=== PATIENT | male | born 1950 | race Caucasian/White ===

== ENCOUNTER 2016-05-13 09:33 | Inpatient (IN) | payer MEDICARE ==
[2016-05-07 15:48] VITALS: BMI 16.2
[~2016-05-13 09:33] MED LIST: DEXAMETHASONE SOD PHOSPHATE 10 MG/ML 1 ML VIAL IV ONE; LACTATED RINGERS 1,000 ML IV SCH; LIDOCAINE 1% 20 ML VIAL (10MG/ML) FOR IV START INTRADERMA PRN; ONDANSETRON 4 MG/2 ML VIAL IVP ONE; SCOPOLAMINE 1.5MG/72HR PATCH TRANSDERM ONE
[2016-05-13 10:24] LABS: Glucose,Whole Blood 110 mg/dL (75-99)
[2016-05-13] MEDS ORDERED: LIDOCAINE 1% INJ 10MG/ML (20 ML MDV) ONE (10:33)
[2016-05-13] MEDS ORDERED: MIDAZOLAM 2 MG/2 ML VIAL ONE (10:33)
[2016-05-13] MEDS ORDERED: fentaNYL (PF) 50 MCG/ML 2 ML AMP ONE (10:33)
[2016-05-13] MEDS ORDERED: HYDROmorphone (PF) 1 MG/ML ONE (10:33)
[2016-05-13] MEDS ORDERED: PROPOFOL 10 MG/ML 20 ML VIAL IV ONE (10:33)
[2016-05-13] MEDS ORDERED: ePHEDrine 50 MG/ML 1 ML AMP ONE (10:33)
--- NOTE | 2016-05-13 11:38 | P.OP ---
Date of Procedure: 05/13/16 Preoperative Diagnosis: Left pxhny-hke-egvr amputation site dehiscence Postoperative Diagnosis: Left kmopq-zfm-wszv amputation site dehiscence Procedure(s) Performed: Revision of left hnjyc-wqo-digp amputation Anesthesia: DILSHADA Surgeon: Molina Dasilva Estimated Blood Loss (ml): 50 Pathology: other (Small section of left femur bone) Condition: stable Disposition: same day Description of Procedure: Patient was brought to the operating room electively for revision of a left cberw-gqg-ldvo amputation he had previous problems after his amputation of infection and he dehisced his wound and there was protrusion of the femur. After long course of antibiotics and drainage of the patient was brought electively today for revision under general anesthesia was prepped and draped and the previous incision is opened down to the level of the femur and we retracted back to subcutaneous tissue musculature off of the femur femur bone was really resected removing about 3 inches of femur and fashioned appropriately anteriorly with a power saw so that it was smooth the wound was irrigated extensively with antibiotics and irrigation and then reclosed in layers with 0 and 2-0 Vicryl sutures and soledad were used on the skin all needle sponge and addition counts were [facility] operative report on patient Baldev Dasilva dictating
[2016-05-13] MEDS: HYDROmorphone 1 MG/ML 1 ML SYRINGE IVP PRN ×5 (11:40→13:43)
[2016-05-13 11:46] VITALS: TEMP 97
[2016-05-13] MEDS: MIDAZOLAM 2 MG/2 ML VIAL IV PRN ×2 (11:50→11:53)
[2016-05-13 12:00] LABS: Glucose,Whole Blood 132 mg/dL (75-99)
[2016-05-13] MEDS: MEPERIDINE 50 MG/ML SYRINGE IVP ONE ×2 (12:25→12:35)
[2016-05-13] MEDS ORDERED: HYDROmorphone 1 MG/ML 1 ML SYRINGE IVP ONE (13:11)
[2016-05-13 14:21] VITALS: BP 139/72; PULSE 88; RESP 20
--- NOTE | 2016-07-03 09:52 | P.DS ---
Providers Date of admission: 05/13/16 09:33 Attending physician: Molina Dasilva Primary care physician: Fidencio Barrientos [facility] Course: FINAL DIAGNOSIS: 1.[Left wmawh-svv-okvo amputation site dehiscence] 2.[History of gangrene left below the knee stump, nonhealing ulcer to his left stump] 3.[Diabetes mellitus type 2] 4.[Peripheral vascular disease, status post multiple lower extremity stents] 5.[Coronary artery disease, history of myocardial infarction in 2003] 6.[Chronic obstructive pulmonary disease] 7.[Hypertension] 8.[Osteoarthritis] 9.[Nicotine dependence] 10.[Gastroesophageal reflux disease] 11.[Depression] 12.[Chronic pain syndrome] PRINCIPAL PROCEDURE: 1.[ReVision of left zfjba-zyx-qjwp amputation] HISTORY OF PRESENT ILLNESS: [This is a 65-year-old gentleman who is followed by Dr. Fidencio Barrientos on an outpatient basis. On 03/03/2016 the patient underwent elective left fiexr-cbd-tbue amputation. During his recovery from the left qtyxr-wca-bzui amputation the patient developed a dehiscence and infection to his left stump site. The patient underwent a long course of antibiotics and drainage to his left stump. Subsequently it was discussed and recommended to the patient he undergo an elective revision of his amputation site.] HOSPITAL COURSE:[The patient was admitted to the hospital after obtaining consent underwent elective revision of his left above the knee amputation site. The patient was recovered and subsequently discharged from the hospital with further wound care instructions.] COMPLICATIONS: [There were no postoperative complications.] DISCHARGE INSTRUCTIONS: 1. Daily dressing changes as prior to surgery. 2. Call Dr. Arreaga for fever greater than 10 1F, redness. 3. [facility]. FOLLOW-UP APPOINTMENTS: 1.[With Dr. Arreaga on 05/21/2016 at 9:45 AM] Plan - Discharge Summary Discharge Medication List Aspirin 81 mg PO DAILY 01/14/14 [History] DULoxetine HCL [Cymbalta] 60 mg PO W/SUPPER 01/14/14 [History] Gabapentin [Neurontin] 300 mg PO TID 01/14/14 [History] Lisinopril [Prinivil] 20 mg PO QAM 01/14/14 [History] metFORMIN HCL [Glucophage] 500 mg PO BID 01/14/14 [History] ALPRAZolam [Xanax] 1 mg PO DAILY PRN 04/02/15 [History] B Complex-Vit C-Vit E-Zinc [Z-Bec] 1 tab PO DAILY 04/02/15 [History] Melatonin 10 mg PO HS PRN 04/02/15 [History] Meloxicam [Mobic] 15 mg PO DAILY 04/02/15 [History] Omeprazole [PriLOSEC] 20 mg PO BID 04/02/15 [History] Wheat Dextrin [Benefiber] 1 pack PO DAILY PRN 04/02/15 [History] Albuterol Sulfate [Proair Hfa] 1 - 2 puff INHALATION RT-Q6H PRN 06/27/15 [ History] Hydrocodone/Acetaminophen [[place] 10-325] 1 tab PO Q6H PRN 06/27/15 [History] Ergocalciferol [Vitamin D2 (DRISDOL)] 50,000 unit PO TU 01/13/16 [History] Morphine Sulfate [Ms Contin] 30 mg PO Q8HR 01/13/16 [History] amLODIPine [Norvasc] 5 mg PO QAM tab 03/06/16 [Rx] Amoxic-Pot Clav 875-125Mg [Augmentin 875-125] 1 tab PO Q12HR 04/20/16 [History] Follow up Appointment(s)/Referral(s): Bolivar Arreaga DO [Doctor of Osteopathic Medicine] - 05/21/16 9:45 am Patient Instructions/Handouts: *Surgery [facility] - (Anesthesia) Discharge Instructions Outpatient Surgery Activity/Diet/Wound Care/Special Instructions: PT TO CONTINUE DAILY DRESSING CHANGES PRIOR TO SURGERY. NOTIFY ANY FEVER GREATER THAN 101,REDDNESS. PT ALREADY HAS NURSE FROM [facility] CHECKING WOUND. Discharge Disposition: HOME SELF-CARE
== END 2016-05-13 14:33 | disposition home or self-care (01) | DRG 476 ==
LOC: 2ORMAIN 09:33 → EDSTATUS 10:30
PROVIDERS: ADMIT Thoracic Surgery (Cardiothoracic Vascular Surgery); ATTEND Thoracic Surgery (Cardiothoracic Vascular Surgery)
PROC: 0Y6D0Z3 Detachment at Left Upper Leg, Low, Open Approach (ICD-10-PCS; principal; 2016-05-13 10:30)
DX: T87.81 Dehiscence of amputation stump (principal); J44.9 Chronic obstructive pulmonary disease, unspecified; E11.51 Type 2 diabetes mellitus with diabetic peripheral angiopathy without gangrene; I10 Essential (primary) hypertension; G89.4 Chronic pain syndrome; F32.9 Major depressive disorder, single episode, unspecified; M19.90 Unspecified osteoarthritis, unspecified site; I25.10 Atherosclerotic heart disease of native coronary artery without angina pectoris; I25.2 Old myocardial infarction; K21.9 Gastro-esophageal reflux disease without esophagitis; F17.200 Nicotine dependence, unspecified, uncomplicated; F12.90 Cannabis use, unspecified, uncomplicated; Z79.2 Long term (current) use of antibiotics; Z88.1 Allergy status to other antibiotic agents; Z79.84 Long term (current) use of oral hypoglycemic drugs; Z79.891 Long term (current) use of opiate analgesic; Z79.899 Other long term (current) drug therapy; Z95.820 Peripheral vascular angioplasty status with implants and grafts; Z86.19 Personal history of other infectious and parasitic diseases
CPT/HCPCS: 87070; 87075; 87205; 88307; 88311

== ENCOUNTER 2018-06-13 13:05 | Inpatient (IN) | payer MEDICARE ==
[2018-06-13] MEDS ORDERED: SODIUM CHLORIDE 0.9% 1,000 ML IV STA (13:39)
[2018-06-13] MEDS ORDERED: VANCOMYCIN IV PER PHARMACY 1 EACH MISC MISCELLANE PRN ×2 (14:03→16:51)
[2018-06-13] MEDS ORDERED: VANCOMYCIN 1,000 MG in SODIUM CHLORIDE 0.9% 250 ML IVPB STA (14:07)
[2018-06-13] MEDS ORDERED: ceFAZolin 1,000 MG in DEXTROSE/WATER 1 50ML.BAG IVPB STA (14:10)
--- NOTE | 2018-06-13 14:56 | ED ---
General Adult HPI - General Chief complaint: Skin/Abscess/Foreign Body Stated complaint: abscess on buttocks Time Seen by Provider: 06/13/18 13:38 Source: patient, RN notes reviewed, old records reviewed Mode of arrival: wheelchair Limitations: no limitations, physical limitation - History of Present Illness Initial comments: 68-year-old male patient with past medical history of hypertension, type 2 diabetes, fournies gangrene, L below knee amputation presents to ED with abscess on left gluteal region. Patient is this ongoing for approximately one week. Patient states that his gun much larger within the past week. Patient states that he has not had any nausea vomiting or diarrhea, fevers or chills. Patient denies any chest pain, shortness of breath, abdominal pain. Systemic: Pt denies fatigue, myalgia, fever/chills, rash. Pt denies weakness, night sweats, weight loss. Neuro: Pt denies headache, visual disturbances, syncope or pre-syncope. HEENT: Pt denies ocular discharge or irritation, otalgia, rhinorrhea, pharyngitis or notable lymphadenopathy. Cardiopulmonary: Pt denies chest pain, SOB, heart palpitations, dyspnea on exertion. Abdominal/GI: Pt denies abdominal pain, n/v/d. : Pt denies dysuria, burning w/ urination, frequency/urgency. Denies new onset urinary or bowel incontinence. MSK: Pt denies myalgia, loss of strength or function in extremities. Neuro: Pt denies new onset weakness, paresthesias. - Related Data Home Medications Medication Instructions Recorded Confirmed Aspirin 81 mg PO DAILY 01/14/14 06/13/18 DULoxetine HCL [Cymbalta] 60 mg PO W/SUPPER 01/14/14 06/13/18 Gabapentin [Neurontin] 300 mg PO TID 01/14/14 06/13/18 Lisinopril [Prinivil] 20 mg PO QAM 01/14/14 06/13/18 metFORMIN HCL [Glucophage] 500 mg PO BID 01/14/14 06/13/18 ALPRAZolam [Xanax] 1 mg PO HS PRN 04/02/15 06/13/18 B Complex-Vit C-Vit E-Zinc [Z-Bec] 1 tab PO DAILY 04/02/15 06/13/18 Omeprazole [PriLOSEC] 20 mg PO BID 04/02/15 06/13/18 Hydrocodone/Acetaminophen [[place] 1 tab PO Q6H PRN 06/27/15 06/13/18 10-325] Escitalopram [Lexapro] 10 mg PO DAILY 06/13/18 06/13/18 L.acidoph,Paracasei, B.lactis 1 cap PO DAILY 06/13/18 06/13/18 [Probiotic] Pantoprazole Sodium [Protonix] 40 mg PO DAILY 06/13/18 06/13/18 Simethicone [Gas-X] 125 mg PO DAILY PRN 06/13/18 06/13/18 amLODIPine [Norvasc] 5 mg PO DAILY 06/13/18 06/13/18 buPROPion XL [Wellbutrin Xl] 150 mg PO DAILY 06/13/18 06/13/18 fentaNYL 100MCG/HR PATCH 100 mcg TRANSDERM Q72H 06/13/18 06/13/18 [Duragesic 100MCG/HR] Allergies Allergy/AdvReac Type Severity Reaction Status Date / Time azithromycin [From Zithromax] Allergy Rash/Hives Verified 06/13/18 13:50 Review of Systems ROS Statement: Those systems with pertinent positive or pertinent negative responses have been documented in the HPI. ROS Other: All systems not noted in ROS Statement are negative. Past Medical History Past Medical History: COPD, Diabetes Mellitus, Hypertension, Myocardial Infarction (NM), Osteoarthritis (OA), Vascular Disorder Additional Past Medical History / Comment(s): hx migraines, hx shingles,"flesh eatting bacterial infection to scrotom" 03/2015, chronic back pain, lt. 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 left testicle removed. heart stent x1 Past Anesthesia/Blood Transfusion Reactions: No Reported Reaction Date of Last Stent Placement:: 2006 Past Psychological History: Depression Smoking Status: Current every day smoker Past Alcohol Use History: None Reported Past Drug Use History: Marijuana - Past Family History Sister(s) Family Medical History: Cancer Additional Family Medical History / Comment(s): double mastectomy, still surviving Father Family Medical History: No Reported History Mother Family Medical History: No Reported History Additional Family Medical History / Comment(s): hpoglycemia General Exam - General Exam Comments Initial Comments: Constitutional: NAD, AOX3, Pt has pleasant affect. HEENT: NC/AT, trachea midline, neck supple, no lymphadenopathy. Posterior pharynx non erythematous, without exudates. External ears appear normal, without discharge. Mucous membranes moist. Eyes PERRLA, EOM intact. There is no scleral icterus. No pallor noted. Cardiopulmonary: RRR, no murmurs, rubs or gallops, no JVD noted. Lungs CTAB in anterior and posterior michel. No peripheral edema. Abdominal exam: Abdomen soft and non-distended. Abdomen non-tender to palpation in all 4 quadrants. Bowel sounds active in LLQ. No hepatosplenomegaly. No ecchymosis Neuro: CN II-XII grossly intact. No nuchal rigidity. MSK: left gluteal region approximately 5x5cm area of erythema, tenderness to palpation, no real area or induration or fluctuance. Limitations: no limitations, physical limitation Course Vital Signs 06/13/18 06/13/18 06/13/18 13:19 15:55 17:06 Temperature 99.3 F 98.6 F Pulse Rate 106 H 95 94 Respiratory 18 16 16 Rate Blood Pressure 145/70 145/50 146/80 O2 Sat by Pulse 95 95 93 L Oximetry 06/13/18 18:53 Temperature Pulse Rate 101 H Respiratory 16 Rate Blood Pressure 146/50 O2 Sat by Pulse 93 L Oximetry Medical Decision Making - Medical Decision Making 68-year-old male patient with past medical history of hypertension, type 2 diabetes, fournies gangrene, L below knee amputation presents to ED with abscess on left gluteal region. Patient is this ongoing for approximately one week. Patient states that his gun much larger within the past week. Patient states that he has not had any nausea vomiting or diarrhea, fevers or chills. Patient denies any chest pain, shortness of breath, abdominal pain. Pt VSS, afebrile. PHysical exam displayed: Left gluteal region approximately 5x5cm area of erythema, tenderness to palpation, no real area or induration or fluctuance. Laboratory investigations revealed leukocytosis of 20.7. CMP non-impressive. Lactic acid within normal limits. UA negative. CT of pelvis displayed a likely abscess measuring 6 by 2 x 2 centimeters. Patient administered 1 g of Cefzil and. Patient then started on Unasyn and vancomycin. Patient to be admitted for further evaluation and surgery consult. Case discussed with Dr. Goncalves. - Lab Data Result diagrams: 06/13/18 14:00 06/13/18 14:00 Lab Results 06/13/18 06/13/18 06/13/18 Range/Units 14:00 14:00 16:10 WBC 22.7 H (3.8-10.6) k/uL RBC 4.50 (4.30-5.90) m/uL Hgb 11.5 L (13.0-17.5) gm/dL Hct 36.8 L (39.0-53.0) % MCV 81.7 (80.0-100.0) fL MCH 25.6 (25.0-35.0) pg MCHC 31.4 (31.0-37.0) g/dL RDW 17.3 H (11.5-15.5) % Plt Count 414 (150-450) k/uL Neutrophils % 91 % Lymphocytes % 3 % Monocytes % 5 % Eosinophils % 0 % Basophils % 0 % Neutrophils # 20.7 H (1.3-7.7) k/uL Lymphocytes # 0.6 L (1.0-4.8) k/uL Monocytes # 1.1 H (0-1.0) k/uL Eosinophils # 0.0 (0-0.7) k/uL Basophils # 0.0 (0-0.2) k/uL Hypochromasia Moderate Anisocytosis Slight Microcytosis Slight Sodium 134 L (137-145) mmol/L Potassium 4.7 (3.5-5.1) mmol/L Chloride 98 (98-107) mmol/L Carbon Dioxide 26 (22-30) mmol/L Anion Gap 10 mmol/L BUN 38 H (9-20) mg/dL Creatinine 0.78 (0.66-1.25) mg/dL Est GFR (CKD-EPI)AfAm >90 (>60 ml/min/1.73 sqM) Est GFR (CKD-EPI)NonAf >90 (>60 ml/min/1.73 sqM) Glucose 106 H (74-99) mg/dL Plasma Lactic Acid Miek (0.7-2.0) mmol/L Calcium 8.9 (8.4-10.2) mg/dL Total Bilirubin 0.7 (0.2-1.3) mg/dL AST 16 L (17-59) U/L ALT 22 (21-72) U/L Alkaline Phosphatase 75 (38-126) U/L Total Protein 6.9 (6.3-8.2) g/dL Albumin 3.5 (3.5-5.0) g/dL Urine Color Yellow Urine Appearance Clear (Clear) Urine pH 5.0 (5.0-8.0) Ur Specific [place] 1.019 (1.001-1.035) Urine Protein Trace H (Negative) Urine Glucose (UA) Negative (Negative) Urine Ketones Negative (Negative) Urine Blood Negative (Negative) Urine Nitrite Negative (Negative) Urine Bilirubin Negative (Negative) Urine Urobilinogen <2.0 (<2.0) mg/dL Ur Leukocyte Esterase Negative (Negative) 06/13/18 Range/Units 17:10 WBC (3.8-10.6) k/uL RBC (4.30-5.90) m/uL Hgb (13.0-17.5) gm/dL Hct (39.0-53.0) % MCV (80.0-100.0) fL MCH (25.0-35.0) pg MCHC (31.0-37.0) g/dL RDW (11.5-15.5) % Plt Count (150-450) k/uL Neutrophils % % Lymphocytes % % Monocytes % % Eosinophils % % Basophils % % Neutrophils # (1.3-7.7) k/uL Lymphocytes # (1.0-4.8) k/uL Monocytes # (0-1.0) k/uL Eosinophils # (0-0.7) k/uL Basophils # (0-0.2) k/uL Hypochromasia Anisocytosis Microcytosis Sodium (137-145) mmol/L Potassium (3.5-5.1) mmol/L Chloride (98-107) mmol/L Carbon Dioxide (22-30) mmol/L Anion Gap mmol/L BUN (9-20) mg/dL Creatinine (0.66-1.25) mg/dL Est GFR (CKD-EPI)AfAm (>60 ml/min/1.73 sqM) Est GFR (CKD-EPI)NonAf (>60 ml/min/1.73 sqM) Glucose (74-99) mg/dL Plasma Lactic Acid Mike 0.9 (0.7-2.0) mmol/L Calcium (8.4-10.2) mg/dL Total Bilirubin (0.2-1.3) mg/dL AST (17-59) U/L ALT (21-72) U/L Alkaline Phosphatase (38-126) U/L Total Protein (6.3-8.2) g/dL Albumin (3.5-5.0) g/dL Urine Color Urine Appearance (Clear) Urine pH (5.0-8.0) Ur Specific [place] (1.001-1.035) Urine Protein (Negative) Urine Glucose (UA) (Negative) Urine Ketones (Negative) Urine Blood (Negative) Urine Nitrite (Negative) Urine Bilirubin (Negative) Urine Urobilinogen (<2.0) mg/dL Ur Leukocyte Esterase (Negative) Disposition Clinical Impression: Abscess Disposition: ADMITTED IP TO THIS HOSP Condition: Serious Is patient prescribed a controlled substance at d/c from ED?: No
[2018-06-13 14:57] LABS: Anisocytosis Slight; Basophils % (A) 0 %; Eosinophils % (A) 0 %; HCT 36.8 % (39.0-53.0); HGB 11.5 gm/dL (13.0-17.5); Hypochromasia Moderate; Lymphocytes # (A) 0.6 k/uL (1.0-4.8); Lymphocytes % (A) 3 %; MCH 25.6 pg (25.0-35.0); MCHC 31.4 g/dL (31.0-37.0); MCV 81.7 fL (80.0-100.0); Mean Platelet Volume 7.3; Microcytosis Slight; Monocytes # (A) 1.1 k/uL (0-1.0); Monocytes % (A) 5 %; Neutrophils # (A) 20.7 k/uL (1.3-7.7); Neutrophils % (A) 91 %; Platelet Count 414 k/uL (150-450); RDW 17.3 % (11.5-15.5); WBC 22.7 k/uL (3.8-10.6)
[2018-06-13 15:10] LABS: ALT 22 U/L (21-72); AST 16 U/L (17-59); Albumin 3.5 g/dL (3.5-5.0); Alkaline Phosphatase 75 U/L (38-126); Anion Gap 10 mmol/L; Blood Urea Nitrogen 38 mg/dL (9-20); Calcium 8.9 mg/dL (8.4-10.2); Carbon Dioxide 26 mmol/L (22-30); Chloride 98 mmol/L (98-107); Glucose 106 mg/dL (74-99); Potassium 4.7 mmol/L (3.5-5.1); Sodium 134 mmol/L (137-145); Total Bilirubin 0.7 mg/dL (0.2-1.3); Total Protein 6.9 g/dL (6.3-8.2)
--- NOTE | 2018-06-13 16:13 | CT ---
EXAMINATION TYPE: CT pelvis w con DATE OF EXAM: 06/13/2018 COMPARISON: None HISTORY: Left sided buttock swelling CT DLP: 447.1 mGycm Automated exposure control for dose reduction was used. TECHNIQUE: Helical acquisition of images from the lung bases through the pelvis have been completed. CONTRAST: Performed without Oral Contrast and with IV Contrast, patient injected with 100 mL of Isovue 300. FINDINGS: There is abnormal increased soft tissue attenuation at the level of the posterior pelvis, l eft gluteal region, some increased subcutaneous fat density with suggestion of an oval area of lower attenuation measuring approximately 6 x 2 x 2 cm a personal financial representative an underlying phlegmon or abscess c oursing posterior and inferior to the left ischial tuberosity. AORTA: No significant abnormality is appreciated. Dense iliac calcifications are present. REPRODUCTIVE ORGANS: Prostate shows associated calcifications BOWEL: No significant abnormality is seen. FREE AIR: No Free Air visible. ASCITES: None visible. PELVIC ADENOPATHY: None visualized. RETROPERITONEAL ADENOPATHY: No Retroperitoneal Adenopathy visible. URINARY BLADDER: No significant abnormality is seen. OSSEOUS STRUCTURES: No significant abnormality is seen. IMPRESSION: SUSPECT UNDERLYING ABSCESS, PHLEGMON DESCRIBED.
[2018-06-13 16:23] LABS: Appearance,Urine Clear (Clear); Bilirubin,Urine Negative (Negative); Blood,Urine Negative (Negative); Color,Urine Yellow; Glucose,Urine (UA) Negative (Negative); Ketones,Urine Negative (Negative); Leukocyte Esterase,Urine Negative (Negative); Nitrite,Urine Negative (Negative); Protein,Urine Trace (Negative); Specific Gravity,Urine 1.019 (1.001-1.035); Urobilinogen,Urine <2.0 mg/dL (<2.0)
[2018-06-13] MEDS ORDERED: NALOXONE 0.4 MG/ML 1 ML VIAL IV PRN (17:19)
[2018-06-13] MEDS ORDERED: ACETAMINOPHEN TAB 325 MG TAB PO PRN (17:19)
[2018-06-13] MEDS ORDERED: IBUPROFEN 400 MG TAB PO PRN (17:19)
[2018-06-13] MEDS: AMPICILLIN-SULBACTAM 3 GM in SODIUM CHLORIDE 0.9% 100 ML IVPB SCH ×2 (18:03→23:22)
[2018-06-13] MEDS ORDERED: HYDROcodone/APAP 10-325MG 1 EACH TAB PO ONE (18:49)
[2018-06-13] MEDS: VANCOMYCIN 1,000 MG in SODIUM CHLORIDE 0.9% 250 ML IVPB STA ×2 (18:52→19:52)
[2018-06-13 21:00] LABS: Glucose,Whole Blood 109 mg/dL (75-99)
[2018-06-13] MEDS: metFORMIN 500 MG TAB PO SCH (21:23)
[2018-06-13] MEDS: DULoxetine HCL 60 MG CAPSULE.DR PO SCH (21:23)
[2018-06-13] MEDS: HYDROmorphone 0.5 MG/0.5 ML SYRINGE IVP PRN (21:23)
[2018-06-13] MEDS: GABAPENTIN 300 MG CAP PO SCH (21:23)
[2018-06-13] MEDS: NICOTINE 21MG/24HR PATCH TRANSDERM SCH (21:23)
[2018-06-13] MEDS: CLOTRIMAZOLE 1% CREAM 15 GM TUBE TOPICAL SCH (22:14)
[2018-06-14] MEDS: VANCOMYCIN 1,000 MG in SODIUM CHLORIDE 0.9% 250 ML IVPB SCH ×3 (00:45→17:49)
[2018-06-14 07:32] LABS: Glucose,Whole Blood 105 mg/dL (75-99)
[2018-06-14] MEDS: metFORMIN 500 MG TAB PO SCH ×2 (08:02→17:50)
[2018-06-14] MEDS: AMPICILLIN-SULBACTAM 3 GM in SODIUM CHLORIDE 0.9% 100 ML IVPB SCH ×3 (08:03→23:04)
[2018-06-14] MEDS: HYDROcodone/APAP 10-325MG 1 EACH TAB PO PRN ×2 (08:04→20:06)
[2018-06-14] MEDS: amLODIPine 5 MG TAB PO SCH (08:04)
[2018-06-14] MEDS: LISINOPRIL 20 MG TAB PO SCH (08:04)
[2018-06-14] MEDS: NICOTINE 21MG/24HR PATCH TRANSDERM SCH (08:04)
[2018-06-14] MEDS: PANTOPRAZOLE 40 MG TABLET PO SCH (08:04)
[2018-06-14] MEDS: ASPIRIN 81 MG PO SCH (08:04)
[2018-06-14] MEDS: ESCITALOPRAM 10 MG TAB PO SCH (08:04)
[2018-06-14] MEDS: GABAPENTIN 300 MG CAP PO SCH ×3 (08:06→21:04)
[2018-06-14] MEDS: buPROPion XL 150 MG TAB.ER.24H PO SCH (08:07)
[2018-06-14] MEDS: CLOTRIMAZOLE 1% CREAM 15 GM TUBE TOPICAL SCH ×2 (08:19→21:19)
[2018-06-14] MEDS ORDERED: NON-FORMULARY DRUG (B Complex-Vit C-Vit E-Zinc 1 TAB) PO SCH (09:00)
[2018-06-14 09:02] LABS: Anisocytosis Slight; Basophils % (A) 0 %; Eosinophils # (A) 0.1 k/uL (0-0.7); Eosinophils % (A) 0 %; HCT 36.1 % (39.0-53.0); Hypochromasia Moderate; Lymphocytes # (A) 0.9 k/uL (1.0-4.8); Lymphocytes % (A) 7 %; MCH 25.1 pg (25.0-35.0); MCHC 30.4 g/dL (31.0-37.0); MCV 82.5 fL (80.0-100.0); Mean Platelet Volume 7.1; Monocytes # (A) 0.7 k/uL (0-1.0); Monocytes % (A) 5 %; Neutrophils # (A) 12.2 k/uL (1.3-7.7); Neutrophils % (A) 87 %; Platelet Count 385 k/uL (150-450); RBC 4.38 m/uL (4.30-5.90); RDW 17.1 % (11.5-15.5); WBC 14.1 k/uL (3.8-10.6)
[2018-06-14 09:26] LABS: ALT 25 U/L (21-72); AST 13 U/L (17-59); Alkaline Phosphatase 64 U/L (38-126); Anion Gap 5 mmol/L; Blood Urea Nitrogen 26 mg/dL (9-20); Calcium 8.9 mg/dL (8.4-10.2); Carbon Dioxide 30 mmol/L (22-30); Chloride 103 mmol/L (98-107); Glucose 98 mg/dL (74-99); Potassium 4.9 mmol/L (3.5-5.1); Sodium 138 mmol/L (137-145); Total Bilirubin 0.4 mg/dL (0.2-1.3); Total Protein 6.1 g/dL (6.3-8.2)
[2018-06-14] MEDS: HYDROmorphone 0.5 MG/0.5 ML SYRINGE IVP PRN ×2 (09:44→21:04)
--- NOTE | 2018-06-14 10:34 | P.HPIM ---
History of Present Illness H&P Date: 06/14/18 Chief Complaint: Possible left gluteal abscess This is a 68-year-old male with a known history of hypertension, diabetes, peripheral vascular disease with a left below-knee amputation, myocardial infarction, coronary artery disease with previous cardiac stents, COPD, nicotine dependence, necrotizing fasciitis of the left groin and scrotum with left orchiectomy. Patient reports he is mostly wheelchair bound and does get pressure sores on his buttocks area. Reports the left gluteal area had a small red bump noted about a week ago. And over the weekend the size continued to increase and became sore. He denies any injury to the area there's been no drainage or cuts noted. He presented to the ER for further evaluation and treatment white count elevated at 22.7 BUN 38 lactic acid normal at 0.9 was given a dose of IV Kefzol and then started on IV Unasyn and IV vancomycin in the ER. Infectious disease and surgical service were consulted. Patient did have a computed tomography scan of the pelvis showing suspected underlying abscess or phlegmon. CAT scan shows abnormal increased soft tissue attenuation at the level of the posterior pelvis, left gluteal region, some increased subcutaneous fat density with suggestion of an oval area of the lower attenuation measuring approximate 6 x 2 x 2 cm representing an underlying phlegmon or abscess coursing posterior and inferior to the left ischial tuberosity. Patient also had evidence of urinary retention and Russo catheter was inserted. He had retained 800. Patient reports low-grade temps of 99 at home as well as chills. Denies any nausea or vomiting, bowel movement changes, denies any chest pain or short ness of breath. Denies any burning with urination. Review of Systems Please refer to HPI otherwise unremarkable Past Medical History Past Medical History: COPD, Diabetes Mellitus, Hypertension, Myocardial Infarction ([place]), Osteoarthritis ([place]), Vascular Disorder Additional Past Medical History / Comment(s): hx migraines, hx shingles,"flesh eatting bacterial infection to scrotom" 03/2015, chronic back pain, lt. knee wound Last Myocardial Infarction Date:: 2003 History of Any Multi-Drug Resistant Organisms: MRSA Date of last positivie culture/infection: 04/02/16 MDRO Source:: LT KNEE WOUND Past Surgical History: Heart Catheterization With Stent, Orthopedic Surgery Additional Past Surgical History / Comment(s): STENTS TO LEFT GROIN, LEFT BELOW THE KNEE AMPUTATION, unsuccessful revascularization left leg, shoulder surgery, surgical debridement of necrotic tissue left scrotal area, LT AKA 03/03/16. left testicle removed. heart stent x1 Past Anesthesia/Blood Transfusion Reactions: No Reported Reaction Date of Last Stent Placement:: 2006 Past Psychological History: Depression Smoking Status: Current every day smoker Past Alcohol Use History: None Reported Past Drug Use History: Marijuana - Past Family History Sister(s) Family Medical History: Cancer Additional Family Medical History / Comment(s): double mastectomy, still surviving Father Family Medical History: No Reported History Mother Family Medical History: No Reported History Additional Family Medical History / Comment(s): hpoglycemia Medications and Allergies Home Medications Medication Instructions Recorded Confirmed Type Aspirin 81 mg PO DAILY 01/14/14 06/13/18 History DULoxetine HCL [Cymbalta] 60 mg PO W/SUPPER 01/14/14 06/13/18 History Gabapentin [Neurontin] 300 mg PO TID 01/14/14 06/13/18 History Lisinopril [Prinivil] 20 mg PO QAM 01/14/14 06/13/18 History metFORMIN HCL [Glucophage] 500 mg PO BID 01/14/14 06/13/18 History ALPRAZolam [Xanax] 1 mg PO HS PRN 04/02/15 06/13/18 History B Complex-Vit C-Vit E-Zinc [Z-Bec] 1 tab PO DAILY 04/02/15 06/13/18 History Omeprazole [PriLOSEC] 20 mg PO BID 04/02/15 06/13/18 History Hydrocodone/Acetaminophen [[place] 1 tab PO Q6H PRN 06/27/15 06/13/18 History 10-325] Escitalopram [Lexapro] 10 mg PO DAILY 06/13/18 06/13/18 History L.acidoph,Paracasei, B.lactis 1 cap PO DAILY 06/13/18 06/13/18 History [Probiotic] Pantoprazole Sodium [Protonix] 40 mg PO DAILY 06/13/18 06/13/18 History Simethicone [Gas-X] 125 mg PO DAILY PRN 06/13/18 06/13/18 History amLODIPine [Norvasc] 5 mg PO DAILY 06/13/18 06/13/18 History buPROPion XL [Wellbutrin Xl] 150 mg PO DAILY 06/13/18 06/13/18 History fentaNYL 100MCG/HR PATCH 100 mcg TRANSDERM Q72H 06/13/18 06/13/18 History [Duragesic 100MCG/HR] Allergies Allergy/AdvReac Type Severity Reaction Status Date / Time azithromycin [From Zithromax] Allergy Rash/Hives Verified 06/13/18 13:50 Physical Exam Vitals: Vital Signs Temp Pulse Pulse Resp BP BP Pulse Ox 06/14/18 06:32 97.9 F 66 18 136/72 91 L 06/13/18 23:00 98.0 F 69 18 127/59 91 L 06/13/18 19:46 97.1 F L 86 18 126/60 93 L 06/13/18 18:53 101 H 16 146/50 93 L 06/13/18 17:06 94 16 146/80 93 L 06/13/18 15:55 98.6 F 95 16 145/50 95 06/13/18 13:19 99.3 F 106 H 18 145/70 95 Intake and Output 06/13/18 06/14/18 06/14/18 22:59 06:59 14:59 Intake Total 250 0 Output Total 1110 Balance -860 0 Intake: Oral 250 0 Output: Urine 1110 Uretheral (Russo) 1110 Other: # Voids 1 Head normocephalic Neck supple Lungs mild wheezing that improved with cough Heart regular rate and rhythm S1-S2, no rub or gallop Abdomen is soft nontender nondistended positive bowel sounds no hepatosplenomegaly Extremities no edema. Left below the knee amputation Neuro alert and orientated to 3 Skin left gluteal area is red there is a firm area about 5 cm in size. No rash or lesions or cuts noted. Tender with palpation patient also has some redness on the right gluteal area as well Results CBC & Chem 7: 06/14/18 08:10 06/14/18 08:46 Labs: Abnormal Lab Results - Last 24 Hours (Table) 06/13/18 06/13/18 06/13/18 Range/Units 14:00 14:00 16:10 WBC 22.7 H (3.8-10.6) k/uL Hgb 11.5 L (13.0-17.5) gm/dL Hct 36.8 L (39.0-53.0) % MCHC (31.0-37.0) g/dL RDW 17.3 H (11.5-15.5) % Neutrophils # 20.7 H (1.3-7.7) k/uL Lymphocytes # 0.6 L (1.0-4.8) k/uL Monocytes # 1.1 H (0-1.0) k/uL Sodium 134 L (137-145) mmol/L BUN 38 H (9-20) mg/dL Glucose 106 H (74-99) mg/dL POC Glucose (mg/dL) (75-99) mg/dL AST 16 L (17-59) U/L Total Protein (6.3-8.2) g/dL Albumin (3.5-5.0) g/dL Urine Protein Trace H (Negative) 06/13/18 06/14/18 06/14/18 Range/Units 20:54 07:16 08:10 WBC 14.1 H (3.8-10.6) k/uL Hgb 11.0 L (13.0-17.5) gm/dL Hct 36.1 L (39.0-53.0) % MCHC 30.4 L (31.0-37.0) g/dL RDW 17.1 H (11.5-15.5) % Neutrophils # 12.2 H (1.3-7.7) k/uL Lymphocytes # 0.9 L (1.0-4.8) k/uL Monocytes # (0-1.0) k/uL Sodium (137-145) mmol/L BUN (9-20) mg/dL Glucose (74-99) mg/dL POC Glucose (mg/dL) 109 H 105 H (75-99) mg/dL AST (17-59) U/L Total Protein (6.3-8.2) g/dL Albumin (3.5-5.0) g/dL Urine Protein (Negative) 06/14/18 Range/Units 08:46 WBC (3.8-10.6) k/uL Hgb (13.0-17.5) gm/dL Hct (39.0-53.0) % MCHC (31.0-37.0) g/dL RDW (11.5-15.5) % Neutrophils # (1.3-7.7) k/uL Lymphocytes # (1.0-4.8) k/uL Monocytes # (0-1.0) k/uL Sodium (137-145) mmol/L BUN 26 H (9-20) mg/dL Glucose (74-99) mg/dL POC Glucose (mg/dL) (75-99) mg/dL AST 13 L (17-59) U/L Total Protein 6.1 L (6.3-8.2) g/dL Albumin 3.0 L (3.5-5.0) g/dL Urine Protein (Negative) Thrombosis Risk Factor Assmnt - Choose All That Apply Any of the Below Risk Factors Present?: Yes Each Factor Represents 1 point: Abnormal pulmonary function (COPD), Acute [place] Other Risk Factors: Yes Each Risk Factor Represents 2 Points: Age 61-74 years Other congenital or acquired thrombophilia - If yes, enter type in comment: No Thrombosis Risk Factor Assessment Total Risk Factor Score: 4 Thrombosis Risk Factor Assessment Level: Moderate Risk Assessment and Plan Assessment: 1. Possible left gluteal abscess or phlegmon noted on computed tomography scan of pelvis. Patient currently on Unasyn and IV vancomycin. white count elevated at 22.7. Infectious disease and surgical service consulted. Blood culture pending 2. Urinary retention: Patient has Russo catheter inserted 3. Essential hypertension 4. COPD: Uses albuterol inhaler at home will add nebulizer treatments BID during hospitalization. check chest x-ray 5. Diabetes mellitus type 2 continue metformin and add sliding scale coverage. Check A1c 6. History of coronary artery disease and cardiac stents 7. History of myocardial infarction 8. History of peripheral vascular disease with left below the knee amputation 9. History of necrotizing fasciitis of the groin and scrotal area requiring left orchiectomy 10. Nicotine dependence: Discussed smoking cessation for greater than 3 minutes. Patient currently on Wellbutrin and nicotine patch GI prophylaxis Protonix and DVT prophylaxis SCDs. We will hold off on anticoagulation for DVT prophylaxis due to patient possibly having surgery Time with Patient: Greater than 30 (Greater than 50% of the total time spent in counseling and coordination of care.I performed an examination of the patient and discussed their management with the physician Labor Supervisor. I have reviewed the Physician Labor Supervisor's notes and agree with the documented findings and plan of care)
--- NOTE | 2018-06-14 11:08 | P.GSCN ---
<Hien Song - Last Filed: 06/14/18 11:01> History of Present Illness Consult date: 06/14/18 Reason for Consult: left buttock abscess Requesting physician: Gallo Caldera History of present illness: CHIEF COMPLAINT: Abscess in left gluteal region HISTORY OF PRESENT ILLNESS: 68-year-old male who presented to the emergency room due to increasing pain of his left buttocks. General surgery was consulted for further evaluation. The patient reports last Wednesday he noticed a small soft area on his left buttock. Initially, he did not think much of it but over the past week it has increased in size and has become tender and painful. He denies drainage of the area. He denies injury or trauma to region. He reports feeling feverish at home as well. WBC on admission 22.7. Repeat 14.1. He is on Unasyn and vancomycin. The patient has a history of necrotizing fasciitis of the left groin and scrotum and required left orchiectomy in 2014. Patient also reports having a left [id number] amputation in 2016. He reports he developed a MRSA infection and subsequently had a revision of his amputation to a left AKA. MEDICATIONS: See list. ALLERGIES: See list. SOCIAL HISTORY: Reports marijuana use. REVIEW OF SYSTEMS: CONSTITUTIONAL: Denies fever or chills. HEENT: Denies blurred vision, vision changes, or eye pain. Denies hemoptysis ENDOCRINE: Denies heat or cold intolerance. CARDIOVASCULAR: Denies chest pain or pressure. RESPIRATORY: No shortness of breath. GASTROINTESTINAL: Denies abdominal pain. Denies nausea or vomiting. NEURO: Denies history of seizures. PSYCH: No depression or suicidal ideation HEMATOLOGIC: Denies bleeding disorders. LYMPHATIC: The patient denies any lumps and bumps around the neck. GENITOURINARY: Denies any blood in urine or increased urinary frequency. MUSCULOSKELETAL: Denies myalgias. Denies joint swelling. Denies decreased range of motion beyond patients baseline. SKIN: Denies pruitis. Reports pain and tenderness to mass on left buttock PHYSICAL EXAM: VITAL SIGNS: Currently stable. GENERAL: Well-developed in no acute distress. HEENT: No sclera icterus. Extraocular movements grossly intact. Moist buccal mucosa. Head is atraumatic, normocephalic. Hears conversational speech. No nasal drainage. NECK: Supple without lymphadenopathy. CHEST: Non-labored respirations and equal bilateral excursions. CARDIOVASCULAR: Regular rate with regular rhythm. Palpable 2+ radial pulses. ABDOMEN: Soft. Nondistended. Nontender. MUSCULOSKELETAL: No clubbing, cyanosis or edema. Left AKA. NEUROLOGIC: No focal or lateralizing signs. Cranial nerves II through XII grossly intact. PSYCH: Appropriate affect. Alert and oriented to person, place and time. SKIN: Well perfused. Good skin turgor. Large firm area present to left buttock with surrounding erythema. No drainage noted. Tenderness upon palpation. IMAGING: CT pelvis: Abnormal increased soft tissue attenuation at the level of the posterior pelvis, left gluteal region, some increased subcutaneous fat density with suggestion of an oval area of lower attenuation measuring approximately 6 x 2 x 2 cm representing an underlying phlegmon or abscess coursing posterior and inferior to the left ischial tuberosity ASSESSMENT: 1. Left buttock abscess 2. Leukocytosis PLAN: 1. NPO 2. Patient to undergo I&D of left buttock abscess today with Dr. Luong 3. Continue antibiotics 4. ID on consult 5. Monitor WBC Nurse practitioner note has been reviewed by physician. Signing provider agrees with the documented findings, assessment, and plan of care. Past Medical History Past Medical History: COPD, Diabetes Mellitus, Hypertension, Myocardial Infarction ([place]), Osteoarthritis (OA), Vascular Disorder Additional Past Medical History / Comment(s): hx migraines, hx shingles,"flesh eatting bacterial infection to scrotom" 03/2015, chronic back pain, lt. knee wound Last Myocardial Infarction Date:: 2003 History of Any Multi-Drug Resistant Organisms: MRSA Year Discovered:: 04/02/16 MDRO Source:: LT KNEE WOUND Past Surgical History: Heart Catheterization With Stent, Orthopedic Surgery Additional Past Surgical History / Comment(s): STENTS TO LEFT GROIN, LEFT BELOW THE KNEE AMPUTATION, unsuccessful revascularization left leg, shoulder surgery, surgical debridement of necrotic tissue left scrotal area, LT AKA 03/03/16. left testicle removed. heart stent x1 Past Anesthesia/Blood Transfusion Reactions: No Reported Reaction Date of Last Stent Placement:: 2006 Past Psychological History: Depression Smoking Status: Current every day smoker Past Alcohol Use History: None Reported Past Drug Use History: Marijuana - Past Family History Sister(s) Family Medical History: Cancer Additional Family Medical History / Comment(s): double mastectomy, still surviving Father Family Medical History: No Reported History Mother Family Medical History: No Reported History Additional Family Medical History / Comment(s): hpoglycemia Medications and Allergies Home Medications Medication Instructions Recorded Confirmed Type Aspirin 81 mg PO DAILY 01/14/14 06/13/18 History DULoxetine HCL [Cymbalta] 60 mg PO W/SUPPER 01/14/14 06/13/18 History Gabapentin [Neurontin] 300 mg PO TID 01/14/14 06/13/18 History Lisinopril [Prinivil] 20 mg PO QAM 01/14/14 06/13/18 History metFORMIN HCL [Glucophage] 500 mg PO BID 01/14/14 06/13/18 History ALPRAZolam [Xanax] 1 mg PO HS PRN 04/02/15 06/13/18 History B Complex-Vit C-Vit E-Zinc [Z-Bec] 1 tab PO DAILY 04/02/15 06/13/18 History Omeprazole [PriLOSEC] 20 mg PO BID 04/02/15 06/13/18 History Hydrocodone/Acetaminophen [[place] 1 tab PO Q6H PRN 06/27/15 06/13/18 History 10-325] Escitalopram [Lexapro] 10 mg PO DAILY 06/13/18 06/13/18 History L.acidoph,Paracasei, B.lactis 1 cap PO DAILY 06/13/18 06/13/18 History [Probiotic] Pantoprazole Sodium [Protonix] 40 mg PO DAILY 06/13/18 06/13/18 History Simethicone [Gas-X] 125 mg PO DAILY PRN 06/13/18 06/13/18 History amLODIPine [Norvasc] 5 mg PO DAILY 06/13/18 06/13/18 History buPROPion XL [Wellbutrin Xl] 150 mg PO DAILY 06/13/18 06/13/18 History fentaNYL 100MCG/HR PATCH 100 mcg TRANSDERM Q72H 06/13/18 06/13/18 History [Duragesic 100MCG/HR] Allergies Allergy/AdvReac Type Severity Reaction Status Date / Time azithromycin [From Zithromax] Allergy Rash/Hives Verified 06/13/18 13:50 Surgical - Exam Vital Signs Temp Pulse Resp BP Pulse Ox 99.3 F 106 H 18 145/70 95 06/13/18 13:19 06/13/18 13:19 06/13/18 13:19 06/13/18 13:19 06/13/18 13:19 Results - Labs 06/14/18 08:10 06/14/18 08:46 Abnormal Lab Results - Last 24 Hours (Table) 06/13/18 06/13/18 06/13/18 Range/Units 14:00 14:00 16:10 WBC 22.7 H (3.8-10.6) k/uL Hgb 11.5 L (13.0-17.5) gm/dL Hct 36.8 L (39.0-53.0) % MCHC (31.0-37.0) g/dL RDW 17.3 H (11.5-15.5) % Neutrophils # 20.7 H (1.3-7.7) k/uL Lymphocytes # 0.6 L (1.0-4.8) k/uL Monocytes # 1.1 H (0-1.0) k/uL Sodium 134 L (137-145) mmol/L BUN 38 H (9-20) mg/dL Glucose 106 H (74-99) mg/dL POC Glucose (mg/dL) (75-99) mg/dL AST 16 L (17-59) U/L Total Protein (6.3-8.2) g/dL Albumin (3.5-5.0) g/dL Urine Protein Trace H (Negative) 06/13/18 06/14/18 06/14/18 Range/Units 20:54 07:16 08:10 WBC 14.1 H (3.8-10.6) k/uL Hgb 11.0 L (13.0-17.5) gm/dL Hct 36.1 L (39.0-53.0) % MCHC 30.4 L (31.0-37.0) g/dL RDW 17.1 H (11.5-15.5) % Neutrophils # 12.2 H (1.3-7.7) k/uL Lymphocytes # 0.9 L (1.0-4.8) k/uL Monocytes # (0-1.0) k/uL Sodium (137-145) mmol/L BUN (9-20) mg/dL Glucose (74-99) mg/dL POC Glucose (mg/dL) 109 H 105 H (75-99) mg/dL AST (17-59) U/L Total Protein (6.3-8.2) g/dL Albumin (3.5-5.0) g/dL Urine Protein (Negative) 06/14/18 Range/Units 08:46 WBC (3.8-10.6) k/uL Hgb (13.0-17.5) gm/dL Hct (39.0-53.0) % MCHC (31.0-37.0) g/dL RDW (11.5-15.5) % Neutrophils # (1.3-7.7) k/uL Lymphocytes # (1.0-4.8) k/uL Monocytes # (0-1.0) k/uL Sodium (137-145) mmol/L BUN 26 H (9-20) mg/dL Glucose (74-99) mg/dL POC Glucose (mg/dL) (75-99) mg/dL AST 13 L (17-59) U/L Total Protein 6.1 L (6.3-8.2) g/dL Albumin 3.0 L (3.5-5.0) g/dL Urine Protein (Negative) Diabetes panel 06/13/18 06/14/18 Range/Units 14:00 08:46 Sodium 134 L 138 (137-145) mmol/L Potassium 4.7 4.9 (3.5-5.1) mmol/L Chloride 98 103 (98-107) mmol/L Carbon Dioxide 26 30 (22-30) mmol/L BUN 38 H 26 H (9-20) mg/dL Creatinine 0.78 0.66 (0.66-1.25) mg/dL Glucose 106 H 98 (74-99) mg/dL Calcium 8.9 8.9 (8.4-10.2) mg/dL AST 16 L 13 L (17-59) U/L ALT 22 25 (21-72) U/L Alkaline Phosphatase 75 64 (38-126) U/L Total Protein 6.9 6.1 L (6.3-8.2) g/dL Albumin 3.5 3.0 L (3.5-5.0) g/dL Calcium panel 03/04/19 03/05/19 Range/Units 14:00 08:46 Calcium 8.9 8.9 (8.4-10.2) mg/dL Albumin 3.5 3.0 L (3.5-5.0) g/dL Pituitary panel 06/13/18 06/14/18 Range/Units 14:00 08:46 Sodium 134 L 138 (137-145) mmol/L Potassium 4.7 4.9 (3.5-5.1) mmol/L Chloride 98 103 (98-107) mmol/L Carbon Dioxide 26 30 (22-30) mmol/L BUN 38 H 26 H (9-20) mg/dL Creatinine 0.78 0.66 (0.66-1.25) mg/dL Glucose 106 H 98 (74-99) mg/dL Calcium 8.9 8.9 (8.4-10.2) mg/dL Adrenal panel 06/13/18 06/14/18 Range/Units 14:00 08:46 Sodium 134 L 138 (137-145) mmol/L Potassium 4.7 4.9 (3.5-5.1) mmol/L Chloride 98 103 (98-107) mmol/L Carbon Dioxide 26 30 (22-30) mmol/L BUN 38 H 26 H (9-20) mg/dL Creatinine 0.78 0.66 (0.66-1.25) mg/dL Glucose 106 H 98 (74-99) mg/dL Calcium 8.9 8.9 (8.4-10.2) mg/dL Total Bilirubin 0.7 0.4 (0.2-1.3) mg/dL AST 16 L 13 L (17-59) U/L ALT 22 25 (21-72) U/L Alkaline Phosphatase 75 64 (38-126) U/L Total Protein 6.9 6.1 L (6.3-8.2) g/dL Albumin 3.5 3.0 L (3.5-5.0) g/dL <Ganga Luong - Last Filed: 06/14/18 15:48> History of Present Illness History of present illness: As above. Patient with erythematous tender mass involving the left buttock. CAT scan findings as above. Patient with history of previous MRSA. Options reviewed with the patient. We'll proceed with incision and drainage at this time. Risks of bleeding, infection, wound formation, poor wound healing, osteomyelitis, potential need for additional surgery, progression of infection, and anesthesia related palpitations reviewed. He understands and wishes to proceed. Surgical - Exam Vital Signs Temp Pulse Resp BP Pulse Ox 99.3 F 106 H 18 145/70 95 06/13/18 13:19 06/13/18 13:19 06/13/18 13:19 06/13/18 13:19 06/13/18 13:19 Results - Labs 06/14/18 08:10 06/14/18 08:46 Abnormal Lab Results - Last 24 Hours (Table) 06/13/18 06/13/18 06/14/18 Range/Units 16:10 20:54 07:16 WBC (3.8-10.6) k/uL Hgb (13.0-17.5) gm/dL Hct (39.0-53.0) % MCHC (31.0-37.0) g/dL RDW (11.5-15.5) % Neutrophils # (1.3-7.7) k/uL Lymphocytes # (1.0-4.8) k/uL BUN (9-20) mg/dL POC Glucose (mg/dL) 109 H 105 H (75-99) mg/dL AST (17-59) U/L Total Protein (6.3-8.2) g/dL Albumin (3.5-5.0) g/dL Urine Protein Trace H (Negative) 06/14/18 06/14/18 Range/Units 08:10 08:46 WBC 14.1 H (3.8-10.6) k/uL Hgb 11.0 L (13.0-17.5) gm/dL Hct 36.1 L (39.0-53.0) % MCHC 30.4 L (31.0-37.0) g/dL RDW 17.1 H (11.5-15.5) % Neutrophils # 12.2 H (1.3-7.7) k/uL Lymphocytes # 0.9 L (1.0-4.8) k/uL BUN 26 H (9-20) mg/dL POC Glucose (mg/dL) (75-99) mg/dL AST 13 L (17-59) U/L Total Protein 6.1 L (6.3-8.2) g/dL Albumin 3.0 L (3.5-5.0) g/dL Urine Protein (Negative) Diabetes panel 06/14/18 Range/Units 08:46 Sodium 138 (137-145) mmol/L Potassium 4.9 (3.5-5.1) mmol/L Chloride 103 (98-107) mmol/L Carbon Dioxide 30 (22-30) mmol/L BUN 26 H (9-20) mg/dL Creatinine 0.66 (0.66-1.25) mg/dL Glucose 98 (74-99) mg/dL Calcium 8.9 (8.4-10.2) mg/dL AST 13 L (17-59) U/L ALT 25 (21-72) U/L Alkaline Phosphatase 64 (38-126) U/L Total Protein 6.1 L (6.3-8.2) g/dL Albumin 3.0 L (3.5-5.0) g/dL Calcium panel 06/14/18 Range/Units 08:46 Calcium 8.9 (8.4-10.2) mg/dL Albumin 3.0 L (3.5-5.0) g/dL Pituitary panel 06/14/18 Range/Units 08:46 Sodium 138 (137-145) mmol/L Potassium 4.9 (3.5-5.1) mmol/L Chloride 103 (98-107) mmol/L Carbon Dioxide 30 (22-30) mmol/L BUN 26 H (9-20) mg/dL Creatinine 0.66 (0.66-1.25) mg/dL Glucose 98 (74-99) mg/dL Calcium 8.9 (8.4-10.2) mg/dL Adrenal panel 06/14/18 Range/Units 08:46 Sodium 138 (137-145) mmol/L Potassium 4.9 (3.5-5.1) mmol/L Chloride 103 (98-107) mmol/L Carbon Dioxide 30 (22-30) mmol/L BUN 26 H (9-20) mg/dL Creatinine 0.66 (0.66-1.25) mg/dL Glucose 98 (74-99) mg/dL Calcium 8.9 (8.4-10.2) mg/dL Total Bilirubin 0.4 (0.2-1.3) mg/dL AST 13 L (17-59) U/L ALT 25 (21-72) U/L Alkaline Phosphatase 64 (38-126) U/L Total Protein 6.1 L (6.3-8.2) g/dL Albumin 3.0 L (3.5-5.0) g/dL
--- NOTE | 2018-06-14 11:28 | P.CONS ---
History of Present Illness - Reason for Consult Consult date: 06/14/18 Abscess left gluteal region - History of Present Illness This is a 68-year-old male who gives history that he noticed a soft lump on the left buttocks crease about a week ago. He states it was not very bothersome the first day but by the second day it started becoming painful. Over the following week the area became increasingly painful with swelling and redness. He has not had nausea, vomiting, fever or chills. No shortness of breath. He does state he has a cough with sputum production. He came into the [facility] emergency center for evaluation. He was found to be afebrile, white count 22.7, creatinine 0.78, blood sugar 106, lactic acid 0.9, albumin 3.5. Urinalysis was negative. Blood culture status received. No wound culture has been obtained as there is no drainage. CAT scan of the pelvis with contrast showed suspected abscess or phlegmon in the left gluteal measuring 6 x 2 x 2. Patient was given a dose of and vancomycin and admitted to the [facility] floor and consult was also requested with Dr. Luong. Patient also has extensive history of peripheral vascular disease status post stenting and bypass on the left lower extremity, left toe amputation leading to below the knee amputation followed by [id number] amputation and further revision. He is non-ambulatory and is wheelchair/power chair bound. 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 He has been on disability due to a mental health issue. He is currently an active smoker but is hoping to quit. 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 He has had a weight loss from 285 pounds 220 pounds over the past 10 years not actively trying. He states he has no appetite. Dentition is in poor order which also affects his food intake. His hemoglobin A1c normally runs between 5.9 and 6.8. He does not check his blood sugars at home. Patient also relates that he has had several falls at home over the past couple months. Discussed discharge planning with possible IV antibiotics and he would prefer to return home as his needs his assistance. 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 Review of Systems All systems: negative Constitutional: Reports anorexia, Reports fatigue, Reports poor appetite, Reports weakness, Reports weight loss, Denies chills, Denies fever Eyes: denies blurred vision, denies pain Ears, nose, mouth and throat: Denies dysphagia, Denies headache, Denies mouth pain, Denies sore throat, Denies vertigo Cardiovascular: Denies chest pain, Denies edema, Denies leg edema, Denies shortness of breath Respiratory: Reports cough, Reports cough with sputum, Reports wheezing, Denies dyspnea, Denies excessive sputum, Denies hemoptysis, Denies home oxygen Gastrointestinal: Reports loss of appetite, Denies abdominal pain, Denies diarrhea, Denies nausea, Denies vomiting Musculoskeletal: Denies myalgias Integumentary: Reports darkening of skin, Reports lesions, Reports onychomycosis, Reports wounds, Denies pruritus, Denies rash Neurological: Denies aphasia, Denies change in mentation, Denies change in speech, Denies numbness, Denies weakness Psychiatric: Denies anxiety, Denies depression Endocrine: Denies fatigue, Denies weight change Past Medical History Past Medical History: COPD, Diabetes Mellitus, Hypertension, Myocardial Infarction ([place]), Osteoarthritis (OA), Vascular Disorder Additional Past Medical History / Comment(s): hx migraines, hx shingles, 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 knee wound + FOR MRSA Last Myocardial Infarction Date:: 2003 History of Any Multi-Drug Resistant Organisms: MRSA Year Discovered:: 04/02/16 MDRO Source:: LT KNEE WOUND Past Surgical History: Heart Catheterization With Stent, Orthopedic Surgery Additional Past Surgical History / Comment(s): STENTS TO LEFT GROIN, LEFT BELOW THE KNEE AMPUTATION, unsuccessful revascularization left leg, shoulder surgery, surgical debridement of necrotic tissue left scrotal area, LT AKA 03/03/16. left testicle removed. heart stent x1 Past Anesthesia/Blood Transfusion Reactions: No Reported Reaction Date of Last Stent Placement:: 2006 Past Psychological History: Depression Smoking Status: Current every day smoker Past Alcohol Use History: None Reported Additional Past Alcohol Use History / Comment(s): Patient is a smoker one and a half packs of cigarettes per day for 52 years. He smokes marijuana on a daily basis and has done so for many decades. He denies any alcohol use. He lives at home with his and there is one dog and 3 cats in the home. 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 He denies any service. Known travel. He has been on disability due to mental health issue. He is non- ambulatory does not have prosthesis for the left leg. He uses a power chair. Past Drug Use History: Marijuana - Past Family History Sister(s) Family Medical History: Cancer Additional Family Medical History / Comment(s): double mastectomy, still surviving Father Family Medical History: No Reported History Mother Family Medical History: No Reported History Additional Family Medical History / Comment(s): hpoglycemia Medications and Allergies Home Medications Medication Instructions Recorded Confirmed Type Aspirin 81 mg PO DAILY 01/14/14 06/13/18 History DULoxetine HCL [Cymbalta] 60 mg PO W/SUPPER 01/14/14 06/13/18 History Gabapentin [Neurontin] 300 mg PO TID 01/14/14 06/13/18 History Lisinopril [Prinivil] 20 mg PO QAM 01/14/14 06/13/18 History metFORMIN HCL [Glucophage] 500 mg PO BID 01/14/14 06/13/18 History ALPRAZolam [Xanax] 1 mg PO HS PRN 04/02/15 06/13/18 History B Complex-Vit C-Vit E-Zinc [Z-Bec] 1 tab PO DAILY 04/02/15 06/13/18 History Omeprazole [PriLOSEC] 20 mg PO BID 04/02/15 06/13/18 History Hydrocodone/Acetaminophen [Adrian 1 tab PO Q6H PRN 06/27/15 06/13/18 History 10-325] Escitalopram [Lexapro] 10 mg PO DAILY 06/13/18 06/13/18 History L.acidoph,Paracasei, B.lactis 1 cap PO DAILY 06/13/18 06/13/18 History [Probiotic] Pantoprazole Sodium [Protonix] 40 mg PO DAILY 06/13/18 06/13/18 History Simethicone [Gas-X] 125 mg PO DAILY PRN 06/13/18 06/13/18 History amLODIPine [Norvasc] 5 mg PO DAILY 06/13/18 06/13/18 History buPROPion XL [Wellbutrin Xl] 150 mg PO DAILY 06/13/18 06/13/18 History fentaNYL 100MCG/HR PATCH 100 mcg TRANSDERM Q72H 06/13/18 06/13/18 History [Duragesic 100MCG/HR] Allergies Allergy/AdvReac Type Severity Reaction Status Date / Time azithromycin [From Zithromax] Allergy Rash/Hives Verified 06/13/18 13:50 Physical Exam Vitals: Vital Signs Temp Pulse Pulse Resp BP BP Pulse Ox 06/14/18 06:32 97.9 F 66 18 136/72 91 L 06/13/18 23:00 98.0 F 69 18 127/59 91 L 06/13/18 19:46 97.1 F L 86 18 126/60 93 L 06/13/18 18:53 101 H 16 146/50 93 L 06/13/18 17:06 94 16 146/80 93 L 06/13/18 15:55 98.6 F 95 16 145/50 95 06/13/18 13:19 99.3 F 106 H 18 145/70 95 Intake and Output 06/13/18 06/14/18 06/14/18 22:59 06:59 14:59 Intake Total 250 0 Output Total 1110 Balance -860 0 Intake: Oral 250 0 Output: Urine 1110 Uretheral (Russo) 1110 Other: # Voids 1 Gen: This is a cachectic-appearing 68-year-old male. He is resting in bed and appears to be comfortable and in no acute distress. No respiratory d istress noted. HEENT: Head is atraumatic, normocephalic. Pupils equal, round. Sclerae is anicteric. Conjunctiva pink. Mucous membranes of the mouth are moist. Dentition is in poor order. No lesions noted. NECK: Supple. No JVD. No lymphadenopathy. No thyromegaly. LUNGS: Scattered inspiratory and expiratory wheeze. No intercostal retractions. HEART: Regular rate and rhythm. No murmur. ABDOMEN: Soft. Bowel sounds are present. No masses. No tenderness. EXTREMITIES: No pedal edema to the right lower extremity. Onychomycosis to all toes. Dorsalis pedis is weak. To be left [id number] stump, no open wounds. To the left gluteal fold, there is significant edema erythema and firmness with tender To touch. NEUROLOGICAL: Patient is awake, alert and oriented x3. Cranial nerves 2 through 12 are grossly intact. Results Results: Laboratory Results WBC 14.1 k/uL (3.8-10.6) H 06/14/18 08:10 RBC 4.38 m/uL (4.30-5.90) 06/14/18 08:10 Hgb 11.0 gm/dL (13.0-17.5) L 06/14/18 08:10 Hct 36.1 % (39.0-53.0) L 06/14/18 08:10 MCV 82.5 fL (80.0-100.0) 06/14/18 08:10 MCH 25.1 pg (25.0-35.0) 06/14/18 08:10 MCHC 30.4 g/dL (31.0-37.0) L 06/14/18 08:10 RDW 17.1 % (11.5-15.5) H 06/14/18 08:10 Plt Count 385 k/uL (150-450) 06/14/18 08:10 Neutrophils % 87 % 06/14/18 08:10 Lymphocytes % 7 % 06/14/18 08:10 Monocytes % 5 % 06/14/18 08:10 Eosinophils % 0 % 06/14/18 08:10 Basophils % 0 % 06/14/18 08:10 Neutrophils # 12.2 k/uL (1.3-7.7) H 06/14/18 08:10 Lymphocytes # 0.9 k/uL (1.0-4.8) L 06/14/18 08:10 Monocytes # 0.7 k/uL (0-1.0) 06/14/18 08:10 Eosinophils # 0.1 k/uL (0-0.7) 06/14/18 08:10 Basophils # 0.0 k/uL (0-0.2) 06/14/18 08:10 Hypochromasia Moderate 06/14/18 08:10 Anisocytosis Slight 06/14/18 08:10 Microcytosis Slight 06/13/18 14:00 Sodium 138 mmol/L (137-145) 06/14/18 08:46 Potassium 4.9 mmol/L (3.5-5.1) 06/14/18 08:46 Chloride 103 mmol/L (98-107) 06/14/18 08:46 Carbon Dioxide 30 mmol/L (22-30) 06/14/18 08:46 Anion Gap 5 mmol/L 06/14/18 08:46 BUN 26 mg/dL (9-20) H 06/14/18 08:46 Creatinine 0.66 mg/dL (0.66-1.25) 06/14/18 08:46 Est GFR (CKD-EPI)AfAm >90 (>60 ml/min/1.73 sqM) 06/14/18 08:46 Est GFR (CKD-EPI)NonAf >90 (>60 ml/min/1.73 sqM) 06/14/18 08:46 Glucose 98 mg/dL (74-99) 06/14/18 08:46 POC Glucose (mg/dL) 105 mg/dL (75-99) H 06/14/18 07:16 POC Glu Manager [employer] ID Alayna Burgess 06/14/18 07:16 Plasma Lactic Acid Mike 0.9 mmol/L (0.7-2.0) 06/13/18 17:10 Calcium 8.9 mg/dL (8.4-10.2) 06/14/18 08:46 Total Bilirubin 0.4 mg/dL (0.2-1.3) 06/14/18 08:46 AST 13 U/L (17-59) L 06/14/18 08:46 ALT 25 U/L (21-72) 06/14/18 08:46 Alkaline Phosphatase 64 U/L (38-126) 06/14/18 08:46 Total Protein 6.1 g/dL (6.3-8.2) L 06/14/18 08:46 Albumin 3.0 g/dL (3.5-5.0) L 06/14/18 08:46 Urine Color Yellow 06/13/18 16:10 Urine Appearance Clear (Clear) 06/13/18 16:10 Urine pH 5.0 (5.0-8.0) 06/13/18 16:10 Ur Specific [place] 1.019 (1.001-1.035) 06/13/18 16:10 Urine Protein Trace (Negative) H 06/13/18 16:10 Urine Glucose (UA) Negative (Negative) 06/13/18 16:10 Urine Ketones Negative (Negative) 06/13/18 16:10 Urine Blood Negative (Negative) 06/13/18 16:10 Urine Nitrite Negative (Negative) 06/13/18 16:10 Urine Bilirubin Negative (Negative) 06/13/18 16:10 Urine Urobilinogen <2.0 mg/dL (<2.0) 06/13/18 16:10 Ur Leukocyte Esterase Negative (Negative) 06/13/18 16:10 CBC & Chem 7: 06/14/18 08:10 06/14/18 08:46 Labs: Abnormal Lab Results - Last 24 Hours (Table) 06/13/18 06/13/18 06/13/18 Range/Units 14:00 14:00 16:10 WBC 22.7 H (3.8-10.6) k/uL Hgb 11.5 L (13.0-17.5) gm/dL Hct 36.8 L (39.0-53.0) % MCHC (31.0-37.0) g/dL RDW 17.3 H (11.5-15.5) % Neutrophils # 20.7 H (1.3-7.7) k/uL Lymphocytes # 0.6 L (1.0-4.8) k/uL Monocytes # 1.1 H (0-1.0) k/uL Sodium 134 L (137-145) mmol/L BUN 38 H (9-20) mg/dL Glucose 106 H (74-99) mg/dL POC Glucose (mg/dL) (75-99) mg/dL AST 16 L (17-59) U/L Total Protein (6.3-8.2) g/dL Albumin (3.5-5.0) g/dL Urine Protein Trace H (Negative) 06/13/18 06/14/18 06/14/18 Range/Units 20:54 07:16 08:10 WBC 14.1 H (3.8-10.6) k/uL Hgb 11.0 L (13.0-17.5) gm/dL Hct 36.1 L (39.0-53.0) % MCHC 30.4 L (31.0-37.0) g/dL RDW 17.1 H (11.5-15.5) % Neutrophils # 12.2 H (1.3-7.7) k/uL Lymphocytes # 0.9 L (1.0-4.8) k/uL Monocytes # (0-1.0) k/uL Sodium (137-145) mmol/L BUN (9-20) mg/dL Glucose (74-99) mg/dL POC Glucose (mg/dL) 109 H 105 H (75-99) mg/dL AST (17-59) U/L Total Protein (6.3-8.2) g/dL Albumin (3.5-5.0) g/dL Urine Protein (Negative) 06/14/18 Range/Units 08:46 WBC (3.8-10.6) k/uL Hgb (13.0-17.5) gm/dL Hct (39.0-53.0) % MCHC (31.0-37.0) g/dL RDW (11.5-15.5) % Neutrophils # (1.3-7.7) k/uL Lymphocytes # (1.0-4.8) k/uL Monocytes # (0-1.0) k/uL Sodium (137-145) mmol/L BUN 26 H (9-20) mg/dL Glucose (74-99) mg/dL POC Glucose (mg/dL) (75-99) mg/dL AST 13 L (17-59) U/L Total Protein 6.1 L (6.3-8.2) g/dL Albumin 3.0 L (3.5-5.0) g/dL Urine Protein (Negative) Assessment and Plan Plan: This is a 68-year-old male who presents to hospital with abscess to the left gluteal area. Patient is currently on Unasyn and vancomycin has history of MRSA. Dr. Luong is on 4 expected I&D. Blood culture is status received. No wound culture has been obtained at this point. He has been started on nicotine patch for smoking cessation. Blood sugars are controlled. We will add in Glucerna for severe protein calorie malnutrition and physical therapy and occupational therapy regarding transferring if he has had multiple recent falls at home. Continue supportive care. Further recommendations as patient progresses. The above dictated assessment and findings were discussed with Dr. Carter. The impression and plan of care have been directed as dictated. Tamie Jay nurse practitioner acting as scribe for Dr. Carter.
[2018-06-14] MEDS: MULTIVITAMINS, THERA 1 EACH TAB PO SCH (11:40)
[2018-06-14] MEDS: INSULIN ASPART (NovoLOG) 100 UNIT/ML VIAL SQ SCH ×3 (12:22→21:19)
[2018-06-14 12:31] LABS: Glucose,Whole Blood 99 mg/dL (75-99)
[2018-06-14 13:18] VITALS: BMI 15.0
[2018-06-14] MEDS ORDERED: IV FLUID CONTINUATION 1,000 ML IV ONE (14:20)
[2018-06-14] MEDS ORDERED: fentaNYL (PF) 50 MCG/ML 2 ML AMP ONE (15:42)
[2018-06-14] MEDS ORDERED: PROPOFOL 10 MG/ML 20 ML VIAL IV ONE (15:42)
[2018-06-14] MEDS ORDERED: MIDAZOLAM 2 MG/2 ML VIAL ONE (15:42)
[2018-06-14] MEDS ORDERED: KETAMINE 10 MG/ML 20 ML VIAL ONE (15:42)
[2018-06-14] MEDS ORDERED: LIDOCAINE 1% INJ 10MG/ML (20 ML MDV) SQ ONE (16:06)
[2018-06-14 16:43] LABS: Glucose,Whole Blood 84 mg/dL (75-99)
--- NOTE | 2018-06-14 16:48 | P.OP ---
Date of Procedure: 06/14/18 Procedure(s) Performed: PREOPERATIVE DIAGNOSIS: Left buttock abscess POSTOPERATIVE DIAGNOSIS: Same PROCEDURE: Incision and drainage left buttock abscess SURGEON: Ag EBL: Minimal ANESTHESIA: Sedation and local COMPLICATIONS: None OPERATIVE PROCEDURE: Patient placed in the right decubitus position. Patient sedated per anesthesia. Left buttock prepped and draped in usual sterile fashion. The patient had a large area of erythema with some fluctuance present overlying the left buttock centrally. I wanted to avoid an incision immediately overlying the initial tuberosity because of the patient's wheelchair dependence. An incision was made in a radial fashion in the perirectal location and subcutaneous dissection took place. Entrance into the abscess cavity took place. Purulence fluid was evacuated. The abscess cavity was noted to tunnel fairly lateral and slightly superiorly. A counter incision was made there measuring about 1.5 cm in size. The tract of the abscess between these 2 incision sites was irrigated heavily with saline. I then placed a [place] drain between the 2 sites suturing it back to itself externally. I then packed the wound from one end to the other with 1/2 inch iodophor gauze. Sterile outer dressing was applied. DISPOSITION: Stable to recovery room
[2018-06-14] MEDS: HYDROmorphone 1 MG/ML 1 ML SYRINGE IVP ONE ×2 (16:55→17:02)
[2018-06-14 17:02] LABS: Hemoglobin A1C 6.5 % (4.0-6.0)
[2018-06-14] MEDS: DULoxetine HCL 60 MG CAPSULE.DR PO SCH (17:50)
[2018-06-14 18:02] LABS: Glucose,Whole Blood 89 mg/dL (75-99)
--- NOTE | 2018-06-14 18:50 | XR ---
EXAMINATION: XR chest 3V DATE AND TIME: 06/14/2018 5:50 PM CLINICAL INDICATION: PHH; wheezing TECHNIQUE: Frontal and 2 lateral views COMPARISON: None FINDINGS: The lungs are hyperexpanded, with emphysematous changes and with scattered shadows most consistent wi th senescent change. However, without prior imaging studies it is difficult to exclude pathology. The osseous, would advise low threshold for CT imaging in this patient. There is no evidence of pulmonary edema, major atelectasis, or farshad pneumonia. The pleural spaces are negative. The cardiac silhouette is not enlarged. The remainder of the mediast inal silhouette is unremarkable. The skeletal structures and soft tissues are negative for acute find ings. IMPRESSION: NO DEFINITE ACUTE PROCESS, BUT LUNG PARENCHYMAL FINDINGS DISCUSSED.
[2018-06-14 20:20] LABS: Glucose,Whole Blood 139 mg/dL (75-99)
[2018-06-14] MEDS: IPRATROPIUM-ALBUTEROL 3 ML NEB INHALATION SCH (21:22)
--- NOTE | 2018-06-14 22:03 | P.CON ---
Consult Note - . Consult date: 06/14/18 Assessment/Plan:: This is a 68-year-old male who gives history that he noticed a soft lump on the left buttocks crease about a week ago. He states it was not very bothersome the first day but by the second day it started becoming painful. Over the following week the area became increasingly painful with swelling and redness. He has not had nausea, vomiting, fever or chills. No shortness of breath. He does state he has a cough with sputum production. He came into the [facility] emergency center for evaluation. He was found to be afebrile, white count 22.7, creatinine 0.78, blood sugar 106, lactic acid 0.9 , albumin 3.5. Urinalysis was negative. Blood culture status received. No wound culture has been obtained as there is no drainage. CAT scan of the pelvis with contrast showed suspected abscess or phlegmon in the left gluteal measuring 6 x 2 x 2. Patient was given a dose of and vancomycin and admitted to the [facility] floor and consult was also requested with Dr. Luong. Patient also has extensive history of peripheral vascular disease status post stenting and bypass on the left lower extremity, left toe amputation leading to below the knee amputation followed by [id number] amputation and further revision. He is non-ambulatory and is wheelchair/power chair bound. 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 He has been on disability due to a mental health issue. He is currently an active smoker but is hoping to quit. 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 He has had a weight loss from 285 pounds 220 pounds over the past 10 years not actively trying. He states he has no appetite. Dentition is in poor order which also affects his food intake. His hemoglobin A1c normally runs between 5.9 and 6.8. He does not check his blood sugars at home. Patient also relates that he has had several falls at home over the past couple months. Discussed discharge planning with possible IV antibiotics and he would prefer to return home as his needs his assistance. 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 Tamie Jay. As noted patient has a long-standing history of diabetes mellitus type 2 that has been well controlled as of late. However has multiple complications that includes history of the left leg amputation and revisions, as well as his necrotizing fasciitis requiring orchiectomy in the past because of the progressive infection. Now presents with the abscess of left buttocks. The patient has been seen by the general surgeon will be going to the operating room in the next short period of time. Incision and drainage is planned. Based on his history to support. Antibiotic therapy based on his prior cultures includes Unasyn and vancomycin pending further culture data. The patient relates that his pain is modestly well controlled. He is not having high-grade fevers chills or rigors. Cultures will help direct antimicrobial therapy depending on the findings at surgery would likely need outpatient intravenous antibiotic therapy which will be arranged depending on findings. I agree with the evaluation, assessment and plan as dictated by nurse practitioner Mrs. Tamie Jay.
[2018-06-14] MEDS ORDERED: VANCOMYCIN TROUGH DUE 1 EACH MISC MISCELLANE ONE (23:00)
[2018-06-15] MEDS: VANCOMYCIN 1,000 MG in SODIUM CHLORIDE 0.9% 250 ML IVPB SCH ×3 (00:38→20:09)
[2018-06-15] MEDS: HYDROmorphone 0.5 MG/0.5 ML SYRINGE IVP PRN ×5 (03:29→20:13)
[2018-06-15 07:28] LABS: Glucose,Whole Blood 87 mg/dL (75-99)
[2018-06-15] MEDS: NICOTINE 21MG/24HR PATCH TRANSDERM SCH (07:42)
[2018-06-15] MEDS: GABAPENTIN 300 MG CAP PO SCH ×3 (07:45→20:13)
[2018-06-15] MEDS: AMPICILLIN-SULBACTAM 3 GM in SODIUM CHLORIDE 0.9% 100 ML IVPB SCH ×3 (07:45→23:43)
[2018-06-15] MEDS: LISINOPRIL 20 MG TAB PO SCH (07:45)
[2018-06-15] MEDS: PANTOPRAZOLE 40 MG TABLET PO SCH (07:45)
[2018-06-15] MEDS: ESCITALOPRAM 10 MG TAB PO SCH (07:45)
[2018-06-15] MEDS: ASPIRIN 81 MG PO SCH (07:45)
[2018-06-15] MEDS: MULTIVITAMINS, THERA 1 EACH TAB PO SCH (07:45)
[2018-06-15] MEDS: metFORMIN 500 MG TAB PO SCH ×2 (07:45→17:25)
[2018-06-15] MEDS: buPROPion XL 150 MG TAB.ER.24H PO SCH (07:45)
[2018-06-15] MEDS: amLODIPine 5 MG TAB PO SCH (07:45)
[2018-06-15] MEDS: CLOTRIMAZOLE 1% CREAM 15 GM TUBE TOPICAL SCH ×2 (07:46→20:10)
[2018-06-15] MEDS: INSULIN ASPART (NovoLOG) 100 UNIT/ML VIAL SQ SCH ×4 (07:46→21:08)
[2018-06-15 08:42] LABS: Anisocytosis Slight; Basophils % (A) 0 %; Eosinophils # (A) 0.1 k/uL (0-0.7); Eosinophils % (A) 1 %; HGB 9.8 gm/dL (13.0-17.5); Hypochromasia Marked; Lymphocytes # (A) 0.5 k/uL (1.0-4.8); Lymphocytes % (A) 6 %; MCH 25.7 pg (25.0-35.0); MCHC 30.8 g/dL (31.0-37.0); MCV 83.4 fL (80.0-100.0); Mean Platelet Volume 6.8; Monocytes # (A) 0.3 k/uL (0-1.0); Monocytes % (A) 4 %; Neutrophils # (A) 7.7 k/uL (1.3-7.7); Neutrophils % (A) 88 %; Platelet Count 349 k/uL (150-450); RBC 3.83 m/uL (4.30-5.90); RDW 17.1 % (11.5-15.5); WBC 8.8 k/uL (3.8-10.6)
[2018-06-15 09:00] LABS: ALT 21 U/L (21-72); AST 11 U/L (17-59); Albumin 2.5 g/dL (3.5-5.0); Alkaline Phosphatase 54 U/L (38-126); Anion Gap 5 mmol/L; Blood Urea Nitrogen 19 mg/dL (9-20); Calcium 8.3 mg/dL (8.4-10.2); Carbon Dioxide 29 mmol/L (22-30); Chloride 103 mmol/L (98-107); Glucose 210 mg/dL (74-99); Sodium 137 mmol/L (137-145); Total Bilirubin 0.5 mg/dL (0.2-1.3); Total Protein 5.4 g/dL (6.3-8.2)
[2018-06-15] MEDS: IPRATROPIUM-ALBUTEROL 3 ML NEB INHALATION SCH ×2 (09:10→20:27)
[2018-06-15 09:37] LABS: Potassium 3.9 mmol/L (3.5-5.1)
--- NOTE | 2018-06-15 10:03 | P.PN ---
Subjective Progress Note Date: 06/15/18 This is a 68-year-old male with a known history of hypertension, diabetes, peripheral vascular disease with a left below-knee amputation, myocardial infarction, coronary artery disease with previous cardiac stents, COPD, nicotine dependence, necrotizing fasciitis of the left groin and scrotum with left or chiectomy. Patient reports he is mostly wheelchair bound and does get pressure sores on his buttocks area. Reports the left gluteal area had a small red bump noted about a week ago. And over the weekend the size continued to increase and became sore. He denies any injury to the area there's been no drainage or cuts noted. He presented to the ER for further evaluation and treatment white count elevated at 22.7 BUN 38 lactic acid normal at 0.9 was given a dose of IV Kefzol and then started on IV Unasyn and IV vancomycin in the ER. Infectious disease and surgical service were consulted. Patient did have a computed tomography scan of the pelvis showing suspected underlying abscess or phlegmon. CAT scan shows abnormal increased soft tissue attenuation at the level of the posterior pelvis, left gluteal region, some increased subcutaneous fat density with suggestion of an oval area of the lower attenuation measuring approximate 6 x 2 x 2 cm representing an underlying phlegmon or abscess coursing posterior and inferior to the left ischial tuberosity. Patient also had evidence of urinary retention and Russo catheter was inserted. He had retained 800. Patient reports low-grade temps of 99 at home as well as chills. Denies any nausea or vomiting, bowel movement changes, denies any chest pain or shortness of breath. Denies any burning with urination. On 06/15/2018 patient is alert and oriented 3. Patient is status post incision and drainage of abscess with Dr. bronson. Patient denies chest pain or shortness breath. Patient denies nausea vomiting or diarrhea. Patient denies any urinary burning or frequency Objective - Vital Signs Vital signs: Vital Signs Temp 97.9 F 06/15/18 07:20 Pulse 100 06/15/18 09:22 Resp 18 06/15/18 07:20 BP 149/70 06/15/18 07:20 Pulse Ox 95 06/15/18 09:12 Intake & Output 06/14/18 06/15/18 06/15/18 18:59 06:59 18:59 Intake Total 400 Output Total 405 700 Balance -5 -700 Weight 54.431 kg Intake: IV 400 Output: Urine 400 700 Estimated Blood Loss 5 Other: Voiding Method Indwelling Catheter Indwelling Catheter Indwelling Catheter - Exam Head normocephalic Neck supple Lungs mild wheezing that improved with cough Heart regular rate and rhythm S1-S2, no rub or gallop Abdomen is soft nontender nondistended positive bowel sounds no hepatosplenomegaly Extremities no edema. Left below the knee amputation Neuro alert and orientated to 3 Skin left gluteal area is red there is a firm area about 5 cm in size. No rash or lesions or cuts noted. Tender with palpation patient also has some redness on the right gluteal area as well - Labs CBC & Chem 7: 06/15/18 08:18 06/15/18 08:18 Labs: Abnormal Lab Results - Last 24 Hours (Table) 06/14/18 06/14/18 06/15/18 Range/Units 08:10 20:18 08:18 RBC 3.83 L (4.30-5.90) m/uL Hgb 9.8 L (13.0-17.5) gm/dL Hct 32.0 L (39.0-53.0) % MCHC 30.8 L (31.0-37.0) g/dL RDW 17.1 H (11.5-15.5) % Lymphocytes # 0.5 L (1.0-4.8) k/uL Glucose (74-99) mg/dL POC Glucose (mg/dL) 139 H (75-99) mg/dL Hemoglobin A1c 6.5 H (4.0-6.0) % Calcium (8.4-10.2) mg/dL AST (17-59) U/L Total Protein (6.3-8.2) g/dL Albumin (3.5-5.0) g/dL 06/15/18 Range/Units 08:18 RBC (4.30-5.90) m/uL Hgb (13.0-17.5) gm/dL Hct (39.0-53.0) % MCHC (31.0-37.0) g/dL RDW (11.5-15.5) % Lymphocytes # (1.0-4.8) k/uL Glucose 210 H (74-99) mg/dL POC Glucose (mg/dL) (75-99) mg/dL Hemoglobin A1c (4.0-6.0) % Calcium 8.3 L (8.4-10.2) mg/dL AST 11 L (17-59) U/L Total Protein 5.4 L (6.3-8.2) g/dL Albumin 2.5 L (3.5-5.0) g/dL Microbiology - Last 24 Hours (Table) 06/14/18 16:31 Gram Stain - Preliminary Buttock Wound Culture - Preliminary 06/14/18 16:31 Anaerobic Culture - Preliminary Buttock 06/13/18 14:00 Blood Culture - Preliminary Blood No Growth after 24 hours Assessment and Plan Assessment: 1. Status post incision and drainage of left gluteal abscess with Dr. bronson. Patient currently on Unasyn and IV vancomycin. White blood cell improving to 8.8. Patient is currently postop day 1. Per infectious disease continue with IV antibiotics. Cultures currently pending. 2. U cultures currently pendingrinary retention: Patient has Russo catheter inserted 3. Essential hypertension 4. COPD: Uses albuterol inhaler at home will add nebulizer treatments BID during hospitalization. check chest x-ray 5. Diabetes mellitus type 2 continue metformin and add sliding scale coverage. Check A1c 6. History of coronary artery disease and cardiac stents 7. History of myocardial infarction 8. History of peripheral vascular disease with left below the knee amputation 9. History of necrotizing fasciitis of the groin and scrotal area requiring left orchiectomy 10. Nicotine dependence: Discussed smoking cessation for greater than 3 minutes. Patient currently on Wellbutrin and nicotine patch DVT prophylaxis Lovenox. GI prophylaxis Protonix I performed an examination of the patient and discussed their management with the Nurse Practitioner. I have reviewed the Nurse Practitioner's notes and agree with the documented findings and plan of care
[2018-06-15 11:50] LABS: Glucose,Whole Blood 141 mg/dL (75-99)
--- NOTE | 2018-06-15 12:22 | P.PN ---
<Hien Song A - Last Filed: 06/15/18 12:17> Subjective Progress Note Date: 06/15/18 CHIEF COMPLAINT: Abscess in left gluteal region HISTORY OF PRESENT ILLNESS: Patient seen and examined at the bedside with Dr. Luong. Patient is status post I&D of left buttock abscess. Patient reports his pain is tolerable at this time. White count today 8.8. Infectious disease is also on consult. Patient is receiving Unasyn and vancomycin. Cultures are in progress. He is afebrile. Vital signs are stable. PHYSICAL EXAM: VITAL SIGNS: Currently stable. GENERAL: Well-developed in no acute distress. HEENT: No sclera icterus. Extraocular movements grossly intact. Moist buccal mucosa. Head is atraumatic, normocephalic. Hears conversational speech. No nasal drainage. NECK: Supple without lymphadenopathy. CHEST: Non-labored respirations and equal bilateral excursions. CARDIOVASCULAR: Regular rate with regular rhythm. Palpable 2+ radial pulses. ABDOMEN: Soft. Nondistended. Nontender. MUSCULOSKELETAL: No clubbing, cyanosis or edema. Left AKA. NEUROLOGIC: No focal or lateralizing signs. Cranial nerves II through XII grossly intact. PSYCH: Appropriate affect. Alert and oriented to person, place and time. SKIN: Well perfused. Good skin turgor. Dressing to left buttock clean dry intact. francisca drain to let buttock. ASSESSMENT: 1. Left buttock abscess, s/p I&D 2. Leukocytosis, resolved PLAN: 1. Continue regular diet 2. Daily dressing changes to left buttock with 1/2 inch iodoform gauze packing to each side of francisca drain. 3. Continue antibiotics 4. ID on consult 5. Monitor WBC Nurse practitioner note has been reviewed by physician. Signing provider agrees with the documented findings, assessment, and plan of care. Objective - Vital Signs Vital signs: Vital Signs Temp 97.9 F 06/15/18 07:20 Pulse 100 06/15/18 09:22 Resp 18 06/15/18 07:20 BP 149/70 06/15/18 07:20 Pulse Ox 95 06/15/18 09:12 Intake & Output 06/14/18 06/15/18 06/15/18 18:59 06:59 18:59 Intake Total 400 Output Total 405 700 Balance -5 700 Weight 54.431 kg Intake: IV 400 Output: Urine 400 700 Estimated Blood Loss 5 Other: Voiding Method Indwelling Catheter Indwelling Catheter Indwelling Catheter # Bowel Movements 0 - Labs CBC & Chem 7: 06/15/18 08:18 06/15/18 08:18 Labs: Abnormal Lab Results - Last 24 Hours (Table) 06/14/18 06/14/18 06/15/18 Range/Units 08:10 20:18 08:18 RBC 3.83 L (4.30-5.90) m/uL Hgb 9.8 L (13.0-17.5) gm/dL Hct 32.0 L (39.0-53.0) % MCHC 30.8 L (31.0-37.0) g/dL RDW 17.1 H (11.5-15.5) % Lymphocytes # 0.5 L (1.0-4.8) k/uL Glucose (74-99) mg/dL POC Glucose (mg/dL) 139 H (75-99) mg/dL Hemoglobin A1c 6.5 H (4.0-6.0) % Calcium (8.4-10.2) mg/dL AST (17-59) U/L Total Protein (6.3-8.2) g/dL Albumin (3.5-5.0) g/dL 06/15/18 06/15/18 Range/Units 08:18 11:41 RBC (4.30-5.90) m/uL Hgb (13.0-17.5) gm/dL Hct (39.0-53.0) % MCHC (31.0-37.0) g/dL RDW (11.5-15.5) % Lymphocytes # (1.0-4.8) k/uL Glucose 210 H (74-99) mg/dL POC Glucose (mg/dL) 141 H (75-99) mg/dL Hemoglobin A1c (4.0-6.0) % Calcium 8.3 L (8.4-10.2) mg/dL AST 11 L (17-59) U/L Total Protein 5.4 L (6.3-8.2) g/dL Albumin 2.5 L (3.5-5.0) g/dL Microbiology - Last 24 Hours (Table) 06/14/18 16:31 Gram Stain - Preliminary Buttock Wound Culture - Preliminary 06/14/18 16:31 Anaerobic Culture - Preliminary Buttock 06/13/18 14:00 Blood Culture - Preliminary Blood No Growth after 24 hours <Ganga Luong - Last Filed: 06/15/18 12:33> Subjective As above. Patient doing well. Pain seems improved. Begin local wound care. Await cultures. Objective - Vital Signs Vital signs: Vital Signs Temp 97.9 F 06/15/18 07:20 Pulse 100 06/15/18 09:22 Resp 18 06/15/18 07:20 BP 149/70 06/15/18 07:20 Pulse Ox 95 06/15/18 09:12 Intake & Output 06/14/18 06/15/18 06/15/18 18:59 06:59 18:59 Intake Total 400 Output Total 405 700 Balance -5 -700 Weight 54.431 kg Intake: IV 400 Output: Urine 400 700 Estimated Blood Loss 5 Other: Voiding Method Indwelling Catheter Indwelling Catheter Indwelling Catheter # Bowel Movements 0 - Labs CBC & Chem 7: 06/15/18 08:18 06/15/18 08:18 Labs: Abnormal Lab Results - Last 24 Hours (Table) 06/14/18 06/14/18 06/15/18 Range/Units 08:10 20:18 08:18 RBC 3.83 L (4.30-5.90) m/uL Hgb 9.8 L (13.0-17.5) gm/dL Hct 32.0 L (39.0-53.0) % MCHC 30.8 L (31.0-37.0) g/dL RDW 17.1 H (11.5-15.5) % Lymphocytes # 0.5 L (1.0-4.8) k/uL Glucose (74-99) mg/dL POC Glucose (mg/dL) 139 H (75-99) mg/dL Hemoglobin A1c 6.5 H (4.0-6.0) % Calcium (8.4-10.2) mg/dL AST (17-59) U/L Total Protein (6.3-8.2) g/dL Albumin (3.5-5.0) g/dL 06/15/18 06/15/18 Range/Units 08:18 11:41 RBC (4.30-5.90) m/uL Hgb (13.0-17.5) gm/dL Hct (39.0-53.0) % MCHC (31.0-37.0) g/dL RDW (11.5-15.5) % Lymphocytes # (1.0-4.8) k/uL Glucose 210 H (74-99) mg/dL POC Glucose (mg/dL) 141 H (75-99) mg/dL Hemoglobin A1c (4.0-6.0) % Calcium 8.3 L (8.4-10.2) mg/dL AST 11 L (17-59) U/L Total Protein 5.4 L (6.3-8.2) g/dL Albumin 2.5 L (3.5-5.0) g/dL Microbiology - Last 24 Hours (Table) 06/14/18 16:31 Gram Stain - Preliminary Buttock Wound Culture - Preliminary 06/14/18 16:31 Anaerobic Culture - Preliminary Buttock 06/13/18 14:00 Blood Culture - Preliminary Blood No Growth after 24 hours
[2018-06-15] MEDS: DULoxetine HCL 60 MG CAPSULE.DR PO SCH (15:45)
[2018-06-15 17:22] LABS: Glucose,Whole Blood 145 mg/dL (75-99)
--- NOTE | 2018-06-15 19:50 | P.PN ---
Subjective Progress Note Date: 06/15/18 This is a 68-year-old male who gives history that he noticed a soft lump on the left buttocks crease about a week ago. He states it was not very bothersome the first day but by the second day it started becoming painful. Over the following week the area became increasingly painful with swelling and redness. He has not had nausea, vomiting, fever or chills. No shortness of breath. He does state he has a cough with sputum production. He came into the [facility] emergency center for evaluation. He was found to be afebrile, white count 22.7, creatinine 0.78, blood sugar 106, lactic acid 0.9 , albumin 3.5. Urinalysis was negative. Blood culture status received. No wound culture has been obtained as there is no drainage. CAT scan of the pelvis with contrast showed suspected abscess or phlegmon in the left gluteal measuring 6 x 2 x 2. Patient was given a dose of and vancomycin and admitted to the [facility] floor and consult was also requested with Dr. Luong. 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 He is non-ambulatory and is wheelchair/power chair bound. 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 He has been on disability due to a mental health issue. He is currently an active smoker but is hoping to quit. 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 He has had a weight loss from 285 pounds 220 pounds over the past 10 years not actively trying. He states he has no appetite. Dentition is in poor order which also affects his food intake. His hemoglobin A1c normally runs between 5.9 and 6.8. He does not check his blood sugars at home. Patient also relates that he has had several falls at home over the past couple months. Discussed discharge planning with possible IV antibiotics and he would prefer to return home as his needs his assistance. technology manager has been updated. 06/15/2018 Patient is feeling better today status post his incision and drainage. Is complaining of some pain at the site. There has not been a large amount of drainage. Overall he is not feeling poorly and blood sugars have been about 140. His appetite is adequate. Despite this his protein is low, and he is perplexed given his high protien diet. We discuss his BMI of 15 which is very low. Will go to rehab if IVABX are needed. Objective - Vital Signs Vital signs: Vital Signs Temp 96.7 F L 06/15/18 14:32 Pulse 69 06/15/18 14:32 Resp 18 06/15/18 14:32 BP 125/59 06/15/18 14:32 Pulse Ox 93 L 06/15/18 14:32 Intake & Output 06/15/18 06/15/18 06/16/18 06:59 18:59 06:59 Intake Total 960 Output Total 700 500 Balance -700 460 Intake: Oral 960 Output: Urine 700 500 Other: Voiding Method Indwelling Catheter Indwelling Catheter # Bowel Movements 0 - Exam Gen: This is a cachectic-appearing 68-year-old male. He is resting in bed and appears to be comfortable and in no acute distress. No respiratory distress noted. HEENT: Head is atraumatic, normocephalic. Pupils equal, round. Sclerae is anicteric. Conjunctiva pink. Mucous membranes of the mouth are moist. Dentition is in poor order. No lesions noted. NECK: Supple. No JVD. No lymphadenopathy. No thyromegaly. LUNGS: Scattered inspiratory and expiratory wheeze. No intercostal retractions. HEART: Regular rate and rhythm. No murmur. ABDOMEN: Soft. Bowel sounds are present. No masses. No tenderness. EXTREMITIES: No pedal edema to the right lower extremity. Onychomycosis to all toes. Dorsalis pedis is weak. To be left [id number] stump, no open wounds. The surgical site is dressed and intact. NEUROLOGICAL: Patient is awake, alert and oriented x3. Cranial nerves 2 through 12 are grossly intact. - Labs CBC & Chem 7: 06/15/18 08:18 06/15/18 08:18 Labs: Abnormal Lab Results - Last 24 Hours (Table) 06/14/18 06/15/18 06/15/18 Range/Units 20:18 08:18 08:18 RBC 3.83 L (4.30-5.90) m/uL Hgb 9.8 L (13.0-17.5) gm/dL Hct 32.0 L (39.0-53.0) % MCHC 30.8 L (31.0-37.0) g/dL RDW 17.1 H (11.5-15.5) % Lymphocytes # 0.5 L (1.0-4.8) k/uL Glucose 210 H (74-99) mg/dL POC Glucose (mg/dL) 139 H (75-99) mg/dL Calcium 8.3 L (8.4-10.2) mg/dL AST 11 L (17-59) U/L Total Protein 5.4 L (6.3-8.2) g/dL Albumin 2.5 L (3.5-5.0) g/dL 06/15/18 06/15/18 Range/Units 11:41 17:19 RBC (4.30-5.90) m/uL Hgb (13.0-17.5) gm/dL Hct (39.0-53.0) % MCHC (31.0-37.0) g/dL RDW (11.5-15.5) % Lymphocytes # (1.0-4.8) k/uL Glucose (74-99) mg/dL POC Glucose (mg/dL) 141 H 145 H (75-99) mg/dL Calcium (8.4-10.2) mg/dL AST (17-59) U/L Total Protein (6.3-8.2) g/dL Albumin (3.5-5.0) g/dL Microbiology - Last 24 Hours (Table) 06/13/18 14:00 Blood Culture - Preliminary Blood No Growth after 48 hours 06/14/18 16:31 Gram Stain - Preliminary Buttock Wound Culture - Preliminary 06/14/18 16:31 Anaerobic Culture - Preliminary Buttock Laboratory Results WBC 8.8 k/uL (3.8-10.6) 06/15/18 08:18 RBC 3.83 m/uL (4.30-5.90) L 06/15/18 08:18 Hgb 9.8 gm/dL (13.0-17.5) L 06/15/18 08:18 Hct 32.0 % (39.0-53.0) L 06/15/18 08:18 MCV 83.4 fL (80.0-100.0) 06/15/18 08:18 MCH 25.7 pg (25.0-35.0) 06/15/18 08:18 MCHC 30.8 g/dL (31.0-37.0) L 06/15/18 08:18 RDW 17.1 % (11.5-15.5) H 06/15/18 08:18 Plt Count 349 k/uL (150-450) 06/15/18 08:18 Neutrophils % 88 % 06/15/18 08:18 Lymphocytes % 6 % 06/15/18 08:18 Monocytes % 4 % 06/15/18 08:18 Eosinophils % 1 % 06/15/18 08:18 Basophils % 0 % 06/15/18 08:18 Neutrophils # 7.7 k/uL (1.3-7.7) 06/15/18 08:18 Lymphocytes # 0.5 k/uL (1.0-4.8) L 06/15/18 08:18 Monocytes # 0.3 k/uL (0-1.0) 06/15/18 08:18 Eosinophils # 0.1 k/uL (0-0.7) 06/15/18 08:18 Basophils # 0.0 k/uL (0-0.2) 06/15/18 08:18 Hypochromasia Marked 06/15/18 08:18 Anisocytosis Slight 06/15/18 08:18 Microcytosis Slight 06/13/18 14:00 Sodium 137 mmol/L (137-145) 06/15/18 08:18 Potassium 3.9 mmol/L (3.5-5.1) 06/15/18 08:18 Chloride 103 mmol/L (98-107) 06/15/18 08:18 Carbon Dioxide 29 mmol/L (22-30) 06/15/18 08:18 Anion Gap 5 mmol/L 06/15/18 08:18 BUN 19 mg/dL (9-20) 06/15/18 08:18 Creatinine 0.67 mg/dL (0.66-1.25) 06/15/18 08:18 Est GFR (CKD-EPI)AfAm >90 (>60 ml/min/1.73 sqM) 06/15/18 08:18 Est GFR (CKD-EPI)NonAf >90 (>60 ml/min/1.73 sqM) 06/15/18 08:18 Glucose 210 mg/dL (74-99) H 06/15/18 08:18 POC Glucose (mg/dL) 145 mg/dL (75-99) H 06/15/18 17:19 POC Glu Advertisement Compositor ID Rakel Jimenez 06/15/18 17:[address] Glu mg/dL 140 06/14/18 08:10 Hemoglobin A1c 6.5 % (4.0-6.0) H 06/14/18 08:10 Plasma Lactic Acid Mike 0.9 mmol/L (0.7-2.0) 06/13/18 17:10 Calcium 8.3 mg/dL (8.4-10.2) L 06/15/18 08:18 Total Bilirubin 0.5 mg/dL (0.2-1.3) 06/15/18 08:18 AST 11 U/L (17-59) L 06/15/18 08:18 ALT 21 U/L (21-72) 06/15/18 08:18 Alkaline Phosphatase 54 U/L (38-126) 06/15/18 08:18 Total Protein 5.4 g/dL (6.3-8.2) L 06/15/18 08:18 Albumin 2.5 g/dL (3.5-5.0) L 06/15/18 08:18 Urine Color Yellow 06/13/18 16:10 Urine Appearance Clear (Clear) 06/13/18 16:10 Urine pH 5.0 (5.0-8.0) 06/13/18 16:10 Ur Specific [place] 1.019 (1.001-1.035) 06/13/18 16:10 Urine Protein Trace (Negative) H 06/13/18 16:10 Urine Glucose (UA) Negative (Negative) 06/13/18 16:10 Urine Ketones Negative (Negative) 06/13/18 16:10 Urine Blood Negative (Negative) 06/13/18 16:10 Urine Nitrite Negative (Negative) 06/13/18 16:10 Urine Bilirubin Negative (Negative) 06/13/18 16:10 Urine Urobilinogen <2.0 mg/dL (<2.0) 06/13/18 16:10 Ur Leukocyte Esterase Negative (Negative) 06/13/18 16:10 Vancomycin Trough 22.5 ug/mL 06/14/18 22:48 Microbiology 06/13/18 14:00 Blood Blood Culture - Preliminary No Growth after 48 hours 06/14/18 16:31 Buttock Gram Stain - Preliminary 06/14/18 16:31 Buttock Wound Culture - Preliminary 06/14/18 16:31 Buttock Anaerobic Culture - Preliminary Assessment and Plan (1) Diabetes mellitus Current Visit: No Status: Acute Code(s): E11.9 - TYPE 2 DIABETES MELLITUS WITHOUT COMPLICATIONS SNOMED Code(s): 52307302 (2) History of left above knee amputation Current Visit: No Status: Acute Code(s): Z89.612 - ACQUIRED ABSENCE OF LEFT LEG ABOVE KNEE SNOMED Code(s): 309516826 (3) Cutaneous abscess of buttock Narrative/Plan: 68 year old man with DM and many complications presents with the painful abscess of the buttocks now has had Incision and drainage. Feeling better overall but still has some discomfort at the site. Patient is instructed about the importance of protein intake. He is receiving a multivitamin. Is also receiving protein supplements. He is distinctly underweight and needs to improve his protein intake to allow healing. He is working with the team to improve his glucose control also. Cultures are awaited there is concern that this will be MRSA and he required vancomycin therapy. He relates that he would be doing this in an extended care and could not handle this at home. Wound care has been prescribed by the surgeon will assist after discharge. Current Visit: Yes Status: Acute Code(s): L02.31 - CUTANEOUS ABSCESS OF BUTTOCK SNOMED Code(s): 13805175
[2018-06-15 20:44] LABS: Glucose,Whole Blood 171 mg/dL (75-99)
[2018-06-16] MEDS: ALPRAZolam 1 MG TAB PO PRN ×2 (00:33→21:30)
[2018-06-16] MEDS: HYDROmorphone 0.5 MG/0.5 ML SYRINGE IVP PRN ×3 (00:34→19:13)
[2018-06-16] MEDS ORDERED: HYDROmorphone 0.5 MG/0.5 ML SYRINGE ONE (05:40)
[2018-06-16 07:15] LABS: Glucose,Whole Blood 83 mg/dL (75-99)
[2018-06-16] MEDS: IPRATROPIUM-ALBUTEROL 3 ML NEB INHALATION SCH ×2 (07:23→20:21)
[2018-06-16 08:02] LABS: ALT 22 U/L (21-72); AST 13 U/L (17-59); Albumin 2.6 g/dL (3.5-5.0); Alkaline Phosphatase 55 U/L (38-126); Anion Gap 4 mmol/L; Blood Urea Nitrogen 18 mg/dL (9-20); Calcium 8.4 mg/dL (8.4-10.2); Carbon Dioxide 30 mmol/L (22-30); Chloride 102 mmol/L (98-107); Glucose 85 mg/dL (74-99); Potassium 3.8 mmol/L (3.5-5.1); Sodium 136 mmol/L (137-145); Total Bilirubin 0.4 mg/dL (0.2-1.3); Total Protein 5.5 g/dL (6.3-8.2)
[2018-06-16 08:09] LABS: Anisocytosis Slight; Basophils % (A) 0 %; Eosinophils # (A) 0.2 k/uL (0-0.7); Eosinophils % (A) 3 %; HCT 31.3 % (39.0-53.0); HGB 9.9 gm/dL (13.0-17.5); Hypochromasia Moderate; Lymphocytes % (A) 13 %; MCHC 31.7 g/dL (31.0-37.0); MCV 82.2 fL (80.0-100.0); Mean Platelet Volume 6.5; Monocytes # (A) 0.4 k/uL (0-1.0); Monocytes % (A) 5 %; Neutrophils # (A) 6.1 k/uL (1.3-7.7); Neutrophils % (A) 78 %; Platelet Count 376 k/uL (150-450); RBC 3.81 m/uL (4.30-5.90); RDW 16.8 % (11.5-15.5); WBC 7.8 k/uL (3.8-10.6)
[2018-06-16] MEDS: INSULIN ASPART (NovoLOG) 100 UNIT/ML VIAL SQ SCH ×4 (08:19→21:35)
[2018-06-16] MEDS: NICOTINE 21MG/24HR PATCH TRANSDERM SCH (08:20)
[2018-06-16] MEDS: LISINOPRIL 20 MG TAB PO SCH (08:21)
[2018-06-16] MEDS: buPROPion XL 150 MG TAB.ER.24H PO SCH (08:21)
[2018-06-16] MEDS: VANCOMYCIN 1,000 MG in SODIUM CHLORIDE 0.9% 250 ML IVPB SCH ×2 (08:21→21:30)
[2018-06-16] MEDS: ENOXAPARIN 40 MG/0.4 ML SYRINGE SQ SCH (08:21)
[2018-06-16] MEDS: ASPIRIN 81 MG PO SCH (08:21)
[2018-06-16] MEDS: PANTOPRAZOLE 40 MG TABLET PO SCH (08:21)
[2018-06-16] MEDS: ESCITALOPRAM 10 MG TAB PO SCH (08:21)
[2018-06-16] MEDS: MULTIVITAMINS, THERA 1 EACH TAB PO SCH (08:21)
[2018-06-16] MEDS: metFORMIN 500 MG TAB PO SCH ×2 (08:21→17:17)
[2018-06-16] MEDS: amLODIPine 5 MG TAB PO SCH (08:21)
[2018-06-16] MEDS: CLOTRIMAZOLE 1% CREAM 15 GM TUBE TOPICAL SCH ×2 (08:27→21:34)
[2018-06-16] MEDS: GABAPENTIN 300 MG CAP PO SCH ×3 (08:37→21:30)
[2018-06-16] MEDS: AMPICILLIN-SULBACTAM 3 GM in SODIUM CHLORIDE 0.9% 100 ML IVPB SCH ×2 (09:50→16:13)
[2018-06-16] MEDS ORDERED: LACTULOSE 20 GM/30 ML CUP PO ONE (09:54)
--- NOTE | 2018-06-16 10:07 | P.PN ---
Subjective Progress Note Date: 06/16/18 This is a 68-year-old male with a known history of hypertension, diabetes, peripheral vascular disease with a left below-knee amputation, myocardial infarction, coronary artery disease with previous cardiac stents, COPD, nicotine dependence, necrotizing fasciitis of the left groin and scrotum with left or chiectomy. Patient reports he is mostly wheelchair bound and does get pressure sores on his buttocks area. Reports the left gluteal area had a small red bump noted about a week ago. And over the weekend the size continued to increase and became sore. He denies any injury to the area there's been no drainage or cuts noted. He presented to the ER for further evaluation and treatment white count elevated at 22.7 BUN 38 lactic acid normal at 0.9 was given a dose of IV Kefzol and then started on IV Unasyn and IV vancomycin in the ER. Infectious disease and surgical service were consulted. Patient did have a computed tomography scan of the pelvis showing suspected underlying abscess or phlegmon. CAT scan shows abnormal increased soft tissue attenuation at the level of the posterior pelvis, left gluteal region, some increased subcutaneous fat density with suggestion of an oval area of the lower attenuation measuring approximate 6 x 2 x 2 cm representing an underlying phlegmon or abscess coursing posterior and inferior to the left ischial tuberosity. Patient also had evidence of urinary retention and Russo catheter was inserted. He had retained 800. Patient reports low-grade temps of 99 at home as well as chills. Denies any nausea or vomiting, bowel movement changes, denies any chest pain or shortness of breath. Denies any burning with urination. On 06/15/2018 patient is alert and oriented 3. Patient is status post incision and drainage of abscess with Dr. bronson. Patient denies chest pain or shortness breath. Patient denies nausea vomiting or diarrhea. Patient denies any urinary burning or frequency 06/16/2018 patient reports that his pain is controlled. His wound culture is growing presumptive staph aureus. He is currently on Unasyn and vancomycin. Patient complaining of constipation and his been over 3 days since his last bowel movement. Colace and lactulose have been ordered. Patient denies any chest pain or shortness of breath. Denies any nausea or vomiting. Still has Russo catheter in place. Patient is requesting that the Russo catheter states at least one more day. EKG showing sinus rhythm with PACs Objective - Vital Signs Vital signs: Vital Signs Temp 98.1 F 06/16/18 06:43 Pulse 100 06/16/18 07:38 Resp 16 06/16/18 06:43 BP 145/71 06/16/18 06:43 Pulse Ox 93 L 06/16/18 07:24 Intake & Output 06/15/18 06/16/18 06/16/18 18:59 06:59 18:59 Intake Total 960 300 Output Total 500 1000 Balance 460 -700 Intake: Oral 960 300 Output: Urine 500 1000 Other: Voiding Method Indwelling Catheter Indwelling Catheter # Bowel Movements 0 - Exam Head normocephalic Neck supple Lungs clear to auscultation bilaterally no wheezing or crackles Heart regular rate and rhythm S1-S2, no rub or gallop Abdomen is soft nontender nondistended positive bowel sounds no hepatosplenomegaly Extremities no edema Neuro alert and orientated to 3 Skin left buttocks decrease in redness packing is in place. Yellowish drainage noted on dressing - Labs CBC & Chem 7: 06/16/18 07:19 06/16/18 07:19 Labs: Abnormal Lab Results - Last 24 Hours (Table) 06/15/18 06/15/18 06/15/18 Range/Units 11:41 17:19 20:41 RBC (4.30-5.90) m/uL Hgb (13.0-17.5) gm/dL Hct (39.0-53.0) % RDW (11.5-15.5) % Sodium (137-145) mmol/L Creatinine (0.66-1.25) mg/dL POC Glucose (mg/dL) 141 H 145 H 171 H (75-99) mg/dL AST (17-59) U/L Total Protein (6.3-8.2) g/dL Albumin (3.5-5.0) g/dL 06/16/18 06/16/18 Range/Units 07:19 07:19 RBC 3.81 L (4.30-5.90) m/uL Hgb 9.9 L (13.0-17.5) gm/dL Hct 31.3 L (39.0-53.0) % RDW 16.8 H (11.5-15.5) % Sodium 136 L (137-145) mmol/L Creatinine 0.59 L (0.66-1.25) mg/dL POC Glucose (mg/dL) (75-99) mg/dL AST 13 L (17-59) U/L Total Protein 5.5 L (6.3-8.2) g/dL Albumin 2.6 L (3.5-5.0) g/dL Microbiology - Last 24 Hours (Table) 06/13/18 14:00 Blood Culture Gram Stain - Preliminary Blood 06/13/18 14:00 Blood Culture - Final Blood 06/14/18 16:31 Gram Stain - Preliminary Buttock Wound Culture - Preliminary Presumptive Staph aureus Assessment and Plan Assessment: 1. Left gluteal abscess status post incision and drainage. Wound culture growing presumptive staph aureus. Patient remains on Unasyn and IV vancomycin. Surgical service and infectious disease are following. Blood cultures negative 2. Urinary retention: Patient has Russo catheter inserted. We'll discontinue Russo catheter tomorrow 3. Essential hypertension 4. COPD: Uses albuterol inhaler at home will add nebulizer treatments BID during hospitalization. Chest x-ray showing no acute process 5. Diabetes mellitus type 2 continue metformin and add sliding scale coverage. A1c is 6.5 6. History of coronary artery disease and cardiac stents 7. History of myocardial infarction 8. History of peripheral vascular disease with left below the knee amputation 9. History of necrotizing fasciitis of the groin and scrotal area requiring left orchiectomy 10. Nicotine dependence: Discussed smoking cessation for greater than 3 minutes. Patient currently on Wellbutrin and nicotine patch 11. Constipation add Colace and 1 dose of lactulose 12. Acute Anemia: Likely multifactorial due to current infection, surgical intervention and malnutrition. Check iron studies 13. Severe protein calorie malnutrition continue protein supplement 14. Generalized anxiety disorder continue the Lexapro and Xanax GI prophylaxis Protonix and DVT prophylaxis Lovenox When patient is stable for discharge he'll be discharged to [facility] for rehabilitation I performed an examination of the patient and discussed their management with the physician Director Sales And Marketing. I have reviewed the Physician Director Sales And Marketing's notes and agree with the documented findings and plan of care
--- NOTE | 2018-06-16 11:37 | P.PN ---
<Hien Song A - Last Filed: 06/16/18 11:35> Subjective Progress Note Date: 06/16/18 CHIEF COMPLAINT: Abscess in left gluteal region HISTORY OF PRESENT ILLNESS: Patient seen and examined at the bedside. Patient is status post I&D of left buttock abscess. Patient states he is tired this morn ing and did not sleep well last night. He reports his pain is tolerable this morning. Cultures are positive for presumptive staph. Infectious disease remains on consult. He is receiving Unasyn and vancomycin. WBC 7.8. Hemoglobin 9.9. He reports constipation today. Colace and lactulose have been ordered per medicine. PHYSICAL EXAM: VITAL SIGNS: Currently stable. GENERAL: Well-developed in no acute distress. HEENT: No sclera icterus. Extraocular movements grossly intact. Moist buccal mucosa. Head is atraumatic, normocephalic. Hears conversational speech. No nasal draina ge. NECK: Supple without lymphadenopathy. CHEST: Non-labored respirations and equal bilateral excursions. CARDIOVASCULAR: Regular rate with regular rhythm. Palpable 2+ radial pulses. ABDOMEN: Soft. Nondistended. Nontender. MUSCULOSKELETAL: No clubbing, cyanosis or edema. Left AKA. NEUROLOGIC: No focal or lateralizing signs. Cranial nerves II through XII grossly intact. PSYCH: Appropriate affect. Alert and oriented to person, place and time. SKIN: Well perfused. Good skin turgor. Dressing to left buttock clean dry intact. francisca drain to left buttock. ASSESSMENT: 1. Left buttock abscess, s/p I&D, cultures positive for presumptive staph aureus 2. Leukocytosis, resolved PLAN: 1. Continue regular diet 2. Daily dressing changes to left buttock with 1/2 inch iodoform gauze packing to each side of francisca drain. 3. Continue antibiotics 4. ID on consult 5. Monitor WBC Nurse practitioner note has been reviewed by physician. Signing provider agrees with the documented findings, assessment, and plan of care. Objective - Vital Signs Vital signs: Vital Signs Temp 98.1 F 06/16/18 06:43 Pulse 100 06/16/18 07:38 Resp 16 06/16/18 08:00 BP 145/71 06/16/18 06:43 Pulse Ox 93 L 06/16/18 07:24 Intake & Output 06/15/18 06/16/1819 18:59 06:59 18:59 Intake Total 960 300 Output Total 500 1000 Balance 460 -700 Intake: Oral 960 300 Output: Urine 500 1000 Other: Voiding Method Indwelling Catheter Indwelling Catheter Indwelling Catheter # Bowel Movements 0 - Labs CBC & Chem 7: 06/16/18 07:19 06/16/18 07:19 Labs: Abnormal Lab Results - Last 24 Hours (Table) 06/15/18 06/15/18 06/15/18 Range/Units 11:41 17:19 20:41 RBC (4.30-5.90) m/uL Hgb (13.0-17.5) gm/dL Hct (39.0-53.0) % RDW (11.5-15.5) % Sodium (137-145) mmol/L Creatinine (0.66-1.25) mg/dL POC Glucose (mg/dL) 141 H 145 H 171 H (75-99) mg/dL AST (17-59) U/L Total Protein (6.3-8.2) g/dL Albumin (3.5-5.0) g/dL 06/16/18 06/16/18 Range/Units 07:19 07:19 RBC 3.81 L (4.30-5.90) m/uL Hgb 9.9 L (13.0-17.5) gm/dL Hct 31.3 L (39.0-53.0) % RDW 16.8 H (11.5-15.5) % Sodium 136 L (137-145) mmol/L Creatinine 0.59 L (0.66-1.25) mg/dL POC Glucose (mg/dL) (75-99) mg/dL AST 13 L (17-59) U/L Total Protein 5.5 L (6.3-8.2) g/dL Albumin 2.6 L (3.5-5.0) g/dL Microbiology - Last 24 Hours (Table) 06/13/18 14:00 Blood Culture Gram Stain - Preliminary Blood 06/13/18 14:00 Blood Culture - Final Blood 06/14/18 16:31 Gram Stain - Preliminary Buttock Wound Culture - Preliminary Presumptive Staph aureus <Ganga Luong - Last Filed: 06/16/18 17:37> Subjective As above. Patient doing well. Pain is improving. Still with some purulent drainage. Cultures noted. Continue local wound care. Continue drain. Objective - Vital Signs Vital signs: Vital Signs Temp 98.8 F 06/16/18 14:15 Pulse 76 06/16/18 14:15 Resp 16 06/16/18 16:00 BP 145/67 06/16/18 14:15 Pulse Ox 95 06/16/18 14:15 Intake & Output 06/15/18 06/16/18 06/16/18 18:59 06:59 18:59 Intake Total 960 300 Output Total 500 1000 Balance 460 -700 Weight 54.431 kg Intake: Oral 960 300 Output: Urine 500 1000 Other: Voiding Method Indwelling Catheter Indwelling Catheter Indwelling Catheter # Bowel Movements 0 - Labs CBC & Chem 7: 06/16/18 07:19 06/16/18 07:19 Labs: Abnormal Lab Results - Last 24 Hours (Table) 06/15/18 06/16/18 06/16/18 Range/Units 20:41 07:19 07:19 RBC 3.81 L (4.30-5.90) m/uL Hgb 9.9 L (13.0-17.5) gm/dL Hct 31.3 L (39.0-53.0) % RDW 16.8 H (11.5-15.5) % Sodium 136 L (137-145) mmol/L Creatinine 0.59 L (0.66-1.25) mg/dL POC Glucose (mg/dL) 171 H (75-99) mg/dL AST 13 L (17-59) U/L Total Protein 5.5 L (6.3-8.2) g/dL Albumin 2.6 L (3.5-5.0) g/dL 06/16/18 06/16/18 Range/Units 12:07 16:45 RBC (4.30-5.90) m/uL Hgb (13.0-17.5) gm/dL Hct (39.0-53.0) % RDW (11.5-15.5) % Sodium (137-145) mmol/L Creatinine (0.66-1.25) mg/dL POC Glucose (mg/dL) 215 H 104 H (75-99) mg/dL AST (17-59) U/L Total Protein (6.3-8.2) g/dL Albumin (3.5-5.0) g/dL Microbiology - Last 24 Hours (Table) 06/13/18 14:00 Blood Culture Gram Stain - Preliminary Blood 06/13/18 14:00 Blood Culture - Final Blood 06/14/18 16:31 Gram Stain - Preliminary Buttock Wound Culture - Preliminary Presumptive Staph aureus
[2018-06-16] MEDS: DOCUSATE 100 MG CAP PO SCH ×2 (11:52→21:34)
[2018-06-16 12:09] LABS: Glucose,Whole Blood 215 mg/dL (75-99)
[2018-06-16] MEDS: HYDROcodone/APAP 10-325MG 1 EACH TAB PO PRN (16:11)
[2018-06-16 16:56] LABS: Glucose,Whole Blood 104 mg/dL (75-99)
[2018-06-16] MEDS: DULoxetine HCL 60 MG CAPSULE.DR PO SCH (17:17)
[2018-06-16 20:28] LABS: Glucose,Whole Blood 120 mg/dL (75-99)
[2018-06-16 20:39] LABS: Iron Saturation 4.37 (15.00-50.00)
[2018-06-17] MEDS: AMPICILLIN-SULBACTAM 3 GM in SODIUM CHLORIDE 0.9% 100 ML IVPB SCH ×2 (00:38→09:05)
[2018-06-17] MEDS ORDERED: VANCOMYCIN TROUGH DUE 1 EACH MISC MISCELLANE ONE (07:00)
[2018-06-17 07:08] LABS: Glucose,Whole Blood 108 mg/dL (75-99)
[2018-06-17 07:27] LABS: Anisocytosis Slight; Basophils % (A) 1 %; Eosinophils # (A) 0.3 k/uL (0-0.7); Eosinophils % (A) 3 %; HCT 35.8 % (39.0-53.0); HGB 10.7 gm/dL (13.0-17.5); Hypochromasia Moderate; Lymphocytes % (A) 13 %; MCH 24.7 pg (25.0-35.0); MCV 82.2 fL (80.0-100.0); Mean Platelet Volume 6.8; Monocytes # (A) 0.4 k/uL (0-1.0); Monocytes % (A) 6 %; Neutrophils # (A) 5.7 k/uL (1.3-7.7); Neutrophils % (A) 77 %; Platelet Count 414 k/uL (150-450); RBC 4.35 m/uL (4.30-5.90); RDW 16.9 % (11.5-15.5); WBC 7.4 k/uL (3.8-10.6)
[2018-06-17 07:40] LABS: ALT 25 U/L (21-72); AST 15 U/L (17-59); Albumin 2.6 g/dL (3.5-5.0); Alkaline Phosphatase 56 U/L (38-126); Anion Gap 5 mmol/L; Blood Urea Nitrogen 15 mg/dL (9-20); Calcium 8.6 mg/dL (8.4-10.2); Carbon Dioxide 31 mmol/L (22-30); Chloride 100 mmol/L (98-107); Glucose 87 mg/dL (74-99); Potassium 4.1 mmol/L (3.5-5.1); Sodium 136 mmol/L (137-145); Total Bilirubin 0.5 mg/dL (0.2-1.3); Total Protein 5.5 g/dL (6.3-8.2)
[2018-06-17] MEDS: INSULIN ASPART (NovoLOG) 100 UNIT/ML VIAL SQ SCH ×2 (08:24→11:37)
[2018-06-17] MEDS: HYDROmorphone 0.5 MG/0.5 ML SYRINGE IVP PRN (08:35)
[2018-06-17] MEDS: ESCITALOPRAM 10 MG TAB PO SCH (08:36)
[2018-06-17] MEDS: ENOXAPARIN 40 MG/0.4 ML SYRINGE SQ SCH (08:36)
[2018-06-17] MEDS: PANTOPRAZOLE 40 MG TABLET PO SCH (08:36)
[2018-06-17] MEDS: NICOTINE 21MG/24HR PATCH TRANSDERM SCH (08:36)
[2018-06-17] MEDS: DOCUSATE 100 MG CAP PO SCH (08:37)
[2018-06-17] MEDS: metFORMIN 500 MG TAB PO SCH (08:37)
[2018-06-17] MEDS: LISINOPRIL 20 MG TAB PO SCH (08:37)
[2018-06-17] MEDS: ASPIRIN 81 MG PO SCH (08:37)
[2018-06-17] MEDS: MULTIVITAMINS, THERA 1 EACH TAB PO SCH (08:37)
[2018-06-17] MEDS: GABAPENTIN 300 MG CAP PO SCH (08:37)
[2018-06-17] MEDS: buPROPion XL 150 MG TAB.ER.24H PO SCH (08:39)
[2018-06-17] MEDS: amLODIPine 5 MG TAB PO SCH (08:41)
[2018-06-17] MEDS: CLOTRIMAZOLE 1% CREAM 15 GM TUBE TOPICAL SCH (08:43)
[2018-06-17] MEDS ORDERED: FERROUS SULFATE 325 MG TAB PO SCH (09:00)
[2018-06-17] MEDS: IPRATROPIUM-ALBUTEROL 3 ML NEB INHALATION SCH (09:03)
[2018-06-17] MEDS: VANCOMYCIN 1,000 MG in SODIUM CHLORIDE 0.9% 250 ML IVPB SCH (09:05)
[2018-06-17] MEDS ORDERED: ceFAZolin IN SWFI 2 GM/20 ML SYRINGE IVP SCH (09:15)
--- NOTE | 2018-06-17 10:39 | P.PN ---
<Hien Song A - Last Filed: 06/17/18 10:37> Subjective Progress Note Date: 06/17/18 CHIEF COMPLAINT: Abscess in left gluteal region HISTORY OF PRESENT ILLNESS: Patient seen and examined at the bedside. Patient is status post I&D of left buttock abscess. Patient states he is feeling well this morning. He slept well last night. His pain is tolerable at this time. Cultures are positive for MSSA. Infectious disease is on consult. Vital signs are stable. WBC 7.4. PHYSICAL EXAM: VITAL SIGNS: Currently stable. GENERAL: Well-developed in no acute distress. HEENT: No sclera icterus. Extraocular movements grossly intact. Moist buccal mucosa. Head is atraumatic, normocephalic. Hears conversational speech. No nasal drainage. NECK: Supple without lymphadenopathy. CHEST: Non-labored respirations and equal bilateral excursions. CARDIOVASCULAR: Regular rate with regular rhythm. Palpable 2+ radial pulses. ABDOMEN: Soft. Nondistended. Nontender. MUSCULOSKELETAL: No clubbing, cyanosis or edema. Left AKA. NEUROLOGIC: No focal or lateralizing signs. Cranial nerves II through XII grossly intact. PSYCH: Appropriate affect. Alert and oriented to person, place and time. SKIN: Well perfused. Good skin turgor. Dressing to left buttock clean dry intact. francisca drain to left buttock. ASSESSMENT: 1. Left buttock abscess, s/p I&D, cultures positive for presumptive staph aureus 2. Leukocytosis, resolved PLAN: 1. Daily dressing changes to left buttock with 1/2 inch iodoform gauze packing to each side of francisca drain. 2. Continue antibiotics per ID 3. Patient is stable for discharge from a surgical standpoint. He is to follow up with Dr. Luong in 1 week. Nurse practitioner note has been reviewed by physician. Signing provider agrees with the documented findings, assessment, and plan of care. Objective - Vital Signs Vital signs: Vital Signs Temp 98.1 F 06/17/18 07:00 Pulse 95 06/17/18 09:16 Resp 14 06/17/18 07:00 BP 158/70 06/17/18 07:00 Pulse Ox 90 L 06/17/18 07:00 Intake & Output 06/16/18 06/17/18 06/17/18 18:59 06:59 18:59 Intake Total 950 560 Output Total 650 500 600 Balance -650 450 -40 Weight 54.431 kg Intake: Intake, IV Titration 350 Amount Ampicillin-Sulbactam 3 gm 100 In Sodium Chloride 0.9% 100 ml @ 200 mls/hr IVPB Q8HR [facility] Rx#:[id number] Vancomycin 1,000 mg In 250 Sodium Chloride 0.9% 250 ml @ 125 mls/hr IVPB Q12H [facility] Rx#:[id number] Oral 600 560 Output: Urine 650 500 600 Uretheral (Russo) 600 Other: Voiding Method Indwelling Catheter Indwelling Catheter - Labs CBC & Chem 7: 06/17/18 06:56 06/17/18 06:56 Labs: Abnormal Lab Results - Last 24 Hours (Table) 06/16/18 06/16/18 06/16/18 Range/Units 07:19 12:07 16:45 Hgb (13.0-17.5) gm/dL Hct (39.0-53.0) % MCH (25.0-35.0) pg MCHC (31.0-37.0) g/dL RDW (11.5-15.5) % Sodium (137-145) mmol/L Carbon Dioxide (22-30) mmol/L Creatinine (0.66-1.25) mg/dL POC Glucose (mg/dL) 215 H 104 H (75-99) mg/dL Iron 10 L (65-175) ug/dL Iron Saturation 4.37 L (15.00-50.00) AST (17-59) U/L Total Protein (6.3-8.2) g/dL Albumin (3.5-5.0) g/dL 06/16/18 06/17/18 06/17/18 Range/Units 20:17 06:56 06:56 Hgb 10.7 L (13.0-17.5) gm/dL Hct 35.8 L (39.0-53.0) % MCH 24.7 L (25.0-35.0) pg MCHC 30.0 L (31.0-37.0) g/dL RDW 16.9 H (11.5-15.5) % Sodium 136 L (137-145) mmol/L Carbon Dioxide 31 H (22-30) mmol/L Creatinine 0.61 L (0.66-1.25) mg/dL POC Glucose (mg/dL) 120 H (75-99) mg/dL Iron (65-175) ug/dL Iron Saturation (15.00-50.00) AST 15 L (17-59) U/L Total Protein 5.5 L (6.3-8.2) g/dL Albumin 2.6 L (3.5-5.0) g/dL 06/17/18 Range/Units 06:56 Hgb (13.0-17.5) gm/dL Hct (39.0-53.0) % MCH (25.0-35.0) pg MCHC (31.0-37.0) g/dL RDW (11.5-15.5) % Sodium (137-145) mmol/L Carbon Dioxide (22-30) mmol/L Creatinine (0.66-1.25) mg/dL POC Glucose (mg/dL) 108 H (75-99) mg/dL Iron (65-175) ug/dL Iron Saturation (15.00-50.00) AST (17-59) U/L Total Protein (6.3-8.2) g/dL Albumin (3.5-5.0) g/dL Microbiology - Last 24 Hours (Table) 06/14/18 16:31 Anaerobic Culture - Preliminary Buttock 06/14/18 16:31 Gram Stain - Final Buttock Wound Culture - Final Staphylococcus aureus 06/13/18 14:00 Blood Culture Gram Stain - Preliminary Blood <Ganga Luong - Last Filed: 06/17/18 11:32> Subjective As above. Patient doing well today. Pain is improved. Redness seems improved as well. Continue local wound care. Antibiotics per infectious disease. Objective - Vital Signs Vital signs: Vital Signs Temp 98.1 F 06/17/18 07:00 Pulse 95 06/17/18 09:16 Resp 14 06/17/18 07:00 BP 158/70 06/17/18 07:00 Pulse Ox 90 L 06/17/18 07:00 Intake & Output 06/16/18 06/17/18 06/17/18 18:59 06:59 18:59 Intake Total 950 560 Output Total 650 500 600 Balance -650 450 -40 Weight 54.431 kg Intake: Intake, IV Titration 350 Amount Ampicillin-Sulbactam 3 gm 100 In Sodium Chloride 0.9% 100 ml @ 200 mls/hr IVPB Q8HR [facility] Rx#:[id number] Vancomycin 1,000 mg In 250 Sodium Chloride 0.9% 250 ml @ 125 mls/hr IVPB Q12H [facility] Rx#:[id number] Oral 600 560 Output: Urine 650 500 600 Uretheral (Russo) 600 Other: Voiding Method Indwelling Catheter Indwelling Catheter # Voids 1 - Labs CBC & Chem 7: 06/17/18 06:56 06/17/18 06:56 Labs: Abnormal Lab Results - Last 24 Hours (Table) 06/16/18 06/16/18 06/16/18 Range/Units 07:19 12:07 16:45 Hgb (13.0-17.5) gm/dL Hct (39.0-53.0) % MCH (25.0-35.0) pg MCHC (31.0-37.0) g/dL RDW (11.5-15.5) % Sodium (137-145) mmol/L Carbon Dioxide (22-30) mmol/L Creatinine (0.66-1.25) mg/dL POC Glucose (mg/dL) 215 H 104 H (75-99) mg/dL Iron 10 L (65-175) ug/dL Iron Saturation 4.37 L (15.00-50.00) AST (17-59) U/L Total Protein (6.3-8.2) g/dL Albumin (3.5-5.0) g/dL 06/16/18 06/17/18 06/17/18 Range/Units 20:17 06:56 06:56 Hgb 10.7 L (13.0-17.5) gm/dL Hct 35.8 L (39.0-53.0) % MCH 24.7 L (25.0-35.0) pg MCHC 30.0 L (31.0-37.0) g/dL RDW 16.9 H (11.5-15.5) % Sodium 136 L (137-145) mmol/L Carbon Dioxide 31 H (22-30) mmol/L Creatinine 0.61 L (0.66-1.25) mg/dL POC Glucose (mg/dL) 120 H (75-99) mg/dL Iron (65-175) ug/dL Iron Saturation (15.00-50.00) AST 15 L (17-59) U/L Total Protein 5.5 L (6.3-8.2) g/dL Albumin 2.6 L (3.5-5.0) g/dL 06/17/18 06/17/18 Range/Units 06:56 11:05 Hgb (13.0-17.5) gm/dL Hct (39.0-53.0) % MCH (25.0-35.0) pg MCHC (31.0-37.0) g/dL RDW (11.5-15.5) % Sodium (137-145) mmol/L Carbon Dioxide (22-30) mmol/L Creatinine (0.66-1.25) mg/dL POC Glucose (mg/dL) 108 H 114 H (75-99) mg/dL Iron (65-175) ug/dL Iron Saturation (15.00-50.00) AST (17-59) U/L Total Protein (6.3-8.2) g/dL Albumin (3.5-5.0) g/dL Microbiology - Last 24 Hours (Table) 06/14/18 16:31 Anaerobic Culture - Preliminary Buttock 06/14/18 16:31 Gram Stain - Final Buttock Wound Culture - Final Staphylococcus aureus 06/13/18 14:00 Blood Culture Gram Stain - Preliminary Blood
[2018-06-17 11:16] LABS: Glucose,Whole Blood 114 mg/dL (75-99)
[2018-06-17 12:04] LABS: Glucose,Whole Blood 111 mg/dL (75-99)
[2018-06-17] MEDS: HYDROcodone/APAP 10-325MG 1 EACH TAB PO PRN (13:40)
--- NOTE | 2018-06-17 13:55 | P.DS ---
Providers Date of admission: 06/13/18 17:19 Expected date of discharge: 06/17/18 Attending physician: Fidencio Barrientos Consults: 06/13/18 17:16 Consult Physician Stat Consulting Provider: Ganga Luong Consult Reason/Comments: abscess in L gluteal region Do you want consulting provider notified?: Yes 06/13/18 17:17 Consult Physician Stat Consulting Provider: Matty Carter Consult Reason/Comments: abscess in L gluteal region Do you want consulting provider notified?: Yes Primary care physician: Fidencio [facility] Course: Discharge diagnosis 1. Left gluteal abscess status post incision and drainage. Wound culture growing MSSA. ID is recommending Keflex 500 mg by mouth every 8 hours for 2 weeks 2. Urinary retention: Resolved. Russo catheter has been removed. Patient urinating without difficulty. 3. Essential hypertension 4. COPD: Continue albuterol inhaler as needed. Chest x-ray shows no acute process. But did no lung parenchymal findings. Chest x-ray stated scattered shadows most consistent with senescent change. However, without prior imaging studies it is difficult to exclude pathology. Would advise low threshold for CT imaging in this patient. Further reimaging can be completed outpatient. 5. Diabetes mellitus type 2 continue metformin A1c is 6.5 6. History of coronary artery disease and cardiac stents 7. History of myocardial infarction 8. History of peripheral vascular disease with left below the knee amputation 9. History of necrotizing fasciitis of the groin and scrotal area requiring left orchiectomy 10. Nicotine dependence: Discussed smoking cessation for greater than 3 minutes. Patient currently on Wellbutrin and nicotine patch 11. Constipation : Improved continue the Colace 12. Anemia: Likely multifactorial due to iron deficiency anemia, current infection, surgical intervention and malnutrition. Iron low at 10 13. Severe protein calorie malnutrition continue protein supplement 14. Generalized anxiety disorder continue the [facility] course This is a 68-year-old male with a known history of hypertension, diabetes, peripheral vascular disease with a left below-knee amputation, myocardial infarction, coronary artery disease with previous cardiac stents, COPD, nicotine dependence, necrotizing fasciitis of the left groin and scrotum with left orchiectomy. Patient reports he is mostly wheelchair bound and does get pressure sores on his buttocks area. Reports the left gluteal area had a small red bump noted about a week ago. And over the weekend the size continued to increase and became sore. He denies any injury to the area there's been no drainage or cuts noted. He presented to the ER for further evaluation and treatment white count elevated at 22.7 BUN 38 lactic acid normal at 0.9 was given a dose of IV Kefzol and then started on IV Unasyn and IV vancomycin in the ER. Infectious disease and surgical service were consulted. Patient did have a computed tomography scan of the pelvis showing suspected underlying abscess or phlegmon. CAT scan shows abnormal increased soft tissue attenuation at the level of the posterior pelvis, left gluteal region, some increased subcutaneous fat density with suggestion of an oval area of the lower attenuation measuring approximate 6 x 2 x 2 cm representing an underlying phlegmon or abscess coursing posterior and inferior to the left ischial tuberosity. Patient also had evidence of urinary retention and Russo catheter was inserted. He had retained 800. Patient reports low-grade temps of 99 at home as well as chills. Denies any nausea or vomiting, bowel movement changes, denies any chest pain or shortness of breath. Denies any burning with urination. On 06/15/2018 patient is alert and oriented 3. Patient is status post incision and drainage of abscess with Dr. bronson. Patient denies chest pain or shortness breath. Patient denies nausea vomiting or diarrhea. Patient denies any urinary burning or frequency 06/16/2018 patient reports that his pain is controlled. His wound culture is growing presumptive staph aureus. He is currently on Unasyn and vancomycin. Patient complaining of constipation and his been over 3 days since his last bowel movement. Colace and lactulose have been ordered. Patient denies any chest pain or shortness of breath. Denies any nausea or vomiting. Still has F oley catheter in place. Patient is requesting that the Russo catheter states at least one more day. EKG showing sinus rhythm with PACs 06/17/2018 patient is medically stable for discharge to [facility]. He has been cleared by both the surgical service and infectious disease. Surgical service has placed wound care instructions on discharge. Patient wound culture grew MSSA and infectious diseases recommending Keflex for another 2 weeks. Patient's urinary retention did resolve. Patient did have evidence of anemia which is likely multifactorial due to iron deficiency anemia malnutrition and current infection as well as surgical intervention. Patient has been started on iron supplement and would recommend repeating CBC in 1 week. Hemoglobin at discharge is 10.7. Patient is stable for discharge. Please refer to chart for any further details. I performed an examination of the patient and discussed their management with the physician Senior Corporate Strategy Manager. I have reviewed the Physician Senior Corporate Strategy Manager's notes and agree with the documented findings and plan of care Patient Condition at Discharge: Stable Plan - Discharge Summary Discharge Rx Participant: No New Discharge Prescriptions: New Cephalexin [Keflex] 500 mg PO Q8HR #42 cap Docusate [Colace] 100 mg PO BID cap Nicotine 21Mg/24Hr Patch [Habitrol] 1 patch TRANSDERM DAILY patch Ferrous Sulfate [Iron (65 MG Elemental)] 325 mg PO BID-W/MEALS tab Clotrimazole Cream [Lotrimin Cream] 1 applic TOPICAL BID applic Continue Aspirin 81 mg PO DAILY metFORMIN HCL [Glucophage] 500 mg PO BID DULoxetine HCL [Cymbalta] 60 mg PO W/SUPPER Lisinopril [Prinivil] 20 mg PO QAM B Complex-Vit C-Vit E-Zinc [Z-Bec] 1 tab PO DAILY Omeprazole [PriLOSEC] 20 mg PO BID buPROPion XL [Wellbutrin XL] 150 mg PO DAILY Pantoprazole Sodium [Protonix] 40 mg PO DAILY Escitalopram [Lexapro] 10 mg PO DAILY Simethicone [Gas-X] 125 mg PO DAILY PRN PRN Reason: Gi Upset L.acidoph,Paracasei, B.lactis [Probiotic] 1 cap PO DAILY amLODIPine [Norvasc] 5 mg PO DAILY fentaNYL 100MCG/HR PATCH [Duragesic 100MCG/HR] 100 mcg TRANSDERM Q72H #1 patch Gabapentin [Neurontin] 300 mg PO TID #9 cap Hydrocodone/Acetaminophen [Anderson 10-325] 1 tab PO Q6H PRN #12 tablet PRN Reason: Pain ALPRAZolam [Xanax] 1 mg PO HS PRN #3 tablet PRN Reason: Anxiety Discharge Medication List Aspirin 81 mg PO DAILY 01/14/14 [History] DULoxetine HCL [Cymbalta] 60 mg PO W/SUPPER 01/14/14 [History] Lisinopril [Prinivil] 20 mg PO QAM 01/14/14 [History] metFORMIN HCL [Glucophage] 500 mg PO BID 01/14/14 [History] B Complex-Vit C-Vit E-Zinc [Z-Bec] 1 tab PO DAILY 04/02/15 [History] Omeprazole [PriLOSEC] 20 mg PO BID 04/02/15 [History] Escitalopram [Lexapro] 10 mg PO DAILY 06/13/18 [History] L.acidoph,Paracasei, B.lactis [Probiotic] 1 cap PO DAILY 06/13/18 [History] Pantoprazole Sodium [Protonix] 40 mg PO DAILY 06/13/18 [History] Simethicone [Gas-X] 125 mg PO DAILY PRN 06/13/18 [History] amLODIPine [Norvasc] 5 mg PO DAILY 06/13/18 [History] buPROPion XL [Wellbutrin XL] 150 mg PO DAILY 06/13/18 [History] ALPRAZolam [Xanax] 1 mg PO HS PRN #3 tablet 06/17/18 [Rx] Cephalexin [Keflex] 500 mg PO Q8HR #42 cap 06/17/18 [Rx] Clotrimazole Cream [Lotrimin Cream] 1 applic TOPICAL BID applic 06/17/18 [Rx] Docusate [Colace] 100 mg PO BID cap 06/17/18 [Rx] Ferrous Sulfate [Iron (65 MG Elemental)] 325 mg PO BID-W/MEALS tab 06/17/18 [Rx] Gabapentin [Neurontin] 300 mg PO TID #9 cap 06/17/18 [Rx] Hydrocodone/Acetaminophen [Anderson 10-325] 1 tab PO Q6H PRN #12 tablet 06/17/18 [Rx] Nicotine 21Mg/24Hr Patch [Habitrol] 1 patch TRANSDERM DAILY patch 06/17/18 [Rx] fentaNYL 100MCG/HR PATCH [Duragesic 100MCG/HR] 100 mcg TRANSDERM Q72H #1 patch 06/17/18 [Rx] Follow up Appointment(s)/Referral(s): Fidencio Barrientos MD [Primary Care Provider] - 1 Week Ganga Luong MD [Medical Doctor] - 1 Week Ambulatory/Diagnostic Orders: Complete Blood Count w/diff [LAB.AMB] Time Frame: 1 Week, Location: None Selected Ambulatory Miscellaneous Order [MISC.AMB] Location: None Selected Activity/Diet/Wound Care/Special Instructions: Diet: cardiac, diabetic, Protein shakes Activity: as tolerated Wound care per surgeon instructions ok to discharge to [facility] Discharge Disposition: TRANSFER TO SNF/ECF
[2018-06-17 14:49] VITALS: BP 125/67; PULSE 61; RESP 16; TEMP 98.5
--- NOTE | 2018-06-17 21:58 | P.PN ---
Subjective Progress Note Date: 06/17/18 This is a 68-year-old male who gives history that he noticed a soft lump on the left buttocks crease about a week ago. He states it was not very bothersome the first day but by the second day it started becoming painful. Over the following week the area became increasingly painful with swelling and redness. He has not had nausea, vomiting, fever or chills. No shortness of breath. He does state he has a cough with sputum production. He came into the [facility] emergency center for evaluation. He was found to be afebrile, white count 22.7, creatinine 0.78, blood sugar 106, lactic acid 0.9, albumin 3.5. Urinalysis was negative. Blood culture status received. No wound culture has been obtained as there is no drainage. CAT scan of the pelvis with contrast showed suspected abscess or phlegmon in the left gluteal measuring 6 x 2 x 2. Patient was given a dose of and vancomycin and admitted to the [facility] floor and consult was also requested with Dr. Luong. 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 He is non-ambulatory and is wheelchair/power chair bound. 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 He has been on disability due to a mental health issue. He is currently an active smoker but is hoping to quit. 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 He has had a weight loss from 285 pounds 220 pounds over the past 10 years not actively trying. He states he has no appetite. Dentition is in poor order which also affects his food intake. His hemoglobin A1c normally runs between 5.9 and 6.8. He does not check his blood sugars at home. Patient also relates that he has had several falls at home over the past couple months. Discussed discharge planning with possible IV antibiotics and he would prefer to return home as his needs his assistance. 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 06/15/2018 Patient is feeling better today status post his incision and drainage. Is complaining of some pain at the site. There has not been a large amount of drainage. Overall he is not feeling poorly and blood sugars have been about 140. His appetite is adequate. Despite this his protein is low, and he is perplexed given his high protien diet. We discuss his BMI of 15 which is very low. Will go to rehab if IVABX are needed. 06/16/2018 patient has improved and will transfer to rehab today. Pain is controlled, will need wound care orders. Objective - Vital Signs Vital signs: Vital Signs Temp 98.5 F 06/17/18 14:47 Pulse 61 06/17/18 14:47 Resp 16 06/17/18 14:47 BP 125/67 06/17/18 14:47 Pulse Ox 93 L 06/17/18 14:47 Intake & Output 06/17/18 06/17/18 06/18/18 06:59 18:59 06:59 Intake Total 950 680 Output Total 500 900 Balance 450 -220 Intake: Intake, IV Titration 350 Amount Ampicillin-Sulbactam 3 gm 100 In Sodium Chloride 0.9% 100 ml @ 200 mls/hr IVPB Q8HR [facility] Rx#:[id number] Vancomycin 1,000 mg In 250 Sodium Chloride 0.9% 250 ml @ 125 mls/hr IVPB Q12H [facility] Rx#:[id number] Oral 600 680 Output: Urine 500 900 Uretheral (Russo) 600 Other: Voiding Method Indwelling Catheter # Voids 1 - Exam Gen: This is a cachectic-appearing 68-year-old male. He is resting in bed and appears to be comfortable and in no acute distress. No respiratory distress noted. HEENT: Head is atraumatic, normocephalic. Pupils equal, round. Sclerae is anicteric. Conjunctiva pink. Mucous membranes of the mouth are moist. Dentition is in poor order. No lesions noted. NECK: Supple. No JVD. No lymphadenopathy. No thyromegaly. LUNGS: Scattered inspiratory and expiratory wheeze. No intercostal retractions. HEART: Regular rate and rhythm. No murmur. ABDOMEN: Soft. Bowel sounds are present. No masses. No tenderness. EXTREMITIES: No pedal edema to the right lower extremity. Onychomycosis to all toes. Dorsalis pedis is weak. To be left [id number] stump, no open wounds. The surgical site is dressed and intact. francisca in place with drainage. NEUROLOGICAL: Patient is awake, alert and oriented x3. Cranial nerves 2 through 12 are grossly intact. - Labs CBC & Chem 7: 06/17/18 06:56 06/17/18 06:56 Labs: Abnormal Lab Results - Last 24 Hours (Table) 06/17/18 06/17/18 06/17/18 Range/Units 06:56 06:56 06:56 Hgb 10.7 L (13.0-17.5) gm/dL Hct 35.8 L (39.0-53.0) % MCH 24.7 L (25.0-35.0) pg MCHC 30.0 L (31.0-37.0) g/dL RDW 16.9 H (11.5-15.5) % Sodium 136 L (137-145) mmol/L Carbon Dioxide 31 H (22-30) mmol/L Creatinine 0.61 L (0.66-1.25) mg/dL POC Glucose (mg/dL) 108 H (75-99) mg/dL AST 15 L (17-59) U/L Total Protein 5.5 L (6.3-8.2) g/dL Albumin 2.6 L (3.5-5.0) g/dL 06/17/18 06/17/18 Range/Units 11:05 11:52 Hgb (13.0-17.5) gm/dL Hct (39.0-53.0) % MCH (25.0-35.0) pg MCHC (31.0-37.0) g/dL RDW (11.5-15.5) % Sodium (137-145) mmol/L Carbon Dioxide (22-30) mmol/L Creatinine (0.66-1.25) mg/dL POC Glucose (mg/dL) 114 H 111 H (75-99) mg/dL AST (17-59) U/L Total Protein (6.3-8.2) g/dL Albumin (3.5-5.0) g/dL Microbiology - Last 24 Hours (Table) 06/14/18 16:31 Anaerobic Culture - Preliminary Buttock 06/14/18 16:31 Gram Stain - Final Buttock Wound Culture - Final Staphylococcus aureus Laboratory Results WBC 7.4 k/uL (3.8-10.6) 06/17/18 06:56 RBC 4.35 m/uL (4.30-5.90) 06/17/18 06:56 Hgb 10.7 gm/dL (13.0-17.5) L 06/17/18 06:56 Hct 35.8 % (39.0-53.0) L 06/17/18 06:56 MCV 82.2 fL (80.0-100.0) 06/17/18 06:56 MCH 24.7 pg (25.0-35.0) L 06/17/18 06:56 MCHC 30.0 g/dL (31.0-37.0) L 06/17/18 06:56 RDW 16.9 % (11.5-15.5) H 06/17/18 06:56 Plt Count 414 k/uL (150-450) 06/17/18 06:56 Neutrophils % 77 % 06/17/18 06:56 Lymphocytes % 13 % 06/17/18 06:56 Monocytes % 6 % 06/17/18 06:56 Eosinophils % 3 % 06/17/18 06:56 Basophils % 1 % 06/17/18 06:56 Neutrophils # 5.7 k/uL (1.3-7.7) 06/17/18 06:56 Lymphocytes # 1.0 k/uL (1.0-4.8) 06/17/18 06:56 Monocytes # 0.4 k/uL (0-1.0) 06/17/18 06:56 Eosinophils # 0.3 k/uL (0-0.7) 06/17/18 06:56 Basophils # 0.0 k/uL (0-0.2) 06/17/18 06:56 Hypochromasia Moderate 06/17/18 06:56 Anisocytosis Slight 06/17/18 06:56 Microcytosis Slight 06/13/18 14:00 Sodium 136 mmol/L (137-145) L 06/17/18 06:56 Potassium 4.1 mmol/L (3.5-5.1) 06/17/18 06:56 Chloride 100 mmol/L (98-107) 06/17/18 06:56 Carbon Dioxide 31 mmol/L (22-30) H 06/17/18 06:56 Anion Gap 5 mmol/L 06/17/18 06:56 BUN 15 mg/dL (9-20) 06/17/18 06:56 Creatinine 0.61 mg/dL (0.66-1.25) L 06/17/18 06:56 Est GFR (CKD-EPI)AfAm >90 (>60 ml/min/1.73 sqM) 06/17/18 06:56 Est GFR (CKD-EPI)NonAf >90 (>60 ml/min/1.73 sqM) 06/17/18 06:56 Glucose 87 mg/dL (74-99) 06/17/18 06:56 POC Glucose (mg/dL) 111 mg/dL (75-99) H 06/17/18 11:52 POC Glu [employer] ID Tesha Schmitz 06/17/18 11:[address] Glu mg/dL 140 06/14/18 08:10 Hemoglobin A1c 6.5 % (4.0-6.0) H 06/14/18 08:10 Plasma Lactic Acid Mike 0.9 mmol/L (0.7-2.0) 06/13/18 17:10 Calcium 8.6 mg/dL (8.4-10.2) 06/17/18 06:56 Iron 10 ug/dL (65-175) L 06/16/18 07:19 TIBC 229 ug/dL (228-460) 06/16/18 07:19 Iron Saturation 4.37 (15.00-50.00) L 06/16/18 07:19 Ferritin 92.3 ng/mL (22.0-322.0) 06/16/18 07:19 Total Bilirubin 0.5 mg/dL (0.2-1.3) 06/17/18 06:56 AST 15 U/L (17-59) L 06/17/18 06:56 ALT 25 U/L (21-72) 06/17/18 06:56 Alkaline Phosphatase 56 U/L (38-126) 06/17/18 06:56 Total Protein 5.5 g/dL (6.3-8.2) L 06/17/18 06:56 Albumin 2.6 g/dL (3.5-5.0) L 06/17/18 06:56 Urine Color Yellow 06/13/18 16:10 Urine Appearance Clear (Clear) 06/13/18 16:10 Urine pH 5.0 (5.0-8.0) 06/13/18 16:10 Ur Specific [place] 1.019 (1.001-1.035) 06/13/18 16:10 Urine Protein Trace (Negative) H 06/13/18 16:10 Urine Glucose (UA) Negative (Negative) 06/13/18 16:10 Urine Ketones Negative (Negative) 06/13/18 16:10 Urine Blood Negative (Negative) 06/13/18 16:10 Urine Nitrite Negative (Negative) 06/13/18 16:10 Urine Bilirubin Negative (Negative) 06/13/18 16:10 Urine Urobilinogen <2.0 mg/dL (<2.0) 06/13/18 16:10 Ur Leukocyte Esterase Negative (Negative) 06/13/18 16:10 Vancomycin Trough 15.7 ug/mL 06/17/18 06:56 Microbiology 06/14/18 16:31 Buttock Anaerobic Culture - Preliminary 06/14/18 16:31 Buttock Gram Stain - Final 06/14/18 16:31 Buttock Wound Culture - Final Staphylococcus aureus 06/13/18 14:00 Blood Blood Culture Gram Stain - Preliminary 06/13/18 14:00 Blood Blood Culture - Final Assessment and Plan (1) Diabetes mellitus Status: Acute Code(s): E11.9 - TYPE 2 DIABETES MELLITUS WITHOUT COMPLICATIONS SNOMED Code(s): 47088689 (2) History of left above knee amputation Status: Acute Code(s): Z89.612 - ACQUIRED ABSENCE OF LEFT LEG ABOVE KNEE SNOMED Code(s): 338185130 (3) Cutaneous abscess of buttock Narrative/Plan: 68 year old man with DM and many complications presents with the painful abscess of the buttocks now has had Incision and drainage. Feeling better overall but still has some discomfort at the site. Patient is instructed about the importance of protein intake. He is receiving a multivitamin. Is also rec eiving protein supplements. He is distinctly underweight and needs to improve his protein intake to allow healing. He is working with the team to improve his glucose control also. Cultures are awaited there is concern that this will be MRSA and he required vancomycin therapy. He relates that he would be doing this in an extended care and could not handle this at home. Wound care has been prescribed by the surgeon will assist after discharge. Antibioitc therapy with cephalexin sent to [facility], can follow in wound cneter Status: Acute Code(s): L02.31 - CUTANEOUS ABSCESS OF BUTTOCK SNOMED Code(s): 81307550
== END 2018-06-17 15:35 | DRG 579 ==
LOC: EC 13:05 → 4MS4W 17:19 → 4SSUR 06-16 18:46
PROVIDERS: ADMIT Internal Medicine; ATTEND Internal Medicine
PROC: 0J990ZZ Drainage of Buttock Subcutaneous Tissue and Fascia, Open Approach (ICD-10-PCS; principal; 2018-06-14 09:20)
DX: L02.31 Cutaneous abscess of buttock (principal); E43 Unspecified severe protein-calorie malnutrition; Z68.1 Body mass index [BMI] 19.9 or less, adult; E11.51 Type 2 diabetes mellitus with diabetic peripheral angiopathy without gangrene; J44.9 Chronic obstructive pulmonary disease, unspecified; B02.9 Zoster without complications; B95.7 Other staphylococcus as the cause of diseases classified elsewhere; I25.2 Old myocardial infarction; I10 Essential (primary) hypertension; M19.90 Unspecified osteoarthritis, unspecified site; M54.9 Dorsalgia, unspecified; G89.29 Other chronic pain; G43.909 Migraine, unspecified, not intractable, without status migrainosus; I25.10 Atherosclerotic heart disease of native coronary artery without angina pectoris; D50.9 Iron deficiency anemia, unspecified; K59.00 Constipation, unspecified; F41.1 Generalized anxiety disorder; F17.200 Nicotine dependence, unspecified, uncomplicated; F32.9 Major depressive disorder, single episode, unspecified; R33.9 Retention of urine, unspecified; Z71.3 Dietary counseling and surveillance; Z71.6 Tobacco abuse counseling; Z79.82 Long term (current) use of aspirin; Z79.899 Other long term (current) drug therapy; Z79.84 Long term (current) use of oral hypoglycemic drugs; Z86.14 Personal history of Methicillin resistant Staphylococcus aureus infection; Z89.612 Acquired absence of left leg above knee; Z90.79 Acquired absence of other genital organ(s); Z87.39 Personal history of other diseases of the musculoskeletal system and connective tissue; Z95.5 Presence of coronary angioplasty implant and graft; Z91.81 History of falling; Z88.1 Allergy status to other antibiotic agents; Z80.3 Family history of malignant neoplasm of breast
CPT/HCPCS: 36415; 51798; 71046; 72193; 80053; 80202; 81003; 82728; 83036; 83540; 83550; 83605; 85025; 87040; 87070; 87075; 87077; 87186; 87205; 93005; 94640; 94760; 96361; 96365; 96367; 99285

== ENCOUNTER 2020-07-16 05:42 | Inpatient (IN) | payer MEDICARE ==
[2020-07-16] MEDS ORDERED: LORazepam 2 MG/ML INJ IM STA (05:45)
[2020-07-16] MEDS ORDERED: HYDROmorphone 1 MG/ML 1 ML SYRINGE IVP STA (05:56)
[2020-07-16] MEDS ORDERED: diphenhydrAMINE 50 MG/ML 1 ML VIAL IVP STA (05:56)
[2020-07-16] MEDS ORDERED: SODIUM CHLORIDE 0.9% 1,000 ML IV STA ×2 (05:56)
[2020-07-16 06:37] LABS: Basophils # (A) 0.1 k/uL (0-0.2); Basophils % (A) 0 %; Eosinophils # (A) 0.1 k/uL (0-0.7); Eosinophils % (A) 1 %; HCT 37.1 % (39.0-53.0); Hypochromasia Slight; Lymphocytes # (A) 0.7 k/uL (1.0-4.8); Lymphocytes % (A) 3 %; MCH 28.1 pg (25.0-35.0); MCHC 32.5 g/dL (31.0-37.0); MCV 86.6 fL (80.0-100.0); Mean Platelet Volume 8.7; Monocytes % (A) 5 %; Neutrophils # (A) 17.4 k/uL (1.3-7.7); Neutrophils % (A) 90 %; Platelet Count 567 k/uL (150-450); RBC 4.28 m/uL (4.30-5.90); WBC 19.4 k/uL (3.8-10.6)
[2020-07-16 06:56] LABS: Appearance,Urine Cloudy (Clear); Bacteria,Urine Rare /hpf; Bilirubin,Urine Negative (Negative); Blood,Urine Large (Negative); Budding Yeast,Urine Moderate /hpf; Color,Urine Light Red; Glucose,Urine (UA) Negative (Negative); Hyaline Casts,Urine 4 /lpf (0-2); Ketones,Urine Negative (Negative); Leukocyte Esterase,Urine Negative (Negative); Mucus,Urine Rare /hpf; Nitrite,Urine Negative (Negative); Protein,Urine 1+ (Negative); RBC,Urine >182 /hpf (0-5); Specific Gravity,Urine 1.014 (1.001-1.035); Squamous Epithelial Cell,Urine <1 /hpf (0-4); Urobilinogen,Urine <2.0 mg/dL (<2.0); WBC,Urine 9 /hpf (0-5)
[2020-07-16 07:06] LABS: Partial Thromboplastin Time 23.1 sec (22.0-30.0); Prothrombin Time 10.8 sec (9.0-12.0)
--- NOTE | 2020-07-16 07:07 | ED ---
Altered Mental Status HPI - General Source: EMS, RN notes reviewed, old records reviewed Mode of arrival: EMS Limitations: no limitations - History of Present Illness MD Complaint: altered mental status, confusion -: days(s) Severity: severe Consistency of Symptoms: waxing and waning Context: history of similar presentation Associated Symptoms: other (Back pain) Treatments Prior to Arrival: other pre-hospital medication (Pain medication) <Felix Martin - Last Filed: 07/16/20 07:06> <Mohan Zhao - Last Filed: 07/20/20 13:20> - General Chief Complaint: Recheck/Abnormal Lab/Rx Stated Complaint: Altered Mental Status Time Seen by Provider: 07/16/20 05:48 - Related Data Home Medications Medication Instructions Recorded Confirmed Aspirin 81 mg PO DAILY 01/14/14 07/16/20 DULoxetine HCL [Cymbalta] 60 mg PO W/SUPPER 01/14/14 07/16/20 lisinopriL [Prinivil] 20 mg PO QAM 01/14/14 07/16/20 metFORMIN HCL [Glucophage] 500 mg PO BID 01/14/14 07/16/20 Escitalopram [Lexapro] 10 mg PO DAILY 06/13/18 07/16/20 Pantoprazole Sodium [Protonix] 40 mg PO DAILY 06/13/18 07/16/20 amLODIPine [Norvasc] 5 mg PO DAILY 06/13/18 07/16/20 Albuterol Inhaler [Ventolin Hfa 2 puff INHALATION RT-QID PRN 07/16/20 07/16/20 Inhaler] Cholecalciferol (Vitamin D3) 250 mcg PO VEE 07/16/20 07/16/20 [Vitamin D3 (5000 Iu)] Enulose 10gm/15ml 20 gm PO Q48H PRN 07/16/20 07/16/20 Multivitamins, Thera [Multivitamin 1 tab PO DAILY 07/16/20 07/16/20 (formulary)] Previous Rx's Medication Instructions Recorded Gabapentin [Neurontin] 300 mg PO TID #9 cap 06/17/18 Hydrocodone/Acetaminophen [[place] 1 tab PO Q6H PRN #12 tablet 06/17/18 10-325] fentaNYL 100MCG/HR PATCH 100 mcg TRANSDERM Q72H #1 patch 06/17/18 [Duragesic 100MCG/HR] Atorvastatin [Lipitor] 80 mg PO DAILY #30 tab 07/20/20 Budesonide-Formot 160-4.5 Mcg 2 puff INHALATION BID #1 inhaler 07/20/20 [Symbicort 160-4.5 Mcg Inhaler] Clopidogrel [Plavix] 75 mg PO DAILY #30 tab 07/20/20 Metoprolol Succinate (ER) [Toprol 25 mg PO DAILY #30 tab.er.24h 07/20/20 XL] Nitroglycerin Sl Tabs [Nitrostat] 0.4 mg SUBLINGUAL Q5M PRN #30 tab 07/20/20 Tamsulosin [Flomax] 0.4 mg PO PC-SUPPER #30 cap.er.24h 07/20/20 Allergies Allergy/AdvReac Type Severity Reaction Status Date / Time azithromycin [From Zithromax] Allergy Rash/Hives Verified 07/16/20 07:39 Review of Systems ROS Other: All systems not noted in ROS Statement are negative. <Felix Martin - Last Filed: 07/16/20 07:06> ROS Other: All systems not noted in ROS Statement are negative. <Mohan Zhao - Last Filed: 07/20/20 13:20> ROS Statement: Those systems with pertinent positive or pertinent negative responses have been documented in the HPI. Past Medical History Past Medical History: COPD, Diabetes Mellitus, Hypertension, Myocardial Inf arction (LA), Osteoarthritis (OA), Vascular Disorder Additional Past Medical History / Comment(s): hx migraines, hx shingles, 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 left testicle removed. heart stent x1 Past Anesthesia/Blood Transfusion Reactions: No Reported Reaction Date of Last Stent Placement:: 2007 Past Psychological History: Depression Past Alcohol Use History: None Reported Past Drug Use History: Marijuana - Past Family History Sister(s) Family Medical History: Cancer Additional Family Medical History / Comment(s): double mastectomy, still surviving Father Family Medical History: No Reported History Mother Family Medical History: No Reported History Additional Family Medical History / Comment(s): hpoglycemia <ErnestinejacquelinFelix - Last Filed: 07/16/20 07:06> General Exam Limitations: altered mental status General appearance: alert, in no apparent distress, anxious, in distress Head exam: Present: atraumatic, normocephalic, normal inspection Eye exam: Present: normal appearance, PERRL, EOMI. Absent: scleral icterus, conjunctival injection, periorbital swelling ENT exam: Present: normal exam, mucous membranes moist Neck exam: Present: normal inspection. Absent: tenderness, meningismus, lymphadenopathy Respiratory exam: Present: normal lung sounds bilaterally. Absent: respiratory distress, wheezes, rales, rhonchi, stridor Cardiovascular Exam: Present: normal rhythm, tachycardia, normal heart sounds. Absent: systolic murmur, diastolic murmur, rubs, gallop, clicks GI/Abdominal exam: Present: soft, normal bowel sounds. Absent: distended, tenderness, guarding, rebound, rigid Extremities exam: Present: normal inspection, full ROM, normal capillary refill. Absent: tenderness, pedal edema, joint swelling, calf tenderness Back exam: Present: normal inspection Neurological exam: Present: alert, oriented X3, CN II-XII intact Psychiatric exam: Present: normal affect, normal mood Skin exam: Present: warm, dry, intact, normal color. Absent: rash <Felix Martin - Last Filed: 07/16/20 07:06> Course Vital Signs 07/16/20 07/16/20 07/16/20 06:08 11:00 12:57 Temperature 98.5 F Pulse Rate 120 H 68 Respiratory 28 H 18 Rate Blood Pressure 172/104 152/78 O2 Sat by Pulse 93 L 93 L Oximetry 07/16/20 07/16/20 07/16/20 15:33 18:00 18:37 Temperature 98.5 F Pulse Rate 98 109 H 109 H Respiratory 18 21 21 Rate Blood Pressure 175/100 190/98 190/98 O2 Sat by Pulse 96 96 96 Oximetry Medical Decision Making - Lab Data Result diagrams: 07/16/20 06:20 <Felix Martin - Last Filed: 07/16/20 07:06> - Lab Data Result diagrams: 07/18/20 06:10 07/20/20 09:01 <Mohan Zhao - Last Filed: 07/20/20 13:20> - Medical Decision Making Patient care is signed out to me by previous shift physician Dr. Lui. Patient brought to the emergency department for acute distress and altered mental status. Patient work up was initiated by previous shift physician. Patient had white count 19.4. Coag panel is unremarkable. Lactic acidosis 5.4. There is 182 red blood cells and 9 white blood cells in the urinalysis. Parents are out was to follow-up with pending imaging studies. Patient was given sedating medications. Patient is much more comfortable after that intervention. Patient is evaluated at bedside. He is resting comfortably however had significant amounts of medications that probably caused him to be sedated. Computed tomography scan of the brain is unremarkable. Computed tomography scan of the chest abdomen pelvis shows patchy nodular areas temperature at the lung base as well as right upper lobe posteriorly measuring up to 1.6 cm. There is also a moderate T12 compression fracture of the loss of height at 50% uncertain age. is at bedside reports that patient has had issues with urination 4 months. She has had urinary retention and urinary frequency. reports patient has had history of chronic back pain WORSENED last or 4 days. He does also have worsening urinary symptoms. MRI was ordered. On patient's CT there is concern of infiltrates. He does have findings suspicious of infection. Patient given antibiotics. MRI is ordered. Case is discussed Dr. Hermosillo who is willing to accept patient's care. Orthopedic surgery was contacted. (Mohan Zhao) - Lab Data Lab Results 07/16/20 07/16/20 07/16/20 Range/Units 06:20 06:20 06:20 WBC 19.4 H (3.8-10.6) k/uL RBC 4.28 L (4.30-5.90) m/uL Hgb 12.0 L (13.0-17.5) gm/dL Hct 37.1 L (39.0-53.0) % MCV 86.6 (80.0-100.0) fL MCH 28.1 (25.0-35.0) pg MCHC 32.5 (31.0-37.0) g/dL RDW 15.0 (11.5-15.5) % Plt Count 567 H (150-450) k/uL MPV 8.7 Neutrophils % 90 % Lymphocytes % 3 % Monocytes % 5 % Eosinophils % 1 % Basophils % 0 % Neutrophils # 17.4 H (1.3-7.7) k/uL Lymphocytes # 0.7 L (1.0-4.8) k/uL Monocytes # 1.0 (0-1.0) k/uL Eosinophils # 0.1 (0-0.7) k/uL Basophils # 0.1 (0-0.2) k/uL Hypochromasia Slight PT 10.8 (9.0-12.0) sec INR 1.0 (<1.2) APTT 23.1 (22.0-30.0) sec Sodium (137-145) mmol/L Potassium (3.5-5.1) mmol/L Chloride (98-107) mmol/L Carbon Dioxide (22-30) mmol/L Anion Gap mmol/L BUN (9-20) mg/dL Creatinine (0.66-1.25) mg/dL Est GFR (CKD-EPI)AfAm (>60 ml/min/1.73 sqM) Est GFR (CKD-EPI)NonAf (>60 ml/min/1.73 sqM) Glucose (74-99) mg/dL Lactic Ac Sepsis Rflx Plasma Lactic Acid Mike (0.7-2.0) mmol/L Calcium (8.4-10.2) mg/dL Phosphorus (2.5-4.5) mg/dL Magnesium (1.6-2.3) mg/dL Total Bilirubin (0.2-1.3) mg/dL AST (17-59) U/L ALT (4-49) U/L Alkaline Phosphatase (38-126) U/L Troponin I (0.000-0.034) ng/mL NT-Pro-B Natriuret Pep pg/mL Total Protein (6.3-8.2) g/dL Albumin (3.5-5.0) g/dL Urine Color Light Red Urine Appearance Cloudy (Clear) Urine pH 5.0 (5.0-8.0) Ur Specific [place] 1.014 (1.001-1.035) Urine Protein 1+ H (Negative) Urine Glucose (UA) Negative (Negative) Urine Ketones Negative (Negative) Urine Blood Large H (Negative) Urine Nitrite Negative (Negative) Urine Bilirubin Negative (Negative) Urine Urobilinogen <2.0 (<2.0) mg/dL Ur Leukocyte Esterase Negative (Negative) Urine RBC >182 H (0-5) /hpf Urine WBC 9 H (0-5) /hpf Ur Squamous Epith Cells <1 (0-4) /hpf Urine Bacteria Rare H (None) /hpf Hyaline Casts 4 H (0-2) /lpf Urine Mucus Rare H (None) /hpf Urine Yeast (Budding) Moderate H (None) /hpf 07/16/20 07/16/20 07/16/20 Range/Units 06:20 06:20 07:03 WBC (3.8-10.6) k/uL RBC (4.30-5.90) m/uL Hgb (13.0-17.5) gm/dL Hct (39.0-53.0) % MCV (80.0-100.0) fL MCH (25.0-35.0) pg MCHC (31.0-37.0) g/dL RDW (11.5-15.5) % Plt Count (150-450) k/uL MPV Neutrophils % % Lymphocytes % % Monocytes % % Eosinophils % % Basophils % % Neutrophils # (1.3-7.7) k/uL Lymphocytes # (1.0-4.8) k/uL Monocytes # (0-1.0) k/uL Eosinophils # (0-0.7) k/uL Basophils # (0-0.2) k/uL Hypochromasia PT (9.0-12.0) sec INR (<1.2) APTT (22.0-30.0) sec Sodium (137-145) mmol/L Potassium (3.5-5.1) mmol/L Chloride (98-107) mmol/L Carbon Dioxide (22-30) mmol/L Anion Gap mmol/L BUN (9-20) mg/dL Creatinine (0.66-1.25) mg/dL Est GFR (CKD-EPI)AfAm (>60 ml/min/1.73 sqM) Est GFR (CKD-EPI)NonAf (>60 ml/min/1.73 sqM) Glucose (74-99) mg/dL Lactic Ac Sepsis Rflx Y Plasma Lactic Acid Mike 5.4 H* (0.7-2.0) mmol/L Calcium (8.4-10.2) mg/dL Phosphorus (2.5-4.5) mg/dL Magnesium (1.6-2.3) mg/dL Total Bilirubin (0.2-1.3) mg/dL AST (17-59) U/L ALT (4-49) U/L Alkaline Phosphatase (38-126) U/L Troponin I (0.000-0.034) ng/mL NT-Pro-B Natriuret Pep 1620 pg/mL Total Protein (6.3-8.2) g/dL Albumin (3.5-5.0) g/dL Urine Color Urine Appearance (Clear) Urine pH (5.0-8.0) Ur Specific [place] (1.001-1.035) Urine Protein (Negative) Urine Glucose (UA) (Negative) Urine Ketones (Negative) Urine Blood (Negative) Urine Nitrite (Negative) Urine Bilirubin (Negative) Urine Urobilinogen (<2.0) mg/dL Ur Leukocyte Esterase (Negative) Urine RBC (0-5) /hpf Urine WBC (0-5) /hpf Ur Squamous Epith Cells (0-4) /hpf Urine Bacteria (None) /hpf Hyaline Casts (0-2) /lpf Urine Mucus (None) /hpf Urine Yeast (Budding) (None) /hpf 07/16/20 07/16/20 Range/Units 07:56 07:56 WBC (3.8-10.6) k/uL RBC (4.30-5.90) m/uL Hgb (13.0-17.5) gm/dL Hct (39.0-53.0) % MCV (80.0-100.0) fL MCH (25.0-35.0) pg MCHC (31.0-37.0) g/dL RDW (11.5-15.5) % Plt Count (150-450) k/uL MPV Neutrophils % % Lymphocytes % % Monocytes % % Eosinophils % % Basophils % % Neutrophils # (1.3-7.7) k/uL Lymphocytes # (1.0-4.8) k/uL Monocytes # (0-1.0) k/uL Eosinophils # (0-0.7) k/uL Basophils # (0-0.2) k/uL Hypochromasia PT (9.0-12.0) sec INR (<1.2) APTT (22.0-30.0) sec Sodium 135 L (137-145) mmol/L Potassium 4.9 (3.5-5.1) mmol/L Chloride 103 (98-107) mmol/L Carbon Dioxide 28 (22-30) mmol/L Anion Gap 4 mmol/L BUN 44 H (9-20) mg/dL Creatinine 0.82 (0.66-1.25) mg/dL Est GFR (CKD-EPI)AfAm >90 (>60 ml/min/1.73 sqM) Est GFR (CKD-EPI)NonAf 88 (>60 ml/min/1.73 sqM) Glucose 87 (74-99) mg/dL Lactic Ac Sepsis Rflx Plasma Lactic Acid Mike (0.7-2.0) mmol/L Calcium 8.6 (8.4-10.2) mg/dL Phosphorus 3.8 (2.5-4.5) mg/dL Magnesium 1.7 (1.6-2.3) mg/dL Total Bilirubin 0.4 (0.2-1.3) mg/dL AST 41 (17-59) U/L ALT 20 (4-49) U/L Alkaline Phosphatase 66 (38-126) U/L Troponin I 0.085 H* (0.000-0.034) ng/mL NT-Pro-B Natriuret Pep pg/mL Total Protein 6.0 L (6.3-8.2) g/dL Albumin 3.3 L (3.5-5.0) g/dL Urine Color Urine Appearance (Clear) Urine pH (5.0-8.0) Ur Specific [place] (1.001-1.035) Urine Protein (Negative) Urine Glucose (UA) (Negative) Urine Ketones (Negative) Urine Blood (Negative) Urine Nitrite (Negative) Urine Bilirubin (Negative) Urine Urobilinogen (<2.0) mg/dL Ur Leukocyte Esterase (Negative) Urine RBC (0-5) /hpf Urine WBC (0-5) /hpf Ur Squamous Epith Cells (0-4) /hpf Urine Bacteria (None) /hpf Hyaline Casts (0-2) /lpf Urine Mucus (None) /hpf Urine Yeast (Budding) (None) /hpf Disposition <Felix Martin - Last Filed: 07/16/20 07:06> Decision Time: 13:17 <Mohan Zhao - Last Filed: 07/20/20 13:20> Clinical Impression: Back pain, SIRS (systemic inflammatory response syndrome) Disposition: ADMITTED IP TO THIS HOSP Condition: Critical
[2020-07-16 08:58] LABS: ALT 20 U/L (4-49); AST 41 U/L (17-59); African American GFR (CKD) >90 (>60 ml/min/1.73 sqM); Albumin 3.3 g/dL (3.5-5.0); Alkaline Phosphatase 66 U/L (38-126); Anion Gap 4 mmol/L; Blood Urea Nitrogen 44 mg/dL (9-20); Calcium 8.6 mg/dL (8.4-10.2); Carbon Dioxide 28 mmol/L (22-30); Chloride 103 mmol/L (98-107); Glucose 87 mg/dL (74-99); Magnesium 1.7 mg/dL (1.6-2.3); Non-African American GFR(CKD) 88 (>60 ml/min/1.73 sqM); Phosphorus 3.8 mg/dL (2.5-4.5); Potassium 4.9 mmol/L (3.5-5.1); Sodium 135 mmol/L (137-145); Total Bilirubin 0.4 mg/dL (0.2-1.3)
--- NOTE | 2020-07-16 09:46 | CT ---
EXAMINATION TYPE: CT brain wo con DATE OF EXAM: 07/16/2020 COMPARISON: None HISTORY: altered mental status CT DLP: [address] of the brain was performed. The ventricles, basal cisterns and sulci overlying the cerebral convexities demonstrate mild enlargem ent. There is no evidence for intracranial hemorrhage or sulcal effacement. There is decreased attenuation about the periventricular white matter and deep white matter of both c erebral hemispheres, compatible with chronic small vessel ischemia. Differential diagnosis does inclu de demyelination. No mass effects are seen.No midline shift. Osseous calvarium is intact. If symptoms persist consider MRI. IMPRESSION: 1. Age related atrophic and chronic small vessel ischemic change without acute intracranial process s een at this time.
--- NOTE | 2020-07-16 09:56 | CT ---
EXAMINATION TYPE: CT ChestAbdPelvis w con DATE OF EXAM: 07/16/2020 COMPARISON: None HISTORY: pain CT DLP: 898.9 mGycm CONTRAST: CT scan of the chest, abdomen and pelvis is performed without Oral Contrast and with IV Contrast, pat ient injected with 100 mL of Isovue 300. CT Chest: LUNGS: Patchy nodular areas of infiltrate at the lung bases as well as the right upper lobe posterior ly measuring up to 1.6 cm. These could reflect areas of developing infiltrate however pulmonary nodul es are not excluded. Continued follow-up is advised. Moderate upper lobe emphysematous changes with p arenchymal scarring noted. Lower lobe bronchiectasis mild in degree. MEDIASTINUM: Thoracic aorta is of normal caliber. The heart is not enlarged. No evidence for media stinal mass or adenopathy. HILAR STRUCTURES: No evidence for mass. No hilar adenopathy is appreciated. OTHER: No significant abnormality. CONTRAST CT ABDOMEN AND PELVIS FINDINGS: LIVER/GB: Small layering gallstones identified. No space occupying hepatic lesion. Biliary tree is of normal caliber. PANCREAS: No inflammation. No distinct mass. SPLEEN: No splenic enlargement. No lesion seen. ADRENALS: No nodule. No thickening. KIDNEYS/BLADDER: Renal parenchymal thinning right kidney at its lower pole. No hydronephrosis. No n ephrolithiasis. Tiny renal cortical cysts noted. BOWEL: Normal appendix. Normal bowel caliber. No inflammation. GENITAL ORGANS: No gross abnormality. LYMPH NODES: No greater than 1cm abdominal or pelvic lymph nodes are appreciated. AORTA: Atheromatous change noted throughout the abdominal aorta and iliac vessels. Left external jose f c stents. OSSEOUS STRUCTURES: Moderate T12 compression fracture with loss of height at 50%. No significant retr opulsion. This is of uncertain age and/or etiology. Severe degenerative changes throughout the lumbar spine. OTHER: No significant additional abnormality is seen. IMPRESSION: 1. Patchy nodular areas of infiltrate at the lung bases as well as the right upper lobe posteriorly m easuring up to 1.6 cm. These could reflect areas of developing infiltrate however pulmonary nodules a re not excluded. Continued follow-up is advised. 2.Moderate T12 compression fracture with loss of height at 50%. This is of uncertain age and/or etiol ogy.
[2020-07-16] MEDS ORDERED: VANCOMYCIN IV PER PHARMACY 1 EACH MISC MISCELLANE PRN (12:22)
[2020-07-16] MEDS ORDERED: PIPERACILLIN-TAZOBACTAM 3.375 GM in SODIUM CHLORIDE 0.9% 100 ML IVPB STA (12:22)
[2020-07-16] MEDS ORDERED: HYDROmorphone 2 MG TAB PO PRN (12:23)
[2020-07-16] MEDS ORDERED: ACETAMINOPHEN TAB 325 MG TAB PO PRN (12:23)
[2020-07-16] MEDS ORDERED: NALOXONE 0.4 MG/ML 1 ML VIAL IV PRN (12:23)
[2020-07-16] MEDS ORDERED: VANCOMYCIN 1,250 MG in SODIUM CHLORIDE 0.9% 250 ML IVPB STA (12:30)
[2020-07-16] MEDS ORDERED: LORazepam 2 MG/ML INJ IV STA (13:02)
[2020-07-16] MEDS ORDERED: LACTULOSE 20 GM/30 ML CUP PO PRN (15:48)
[2020-07-16] MEDS ORDERED: ALBUTEROL HFA INHALER INHALATION PRN (15:48)
[2020-07-16] MEDS ORDERED: KETOROLAC 15 MG/ML 1 ML VIAL IVP PRN (15:52)
--- NOTE | 2020-07-16 16:04 | P.HPIM ---
History of Present Illness Patient received Ativan and multiple doses of opiate analgesics because of which patient is drowsy, unable to arouse patient is deep sleep snoring. History is as per the ER physician and the nursing staff. Patient evidently came in with the severe back pain wasn't a lot of back pain because of which patient received multiple doses of Dilaudid along with the Ativan for MRI patient had a CT of the abdomen and pelvis which is significant for fracture of the thoracic level although age of the fracture is unknown. No other significant abnormality was clearly evident on the lumbar spine patient's symptoms apparently were in the lower lumbar spine. I was asked to admit the patient because of mildly elevated troponins. As mentioned above unable to get any history from the patient. Patient is already on fentanyl patch and was at home patient will be started on Toradol pain management will be consulted. It is also on gabapentin. Patient has a stents because of which she is unable to get MRI as a patient and doesn't know in a stents patient had. 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 Unfortunately patient continues to smoke if patient is presently on 2 L of oxygen doesn't usually use oxygen. Orthopedic surgery was consulted as well. ER physician is concerned about the card compression/cauda equina as patient is unable to urinate which I believe is secondary to mostly opiates. Patient was only has a Russo catheter as per the patient was having symptoms of BPH. 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 left testicle removed. heart stent x1 Past Anesthesia/Blood Transfusion Reactions: No Reported Reaction Date of Last Stent Placement:: 2006 Past Psychological History: Depression Past Alcohol Use History: None Reported Past Drug Use History: Marijuana - Past Family History Sister(s) Family Medical History: Cancer Additional Family Medical History / Comment(s): double mastectomy, still surviving Father Family Medical History: No Reported History Mother Family Medical History: No Reported History Additional Family Medical History / Comment(s): hpoglycemia Medications and Allergies Home Medications Medication Instructions Recorded Confirmed Type Aspirin 81 mg PO DAILY 01/14/14 07/16/20 History DULoxetine HCL [Cymbalta] 60 mg PO W/SUPPER 01/14/14 07/16/20 History lisinopriL [Prinivil] 20 mg PO QAM 01/14/14 07/16/20 History metFORMIN HCL [Glucophage] 500 mg PO BID 01/14/14 07/16/20 History Escitalopram [Lexapro] 10 mg PO DAILY 06/13/18 07/16/20 History Pantoprazole Sodium [Protonix] 40 mg PO DAILY 06/13/18 07/16/20 History amLODIPine [Norvasc] 5 mg PO DAILY 06/13/18 07/16/20 History Gabapentin [Neurontin] 300 mg PO TID #9 cap 06/17/18 07/16/20 Rx Hydrocodone/Acetaminophen [[place] 1 tab PO Q6H PRN #12 tablet 06/17/18 07/16/20 Rx 10-325] fentaNYL 100MCG/HR PATCH 100 mcg TRANSDERM Q72H #1 patch 06/17/18 07/16/20 Rx [Duragesic 100MCG/HR] Albuterol Inhaler [Ventolin Hfa 2 puff INHALATION RT-QID PRN 07/16/20 07/16/20 History Inhaler] Cholecalciferol (Vitamin D3) 250 mcg PO VEE 07/16/20 07/16/20 History [Vitamin D3 (5000 Iu)] Enulose 10gm/15ml 20 gm PO Q48H PRN 07/16/20 07/16/20 History Multivitamins, Thera [Multivitamin 1 tab PO DAILY 07/16/20 07/16/20 History (formulary)] Allergies Allergy/AdvReac Type Severity Reaction Status Date / Time azithromycin [From Zithromax] Allergy Rash/Hives Verified 07/16/20 07:39 Physical Exam Vitals: Vital Signs Temp Pulse Resp BP Pulse Ox 07/16/20 15:33 98 18 175/100 96 07/16/20 12:57 98.5 F 07/16/20 11:00 68 18 152/78 93 L 07/16/20 06:08 120 H 28 H 172/104 93 L Intake and Output 07/16/20 07/16/20 07/16/20 06:59 14:59 22:59 Other: Weight 63.503 kg PHYSICAL EXAMINATION: GENERAL: He is drowsy sleepy HEENT: Pupils are round and equally reacting to light. EOMI. No scleral icterus. No conjunctival pallor. Normocephalic, atraumatic. No pharyngeal erythema. No thyromegaly. CARDIOVASCULAR: S1 and S2 present. No murmurs, rubs, or gallops. PULMONARY: May have rhonchi unable to clearly if she is appreciated as patient is snoring ABDOMEN: Soft, nontender, nondistended, normoactive bowel sounds. No palpable organomegaly. MUSCULOSKELETAL: No joint swelling or deformity. He has a bony amputation EXTREMITIES: No cyanosis, clubbing, or pedal edema. NEUROLOGICAL: Unable to assess SKIN: No rashes. Results CBC & Chem 7: 07/16/20 06:20 07/16/20 07:56 Labs: Abnormal Lab Results - Last 24 Hours (Table) 07/16/20 07/16/20 07/16/20 Range/Units 06:20 06:20 06:20 WBC 19.4 H (3.8-10.6) k/uL RBC 4.28 L (4.30-5.90) m/uL Hgb 12.0 L (13.0-17.5) gm/dL Hct 37.1 L (39.0-53.0) % Plt Count 567 H (150-450) k/uL Neutrophils # 17.4 H (1.3-7.7) k/uL Lymphocytes # 0.7 L (1.0-4.8) k/uL Sodium (137-145) mmol/L BUN (9-20) mg/dL Plasma Lactic Acid Mike 5.4 H* (0.7-2.0) mmol/L Troponin I (0.000-0.034) ng/mL Total Protein (6.3-8.2) g/dL Albumin (3.5-5.0) g/dL Urine Protein 1+ H (Negative) Urine Blood Large H (Negative) Urine RBC >182 H (0-5) /hpf Urine WBC 9 H (0-5) /hpf Urine Bacteria Rare H (None) /hpf Hyaline Casts 4 H (0-2) /lpf Urine Mucus Rare H (None) /hpf Urine Yeast (Budding) Moderate H (None) /hpf 07/16/20 07/16/20 Range/Units 07:56 07:56 WBC (3.8-10.6) k/uL RBC (4.30-5.90) m/uL Hgb (13.0-17.5) gm/dL Hct (39.0-53.0) % Plt Count (150-450) k/uL Neutrophils # (1.3-7.7) k/uL Lymphocytes # (1.0-4.8) k/uL Sodium 135 L (137-145) mmol/L BUN 44 H (9-20) mg/dL Plasma Lactic Acid Mike (0.7-2.0) mmol/L Troponin I 0.085 H* (0.000-0.034) ng/mL Total Protein 6.0 L (6.3-8.2) g/dL Albumin 3.3 L (3.5-5.0) g/dL Urine Protein (Negative) Urine Blood (Negative) Urine RBC (0-5) /hpf Urine WBC (0-5) /hpf Urine Bacteria (None) /hpf Hyaline Casts (0-2) /lpf Urine Mucus (None) /hpf Urine Yeast (Budding) (None) /hpf Assessment and Plan Plan: -Severe low back pain: Patient will be started on anti-intermittent medications patient will be continued on pain medications that he is taking at home, pain management to her was consulted patient probably will get an MRI later today, orthopedic surgery was consulted. -Acute hypoxic respiratory failure requiring 8 L of oxygen secondary to multiple opiates once he is off pain medications probably patient can come off oxygen. -Mildly elevated troponins, we'll repeat 2 more sets of troponins EKG did not s how any acute ST-T wave change but did show sinus arrhythmia -Problems with urination symptomatology is consistent with BPH inability urinated this time is probably secondary to multiple opiates his deceiving -Peripheral neuropathy -Type II type disorders next and-coronary artery disease -Professor disease -Continue nicotine use -Possible COPD -Depression -DVT prophylaxis with Lovenox For above-mentioned chronic medical problems patient will be resumed on appropriate home medications
[2020-07-16] MEDS: DULoxetine HCL 60 MG CAPSULE.DR PO SCH (18:31)
[2020-07-16] MEDS: GABAPENTIN 300 MG CAP PO SCH ×2 (18:32→22:36)
[2020-07-16 19:22] LABS: Cocaine Screen,Urine Not Detected (NotDetected); Phencyclidine Screen,Urine Not Detected (NotDetected); Urn Cannabinoid Scrn Detected (NotDetected)
[2020-07-16 19:23] LABS: Amphetamine Screen,Urine Not Detected (NotDetected); Barbiturate Screen,Urine Not Detected (NotDetected); Benzodiazepines Screen,Urine Detected (NotDetected); Methadone Screen, Urine Not Detected (NotDetected); Opiate Screen,Urine Detected (NotDetected); Oxycodone Screen, Urine Not Detected (NotDetected); Tricyclic Antidepressant,Urine Not Detected (NotDetected)
[2020-07-16] MEDS: BUDESONIDE 1 MG/2 ML NEBU INHALATION SCH (20:11)
[2020-07-16] MEDS: IPRATROPIUM-ALBUTEROL 3 ML NEB INHALATION SCH (20:11)
[2020-07-16] MEDS: metFORMIN 500 MG TAB PO SCH (22:35)
[2020-07-16] MEDS: TAMSULOSIN 0.4 MG CAP.ER.24H PO SCH (22:36)
[2020-07-16] MEDS: VANCOMYCIN 1,250 MG in SODIUM CHLORIDE 0.9% 250 ML IVPB SCH (22:48)
[2020-07-17] MEDS: SODIUM CHLORIDE 0.9% 1,000 ML IV SCH ×2 (06:34→17:00)
[2020-07-17] MEDS: PANTOPRAZOLE 40 MG TABLET PO SCH ×2 (06:34→09:41)
[2020-07-17] MEDS: amLODIPine 5 MG TAB PO SCH (09:41)
[2020-07-17] MEDS: ESCITALOPRAM 10 MG TAB PO SCH (09:41)
[2020-07-17] MEDS: lisinopriL 20 MG TAB PO SCH (09:41)
[2020-07-17] MEDS: metFORMIN 500 MG TAB PO SCH ×2 (09:41→20:51)
[2020-07-17] MEDS: VANCOMYCIN 1,250 MG in SODIUM CHLORIDE 0.9% 250 ML IVPB SCH (09:42)
[2020-07-17] MEDS: GABAPENTIN 300 MG CAP PO SCH ×3 (09:42→20:51)
[2020-07-17] MEDS: ASPIRIN 81 MG PO SCH (09:42)
[2020-07-17] MEDS: MULTIVITAMINS, THERA 1 EACH TAB PO SCH (09:42)
[2020-07-17] MEDS: BUDESONIDE 1 MG/2 ML NEBU INHALATION SCH (10:46)
[2020-07-17] MEDS: IPRATROPIUM-ALBUTEROL 3 ML NEB INHALATION SCH ×4 (10:46→20:28)
[2020-07-17 11:48] LABS: Glucose,Whole Blood 93 mg/dL (75-99)
--- NOTE | 2020-07-17 13:46 | P.CNOR ---
History of Present Illness - HPI Consult date: 07/17/20 Consult reason: low back pain History of present illness: Patient is a pleasant 70-year-old male who presented to the emergency room regards to low back pain. He has a history of chronic low back pain over the pa st decade but says that it was worsening over the past several days and presented to the emergency room. He says that he has had pain at his low back which increased back in March 2020 over 4 months ago. He says at that point he was leaning against his chair at home and the chair gave out and he fell to the floor. He had pain at his mid and lower back since that time. He denies any new change in his lower extremities. He denies any new changes in his bowel or bladder function. He has significant history of vascular disease and has an above-knee amputation is 2009 which started as a below-knee amputation in 2004. In the emergency room his found have elevated troponins and was admitted this regard. He admits to smoking regularly and uses oxygen at home. He has chronic pain and is being treated with a physical patch as well. He and legs with the medial and a wheelchair at home. He has been using this Amigo since 2009. Currently he says his back is settled down. He is able to move around in bed adequately. He denies any lower extremity pain or numbness or tingling. Denies any changes in bowel or function. He denies any chest pain portion is breath currently. Review of Systems As stated per HPI. There is no change in bowel bladder function. No neurologic changes lower extremity is. His above-knee 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. 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 knee wound + FOR MRSA. 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 History of a fall in March 2020 at which time he started having s ignificant back pain Last Myocardial Infarction Date:: 2003 History of Any Multi-Drug Resistant Organisms: MRSA Year Discovered:: 04/02/16 MDRO Source:: LT KNEE WOUND Past Surgical History: Heart Catheterization With Stent, Orthopedic Surgery Additional Past Surgical History / Comment(s): STENTS TO LEFT GROIN, LEFT BELOW THE KNEE AMPUTATION, unsuccessful revascularization left leg, shoulder surgery, surgical debridement of necrotic tissue left scrotal area, LT AKA 03/03/16. left testicle removed. heart stent x1 Past Anesthesia/Blood Transfusion Reactions: No Reported Reaction Date of Last Stent Placement:: 2006 Past Psychological History: Depression Past Alcohol Use History: None Reported Past Drug Use History: Marijuana - Past Family History Sister(s) Family Medical History: Cancer Additional Family Medical History / Comment(s): double mastectomy, still surviving Father Family Medical History: No Reported History Mother Family Medical History: No Reported History Additional Family Medical History / Comment(s): hpoglycemia Medications and Allergies Home Medications Medication Instructions Recorded Confirmed Type Aspirin 81 mg PO DAILY 01/14/14 07/16/20 History DULoxetine HCL [Cymbalta] 60 mg PO W/SUPPER 01/14/14 07/16/20 History lisinopriL [Prinivil] 20 mg PO QAM 01/14/14 07/16/20 History metFORMIN HCL [Glucophage] 500 mg PO BID 01/14/14 07/16/20 History Escitalopram [Lexapro] 10 mg PO DAILY 06/13/18 07/16/20 History Pantoprazole Sodium [Protonix] 40 mg PO DAILY 06/13/18 07/16/20 History amLODIPine [Norvasc] 5 mg PO DAILY 06/13/18 07/16/20 History Gabapentin [Neurontin] 300 mg PO TID #9 cap 06/17/18 07/16/20 Rx Hydrocodone/Acetaminophen [[place] 1 tab PO Q6H PRN #12 tablet 06/17/18 07/16/20 Rx 10-325] fentaNYL 100MCG/HR PATCH 100 mcg TRANSDERM Q72H #1 patch 06/17/18 07/16/20 Rx [Duragesic 100MCG/HR] Albuterol Inhaler [Ventolin Hfa 2 puff INHALATION RT-QID PRN 07/16/20 07/16/20 History Inhaler] Cholecalciferol (Vitamin D3) 250 mcg PO VEE 07/16/20 07/16/20 History [Vitamin D3 (5000 Iu)] Enulose 10gm/15ml 20 gm PO Q48H PRN 07/16/20 07/16/20 History Multivitamins, Thera [Multivitamin 1 tab PO DAILY 07/16/20 07/16/20 History (formulary)] Allergies Allergy/AdvReac Type Severity Reaction Status Date / Time azithromycin [From Zithromax] Allergy Rash/Hives Verified 07/16/20 07:39 Physical Examination Osteopathic Statement: *. No significant issues noted on an osteopathic structural exam other than those noted in the History and Physical/Consult. - L Spine: dermatomal strength & reflexes right Strength: hip flexion: 5/5 (He has an above-knee 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. He moves his hip adequately. His right lower extremity has good strength wrist flexion or flexion and EHL. He is able lift his right leg up off the bed and apparently. He has some chronic scar formation in his right groin. His low back is nontender t) Strength: hip extension: 5/5 (Nontender to percussion at his thoracic lumbar junction.) Results - Labs Labs: Abnormal Lab Results - Last 24 Hours (Table) 07/16/20 07/16/20 07/16/20 Range/Units 16:30 18:59 19:02 Troponin I 0.544 H* 0.593 H* (0.000-0.034) ng/mL Urine Opiates Screen Detected H (NotDetected) U Benzodiazepines Scrn Detected H (NotDetected) U Marijuana (THC) Screen Detected H (NotDetected) H & H 07/16/20 Range/Units 06:20 Hgb 12.0 L (13.0-17.5) gm/dL Hct 37.1 L (39.0-53.0) % Coagulation 07/16/20 Range/Units 06:20 INR 1.0 (<1.2) Result Diagrams: 07/16/20 06:20 07/16/20 07:56 - Diagnostic results CT Scan - lumbar: report reviewed, image reviewed (Computed tomography scan of his abdomen and pelvis reviewed in terms of his lumbar spine. There does appear to be a compression fracture T12 which overall looks chronic area there is approximately 50% height loss. He is some disc degeneration particular L2-3 L3 4.) Assessment and Plan Assessment: Chronic low back pain Chronic T12 compression fracture Degenerative disc disease Acute on chronic low back pain History of severe vascular disorder with left above-knee amputation No apparent neurologic current change Elevated troponins Plan: Chronic low back pain Chronic T12 compression fracture Degenerative disc disease Acute on chronic low back pain History of severe vascular disorder with left above-knee amputation No apparent neurologic current change Elevated troponins In regards the patient's spine I think that the fracture T12 is chronic. He is likely that he sustained a fracture in March 2020 and appears to be stable at this point. In bed now he is moving quite well and he has not having any evidence of neurologic compromise in his lower extremities. I do not have any acute plans for surgical intervention. He could have some benefit with bracing and we will order an LSO for him to use when he is mobilizing. It is okay for him to mobilize without the brace if he is comfortable for now. He could potentially be a candidate for kyphoplasty at T12 if he is having recurrent or worsening pain. I think we can determine is on an outpatient basis and from a orthopedic spine standpoint is okay for the patient to be followed as an outpatient in the next 2 weeks for recheck evaluation and repeat x-rays. I discussed this with the patient and answered his questions and he is agreeable. History he had an MRI scheduled but it is questionable because of a prior heart stent that he had 15 years ago at [facility]. From my standpoint I think it is okay to hold off on the MRI as he is not having any lower extremity or neurologic changes. I think that his spine issues are currently relatively stable and we can get further testing on outpatient basis if necessary. We can follow-up the patient outpatient basis.
--- NOTE | 2020-07-17 14:42 | P.PN ---
Subjective 68-year-old male was admitted for back pain found to have compression fracture appears to be old compression fracture was evaluated by orthopedic surgery. As today was unable to evaluate the patient patient doesn't have any radicular symptoms doesn't have any saddle anesthesia bowel or bladder incontinence. Patient presently has a Russo catheter because of the most probably benign prostatic hypertrophy. Agree with orthopedic assessment the patient will not need an MRI/MRA will be discontinued. Patient had elevated troponins because of which are cardiology will evaluate the patient., Physical therapy and occupational therapy will be consulted patient has left above-knee amputation patient also had stents in the left the leg in the past. Patient is still complaining of some shortness of breath presently remains on 4 L of oxygen altho ugh patient is not wheezing at this time. Patient pain is pretty well controlled at this time. Objective - Vital Signs Vital signs: Vital Signs Temp 98.3 F 07/17/20 08:00 Pulse 86 07/17/20 11:07 Resp 20 07/17/20 08:00 BP 172/87 07/17/20 08:00 Pulse Ox 96 07/17/20 08:00 Intake & Output 07/16/20 07/17/20 07/17/20 18:59 06:59 18:59 Intake Total 540 Output Total 1600 425 Balance -1600 115 Weight 64.2 kg Intake: Oral 540 Output: Urine 1600 425 Other: Voiding Method Indwelling Catheter Indwelling Catheter # Bowel Movements 2 - Exam PHYSICAL EXAMINATION: GENERAL: The patient is alert and oriented x3, not in any acute distress. Well developed, well nourished. HEENT: Pupils are round and equally reacting to light. EOMI. No scleral icterus. No conjunctival pallor. Normocephalic, atraumatic. No pharyngeal erythema. No thyromegaly. CARDIOVASCULAR: S1 and S2 present. No murmurs, rubs, or gallops. PULMONARY: Chest is clear to auscultation, no wheezing or crackles. ABDOMEN: Soft, nontender, nondistended, normoactive bowel sounds. No palpable organomegaly. MUSCULOSKELETAL: Left above-knee amputation EXTREMITIES: No cyanosis, clubbing, or pedal edema. NEUROLOGICAL: Gross neurological examination did not reveal any focal deficits. SKIN: No rashes. - Labs CBC & Chem 7: 07/16/20 06:20 07/16/20 07:56 Labs: Abnormal Lab Results - Last 24 Hours (Table) 07/16/20 07/16/20 07/16/20 Range/Units 16:30 18:59 19:02 Troponin I 0.544 H* 0.593 H* (0.000-0.034) ng/mL Urine Opiates Screen Detected H (NotDetected) U Benzodiazepines Scrn Detected H (NotDetected) U Marijuana (THC) Screen Detected H (NotDetected) Assessment and Plan Plan: -Severe low back pain: Patient will be started on anti-intermittent medications patient will be continued on pain medications that he is taking at home, pain management to her was consulted patient probably will get an MRI later today, orthopedic surgery was consulted. -Acute hypoxic respiratory failure requiring 8 L of oxygen secondary to multiple opiates patient is presently on 4 days of oxygen is not in COPD exacerbation CT did not show any PE -Mildly elevated troponins, cardiology will evaluate the patient -Problems with urination symptomatology is consistent with BPH inability urinated this time is probably secondary to multiple opiates his deceiving, patient was started on tamsulosin will discontinue Russo catheter tomorrow and see if patient can urinate -Peripheral neuropathy -Type II type disorders next and-coronary artery disease -Professor disease -Continue nicotine use -Possible COPD -Depression -DVT prophylaxis with Lovenox For above-mentioned chronic medical problems patient will be resumed on appropriate home medications
--- NOTE | 2020-07-17 15:10 | P.PAINCN ---
History of Present Illness - Reason for Consult Consult date: 07/17/20 - History of Present Illness This is 70 years old male, with a chronic pain syndrome, chronic and severe low back pain, he was managed as an outpatient by his primary care , and he is currently on fentanyl patch 100 g, [place] 10/325 every 6 hours Neurontin 300 mg 3 times a day, Tylenol 650 mg every 6 hours, patient was admitted to 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 knee wound + FOR MRSA. 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 History of a fall in March 2020 at which time he started having significant back pain Last Myocardial Infarction Date:: 2003 History of Any Multi-Drug Resistant Organisms: MRSA Year Discovered:: 04/02/16 MDRO Source:: LT KNEE WOUND Past Surgical History: Heart Catheterization With Stent, Orthopedic Surgery Additional Past Surgical History / Comment(s): STENTS TO LEFT GROIN, LEFT BELOW THE KNEE AMPUTATION, unsuccessful revascularization left leg, shoulder surgery, surgical debridement of necrotic tissue left scrotal area, LT AKA 03/03/16. left testicle removed. heart stent x1 Past Anesthesia/Blood Transfusion Reactions: No Reported Reaction Date of Last Stent Placement:: 2006 Past Psychological History: Depression Past Alcohol Use History: None Reported Past Drug Use History: Marijuana - Past Family History Sister(s) Family Medical History: Cancer Additional Family Medical History / Comment(s): double mastectomy, still surviving Father Family Medical History: No Reported History Mother Family Medical History: No Reported History Additional Family Medical History / Comment(s): hpoglycemia Medications and Allergies Home Medications Medication Instructions Recorded Confirmed Type Aspirin 81 mg PO DAILY 01/14/14 07/16/20 History DULoxetine HCL [Cymbalta] 60 mg PO W/SUPPER 01/14/14 07/16/20 History lisinopriL [Prinivil] 20 mg PO QAM 01/14/14 07/16/20 History metFORMIN HCL [Glucophage] 500 mg PO BID 01/14/14 07/16/20 History Escitalopram [Lexapro] 10 mg PO DAILY 06/13/18 07/16/20 History Pantoprazole Sodium [Protonix] 40 mg PO DAILY 06/13/18 07/16/20 History amLODIPine [Norvasc] 5 mg PO DAILY 06/13/18 07/16/20 History Gabapentin [Neurontin] 300 mg PO TID #9 cap 06/17/18 07/16/20 Rx Hydrocodone/Acetaminophen [[place] 1 tab PO Q6H PRN #12 tablet 06/17/18 07/16/20 Rx 10-325] fentaNYL 100MCG/HR PATCH 100 mcg TRANSDERM Q72H #1 patch 06/17/18 07/16/20 Rx [Duragesic 100MCG/HR] Albuterol Inhaler [Ventolin Hfa 2 puff INHALATION RT-QID PRN 07/16/20 07/16/20 History Inhaler] Cholecalciferol (Vitamin D3) 250 mcg PO VEE 07/16/20 07/16/20 History [Vitamin D3 (5000 Iu)] Enulose 10gm/15ml 20 gm PO Q48H PRN 07/16/20 07/16/20 History Multivitamins, Thera [Multivitamin 1 tab PO DAILY 07/16/20 07/16/20 History (formulary)] Allergies Allergy/AdvReac Type Severity Reaction Status Date / Time azithromycin [From Zithromax] Allergy Rash/Hives Verified 07/16/20 07:39 Physical Exam Vitals: Vital Signs Temp Pulse Pulse Resp BP BP Pulse Ox 07/17/20 11:07 86 07/17/20 11:00 80 07/17/20 08:00 98.3 F 74 20 172/87 96 07/17/20 04:36 98.1 F 76 16 124/64 95 07/17/20 02:00 16 07/17/20 00:00 98.0 F 67 18 167/98 96 07/16/20 21:26 16 07/16/20 20:21 65 07/16/20 20:12 64 07/16/20 19:54 98.2 F 96 16 182/82 99 07/16/20 18:37 98.5 F 109 H 21 190/98 96 07/16/20 18:00 109 H 21 190/98 96 07/16/20 15:33 98 18 175/100 96 Intake and Output 07/17/20 07/17/20 07/17/20 06:59 14:59 22:59 Intake Total 540 Output Total 600 425 Balance -600 115 Intake: Oral 540 Output: Urine 600 425 Other: Voiding Method Indwelling Catheter Indwelling Catheter # Bowel Movements 2 Weight 64.2 kg Physical Examinations : -Constitutiona : Cooperative , not in acute distress . -HEENT : nech : supple , no Lymphadenopathy , normal thyroid size . : eyes : no ptosis , no icterus, no photophobia . - neurologic : Cranial nerve II to XII intact , no focal neurological deffecit . -psychatric : alert , oriented X 3 , appropriate affect , intact judgment and insight . -Lymphatic : no Lymphadenopathy . - musculoskeltal : Lumber spine moter stegnth lower extremities ,thigh and legs 4/5 Right side , above-knee amputation left lower extremity deep tendon reflexes : normal Knee Jerk , normal ankle Jerk lumber facet Loading Test =positive Right , posiutive Left Range of motion of the lumbar spine Flexion 30 degrees, extension 10 degrees strait leg raising test = positive at 30 degree on the right side Fabere test= positive Right , and positive LT . Sever tenderness over the Sacroiliac joint on the Right . Palpation around the T12 level did not trigger any pain, no tenderness over T11/-T12/ L1/L 2 vertebra Results CBC & Chem 7: 07/16/20 06:20 07/16/20 07:56 Labs: Abnormal Lab Results - Last 24 Hours (Table) 07/16/20 07/16/20 07/16/20 Range/Units 16:30 18:59 19:02 Troponin I 0.544 H* 0.593 H* (0.000-0.034) ng/mL Urine Opiates Screen Detected H (NotDetected) U Benzodiazepines Scrn Detected H (NotDetected) U Marijuana (THC) Screen Detected H (NotDetected) Comments: Computed tomography scan of the thoracic spine showed compression fracture of T12 Assessment and Plan Plan: Assessment and plan=1-chronic pain syndrome. 2-lumbar degenerative disc disease. 3-lumbar spondylosis. 4-acute on chronic low back pain. 5-compression fracture at T12 During the interview today patient reported that his pain is under control, the intensity of the pain is improved since admission Patient denies any excessive drowsiness, he denies any side effect of the medication, recommend continue current medication management, and patient can follow up as outpatient if needed. Recommend to continue his current medication Neurontin 300 mg 3 times a day, fentanyl patch 100 g every 72 hours [place] 10/325 every 6 hours when necessary. The location of the pain, and the low back area, showed that mostly is coming from the facetogenic component, not from the compression fracture,( palpation over T12 level did not trigger the pain ) Time with Patient: Less than 30 PQRS Measure Charge Sheet PQRS Narrative: Smoking Status Current every day smoker Blood Pressure [Left Arm] 172/87 Blood Pressure 190/98 Pain Intensity [None] 0 Pain Intensity 5 Pain Scale Used Numeric (1 - 10) Scale Used Numeric (1 - 10) Home Medications: Ambulatory Orders Aspirin 81 mg PO DAILY 01/14/14 DULoxetine HCL [Cymbalta] 60 mg PO W/SUPPER 01/14/14 lisinopriL [Prinivil] 20 mg PO QAM 01/14/14 metFORMIN HCL [Glucophage] 500 mg PO BID 01/14/14 Escitalopram [Lexapro] 10 mg PO DAILY 06/13/18 Pantoprazole Sodium [Protonix] 40 mg PO DAILY 06/13/18 amLODIPine [Norvasc] 5 mg PO DAILY 06/13/18 Gabapentin [Neurontin] 300 mg PO TID #9 cap 06/17/18 Hydrocodone/Acetaminophen [[place] 10-325] 1 tab PO Q6H PRN #12 tablet 06/17/18 fentaNYL 100MCG/HR PATCH [Duragesic 100MCG/HR] 100 mcg TRANSDERM Q72H #1 patch 06/17/18 Albuterol Inhaler [Ventolin Hfa Inhaler] 2 puff INHALATION RT-QID PRN 07/16/20 Cholecalciferol (Vitamin D3) [Vitamin D3 (5000 Iu)] 250 mcg PO VEE 07/16/20 Enulose 10gm/15ml 20 gm PO Q48H PRN 07/16/20 Multivitamins, Thera [Multivitamin (formulary)] 1 tab PO DAILY 07/16/20
--- NOTE | 2020-07-17 16:01 | P.CRDCN ---
History of Present Illness Consult date: 07/17/20 Chief complaint: Shortness of breath History of present illness: This is a 70-year-old gentleman who requested to see a earlier today for further evaluation of abnormal cardiac enzymes and mildly elevated troponin. 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 Beside that he does have diabetes and hypertension and dyslipidemia and he is a smoker. He is here with multiple complaints. Apparently he was experiencing severe low back pain. He presented to the hospital with that and he underwent a computed tomography scan which revealed fracture T12. Orthopedic surgery consulted to see the patient and they advised a conservative medical approach because they think that the T12 fracture is chronic and not acute. No plan for any surgery at this point. Subsequently pain management service was consulted regarding his pain in the low back. He denies any symptoms of chest pain or chest discomfort but he is experiencing shortness of breath with exertion for the last 6-8 weeks. He described exertional dyspnea. No symptoms of chest pain or chest discomfort. No dizziness or lightheadedness and no syncope. He stated that the symptoms of shortness of breath is very similar to what he experienced before he underwent a coronary stenting and the shortness of breath is definitely worse than his baseline shortness of breath. The EKG showed sinus rhythm without any significant ST or T-wave abnormalities. The troponin came in to be slightly elevated. Kidney function is within normal limits as well as his hemoglobin. His oxygen saturation also seems to be within normal limits. Unfortunately the patient continues to smoke and he stated that he is working on cutting back on smoking. 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 knee wound + FOR MRSA. 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 History of a fall in March 2020 at which time he started having significant back pain Last Myocardial Infarction Date:: 2003 History of Any Multi-Drug Resistant Organisms: MRSA Date of last positivie culture/infection: 04/02/16 MDRO Source:: LT KNEE WOUND Past Surgical History: Heart Catheterization With Stent, Orthopedic Surgery Additional Past Surgical History / Comment(s): STENTS TO LEFT GROIN, LEFT BELOW THE KNEE AMPUTATION, unsuccessful revascularization left leg, shoulder surgery, surgical debridement of necrotic tissue left scrotal area, LT AKA 03/03/16. left testicle removed. heart stent x1 Past Anesthesia/Blood Transfusion Reactions: No Reported Reaction Date of Last Stent Placement:: 2006 Past Psychological History: Depression Past Alcohol Use History: None Reported Past Drug Use History: Marijuana - Past Family History Sister(s) Family Medical History: Cancer Additional Family Medical History / Comment(s): double mastectomy, still surviving Father Family Medical History: No Reported History Mother Family Medical History: No Reported History Additional Family Medical History / Comment(s): hpoglycemia Medications and Allergies Home Medications Medication Instructions Recorded Confirmed Type Aspirin 81 mg PO DAILY 01/14/14 07/16/20 History DULoxetine HCL [Cymbalta] 60 mg PO W/SUPPER 01/14/14 07/16/20 History lisinopriL [Prinivil] 20 mg PO QAM 01/14/14 07/16/20 History metFORMIN HCL [Glucophage] 500 mg PO BID 01/14/14 07/16/20 History Escitalopram [Lexapro] 10 mg PO DAILY 06/13/18 07/16/20 History Pantoprazole Sodium [Protonix] 40 mg PO DAILY 06/13/18 07/16/20 History amLODIPine [Norvasc] 5 mg PO DAILY 06/13/18 07/16/20 History Gabapentin [Neurontin] 300 mg PO TID #9 cap 06/17/18 07/16/20 Rx Hydrocodone/Acetaminophen [[place] 1 tab PO Q6H PRN #12 tablet 06/17/18 07/16/20 Rx 10-325] fentaNYL 100MCG/HR PATCH 100 mcg TRANSDERM Q72H #1 patch 06/17/18 07/16/20 Rx [Duragesic 100MCG/HR] Albuterol Inhaler [Ventolin Hfa 2 puff INHALATION RT-QID PRN 07/16/20 07/16/20 History Inhaler] Cholecalciferol (Vitamin D3) 250 mcg PO VEE 07/16/20 07/16/20 History [Vitamin D3 (5000 Iu)] Enulose 10gm/15ml 20 gm PO Q48H PRN 07/16/20 07/16/20 History Multivitamins, Thera [Multivitamin 1 tab PO DAILY 07/16/20 07/16/20 History (formulary)] Allergies Allergy/AdvReac Type Severity Reaction Status Date / Time azithromycin [From Zithromax] Allergy Rash/Hives Verified 07/16/20 07:39 Physical Exam Vitals: Vital Signs Temp Pulse Pulse Resp BP BP Pulse Ox 07/17/20 11:07 86 07/17/20 11:00 80 07/17/20 08:00 98.3 F 74 20 172/87 96 07/17/20 04:36 98.1 F 76 16 124/64 95 07/17/20 02:00 16 07/17/20 00:00 98.0 F 67 18 167/98 96 07/16/20 21:26 16 07/16/20 20:21 65 07/16/20 20:12 64 07/16/20 19:54 98.2 F 96 16 182/82 99 07/16/20 18:37 98.5 F 109 H 21 190/98 96 07/16/20 18:00 109 H 21 190/98 96 Intake and Output 07/17/20 07/17/20 07/17/20 06:59 14:59 22:59 Intake Total 540 Output Total 600 425 Balance -600 115 Intake: Oral 540 Output: Urine 600 425 Other: Voiding Method Indwelling Catheter Indwelling Catheter # Bowel Movements 2 Weight 64.2 kg - Constitutional General appearance: no acute distress - Respiratory Respiratory: bilateral: diminished - Cardiovascular Rhythm: regular Heart sounds: normal: S1, S2 Results 07/16/20 06:20 07/16/20 07:56 Cardiac Enzymes 07/16/20 07/16/20 Range/Units 16:30 19:02 Troponin I 0.544 H* 0.593 H* (0.000-0.034) ng/mL Current Medications Generic Name Dose Route Start Last Admin Trade Name Freq PRN Reason Stop Dose Admin Acetaminophen 650 mg 07/16/20 12:23 Acetaminophen Tab 325 Mg Tab PO Q6HR PRN Mild Pain or Fever > 100.5 Hydrocodone Bitart/Acetaminophen 1 each 07/16/20 15:48 Hydrocodone/Apap 10-325mg 1 Each Tab PO Q6H PRN Pain Albuterol/Ipratropium 3 ml 07/16/20 20:00 07/17/20 10:58 Ipratropium-Albuterol 3 Ml Neb INHALATION 3 ml RT-QID MERRITT Administration Amlodipine Besylate 5 mg 07/17/20 09:00 07/17/20 09:41 Amlodipine 5 Mg Tab PO 5 mg DAILY MERRITT Administration Aspirin 81 mg 07/17/20 09:00 07/17/20 09:42 Aspirin 81 Mg PO 81 mg DAILY MERRITT Administration Budesonide 0.5 mg 07/17/20 20:00 Budesonide 0.5 Mg/2 Ml Nebu INHALATION RT-BID MERRITT Cholecalciferol 250 mcg 07/21/20 09:00 Cholecalciferol 25 Mcg (1000 Iu) Tablet PO VEE [facility] Duloxetine HCl 60 mg 07/16/20 17:30 07/16/20 18:31 Duloxetine Hcl 60 Mg Capsule.Dr PO Not Given W/SUPPER [facility] Enoxaparin Sodium 40 mg 07/17/20 15:15 Enoxaparin 40 Mg/0.[address] [facility] Escitalopram Oxalate 10 mg 07/17/20 09:00 07/17/20 09:41 Escitalopram 10 Mg Tab PO [address] [facility] Administration Fentanyl 1 patch 07/16/20 16:00 07/16/20 21:48 Fentanyl 100mcg/Hr Patch TRANSDERM 1 patch Q72H MERRITT Administration Protocol Gabapentin 300 mg 07/16/20 16:00 07/17/20 09:42 Gabapentin 300 Mg Cap PO [address] [facility] Administration Sodium Chloride 1,000 mls @ 20 mls/hr 07/16/20 12:30 07/17/20 06:34 Saline 0.9% IV Not Given .Q24H [facility] Ketorolac Tromethamine 15 mg 07/16/20 15:52 Ketorolac 15 Mg/Ml 1 Ml Vial IVP 07/21/20 15:53 Q6HR PRN Pain Lactulose 20 gm 07/16/20 15:48 Lactulose 20 Gm/30 Ml Cup PO Q48H PRN Constipation Lisinopril 20 mg 07/17/20 09:00 07/17/20 09:41 Lisinopril 20 Mg Tab PO [address] [facility] Administration Metformin HCl 500 mg 07/16/20 21:00 07/17/20 09:41 Metformin 500 Mg Tab PO 500 mg BID MERRITT Administration Metoprolol Succinate 25 mg 07/18/20 09:00 Metoprolol Succinate (Er) 25 Mg Tab.Er.24h PO DAILY MERRITT Multivitamins 1 each 07/17/20 09:00 07/17/20 09:42 Multivitamins, Thera 1 Each Tab PO 1 each DAILY MERRITT Administration Naloxone HCl 0.2 mg 07/16/20 12:23 Naloxone 0.4 Mg/Ml 1 Ml Vial IV Q2M PRN Opioid Reversal Pantoprazole Sodium 40 mg 07/17/20 07:30 07/17/20 09:41 Pantoprazole 40 Mg Tablet PO 40 mg DAILY@0730 MERRITT Administration Tamsulosin HCl 0.4 mg 07/16/20 18:30 07/16/20 22:36 Tamsulosin 0.4 Mg Cap.Er.24h PO Not Given PC-SUPPER MERRITT Intake and Output 07/17/20 07/17/20 07/17/20 06:59 14:59 22:59 Intake Total 540 Output Total 600 425 Balance -600 115 Intake: Oral 540 Output: Urine 600 425 Other: Voiding Method Indwelling Catheter Indwelling Catheter # Bowel Movements 2 Weight 64.2 kg 07/16/20 06:20 07/16/20 07:56 Assessment and Plan Assessment: Assessment #1 severe low back pain #2 chronic T12 fracture #3 mildly elevated troponin #4 shortness of breath #5 history of coronary artery disease and prior revascularization #6 significant history of smoking #7 diabetes #8 multiple comorbid conditions Plan #1 continue the current medical regimen including aspirin #2 add beta yareli to the current medical regimen. I'm going to add Toprol excelled #3 obtain an echocardiogram was Doppler #4 rule out severe underlying coronary artery disease either invasively or noninvasively #5 follow-up with the patient
[2020-07-17 16:19] LABS: Glucose,Whole Blood 130 mg/dL (75-99)
[2020-07-17] MEDS: DULoxetine HCL 60 MG CAPSULE.DR PO SCH (16:59)
[2020-07-17] MEDS: TAMSULOSIN 0.4 MG CAP.ER.24H PO SCH (16:59)
[2020-07-17] MEDS: ENOXAPARIN 40 MG/0.4 ML SYRINGE SQ SCH (17:02)
[2020-07-17] MEDS: BUDESONIDE 0.5 MG/2 ML NEBU INHALATION SCH (20:28)
[2020-07-17] MEDS: HYDROcodone/APAP 10-325MG 1 EACH TAB PO PRN (22:42)
[2020-07-17 23:15] LABS: Glucose,Whole Blood 197 mg/dL (75-99)
[2020-07-17] MEDS: INSULIN ASPART (NovoLOG) 100 UNIT/ML VIAL SQ SCH (23:41)
[2020-07-18 06:06] LABS: Glucose,Whole Blood 87 mg/dL (75-99)
[2020-07-18] MEDS: INSULIN ASPART (NovoLOG) 100 UNIT/ML VIAL SQ SCH ×4 (06:13→20:55)
[2020-07-18] MEDS: PANTOPRAZOLE 40 MG TABLET PO SCH (06:13)
[2020-07-18 06:48] LABS: HCT 37.8 % (39.0-53.0); HGB 12.2 gm/dL (13.0-17.5); Hypochromasia Slight; MCH 27.5 pg (25.0-35.0); MCHC 32.3 g/dL (31.0-37.0); MCV 85.2 fL (80.0-100.0); Mean Platelet Volume 7.6; Platelet Count 373 k/uL (150-450); RBC 4.44 m/uL (4.30-5.90); RDW 15.1 % (11.5-15.5); WBC 9.5 k/uL (3.8-10.6)
[2020-07-18 07:02] LABS: African American GFR (CKD) >90 (>60 ml/min/1.73 sqM); Anion Gap 5 mmol/L; Blood Urea Nitrogen 34 mg/dL (9-20); Calcium 8.9 mg/dL (8.4-10.2); Carbon Dioxide 31 mmol/L (22-30); Chloride 102 mmol/L (98-107); Glucose 95 mg/dL (74-99); Non-African American GFR(CKD) 89 (>60 ml/min/1.73 sqM); Potassium 3.6 mmol/L (3.5-5.1); Sodium 138 mmol/L (137-145)
[2020-07-18] MEDS: IPRATROPIUM-ALBUTEROL 3 ML NEB INHALATION SCH ×4 (08:00→20:15)
[2020-07-18] MEDS: ENOXAPARIN 40 MG/0.4 ML SYRINGE SQ SCH (09:39)
[2020-07-18] MEDS: amLODIPine 5 MG TAB PO SCH (09:40)
[2020-07-18] MEDS: GABAPENTIN 300 MG CAP PO SCH ×2 (09:40→15:54)
[2020-07-18] MEDS: ASPIRIN 81 MG PO SCH (09:40)
[2020-07-18] MEDS: metFORMIN 500 MG TAB PO SCH ×2 (09:41→20:55)
[2020-07-18] MEDS: METOPROLOL SUCCINATE (ER) 25 MG TAB.ER.24H PO SCH (09:41)
[2020-07-18] MEDS: MULTIVITAMINS, THERA 1 EACH TAB PO SCH (09:41)
[2020-07-18] MEDS: ESCITALOPRAM 10 MG TAB PO SCH (09:42)
[2020-07-18] MEDS: lisinopriL 20 MG TAB PO SCH (09:42)
[2020-07-18] MEDS ORDERED: VANCOMYCIN TROUGH DUE 1 EACH MISC MISCELLANE ONE (10:00)
--- NOTE | 2020-07-18 11:01 | ECHOF ---
Referral Reason:ACS MEASUREMENTS -------- HEIGHT: 182.9 cm WEIGHT: 52.2 kg BP: 130/76 IVSd: 1.0 cm (0.6 - 1.1) LVIDd: 2.7 cm (3.9 - 5.3) LVPWd: 1.3 cm (0.6 - 1.1) EDV(Teich): 26 ml IVSs: 1.6 cm LVIDs: 1.9 cm LVPWs: 1.5 cm %IVS Thck: 57 % ESV(Teich): 11 ml EF(Teich): 57 % %FS: 28 % SV(Teich): 15 ml Ao Diam: 3.1 cm (2.0 - 3.7) LA Diam: 3.1 cm (2.7 - 3.8) AV Cusp: 1.6 cm (1.5 - 2.6) EPSS: 1.4 cm MR Vmax: 1.26 m/s MR maxP.33 mmHg AV Vmax: 1.24 m/s AV maxP.24 mmHg TR Vmax: 1.33 m/s TR maxP.04 mmHg RAP: 5.00 mmHg RVSP: 12.04 mmHg MV EF SLOPE: 120.97 mm/s (70 - 150) MV EXCURSION: 23.23 mm (> 18.000) FINDINGS -------- Atrial fibrillation. This was a technically adequate study. The left ventricular size is normal. There is mild concentric left ventricular hypertrophy. Overa ll left ventricular systolic function is normal with, an EF between 55 - 60 %. Left ventricular paul limg pressure cannot be estimated due to Atrial fibrillation. The RV was not well visualized. The left atrial size is normal. The right atrial size is normal. The aortic valve was not well visualized. The mitral valve is normal. There is trace mitral regurgitation. The tricuspid valve appears structurally normal. Trace tricuspid regurgitation present. Right carmine tricular systolic pressure is normal at < 35 mmHg. There is no pulmonic regurgitation present. The aortic root size is normal. IVC Not well visulized. There is no pericardial effusion. CONCLUSIONS -------- 1. The left ventricular size is normal. 2. There is mild concentric left ventricular hypertrophy. 3. Overall left ventricular systolic function is normal with, an EF between 55 - 60 %. 4. Left ventricular fillimg pressure cannot be estimated due to Atrial fibrillation. 5. There is trace mitral regurgitation. 6. Trace tricuspid regurgitation present. 7. There is no pericardial effusion. EXERCISE PHYSIOLOGY PROFESSOR: Estrellita Diallo RDCS
[2020-07-18] MEDS ORDERED: guaiFENesin-DM 100-10MG/5ML 10 ML CUP PO PRN (11:08)
--- NOTE | 2020-07-18 11:14 | P.PN ---
Subjective 68-year-old male was admitted for back pain found to have compression fracture appears to be old compression fracture was evaluated by orthopedic surgery. As today was unable to evaluate the patient patient doesn't have any radicular symptoms doesn't have any saddle anesthesia bowel or bladder incontinence. Patient presently has a Russo catheter because of the most probably benign prostatic hypertrophy. Agree with orthopedic assessment the patient will not need an MRI/MRA will be discontinued. Patient had elevated troponins because of which are cardiology will evaluate the patient., Physical therapy and occupational therapy will be consulted patient has left above-knee amputation patient also had stents in the left the leg in the past. Patient is still complaining of some shortness of breath presently remains on 4 L of oxygen altho ugh patient is not wheezing at this time. Patient pain is pretty well controlled at this time. 07/18/2020 Patient was evaluated by cardiology. Echocardiac and was opted which did not show any significant abnormality but there is still concerned about significant coronary vascular disease considering that there is no good explanation for his elevated troponins and shortness of breath patient is presently on 2 L of oxygen not in COPD exacerbation. Patient probably will undergo cardiac catheterization today. Back pain is significantly better is complaining of some cough. Constitutional: Denied any fatigue denied any fever. Cardio vascular: denied any chest pain, palpitations Gastrointestinal denied any nausea vomiting Pulmonary: Denied any shortness of breath cough Neurologic denied any new focal deficits All inpatient medications were reviewed and appropriate changes in these medica tions as dictated in the interval history and assessment and plan. Objective - Vital Signs Vital signs: Vital Signs Temp 98 F 07/18/20 08:13 Pulse 91 07/18/20 08:13 Resp 17 07/18/20 08:13 BP 120/58 07/18/20 08:13 Pulse Ox 93 L 07/18/20 08:13 Intake & Output 07/17/20 07/18/20 07/18/20 18:59 06:59 18:59 Intake Total 720 240 Output Total 425 150 Balance 295 -150 240 Weight 52.5 kg Intake: Oral 720 240 Output: Urine 425 150 Other: Voiding Method Indwelling Catheter Indwelling Catheter Bedside Commode Urinal # Bowel Movements 1 - Exam PHYSICAL EXAMINATION: GENERAL: The patient is alert and oriented x3, not in any acute distress. Well developed, well nourished. HEENT: Pupils are round and equally reacting to light. EOMI. No scleral icterus. No conjunctival pallor. Normocephalic, atraumatic. No pharyngeal erythema. No thyromegaly. CARDIOVASCULAR: S1 and S2 present. No murmurs, rubs, or gallops. PULMONARY: Chest is clear to auscultation, no wheezing or crackles. ABDOMEN: Soft, nontender, nondistended, normoactive bowel sounds. No palpable organomegaly. MUSCULOSKELETAL: Left above-knee amputation EXTREMITIES: No cyanosis, clubbing, or pedal edema. NEUROLOGICAL: Gross neurological examination did not reveal any focal deficits. SKIN: No rashes. - Labs CBC & Chem 7: 07/18/20 06:10 07/18/20 06:10 Labs: Abnormal Lab Results - Last 24 Hours (Table) 07/17/20 07/17/20 07/18/20 Range/Units 16:18 23:13 06:10 Hgb 12.2 L (13.0-17.5) gm/dL Hct 37.8 L (39.0-53.0) % Carbon Dioxide (22-30) mmol/L BUN (9-20) mg/dL POC Glucose (mg/dL) 130 H 197 H (75-99) mg/dL 07/18/20 Range/Units 06:10 Hgb (13.0-17.5) gm/dL Hct (39.0-53.0) % Carbon Dioxide 31 H (22-30) mmol/L BUN 34 H (9-20) mg/dL POC Glucose (mg/dL) (75-99) mg/dL Microbiology - Last 24 Hours (Table) 07/16/20 13:15 Blood Culture - Preliminary Blood No Growth after 24 hours 07/16/20 13:00 Blood Culture - Preliminary Blood No Growth after 24 hours Assessment and Plan Plan: -Severe low back pain: Patient will be started on anti-intermittent medications patient will be continued on pain medications that he is taking at home, pain management to her was consulted test with the orthopedic surgery patient doesn't appear to have cauda equina syndrome or an abscess patient will not require any MRI MRA was discontinued -Acute hypoxic respiratory failure requiring 8 L of oxygen secondary to multiple opiates patient is presently on 2 lts of oxygen is not in COPD exacerbation CT did not show any PE concern of acute coronary syndromes because of which cardiology may do cardiac catheterization on this patient -Mildly elevated troponins, possibility non-ST elevation myocardial infarction cannot be ruled out -Problems with urination symptomatology is consistent with BPH -Peripheral neuropathy -Type II type disorders next and-coronary artery disease -Professor disease -Continue nicotine use -Possible COPD -Depression -DVT prophylaxis with Lovenox For above-mentioned chronic medical problems patient will be resumed on appropriate home medications
[2020-07-18 12:02] LABS: Glucose,Whole Blood 164 mg/dL (75-99)
[2020-07-18] MEDS: BUDESONIDE 0.5 MG/2 ML NEBU INHALATION SCH ×2 (12:11→20:14)
[2020-07-18] MEDS: HYDROcodone/APAP 10-325MG 1 EACH TAB PO PRN (13:38)
--- NOTE | 2020-07-18 15:08 | P.PN ---
Subjective This is a 70-year-old male past medical history coronary artery disease and he underwent stenting long time ago was performed at [facility] the details are unknown at this point and the patient currently follows with a tie layer at [facility], Diabetes and hypertension and dyslipidemia and he is a smoker. He presented to the hospital with that and he underwent a computed tomography scan which revealed fracture T12. Orthopedic surgery consulted to see the patient and they advised a conservative medical approach because they think that the T12 fracture is chronic and not acute. No plan for any surgery at this point. The EKG showed sinus rhythm without any significant ST or T-wave abnormalities. The troponin came in to be slightly elevated. Kidney function is within normal limits as well as his hemoglobin. His oxygen saturation also seems to be within normal limits. Unfortunately the patient continues to smoke and he stated that he is working on cutting back on smoking. 07/18/2020: Patient seen and examined at bedside, sitting up in chair in no acute distress. has no complaints at this time. Pressure 129/70, heart rate 82, afebrile on 4 L nasal cannula. Echocardiogram EF 5560% trace MR, trace TR. Troponin 0.08-->0.54-->0.59. renal function stable. Telemetry tracings- sinus rhythm with HR 70s-80s PHYSICAL EXAMINATION CONSTITUTIONAL: No apparent distress. HEENT: Head is normocephalic. Pupils are equal, round. Sclerae anicteric. Mucous membranes of the mouth are moist. No JVD. No carotid bruit. CHEST EXAMINATION: Lungs are clear to auscultation. No chest wall tenderness is noted on palpation or with deep breathing. HEART EXAMINATION: Regular rate and rhythm. S1, S2 heard. No murmurs, gallops or rub. ABDOMEN: Soft, nontender. Positive bowel sounds. EXTREMITIES: 2+ peripheral pulses, no lower extremity edema and no calf tenderness. NEUROLOGIC EXAMINATION: Patient is awake, alert and oriented x3. ASSESSMENT severe low back pain chronic T12 fracture mildly elevated troponin shortness of breath history of coronary artery disease and prior revascularization significant history of smoking Type 2 diabetes PLAN Continue the current medical regimen including aspirin, continue beta yareli Will discuss ruling out severe underlying coronary artery disease either invasively or noninvasively with patient Further recommendations to follow. Nurse Practitioner note has been reviewed, I agree with a documented findings and plan of care. Patient was seen and examined. Objective - Vital Signs Vital signs: Vital Signs Temp 98 F 07/18/20 08:13 Pulse 91 07/18/20 08:13 Resp 17 07/18/20 08:13 BP 120/58 07/18/20 08:13 Pulse Ox 93 L 07/18/20 08:13 Intake & Output 07/17/20 07/18/20 07/18/20 18:59 06:59 18:59 Intake Total 720 240 Output Total 425 150 Balance 295 -150 240 Weight 52.5 kg Intake: Oral 720 240 Output: Urine 425 150 Other: Voiding Method Indwelling Catheter Indwelling Catheter Bedside Commode Urinal # Bowel Movements 1 - Labs CBC & Chem 7: 07/18/20 06:10 07/18/20 06:10 Labs: Abnormal Lab Results - Last 24 Hours (Table) 07/17/20 07/17/20 07/18/20 Range/Units 16:18 23:13 06:10 Hgb 12.2 L (13.0-17.5) gm/dL Hct 37.8 L (39.0-53.0) % Carbon Dioxide (22-30) mmol/L BUN (9-20) mg/dL POC Glucose (mg/dL) 130 H 197 H (75-99) mg/dL 07/18/20 Range/Units 06:10 Hgb (13.0-17.5) gm/dL Hct (39.0-53.0) % Carbon Dioxide 31 H (22-30) mmol/L BUN 34 H (9-20) mg/dL POC Glucose (mg/dL) (75-99) mg/dL Microbiology - Last 24 Hours (Table) 07/16/20 13:15 Blood Culture - Preliminary Blood No Growth after 24 hours 07/16/20 13:00 Blood Culture - Preliminary Blood No Growth after 24 hours
[2020-07-18] MEDS ORDERED: ALPRAZolam 0.25 MG TAB PO PRN (15:09)
[2020-07-18] MEDS ORDERED: NITROGLYCERIN SL TABS 0.4 MG TAB SUBLINGUAL PRN (15:09)
[2020-07-18] MEDS ORDERED: ALPRAZolam 0.5 MG TAB PO PRN (15:09)
[2020-07-18 16:17] LABS: Hemoglobin A1C 6.7 % (4.0-6.0)
[2020-07-18 17:02] LABS: Glucose,Whole Blood 136 mg/dL (75-99)
[2020-07-18] MEDS: TAMSULOSIN 0.4 MG CAP.ER.24H PO SCH (17:48)
[2020-07-18] MEDS: DULoxetine HCL 60 MG CAPSULE.DR PO SCH (17:48)
[2020-07-18 20:42] LABS: Glucose,Whole Blood 166 mg/dL (75-99)
[2020-07-19] MEDS ORDERED: SODIUM CHLORIDE 0.9% 1,000 ML in EMPTY BAG 1 BAG IV ONE
[2020-07-19] MEDS: GABAPENTIN 300 MG CAP PO SCH ×4 (02:54→21:13)
[2020-07-19 06:12] LABS: Glucose,Whole Blood 114 mg/dL (75-99)
[2020-07-19] MEDS: INSULIN ASPART (NovoLOG) 100 UNIT/ML VIAL SQ SCH ×4 (06:13→21:07)
[2020-07-19 06:28] LABS: African American GFR (CKD) >90 (>60 ml/min/1.73 sqM); Anion Gap 5 mmol/L; Blood Urea Nitrogen 32 mg/dL (9-20); Carbon Dioxide 32 mmol/L (22-30); Chloride 101 mmol/L (98-107); Glucose 111 mg/dL (74-99); Non-African American GFR(CKD) 85 (>60 ml/min/1.73 sqM); Sodium 138 mmol/L (137-145)
[2020-07-19] MEDS: PANTOPRAZOLE 40 MG TABLET PO SCH (06:33)
[2020-07-19 06:37] LABS: Calcium 8.9 mg/dL (8.4-10.2); Potassium 3.9 mmol/L (3.5-5.1)
[2020-07-19] MEDS ORDERED: HEPARIN SODIUM,PORCINE 2,500 UNIT in SODIUM CHLORIDE 0.9% 250 ML IRRIGATION PRN (07:00)
[2020-07-19] MEDS ORDERED: HEPARIN SODIUM,PORCINE 10,000 UNIT in SODIUM CHLORIDE 0.9% 1,000 ML IRRIGATION PRN (07:00)
[2020-07-19] MEDS: metFORMIN 500 MG TAB PO SCH (07:39)
[2020-07-19] MEDS: ESCITALOPRAM 10 MG TAB PO SCH (08:39)
[2020-07-19] MEDS: ATORVASTATIN 80 MG TAB PO SCH (08:39)
[2020-07-19] MEDS: ASPIRIN 81 MG PO SCH (08:39)
[2020-07-19] MEDS: lisinopriL 20 MG TAB PO SCH (08:39)
[2020-07-19] MEDS: MULTIVITAMINS, THERA 1 EACH TAB PO SCH (08:39)
[2020-07-19] MEDS: amLODIPine 5 MG TAB PO SCH (08:39)
[2020-07-19] MEDS: METOPROLOL SUCCINATE (ER) 25 MG TAB.ER.24H PO SCH (08:39)
[2020-07-19] MEDS: ENOXAPARIN 40 MG/0.4 ML SYRINGE SQ SCH (08:40)
[2020-07-19] MEDS: IPRATROPIUM-ALBUTEROL 3 ML NEB INHALATION SCH ×4 (08:43→20:39)
[2020-07-19] MEDS ORDERED: LIDOCAINE 1% INJ 10MG/ML (20 ML MDV) ONE (08:44)
[2020-07-19] MEDS: BUDESONIDE 0.5 MG/2 ML NEBU INHALATION SCH ×2 (08:44→20:39)
[2020-07-19] MEDS ORDERED: IV FLUID CONTINUATION 1,000 ML IV ONE (09:10)
[2020-07-19] MEDS ORDERED: VERAPAMIL 2.5 MG/ML 2 ML AMP ONE (09:12)
[2020-07-19] MEDS ORDERED: MIDAZOLAM 2 MG/2 ML VIAL IVP ONE (09:16)
[2020-07-19] MEDS ORDERED: LIDOCAINE 1% INJ 10MG/ML (20 ML MDV) SQ ONE (09:18)
[2020-07-19] MEDS ORDERED: BIVALIRUDIN BOLUS 250 MG/50 ML IV ONE (09:28)
[2020-07-19] MEDS ORDERED: BIVALIRUDIN 250 MG in SODIUM CHLORIDE 0.9% 50 ML IV ONE (09:29)
[2020-07-19] MEDS ORDERED: CLOPIDOGREL 75 MG TAB ONE (09:29)
[2020-07-19] MEDS ORDERED: NITROGLYCERIN 1000MCG/10ML SYRINGE INTRACORON ONE (09:30)
[2020-07-19] MEDS ORDERED: CLOPIDOGREL 75 MG TAB PO ONE (09:32)
[2020-07-19] MEDS ORDERED: IOPAMIDOL-370 125ML BTL INJ ONE (09:39)
[2020-07-19] MEDS ORDERED: MAG HYDROX/AL HYDROX/SIMETH 30 ML CUP PO PRN (09:43)
[2020-07-19] MEDS ORDERED: ATROPINE SULFATE 0.1 MG/ML 10ML SYRINGE IV PRN (09:43)
[2020-07-19] MEDS ORDERED: ZOLPIDEM 5 MG TAB PO PRN (09:43)
[2020-07-19] MEDS ORDERED: NITROGLYCERIN SL TABS 0.4 MG TAB SUBLINGUAL PRN (09:43)
[2020-07-19] MEDS ORDERED: RX INFO: IV CONTRAST WAS GIVEN 1 EACH MISC MISCELLANE PRN (09:43)
[2020-07-19] MEDS ORDERED: SODIUM CHLORIDE 0.9% 1,000 ML IV SCH (09:45)
--- NOTE | 2020-07-19 10:04 | CC ---
CARDIAC CATHETERIZATION REPORT HEART CATHETERIZATION AND PERCUTANEOUS CORONARY INTERVENTION: PERFORMING PHYSICIAN: Paxton Palafox MD. PROCEDURE PERFORMED: 1. Selective right and left coronary angiogram. 2. Left heart catheterization. 3. Successful stenting of the mid right coronary artery using a 4.0 x 18 mm Xience drug-eluting stent with an excellent angiographic result and reduction of stenosis from 99% to 0%. INDICATION: This is a pleasant 70-year-old gentleman with coronary artery disease and prior stenting of the LAD as well as peripheral arterial disease and prior left above-the- knee amputation, presented to the hospital with shortness of breath and he was ruled in for acute coronary syndrome. Because of that, a heart catheterization was advised. APPROACH: Right common femoral artery. COMPLICATION: None. LEVEL OF SEDATION: Moderate with sedation length of 18 minutes. PROCEDURE DESCRIPTION: After obtaining an informed consent, the patient was brought to the cardiac lab coordinator. The right common femoral artery was cannulated using micropuncture technique, the micropuncture wire passed easily then I placed a 6-Wolof sheath at the right radial artery. I did selective right and left coronary angiogram with JR4 and JL3.5 catheters. Left heart catheterization was performed using the JR4 catheter which crossed the aortic valve then I did pullback across the valve. After that I did intervene on the right coronary artery. Please see a separate paragraph for that. SELECTIVE CORONARY ANGIOGRAM: 1. The RCA is a large caliber vessel. It is a dominant vessel. The RCA in the midportion has a critical lesion appeared to be in the range of 99.9%. Distally, it bifurcates into PDA and PLV branches both appeared to be angiographically normal and proximally angiographically normal. 2. The left main is angiographically normal. It bifurcates into left circumflex as well as left anterior descending artery. 3. The left circumflex is a moderate caliber vessel. It is a nondominant vessel. The left circumflex is angiographically normal. 4. The LAD is a large caliber vessel. The proximal LAD appeared to be angiographically normal and gives rise into the first and second diagonal branches both appeared to be angiographically normal. The mid LAD is stented with intermediate in-stent restenosis appeared to be in the range of 50%. The LAD distally appeared to be angiographically normal. HEMODYNAMICS: The LVEDP was 10 to 12 mmHg without significant gradient across the aortic valve. PCI OF THE RCA: Anticoagulation was initiated using Angiomax. Subsequently I did engage the RCA using JR3.5 guide. I did wire the RCA using a run-through wire. I did direct stenting on the lesion using a 4.0 x 18 mm Xience drug-eluting stent where the stent was positioned under fluoroscopy guidance and deployed under 16 atmospheres for 20 seconds with the following angiogram showing excellent angiographic results and the procedure was completed without any complication. CONCLUSION: 1. Acute ldm-AE-[id number] myocardial infarction in this 70-year-old gentleman with known coronary artery disease and prior stenting of the LAD. 2. Critical disease involving the RCA. I performed successful stenting of the RCA. 3. Intermediate in-stent restenosis involving the mid left anterior descending artery. 4. Normal left circumflex coronary artery. 5. Normal left main coronary artery. 6. Normal LVEDP. POSTPROCEDURE MANAGEMENT: 1. Smoking cessation was discussed with him multiple times. 2. Continue dual anti-platelet therapy. 3. Aggressive risk factor modifications including controlling diabetes as well as hypertension and dyslipidemia. 4. Follow up with the patient. MMODL / IJN: [id number] /
[2020-07-19] MEDS: HYDROcodone/APAP 10-325MG 1 EACH TAB PO PRN ×2 (11:21→17:56)
[2020-07-19 14:57] VITALS: BMI 14.8
--- NOTE | 2020-07-19 16:09 | P.PN ---
Subjective 68-year-old male was admitted for back pain found to have compression fracture appears to be old compression fracture was evaluated by orthopedic surgery. As today was unable to evaluate the patient patient doesn't have any radicular symptoms doesn't have any saddle anesthesia bowel or bladder incontinence. Patient presently has a Russo catheter because of the most probably benign prostatic hypertrophy. Agree with orthopedic assessment the patient will not need an MRI/MRA will be discontinued. Patient had elevated troponins because of which are cardiology will evaluate the patient., Physical therapy and occupational therapy will be consulted patient has left above-knee amputation patient also had stents in the left the leg in the past. Patient is still complaining of some shortness of breath presently remains on 4 L of oxygen altho ugh patient is not wheezing at this time. Patient pain is pretty well controlled at this time. 07/18/2020 Patient was evaluated by cardiology. Echocardiac and was opted which did not show any significant abnormality but there is still concerned about significant coronary vascular disease considering that there is no good explanation for his elevated troponins and shortness of breath patient is presently on 2 L of oxygen not in COPD exacerbation. Patient probably will undergo cardiac catheterization today. Back pain is significantly better is complaining of some cough. 07/19/2020 patient had a cardiac catheterization and stent to RCA today, patient had 100% occluded RCA. Constitutional: Denied any fatigue denied any fever. Cardio vascular: denied any chest pain, palpitations Gastrointestinal denied any nausea vomiting Pulmonary: Denied any shortness of breath cough Neurologic denied any new focal deficits All inpatient medications were reviewed and appropriate changes in these medications as dictated in the interval history and assessment and plan. Objective - Vital Signs Vital signs: Vital Signs Temp 98.1 F 07/19/20 08:13 Pulse 80 07/19/20 16:01 Resp 18 07/19/20 12:56 BP 146/69 07/19/20 12:56 Pulse Ox 92 L 07/19/20 12:56 Intake & Output 07/18/20 07/19/20 07/19/20 18:59 06:59 18:59 Intake Total 580 150 Output Total 170 150 375 Balance 410 -150 -225 Weight 52.5 kg 52.5 kg Intake: IV 150 Oral 580 Output: Urine 170 150 375 Stool 0 Other: Voiding Method Bedside Commode Bedside Commode Bedside Commode Urinal Urinal # Voids 1 1 1 # Bowel Movements 0 - Exam PHYSICAL EXAMINATION: GENERAL: The patient is alert and oriented x3, not in any acute distress. Well developed, well nourished. HEENT: Pupils are round and equally reacting to light. EOMI. No scleral icterus. No conjunctival pallor. Normocephalic, atraumatic. No pharyngeal erythema. No thyromegaly. CARDIOVASCULAR: S1 and S2 present. No murmurs, rubs, or gallops. PULMONARY: Chest is clear to auscultation, no wheezing or crackles. ABDOMEN: Soft, nontender, nondistended, normoactive bowel sounds. No palpable organomegaly. MUSCULOSKELETAL: Left above-knee amputation EXTREMITIES: No cyanosis, clubbing, or pedal edema. NEUROLOGICAL: Gross neurological examination did not reveal any focal deficits. SKIN: No rashes. - Labs CBC & Chem 7: 07/18/20 06:10 07/19/20 05:29 Labs: Abnormal Lab Results - Last 24 Hours (Table) 07/18/20 07/18/20 07/18/20 Range/Units 06:10 17:01 20:21 Carbon Dioxide (22-30) mmol/L BUN (9-20) mg/dL Glucose (74-99) mg/dL POC Glucose (mg/dL) 136 H 166 H (75-99) mg/dL Hemoglobin A1c 6.7 H (4.0-6.0) % 07/19/20 07/19/20 Range/Units 05:29 06:10 Carbon Dioxide 32 H (22-30) mmol/L BUN 32 H (9-20) mg/dL Glucose 111 H (74-99) mg/dL POC Glucose (mg/dL) 114 H (75-99) mg/dL Hemoglobin A1c (4.0-6.0) % Microbiology - Last 24 Hours (Table) 07/16/20 13:15 Blood Culture - Preliminary Blood No Growth after 48 hours 07/16/20 13:00 Blood Culture - Preliminary Blood No Growth after 48 hours Assessment and Plan Plan: -Acute hypoxic respiratory failure requiring 8 L of oxygen secondary to multiple opiates patient is presently on 2 lts of oxygen is not in COPD exacerbation CT did not show any PE concern of acute coronary syndromes because of which cardiology may do cardiac catheterization on this patient. Patient shortness of breath appears to be secondary to unstable angina patient had a cardiac catheterization and stenting to RCA -Acute non-ST elevation myocardial infarction: Stent to RCA -Severe low back pain: Patient will be started on anti-intermittent medications patient will be continued on pain medications that he is taking at home, patient the pain significant improved since his admission. -Problems with urination symptomatology is consistent with BPH continue with the tamsulosin -Peripheral neuropathy -Type II type disorders next and-coronary artery disease -Professor disease -Continue nicotine use -Possible COPD -Depression -DVT prophylaxis with Lovenox For above-mentioned chronic medical problems patient will be resumed on appropriate home medications
[2020-07-19 17:02] LABS: Glucose,Whole Blood 175 mg/dL (75-99)
[2020-07-19] MEDS: SODIUM CHLORIDE 0.9% 1,000 ML IV SCH ×3 (17:06→22:57)
[2020-07-19] MEDS: DULoxetine HCL 60 MG CAPSULE.DR PO SCH (17:55)
[2020-07-19] MEDS: TAMSULOSIN 0.4 MG CAP.ER.24H PO SCH (17:56)
[2020-07-19 20:27] LABS: Glucose,Whole Blood 120 mg/dL (75-99)
[2020-07-20] MEDS: HYDROcodone/APAP 10-325MG 1 EACH TAB PO PRN (01:36)
[2020-07-20 06:20] LABS: Glucose,Whole Blood 118 mg/dL (75-99)
[2020-07-20] MEDS: INSULIN ASPART (NovoLOG) 100 UNIT/ML VIAL SQ SCH ×2 (06:21→12:11)
[2020-07-20] MEDS: PANTOPRAZOLE 40 MG TABLET PO SCH (06:24)
[2020-07-20] MEDS: IPRATROPIUM-ALBUTEROL 3 ML NEB INHALATION SCH ×2 (08:31→11:31)
[2020-07-20] MEDS: BUDESONIDE 0.5 MG/2 ML NEBU INHALATION SCH (08:31)
[2020-07-20 09:35] LABS: African American GFR (CKD) >90 (>60 ml/min/1.73 sqM); Non-African American GFR(CKD) >90 (>60 ml/min/1.73 sqM)
[2020-07-20] MEDS ORDERED: CLOPIDOGREL 75 MG TAB PO SCH (09:44)
[2020-07-20] MEDS: ESCITALOPRAM 10 MG TAB PO SCH (10:01)
[2020-07-20] MEDS: ATORVASTATIN 80 MG TAB PO SCH (10:01)
[2020-07-20] MEDS: lisinopriL 20 MG TAB PO SCH (10:01)
[2020-07-20] MEDS: METOPROLOL SUCCINATE (ER) 25 MG TAB.ER.24H PO SCH (10:01)
[2020-07-20] MEDS: ENOXAPARIN 40 MG/0.4 ML SYRINGE SQ SCH (10:01)
[2020-07-20] MEDS: amLODIPine 5 MG TAB PO SCH (10:01)
[2020-07-20] MEDS: ASPIRIN 81 MG PO SCH (10:01)
[2020-07-20] MEDS: MULTIVITAMINS, THERA 1 EACH TAB PO SCH (10:01)
[2020-07-20] MEDS: GABAPENTIN 300 MG CAP PO SCH (10:02)
--- NOTE | 2020-07-20 12:00 | P.PN ---
Subjective Progress Note Date: 07/20/20 This is a 70-year-old gentleman with past medical history of coronary artery disease with prior stent placement, diabetes, hypertension, hyperlipidemia, nicotine dependence, who initially presented to the hospital with symptoms of severe lower back pain, he ruled in for non-Q-wave myocardial infarction and was taken to the cardiac catheterization lab where the patient underwent angioplasty and stenting of the right coronary artery. He was seen and examined this morning, denied any chest discomfort or difficulty in breathing. His blood pressure 150/70 with a heart rate in the 70s, 90% on room air. He is afebrile. Creatinine is 0.69 today. Objective - Vital Signs Vital signs: Vital Signs Temp 97.0 F L 07/20/20 08:00 Pulse 80 07/20/20 08:45 Resp 16 07/20/20 08:00 BP 156/71 07/20/20 08:00 Pulse Ox 90 L 07/20/20 08:00 Intake & Output 07/19/20 07/20/20 07/20/20 18:59 06:59 18:59 Intake Total 150 462 118 Output Total 475 645 Balance -325 -183 118 Weight 52.5 kg 53.5 kg Intake: IV 150 Oral 462 118 Output: Urine 475 645 Stool 0 Other: Voiding Method Bedside Commode Urinal # Voids 1 1 # Bowel Movements 0 - Exam PHYSICAL EXAMINATION CONSTITUTIONAL: No apparent distress. HEENT: Head is normocephalic. Pupils are equal, round. Sclerae anicteric. Mucous membranes of the mouth are moist. No JVD. No carotid bruit. CHEST EXAMINATION: Lungs are clear to auscultation. No chest wall tenderness is noted on palpation or with deep breathing. HEART EXAMINATION: Regular rate and rhythm. S1, S2 heard. No murmurs, gallops or rub. ABDOMEN: Soft, nontender. Positive bowel sounds. EXTREMITIES: 2+ peripheral pulses, no lower extremity edema and no calf tenderness. NEUROLOGIC EXAMINATION: Patient is awake, alert and oriented x3. - Labs CBC & Chem 7: 07/18/20 06:10 07/20/20 09:01 Labs: Abnormal Lab Results - Last 24 Hours (Table) 07/19/20 07/19/20 07/20/20 Range/Units 17:00 20:25 06:18 POC Glucose (mg/dL) 175 H 120 H 118 H (75-99) mg/dL Microbiology - Last 24 Hours (Table) 07/16/20 13:15 Blood Culture - Preliminary Blood No Growth after 72 hours 07/16/20 13:00 Blood Culture - Preliminary Blood No Growth after 72 hours Assessment and Plan Plan: Assessment and plan #1 severe lower back pain #2 acute coronary syndrome, status post RCA stenting #3 history of coronary artery disease with prior revascularization #4 nicotine dependence #5 diabetes #6 hyperlipidemia Plan From cardiology's perspective, patient may be able to be discharged home today. He will continue on dual antiplatelet therapy. Follow up in the office one week post discharge. DNP note has been reviewed, I agree with a documented findings and plan of care. Patient was seen and examined.
[2020-07-20 12:09] LABS: Glucose,Whole Blood 95 mg/dL (75-99)
--- NOTE | 2020-07-20 12:09 | P.DS ---
Providers Date of admission: 07/16/20 12:23 Attending physician: Ghazala Hermosillo Consults: 07/16/20 12:20 Consult Physician Routine Consulting Provider: Chace Angeles Consult Reason/Comments: severe back pain Do you want consulting provider notified?: Already Contacted 07/16/20 14:00 Consult Physician Routine Consulting Provider: Son Roldan Consult Reason/Comments: pain Do you want consulting provider notified?: Yes 07/17/20 11:31 Consult Physician Routine Consulting Provider: Paxton Palafox Consult Reason/Comments: elevated troponin Do you want consulting provider notified?: Yes 07/19/20 09:43 Consult Physician Routine Consulting Provider: [facility] Consult Reason/Comments: Post Interventional patient Do you want consulting provider notified?: Already Contacted Primary care physician: [facility] Course: 68-year-old male was admitted for back pain found to have compression fracture appears to be old compression fracture was evaluated by orthopedic surgery. As today was unable to evaluate the patient patient doesn't have any radicular symptoms doesn't have any saddle anesthesia bowel or bladder incontinence. Patient presently has a Russo catheter because of the most probably benign prostatic hypertrophy. Agree with orthopedic assessment the patient will not need an MRI/MRA will be discontinued. Patient had elevated troponins because of which are cardiology will evaluate the patient., Physical therapy and occupational therapy will be consulted patient has left above-knee amputation patient also had stents in the left the leg in the past. Patient is still complaining of some shortness of breath presently remains on 4 L of oxygen although patient is not wheezing at this time. Patient pain is pretty well controlled at this time. 07/18/2020 Patient was evaluated by cardiology. Echocardiac and was opted which did not show any significant abnormality but there is still concerned about significant coronary vascular disease considering that there is no good explanation for his elevated troponins and shortness of breath patient is presently on 2 L of oxygen not in COPD exacerbation. Patient probably will undergo cardiac catheterization today. Back pain is significantly better is complaining of some cough. 07/19/2020 patient had a cardiac catheterization and stent to RCA today, patient had 100% occluded RCA. 07/20/2020 Patient is clinically doing well be discharged today. Patient back pain is well controlled. Patient is a slightly wheezing when he was using a nebulizer. Will ablate the patient to see if patient will need any home oxygen patient will be discharged on inhaled steroids patient does have albuterol ipratropium at home nicotine cessation counseling was provided. Patient will be discharged today. PHYSICAL EXAMINATION: GENERAL: The patient is alert and oriented x3, not in any acute distress. Well developed, well nourished. HEENT: Pupils are round and equally reacting to light. EOMI. No scleral icterus. No conjunctival pallor. Normocephalic, atraumatic. No pharyngeal erythema. No thyromegaly. CARDIOVASCULAR: S1 and S2 present. No murmurs, rubs, or gallops. PULMONARY: Chest is clear to auscultation, no wheezing or crackles. ABDOMEN: Soft, nontender, nondistended, normoactive bowel sounds. No palpable organomegaly. MUSCULOSKELETAL: Left above-knee amputation EXTREMITIES: No cyanosis, clubbing, or pedal edema. NEUROLOGICAL: Gross neurological examination did not reveal any focal deficits. SKIN: No rashes. Assessment and Plan Plan: -Acute non-ST elevation myocardial infarction: Stent to RCA -Acute hypoxic respiratory failure resolved now. Acute respiratory failure on admission is secondary to opiates, patient does have emphysema patient may or may not need oxygen depending on the his ambulatory pulse ox. -Severe low back pain: Improved and there is no evidence of cauda equina syndrome, compression. -Problems with urination symptomatology is consistent with BPH continue, improved with tamsulosin -Peripheral neuropathy -Type II type disorders next and-coronary artery disease -Professor disease -Continue nicotine use -Possible COPD -Depression Plan - Discharge Summary Discharge Rx Participant: Yes New Discharge Prescriptions: New Tamsulosin [Flomax] 0.4 mg PO PC-SUPPER #30 cap.er.24h Nitroglycerin Sl Tabs [Nitrostat] 0.4 mg SUBLINGUAL Q5M PRN #30 tab PRN Reason: Chest Pain Atorvastatin [Lipitor] 80 mg PO DAILY #30 tab Clopidogrel [Plavix] 75 mg PO DAILY #30 tab Budesonide-Formot 160-4.5 Mcg [Symbicort 160-4.5 Mcg Inhaler] 2 puff INHALATION BID #1 inhaler Metoprolol Succinate (ER) [Toprol XL] 25 mg PO DAILY #30 tab.er.24h Continue Aspirin 81 mg PO DAILY metFORMIN HCL [Glucophage] 500 mg PO BID DULoxetine HCL [Cymbalta] 60 mg PO W/SUPPER lisinopriL [Prinivil] 20 mg PO QAM Pantoprazole Sodium [Protonix] 40 mg PO DAILY Escitalopram [Lexapro] 10 mg PO DAILY amLODIPine [Norvasc] 5 mg PO DAILY fentaNYL 100MCG/HR PATCH [Duragesic 100MCG/HR] 100 mcg TRANSDERM Q72H #1 patch Gabapentin [Neurontin] 300 mg PO TID #9 cap Hydrocodone/Acetaminophen [Assumption 10-325] 1 tab PO Q6H PRN #12 tablet PRN Reason: Pain Cholecalciferol (Vitamin D3) [Vitamin D3 (5000 Iu)] 250 mcg PO VEE Enulose 10gm/15ml 20 gm PO Q48H PRN PRN Reason: Constipation Albuterol Inhaler [Ventolin Hfa Inhaler] 2 puff INHALATION RT-QID PRN PRN Reason: Shortness Of Breath Multivitamins, Thera [Multivitamin (formulary)] 1 tab PO DAILY Discharge Medication List Aspirin 81 mg PO DAILY 01/14/14 [History] DULoxetine HCL [Cymbalta] 60 mg PO W/SUPPER 01/14/14 [History] lisinopriL [Prinivil] 20 mg PO QAM 01/14/14 [History] metFORMIN HCL [Glucophage] 500 mg PO BID 01/14/14 [History] Escitalopram [Lexapro] 10 mg PO DAILY 06/13/18 [History] Pantoprazole Sodium [Protonix] 40 mg PO DAILY 06/13/18 [History] amLODIPine [Norvasc] 5 mg PO DAILY 06/13/18 [History] Gabapentin [Neurontin] 300 mg PO TID #9 cap 06/17/18 [Rx] Hydrocodone/Acetaminophen [Assumption 10-325] 1 tab PO Q6H PRN #12 tablet 06/17/18 [Rx] fentaNYL 100MCG/HR PATCH [Duragesic 100MCG/HR] 100 mcg TRANSDERM Q72H #1 patch 06/17/18 [Rx] Albuterol Inhaler [Ventolin Hfa Inhaler] 2 puff INHALATION RT-QID PRN 07/16/20 [History] Cholecalciferol (Vitamin D3) [Vitamin D3 (5000 Iu)] 250 mcg PO VEE 07/16/20 [History] Enulose 10gm/15ml 20 gm PO Q48H PRN 07/16/20 [History] Multivitamins, Thera [Multivitamin (formulary)] 1 tab PO DAILY 07/16/20 [History] Atorvastatin [Lipitor] 80 mg PO DAILY #30 tab 07/20/20 [Rx] Budesonide-Formot 160-4.5 Mcg [Symbicort 160-4.5 Mcg Inhaler] 2 puff INHALATION BID #1 inhaler 07/20/20 [Rx] Clopidogrel [Plavix] 75 mg PO DAILY #30 tab 07/20/20 [Rx] Metoprolol Succinate (ER) [Toprol XL] 25 mg PO DAILY #30 tab.er.24h 07/20/20 [Rx] Nitroglycerin Sl Tabs [Nitrostat] 0.4 mg SUBLINGUAL Q5M PRN #30 tab 07/20/20 [Rx] Tamsulosin [Flomax] 0.4 mg PO PC-SUPPER #30 cap.er.24h 07/20/20 [Rx] Follow up Appointment(s)/Referral(s): Chace Angeles DO [Doctor of Osteopathic Medicine] - 2 Weeks Fidencio Barrientos MD [Primary Care Provider] - 1-2 days
[2020-07-20 12:43] VITALS: BP 139/65; PULSE 66; RESP 18; TEMP 97.5
[2020-07-21] MEDS ORDERED: CHOLECALCIFEROL 25 MCG (1000 IU) TABLET PO SCH (09:00)
== END 2020-07-20 15:03 | disposition home or self-care (01) | DRG 246 ==
LOC: EC 05:42 → 3SCARD 12:23
PROVIDERS: ADMIT Internal Medicine; ATTEND Internal Medicine
PROC: 027034Z Dilation of Coronary Artery, One Artery with Drug-eluting Intraluminal Device, Percutaneous Approach (ICD-10-PCS; principal; 2020-07-19 09:00)
PROC: 4A023N7 Measurement of Cardiac Sampling and Pressure, Left Heart, Percutaneous Approach (ICD-10-PCS; principal; 2020-07-19 09:00)
PROC: B2111ZZ Fluoroscopy of Multiple Coronary Arteries using Low Osmolar Contrast (ICD-10-PCS; principal; 2020-07-19 09:00)
DX: I21.4 Non-ST elevation (NSTEMI) myocardial infarction (principal); J96.01 Acute respiratory failure with hypoxia; T82.855A Stenosis of coronary artery stent, initial encounter; E87.2 Acidosis; R65.10 Systemic inflammatory response syndrome (SIRS) of non-infectious origin without acute organ dysfunction; E11.51 Type 2 diabetes mellitus with diabetic peripheral angiopathy without gangrene; E11.42 Type 2 diabetes mellitus with diabetic polyneuropathy; J43.9 Emphysema, unspecified; Z89.612 Acquired absence of left leg above knee; Z20.822 Contact with and (suspected) exposure to COVID-19; G89.4 Chronic pain syndrome; M48.54XS Collapsed vertebra, not elsewhere classified, thoracic region, sequela of fracture; M51.36 Other intervertebral disc degeneration, lumbar region; M54.5 Low back pain; N40.1 Benign prostatic hyperplasia with lower urinary tract symptoms; R33.8 Other retention of urine; R35.0 Frequency of micturition; E78.5 Hyperlipidemia, unspecified; F32.9 Major depressive disorder, single episode, unspecified; I25.10 Atherosclerotic heart disease of native coronary artery without angina pectoris; I11.9 Hypertensive heart disease without heart failure; I25.2 Old myocardial infarction; M19.90 Unspecified osteoarthritis, unspecified site; T40.605A Adverse effect of unspecified narcotics, initial encounter; F17.210 Nicotine dependence, cigarettes, uncomplicated; Z71.6 Tobacco abuse counseling; Z79.84 Long term (current) use of oral hypoglycemic drugs; Z79.82 Long term (current) use of aspirin; Z79.891 Long term (current) use of opiate analgesic; Z79.899 Other long term (current) drug therapy; Z86.19 Personal history of other infectious and parasitic diseases; Z87.2 Personal history of diseases of the skin and subcutaneous tissue; Z86.69 Personal history of other diseases of the nervous system and sense organs; Z86.14 Personal history of Methicillin resistant Staphylococcus aureus infection; Z87.438 Personal history of other diseases of male genital organs; Z95.5 Presence of coronary angioplasty implant and graft; Z90.79 Acquired absence of other genital organ(s); Z98.890 Other specified postprocedural states; Z91.81 History of falling; Z88.0 Allergy status to penicillin; Y83.1 Surgical operation with implant of artificial internal device as the cause of abnormal reaction of the patient, or of later complication, without mention of misadventure at the time of the procedure; Z80.3 Family history of malignant neoplasm of breast
CPT/HCPCS: 36415; 70450; 71260; 74177; 80048; 80053; 80306; 81001; 82565; 83036; 83605; 83735; 83880; 84100; 84484; 85025; 85027; 85610; 85730; 87040; 87635; 93005; 93306; 93458; 94640; 96361; 96365; 96372; 96375; 99285

== ENCOUNTER 2020-08-21 19:08 | Inpatient (IN) | payer MEDICARE ==
[2020-08-21] MEDS ORDERED: fentaNYL (PF) 50 MCG/ML 2 ML AMP IVP STA (19:24)
--- NOTE | 2020-08-21 19:32 | ED ---
General Adult HPI - General Chief complaint: Extremity Injury, Lower Stated complaint: fall Time Seen by Provider: 08/21/20 19:09 Source: patient, EMS, RN notes reviewed, old records reviewed Mode of arrival: EMS Limitations: physical limitation - History of Present Illness Initial comments: 70-year-old male presents status post fall with left hip pain. Patient has had previous [id number] amputation of the left lower extremity. He was in his electric wheelchair which has a faulty control and the patient did accidentally go off his front porch. He states this was approximately 12 inches high. There was no head neck or back trauma. No chest pain or abdominal pain. Patient states he fell onto his left hip. He was transported by EMS with stable vitals. He has no other complaints other than left hip pain. Patient is on Plavix, no anticoagulation. - Related Data Home Medications Medication Instructions Recorded Confirmed Aspirin 81 mg PO DAILY 01/14/14 08/21/20 DULoxetine HCL [Cymbalta] 60 mg PO W/SUPPER 01/14/14 08/21/20 lisinopriL [Prinivil] 20 mg PO DAILY 01/14/14 08/21/20 metFORMIN HCL [Glucophage] 500 mg PO BID 01/14/14 08/21/20 Escitalopram [Lexapro] 10 mg PO DAILY 06/13/18 08/21/20 Pantoprazole Sodium [Protonix] 40 mg PO DAILY 06/13/18 08/21/20 amLODIPine [Norvasc] 5 mg PO DAILY 06/13/18 08/21/20 Albuterol Inhaler [Ventolin Hfa 2 puff INHALATION RT-QID PRN 07/16/20 08/21/20 Inhaler] Cholecalciferol (Vitamin D3) 250 mcg PO VEE 07/16/20 08/21/20 [Vitamin D3 (5000 Iu)] Enulose 10gm/15ml 20 gm PO Q48H PRN 07/16/20 08/21/20 Multivitamins, Thera [Multivitamin 1 tab PO DAILY 07/16/20 08/21/20 (formulary)] Budesonide-Formot 160-4.5 Mcg 2 puff INHALATION RT-BID 08/21/20 08/21/20 [Symbicort 160-4.5 Mcg Inhaler] Previous Rx's Medication Instructions Recorded Gabapentin [Neurontin] 300 mg PO TID #9 cap 06/17/18 Hydrocodone/Acetaminophen [[place] 1 tab PO Q6H PRN #12 tablet 06/17/18 10-325] fentaNYL 100MCG/HR PATCH 100 mcg TRANSDERM Q72H #1 patch 06/17/18 [Duragesic 100MCG/HR] Atorvastatin [Lipitor] 80 mg PO DAILY #30 tab 07/20/20 Clopidogrel [Plavix] 75 mg PO DAILY #30 tab 07/20/20 Metoprolol Succinate (ER) [Toprol 25 mg PO DAILY #30 tab.er.24h 07/20/20 XL] Nitroglycerin Sl Tabs [Nitrostat] 0.4 mg SUBLINGUAL Q5M PRN #30 tab 07/20/20 Tamsulosin [Flomax] 0.4 mg PO PC-SUPPER #30 cap.er.24h 07/20/20 Allergies Allergy/AdvReac Type Severity Reaction Status Date / Time azithromycin [From Zithromax] Allergy Rash/Hives Verified 08/21/20 20:12 Review of Systems ROS Statement: Those systems with pertinent positive or pertinent negative responses have been documented in the HPI. ROS Other: All systems not noted in ROS Statement are negative. 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 left testicle removed. heart stent x1 Past Anesthesia/Blood Transfusion Reactions: No Reported Reaction Date of Last Stent Placement:: 2006 Past Psychological History: Depression Smoking Status: Current every day smoker Past Alcohol Use History: None Reported Past Drug Use History: Marijuana - Past Family History Sister(s) Family Medical History: Cancer Additional Family Medical History / Comment(s): double mastectomy, still surviving Father Family Medical History: No Reported History Mother Family Medical History: No Reported History Additional Family Medical History / Comment(s): hpoglycemia General Exam Limitations: physical limitation General appearance: alert, in no apparent distress Head exam: Present: atraumatic, normocephalic Eye exam: Present: normal appearance, PERRL ENT exam: Present: normal exam Neck exam: Present: normal inspection. Absent: tenderness, meningismus Respiratory exam: Present: normal lung sounds bilaterally. Absent: respiratory distress, wheezes Cardiovascular Exam: Present: regular rate, normal rhythm GI/Abdominal exam: Present: soft. Absent: distended, tenderness, guarding Extremities exam: Present: other (Left AKA, no external signs of trauma, no bruising, no laceration or abrasion. Range of motion limited at the hip secondary to pain. Some increased pain with palpation of the pelvis although no instability noted.) Neurological exam: Present: alert, oriented X3 Psychiatric exam: Present: normal affect, normal mood Skin exam: Present: warm, dry, intact. Absent: cyanosis, diaphoretic Course Vital Signs 08/21/20 08/21/20 19:17 19:24 Temperature 98.6 F Pulse Rate 82 Respiratory 18 18 Rate Blood Pressure 140/82 O2 Sat by Pulse 99 100 Oximetry Medical Decision Making - Medical Decision Making 70-year-old male status post fall with left hip injury, x-ray showing a left intertrochanteric fracture. Head CT was performed although there was no head trauma this is negative for intracranial hemorrhage or mass effect. I did discuss case with Dr. Karthik magana for orthopedics, this is likely nonoperative hip fracture given his previous AKA. Patient will be admitted to internal medicine for pain control with orthopedics on consult. CBC, CMP, PT/INR have been ordered results pending. Disposition Clinical Impression: Intertrochanteric fracture of left femur Disposition: ADMITTED IP TO THIS [facility] Condition: Stable Is patient prescribed a controlled substance at d/c from ED?: No Referrals: Fidencio Barrientos MD [Primary Care Provider] - 1-2 days Decision to Admit Reason: Admit from EC Decision Date: 08/21/20 Decision Time: 20:54
--- NOTE | 2020-08-21 19:57 | CT ---
EXAMINATION TYPE: CT brain cspine wo con DATE OF EXAM: 08/21/2020 COMPARISON: CT brain 07/16/2020 HISTORY: pain CT DLP: 1316.3 mGycm Automated exposure control for dose reduction was used. There is some cerebral atrophy. There is no mass effect nor midline shift. There is no sign of intrac ranial hemorrhage. Calvarium is intact. Skull base is intact. There is normal aeration of the mastoid sinuses. The cervical vertebra have normal alignment. There is degenerative disc space narrowing from C2 to C7 level. There is multilevel mild facet arthropathy. There is some mild thickening of the transverse l igament with calcification. Occipital bone is intact. IMPRESSION: Spondylotic changes in the cervical spine. No fracture seen. Cerebral atrophy. No acute intracranial abnormality. No change compared to old exam. Pulmonary emphysema noted at the lung apices with pleural and pulmonary scarring.
[2020-08-21] MEDS ORDERED: HYDROmorphone 0.5 MG/0.5 ML SYRINGE IVP STA (20:20)
--- NOTE | 2020-08-21 20:42 | XR ---
EXAMINATION TYPE: XR Hip LT and AP Pelvis DATE OF EXAM: 08/21/2020 COMPARISON: NONE HISTORY: Hip pain TECHNIQUE: 4 views FINDINGS: There is intertrochanteric fracture left femur. There is some coxa vera deformity. There is osteopenia. There is amputation of the left leg at the level of the mid femur. The pelvic ring is intact. Sacroiliac joints are intact. There are stents in the left iliac arteries. IMPRESSION: Acute intertrochanteric fracture left femur.
[2020-08-21] MEDS ORDERED: ACETAMINOPHEN TAB 325 MG TAB PO PRN (20:49)
[2020-08-21] MEDS ORDERED: NALOXONE 0.4 MG/ML 1 ML VIAL IV PRN (20:49)
[2020-08-21] MEDS ORDERED: DIAZEPAM 5 MG/ML 2 ML INJ IVP STA (20:51)
[2020-08-21 21:12] LABS: Basophils % (A) 0 %; Eosinophils # (A) 0.1 k/uL (0-0.7); Eosinophils % (A) 2 %; HCT 35.8 % (39.0-53.0); HGB 11.2 gm/dL (13.0-17.5); Hypochromasia Marked; Lymphocytes # (A) 0.6 k/uL (1.0-4.8); Lymphocytes % (A) 8 %; MCH 26.2 pg (25.0-35.0); MCHC 31.2 g/dL (31.0-37.0); MCV 84.1 fL (80.0-100.0); Mean Platelet Volume 7.7; Monocytes # (A) 0.4 k/uL (0-1.0); Monocytes % (A) 5 %; Neutrophils # (A) 6.3 k/uL (1.3-7.7); Neutrophils % (A) 83 %; Platelet Count 359 k/uL (150-450); RBC 4.26 m/uL (4.30-5.90); RDW 15.6 % (11.5-15.5); WBC 7.5 k/uL (3.8-10.6)
[2020-08-21 21:22] LABS: Partial Thromboplastin Time 25.6 sec (22.0-30.0)
[2020-08-21 21:23] LABS: ALT 26 U/L (4-49); AST 26 U/L (17-59); African American GFR (CKD) >90 (>60 ml/min/1.73 sqM); Albumin 3.5 g/dL (3.5-5.0); Alkaline Phosphatase 75 U/L (38-126); Anion Gap 4 mmol/L; Blood Urea Nitrogen 39 mg/dL (9-20); Calcium 8.9 mg/dL (8.4-10.2); Carbon Dioxide 29 mmol/L (22-30); Chloride 104 mmol/L (98-107); Glucose 113 mg/dL (74-99); Non-African American GFR(CKD) 78 (>60 ml/min/1.73 sqM); Potassium 4.4 mmol/L (3.5-5.1); Sodium 137 mmol/L (137-145); Total Bilirubin 0.4 mg/dL (0.2-1.3); Total Protein 6.2 g/dL (6.3-8.2)
[2020-08-21] MEDS ORDERED: IPRATROPIUM-ALBUTEROL 3 ML NEB INHALATION STA (21:39)
[2020-08-21] MEDS: SODIUM CHLORIDE 0.9% 1,000 ML IV SCH (23:36)
[2020-08-22] MEDS: HYDROmorphone 1 MG/ML 1 ML SYRINGE IVP PRN ×5 (00:25→19:42)
--- NOTE | 2020-08-22 08:01 | P.CNOR ---
History of Present Illness - HPI Consult date: 08/22/20 Consult reason: fracture History of present illness: Patient is a 70-year-old male who seen and examined today at bedside. Patient presented to the emergency room after a fall and subsequent left hip fracture. The patient has a long history of vascular issues and in the passes undergone below-knee amputation and subsequent above-knee amputation which was performed in 2009. He states he had the surgery done here at [place] but does not remember the surgeon. He says that overall he does fairly well with his above- knee amputation. However yesterday he was in his motorized wheelchair and lost control and went over a step and fell out of the chair and fell onto his left hip with his full weight. He denies loss of consciousness. Denies chest pain or shortness of breath. He denies severe prior pain of his left hip to this. After the fall. Severe pain and some altered position at his left stump. Presented to the emergency room was found to have a left hip fracture and we are consult in this regard. Patient admits to severe pain at his left hip. He denies changes in bowel bladder function. He has a [place] intact currently. He normally transfers on his own from his bed and to a wheelchair and to the toilet. He has good use of his right lower extremity good use of his upper extremities. He says he manages well at home with his above-knee 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 using his motorized whe elchair. He lives at home with his . He normally is able to transfer independently to his wheelchair. Review of Systems As stated per HPI. Denies abdominal pain any chest pain shortness of breath. Denies any loss of consciousness at the time of the fall. Long history of diabetes and vascular pathology. 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 knee wound + FOR MRSA. History of high left above-knee amputation done approximately 2009. 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 left testicle removed. heart stent x1 Past Anesthesia/Blood Transfusion Reactions: No Reported Reaction Date of Last Stent Placement:: 2006 Past Psychological History: Depression Smoking Status: Current every day smoker Past Alcohol Use History: None Reported Additional Past Alcohol Use History / Comment(s): Patient is a smoker one and a half packs of cigarettes per day for 52 years. He smokes marijuana on a daily basis and has done so for many decades. He denies any alcohol use. He lives at home with his and there is one dog and 3 cats in the home. 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 He denies any service. Past Drug Use History: Marijuana Additional Drug Use History / Comment(s): medical marijuana card-uses daily- INSTRUCTED TO REFRAIN FROM USE AT LEAST 24 HRS PRIOR TO PROCEDURE - Past Family History Sister(s) Family Medical History: Cancer Additional Family Medical History / Comment(s): double mastectomy, still surviving Father Family Medical History: No Reported History Mother Family Medical History: No Reported History Additional Family Medical History / Comment(s): hypoglycemia Medications and Allergies Home Medications Medication Instructions Recorded Confirmed Type Aspirin 81 mg PO DAILY 01/14/14 08/21/20 History DULoxetine HCL [Cymbalta] 60 mg PO W/SUPPER 01/14/14 08/21/20 History lisinopriL [Prinivil] 20 mg PO DAILY 01/14/14 08/21/20 History metFORMIN HCL [Glucophage] 500 mg PO BID 01/14/14 08/21/20 History Escitalopram [Lexapro] 10 mg PO DAILY 06/13/18 08/21/20 History Pantoprazole Sodium [Protonix] 40 mg PO DAILY 06/13/18 08/21/20 History amLODIPine [Norvasc] 5 mg PO DAILY 06/13/18 08/21/20 History Gabapentin [Neurontin] 300 mg PO TID #9 cap 06/17/18 08/21/20 Rx Hydrocodone/Acetaminophen [[place] 1 tab PO Q6H PRN #12 tablet 06/17/18 08/21/20 Rx 10-325] fentaNYL 100MCG/HR PATCH 100 mcg TRANSDERM Q72H #1 patch 06/17/18 08/21/20 Rx [Duragesic 100MCG/HR] Albuterol Inhaler [Ventolin Hfa 2 puff INHALATION RT-QID PRN 07/16/20 08/21/20 History Inhaler] Cholecalciferol (Vitamin D3) 250 mcg PO VEE 07/16/20 08/21/20 History [Vitamin D3 (5000 Iu)] Enulose 10gm/15ml 20 gm PO Q48H PRN 07/16/20 08/21/20 History Multivitamins, Thera [Multivitamin 1 tab PO DAILY 07/16/20 08/21/20 History (formulary)] Atorvastatin [Lipitor] 80 mg PO DAILY #30 tab 07/20/20 08/21/20 Rx Clopidogrel [Plavix] 75 mg PO DAILY #30 tab 07/20/20 08/21/20 Rx Metoprolol Succinate (ER) [Toprol 25 mg PO DAILY #30 tab.er.24h 07/20/20 08/21/20 Rx XL] Nitroglycerin Sl Tabs [Nitrostat] 0.4 mg SUBLINGUAL Q5M PRN #30 tab 07/20/20 08/21/20 Rx Tamsulosin [Flomax] 0.4 mg PO PC-SUPPER #30 cap.er.24h 07/20/20 08/21/20 Rx Budesonide-Formot 160-4.5 Mcg 2 puff INHALATION RT-BID 08/21/20 08/21/20 History [Symbicort 160-4.5 Mcg Inhaler] Allergies Allergy/AdvReac Type Severity Reaction Status Date / Time azithromycin [From Zithromax] Allergy Rash/Hives Verified 08/21/20 20:12 Physical Examination Osteopathic Statement: *. No significant issues noted on an osteopathic structural exam other than those noted in the History and Physical/Consult. - Fracture left hip Location of fracture: Left hip Appearance: other (He has a high left above-knee amputation. His stump is quite short. The stump appears to be soft and in good condition without any evidence of skin breakdown or tension. He has tenderness over his left hip. His compartments are soft. He has pain with motion around his left hip. His right lower) Compartments: soft (At his left above-knee amputation stump compartments are soft. His right lower extremity has full active and passive range of motion with good strength. Compartments are soft. Pelvis is stable.) Results - Labs Labs: Abnormal Lab Results - Last 24 Hours (Table) 08/21/20 08/21/20 Range/Units 21:01 21:01 RBC 4.26 L (4.30-5.90) m/uL Hgb 11.2 L (13.0-17.5) gm/dL Hct 35.8 L (39.0-53.0) % RDW 15.6 H (11.5-15.5) % Lymphocytes # 0.6 L (1.0-4.8) k/uL BUN 39 H (9-20) mg/dL Glucose 113 H (74-99) mg/dL Total Protein 6.2 L (6.3-8.2) g/dL H & H 08/21/20 Range/Units 21:01 Hgb 11.2 L (13.0-17.5) gm/dL Hct 35.8 L (39.0-53.0) % Coagulation 08/21/20 Range/Units 21:01 INR 1.0 (<1.2) Result Diagrams: 08/21/20 21:01 08/21/20 21:01 - Diagnostic results Hip x-ray: report reviewed, image reviewed (X-rays of pelvis and left hip show above-knee amputation with limited length. There is a basicervical/intertroc hanteric femur fracture with some valgus alignment. There is some compression at the fracture site.) Hip MRI: report reviewed Assessment and Plan Assessment: Acute left hip basicervical/intertrochanteric femur fracture status post fall with history of high left femur above-knee amputation Nonambulator Long-term vascular pathology Diabetes Left femur stump in good condition Plan: Acute left hip basicervical/intertrochanteric femur fracture status post fall with history of high left femur above-knee amputation Nonambulator Long-term vascular pathology Diabetes Left femur stump in good condition The patient has a unique situation where he has a high left lower extremity above-knee amputation with limited stump length and unfortunately had an acute trauma with his fall and broke his left hip at the intertrochanteric area. He is moving in bed fairly well though he is having pain in his left hip u nderstandably. His compartments are soft and his stump is in good condition without any skin breakdown or evidence of significant soft tissue damage. His compartments are soft. Given his nonambulatory status as well as the short stump length and his bone quality along with the vascular pathology I think his best course of treatment for his fracture is to maintain conservative care. I do not think that surgical intervention would offer him any benefit and would certainly pose the possibility of significant complications for wound healing. It seems quite unlikely that surgical intervention would offer him any functional benefit. I discussed this with him at length. I discussed the nature of his injury and his status given his extensive history and above-knee amputation. I think that he should continue with conservative care. We do not have plans for surgical intervention at this point. It is okay for him to have a regular diet and to start some mobilization training for transfers as he had been doing with physical therapy. With the fracture he will need some pain control. We discussed the possibly also of bracing however that would also be difficult given the short stature of his stump. He like to see how it goes without bracing for now and I think that is reasonable. He will continue with conservative treatment. Time with Patient: Less than 30
[2020-08-22] MEDS: metFORMIN 500 MG TAB PO SCH ×2 (08:26→19:41)
[2020-08-22] MEDS: METOPROLOL SUCCINATE (ER) 25 MG TAB.ER.24H PO SCH (08:28)
[2020-08-22] MEDS: ATORVASTATIN 80 MG TAB PO SCH (08:28)
[2020-08-22] MEDS: ESCITALOPRAM 10 MG TAB PO SCH (08:28)
[2020-08-22] MEDS: amLODIPine 5 MG TAB PO SCH (08:28)
[2020-08-22] MEDS: lisinopriL 20 MG TAB PO SCH (08:28)
[2020-08-22] MEDS: SYMBICORT 160-4.5 MCG INHALER INHALATION SCH ×2 (08:31→19:37)
[2020-08-22] MEDS: HYDROcodone/APAP 10-325MG 1 EACH TAB PO PRN ×3 (10:21→22:12)
[2020-08-22 14:38] VITALS: BMI 13.7
[2020-08-22] MEDS: IPRATROPIUM-ALBUTEROL 3 ML NEB INHALATION PRN ×2 (16:15→19:36)
[2020-08-22] MEDS: NICOTINE 14MG/24HR PATCH TRANSDERM SCH (17:02)
--- NOTE | 2020-08-22 17:35 | P.HPIM ---
History of Present Illness H&P Date: 08/22/20 Baldev Joyce, is a 70-year-old male who presented to 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 He was evaluated in the emergency room, vital examination on presentation revealed a temperature of 98.6 pulse 82 respiration 18 blood pressure 140/82 pulse ox 99% on room air, white blood count was 7.5 hemoglobin 11.2 platelet count 359 BUN 39 creatinine 0.97 coronavirus PCR was negative. Computed tomography scan of the head and the cervical spine did not reveal any acute abnormality, x-ray of the pelvis and the left hip revealed evidence of acute intertrochanteric fracture of the left femur, patient was admitted to medical floor, orthopedic consultation was requested. Patient has a known history of hypertension, hyperlipidemia, [id number]-[id number] diabetes mellitus, severe peripheral vascular disease, benign prostatic hypertrophy, gastroesophageal reflux disease, depression, COPD, chronic pain syndrome, and continued tobacco use. 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 knee wound + FOR MRSA. History of high left above-knee amputation done approximately 2009. Last Myocardial Infarction Date:: 2003 History of Any Multi-Drug Resistant Organisms: MRSA Date of last positivie culture/infection: 04/02/16 MDRO Source:: LT KNEE WOUND Past Surgical History: Heart Catheterization With Stent, Orthopedic Surgery Additional Past Surgical History / Comment(s): STENTS TO LEFT GROIN, LEFT BELOW THE KNEE AMPUTATION, unsuccessful revascularization left leg, shoulder surgery, surgical debridement of necrotic tissue left scrotal area, LT AKA 03/03/16. left testicle removed. heart stent x1 Past Anesthesia/Blood Transfusion Reactions: No Reported Reaction Date of Last Stent Placement:: 2006 Past Psychological History: Depression Smoking Status: Current every day smoker Past Alcohol Use History: None Reported Additional Past Alcohol Use History / Comment(s): Patient is a smoker one and a half packs of cigarettes per day for 52 years. He smokes marijuana on a daily basis and has done so for many decades. He denies any alcohol use. He lives at home with his and there is one dog and 3 cats in the home. 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 He denies any service. Past Drug Use History: Marijuana Additional Drug Use History / Comment(s): medical marijuana card-uses daily-INSTRUCTED TO REFRAIN FROM USE AT LEAST 24 HRS PRIOR TO PROCEDURE - Past Family History Sister(s) Family Medical History: Cancer Additional Family Medical History / Comment(s): double mastectomy, still surviving Father Family Medical History: No Reported History Mother Family Medical History: No Reported History Additional Family Medical History / Comment(s): hypoglycemia Medications and Allergies Home Medications Medication Instructions Recorded Confirmed Type Aspirin 81 mg PO DAILY 01/14/14 08/21/20 History DULoxetine HCL [Cymbalta] 60 mg PO W/SUPPER 01/14/14 08/21/20 History lisinopriL [Prinivil] 20 mg PO DAILY 01/14/14 08/21/20 History metFORMIN HCL [Glucophage] 500 mg PO BID 01/14/14 08/21/20 History Escitalopram [Lexapro] 10 mg PO DAILY 06/13/18 08/21/20 History Pantoprazole Sodium [Protonix] 40 mg PO DAILY 06/13/18 08/21/20 History amLODIPine [Norvasc] 5 mg PO DAILY 06/13/18 08/21/20 History Gabapentin [Neurontin] 300 mg PO TID #9 cap 06/17/18 08/21/20 Rx Hydrocodone/Acetaminophen [[place] 1 tab PO Q6H PRN #12 tablet 06/17/18 08/21/20 Rx 10-325] fentaNYL 100MCG/HR PATCH 100 mcg TRANSDERM Q72H #1 patch 06/17/18 08/21/20 Rx [Duragesic 100MCG/HR] Albuterol Inhaler [Ventolin Hfa 2 puff INHALATION RT-QID PRN 07/16/20 08/21/20 History Inhaler] Cholecalciferol (Vitamin D3) 250 mcg PO VEE 07/16/20 08/21/20 History [Vitamin D3 (5000 Iu)] Enulose 10gm/15ml 20 gm PO Q48H PRN 07/16/20 08/21/20 History Multivitamins, Thera [Multivitamin 1 tab PO DAILY 07/16/20 08/21/20 History (formulary)] Atorvastatin [Lipitor] 80 mg PO DAILY #30 tab 07/20/20 08/21/20 Rx Clopidogrel [Plavix] 75 mg PO DAILY #30 tab 07/20/20 08/21/20 Rx Metoprolol Succinate (ER) [Toprol 25 mg PO DAILY #30 tab.er.24h 07/20/20 08/21/20 Rx XL] Nitroglycerin Sl Tabs [Nitrostat] 0.4 mg SUBLINGUAL Q5M PRN #30 tab 07/20/20 08/21/20 Rx Tamsulosin [Flomax] 0.4 mg PO PC-SUPPER #30 cap.er.24h 07/20/20 08/21/20 Rx Budesonide-Formot 160-4.5 Mcg 2 puff INHALATION RT-BID 08/21/20 08/21/20 History [Symbicort 160-4.5 Mcg Inhaler] Allergies Allergy/AdvReac Type Severity Reaction Status Date / Time azithromycin [From Zithromax] Allergy Rash/Hives Verified 08/21/20 20:12 Physical Exam Vitals: Vital Signs Temp Pulse Pulse Resp BP BP Pulse Ox 08/22/20 07:50 16 08/22/20 07:31 98.3 F 64 16 166/79 91 L 08/22/20 02:00 98.5 F 94 18 176/80 93 L 08/21/20 23:48 20 08/21/20 23:08 97.6 F 65 20 156/77 97 08/21/20 22:43 98.6 F 78 24 149/73 95 08/21/20 21:54 78 08/21/20 21:42 79 08/21/20 21:40 77 24 164/92 95 08/21/20 21:20 89 19 149/72 08/21/20 19:24 18 100 08/21/20 19:17 98.6 F 82 18 140/82 99 Intake and Output 08/21/20 08/22/20 08/22/20 22:59 06:59 14:59 Output Total 800 Balance -800 Output: Urine 800 Other: Voiding Method Indwelling Catheter # Bowel Movements 0 Weight 49.895 kg 49.895 kg In general patient is alert and oriented ?-3 in no distress HEENT head normocephalic and atraumatic Neck is supple no JVD no goiter no lymphadenopathy no carotid bruit Chest examination reveals a scattered crackles bilaterally no wheezing Cardiac exam reveals regular heart sounds S1 and S2 no gallops no murmurs Abdomen is soft nontender no organomegaly with normal bowel sounds Extremity exam reveals no edema no cyanosis or clubbing, patient had a high left [id number] amputation Neurological examination reveals no gross focal deficits Results CBC & Chem 7: 08/21/20 21:08/21/20 21: Labs: Abnormal Lab Results - Last 24 Hours (Table) 08/21/20 08/21/20 Range/Units 21: 21: RBC 4.26 L (4.30-5.90) m/uL Hgb 11.2 L (13.0-17.5) gm/dL Hct 35.8 L (39.0-53.0) % RDW 15.6 H (11.5-15.5) % Lymphocytes # 0.6 L (1.0-4.8) k/uL BUN 39 H (9-20) mg/dL Glucose 113 H (74-99) mg/dL Total Protein 6.2 L (6.3-8.2) g/dL Thrombosis Risk Factor Assmnt - Choose All That Apply Any of the Below Risk Factors Present?: No Other Risk Factors: Yes Each Risk Factor Represents 2 Points: Age 61-74 years, Patient confined to bed Each Risk Factor Represents 5 Points: Hip, pelvis, or leg fracture (< 1 month) Thrombosis Risk Factor Assessment Total Risk Factor Score: 9 Thrombosis Risk Factor Assessment Level: High Risk Assessment and Plan Plan: 1. intertrochanteric fracture of the left femur 2. Underlying history of hypertension 3. Underlying history of hyperlipidemia 4. Underlying history of peripheral vascular disease 5. Underlying history of gastroesophageal reflux disease 6. Underlying history of COPD 7. Underlying history of depression 8. Underlying history of chronic pain syndrome At this time home medications reviewed and reordered Pain management patient resumed on [place], and is given IV dye Dilaudid for breakthrough pain Orthopedic consultation requested Patient counseled again in regard to smoking cessation and given a nicotine patch Will recheck labs and follow-up in a.m.
[2020-08-22] MEDS: TAMSULOSIN 0.4 MG CAP.ER.24H PO SCH (17:49)
[2020-08-22] MEDS: SODIUM CHLORIDE 0.9% 1,000 ML IV SCH (19:48)
[2020-08-23] MEDS: HYDROmorphone 1 MG/ML 1 ML SYRINGE IVP PRN ×7 (01:15→23:30)
[2020-08-23] MEDS: HYDROcodone/APAP 10-325MG 1 EACH TAB PO PRN ×3 (07:14→19:39)
[2020-08-23] MEDS: METOPROLOL SUCCINATE (ER) 25 MG TAB.ER.24H PO SCH (07:14)
[2020-08-23] MEDS: lisinopriL 20 MG TAB PO SCH (07:14)
[2020-08-23] MEDS: ATORVASTATIN 80 MG TAB PO SCH (07:15)
[2020-08-23] MEDS: amLODIPine 5 MG TAB PO SCH (07:15)
[2020-08-23] MEDS: ESCITALOPRAM 10 MG TAB PO SCH (07:15)
[2020-08-23] MEDS: metFORMIN 500 MG TAB PO SCH ×2 (07:15→20:25)
[2020-08-23] MEDS: NICOTINE 14MG/24HR PATCH TRANSDERM SCH (07:15)
[2020-08-23] MEDS: SYMBICORT 160-4.5 MCG INHALER INHALATION SCH ×2 (07:50→21:23)
[2020-08-23] MEDS: IPRATROPIUM-ALBUTEROL 3 ML NEB INHALATION PRN (07:50)
--- NOTE | 2020-08-23 08:50 | P.PN ---
Progress Note - Text Progress Note Date: 08/23/20 Orthopedics: History of present illness: Patient is a pleasant 70-year-old male who was seen and examined at bedside for final evaluation for his left hip. He is known to have a high left above-knee amputation and is nonweightbearing on her left lower extremity. He sustained a fall out of his motorized wheelchair falling on his left hip. He sustained a left hip basicervical/intertrochanteric femur fracture. He is known have significant long-term vascular pathology. After further evaluation yesterday he was recommended to continue conservative treatment. Patient states he does continue to have some pain in his left hip with activity but feels overall his pain has been fairly well controlled with [place] 10 mg/325 mg and fentanyl patch. Patient is prescribed both of these medications and outpatient setting by his primary care provider. He continues to be seen and examined by medicine. He continues to have a [place] catheter intact. His urine is dark and cloudy this morning. He states this morning he has had a little bit of pain over his right lateral malleolus with a small red cervical. He has not sustained any specific injury to his right ankle. He does not have evidence of swelling or bruising of the right ankle. He does have some chronic-appearing skin changes of the right lower extremity. Physical Exam: Patient is awake, alert, and oriented 3 Vital signs stable Adequate chest excursion with deep inspiration and expiration Evidence of left high above-knee amputation Left lower extremity stump is soft with no evidence of skin breakdown No significant erythema or bruising over the left hip Pain with palpation over the left hip Stump is soft palpation Evidence of a small erythematous [place] approximately 2 cm across over the right lateral malleolus No significant bruising or swelling at the right ankle No obvious sign of infection of the right ankle Patient is able to perform dorsiflexion and plantarflexion of the right lower extremity Patient is able to perform active range of motion of the right lower extremity Rus[place] catheter intact Assessment: Acute left hip basicervical/intertrochanteric hip fracture status post fall History of left high above-knee amputation Diabetes mellitus Long-term vascular pathology Nonambulator on the left lower extremity Acute left hip pain COPD Hypertension History of myocardial infarction Current every day smoker Acute right lateral ankle pain without injury and without obvious sign of infection Plan: 1. After physical examination the patient, further the discussion with the patient, and based on the patient's medical history, we will currently planned to continue conservative treatment in regards to his left hip basicervical/intertrochanteric hip fracture. Patient does continue to have some pain in his left hip. He is able to transfer in bed but does have some increased left hip pain while doing so. He is known have a left high above-knee amputation. His left stump is in good condition without evidence of skin break down or evidence of significant tissue damage. His stump is soft. There is no evidence of erythema, bruising, or swelling over the left stump. He is normally a nonambulator. We again did discuss given his history of vascular pathology, his nonambulatory status, shortness stump length, and bone quality, we do not feel proceeding forward with surgical intervention would provide any significant benefit and could also lead to significant complications with wound healing. Patient is also a chronic every day smoker which could further complicated wound healing. Patient's pain has been controlled with [place] 10 mg/325 mg and fentanyl. He does state she takes his medication outpatient setting as prescribed by his primary care provider. We discussed he may continue to take this medication as prescribed for pain control. We also discussed this medicine can be adjusted by his primary care provider. At this time would not plan to prescribe other medications at the time of discharge. We did discuss patient can be clear for discharge home today if cleared by medicine. Patient does not wish to be discharged to a rehabilitation facility.Patient may follow-up with Austin Chowdary PA-C or Dr. Mitul Angeles at [facility] in 1-2 weeks following discharge. He'll continue with his nonambulatory status and the left lower extremity. 2. Patient does have a small area of erythema over the right lateral ankle. He does not have obvious evidence of infection in his right ankle. There is not evidence of any significant bruising or swelling over the right ankle. He is able to perform active dorsiflexion and plantarflexion of the right ankle. He is able to perform active range of motion of the right lower extremity. He does have some chronic-appearing vascular changes of the right lower extremity. Patient states he does not recall who his vascular surgeon is but that they are local. He does follow with Dr. Barrientos in the outpatient setting. Given his significant medical history with his vascular pathology, diabetes mellitus, and current every day smoker, we'll currently planned to have the patient evaluated by medicine for further evaluation at his lateral right ankle. Consult with vascular disease may be ordered at the discretion of medicine. Patient's right ankle does not appear to need any acute treatment from an orthopedic standpoint. He has not sustained any injury to the right ankle. 3. The patient will continue be seen examined by medicine for his multiple medical diagnoses including COPD, hypertension, history of myocardial infarction, current every day smoker, diabetes mellitus, and long-term vascular pathology. Medicine will continue to manage his Russo catheter as well. Given the turbid and dark color of his urine, we will plan to obtain a urinalysis.
[2020-08-23 09:38] LABS: Potassium 3.9 mmol/L (3.5-5.1)
[2020-08-23 09:39] LABS: ALT 31 U/L (4-49); AST 58 U/L (17-59); African American GFR (CKD) >90 (>60 ml/min/1.73 sqM); Albumin 3.2 g/dL (3.5-5.0); Albumin/Globulin Ratio 1.1; Alkaline Phosphatase 54 U/L (38-126); Anion Gap 7 mmol/L; Blood Urea Nitrogen 31 mg/dL (9-20); Calcium 8.6 mg/dL (8.4-10.2); Carbon Dioxide 27 mmol/L (22-30); Chloride 104 mmol/L (98-107); Globulin 2.8 g/dL; Glucose 183 mg/dL (74-99); Non-African American GFR(CKD) >90 (>60 ml/min/1.73 sqM); Sodium 138 mmol/L (137-145); Total Bilirubin 0.7 mg/dL (0.2-1.3)
[2020-08-23 09:44] LABS: Basophils % (A) 0 %; Eosinophils % (A) 0 %; Hypochromasia Marked; Lymphocytes # (A) 0.5 k/uL (1.0-4.8); Lymphocytes % (A) 6 %; MCH 25.5 pg (25.0-35.0); MCHC 30.2 g/dL (31.0-37.0); MCV 84.3 fL (80.0-100.0); Mean Platelet Volume 8.1; Monocytes # (A) 0.6 k/uL (0-1.0); Monocytes % (A) 6 %; Neutrophils # (A) 8.4 k/uL (1.3-7.7); Neutrophils % (A) 87 %; Platelet Count 340 k/uL (150-450); RBC 3.56 m/uL (4.30-5.90); RDW 15.8 % (11.5-15.5); WBC 9.6 k/uL (3.8-10.6)
[2020-08-23 09:54] LABS: HGB 9.1 gm/dL (13.0-17.5)
[2020-08-23 10:48] LABS: Appearance,Urine Cloudy (Clear); Bacteria,Urine Occasional /hpf; Bilirubin,Urine Negative (Negative); Blood,Urine Large (Negative); Calcium Oxalate Crystals,Urine Rare /hpf; Color,Urine Yellow; Glucose,Urine (UA) Negative (Negative); Ketones,Urine Negative (Negative); Leukocyte Esterase,Urine Moderate (Negative); Mucus,Urine Rare /hpf; Nitrite,Urine Positive (Negative); Protein,Urine 1+ (Negative); RBC,Urine >182 /hpf (0-5); Specific Gravity,Urine 1.024 (1.001-1.035); Urobilinogen,Urine <2.0 mg/dL (<2.0); WBC,Urine 126 /hpf (0-5)
--- NOTE | 2020-08-23 10:51 | XR ---
EXAMINATION TYPE: XR chest 1V portable DATE OF EXAM: 08/23/2020 COMPARISON: 06/14/2018 HISTORY: Wheezing TECHNIQUE: Single frontal view of the chest is obtained. FINDINGS: There is no focal air space opacity, pleural effusion, or pneumothorax seen. The cardiac silhouette size is within normal limits. There is marked osteophytic change of the glenohumeral joint s bilaterally otherwise the osseous structures are intact. There is hyperinflation of the lungs and f lattening the diaphragms consistent with COPD. IMPRESSION: COPD with no acute cardiopulmonary disease and no significant interval change the prior study 06/14/2018
--- NOTE | 2020-08-23 11:01 | P.PN ---
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 He was evaluated in the emergency room, vital examination on presentation revealed a temperature of 98.6 pulse 82 respiration 18 blood pressure 140/82 pulse ox 99% on room air, white blood count was 7.5 hemoglobin 11.2 platelet count 359 BUN 39 creatinine 0.97 coronavirus PCR was negative. Computed tomography scan of the head and the cervical spine did not reveal any acute abnormality, x-ray of the pelvis and the left hip revealed evidence of acute intertrochanteric fracture of the left femur, patient was admitted to medical floor, orthopedic consultation was requested. Patient has a known history of hypertension, hyperlipidemia, oox-igwghoe-thmbjvmya diabetes mellitus, severe peripheral vascular disease, benign prostatic hypertrophy, gastroesophageal reflux disease, depression, COPD, chronic pain syndrome, and continued tobacco use. On 08/23/2020 patient is alert and oriented 3. Patient had temperature 101.7 last night. Patient was evaluated I orthopedic services no plans for surgical intervention to left hip. Is recommending vascular consult for right ankle pain. Concerns of possible osteomyelitis due to comorbidities and elevated temperature. X-ray of right foot has been ordered and infectious disease consult placed. Will also order blood culture, chest x-ray and urinary analysis. At that time patient denies any chest pain or shortness of breath. Patient denies nausea vomiting or diarrhea. Patient denies any urinary burning or frequency Objective - Vital Signs Vital signs: Vital Signs Temp 98.5 F 08/23/20 01:17 Pulse 105 H 08/23/20 08:03 Resp 18 08/23/20 07:00 BP 166/68 08/23/20 01:17 Pulse Ox 95 08/23/20 07:50 Intake & Output 08/22/20 08/23/20 08/23/20 18:59 06:59 18:59 Intake Total 480 Output Total 1000 550 Balance -520 -550 Weight 49.895 kg Intake: Oral 480 Output: Urine 1000 550 Other: Voiding Method Indwelling Catheter Indwelling Catheter # Bowel Movements 0 - Exam In general patient is alert and oriented ?-3 in no distress HEENT head normocephalic and atraumatic Neck is supple no JVD no goiter no lymphadenopathy no carotid bruit Chest examination reveals a scattered crackles bilaterally no wheezing Cardiac exam reveals regular heart sounds S1 and S2 no gallops no murmurs Abdomen is soft nontender no organomegaly with normal bowel sounds Extremity exam reveals no edema no cyanosis or clubbing, patient had a high left aprtt-mvi-nycf amputation Neurological examination reveals no gross focal deficits - Labs CBC & Chem 7: 08/23/20 09:03 08/23/20 09:03 Labs: Abnormal Lab Results - Last 24 Hours (Table) 08/23/20 08/23/20 08/23/20 Range/Units 09:03 09:03 09:56 RBC 3.56 L (4.30-5.90) m/uL Hgb 9.1 L D (13.0-17.5) gm/dL Hct 30.0 L (39.0-53.0) % MCHC 30.2 L (31.0-37.0) g/dL RDW 15.8 H (11.5-15.5) % Neutrophils # 8.4 H (1.3-7.7) k/uL Lymphocytes # 0.5 L (1.0-4.8) k/uL BUN 31 H (9-20) mg/dL Glucose 183 H (74-99) mg/dL Total Protein 6.0 L (6.3-8.2) g/dL Albumin 3.2 L (3.5-5.0) g/dL Urine Protein 1+ H (Negative) Urine Blood Large H (Negative) Ur Leukocyte Esterase Moderate H (Negative) Urine RBC >182 H (0-5) /hpf Urine WBC 126 H (0-5) /hpf Urine WBC Clumps Occasional H (None) /hpf Calcium Oxalate Crystal Rare H (None) /hpf Urine Bacteria Occasional H (None) /hpf Urine Mucus Rare H (None) /hpf Assessment and Plan Plan: 1. intertrochanteric fracture of the left femur. patient was evaluated by orthopedic services no plans for surgical intervention. 2. Underlying history of hypertension 3. Underlying history of hyperlipidemia 4. Underlying history of peripheral vascular disease 5. Underlying history of gastroesophageal reflux disease 6. Underlying history of COPD 7. Underlying history of depression 8. Underlying history of chronic pain syndrome 9. febrile. chest xray, blood culture and u/a ordered 10. right ankle pain. x ray of foot ordered. Concerns of possible osteomyelitis infectious disease consulted. Vascular surgery consulted due to comorbidities 11. Anemia. Stool for occult blood ordered iron studies ordered. At this time home medications reviewed and reordered Pain management patient resumed on [place], and is given IV dye Dilaudid for breakthrough pain Orthopedics, infectious disease and vascular surgery consulted Patient started on Rocephin X-ray of right foot ordered Patient counseled again in regard to smoking cessation and given a nicotine patch Will recheck labs and follow-up in a.m.
--- NOTE | 2020-08-23 12:02 | XR ---
Right foot. HISTORY: Redness and pain. No trauma. COMPARISON: None. TECHNIQUE: 3 views the right foot were obtained. FINDINGS: The osseous structures are diffusely osteopenic. There is no fracture, dislocation, intraosseous or intra-articular abnormality. There is no cortical destruction or periosteal reaction. There is no radiopaque foreign body , abnormal soft tissue calcif ication or soft tissue gas. IMPRESSION: Osteopenia with no other significant abnormality seen.
--- NOTE | 2020-08-23 12:36 | P.GSCN ---
History of Present Illness Consult date: 08/23/20 Reason for Consult: History of peripheral arterial disease, right ankle Requesting physician: Fidencio Barrientos History of present illness: This is a pleasant 70-year-old male patient who presented to the emergency room with complaints left hip pain after sustaining a fall at home. He has a previous history of a left tpfgs-kod-ykoy amputation and was in his scooter chair that malfunctioned and he fell off his porch. Orthopedics is following case and stated patient is not a good surgical candidate and likely would not benefit from any surgery to his left femur fracture. He has a past medical history that includes a left snizj-wll-iicc amputation in February 2016, coronary artery disease and is status post cardiac cath with angioplasty and stent in July 2020, history of peripheral arterial disease, smoker of one pack per day for greater than 50 years, and COPD. Patient was complaining of right ankle pain, noted to have redness to the right ankle and vascular surgery was consulted for further evaluation. Patient states he has had pain to the ankle for the last 1-2 months, he has not been ambulatory. He denies any fevers or chills at home but was noted to have a max temp of 101.7 in the hospital. He does have a history of previous stenting to the left lower extremity states which was done at [facility]. He currently denies any chest pain, abdominal pain, nausea, or vomiting. Does state he has chronic shortness of breath due to his COPD. He does state there is pain to the medial and lateral aspect of his right ankle. Denies any pain down the right lower extremity or dorsal or plantar aspect of the foot. He is not following with a vascular surgeon. Review of Systems A 14 point review systems was completed and all pertinent positives and neg atives as stated in the HPI. 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 knee wound + FOR MRSA. History of high left above-knee amputation done approximately 2009. 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 left testicle removed. heart stent x1 Past Anesthesia/Blood Transfusion Reactions: No Reported Reaction Date of Last Stent Placement:: 2006 Past Psychological History: Depression Smoking Status: Current every day smoker Past Alcohol Use History: None Reported Additional Past Alcohol Use History / Comment(s): Patient is a smoker one and a half packs of cigarettes per day for 52 years. He smokes marijuana on a daily basis and has done so for many decades. He denies any alcohol use. He lives at home with his and there is one dog and 3 cats in the home. 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 He denies any service. Past Drug Use History: Marijuana Additional Drug Use History / Comment(s): medical marijuana card-uses daily- INSTRUCTED TO REFRAIN FROM USE AT LEAST 24 HRS PRIOR TO PROCEDURE - Past Family History Sister(s) Family Medical History: Cancer Additional Family Medical History / Comment(s): double mastectomy, still surviving Father Family Medical History: No Reported History Mother Family Medical History: No Reported History Additional Family Medical History / Comment(s): hypoglycemia Medications and Allergies Home Medications Medication Instructions Recorded Confirmed Type Aspirin 81 mg PO DAILY 01/14/14 08/21/20 History DULoxetine HCL [Cymbalta] 60 mg PO W/SUPPER 01/14/14 08/21/20 History lisinopriL [Prinivil] 20 mg PO DAILY 01/14/14 08/21/20 History metFORMIN HCL [Glucophage] 500 mg PO BID 01/14/14 08/21/20 History Escitalopram [Lexapro] 10 mg PO DAILY 06/13/18 08/21/20 History Pantoprazole Sodium [Protonix] 40 mg PO DAILY 06/13/18 08/21/20 History amLODIPine [Norvasc] 5 mg PO DAILY 06/13/18 08/21/20 History Gabapentin [Neurontin] 300 mg PO TID #9 cap 06/17/18 08/21/20 Rx Hydrocodone/Acetaminophen [Dellrose 1 tab PO Q6H PRN #12 tablet 06/17/18 08/21/20 Rx 10-325] fentaNYL 100MCG/HR PATCH 100 mcg TRANSDERM Q72H #1 patch 06/17/18 08/21/20 Rx [Duragesic 100MCG/HR] Albuterol Inhaler [Ventolin Hfa 2 puff INHALATION RT-QID PRN 07/16/20 08/21/20 History Inhaler] Cholecalciferol (Vitamin D3) 250 mcg PO VEE 07/16/20 08/21/20 History [Vitamin D3 (5000 Iu)] Enulose 10gm/15ml 20 gm PO Q48H PRN 07/16/20 08/21/20 History Multivitamins, Thera [Multivitamin 1 tab PO DAILY 07/16/20 08/21/20 History (formulary)] Atorvastatin [Lipitor] 80 mg PO DAILY #30 tab 07/20/20 08/21/20 Rx Clopidogrel [Plavix] 75 mg PO DAILY #30 tab 07/20/20 08/21/20 Rx Metoprolol Succinate (ER) [Toprol 25 mg PO DAILY #30 tab.er.24h 07/20/20 08/21/20 Rx XL] Nitroglycerin Sl Tabs [Nitrostat] 0.4 mg SUBLINGUAL Q5M PRN #30 tab 07/20/20 08/21/20 Rx Tamsulosin [Flomax] 0.4 mg PO PC-SUPPER #30 cap.er.24h 07/20/20 08/21/20 Rx Budesonide-Formot 160-4.5 Mcg 2 puff INHALATION RT-BID 08/21/20 08/21/20 History [Symbicort 160-4.5 Mcg Inhaler] Allergies Allergy/AdvReac Type Severity Reaction Status Date / Time azithromycin [From Zithromax] Allergy Rash/Hives Verified 08/21/20 20:12 Surgical - Exam Vital Signs Temp Pulse Resp BP Pulse Ox 98.6 F 82 18 140/82 99 08/21/20 19:17 08/21/20 19:17 08/21/20 19:17 08/21/20 19:17 08/21/20 19:17 General appearance: The patient is alert, oriented, appears in no acute distress. HET: Head is normocephalic and atraumatic. Neck: Supple without lymphadenopathy. Trachea midline. Heart: S1 S2. Regular rate and rhythm. Lungs: Diminished bilaterally, with expiratory wheezes noted. Abdomen: Soft, nontender, nondistended. Extremities: Left AKA stump. Right lower extremity without any swelling, palpable femoral and popliteal pulses. Biphasic posterior tibialis signal, no Doppler signal noted on dorsalis pedis. Ulcer on medial aspect of the right ankle, lateral aspect of ankle with redness. Good capillary refill to right lower extremity. Tenderness to palpation along the medial and lateral aspect of the right ankle. Neurological: No focal deficits. Strength and sensation are grossly intact. Results - Labs 08/23/20 09:03 08/23/20 09:03 Abnormal Lab Results - Last 24 Hours (Table) 08/23/20 08/23/20 08/23/20 Range/Units 09:03 09:03 09:56 RBC 3.56 L (4.30-5.90) m/uL Hgb 9.1 L D (13.0-17.5) gm/dL Hct 30.0 L (39.0-53.0) % MCHC 30.2 L (31.0-37.0) g/dL RDW 15.8 H (11.5-15.5) % Neutrophils # 8.4 H (1.3-7.7) k/uL Lymphocytes # 0.5 L (1.0-4.8) k/uL BUN 31 H (9-20) mg/dL Glucose 183 H (74-99) mg/dL Total Protein 6.0 L (6.3-8.2) g/dL Albumin 3.2 L (3.5-5.0) g/dL Urine Protein 1+ H (Negative) Urine Blood Large H (Negative) Ur Leukocyte Esterase Moderate H (Negative) Urine RBC >182 H (0-5) /hpf Urine WBC 126 H (0-5) /hpf Urine WBC Clumps Occasional H (None) /hpf Calcium Oxalate Crystal Rare H (None) /hpf Urine Bacteria Occasional H (None) /hpf Urine Mucus Rare H (None) /hpf Diabetes panel 08/23/20 Range/Units 09:03 Sodium 138 (137-145) mmol/L Potassium 3.9 (3.5-5.1) mmol/L Chloride 104 (98-107) mmol/L Carbon Dioxide 27 (22-30) mmol/L BUN 31 H (9-20) mg/dL Creatinine 0.77 (0.66-1.25) mg/dL Glucose 183 H (74-99) mg/dL Calcium 8.6 (8.4-10.2) mg/dL AST 58 (17-59) U/L ALT 31 (4-49) U/L Alkaline Phosphatase 54 (38-126) U/L Total Protein 6.0 L (6.3-8.2) g/dL Albumin 3.2 L (3.5-5.0) g/dL Calcium panel 08/23/20 Range/Units 09:03 Calcium 8.6 (8.4-10.2) mg/dL Albumin 3.2 L (3.5-5.0) g/dL Pituitary panel 08/23/20 Range/Units 09:03 Sodium 138 (137-145) mmol/L Potassium 3.9 (3.5-5.1) mmol/L Chloride 104 (98-107) mmol/L Carbon Dioxide 27 (22-30) mmol/L BUN 31 H (9-20) mg/dL Creatinine 0.77 (0.66-1.25) mg/dL Glucose 183 H (74-99) mg/dL Calcium 8.6 (8.4-10.2) mg/dL Adrenal panel 08/23/20 Range/Units 09:03 Sodium 138 (137-145) mmol/L Potassium 3.9 (3.5-5.1) mmol/L Chloride 104 (98-107) mmol/L Carbon Dioxide 27 (22-30) mmol/L BUN 31 H (9-20) mg/dL Creatinine 0.77 (0.66-1.25) mg/dL Glucose 183 H (74-99) mg/dL Calcium 8.6 (8.4-10.2) mg/dL Total Bilirubin 0.7 (0.2-1.3) mg/dL AST 58 (17-59) U/L ALT 31 (4-49) U/L Alkaline Phosphatase 54 (38-126) U/L Total Protein 6.0 L (6.3-8.2) g/dL Albumin 3.2 L (3.5-5.0) g/dL - Imaging Additional studies: X-ray of right foot shows osteopenia with no other significant abnormality seen. X-ray of hip left and AP pelvis impression: Acute intertrochanteric fracture left femur. Stents in the left iliac arteries. Assessment and Plan Assessment: 1. Right ankle pain 2. Acute intertrochanteric fracture left femur 3. History of peripheral arterial disease previous left iliac stenting 4. History of left khszt-hbx-wdkq amputation 5. History of COPD 6. Tobacco use, one pack per day greater than 50 years Plan: 1. Lower extremity arterial ultrasound study ordered and reviewed 2. Smoking cessation recommended 3. Continue pain management per orthopedic surgeon 4. Continue medical management per primary team 5. X-rays reviewed There are no indications for any acute vascular surgical intervention at this time. Patient will need further outpatient workup and close monitoring. Thank you for this consultation, we will sign off at this time The impression and plan of care has been dictated as directed. I performed a history and examination of this patient, discussed the same with the dictator. I agree with the dictator's note ,documented as a scribe. Any additional findings or plans will be noted.
[2020-08-23] MEDS: TAMSULOSIN 0.4 MG CAP.ER.24H PO SCH (16:01)
[2020-08-23 16:39] LABS: % Iron Saturation 3.23 (15.00-50.00); Folate, Serum >24.0 ng/mL; Iron 10 ug/dL (65-175); Total Iron Binding Capacity 310 ug/dL (228-460)
--- NOTE | 2020-08-23 22:36 | CONS ---
CONSULTATION DATE OF SERVICE: 08/23/2020 REASON FOR CONSULTATION: Fever and a question of septic arthritis. HISTORY OF PRESENT ILLNESS: The patient is a 70-year-old male with a past medical history significant for left above -knee amputation for possible necrotizing infection three days ago. Patient presented to the ER after the patient did have a fall in this patient who does have a motorized wheelchair, lost control and went over it and fell out of the chair and fell on his left hip on his full weight. The patient subsequently did have significant pain to the left hip area described to be throbbing, intensity almost 7 to 8/10 and no radiation. With these symptoms, the patient was brought in to the ER. On arrival to the ER, the patient was afebrile however he did spike a fever of 101.7 last night. The patient did have a normal white count with no left shift. His creatinine was normal. Liver enzymes are normal. [place] PCR was negative. The patient evaluation shows evidence of left hip intertrochanteric fracture for which the patient is being evaluated by Orthopedics and medical treatment has been recommended. With the patient spiking a fever, consultation for possible septic arthritis. The patient started on Rocephin. Infectious Disease was consulted for further management. The patient denies having any headache or URI symptoms. Denies any chest pain or shortness of breath. Occasional cough. No sputum production. No nausea, no vomiting. No abdominal pain. No diarrhea. REVIEW OF SYSTEMS: Positive points have been mentioned in HPI. Rest of systems are negative. MEDICAL HISTORY: Necrotic infection to the left leg requiring left above knee amputation, COPD, diabetes mellitus, hypertension, NV, osteoarthritis. PAST SURGICAL HISTORY: PTCA with stent, left above -knee amputation and surgical debridement of the left scrotal area. SOCIAL HISTORY: Current everyday smoker. Did admit to marijuana use. FAMILY HISTORY: Sister with history of breast cancer with double mastectomy. ALLERGIES: AZITHROMYCIN. MEDICATIONS: Include the patient is currently on Tylenol, [place], DuoNeb, Norvasc, Lipitor, Symbicort, Rocephin 1 g daily, Lexapro, Duragesic patch, Dilaudid, Zestril, Glucophage, Toprol-XL, Narcan, nicotine patch, Flomax. PHYSICAL EXAMINATION: Blood pressure is 166/58 with a pulse of 79, temperature 98.5. He is 95% on room air. General description is an elderly male lying in bed in no distress. No tachypnea or accessory muscles of respiration use. HEENT: Examination shows no pallor or scleral icterus. Oral mucous membrane is dry. NECK: Trachea central. No thyromegaly. LUNGS unlabored breathing. Clear to auscultation anteriorly. HEART S1, S2. Regular rate and rhythm. ABDOMEN: Soft, no tenderness. No guarding. No rigidity. EXTREMITIES: No edema of the feet. SKIN: No rash or mass palpable. Left AKA stump is currently healed. No evidence of cellulitis. Left hip area with no swelling. No redness. NEUROLOGICAL: Patient is awake and alert and oriented times three. Mood and affect normal. LABS: Hemoglobin is 11.1, white count 7.5. BUN of 39, creatinine 0.97. White count normal. Liver enzymes are normal. Urine did show moderate WBC. [place] PCR was negative. Chest x-ray report negative. DIAGNOSTIC IMPRESSION AND PLAN: Patient admitted to the hospital with fall with left hip intertrochanteric fracture. This patient subsequently did have an episode of fever, more likely related to the urinary tract infection. Clinically not behaving as septic arthritis. PLAN: 1. Rocephin 1 g daily to continue. 2. Gentle IV fluid. 3. We will follow on clinical condition and culture to further adjust medication if needed. Thank you for this consultation. We will follow this patient along with you. MMODL / IJN: [id number] /
[2020-08-24] MEDS: SODIUM CHLORIDE 0.9% 1,000 ML IV SCH ×2 (00:52→21:48)
[2020-08-24] MEDS: HYDROcodone/APAP 10-325MG 1 EACH TAB PO PRN ×4 (02:09→21:49)
[2020-08-24] MEDS: HYDROmorphone 1 MG/ML 1 ML SYRINGE IVP PRN ×2 (03:07→06:27)
[2020-08-24] MEDS: IPRATROPIUM-ALBUTEROL 3 ML NEB INHALATION PRN (08:05)
[2020-08-24] MEDS: SYMBICORT 160-4.5 MCG INHALER INHALATION SCH ×2 (08:06→20:53)
[2020-08-24 08:25] LABS: Glucose,Whole Blood 348 mg/dL (75-99)
[2020-08-24] MEDS: metFORMIN 500 MG TAB PO SCH ×2 (08:28→21:49)
[2020-08-24] MEDS: ATORVASTATIN 80 MG TAB PO SCH (08:28)
[2020-08-24] MEDS: lisinopriL 20 MG TAB PO SCH (08:29)
[2020-08-24] MEDS: amLODIPine 5 MG TAB PO SCH (08:29)
[2020-08-24] MEDS: NICOTINE 14MG/24HR PATCH TRANSDERM SCH (08:30)
[2020-08-24] MEDS: ESCITALOPRAM 10 MG TAB PO SCH (08:30)
[2020-08-24] MEDS: METOPROLOL SUCCINATE (ER) 25 MG TAB.ER.24H PO SCH (08:30)
--- NOTE | 2020-08-24 10:21 | P.PN ---
Subjective Progress Note Date: 08/24/20 Baldev Joyce, is a 70-year-old male who presented to [facility] emergency room after sustaining a fall and having severe pain in the left hip area, patient has a known history of above-knee 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 lower extremity he was trying to pivot to his wheelchair when he fell to the floor on his left hip. He was evaluated in the emergency room, vital examination on presentation revealed a temperature of 98.6 pulse 82 respiration 18 blood pressure 140/82 pulse ox 99% on room air, white blood count was 7.5 hemoglobin 11.2 platelet count 359 BUN 39 creatinine 0.97 coronavirus PCR was negative. Computed tomography scan of the head and the cervical spine did not reveal any acute abnormality, x-ray of the pelvis and the left hip revealed evidence of acute intertrochanteric fracture of the left femur, patient was admitted to medical floor, orthopedic consultation was requested. Patient has a known history of hypertension, hyperlipidemia, smj-uumyxyf-ebqdgvfcz diabetes mellitus, severe peripheral vascular disease, benign prostatic hypertrophy, gastroesophageal reflux disease, depression, COPD, chronic pain syndrome, and continued tobacco use. On 08/23/2020 patient is alert and oriented 3. Patient had temperature 101.7 last night. Patient was evaluated I orthopedic services no plans for surgical intervention to left hip. Is recommending vascular consult for right ankle pain. Concerns of possible osteomyelitis due to comorbidities and elevated temperature. X-ray of right foot has been ordered and infectious disease consult placed. Will also order blood culture, chest x-ray and urinary analysis. At that time patient denies any chest pain or shortness of breath. Patient denies nausea vomiting or diarrhea. Patient denies any urinary burning or frequency On 08/24/2020 Patient was seen and examined on the medical floor, he is alert and oriented x 3 in no distress, he denies any complaints there is no fever or chills no headache or dizziness no chest pain no shortness of breath no palpitation no cough no nausea or vomiting no abdominal pain no diarrhea no blood in the stools no burning with urination no frequency or urgency and no hematuria, there is no weakness or numbness in any of the extremities no change in vision speech or gait. No new episodes of fever, patient has evidence of urinary tract infection, he was started on IV Rocephin, pain is better controlled, awaiting vascular surgery and infectious disease recommendation, continue with current management at this time. Objective - Vital Signs Vital signs: Vital Signs Temp 98.5 F 08/24/20 01:58 Pulse 96 08/24/20 08:06 Resp 18 08/24/20 01:58 BP 152/63 08/24/20 01:58 Pulse Ox 96 08/24/20 01:58 Intake & Output 08/23/20 08/24/20 08/24/20 18:59 06:59 18:59 Output Total 700 375 Balance -700 -375 Weight 49.895 kg Output: Urine 700 375 Other: Voiding Method Indwelling Catheter Indwelling Catheter - Exam In general patient is alert and oriented ?-3 in no distress HEENT head normocephalic and atraumatic Neck is supple no JVD no goiter no lymphadenopathy no carotid bruit Chest examination reveals a scattered crackles bilaterally no wheezing Cardiac exam reveals regular heart sounds S1 and S2 no gallops no murmurs Abdomen is soft nontender no organomegaly with normal bowel sounds Extremity exam reveals no edema no cyanosis or clubbing, patient had a high left fxpgi-amg-vesk amputation Neurological examination reveals no gross focal deficits - Labs CBC & Chem 7: 08/23/20 09:03 08/23/20 09:03 Labs: Abnormal Lab Results - Last 24 Hours (Table) 08/23/20 08/23/20 08/23/20 Range/Units 09:03 09:03 09:03 RBC 3.56 L (4.30-5.90) m/uL Hgb 9.1 L D (13.0-17.5) gm/dL Hct 30.0 L (39.0-53.0) % MCHC 30.2 L (31.0-37.0) g/dL RDW 15.8 H (11.5-15.5) % Neutrophils # 8.4 H (1.3-7.7) k/uL Lymphocytes # 0.5 L (1.0-4.8) k/uL BUN 31 H (9-20) mg/dL Glucose 183 H (74-99) mg/dL POC Glucose (mg/dL) (75-99) mg/dL Iron 10 L (65-175) ug/dL % Saturation 3.23 L (15.00-50.00) Total Protein 6.0 L (6.3-8.2) g/dL Albumin 3.2 L (3.5-5.0) g/dL Urine Protein (Negative) Urine Blood (Negative) Ur Leukocyte Esterase (Negative) Urine RBC (0-5) /hpf Urine WBC (0-5) /hpf Urine WBC Clumps (None) /hpf Calcium Oxalate Crystal (None) /hpf Urine Bacteria (None) /hpf Urine Mucus (None) /hpf 08/23/20 08/24/20 Range/Units 09:56 08:22 RBC (4.30-5.90) m/uL Hgb (13.0-17.5) gm/dL Hct (39.0-53.0) % MCHC (31.0-37.0) g/dL RDW (11.5-15.5) % Neutrophils # (1.3-7.7) k/uL Lymphocytes # (1.0-4.8) k/uL BUN (9-20) mg/dL Glucose (74-99) mg/dL POC Glucose (mg/dL) 348 H (75-99) mg/dL Iron (65-175) ug/dL % Saturation (15.00-50.00) Total Protein (6.3-8.2) g/dL Albumin (3.5-5.0) g/dL Urine Protein 1+ H (Negative) Urine Blood Large H (Negative) Ur Leukocyte Esterase Moderate H (Negative) Urine RBC >182 H (0-5) /hpf Urine WBC 126 H (0-5) /hpf Urine WBC Clumps Occasional H (None) /hpf Calcium Oxalate Crystal Rare H (None) /hpf Urine Bacteria Occasional H (None) /hpf Urine Mucus Rare H (None) /hpf Assessment and Plan Plan: 1. intertrochanteric fracture of the left femur. patient was evaluated by orthopedic services no plans for surgical intervention. 2. Underlying history of hypertension 3. Underlying history of hyperlipidemia 4. Underlying history of peripheral vascular disease 5. Underlying history of gastroesophageal reflux disease 6. Underlying history of COPD 7. Underlying history of depression 8. Underlying history of chronic pain syndrome 9. febrile. chest xray, blood culture and u/a ordered 10. right ankle pain. x ray of foot ordered. Concerns of possible osteomyelitis infectious disease consulted. Vascular surgery consulted due to comorbidities 11. Anemia. Stool for occult blood ordered iron studies ordered. At this time home medications reviewed and reordered Pain management patient resumed on [place], and is given IV dye Dilaudid for breakthrough pain Orthopedics, infectious disease and vascular surgery consulted Patient started on Rocephin X-ray of right foot ordered Patient counseled again in regard to smoking cessation and given a nicotine patch Will recheck labs and follow-up in a.m.
[2020-08-24] MEDS: HYDROmorphone 0.5 MG/0.5 ML SYRINGE IVP PRN (10:57)
[2020-08-24 11:29] LABS: Basophils # (A) 0.03 X 10*3/uL (0.00-0.10); Basophils % (A) 0.3 %; Eosinophils # (A) 0.01 X 10*3/uL (0.04-0.35); Eosinophils % (A) 0.1 %; HCT 26.4 % (39.6-50.0); Lymphocytes # (A) 0.79 X 10*3/uL (0.90-5.00); Lymphocytes % (A) 7.5 %; MCH 25.7 pg (27.0-32.0); MCHC 30.3 g/dL (32.0-37.0); MCV 84.9 fL (80.0-97.0); Mean Platelet Volume 10.5 fL (9.5-12.2); Monocytes # (A) 0.99 X 10*3/uL (0.20-1.00); Monocytes % (A) 9.4 %; Neutrophils # (A) 8.68 X 10*3/uL (1.80-7.70); Neutrophils % (A) 82.4 %; Platelet Count 318 X 10*3/uL (140-440); RBC 3.11 X 10*6/uL (4.40-5.60); RDW 15.8 % (11.5-14.5); WBC 10.53 X 10*3/uL (4.50-10.00)
[2020-08-24 11:55] LABS: Glucose,Whole Blood 180 mg/dL (75-99)
[2020-08-24 11:57] LABS: African American GFR (CKD) 109.3 (60.0-200.0); Albumin 3.5 g/dL (3.80-4.90); Albumin/Globulin Ratio 1.52 (1.60-3.17); Anion Gap 5.8 mmol/L (4.00-12.00); BUN/Creat Ratio 42.86 Ratio (12.00-20.00); Calcium 8.4 mg/dL (8.7-10.3); Carbon Dioxide 28.2 mmol/L (21.6-31.8); Globulin 2.3 g/dL (1.6-3.3); Non-African American GFR(CKD) 94.3 (60.0-200.0); Total Bilirubin 0.6 mg/dL (0.3-1.2); Total Protein 5.8 g/dL (6.2-8.2)
[2020-08-24 16:27] LABS: Glucose,Whole Blood 148 mg/dL (75-99)
[2020-08-24] MEDS: TAMSULOSIN 0.4 MG CAP.ER.24H PO SCH (17:49)
--- NOTE | 2020-08-24 18:34 | PN ---
PROGRESS NOTE DATE OF SERVICE: 08/24/2020 REASON FOR FOLLOWUP: Fever, likely UTI. INTERVAL HISTORY: Patient is currently afebrile. Patient has some significant pain to the left hip area. Denies having any chest pain or shortness of breath or cough. No abdominal pain, no diarrhea. PHYSICAL EXAMINATION: Blood pressure 131/63, pulse of 96, temperature 98.1. He is 93% on room air. General description is an elderly male lying in bed in no distress. RESPIRATORY SYSTEM: Unlabored breathing, clear to auscultation anteriorly. HEART: S1, S2. Regular rate and rhythm. ABDOMEN: Soft, no tenderness. LAB: White count 10.5, BUN of 30, creatinine 0.7. Urine culture is pending. DIAGNOSTIC IMPRESSION AND PLAN: Patient with a fever, concern likely for a urinary tract infection with significant positive clinically, doubt septic arthritis. This patient did have a history of trauma with the left hip intertrochanteric fracture being treated conservatively. Patient to continue Rocephin while waiting for the culture to finalize. Continue supportive care. MMODL / IJN: [id number] /
[2020-08-24 20:20] LABS: Glucose,Whole Blood 162 mg/dL (75-99)
[2020-08-25] MEDS: HYDROmorphone 0.5 MG/0.5 ML SYRINGE IVP PRN ×4 (00:50→17:21)
[2020-08-25] MEDS ORDERED: PROCHLORPERAZINE 10 MG TAB PO PRN (05:45)
[2020-08-25 07:22] LABS: Glucose,Whole Blood 132 mg/dL (75-99)
[2020-08-25] MEDS: HYDROcodone/APAP 10-325MG 1 EACH TAB PO PRN ×3 (08:12→20:16)
[2020-08-25] MEDS: ATORVASTATIN 80 MG TAB PO SCH (08:13)
[2020-08-25] MEDS: amLODIPine 5 MG TAB PO SCH (08:13)
[2020-08-25] MEDS: metFORMIN 500 MG TAB PO SCH ×2 (08:13→20:17)
[2020-08-25] MEDS: lisinopriL 20 MG TAB PO SCH (08:13)
[2020-08-25] MEDS: ESCITALOPRAM 10 MG TAB PO SCH (08:13)
[2020-08-25] MEDS: NICOTINE 14MG/24HR PATCH TRANSDERM SCH (08:13)
[2020-08-25] MEDS: METOPROLOL SUCCINATE (ER) 25 MG TAB.ER.24H PO SCH (08:13)
[2020-08-25] MEDS: SYMBICORT 160-4.5 MCG INHALER INHALATION SCH ×2 (08:47→21:28)
[2020-08-25 09:36] LABS: Basophils % (A) 0 %; Eosinophils % (A) 0 %; HCT 27.2 % (39.0-53.0); HGB 8.1 gm/dL (13.0-17.5); Hypochromasia Marked; Lymphocytes # (A) 0.5 k/uL (1.0-4.8); Lymphocytes % (A) 6 %; MCH 25.4 pg (25.0-35.0); MCHC 29.9 g/dL (31.0-37.0); Mean Platelet Volume 7.9; Monocytes # (A) 0.5 k/uL (0-1.0); Monocytes % (A) 5 %; Neutrophils # (A) 8.3 k/uL (1.3-7.7); Neutrophils % (A) 88 %; Platelet Count 345 k/uL (150-450); RDW 15.7 % (11.5-15.5); WBC 9.4 k/uL (3.8-10.6)
[2020-08-25 09:43] LABS: ALT 38 U/L (4-49); AST 40 U/L (17-59); African American GFR (CKD) >90 (>60 ml/min/1.73 sqM); Albumin 2.9 g/dL (3.5-5.0); Albumin/Globulin Ratio 1.1; Alkaline Phosphatase 56 U/L (38-126); Anion Gap 3 mmol/L; Blood Urea Nitrogen 28 mg/dL (9-20); Calcium 8.5 mg/dL (8.4-10.2); Carbon Dioxide 28 mmol/L (22-30); Chloride 105 mmol/L (98-107); Globulin 2.6 g/dL; Glucose 149 mg/dL (74-99); Non-African American GFR(CKD) >90 (>60 ml/min/1.73 sqM); Potassium 4.4 mmol/L (3.5-5.1); Sodium 136 mmol/L (137-145); Total Bilirubin 0.6 mg/dL (0.2-1.3); Total Protein 5.5 g/dL (6.3-8.2)
--- NOTE | 2020-08-25 11:32 | P.PN ---
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 He was evaluated in the emergency room, vital examination on presentation revealed a temperature of 98.6 pulse 82 respiration 18 blood pressure 140/82 pulse ox 99% on room air, white blood count was 7.5 hemoglobin 11.2 platelet count 359 BUN 39 creatinine 0.97 coronavirus PCR was negative. Computed tomography scan of the head and the cervical spine did not reveal any acute abnormality, x-ray of the pelvis and the left hip revealed evidence of acute intertrochanteric fracture of the left femur, patient was admitted to medical floor, orthopedic consultation was requested. Patient has a known history of hypertension, hyperlipidemia, cvr-bsqgvpn-eosjmodhi diabetes mellitus, severe peripheral vascular disease, benign prostatic hypertrophy, gastroesophageal reflux disease, depression, COPD, chronic pain syndrome, and continued tobacco use. On 08/23/2020 patient is alert and oriented 3. Patient had temperature 101.7 last night. Patient was evaluated I orthopedic services no plans for surgical intervention to left hip. Is recommending vascular consult for right ankle pain. Concerns of possible osteomyelitis due to comorbidities and elevated temperature. X-ray of right foot has been ordered and infectious disease consult placed. Will also order blood culture, chest x-ray and urinary analysis. At that time patient denies any chest pain or shortness of breath. Patient denies nausea vomiting or diarrhea. Patient denies any urinary burning or frequency On 08/24/2020 Patient was seen and examined on the medical floor, he is alert and oriented x 3 in no distress, he denies any complaints there is no fever or chills no headache or dizziness no chest pain no shortness of breath no palpitation no cough no nausea or vomiting no abdominal pain no diarrhea no blood in the stools no burning with urination no frequency or urgency and no hematuria, there is no weakness or numbness in any of the extremities no change in vision speech or gait. No new episodes of fever, patient has evidence of urinary tract infection, he was started on IV Rocephin, pain is better controlled, awaiting vascular surgery and infectious disease recommendation, continue with current management at this time. 08/25/2020 patient alert and oriented 3 patient remains on IV Rocephin. Orders for arterial ultrasound of the lower extremities per vascular surgery at this t shahrzad patient denies any chest pain or shortness of breath. Patient denies nausea vomiting or diarrhea. Patient denies any urinary burning or frequency Objective - Vital Signs Vital signs: Vital Signs Temp 98.8 F 08/25/20 08:00 Pulse 96 08/25/20 08:00 Resp 16 08/25/20 08:00 BP 153/72 08/25/20 08:00 Pulse Ox 92 L 08/25/20 08:00 Intake & Output 08/24/20 08/25/20 08/25/20 18:59 06:59 18:59 Intake Total 240 Output Total 550 Balance 240 -550 Intake: Intake, IV Titration 240 Amount Sodium Chloride 0.9% 1, 240 000 ml @ 20 mls/hr IV . Q24H [facility] Rx#:[id number] Output: Urine 550 Other: Voiding Method Indwelling Catheter Indwelling Catheter Indwelling Catheter - Exam In general patient is alert and oriented ?-3 in no distress HEENT head normocephalic and atraumatic Neck is supple no JVD no goiter no lymphadenopathy no carotid bruit Chest examination reveals a scattered crackles bilaterally no wheezing Cardiac exam reveals regular heart sounds S1 and S2 no gallops no murmurs Abdomen is soft nontender no organomegaly with normal bowel sounds Extremity exam reveals no edema no cyanosis or clubbing, patient had a high left vhgjk-cji-[id number] amputation Neurological examination reveals no gross focal deficits - Labs CBC & Chem 7: 08/25/20 09:07 08/25/20 09:07 Labs: Abnormal Lab Results - Last 24 Hours (Table) 08/24/20 08/24/20 08/24/20 Range/Units 06:24 11:41 16:23 RBC (4.30-5.90) m/uL Hgb (13.0-17.5) gm/dL Hct (39.0-53.0) % MCHC (31.0-37.0) g/dL RDW (11.5-15.5) % Neutrophils # (1.3-7.7) k/uL Lymphocytes # (1.0-4.8) k/uL Sodium (137-145) mmol/L BUN 30.0 H (9.0-27.0) mg/dL BUN/Creatinine Ratio 42.86 H (12.00-20.00) Ratio Glucose 144 H (70-110) mg/dL POC Glucose (mg/dL) 180 H 148 H (75-99) mg/dL Calcium 8.4 L (8.7-10.3) mg/dL AST 38 H (14-35) U/L Total Protein 5.8 L (6.2-8.2) g/dL Albumin 3.50 L (3.80-4.90) g/dL Albumin/Globulin Ratio 1.52 L (1.60-3.17) g/dL 08/24/20 08/25/20 08/25/20 Range/Units 20:18 07:19 09:07 RBC 3.20 L (4.30-5.90) m/uL Hgb 8.1 L (13.0-17.5) gm/dL Hct 27.2 L (39.0-53.0) % MCHC 29.9 L (31.0-37.0) g/dL RDW 15.7 H (11.5-15.5) % Neutrophils # 8.3 H (1.3-7.7) k/uL Lymphocytes # 0.5 L (1.0-4.8) k/uL Sodium (137-145) mmol/L BUN (9.0-27.0) mg/dL BUN/Creatinine Ratio (12.00-20.00) Ratio Glucose (70-110) mg/dL POC Glucose (mg/dL) 162 H 132 H (75-99) mg/dL Calcium (8.7-10.3) mg/dL AST (14-35) U/L Total Protein (6.2-8.2) g/dL Albumin (3.80-4.90) g/dL Albumin/Globulin Ratio (1.60-3.17) g/dL 08/25/20 Range/Units 09:07 RBC (4.30-5.90) m/uL Hgb (13.0-17.5) gm/dL Hct (39.0-53.0) % MCHC (31.0-37.0) g/dL RDW (11.5-15.5) % Neutrophils # (1.3-7.7) k/uL Lymphocytes # (1.0-4.8) k/uL Sodium 136 L (137-145) mmol/L BUN 28 H (9.0-27.0) mg/dL BUN/Creatinine Ratio (12.00-20.00) Ratio Glucose 149 H (70-110) mg/dL POC Glucose (mg/dL) (75-99) mg/dL Calcium (8.7-10.3) mg/dL AST (14-35) U/L Total Protein 5.5 L (6.2-8.2) g/dL Albumin 2.9 L (3.80-4.90) g/dL Albumin/Globulin Ratio (1.60-3.17) g/dL Microbiology - Last 24 Hours (Table) 08/23/20 10:27 Blood Culture - Preliminary Blood No Growth after 24 hours Assessment and Plan Plan: 1. intertrochanteric fracture of the left femur. patient was evaluated by orthopedic services no plans for surgical intervention. 2. Underlying history of hypertension 3. Underlying history of hyperlipidemia 4. Underlying history of peripheral vascular disease 5. Underlying history of gastroesophageal reflux disease 6. Underlying history of COPD 7. Underlying history of depression 8. Underlying history of chronic pain syndrome 9. febrile. chest xray, blood culture and u/a ordered 10. right ankle pain. x ray of foot ordered. Concerns of possible osteomyelitis infectious disease consulted. Vascular surgery consulted due to comorbidities 11. Anemia. Stool for occult blood ordered iron studies ordered. At this time home medications reviewed and reordered Pain management patient resumed on [place], and is given IV dye Dilaudid for breakthrough pain Orthopedics, infectious disease and vascular surgery consulted Patient started on Rocephin Arterial ultrasound of lower extremity is ordered Patient counseled again in regard to smoking cessation and given a nicotine patch Will recheck labs and follow-up in a.m. PT OT and health social work professor consult for discharge planning
[2020-08-25 11:43] LABS: Glucose,Whole Blood 121 mg/dL (75-99)
[2020-08-25 16:12] LABS: Glucose,Whole Blood 120 mg/dL (75-99)
[2020-08-25] MEDS: TAMSULOSIN 0.4 MG CAP.ER.24H PO SCH (17:22)
--- NOTE | 2020-08-25 20:06 | PN ---
PROGRESS NOTE DATE OF SERVICE: 08/25/2020 REASON FOR FOLLOWUP: Fever and urinary tract infection. INTERVAL HISTORY: The patient is currently afebrile. Patient is breathing comfortably. The patient denies having any chest pain. No shortness of breath or cough. No abdominal pain. currently controlled. PHYSICAL EXAMINATION: VITAL SIGNS: Blood pressure 124/64, pulse of 86, temperature is 97.8, he is 96% on room air. GENERAL DESCRIPTION: An elderly male lying in bed in no distress. RESPIRATORY SYSTEM: Unlabored breathing, clear to auscultation anteriorly. HEART: S1, S2. Regular rate and rhythm. ABDOMEN: Soft, no tenderness. LABS: Hemoglobin 8.1, white count 9.4, creatinine 0.73. Blood culture negative. Urine culture is pending. DIAGNOSTIC IMPRESSION AND PLAN: Patient admitted to the hospital with fever in this patient admitted to the hospital after he did have a fall and left hip intertrochanteric fracture. Source of fever, likely UTI. The patient responded to Rocephin, to continue while waiting for the culture to finalize. Continue supportive care. MMODL / IJN: [id number] /
[2020-08-25 20:11] LABS: Glucose,Whole Blood 126 mg/dL (75-99)
[2020-08-25] MEDS: SODIUM CHLORIDE 0.9% 1,000 ML IV SCH (20:12)
[2020-08-26] MEDS: HYDROmorphone 1 MG/ML 1 ML SYRINGE IVP PRN ×6 (00:22→22:11)
[2020-08-26] MEDS: HYDROcodone/APAP 10-325MG 1 EACH TAB PO PRN ×4 (02:51→20:15)
[2020-08-26 06:47] LABS: Glucose,Whole Blood 118 mg/dL (75-99)
[2020-08-26] MEDS: METOPROLOL SUCCINATE (ER) 25 MG TAB.ER.24H PO SCH (08:02)
[2020-08-26] MEDS: NICOTINE 14MG/24HR PATCH TRANSDERM SCH (08:02)
[2020-08-26] MEDS: ATORVASTATIN 80 MG TAB PO SCH (08:02)
[2020-08-26] MEDS: amLODIPine 5 MG TAB PO SCH (08:02)
[2020-08-26] MEDS: metFORMIN 500 MG TAB PO SCH ×2 (08:02→20:15)
[2020-08-26] MEDS: lisinopriL 20 MG TAB PO SCH (08:02)
[2020-08-26] MEDS: ESCITALOPRAM 10 MG TAB PO SCH (08:03)
[2020-08-26] MEDS: SYMBICORT 160-4.5 MCG INHALER INHALATION SCH ×2 (08:11→19:13)
[2020-08-26 08:52] LABS: Basophils # (A) 0.03 X 10*3/uL (0.00-0.10); Basophils % (A) 0.4 %; Eosinophils # (A) 0.06 X 10*3/uL (0.04-0.35); Eosinophils % (A) 0.8 %; HCT 26.8 % (39.6-50.0); Lymphocytes # (A) 0.87 X 10*3/uL (0.90-5.00); Lymphocytes % (A) 11.5 %; MCH 25.3 pg (27.0-32.0); MCHC 29.9 g/dL (32.0-37.0); MCV 84.8 fL (80.0-97.0); Mean Platelet Volume 10.3 fL (9.5-12.2); Monocytes # (A) 0.53 X 10*3/uL (0.20-1.00); Neutrophils # (A) 6.03 X 10*3/uL (1.80-7.70); Neutrophils % (A) 79.9 %; Platelet Count 387 X 10*3/uL (140-440); RBC 3.16 X 10*6/uL (4.40-5.60); RDW 15.7 % (11.5-14.5); WBC 7.55 X 10*3/uL (4.50-10.00)
[2020-08-26 09:59] LABS: African American GFR (CKD) 116.4 (60.0-200.0); Albumin 3.3 g/dL (3.80-4.90); Albumin/Globulin Ratio 1.5 (1.60-3.17); Anion Gap 5.6 mmol/L (4.00-12.00); Calcium 8.1 mg/dL (8.7-10.3); Carbon Dioxide 27.4 mmol/L (21.6-31.8); Globulin 2.2 g/dL (1.6-3.3); Non-African American GFR(CKD) 100.4 (60.0-200.0); Potassium 4.2 mmol/L (3.5-5.5); Total Bilirubin 0.7 mg/dL (0.3-1.2); Total Protein 5.5 g/dL (6.2-8.2)
[2020-08-26 11:48] LABS: Glucose,Whole Blood 122 mg/dL (75-99)
--- NOTE | 2020-08-26 14:34 | CDI ---
Documentation Clarification Form Date: 08/26/2020 02:06:18 PM From: Tana Guerra RN CCDS Admit Date: 08/21/2020 08:52:00 PM Patient Name: Baldev Joyce Visit Number: [id number] Discharge Date: ATTENTION: The Clinical Documentation Specialists (CDI) and [facility] Coding Staff appreciate your assistance in clarifying documentation. Please respond to the clarification below the line at the bottom and electronically sign. The CDI & [facility] Coding staff will review the response and follow-up if needed. Please note: Queries are made part of the Legal Health Record. If you have any questions, please contact the author of this message via ITS. Dr. Fidencio Barrientos The Registered Dietitian assessment on 08/22 indicates this patient meets criteria for Chronic Severe Malnutrition. Based on this information and the findings below, is there an additional diagnosis that is clinically appropriate for this patient? History/Risk Factors: 70-year-old male presents to the ED after a fall from his wheelchair landing on his left hip. Admitted with a left IT fracture. Medical history: Non-Insulin dependent DM, COPD, HTN, Vascular disorder and left AKA. Clinical Indicators: RD Consult Assessment 08/22: Nutrition Intake: Fair; 50-75% percent consumed, NPO at this time. Patient is nauseous. Physical findings: Severe temporalis, pectoralis, buccal fat pad wasting. Anthropometrics: Weight 49.894 kg stated by patient. 6ft 3in BMI classification: Underweight. Calculated [place] body weight 85kg. Weight change decreased intake and nausea Kcal/Serving (Kcal) 260; Protein / servin. Nutritional diagnosis: Malnutrition chronic, severe. Current BMI: 13.7kg Treatment: Regular diet, Monitor po intake and supplement intake. Dietary Consult: See above Supplements: 08/22 [place] Breakfast TID. Lab monitoring: Blood glucose and Chemistry panel daily. Is there an additional diagnosis that is clinically appropriate for this patient? [ ] Severe Protein-Calorie Malnutrition [ ] Other condition, please specify [ ] Unable to Determine (Template Last Revised: June 2020) severe protein-calorie malnutrition MTDD
--- NOTE | 2020-08-26 16:10 | P.CONS ---
History of Present Illness - Reason for Consult Consult date: 08/26/20 Anemia Requesting physician: Fidencio Barrientos - Chief Complaint Left hip pain, fall - History of Present Illness This is a pleasant 70-year-old male patient who presented to the emergency room with complaints left hip pain after sustaining a fall at home. He has a previous history of a left dmxuo-zbi-ozdq amputation and was in his scooter chair that malfunctioned and he fell off his porch sustaining a left femur fracture. Orthopedics is following case and stated patient is not a good surgical candidate and likely would not benefit from any surgery to his left femur fracture. He has a past medical history that includes a left httpn-ffj-ncis amputation in February 2016, coronary artery disease and is status post cardiac cath with angioplasty and stent in July 2020, history of peripheral arterial disease, smoker of one pack per day for greater than 50 ye ars, and COPD. During this admission he had a hemoglobin of 10.4 with a slow drop over that past several days so gastroenterology was consulted for anemia. The patient denies any previous history of anemia or GI bleed. He states he had a upper and lower endoscopy approximately 15 years ago which she is states he believes was normal, he thinks the upper endoscopy was related to acid reflux. He also states he had a colonoscopy 5-6 years ago again stating it was normal. He denies any melena, abdominal pain, nausea, or vomiting. Previous to admission he was on Plavix for his recent stent, however he has not been on during his hospitalization. Today's labs show WBC 7.55, hemoglobin 8.0, he matocrit 26.8, platelets 387,000. Total bilirubin 0.7, alkaline phosphatase 58, AST 31, ALT 37. He denies currently any fever, chills, abdominal pain, nausea, or vomiting. States bowel movements are daily, brown. Review of Systems REVIEW OF SYSTEMS: CARDIOPULMONARY: No chest pain or shortness of breath. Gastrointestinal: No abdominal pain. No nausea or vomiting. No hematemesis, coffee-ground emesis. No rectal bleeding, or melena. GENITOURINARY: No dysuria or hematuria. MUSCULOSKELETAL: Left jqzsf-cvc-aovv amputation. SKIN: No rashes. No jaundice. ENDOCRINE: Unremarkable. PSYCHIATRIC: Unremarkable. NEUROLOGY: No change in mental status. Denies dizziness, headache. ENT: Vision unremarkable. CONSTITUTIONAL: No recent weight loss. No fever, chills, night sweats. 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 knee wound + FOR MRSA. History of high left above-knee amputation done approximately 2009. 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 left testicle removed. heart stent x1 Past Anesthesia/Blood Transfusion Reactions: No Reported Reaction Date of Last Stent Placement:: 2006 Past Psychological History: Depression Smoking Status: Current every day smoker Past Alcohol Use History: None Reported Additional Past Alcohol Use History / Comment(s): Patient is a smoker one and a half packs of cigarettes per day for 52 years. He smokes marijuana on a daily basis and has done so for many decades. He denies any alcohol use. He lives at home with his and there is one dog and 3 cats in the home. 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 He denies any service. Past Drug Use History: Marijuana Additional Drug Use History / Comment(s): medical marijuana card-uses daily- INSTRUCTED TO REFRAIN FROM USE AT LEAST 24 HRS PRIOR TO PROCEDURE - Past Family History Sister(s) Family Medical History: Cancer Additional Family Medical History / Comment(s): double mastectomy, still surviving Father Family Medical History: No Reported History Mother Family Medical History: No Reported History Additional Family Medical History / Comment(s): hypoglycemia Medications and Allergies Home Medications Medication Instructions Recorded Confirmed Type Aspirin 81 mg PO DAILY 01/14/14 08/21/20 History DULoxetine HCL [Cymbalta] 60 mg PO W/SUPPER 01/14/14 08/21/20 History lisinopriL [Prinivil] 20 mg PO DAILY 01/14/14 08/21/20 History metFORMIN HCL [Glucophage] 500 mg PO BID 01/14/14 08/21/20 History Escitalopram [Lexapro] 10 mg PO DAILY 06/13/18 08/21/20 History Pantoprazole Sodium [Protonix] 40 mg PO DAILY 06/13/18 08/21/20 History amLODIPine [Norvasc] 5 mg PO DAILY 06/13/18 08/21/20 History Gabapentin [Neurontin] 300 mg PO TID #9 cap 06/17/18 08/21/20 Rx Hydrocodone/Acetaminophen [[place] 1 tab PO Q6H PRN #12 tablet 06/17/18 08/21/20 Rx 10-325] fentaNYL 100MCG/HR PATCH 100 mcg TRANSDERM Q72H #1 patch 06/17/18 08/21/20 Rx [Duragesic 100MCG/HR] Albuterol Inhaler [Ventolin Hfa 2 puff INHALATION RT-QID PRN 07/16/20 08/21/20 History Inhaler] Cholecalciferol (Vitamin D3) 250 mcg PO VEE 07/16/20 08/21/20 History [Vitamin D3 (5000 Iu)] Enulose 10gm/15ml 20 gm PO Q48H PRN 07/16/20 08/21/20 History Multivitamins, Thera [Multivitamin 1 tab PO DAILY 07/16/20 08/21/20 History (formulary)] Atorvastatin [Lipitor] 80 mg PO DAILY #30 tab 07/20/20 08/21/20 Rx Clopidogrel [Plavix] 75 mg PO DAILY #30 tab 07/20/20 08/21/20 Rx Metoprolol Succinate (ER) [Toprol 25 mg PO DAILY #30 tab.er.24h 07/20/20 08/21/20 Rx XL] Nitroglycerin Sl Tabs [Nitrostat] 0.4 mg SUBLINGUAL Q5M PRN #30 tab 07/20/20 08/21/20 Rx Tamsulosin [Flomax] 0.4 mg PO PC-SUPPER #30 cap.er.24h 07/20/20 08/21/20 Rx Budesonide-Formot 160-4.5 Mcg 2 puff INHALATION RT-BID 08/21/20 08/21/20 History [Symbicort 160-4.5 Mcg Inhaler] Allergies Allergy/AdvReac Type Severity Reaction Status Date / Time azithromycin [From Zithromax] Allergy Rash/Hives Verified 08/21/20 20:12 Physical Exam Vitals: Vital Signs Temp Pulse Resp BP Pulse Ox 08/26/20 14:00 98.4 F 54 L 17 131/62 90 L 08/26/20 07:20 99.5 F 85 18 154/75 92 L 08/26/20 01:02 97.9 F 105 H 14 137/68 92 L 08/25/20 19:05 98.0 F 84 16 130/62 93 L Intake and Output 08/26/20 08/26/20 08/26/20 06:59 14:59 22:59 Output Total 500 Balance -500 Output: Urine 500 General appearance: The patient is alert, oriented, appears in no acute distress. HET: Head is normocephalic and atraumatic. Pupils are equal and reactive. Oropharynx is clear without lesions. Neck: Supple without lymphadenopathy. Trachea midline. Heart: S1 S2. Regular rate and rhythm. Lungs: Diminished. Abdomen: Soft, nontender, nondistended with bowel sounds. No guarding or rigidity. Extremities: Left bpgln-gtf-jnrt amputation. Right lower extremity with no pedal edema. Neurological: No focal deficits. Alert and oriented 3. Results CBC & Chem 7: 08/26/20 06:06 08/26/20 06:06 Labs: Abnormal Lab Results - Last 24 Hours (Table) 08/25/20 08/25/20 08/26/20 Range/Units 16:09 20:09 06:06 RBC 3.16 L (4.40-5.60) X 10*6/uL Hgb 8.0 L (13.0-17.0) g/dL Hct 26.8 L (39.6-50.0) % MCH 25.3 L (27.0-32.0) pg MCHC 29.9 L (32.0-37.0) g/dL RDW 15.7 H (11.5-14.5) % Lymphocytes # 0.87 L (0.90-5.00) X 10*3/uL BUN/Creatinine Ratio (12.00-20.00) Ratio Glucose (70-110) mg/dL POC Glucose (mg/dL) 120 H 126 H (75-99) mg/dL Calcium (8.7-10.3) mg/dL Total Protein (6.2-8.2) g/dL Albumin (3.80-4.90) g/dL Albumin/Globulin Ratio (1.60-3.17) g/dL 08/26/20 08/26/20 08/26/20 Range/Units 06:06 06:43 11:46 RBC (4.40-5.60) X 10*6/uL Hgb (13.0-17.0) g/dL Hct (39.6-50.0) % MCH (27.0-32.0) pg MCHC (32.0-37.0) g/dL RDW (11.5-14.5) % Lymphocytes # (0.90-5.00) X 10*3/uL BUN/Creatinine Ratio 40.00 H (12.00-20.00) Ratio Glucose 113 H (70-110) mg/dL POC Glucose (mg/dL) 118 H 122 H (75-99) mg/dL Calcium 8.1 L (8.7-10.3) mg/dL Total Protein 5.5 L (6.2-8.2) g/dL Albumin 3.30 L (3.80-4.90) g/dL Albumin/Globulin Ratio 1.50 L (1.60-3.17) g/dL Microbiology - Last 24 Hours (Table) 08/23/20 10:27 Blood Culture - Preliminary Blood No Growth after 72 hours Assessment and Plan (1) Anemia Narrative/Plan: 70-year-old white male who presented to the hospital after sustaining a fall and a left hip fracture. During his hospitalization he was noted to have a decline in his hemoglobin, initial hemoglobin was 10.4 with a progressive drop to 8.0. This is a patient without any signs or symptoms of a GI bleed. He has a remote history approximately 15 years ago of an EGD and colonoscopy for which he believes was normal. Also states he had a colonoscopy about 5-6 years ago which she states was normal. He'll has no previous history of anemia. He does have a history of coronary artery disease and peripheral arterial disease for which she is taking aspirin and Plavix, however that has been held since his admission with his last dose being 07/22/2020. Iron studies and anemia panel ordered for further evaluation. No plans for endoscopic evaluation at this time unless further drop in hemoglobin or signs of GI bleed. Current Visit: Yes Status: Acute Code(s): D64.9 - ANEMIA, UNSPECIFIED SNOMED Code(s): 514288752 Plan: Continue symptomatic and supportive care Agree with iron studies and anemia panel Stool Hemoccult ordered Continue to hold Plavix at this time Continue diet as tolerated Daily CBC transfuse for hemoglobin less than 7 No plans for endoscopic evaluation at this time, will await iron studies and anemia panel. Can reevaluate if further drop in hemoglobin or signs and symptoms of GI bleed V/Q for this consultation, we will continue to follow
[2020-08-26 16:59] LABS: Glucose,Whole Blood 256 mg/dL (75-99)
[2020-08-26] MEDS: TAMSULOSIN 0.4 MG CAP.ER.24H PO SCH (17:23)
[2020-08-26] MEDS: SODIUM CHLORIDE 0.9% 1,000 ML IV SCH (20:16)
[2020-08-26 20:58] LABS: Glucose,Whole Blood 175 mg/dL (75-99)
--- NOTE | 2020-08-26 23:18 | PN ---
PROGRESS NOTE DATE OF SERVICE: 08/26/2020 REASON FOR FOLLOWUP: Fever/UTI. INTERVAL HISTORY: The patient is currently afebrile. The patient is breathing comfortably. The patient denies having any chest pain or shortness of breath or cough. Pain to the left hip is currently controlled. No nausea, no vomiting and no diarrhea. PHYSICAL EXAMINATION: Blood pressure 114/57, pulse of 75, temperature 98.8. He is 93% on room air. General description is an elderly male lying in bed in no distress. RESPIRATORY SYSTEM: Unlabored breathing. Clear to auscultation anteriorly. HEART: S1, S2. Regular rate and rhythm. ABDOMEN: Soft. No tenderness. LABS: Hemoglobin is 8 with a white count of 7.5 and BUN of 24, creatinine 0.6. DIAGNOSTIC IMPRESSION AND PLAN: Patient with a fever. Source likely urinary tract infection. Patient is clinically responding to the Rocephin; to continue. Unfortunately urine cultures were not done. Will switch him over to a short course of oral antibiotic on discharge. Continue with supportive care. MMODL / IJN: [id number] /
[2020-08-27] MEDS: HYDROcodone/APAP 10-325MG 1 EACH TAB PO PRN ×4 (03:44→19:52)
[2020-08-27 03:54] LABS: % Iron Saturation 4.8 (15.00-50.00); Folate, Serum 20.6 ng/mL
[2020-08-27 06:43] LABS: Glucose,Whole Blood 155 mg/dL (75-99)
[2020-08-27] MEDS: HYDROmorphone 1 MG/ML 1 ML SYRINGE IVP PRN (06:59)
[2020-08-27] MEDS: METOPROLOL SUCCINATE (ER) 25 MG TAB.ER.24H PO SCH (08:31)
[2020-08-27] MEDS: ATORVASTATIN 80 MG TAB PO SCH (08:32)
[2020-08-27] MEDS: lisinopriL 20 MG TAB PO SCH (08:32)
[2020-08-27] MEDS: metFORMIN 500 MG TAB PO SCH ×2 (08:32→19:52)
[2020-08-27] MEDS: amLODIPine 5 MG TAB PO SCH (08:32)
[2020-08-27] MEDS: NICOTINE 14MG/24HR PATCH TRANSDERM SCH (08:32)
[2020-08-27] MEDS: ESCITALOPRAM 10 MG TAB PO SCH (08:39)
[2020-08-27] MEDS: SYMBICORT 160-4.5 MCG INHALER INHALATION SCH ×2 (08:49→21:24)
--- NOTE | 2020-08-27 10:03 | P.PN ---
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 He was evaluated in the emergency room, vital examination on presentation revealed a temperature of 98.6 pulse 82 respiration 18 blood pressure 140/82 pulse ox 99% on room air, white blood count was 7.5 hemoglobin 11.2 platelet count 359 BUN 39 creatinine 0.97 coronavirus PCR was negative. Computed tomography scan of the head and the cervical spine did not reveal any acute abnormality, x-ray of the pelvis and the left hip revealed evidence of acute intertrochanteric fracture of the left femur, patient was admitted to medical floor, orthopedic consultation was requested. Patient has a known history of hypertension, hyperlipidemia, ixv-yefqqik-lzcukckeo diabetes mellitus, severe peripheral vascular disease, benign prostatic hypertrophy, gastroesophageal reflux disease, depression, COPD, chronic pain syndrome, and continued tobacco use. On 08/23/2020 patient is alert and oriented 3. Patient had temperature 101.7 last night. Patient was evaluated I orthopedic services no plans for surgical intervention to left hip. Is recommending vascular consult for right ankle pain. Concerns of possible osteomyelitis due to comorbidities and elevated temperature. X-ray of right foot has been ordered and infectious disease consult placed. Will also order blood culture, chest x-ray and urinary analysis. At that time patient denies any chest pain or shortness of breath. Patient denies nausea vomiting or diarrhea. Patient denies any urinary burning or frequency On 08/24/2020 Patient was seen and examined on the medical floor, he is alert and oriented x 3 in no distress, he denies any complaints there is no fever or chills no headache or dizziness no chest pain no shortness of breath no palpitation no cough no nausea or vomiting no abdominal pain no diarrhea no blood in the stools no burning with urination no frequency or urgency and no hematuria, there is no weakness or numbness in any of the extremities no change in vision speech or gait. No new episodes of fever, patient has evidence of urinary tract infection, he was started on IV Rocephin, pain is better controlled, awaiting vascular surgery and infectious disease recommendation, continue with current management at this time. 08/25/2020 patient alert and oriented 3 patient remains on IV Rocephin. Orders for arterial ultrasound of the lower extremities per vascular surgery at this t shahrzad patient denies any chest pain or shortness of breath. Patient denies nausea vomiting or diarrhea. Patient denies any urinary burning or frequency On 08/26/2020atient was seen and examined on the medical floor, he is alert and oriented x 3 in no distress, he denies any complaints there is no fever or chills no headache or dizziness no chest pain no shortness of breath no palpitation no cough no nausea or vomiting no abdominal pain no diarrhea no blood in the stools no burning with urination no frequency or urgency and no hematuria, there is no weakness or numbness in any of the extremities no change in vision speech or gait., Pain is better controlled at this time tomorrow will increase dose of fentanyl patch and discontinue IV dilaudid. If pain remains well controlled, possible discharge to home on Wednesday, patient is refusing to go to any rehab center. Objective - Vital Signs Vital signs: Vital Signs Temp 99.0 F 08/27/20 07:24 Pulse 61 08/27/20 07:24 Resp 17 08/27/20 07:24 BP 132/52 08/27/20 07:24 Pulse Ox 90 L 08/27/20 07:24 Intake & Output 08/26/20 08/27/20 08/27/20 18:59 06:59 18:59 Output Total 420 600 Balance -420 -600 Output: Urine 420 600 Other: Voiding Method Indwelling Catheter - Exam In general patient is alert and oriented ?-3 in no distress HEENT head normocephalic and atraumatic Neck is supple no JVD no goiter no lymphadenopathy no carotid bruit Chest examination reveals a scattered crackles bilaterally no wheezing Cardiac exam reveals regular heart sounds S1 and S2 no gallops no murmurs Abdomen is soft nontender no organomegaly with normal bowel sounds Extremity exam reveals no edema no cyanosis or clubbing, patient had a high left qzaac-hvs-ofbn amputation Neurological examination reveals no gross focal deficits - Labs CBC & Chem 7: 08/26/20 06:06 08/26/20 06:06 Labs: Abnormal Lab Results - Last 24 Hours (Table) 08/26/20 08/26/2008/26/21 Range/Units 06:06 11:46 16:57 POC Glucose (mg/dL) 122 H 256 H (75-99) mg/dL Iron 13 L (65-175) ug/dL % Saturation 4.80 L (15.00-50.00) 08/26/20 08/27/20 Range/Units 20:57 06:42 POC Glucose (mg/dL) 175 H 155 H (75-99) mg/dL Iron (65-175) ug/dL % Saturation (15.00-50.00) Microbiology - Last 24 Hours (Table) 08/23/20 10:27 Blood Culture - Preliminary Blood No Growth after 72 hours Assessment and Plan Plan: 1. intertrochanteric fracture of the left femur. patient was evaluated by orthopedic services no plans for surgical intervention. 2. Underlying history of hypertension 3. Underlying history of hyperlipidemia 4. Underlying history of peripheral vascular disease 5. Underlying history of gastroesophageal reflux disease 6. Underlying history of COPD 7. Underlying history of depression 8. Underlying history of chronic pain syndrome 9. febrile. chest xray, blood culture and u/a ordered 10. right ankle pain. x ray of foot ordered. Concerns of possible osteomyelitis infectious disease consulted. Vascular surgery consulted due to comorbidities 11. Anemia. Stool for occult blood ordered iron studies ordered. At this time home medications reviewed and reordered Pain management patient resumed on [place], and is given IV dye Dilaudid for breakthrough pain Orthopedics, infectious disease and vascular surgery consulted Patient started on Rocephin Arterial ultrasound of lower extremity is ordered Patient counseled again in regard to smoking cessation and given a nicotine patch Will recheck labs and follow-up in a.m. PT OT and social work instructor consult for discharge planning
--- NOTE | 2020-08-27 10:17 | P.PN ---
Subjective Progress Note Date: 08/27/20 Principal diagnosis: Anemia Patient is seen and examined lying in bed. He is without any acute changes through the night. Today's labs are pending. He continues to deny any abd ominal pain, nausea, vomiting, hematemesis or melena. Occult stool has not been collected. Iron 13, TIBC 271, percent saturation 4.8, B12 711, folate 20.6, ferritin pending as well as CBC pending this morning. Objective - Vital Signs Vital signs: Vital Signs Temp 99.0 F 08/27/20 07:24 Pulse 61 08/27/20 07:24 Resp 17 08/27/20 07:24 BP 132/52 08/27/20 07:24 Pulse Ox 90 L 08/27/20 07:24 Intake & Output 08/26/20 08/27/20 08/27/20 18:59 06:59 18:59 Output Total 420 600 Balance -420 -600 Output: Urine 420 600 Other: Voiding Method Indwelling Catheter - Exam General appearance: The patient is alert, oriented, appears in no acute distress. HET: Head is normocephalic and atraumatic. Conjunctiva pink. Sclera anicteric. Neck: Supple without lymphadenopathy. Abdomen: Soft, nontender, nondistended with bowel sounds. No guarding or rigidity. Extremities: Normal skin color and turgor. Left azfzb-szq-ynud amputation. No pedal edema right lower extremity. Skin: No rashes, no jaundice Neurological: No focal deficits. Alert and oriented 3. - Labs CBC & Chem 7: 08/26/20 06:06 08/26/20 06:06 Labs: Abnormal Lab Results - Last 24 Hours (Table) 08/26/20 08/26/20 08/26/20 Range/Units 06:06 06:06 11:46 BUN/Creatinine Ratio 40.00 H (12.00-20.00) Ratio Glucose 113 H (70-110) mg/dL POC Glucose (mg/dL) 122 H (75-99) mg/dL Calcium 8.1 L (8.7-10.3) mg/dL Iron 13 L (65-175) ug/dL % Saturation 4.80 L (15.00-50.00) Total Protein 5.5 L (6.2-8.2) g/dL Albumin 3.30 L (3.80-4.90) g/dL Albumin/Globulin Ratio 1.50 L (1.60-3.17) g/dL 08/26/20 08/26/20 08/27/20 Range/Units 16:57 20:57 06:42 BUN/Creatinine Ratio (12.00-20.00) Ratio Glucose (70-110) mg/dL POC Glucose (mg/dL) 256 H 175 H 155 H (75-99) mg/dL Calcium (8.7-10.3) mg/dL Iron (65-175) ug/dL % Saturation (15.00-50.00) Total Protein (6.2-8.2) g/dL Albumin (3.80-4.90) g/dL Albumin/Globulin Ratio (1.60-3.17) g/dL Microbiology - Last 24 Hours (Table) 08/23/20 10:27 Blood Culture - Preliminary Blood No Growth after 72 hours Assessment and Plan (1) Anemia Narrative/Plan: 70-year-old white male who presented to the hospital after sustaining a fall and a left hip fracture. During his hospitalization he was noted to have a decline in his hemoglobin, initial hemoglobin was 10.4 with a progressive drop to 8.0. This is a patient without any signs or symptoms of a GI bleed. He has a remote history approximately 15 years ago of an EGD and colonoscopy for which he believes was normal. Also states he had a colonoscopy about 5-6 years ago which she states was normal. He'll has no previous history of anemia. He does have a history of coronary artery disease and peripheral arterial disease for which she is taking aspirin and Plavix, however that has been held since his admission with his last dose being 07/22/2020. Iron studies and anemia panel ordered for further evaluation. No plans for endoscopic evaluation at this time unless further drop in hemoglobin or signs of GI bleed. Current Visit: Yes Status: Acute Code(s): D64.9 - ANEMIA, UNSPECIFIED SNOMED Code(s): 492850068 Plan: Continue symptomatic and supportive care Iron studies and anemia panel ordered and reviewed We'll order IV iron replacement Stool Hemoccult ordered, uncollected Continue to hold Plavix at this time Continue diet as tolerated Daily CBC transfuse for hemoglobin less than 7 No plans for endoscopic evaluation at this time, will await iron studies and anemia panel. Can reevaluate if further drop in hemoglobin or signs and symptoms of GI bleed Thank you for this consultation, we will continue to follow Dr. Ford I agree with the dictator's note, documented as a scribe by Kaylyn Rodriguez.
[2020-08-27 11:13] LABS: Basophils # (A) 0.04 X 10*3/uL (0.00-0.10); Basophils % (A) 0.5 %; Eosinophils # (A) 0.12 X 10*3/uL (0.04-0.35); Eosinophils % (A) 1.4 %; HCT 28.3 % (39.6-50.0); HGB 8.4 g/dL (13.0-17.0); Lymphocytes # (A) 0.83 X 10*3/uL (0.90-5.00); Lymphocytes % (A) 9.5 %; MCH 25.4 pg (27.0-32.0); MCHC 29.7 g/dL (32.0-37.0); MCV 85.5 fL (80.0-97.0); Mean Platelet Volume 10.5 fL (9.5-12.2); Monocytes # (A) 0.53 X 10*3/uL (0.20-1.00); Neutrophils # (A) 7.21 X 10*3/uL (1.80-7.70); Neutrophils % (A) 82.1 %; Platelet Count 435 X 10*3/uL (140-440); RBC 3.31 X 10*6/uL (4.40-5.60); RDW 15.7 % (11.5-14.5); WBC 8.77 X 10*3/uL (4.50-10.00)
[2020-08-27 11:53] LABS: Glucose,Whole Blood 110 mg/dL (75-99)
[2020-08-27 12:30] LABS: African American GFR (CKD) 116.4 (60.0-200.0); Albumin 3.4 g/dL (3.80-4.90); Albumin/Globulin Ratio 1.62 (1.60-3.17); Anion Gap 6.7 mmol/L (4.00-12.00); Calcium 8.2 mg/dL (8.7-10.3); Carbon Dioxide 26.3 mmol/L (21.6-31.8); Globulin 2.1 g/dL (1.6-3.3); Non-African American GFR(CKD) 100.4 (60.0-200.0); Potassium 4.4 mmol/L (3.5-5.5); Total Bilirubin 0.7 mg/dL (0.3-1.2); Total Protein 5.5 g/dL (6.2-8.2)
[2020-08-27] MEDS: SODIUM FERRIC GLUCONAT-SUCROSE 125 MG in SODIUM CHLORIDE 0.9% 100 ML IVPB SCH (15:38)
[2020-08-27 16:52] LABS: Glucose,Whole Blood 142 mg/dL (75-99)
[2020-08-27] MEDS: TAMSULOSIN 0.4 MG CAP.ER.24H PO SCH (16:56)
[2020-08-27] MEDS: ONDANSETRON 4 MG/2 ML VIAL IVP PRN (19:52)
[2020-08-27 19:56] LABS: Glucose,Whole Blood 166 mg/dL (75-99)
--- NOTE | 2020-08-27 20:48 | PN ---
PROGRESS NOTE DATE OF SERVICE: 08/27/2020 REASON FOR FOLLOWUP: Fever and UTI. INTERVAL HISTORY: The patient is afebrile, has been breathing comfortably. The patient denies having any chest pain, shortness of breath or cough. No abdominal pain. Pain to the left hip is currently controlled. PHYSICAL EXAMINATION: Blood pressure is 143/56, pulse 85, temperature 98.3. He is 92% on room air. General description is an elderly male lying in bed in no distress. RESPIRATORY SYSTEM: Unlabored breathing. Clear to auscultation anteriorly. HEART: S1, S2. Regular rate and rhythm. ABDOMEN: Soft. No tenderness. LABS: Hemoglobin 8.4, white count 8.77, BUN of 21, creatinine 0.6. DIAGNOSTIC IMPRESSION AND PLAN: Patient with a fever, source likely urinary tract infection. Overall improvement on Rocephin; to continue while inpatient and transition to oral antibiotic on discharge. Continue with supportive care. MMODL / IJN: [id number] /
[2020-08-27] MEDS: SODIUM CHLORIDE 0.9% 1,000 ML IV SCH (21:20)
[2020-08-28] MEDS: HYDROcodone/APAP 10-325MG 1 EACH TAB PO PRN ×4 (02:40→19:24)
[2020-08-28 07:01] LABS: Glucose,Whole Blood 116 mg/dL (75-99)
[2020-08-28] MEDS: SYMBICORT 160-4.5 MCG INHALER INHALATION SCH ×2 (08:45→20:50)
[2020-08-28] MEDS: METOPROLOL SUCCINATE (ER) 25 MG TAB.ER.24H PO SCH (08:48)
[2020-08-28] MEDS: lisinopriL 20 MG TAB PO SCH (08:48)
[2020-08-28] MEDS: ATORVASTATIN 80 MG TAB PO SCH (08:48)
[2020-08-28] MEDS: metFORMIN 500 MG TAB PO SCH ×2 (08:48→19:24)
[2020-08-28] MEDS: ESCITALOPRAM 10 MG TAB PO SCH (08:48)
[2020-08-28] MEDS: NICOTINE 14MG/24HR PATCH TRANSDERM SCH (08:48)
[2020-08-28] MEDS: amLODIPine 5 MG TAB PO SCH (08:48)
[2020-08-28] MEDS: SODIUM FERRIC GLUCONAT-SUCROSE 125 MG in SODIUM CHLORIDE 0.9% 100 ML IVPB SCH (08:52)
--- NOTE | 2020-08-28 09:54 | P.ARTDOP ---
Arterial Doppler LOWER EXTREMITY ARTERIAL DOPPLER: DATE OF SERVICE: 08/23/2020 Reason for study: Known vascular disease. Doppler waveforms: Atypical throughout on the left. Digital waveform severely blunted.. Pulse volume recording: []. Pressure gradients: Above the low thigh. Ankle-brachial indices: 0.66. Toe brachial indices: [] on the right, [] on the left Impression: Status post left leg amputation. Moderate right fem-pop disease. Cannot rule out iliac component. Clinical correlation recommended.
[2020-08-28 09:58] LABS: Basophils # (A) 0.02 X 10*3/uL (0.00-0.10); Basophils % (A) 0.2 %; Eosinophils # (A) 0.13 X 10*3/uL (0.04-0.35); Eosinophils % (A) 1.5 %; HCT 27.8 % (39.6-50.0); HGB 8.3 g/dL (13.0-17.0); Lymphocytes # (A) 0.83 X 10*3/uL (0.90-5.00); Lymphocytes % (A) 9.4 %; MCH 25.8 pg (27.0-32.0); MCHC 29.9 g/dL (32.0-37.0); MCV 86.3 fL (80.0-97.0); Mean Platelet Volume 10.3 fL (9.5-12.2); Monocytes % (A) 7.9 %; Neutrophils # (A) 7.12 X 10*3/uL (1.80-7.70); Neutrophils % (A) 80.3 %; Platelet Count 441 X 10*3/uL (140-440); RBC 3.22 X 10*6/uL (4.40-5.60); RDW 15.7 % (11.5-14.5); WBC 8.86 X 10*3/uL (4.50-10.00)
[2020-08-28] MEDS: ONDANSETRON 4 MG/2 ML VIAL IVP PRN ×2 (10:11→19:24)
[2020-08-28 10:22] LABS: African American GFR (CKD) 103.4 (60.0-200.0); Albumin 3.4 g/dL (3.80-4.90); Albumin/Globulin Ratio 1.55 (1.60-3.17); BUN/Creat Ratio 28.75 Ratio (12.00-20.00); Calcium 8.7 mg/dL (8.7-10.3); Globulin 2.2 g/dL (1.6-3.3); Non-African American GFR(CKD) 89.2 (60.0-200.0); Potassium 4.4 mmol/L (3.5-5.5); Total Bilirubin 0.8 mg/dL (0.3-1.2); Total Protein 5.6 g/dL (6.2-8.2)
[2020-08-28 11:16] LABS: Glucose,Whole Blood 142 mg/dL (75-99)
--- NOTE | 2020-08-28 11:34 | P.PN ---
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 He was evaluated in the emergency room, vital examination on presentation revealed a temperature of 98.6 pulse 82 respiration 18 blood pressure 140/82 pulse ox 99% on room air, white blood count was 7.5 hemoglobin 11.2 platelet count 359 BUN 39 creatinine 0.97 coronavirus PCR was negative. Computed tomography scan of the head and the cervical spine did not reveal any acute abnormality, x-ray of the pelvis and the left hip revealed evidence of acute intertrochanteric fracture of the left femur, patient was admitted to medical floor, orthopedic consultation was requested. Patient has a known history of hypertension, hyperlipidemia, vsg-sasqxri-xwxviinoe diabetes mellitus, severe peripheral vascular disease, benign prostatic hypertrophy, gastroesophageal reflux disease, depression, COPD, chronic pain syndrome, and continued tobacco use. On 08/23/2020 patient is alert and oriented 3. Patient had temperature 101.7 last night. Patient was evaluated I orthopedic services no plans for surgical intervention to left hip. Is recommending vascular consult for right ankle pain. Concerns of possible osteomyelitis due to comorbidities and elevated temperature. X-ray of right foot has been ordered and infectious disease consult placed. Will also order blood culture, chest x-ray and urinary analysis. At that time patient denies any chest pain or shortness of breath. Patient denies nausea vomiting or diarrhea. Patient denies any urinary burning or frequency On 08/24/2020 Patient was seen and examined on the medical floor, he is alert and oriented x 3 in no distress, he denies any complaints there is no fever or chills no headache or dizziness no chest pain no shortness of breath no palpitation no cough no nausea or vomiting no abdominal pain no diarrhea no blood in the stools no burning with urination no frequency or urgency and no hematuria, there is no weakness or numbness in any of the extremities no change in vision speech or gait. No new episodes of fever, patient has evidence of urinary tract infection, he was started on IV Rocephin, pain is better controlled, awaiting vascular surgery and infectious disease recommendation, continue with current management at this time. 08/25/2020 patient alert and oriented 3 patient remains on IV Rocephin. Orders for arterial ultrasound of the lower extremities per vascular surgery at this t shahrzad patient denies any chest pain or shortness of breath. Patient denies nausea vomiting or diarrhea. Patient denies any urinary burning or frequency On 08/26/2020atient was seen and examined on the medical floor, he is alert and oriented x 3 in no distress, he denies any complaints there is no fever or chills no headache or dizziness no chest pain no shortness of breath no palpitation no cough no nausea or vomiting no abdominal pain no diarrhea no blood in the stools no burning with urination no frequency or urgency and no hematuria, there is no weakness or numbness in any of the extremities no change in vision speech or gait., Pain is better controlled at this time tomorrow will increase dose of fentanyl patch and discontinue IV dilaudid. If pain remains well controlled, possible discharge to home on Wednesday, patient is refusing to go to any rehab center. On 08/28/2020 patient is alert and oriented 3. Patient still complaining of increased pain with some nausea. Patient remains on fentanyl patch 75 mcg. Zofran for nausea. At this time patient denies chest pain or shortness of breath. Patient denies nausea vomiting or diarrhea. Patient denies any urinary burning or frequency Objective - Vital Signs Vital signs: Vital Signs Temp 98.6 F 08/28/20 08:00 Pulse 91 08/28/20 08:00 Resp 19 08/28/20 08:00 BP 148/78 08/28/20 08:00 Pulse Ox 93 L 08/28/20 08:00 Intake & Output 08/27/20 08/28/20 08/28/20 18:59 06:59 18:59 Intake Total 240 Output Total 600 600 Balance -600 -360 Weight 49.895 kg Intake: Oral 240 Output: Urine 600 600 Other: Voiding Method Indwelling Catheter - Exam In general patient is alert and oriented ?-3 in no distress HEENT head normocephalic and atraumatic Neck is supple no JVD no goiter no lymphadenopathy no carotid bruit Chest examination reveals a scattered crackles bilaterally no wheezing Cardiac exam reveals regular heart sounds S1 and S2 no gallops no murmurs Abdomen is soft nontender no organomegaly with normal bowel sounds Extremity exam reveals no edema no cyanosis or clubbing, patient had a high left qzaon-dyj-fyjt amputation Neurological examination reveals no gross focal deficits - Labs CBC & Chem 7: 08/28/20 05:52 08/28/20 05:52 Labs: Abnormal Lab Results - Last 24 Hours (Table) 08/27/20 08/27/20 08/27/20 Range/Units 06:52 11:51 16:51 RBC (4.40-5.60) X 10*6/uL Hgb (13.0-17.0) g/dL Hct (39.6-50.0) % MCH (27.0-32.0) pg MCHC (32.0-37.0) g/dL RDW (11.5-14.5) % Plt Count (140-440) X 10*3/uL Immature Gran # (0.00-0.04) X 10*3/uL Lymphocytes # (0.90-5.00) X 10*3/uL BUN/Creatinine Ratio 35.00 H (12.00-20.00) Ratio Glucose 139 H (70-110) mg/dL POC Glucose (mg/dL) 110 H 142 H (75-99) mg/dL Calcium 8.2 L (8.7-10.3) mg/dL Total Protein 5.5 L (6.2-8.2) g/dL Albumin 3.40 L (3.80-4.90) g/dL Albumin/Globulin Ratio (1.60-3.17) g/dL 08/27/20 08/28/20 08/28/20 Range/Units 19:55 05:52 05:52 RBC 3.22 L (4.40-5.60) X 10*6/uL Hgb 8.3 L (13.0-17.0) g/dL Hct 27.8 L (39.6-50.0) % MCH 25.8 L (27.0-32.0) pg MCHC 29.9 L (32.0-37.0) g/dL RDW 15.7 H (11.5-14.5) % Plt Count 441 H (140-440) X 10*3/uL Immature Gran # 0.06 H (0.00-0.04) X 10*3/uL Lymphocytes # 0.83 L (0.90-5.00) X 10*3/uL BUN/Creatinine Ratio 28.75 H (12.00-20.00) Ratio Glucose 128 H (70-110) mg/dL POC Glucose (mg/dL) 166 H (75-99) mg/dL Calcium (8.7-10.3) mg/dL Total Protein 5.6 L (6.2-8.2) g/dL Albumin 3.40 L (3.80-4.90) g/dL Albumin/Globulin Ratio 1.55 L (1.60-3.17) g/dL 08/28/20 08/28/20 Range/Units 07:00 11:14 RBC (4.40-5.60) X 10*6/uL Hgb (13.0-17.0) g/dL Hct (39.6-50.0) % MCH (27.0-32.0) pg MCHC (32.0-37.0) g/dL RDW (11.5-14.5) % Plt Count (140-440) X 10*3/uL Immature Gran # (0.00-0.04) X 10*3/uL Lymphocytes # (0.90-5.00) X 10*3/uL BUN/Creatinine Ratio (12.00-20.00) Ratio Glucose (70-110) mg/dL POC Glucose (mg/dL) 116 H 142 H (75-99) mg/dL Calcium (8.7-10.3) mg/dL Total Protein (6.2-8.2) g/dL Albumin (3.80-4.90) g/dL Albumin/Globulin Ratio (1.60-3.17) g/dL Microbiology - Last 24 Hours (Table) 08/23/20 10:27 Blood Culture - Preliminary Blood No Growth after 96 hours Assessment and Plan Plan: 1. intertrochanteric fracture of the left femur. patient was evaluated by ort hopedic services no plans for surgical intervention. 2. Underlying history of hypertension 3. Underlying history of hyperlipidemia 4. Underlying history of peripheral vascular disease 5. Underlying history of gastroesophageal reflux disease 6. Underlying history of COPD 7. Underlying history of depression 8. Underlying history of chronic pain syndrome 9. febrile. chest xray, blood culture and u/a ordered 10. right ankle pain. x ray of foot ordered. Concerns of possible osteomyelitis infectious disease consulted. Vascular surgery consulted due to comorbidities 11. Anemia. Stool for occult blood ordered iron studies ordered. Stool for occult blood negative At this time home medications reviewed and reordered Pain management fentnyl patch Orthopedics, infectious disease and vascular surgery consulted Patient started on Rocephin Arterial ultrasound of lower extremity is ordered Patient counseled again in regard to smoking cessation and given a nicotine patch Will recheck labs and follow-up in a.m. PT OT and social media project manager consult for discharge planning
--- NOTE | 2020-08-28 13:20 | P.PN ---
Subjective Progress Note Date: 08/28/20 Principal diagnosis: Anemia She was seen and examined lying in bed. He is without any major complaints today. States he just doesn't feel well overall with some mild nausea. He continues to deny any abdominal pain, or answer symptoms of GI bleed. Hemoccult stool came back negative. Hemoglobin remained stable at 8.3. Objective - Vital Signs Vital signs: Vital Signs Temp 98.6 F 08/28/20 08:00 Pulse 91 08/28/20 08:00 Resp 19 08/28/20 08:00 BP 148/78 08/28/20 08:00 Pulse Ox 93 L 08/28/20 08:00 Intake & Output 08/27/20 08/28/20 08/28/20 18:59 06:59 18:59 Intake Total 240 Output Total 600 600 Balance -600 -360 Weight 49.895 kg Intake: Oral 240 Output: Urine 600 600 Other: Voiding Method Indwelling Catheter - Exam General appearance: The patient is alert, oriented, appears in no acute distress. HET: Head is normocephalic and atraumatic. Conjunctiva pink. Sclera anicteric. Neck: Supple without lymphadenopathy. Abdomen: Soft, nontender, nondistended with bowel sounds. No guarding or rigidity. Extremities: Normal skin color and turgor. Left uhhvg-alh-nlgi amputation. No pedal edema right lower extremity. Skin: No rashes, no jaundice Neurological: No focal deficits. Alert and oriented 3. - Labs CBC & Chem 7: 08/28/20 05:52 08/28/20 05:52 Labs: Abnormal Lab Results - Last 24 Hours (Table) 08/27/20 08/27/20 08/27/20 Range/Units 06:52 06:52 11:51 RBC 3.31 L (4.40-5.60) X 10*6/uL Hgb 8.4 L (13.0-17.0) g/dL Hct 28.3 L (39.6-50.0) % MCH 25.4 L (27.0-32.0) pg MCHC 29.7 L (32.0-37.0) g/dL RDW 15.7 H (11.5-14.5) % Lymphocytes # 0.83 L (0.90-5.00) X 10*3/uL BUN/Creatinine Ratio 35.00 H (12.00-20.00) Ratio Glucose 139 H (70-110) mg/dL POC Glucose (mg/dL) 110 H (75-99) mg/dL Calcium 8.2 L (8.7-10.3) mg/dL Total Protein 5.5 L (6.2-8.2) g/dL Albumin 3.40 L (3.80-4.90) g/dL 08/27/20 08/27/20 08/28/20 Range/Units 16:51 19:55 07:00 RBC (4.40-5.60) X 10*6/uL Hgb (13.0-17.0) g/dL Hct (39.6-50.0) % MCH (27.0-32.0) pg MCHC (32.0-37.0) g/dL RDW (11.5-14.5) % Lymphocytes # (0.90-5.00) X 10*3/uL BUN/Creatinine Ratio (12.00-20.00) Ratio Glucose (70-110) mg/dL POC Glucose (mg/dL) 142 H 166 H 116 H (75-99) mg/dL Calcium (8.7-10.3) mg/dL Total Protein (6.2-8.2) g/dL Albumin (3.80-4.90) g/dL Microbiology - Last 24 Hours (Table) 08/23/20 10:27 Blood Culture - Preliminary Blood No Growth after 96 hours Assessment and Plan (1) Anemia Narrative/Plan: 70-year-old white male who presented to the hospital after sustaining a fall and a left hip fracture. During his hospitalization he was noted to have a decline in his hemoglobin, initial hemoglobin was 10.4 with a progressive drop to 8.0. This is a patient without any signs or symptoms of a GI bleed. He has a remote history approximately 15 years ago of an EGD and colonoscopy for which he believes was normal. Also states he had a colonoscopy about 5-6 years ago which she states was normal. He'll has no previous history of anemia. He does have a history of coronary artery disease and peripheral arterial disease for which she is taking aspirin and Plavix, however that has been held since his admission with his last dose being 07/22/2020. Iron studies and anemia panel ordered for further evaluation. No plans for endoscopic evaluation at this time unless further drop in hemoglobin or signs of GI bleed. Current Visit: Yes Status: Acute Code(s): D64.9 - ANEMIA, UNSPECIFIED SNOMED Code(s): 388075923 Plan: Continue symptomatic and supportive care Iron studies and anemia panel ordered and reviewed Continue to monitor for signs of GI bleed Continue IV iron replacement Stool Hemoccult ordered, negative May resume Plavix Continue diet as tolerated Daily CBC transfuse for hemoglobin less than 7 No plans for endoscopic evaluation at this time has thereand GI bleed. Likely dealing with anemia of chronic condition. Thank you for this consultation, we will be on standby. These do not hesitate to call us back with any concerns. Dr. Ford I agree with the dictator's note, documented as a scribe by Kaylyn Rodriguez.
[2020-08-28 16:48] LABS: Glucose,Whole Blood 126 mg/dL (75-99)
[2020-08-28] MEDS: TAMSULOSIN 0.4 MG CAP.ER.24H PO SCH (18:10)
[2020-08-28] MEDS: SODIUM CHLORIDE 0.9% 1,000 ML IV SCH (19:25)
[2020-08-28 21:12] LABS: Glucose,Whole Blood 149 mg/dL (75-99)
--- NOTE | 2020-08-28 23:11 | PN ---
PROGRESS NOTE DATE OF SERVICE: 08/28/2020 REASON FOR FOLLOWUP: Fever and UTI. INTERVAL HISTORY: The patient is currently afebrile. The patient is breathing comfortably. The patient denies having any chest pain or shortness of breath or cough. No nausea. No vomiting. No abdominal pain. Pain to the left hip is currently controlled. PHYSICAL EXAMINATION: Blood pressure 105/55, pulse of 97, temperature 98.7. He is 90% on room air. General description is an elderly male lying in bed in no distress. RESPIRATORY SYSTEM: Unlabored breathing. Clear to auscultation anteriorly. HEART: S1, S2. Regular rate and rhythm. ABDOMEN: Soft. No tenderness. LABS: Hemoglobin 8.3, white count 8.86, BUN of 23, creatinine 0.8. Liver enzymes are normal. DIAGNOSTIC IMPRESSION AND PLAN: Patient with a fever, source likely urinary tract infection. Responding to the Rocephin; to continue and monitor his clinical course closely. MMODL / IJN: [id number] /
[2020-08-29] MEDS: HYDROcodone/APAP 10-325MG 1 EACH TAB PO PRN ×4 (01:59→18:07)
[2020-08-29 07:32] LABS: Glucose,Whole Blood 116 mg/dL (75-99)
[2020-08-29] MEDS: SYMBICORT 160-4.5 MCG INHALER INHALATION SCH ×2 (08:10→18:54)
[2020-08-29] MEDS: metFORMIN 500 MG TAB PO SCH ×2 (08:11→20:32)
[2020-08-29] MEDS: METOPROLOL SUCCINATE (ER) 25 MG TAB.ER.24H PO SCH (08:11)
[2020-08-29] MEDS: lisinopriL 20 MG TAB PO SCH (08:11)
[2020-08-29] MEDS: amLODIPine 5 MG TAB PO SCH (08:11)
[2020-08-29] MEDS: ESCITALOPRAM 10 MG TAB PO SCH (08:11)
[2020-08-29] MEDS: NICOTINE 14MG/24HR PATCH TRANSDERM SCH (08:11)
[2020-08-29] MEDS: ATORVASTATIN 80 MG TAB PO SCH (08:11)
[2020-08-29] MEDS ORDERED: ALBUTEROL HFA INHALER INHALATION PRN (08:17)
[2020-08-29] MEDS ORDERED: TIOTROPIUM 2.5 MCG INHALER INHALATION PRN (08:19)
[2020-08-29 11:19] LABS: Basophils # (A) 0.03 X 10*3/uL (0.00-0.10); Basophils % (A) 0.3 %; Eosinophils # (A) 0.11 X 10*3/uL (0.04-0.35); Eosinophils % (A) 1.3 %; HCT 28.9 % (39.6-50.0); HGB 8.6 g/dL (13.0-17.0); Lymphocytes # (A) 0.75 X 10*3/uL (0.90-5.00); Lymphocytes % (A) 8.7 %; MCH 25.8 pg (27.0-32.0); MCHC 29.8 g/dL (32.0-37.0); MCV 86.8 fL (80.0-97.0); Mean Platelet Volume 10.3 fL (9.5-12.2); Monocytes # (A) 0.78 X 10*3/uL (0.20-1.00); Neutrophils # (A) 6.92 X 10*3/uL (1.80-7.70); Neutrophils % (A) 79.9 %; Platelet Count 481 X 10*3/uL (140-440); RBC 3.33 X 10*6/uL (4.40-5.60); RDW 15.9 % (11.5-14.5); WBC 8.66 X 10*3/uL (4.50-10.00)
[2020-08-29 11:37] LABS: Glucose,Whole Blood 139 mg/dL (75-99)
[2020-08-29] MEDS: SODIUM FERRIC GLUCONAT-SUCROSE 125 MG in SODIUM CHLORIDE 0.9% 100 ML IVPB SCH (11:58)
[2020-08-29] MEDS: ONDANSETRON 4 MG/2 ML VIAL IVP PRN ×2 (13:38→18:10)
[2020-08-29 13:56] LABS: African American GFR (CKD) 116.4 (60.0-200.0); Albumin 3.1 g/dL (3.80-4.90); Albumin/Globulin Ratio 1.35 (1.60-3.17); Anion Gap 9.5 mmol/L (4.00-12.00); Calcium 8.1 mg/dL (8.7-10.3); Carbon Dioxide 24.5 mmol/L (21.6-31.8); Globulin 2.3 g/dL (1.6-3.3); Non-African American GFR(CKD) 100.4 (60.0-200.0); Potassium 4.6 mmol/L (3.5-5.5); Total Bilirubin 0.6 mg/dL (0.2-1.2); Total Protein 5.4 g/dL (6.2-8.2)
[2020-08-29] MEDS: TAMSULOSIN 0.4 MG CAP.ER.24H PO SCH (18:07)
--- NOTE | 2020-08-29 18:11 | P.PN ---
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 He was evaluated in the emergency room, vital examination on presentation revealed a temperature of 98.6 pulse 82 respiration 18 blood pressure 140/82 pulse ox 99% on room air, white blood count was 7.5 hemoglobin 11.2 platelet count 359 BUN 39 creatinine 0.97 coronavirus PCR was negative. Computed tomography scan of the head and the cervical spine did not reveal any acute abnormality, x-ray of the pelvis and the left hip revealed evidence of acute intertrochanteric fracture of the left femur, patient was admitted to medical floor, orthopedic consultation was requested. Patient has a known history of hypertension, hyperlipidemia, pfu-zctwwju-cnbhmfnwj diabetes mellitus, severe peripheral vascular disease, benign prostatic hypertrophy, gastroesophageal reflux disease, depression, COPD, chronic pain syndrome, and continued tobacco use. On 08/23/2020 patient is alert and oriented 3. Patient had temperature 101.7 last night. Patient was evaluated I orthopedic services no plans for surgical intervention to left hip. Is recommending vascular consult for right ankle pain. Concerns of possible osteomyelitis due to comorbidities and elevated temperature. X-ray of right foot has been ordered and infectious disease consult placed. Will also order blood culture, chest x-ray and urinary analysis. At that time patient denies any chest pain or shortness of breath. Patient denies nausea vomiting or diarrhea. Patient denies any urinary burning or frequency On 08/24/2020 Patient was seen and examined on the medical floor, he is alert and oriented x 3 in no distress, he denies any complaints there is no fever or chills no headache or dizziness no chest pain no shortness of breath no palpitation no cough no nausea or vomiting no abdominal pain no diarrhea no blood in the stools no burning with urination no frequency or urgency and no hematuria, there is no weakness or numbness in any of the extremities no change in vision speech or gait. No new episodes of fever, patient has evidence of urinary tract infection, he was started on IV Rocephin, pain is better controlled, awaiting vascular surgery and infectious disease recommendation, continue with current management at this time. 08/25/2020 patient alert and oriented 3 patient remains on IV Rocephin. Orders for arterial ultrasound of the lower extremities per vascular surgery at this t shahrzad patient denies any chest pain or shortness of breath. Patient denies nausea vomiting or diarrhea. Patient denies any urinary burning or frequency On 1Patient was seen and examined on the medical floor, he is alert and oriented x 3 in no distress, he denies any complaints there is no fever or chills no headache or dizziness no chest pain no shortness of breath no palpitation no cough no nausea or vomiting no abdominal pain no diarrhea no blood in the stools no burning with urination no frequency or urgency and no hematuria, there is no weakness or numbness in any of the extremities no change in vision speech or gait., Pain is better controlled at this time tomorrow will increase dose of fentanyl patch and discontinue IV dilaudid. If pain remains well controlled, possible discharge to home on Wednesday, patient is refusing to go to any rehab center. On 08/27/2020atient was seen and examined on the medical floor, he is alert and oriented x 3 in no distress, he denies any complaints there is no fever or chills no headache or dizziness no chest pain no shortness of breath no palpitation no cough no nausea or vomiting no abdominal pain no diarrhea no blood in the stools no burning with urination no frequency or urgency and no hematuria, there is no weakness or numbness in any of the extremities no change in vision speech or gait., Pain is better controlled at this time tomorrow will increase dose of fentanyl patch and discontinue IV dilaudid. Urine color is da rk in the Russo catheter bag, will check urine analysis, possible discharge to home in the next 1-2 days Objective - Vital Signs Vital signs: Vital Signs Temp 99.0 F 08/27/20 07:24 Pulse 61 08/27/20 07:24 Resp 17 08/27/20 07:24 BP 132/52 08/27/20 07:24 Pulse Ox 90 L 08/27/20 07:24 Intake & Output 08/26/20 08/27/20 08/27/20 18:59 06:59 18:59 Output Total 420 600 Balance -420 -600 Weight 49.895 kg Output: Urine 420 600 Other: Voiding Method Indwelling Catheter - Exam In general patient is alert and oriented ?-3 in no distress HEENT head normocephalic and atraumatic Neck is supple no JVD no goiter no lymphadenopathy no carotid bruit Chest examination reveals a scattered crackles bilaterally no wheezing Cardiac exam reveals regular heart sounds S1 and S2 no gallops no murmurs Abdomen is soft nontender no organomegaly with normal bowel sounds Extremity exam reveals no edema no cyanosis or clubbing, patient had a high left psqtg-bvh-ygfv amputation Neurological examination reveals no gross focal deficits - Labs CBC & Chem 7: 08/29/20 06:47 08/29/20 06:47 Labs: Abnormal Lab Results - Last 24 Hours (Table) 08/26/20 08/26/20 08/26/20 Range/Units 06:06 16:57 20:57 RBC (4.40-5.60) X 10*6/uL Hgb (13.0-17.0) g/dL Hct (39.6-50.0) % MCH (27.0-32.0) pg MCHC (32.0-37.0) g/dL RDW (11.5-14.5) % Lymphocytes # (0.90-5.00) X 10*3/uL BUN/Creatinine Ratio (12.00-20.00) Ratio Glucose (70-110) mg/dL POC Glucose (mg/dL) 256 H 175 H (75-99) mg/dL Calcium (8.7-10.3) mg/dL Iron 13 L (65-175) ug/dL % Saturation 4.80 L (15.00-50.00) Total Protein (6.2-8.2) g/dL Albumin (3.80-4.90) g/dL 08/27/20 08/27/20 08/27/20 Range/Units 06:42 06:52 06:52 RBC 3.31 L (4.40-5.60) X 10*6/uL Hgb 8.4 L (13.0-17.0) g/dL Hct 28.3 L (39.6-50.0) % MCH 25.4 L (27.0-32.0) pg MCHC 29.7 L (32.0-37.0) g/dL RDW 15.7 H (11.5-14.5) % Lymphocytes # 0.83 L (0.90-5.00) X 10*3/uL BUN/Creatinine Ratio 35.00 H (12.00-20.00) Ratio Glucose 139 H (70-110) mg/dL POC Glucose (mg/dL) 155 H (75-99) mg/dL Calcium 8.2 L (8.7-10.3) mg/dL Iron (65-175) ug/dL % Saturation (15.00-50.00) Total Protein 5.5 L (6.2-8.2) g/dL Albumin 3.40 L (3.80-4.90) g/dL 08/27/20 Range/Units 11:51 RBC (4.40-5.60) X 10*6/uL Hgb (13.0-17.0) g/dL Hct (39.6-50.0) % MCH (27.0-32.0) pg MCHC (32.0-37.0) g/dL RDW (11.5-14.5) % Lymphocytes # (0.90-5.00) X 10*3/uL BUN/Creatinine Ratio (12.00-20.00) Ratio Glucose (70-110) mg/dL POC Glucose (mg/dL) 110 H (75-99) mg/dL Calcium (8.7-10.3) mg/dL Iron (65-175) ug/dL % Saturation (15.00-50.00) Total Protein (6.2-8.2) g/dL Albumin (3.80-4.90) g/dL Microbiology - Last 24 Hours (Table) 08/23/20 10:27 Blood Culture - Preliminary Blood No Growth after 96 hours Assessment and Plan Plan: 1. intertrochanteric fracture of the left femur. patient was evaluated by orthopedic services no plans for surgical intervention. 2. Underlying history of hypertension 3. Underlying history of hyperlipidemia 4. Underlying history of peripheral vascular disease 5. Underlying history of gastroesophageal reflux disease 6. Underlying history of COPD 7. Underlying history of depression 8. Underlying history of chronic pain syndrome 9. febrile. chest xray, blood culture and u/a ordered 10. right ankle pain. x ray of foot ordered. Concerns of possible osteomyelitis infectious disease consulted. Vascular surgery consulted due to comorbidities 11. Anemia. Stool for occult blood ordered iron studies ordered. At this time home medications reviewed and reordered Pain management patient resumed on [place], and is given IV dye Dilaudid for breakthrough pain Orthopedics, infectious disease and vascular surgery consulted Patient started on Rocephin Arterial ultrasound of lower extremity is ordered Patient counseled again in regard to smoking cessation and given a nicotine patch Will recheck labs and follow-up in a.m. PT OT and social services director consult for discharge planning
--- NOTE | 2020-08-29 18:13 | P.PN ---
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 He was evaluated in the emergency room, vital examination on presentation revealed a temperature of 98.6 pulse 82 respiration 18 blood pressure 140/82 pulse ox 99% on room air, white blood count was 7.5 hemoglobin 11.2 platelet count 359 BUN 39 creatinine 0.97 coronavirus PCR was negative. Computed tomography scan of the head and the cervical spine did not reveal any acute abnormality, x-ray of the pelvis and the left hip revealed evidence of acute intertrochanteric fracture of the left femur, patient was admitted to medical floor, orthopedic consultation was requested. Patient has a known history of hypertension, hyperlipidemia, peg-zqpiljk-tsexqzspf diabetes mellitus, severe peripheral vascular disease, benign prostatic hypertrophy, gastroesophageal reflux disease, depression, COPD, chronic pain syndrome, and continued tobacco use. On 08/23/2020 patient is alert and oriented 3. Patient had temperature 101.7 last night. Patient was evaluated I orthopedic services no plans for surgical intervention to left hip. Is recommending vascular consult for right ankle pain. Concerns of possible osteomyelitis due to comorbidities and elevated temperature. X-ray of right foot has been ordered and infectious disease consult placed. Will also order blood culture, chest x-ray and urinary analysis. At that time patient denies any chest pain or shortness of breath. Patient denies nausea vomiting or diarrhea. Patient denies any urinary burning or frequency On 08/24/2020 Patient was seen and examined on the medical floor, he is alert and oriented x 3 in no distress, he denies any complaints there is no fever or chills no headache or dizziness no chest pain no shortness of breath no palpitation no cough no nausea or vomiting no abdominal pain no diarrhea no blood in the stools no burning with urination no frequency or urgency and no hematuria, there is no weakness or numbness in any of the extremities no change in vision speech or gait. No new episodes of fever, patient has evidence of urinary tract infection, he was started on IV Rocephin, pain is better controlled, awaiting vascular surgery and infectious disease recommendation, continue with current management at this time. 08/25/2020 patient alert and oriented 3 patient remains on IV Rocephin. Orders for arterial ultrasound of the lower extremities per vascular surgery at this ti co patient denies any chest pain or shortness of breath. Patient denies nausea vomiting or diarrhea. Patient denies any urinary burning or frequency On 08/26/2020atient was seen and examined on the medical floor, he is alert and oriented x 3 in no distress, he denies any complaints there is no fever or chills no headache or dizziness no chest pain no shortness of breath no palpitation no cough no nausea or vomiting no abdominal pain no diarrhea no blood in the stools no burning with urination no frequency or urgency and no hematuria, there is no weakness or numbness in any of the extremities no change in vision speech or gait., Pain is better controlled at this time tomorrow will increase dose of fentanyl patch and discontinue IV dilaudid. If pain remains well controlled, possible discharge to home on Wednesday, patient is refusing to go to any rehab center. On 08/27/2020atient was seen and examined on the medical floor, he is alert and oriented x 3 in no distress, he denies any complaints there is no fever or chills no headache or dizziness no chest pain no shortness of breath no palpitation no cough no nausea or vomiting no abdominal pain no diarrhea no blood in the stools no burning with urination no frequency or urgency and no hematuria, there is no weakness or numbness in any of the extremities no change in vision speech or gait., Pain is better controlled at this time tomorrow will increase dose of fentanyl patch and discontinue IV dilaudid. Urine color is charles k in the Russo catheter bag, will check urine analysis, possible discharge to home in the next 1-2 days On 08/28/2020 patient is alert and oriented 3. Patient still complaining of increased pain with some nausea. Patient remains on fentanyl patch 75 mcg. Zofran for nausea. At this time patient denies chest pain or shortness of breath. Patient denies nausea vomiting or diarrhea. Patient denies any urinary burning or frequency On 08/29/2020atient was seen and examined on the medical floor, he is alert and oriented x 3 in no distress, he denies any complaints there is no fever or chills no headache or dizziness no chest pain no shortness of breath no palpitation no cough no nausea or vomiting no abdominal pain no diarrhea no blood in the stools no burning with urination no frequency or urgency and no hematuria, there is no weakness or numbness in any of the extremities no change in vision speech or gait., Pain is better controlled at this time, check urine analysis, possible discharge to home tomorrow Objective - Vital Signs Vital signs: Vital Signs Temp 98.3 F 08/29/20 13:58 Pulse 82 08/29/20 13:58 Resp 18 08/29/20 13:58 BP 119/63 08/29/20 13:58 Pulse Ox 96 08/29/20 13:58 Intake & Output 08/28/20 08/29/20 08/29/20 18:59 06:59 18:59 Intake Total 840 390 Output Total 290 097 9771 Balance -700 140 -610 Intake: Intake, IV Titration 390 Amount Sodium Chloride 0.9% 1, 240 000 ml @ 20 mls/hr IV . Q24H [facility]ERRITT Rx#:[id number] Sodium Ferric Gluconat- 100 Sucrose 125 mg In Sodium Chloride 0.9% 100 ml @ 100 mls/hr IVPB DAILY [facility]ITT Rx#:[id number] cefTRIAXone 1 gm In 50 Sodium Chloride 0.9% 50 ml @ 100 mls/hr IVPB Q24HR [facility]ERRITT Rx#:[id number] Oral 840 Output: Urine 828 659 [id number] Other: Voiding Method Indwelling Catheter Indwelling Catheter Indwelling Catheter # Voids 4 # Bowel Movements 0 1 - Exam In general patient is alert and oriented ?-3 in no distress HEENT head normocephalic and atraumatic Neck is supple no JVD no goiter no lymphadenopathy no carotid bruit Chest examination reveals a scattered crackles bilaterally no wheezing Cardiac exam reveals regular heart sounds S1 and S2 no gallops no murmurs Abdomen is soft nontender no organomegaly with normal bowel sounds Extremity exam reveals no edema no cyanosis or clubbing, patient had a high left xqcxh-ryu-bamg amputation Neurological examination reveals no gross focal deficits - Labs CBC & Chem 7: 08/29/20 06:47 08/29/20 06:47 Labs: Abnormal Lab Results - Last 24 Hours (Table) 08/28/20 08/29/20 08/29/20 Range/Units 21:10 06:47 06:47 RBC 3.33 L (4.40-5.60) X 10*6/uL Hgb 8.6 L (13.0-17.0) g/dL Hct 28.9 L (39.6-50.0) % MCH 25.8 L (27.0-32.0) pg MCHC 29.8 L (32.0-37.0) g/dL RDW 15.9 H (11.5-14.5) % Plt Count 481 H (140-440) X 10*3/uL Immature Gran # 0.07 H (0.00-0.04) X 10*3/uL Lymphocytes # 0.75 L (0.90-5.00) X 10*3/uL BUN/Creatinine Ratio 35.00 H (12.00-20.00) Ratio POC Glucose (mg/dL) 149 H (75-99) mg/dL Calcium 8.1 L (8.7-10.3) mg/dL Total Protein 5.4 L (6.2-8.2) g/dL Albumin 3.10 L (3.80-4.90) g/dL Albumin/Globulin Ratio 1.35 L (1.60-3.17) g/dL 08/29/20 08/29/20 Range/Units 07:30 11:36 RBC (4.40-5.60) X 10*6/uL Hgb (13.0-17.0) g/dL Hct (39.6-50.0) % MCH (27.0-32.0) pg MCHC (32.0-37.0) g/dL RDW (11.5-14.5) % Plt Count (140-440) X 10*3/uL Immature Gran # (0.00-0.04) X 10*3/uL Lymphocytes # (0.90-5.00) X 10*3/uL BUN/Creatinine Ratio (12.00-20.00) Ratio POC Glucose (mg/dL) 116 H 139 H (75-99) mg/dL Calcium (8.7-10.3) mg/dL Total Protein (6.2-8.2) g/dL Albumin (3.80-4.90) g/dL Albumin/Globulin Ratio (1.60-3.17) g/dL Microbiology - Last 24 Hours (Table) 08/23/20 10:27 Blood Culture - Final Blood No Growth after 144 hours Assessment and Plan Plan: 1. intertrochanteric fracture of the left femur. patient was evaluated by orthopedic services no plans for surgical intervention. 2. Underlying history of hypertension 3. Underlying history of hyperlipidemia 4. Underlying history of peripheral vascular disease 5. Underlying history of gastroesophageal reflux disease 6. Underlying history of COPD 7. Underlying history of depression 8. Underlying history of chronic pain syndrome 9. febrile. chest xray, blood culture and u/a ordered 10. right ankle pain. x ray of foot ordered. Concerns of possible osteomyelitis infectious disease consulted. Vascular surgery consulted due to comorbidities 11. Anemia. Stool for occult blood ordered iron studies ordered. Stool for occult blood negative At this time home medications reviewed and reordered Pain management fentnyl patch Orthopedics, infectious disease and vascular surgery consulted Patient started on Rocephin Arterial ultrasound of lower extremity is ordered Patient counseled again in regard to smoking cessation and given a nicotine patch Will recheck labs and follow-up in a.m. PT OT and social media manager consult for discharge planning
--- NOTE | 2020-08-29 20:09 | PN ---
PROGRESS NOTE DATE OF SERVICE: 08/29/2020 REASON FOR FOLLOWUP: Fever and UTI. INTERVAL HISTORY: The patient is afebrile. The patient is breathing comfortably. The patient denies having any chest pain, shortness of breath or cough. No abdominal pain. Pain to the left hip is currently controlled. PHYSICAL EXAMINATION: Blood pressure 119/56, pulse 82, temperature 98.3. He is 98% on room air. General description is an elderly male lying in bed in no distress. RESPIRATORY SYSTEM: Unlabored breathing. Clear to auscultation anteriorly. HEART: S1, S2. Regular rate and rhythm. ABDOMEN: Soft. No tenderness. LABS: Hemoglobin 8.6, white count 8.6. BUN of 21, creatinine 0.6. DIAGNOSTIC IMPRESSION AND PLAN: Patient is a fever. Source is likely UTI, responding to Rocephin. Cultures are negative. Continue supportive care. MMODL / IJN: [id number] /
[2020-08-29] MEDS: SODIUM CHLORIDE 0.9% 1,000 ML IV SCH (20:32)
[2020-08-29] MEDS: ENOXAPARIN 40 MG/0.4 ML SYRINGE SQ SCH (20:33)
[2020-08-30] MEDS: HYDROcodone/APAP 10-325MG 1 EACH TAB PO PRN ×3 (00:05→13:00)
[2020-08-30 07:40] VITALS: BP 151/71; PULSE 83; RESP 16; TEMP 98
[2020-08-30 08:34] LABS: Appearance,Urine Turbid (Clear); Bacteria,Urine Rare /hpf; Bilirubin,Urine Negative (Negative); Blood,Urine Large (Negative); Color,Urine Yellow; Glucose,Urine (UA) Negative (Negative); Ketones,Urine Negative (Negative); Leukocyte Esterase,Urine Moderate (Negative); Mucus,Urine Occasional /hpf; Nitrite,Urine Negative (Negative); Protein,Urine Trace (Negative); RBC,Urine >182 /hpf (0-5); Specific Gravity,Urine 1.016 (1.001-1.035); Urobilinogen,Urine <2.0 mg/dL (<2.0); WBC,Urine 15 /hpf (0-5)
[2020-08-30] MEDS: SYMBICORT 160-4.5 MCG INHALER INHALATION SCH (08:41)
[2020-08-30] MEDS: ONDANSETRON 4 MG/2 ML VIAL IVP PRN (08:47)
[2020-08-30] MEDS: METOPROLOL SUCCINATE (ER) 25 MG TAB.ER.24H PO SCH (08:48)
[2020-08-30] MEDS: ATORVASTATIN 80 MG TAB PO SCH (08:48)
[2020-08-30] MEDS: metFORMIN 500 MG TAB PO SCH (08:48)
[2020-08-30] MEDS: amLODIPine 5 MG TAB PO SCH (08:48)
[2020-08-30] MEDS: ENOXAPARIN 40 MG/0.4 ML SYRINGE SQ SCH (08:48)
[2020-08-30] MEDS: lisinopriL 20 MG TAB PO SCH (08:48)
[2020-08-30] MEDS: NICOTINE 14MG/24HR PATCH TRANSDERM SCH (08:49)
[2020-08-30] MEDS: ESCITALOPRAM 10 MG TAB PO SCH (08:49)
--- NOTE | 2020-08-30 10:19 | P.DS ---
Providers Date of admission: 08/21/20 20:52 Expected date of discharge: 08/30/20 Attending physician: Fidencio Barrientos Consults: 08/21/20 20:50 Consult Physician Routine Consulting Provider: Chace Angeles Consult Reason/Comments: Left IT fracture Do you want consulting provider notified?: Yes 08/23/20 10:11 Consult Physician Routine Consulting Provider: Armando Davis Consult Reason/Comments: Febrile concerns of osteomyelitis Do you want consulting provider notified?: Yes Primary care physician: Fidencio Barrientos [facility] Course: Discharge diagnosis 1. intertrochanteric fracture of the left femur. patient was evaluated by orthopedic services no plans for surgical intervention. 2. Underlying history of hypertension 3. Underlying history of hyperlipidemia 4. Underlying history of peripheral vascular disease 5. Underlying history of gastroesophageal reflux disease 6. Underlying history of COPD 7. Underlying history of depression 8. Underlying history of chronic pain syndrome 9. febrile. chest xray, blood culture and u/a ordered 10. right ankle pain. x ray of foot ordered. Concerns of possible osteomyelitis infectious disease consulted. Vascular surgery consulted due to comorbidities 11. Anemia. Stool for occult blood ordered iron studies ordered. Stool for occult blood negative 12. Urinary tract infection. 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 He was evaluated in the emergency room, vital examination on presentation revealed a temperature of 98.6 pulse 82 respiration 18 blood pressure 140/82 pulse ox 99% on room air, white blood count was 7.5 hemoglobin 11.2 platelet count 359 BUN 39 creatinine 0.97 coronavirus PCR was negative. Computed tomography scan of the head and the cervical spine did not reveal any acute abnormality, x-ray of the pelvis and the left hip revealed evidence of acute intertrochanteric fracture of the left femur, patient was admitted to medical floor, orthopedic consultation was requested. Patient has a known history of hypertension, hyperlipidemia, [id number] diabetes mellitus, severe peripheral vascular disease, benign prostatic hypertrophy, gastroesophageal reflux disease, depression, COPD, chronic pain syndrome, and continued tobacco use. On 08/23/2020 patient is alert and oriented 3. Patient had temperature 101.7 last night. Patient was evaluated I orthopedic services no plans for surgical intervention to left hip. Is recommending vascular consult for right ankle pain. Concerns of possible osteomyelitis due to comorbidities and elevated temperature. X-ray of right foot has been ordered and infectious disease consult placed. Will also order blood culture, chest x-ray and urinary analysis. At that time patient denies any chest pain or shortness of breath. Patient denies nausea vomiting or diarrhea. Patient denies any urinary burning or frequency On 08/24/2020 Patient was seen and examined on the medical floor, he is alert and oriented x 3 in no distress, he denies any complaints there is no fever or chills no headache or dizziness no chest pain no shortness of breath no palpitation no cough no nausea or vomiting no abdominal pain no diarrhea no blood in the stools no burning with urination no frequency or urgency and no hematuria, there is no weakness or numbness in any of the extremities no change in vision speech or gait. No new episodes of fever, patient has evidence of urinary tract infection, he was started on IV Rocephin, pain is better controlled, awaiting vascular surgery and infectious disease recommendation, continue with current management at this time. 08/25/2020 patient alert and oriented 3 patient remains on IV Rocephin. Orders for arterial ultrasound of the lower extremities per vascular surgery at this time patient denies any chest pain or shortness of breath. Patient denies nausea vomiting or diarrhea. Patient denies any urinary burning or frequency On 08/26/2020atient was seen and examined on the medical floor, he is alert and oriented x 3 in no distress, he denies any complaints there is no fever or chills no headache or dizziness no chest pain no shortness of breath no palpitation no cough no nausea or vomiting no abdominal pain no diarrhea no blood in the stools no burning with urination no frequency or urgency and no hematuria, there is no weakness or numbness in any of the extremities no change in vision speech or gait., Pain is better controlled at this time tomorrow will increase dose of fentanyl patch and discontinue IV dilaudid. If pain remains well controlled, possible discharge to home on Wednesday, patient is refusing to go to any rehab center. On 08/27/2020atifidel was seen and examined on the medical floor, he is alert and oriented x 3 in no distress, he denies any complaints there is no fever or chills no headache or dizziness no chest pain no shortness of breath no palpitation no cough no nausea or vomiting no abdominal pain no diarrhea no blood in the stools no burning with urination no frequency or urgency and no hematuria, there is no weakness or numbness in any of the extremities no change in vision speech or gait., Pain is better controlled at this time tomorrow will increase dose of fentanyl patch and discontinue IV dilaudid. Urine color is dark in the Russo catheter bag, will check urine analysis, possible discharge to home in the next 1-2 days On 08/28/2020 patient is alert and oriented 3. Patient still complaining of increased pain with some nausea. Patient remains on fentanyl patch 75 mcg. Zofran for nausea. At this time patient denies chest pain or shortness of breath. Patient denies nausea vomiting or diarrhea. Patient denies any urinary burning or frequency On 08/29/2020atifidel was seen and examined on the medical floor, he is alert and oriented x 3 in no distress, he denies any complaints there is no fever or chills no headache or dizziness no chest pain no shortness of breath no palpi tation no cough no nausea or vomiting no abdominal pain no diarrhea no blood in the stools no burning with urination no frequency or urgency and no hematuria, there is no weakness or numbness in any of the extremities no change in vision speech or gait., Pain is better controlled at this time, check urine analysis, possible discharge to home tomorrow On 08/30/2020 patient alert and oriented 3. Patient reports well-controlled pain at this time. Patient reports he has been on patches at home. Will write 3 days [facility] outpatient follow-up with PCP for further management of pain. Repeat UA positive for urinary tract infection will order urine culture. Patient will be DC'd on Ceftin for 5 more days. Patient also DC'd on Zofran. Patient denies chest pain or shortness breath. Patient denies nausea vomiting or diarrhea. Patient denies any urinary burning or frequency. Patient Condition at Discharge: Stable Plan - Discharge Summary Discharge Rx Participant: No New Discharge Prescriptions: No Action Aspirin 81 mg PO DAILY metFORMIN HCL [Glucophage] 500 mg PO BID DULoxetine HCL [Cymbalta] 60 mg PO W/SUPPER lisinopriL [Prinivil] 20 mg PO DAILY Pantoprazole Sodium [Protonix] 40 mg PO DAILY Escitalopram [Lexapro] 10 mg PO DAILY amLODIPine [Norvasc] 5 mg PO DAILY fentaNYL 100MCG/HR PATCH [Duragesic 100MCG/HR] 100 mcg TRANSDERM Q72H #1 patch Gabapentin [Neurontin] 300 mg PO TID #9 cap Hydrocodone/Acetaminophen [Richardson 10-325] 1 tab PO Q6H PRN #12 tablet PRN Reason: Pain Cholecalciferol (Vitamin D3) [Vitamin D3 (5000 Iu)] 250 mcg PO VEE Enulose 10gm/15ml 20 gm PO Q48H PRN PRN Reason: Constipation Albuterol Inhaler [Ventolin Hfa Inhaler] 2 puff INHALATION RT-QID PRN PRN Reason: Shortness Of Breath Tamsulosin [Flomax] 0.4 mg PO PC-SUPPER #30 cap.er.24h Nitroglycerin Sl Tabs [Nitrostat] 0.4 mg SUBLINGUAL Q5M PRN #30 tab PRN Reason: Chest Pain Budesonide-Formot 160-4.5 Mcg [Symbicort 160-4.5 Mcg Inhaler] 2 puff INHALATION RT-BID Multivitamins, Thera [Multivitamin (formulary)] 1 tab PO DAILY Atorvastatin [Lipitor] 80 mg PO DAILY #30 tab Clopidogrel [Plavix] 75 mg PO DAILY #30 tab Metoprolol Succinate (ER) [Toprol XL] 25 mg PO DAILY #30 tab.er.24h Discharge Medication List Aspirin 81 mg PO DAILY 01/14/14 [History] DULoxetine HCL [Cymbalta] 60 mg PO W/SUPPER 01/14/14 [History] lisinopriL [Prinivil] 20 mg PO DAILY 01/14/14 [History] metFORMIN HCL [Glucophage] 500 mg PO BID 01/14/14 [History] Escitalopram [Lexapro] 10 mg PO DAILY 06/13/18 [History] Pantoprazole Sodium [Protonix] 40 mg PO DAILY 06/13/18 [History] amLODIPine [Norvasc] 5 mg PO DAILY 06/13/18 [History] Gabapentin [Neurontin] 300 mg PO TID #9 cap 06/17/18 [Rx] Hydrocodone/Acetaminophen [Richardson 10-325] 1 tab PO Q6H PRN #12 tablet 06/17/18 [Rx] fentaNYL 100MCG/HR PATCH [Duragesic 100MCG/HR] 100 mcg TRANSDERM Q72H #1 patch 06/17/18 [Rx] Albuterol Inhaler [Ventolin Hfa Inhaler] 2 puff INHALATION RT-QID PRN 07/16/20 [History] Cholecalciferol (Vitamin D3) [Vitamin D3 (5000 Iu)] 250 mcg PO VEE 07/16/20 [History] Enulose 10gm/15ml 20 gm PO Q48H PRN 07/16/20 [History] Multivitamins, Thera [Multivitamin (formulary)] 1 tab PO DAILY 07/16/20 [History] Atorvastatin [Lipitor] 80 mg PO DAILY #30 tab 07/20/20 [Rx] Clopidogrel [Plavix] 75 mg PO DAILY #30 tab 07/20/20 [Rx] Metoprolol Succinate (ER) [Toprol XL] 25 mg PO DAILY #30 tab.er.24h 07/20/20 [Rx] Nitroglycerin Sl Tabs [Nitrostat] 0.4 mg SUBLINGUAL Q5M PRN #30 tab 07/20/20 [Rx] Tamsulosin [Flomax] 0.4 mg PO PC-SUPPER #30 cap.er.24h 07/20/20 [Rx] Budesonide-Formot 160-4.5 Mcg [Symbicort 160-4.5 Mcg Inhaler] 2 puff INHALATION RT-BID 08/21/20 [History] Follow up Appointment(s)/Referral(s): Services,[facility] [NON-STAFF] - As Needed Nik Giron DO [STAFF PHYSICIAN] - 2 Weeks Austin Chowdary PAC [PHYSICIAN PHARMACY TECHNICIAN PER DIEM] - 1 Week (Patient may follow-up with Austin Chowdary PA-C or Dr. Mitul Angeles at [facility] in 1-2 weeks following discharge. ) Fidencio Barrientos MD [Primary Care Provider] - 1-2 days Activity/Diet/Wound Care/Special Instructions: 1. Remain nonambulatory the left lower extremity 2. Avoid excessive activities in regards to the left hip 3. May apply ice over the left hip for comfort support as needed
[2020-08-30 11:01] LABS: Basophils # (A) 0.04 X 10*3/uL (0.00-0.10); Basophils % (A) 0.5 %; Eosinophils % (A) 2.3 %; HCT 27.5 % (39.6-50.0); HGB 8.1 g/dL (13.0-17.0); Lymphocytes # (A) 0.66 X 10*3/uL (0.90-5.00); Lymphocytes % (A) 7.6 %; MCH 25.5 pg (27.0-32.0); MCHC 29.5 g/dL (32.0-37.0); MCV 86.5 fL (80.0-97.0); Monocytes # (A) 0.71 X 10*3/uL (0.20-1.00); Monocytes % (A) 8.2 %; Neutrophils % (A) 80.8 %; Platelet Count 460 X 10*3/uL (140-440); RBC 3.18 X 10*6/uL (4.40-5.60); WBC 8.66 X 10*3/uL (4.50-10.00)
[2020-08-30 11:47] LABS: African American GFR (CKD) 116.4 (60.0-200.0); Albumin/Globulin Ratio 1.3 (1.60-3.17); Anion Gap 4.5 mmol/L (4.00-12.00); BUN/Creat Ratio 33.33 Ratio (12.00-20.00); Calcium 8.2 mg/dL (8.7-10.3); Carbon Dioxide 27.5 mmol/L (21.6-31.8); Globulin 2.3 g/dL (1.6-3.3); Non-African American GFR(CKD) 100.4 (60.0-200.0); Potassium 4.6 mmol/L (3.5-5.5); Total Bilirubin 0.6 mg/dL (0.2-1.2); Total Protein 5.3 g/dL (6.2-8.2)
--- NOTE | 2020-08-30 14:20 | PN ---
PROGRESS NOTE DATE OF SERVICE: 08/30/2020. REASON FOR FOLLOWUP: UTI. INTERVAL HISTORY: The patient is afebrile. The patient is feeling better. Breathing comfortably. Denies having any chest pain, cough, no abdominal pain. Pain to the left hip is currently controlled. PHYSICAL EXAMINATION: Blood pressure 151/71, pulse 83, temperature 98. He is 97% on 3 L nasal cannula. General description is an elderly male up in the bed in no distress. RESPIRATORY SYSTEM: Unlabored breathing, clear to auscultation anteriorly. HEART: S1, S2. Regular rate and rhythm. ABDOMEN: Soft, no tenderness. LABS: Hemoglobin is 8.1, white count 8.66. DIAGNOSTIC IMPRESSION AND PLAN: Patient with fever, source likely urinary tract infection. Repeat urine is positive. Possible Russo catheter associated. May consider course of oral Ceftin on discharge. Continue supportive care. MMODL / IJN: [id number] /
== END 2020-08-30 13:59 | disposition home health service (06) | DRG 535 ==
LOC: EC 19:08 → 4SSUR 20:52
PROVIDERS: ADMIT Internal Medicine; ATTEND Internal Medicine
DX: S72.142A Displaced intertrochanteric fracture of left femur, initial encounter for closed fracture (principal); E43 Unspecified severe protein-calorie malnutrition; N39.0 Urinary tract infection, site not specified; Z68.1 Body mass index [BMI] 19.9 or less, adult; Z89.612 Acquired absence of left leg above knee; I10 Essential (primary) hypertension; E78.5 Hyperlipidemia, unspecified; E11.51 Type 2 diabetes mellitus with diabetic peripheral angiopathy without gangrene; K21.9 Gastro-esophageal reflux disease without esophagitis; J44.9 Chronic obstructive pulmonary disease, unspecified; F32.9 Major depressive disorder, single episode, unspecified; G89.4 Chronic pain syndrome; Z79.84 Long term (current) use of oral hypoglycemic drugs; N40.0 Benign prostatic hyperplasia without lower urinary tract symptoms; F17.200 Nicotine dependence, unspecified, uncomplicated; D64.9 Anemia, unspecified; Z79.82 Long term (current) use of aspirin; Z79.02 Long term (current) use of antithrombotics/antiplatelets; Z99.3 Dependence on wheelchair; I25.2 Old myocardial infarction; M25.571 Pain in right ankle and joints of right foot; Z95.820 Peripheral vascular angioplasty status with implants and grafts; W05.0XXA Fall from non-moving wheelchair, initial encounter; Z80.3 Family history of malignant neoplasm of breast; Z79.51 Long term (current) use of inhaled steroids; I25.10 Atherosclerotic heart disease of native coronary artery without angina pectoris; Z95.5 Presence of coronary angioplasty implant and graft; Z90.79 Acquired absence of other genital organ(s); Z79.899 Other long term (current) drug therapy
CPT/HCPCS: 70450; 71045; 72125; 73502; 80053; 81001; 82272; 82607; 82728; 82746; 83540; 83550; 85025; 85610; 85730; 87040; 87086; 87635; 93923; 94640; 94760; 96374; 96375; 99285

== ENCOUNTER 2021-08-29 03:29 | Inpatient (IN) | payer MEDICARE ==
--- NOTE | 2021-08-29 03:44 | ED ---
Altered Mental Status HPI - General Chief Complaint: Altered Mental Status Stated Complaint: Altered Mental Status Time Seen by Provider: 08/29/21 03:31 Source: patient, RN notes reviewed, old records reviewed Mode of arrival: EMS Limitations: altered mental status, physical limitation - History of Present Illness Initial Comments: This is a 71-year-old male coming in for found down, unknown downtime. Patient was found with significant amount of fentanyl patches on his person. Patient presents to ER for those evaluation. Patient is unresponsiveness patient has no travel history no sick contacts that we know of. No fevers. Patient again is a poor strain history is obtained by EMS patient again was found down with fentanyl patches MD Complaint: altered mental status, confusion, decreased responsiveness, intoxication, weakness -: unknown Severity: severe Consistency of Symptoms: getting worse Context: history of similar presentation Associated Symptoms: weakness Treatments Prior to Arrival: IV fluid, oxygen - Related Data Home Medications Medication Instructions Recorded Confirmed Aspirin 81 mg PO DAILY 01/14/14 08/21/20 DULoxetine HCL [Cymbalta] 60 mg PO W/SUPPER 01/14/14 08/21/20 lisinopriL [Prinivil] 20 mg PO DAILY 01/14/14 08/21/20 metFORMIN HCL [Glucophage] 500 mg PO BID 01/14/14 08/21/20 Escitalopram [Lexapro] 10 mg PO DAILY 06/13/18 08/21/20 Pantoprazole Sodium [Protonix] 40 mg PO DAILY 06/13/18 08/21/20 amLODIPine [Norvasc] 5 mg PO DAILY 06/13/18 08/21/20 Albuterol Inhaler [Ventolin Hfa 2 puff INHALATION RT-QID PRN 07/16/20 08/21/20 Inhaler] Cholecalciferol (Vitamin D3) 250 mcg PO VEE 07/16/20 08/21/20 [Vitamin D3 (5000 Iu)] Enulose 10gm/15ml 20 gm PO Q48H PRN 07/16/20 08/21/20 Multivitamins, Thera [Multivitamin 1 tab PO DAILY 07/16/20 08/21/20 (formulary)] Budesonide-Formot 160-4.5 Mcg 2 puff INHALATION RT-BID 08/21/20 08/21/20 [Symbicort 160-4.5 Mcg Inhaler] Previous Rx's Medication Instructions Recorded Gabapentin [Neurontin] 300 mg PO TID #9 cap 06/17/18 Hydrocodone/Acetaminophen [[place] 1 tab PO Q6H PRN #12 tablet 06/17/18 10-325] fentaNYL 100MCG/HR PATCH 100 mcg TRANSDERM Q72H #1 patch 06/17/18 [Duragesic 100MCG/HR] Atorvastatin [Lipitor] 80 mg PO DAILY #30 tab 07/20/20 Clopidogrel [Plavix] 75 mg PO DAILY #30 tab 07/20/20 Metoprolol Succinate (ER) [Toprol 25 mg PO DAILY #30 tab.er.24h 07/20/20 XL] Nitroglycerin Sl Tabs [Nitrostat] 0.4 mg SUBLINGUAL Q5M PRN #30 tab 07/20/20 Tamsulosin [Flomax] 0.4 mg PO PC-SUPPER #30 cap.er.24h 07/20/20 Cefuroxime [Ceftin] 250 mg PO BID 5 Days #10 tab 08/30/20 Nicotine 14Mg/24Hr Patch [Habitrol] 1 patch TRANSDERM DAILY 30 Days 08/30/20 #30 patch Allergies Allergy/AdvReac Type Severity Reaction Status Date / Time azithromycin [From Zithromax] Allergy Rash/Hives Verified 08/29/21 03:37 Review of Systems ROS Statement: Those systems with pertinent positive or pertinent negative responses have been documented in the HPI. ROS Other: All systems not noted in ROS Statement are negative. 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 knee wound + FOR MRSA. History of high left above-knee amputation done approximately 2009. Last Myocardial Infarction Date:: 2003 History of Any Multi-Drug Resistant Organisms: MRSA Date of last positivie culture/infection: 04/02/16 MDRO Source:: LT KNEE WOUND Past Surgical History: Heart Catheterization With Stent, Orthopedic Surgery Additional Past Surgical History / Comment(s): STENTS TO LEFT GROIN, LEFT BELOW THE KNEE AMPUTATION, unsuccessful revascularization left leg, shoulder surgery, surgical debridement of necrotic tissue left scrotal area, LT AKA 03/03/16. left testicle removed. heart stent x1 Past Anesthesia/Blood Transfusion Reactions: No Reported Reaction Date of Last Stent Placement:: 2006 Past Psychological History: Depression Smoking Status: Current every day smoker Past Alcohol Use History: None Reported Past Drug Use History: Marijuana - Past Family History Sister(s) Family Medical History: Cancer Additional Family Medical History / Comment(s): double mastectomy, still surviving Father Family Medical History: No Reported History Mother Family Medical History: No Reported History Additional Family Medical History / Comment(s): hypoglycemia General Exam Limitations: no limitations General appearance: alert, in no apparent distress Head exam: Present: atraumatic, normocephalic, normal inspection Eye exam: Present: normal appearance, PERRL, EOMI. Absent: scleral icterus, conjunctival injection, periorbital swelling ENT exam: Present: normal exam, mucous membranes moist Neck exam: Present: normal inspection. Absent: tenderness, meningismus, l ymphadenopathy Respiratory exam: Present: normal lung sounds bilaterally. Absent: respiratory distress, wheezes, rales, rhonchi, stridor Cardiovascular Exam: Present: regular rate, normal rhythm, normal heart sounds. Absent: systolic murmur, diastolic murmur, rubs, gallop, clicks GI/Abdominal exam: Present: soft, normal bowel sounds. Absent: distended, tenderness, guarding, rebound, rigid Extremities exam: Present: normal inspection, full ROM, normal capillary refill. Absent: tenderness, pedal edema, joint swelling, calf tenderness Back exam: Present: normal inspection Neurological exam: Present: altered, CN II-XII intact Psychiatric exam: Present: depressed, flat affect Skin exam: Present: warm, dry, intact, normal color. Absent: rash Course Vital Signs 08/29/21 08/29/21 08/29/21 03:31 03:45 04:00 Temperature 97.7 F Pulse Rate 62 69 65 Respiratory 16 12 12 Rate Blood Pressure 102/90 113/56 106/54 O2 Sat by Pulse 100 95 95 Oximetry 08/29/21 04:27 Temperature Pulse Rate Respiratory 12 Rate Blood Pressure O2 Sat by Pulse Oximetry - Reevaluation(s) Reevaluation #1: 08/29/21 05:15 Medical record is reviewed Reevaluation #2: 08/29/21 05:15 Patient has significant response to Narcan here in the ER Reevaluation #3: 08/29/21 05:15 Patient informed results questions are answered - Consultations Consultation #1: Spoke with Dr. barrientos who agrees to admit this patient Medical Decision Making - Medical Decision Making 68 female DF for evaluation patient resents today for evaluation of found down. Patient has unknown downtime. Patient is on multiple fentanyl patches he did respond to Narcan was severely altered on arrival. Significant hematuria and dehydration. Patient will be admitted for further evaluation monitoring. - Lab Data Result diagrams: 08/29/21 03:50 08/29/21 03:50 Lab Results 08/29/21 08/29/21 08/29/21 Range/Units 03:47 03:50 03:50 WBC 8.3 (3.8-10.6) k/uL RBC 4.08 L (4.30-5.90) m/uL Hgb 9.3 L (13.0-17.5) gm/dL Hct 33.1 L (39.0-53.0) % MCV 81.2 (80.0-100.0) fL MCH 22.9 L (25.0-35.0) pg MCHC 28.2 L (31.0-37.0) g/dL RDW 18.5 H (11.5-15.5) % Plt Count 369 (150-450) k/uL MPV 8.2 Neutrophils % 82 % Lymphocytes % 9 % Monocytes % 6 % Eosinophils % 2 % Basophils % 0 % Neutrophils # 6.8 (1.3-7.7) k/uL Lymphocytes # 0.7 L (1.0-4.8) k/uL Monocytes # 0.5 (0-1.0) k/uL Eosinophils # 0.2 (0-0.7) k/uL Basophils # 0.0 (0-0.2) k/uL Hypochromasia Marked Anisocytosis Slight Microcytosis Slight PT 10.8 (9.0-12.0) sec INR 1.0 (<1.2) APTT 23.9 (22.0-30.0) sec Sodium (137-145) mmol/L Potassium (3.5-5.1) mmol/L Chloride (98-107) mmol/L Carbon Dioxide (22-30) mmol/L Anion Gap mmol/L BUN (9-20) mg/dL Creatinine (0.66-1.25) mg/dL Est GFR (CKD-EPI)AfAm (>60 ml/min/1.73 sqM) Est GFR (CKD-EPI)NonAf (>60 ml/min/1.73 sqM) Glucose (74-99) mg/dL POC Glucose (mg/dL) 127 H (75-99) mg/dL POC Glu Circular Clerk ID Rosario Paige Calcium (8.4-10.2) mg/dL Phosphorus (2.5-4.5) mg/dL Magnesium (1.6-2.3) mg/dL Total Bilirubin (0.2-1.3) mg/dL AST (17-59) U/L ALT (4-49) U/L Alkaline Phosphatase (38-126) U/L Ammonia (<30) umol/L Creatine Kinase (55-170) U/L Troponin I (0.000-0.034) ng/mL Total Protein (6.3-8.2) g/dL Albumin (3.5-5.0) g/dL Urine Color Urine Appearance (Clear) Urine pH (5.0-8.0) Ur Specific [place] (1.001-1.035) Urine Protein (Negative) Urine Glucose (UA) (Negative) Urine Ketones (Negative) Urine Blood (Negative) Urine Nitrite (Negative) Urine Bilirubin (Negative) Urine Urobilinogen (<2.0) mg/dL Ur Leukocyte Esterase (Negative) Urine RBC (0-5) /hpf Urine WBC (0-5) /hpf Urine Bacteria (None) /hpf Hyaline Casts (0-2) /lpf Urine Mucus (None) /hpf Urine Opiates Screen (NotDetected) Ur Oxycodone Screen (NotDetected) Urine Methadone Screen (NotDetected) Ur Propoxyphene Screen (NotDetected) Ur Barbiturates Screen (NotDetected) U Tricyclic Antidepress (NotDetected) Ur Phencyclidine Scrn (NotDetected) Ur Amphetamines Screen (NotDetected) U Methamphetamines Scrn (NotDetected) U Benzodiazepines Scrn (NotDetected) Urine Cocaine Screen (NotDetected) U Marijuana (THC) Screen (NotDetected) Serum Alcohol mg/dL 08/29/21 08/29/21 08/29/21 Range/Units 03:50 03:50 03:50 WBC (3.8-10.6) k/uL RBC (4.30-5.90) m/uL Hgb (13.0-17.5) gm/dL Hct (39.0-53.0) % MCV (80.0-100.0) fL MCH (25.0-35.0) pg MCHC (31.0-37.0) g/dL RDW (11.5-15.5) % Plt Count (150-450) k/uL MPV Neutrophils % % Lymphocytes % % Monocytes % % Eosinophils % % Basophils % % Neutrophils # (1.3-7.7) k/uL Lymphocytes # (1.0-4.8) k/uL Monocytes # (0-1.0) k/uL Eosinophils # (0-0.7) k/uL Basophils # (0-0.2) k/uL Hypochromasia Anisocytosis Microcytosis PT (9.0-12.0) sec INR (<1.2) APTT (22.0-30.0) sec Sodium 141 (137-145) mmol/L Potassium 4.3 (3.5-5.1) mmol/L Chloride 108 H (98-107) mmol/L Carbon Dioxide 28 (22-30) mmol/L Anion Gap 5 mmol/L BUN 49 H (9-20) mg/dL Creatinine 0.98 (0.66-1.25) mg/dL Est GFR (CKD-EPI)AfAm 89 (>60 ml/min/1.73 sqM) Est GFR (CKD-EPI)NonAf 77 (>60 ml/min/1.73 sqM) Glucose 107 H (74-99) mg/dL POC Glucose (mg/dL) (75-99) mg/dL POC Glu Circular Clerk ID Calcium 8.1 L (8.4-10.2) mg/dL Phosphorus 3.9 (2.5-4.5) mg/dL Magnesium 2.1 (1.6-2.3) mg/dL Total Bilirubin 0.2 (0.2-1.3) mg/dL AST 22 (17-59) U/L ALT 20 (4-49) U/L Alkaline Phosphatase 74 (38-126) U/L Ammonia <9 (<30) umol/L Creatine Kinase (55-170) U/L Troponin I (0.000-0.034) ng/mL Total Protein 5.2 L (6.3-8.2) g/dL Albumin 2.8 L (3.5-5.0) g/dL Urine Color Red Urine Appearance Turbid (Clear) Urine pH 5.5 (5.0-8.0) Ur Specific [place] 1.023 (1.001-1.035) Urine Protein 1+ H (Negative) Urine Glucose (UA) Negative (Negative) Urine Ketones Negative (Negative) Urine Blood Large H (Negative) Urine Nitrite Negative (Negative) Urine Bilirubin Negative (Negative) Urine Urobilinogen 3.0 (<2.0) mg/dL Ur Leukocyte Esterase Trace H (Negative) Urine RBC >182 H (0-5) /hpf Urine WBC 6 H (0-5) /hpf Urine Bacteria Few H (None) /hpf Hyaline Casts 9 H (0-2) /lpf Urine Mucus Occasional H (None) /hpf Urine Opiates Screen Detected H (NotDetected) Ur Oxycodone Screen Not Detected (NotDetected) Urine Methadone Screen Not Detected (NotDetected) Ur Propoxyphene Screen Not Detected (NotDetected) Ur Barbiturates Screen Not Detected (NotDetected) U Tricyclic Antidepress Not Detected (NotDetected) Ur Phencyclidine Scrn Not Detected (NotDetected) Ur Amphetamines Screen Not Detected (NotDetected) U Methamphetamines Scrn Not Detected (NotDetected) U Benzodiazepines Scrn Not Detected (NotDetected) Urine Cocaine Screen Not Detected (NotDetected) U Marijuana (THC) Screen Detected H (NotDetected) Serum Alcohol <10 mg/dL 08/29/21 08/29/21 Range/Units 03:50 03:50 WBC (3.8-10.6) k/uL RBC (4.30-5.90) m/uL Hgb (13.0-17.5) gm/dL Hct (39.0-53.0) % MCV (80.0-100.0) fL MCH (25.0-35.0) pg MCHC (31.0-37.0) g/dL RDW (11.5-15.5) % Plt Count (150-450) k/uL MPV Neutrophils % % Lymphocytes % % Monocytes % % Eosinophils % % Basophils % % Neutrophils # (1.3-7.7) k/uL Lymphocytes # (1.0-4.8) k/uL Monocytes # (0-1.0) k/uL Eosinophils # (0-0.7) k/uL Basophils # (0-0.2) k/uL Hypochromasia Anisocytosis Microcytosis PT (9.0-12.0) sec INR (<1.2) APTT (22.0-30.0) sec Sodium (137-145) mmol/L Potassium (3.5-5.1) mmol/L Chloride (98-107) mmol/L Carbon Dioxide (22-30) mmol/L Anion Gap mmol/L BUN (9-20) mg/dL Creatinine (0.66-1.25) mg/dL Est GFR (CKD-EPI)AfAm (>60 ml/min/1.73 sqM) Est GFR (CKD-EPI)NonAf (>60 ml/min/1.73 sqM) Glucose (74-99) mg/dL POC Glucose (mg/dL) (75-99) mg/dL POC Glu Circular Clerk ID Calcium (8.4-10.2) mg/dL Phosphorus (2.5-4.5) mg/dL Magnesium (1.6-2.3) mg/dL Total Bilirubin (0.2-1.3) mg/dL AST (17-59) U/L ALT (4-49) U/L Alkaline Phosphatase (38-126) U/L Ammonia (<30) umol/L Creatine Kinase 81 (55-170) U/L Troponin I <0.012 (0.000-0.034) ng/mL Total Protein (6.3-8.2) g/dL Albumin (3.5-5.0) g/dL Urine Color Urine Appearance (Clear) Urine pH (5.0-8.0) Ur Specific [place] (1.001-1.035) Urine Protein (Negative) Urine Glucose (UA) (Negative) Urine Ketones (Negative) Urine Blood (Negative) Urine Nitrite (Negative) Urine Bilirubin (Negative) Urine Urobilinogen (<2.0) mg/dL Ur Leukocyte Esterase (Negative) Urine RBC (0-5) /hpf Urine WBC (0-5) /hpf Urine Bacteria (None) /hpf Hyaline Casts (0-2) /lpf Urine Mucus (None) /hpf Urine Opiates Screen (NotDetected) Ur Oxycodone Screen (NotDetected) Urine Methadone Screen (NotDetected) Ur Propoxyphene Screen (NotDetected) Ur Barbiturates Screen (NotDetected) U Tricyclic Antidepress (NotDetected) Ur Phencyclidine Scrn (NotDetected) Ur Amphetamines Screen (NotDetected) U Methamphetamines Scrn (NotDetected) U Benzodiazepines Scrn (NotDetected) Urine Cocaine Screen (NotDetected) U Marijuana (THC) Screen (NotDetected) Serum Alcohol mg/dL - EKG Data -: EKG Interpreted by Me (EKG sinus 60 ND 176 QRS 97 QTc 451) - Radiology Data Radiology results: report reviewed (CT brain chest and pelvis x-ray negative for traumatic injury), image reviewed Disposition Clinical Impression: Mechanical back pain, Back pain, Altered mental status, Fall, Weakness Disposition: ADMITTED IP TO THIS [facility] Condition: Good Is patient prescribed a controlled substance at d/c from ED?: No Referrals: Fidencio Barrientos MD [Primary Care Provider] - 1-2 days
[2021-08-29] MEDS ORDERED: SODIUM CHLORIDE 0.9% 1,000 ML IV ONE (03:47)
[2021-08-29 03:48] LABS: Glucose,Whole Blood 127 mg/dL (75-99)
[2021-08-29 04:06] LABS: Anisocytosis Slight; Basophils % (A) 0 %; Eosinophils # (A) 0.2 k/uL (0-0.7); Eosinophils % (A) 2 %; HCT 33.1 % (39.0-53.0); HGB 9.3 gm/dL (13.0-17.5); Hypochromasia Marked; Lymphocytes # (A) 0.7 k/uL (1.0-4.8); Lymphocytes % (A) 9 %; MCH 22.9 pg (25.0-35.0); MCHC 28.2 g/dL (31.0-37.0); MCV 81.2 fL (80.0-100.0); Mean Platelet Volume 8.2; Microcytosis Slight; Monocytes # (A) 0.5 k/uL (0-1.0); Monocytes % (A) 6 %; Neutrophils # (A) 6.8 k/uL (1.3-7.7); Neutrophils % (A) 82 %; Platelet Count 369 k/uL (150-450); RBC 4.08 m/uL (4.30-5.90); RDW 18.5 % (11.5-15.5); WBC 8.3 k/uL (3.8-10.6)
[2021-08-29] MEDS ORDERED: SODIUM CHLORIDE 0.9% 500 ML 500 ML IV STA (04:06)
[2021-08-29] MEDS ORDERED: NALOXONE 0.4 MG/ML 1 ML VIAL IVP STA (04:06)
[2021-08-29] MEDS ORDERED: SODIUM CHLORIDE 0.9% 1,000 ML IV STA (04:06)
--- NOTE | 2021-08-29 04:14 | CT ---
EXAMINATION TYPE: CT brain wo con DATE OF EXAM: 08/29/2021 COMPARISON: 08/21/2020 HISTORY: pts poor historian, says he started not acting right last night at 2300 and having trem ors & hasnt been feeling well x4days. unresponsive/ams, unable to follow instructions/hold still CT DLP: 1172.9 mGycm Automated exposure control for dose reduction was used. There is cerebral cortical atrophy. There is no mass effect or midline shift. No sign of intracranial hemorrhage. The calvarium is intact. IMPRESSION: Mild cerebral atrophy. No acute intracranial abnormality. No change.
[2021-08-29 04:20] LABS: ALT 20 U/L (4-49); AST 22 U/L (17-59); African American GFR (CKD) 89 (>60 ml/min/1.73 sqM); Albumin 2.8 g/dL (3.5-5.0); Alcohol <10 mg/dL; Alkaline Phosphatase 74 U/L (38-126); Anion Gap 5 mmol/L; Appearance,Urine Turbid (Clear); Bacteria,Urine Few /hpf; Bilirubin,Urine Negative (Negative); Blood Urea Nitrogen 49 mg/dL (9-20); Blood,Urine Large (Negative); Calcium 8.1 mg/dL (8.4-10.2); Carbon Dioxide 28 mmol/L (22-30); Chloride 108 mmol/L (98-107); Color,Urine Red; Glucose 107 mg/dL (74-99); Glucose,Urine (UA) Negative (Negative); Hyaline Casts,Urine 9 /lpf (0-2); Ketones,Urine Negative (Negative); Leukocyte Esterase,Urine Trace (Negative); Magnesium 2.1 mg/dL (1.6-2.3); Mucus,Urine Occasional /hpf; Nitrite,Urine Negative (Negative); Non-African American GFR(CKD) 77 (>60 ml/min/1.73 sqM); PH, Urine 5.5 (5.0-8.0); Partial Thromboplastin Time 23.9 sec (22.0-30.0); Phosphorus 3.9 mg/dL (2.5-4.5); Potassium 4.3 mmol/L (3.5-5.1); Protein,Urine 1+ (Negative); Prothrombin Time 10.8 sec (9.0-12.0); RBC,Urine >182 /hpf (0-5); Sodium 141 mmol/L (137-145); Specific Gravity,Urine 1.023 (1.001-1.035); Total Bilirubin 0.2 mg/dL (0.2-1.3); Total Protein 5.2 g/dL (6.3-8.2); WBC,Urine 6 /hpf (0-5)
[2021-08-29 04:29] LABS: Amphetamine Screen,Urine Not Detected (NotDetected); Barbiturate Screen,Urine Not Detected (NotDetected); Benzodiazepines Screen,Urine Not Detected (NotDetected); Cocaine Screen,Urine Not Detected (NotDetected); Methadone Screen, Urine Not Detected (NotDetected); Opiate Screen,Urine Detected (NotDetected); Oxycodone Screen, Urine Not Detected (NotDetected); Phencyclidine Screen,Urine Not Detected (NotDetected); Tricyclic Antidepressant,Urine Not Detected (NotDetected); Urn Cannabinoid Scrn Detected (NotDetected)
[2021-08-29] MEDS ORDERED: NALOXONE 0.4 MG/ML 1 ML VIAL IV PRN (05:12)
[2021-08-29] MEDS ORDERED: ONDANSETRON 4 MG/2 ML VIAL IVP PRN (05:12)
[2021-08-29] MEDS ORDERED: LORazepam 2 MG/ML INJ IV PRN (05:52)
[2021-08-29] MEDS ORDERED: HYDROmorphone 1 MG/ML 1 ML SYRINGE IVP STA (05:52)
[2021-08-29] MEDS ORDERED: LORazepam 2 MG/ML INJ IV STA (05:52)
[2021-08-29] MEDS: SODIUM CHLORIDE 0.9% 1,000 ML IV SCH ×3 (06:20→22:40)
--- NOTE | 2021-08-29 07:33 | XR ---
EXAMINATION TYPE: XR chest 1V portable DATE OF EXAM: 08/29/2021 CLINICAL HISTORY: Fall with pain. TECHNIQUE: Single AP portable supine view of the chest is obtained. COMPARISON: Chest x-ray from August 23, 2020 FINDINGS: Degenerative change bilateral glenohumeral joints redemonstrated. Chronic changes with inc reased opacity in the upper to mid right lung. Mild interstitial prominence in the periphery or Kerle y B lines are present. Cardiac silhouette size mildly enlarged. IMPRESSION: Mild cardiomegaly with mild interstitial edema. Correlate for CHF exacerbation. Developin g right upper lung infiltrate cannot be excluded.
--- NOTE | 2021-08-29 07:35 | XR ---
EXAMINATION TYPE: XR pelvis AP view DATE OF EXAM: 08/29/2021 CLINICAL HISTORY: Fall injury with pain TECHNIQUE: A single AP view of the pelvis is obtained. COMPARISON: Pelvic x-ray 8 days ago. FINDINGS: [place] osseous structures are demineralized which is noted to lower radiographic sensitivit y. Amputation defect proximal diaphyseal level left femur redemonstrated. There is impacted comminute d intertrochanteric fracture redemonstrated. No hip joint dislocation. Moderate to severe axial joint space loss left hip redemonstrated. Mild to moderate axial joint space loss right hip. Pubic symphys is is intact. New bladder catheter noted. Left sided iliac stent graft redemonstrated. IMPRESSION: As above. No new acute displaced fracture is seen.
[2021-08-29] MEDS ORDERED: ALBUTEROL HFA INHALER INHALATION PRN (11:19)
--- NOTE | 2021-08-29 11:34 | P.HPIM ---
History of Present Illness H&P Date: 08/29/21 Chief Complaint: Altered mental status This is a 71-year-old male patient who presented to the ER with concerns about mental status changes. According to ER record patient was found down unknown downtime with a significant amount of fentanyl patches on body. Patient has me dical history of COPD, diabetes mellitus, hypertension, myocardial infarction osteoarthritis of vascular disease. Head CT was completed showing mild cerebral atrophy no acute intracranial abnormality no change. Chest x-ray completed showing mild cardiomegaly with mild interstitial edema correlate for CHF exacerbation developing right upper lung infiltrate cannot be excluded. Pelvis x-ray completed showing no new acute displaced fracture seen. UA completed showing large amount of blood and trace amount of leukocyte Estrace. Patient started on Rocephin. Upon exam patient remains in ER quite lethargic on 4 L nasal cannula. Bilateral legs appear red possible cellulitis. Patient started on Rocephin. Will consult pulmonary services for possible pneumonia repeat 2 view chest x-ray. 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 knee wound + FOR MRSA. History of high left above-knee amputation done approximately 2009. Last Myocardial Infarction Date:: 2003 History of Any Multi-Drug Resistant Organisms: MRSA Date of last positivie culture/infection: 04/02/16 MDRO Source:: LT KNEE WOUND Past Surgical History: Heart Catheterization With Stent, Orthopedic Surgery Additional Past Surgical History / Comment(s): STENTS TO LEFT GROIN, LEFT BELOW THE KNEE AMPUTATION, unsuccessful revascularization left leg, shoulder surgery, surgical debridement of necrotic tissue left scrotal area, LT AKA 03/03/16. left testicle removed. heart stent x1 Past Anesthesia/Blood Transfusion Reactions: No Reported Reaction Date of Last Stent Placement:: 2006 Past Psychological History: Depression Smoking Status: Current every day smoker Past Alcohol Use History: None Reported Past Drug Use History: Marijuana - Past Family History Sister(s) Family Medical History: Cancer Additional Family Medical History / Comment(s): double mastectomy, still surviving Father Family Medical History: No Reported History Mother Family Medical History: No Reported History Additional Family Medical History / Comment(s): hypoglycemia Medications and Allergies Home Medications Medication Instructions Recorded Confirmed Type Aspirin 81 mg PO DAILY 01/14/14 08/29/21 History DULoxetine HCL [Cymbalta] 60 mg PO DAILY 01/14/14 08/29/21 History lisinopriL [Prinivil] 20 mg PO DAILY 01/14/14 08/29/21 History Escitalopram [Lexapro] 10 mg PO DAILY 06/13/18 08/29/21 History Pantoprazole Sodium [Protonix] 40 mg PO DAILY 06/13/18 08/29/21 History amLODIPine [Norvasc] 5 mg PO DAILY 06/13/18 08/29/21 History Gabapentin [Neurontin] 300 mg PO TID #9 cap 06/17/18 08/29/21 Rx Hydrocodone/Acetaminophen [[place] 1 tab PO Q6H PRN #12 tablet 06/17/18 08/29/21 Rx 10-325] fentaNYL 100MCG/HR PATCH 100 mcg TRANSDERM Q72H #1 patch 06/17/18 08/29/21 Rx [Duragesic 100MCG/HR] Enulose 10gm/15ml 20 gm PO Q48H PRN 07/16/20 08/29/21 History Multivitamins, Thera [Multivitamin 1 tab PO DAILY 07/16/20 08/29/21 History (formulary)] Atorvastatin [Lipitor] 80 mg PO DAILY #30 tab 07/20/20 08/29/21 Rx Metoprolol Succinate (ER) [Toprol 25 mg PO DAILY #30 tab.er.24h 07/20/20 08/29/21 Rx XL] Nitroglycerin Sl Tabs [Nitrostat] 0.4 mg SUBLINGUAL Q5M PRN #30 tab 07/20/20 08/29/21 Rx Budesonide-Formot 160-4.5 Mcg 2 puff INHALATION RT-BID 08/21/20 08/29/21 History [Symbicort 160-4.5 Mcg Inhaler] Albuterol Sulfate [Proair Hfa] 2 puff INHALATION RT-QID PRN 08/29/21 08/29/21 History Naloxone [Narcan] 1 mg SQ ONCE PRN 08/29/21 08/29/21 History Tamsulosin [Flomax] 0.4 mg PO DAILY 08/29/21 08/29/21 History Terbinafine [LamISIL] 250 mg PO DAILY 08/29/21 08/29/21 History Allergies Allergy/AdvReac Type Severity Reaction Status Date / Time azithromycin [From Zithromax] Allergy Rash/Hives Verified 08/29/21 10:52 Physical Exam Vitals: Vital Signs Temp Pulse Resp BP Pulse Ox 08/29/21 07:30 77 28 H 120/63 92 L 08/29/21 07:05 84 16 122/69 94 L 08/29/21 07:00 80 15 124/68 76 L 08/29/21 06:30 94 30 H 130/81 97 08/29/21 06:21 82 24 130/81 93 L 08/29/21 06:12 92 24 109/58 95 08/29/21 06:00 25 H 08/29/21 05:47 92 L 08/29/21 05:30 95 23 143/84 08/29/21 04:30 116/61 08/29/21 04:27 12 08/29/21 04:00 65 12 113/56 95 08/29/21 03:51 54 L 20 97 08/29/21 03:45 69 12 113/56 95 08/29/21 03:31 97.7 F 62 16 102/90 100 Intake and Output 08/28/21 08/29/21 08/29/21 22:59 06:59 14:59 Other: Weight 55.701 kg Head normocephalic Neck supple Lungs clear to auscultation bilaterally no wheezing or crackles Heart regular rate and rhythm S1-S2, no rub or gallop Abdomen is soft nontender nondistended positive bowel sounds no hepatosplenomegaly Extremities no edema Neuro lethargic Results CBC & Chem 7: 08/29/21 03:50 08/29/21 03:50 Labs: Abnormal Lab Results - Last 24 Hours (Table) 08/29/21 08/29/21 08/29/21 Range/Units 03:47 03:50 03:50 RBC 4.08 L (4.30-5.90) m/uL Hgb 9.3 L (13.0-17.5) gm/dL Hct 33.1 L (39.0-53.0) % MCH 22.9 L (25.0-35.0) pg MCHC 28.2 L (31.0-37.0) g/dL RDW 18.5 H (11.5-15.5) % Lymphocytes # 0.7 L (1.0-4.8) k/uL Chloride (98-107) mmol/L BUN (9-20) mg/dL Glucose (74-99) mg/dL POC Glucose (mg/dL) 127 H (75-99) mg/dL Calcium (8.4-10.2) mg/dL CK-MB (CK-2) (0.0-2.4) ng/mL Total Protein (6.3-8.2) g/dL Albumin (3.5-5.0) g/dL Urine Protein 1+ H (Negative) Urine Blood Large H (Negative) Ur Leukocyte Esterase Trace H (Negative) Urine RBC >182 H (0-5) /hpf Urine WBC 6 H (0-5) /hpf Urine Bacteria Few H (None) /hpf Hyaline Casts 9 H (0-2) /lpf Urine Mucus Occasional H (None) /hpf Urine Opiates Screen Detected H (NotDetected) U Marijuana (THC) Screen Detected H (NotDetected) 08/29/21 08/29/21 Range/Units 03:50 03:50 RBC (4.30-5.90) m/uL Hgb (13.0-17.5) gm/dL Hct (39.0-53.0) % MCH (25.0-35.0) pg MCHC (31.0-37.0) g/dL RDW (11.5-15.5) % Lymphocytes # (1.0-4.8) k/uL Chloride 108 H (98-107) mmol/L BUN 49 H (9-20) mg/dL Glucose 107 H (74-99) mg/dL POC Glucose (mg/dL) (75-99) mg/dL Calcium 8.1 L (8.4-10.2) mg/dL CK-MB (CK-2) 3.3 H (0.0-2.4) ng/mL Total Protein 5.2 L (6.3-8.2) g/dL Albumin 2.8 L (3.5-5.0) g/dL Urine Protein (Negative) Urine Blood (Negative) Ur Leukocyte Esterase (Negative) Urine RBC (0-5) /hpf Urine WBC (0-5) /hpf Urine Bacteria (None) /hpf Hyaline Casts (0-2) /lpf Urine Mucus (None) /hpf Urine Opiates Screen (NotDetected) U Marijuana (THC) Screen (NotDetected) Assessment and Plan Assessment: 1. Altered mental status changes secondary to opiate overdose with multiple fentenyl patches on body according to ER report 2. Hematuria and urinary tract infection. Patient will be started on Rocephin 3. Possible pneumonia. Patient started on IV antibiotics pulmonary service is consulted repeat two-view chest x-ray ordered 4. Cellulitis of lower extremities. Infectious disease services also consulted. 5. History of COPD 6. Underlying history of essential hypertension 7. Underlying history of hyperlipidemia 8. Underlying history of depression 9. Underlying chronic pain syndrome 10. Underlying history of GERD 11. Underlying history of peripheral vascular disease DVT prophylaxis SCDs at this time due to hematuria and anemia. GI prophylaxis Protonix Pulmonary and infectious disease service is consulted Patient started on IV Rocephin Urine, blood and sputum cultures ordered Repeat chest x-ray ordered Repeat labs ordered Time with Patient: Greater than 30 (Greater than 60% of the total time spent in counseling and coordination of care)
--- NOTE | 2021-08-29 11:58 | XR ---
EXAMINATION TYPE: XR chest 1V DATE OF EXAM: 08/29/2021 COMPARISON: 08/29/2021 HISTORY: Pain TECHNIQUE: Single frontal view of the chest is obtained. FINDINGS: Degenerative change bilateral glenohumeral joints redemonstrated. Chronic changes with inc reased opacity in the upper to mid right lung. Mild interstitial prominence in the periphery or Kerle y B lines are present. Cardiac silhouette size mildly enlarged. Somewhat irregular density right uppe r lobe. Diffuse osteopenia and arthropathy of the shoulders. Biapical IMPRESSION: 1. Cardiomegaly with COPD. Diffuse interstitial pattern stable. Correlate for chronic interstitial holden ng disease, interstitial pneumonitis or congestion. Irregular density right upper lobe could be on th e basis of infiltrate or neoplasm.
[2021-08-29 12:19] LABS: Allen Test Performed? Yes
[2021-08-29 12:24] LABS: ABG HCO3 27 mmol/L (21-25); ABG Oxygen Saturation 94.3 % (94-97); ABG PCO2 63 mmHg (35-45); ABG PH 7.23 (7.35-7.45); ABG PO2 86 mmHg (83-108); ABG TCO2 28 mmol/L (19-24)
[2021-08-29] MEDS: PIPERACILLIN-TAZOBACTAM 3.375 GM in SODIUM CHLORIDE 0.9% 100 ML IVPB SCH ×2 (12:40→22:40)
[2021-08-29] MEDS: IPRATROPIUM-ALBUTEROL 3 ML NEB INHALATION SCH ×3 (12:51→19:24)
--- NOTE | 2021-08-29 12:56 | P.CNPUL ---
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 Patient was found down with unknown downtime. He was found was significant amount of fentanyl pat ches on, unresponsive, and unable to provide any history. Brain CT shows no acute intracranial abnormality. Chest x-ray showed mild cardiomegaly with mild interstitial edema and developing right upper lobe infiltrate. Pelvis x-ray was obtained related to a fall with possibility of injury, showing no acute displaced fracture. Lab work showed white blood cell count of 8.3, hemoglobin of 9.3, INR is 1.0, BUN of 49, creatinine 0.98, electrolytes were unremarkable, LFTs were within normal limits, ammonia level was less than 9, CK-MB was 3.3, troponin was less than 0.012, urinalysis showed large amount of blood, trace leukocyte esterase, 6 white blood cells, no clear evidence of urinary tract infection. Urine drug screen was positive for opiates, and marijuana, serum alcohol level was less than 10. Patient was started on antibiotics, breathing treatments, he was given 2-1/2 L of fluid boluses, and his IV fluids are infusing at a rate of 130 ml. Review of Systems ROS unobtainable: due to mental status All systems: negative Constitutional: Denies chills, Denies fever Eyes: denies blurred vision, denies pain Ears, nose, mouth and throat: Denies headache, Denies sore throat Cardiovascular: Denies chest pain, Denies shortness of breath Respiratory: Reports congestion, Reports cough, Reports dyspnea Gastrointestinal: Denies abdominal pain, Denies diarrhea, Denies nausea, Denies vomiting Musculoskeletal: Denies myalgias Integumentary: Denies pruritus, Denies rash Neurological: Reports change in mentation, Denies numbness, Denies weakness Psychiatric: Denies anxiety, Denies depression Endocrine: Denies fatigue, Denies weight change Past Medical History Past Medical History: COPD, Diabetes Mellitus, Hypertension, Myocardial Infarction ([place]), Osteoarthritis (OA), Vascular Disorder Additional Past Medical History / Comment(s): hx migraines, hx shingles, 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 knee wound + FOR MRSA. History of high left above-knee amputation done approximately 2009. Last Myocardial Infarction Date:: 2003 History of Any Multi-Drug Resistant Organisms: MRSA Date of last positivie culture/infection: 04/02/16 MDRO Source:: LT KNEE WOUND Past Surgical History: Heart Catheterization With Stent, Orthopedic Surgery Additional Past Surgical History / Comment(s): STENTS TO LEFT GROIN, LEFT BELOW THE KNEE AMPUTATION, unsuccessful revascularization left leg, shoulder surgery, surgical debridement of necrotic tissue left scrotal area, LT AKA 03/03/16. left testicle removed. heart stent x1 Past Anesthesia/Blood Transfusion Reactions: No Reported Reaction Date of Last Stent Placement:: 2006 Past Psychological History: Depression Smoking Status: Current every day smoker Past Alcohol Use History: None Reported Past Drug Use History: Marijuana - Past Family History Sister(s) Family Medical History: Cancer Additional Family Medical History / Comment(s): double mastectomy, still surviving Father Family Medical History: No Reported History Mother Family Medical History: No Reported History Additional Family Medical History / Comment(s): hypoglycemia Medications and Allergies Home Medications Medication Instructions Recorded Confirmed Type Aspirin 81 mg PO DAILY 01/14/14 08/29/21 History DULoxetine HCL [Cymbalta] 60 mg PO DAILY 01/14/14 08/29/21 History lisinopriL [Prinivil] 20 mg PO DAILY 01/14/14 08/29/21 History Escitalopram [Lexapro] 10 mg PO DAILY 06/13/18 08/29/21 History Pantoprazole Sodium [Protonix] 40 mg PO DAILY 06/13/18 08/29/21 History amLODIPine [Norvasc] 5 mg PO DAILY 06/13/18 08/29/21 History Gabapentin [Neurontin] 300 mg PO TID #9 cap 06/17/18 08/29/21 Rx Hydrocodone/Acetaminophen [[place] 1 tab PO Q6H PRN #12 tablet 06/17/18 08/29/21 Rx 10-325] fentaNYL 100MCG/HR PATCH 100 mcg TRANSDERM Q72H #1 patch 06/17/18 08/29/21 Rx [Duragesic 100MCG/HR] Enulose 10gm/15ml 20 gm PO Q48H PRN 07/16/20 08/29/21 History Multivitamins, Thera [Multivitamin 1 tab PO DAILY 07/16/20 08/29/21 History (formulary)] Atorvastatin [Lipitor] 80 mg PO DAILY #30 tab 07/20/20 08/29/21 Rx Metoprolol Succinate (ER) [Toprol 25 mg PO DAILY #30 tab.er.24h 07/20/20 08/29/21 Rx XL] Nitroglycerin Sl Tabs [Nitrostat] 0.4 mg SUBLINGUAL Q5M PRN #30 tab 07/20/20 08/29/21 Rx Budesonide-Formot 160-4.5 Mcg 2 puff INHALATION RT-BID 08/21/20 08/29/21 History [Symbicort 160-4.5 Mcg Inhaler] Albuterol Sulfate [Proair Hfa] 2 puff INHALATION RT-QID PRN 08/29/21 08/29/21 History Naloxone [Narcan] 1 mg SQ ONCE PRN 08/29/21 08/29/21 History Tamsulosin [Flomax] 0.4 mg PO DAILY 08/29/21 08/29/21 History Terbinafine [LamISIL] 250 mg PO DAILY 08/29/21 08/29/21 History Allergies Allergy/AdvReac Type Severity Reaction Status Date / Time azithromycin [From Zithromax] Allergy Rash/Hives Verified 08/29/21 10:52 Physical Exam Vitals: Vital Signs Temp Pulse Resp BP Pulse Ox 08/29/21 12:24 76 18 147/66 94 L 08/29/21 07:30 77 28 H 120/63 92 L 08/29/21 07:05 84 16 122/69 94 L 08/29/21 07:00 80 15 124/68 76 L 08/29/21 06:30 94 30 H 130/81 97 08/29/21 06:21 82 24 130/81 93 L 08/29/21 06:12 92 24 109/58 95 08/29/21 06:00 25 H 08/29/21 05:47 92 L 08/29/21 05:30 95 23 143/84 08/29/21 04:30 116/61 08/29/21 04:27 12 08/29/21 04:00 65 12 113/56 95 08/29/21 03:51 54 L 20 97 08/29/21 03:45 69 12 113/56 95 08/29/21 03:31 97.7 F 62 16 102/90 100 Intake and Output 08/28/21 08/29/21 08/29/21 22:59 06:59 14:59 Other: Weight 55.701 kg GENERAL EXAM: Lethargic 71-year-old white male, in the emergency room on the [facility], on Wednesday half liters of oxygen with pulse ox of 94%, congested, comfortable in no apparent distress. HEAD: Normocephalic/atraumatic. EYES: Normal reaction of pupils, equal size. Conjunctiva pink, sclera white. NOSE: Clear with pink turbinates. THROAT: No erythema or exudates. NECK: No masses, no JVD, no thyroid enlargement, no adenopathy. CHEST: No chest wall deformity. Symmetrical expansion. LUNGS: Equal air entry with diffuse wheezes and rhonchi CVS: Regular rate and rhythm, normal S1 and S2, no gallops, no murmurs, no rubs ABDOMEN: Soft, nontender. No hepatosplenomegaly, normal bowel sounds, no guarding or rigidity. EXTREMITIES: No clubbing, no edema, no cyanosis, 2+ pulses and upper and lower extremities. Left znfap-kkl-hkuw amputee MUSCULOSKELETAL: Muscle strength and tone normal. SPINE: No scoliosis or deformity SKIN: No rashes CENTRAL NERVOUS SYSTEM: Lethargic, unable to assess No focal deficits, tone is normal in all 4 extremities. Results - Laboratory Findings CBC and BMP: 08/29/21 03:50 08/29/21 03:50 ABG ABG pH 7.23 (7.35-7.45) L 08/29/21 12:14 ABG pCO2 63 mmHg (35-45) H 08/29/21 12:14 ABG pO2 86 mmHg (83-108) 08/29/21 12:14 ABG O2 Saturation 94.3 % (94-97) 08/29/21 12:14 PT/INR, D-dimer PT 10.8 sec (9.0-12.0) 08/29/21 03:50 INR 1.0 (<1.2) 08/29/21 03:50 Abnormal lab findings: Abnormal Labs 08/29/21 08/29/21 08/29/21 03:47 03:50 03:50 RBC 4.08 L Hgb 9.3 L Hct 33.1 L MCH 22.9 L MCHC 28.2 L RDW 18.5 H Lymphocytes # 0.7 L ABG pH ABG pCO2 ABG HCO3 ABG Total CO2 Chloride BUN Glucose POC Glucose (mg/dL) 127 H Calcium CK-MB (CK-2) Total Protein Albumin Urine Protein 1+ H Urine Blood Large H Ur Leukocyte Esterase Trace H Urine RBC >182 H Urine WBC 6 H Urine Bacteria Few H Hyaline Casts 9 H Urine Mucus Occasional H Urine Opiates Screen Detected H U Marijuana (THC) Screen Detected H 08/29/21 08/29/21 08/29/21 03:50 03:50 12:14 RBC Hgb Hct MCH MCHC RDW Lymphocytes # ABG pH 7.23 L ABG pCO2 63 H ABG HCO3 27 H ABG Total CO2 28 H Chloride 108 H BUN 49 H Glucose 107 H POC Glucose (mg/dL) Calcium 8.1 L CK-MB (CK-2) 3.3 H Total Protein 5.2 L Albumin 2.8 L Urine Protein Urine Blood Ur Leukocyte Esterase Urine RBC Urine WBC Urine Bacteria Hyaline Casts Urine Mucus Urine Opiates Screen U Marijuana (THC) Screen - Diagnostic Findings Chest x-ray: report reviewed, image reviewed Additional studies: Brain CT, EKG, x-ray of the pelvis reviewed Assessment and Plan Plan: Assessment: #1. Acute hypoxic and hypercapnic respiratory failure related to aspiration pneumonia #2. Suspect opiate overdose #3. History of COPD #4. Acute mental status change multifactorial related to toxic and metabolic encephalopathy #5. Diabetes mellitus type 2 #6. Chronic back pain #7. History of left nsmni-[id number] amputation for nonhealing left leg wound and MRSA infection #8. History of peripheral vascular disease with previous intervention the left leg #9. History of coronary artery disease with stenting Plan: Blood gas has been obtained and reviewed Chest x-ray reviewed Switch antibiotics to Zosyn for probable aspiration related pneumonia Continue IV hydration Maintain aspiration precautions Placed patient on BiPAP pressures 12/6 and FiO2 of 40% Keep nothing by mouth Continue breathing treatments Hold fentanyl patches DC lorazepam Continue to follow I have personally seen and examined the patient, performed the documentation and the assessment and plan as written. Number of minutes spent on the visit: [15] Time with Patient: Greater than 30
[2021-08-29] MEDS: HYDROmorphone 1 MG/ML 1 ML SYRINGE IVP PRN ×2 (16:15→20:04)
[2021-08-29] MEDS: SYMBICORT 160-4.5 MCG INHALER INHALATION SCH (19:24)
[2021-08-29] MEDS: NYSTATIN 100,000 UNIT/GM POWD 15 GM TOPICAL SCH (22:40)
[2021-08-29] MEDS ORDERED: hydrALAZINE HCL 20 MG/ML 1 ML VIAL IVP PRN (23:14)
[2021-08-29] MEDS: GABAPENTIN 300 MG CAP PO SCH (23:26)
[2021-08-29] MEDS: NICOTINE 21MG/24HR PATCH TRANSDERM SCH (23:26)
--- NOTE | 2021-08-29 23:56 | P.CONS ---
History of Present Illness - Reason for Consult Consult date: 08/29/21 Cellulitis Requesting physician: Fidencio Barrientos - Chief Complaint Mental status changes x one day - History of Present Illness Patient is a 71-year-old male with multiple comorbidities including COPD diabetes mellitus hypertension left joywg-yvu-cvel amputation for nonhealing wound secondary to MRSA infection back in 2009 presenting to the hospital for evaluation of mental status changes patient was found down with unknown downtime, patient on presentation to the hospital was afebrile patient did have normal white count with some lymphopenia did have elevated BUN and creatinine was normal liver exams are normal urine has been mostly hematuria no significant pyuria urine drug screen was positive for marijuana and opiates patient did have CT of the brain but no bleed chest x-ray cardiomegaly COPD diffuse interstitial pattern correlate for chronic interstitial lung disease patient was noticed to have a ulceration to the right lower extremity and to the right upper arm patient was given a dose of Rocephin subsequently but it has been switched to Zosyn infectious disease was consulted for possible right lower extremity cellulitis and pneumonia most information has been obtained from review the chart and talking to nursing staff as the patient is currently on BiPAP lethargic and cannot provide any history Review of Systems Positive points has been mentioned in HPI complete review could not be obtained because of his underlying mental status Past Medical History Past Medical History: COPD, Diabetes Mellitus, Hypertension, Myocardial Infarction ([place]), Osteoarthritis (OA), Vascular Disorder Additional Past Medical History / Comment(s): hx migraines, hx shingles, 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 knee wound + FOR MRSA. History of high left above-knee amputation done approximately 2009. 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 left testicle removed. heart stent x1 Past Anesthesia/Blood Transfusion Reactions: No Reported Reaction Date of Last Stent Placement:: 2006 Past Psychological History: Depression Smoking Status: Current every day smoker Past Alcohol Use History: None Reported Past Drug Use History: Marijuana - Past Family History Sister(s) Family Medical History: Cancer Additional Family Medical History / Comment(s): double mastectomy, still surviving Father Family Medical History: No Reported History Mother Family Medical History: No Reported History Additional Family Medical History / Comment(s): hypoglycemia Medications and Allergies Home Medications Medication Instructions Recorded Confirmed Type Aspirin 81 mg PO DAILY 01/14/14 08/29/21 History DULoxetine HCL [Cymbalta] 60 mg PO DAILY 01/14/14 08/29/21 History lisinopriL [Prinivil] 20 mg PO DAILY 01/14/14 08/29/21 History Escitalopram [Lexapro] 10 mg PO DAILY 06/13/18 08/29/21 History Pantoprazole Sodium [Protonix] 40 mg PO DAILY 06/13/18 08/29/21 History amLODIPine [Norvasc] 5 mg PO DAILY 06/13/18 08/29/21 History Enulose 10gm/15ml 20 gm PO Q48H PRN 07/16/20 08/29/21 History Multivitamins, Thera [Multivitamin 1 tab PO DAILY 07/16/20 08/29/21 History (formulary)] Atorvastatin [Lipitor] 80 mg PO DAILY #30 tab 07/20/20 08/29/21 Rx Metoprolol Succinate (ER) [Toprol 25 mg PO DAILY #30 tab.er.24h 07/20/20 08/29/21 Rx XL] Nitroglycerin Sl Tabs [Nitrostat] 0.4 mg SUBLINGUAL Q5M PRN #30 tab 07/20/20 08/29/21 Rx Budesonide-Formot 160-4.5 Mcg 2 puff INHALATION RT-BID 08/21/20 08/29/21 History [Symbicort 160-4.5 Mcg Inhaler] Albuterol Sulfate [Proair Hfa] 2 puff INHALATION RT-QID PRN 08/29/21 08/29/21 History Naloxone [Narcan] 1 mg SQ ONCE PRN 08/29/21 08/29/21 History Tamsulosin [Flomax] 0.4 mg PO DAILY 08/29/21 08/29/21 History Terbinafine [LamISIL] 250 mg PO DAILY 08/29/21 08/29/21 History ALPRAZolam [Xanax] 0.25 mg PO QID PRN 3 Days #12 tab 09/05/21 Rx Gabapentin [Neurontin] 300 mg PO TID #9 cap 09/05/21 Rx Gabapentin [Neurontin] 300 mg PO TID 3 Days #9 cap 09/05/21 Rx HYDROcodone/APAP 10-325MG [[place] 1 each PO Q6HR PRN 3 Days #12 tab 09/05/21 Rx 10-325] INSULIN ASPART (NovoLOG) [NovoLOG 0 unit SQ ACHS each 09/05/21 Rx (formulary)] Melatonin 10 mg PO HS PRN tab 09/05/21 Rx Moxifloxacin HCl [Avelox] 400 mg PO DAILY 7 Days #7 tablet 09/05/21 Rx Nicotine 21Mg/24Hr Patch [Habitrol] 1 patch TRANSDERM DAILY patch 09/05/21 Rx Nystatin 100,000 Unit/gm Powd 1 applic TOPICAL BID each 09/05/21 Rx [Mycostatin Powder] predniSONE [Deltasone] 40 mg PO DAILY tab 09/05/21 Rx traZODone HCL [Desyrel] 50 mg PO HS tab 09/05/21 Rx Allergies Allergy/AdvReac Type Severity Reaction Status Date / Time azithromycin [From Zithromax] Allergy Rash/Hives Verified 08/29/21 10:52 Physical Exam Vitals: Vital Signs Temp Pulse Resp BP Pulse Ox 08/29/21 07:30 77 28 H 120/63 92 L 08/29/21 07:05 84 16 122/69 94 L 08/29/21 07:00 80 15 124/68 76 L 08/29/21 06:30 94 30 H 130/81 97 08/29/21 06:21 82 24 130/81 93 L 08/29/21 06:12 92 24 109/58 95 08/29/21 06:00 25 H 08/29/21 05:47 92 L 08/29/21 05:30 95 23 143/84 08/29/21 04:30 116/61 08/29/21 04:27 12 08/29/21 04:00 65 12 113/56 95 08/29/21 03:51 54 L 20 97 08/29/21 03:45 69 12 113/56 95 08/29/21 03:31 97.7 F 62 16 102/90 100 Intake and Output 08/28/21 08/29/21 08/29/21 22:59 06:59 14:59 Other: Weight 55.701 kg GENERAL DESCRIPTION: Elderly male lying in bed, no distress. No tachypnea or accessory muscle of respiration use. HEENT: Shows Pallor , no scleral icterus. Oral mucous membrane is dry. No pharyngeal erythema or thrush NECK: Trachea central, no thyromegaly. LUNGS: Unlabored breathing. Coarse breath sounds bilaterally. No wheeze or crackle. HEART: S1, S2, regular rate and rhythm. No loud murmur ABDOMEN: Soft, no tenderness , guarding or rigidity, no organomegaly EXTREMITIES: Right lower extremity with superficial ulceration and redness no drainage did have a wound on the right upper extremity mostly skin tears with no drainage SKIN: No rash, no masses palpable. NEUROLOGICAL: The patient is lethargic orientation could not be determined Results CBC & Chem 7: 09/04/21 08:56 09/04/21 08:56 Labs: Abnormal Lab Results - Last 24 Hours (Table) 08/29/21 08/29/21 08/29/21 Range/Units 03:47 03:50 03:50 RBC 4.08 L (4.30-5.90) m/uL Hgb 9.3 L (13.0-17.5) gm/dL Hct 33.1 L (39.0-53.0) % MCH 22.9 L (25.0-35.0) pg MCHC 28.2 L (31.0-37.0) g/dL RDW 18.5 H (11.5-15.5) % Lymphocytes # 0.7 L (1.0-4.8) k/uL Chloride (98-107) mmol/L BUN (9-20) mg/dL Glucose (74-99) mg/dL POC Glucose (mg/dL) 127 H (75-99) mg/dL Calcium (8.4-10.2) mg/dL CK-MB (CK-2) (0.0-2.4) ng/mL Total Protein (6.3-8.2) g/dL Albumin (3.5-5.0) g/dL Urine Protein 1+ H (Negative) Urine Blood Large H (Negative) Ur Leukocyte Esterase Trace H (Negative) Urine RBC >182 H (0-5) /hpf Urine WBC 6 H (0-5) /hpf Urine Bacteria Few H (None) /hpf Hyaline Casts 9 H (0-2) /lpf Urine Mucus Occasional H (None) /hpf Urine Opiates Screen Detected H (NotDetected) U Marijuana (THC) Screen Detected H (NotDetected) 08/29/21 08/29/21 Range/Units 03:50 03:50 RBC (4.30-5.90) m/uL Hgb (13.0-17.5) gm/dL Hct (39.0-53.0) % MCH (25.0-35.0) pg MCHC (31.0-37.0) g/dL RDW (11.5-15.5) % Lymphocytes # (1.0-4.8) k/uL Chloride 108 H (98-107) mmol/L BUN 49 H (9-20) mg/dL Glucose 107 H (74-99) mg/dL POC Glucose (mg/dL) (75-99) mg/dL Calcium 8.1 L (8.4-10.2) mg/dL CK-MB (CK-2) 3.3 H (0.0-2.4) ng/mL Total Protein 5.2 L (6.3-8.2) g/dL Albumin 2.8 L (3.5-5.0) g/dL Urine Protein (Negative) Urine Blood (Negative) Ur Leukocyte Esterase (Negative) Urine RBC (0-5) /hpf Urine WBC (0-5) /hpf Urine Bacteria (None) /hpf Hyaline Casts (0-2) /lpf Urine Mucus (None) /hpf Urine Opiates Screen (NotDetected) U Marijuana (THC) Screen (NotDetected) Assessment and Plan (1) Aspiration pneumonia Status: Acute Code(s): J69.0 - PNEUMONITIS DUE TO INHALATION OF FOOD AND VOMIT SNOMED Code(s): 930381175 Plan: 1patient presented to hospital with mental status changes unresponsive and respiratory failure and concern for possible aspiration pneumonitis. 2patient with right lower extremity wound likely from ruptured blister and mild cellulitis likely from gram-positive skin deanna. 3patient did have evidence of groin area cutaneous candidiasis 4-patient to continue with Zosyn 3.375 g every 8 hours 5nystatin powder to the groin twice daily. 6local wound care to the right lower extremity and right arm wound with dry Aquacel silver dressing change every 48 hour We will follow on clinical condition and cultures to further adjust medication if needed Thank you for this consultation will follow this patient along with you Time with Patient: Greater than 30
[2021-08-30] MEDS: HYDROmorphone 1 MG/ML 1 ML SYRINGE IVP PRN ×5 (00:05→20:59)
[2021-08-30] MEDS: PIPERACILLIN-TAZOBACTAM 3.375 GM in SODIUM CHLORIDE 0.9% 100 ML IVPB SCH ×3 (04:08→20:58)
[2021-08-30] MEDS: SODIUM CHLORIDE 0.9% 1,000 ML IV SCH ×3 (04:09→21:00)
[2021-08-30] MEDS: PANTOPRAZOLE 40 MG TABLET PO SCH (06:22)
[2021-08-30 07:11] LABS: Anisocytosis Slight; Basophils % (A) 0 %; Eosinophils % (A) 0 %; HCT 39.6 % (39.0-53.0); HGB 11.2 gm/dL (13.0-17.5); Hypochromasia Marked; Lymphocytes # (A) 0.6 k/uL (1.0-4.8); Lymphocytes % (A) 4 %; MCH 22.9 pg (25.0-35.0); MCHC 28.4 g/dL (31.0-37.0); MCV 80.8 fL (80.0-100.0); Mean Platelet Volume 8.4; Microcytosis Slight; Monocytes # (A) 0.7 k/uL (0-1.0); Monocytes % (A) 5 %; Neutrophils # (A) 11.3 k/uL (1.3-7.7); Neutrophils % (A) 89 %; Platelet Count 381 k/uL (150-450); Poikilocytosis Slight; RDW 18.6 % (11.5-15.5); WBC 12.8 k/uL (3.8-10.6)
[2021-08-30 07:26] LABS: ALT 23 U/L (4-49); AST 37 U/L (17-59); African American GFR (CKD) >90 (>60 ml/min/1.73 sqM); Albumin 2.7 g/dL (3.5-5.0); Alkaline Phosphatase 78 U/L (38-126); Anion Gap 6 mmol/L; Blood Urea Nitrogen 19 mg/dL (9-20); Calcium 8.1 mg/dL (8.4-10.2); Carbon Dioxide 24 mmol/L (22-30); Chloride 111 mmol/L (98-107); Glucose 90 mg/dL (74-99); Magnesium 1.6 mg/dL (1.6-2.3); Non-African American GFR(CKD) >90 (>60 ml/min/1.73 sqM); Potassium 4.2 mmol/L (3.5-5.1); Sodium 141 mmol/L (137-145); Total Bilirubin 0.6 mg/dL (0.2-1.3); Total Protein 5.4 g/dL (6.3-8.2)
[2021-08-30] MEDS: IPRATROPIUM-ALBUTEROL 3 ML NEB INHALATION SCH ×4 (08:34→20:58)
[2021-08-30] MEDS: SYMBICORT 160-4.5 MCG INHALER INHALATION SCH ×2 (08:34→20:59)
[2021-08-30] MEDS ORDERED: ENOXAPARIN 40 MG/0.4 ML SYRINGE SQ SCH (09:00)
[2021-08-30] MEDS: amLODIPine 5 MG TAB PO SCH (09:14)
[2021-08-30] MEDS: NICOTINE 21MG/24HR PATCH TRANSDERM SCH (09:14)
[2021-08-30] MEDS: METOPROLOL SUCCINATE (ER) 25 MG TAB.ER.24H PO SCH (09:14)
[2021-08-30] MEDS: lisinopriL 20 MG TAB PO SCH (09:14)
[2021-08-30] MEDS: TAMSULOSIN 0.4 MG CAP.ER.24H PO SCH (09:14)
[2021-08-30] MEDS: GABAPENTIN 300 MG CAP PO SCH ×3 (09:14→20:59)
[2021-08-30] MEDS: ATORVASTATIN 80 MG TAB PO SCH (09:14)
[2021-08-30] MEDS: MULTIVITAMINS, THERA 1 EACH TAB PO SCH (09:14)
[2021-08-30] MEDS: ASPIRIN 81 MG PO SCH (09:14)
[2021-08-30] MEDS: NYSTATIN 100,000 UNIT/GM POWD 15 GM TOPICAL SCH ×2 (09:15→21:01)
[2021-08-30 11:52] LABS: Glucose,Whole Blood 234 mg/dL (75-99)
--- NOTE | 2021-08-30 11:52 | P.PN ---
Subjective Progress Note Date: 08/30/21 71-year-old white male patient with known history of COPD, hypertension, diabetes mellitus type 2, history of left tejep-uyz-fpdb amputation in 2009 for nonhealing wound related to MRSA infection, osteoarthritis, peripheral vascular disease with previous intervention of the left leg, who presented to the ER 08/29/2021 by EMS for evaluation of altered mental status. Patient was found down with unknown downtime. He was found was significant amount of fentanyl patches on, unresponsive, and unable to provide any history. Brain CT shows no acute intracranial abnormality. Chest x-ray showed mild cardiomegaly with mild interstitial edema and developing right upper lobe infiltrate. Pelvis x-ray was obtained related to a fall with possibility of injury, showing no acute displaced fracture. Lab work showed white blood cell count of 8.3, hemoglobin of 9.3, INR is 1.0, BUN of 49, creatinine 0.98, electrolytes were unremarkable, LFTs were within normal limits, ammonia level was less than 9, CK-MB was 3.3, troponin was less than 0.012, urinalysis showed large amount of blood, trace leukocyte esterase, 6 white blood cells, no clear evidence of urinary tract infection. Urine drug screen was positive for opiates, and marijuana, serum alcohol level was less than 10. Patient was started on antibiotics, breathing treatments, he was given 2-1/2 L of fluid boluses, and his IV fluids are infusing at a rate of 130 ml. The patient is seen today 08/30/2021 in follow-up on the regular medical floor. He is currently resting in bed. More awake and alert. Oriented 3. He is still on 10 L high flow nasal cannula. 0.9 normal saline at 130 MLS per hour. Urine culture pending. White count 12.8. Hemoglobin 11.2. Sodium 141. Potassium 4.2. Bicarb 24. BUN 19. Creatinine 0.69. Continued on DuoNeb inhalations, Symbicort. NicoDerm patches in place. Remains on Zosyn. Objective - Vital Signs Vital signs: Vital Signs Temp 98.1 F 08/30/21 08:00 Pulse 110 H 08/30/21 11:32 Resp 38 H 08/30/21 08:00 BP 168/74 08/30/21 08:00 Pulse Ox 93 L 08/30/21 08:00 Intake & Output 08/29/21 08/30/21 08/30/21 18:59 06:59 18:59 Output Total 1200 1475 Balance -1200 -1475 Weight 55.701 kg Output: Urine 1200 1475 Other: Voiding Method Indwelling Catheter Indwelling Catheter - Exam GENERAL EXAM: Alert, pleasant 71-year-old male patient, on 10 L high flow nasal cannula, comfortable in no apparent distress. HEAD: Normocephalic/atraumatic. EYES: Normal reaction of pupils, equal size. Conjunctiva pink, sclera white. NOSE: Clear with pink turbinates. THROAT: No erythema or exudates. NECK: No masses, no JVD, no thyroid enlargement, no adenopathy. CHEST: No chest wall deformity. Symmetrical expansion. LUNGS: Equal air entry with bilateral scattered wheezes and rhonchi CVS: Regular rate and rhythm, normal S1 and S2, no gallops, no murmurs, no rubs ABDOMEN: Soft, nontender. No hepatosplenomegaly, normal bowel sounds, no guarding or rigidity. EXTREMITIES: No clubbing, no edema, no cyanosis, 2+ pulses and upper and lower extremities. Left cbarc-blg-rzjv amputee MUSCULOSKELETAL: Muscle strength and tone normal. SPINE: No scoliosis or deformity SKIN: No rashes CENTRAL NERVOUS SYSTEM: Alert, oriented. No focal deficits, tone is normal in all 4 extremities. - Labs CBC & Chem 7: 08/30/21 06:50 08/30/21 06:50 Labs: Abnormal Lab Results - Last 24 Hours (Table) 08/29/21 08/30/21 08/30/21 Range/Units 12:14 06:50 06:50 WBC 12.8 H (3.8-10.6) k/uL Hgb 11.2 L (13.0-17.5) gm/dL MCH 22.9 L (25.0-35.0) pg MCHC 28.4 L (31.0-37.0) g/dL RDW 18.6 H (11.5-15.5) % Neutrophils # 11.3 H (1.3-7.7) k/uL Lymphocytes # 0.6 L (1.0-4.8) k/uL ABG pH 7.23 L (7.35-7.45) ABG pCO2 63 H (35-45) mmHg ABG HCO3 27 H (21-25) mmol/L ABG Total CO2 28 H (19-24) mmol/L Chloride 111 H (98-107) mmol/L Calcium 8.1 L (8.4-10.2) mg/dL Total Protein 5.4 L (6.3-8.2) g/dL Albumin 2.7 L (3.5-5.0) g/dL Microbiology - Last 24 Hours (Table) 08/29/21 12:36 Urine Culture - Preliminary Urine,Catheterized Assessment and Plan Assessment: Acute hypoxic and hypercapnic respiratory failure related to aspiration pneu monia Suspect opiate overdose History of COPD Acute mental status change multifactorial related to toxic and metabolic encephalopathy, improved Diabetes mellitus type 2 Chronic back pain History of left mfyuh-keo-nmfp amputation for nonhealing left leg wound and MRSA infection History of peripheral vascular disease with previous intervention the left leg History of coronary artery disease with stenting Plan: The patient was seen and evaluated Much more awake and alert today Continue bronchodilators and Zosyn Titrate down the FiO2 as tolerated Educated regarding the importance of complete smoking cessation NicoDerm patches in place Avoid narcotics, sedatives and anxiolytics We will continue to follow I have personally seen and examined the patient, performed the documentation and the assessment and plan as written. Number of minutes spent on the visit: 10.
--- NOTE | 2021-08-30 13:45 | P.PN ---
Subjective Progress Note Date: 08/30/21 Baldev Joyce, is a 71-year-old male patient who presented to the ER with concerns about mental status changes. According to ER record patient was found down unknown downtime with a significant amount of fentanyl patches on body. Patient has medical history of COPD, diabetes mellitus, hypertension, myocardial infarction osteoarthritis of vascular disease. Head CT was completed showing mild cerebral atrophy no acute intracranial abnormality no change. Chest x-ray completed showing mild cardiomegaly with mild interstitial edema correlate for CHF exacerbation developing right upper lung infiltrate cannot be excluded. Pelvis x-ray completed showing no new acute displaced fracture seen. UA comp leted showing large amount of blood and trace amount of leukocyte Estrace. Patient started on Rocephin. Upon exam patient remains in ER quite lethargic on 4 L nasal cannula. Bilateral legs appear red possible cellulitis. Patient started on Rocephin. Will consult pulmonary services for possible pneumonia repeat 2 view chest x-ray. 08/30/2021 patient was seen and examined on the medical floor he is alert and oriented 3 in no apparent distress, currently he is maintained on oxygen via nasal cannula at 6 L he required BiPAP throughout last night, he is still complaining of cough and shortness of breath and generalized body ache otherwise he denies any symptoms there is no fever or chills no headache or dizziness no chest pain no nausea or vomiting no abdominal pain no diarrhea and no urinary symptoms. Vital exam reveals a temperature of 98.1 pulse 122 respiration 38 blood pressure 168/74 pulse ox 93% on 6 L nasal cannula Objective - Vital Signs Vital signs: Vital Signs Temp 98.7 F 08/30/21 04:12 Pulse 91 08/30/21 03:49 Resp 20 08/30/21 03:49 BP 172/78 08/30/21 03:49 Pulse Ox 93 L 08/30/21 05:12 Intake & Output 08/29/21 08/30/21 08/30/21 18:59 06:59 18:59 Output Total 1200 1475 Balance -1200 -1475 Weight 55.701 kg Output: Urine 1200 1475 Other: Voiding Method Indwelling Catheter - Exam In general patient is alert and oriented 3 in no apparent distress Head normocephalic and atraumatic Neck supple no JVD no goiter Lungs exam with a scattered crackles bilaterally no wheezing Heart regular rate and rhythm S1-S2, no rub or gallop Abdomen is soft nontender nondistended positive bowel sounds no hepatosplenomega ly Extremities no edema, funez-nqj-fyvr 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 Neuro no gross focal deficit - Labs CBC & Chem 7: 08/30/21 06:50 08/30/21 06:50 Labs: Abnormal Lab Results - Last 24 Hours (Table) 08/29/21 08/30/21 08/30/21 Range/Units 12:14 06:50 06:50 WBC 12.8 H (3.8-10.6) k/uL Hgb 11.2 L (13.0-17.5) gm/dL MCH 22.9 L (25.0-35.0) pg MCHC 28.4 L (31.0-37.0) g/dL RDW 18.6 H (11.5-15.5) % Neutrophils # 11.3 H (1.3-7.7) k/uL Lymphocytes # 0.6 L (1.0-4.8) k/uL ABG pH 7.23 L (7.35-7.45) ABG pCO2 63 H (35-45) mmHg ABG HCO3 27 H (21-25) mmol/L ABG Total CO2 28 H (19-24) mmol/L Chloride 111 H (98-107) mmol/L Calcium 8.1 L (8.4-10.2) mg/dL Total Protein 5.4 L (6.3-8.2) g/dL Albumin 2.7 L (3.5-5.0) g/dL Microbiology - Last 24 Hours (Table) 08/29/21 12:36 Urine Culture - Preliminary Urine,Catheterized Assessment and Plan Assessment: 1. Altered mental status changes secondary to opiate overdose with multiple fentenyl patches on body according to ER report 2. Hematuria and urinary tract infection. Patient will be started on Rocephin 3. Possible pneumonia. Patient started on IV antibiotics pulmonary service is consulted repeat two-view chest x-ray ordered 4. Cellulitis of lower extremities. Infectious disease services also consulted. 5. History of COPD 6. Underlying history of essential hypertension 7. Underlying history of hyperlipidemia 8. Underlying history of depression 9. Underlying chronic pain syndrome 10. Underlying history of GERD 11. Underlying history of peripheral vascular disease DVT prophylaxis SCDs at this time due to hematuria and anemia. GI prophylaxis Protonix Pulmonary and infectious disease service is consulted Patient started on IV Rocephin Urine, blood and sputum cultures ordered Repeat chest x-ray ordered Repeat labs ordered
[2021-08-30 16:35] LABS: Glucose,Whole Blood 189 mg/dL (75-99)
[2021-08-30 20:28] LABS: Glucose,Whole Blood 165 mg/dL (75-99)
[2021-08-30] MEDS: INSULIN ASPART (NovoLOG) 100 UNIT/ML VIAL SQ SCH (20:58)
[2021-08-30] MEDS: MELATONIN 5 MG TABLET PO PRN (23:05)
[2021-08-31] MEDS: HYDROmorphone 1 MG/ML 1 ML SYRINGE IVP PRN ×4 (01:12→20:24)
[2021-08-31 04:05] LABS: Glucose,Whole Blood 130 mg/dL (75-99)
[2021-08-31] MEDS: PIPERACILLIN-TAZOBACTAM 3.375 GM in SODIUM CHLORIDE 0.9% 100 ML IVPB SCH ×3 (05:01→20:22)
[2021-08-31] MEDS: SODIUM CHLORIDE 0.9% 1,000 ML IV SCH ×3 (05:11→20:27)
[2021-08-31 05:49] LABS: Glucose,Whole Blood 126 mg/dL (75-99)
[2021-08-31] MEDS: INSULIN ASPART (NovoLOG) 100 UNIT/ML VIAL SQ SCH ×4 (05:50→21:38)
--- NOTE | 2021-08-31 06:50 | XR ---
EXAMINATION TYPE: XR chest 1V portable DATE OF EXAM: 08/31/2021 CLINICAL HISTORY: Difficulty breathing progress study. TECHNIQUE: Single AP portable upright view of the chest is obtained. COMPARISON: Chest x-ray from 2 days earlier FINDINGS: Degenerative change bilateral glenohumeral joints redemonstrated. Background chronic paren chymal changes with persistent but improving bilateral interstitial peripheral prominent or Sarah B lines are noted. Cardiac silhouette size within normal limits currently. Small to tiny bilateral pleu ral effusions are likely present. IMPRESSION: Persistent but improving interstitial edema. Correlate for resolving CHF exacerbation.
[2021-08-31] MEDS: IPRATROPIUM-ALBUTEROL 3 ML NEB INHALATION SCH ×4 (07:11→19:32)
[2021-08-31] MEDS: SYMBICORT 160-4.5 MCG INHALER INHALATION SCH ×2 (07:11→19:32)
[2021-08-31] MEDS: PANTOPRAZOLE 40 MG TABLET PO SCH (07:13)
[2021-08-31 08:03] LABS: Glucose,Whole Blood 188 mg/dL (75-99)
[2021-08-31] MEDS: TAMSULOSIN 0.4 MG CAP.ER.24H PO SCH (09:22)
[2021-08-31] MEDS: METOPROLOL SUCCINATE (ER) 25 MG TAB.ER.24H PO SCH (09:22)
[2021-08-31] MEDS: amLODIPine 5 MG TAB PO SCH (09:22)
[2021-08-31] MEDS: NICOTINE 21MG/24HR PATCH TRANSDERM SCH (09:22)
[2021-08-31] MEDS: lisinopriL 20 MG TAB PO SCH (09:22)
[2021-08-31] MEDS: ATORVASTATIN 80 MG TAB PO SCH (09:22)
[2021-08-31] MEDS: ASPIRIN 81 MG PO SCH (09:22)
[2021-08-31] MEDS: MULTIVITAMINS, THERA 1 EACH TAB PO SCH (09:22)
[2021-08-31] MEDS: GABAPENTIN 300 MG CAP PO SCH ×3 (09:22→21:39)
[2021-08-31] MEDS: NYSTATIN 100,000 UNIT/GM POWD 15 GM TOPICAL SCH ×2 (09:22→20:24)
[2021-08-31 09:55] LABS: Anisocytosis Slight; Basophils % (A) 0 %; Eosinophils % (A) 0 %; HCT 36.6 % (39.0-53.0); HGB 10.4 gm/dL (13.0-17.5); Hypochromasia Marked; Lymphocytes # (A) 0.3 k/uL (1.0-4.8); Lymphocytes % (A) 3 %; MCH 22.9 pg (25.0-35.0); MCHC 28.5 g/dL (31.0-37.0); MCV 80.2 fL (80.0-100.0); Mean Platelet Volume 8.3; Microcytosis Slight; Monocytes # (A) 0.4 k/uL (0-1.0); Monocytes % (A) 5 %; Neutrophils # (A) 8.8 k/uL (1.3-7.7); Neutrophils % (A) 91 %; Platelet Count 333 k/uL (150-450); Poikilocytosis Slight; RBC 4.56 m/uL (4.30-5.90); RDW 18.5 % (11.5-15.5); WBC 9.7 k/uL (3.8-10.6)
[2021-08-31 10:09] LABS: ALT 24 U/L (4-49); AST 38 U/L (17-59); African American GFR (CKD) >90 (>60 ml/min/1.73 sqM); Albumin 2.6 g/dL (3.5-5.0); Alkaline Phosphatase 65 U/L (38-126); Anion Gap 7 mmol/L; Blood Urea Nitrogen 17 mg/dL (9-20); Calcium 7.8 mg/dL (8.4-10.2); Carbon Dioxide 21 mmol/L (22-30); Chloride 108 mmol/L (98-107); Glucose 185 mg/dL (74-99); Non-African American GFR(CKD) >90 (>60 ml/min/1.73 sqM); Potassium 3.9 mmol/L (3.5-5.1); Sodium 136 mmol/L (137-145); Total Bilirubin 0.7 mg/dL (0.2-1.3); Total Protein 5.1 g/dL (6.3-8.2)
[2021-08-31 11:36] LABS: Glucose,Whole Blood 158 mg/dL (75-99)
--- NOTE | 2021-08-31 13:51 | P.PN ---
Subjective Progress Note Date: 08/31/21 Principal diagnosis: Acute hypoxic and hypercapnic respiratory failure secondary to aspiration pneumonia, opiate overdose, and suspect underlying COPD 71-year-old white male patient with known history of COPD, hypertension, diabetes mellitus type 2, history of left ztlar-tnw-zkgf amputation in 2009 for nonhealing wound related to MRSA infection, osteoarthritis, peripheral vascular disease with previous intervention of the left leg, who presented to the ER 08/29/2021 by EMS for evaluation of altered mental status. Patient was found down with unknown downtime. He was found was significant amount of fentanyl patches on, unresponsive, and unable to provide any history. Brain CT shows no acute intracranial abnormality. Chest x-ray showed mild cardiomegaly with mild interstitial edema and developing right upper lobe infiltrate. Pelvis x-ray was obtained related to a fall with possibility of injury, showing no acute displaced fracture. Lab work showed white blood cell count of 8.3, hemoglobin of 9.3, INR is 1.0, BUN of 49, creatinine 0.98, electrolytes were unremarkable, LFTs were within normal limits, ammonia level was less than 9, CK-MB was 3.3, troponin was less than 0.012, urinalysis showed large amount of blood, trace leukocyte esterase, 6 white blood cells, no clear evidence of urinary tract infection. Urine drug screen was positive for opiates, and marijuana, serum alcohol level was less than 10. Patient was started on antibiotics, breathing treatments, he was given 2-1/2 L of fluid boluses, and his IV fluids are infusing at a rate of 130 ml. The patient is seen today 08/30/2021 in follow-up on the regular medical floor. He is currently resting in bed. More awake and alert. Oriented 3. He is still on 10 L high flow nasal cannula. 0.9 normal saline at 130 MLS per hour. Urine culture pending. White count 12.8. Hemoglobin 11.2. Sodium 141. Potassium 4.2. Bicarb 24. BUN 19. Creatinine 0.69. Continued on DuoNeb inhalations, Symbicort. NicoDerm patches in place. Remains on Zosyn. Reevaluated today on 08/31/2021, patient remains on the regular medical floor, tells me that his feeling better today, breathing easier. Patient has BiPAP at bedside, he is now on 10 L high flow nasal cannula, and O2 sats is 97%. Patient does not seem to be very compliant with BiPAP. Chest x-ray showed persistent interstitial infiltrates/edema however the findings seem to be mostly in the left lower lobe hence I am favoring pneumonia over pulmonary edema WBC count is 9.7 hemoglobin is 10.4 electrodes are normal renal profile is normal Objective - Vital Signs Vital signs: Vital Signs Temp 98.0 F 08/31/21 08:00 Pulse 67 08/31/21 11:32 Resp 24 08/31/21 11:32 BP 147/79 08/31/21 11:32 Pulse Ox 97 08/31/21 11:32 Intake & Output 08/30/21 08/31/21 08/31/21 18:59 06:59 18:59 Intake Total 240 1140 Output Total 1050 275 750 Balance -810 865 -750 Intake: Intake, IV Titration 1140 Amount Piperacillin-Tazobactam 3 100 .375 gm In Sodium Chloride 0.9% 100 ml @ 25 mls/hr IVPB Q8H [facility] Rx#: [id number] Sodium Chloride 0.9% 1, 1040 000 ml @ 130 mls/hr IV . Q7H42M [facility] Rx#:[id number] Oral 240 Output: Urine 1050 275 750 Other: Voiding Method Indwelling Catheter Indwelling Catheter Indwelling Catheter # Bowel Movements 1 - Exam GENERAL EXAM: Alert, pleasant 71-year-old male patient, on 10 L high flow nasal cannula, O2 saturation 97%. HEAD: Normocephalic/atraumatic. HEENT: PERRLA, EOMI, anicteric, no neck masses, no JVD. Moist mucous membranes. CHEST: No chest wall deformity. Symmetrical expansion. LUNGS: Scattered rhonchi and wheezes noted bilaterally. CVS: Regular rate and rhythm, normal S1 and S2, no gallops, no murmurs, no rubs ABDOMEN: Soft, nontender. No hepatosplenomegaly, normal bowel sounds, no guarding or rigidity. EXTREMITIES: No clubbing, no edema, no cyanosis, 2+ pulses and upper and lower extremities. Left bqofw-ukz-mjfu amputee, chronic superficial ulcerations and v enous stasis changes noted in the right lower extremity MUSCULOSKELETAL: No deformities noted the patient is range of motion, however the patient does have left AKA SKIN: No rashes CENTRAL NERVOUS SYSTEM: Alert, oriented. No focal deficits, - Labs CBC & Chem 7: 08/31/21 08:59 08/31/21 08:59 Labs: Abnormal Lab Results - Last 24 Hours (Table) 08/30/21 08/30/21 08/31/21 Range/Units 16:34 20:21 04:04 Hgb (13.0-17.5) gm/dL Hct (39.0-53.0) % MCH (25.0-35.0) pg MCHC (31.0-37.0) g/dL RDW (11.5-15.5) % Neutrophils # (1.3-7.7) k/uL Lymphocytes # (1.0-4.8) k/uL Sodium (137-145) mmol/L Chloride (98-107) mmol/L Carbon Dioxide (22-30) mmol/L Glucose (74-99) mg/dL POC Glucose (mg/dL) 189 H 165 H 130 H (75-99) mg/dL Calcium (8.4-10.2) mg/dL Total Protein (6.3-8.2) g/dL Albumin (3.5-5.0) g/dL 08/31/21 08/31/21 08/31/21 Range/Units 05:47 08:01 08:59 Hgb 10.4 L (13.0-17.5) gm/dL Hct 36.6 L (39.0-53.0) % MCH 22.9 L (25.0-35.0) pg MCHC 28.5 L (31.0-37.0) g/dL RDW 18.5 H (11.5-15.5) % Neutrophils # 8.8 H (1.3-7.7) k/uL Lymphocytes # 0.3 L (1.0-4.8) k/uL Sodium (137-145) mmol/L Chloride (98-107) mmol/L Carbon Dioxide (22-30) mmol/L Glucose (74-99) mg/dL POC Glucose (mg/dL) 126 H 188 H (75-99) mg/dL Calcium (8.4-10.2) mg/dL Total Protein (6.3-8.2) g/dL Albumin (3.5-5.0) g/dL 08/31/21 08/31/21 Range/Units 08:59 11:34 Hgb (13.0-17.5) gm/dL Hct (39.0-53.0) % MCH (25.0-35.0) pg MCHC (31.0-37.0) g/dL RDW (11.5-15.5) % Neutrophils # (1.3-7.7) k/uL Lymphocytes # (1.0-4.8) k/uL Sodium 136 L (137-145) mmol/L Chloride 108 H (98-107) mmol/L Carbon Dioxide 21 L (22-30) mmol/L Glucose 185 H (74-99) mg/dL POC Glucose (mg/dL) 158 H (75-99) mg/dL Calcium 7.8 L (8.4-10.2) mg/dL Total Protein 5.1 L (6.3-8.2) g/dL Albumin 2.6 L (3.5-5.0) g/dL Microbiology - Last 24 Hours (Table) 08/29/21 12:36 Urine Culture - Final Urine,Catheterized Assessment and Plan Assessment: Acute hypoxic and hypercapnic respiratory failure related to aspiration pneumonia, and opiate overdose as well as underlying COPD Suspect opiate overdose History of COPD Acute mental status change multifactorial related to toxic and metabolic encephalopathy, improved Diabetes mellitus type 2 Chronic back pain History of left abhiv-xfv-hzyx amputation for nonhealing left leg wound and MRSA infection History of peripheral vascular disease with previous intervention the left leg History of coronary artery disease with stenting Plan: Continue oxygen. Continue Zosyn empirically. Continue bronchodilators. Use BiPAP as needed for hypercapnia. Counseled regarding smoking cessation. Continue nicotine patches. Continue to avoid narcotics and sedatives. We will continue to follow, patient is not ready for any discharge planning Chest x-ray was reviewed and discussed with the patient. Time with Patient: Less than 30
--- NOTE | 2021-08-31 14:36 | P.PN ---
Subjective Progress Note Date: 08/31/21 Baldev Joyec, is a 71-year-old male patient who presented to the ER with concerns about mental status changes. According to ER record patient was found down unknown downtime with a significant amount of fentanyl patches on body. Patient has medical history of COPD, diabetes mellitus, hypertension, myocardial infarction osteoarthritis of vascular disease. Head CT was completed showing mild cerebral atrophy no acute intracranial abnormality no change. Chest x-ray completed showing mild cardiomegaly with mild interstitial edema correlate for CHF exacerbation developing right upper lung infiltrate cannot be excluded. Pelvis x-ray completed showing no new acute displaced fracture seen. UA comp leted showing large amount of blood and trace amount of leukocyte Estrace. Patient started on Rocephin. Upon exam patient remains in ER quite lethargic on 4 L nasal cannula. Bilateral legs appear red possible cellulitis. Patient started on Rocephin. Will consult pulmonary services for possible pneumonia repeat 2 view chest x-ray. 08/30/2021 patient was seen and examined on the medical floor he is alert and oriented 3 in no apparent distress, currently he is maintained on oxygen via nasal cannula at 6 L he required BiPAP throughout last night, he is still complaining of cough and shortness of breath and generalized body ache otherwise he denies any symptoms there is no fever or chills no headache or dizziness no chest pain no nausea or vomiting no abdominal pain no diarrhea and no urinary symptoms. Vital exam reveals a temperature of 98.1 pulse 122 respiration 38 blood pressure 168/74 pulse ox 93% on 6 L nasal cannula. On 08/31/2021 patient was seen and examined on the telemetry floor he is alert and oriented 3 in no apparent distress he had worsening shortness of breath las t night and required BiPAP, currently he is maintained on oxygen 10 L via nasal cannula, repeat chest x-ray revealed persistent but improving interstitial edema, clinically patient is feeling better he reports some improvement in the shortness of breath he is alert and oriented 3 in no distress there is no fever or chills no headache or dizziness no chest pain he has occasional cough no nausea or vomiting no abdominal pain no diarrhea and no urinary symptoms Objective - Vital Signs Vital signs: Vital Signs Temp 98.0 F 08/31/21 08:00 Pulse 67 08/31/21 11:32 Resp 24 08/31/21 11:32 BP 147/79 08/31/21 11:32 Pulse Ox 97 08/31/21 11:32 Intake & Output 08/30/21 08/31/21 08/31/21 18:59 06:59 18:59 Intake Total 240 1140 Output Total 1050 275 750 Balance -810 865 -750 Intake: Intake, IV Titration 1140 Amount Piperacillin-Tazobactam 3 100 .375 gm In Sodium Chloride 0.9% 100 ml @ 25 mls/hr IVPB Q8H [facility] Rx#: [id number] Sodium Chloride 0.9% 1, 1040 000 ml @ 130 mls/hr IV . Q7H42M [facility] Rx#:[id number] Oral 240 Output: Urine 1050 275 750 Other: Voiding Method Indwelling Catheter Indwelling Catheter Indwelling Catheter # Bowel Movements 1 - Exam In general patient is alert and oriented 3 in no apparent distress Head normocephalic and atraumatic Neck supple no JVD no goiter Lungs exam with a scattered crackles bilaterally no wheezing Heart regular rate and rhythm S1-S2, no rub or gallop Abdomen is soft nontender nondistended positive bowel sounds no hepatosplenomegaly Extremities no edema, cvklb-wkz-fefn 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 Neuro no gross focal deficit - Labs CBC & Chem 7: 08/31/21 08:59 08/31/21 08:59 Labs: Abnormal Lab Results - Last 24 Hours (Table) 08/30/21 08/30/21 08/31/21 Range/Units 16:34 20:21 04:04 Hgb (13.0-17.5) gm/dL Hct (39.0-53.0) % MCH (25.0-35.0) pg MCHC (31.0-37.0) g/dL RDW (11.5-15.5) % Neutrophils # (1.3-7.7) k/uL Lymphocytes # (1.0-4.8) k/uL Sodium (137-145) mmol/L Chloride (98-107) mmol/L Carbon Dioxide (22-30) mmol/L Glucose (74-99) mg/dL POC Glucose (mg/dL) 189 H 165 H 130 H (75-99) mg/dL Calcium (8.4-10.2) mg/dL Total Protein (6.3-8.2) g/dL Albumin (3.5-5.0) g/dL 08/31/21 08/31/21 08/31/21 Range/Units 05:47 08:01 08:59 Hgb 10.4 L (13.0-17.5) gm/dL Hct 36.6 L (39.0-53.0) % MCH 22.9 L (25.0-35.0) pg MCHC 28.5 L (31.0-37.0) g/dL RDW 18.5 H (11.5-15.5) % Neutrophils # 8.8 H (1.3-7.7) k/uL Lymphocytes # 0.3 L (1.0-4.8) k/uL Sodium (137-145) mmol/L Chloride (98-107) mmol/L Carbon Dioxide (22-30) mmol/L Glucose (74-99) mg/dL POC Glucose (mg/dL) 126 H 188 H (75-99) mg/dL Calcium (8.4-10.2) mg/dL Total Protein (6.3-8.2) g/dL Albumin (3.5-5.0) g/dL 08/31/21 08/31/21 Range/Units 08:59 11:34 Hgb (13.0-17.5) gm/dL Hct (39.0-53.0) % MCH (25.0-35.0) pg MCHC (31.0-37.0) g/dL RDW (11.5-15.5) % Neutrophils # (1.3-7.7) k/uL Lymphocytes # (1.0-4.8) k/uL Sodium 136 L (137-145) mmol/L Chloride 108 H (98-107) mmol/L Carbon Dioxide 21 L (22-30) mmol/L Glucose 185 H (74-99) mg/dL POC Glucose (mg/dL) 158 H (75-99) mg/dL Calcium 7.8 L (8.4-10.2) mg/dL Total Protein 5.1 L (6.3-8.2) g/dL Albumin 2.6 L (3.5-5.0) g/dL Microbiology - Last 24 Hours (Table) 08/29/21 12:36 Urine Culture - Final Urine,Catheterized Assessment and Plan Assessment: 1. Altered mental status changes secondary to opiate overdose with multiple fentenyl patches on body according to ER report 2. Hematuria and urinary tract infection. Patient will be started on Rocephin 3. Possible pneumonia. Patient started on IV antibiotics pulmonary service is consulted repeat two-view chest x-ray ordered 4. Cellulitis of lower extremities. Infectious disease services also consulted. 5. History of COPD 6. Underlying history of essential hypertension 7. Underlying history of hyperlipidemia 8. Underlying history of depression 9. Underlying chronic pain syndrome 10. Underlying history of GERD 11. Underlying history of peripheral vascular disease 12. Shortness of breath, related to pneumonia versus CHF, will check BNP, echocardiogram and consult cardiology DVT prophylaxis SCDs at this time due to hematuria and anemia. GI prophylaxis Protonix Pulmonary and infectious disease service is consulted Patient started on IV Rocephin Urine, blood and sputum cultures ordered Repeat chest x-ray ordered Repeat labs ordered
[2021-08-31 16:17] LABS: Glucose,Whole Blood 143 mg/dL (75-99)
[2021-08-31 21:04] LABS: Glucose,Whole Blood 178 mg/dL (75-99)
[2021-08-31] MEDS: MELATONIN 5 MG TABLET PO PRN (21:39)
[2021-09-01] MEDS: SODIUM CHLORIDE 0.9% 1,000 ML IV SCH (00:32)
[2021-09-01] MEDS: HYDROmorphone 1 MG/ML 1 ML SYRINGE IVP PRN ×4 (02:49→20:49)
[2021-09-01] MEDS: PIPERACILLIN-TAZOBACTAM 3.375 GM in SODIUM CHLORIDE 0.9% 100 ML IVPB SCH ×3 (06:28→20:48)
[2021-09-01 06:45] LABS: Glucose,Whole Blood 119 mg/dL (75-99)
[2021-09-01] MEDS: INSULIN ASPART (NovoLOG) 100 UNIT/ML VIAL SQ SCH ×4 (06:49→20:49)
[2021-09-01] MEDS: PANTOPRAZOLE 40 MG TABLET PO SCH (07:00)
[2021-09-01 07:08] LABS: Anisocytosis Slight; Basophils % (A) 0 %; Eosinophils # (A) 0.2 k/uL (0-0.7); Eosinophils % (A) 3 %; HCT 36.2 % (39.0-53.0); HGB 10.6 gm/dL (13.0-17.5); Hypochromasia Marked; Lymphocytes # (A) 0.5 k/uL (1.0-4.8); Lymphocytes % (A) 8 %; MCH 23.3 pg (25.0-35.0); MCHC 29.2 g/dL (31.0-37.0); MCV 79.9 fL (80.0-100.0); Mean Platelet Volume 7.8; Microcytosis Slight; Monocytes # (A) 0.4 k/uL (0-1.0); Monocytes % (A) 6 %; Neutrophils # (A) 5.9 k/uL (1.3-7.7); Neutrophils % (A) 83 %; Platelet Count 307 k/uL (150-450); Poikilocytosis Slight; RBC 4.53 m/uL (4.30-5.90); RDW 18.6 % (11.5-15.5); WBC 7.2 k/uL (3.8-10.6)
[2021-09-01 07:28] LABS: ALT 28 U/L (4-49); AST 42 U/L (17-59); African American GFR (CKD) >90 (>60 ml/min/1.73 sqM); Albumin 2.6 g/dL (3.5-5.0); Alkaline Phosphatase 66 U/L (38-126); Anion Gap 6 mmol/L; Blood Urea Nitrogen 13 mg/dL (9-20); Calcium 7.9 mg/dL (8.4-10.2); Carbon Dioxide 24 mmol/L (22-30); Chloride 105 mmol/L (98-107); Glucose 108 mg/dL (74-99); Non-African American GFR(CKD) >90 (>60 ml/min/1.73 sqM); Potassium 3.9 mmol/L (3.5-5.1); Sodium 135 mmol/L (137-145); Total Bilirubin 0.6 mg/dL (0.2-1.3); Total Protein 5.2 g/dL (6.3-8.2)
[2021-09-01] MEDS: SYMBICORT 160-4.5 MCG INHALER INHALATION SCH ×2 (08:06→20:37)
[2021-09-01] MEDS: IPRATROPIUM-ALBUTEROL 3 ML NEB INHALATION SCH ×4 (08:06→20:37)
[2021-09-01] MEDS: lisinopriL 20 MG TAB PO SCH (08:33)
[2021-09-01] MEDS: NICOTINE 21MG/24HR PATCH TRANSDERM SCH (08:33)
[2021-09-01] MEDS: GABAPENTIN 300 MG CAP PO SCH ×3 (08:33→20:49)
[2021-09-01] MEDS: MULTIVITAMINS, THERA 1 EACH TAB PO SCH (08:33)
[2021-09-01] MEDS: ASPIRIN 81 MG PO SCH (08:33)
[2021-09-01] MEDS: NYSTATIN 100,000 UNIT/GM POWD 15 GM TOPICAL SCH ×2 (08:33→20:50)
[2021-09-01] MEDS: TAMSULOSIN 0.4 MG CAP.ER.24H PO SCH (08:33)
[2021-09-01] MEDS: amLODIPine 5 MG TAB PO SCH (08:33)
[2021-09-01] MEDS: ATORVASTATIN 80 MG TAB PO SCH (08:33)
[2021-09-01] MEDS: METOPROLOL SUCCINATE (ER) 25 MG TAB.ER.24H PO SCH (08:33)
--- NOTE | 2021-09-01 11:27 | P.PN ---
Subjective Progress Note Date: 09/01/21 Acute hypoxic and hypercapnic respiratory failure secondary to aspiration pneumonia, opiate overdose, and suspect underlying COPD 71-year-old white male patient with known history of COPD, hypertension, diabetes mellitus type 2, history of left urumb-txx-xlof amputation in 2009 for nonhealing wound related to MRSA infection, osteoarthritis, peripheral vascular disease with previous intervention of the left leg, who presented to the ER 08/29/2021 by EMS for evaluation of altered mental status. Patient was found down with unknown downtime. He was found was significant amount of fentanyl patches on, unresponsive, and unable to provide any history. Brain CT shows no acute intracranial abnormality. Chest x-ray showed mild cardiomegaly with mild interstitial edema and developing right upper lobe infiltrate. Pelvis x-ray was obtained related to a fall with possibility of injury, showing no acute displaced fracture. Lab work showed white blood cell count of 8.3, hemoglobin of 9.3, INR is 1.0, BUN of 49, creatinine 0.98, electrolytes were unremarkable, LFTs were within normal limits, ammonia level was less than 9, CK-MB was 3.3, troponin was less than 0.012, urinalysis showed large amount of blood, trace leukocyte esterase, 6 white blood cells, no clear evidence of urinary tract infection. Urine drug screen was positive for opiates, and marijuana, serum alcohol level was less than 10. Patient was started on antibiotics, breathing treatments, he was given 2-1/2 L of fluid boluses, and his IV fluids are infusing at a rate of 130 ml. The patient is seen today 08/30/2021 in follow-up on the regular medical floor. He is currently resting in bed. More awake and alert. Oriented 3. He is still on 10 L high flow nasal cannula. 0.9 normal saline at 130 MLS per hour. Urine culture pending. White count 12.8. Hemoglobin 11.2. Sodium 141. Potassium 4.2. Bicarb 24. BUN 19. Creatinine 0.69. Continued on DuoNeb inhalations, Symbicort. NicoDerm patches in place. Remains on Zosyn. Reevaluated today on 08/31/2021, patient remains on the regular medical floor, tells me that his feeling better today, breathing easier. Patient has BiPAP at bedside, he is now on 10 L high flow nasal cannula, and O2 sats is 97%. Patient does not seem to be very compliant with BiPAP. Chest x-ray showed persistent interstitial infiltrates/edema however the findings seem to be mostly in the left lower lobe hence I am favoring pneumonia over pulmonary edema WBC count is 9.7 hemoglobin is 10.4 electrodes are normal renal profile is normal I 2021, the patient remains on a medical floor. He is on 8 L of O2 nasal cannula. Pulse ox is 94%. Using the BiPAP on and off during the day. Feeling well. He is feeling less short of breath. The chest x-ray showing COPD along with a left lower lobe consolidation. The patient remains on IV Zosyn covering the patient for an aspiration pneumonia. No nausea. No vomiting. No emesis. He is a chronic smoker. He also has severe peripheral vascular disease with previous above-knee 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. No signs of any acute infection. He has overdosed on fentanyl patches. He smokes also marijuana. IV fluids are currently at 25 mL's an hour. Is tolerating his diet. No signs of any withdrawal. Objective - Vital Signs Vital signs: Vital Signs Temp 97.8 F 09/01/21 08:00 Pulse 78 09/01/21 08:24 Resp 22 09/01/21 08:00 BP 149/69 09/01/21 08:00 Pulse Ox 94 L 09/01/21 08:00 FiO2 40 09/01/21 00:15 Intake & Output 08/31/21 09/01/21 09/01/21 18:59 06:59 18:59 Intake Total 90 Output Total 2049 600 Balance -2049 - 90 Intake: Oral 90 Output: Urine 2049 600 Uretheral (Russo) 350 Other: Voiding Method Indwelling Catheter Indwelling Catheter Indwelling Catheter # Bowel Movements 1 - Exam GENERAL EXAM: Alert, pleasant 71-year-old male patient, on 8 L high flow nasal cannula, O2 saturation 97%. HEAD: Normocephalic/atraumatic. HEENT: PERRLA, EOMI, anicteric, no neck masses, no JVD. Moist mucous membranes. CHEST: No chest wall deformity. Symmetrical expansion. LUNGS: Scattered rhonchi and wheezes noted bilaterally. CVS: Regular rate and rhythm, normal S1 and S2, no gallops, no murmurs, no rubs ABDOMEN: Soft, nontender. No hepatosplenomegaly, normal bowel sounds, no guarding or rigidity. EXTREMITIES: No clubbing, no edema, no cyanosis, 2+ pulses and upper and lower extremities. Left sdcew-ljr-cjjn amputee, chronic superficial ulcerations and venous stasis changes noted in the right lower extremity MUSCULOSKELETAL: No deformities noted the patient is range of motion, however the patient does have left AKA SKIN: No rashes CENTRAL NERVOUS SYSTEM: Alert, oriented. No focal deficits, - Labs CBC & Chem 7: 09/01/21 06:06 09/01/21 06:06 Labs: Abnormal Lab Results - Last 24 Hours (Table) 08/31/21 08/31/21 08/31/21 Range/Units 08:59 11:34 16:16 Hgb (13.0-17.5) gm/dL Hct (39.0-53.0) % MCV (80.0-100.0) fL MCH (25.0-35.0) pg MCHC (31.0-37.0) g/dL RDW (11.5-15.5) % Lymphocytes # (1.0-4.8) k/uL Sodium (137-145) mmol/L Glucose (74-99) mg/dL POC Glucose (mg/dL) 158 H 143 H (75-99) mg/dL Hemoglobin A1c 6.7 H (0.0-6.0) % Calcium (8.4-10.2) mg/dL Magnesium (1.6-2.3) mg/dL Total Protein (6.3-8.2) g/dL Albumin (3.5-5.0) g/dL 08/31/21 09/01/21 09/01/21 Range/Units 21:02 06:06 06:06 Hgb 10.6 L (13.0-17.5) gm/dL Hct 36.2 L (39.0-53.0) % MCV 79.9 L (80.0-100.0) fL MCH 23.3 L (25.0-35.0) pg MCHC 29.2 L (31.0-37.0) g/dL RDW 18.6 H (11.5-15.5) % Lymphocytes # 0.5 L (1.0-4.8) k/uL Sodium 135 L (137-145) mmol/L Glucose 108 H (74-99) mg/dL POC Glucose (mg/dL) 178 H (75-99) mg/dL Hemoglobin A1c (0.0-6.0) % Calcium 7.9 L (8.4-10.2) mg/dL Magnesium (1.6-2.3) mg/dL Total Protein 5.2 L (6.3-8.2) g/dL Albumin 2.6 L (3.5-5.0) g/dL 09/01/21 09/01/21 Range/Units 06:06 06:43 Hgb (13.0-17.5) gm/dL Hct (39.0-53.0) % MCV (80.0-100.0) fL MCH (25.0-35.0) pg MCHC (31.0-37.0) g/dL RDW (11.5-15.5) % Lymphocytes # (1.0-4.8) k/uL Sodium (137-145) mmol/L Glucose (74-99) mg/dL POC Glucose (mg/dL) 119 H (75-99) mg/dL Hemoglobin A1c (0.0-6.0) % Calcium (8.4-10.2) mg/dL Magnesium 1.5 L (1.6-2.3) mg/dL Total Protein (6.3-8.2) g/dL Albumin (3.5-5.0) g/dL Assessment and Plan Plan: Acute hypoxic and hypercapnic respiratory failure related to aspiration pneumonia, and opiate overdose as well as underlying COPD mild currently on 8 L of oxygen by nasal cannula. The patient does not have home O2. He has a nebulizer that he does albuterol nebulized treatments as needed. Currently has a left lower lobe pneumonia in addition and the patient is currently on IV Zosyn. Left lower lobe pneumonia, consider aspiration Suspect opiate overdose History of COPD Acute mental status change multifactorial related to toxic and metabolic encephalopathy, improved Diabetes mellitus type 2 Chronic back pain History of left bndvi-lni-euhp amputation for nonhealing left leg wound and MRSA infection History of peripheral vascular disease with previous intervention the left leg History of coronary artery disease with stenting Plan: Continue oxygen. Wean down the patient to 6 L O2 nasal cannula Continue Zosyn empirically. Continue bronchodilators. Start the patient IV Solu-Medrol 60 mg every 6 hours Use BiPAP as needed for hypercapnia. I will be used on and off during the day. Provide the patient incentive spirometer Counseled regarding smoking cessation. Continue nicotine patches. Continue to avoid narcotics and sedatives. We will continue to follow, patient is not ready for any discharge planning We will likely need home O2 Has a home nebulizer.
[2021-09-01 11:44] LABS: Glucose,Whole Blood 180 mg/dL (75-99)
--- NOTE | 2021-09-01 11:45 | P.CRDCN ---
History of Present Illness History of present illness: HISTORY OF PRESENT ILLNESS: This is a 71-year-old male with a past medical history significant for coronary artery disease with previous stenting of the LAD and RCA, peripheral arterial disease, left zowtn-pil-npvn amputation, nicotine dependence, COPD, hypertension , and hyperlipidemia. Patient follows in the office with Dr. Palafox. We have been asked to see the patient in consultation for shortness of breath. Patient examined at the bedside. The patient was admitted to the hospital after being found down at home with multiple fentanyl patches. The patient is currently being treated for aspiration pneumonia. He is currently on a liters nasal cannula. He reports his shortness of breath is improving. He is laying flat in bed and appears to be comfortable at rest. He denies any chest pain or pressure. * EKG reveals sinus mechanism with no signs of acute ischemia * Chest xray mild cardiomegaly with mild interstitial edema. Correlate for CHF exacerbation. Developing right upper lung infiltrate cannot be excluded * Laboratory data: WBC 7.2. Hemoglobin 10.6. Platelet count 307. Sodium 135. Potassium 3.9. BUN 13. Creatinine 0.68. ProBNP 6400 * Current home cardiac medications include aspirin 81 mg daily, Lipitor 80 mg daily, metoprolol succinate 25 mg daily, amlodipine 5 mg daily, lisinopril 20 mg daily * Most recent echocardiogram obtained in July 2020 revealed ejection fraction 55-60%, trace MR, trace TR * Cardiac catheterization history: July 2020 with stenting of the mid RCA REVIEW OF SYSTEMS: At the time of my exam: CONSTITUTIONAL: Denies fever or chills. HEENT: Denies blurred vision, vision changes, or eye pain. Denies hemoptysis CARDIOVASCULAR: Denies chest pain. Denies orthopnea. Denies PND. Denies palpitations RESPIRATORY: Denies shortness of breath. GASTROINTESTINAL: Denies abdominal pain. Denies nausea or vomiting. HEMATOLOGIC: Denies bleeding disorders. GENITOURINARY: Denies any blood in urine. SKIN: Denies pruitis. Denies rash. PHYSICAL EXAM: VITAL SIGNS: Reviewed. GENERAL: Well-developed in no acute distress. HEENT: Head is normocephalic. Pupils are equal, round. Sclerae anicteric. Mucous membranes of the mouth are moist. Neck supple. No JVD or thyromegaly LUNGS: Respirations even and unlabored. Lungs diminished to auscultation bilaterally. HEART: Regular rate and rhythm. S1 and S2 heard. ABDOMEN: Soft. Nondistended. Nontender. EXTREMITIES: Left AKA. Normal range of motion. No clubbing or cyanosis. Peripheral pulses intact. No lower extremity edema NEUROLOGIC: Awake and alert. Oriented x 3. ASSESSMENT: Opiate overdose Shortness of breath, does not appear to be in acute CHF at this time Pneumonia Coronary artery disease with previous PCI Peripheral arterial disease History of left xqavm-ozl-dfvt amputation COPD Hypertension Hyperlipidemia Nicotine dependence PLAN: Obtain 2D echo to assess cardiac structure and function Continue current cardiac medications Wean oxygen as tolerated Pulmonary following Further recommendations pending patient course Nurse practitioner note has been reviewed by physician. Signing provider agrees with the documented findings, assessment, and plan of care. 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 knee wound + FOR MRSA. History of high left above-knee amputation done approximately 2009. Last Myocardial Infarction Date:: 2003 History of Any Multi-Drug Resistant Organisms: MRSA Date of last positivie culture/infection: 04/02/16 MDRO Source:: LT KNEE WOUND Past Surgical History: Heart Catheterization With Stent, Orthopedic Surgery Additional Past Surgical History / Comment(s): STENTS TO LEFT GROIN, LEFT BELOW THE KNEE AMPUTATION, unsuccessful revascularization left leg, shoulder surgery, surgical debridement of necrotic tissue left scrotal area, LT AKA 03/03/16. left testicle removed. heart stent x1 Past Anesthesia/Blood Transfusion Reactions: No Reported Reaction Date of Last Stent Placement:: 2006 Past Psychological History: Depression Smoking Status: Current every day smoker Past Alcohol Use History: None Reported Past Drug Use History: Marijuana - Past Family History Sister(s) Family Medical History: Cancer Additional Family Medical History / Comment(s): double mastectomy, still surviving Father Family Medical History: No Reported History Mother Family Medical History: No Reported History Additional Family Medical History / Comment(s): hypoglycemia Medications and Allergies Home Medications Medication Instructions Recorded Confirmed Type Aspirin 81 mg PO DAILY 01/14/14 08/29/21 History DULoxetine HCL [Cymbalta] 60 mg PO DAILY 01/14/14 08/29/21 History lisinopriL [Prinivil] 20 mg PO DAILY 01/14/14 08/29/21 History Escitalopram [Lexapro] 10 mg PO DAILY 06/13/18 08/29/21 History Pantoprazole Sodium [Protonix] 40 mg PO DAILY 06/13/18 08/29/21 History amLODIPine [Norvasc] 5 mg PO DAILY 06/13/18 08/29/21 History Gabapentin [Neurontin] 300 mg PO TID #9 cap 06/17/18 08/29/21 Rx Hydrocodone/Acetaminophen [[place] 1 tab PO Q6H PRN #12 tablet 06/17/18 08/29/21 Rx 10-325] fentaNYL 100MCG/HR PATCH 100 mcg TRANSDERM Q72H #1 patch 06/17/18 08/29/21 Rx [Duragesic 100MCG/HR] Enulose 10gm/15ml 20 gm PO Q48H PRN 07/16/20 08/29/21 History Multivitamins, Thera [Multivitamin 1 tab PO DAILY 07/16/20 08/29/21 History (formulary)] Atorvastatin [Lipitor] 80 mg PO DAILY #30 tab 07/20/20 08/29/21 Rx Metoprolol Succinate (ER) [Toprol 25 mg PO DAILY #30 tab.er.24h 07/20/20 08/29/21 Rx XL] Nitroglycerin Sl Tabs [Nitrostat] 0.4 mg SUBLINGUAL Q5M PRN #30 tab 07/20/20 08/29/21 Rx Budesonide-Formot 160-4.5 Mcg 2 puff INHALATION RT-BID 08/21/20 08/29/21 History [Symbicort 160-4.5 Mcg Inhaler] Albuterol Sulfate [Proair Hfa] 2 puff INHALATION RT-QID PRN 08/29/21 08/29/21 History Naloxone [Narcan] 1 mg SQ ONCE PRN 08/29/21 08/29/21 History Tamsulosin [Flomax] 0.4 mg PO DAILY 08/29/21 08/29/21 History Terbinafine [LamISIL] 250 mg PO DAILY 08/29/21 08/29/21 History Allergies Allergy/AdvReac Type Severity Reaction Status Date / Time azithromycin [From Zithromax] Allergy Rash/Hives Verified 08/29/21 10:52 Physical Exam Vitals: Vital Signs Temp Pulse Pulse Resp BP Pulse Ox FiO2 09/01/21 05:00 98 09/01/21 04:00 98.0 F 64 20 154/76 98 09/01/21 00:15 40 09/01/21 00:00 98.1 F 65 18 145/61 98 40 08/31/21 20:00 98.5 F 85 20 151/60 94 L 08/31/21 19:51 70 08/31/21 19:33 72 08/31/21 16:00 97.6 F 77 20 156/73 94 L 08/31/21 15:38 74 08/31/21 15:29 67 95 08/31/21 14:00 77 20 08/31/21 11:32 67 24 147/79 97 08/31/21 11:29 84 08/31/21 11:21 80 08/31/21 08:00 98.0 F 113 H 28 H 167/71 93 L Intake and Output 08/31/21 09/01/21 09/01/21 22:59 06:59 14:59 Output Total 1650 250 Balance -1650 -250 Output: Urine 1650 250 Uretheral (Russo) 350 Other: Voiding Method Indwelling Catheter Indwelling Catheter Results 09/01/21 06:06 09/01/21 06:06 Cardiac Enzymes 08/31/21 09/01/21 Range/Units 08:59 06:06 AST 38 42 (17-59) U/L CBC 08/31/21 09/01/21 Range/Units 08:59 06:06 WBC 9.7 7.2 (3.8-10.6) k/uL RBC 4.56 4.53 (4.30-5.90) m/uL Hgb 10.4 L 10.6 L (13.0-17.5) gm/dL Hct 36.6 L 36.2 L (39.0-53.0) % Plt Count 333 307 (150-450) k/uL Comprehensive Metabolic Panel 08/31/21 09/01/21 Range/Units 08:59 06:06 Sodium 136 L 135 L (137-145) mmol/L Potassium 3.9 3.9 (3.5-5.1) mmol/L Chloride 108 H 105 (98-107) mmol/L Carbon Dioxide 21 L 24 (22-30) mmol/L BUN 17 13 (9-20) mg/dL Creatinine 0.71 0.68 (0.66-1.25) mg/dL Glucose 185 H 108 H (74-99) mg/dL Calcium 7.8 L 7.9 L (8.4-10.2) mg/dL AST 38 42 (17-59) U/L ALT 24 28 (4-49) U/L Alkaline Phosphatase 65 66 (38-126) U/L Total Protein 5.1 L 5.2 L (6.3-8.2) g/dL Albumin 2.6 L 2.6 L (3.5-5.0) g/dL Current Medications Generic Name Dose Route Start Last Admin Trade Name Freq PRN Reason Stop Dose Admin Albuterol Sulfate 2 puff 08/29/21 11:19 Albuterol Hfa Inhaler INHALATION RT-QID PRN Shortness Of Breath Albuterol/Ipratropium 3 ml 08/29/21 12:00 08/31/21 19:32 Ipratropium-Albuterol 3 Ml Neb INHALATION 3 ml RT-QID MERRITT Administration Alprazolam 0.25 mg 08/31/21 05:09 Alprazolam 0.25 Mg Tab PO QID PRN Anxiety Amlodipine Besylate 5 mg 08/30/21 09:00 08/31/21 09:22 Amlodipine 5 Mg Tab PO 5 mg DAILY MERRITT Administration Aspirin 81 mg 08/30/21 09:00 08/31/21 09:22 Aspirin 81 Mg PO 81 mg DAILY MERRITT Administration Atorvastatin Calcium 80 mg 08/30/21 09:00 08/31/21 09:22 Atorvastatin 80 Mg Tab PO 80 mg DAILY MERRITT Administration Budesonide/Formoterol Fumarate 2 puff 08/29/21 20:00 08/31/21 19:32 Symbicort 160-4.5 Mcg Inhaler INHALATION 2 puff RT-BID MERRITT Administration Gabapentin 300 mg 08/29/21 23:00 08/31/21 21:39 Gabapentin 300 Mg Cap PO 300 mg TID MERRITT Administration Hydralazine HCl 10 mg 08/29/21 23:14 08/29/21 23:26 Hydralazine Hcl 20 Mg/Ml 1 Ml Vial IVP 10 mg Q6HR PRN Administration Blood Pressure - High Hydromorphone HCl 1 mg 08/29/21 05:52 09/01/21 02:49 Hydromorphone 1 Mg/Ml 1 Ml Syringe IVP 1 mg Q4HR PRN Administration Pain Sodium Chloride 1,000 mls @ 130 mls/hr 08/29/21 05:15 09/01/21 00:32 Saline 0.9% IV Not Given .Q7H42M [facility] Piperacillin Sod/Tazobactam 100 mls @ 25 mls/hr 08/29/21 12:00 09/01/21 06:28 Sod 3.375 gm/ Sodium Chloride IVPB Not Given Q8H [facility] Protocol Insulin Aspart 0 unit 08/30/21 21:00 09/01/21 06:49 Insulin Aspart (Novolog) 100 Unit/Ml Vial SQ Not Given ACHS [facility] Protocol Lisinopril 20 mg 08/30/21 09:00 08/31/21 09:22 Lisinopril 20 Mg Tab PO 20 mg DAILY MERRITT Administration Melatonin 10 mg 08/30/21 21:18 08/31/21 21:39 Melatonin 5 Mg Tablet PO 10 mg HS PRN Administration insomnia Metoprolol Succinate 25 mg 08/30/21 09:00 08/31/21 09:22 Metoprolol Succinate (Er) 25 Mg Tab.Er.24h PO 25 mg DAILY MERRITT Administration Multivitamins 1 each 08/30/21 09:00 08/31/21 09:22 Multivitamins, Thera 1 Each Tab PO 1 each DAILY MERRITT Administration Naloxone HCl 0.2 mg 08/29/21 05:12 Naloxone 0.4 Mg/Ml 1 Ml Vial IV Q2M PRN Opioid Reversal Nicotine 1 patch 08/29/21 23:00 08/31/21 09:22 Nicotine 21mg/24hr Patch TRANSDERM 1 patch DAILY MERRITT Administration Nystatin 1 applic 08/29/21 21:00 08/31/21 20:24 Nystatin 100,000 Unit/Gm Powd 15 Gm TOPICAL 1 applic BID MERRITT Administration Protocol Ondansetron HCl 4 mg 08/29/21 05:12 Ondansetron 4 Mg/2 Ml Vial IVP Q8HR PRN Nausea And Vomiting Pantoprazole Sodium 40 mg 08/30/21 07:30 09/01/21 07:00 Pantoprazole 40 Mg Tablet PO 40 mg DAILY@0730 MERRITT Administration Tamsulosin HCl 0.4 mg 08/30/21 09:00 08/31/21 09:22 Tamsulosin 0.4 Mg Cap.Er.24h PO 0.4 mg DAILY MERRITT Administration Intake and Output 08/31/21 09/01/21 09/01/21 22:59 06:59 14:59 Output Total 1650 250 Balance -1650 -250 Output: Urine 1650 250 Uretheral (Russo) 350 Other: Voiding Method Indwelling Catheter Indwelling Catheter 09/01/21 06:06 09/01/21 06:06
--- NOTE | 2021-09-01 12:32 | P.PN ---
Subjective Progress Note Date: 08/30/21 Principal diagnosis: Pneumonia, possible cellulitis Patient is a 71-year-old male with a past medical history significant for COPD diabetes mellitus hypertension left ajgco-sdw-tnnq potation presented to hospital for mental status changes and the patient was found unresponsive with unknown downtime. On today's evaluation that is 08/30/2021, the patient is afebrile the patient is currently breathing comfortably on high flow nasal cannula oxygen he denies having any chest pain he did have a cough not bring up any sputum no abdominal pain no diarrhea Objective - Vital Signs Vital signs: Vital Signs Temp 98.8 F 08/30/21 20:00 Pulse 81 08/30/21 20:00 Resp 18 08/30/21 20:00 BP 158/69 08/30/21 20:00 Pulse Ox 91 L 08/30/21 20:00 Intake & Output 08/30/21 08/30/21 08/31/21 06:59 18:59 06:59 Intake Total 240 Output Total 1475 1050 Balance -1475 -810 Weight 55.701 kg Intake: Oral 240 Output: Urine 1475 1050 Other: Voiding Method Indwelling Catheter Indwelling Catheter - Exam GENERAL DESCRIPTION: Elderly male lying in bed, no distress. No tachypnea or accessory muscle of respiration use. LUNGS: Unlabored breathing. Decreased intensity breath sounds HEART: S1, S2, regular rate and rhythm. No loud murmur ABDOMEN: Soft, no tenderness , guarding or rigidity, no organomegaly EXTREMITIES: No edema of feet. - Labs CBC & Chem 7: 09/01/21 06:06 09/01/21 06:06 Labs: Abnormal Lab Results - Last 24 Hours (Table) 08/30/21 08/30/21 08/30/21 Range/Units 06:50 06:50 11:51 WBC 12.8 H (3.8-10.6) k/uL Hgb 11.2 L (13.0-17.5) gm/dL MCH 22.9 L (25.0-35.0) pg MCHC 28.4 L (31.0-37.0) g/dL RDW 18.6 H (11.5-15.5) % Neutrophils # 11.3 H (1.3-7.7) k/uL Lymphocytes # 0.6 L (1.0-4.8) k/uL Chloride 111 H (98-107) mmol/L POC Glucose (mg/dL) 234 H (75-99) mg/dL Calcium 8.1 L (8.4-10.2) mg/dL Total Protein 5.4 L (6.3-8.2) g/dL Albumin 2.7 L (3.5-5.0) g/dL 08/30/21 08/30/21 Range/Units 16:34 20:21 WBC (3.8-10.6) k/uL Hgb (13.0-17.5) gm/dL MCH (25.0-35.0) pg MCHC (31.0-37.0) g/dL RDW (11.5-15.5) % Neutrophils # (1.3-7.7) k/uL Lymphocytes # (1.0-4.8) k/uL Chloride (98-107) mmol/L POC Glucose (mg/dL) 189 H 165 H (75-99) mg/dL Calcium (8.4-10.2) mg/dL Total Protein (6.3-8.2) g/dL Albumin (3.5-5.0) g/dL Microbiology - Last 24 Hours (Table) 08/29/21 12:36 Urine Culture - Preliminary Urine,Catheterized Assessment and Plan (1) Pneumonia Current Visit: Yes Status: Acute Code(s): J18.9 - PNEUMONIA, UNSPECIFIED ORG ANISM SNOMED Code(s): 629609185 Plan: 1patient presented to hospital with mental status changes unresponsive and respiratory failure and concern for possible aspiration pneumonitis. 2patient with right lower extremity wound likely from ruptured blister and mild cellulitis likely from gram-positive skin deanna. 3patient did have evidence of groin area cutaneous candidiasis 4-Patient has shown some clinical improvement and will continue with Zosyn while waiting for the culture to finalize 5nystatin powder to the groin twice daily. 6local wound care to the right lower extremity and right arm wound with dry Aquacel silver dressing change every 48 hour Time with Patient: Less than 30
[2021-09-01 14:28] VITALS: BMI 18.1
[2021-09-01] MEDS: methylPREDNISolone SOD SUCCI 125 MG/2 ML VIAL IV SCH ×3 (14:56→23:36)
[2021-09-01 16:13] LABS: Glucose,Whole Blood 189 mg/dL (75-99)
--- NOTE | 2021-09-01 18:34 | CA ---
Transthoracic Echo Report Name: Baldev Joyce Age: 71 Gender: M : 1950 Exam Date: 09/01/2021 09:55 Exam Location: [facility] Ht (in): 69 Wt (lb): 122 Ordering Physician: Fidencio Barrientos MD Attending/Referring Phys: Personnel Quality Assurance Auditor Belem Pacheco RDCS Procedure CPT: Indications: SHORTNESS OF BREATH Cardiac Hx: Technical Quality: Fair Contrast 1: Total Dose (mL): Contrast 2: Total Dose (mL): MEASUREMENTS (Male / Female) Normal Values 2D ECHO LV Diastolic Diameter PLAX 3.7 cm 4.2 - 5.9 / 3.9 - 5.3 cm LV Systolic Diameter PLAX 2.6 cm IVS Diastolic Thickness 1.2 cm 0.6 - 1.0 / 0.6 - 0.9 cm LVPW Diastolic Thickness 1.3 cm 0.6 - 1.0 / 0.6 - 0.9 cm LV Relative Wall Thickness 0.7 RV Internal Dim ED PLAX 4.5 cm LA Systolic Diameter LX 4.1 cm 3.0 - 4.0 / 2.7 - 3.8 cm M-MODE Aortic Root Diameter MM 3.8 cm MV E Point Septal Separation 1.1 cm AV Cusp Separation MM 1.8 cm DOPPLER AV Peak Velocity 154.8 cm/s AV Peak Gradient 9.6 mmHg MV Area PHT 5.1 cm??? MV Deceleration Time 194.8 ms TR Peak Velocity 397.2 cm/s TR Peak Gradient 63.1 mmHg Right Ventricular Systolic Press 68.1 mmHg FINDINGS Left Ventricle Left ventricular ejection fraction is estimated at 55-60 %. Left ventricular cavity size normal. Mild concentric left ventricular hypertrophy. Right Ventricle Severe right ventricular dilatation. Severe pulmonary hypertension. Right Atrium Normal right atrial size. Left Atrium Left atrial dilatation. No evidence for an atrial septal defect. Mitral Valve Mitral valve thickened. Mitral annular calcification. Aortic Valve Focal thickening of the aortic valve cusps. Tricuspid Valve Moderate tricuspid regurgitation. Pulmonic Valve Pulmonic valve not well visualized. Pericardium Normal pericardium. Aorta Mild aortic dilatation at the level of the sinuses of valsalva (root). CONCLUSIONS Mild left ventricular hypertrophy with preserved systolic function Severe RV enlargement with elevated right ventricular systolic pressures Previewed by: Dr. Carlos Enrique Doan MD (Electronically Signed) Final Date: 01 Sep 2021 18:33
--- NOTE | 2021-09-01 19:50 | P.PN ---
Subjective Progress Note Date: 09/01/21 Baledv Joyce, is a 71-year-old male patient who presented to the ER with concerns about mental status changes. According to ER record patient was found down unknown downtime with a significant amount of fentanyl patches on body. Patient has medical history of COPD, diabetes mellitus, hypertension, myocardial infarction osteoarthritis of vascular disease. Head CT was completed showing mild cerebral atrophy no acute intracranial abnormality no change. Chest x-ray completed showing mild cardiomegaly with mild interstitial edema correlate for CHF exacerbation developing right upper lung infiltrate cannot be excluded. Pelvis x-ray completed showing no new acute displaced fracture seen. UA comp leted showing large amount of blood and trace amount of leukocyte Estrace. Patient started on Rocephin. Upon exam patient remains in ER quite lethargic on 4 L nasal cannula. Bilateral legs appear red possible cellulitis. Patient started on Rocephin. Will consult pulmonary services for possible pneumonia repeat 2 view chest x-ray. 08/30/2021 patient was seen and examined on the medical floor he is alert and oriented 3 in no apparent distress, currently he is maintained on oxygen via nasal cannula at 6 L he required BiPAP throughout last night, he is still complaining of cough and shortness of breath and generalized body ache otherwise he denies any symptoms there is no fever or chills no headache or dizziness no chest pain no nausea or vomiting no abdominal pain no diarrhea and no urinary symptoms. Vital exam reveals a temperature of 98.1 pulse 122 respiration 38 blood pressure 168/74 pulse ox 93% on 6 L nasal cannula. On 08/31/2021 patient was seen and examined on the telemetry floor he is alert and oriented 3 in no apparent distress he had worsening shortness of breath las t night and required BiPAP, currently he is maintained on oxygen 10 L via nasal cannula, repeat chest x-ray revealed persistent but improving interstitial edema, clinically patient is feeling better he reports some improvement in the shortness of breath he is alert and oriented 3 in no distress there is no fever or chills no headache or dizziness no chest pain he has occasional cough no nausea or vomiting no abdominal pain no diarrhea and no urinary symptoms On 09/01/2021 patient was seen and examined on the telemetry floor he is alert and oriented 3 in no apparent distress there is no fever or chills no headache or dizziness no chest pain he stated that his shortness of breath is improving he has occasional cough no nausea or vomiting no abdominal pain no diarrhea and no urinary symptoms. He is complaining of worsening pain in the left hip. Objective - Vital Signs Vital signs: Vital Signs Temp 98 F 09/01/21 14:59 Pulse 78 09/01/21 14:59 Resp 20 09/01/21 14:59 BP 135/70 09/01/21 14:59 Pulse Ox 95 09/01/21 14:59 FiO2 40 09/01/21 00:15 Intake & Output 08/31/21 09/01/21 09/01/21 18:59 06:59 18:59 Intake Total 90 Output Total 2049 600 Balance -2049 90 Weight 55.701 kg Intake: Oral 90 Output: Urine 2049 600 Uretheral (Russo) 350 Other: Voiding Method Indwelling Catheter Indwelling Catheter Indwelling Catheter # Bowel Movements 1 - Exam In general patient is alert and oriented 3 in no apparent distress Head normocephalic and atraumatic Neck supple no JVD no goiter Lungs exam with a scattered crackles bilaterally no wheezing Heart regular rate and rhythm S1-S2, no rub or gallop Abdomen is soft nontender nondistended positive bowel sounds no hepatosplenomegaly Extremities no edema, xuips-rfb-tfal 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 Neuro no gross focal deficit - Labs CBC & Chem 7: 09/01/21 06:06 09/01/21 06:06 Labs: Abnormal Lab Results - Last 24 Hours (Table) 08/31/21 08/31/21 08/31/21 Range/Units 08:59 16:16 21:02 Hgb (13.0-17.5) gm/dL Hct (39.0-53.0) % MCV (80.0-100.0) fL MCH (25.0-35.0) pg MCHC (31.0-37.0) g/dL RDW (11.5-15.5) % Lymphocytes # (1.0-4.8) k/uL Sodium (137-145) mmol/L Glucose (74-99) mg/dL POC Glucose (mg/dL) 143 H 178 H (75-99) mg/dL Hemoglobin A1c 6.7 H (0.0-6.0) % Calcium (8.4-10.2) mg/dL Magnesium (1.6-2.3) mg/dL Total Protein (6.3-8.2) g/dL Albumin (3.5-5.0) g/dL 09/01/21 09/01/21 09/01/21 Range/Units 06:06 06:06 06:06 Hgb 10.6 L (13.0-17.5) gm/dL Hct 36.2 L (39.0-53.0) % MCV 79.9 L (80.0-100.0) fL MCH 23.3 L (25.0-35.0) pg MCHC 29.2 L (31.0-37.0) g/dL RDW 18.6 H (11.5-15.5) % Lymphocytes # 0.5 L (1.0-4.8) k/uL Sodium 135 L (137-145) mmol/L Glucose 108 H (74-99) mg/dL POC Glucose (mg/dL) (75-99) mg/dL Hemoglobin A1c (0.0-6.0) % Calcium 7.9 L (8.4-10.2) mg/dL Magnesium 1.5 L (1.6-2.3) mg/dL Total Protein 5.2 L (6.3-8.2) g/dL Albumin 2.6 L (3.5-5.0) g/dL 09/01/21 09/01/21 Range/Units 06:43 11:42 Hgb (13.0-17.5) gm/dL Hct (39.0-53.0) % MCV (80.0-100.0) fL MCH (25.0-35.0) pg MCHC (31.0-37.0) g/dL RDW (11.5-15.5) % Lymphocytes # (1.0-4.8) k/uL Sodium (137-145) mmol/L Glucose (74-99) mg/dL POC Glucose (mg/dL) 119 H 180 H (75-99) mg/dL Hemoglobin A1c (0.0-6.0) % Calcium (8.4-10.2) mg/dL Magnesium (1.6-2.3) mg/dL Total Protein (6.3-8.2) g/dL Albumin (3.5-5.0) g/dL Assessment and Plan Assessment: 1. Altered mental status changes secondary to opiate overdose with multiple fentenyl patches on body according to ER report 2. Hematuria and urinary tract infection. Patient will be started on Rocephin 3. Possible pneumonia. Patient started on IV antibiotics pulmonary service is consulted repeat two-view chest x-ray ordered 4. Cellulitis of lower extremities. Infectious disease services also consulted. 5. History of COPD 6. Underlying history of essential hypertension 7. Underlying history of hyperlipidemia 8. Underlying history of depression 9. Underlying chronic pain syndrome 10. Underlying history of GERD 11. Underlying history of peripheral vascular disease 12. Shortness of breath, related to pneumonia versus CHF, will check BNP, echocardiogram and consult cardiology DVT prophylaxis SCDs at this time due to hematuria and anemia. GI prophylaxis Protonix Pulmonary and infectious disease service is consulted Patient started on IV Rocephin Urine, blood and sputum cultures ordered Repeat chest x-ray ordered Repeat labs ordered
[2021-09-01 20:48] LABS: Glucose,Whole Blood 309 mg/dL (75-99)
[2021-09-01] MEDS: MELATONIN 5 MG TABLET PO PRN (23:37)
[2021-09-02] MEDS: PIPERACILLIN-TAZOBACTAM 3.375 GM in SODIUM CHLORIDE 0.9% 100 ML IVPB SCH ×3 (03:58→21:39)
[2021-09-02] MEDS: HYDROmorphone 1 MG/ML 1 ML SYRINGE IVP PRN (03:59)
[2021-09-02] MEDS: methylPREDNISolone SOD SUCCI 125 MG/2 ML VIAL IV SCH ×4 (06:37→23:36)
[2021-09-02] MEDS: PANTOPRAZOLE 40 MG TABLET PO SCH (06:37)
[2021-09-02] MEDS: INSULIN ASPART (NovoLOG) 100 UNIT/ML VIAL SQ SCH ×4 (06:38→21:39)
[2021-09-02 06:41] LABS: Glucose,Whole Blood 210 mg/dL (75-99)
--- NOTE | 2021-09-02 07:02 | P.PN ---
Subjective Progress Note Date: 08/31/21 Principal diagnosis: Pneumonia, possible cellulitis Patient is a 71-year-old male with a past medical history significant for COPD diabetes mellitus hypertension left pxbyq-sfd-ihrj potation presented to hospital for mental status changes and the patient was found unresponsive with unknown downtime. On today's evaluation that is 08/31/2021, the patient remains to be afebrile the patient is breathing comfortably on high flow nasal cannula oxygen , the patient denies having any chest pain he did have a cough not bring up any sputum no abdominal pain no diarrhea Objective - Vital Signs Vital signs: Vital Signs Temp 98.0 F 08/31/21 08:00 Pulse 74 08/31/21 15:38 Resp 24 08/31/21 11:32 BP 147/79 08/31/21 11:32 Pulse Ox 95 08/31/21 15:29 Intake & Output 08/30/21 08/31/21 08/31/21 18:59 06:59 18:59 Intake Total 240 1140 Output Total 1050 275 750 Balance -810 865 -750 Intake: Intake, IV Titration 1140 Amount Piperacillin-Tazobactam 3 100 .375 gm In Sodium Chloride 0.9% 100 ml @ 25 mls/hr IVPB Q8H [facility] Rx#: [id number] Sodium Chloride 0.9% 1, 1040 000 ml @ 130 mls/hr IV . Q7H42M [facility] Rx#:[id number] Oral 240 Output: Urine 1050 275 750 Other: Voiding Method Indwelling Catheter Indwelling Catheter Indwelling Catheter # Bowel Movements 1 - Exam GENERAL DESCRIPTION: Elderly male lying in bed, no distress. No tachypnea or accessory muscle of respiration use. LUNGS: Unlabored breathing. Decreased intensity breath sounds HEART: S1, S2, regular rate and rhythm. No loud murmur ABDOMEN: Soft, no tenderness , guarding or rigidity, no organomegaly EXTREMITIES: No edema of feet. - Labs CBC & Chem 7: 09/01/21 06:06 09/01/21 06:06 Labs: Abnormal Lab Results - Last 24 Hours (Table) 08/30/21 08/30/21 08/31/21 Range/Units 16:34 20:21 04:04 Hgb (13.0-17.5) gm/dL Hct (39.0-53.0) % MCH (25.0-35.0) pg MCHC (31.0-37.0) g/dL RDW (11.5-15.5) % Neutrophils # (1.3-7.7) k/uL Lymphocytes # (1.0-4.8) k/uL Sodium (137-145) mmol/L Chloride (98-107) mmol/L Carbon Dioxide (22-30) mmol/L Glucose (74-99) mg/dL POC Glucose (mg/dL) 189 H 165 H 130 H (75-99) mg/dL Calcium (8.4-10.2) mg/dL Total Protein (6.3-8.2) g/dL Albumin (3.5-5.0) g/dL 08/31/21 08/31/21 08/31/21 Range/Units 05:47 08:01 08:59 Hgb 10.4 L (13.0-17.5) gm/dL Hct 36.6 L (39.0-53.0) % MCH 22.9 L (25.0-35.0) pg MCHC 28.5 L (31.0-37.0) g/dL RDW 18.5 H (11.5-15.5) % Neutrophils # 8.8 H (1.3-7.7) k/uL Lymphocytes # 0.3 L (1.0-4.8) k/uL Sodium (137-145) mmol/L Chloride (98-107) mmol/L Carbon Dioxide (22-30) mmol/L Glucose (74-99) mg/dL POC Glucose (mg/dL) 126 H 188 H (75-99) mg/dL Calcium (8.4-10.2) mg/dL Total Protein (6.3-8.2) g/dL Albumin (3.5-5.0) g/dL 08/31/21 08/31/21 Range/Units 08:59 11:34 Hgb (13.0-17.5) gm/dL Hct (39.0-53.0) % MCH (25.0-35.0) pg MCHC (31.0-37.0) g/dL RDW (11.5-15.5) % Neutrophils # (1.3-7.7) k/uL Lymphocytes # (1.0-4.8) k/uL Sodium 136 L (137-145) mmol/L Chloride 108 H (98-107) mmol/L Carbon Dioxide 21 L (22-30) mmol/L Glucose 185 H (74-99) mg/dL POC Glucose (mg/dL) 158 H (75-99) mg/dL Calcium 7.8 L (8.4-10.2) mg/dL Total Protein 5.1 L (6.3-8.2) g/dL Albumin 2.6 L (3.5-5.0) g/dL Microbiology - Last 24 Hours (Table) 08/29/21 12:36 Urine Culture - Final Urine,Catheterized Assessment and Plan (1) Aspiration pneumonia Current Visit: No Status: Acute Code(s): J69.0 - PNEUMONITIS DUE TO INHALATION OF FOOD AND VOMIT SNOMED Code(s): 025846386 Plan: 1patient presented to hospital with mental status changes unresponsive and respiratory failure and concern for possible aspiration pneumonitis. 2patient with right lower extremity wound likely from ruptured blister and mild cellulitis likely from gram-positive skin deanna. 3patient did have evidence of groin area cutaneous candidiasis 4-Patient did have clinical improvement and will continue with Zosyn will try to open his sputum to narrow down on antibiotics 5nystatin powder to the groin twice daily. 6local wound care to the right lower extremity and right arm wound with dry Aquacel silver dressing change every 48 hour Time with Patient: Less than 30
--- NOTE | 2021-09-02 07:04 | P.PN ---
Subjective Progress Note Date: 09/01/21 Principal diagnosis: Pneumonia, possible cellulitis Patient is a 71-year-old male with a past medical history significant for COPD diabetes mellitus hypertension left epgka-xhi-eiys potation presented to hospital for mental status changes and the patient was found unresponsive with unknown downtime. On today's evaluation that is 09/01/2021, the patient continues to be afebrile the patient is breathing comfortably on high flow nasal cannula oxygen however is requiring BiPAP off and on, the patient denies having any chest pain he did have a cough not bring up any sputum no abdominal pain no diarrhea Objective - Vital Signs Vital signs: Vital Signs Temp 97.8 F 09/01/21 08:00 Pulse 76 09/01/21 12:02 Resp 22 09/01/21 08:00 BP 149/69 09/01/21 08:00 Pulse Ox 94 L 09/01/21 08:00 FiO2 40 09/01/21 00:15 Intake & Output 08/31/21 09/01/21 09/01/21 18:59 06:59 18:59 Intake Total 90 Output Total 2049 600 Balance -2049 - 90 Intake: Oral 90 Output: Urine 2049 600 Uretheral (Russo) 350 Other: Voiding Method Indwelling Catheter Indwelling Catheter Indwelling Catheter # Bowel Movements 1 - Exam GENERAL DESCRIPTION: Elderly male lying in bed, no distress. No tachypnea or accessory muscle of respiration use. LUNGS: Unlabored breathing. Decreased intensity breath sounds HEART: S1, S2, regular rate and rhythm. No loud murmur ABDOMEN: Soft, no tenderness , guarding or rigidity, no organomegaly EXTREMITIES: No edema of feet. - Labs CBC & Chem 7: 09/01/21 06:06 09/01/21 06:06 Labs: Abnormal Lab Results - Last 24 Hours (Table) 08/31/21 08/31/21 08/31/21 Range/Units 08:59 16:16 21:02 Hgb (13.0-17.5) gm/dL Hct (39.0-53.0) % MCV (80.0-100.0) fL MCH (25.0-35.0) pg MCHC (31.0-37.0) g/dL RDW (11.5-15.5) % Lymphocytes # (1.0-4.8) k/uL Sodium (137-145) mmol/L Glucose (74-99) mg/dL POC Glucose (mg/dL) 143 H 178 H (75-99) mg/dL Hemoglobin A1c 6.7 H (0.0-6.0) % Calcium (8.4-10.2) mg/dL Magnesium (1.6-2.3) mg/dL Total Protein (6.3-8.2) g/dL Albumin (3.5-5.0) g/dL 09/01/21 09/01/21 09/01/21 Range/Units 06:06 06:06 06:06 Hgb 10.6 L (13.0-17.5) gm/dL Hct 36.2 L (39.0-53.0) % MCV 79.9 L (80.0-100.0) fL MCH 23.3 L (25.0-35.0) pg MCHC 29.2 L (31.0-37.0) g/dL RDW 18.6 H (11.5-15.5) % Lymphocytes # 0.5 L (1.0-4.8) k/uL Sodium 135 L (137-145) mmol/L Glucose 108 H (74-99) mg/dL POC Glucose (mg/dL) (75-99) mg/dL Hemoglobin A1c (0.0-6.0) % Calcium 7.9 L (8.4-10.2) mg/dL Magnesium 1.5 L (1.6-2.3) mg/dL Total Protein 5.2 L (6.3-8.2) g/dL Albumin 2.6 L (3.5-5.0) g/dL 09/01/21 09/01/21 Range/Units 06:43 11:42 Hgb (13.0-17.5) gm/dL Hct (39.0-53.0) % MCV (80.0-100.0) fL MCH (25.0-35.0) pg MCHC (31.0-37.0) g/dL RDW (11.5-15.5) % Lymphocytes # (1.0-4.8) k/uL Sodium (137-145) mmol/L Glucose (74-99) mg/dL POC Glucose (mg/dL) 119 H 180 H (75-99) mg/dL Hemoglobin A1c (0.0-6.0) % Calcium (8.4-10.2) mg/dL Magnesium (1.6-2.3) mg/dL Total Protein (6.3-8.2) g/dL Albumin (3.5-5.0) g/dL Assessment and Plan (1) Pneumonia Current Visit: Yes Status: Acute Code(s): J18.9 - PNEUMONIA, UNSPECIFIED ORGANISM SNOMED Code(s): 833272870 Plan: 1patient presented to hospital with mental status changes unresponsive and respiratory failure and concern for possible aspiration pneumonitis. 2patient with right lower extremity wound likely from ruptured blister and mild cellulitis likely from gram-positive skin deanna. 3patient did have evidence of groin area cutaneous candidiasis 4-Patient is slowly clinically improving with Zosyn which will be continued will try to open his sputum to narrow down on antibiotics 5nystatin powder to the groin twice daily. Which has shown improvement 6local wound care to the right lower extremity and right arm wound with dry Aquacel silver dressing change every 48 hour Time with Patient: Less than 30
[2021-09-02] MEDS: SYMBICORT 160-4.5 MCG INHALER INHALATION SCH ×2 (08:35→21:09)
[2021-09-02] MEDS: IPRATROPIUM-ALBUTEROL 3 ML NEB INHALATION SCH ×4 (08:35→21:09)
[2021-09-02] MEDS: ASPIRIN 81 MG PO SCH (09:01)
[2021-09-02] MEDS: GABAPENTIN 300 MG CAP PO SCH ×3 (09:01→21:39)
[2021-09-02] MEDS: METOPROLOL SUCCINATE (ER) 25 MG TAB.ER.24H PO SCH (09:01)
[2021-09-02] MEDS: TAMSULOSIN 0.4 MG CAP.ER.24H PO SCH (09:01)
[2021-09-02] MEDS: NICOTINE 21MG/24HR PATCH TRANSDERM SCH (09:01)
[2021-09-02] MEDS: lisinopriL 20 MG TAB PO SCH (09:01)
[2021-09-02] MEDS: ATORVASTATIN 80 MG TAB PO SCH (09:01)
[2021-09-02] MEDS: amLODIPine 5 MG TAB PO SCH (09:01)
[2021-09-02 11:48] LABS: Glucose,Whole Blood 152 mg/dL (75-99)
[2021-09-02] MEDS: NYSTATIN 100,000 UNIT/GM POWD 15 GM TOPICAL SCH ×2 (12:13→21:40)
[2021-09-02] MEDS: MULTIVITAMINS, THERA 1 EACH TAB PO SCH (12:24)
[2021-09-02] MEDS: HYDROcodone/APAP 10-325MG 1 EACH TAB PO PRN ×2 (13:07→21:45)
--- NOTE | 2021-09-02 13:34 | P.PN ---
Subjective Progress Note Date: 09/02/21 HISTORY OF PRESENT ILLNESS: This is a 71-year-old male with a past medical history significant for coronary artery disease with previous stenting of the LAD and RCA, peripheral arterial disease, left zprcv-zeo-htpf amputation, nicotine dependence, COPD, hypertension, and hyperlipidemia. Patient follows in the office with Dr. Palafox. We have been asked to see the patient in consultation for shortness of breath. Patient examined at the bedside. The patient was admitted to the hospital after being found down at home with multiple fentanyl patches. The patient is currently being treated for aspiration pneumonia. He is currently on a liters nasal cannula. He reports his shortness of breath is improving. He is laying flat in bed and appears to be comfortable at rest. He denies any chest pain or pressure. * EKG reveals sinus mechanism with no signs of acute ischemia * Chest xray mild cardiomegaly with mild interstitial edema. Correlate for CHF exacerbation. Developing right upper lung infiltrate cannot be excluded * Laboratory data: WBC 7.2. Hemoglobin 10.6. Platelet count 307. Sodium 135. Potassium 3.9. BUN 13. Creatinine 0.68. ProBNP 6400 * Current home cardiac medications include aspirin 81 mg daily, Lipitor 80 mg daily, metoprolol succinate 25 mg daily, amlodipine 5 mg daily, lisinopril 20 mg daily * Most recent echocardiogram obtained in July 2020 revealed ejection fraction 55-60%, trace MR, trace TR * Cardiac catheterization history: July 2020 with stenting of the mid RCA 09/02/2021 Patient examined this morning at the bedside. He denies CP. Reports improvement in his SOB. Patient is currently on 6 L nasal cannula. Echocardiogram completed revealing ejection fraction 55-60%, severe pulmonary hypertension, moderate tricuspid regurgitation. PHYSICAL EXAM: VITAL SIGNS: Reviewed. GENERAL: Well-developed in no acute distress. HEENT: Head is normocephalic. Pupils are equal, round. Sclerae anicteric. Mucous membranes of the mouth are moist. Neck supple. No JVD or thyromegaly LUNGS: Respirations even and unlabored. Lungs diminished to auscultation bilaterally. HEART: Regular rate and rhythm. S1 and S2 heard. ABDOMEN: Soft. Nondistended. Nontender. EXTREMITIES: Left AKA. Normal range of motion. No clubbing or cyanosis. Peripheral pulses intact. No lower extremity edema NEUROLOGIC: Awake and alert. Oriented x 3. ASSESSMENT: Opiate overdose Shortness of breath, does not appear to be in acute CHF at this time Pneumonia Coronary artery disease with previous PCI Peripheral arterial disease History of left qbfpb-rsr-iqgm amputation COPD Hypertension Hyperlipidemia Nicotine dependence PLAN: Continue current cardiac medications Wean oxygen as tolerated Pulmonary following Further recommendations pending patient course Nurse practitioner note has been reviewed by physician. Signing provider agrees with the documented findings, assessment, and plan of care. Objective - Vital Signs Vital signs: Vital Signs Temp 98.6 F 09/02/21 04:00 Pulse 80 09/02/21 11:29 Resp 18 09/02/21 11:29 BP 166/78 09/02/21 04:00 Pulse Ox 97 09/02/21 08:36 FiO2 40 09/01/21 00:15 Intake & Output 09/01/21 09/02/21 09/02/21 18:59 06:59 18:59 Intake Total 90 940 Output Total 1200 Balance 90 -260 Weight 55.701 kg Intake: Intake, IV Titration 100 Amount Piperacillin-Tazobactam 3 100 .375 gm In Sodium Chloride 0.9% 100 ml @ 25 mls/hr IVPB Q8H [facility] Rx#: [id number] Oral 90 840 Output: Urine 1200 Uretheral (Russo) 1200 Other: Voiding Method Indwelling Catheter Indwelling Catheter # Bowel Movements 1 - Labs CBC & Chem 7: 09/01/21 06:06 09/01/21 06:06 Labs: Abnormal Lab Results - Last 24 Hours (Table) 09/01/21 09/01/21 09/02/21 Range/Units 16:12 20:31 06:27 POC Glucose (mg/dL) 189 H 309 H 210 H (75-99) mg/dL 09/02/21 Range/Units 11:46 POC Glucose (mg/dL) 152 H (75-99) mg/dL
--- NOTE | 2021-09-02 13:40 | P.PN ---
Subjective Progress Note Date: 09/02/21 Acute hypoxic and hypercapnic respiratory failure secondary to aspiration pneumonia, opiate overdose, and suspect underlying COPD 71-year-old white male patient with known history of COPD, hypertension, diabetes mellitus type 2, history of left [id number] amputation in 2009 for nonhealing wound related to MRSA infection, osteoarthritis, peripheral vascular disease with previous intervention of the left leg, who presented to the ER 08/29/2021 by EMS for evaluation of altered mental status. Patient was found down with unknown downtime. He was found was significant amount of fentanyl patches on, unresponsive, and unable to provide any history. Brain CT shows no acute intracranial abnormality. Chest x-ray showed mild cardiomegaly with mild interstitial edema and developing right upper lobe infiltrate. Pelvis x-ray was obtained related to a fall with possibility of injury, showing no acute displaced fracture. Lab work showed white blood cell count of 8.3, hemoglobin of 9.3, INR is 1.0, BUN of 49, creatinine 0.98, electrolytes were unremarkable, LFTs were within normal limits, ammonia level was less than 9, CK-MB was 3.3, troponin was less than 0.012, urinalysis showed large amount of blood, trace leukocyte esterase, 6 white blood cells, no clear evidence of urinary tract infection. Urine drug screen was positive for opiates, and marijuana, serum alcohol level was less than 10. Patient was started on antibiotics, breathing treatments, he was given 2-1/2 L of fluid boluses, and his IV fluids are infusing at a rate of 130 ml. The patient is seen today 08/30/2021 in follow-up on the regular medical floor. He is currently resting in bed. More awake and alert. Oriented 3. He is still on 10 L high flow nasal cannula. 0.9 normal saline at 130 MLS per hour. Urine culture pending. White count 12.8. Hemoglobin 11.2. Sodium 141. Potassium 4.2. Bicarb 24. BUN 19. Creatinine 0.69. Continued on DuoNeb inhalations, Symbicort. NicoDerm patches in place. Remains on Zosyn. Reevaluated today on 08/31/2021, patient remains on the regular medical floor, tells me that his feeling better today, breathing easier. Patient has BiPAP at bedside, he is now on 10 L high flow nasal cannula, and O2 sats is 97%. Patient does not seem to be very compliant with BiPAP. Chest x-ray showed persistent interstitial infiltrates/edema however the findings seem to be mostly in the left lower lobe hence I am favoring pneumonia over pulmonary edema WBC count is 9.7 hemoglobin is 10.4 electrodes are normal renal profile is normal I 2021, the patient remains on a medical floor. He is on 8 L of O2 nasal cannula. Pulse ox is 94%. Using the BiPAP on and off during the day. Feeling well. He is feeling less short of breath. The chest x-ray showing COPD along with a left lower lobe consolidation. The patient remains on IV Zosyn covering the patient for an aspiration pneumonia. No nausea. No vomiting. No emesis. He is a chronic smoker. He also has severe peripheral vascular disease with previous above-knee 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. No signs of any acute infection. He has overdosed on fentanyl patches. He smokes also marijuana. IV fluids are currently at 25 mL's an hour. Is tolerating his diet. No signs of any withdrawal. 09/02/2021, I'm seeing the patient for a follow-up. Doing well. No specific complaints no chest pain. No nausea or vomiting. The patient's FiO2 has been reduced down to 5 L and the patient's current pulse ox is around 95%. I dropped it down further to 4 L. The patient remains on IV Zosyn. He is communicating. No altered mentation. Remains on bronchodilators. He remains on steroids with IV Solu Medrol 60 mg every 6 hours IV. No other significant events overnight. Tolerating his diet. No aspiration. Objective - Vital Signs Vital signs: Vital Signs Temp 98.6 F 09/02/21 04:00 Pulse 80 09/02/21 11:29 Resp 18 09/02/21 11:29 BP 166/78 09/02/21 04:00 Pulse Ox 97 09/02/21 08:36 FiO2 40 09/01/21 00:15 Intake & Output 09/01/21 09/02/21 09/02/21 18:59 06:59 18:59 Intake Total 90 940 Output Total 1200 Balance 90 -260 Weight 55.701 kg Intake: Intake, IV Titration 100 Amount Piperacillin-Tazobactam 3 100 .375 gm In Sodium Chloride 0.9% 100 ml @ 25 mls/hr IVPB Q8H [facility] Rx#: [id number] Oral 90 840 Output: Urine 1200 Uretheral (Russo) 1200 Other: Voiding Method Indwelling Catheter Indwelling Catheter # Bowel Movements 1 - Exam GENERAL EXAM: Alert, pleasant 71-year-old male patient, on 4 L high flow nasal cannula, O2 saturation 97%. HEAD: Normocephalic/atraumatic. HEENT: PERRLA, EOMI, anicteric, no neck masses, no JVD. Moist mucous membranes. CHEST: No chest wall deformity. Symmetrical expansion. LUNGS: Scattered rhonchi and wheezes noted bilaterally. CVS: Regular rate and rhythm, normal S1 and S2, no gallops, no murmurs, no rubs ABDOMEN: Soft, nontender. No hepatosplenomegaly, normal bowel sounds, no guarding or rigidity. EXTREMITIES: No clubbing, no edema, no cyanosis, 2+ pulses and upper and lower extremities. Left iqhmk-yjc-kljf amputee, chronic superficial ulcerations and venous stasis changes noted in the right lower extremity MUSCULOSKELETAL: No deformities noted the patient is range of motion, however the patient does have left AKA SKIN: No rashes CENTRAL NERVOUS SYSTEM: Alert, oriented. No focal deficits, - Labs CBC & Chem 7: 09/01/21 06:06 09/01/21 06:06 Labs: Abnormal Lab Results - Last 24 Hours (Table) 09/01/21 09/01/21 09/02/21 Range/Units 16:12 20:31 06:27 POC Glucose (mg/dL) 189 H 309 H 210 H (75-99) mg/dL 09/02/21 Range/Units 11:46 POC Glucose (mg/dL) 152 H (75-99) mg/dL Assessment and Plan Plan: Acute hypoxic and hypercapnic respiratory failure related to aspiration pneumonia, and opiate overdose as well as underlying COPD mild currently on 4 L of oxygen by nasal cannula. The patient does not have home O2. He has a nebulizer that he does albuterol nebulized treatments as needed. Currently has a left lower lobe pneumonia in addition and the patient is currently on IV Zosyn. Left lower lobe pneumonia, consider aspiration Suspect opiate overdose History of COPD Acute mental status change multifactorial related to toxic and metabolic encephalopathy, improved Diabetes mellitus type 2 Chronic back pain History of left dbozt-[id number]-[id number] amputation for nonhealing left leg wound and MRSA infection History of peripheral vascular disease with previous intervention the left leg History of coronary artery disease with stenting Plan: Continue oxygen. Wean down the patient to 4 L and the patient was encouraged to use incentive spirometer and deep breathing Continue Zosyn empirically. Continue bronchodilators. Start the patient IV Solu-Medrol 60 mg every 6 hours, was started using the IV Solu Medrol as of tomorrow Use BiPAP as needed for hypercapnia. I will be used on and off during the day. Provide the patient incentive spirometer Counseled regarding smoking cessation. Continue nicotine patches. Continue to avoid narcotics and sedatives. We will continue to follow, patient is not ready for any discharge planning We will likely need home O2 Has a home nebulizer.
[2021-09-02] MEDS: ALPRAZolam 0.25 MG TAB PO PRN ×2 (15:21→23:36)
[2021-09-02 17:07] LABS: Glucose,Whole Blood 209 mg/dL (75-99)
--- NOTE | 2021-09-02 17:45 | XR ---
EXAMINATION TYPE: XR Hip LT and AP Pelvis DATE OF EXAM: 09/02/2021 COMPARISON: 08/29/2021 HISTORY: Pain TECHNIQUE: 3 views FINDINGS: There is intertrochanteric fracture left femur without significant change in position rama red to last exam. The pelvic ring is intact. There is left iliac artery stents. There is_vascular nadir cification. Pelvic ring appears intact. IMPRESSION: Intertrochanteric fracture left femur without change. No pelvic fracture seen.
--- NOTE | 2021-09-02 18:52 | XR ---
EXAMINATION TYPE: XR chest 2V DATE OF EXAM: 09/02/2021 COMPARISON: 08/31/2021 HISTORY: Short of breath TECHNIQUE: FINDINGS: There is mild pulmonary vascular congestion. There is blunting of the costophrenic angles a nd more on the left side. There are chest leads. Heart size is fairly normal. IMPRESSION: There is some infiltrate and pleural fluid in the left lower lobe which is increased slig htly compared to recent exam. Small right pleural effusion unchanged. Mild heart failure is possible.
--- NOTE | 2021-09-02 19:13 | P.PN ---
Subjective Progress Note Date: 09/02/21 Baldev Joyce, is a 71-year-old male patient who presented to the ER with concerns about mental status changes. According to ER record patient was found down unknown downtime with a significant amount of fentanyl patches on body. Patient has medical history of COPD, diabetes mellitus, hypertension, myocardial infarction osteoarthritis of vascular disease. Head CT was completed showing mild cerebral atrophy no acute intracranial abnormality no change. Chest x-ray completed showing mild cardiomegaly with mild interstitial edema correlate for CHF exacerbation developing right upper lung infiltrate cannot be excluded. Pelvis x-ray completed showing no new acute displaced fracture seen. UA comp leted showing large amount of blood and trace amount of leukocyte Estrace. Patient started on Rocephin. Upon exam patient remains in ER quite lethargic on 4 L nasal cannula. Bilateral legs appear red possible cellulitis. Patient started on Rocephin. Will consult pulmonary services for possible pneumonia repeat 2 view chest x-ray. 08/30/2021 patient was seen and examined on the medical floor he is alert and oriented 3 in no apparent distress, currently he is maintained on oxygen via nasal cannula at 6 L he required BiPAP throughout last night, he is still complaining of cough and shortness of breath and generalized body ache otherwise he denies any symptoms there is no fever or chills no headache or dizziness no chest pain no nausea or vomiting no abdominal pain no diarrhea and no urinary symptoms. Vital exam reveals a temperature of 98.1 pulse 122 respiration 38 blood pressure 168/74 pulse ox 93% on 6 L nasal cannula. On 08/31/2021 patient was seen and examined on the telemetry floor he is alert and oriented 3 in no apparent distress he had worsening shortness of breath las t night and required BiPAP, currently he is maintained on oxygen 10 L via nasal cannula, repeat chest x-ray revealed persistent but improving interstitial edema, clinically patient is feeling better he reports some improvement in the shortness of breath he is alert and oriented 3 in no distress there is no fever or chills no headache or dizziness no chest pain he has occasional cough no nausea or vomiting no abdominal pain no diarrhea and no urinary symptoms On 09/01/2021 patient was seen and examined on the telemetry floor he is alert and oriented 3 in no apparent distress there is no fever or chills no headache or dizziness no chest pain he stated that his shortness of breath is improving he has occasional cough no nausea or vomiting no abdominal pain no diarrhea and no urinary symptoms. He is complaining of worsening pain in the left hip. On 09/02/2021 patient is alert and oriented 3 in no apparent distress there is no fever or chills no headache or dizziness no chest pain he stated that his shortness of breath is improving he has occasional cough no nausea or vomiting no abdominal pain no diarrhea and no urinary symptoms. Repeat chest x-ray and left hip x-ray are pending, patient remains on IV Solu-Medrol and IV Zosyn, will continue to follow Objective - Vital Signs Vital signs: Vital Signs Temp 98.6 F 09/02/21 04:00 Pulse 80 09/02/21 08:47 Resp 18 09/02/21 08:47 BP 166/78 09/02/21 04:00 Pulse Ox 97 09/02/21 08:36 FiO2 40 09/01/21 00:15 Intake & Output 09/01/21 09/02/21 09/02/21 18:59 06:59 18:59 Intake Total 90 940 Output Total 1200 Balance 90 -260 Weight 55.701 kg Intake: Intake, IV Titration 100 Amount Piperacillin-Tazobactam 3 100 .375 gm In Sodium Chloride 0.9% 100 ml @ 25 mls/hr IVPB Q8H [facility] Rx#: [id number] Oral 90 840 Output: Urine 1200 Uretheral (Russo) 1200 Other: Voiding Method Indwelling Catheter Indwelling Catheter # Bowel Movements 1 - Exam In general patient is alert and oriented 3 in no apparent distress Head normocephalic and atraumatic Neck supple no JVD no goiter Lungs exam with a scattered crackles bilaterally no wheezing Heart regular rate and rhythm S1-S2, no rub or gallop Abdomen is soft nontender nondistended positive bowel sounds no hepatosplenomegaly Extremities no edema, ltnps-[id number] 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 Neuro no gross focal deficit - Labs CBC & Chem 7: 09/01/21 06:06 09/01/21 06:06 Labs: Abnormal Lab Results - Last 24 Hours (Table) 09/01/21 09/01/21 09/01/21 Range/Units 06:06 11:42 16:12 POC Glucose (mg/dL) 180 H 189 H (75-99) mg/dL Magnesium 1.5 L (1.6-2.3) mg/dL 09/01/21 09/02/21 Range/Units 20:31 06:27 POC Glucose (mg/dL) 309 H 210 H (75-99) mg/dL Magnesium (1.6-2.3) mg/dL Assessment and Plan Assessment: 1. Altered mental status changes secondary to opiate overdose with multiple fentenyl patches on body according to ER report 2. Hematuria and urinary tract infection. Patient will be started on Rocephin 3. Possible pneumonia. Patient started on IV antibiotics pulmonary service is consulted repeat two-view chest x-ray ordered 4. Cellulitis of lower extremities. Infectious disease services also consulted. 5. History of COPD 6. Underlying history of essential hypertension 7. Underlying history of hyperlipidemia 8. Underlying history of depression 9. Underlying chronic pain syndrome 10. Underlying history of GERD 11. Underlying history of peripheral vascular disease 12. Shortness of breath, related to pneumonia versus CHF, will check BNP, echocardiogram and consult cardiology DVT prophylaxis SCDs at this time due to hematuria and anemia. GI prophylaxis Protonix Pulmonary and infectious disease service is consulted Patient started on IV Rocephin Urine, blood and sputum cultures ordered Repeat chest x-ray ordered Repeat labs ordered
[2021-09-02 20:36] LABS: Glucose,Whole Blood 217 mg/dL (75-99)
[2021-09-03] MEDS: PIPERACILLIN-TAZOBACTAM 3.375 GM in SODIUM CHLORIDE 0.9% 100 ML IVPB SCH ×3 (04:05→21:22)
[2021-09-03 06:26] LABS: Glucose,Whole Blood 192 mg/dL (75-99)
[2021-09-03] MEDS: INSULIN ASPART (NovoLOG) 100 UNIT/ML VIAL SQ SCH ×4 (06:33→21:24)
[2021-09-03] MEDS: HYDROcodone/APAP 10-325MG 1 EACH TAB PO PRN ×4 (06:33→23:24)
[2021-09-03] MEDS: methylPREDNISolone SOD SUCCI 125 MG/2 ML VIAL IV SCH (06:34)
[2021-09-03] MEDS: SYMBICORT 160-4.5 MCG INHALER INHALATION SCH ×2 (07:25→21:01)
[2021-09-03] MEDS: IPRATROPIUM-ALBUTEROL 3 ML NEB INHALATION SCH ×4 (07:25→20:50)
--- NOTE | 2021-09-03 08:16 | XR ---
EXAMINATION TYPE: XR chest 2V DATE OF EXAM: 09/03/2021 COMPARISON: Chest x-ray 09/02/2021 HISTORY: Redness of breath TECHNIQUE: Frontal and lateral views of the chest are obtained. FINDINGS: There are prominent lung volumes. Blunting the costophrenic angles is noted, hyperinflatio n may cause this appearance on the right. There are coronary artery calcifications. Aorta is dense. N o evident pneumothorax. Cardiac mediastinal silhouette is stable. Patient is rotated. Interstitium is increased. Questionable nodular density in the right upper lobe. IMPRESSION: There is underlying COPD. Difficult to exclude basilar effusion, associated atelectasis versus pneumonia. Coronary artery disease. Possible right upper lobe nodule, consider follow-up, ches t CT.
[2021-09-03] MEDS: ATORVASTATIN 80 MG TAB PO SCH (08:58)
[2021-09-03] MEDS: lisinopriL 20 MG TAB PO SCH (08:58)
[2021-09-03] MEDS: TAMSULOSIN 0.4 MG CAP.ER.24H PO SCH (08:58)
[2021-09-03] MEDS: METOPROLOL SUCCINATE (ER) 25 MG TAB.ER.24H PO SCH (08:58)
[2021-09-03] MEDS: MULTIVITAMINS, THERA 1 EACH TAB PO SCH (08:58)
[2021-09-03] MEDS: NICOTINE 21MG/24HR PATCH TRANSDERM SCH (08:58)
[2021-09-03] MEDS: amLODIPine 5 MG TAB PO SCH (08:58)
[2021-09-03] MEDS: GABAPENTIN 300 MG CAP PO SCH ×3 (08:58→21:24)
[2021-09-03] MEDS: ASPIRIN 81 MG PO SCH (08:58)
[2021-09-03] MEDS: NYSTATIN 100,000 UNIT/GM POWD 15 GM TOPICAL SCH ×2 (08:59→21:25)
[2021-09-03 09:42] LABS: Anisocytosis Slight; Basophils % (A) 0 %; Eosinophils % (A) 0 %; HGB 10.9 gm/dL (13.0-17.5); Hypochromasia Marked; Lymphocytes # (A) 0.2 k/uL (1.0-4.8); Lymphocytes % (A) 4 %; MCH 23.4 pg (25.0-35.0); MCHC 28.6 g/dL (31.0-37.0); MCV 81.8 fL (80.0-100.0); Mean Platelet Volume 7.6; Microcytosis Slight; Monocytes # (A) 0.2 k/uL (0-1.0); Monocytes % (A) 3 %; Neutrophils # (A) 5.6 k/uL (1.3-7.7); Neutrophils % (A) 92 %; Platelet Count 359 k/uL (150-450); RBC 4.64 m/uL (4.30-5.90); RDW 18.6 % (11.5-15.5)
[2021-09-03 10:08] LABS: ALT 25 U/L (4-49); AST 24 U/L (17-59); African American GFR (CKD) >90 (>60 ml/min/1.73 sqM); Albumin 2.8 g/dL (3.5-5.0); Alkaline Phosphatase 57 U/L (38-126); Anion Gap 7 mmol/L; Blood Urea Nitrogen 22 mg/dL (9-20); Calcium 8.2 mg/dL (8.4-10.2); Carbon Dioxide 27 mmol/L (22-30); Chloride 100 mmol/L (98-107); Glucose 384 mg/dL (74-99); Non-African American GFR(CKD) 81 (>60 ml/min/1.73 sqM); Potassium 4.2 mmol/L (3.5-5.1); Sodium 134 mmol/L (137-145); Total Bilirubin 0.5 mg/dL (0.2-1.3); Total Protein 5.3 g/dL (6.3-8.2)
--- NOTE | 2021-09-03 10:10 | P.PN ---
Subjective Progress Note Date: 09/03/21 Baldev Joyce, is a 71-year-old male patient who presented to the ER with concerns about mental status changes. According to ER record patient was found down unknown downtime with a significant amount of fentanyl patches on body. Patient has medical history of COPD, diabetes mellitus, hypertension, myocardial infarction osteoarthritis of vascular disease. Head CT was completed showing mild cerebral atrophy no acute intracranial abnormality no change. Chest x-ray completed showing mild cardiomegaly with mild interstitial edema correlate for CHF exacerbation developing right upper lung infiltrate cannot be excluded. Pelvis x-ray completed showing no new acute displaced fracture seen. UA comp leted showing large amount of blood and trace amount of leukocyte Estrace. Patient started on Rocephin. Upon exam patient remains in ER quite lethargic on 4 L nasal cannula. Bilateral legs appear red possible cellulitis. Patient started on Rocephin. Will consult pulmonary services for possible pneumonia repeat 2 view chest x-ray. 08/30/2021 patient was seen and examined on the medical floor he is alert and oriented 3 in no apparent distress, currently he is maintained on oxygen via nasal cannula at 6 L he required BiPAP throughout last night, he is still complaining of cough and shortness of breath and generalized body ache otherwise he denies any symptoms there is no fever or chills no headache or dizziness no chest pain no nausea or vomiting no abdominal pain no diarrhea and no urinary symptoms. Vital exam reveals a temperature of 98.1 pulse 122 respiration 38 blood pressure 168/74 pulse ox 93% on 6 L nasal cannula. On 08/31/2021 patient was seen and examined on the telemetry floor he is alert and oriented 3 in no apparent distress he had worsening shortness of breath las t night and required BiPAP, currently he is maintained on oxygen 10 L via nasal cannula, repeat chest x-ray revealed persistent but improving interstitial edema, clinically patient is feeling better he reports some improvement in the shortness of breath he is alert and oriented 3 in no distress there is no fever or chills no headache or dizziness no chest pain he has occasional cough no nausea or vomiting no abdominal pain no diarrhea and no urinary symptoms On 09/01/2021 patient was seen and examined on the telemetry floor he is alert and oriented 3 in no apparent distress there is no fever or chills no headache or dizziness no chest pain he stated that his shortness of breath is improving he has occasional cough no nausea or vomiting no abdominal pain no diarrhea and no urinary symptoms. He is complaining of worsening pain in the left hip. On 09/02/2021 patient is alert and oriented 3 in no apparent distress there is no fever or chills no headache or dizziness no chest pain he stated that his shortness of breath is improving he has occasional cough no nausea or vomiting no abdominal pain no diarrhea and no urinary symptoms. Repeat chest x-ray and left hip x-ray are pending, patient remains on IV Solu-Medrol and IV Zosyn, will continue to follow On 09/03/2021 patient is alert and oriented 3. Patient remains on IV Solu- Medrol and IV Zosyn. Pulmonary, cardiology and infectious disease services are following. Per case management patient is now agreeable for ECF placement at [facility]. Current vitals temp 98.4, heart rate 89, respiratory rate 18, blood pressure 148 bradycardia to patient satting 95% on 4 L Objective - Vital Signs Vital signs: Vital Signs Temp 98.4 F 09/03/21 08:00 Pulse 89 09/03/21 08:00 Resp 18 09/03/21 08:00 BP 140/82 09/03/21 08:00 Pulse Ox 95 09/03/21 08:00 FiO2 40 09/01/21 00:15 Intake & Output 09/02/21 09/03/21 09/03/21 18:59 06:59 18:59 Intake Total 59 Output Total 650 1160 600 Balance -650 -1160 -541 Intake: Oral 59 Output: Urine 650 1160 600 Other: Voiding Method Indwelling Catheter Indwelling Catheter # Bowel Movements 1 - Exam In general patient is alert and oriented 3 in no apparent distress Head normocephalic and atraumatic Neck supple no JVD no goiter Lungs exam with a scattered crackles bilaterally no wheezing Heart regular rate and rhythm S1-S2, no rub or gallop Abdomen is soft nontender nondistended positive bowel sounds no hepatosplenomegaly Extremities no edema, vabpr-ibk-gqaw 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 Neuro no gross focal deficit - Labs CBC & Chem 7: 09/03/21 08:53 09/01/21 06:06 Labs: Abnormal Lab Results - Last 24 Hours (Table) 05/24/22 05/24/22 05/24/22 Range/Units 11:46 17:05 20:34 Hgb (13.0-17.5) gm/dL Hct (39.0-53.0) % MCH (25.0-35.0) pg MCHC (31.0-37.0) g/dL RDW (11.5-15.5) % Lymphocytes # (1.0-4.8) k/uL POC Glucose (mg/dL) 152 H 209 H 217 H (75-99) mg/dL 09/03/21 09/03/21 Range/Units 06:24 08:53 Hgb 10.9 L (13.0-17.5) gm/dL Hct 38.0 L (39.0-53.0) % MCH 23.4 L (25.0-35.0) pg MCHC 28.6 L (31.0-37.0) g/dL RDW 18.6 H (11.5-15.5) % Lymphocytes # 0.2 L (1.0-4.8) k/uL POC Glucose (mg/dL) 192 H (75-99) mg/dL Assessment and Plan Assessment: 1. Altered mental status changes secondary to opiate overdose with multiple fentenyl patches on body according to ER report 2. Hematuria and urinary tract infection. 3. Acute hypoxic and hypercapnic respiratory failure secondary to aspiration pneumonia and opiate overdose 4. Cellulitis of right lower extremity. Infectious disease services also consulted. 5. History of COPD 6. Underlying history of essential hypertension 7. Underlying history of hyperlipidemia 8. Underlying history of depression 9. Underlying chronic pain syndrome 10. Underlying history of GERD 11. Underlying history of peripheral vascular disease 12. Shortness of breath, related to pneumonia versus CHF, 2-D echo completed showing an EF of 55-60%. Per cardiology shortness of breath does not appear to be CHF at this time 13. History of recent left hip fracture. Patient was previously evaluated by Dr. Angeles and conservative treatment was used at that time. Repeat hip x-ray completed showing intertrochanteric fracture left femur without change fracture seen. Will reconsult Dr. Angeles at this time to reevaluate Pulmonary, infectious disease and cardiology services following Remains on IV Zosyn and IV steroids Discharge planning is in progress. Patient is agreeable to rehab [facility] [place]
[2021-09-03] MEDS ORDERED: FUROSEMIDE 10 MG/ML 4 ML VIAL IV STA (11:12)
--- NOTE | 2021-09-03 11:14 | P.PN ---
Subjective Progress Note Date: 09/03/21 Acute hypoxic and hypercapnic respiratory failure secondary to aspiration pneumonia, opiate overdose, and suspect underlying COPD 71-year-old white male patient with known history of COPD, hypertension, diabetes mellitus type 2, history of left [id number] amputation in 2009 for nonhealing wound related to MRSA infection, osteoarthritis, peripheral vascular disease with previous intervention of the left leg, who presented to the ER 08/29/2021 by EMS for evaluation of altered mental status. Patient was found down with unknown downtime. He was found was significant amount of fentanyl patches on, unresponsive, and unable to provide any history. Brain CT shows no acute intracranial abnormality. Chest x-ray showed mild cardiomegaly with mild interstitial edema and developing right upper lobe infiltrate. Pelvis x-ray was obtained related to a fall with possibility of injury, showing no acute displaced fracture. Lab work showed white blood cell count of 8.3, hemoglobin of 9.3, INR is 1.0, BUN of 49, creatinine 0.98, electrolytes were unremarkable, LFTs were within normal limits, ammonia level was less than 9, CK-MB was 3.3, troponin was less than 0.012, urinalysis showed large amount of blood, trace leukocyte esterase, 6 white blood cells, no clear evidence of urinary tract infection. Urine drug screen was positive for opiates, and marijuana, serum alcohol level was less than 10. Patient was started on antibiotics, breathing treatments, he was given 2-1/2 L of fluid boluses, and his IV fluids are infusing at a rate of 130 ml. The patient is seen today 08/30/2021 in follow-up on the regular medical floor. He is currently resting in bed. More awake and alert. Oriented 3. He is still on 10 L high flow nasal cannula. 0.9 normal saline at 130 MLS per hour. Urine culture pending. White count 12.8. Hemoglobin 11.2. Sodium 141. Potassium 4.2. Bicarb 24. BUN 19. Creatinine 0.69. Continued on DuoNeb inhalations, Symbicort. NicoDerm patches in place. Remains on Zosyn. Reevaluated today on 08/31/2021, patient remains on the regular medical floor, tells me that his feeling better today, breathing easier. Patient has BiPAP at bedside, he is now on 10 L high flow nasal cannula, and O2 sats is 97%. Patient does not seem to be very compliant with BiPAP. Chest x-ray showed persistent interstitial infiltrates/edema however the findings seem to be mostly in the left lower lobe hence I am favoring pneumonia over pulmonary edema WBC count is 9.7 hemoglobin is 10.4 electrodes are normal renal profile is normal I 2021, the patient remains on a medical floor. He is on 8 L of O2 nasal cannula. Pulse ox is 94%. Using the BiPAP on and off during the day. Feeling well. He is feeling less short of breath. The chest x-ray showing COPD along with a left lower lobe consolidation. The patient remains on IV Zosyn covering the patient for an aspiration pneumonia. No nausea. No vomiting. No emesis. He is a chronic smoker. He also has severe peripheral vascular disease with previous above-knee 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. No signs of any acute infection. He has overdosed on fentanyl patches. He smokes also marijuana. IV fluids are currently at 25 mL's an hour. Is tolerating his diet. No signs of any withdrawal. 09/02/2021, I'm seeing the patient for a follow-up. Doing well. No specific complaints no chest pain. No nausea or vomiting. The patient's FiO2 has been reduced down to 5 L and the patient's current pulse ox is around 95%. I dropped it down further to 4 L. The patient remains on IV Zosyn. He is communicating. No altered mentation. Remains on bronchodilators. He remains on steroids with IV Solu Medrol 60 mg every 6 hours IV. No other significant events overnight. Tolerating his diet. No aspiration. 09/03/2021, I'm seeing the patient for a follow-up. The patient is still on 4 L of oxygen by nasal cannula. Using the bronchodilators and using the steroids and the patient remains on IV Zosyn. I was hoping to wean the patient's FiO2 further. The patient does not have home oxygen. A repeat chest x-ray was done today shows some interval improvement in the aeration of the left lung base. Right lung remains essentially unchanged. The patient remains on IV Zosyn for now. The blood work from today showing a white cell count of 6 with a hemoglobin of 10.9. The sodium is at 134 with a BUN of 22 and a creatinine of 0.9. No other changes in his medication. Using incentive spirometer. Remains on IV Zosyn. Remains on IV Solu Medrol. Remains on Symbicort as maintenance and albuterol/ipratropium nebulized treatments around the clock 4 times a day. Objective - Vital Signs Vital signs: Vital Signs Temp 98.4 F 09/03/21 08:00 Pulse 89 09/03/21 08:00 Resp 18 09/03/21 08:00 BP 140/82 09/03/21 08:00 Pulse Ox 95 09/03/21 08:00 FiO2 40 09/01/21 00:15 Intake & Output 09/02/21 09/03/21 09/03/21 18:59 06:59 18:59 Intake Total 59 Output Total 650 1160 600 Balance -650 -1160 -541 Weight 55.701 kg Intake: Oral 59 Output: Urine 650 1160 600 Other: Voiding Method Indwelling Catheter Indwelling Catheter Indwelling Catheter # Bowel Movements 1 - Exam GENERAL EXAM: Alert, pleasant 71-year-old male patient, on 4 L high flow nasal cannula, O2 saturation 97%. HEAD: Normocephalic/atraumatic. HEENT: PERRLA, EOMI, anicteric, no neck masses, no JVD. Moist mucous membranes. CHEST: No chest wall deformity. Symmetrical expansion. LUNGS: Scattered rhonchi and wheezes noted bilaterally. CVS: Regular rate and rhythm, normal S1 and S2, no gallops, no murmurs, no rubs ABDOMEN: Soft, nontender. No hepatosplenomegaly, normal bowel sounds, no guarding or rigidity. EXTREMITIES: No clubbing, no edema, no cyanosis, 2+ pulses and upper and lower extremities. Left [id number] amputee, chronic superficial ulcerations and venous stasis changes noted in the right lower extremity MUSCULOSKELETAL: No deformities noted the patient is range of motion, however the patient does have left AKA SKIN: No rashes CENTRAL NERVOUS SYSTEM: Alert, oriented. No focal deficits, - Labs CBC & Chem 7: 09/03/21 08:53 09/03/21 08:53 Labs: Abnormal Lab Results - Last 24 Hours (Table) 09/02/21 09/02/21 09/02/21 Range/Units 11:46 17:05 20:34 Hgb (13.0-17.5) gm/dL Hct (39.0-53.0) % MCH (25.0-35.0) pg MCHC (31.0-37.0) g/dL RDW (11.5-15.5) % Lymphocytes # (1.0-4.8) k/uL Sodium (137-145) mmol/L BUN (9-20) mg/dL Glucose (74-99) mg/dL POC Glucose (mg/dL) 152 H 209 H 217 H (75-99) mg/dL Calcium (8.4-10.2) mg/dL Total Protein (6.3-8.2) g/dL Albumin (3.5-5.0) g/dL 09/03/21 09/03/21 09/03/21 Range/Units 06:24 08:53 08:53 Hgb 10.9 L (13.0-17.5) gm/dL Hct 38.0 L (39.0-53.0) % MCH 23.4 L (25.0-35.0) pg MCHC 28.6 L (31.0-37.0) g/dL RDW 18.6 H (11.5-15.5) % Lymphocytes # 0.2 L (1.0-4.8) k/uL Sodium 134 L (137-145) mmol/L BUN 22 H (9-20) mg/dL Glucose 384 H (74-99) mg/dL POC Glucose (mg/dL) 192 H (75-99) mg/dL Calcium 8.2 L (8.4-10.2) mg/dL Total Protein 5.3 L (6.3-8.2) g/dL Albumin 2.8 L (3.5-5.0) g/dL Assessment and Plan Plan: Acute hypoxic and hypercapnic respiratory failure related to aspiration pneumonia, and opiate overdose as well as underlying COPD mild currently on 4 L of oxygen by nasal cannula. The patient does not have home O2. He has a nebulizer that he does albuterol nebulized treatments as needed. Currently has a left lower lobe pneumonia in addition and the patient is currently on IV Zosyn. A total of seven-day course of Zosyn. Chest x-ray shows improvement in aeration of the left lower lobe. May benefit from a dose of diuretics also. Left lower lobe pneumonia, consider aspiration, currently on Zosyn. Suspect opiate overdose History of COPD Acute mental status change multifactorial related to toxic and metabolic encephalopathy, improved Diabetes mellitus type 2 Chronic back pain History of left [id number] amputation for nonhealing left leg wound and MRSA infection History of peripheral vascular disease with previous intervention the left leg History of coronary artery disease with stenting Plan: Continue oxygen. Wean down the patient to 4 L and the patient was encouraged to use incentive spirometer and deep breathing Continue Zosyn empirically. Complete a seven-day course Continue bronchodilators. Stop the IV Solu Medrol and put the patient on prednisone burst taper Give the patient dose of Lasix 40 mg IV push x2 doses Provide the patient incentive spirometer Counseled regarding smoking cessation. Continue nicotine patches. Continue to avoid narcotics and sedatives. We will continue to follow, patient is not ready for any discharge planning We will likely need home O2 Has a home nebulizer.
[2021-09-03 11:41] LABS: Glucose,Whole Blood 298 mg/dL (75-99)
--- NOTE | 2021-09-03 16:32 | P.CNOR ---
History of Present Illness - [facility] Consult date: 09/03/21 Requesting physician: Fidencio Barrientos Consult reason: fracture (History of left hip fracture; left hip pain) History of present illness: Patient is a very pleasant 71-year-old male who is well known to our service who is seen and examined at the bedside for further evaluation of his he is known to have sustained an acute left hip basicervical/intertrochanteric hip fracture status post fall in August 2020. He has improved since that time. He was admitted to the hospital due to significant altered mental status on 08/29/2021. He states he has been smoking a lot of cigarettes as well as marijuana and thinks this may have led to him becoming confused initially. During his presentation to the emergency department had multiple fentanyl patches on his body. He states he is unsure how all of the patches got on his body as he chronically uses these patches and takes an old patch off when applying a new one. During his admission to the hospital his altered mental status has continued to improve. He is awake, alert, and oriented 3 at the bedside today. He is answering questions well. He states he must have been confused at the time of attempting to change his fentanyl patches. He states during his altered mental state he is unsure if he did anything else to injure his left hip. He has some pain towards the lateral left hip which is exacerbated with coughing and sneezing. He does not experience any pain at the left hip with palpation or movement of the left hip patient is known to have a history of left high above- knee amputation and is nonambulatory on the left lower extremity. 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 He is currently being seen and examined by multiple medical providers for his other medical diagnoses including pulmonology, medicine, infectious disease, and cardiology. He states he has a history of urine in his blood and has been following with Dr. Moya in the outpatient setting. This has been improving. He is voiding without difficulty. Being treated for a urinary tract infection. His other medical diagnoses during this admission include acute hypoxic and hypercapnic respiratory failure and right lower extremity cellulitis. He is currently being seen by infectious disease in regards to his cellulitis. Nursing and case management states patient is planning to be discharged to a rehabilitation facility in [place], [place] tomorrow. Patient states he also has a history of some chronic low back pain would consider evaluation in the outpatient setting in this regard. 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 knee wound + FOR MRSA. History of high left above-knee amputation done approximately 2009. 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 left testicle removed. heart stent x1 Past Anesthesia/Blood Transfusion Reactions: No Reported Reaction Date of Last Stent Placement:: 2006 Past Psychological History: Depression Smoking Status: Current every day smoker Past Alcohol Use History: None Reported Past Drug Use History: Marijuana - Past Family History Sister(s) Family Medical History: Cancer Additional Family Medical History / Comment(s): double mastectomy, still surviving Father Family Medical History: No Reported History Mother Family Medical History: No Reported History Additional Family Medical History / Comment(s): hypoglycemia Medications and Allergies Home Medications Medication Instructions Recorded Confirmed Type Aspirin 81 mg PO DAILY 01/14/14 08/29/21 History DULoxetine HCL [Cymbalta] 60 mg PO DAILY 01/14/14 08/29/21 History lisinopriL [Prinivil] 20 mg PO DAILY 01/14/14 08/29/21 History Escitalopram [Lexapro] 10 mg PO DAILY 06/13/18 08/29/21 History Pantoprazole Sodium [Protonix] 40 mg PO DAILY 06/13/18 08/29/21 History amLODIPine [Norvasc] 5 mg PO DAILY 06/13/18 08/29/21 History Gabapentin [Neurontin] 300 mg PO TID #9 cap 06/17/18 08/29/21 Rx Hydrocodone/Acetaminophen [[place] 1 tab PO Q6H PRN #12 tablet 06/17/18 08/29/21 Rx 10-325] fentaNYL 100MCG/HR PATCH 100 mcg TRANSDERM Q72H #1 patch 06/17/18 08/29/21 Rx [Duragesic 100MCG/HR] Enulose 10gm/15ml 20 gm PO Q48H PRN 07/16/20 08/29/21 History Multivitamins, Thera [Multivitamin 1 tab PO DAILY 07/16/20 08/29/21 History (formulary)] Atorvastatin [Lipitor] 80 mg PO DAILY #30 tab 07/20/20 08/29/21 Rx Metoprolol Succinate (ER) [Toprol 25 mg PO DAILY #30 tab.er.24h 07/20/20 08/29/21 Rx XL] Nitroglycerin Sl Tabs [Nitrostat] 0.4 mg SUBLINGUAL Q5M PRN #30 tab 07/20/20 08/29/21 Rx Budesonide-Formot 160-4.5 Mcg 2 puff INHALATION RT-BID 08/21/20 08/29/21 History [Symbicort 160-4.5 Mcg Inhaler] Albuterol Sulfate [Proair Hfa] 2 puff INHALATION RT-QID PRN 08/29/21 08/29/21 History Naloxone [Narcan] 1 mg SQ ONCE PRN 08/29/21 08/29/21 History Tamsulosin [Flomax] 0.4 mg PO DAILY 08/29/21 08/29/21 History Terbinafine [LamISIL] 250 mg PO DAILY 08/29/21 08/29/21 History Allergies Allergy/AdvReac Type Severity Reaction Status Date / Time azithromycin [From Zithromax] Allergy Rash/Hives Verified 08/29/21 10:52 Physical Examination Physical Exam: Patient is awake, alert, and oriented 3; patient's is answering questions well and appropriately Vital signs stable Adequate chest excursion with deep inspiration and expiration Evidence of left high above-knee amputation Left lower extremity stump is soft with no evidence of skin breakdown No significant erythema or bruising over the left hip No pain with palpation over the left hip Stump is soft palpation Results Pertinent studies: X-ray of the left hip and pelvis taken on 09/02/2021: Evidence of left intertrochanteric femur fracture with valgus alignment without change as compared to previous imaging taken on 08/29/2021 remains fairly stable as compared to previous imaging taken on 08/22/2019 X-rays of the left hip and pelvis taken on 08/21/2020: Evidence of above-knee amputation with limited length; evidence of basicervical/intertrochanteric femur fracture with some valgus alignment with some compression at the fracture site - Labs Labs: Abnormal Lab Results - Last 24 Hours (Table) 09/02/21 09/02/21 09/03/21 Range/Units 17:05 20:34 06:24 Hgb (13.0-17.5) gm/dL Hct (39.0-53.0) % MCH (25.0-35.0) pg MCHC (31.0-37.0) g/dL RDW (11.5-15.5) % Lymphocytes # (1.0-4.8) k/uL Sodium (137-145) mmol/L BUN (9-20) mg/dL Glucose (74-99) mg/dL POC Glucose (mg/dL) 209 H 217 H 192 H (75-99) mg/dL Calcium (8.4-10.2) mg/dL Total Protein (6.3-8.2) g/dL Albumin (3.5-5.0) g/dL 09/03/21 09/03/21 09/03/21 Range/Units 08:53 08:53 11:38 Hgb 10.9 L (13.0-17.5) gm/dL Hct 38.0 L (39.0-53.0) % MCH 23.4 L (25.0-35.0) pg MCHC 28.6 L (31.0-37.0) g/dL RDW 18.6 H (11.5-15.5) % Lymphocytes # 0.2 L (1.0-4.8) k/uL Sodium 134 L (137-145) mmol/L BUN 22 H (9-20) mg/dL Glucose 384 H (74-99) mg/dL POC Glucose (mg/dL) 298 H (75-99) mg/dL Calcium 8.2 L (8.4-10.2) mg/dL Total Protein 5.3 L (6.3-8.2) g/dL Albumin 2.8 L (3.5-5.0) g/dL H & H 05/08/30/21 08/31/21 Range/Units 03:50 06:50 08:59 Hgb 9.3 L 11.2 L 10.4 L (13.0-17.5) gm/dL Hct 33.1 L 39.6 36.6 L (39.0-53.0) % 09/01/21 09/03/21 Range/Units 06:06 08:53 Hgb 10.6 L 10.9 L (13.0-17.5) gm/dL Hct 36.2 L 38.0 L (39.0-53.0) % Coagulation 08/29/21 Range/Units 03:50 INR 1.0 (<1.2) Result Diagrams: 09/03/21 08:53 09/03/21 08:53 Assessment and Plan Assessment: Assessment: Altered mental status, improving Acute hypoxic and hypercapnic respiratory failure Chronic left hip basicervical/intertrochanteric hip fracture status post fall on 08/21/2020 History of left high above-knee amputation Diabetes mellitus Long-term vascular pathology Nonambulator on the left lower extremity Acute on chronic left hip pain COPD Hypertension History of myocardial infarction Current every day smoker Right lower extremity cellulitis (1) Acute respiratory failure with hypoxia Current Visit: Yes Status: Acute Code(s): J96.01 - ACUTE RESPIRATORY FAILURE WITH HYPOXIA SNOMED Code(s): 95760670 (2) Acute hypercapnic respiratory failure Current Visit: Yes Status: Acute Code(s): J96.02 - ACUTE RESPIRATORY FAILURE WITH HYPERCAPNIA SNOMED Code(s): 515634687 (3) Left hip pain Current Visit: Yes Status: Acute Code(s): M25.552 - PAIN IN LEFT HIP SNOMED Code(s): 74377467 (4) Current every day smoker Current Visit: Yes Status: Acute Code(s): F17.200 - NICOTINE DEPENDENCE, UNSPECIFIED, UNCOMPLICATED SNOMED Code(s): 294888824 (5) History of myocardial infarction Current Visit: Yes Status: Acute Code(s): I25.2 - OLD MYOCARDIAL INFARCTION SNOMED Code(s): 123792164 (6) Cellulitis of right lower extremity Current Visit: Yes Status: Acute Code(s): L03.115 - CELLULITIS OF RIGHT LOWER LIMB SNOMED Code(s): 586747794 (7) Altered mental status Current Visit: Yes Status: Acute Code(s): R41.82 - ALTERED MENTAL STATUS, UNSPECIFIED SNOMED Code(s): 820438483 (8) Diabetes mellitus Current Visit: No Status: Acute Code(s): E11.9 - TYPE 2 DIABETES MELLITUS WITHOUT COMPLICATIONS SNOMED Code(s): 62344845 (9) History of left above knee amputation Current Visit: No Status: Acute Code(s): Z89.612 - ACQUIRED ABSENCE OF LEFT LEG ABOVE KNEE SNOMED Code(s): 928395778652257 (10) Hypertension Current Visit: No Status: Acute Code(s): I10 - ESSENTIAL (PRIMARY) HYPERTENSION SNOMED Code(s): 66780819 (11) Intertrochanteric fracture of left femur Current Visit: No Status: Acute Code(s): S72.142A - DISPLACED INTERTROCHANTERIC FRACTURE OF LEFT FEMUR, INIT SNOMED Code(s): 087982880 Plan: Plan: 1. After physical examination the patient, reviewing of previous imaging from 08/21/2020 as well as current imaging from 09/02/2021, further the discussion with the patient, further discussion with Dr. Mitul Angeles, and based on the patient's medical history, we will currently plan to continue conservative treatment in regards to his left hip basicervical/intertrochanteric hip fracture. Patient does continue to have some pain in his left hip which has been exacerbated recently. He is unsure if he sustained any injury to his left hip during his altered mental state. He has some pain in his left hip which is exacerbated with coughing and sneezing. He does not have any pain in his left hip with pain or palpation. There is no erythema, bruising, or obvious signs of infection at his left hip. He is known to have a high above-knee 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. He is not having any difficulty with his stump. His left stump is in good condition without evidence of skin break down or evidence of significant tissue damage. His stump is soft. There is no evidence of erythema, bruising, or swelling over the left stump. He is normally a nonambulator. His previously known left hip fracture remains in adequate position without significant change as compared to previous imaging taken on 08/21/2020. He does have a significant history of vascular pathology. He is also nonambulatory status and has shortness stump length. We do not feel proceeding forward with surgical intervention would provide any significant benefit and could also lead to significant complications with wound healing. Patient is also a chronic every day smoker which could further complicated wound healing. Patient's pain has been controlled with [place] 10 mg/325 mg and fentanyl. He does state she takes his medication outpatient setting as prescribed by his primary care provider. We discussed he may continue to take this medication as prescribed for pain control. We also discussed this medicine can be adjusted by his primary care provider. At this time would not plan to prescribe other medications at the time of discharge. We did discuss patient clear for discharge to a rehabilitation facility from an orthopedic standpoint. Patient is planning to be discharged tomorrow. We will plan to have him follow up in approximately 2-3 weeks with Austin Chowdary PA-C or Dr. Mitul Angeles at [facility] for further evaluation of his left hip. We did discuss may also plan to evaluate his lumbar spine at that time if he would like evaluation for his chronic low back pain. He'll continue with his nonambulatory status on the left lower extremity. 2. The patient will continue be seen examined by multiple medical providers including medicine, pulmonology, cardiology, and infectious disease for his multiple medical diagnoses including altered mental status which is improving, acute hypoxic and hypercapnic respiratory failure, right lower extremity cellulitis, COPD, hypertension, history of myocardial infarction, current every day smoker, diabetes mellitus, and long-term vascular pathology. Medicine will continue to manage his Russo catheter as well. Given the turbid and dark color of his urine, we will plan to obtain a urinalysis. Time with Patient: Greater than 30 (Including obtaining history, physical examination, reviewing of imaging, and dictation.)
[2021-09-03 16:53] LABS: Glucose,Whole Blood 224 mg/dL (75-99)
--- NOTE | 2021-09-03 17:31 | P.PN ---
Subjective Progress Note Date: 09/03/21 his is a 71-year-old male with a past medical history significant for coronary artery disease with previous stenting of the LAD and RCA, peripheral arterial disease, left rxupy-mvh-gtbi amputation, nicotine dependence, COPD, hypertension, and hyperlipidemia. Patient follows in the office with Dr. Palafox. We have been asked to see the patient in consultation for shortness of breath. Patient examined at the bedside. The patient was admitted to the hospital after being found down at home with multiple fentanyl patches. The patient is currently being treated for aspiration pneumonia. He is currently on a liters nasal cannula. He reports his shortness of breath is improving. He is laying flat in bed and appears to be comfortable at rest. He denies any chest pain or pressure. * EKG reveals sinus mechanism with no signs of acute ischemia * Chest xray mild cardiomegaly with mild interstitial edema. Correlate for CHF exacerbation. Developing right upper lung infiltrate cannot be excluded * Laboratory data: WBC 7.2. Hemoglobin 10.6. Platelet count 307. Sodium 135. Potassium 3.9. BUN 13. Creatinine 0.68. ProBNP 6400 * Current home cardiac medications include aspirin 81 mg daily, Lipitor 80 mg daily, metoprolol succinate 25 mg daily, amlodipine 5 mg daily, lisinopril 20 mg daily * Most recent echocardiogram obtained in July 2020 revealed ejection fraction 55-60%, trace MR, trace TR * Cardiac catheterization history: July 2020 with stenting of the mid RCA 09/03/2021: This patient is admitted with increasing shortness of breath, which is felt to be mostly related to COPD and pneumonia. There could be some component of CHF. He claims he is feeling slightly better. Patient is seen by pulmonology and started giving him a couple of doses of Lasix. He'll continue with antibiotics and other treatments . No complaints of chest pain, no palpitations, no cardiac arrhythmia Objective - Vital Signs Vital signs: Vital Signs Temp 98.4 F 09/03/21 12:00 Pulse 76 09/03/21 15:31 Resp 18 09/03/21 14:00 BP 165/74 09/03/21 12:00 Pulse Ox 95 09/03/21 12:00 FiO2 40 09/01/21 00:15 Intake & Output 09/02/21 09/03/21 09/03/21 18:59 06:59 18:59 Intake Total 59 Output Total 650 1160 1150 Balance -650 -8710 -1093 Weight 55.701 kg Intake: Oral 59 Output: Urine 650 1160 1150 Other: Voiding Method Indwelling Catheter Indwelling Catheter Indwelling Catheter # Bowel Movements 1 1 - Exam GENERAL EXAM: Patient is alert and oriented and appears to be mild to moderate distress HEENT: Normocephalic. Normal reaction of pupils, equal size, normal range of extraocular motion. No erythema or exudates in the throat. NECK: No masses, no nuchal rigidity. CHEST: No chest wall deformity. LUNGS: Mr. air exchange with rhonchi HEART: Distant heart sounds ABDOMEN: No hepatosplenomegaly, normal bowel sounds, no guarding or rigidity. SKIN: No rashes CENTRAL NERVOUS SYSTEM: No focal deficits. EXTREMITIES: [No cyanosis, clubbing or edema.] - Labs CBC & Chem 7: 09/03/21 08:53 09/03/21 08:53 Labs: Abnormal Lab Results - Last 24 Hours (Table) 09/02/21 09/03/21 09/03/21 Range/Units 20:34 06:24 08:53 Hgb 10.9 L (13.0-17.5) gm/dL Hct 38.0 L (39.0-53.0) % MCH 23.4 L (25.0-35.0) pg MCHC 28.6 L (31.0-37.0) g/dL RDW 18.6 H (11.5-15.5) % Lymphocytes # 0.2 L (1.0-4.8) k/uL Sodium (137-145) mmol/L BUN (9-20) mg/dL Glucose (74-99) mg/dL POC Glucose (mg/dL) 217 H 192 H (75-99) mg/dL Calcium (8.4-10.2) mg/dL Total Protein (6.3-8.2) g/dL Albumin (3.5-5.0) g/dL 09/03/21 09/03/21 09/03/21 Range/Units 08:53 11:38 16:51 Hgb (13.0-17.5) gm/dL Hct (39.0-53.0) % MCH (25.0-35.0) pg MCHC (31.0-37.0) g/dL RDW (11.5-15.5) % Lymphocytes # (1.0-4.8) k/uL Sodium 134 L (137-145) mmol/L BUN 22 H (9-20) mg/dL Glucose 384 H (74-99) mg/dL POC Glucose (mg/dL) 298 H 224 H (75-99) mg/dL Calcium 8.2 L (8.4-10.2) mg/dL Total Protein 5.3 L (6.3-8.2) g/dL Albumin 2.8 L (3.5-5.0) g/dL Assessment and Plan (1) CAD (coronary artery disease) Current Visit: Yes Status: Acute Code(s): I25.10 - ATHSCL HEART DISEASE OF [place] CORONARY ARTERY W/O ANG PCTRS SNOMED Code(s): 99750792 (2) Acute respiratory failure with hypoxia Current Visit: Yes Status: Acute Code(s): J96.01 - ACUTE RESPIRATORY FAILURE WITH HYPOXIA SNOMED Code(s): 39377164 (3) Peripheral vascular disease Current Visit: Yes Status: Acute Code(s): I73.9 - PERIPHERAL VASCULAR DISEASE, UNSPECIFIED SNOMED Code(s): 950739969 Plan: Continue current medical therapy. Agree with a glucose of Lasix. Further recommendations depend upon the clinical course
[2021-09-03 20:10] LABS: Glucose,Whole Blood 182 mg/dL (75-99)
[2021-09-03] MEDS: ALPRAZolam 0.25 MG TAB PO PRN (23:23)
[2021-09-04] MEDS: PIPERACILLIN-TAZOBACTAM 3.375 GM in SODIUM CHLORIDE 0.9% 100 ML IVPB SCH ×3 (04:33→21:17)
[2021-09-04 06:31] LABS: Glucose,Whole Blood 118 mg/dL (75-99)
[2021-09-04] MEDS: INSULIN ASPART (NovoLOG) 100 UNIT/ML VIAL SQ SCH ×4 (06:32→21:17)
[2021-09-04] MEDS: PANTOPRAZOLE 40 MG TABLET PO SCH (06:36)
[2021-09-04] MEDS: IPRATROPIUM-ALBUTEROL 3 ML NEB INHALATION SCH ×4 (07:42→19:58)
[2021-09-04] MEDS: SYMBICORT 160-4.5 MCG INHALER INHALATION SCH ×2 (07:42→19:58)
--- NOTE | 2021-09-04 08:02 | P.PN ---
Subjective Progress Note Date: 09/02/21 Principal diagnosis: Pneumonia, possible cellulitis Patient is a 71-year-old male with a past medical history significant for COPD diabetes mellitus hypertension left iwipm-siy-nnux potation presented to hospital for mental status changes and the patient was found unresponsive with unknown downtime. On today's evaluation that is 09/02/2021, the patient remains to be afebrile the patient is breathing comfortably on nasal cannula oxygen, the patient denies having any chest pain, the patient did have a cough with occasional sputum production, no abdominal pain no diarrhea Objective - Vital Signs Vital signs: Vital Signs Temp 98.6 F 09/02/21 04:00 Pulse 80 09/02/21 11:29 Resp 18 09/02/21 11:29 BP 166/78 09/02/21 04:00 Pulse Ox 97 09/02/21 08:36 FiO2 40 09/01/21 00:15 Intake & Output 09/01/21 09/02/21 09/02/21 18:59 06:59 18:59 Intake Total 90 940 Output Total 1200 Balance 90 -260 Weight 55.701 kg Intake: Intake, IV Titration 100 Amount Piperacillin-Tazobactam 3 100 .375 gm In Sodium Chloride 0.9% 100 ml @ 25 mls/hr IVPB [facility] Rx#: [id number] Oral 90 840 Output: Urine 1200 Uretheral ([place]) 1200 Other: Voiding Method Indwelling Catheter Indwelling Catheter # Bowel Movements 1 - Exam GENERAL DESCRIPTION: Elderly male lying in bed, no distress. No tachypnea or accessory muscle of respiration use. LUNGS: Unlabored breathing. Decreased intensity breath sounds HEART: S1, S2, regular rate and rhythm. No loud murmur ABDOMEN: Soft, no tenderness , guarding or rigidity, no organomegaly EXTREMITIES: No edema of feet. - Labs CBC & Chem 7: 09/03/21 08:53 09/03/21 08:53 Labs: Abnormal Lab Results - Last 24 Hours (Table) 09/01/21 09/01/21 09/02/21 Range/Units 16:12 20:31 06:27 POC Glucose (mg/dL) 189 H 309 H 210 H (75-99) mg/dL 09/02/21 Range/Units 11:46 POC Glucose (mg/dL) 152 H (75-99) mg/dL Assessment and Plan (1) Pneumonia Current Visit: Yes Status: Acute Code(s): J18.9 - PNEUMONIA, UNSPECIFIED ORGANISM SNOMED Code(s): 209009014 Plan: 1patient presented to hospital with mental status changes unresponsive and respiratory failure and concern for possible aspiration pneumonitis. 2patient with right lower extremity wound likely from ruptured blister and mild cellulitis likely from gram-positive skin deanna. 3patient did have evidence of groin area cutaneous candidiasis 4-Patient has shown clinical improvement and will with Zosyn sputum culture has been requested 5nystatin powder to the groin twice daily. Which has shown improvement 6local wound care to the right lower extremity and right arm wound with dry Aquacel silver dressing change every 48 hour Time with Patient: Less than 30
--- NOTE | 2021-09-04 08:05 | P.PN ---
Subjective Progress Note Date: 09/03/21 Principal diagnosis: Pneumonia, possible cellulitis Patient is a 71-year-old male with a past medical history significant for COPD diabetes mellitus hypertension left odjmd-txl-xqsn potation presented to hospital for mental status changes and the patient was found unresponsive with unknown downtime. On today's evaluation that is 09/03/2021, the patient denies any fever or chills, the patient is breathing comfortably on 2 L nasal cannula oxygen, the patient denies having any chest pain, the patient did have a cough with occasional sputum , the patient denies abdominal pain no diarrhea Objective - Vital Signs Vital signs: Vital Signs Temp 98.4 F 09/03/21 08:00 Pulse 67 09/03/21 11:21 Resp 18 09/03/21 08:00 BP 140/82 09/03/21 08:00 Pulse Ox 95 09/03/21 08:00 FiO2 40 09/01/21 00:15 Intake & Output 09/02/21 09/03/21 09/03/21 18:59 06:59 18:59 Intake Total 59 Output Total 650 1160 600 Balance -650 -1160 -541 Weight 55.701 kg Intake: Oral 59 Output: Urine 650 1160 600 Other: Voiding Method Indwelling Catheter Indwelling Catheter Indwelling Catheter # Bowel Movements 1 - Exam GENERAL DESCRIPTION: Elderly male lying in bed, no distress. No tachypnea or accessory muscle of respiration use. LUNGS: Unlabored breathing. Decreased intensity breath sounds , no wheeze HEART: S1, S2, regular rate and rhythm. ABDOMEN: Soft, no tenderness , guarding or rigidity, no organomegaly EXTREMITIES: Right lower extremity redness has improved - Labs CBC & Chem 7: 09/03/21 08:53 09/03/21 08:53 Labs: Abnormal Lab Results - Last 24 Hours (Table) 09/02/21 09/02/21 09/02/21 Range/Units 11:46 17:05 20:34 Hgb (13.0-17.5) gm/dL Hct (39.0-53.0) % MCH (25.0-35.0) pg MCHC (31.0-37.0) g/dL RDW (11.5-15.5) % Lymphocytes # (1.0-4.8) k/uL Sodium (137-145) mmol/L BUN (9-20) mg/dL Glucose (74-99) mg/dL POC Glucose (mg/dL) 152 H 209 H 217 H (75-99) mg/dL Calcium (8.4-10.2) mg/dL Total Protein (6.3-8.2) g/dL Albumin (3.5-5.0) g/dL 09/03/21 09/03/21 09/03/21 Range/Units 06:24 08:53 08:53 Hgb 10.9 L (13.0-17.5) gm/dL Hct 38.0 L (39.0-53.0) % MCH 23.4 L (25.0-35.0) pg MCHC 28.6 L (31.0-37.0) g/dL RDW 18.6 H (11.5-15.5) % Lymphocytes # 0.2 L (1.0-4.8) k/uL Sodium 134 L (137-145) mmol/L BUN 22 H (9-20) mg/dL Glucose 384 H (74-99) mg/dL POC Glucose (mg/dL) 192 H (75-99) mg/dL Calcium 8.2 L (8.4-10.2) mg/dL Total Protein 5.3 L (6.3-8.2) g/dL Albumin 2.8 L (3.5-5.0) g/dL Assessment and Plan (1) Pneumonia Current Visit: Yes Status: Acute Code(s): J18.9 - PNEUMONIA, UNSPECIFIED ORGANISM SNOMED Code(s): 307606134 Plan: 1patient presented to hospital with mental status changes unresponsive and respiratory failure and concern for possible aspiration pneumonitis. 2patient with right lower extremity wound likely from ruptured blister and mild cellulitis likely from gram-positive skin deanna. 3patient did have evidence of groin area cutaneous candidiasis. 4nystatin powder to the groin twice daily. Which has shown improvement 5local wound care to the right lower extremity with dry Aquacel silver dressing change every 48 hour 6-Patient did have improvement in his respiratory status and will continue with the Zosyn while waiting for the sputum culture to be finalize Time with Patient: Less than 30
[2021-09-04] MEDS: ENOXAPARIN 40 MG/0.4 ML SYRINGE SQ SCH (08:46)
[2021-09-04] MEDS: ASPIRIN 81 MG PO SCH (08:47)
[2021-09-04] MEDS: amLODIPine 5 MG TAB PO SCH (08:47)
[2021-09-04] MEDS: TAMSULOSIN 0.4 MG CAP.ER.24H PO SCH (08:47)
[2021-09-04] MEDS: predniSONE 20 MG TAB PO SCH (08:47)
[2021-09-04] MEDS: NICOTINE 21MG/24HR PATCH TRANSDERM SCH (08:48)
[2021-09-04] MEDS: METOPROLOL SUCCINATE (ER) 25 MG TAB.ER.24H PO SCH (08:48)
[2021-09-04] MEDS: ATORVASTATIN 80 MG TAB PO SCH (08:48)
[2021-09-04] MEDS: GABAPENTIN 300 MG CAP PO SCH ×3 (08:48→21:17)
[2021-09-04] MEDS: HYDROcodone/APAP 10-325MG 1 EACH TAB PO PRN ×2 (08:48→21:17)
[2021-09-04] MEDS: lisinopriL 20 MG TAB PO SCH (08:48)
[2021-09-04] MEDS: MULTIVITAMINS, THERA 1 EACH TAB PO SCH (08:48)
--- NOTE | 2021-09-04 10:48 | P.PN ---
Subjective Progress Note Date: 09/04/21 HISTORY OF PRESENT ILLNESS: This is a 71-year-old male with a past medical history significant for coronary artery disease with previous stenting of the LAD and RCA, peripheral arterial disease, left erwnp-mhd-yblj amputation, nicotine dependence, COPD, hypertension, and hyperlipidemia. Patient follows in the office with Dr. Palafox. We have been asked to see the patient in consultation for shortness of breath. Patient examined at the bedside. The patient was admitted to the hospital after being found down at home with multiple fentanyl patches. The patient is currently being treated for aspiration pneumonia. He is currently on a liters nasal cannula. He reports his shortness of breath is improving. He is laying flat in bed and appears to be comfortable at rest. He denies any chest pain or pressure. * EKG reveals sinus mechanism with no signs of acute ischemia * Chest xray mild cardiomegaly with mild interstitial edema. Correlate for CHF exacerbation. Developing right upper lung infiltrate cannot be excluded * Laboratory data: WBC 7.2. Hemoglobin 10.6. Platelet count 307. Sodium 135. Potassium 3.9. BUN 13. Creatinine 0.68. ProBNP 6400 * Current home cardiac medications include aspirin 81 mg daily, Lipitor 80 mg daily, metoprolol succinate 25 mg daily, amlodipine 5 mg daily, lisinopril 20 mg daily * Most recent echocardiogram obtained in July 2020 revealed ejection fraction 55-60%, trace MR, trace TR * Cardiac catheterization history: July 2020 with stenting of the mid RCA 09/02/2021 Patient examined this morning at the bedside. He denies CP. Reports improvement in his SOB. Patient is currently on 6 L nasal cannula. Echocardiogram completed revealing ejection fraction 55-60%, severe pulmonary hypertension, moderate tricuspid regurgitation. 09/04/2021 patient examined this morning at the bedside. Patient states he is not feeling great today. He reports shortness of breath although is improved from admission. He denies chest pain or pressure. PHYSICAL EXAM: VITAL SIGNS: Reviewed. GENERAL: Well-developed in no acute distress. HEENT: Head is normocephalic. Pupils are equal, round. Sclerae anicteric. Mucous membranes of the mouth are moist. Neck supple. No JVD or thyromegaly LUNGS: Respirations even and unlabored. Lungs diminished to auscultation bilaterally. HEART: Regular rate and rhythm. S1 and S2 heard. ABDOMEN: Soft. Nondistended. Nontender. EXTREMITIES: Left AKA. Normal range of motion. No clubbing or cyanosis. Peripheral pulses intact. No lower extremity edema NEUROLOGIC: Awake and alert. Oriented x 3. ASSESSMENT: Opiate overdose Shortness of breath, does not appear to be in acute CHF at this time Pneumonia Coronary artery disease with previous PCI Peripheral arterial disease History of left wgxnr-vdt-dhgx amputation COPD Hypertension Hyperlipidemia Nicotine dependence PLAN: Continue current cardiac medications Wean oxygen as tolerated Pulmonary following Further recommendations pending patient course Nurse practitioner note has been reviewed by physician. Signing provider agrees with the documented findings, assessment, and plan of care. Objective - Vital Signs Vital signs: Vital Signs Temp 98.2 F 09/04/21 08:00 Pulse 84 09/04/21 08:00 Resp 19 09/04/21 08:00 BP 135/63 09/04/21 08:00 Pulse Ox 92 L 09/04/21 08:00 FiO2 40 09/01/21 00:15 Intake & Output 09/03/21 09/04/21 09/04/21 18:59 06:59 18:59 Intake Total 177 420 Output Total 1150 2400 800 Balance -973 -2400 -380 Weight 55.701 kg 56.5 kg Intake: Oral 177 420 Output: Urine 1150 2400 800 Other: Voiding Method Indwelling Catheter Indwelling Catheter Indwelling Catheter # Bowel Movements 1 0 1 - Labs CBC & Chem 7: 09/03/21 08:53 09/03/21 08:53 Labs: Abnormal Lab Results - Last 24 Hours (Table) 09/03/21 09/03/21 09/03/21 Range/Units 11:38 16:51 20:07 POC Glucose (mg/dL) 298 H 224 H 182 H (75-99) mg/dL 09/04/21 Range/Units 06:29 POC Glucose (mg/dL) 118 H (75-99) mg/dL Microbiology - Last 24 Hours (Table) 09/03/21 15:20 Sputum Culture - Preliminary Sputum
[2021-09-04] MEDS ORDERED: ALPRAZolam 0.25 MG TAB ONE (12:12)
[2021-09-04] MEDS ORDERED: HYDROcodone/APAP 10-325MG 1 EACH TAB ONE (12:12)
[2021-09-04] MEDS ORDERED: IPRATROPIUM-ALBUTEROL 3 ML NEB ONE (12:12)
[2021-09-04 14:42] LABS: Anisocytosis Slight; Basophils % (A) 0 %; Eosinophils # (A) 0.1 k/uL (0-0.7); Eosinophils % (A) 0 %; HCT 40.7 % (39.0-53.0); HGB 11.7 gm/dL (13.0-17.5); Hypochromasia Marked; Lymphocytes # (A) 0.9 k/uL (1.0-4.8); Lymphocytes % (A) 6 %; MCH 23.2 pg (25.0-35.0); MCHC 28.6 g/dL (31.0-37.0); MCV 80.9 fL (80.0-100.0); Mean Platelet Volume 7.6; Microcytosis Slight; Monocytes # (A) 0.6 k/uL (0-1.0); Monocytes % (A) 5 %; Neutrophils # (A) 11.9 k/uL (1.3-7.7); Neutrophils % (A) 88 %; Platelet Count 435 k/uL (150-450); RBC 5.03 m/uL (4.30-5.90); RDW 18.6 % (11.5-15.5); WBC 13.5 k/uL (3.8-10.6)
--- NOTE | 2021-09-04 14:44 | P.PN ---
Subjective Progress Note Date: 09/04/21 71-year-old white male patient with known history of COPD, hypertension, diabetes mellitus type 2, history of left rjsrz-tqx-owdg amputation in 2009 for nonhealing wound related to MRSA infection, osteoarthritis, peripheral vascular disease with previous intervention of the left leg, who presented to the ER 08/29/2021 by EMS for evaluation of altered mental status. Patient was found down with unknown downtime. He was found was significant amount of fentanyl patches on, unresponsive, and unable to provide any history. Brain CT shows no acute intracranial abnormality. Chest x-ray showed mild cardiomegaly with mild interstitial edema and developing right upper lobe infiltrate. Pelvis x-ray was obtained related to a fall with possibility of injury, showing no acute displaced fracture. Lab work showed white blood cell count of 8.3, hemoglobin of 9.3, INR is 1.0, BUN of 49, creatinine 0.98, electrolytes were unremarkable, LFTs were within normal limits, ammonia level was less than 9, CK-MB was 3.3, troponin was less than 0.012, urinalysis showed large amount of blood, trace leukocyte esterase, 6 white blood cells, no clear evidence of urinary tract infection. Urine drug screen was positive for opiates, and marijuana, serum alcohol level was less than 10. Patient was started on antibiotics, breathing treatments, he was given 2-1/2 L of fluid boluses, and his IV fluids are infusing at a rate of 130 ml. The patient is seen today 08/30/2021 in follow-up on the regular medical floor. He is currently resting in bed. More awake and alert. Oriented 3. He is still on 10 L high flow nasal cannula. 0.9 normal saline at 130 MLS per hour. Urine culture pending. White count 12.8. Hemoglobin 11.2. Sodium 141. Potassium 4.2. Bicarb 24. BUN 19. Creatinine 0.69. Continued on DuoNeb inhalations, Symbicort. NicoDerm patches in place. Remains on Zosyn. Reevaluated today on 08/31/2021, patient remains on the regular medical floor, tells me that his feeling better today, breathing easier. Patient has BiPAP at bedside, he is now on 10 L high flow nasal cannula, and O2 sats is 97%. Patient does not seem to be very compliant with BiPAP. Chest x-ray showed persistent interstitial infiltrates/edema however the findings seem to be mostly in the left lower lobe hence I am favoring pneumonia over pulmonary edema WBC count is 9.7 hemoglobin is 10.4 electrodes are normal renal profile is normal 09 01 2021, the patient remains on a medical floor. He is on 8 L of O2 nasal cannula. Pulse ox is 94%. Using the BiPAP on and off during the day. Feeling well. He is feeling less short of breath. The chest x-ray showing COPD along with a left lower lobe consolidation. The patient remains on IV Zosyn covering the patient for an aspiration pneumonia. No nausea. No vomiting. No emesis. He is a chronic smoker. He also has severe peripheral vascular disease with previous above-knee 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. No signs of any acute infection. He has overdosed on fentanyl patches. He smokes also marijuana. IV fluids are currently at 25 mL's an hour. Is tolerating his diet. No signs of any withdrawal. 09/02/2021, I'm seeing the patient for a follow-up. Doing well. No specific complaints no chest pain. No nausea or vomiting. The patient's FiO2 has been reduced down to 5 L and the patient's current pulse ox is around 95%. I dropped it down further to 4 L. The patient remains on IV Zosyn. He is communicating. No altered mentation. Remains on bronchodilators. He remains on steroids with IV Solu Medrol 60 mg every 6 hours IV. No other significant events overnight. Tolerating his diet. No aspiration. 09/03/2021, I'm seeing the patient for a follow-up. The patient is still on 4 L of oxygen by nasal cannula. Using the bronchodilators and using the steroids and the patient remains on IV Zosyn. I was hoping to wean the patient's FiO2 further. The patient does not have home oxygen. A repeat chest x-ray was done today shows some interval improvement in the aeration of the left lung base. Right lung remains essentially unchanged. The patient remains on IV Zosyn for now. The blood work from today showing a white cell count of 6 with a hemoglobin of 10.9. The sodium is at 134 with a BUN of 22 and a creatinine of 0.9. No other changes in his medication. Using incentive spirometer. Remains on IV Zosyn. Remains on IV Solu Medrol. Remains on Symbicort as maintenance and albuterol/ipratropium nebulized treatments around the clock 4 times a day. The patient is seen today 09/04/2021 in follow-up on the selective care unit. He is currently awake and alert sitting up at the bedside. Denies any worsening shortness of breath, cough or congestion. He is maintaining good O2 saturations in the 90s on 3 L/m per nasal cannula. He's been afebrile. Hemodynamically stable. Urine culture revealed no growth. Sputum culture revealed no growth. Blood glucose 118. He is continued on Symbicort and DuoNeb inhalations. Remains on antibiotics in the form of Zosyn. Currently on a prednisone taper. Lovenox for DVT prophylaxis. Objective - Vital Signs Vital signs: Vital Signs Temp 98.2 F 09/04/21 08:00 Pulse 84 09/04/21 08:00 Resp 19 09/04/21 08:00 BP 135/63 09/04/21 08:00 Pulse Ox 92 L 09/04/21 08:00 FiO2 40 09/01/21 00:15 Intake & Output 09/03/21 09/04/21 09/04/21 18:59 06:59 18:59 Intake Total 177 420 Output Total 1150 2400 800 Balance -973 -2400 -380 Weight 55.701 kg 56.5 kg Intake: Oral 177 420 Output: Urine 1150 2400 800 Other: Voiding Method Indwelling Catheter Indwelling Catheter Indwelling Catheter # Bowel Movements 1 0 1 - Exam GENERAL EXAM: Alert, pleasant 71-year-old male patient, on 3 L high flow nasal cannula, comfortable in no apparent distress. HEAD: Normocephalic/atraumatic. EYES: Normal reaction of pupils, equal size. Conjunctiva pink, sclera white. NOSE: Clear with pink turbinates. THROAT: No erythema or exudates. NECK: No masses, no JVD, no thyroid enlargement, no adenopathy. CHEST: No chest wall deformity. Symmetrical expansion. LUNGS: Equal air entry with bilateral scattered wheezes and rhonchi CVS: Regular rate and rhythm, normal S1 and S2, no gallops, no murmurs, no rubs ABDOMEN: Soft, nontender. No hepatosplenomegaly, normal bowel sounds, no guarding or rigidity. EXTREMITIES: No clubbing, no edema, no cyanosis, 2+ pulses and upper and lower extremities. Left rifqg-gsv-bavv amputee MUSCULOSKELETAL: Muscle strength and tone normal. SPINE: No scoliosis or deformity SKIN: No rashes CENTRAL NERVOUS SYSTEM: Alert, oriented. No focal deficits, tone is normal in all 4 extremities. - Labs CBC & Chem 7: 09/03/21 08:53 09/03/21 08:53 Labs: Abnormal Lab Results - Last 24 Hours (Table) 09/03/21 09/03/21 09/04/21 Range/Units 16:51 20:07 06:29 POC Glucose (mg/dL) 224 H 182 H 118 H (75-99) mg/dL Microbiology - Last 24 Hours (Table) 09/03/21 15:20 Sputum Culture - Preliminary Sputum Assessment and Plan Assessment: Acute hypoxic and hypercapnic respiratory failure related to aspiration pneumonia Suspect opiate overdose History of COPD Acute mental status change multifactorial related to toxic and metabolic encephalopathy, improved Diabetes mellitus type 2 Chronic back pain History of left pxjfb-vfb-zxvo amputation for nonhealing left leg wound and MRSA infection History of peripheral vascular disease with previous intervention the left leg History of coronary artery disease with stenting Plan: The patient was seen and evaluated Much more awake and alert today Continue bronchodilators and Zosyn Titrate down the FiO2 as tolerated Educated regarding the importance of complete smoking cessation NicoDerm patches in place Avoid narcotics, sedatives and anxiolytics We will continue to follow I have personally seen and examined the patient, performed the documentation and the assessment and plan as written. Number of minutes spent on the visit: 10. I have personally seen and examined the patient and reviewed the documentation. I performed a joint evaluation with the nurse practitioner in this evaluation was done more than 20 minutes. I fully agree with the documentation above and the plan of care.. The patient is doing well. The patient received a total dose of diuretics/Lasix yesterday and the patient has been negative fluid balance. No significant respiratory distress at this point in time. The patient is being weaned off the oxygen and currently is down to 3 L per minute nasal cannula. Remains on Zosyn. Needs rehabilitation and strengthening. Smoking cessation counseling was done. We'll continue to follow.
[2021-09-04 14:45] LABS: ALT 28 U/L (4-49); AST 27 U/L (17-59); African American GFR (CKD) >90 (>60 ml/min/1.73 sqM); Albumin 2.7 g/dL (3.5-5.0); Alkaline Phosphatase 57 U/L (38-126); Anion Gap 4 mmol/L; Blood Urea Nitrogen 28 mg/dL (9-20); Calcium 8.2 mg/dL (8.4-10.2); Carbon Dioxide 33 mmol/L (22-30); Chloride 99 mmol/L (98-107); Glucose 160 mg/dL (74-99); Non-African American GFR(CKD) 81 (>60 ml/min/1.73 sqM); Potassium 4.4 mmol/L (3.5-5.1); Sodium 136 mmol/L (137-145); Total Bilirubin 0.4 mg/dL (0.2-1.3); Total Protein 5.2 g/dL (6.3-8.2)
[2021-09-04 14:47] LABS: Glucose,Whole Blood 160 mg/dL (75-99)
[2021-09-04] MEDS: NYSTATIN 100,000 UNIT/GM POWD 15 GM TOPICAL SCH ×2 (15:06→21:17)
[2021-09-04 16:23] LABS: Glucose,Whole Blood 304 mg/dL (75-99)
--- NOTE | 2021-09-04 19:22 | P.PN ---
Subjective Progress Note Date: 09/04/21 Baldev Joyce, is a 71-year-old male patient who presented to the ER with concerns about mental status changes. According to ER record patient was found down unknown downtime with a significant amount of fentanyl patches on body. Patient has medical history of COPD, diabetes mellitus, hypertension, myocardial infarction osteoarthritis of vascular disease. Head CT was completed showing mild cerebral atrophy no acute intracranial abnormality no change. Chest x-ray completed showing mild cardiomegaly with mild interstitial edema correlate for CHF exacerbation developing right upper lung infiltrate cannot be excluded. Pelvis x-ray completed showing no new acute displaced fracture seen. UA comp leted showing large amount of blood and trace amount of leukocyte Estrace. Patient started on Rocephin. Upon exam patient remains in ER quite lethargic on 4 L nasal cannula. Bilateral legs appear red possible cellulitis. Patient started on Rocephin. Will consult pulmonary services for possible pneumonia repeat 2 view chest x-ray. 08/30/2021 patient was seen and examined on the medical floor he is alert and oriented 3 in no apparent distress, currently he is maintained on oxygen via nasal cannula at 6 L he required BiPAP throughout last night, he is still complaining of cough and shortness of breath and generalized body ache otherwise he denies any symptoms there is no fever or chills no headache or dizziness no chest pain no nausea or vomiting no abdominal pain no diarrhea and no urinary symptoms. Vital exam reveals a temperature of 98.1 pulse 122 respiration 38 blood pressure 168/74 pulse ox 93% on 6 L nasal cannula. On 08/31/2021 patient was seen and examined on the telemetry floor he is alert and oriented 3 in no apparent distress he had worsening shortness of breath las t night and required BiPAP, currently he is maintained on oxygen 10 L via nasal cannula, repeat chest x-ray revealed persistent but improving interstitial edema, clinically patient is feeling better he reports some improvement in the shortness of breath he is alert and oriented 3 in no distress there is no fever or chills no headache or dizziness no chest pain he has occasional cough no nausea or vomiting no abdominal pain no diarrhea and no urinary symptoms On 09/01/2021 patient was seen and examined on the telemetry floor he is alert and oriented 3 in no apparent distress there is no fever or chills no headache or dizziness no chest pain he stated that his shortness of breath is improving he has occasional cough no nausea or vomiting no abdominal pain no diarrhea and no urinary symptoms. He is complaining of worsening pain in the left hip. On 09/02/2021 patient is alert and oriented 3 in no apparent distress there is no fever or chills no headache or dizziness no chest pain he stated that his shortness of breath is improving he has occasional cough no nausea or vomiting no abdominal pain no diarrhea and no urinary symptoms. Repeat chest x-ray and left hip x-ray are pending, patient remains on IV Solu-Medrol and IV Zosyn, will continue to follow On 09/03/2021 patient is alert and oriented 3. Patient remains on IV Solu- Medrol and IV Zosyn. Pulmonary, cardiology and infectious disease services are following. Per case management patient is now agreeable for ECF placement at [facility]. Current vitals temp 98.4, heart rate 89, respiratory rate 18, blood pressure 148 bradycardia to patient satting 95% on 4 L On 09/04/2021 patient was seen and examined on the medical floor he is alert and oriented 3 in no apparent distress he is still complaining of cough and shortness of breath, he is also complaining of difficulty sleeping, and complaining of pain in the left hip area otherwise he denies any complaints there is no fever or chills no headache or dizziness no chest pain no nausea or vomiting no abdominal pain no diarrhea and no urinary symptoms, recommendation from pulmonary is to continue with IV Zosyn, patient remains on oxygen 4 L via nasal cannula. Objective - Vital Signs Vital signs: Vital Signs Temp 97.8 F 09/04/21 12:00 Pulse 84 09/04/21 16:01 Resp 19 09/04/21 14:00 BP 141/66 09/04/21 12:00 Pulse Ox 94 L 09/04/21 12:00 FiO2 40 09/01/21 00:15 Intake & Output 09/03/21 09/04/21 09/04/21 18:59 06:59 18:59 Intake Total 177 420 Output Total 1150 2400 800 Balance -973 -2400 -380 Weight 55.701 kg 56.5 kg Intake: Oral 177 420 Output: Urine 1150 2400 800 Other: Voiding Method Indwelling Catheter Indwelling Catheter Indwelling Catheter # Bowel Movements 1 0 1 - Exam In general patient is alert and oriented 3 in no apparent distress Head normocephalic and atraumatic Neck supple no JVD no goiter Lungs exam with a scattered crackles bilaterally no wheezing Heart regular rate and rhythm S1-S2, no rub or gallop Abdomen is soft nontender nondistended positive bowel sounds no hepatosplenomegaly Extremities no edema, [id number] 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 Neuro no gross focal deficit - Labs CBC & Chem 7: 09/04/21 08:56 09/04/21 08:56 Labs: Abnormal Lab Results - Last 24 Hours (Table) 09/03/21 09/03/21 09/04/21 Range/Units 16:51 20:07 06:29 WBC (3.8-10.6) k/uL Hgb (13.0-17.5) gm/dL MCH (25.0-35.0) pg MCHC (31.0-37.0) g/dL RDW (11.5-15.5) % Neutrophils # (1.3-7.7) k/uL Lymphocytes # (1.0-4.8) k/uL Sodium (137-145) mmol/L Carbon Dioxide (22-30) mmol/L BUN (9-20) mg/dL Glucose (74-99) mg/dL POC Glucose (mg/dL) 224 H 182 H 118 H (75-99) mg/dL Calcium (8.4-10.2) mg/dL Total Protein (6.3-8.2) g/dL Albumin (3.5-5.0) g/dL 09/04/21 09/04/21 09/04/21 Range/Units 08:56 08:56 11:31 WBC 13.5 H (3.8-10.6) k/uL Hgb 11.7 L (13.0-17.5) gm/dL MCH 23.2 L (25.0-35.0) pg MCHC 28.6 L (31.0-37.0) g/dL RDW 18.6 H (11.5-15.5) % Neutrophils # 11.9 H (1.3-7.7) k/uL Lymphocytes # 0.9 L (1.0-4.8) k/uL Sodium 136 L (137-145) mmol/L Carbon Dioxide 33 H (22-30) mmol/L BUN 28 H (9-20) mg/dL Glucose 160 H (74-99) mg/dL POC Glucose (mg/dL) 160 H (75-99) mg/dL Calcium 8.2 L (8.4-10.2) mg/dL Total Protein 5.2 L (6.3-8.2) g/dL Albumin 2.7 L (3.5-5.0) g/dL Microbiology - Last 24 Hours (Table) 09/03/21 15:20 Gram Stain - Preliminary Sputum Sputum Culture - Preliminary Assessment and Plan Assessment: 1. Altered mental status changes secondary to opiate overdose with multiple fentenyl patches on body according to ER report 2. Hematuria and urinary tract infection. 3. Acute hypoxic and hypercapnic respiratory failure secondary to aspiration pneumonia and opiate overdose 4. Cellulitis of right lower extremity. Infectious disease services also consulted. 5. History of COPD 6. Underlying history of essential hypertension 7. Underlying history of hyperlipidemia 8. Underlying history of depression 9. Underlying chronic pain syndrome 10. Underlying history of GERD 11. Underlying history of peripheral vascular disease 12. Shortness of breath, related to pneumonia versus CHF, 2-D echo completed showing an EF of 55-60%. Per cardiology shortness of breath does not appear to be CHF at this time 13. History of recent left hip fracture. Patient was previously evaluated by Dr. Angeles and conservative treatment was used at that time. Repeat hip x-ray completed showing intertrochanteric fracture left femur without change fracture seen. Will reconsult Dr. Angeles at this time to reevaluate Pulmonary, infectious disease and cardiology services following Remains on IV Zosyn and IV steroids Discharge planning is in progress. Patient is agreeable to rehab [facility]
[2021-09-04 19:24] LABS: Glucose,Whole Blood 280 mg/dL (75-99)
[2021-09-04] MEDS: ALPRAZolam 0.25 MG TAB PO PRN (23:12)
[2021-09-05] MEDS: HYDROcodone/APAP 10-325MG 1 EACH TAB PO PRN ×3 (03:32→14:01)
[2021-09-05] MEDS: PIPERACILLIN-TAZOBACTAM 3.375 GM in SODIUM CHLORIDE 0.9% 100 ML IVPB SCH ×2 (03:32→13:12)
[2021-09-05 05:27] LABS: Glucose,Whole Blood 98 mg/dL (75-99)
[2021-09-05] MEDS: INSULIN ASPART (NovoLOG) 100 UNIT/ML VIAL SQ SCH ×2 (05:31→13:14)
[2021-09-05] MEDS: PANTOPRAZOLE 40 MG TABLET PO SCH (06:24)
[2021-09-05] MEDS: IPRATROPIUM-ALBUTEROL 3 ML NEB INHALATION SCH ×2 (09:08→11:15)
[2021-09-05] MEDS: SYMBICORT 160-4.5 MCG INHALER INHALATION SCH (09:08)
[2021-09-05] MEDS: GABAPENTIN 300 MG CAP PO SCH (09:28)
[2021-09-05] MEDS: lisinopriL 20 MG TAB PO SCH (09:28)
[2021-09-05] MEDS: TAMSULOSIN 0.4 MG CAP.ER.24H PO SCH (09:28)
[2021-09-05] MEDS: ATORVASTATIN 80 MG TAB PO SCH (09:28)
[2021-09-05] MEDS: amLODIPine 5 MG TAB PO SCH (09:28)
[2021-09-05] MEDS: ASPIRIN 81 MG PO SCH (09:28)
[2021-09-05] MEDS: MULTIVITAMINS, THERA 1 EACH TAB PO SCH (09:29)
[2021-09-05] MEDS: METOPROLOL SUCCINATE (ER) 25 MG TAB.ER.24H PO SCH (09:29)
[2021-09-05] MEDS: predniSONE 20 MG TAB PO SCH (09:29)
[2021-09-05] MEDS: ENOXAPARIN 40 MG/0.4 ML SYRINGE SQ SCH (09:36)
[2021-09-05] MEDS: NICOTINE 21MG/24HR PATCH TRANSDERM SCH (09:36)
[2021-09-05] MEDS: NYSTATIN 100,000 UNIT/GM POWD 15 GM TOPICAL SCH (09:36)
--- NOTE | 2021-09-05 10:47 | P.DS ---
Providers Date of admission: 08/29/21 05:12 Expected date of discharge: 09/05/21 Attending physician: Fidencio Barrientos Consults: 08/29/21 11:23 Consult Physician Routine Consulting Provider: Armando Davis Consult Reason/Comments: possible pneumonia. cellulits Do you want consulting provider notified?: Yes 08/29/21 11:24 Consult Physician Routine Consulting Provider: Patricio Flanagan Consult Reason/Comments: possible pneumonia Do you want consulting provider notified?: Yes 09/03/21 10:08 Consult Physician Routine Consulting Provider: Chace Angeles Consult Reason/Comments: recent hip fracture. previously seen Do you want consulting provider notified?: Yes Primary care physician: Fidencio Barrientos [facility] Course: Discharge diagnosis 1. Altered mental status changes secondary to opiate overdose with multiple fentenyl patches on body according to ER report 2. Hematuria and urinary tract infection. 3. Acute hypoxic and hypercapnic respiratory failure secondary to aspiration pneumonia and opiate overdose 4. Cellulitis of right lower extremity. Infectious disease services also consulted. 5. History of COPD 6. Underlying history of essential hypertension 7. Underlying history of hyperlipidemia 8. Underlying history of depression 9. Underlying chronic pain syndrome 10. Underlying history of GERD 11. Underlying history of peripheral vascular disease 12. Shortness of breath, related to pneumonia versus CHF, 2-D echo completed showing an EF of 55-60%. Per cardiology shortness of breath does not appear to be CHF at this time 13. History of recent left hip fracture. Patient was previously evaluated by Dr. Angeles and conservative treatment was used at that time. Repeat hip x-ray completed showing intertrochanteric fracture left femur without change fracture seen. Will reconsult Dr. Angeles at this time to reevaluate. Kidney conservative management per orthopedic services Hospital course Baldev Joyce, is a 71-year-old male patient who presented to the ER with concerns about mental status changes. According to ER record patient was found down unknown downtime with a significant amount of fentanyl patches on body. Patient has medical history of COPD, diabetes mellitus, hypertension, myocardial infarction osteoarthritis of vascular disease. Head CT was completed showing mild cerebral atrophy no acute intracranial abnormality no change. Chest x-ray completed showing mild cardiomegaly with mild interstitial edema correlate for CHF exacerbation developing right upper lung infiltrate cannot be excluded. Pelvis x-ray completed showing no new acute displaced fracture seen. UA completed showing large amount of blood and trace amount of leukocyte Estrace. Patient started on Rocephin. Upon exam patient remains in ER quite lethargic on 4 L nasal cannula. Bilateral legs appear red possible cellulitis. Patient started on Rocephin. Will consult pulmonary services for possible pneumonia repeat 2 view chest x-ray. 08/30/2021 patient was seen and examined on the medical floor he is alert and oriented 3 in no apparent distress, currently he is maintained on oxygen via nasal cannula at 6 L he required BiPAP throughout last night, he is still complaining of cough and shortness of breath and generalized body ache otherwise he denies any symptoms there is no fever or chills no headache or dizziness no chest pain no nausea or vomiting no abdominal pain no diarrhea and no urinary symptoms. Vital exam reveals a temperature of 98.1 pulse 122 respiration 38 blood pressure 168/74 pulse ox 93% on 6 L nasal cannula. On 08/31/2021 patient was seen and examined on the telemetry floor he is alert and oriented 3 in no apparent distress he had worsening shortness of breath last night and required BiPAP, currently he is maintained on oxygen 10 L via nasal cannula, repeat chest x-ray revealed persistent but improving interstitial edema, clinically patient is feeling better he reports some improvement in the shortness of breath he is alert and oriented 3 in no distress there is no fever or chills no headache or dizziness no chest pain he has occasional cough no na usea or vomiting no abdominal pain no diarrhea and no urinary symptoms On 09/01/2021 patient was seen and examined on the telemetry floor he is alert and oriented 3 in no apparent distress there is no fever or chills no headache or dizziness no chest pain he stated that his shortness of breath is improving he has occasional cough no nausea or vomiting no abdominal pain no diarrhea and no urinary symptoms. He is complaining of worsening pain in the left hip. On 09/02/2021 patient is alert and oriented 3 in no apparent distress there is no fever or chills no headache or dizziness no chest pain he stated that his shortness of breath is improving he has occasional cough no nausea or vomiting no abdominal pain no diarrhea and no urinary symptoms. Repeat chest x-ray and left hip x-ray are pending, patient remains on IV Solu-Medrol and IV Zosyn, will continue to follow On 09/03/2021 patient is alert and oriented 3. Patient remains on IV Solu- Medrol and IV Zosyn. Pulmonary, cardiology and infectious disease services are following. Per case management patient is now agreeable for ECF placement at [facility]. Current vitals temp 98.4, heart rate 89, respiratory rate 18, blood pressure 148 bradycardia to patient satting 95% on 4 L On 09/04/2021 patient was seen and examined on the medical floor he is alert and oriented 3 in no apparent distress he is still complaining of cough and shortness of breath, he is also complaining of difficulty sleeping, and complaining of pain in the left hip area otherwise he denies any complaints there is no fever or chills no headache or dizziness no chest pain no nausea or vomiting no abdominal pain no diarrhea and no urinary symptoms, recommendation from pulmonary is to continue with IV Zosyn, patient remains on oxygen 4 L via nasal cannula. On 09/05/2021 patient is alert and oriented 3. Awaiting final insurance prior off for discharge to ECF facility. Patient will likely be discharged ECF today. At this time patient denies chest pain or shortness breath. Patient denies any nausea vomiting or diarrhea. Patient denies any urinary burning or frequency Patient Condition at Discharge: Stable Plan - Discharge Summary Discharge Rx Participant: No New Discharge Prescriptions: No Action Aspirin 81 mg PO DAILY DULoxetine HCL [Cymbalta] 60 mg PO DAILY lisinopriL [Prinivil] 20 mg PO DAILY Pantoprazole Sodium [Protonix] 40 mg PO DAILY Escitalopram [Lexapro] 10 mg PO DAILY amLODIPine [Norvasc] 5 mg PO DAILY fentaNYL 100MCG/HR PATCH [Duragesic 100MCG/HR] 100 mcg TRANSDERM Q72H #1 patch Gabapentin [Neurontin] 300 mg PO TID #9 cap Hydrocodone/Acetaminophen [Causey 10-325] 1 tab PO Q6H PRN #12 tablet PRN Reason: Pain Enulose 10gm/15ml 20 gm PO Q48H PRN PRN Reason: Constipation Nitroglycerin Sl Tabs [Nitrostat] 0.4 mg SUBLINGUAL Q5M PRN #30 tab PRN Reason: Chest Pain Budesonide-Formot 160-4.5 Mcg [Symbicort 160-4.5 Mcg Inhaler] 2 puff INHALATION RT-BID Albuterol Sulfate [Proair Hfa] 2 puff INHALATION RT-QID PRN PRN Reason: Shortness Of Breath Multivitamins, Thera [Multivitamin (formulary)] 1 tab PO DAILY Atorvastatin [Lipitor] 80 mg PO DAILY #30 tab Metoprolol Succinate (ER) [Toprol XL] 25 mg PO DAILY #30 tab.er.24h Terbinafine [LamISIL] 250 mg PO DAILY Naloxone [Narcan] 1 mg SQ ONCE PRN PRN Reason: OVERDOSE Tamsulosin [Flomax] 0.4 mg PO DAILY Discharge Medication List Aspirin 81 mg PO DAILY 01/14/14 [History] DULoxetine HCL [Cymbalta] 60 mg PO DAILY 01/14/14 [History] lisinopriL [Prinivil] 20 mg PO DAILY 01/14/14 [History] Escitalopram [Lexapro] 10 mg PO DAILY 06/13/18 [History] Pantoprazole Sodium [Protonix] 40 mg PO DAILY 06/13/18 [History] amLODIPine [Norvasc] 5 mg PO DAILY 06/13/18 [History] Gabapentin [Neurontin] 300 mg PO TID #9 cap 06/17/18 [Rx] Hydrocodone/Acetaminophen [Causey 10-325] 1 tab PO Q6H PRN #12 tablet 06/17/18 [Rx] fentaNYL 100MCG/HR PATCH [Duragesic 100MCG/HR] 100 mcg TRANSDERM Q72H #1 patch 06/17/18 [Rx] Enulose 10gm/15ml 20 gm PO Q48H PRN 07/16/20 [History] Multivitamins, Thera [Multivitamin (formulary)] 1 tab PO DAILY 07/16/20 [History] Atorvastatin [Lipitor] 80 mg PO DAILY #30 tab 07/20/20 [Rx] Metoprolol Succinate (ER) [Toprol XL] 25 mg PO DAILY #30 tab.er.24h 07/20/20 [Rx] Nitroglycerin Sl Tabs [Nitrostat] 0.4 mg SUBLINGUAL Q5M PRN #30 tab 07/20/20 [Rx] Budesonide-Formot 160-4.5 Mcg [Symbicort 160-4.5 Mcg Inhaler] 2 puff INHALATION RT-BID 08/21/20 [History] Albuterol Sulfate [Proair Hfa] 2 puff INHALATION RT-QID PRN 08/29/21 [History] Naloxone [Narcan] 1 mg SQ ONCE PRN 08/29/21 [History] Tamsulosin [Flomax] 0.4 mg PO DAILY 08/29/21 [History] Terbinafine [LamISIL] 250 mg PO DAILY 08/29/21 [History] Follow up Appointment(s)/Referral(s): [facility] [NON-STAFF] - Austin Chowdary PAC [PHYSICIAN WIRE TWISTING MACHINE OPERATOR] - 3 Weeks (Patient may follow-up with Austin Chowdary PA-C or Dr. Mitul Angeles at [facility] in 2-3 weeks following discharge. ) Fidencio Barrientos MD [Primary Care Provider] - 1-2 days Ethan Jacobo MD [STAFF PHYSICIAN] - 1 Week Activity/Diet/Wound Care/Special Instructions: [facility] is assigned. Patient will need a van ride home and hospital will cover cost at d/c. Remain non-ambulator on the left lower extremity Discharge/Stand Alone Forms: Who Do I Call?, Assisted Living Facilities, Community Resources, Help In The Home, Personal Applications Analyst
--- NOTE | 2021-09-05 12:29 | P.PN ---
Subjective Progress Note Date: 09/05/21 71-year-old white male patient with known history of COPD, hypertension, diabetes mellitus type 2, history of left [id number] amputation in 2009 for nonhealing wound related to MRSA infection, osteoarthritis, peripheral vascular disease with previous intervention of the left leg, who presented to the ER 08/29/2021 by EMS for evaluation of altered mental status. Patient was found down with unknown downtime. He was found was significant amount of fentanyl patches on, unresponsive, and unable to provide any history. Brain CT shows no acute intracranial abnormality. Chest x-ray showed mild cardiomegaly with mild interstitial edema and developing right upper lobe infiltrate. Pelvis x-ray was obtained related to a fall with possibility of injury, showing no acute displaced fracture. Lab work showed white blood cell count of 8.3, hemoglobin of 9.3, INR is 1.0, BUN of 49, creatinine 0.98, electrolytes were unremarkable, LFTs were within normal limits, ammonia level was less than 9, CK-MB was 3.3, troponin was less than 0.012, urinalysis showed large amount of blood, trace leukocyte esterase, 6 white blood cells, no clear evidence of urinary tract infection. Urine drug screen was positive for opiates, and marijuana, serum alcohol level was less than 10. Patient was started on antibiotics, breathing treatments, he was given 2-1/2 L of fluid boluses, and his IV fluids are infusing at a rate of 130 ml. The patient is seen today 08/30/2021 in follow-up on the regular medical floor. He is currently resting in bed. More awake and alert. Oriented 3. He is still on 10 L high flow nasal cannula. 0.9 normal saline at 130 MLS per hour. Urine culture pending. White count 12.8. Hemoglobin 11.2. Sodium 141. Potassium 4.2. Bicarb 24. BUN 19. Creatinine 0.69. Continued on DuoNeb inhalations, Symbicort. NicoDerm patches in place. Remains on Zosyn. Reevaluated today on 08/31/2021, patient remains on the regular medical floor, tells me that his feeling better today, breathing easier. Patient has BiPAP at bedside, he is now on 10 L high flow nasal cannula, and O2 sats is 97%. Patient does not seem to be very compliant with BiPAP. Chest x-ray showed persistent interstitial infiltrates/edema however the findings seem to be mostly in the left lower lobe hence I am favoring pneumonia over pulmonary edema WBC count is 9.7 hemoglobin is 10.4 electrodes are normal renal profile is normal 09 01 2021, the patient remains on a medical floor. He is on 8 L of O2 nasal cannula. Pulse ox is 94%. Using the BiPAP on and off during the day. Feeling well. He is feeling less short of breath. The chest x-ray showing COPD along with a left lower lobe consolidation. The patient remains on IV Zosyn covering the patient for an aspiration pneumonia. No nausea. No vomiting. No emesis. He is a chronic smoker. He also has severe peripheral vascular disease with previous above-knee 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. No signs of any acute infection. He has overdosed on fentanyl patches. He smokes also marijuana. IV fluids are currently at 25 mL's an hour. Is tolerating his diet. No signs of any withdrawal. 09/02/2021, I'm seeing the patient for a follow-up. Doing well. No specific complaints no chest pain. No nausea or vomiting. The patient's FiO2 has been reduced down to 5 L and the patient's current pulse ox is around 95%. I dropped it down further to 4 L. The patient remains on IV Zosyn. He is communicating. No altered mentation. Remains on bronchodilators. He remains on steroids with IV Solu Medrol 60 mg every 6 hours IV. No other significant events overnight. Tolerating his diet. No aspiration. 09/03/2021, I'm seeing the patient for a follow-up. The patient is still on 4 L of oxygen by nasal cannula. Using the bronchodilators and using the steroids and the patient remains on IV Zosyn. I was hoping to wean the patient's FiO2 further. The patient does not have home oxygen. A repeat chest x-ray was done today shows some interval improvement in the aeration of the left lung base. Right lung remains essentially unchanged. The patient remains on IV Zosyn for now. The blood work from today showing a white cell count of 6 with a hemoglobin of 10.9. The sodium is at 134 with a BUN of 22 and a creatinine of 0.9. No other changes in his medication. Using incentive spirometer. Remains on IV Zosyn. Remains on IV Solu Medrol. Remains on Symbicort as maintenance and albuterol/ipratropium nebulized treatments around the clock 4 times a day. The patient is seen today 09/04/2021 in follow-up on the selective care unit. He is currently awake and alert sitting up at the bedside. Denies any worsening shortness of breath, cough or congestion. He is maintaining good O2 saturations in the 90s on 3 L/m per nasal cannula. He's been afebrile. Hemodynamically stable. Urine culture revealed no growth. Sputum culture revealed no growth. Blood glucose 118. He is continued on Symbicort and DuoNeb inhalations. Remains on antibiotics in the form of Zosyn. Currently on a prednisone taper. Lovenox for DVT prophylaxis. 09/05/2021, condition is stable on 3 L and the pulse ox is 93%. No new complaints. Still weak, awaiting transfer for rehabilitation. Maintained on Symbicort, DuoNeb nebulized treatment [id number], IV Zosyn and he was diuresed earlier and currently is on no diuretics. Objective - Vital Signs Vital signs: Vital Signs Temp 98 F 09/05/21 03:26 Pulse 68 09/05/21 11:27 Resp 18 09/05/21 03:26 BP 155/80 09/05/21 03:26 Pulse Ox 93 L 09/05/21 09:08 FiO2 40 09/01/21 00:15 Intake & Output 09/04/21 09/05/21 09/05/21 18:59 06:59 18:59 Intake Total 960 200 Output Total 800 925 Balance 160 -925 200 Intake: Oral 960 200 Output: Urine 800 925 Other: Voiding Method Indwelling Catheter Indwelling Catheter # Voids 2 # Bowel Movements 1 1 - Exam GENERAL EXAM: Alert, pleasant 71-year-old male patient, on 3 L high flow nasal cannula, comfortable in no apparent distress. HEAD: Normocephalic/atraumatic. EYES: Normal reaction of pupils, equal size. Conjunctiva pink, sclera white. NOSE: Clear with pink turbinates. THROAT: No erythema or exudates. NECK: No masses, no JVD, no thyroid enlargement, no adenopathy. CHEST: No chest wall deformity. Symmetrical expansion. LUNGS: Equal air entry with bilateral scattered wheezes and rhonchi CVS: Regular rate and rhythm, normal S1 and S2, no gallops, no murmurs, no rubs ABDOMEN: Soft, nontender. No hepatosplenomegaly, normal bowel sounds, no guarding or rigidity. EXTREMITIES: No clubbing, no edema, no cyanosis, 2+ pulses and upper and lower extremities. Left xqxdf-[id number] amputee MUSCULOSKELETAL: Muscle strength and tone normal. SPINE: No scoliosis or deformity SKIN: No rashes CENTRAL NERVOUS SYSTEM: Alert, oriented. No focal deficits, tone is normal in all 4 extremities. - Labs CBC & Chem 7: 09/04/21 08:56 09/04/21 08:56 Labs: Abnormal Lab Results - Last 24 Hours (Table) 09/04/21 09/04/21 09/04/21 Range/Units 08:56 08:56 11:31 WBC 13.5 H (3.8-10.6) k/uL Hgb 11.7 L (13.0-17.5) gm/dL MCH 23.2 L (25.0-35.0) pg MCHC 28.6 L (31.0-37.0) g/dL RDW 18.6 H (11.5-15.5) % Neutrophils # 11.9 H (1.3-7.7) k/uL Lymphocytes # 0.9 L (1.0-4.8) k/uL Sodium 136 L (137-145) mmol/L Carbon Dioxide 33 H (22-30) mmol/L BUN 28 H (9-20) mg/dL Glucose 160 H (74-99) mg/dL POC Glucose (mg/dL) 160 H (75-99) mg/dL Calcium 8.2 L (8.4-10.2) mg/dL Total Protein 5.2 L (6.3-8.2) g/dL Albumin 2.7 L (3.5-5.0) g/dL 09/04/21 09/04/21 Range/Units 16:20 19:22 WBC (3.8-10.6) k/uL Hgb (13.0-17.5) gm/dL MCH (25.0-35.0) pg MCHC (31.0-37.0) g/dL RDW (11.5-15.5) % Neutrophils # (1.3-7.7) k/uL Lymphocytes # (1.0-4.8) k/uL Sodium (137-145) mmol/L Carbon Dioxide (22-30) mmol/L BUN (9-20) mg/dL Glucose (74-99) mg/dL POC Glucose (mg/dL) 304 H 280 H (75-99) mg/dL Calcium (8.4-10.2) mg/dL Total Protein (6.3-8.2) g/dL Albumin (3.5-5.0) g/dL Microbiology - Last 24 Hours (Table) 09/03/21 15:20 Gram Stain - Preliminary Sputum Sputum Culture - Preliminary Assessment and Plan Assessment: Acute hypoxic and hypercapnic respiratory failure related to aspiration pneumonia, improved and the patient is currently on 3 L of Oxymizer by nasal cannula Suspect opiate overdose History of COPD Acute mental status change multifactorial related to toxic and metabolic encephalopathy, improved Diabetes mellitus type 2 Chronic back pain History of left ppphe-qmj-xbly amputation for nonhealing left leg wound and MRSA infection History of peripheral vascular disease with previous intervention the left leg History of coronary artery disease with stenting Plan: Clinically stable on 3 L of oxygen by nasal cannula Completing the course of Zosyn Wean down FiO2 as tolerated to maintain a saturation above 90% continue DuoNeb nebulized treatments around the clock Continue Symbicort as maintenance Incentive spirometer Limited use of narcotic medications Possible discharge to [facility] once the sugars authorization has been obtained. Pulmonary critical care service will sign off.
[2021-09-05 12:43] LABS: Glucose,Whole Blood 193 mg/dL (75-99)
[2021-09-05 14:56] VITALS: PULSE 77; RESP 19; TEMP 97.8
[2021-09-05 15:03] VITALS: BP 137/73
--- NOTE | 2021-09-05 16:01 | P.PN ---
Subjective Progress Note Date: 09/04/21 Principal diagnosis: Pneumonia, possible cellulitis Patient is a 71-year-old male with a past medical history significant for COPD diabetes mellitus hypertension left yfmue-ktz-nkkr potation presented to hospital for mental status changes and the patient was found unresponsive with unknown downtime. On today's evaluation that is 09/04/2021, the patient remains to be afebrile, the patient is breathing comfortably on 2 L nasal cannula oxygen, the patient denies chest pain, the patient did have a cough with occasional sputum no hemoptysis, the patient denies abdominal pain no diarrhea Objective - Vital Signs Vital signs: Vital Signs Temp 98.2 F 09/04/21 08:00 Pulse 84 09/04/21 08:00 Resp 19 09/04/21 08:00 BP 135/63 09/04/21 08:00 Pulse Ox 92 L 09/04/21 08:00 FiO2 40 09/01/21 00:15 Intake & Output 09/03/21 09/04/21 09/04/21 18:59 06:59 18:59 Intake Total 177 420 Output Total 1150 2400 800 Balance -973 -2400 -380 Weight 55.701 kg 56.5 kg Intake: Oral 177 420 Output: Urine 1150 2400 800 Other: Voiding Method Indwelling Catheter Indwelling Catheter Indwelling Catheter # Bowel Movements 1 0 1 - Exam GENERAL DESCRIPTION: Elderly male lying in bed, no distress. No tachypnea or accessory muscle of respiration use. LUNGS: Unlabored breathing. Decreased intensity breath sounds , no wheeze HEART: S1, S2, regular rate and rhythm. ABDOMEN: Soft, no tenderness , guarding or rigidity, no organomegaly EXTREMITIES: Right lower extremity redness has improved - Labs CBC & Chem 7: 09/04/21 08:56 09/04/21 08:56 Labs: Abnormal Lab Results - Last 24 Hours (Table) 09/03/21 09/03/21 09/03/21 Range/Units 11:38 16:51 20:07 POC Glucose (mg/dL) 298 H 224 H 182 H (75-99) mg/dL 09/04/21 Range/Units 06:29 POC Glucose (mg/dL) 118 H (75-99) mg/dL Microbiology - Last 24 Hours (Table) 09/03/21 15:20 Sputum Culture - Preliminary Sputum Assessment and Plan (1) Pneumonia Current Visit: Yes Status: Acute Code(s): J18.9 - PNEUMONIA, UNSPECIFIED OR GANISM SNOMED Code(s): 578311680 Plan: 1patient presented to hospital with mental status changes unresponsive and respiratory failure and concern for possible aspiration pneumonitis. 2patient with right lower extremity wound likely from ruptured blister and mild cellulitis likely from gram-positive skin deanna. 3patient did have evidence of groin area cutaneous candidiasis for which the patient continue with nystatin powder to the groin twice daily. Which has shown improvement 4local wound care to the right lower extremity with dry Aquacel silver dressing change every 48 hour 5-Patient did have improvement in his respiratory status and will continue with the Zosyn while waiting for the sputum culture to be finalize to determine his discharge antibiotics Time with Patient: Less than 30
--- NOTE | 2021-09-05 16:03 | P.PN ---
Subjective Progress Note Date: 09/05/21 Principal diagnosis: Pneumonia, possible cellulitis Patient is a 71-year-old male with a past medical history significant for COPD diabetes mellitus hypertension left fzhdl-wju-kfnr potation presented to hospital for mental status changes and the patient was found unresponsive with unknown downtime. On today's evaluation that is 09/05/2021, the patient denies any fever or chills, the patient is breathing comfortably on nasal cannula oxygen, the patient denies chest pain, the patient cough is decreased intensity and less productive now, the patient denies abdominal pain no diarrhea Objective - Vital Signs Vital signs: Vital Signs Temp 98 F 09/05/21 03:26 Pulse 68 09/05/21 11:27 Resp 18 09/05/21 03:26 BP 155/80 09/05/21 03:26 Pulse Ox 93 L 09/05/21 09:08 FiO2 40 09/01/21 00:15 Intake & Output 09/04/21 09/05/21 09/05/21 18:59 06:59 18:59 Intake Total 960 200 Output Total 800 925 Balance 160 -925 200 Intake: Oral 960 200 Output: Urine 800 925 Other: Voiding Method Indwelling Catheter Indwelling Catheter # Voids 2 # Bowel Movements 1 1 - Exam GENERAL DESCRIPTION: Elderly male lying in bed, no distress. No tachypnea or accessory muscle of respiration use. LUNGS: Unlabored breathing. Decreased intensity breath sounds , no wheeze HEART: S1, S2, regular rate and rhythm. ABDOMEN: Soft, no tenderness , guarding or rigidity, no organomegaly EXTREMITIES: Right lower extremity redness has improved - Labs CBC & Chem 7: 09/04/21 08:56 09/04/21 08:56 Labs: Abnormal Lab Results - Last 24 Hours (Table) 09/04/21 09/04/21 09/04/21 Range/Units 08:56 08:56 11:31 WBC 13.5 H (3.8-10.6) k/uL Hgb 11.7 L (13.0-17.5) gm/dL MCH 23.2 L (25.0-35.0) pg MCHC 28.6 L (31.0-37.0) g/dL RDW 18.6 H (11.5-15.5) % Neutrophils # 11.9 H (1.3-7.7) k/uL Lymphocytes # 0.9 L (1.0-4.8) k/uL Sodium 136 L (137-145) mmol/L Carbon Dioxide 33 H (22-30) mmol/L BUN 28 H (9-20) mg/dL Glucose 160 H (74-99) mg/dL POC Glucose (mg/dL) 160 H (75-99) mg/dL Calcium 8.2 L (8.4-10.2) mg/dL Total Protein 5.2 L (6.3-8.2) g/dL Albumin 2.7 L (3.5-5.0) g/dL 09/04/21 09/04/21 Range/Units 16:20 19:22 WBC (3.8-10.6) k/uL Hgb (13.0-17.5) gm/dL MCH (25.0-35.0) pg MCHC (31.0-37.0) g/dL RDW (11.5-15.5) % Neutrophils # (1.3-7.7) k/uL Lymphocytes # (1.0-4.8) k/uL Sodium (137-145) mmol/L Carbon Dioxide (22-30) mmol/L BUN (9-20) mg/dL Glucose (74-99) mg/dL POC Glucose (mg/dL) 304 H 280 H (75-99) mg/dL Calcium (8.4-10.2) mg/dL Total Protein (6.3-8.2) g/dL Albumin (3.5-5.0) g/dL Microbiology - Last 24 Hours (Table) 09/03/21 15:20 Gram Stain - Preliminary Sputum Sputum Culture - Preliminary Assessment and Plan (1) Pneumonia Current Visit: Yes Status: Acute Code(s): J18.9 - PNEUMONIA, UNSPECIFIED ORGANISM SNOMED Code(s): 128717541 Plan: 1patient presented to hospital with mental status changes unresponsive and respiratory failure and concern for possible aspiration pneumonitis. 2patient with right lower extremity wound likely from ruptured blister and mild cellulitis likely from gram-positive skin deanna. 3patient did have evidence of groin area cutaneous candidiasis for which the patient continue with nystatin powder to the groin twice daily. Which has shown improvement 4local wound care to the right lower extremity with dry Aquacel silver dressing change every 48 hour 5-Patient has clinically improved blood culture negative sputum culture also for pending patient has received more than a week of IV Zosyn can be transitioned to oral Avelox 7 days on discharge discussed with the nurse practitioner for admitting team Time with Patient: Less than 30
[2021-09-05] MEDS ORDERED: traZODone HCL 50 MG TAB PO SCH (21:00)
== END 2021-09-05 16:27 | DRG 917 ==
LOC: EC 03:29 → 4SSUR 05:12 → 3SCARD 14:52
PROVIDERS: ADMIT Internal Medicine; ATTEND Internal Medicine
DX: T40.411A Poisoning by fentanyl or fentanyl analogs, accidental (unintentional), initial encounter (principal); J69.0 Pneumonitis due to inhalation of food and vomit; S72.142A Displaced intertrochanteric fracture of left femur, initial encounter for closed fracture; J96.02 Acute respiratory failure with hypercapnia; J96.01 Acute respiratory failure with hypoxia; G92.8 Other toxic encephalopathy; L03.115 Cellulitis of right lower limb; L03.116 Cellulitis of left lower limb; N39.0 Urinary tract infection, site not specified; R31.9 Hematuria, unspecified; E86.0 Dehydration; F32.A Depression, unspecified; M54.9 Dorsalgia, unspecified; G43.909 Migraine, unspecified, not intractable, without status migrainosus; G89.4 Chronic pain syndrome; E11.51 Type 2 diabetes mellitus with diabetic peripheral angiopathy without gangrene; E78.5 Hyperlipidemia, unspecified; D64.9 Anemia, unspecified; F17.210 Nicotine dependence, cigarettes, uncomplicated; I10 Essential (primary) hypertension; I25.10 Atherosclerotic heart disease of native coronary artery without angina pectoris; W19.XXXA Unspecified fall, initial encounter; Z95.820 Peripheral vascular angioplasty status with implants and grafts; Z95.5 Presence of coronary angioplasty implant and graft; I25.2 Old myocardial infarction; Z86.14 Personal history of Methicillin resistant Staphylococcus aureus infection; Z86.19 Personal history of other infectious and parasitic diseases; Z88.1 Allergy status to other antibiotic agents; Y92.009 Unspecified place in unspecified non-institutional (private) residence as the place of occurrence of the external cause; Z79.02 Long term (current) use of antithrombotics/antiplatelets; Z79.51 Long term (current) use of inhaled steroids; Z79.82 Long term (current) use of aspirin; Z79.899 Other long term (current) drug therapy; Z89.512 Acquired absence of left leg below knee; Z90.79 Acquired absence of other genital organ(s)
CPT/HCPCS: 36415; 36600; 70450; 71045; 71046; 72170; 73502; 80053; 80306; 80320; 81001; 82140; 82550; 82553; 82805; 83036; 83735; 83880; 84100; 84484; 85025; 85610; 85730; 87070; 87086; 87205; 93005; 93306; 94640; 94660; 94760; 96361; 96365; 96375; 99285

== ENCOUNTER 2022-07-12 12:49 | Inpatient (IN) | payer MEDICARE ==
[2022-07-12] MEDS ORDERED: SODIUM CHLORIDE 0.9% 500 ML 500 ML IV STA (13:16)
[2022-07-12] MEDS ORDERED: methylPREDNISolone SOD SUCCI 125 MG/2 ML VIAL IV STA (13:38)
[2022-07-12] MEDS ORDERED: IPRATROPIUM-ALBUTEROL 3 ML NEB INHALATION STA ×2 (13:38→14:32)
--- NOTE | 2022-07-12 13:38 | ED ---
SOB HPI - General Chief Complaint: Recheck/Abnormal Lab/Rx Stated Complaint: Shaking Time Seen by Provider: 07/12/22 12:53 Source: patient, EMS, old records reviewed Mode of arrival: EMS Limitations: no limitations - History of Present Illness Initial Comments: This is a 72-year-old male to the emergency department for evaluation. Patient is improved upon arrival to the ER she was severely low at home.This is an 82 male to the ER for evaluation repeat syncopal episodes last night while sleeping. Patient presents with after being found with different levels of responsiveness. Mild nausea no vomiting shaking at night while sleeping. Patient was found evidence oxygen level in the 40s when health care came to see him this morning he did uses patient's home O2 which did improve his oxygenation into the 80s and patient's doctor remain in the 80s on presentation to the ER. Patient is severely short of breath or cough or congestion but states he did not feel that with prior to last night. - Related Data Home Medications Medication Instructions Recorded Confirmed Aspirin 81 mg PO DAILY 01/14/14 08/29/21 DULoxetine HCL [Cymbalta] 60 mg PO DAILY 01/14/14 08/29/21 lisinopriL [Prinivil] 20 mg PO DAILY 01/14/14 08/29/21 Escitalopram [Lexapro] 10 mg PO DAILY 06/13/18 08/29/21 Pantoprazole Sodium [Protonix] 40 mg PO DAILY 06/13/18 08/29/21 amLODIPine [Norvasc] 5 mg PO DAILY 06/13/18 08/29/21 Enulose 10gm/15ml 20 gm PO Q48H PRN 07/16/20 08/29/21 Multivitamins, Thera [Multivitamin 1 tab PO DAILY 07/16/20 08/29/21 (formulary)] Budesonide-Formot 160-4.5 Mcg 2 puff INHALATION RT-BID 08/21/20 08/29/21 [Symbicort 160-4.5 Mcg Inhaler] Albuterol Sulfate [Proair Hfa] 2 puff INHALATION RT-QID PRN 08/29/21 08/29/21 Naloxone [Narcan] 1 mg SQ ONCE PRN 08/29/21 08/29/21 Tamsulosin [Flomax] 0.4 mg PO DAILY 08/29/21 08/29/21 Terbinafine [LamISIL] 250 mg PO DAILY 08/29/21 08/29/21 Previous Rx's Medication Instructions Recorded Atorvastatin [Lipitor] 80 mg PO DAILY #30 tab 07/20/20 Metoprolol Succinate (ER) [Toprol 25 mg PO DAILY #30 tab.er.24h 07/20/20 XL] Nitroglycerin Sl Tabs [Nitrostat] 0.4 mg SUBLINGUAL Q5M PRN #30 tab 07/20/20 ALPRAZolam [Xanax] 0.25 mg PO QID PRN 3 Days #12 tab 09/05/21 Gabapentin [Neurontin] 300 mg PO TID #9 cap 09/05/21 Gabapentin [Neurontin] 300 mg PO TID 3 Days #9 cap 09/05/21 HYDROcodone/APAP 10-325MG [[place] 1 each PO Q6HR PRN 3 Days #12 tab 09/05/21 10-325] INSULIN ASPART (NovoLOG) [NovoLOG 0 unit SQ ACHS each 09/05/21 (formulary)] Melatonin 10 mg PO HS PRN tab 09/05/21 Moxifloxacin HCl [Avelox] 400 mg PO DAILY 7 Days #7 tablet 09/05/21 Nicotine 21Mg/24Hr Patch [Habitrol] 1 patch TRANSDERM DAILY patch 09/05/21 Nystatin 100,000 Unit/gm Powd 1 applic TOPICAL BID each 09/05/21 [Mycostatin Powder] predniSONE [Deltasone] 40 mg PO DAILY tab 09/05/21 traZODone HCL [Desyrel] 50 mg PO HS tab 09/05/21 Allergies Allergy/AdvReac Type Severity Reaction Status Date / Time azithromycin [From Zithromax] Allergy Rash/Hives Verified 07/12/22 13:05 Review of Systems ROS Statement: Those systems with pertinent positive or pertinent negative responses have been documented in the HPI. ROS Other: All systems not noted in ROS Statement are negative. 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 knee wound + FOR MRSA. History of high left above-knee amputation done approximately 2009. Last Myocardial Infarction Date:: 2003 History of Any Multi-Drug Resistant Organisms: MRSA Date of last positivie culture/infection: 04/02/16 MDRO Source:: LT KNEE WOUND Past Surgical History: Heart Catheterization With Stent, Orthopedic Surgery Additional Past Surgical History / Comment(s): STENTS TO LEFT GROIN, LEFT BELOW THE KNEE AMPUTATION, unsuccessful revascularization left leg, shoulder surgery, surgical debridement of necrotic tissue left scrotal area, LT AKA 03/03/16. left testicle removed. heart stent x1 Past Anesthesia/Blood Transfusion Reactions: No Reported Reaction Date of Last Stent Placement:: 2006 Past Psychological History: Depression Smoking Status: Current every day smoker Past Alcohol Use History: None Reported Past Drug Use History: Marijuana - Past Family History Sister(s) Family Medical History: Cancer Additional Family Medical History / Comment(s): double mastectomy, still surviving Father Family Medical History: No Reported History Mother Family Medical History: No Reported History Additional Family Medical History / Comment(s): hypoglycemia General Exam Limitations: no limitations General appearance: alert, anxious, lethargic, in distress, cachectic Head exam: Present: atraumatic, normocephalic, normal inspection Eye exam: Present: normal appearance, PERRL, EOMI. Absent: scleral icterus, conjunctival injection, periorbital swelling ENT exam: Present: normal exam, mucous membranes moist Neck exam: Present: normal inspection. Absent: tenderness, meningismus, lymphadenopathy Respiratory exam: Present: respiratory distress, wheezes, chest wall tenderness, accessory muscle use, decreased breath sounds, prolonged expiratory. Absent: rales, rhonchi, stridor Cardiovascular Exam: Present: regular rate, normal rhythm, normal heart sounds. Absent: systolic murmur, diastolic murmur, rubs, gallop, clicks GI/Abdominal exam: Present: soft, normal bowel sounds. Absent: distended, tenderness, guarding, rebound, rigid Extremities exam: Present: normal inspection, full ROM, normal capillary refill. Absent: tenderness, pedal edema, joint swelling, calf tenderness Back exam: Present: normal inspection Neurological exam: Present: alert, oriented X3, CN II-XII intact Psychiatric exam: Present: normal affect, normal mood Skin exam: Present: warm, dry, intact, normal color. Absent: rash Course Vital Signs 07/12/22 07/12/22 07/12/22 12:52 13:06 13:07 Temperature 98.0 F Pulse Rate 69 Respiratory 24 Rate Blood Pressure 149/98 O2 Sat by Pulse 99 97 Oximetry 07/12/22 07/12/22 14:00 14:09 Temperature Pulse Rate 83 85 Respiratory Rate Blood Pressure O2 Sat by Pulse Oximetry - Reevaluation(s) Reevaluation #1: 07/12/22 14:49 Medical record is reviewed Reevaluation #2: 07/12/22 14:49 Patient has mild improvement here in the ER does not fill comfortable with discharge Reevaluation #3: 07/12/22 14:50 Patient informed results and questions answered Reevaluation #4: 07/12/22 14:50 Was pt. sent in by a medical professional or institution? @ -home health Did you speak to anyone other than the patient for history? @ -EMS Did you review nursing and triage notes? @ -agree Were old charts reviewed? @ -yes ED visits and admiision notes Differential Diagnosis? @ -syncope, hypoxia EKG interpreted by me (3pts min.)? @ -no X-rays interpreted by me (1pt min.)? @ -yes CT interpreted by me (1pt min.)? @ -no U/S interpreted by me (1pt. min.)? @ -no What testing was considered but not performed? (CT, X-rays, U/S, labs)? Why? @ -no What meds were considered but not given? Why? @ -no Did you discuss the management of the patient with other professionals? @ -PCP Did you reconcile home meds? @ -yes Was smoking cessation discussed for >3mins.? @ -yes Was critical care preformed (if so, how long)? @ -yes Were there social determinants of health that impacted care today? How? (Barber elessness, low income, unemployed, alcoholism, drug addiction, transportation, low edu. Level, literacy, decrease access to med. care, custodial, rehab)? @ -yes Was there de-escalation of care discussed even if they declined? (Discuss DNR or withdrawal of care, Hospice)? @ -no What co-morbidities impacted this encounter? (DM, HTN, Smoking, COPD, CAD, Cancer, CVA, Hep., AIDS, mental health diagnosis, sleep apnea, morbid obesity)? @ -copd Was patient admitted / discharged? @ -[hospital course] Undiagnosed new problem with uncertain prognosis? @ -no Drug Therapy requiring intensive monitoring for toxicity (Heparin, Nitro, Insulin, Cardizem)? @ -no Were any procedures done? @ -no Diagnosis/symptom? @ -[default] Acute, or Chronic, or Acute on Chronic? @ -no Uncomplicated (without systemic symptoms) or Complicated (systemic symptoms)? @ -no Side effects of treatment? @ -no Exacerbation, Progression, or Severe Exacerbation] @ -no Poses a threat to life or bodily function? @ -yes 07/12/22 14:50 Reevaluation #5: 07/12/22 14:50 Differential Syncope: Valvular disease, hypertrophic cardiomyopathy, pulmonary embolism, tamponade, tachycardia, bradycardia, [place], hypovolemia, hemorrhage, dissection, anemia, intracranial hemorrhage, seizure, hypoglycemia, carbon monoxide poisoning, this is not meant to be an all-inclusive list. - Consultations Consultation #1: Spoke with Dr. Barrientos will admit this patient Medical Decision Making - Medical Decision Making 72 male DF for evaluation recurrent syncopal events last night possible seizure secondary to hypoxia patient found to be significantly hypoxic here in the ER found of pneumonia severe COPD exacerbation improved with supplemental O2 [place] for antibiotics - Lab Data Result diagrams: 07/12/22 13:29 07/12/22 13:29 Lab Results 07/12/22 07/12/22 07/12/22 Range/Units 13:29 13:29 13:29 WBC 11.9 H (3.8-10.6) k/uL RBC 4.69 (4.30-5.90) m/uL Hgb 12.9 L (13.0-17.5) gm/dL Hct 40.5 (39.0-53.0) % MCV 86.3 (80.0-100.0) fL MCH 27.5 (25.0-35.0) pg MCHC 31.9 (31.0-37.0) g/dL RDW 16.0 H (11.5-15.5) % Plt Count 411 (150-450) k/uL MPV 8.5 Neutrophils % 86 % Lymphocytes % 5 % Monocytes % 5 % Eosinophils % 2 % Basophils % 0 % Neutrophils # 10.3 H (1.3-7.7) k/uL Lymphocytes # 0.6 L (1.0-4.8) k/uL Monocytes # 0.6 (0-1.0) k/uL Eosinophils # 0.2 (0-0.7) k/uL Basophils # 0.0 (0-0.2) k/uL Hypochromasia Slight Anisocytosis Slight PT 10.4 (9.0-12.0) sec INR 1.0 (<1.2) APTT 25.9 (22.0-30.0) sec Sodium 134 L (137-145) mmol/L Potassium 5.3 H (3.5-5.1) mmol/L Chloride 97 L (98-107) mmol/L Carbon Dioxide 31 H (22-30) mmol/L Anion Gap 6 mmol/L BUN 37 H (9-20) mg/dL Creatinine 0.87 (0.66-1.25) mg/dL Est GFR (CKD-EPI)AfAm >90 (>60 ml/min/1.73 sqM) Est GFR (CKD-EPI)NonAf 85 (>60 ml/min/1.73 sqM) Glucose 107 H (74-99) mg/dL Calcium 9.1 (8.4-10.2) mg/dL Phosphorus 4.1 (2.5-4.5) mg/dL Magnesium 1.9 (1.6-2.3) mg/dL Total Bilirubin 0.4 (0.2-1.3) mg/dL AST 28 (17-59) U/L ALT 23 (4-49) U/L Alkaline Phosphatase 90 (38-126) U/L Troponin I (0.000-0.034) ng/mL NT-Pro-B Natriuret Pep pg/mL Total Protein 6.5 (6.3-8.2) g/dL Albumin 3.7 (3.5-5.0) g/dL 07/12/22 07/12/22 Range/Units 13:29 13:29 WBC (3.8-10.6) k/uL RBC (4.30-5.90) m/uL Hgb (13.0-17.5) gm/dL Hct (39.0-53.0) % MCV (80.0-100.0) fL MCH (25.0-35.0) pg MCHC (31.0-37.0) g/dL RDW (11.5-15.5) % Plt Count (150-450) k/uL MPV Neutrophils % % Lymphocytes % % Monocytes % % Eosinophils % % Basophils % % Neutrophils # (1.3-7.7) k/uL Lymphocytes # (1.0-4.8) k/uL Monocytes # (0-1.0) k/uL Eosinophils # (0-0.7) k/uL Basophils # (0-0.2) k/uL Hypochromasia Anisocytosis PT (9.0-12.0) sec INR (<1.2) APTT (22.0-30.0) sec Sodium (137-145) mmol/L Potassium (3.5-5.1) mmol/L Chloride (98-107) mmol/L Carbon Dioxide (22-30) mmol/L Anion Gap mmol/L BUN (9-20) mg/dL Creatinine (0.66-1.25) mg/dL Est GFR (CKD-EPI)AfAm (>60 ml/min/1.73 sqM) Est GFR (CKD-EPI)NonAf (>60 ml/min/1.73 sqM) Glucose (74-99) mg/dL Calcium (8.4-10.2) mg/dL Phosphorus (2.5-4.5) mg/dL Magnesium (1.6-2.3) mg/dL Total Bilirubin (0.2-1.3) mg/dL AST (17-59) U/L ALT (4-49) U/L Alkaline Phosphatase (38-126) U/L Troponin I <0.012 (0.000-0.034) ng/mL NT-Pro-B Natriuret Pep 1160 pg/mL Total Protein (6.3-8.2) g/dL Albumin (3.5-5.0) g/dL - Radiology Data Radiology results: report reviewed (Chest x-ray is positive for pneumonia), image reviewed Critical Care Time Critical Care Time: Yes Total Critical Care Time: 31 Disposition Clinical Impression: Weakness, COPD (chronic obstructive pulmonary disease), Hypoxia, Syncope, Community acquired pneumonia Disposition: ADMITTED IP TO THIS HOSP Condition: Fair Is patient prescribed a controlled substance at d/c from ED?: No Referrals: Fidencio Barrientos MD [Primary Care Provider] - 1-2 days Time of Disposition: 14:45
[2022-07-12 13:39] LABS: Anisocytosis Slight; Basophils % (A) 0 %; Eosinophils # (A) 0.2 k/uL (0-0.7); Eosinophils % (A) 2 %; HCT 40.5 % (39.0-53.0); HGB 12.9 gm/dL (13.0-17.5); Hypochromasia Slight; Lymphocytes # (A) 0.6 k/uL (1.0-4.8); Lymphocytes % (A) 5 %; MCH 27.5 pg (25.0-35.0); MCHC 31.9 g/dL (31.0-37.0); MCV 86.3 fL (80.0-100.0); Mean Platelet Volume 8.5; Monocytes # (A) 0.6 k/uL (0-1.0); Monocytes % (A) 5 %; Neutrophils # (A) 10.3 k/uL (1.3-7.7); Neutrophils % (A) 86 %; Platelet Count 411 k/uL (150-450); RBC 4.69 m/uL (4.30-5.90); WBC 11.9 k/uL (3.8-10.6)
[2022-07-12 13:48] LABS: Partial Thromboplastin Time 25.9 sec (22.0-30.0); Prothrombin Time 10.4 sec (9.0-12.0)
[2022-07-12 13:55] LABS: ALT 23 U/L (4-49); AST 28 U/L (17-59); African American GFR (CKD) >90 (>60 ml/min/1.73 sqM); Albumin 3.7 g/dL (3.5-5.0); Alkaline Phosphatase 90 U/L (38-126); Anion Gap 6 mmol/L; Blood Urea Nitrogen 37 mg/dL (9-20); Calcium 9.1 mg/dL (8.4-10.2); Carbon Dioxide 31 mmol/L (22-30); Chloride 97 mmol/L (98-107); Glucose 107 mg/dL (74-99); Magnesium 1.9 mg/dL (1.6-2.3); Non-African American GFR(CKD) 85 (>60 ml/min/1.73 sqM); Phosphorus 4.1 mg/dL (2.5-4.5); Potassium 5.3 mmol/L (3.5-5.1); Sodium 134 mmol/L (137-145); Total Bilirubin 0.4 mg/dL (0.2-1.3); Total Protein 6.5 g/dL (6.3-8.2)
--- NOTE | 2022-07-12 14:05 | XR ---
EXAMINATION TYPE: XR chest 1V portable DATE OF EXAM: 07/12/2022 COMPARISON: Chest x-ray September 03, 2021 and older studies HISTORY: Shortness of breath TECHNIQUE: Single frontal view of the chest is obtained. FINDINGS: There is chronic parenchymal change with left basilar opacity. The cardiac silhouette siz e is stable and upper limits of normal. The osseous structures remain demineralized. Degenerative c hange bilateral glenohumeral joints. IMPRESSION: Chronic parenchymal changes with left basilar acute infiltrate and/or atelectasis now pr esent.
[2022-07-12] MEDS ORDERED: ONDANSETRON 4 MG/2 ML VIAL IVP PRN (14:32)
[2022-07-12] MEDS ORDERED: NALOXONE 0.4 MG/ML 1 ML VIAL IV PRN (14:32)
[2022-07-12] MEDS: SODIUM CHLORIDE 0.9% 1,000 ML IV SCH (15:23)
[2022-07-12] MEDS: ALBUTEROL NEBULIZED 2.5 MG/3 ML INHALATION SCH ×2 (15:38→20:03)
[2022-07-12 15:53] LABS: Appearance,Urine Clear (Clear); Bilirubin,Urine Negative (Negative); Blood,Urine Trace (Negative); Color,Urine Light Yellow; Glucose,Urine (UA) Negative (Negative); Ketones,Urine Negative (Negative); Leukocyte Esterase,Urine Negative (Negative); Mucus,Urine Rare /hpf; Nitrite,Urine Negative (Negative); Protein,Urine Negative (Negative); RBC,Urine 1 /hpf (0-5); Specific Gravity,Urine 1.008 (1.001-1.035); Squamous Epithelial Cell,Urine <1 /hpf (0-4); Urobilinogen,Urine <2.0 mg/dL (<2.0); WBC,Urine 1 /hpf (0-5)
[2022-07-12] MEDS: methylPREDNISolone SOD SUCCI 125 MG/2 ML VIAL IV SCH ×2 (17:59→23:23)
[2022-07-12] MEDS ORDERED: ALBUTEROL NEBULIZED 2.5 MG/3 ML INHALATION SCH (18:00)
[2022-07-12] MEDS ORDERED: BACLOFEN 10 MG TAB PO PRN (19:45)
[2022-07-12] MEDS ORDERED: DEXTROSE 50% SYRINGE 50 ML IVP PRN ×2 (19:48)
[2022-07-12] MEDS: MORPHINE SULFATE 4 MG/ML SYRINGE IV PRN (20:21)
[2022-07-12] MEDS: GABAPENTIN 400 MG CAP PO SCH (20:23)
[2022-07-12] MEDS: traZODone HCL 50 MG TAB PO SCH (20:23)
[2022-07-12 20:31] LABS: Glucose,Whole Blood 299 mg/dL (70-110)
[2022-07-12] MEDS ORDERED: ALBUTEROL NEBULIZED 2.5 MG/3 ML INHALATION PRN (21:10)
[2022-07-12] MEDS: INSULIN ASPART (NovoLOG) 100 UNIT/ML VIAL SQ SCH (21:54)
[2022-07-12] MEDS: PRIMIDONE 50 MG TAB PO SCH (21:54)
[2022-07-13] MEDS ORDERED: PNEUMONIA PROTOCOL UTILIZED 1 EACH MISC PO PRN (01:52)
[2022-07-13] MEDS ORDERED: LEVOFLOXACIN 750MG-D5W PMX 750 MG in DEXTROSE/WATER 1 150ML.BAG IVPB ONE (02:00)
--- NOTE | 2022-07-13 02:10 | P.CNPUL ---
History of Present Illness Consult date: 07/13/22 Requesting physician: Fidencio Barrientos Reason for consult: dyspnea, COPD Chief complaint: Altered mental status, hypoxia History of present illness: I'm seeing this patient in new consultation today 07/12/2022 on the general medical floor. This is a 72-year-old white male with past medical history of COPD, diabetes mellitus2, li gangrene, peripheral vascular disease, left AKA, hypertension, hyperlipidemia, CAD, previous PA and stent to the LAD, peripheral vascular disease, current every day smoker with Vape pen. 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 He manages his COPD with a combination of albuterol and Symbicort inhalers. His primary care provider is Dr. Barrientos. Patient is a poor historian. Patient presented earlier today for reports of altered mental status, a questionable syncopal episode, and hypoxia. He doesn't remember much of what happened last night. Apparently, patient has a home pulse oximeter, and reports oxygen levels of 40% on room air. Patient does not have home O2 prescribed to him, however, patient's does have home O2. He was able to get his oxygen saturation up to 89% on 4 L nasal cannula. He does report feeling feverish and having chills the last couple days. Patient denies any shortness breath, cough, chest pain, hemoptysis. Denies sick contacts. Patient is currently sitting up in bed, on 2 L nasal cannula, in no acute distress. Patient's chest x-ray on arrival showed an acute left basilar opacity. CBC on arrival showed some mild leukocytosis with a WBC count of 12, hemoglobin 12.9, hematocrit 40.5, platelets 411,000. Patient's BMP shows sodium 134, potassium 5.3, chloride 97, serum CO2 31, BUN 37, creatinine 0.7, glucose 107. Troponin negative 1. ProBNP 1160. negative for COVID-19. Vital signs are stable. Review of Systems REVIEW OF SYSTEMS: CONSTITUTIONAL: Denies any recent significant weight loss or weight gain. EYES: Denies change in vision. EARS, NOSE, MOUTH, THROAT: Denies headaches, denies sore throat. CARDIOVASCULAR: Denies chest pain, palpitations. RESPIRATORY: See HPI GASTROINTESTINAL: Denies change in appetite, abdominal pain, nausea and vomiting, or diarrhea GENITOURINARY: Denies hematuria, denies infections. MUSKULOSKELETAL: Denies pain, denies swelling. INTEGUMENTARY: Denies rash, denies eczema. NEUROLOGICAL: Denies recent memory loss, no recent seizure activity. PSYCHIATRIC: Denies anxiety, denies depression. 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 knee wound + FOR MRSA. Hi story of high left above-knee amputation done approximately 2009. Last Myocardial Infarction Date:: 2003 History of Any Multi-Drug Resistant Organisms: MRSA Date of last positivie culture/infection: 04/02/16 MDRO Source:: LT KNEE WOUND Past Surgical History: Heart Catheterization With Stent, Orthopedic Surgery Additional Past Surgical History / Comment(s): STENTS TO LEFT GROIN, LEFT BELOW THE KNEE AMPUTATION, unsuccessful revascularization left leg, shoulder surgery, surgical debridement of necrotic tissue left scrotal area, LT AKA 03/03/16. left testicle removed. heart stent x1 broken left hip Past Anesthesia/Blood Transfusion Reactions: No Reported Reaction Date of Last Stent Placement:: 2006 Past Psychological History: Depression Additional Psychological History / Comment(s): . Smoking Status: Current every day smoker Past Alcohol Use History: None Reported Additional Past Alcohol Use History / Comment(s): Patient is a smoker one and a half packs of cigarettes per day for 52 years. He smokes marijuana on a daily basis and has done so for many decades. He denies any alcohol use. He lives at home with his and there is one dog and 3 cats in the home. 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 He denies any service. use a viper daily Past Drug Use History: Marijuana Additional Drug Use History / Comment(s): medical marijuana card-uses daily- INSTRUCTED TO REFRAIN FROM USE AT LEAST 24 HRS PRIOR TO PROCEDURE - Past Family History Sister(s) Family Medical History: Cancer Additional Family Medical History / Comment(s): double mastectomy, still surviving Father Family Medical History: No Reported History Mother Family Medical History: No Reported History Additional Family Medical History / Comment(s): hypoglycemia Medications and Allergies Home Medications Medication Instructions Recorded Confirmed Type Aspirin 81 mg PO DAILY 01/14/14 07/12/22 History DULoxetine HCL [Cymbalta] 60 mg PO DAILY 01/14/14 07/12/22 History lisinopriL [Prinivil] 20 mg PO DAILY 01/14/14 07/12/22 History Escitalopram [Lexapro] 10 mg PO DAILY 06/13/18 07/12/22 History Pantoprazole Sodium [Protonix] 40 mg PO DAILY 06/13/18 07/12/22 History amLODIPine [Norvasc] 5 mg PO DAILY 06/13/18 07/12/22 History Atorvastatin [Lipitor] 80 mg PO DAILY #30 tab 07/20/20 07/12/22 Rx Metoprolol Succinate (ER) [Toprol 25 mg PO DAILY #30 tab.er.24h 07/20/20 07/12/22 Rx XL] Nitroglycerin Sl Tabs [Nitrostat] 0.4 mg SUBLINGUAL Q5M PRN #30 tab 07/20/20 07/12/22 Rx Budesonide-Formot 160-4.5 Mcg 2 puff INHALATION RT-BID 08/21/20 07/12/22 History [Symbicort 160-4.5 Mcg Inhaler] Albuterol Sulfate [Proair Hfa] 2 puff INHALATION RT-QID PRN 08/29/21 07/12/22 History Naloxone [Narcan] 1 mg SQ ONCE PRN 08/29/21 07/12/22 History Tamsulosin [Flomax] 0.4 mg PO DAILY 08/29/21 07/12/22 History traZODone HCL [Desyrel] 50 mg PO HS tab 09/05/21 07/12/22 Rx Baclofen [Lioresal] 10 mg PO DAILY PRN 07/12/22 07/12/22 History Gabapentin [Neurontin] 400 mg PO DAILY 07/12/22 07/12/22 History Gabapentin [Neurontin] 800 mg PO HS 07/12/22 07/12/22 History HYDROcodone/APAP 10-325MG [[place] 1 tab PO Q6HR PRN 07/12/22 07/12/22 History 10-325] Primidone [Mysoline] 25 mg PO HS 07/12/22 07/12/22 History Allergies Allergy/AdvReac Type Severity Reaction Status Date / Time azithromycin [From Zithromax] Allergy Rash/Hives Verified 07/12/22 15:15 Physical Exam Vitals: Vital Signs Temp Pulse Pulse Resp BP BP Pulse Ox 07/12/22 20:13 95 07/12/22 20:12 90 18 07/12/22 20:03 91 18 07/12/22 20:01 98.7 F 91 15 149/71 92 L 07/12/22 18:01 99.4 F 70 20 132/67 94 L 07/12/22 17:18 68 22 136/89 97 07/12/22 15:38 85 07/12/22 15:27 82 07/12/22 14:09 85 07/12/22 14:00 83 07/12/22 13:07 97 07/12/22 13:06 149/98 07/12/22 12:52 98.0 F 69 24 99 Intake and Output 07/12/22 07/12/22 07/13/22 14:59 22:59 06:59 Intake Total 60 Output Total 200 Balance -140 Intake: Oral 60 Output: Urine 200 Other: # Voids 1 Weight 54.431 kg 54.431 kg GENERAL EXAM: Alert, disheveled 72-year-old white male, comfortable in no apparent distress. HEAD: Normocephalic and atraumatic EYES: Normal reaction of pupils, equal size. NOSE: Clear with pink turbinates. THROAT: No erythema or exudates. NECK: No masses, no JVD. CHEST: No chest wall deformity. LUNGS: Equal air entry with scattered rhonchi and expiratory wheezes throughout. no crackles. On 2 L nasal cannula. No conversational dyspnea or accessory muscle use.. CVS: S1 and S2 normal with no audible murmur, regular rhythm. No extra heart so unds ABDOMEN: No hepatosplenomegaly, active bowel sounds, no guarding or rigidity. SPINE: No scoliosis or deformity SKIN: No rashes CENTRAL NERVOUS SYSTEM: No focal deficits, tone is normal in all 4 extremities. EXTREMITIES: Left [id number] amputation. There is no peripheral edema, clubbing, or cyanosis. Peripheral pulses are intact. Results - Laboratory Findings CBC and BMP: 07/12/22 13:29 07/12/22 13:29 PT/INR, D-dimer PT 10.4 sec (9.0-12.0) 07/12/22 13:29 INR 1.0 (<1.2) 07/12/22 13:29 Abnormal lab findings: Abnormal Labs 07/12/22 07/12/22 07/12/22 13:29 13:29 15:24 WBC 11.9 H Hgb 12.9 L RDW 16.0 H Neutrophils # 10.3 H Lymphocytes # 0.6 L Sodium 134 L Potassium 5.3 H Chloride 97 L Carbon Dioxide 31 H BUN 37 H Glucose 107 H POC Glucose (mg/dL) Urine Blood Trace H Urine Mucus Rare H 07/12/22 20:30 WBC Hgb RDW Neutrophils # Lymphocytes # Sodium Potassium Chloride Carbon Dioxide BUN Glucose POC Glucose (mg/dL) 299 H Urine Blood Urine Mucus - Diagnostic Findings Chest x-ray: image reviewed Assessment and Plan Assessment: Presumptive community-acquired left lower lobe pneumonia Hypoxemic respiratory failure secondary to above. currently on 2 L nasal cannula Acute COPD exacerbation Diabetes mellitus type 2 Hypertension Coronary artery disease with previous myocardial infarction Peripheral vascular disease Current every day smoker History left AKA Plan: Patient's medications, labs, chest x-ray reviewed Start antibiotic for presumptive community-acquired pneumonia. Patient is ALLERGIC to azithromycin Check pro-calcitonin level Obtain blood and sputum cultures Continue supplemental oxygen to maintain oxygen saturation 92% or greater Continue Solu-Medrol Start the patient on budesonide and formoterol inhalations Continue bronchodilators Repeat chest x-ray in the morning Smoking cessation education performed Nicotine replacement therapy offered We will continue to follow I have personally seen and examined the patient, performed the documentation and the assessment and plan as written. Number of minutes spent on the visit:20 Time with Patient: Greater than 30
[2022-07-13] MEDS: methylPREDNISolone SOD SUCCI 125 MG/2 ML VIAL IV SCH ×4 (05:30→23:14)
[2022-07-13] MEDS: SODIUM CHLORIDE 0.9% 1,000 ML IV SCH ×4 (05:30→16:42)
[2022-07-13] MEDS: MORPHINE SULFATE 4 MG/ML SYRINGE IV PRN (06:49)
[2022-07-13 07:22] LABS: Glucose,Whole Blood 189 mg/dL (70-110)
[2022-07-13 08:49] LABS: Basophils # (A) 0.01 X 10*3/uL (0.00-0.10); Basophils % (A) 0.1 %; Eosinophils # (A) 0 X 10*3/uL (0.04-0.35); Eosinophils % (A) 0 %; HCT 39.9 % (39.6-50.0); HGB 12.1 g/dL (13.0-17.0); Immature Grans, Automated 0.4 %; Lymphocytes # (A) 0.29 X 10*3/uL (0.90-5.00); Lymphocytes % (A) 2.6 %; MCH 26.5 pg (27.0-32.0); MCHC 30.3 g/dL (32.0-37.0); MCV 87.3 fL (80.0-97.0); Mean Platelet Volume 10.6 fL (9.5-12.2); Monocytes # (A) 0.23 X 10*3/uL (0.20-1.00); Monocytes % (A) 2.1 %; NRBC Per 100 WBC 0 /100 WBCS (0.0-0.0); Neutrophils % (A) 94.8 %; Platelet Count 421 X 10*3/uL (140-440); RBC 4.57 X 10*6/uL (4.40-5.60); WBC 11.17 X 10*3/uL (4.50-10.00)
[2022-07-13] MEDS: DULoxetine HCL 60 MG CAPSULE.DR PO SCH (08:56)
[2022-07-13] MEDS: TAMSULOSIN 0.4 MG CAP.ER.24H PO SCH (08:56)
[2022-07-13] MEDS: ATORVASTATIN 80 MG TAB PO SCH (08:56)
[2022-07-13] MEDS: ASPIRIN 81 MG PO SCH (08:56)
[2022-07-13] MEDS: amLODIPine 5 MG TAB PO SCH (08:56)
[2022-07-13] MEDS: PANTOPRAZOLE 40 MG TABLET PO SCH (08:56)
[2022-07-13] MEDS: NICOTINE 21MG/24HR PATCH TRANSDERM SCH ×2 (08:56→09:00)
[2022-07-13] MEDS: lisinopriL 20 MG TAB PO SCH (08:56)
[2022-07-13] MEDS: GABAPENTIN 400 MG CAP PO SCH ×2 (08:56→20:31)
[2022-07-13] MEDS: ESCITALOPRAM 10 MG TAB PO SCH (08:57)
[2022-07-13] MEDS: METOPROLOL SUCCINATE (ER) 25 MG TAB.ER.24H PO SCH (08:57)
[2022-07-13] MEDS: INSULIN ASPART (NovoLOG) 100 UNIT/ML VIAL SQ SCH ×4 (08:57→20:32)
--- NOTE | 2022-07-13 09:14 | XR ---
EXAMINATION TYPE: XR chest 1V portable DATE OF EXAM: 07/13/2022 COMPARISON: 07/12/2022 HISTORY: Shortness of breath TECHNIQUE: Single frontal view of the chest is obtained. FINDINGS: There is chronic parenchymal change with left basilar opacity. The cardiac silhouette size is stable and upper limits of normal. The osseous structures remain demineralized. Degenerative [place] bilateral glenohumeral joints. Pulmonary arteries aren't enlarged. Vague 1 cm nodule right upper l obe. IMPRESSION: 1. COPD with the chronic interstitial pulmonary fibrosis suspected. Left lower lobe atelectasis versu s pneumonia correlate clinically. Correlate for pulmonary arterial hypertension. 2. 1 cm vague right upper lobe nodule recommend CT chest.
[2022-07-13 09:30] LABS: African American GFR (CKD) 97.2 (60.0-200.0); Albumin 3.8 g/dL (3.8-4.9); Albumin/Globulin Ratio 1.52 (1.60-3.17); Anion Gap 8.6 mmol/L (10.00-18.00); BUN/Creat Ratio 30.67 Ratio (12.00-20.00); Blood Urea Nitrogen 27.6 mg/dL (9.0-27.0); Calcium 9.1 mg/dL (8.7-10.3); Carbon Dioxide 26.4 mmol/L (20.0-27.5); Globulin 2.5 g/dL (1.6-3.3); Non-African American GFR(CKD) 83.8 (60.0-200.0); Potassium 4.7 mmol/L (3.5-5.5); Total Bilirubin 0.3 mg/dL (0.30-1.20); Total Protein 6.3 g/dL (6.2-8.2)
[2022-07-13] MEDS: FORMOTEROL FUMARATE 20 MCG/2 ML NEBU INHALATION SCH ×2 (09:31→20:52)
[2022-07-13] MEDS: ALBUTEROL NEBULIZED 2.5 MG/3 ML INHALATION SCH ×4 (09:31→20:52)
[2022-07-13] MEDS: BUDESONIDE 1 MG/2 ML NEBU INHALATION SCH ×2 (09:31→20:53)
[2022-07-13] MEDS ORDERED: NITROGLYCERIN SL TABS 0.4 MG TAB SUBLINGUAL PRN (10:59)
[2022-07-13 11:28] LABS: Glucose,Whole Blood 134 mg/dL (70-110)
[2022-07-13] MEDS: HYDROcodone/APAP 10-325MG 1 EACH TAB PO PRN ×2 (12:29→23:13)
[2022-07-13] MEDS ORDERED: RX INFO: IV CONTRAST WAS GIVEN 1 EACH MISC MISCELLANE PRN (12:56)
[2022-07-13 13:59] VITALS: BMI 15.0
--- NOTE | 2022-07-13 13:59 | HP ---
HISTORY AND PHYSICAL CHIEF COMPLAINTS: Shortness of breath. HISTORY OF PRESENT ILLNESS: This is a 72-year-old gentleman with a past medical history of multiple medical problems including COPD, being followed by Dr. Barrientos, was admitted with shortness of breath and acute exacerbation. The patient was thought to have community- acquired left lower lobe pneumonia. The patient will be seen by Pulmonary and the patient was closely monitored. There is no history of any fever, rigors, or chills at this time. PAST MEDICAL HISTORY: Reviewed include COPD, rest of the history and rest of the chart is also reviewed. HOME MEDICATIONS: Reviewed include , dose and rest of the medications noted. ALLERGIES: Zithromax. FAMILY HISTORY: History of mastectomy and cancer. SOCIAL HISTORY: Current smoking. REVIEW OF SYSTEMS: A 14-point review is negative except as mentioned earlier. PHYSICAL EXAMINATION: VITAL SIGNS: Pulse is 79, blood pressure 183/93, respirations 18. HEENT: Conjunctivae normal. NECK: No jugular venous distention. CARDIOVASCULAR: S1, S2 muffled. RESPIRATION: Bilateral scattered rhonchi. No crackles. Expiratory wheezing and rhonchi present. ABDOMEN: Soft, nontender. LEGS: No edema, no swelling. NERVOUS SYSTEM: No focal deficits. LABORATORY DATA: Reviewed. ASSESSMENT: 1. Chronic obstructive pulmonary disease acute exacerbation. 2. Left lower lobe pneumonia. 3. Diabetes mellitus, type 2. 4. Hypertension. 5. Multiple medical issues. RECOMMENDATIONS: This 72-year-old gentleman presented with multiple complex medical issues, we will monitor the patient closely. I would recommend to continue the bronchodilators, empiric antibiotics. Closely follow with Pulmonary. Resume the home medications. Prognosis guarded because of multiple complex medical issues. Further recommendations to follow. MMODL / IJN: [id number] / MTDD
[2022-07-13 17:22] LABS: Glucose,Whole Blood 554 mg/dL (70-110)
[2022-07-13] MEDS ORDERED: INSULIN ASPART (NovoLOG) 100 UNIT/ML VIAL SQ ONE (17:34)
--- NOTE | 2022-07-13 18:56 | CT ---
EXAMINATION TYPE: CT chest w con DATE OF EXAM: 07/13/2022 COMPARISON: 07/16/2020 HISTORY: 72-year-old male right upper lobe nodule, left lower lobe atelectasis TECHNIQUE: Contiguous axial scanning of the chest after the administration of 100 mL of Isovue 300. Coronal/sagittal reconstructions performed. CT DLP: 293.8mGycm. Automatic exposure control utilized for a dose reduction. FINDINGS: Heart normal size without pericardial effusion. LAD and RCA coronary calcifications are present. Moderate atherosclerotic arch calcifications with conventional vessel branching anatomy. Borderline to mildly enlarged caliber to the main right and left pulmonary arteries measuring up to 2 .6 cm suggesting underlying pulmonary artery hypertension. Lower paratracheal nodes measure up to 1.2 cm on the right and 1.4 cm on the left. This appears to be unchanged from prior exam suggesting a chronic reactive/post inflammatory etiology. Redemonstrated and centrilobular emphysema with scattered areas of pleuroparenchymal scarring. There is a new focal 1.7 cm opacity abutting the major fissure of the right midlung, axial image 40. Early lung cancer should be excluded. There is also bibasilar tree-in-bud opacities and more confluent basilar airspace disease at the left lower lobe. No pleural effusion. Visualized upper abdomen shows a tiny hiatal hernia. Severe endplate fracture of T12 was present on the 07/16/2020 exam. Focal levoconvex scoliosis near the thoracolumbar junction is unchanged. No osseous destructive process. IMPRESSION: 1. COPD with advanced emphysema and pulmonary arterial hypertension. Scattered areas of pleural paren chymal scarring remain. 2. New/increased bibasilar tree-in-bud opacity and new confluent airspace disease basilar left lower lobe. Correlate for infectious or aspiration pneumonitis. 3. A new 1.7 cm nodular opacity at the right mid lung. Recommend either short interval follow-up CT v ersus PET/CT after treatment of the patient's acute presentation to exclude early lung cancer.
[2022-07-13 20:23] LABS: Glucose,Whole Blood 273 mg/dL (70-110)
[2022-07-13] MEDS: PRIMIDONE 50 MG TAB PO SCH (20:31)
[2022-07-13] MEDS: traZODone HCL 50 MG TAB PO SCH (20:31)
[2022-07-13] MEDS ORDERED: INSULIN DETEMIR (LEVEMIR) 100 UNIT/ML SYR SQ SCH (21:00)
[2022-07-14] MEDS ORDERED: LEVOFLOXACIN 750 MG TAB PO SCH (02:00)
[2022-07-14] MEDS: methylPREDNISolone SOD SUCCI 125 MG/2 ML VIAL IV SCH ×2 (05:39→13:27)
[2022-07-14 07:18] LABS: Glucose,Whole Blood 208 mg/dL (70-110)
[2022-07-14] MEDS: INSULIN ASPART (NovoLOG) 100 UNIT/ML VIAL SQ SCH ×4 (08:57→13:27)
[2022-07-14] MEDS: HYDROcodone/APAP 10-325MG 1 EACH TAB PO PRN ×2 (08:57→14:55)
[2022-07-14] MEDS: SODIUM CHLORIDE 0.9% 1,000 ML IV SCH ×2 (08:58→13:28)
[2022-07-14] MEDS: ALBUTEROL NEBULIZED 2.5 MG/3 ML INHALATION SCH ×2 (09:50→12:39)
[2022-07-14] MEDS: BUDESONIDE 1 MG/2 ML NEBU INHALATION SCH (09:50)
[2022-07-14] MEDS: FORMOTEROL FUMARATE 20 MCG/2 ML NEBU INHALATION SCH (09:50)
[2022-07-14 11:07] LABS: Basophils # (A) 0.01 X 10*3/uL (0.00-0.10); Basophils % (A) 0.1 %; Eosinophils # (A) 0 X 10*3/uL (0.04-0.35); Eosinophils % (A) 0 %; HCT 35.2 % (39.6-50.0); HGB 10.9 g/dL (13.0-17.0); Immature Grans, Automated 0.3 %; Lymphocytes # (A) 0.33 X 10*3/uL (0.90-5.00); Lymphocytes % (A) 3.5 %; MCH 26.5 pg (27.0-32.0); MCV 85.4 fL (80.0-97.0); Mean Platelet Volume 10.4 fL (9.5-12.2); Monocytes # (A) 0.46 X 10*3/uL (0.20-1.00); Monocytes % (A) 4.8 %; NRBC Per 100 WBC 0 /100 WBCS (0.0-0.0); Neutrophils # (A) 8.71 X 10*3/uL (1.80-7.70); Neutrophils % (A) 91.3 %; Platelet Count 353 X 10*3/uL (140-440); RBC 4.12 X 10*6/uL (4.40-5.60); RDW 16.3 % (11.5-14.5); WBC 9.54 X 10*3/uL (4.50-10.00)
[2022-07-14 11:19] LABS: African American GFR (CKD) 103.2 (60.0-200.0); Anion Gap 7.2 mmol/L (10.00-18.00); BUN/Creat Ratio 30.85 Ratio (12.00-20.00); Carbon Dioxide 27.6 mmol/L (20.0-27.5); Potassium 4.8 mmol/L (3.5-5.5)
[2022-07-14 11:20] LABS: Glucose,Whole Blood 71 mg/dL (70-110)
--- NOTE | 2022-07-14 12:05 | P.PN ---
Subjective Progress Note Date: 07/14/22 I'm seeing this patient in new consultation today 07/12/2022 on the general medical floor. This is a 72-year-old white male with past medical history of COPD, diabetes mellitus2, il gangrene, peripheral vascular disease, left AKA, hypertension, hyperlipidemia, CAD, previous UT and stent to the LAD, peripheral vascular disease, current every day smoker with Vape pen. He does not see a engraver letter. He manages his COPD with a combination of albuterol and Symbicort inhalers. His primary care provider is Dr. Barrientos. Patient is a poor historian. Patient presented earlier today for reports of altered mental status, a questionable syncopal episode, and hypoxia. He doesn't remember much of what happened last night. Apparently, patient has a home pulse oximeter, and reports oxygen levels of 40% on room air. Patient does not have home O2 prescribed to him, however, patient's does have home O2. He was able to get his oxygen saturation up to 89% on 4 L nasal cannula. He does report f eeling feverish and having chills the last couple days. Patient denies any shortness breath, cough, chest pain, hemoptysis. Denies sick contacts. Patient is currently sitting up in bed, on 2 L nasal cannula, in no acute distress. Patient's chest x-ray on arrival showed an acute left basilar opacity. CBC on arrival showed some mild leukocytosis with a WBC count of 12, hemoglobin 12.9, hematocrit 40.5, platelets 411,000. Patient's BMP shows sodium 134, potassium 5.3, chloride 97, serum CO2 31, BUN 37, creatinine 0.7, glucose 107. Troponin negative 1. ProBNP 1160. negative for COVID-19. Vital signs are stable. The patient is seen today 07/14/2022 in follow-up on the regular medical floor. He is sitting up at the bedside. Awake and alert in no acute distress. Maintaining O2 saturations in the mid 90s on 4 L/m per nasal cannula. CT scan of the chest showed significant advanced emphysema and pulmonary arterial hypertension. Scattered areas of pleural parenchymal scarring. New/increased bibasilar tree and bud opacity in new confluent airspace disease basilar left lower lobe. Suspicious for aspiration pneumonitis versus infection. There is a new 1.7 cm nodular opacity of the right midlung. Blood culture reveals no growth. White count 9.5. Hemoglobin 10.9. Platelets 353. Sodium 138. Potassium 4.8. Bicarb 27. BUN 24. Creatinine 0.8. Glucose 192. He is continued on albuterol inhalations, Pulmicort and Perforomist inhalations, IV Solu-Medrol. NicoDerm patch in place. Antibiotics in the form of Levaquin. Objective - Vital Signs Vital signs: Vital Signs Temp 97.6 F 07/14/22 08:05 Pulse 77 07/14/22 11:49 Resp 17 07/14/22 08:05 BP 180/81 07/14/22 08:05 Pulse Ox 97 07/14/22 11:49 FiO2 Intake & Output 07/13/22 07/14/22 07/14/22 18:59 06:59 18:59 Weight 54.431 kg Other: # Voids 1 1 1 # Bowel Movements 1 - Exam GENERAL EXAM: Alert, pleasant 72-year-old male, On 2 L nasal cannula. No conversational dyspnea or accessory muscle use, comfortable in no apparent distress. HEAD: Normocephalic and atraumatic EYES: Normal reaction of pupils, equal size. NOSE: Clear with pink turbinates. THROAT: No erythema or exudates. NECK: No masses, no JVD. CHEST: No chest wall deformity. LUNGS: Equal air entry with scattered rhonchi and expiratory wheezes throughout. no crackles. CVS: S1 and S2 normal with no audible murmur, regular rhythm. No extra heart sounds ABDOMEN: No hepatosplenomegaly, active bowel sounds, no guarding or rigidity. SPINE: No scoliosis or deformity SKIN: No rashes CENTRAL NERVOUS SYSTEM: No focal deficits, tone is normal in all 4 extremities. EXTREMITIES: Left [id number] amputation. There is no peripheral edema, clubbing, or cyanosis. Peripheral pulses are intact. - Labs CBC & Chem 7: 07/14/22 06:32 07/14/22 06:32 Labs: Abnormal Lab Results - Last 24 Hours (Table) 07/13/22 07/13/22 07/13/22 Range/Units 15:33 17:20 20:21 RBC (4.40-5.60) X 10*6/uL Hgb (13.0-17.0) g/dL Hct (39.6-50.0) % MCH (27.0-32.0) pg MCHC (32.0-37.0) g/dL RDW (11.5-14.5) % Neutrophils # (1.80-7.70) X 10*3/uL Lymphocytes # (0.90-5.00) X 10*3/uL Eosinophils # (0.04-0.35) X 10*3/uL D-Dimer 0.66 H (<0.60) mg/L FEU Carbon Dioxide (20.0-27.5) mmol/L Anion Gap (10.00-18.00) mmol/L BUN/Creatinine Ratio (12.00-20.00) Ratio Glucose (70-110) mg/dL POC Glucose (mg/dL) 554 H 273 H (70-110) mg/dL 07/14/22 07/14/22 07/14/22 Range/Units 06:32 06:32 07:17 RBC 4.12 L (4.40-5.60) X 10*6/uL Hgb 10.9 L (13.0-17.0) g/dL Hct 35.2 L (39.6-50.0) % MCH 26.5 L (27.0-32.0) pg MCHC 31.0 L (32.0-37.0) g/dL RDW 16.3 H (11.5-14.5) % Neutrophils # 8.71 H (1.80-7.70) X 10*3/uL Lymphocytes # 0.33 L (0.90-5.00) X 10*3/uL Eosinophils # 0 L (0.04-0.35) X 10*3/uL D-Dimer (<0.60) mg/L FEU Carbon Dioxide 27.6 H (20.0-27.5) mmol/L Anion Gap 7.20 L (10.00-18.00) mmol/L BUN/Creatinine Ratio 30.85 H (12.00-20.00) Ratio Glucose 192 H (70-110) mg/dL POC Glucose (mg/dL) 208 H (70-110) mg/dL Microbiology - Last 24 Hours (Table) 07/13/22 03:11 Blood Culture - Preliminary Blood No Growth after 24 hours Assessment and Plan Assessment: Acute hypoxemic respiratory failure secondary to community-acquired left lower lobe pneumonia. CT scan of the chest showed significant advanced emphysema and pulmonary arterial hypertension. Scattered areas of pleural parenchymal scarring. New/increased bibasilar tree and bud opacity in new confluent airspa ce disease basilar left lower lobe. Suspicious for aspiration pneumonitis versus infection. Acute COPD exacerbation New 1.7 cm nodular opacity of the right midlung. To be followed in the outpati ent setting, repeat CT scan in 6 months Current every day smoker Daily marijuana use, vapes Diabetes mellitus type 2 Hypertension Coronary artery disease with previous myocardial infarction Peripheral vascular disease History left AKA Plan: The patient was seen and evaluated Computed tomography scan, medications and labs reviewed Complete a course of Levaquin Complete a prednisone taper Evaluate for possible home oxygen Continue his home Symbicort and albuterol NicoDerm patch in place, to be continued Educated regarding the importance of complete smoking cessation Aware of the pulmonary nodule to be followed up in 6 months Follow-up in our office in 1 week I have personally seen and examined the patient, performed the documentation and the assessment and plan as written. Number of minutes spent on the visit: 10.
[2022-07-14] MEDS: amLODIPine 5 MG TAB PO SCH (12:26)
[2022-07-14] MEDS: GABAPENTIN 400 MG CAP PO SCH (12:27)
[2022-07-14] MEDS: ATORVASTATIN 80 MG TAB PO SCH (12:27)
[2022-07-14] MEDS: ASPIRIN 81 MG PO SCH (12:27)
[2022-07-14] MEDS: DULoxetine HCL 60 MG CAPSULE.DR PO SCH (12:27)
[2022-07-14] MEDS: lisinopriL 20 MG TAB PO SCH (12:27)
[2022-07-14] MEDS: ESCITALOPRAM 10 MG TAB PO SCH (12:27)
[2022-07-14] MEDS: METOPROLOL SUCCINATE (ER) 25 MG TAB.ER.24H PO SCH (12:27)
[2022-07-14] MEDS: PANTOPRAZOLE 40 MG TABLET PO SCH (12:28)
[2022-07-14] MEDS: TAMSULOSIN 0.4 MG CAP.ER.24H PO SCH (12:28)
[2022-07-14] MEDS: NICOTINE 21MG/24HR PATCH TRANSDERM SCH (12:28)
[2022-07-14 13:43] VITALS: BP 154/76; PULSE 71; RESP 18; TEMP 98.2
--- NOTE | 2022-07-16 06:47 | P.DS ---
Providers Date of admission: 07/12/22 14:32 Expected date of discharge: 07/14/22 Attending physician: Fidencio Barrientos Consults: 07/12/22 19:50 Consult Physician Stat Consulting Provider: Ethan Jacobo Consult Reason/Comments: COPD, SOB Do you want consulting provider notified?: Yes Primary care physician: Fidencio Barrientos [facility] Course: Final diagnosis Chronic obstructive pulmonary disease, acute exacerbation Left lower lobe pneumonia Diabetes mellitus, type II Hypertension Continued ongoing nicotine use History of left AKA 2016 Discharge disposition Patient is being discharged in a stable condition with guarded prognosis to home. Patient will follow-up with Dr. Barrientos in the outpatient setting upon discharge. Patient is to continue oral prednisone along with Levaquin and breathing treatments and close outpatient follow-up with pulmonary as scheduled. Total time taken is greater than 35 minutes. Hospital course This is a 72-year-old male who was recently admitted with shortness of breath, COPD exacerbation with concerns of left lower lobe pneumonia. Patient be closely monitored with pulmonary following maintained on IV steroids and breathing treatments along with IV Levaquin. Patient was evaluated by pulmonary cleared for discharge. Please refer to pulmonary no for further HPI. Patient requiring oxygen via nasal cannula to manage COPD this is being arranged by social work. Patient to continue with breathing inhalational treatments along with oral Levaquin and a prednisone taper on discharge. Close outpatient follow-up with pulmonary 1 week. Currently no reports of chest pain, shortness of breath, or palpitations. Patient is afebrile. No reports of nausea or vomiting and patient is tolerating diet. Patient will be discharged home today. Guarded prognosis and high risk for readmission Physical exam: Gen: This is a 72-year-old male is awake, alert and oriented 3, thin built, cachectic, elderly-appearing HEENT: Head is atraumatic, normocephalic. Pupils equal, round. Sclerae is anicteric. NECK: Supple. No JVD. No lymphadenopathy. No thyromegaly. LUNGS: Diminished breath sounds bilaterally with some scattered rhonchi and last t expiratory wheezing No intercostal retractions. HEART: S1, S2 muffled ABDOMEN: Soft. Bowel sounds are present. No masses. No tenderness. EXTREMITIES: No pedal edema. No calf tenderness. Left AKA noted NEUROLOGICAL: Patient is awake, alert and oriented x3. Cranial nerves 2 through 12 are grossly intact. Please refer to medication reconciliation sheet for a list of medications. The impression and plan of care has been dictated by Nori Mancuso, Nurse Practitioner as directed. Dr. Jem MD I have performed a history and examination and MDM of this patient, discussed the same with the dictator, and agree with the dictator's assessment and plan as written ,documented as a scribe. Based on total visit time, I have performed more than 50% of the visit. Patient Condition at Discharge: Fair Plan - Discharge Summary New Discharge Prescriptions: New Nicotine 21Mg/24Hr Patch [Habitrol] 1 patch TRANSDERM DAILY #30 patch predniSONE 10 mg PO DIRECTED #30 tab Budesonide [Pulmicort] 1 mg INHALATION RT-BID 30 Days #60 each Albuterol Nebulized [Ventolin Nebulized] 2.5 mg INHALATION RT-QID 30 Days #100 each Albuterol Nebulized [Ventolin Nebulized] 2.5 mg INHALATION RT-Q2H PRN ml PRN Reason: Shortness Of Breath Or Wheezing Levofloxacin [Levaquin] 500 mg PO DAILY 7 Days #7 tab Continue Aspirin 81 mg PO DAILY DULoxetine HCL [Cymbalta] 60 mg PO DAILY lisinopriL [Prinivil] 20 mg PO DAILY Pantoprazole Sodium [Protonix] 40 mg PO DAILY Escitalopram [Lexapro] 10 mg PO DAILY amLODIPine [Norvasc] 5 mg PO DAILY Nitroglycerin Sl Tabs [Nitrostat] 0.4 mg SUBLINGUAL Q5M PRN #30 tab PRN Reason: Chest Pain Budesonide-Formot 160-4.5 Mcg [Symbicort 160-4.5 Mcg Inhaler] 2 puff INHALATION RT-BID Albuterol Sulfate [Proair Hfa] 2 puff INHALATION RT-QID PRN PRN Reason: Shortness Of Breath Gabapentin [Neurontin] 400 mg PO DAILY Gabapentin [Neurontin] 800 mg PO HS Primidone [Mysoline] 25 mg PO HS Baclofen [Lioresal] 10 mg PO DAILY PRN PRN Reason: Muscle Pain Atorvastatin [Lipitor] 80 mg PO DAILY #30 tab Metoprolol Succinate (ER) [Toprol XL] 25 mg PO DAILY #30 tab.er.24h Naloxone [Narcan] 1 mg SQ ONCE PRN PRN Reason: OVERDOSE Tamsulosin [Flomax] 0.4 mg PO DAILY traZODone HCL [Desyrel] 50 mg PO HS tab HYDROcodone/APAP 10-325MG [[place] 10-325] 1 tab PO Q6HR PRN PRN Reason: Pain Discharge Medication List Aspirin 81 mg PO DAILY 01/14/14 [History] DULoxetine HCL [Cymbalta] 60 mg PO DAILY 01/14/14 [History] lisinopriL [Prinivil] 20 mg PO DAILY 01/14/14 [History] Escitalopram [Lexapro] 10 mg PO DAILY 06/13/18 [History] Pantoprazole Sodium [Protonix] 40 mg PO DAILY 06/13/18 [History] amLODIPine [Norvasc] 5 mg PO DAILY 06/13/18 [History] Atorvastatin [Lipitor] 80 mg PO DAILY #30 tab 07/20/20 [Rx] Metoprolol Succinate (ER) [Toprol XL] 25 mg PO DAILY #30 tab.er.24h 07/20/20 [Rx] Nitroglycerin Sl Tabs [Nitrostat] 0.4 mg SUBLINGUAL Q5M PRN #30 tab 07/20/20 [Rx] Budesonide-Formot 160-4.5 Mcg [Symbicort 160-4.5 Mcg Inhaler] 2 puff INHALATION RT-BID 08/21/20 [History] Albuterol Sulfate [Proair Hfa] 2 puff INHALATION RT-QID PRN 08/29/21 [History] Naloxone [Narcan] 1 mg SQ ONCE PRN 08/29/21 [History] Tamsulosin [Flomax] 0.4 mg PO DAILY 08/29/21 [History] traZODone HCL [Desyrel] 50 mg PO HS tab 09/05/21 [Rx] Baclofen [Lioresal] 10 mg PO DAILY PRN 07/12/22 [History] Gabapentin [Neurontin] 400 mg PO DAILY 07/12/22 [History] Gabapentin [Neurontin] 800 mg PO HS 07/12/22 [History] HYDROcodone/APAP 10-325MG [[place] 10-325] 1 tab PO Q6HR PRN 07/12/22 [History] Primidone [Mysoline] 25 mg PO HS 07/12/22 [History] Albuterol Nebulized [Ventolin Nebulized] 2.5 mg INHALATION RT-Q2H PRN ml 07/14/22 [Rx] Albuterol Nebulized [Ventolin Nebulized] 2.5 mg INHALATION RT-QID 30 Days #100 each 07/14/22 [Rx] Budesonide [Pulmicort] 1 mg INHALATION RT-BID 30 Days #60 each 07/14/22 [Rx] Levofloxacin [Levaquin] 500 mg PO DAILY 7 Days #7 tab 07/14/22 [Rx] Nicotine 21Mg/24Hr Patch [Habitrol] 1 patch TRANSDERM DAILY #30 patch 07/14/22 [Rx] predniSONE 10 mg PO DIRECTED #30 tab 07/14/22 [Rx] Follow up Appointment(s)/Referral(s): Patricio Flanagan MD [STAFF PHYSICIAN] - 07/27/22 9:30 am Fidencio Barrientos MD [Primary Care Provider] - 07/29/22 3:45 pm [facility] [REFERRING] - 1 Week Patient Instructions/Handouts: Albuterol (By breathing), Prednisone (By mouth), Nicotine (Into the mouth), Levofloxacin (By mouth), Budesonide (By breathing), Using Oxygen at Home (DC), COPD (Chronic Obstructive Pulmonary Disease) (DC) Activity/Diet/Wound Care/Special Instructions: Activity Limited until follow-up Continue taking medications as prescribed Continue with breathing treatments along with inhalers Follow-up pulmonary this week Follow-up primary care provider on discharge Discharge Disposition: HOME WITH HOME HEALTH SERVICES
== END 2022-07-14 16:01 | disposition home health service (06) | DRG 193 ==
LOC: EC 12:49 → 5NMEDONC 14:32
PROVIDERS: ADMIT Internal Medicine; ATTEND Internal Medicine
DX: J18.9 Pneumonia, unspecified organism (principal); J96.01 Acute respiratory failure with hypoxia; R64 Cachexia; Z68.1 Body mass index [BMI] 19.9 or less, adult; I27.21 Secondary pulmonary arterial hypertension; E11.51 Type 2 diabetes mellitus with diabetic peripheral angiopathy without gangrene; J43.9 Emphysema, unspecified; I10 Essential (primary) hypertension; F17.210 Nicotine dependence, cigarettes, uncomplicated; J69.0 Pneumonitis due to inhalation of food and vomit; I25.10 Atherosclerotic heart disease of native coronary artery without angina pectoris; G89.29 Other chronic pain; M54.9 Dorsalgia, unspecified; E78.5 Hyperlipidemia, unspecified; N49.3 Fournier gangrene; R91.1 Solitary pulmonary nodule; Z20.822 Contact with and (suspected) exposure to COVID-19; Z89.612 Acquired absence of left leg above knee; Z28.311 Partially vaccinated for COVID-19; Z89.512 Acquired absence of left leg below knee; Z95.5 Presence of coronary angioplasty implant and graft; Z90.79 Acquired absence of other genital organ(s); Z86.14 Personal history of Methicillin resistant Staphylococcus aureus infection; I25.2 Old myocardial infarction; Z86.19 Personal history of other infectious and parasitic diseases; Z88.1 Allergy status to other antibiotic agents; Z79.899 Other long term (current) drug therapy; Z79.4 Long term (current) use of insulin; Z79.52 Long term (current) use of systemic steroids; Z79.51 Long term (current) use of inhaled steroids; Z79.82 Long term (current) use of aspirin
CPT/HCPCS: 36415; 71045; 71260; 80048; 80053; 81001; 83036; 83735; 83880; 84100; 84145; 84484; 85025; 85379; 85610; 85730; 87040; 87449; 87635; 94640; 94760; 96361; 96374; 99291

== ENCOUNTER 2022-08-07 10:55 | Emergency (ER) | payer MEDICARE ==
[2022-08-07 11:05] VITALS: RESP 18
--- NOTE | 2022-08-07 11:53 | ED ---
Extremity Problem HPI - General Chief complaint: Altered Mental Status Stated complaint: Muscle tremors Time Seen by Provider: 08/07/22 11:11 Source: patient, EMS, RN notes reviewed Mode of arrival: EMS Limitations: physical limitation - History of Present Illness Initial comments: This is a 72-year-old male who presents to the emergency department for muscle tremors. States that he noticed tremors in the bilateral upper extremities early this morning. He has a notable history of muscle tremors and has had a complete neurological evaluation. No known cause for the tremors has been identified. Since this morning, tremors have started to subside. Does not believe that they are any worse than normal. He has no complaints in association with the muscle tremors. He is on oxygen at home, denies any increase in shortness of breath. His home care nurse called EMS for him to come to the emergency department for evaluation. According to his home care nurse, there was concern that he may have had some altered mental status this morning with the tremors. Patient denies this and is not currently altered. At this time, the tremors have resolved. Denies any fevers, chills, sore throat, cough, dyspnea, chest pain, palpitations, abdominal pain, nausea, vomiting, diarrhea, back pain, or headaches. - Related Data Home Medications Medication Instructions Recorded Confirmed Aspirin 81 mg PO DAILY 01/14/14 07/12/22 DULoxetine HCL [Cymbalta] 60 mg PO DAILY 01/14/14 07/12/22 lisinopriL [Prinivil] 20 mg PO DAILY 01/14/14 07/12/22 Escitalopram [Lexapro] 10 mg PO DAILY 06/13/18 07/12/22 Pantoprazole Sodium [Protonix] 40 mg PO DAILY 06/13/18 07/12/22 amLODIPine [Norvasc] 5 mg PO DAILY 06/13/18 07/12/22 Budesonide-Formot 160-4.5 Mcg 2 puff INHALATION RT-BID 08/21/20 07/12/22 [Symbicort 160-4.5 Mcg Inhaler] Albuterol Sulfate [Proair Hfa] 2 puff INHALATION RT-QID PRN 08/29/21 07/12/22 Naloxone [Narcan] 1 mg SQ ONCE PRN 08/29/21 07/12/22 Tamsulosin [Flomax] 0.4 mg PO DAILY 08/29/21 07/12/22 Baclofen [Lioresal] 10 mg PO DAILY PRN 07/12/22 07/12/22 Gabapentin [Neurontin] 400 mg PO DAILY 07/12/22 07/12/22 Gabapentin [Neurontin] 800 mg PO HS 07/12/22 07/12/22 HYDROcodone/APAP 10-325MG [[place] 1 tab PO Q6HR PRN 07/12/22 07/12/22 10-325] Primidone [Mysoline] 25 mg PO HS 07/12/22 07/12/22 Previous Rx's Medication Instructions Recorded Atorvastatin [Lipitor] 80 mg PO DAILY #30 tab 07/20/20 Metoprolol Succinate (ER) [Toprol 25 mg PO DAILY #30 tab.er.24h 07/20/20 XL] Nitroglycerin Sl Tabs [Nitrostat] 0.4 mg SUBLINGUAL Q5M PRN #30 tab 07/20/20 traZODone HCL [Desyrel] 50 mg PO HS tab 09/05/21 Albuterol Nebulized [Ventolin 2.5 mg INHALATION RT-Q2H PRN ml 07/14/22 Nebulized] Albuterol Nebulized [Ventolin 2.5 mg INHALATION RT-QID 30 Days 07/14/22 Nebulized] #100 each Budesonide [Pulmicort] 1 mg INHALATION RT-BID 30 Days #60 07/14/22 each Levofloxacin [Levaquin] 500 mg PO DAILY 7 Days #7 tab 07/14/22 Nicotine 21Mg/24Hr Patch [Habitrol] 1 patch TRANSDERM DAILY #30 patch 07/14/22 predniSONE 10 mg PO DIRECTED #30 tab 07/14/22 Levofloxacin [Levaquin] 750 mg PO DAILY 7 Days #7 tab 08/07/22 Allergies Allergy/AdvReac Type Severity Reaction Status Date / Time azithromycin [From Zithromax] Allergy Rash/Hives Verified 07/12/22 15:15 Review of Systems ROS Statement: Those systems with pertinent positive or pertinent negative responses have been documented in the HPI. ROS Other: All systems not noted in ROS Statement are negative. 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 knee wound + FOR MRSA. History of high left above-knee amputation done approximately 2009. Last Myocardial Infarction Date:: 2003 History of Any Multi-Drug Resistant Organisms: MRSA Date of last positivie culture/infection: 04/02/16 MDRO Source:: LT KNEE WOUND Past Surgical History: Heart Catheterization With Stent, Orthopedic Surgery Additional Past Surgical History / Comment(s): STENTS TO LEFT GROIN, LEFT ABOVE THE KNEE AMPUTATION, unsuccessful revascularization left leg, shoulder surgery, surgical debridement of necrotic tissue left scrotal area, LT AKA 03/03/16. left testicle removed. heart stent x1 broken left hip Past Anesthesia/Blood Transfusion Reactions: No Reported Reaction Date of Last Stent Placement:: 2006 Past Psychological History: Depression Smoking Status: Current every day smoker, Vaper Past Alcohol Use History: None Reported Past Drug Use History: Marijuana - Past Family History Sister(s) Family Medical History: Cancer Additional Family Medical History / Comment(s): double mastectomy, still surviving Father Family Medical History: No Reported History Mother Family Medical History: No Reported History Additional Family Medical History / Comment(s): hypoglycemia General Exam Limitations: physical limitation General appearance: alert, in no apparent distress Head exam: Present: atraumatic, normocephalic, normal inspection Eye exam: Present: normal appearance, PERRL, EOMI. Absent: scleral icterus, conjunctival injection, periorbital swelling Respiratory exam: Present: wheezes, decreased breath sounds, prolonged expiratory Cardiovascular Exam: Present: regular rate, normal rhythm, normal heart sounds. Absent: systolic murmur, diastolic murmur, rubs, gallop, clicks Extremities exam: Present: other (No notable tremors to the bilateral upper extremities) Neurological exam: Present: alert, oriented X3, CN II-XII intact, other (No visible muscle tremors) Psychiatric exam: Present: normal affect, normal mood Skin exam: Present: warm, dry, intact, normal color. Absent: rash Course Vital Signs 08/07/22 08/07/22 08/07/22 11:01 12:43 13:00 Temperature 97.6 F Pulse Rate 60 55 L 57 L Respiratory 18 18 18 Rate Blood Pressure 94/58 119/70 95/67 O2 Sat by Pulse 94 L 95 96 Oximetry 08/07/22 08/07/22 14:00 14:56 Temperature 97.8 F Pulse Rate 58 L 73 Respiratory 17 18 Rate Blood Pressure 106/76 O2 Sat by Pulse 97 97 Oximetry Medical Decision Making - Medical Decision Making This is a 72-year-old male who presents to the emergency department for tremors to the bilateral upper extremities. Was pt. sent in by a medical professional or institution? @ -No Did you speak to anyone other than the patient for history? @ -No Did you review nursing and triage notes? @ -Yes, and I agree, it is accurate with regards to the patient's symptoms. Were old charts reviewed? @ -No Differential Diagnosis? @ -Differential Muscle Tremors: Hyperthyroidism, liver disease, kidney disease, intention tremor, benign essential tremor, Parkinson's, brain lesion, anxiety, hypoglycemia, this is not meant to be an all-inclusive list. X-rays interpreted by me (1pt min.)? @ -Chest x-ray obtained. My interpretation identifies bilateral opacities, worse on the right. What testing was considered but not performed? (CT, X-rays, U/S, labs)? Why? @ -None What meds were considered but not given? Why? @ -None Did you discuss the management of the patient with other professionals? @ -No Did you reconcile home meds? @ -No Was smoking cessation discussed for >3mins.? @ -No Was critical care preformed (if so, how long)? @ -No Were there social determinants of health that impacted care today? How? (Homelessness, low income, unemployed, alcoholism, drug addiction, transportation, low edu. Level, literacy, decrease access to med. care, longterm, rehab)? @ -No Was there de-escalation of care discussed even if they declined? (Discuss DNR or withdrawal of care, Hospice)? @ -No What co-morbidities impacted this encounter? (DM, HTN, Smoking, COPD, CAD, Cancer, CVA, Hep., AIDS, mental health diagnosis, sleep apnea, morbid obesity)? @ -COPD, DM, HTN Was patient admitted / discharged? @ -Discharged. Lab work obtained revealing no actionable findings. Chest x- ray reveals an increasing right-sided infiltrate. Patient had no evidence of altered mental status or muscle tremors in the emergency department. Discussed with the patient that given that the muscle tremors have been a chronic problem without any evidence of progression, there is no indication for admission at this time. Additionally, he has already had a complete neurological evaluation that has been negative. Will plan to treat patient for the pneumonia and have him follow-up with his PCP regarding the tremors to see if any additional testing is indicated. Prescription for Levaquin provided with dosing inst ructions reviewed. Undiagnosed new problem with uncertain prognosis? @ -None Drug Therapy requiring intensive monitoring for toxicity (Heparin, Nitro, Insulin, Cardizem)? @ -None Were any procedures done? @ -None Diagnosis/symptom? @ -Pneumonia Acute, or Chronic, or Acute on Chronic? @ -Acute Uncomplicated (without systemic symptoms) or Complicated (systemic symptoms)? @ -Uncomplicated Side effects of treatment? @ -None Exacerbation, Progression, or Severe Exacerbation] @ -Not applicable Poses a threat to life or bodily function? @ -No Diagnosis/symptom? @ -Muscle tremors Acute, or Chronic, or Acute on Chronic? @ -Chronic Uncomplicated (without systemic symptoms) or Complicated (systemic symptoms)? @ -Uncomplicated Side effects of treatment? @ -None Exacerbation, Progression, or Severe Exacerbation] @ -Stable Poses a threat to life or bodily function? @ -No Return precautions reviewed in depth, the patient is instructed to return to the emergency department with any new, worsening, or concerning symptoms. Patient verbalized understanding. This case was discussed in detail with the attending ED physician, Dr. Reeves. Presentation, findings, and treatment plan discussed in detail as well. - Lab Data Result diagrams: 08/07/22 11:52 08/07/22 11:52 Lab Results 08/07/22 08/07/22 08/07/22 Range/Units 11:52 11:52 14:01 WBC 5.5 (3.8-10.6) k/uL RBC 3.94 L (4.30-5.90) m/uL Hgb 10.7 L (13.0-17.5) gm/dL Hct 34.2 L (39.0-53.0) % MCV 86.9 (80.0-100.0) fL MCH 27.1 (25.0-35.0) pg MCHC 31.2 (31.0-37.0) g/dL RDW 16.7 H (11.5-15.5) % Plt Count 364 (150-450) k/uL MPV 7.7 Neutrophils % 75 % Lymphocytes % 11 % Monocytes % 6 % Eosinophils % 5 % Basophils % 0 % Neutrophils # 4.1 (1.3-7.7) k/uL Lymphocytes # 0.6 L (1.0-4.8) k/uL Monocytes # 0.4 (0-1.0) k/uL Eosinophils # 0.3 (0-0.7) k/uL Basophils # 0.0 (0-0.2) k/uL Hypochromasia Slight Anisocytosis Slight Sodium 134 L (137-145) mmol/L Potassium 5.1 (3.5-5.1) mmol/L Chloride 100 (98-107) mmol/L Carbon Dioxide 31 H (22-30) mmol/L Anion Gap 3 mmol/L BUN 38 H (9-20) mg/dL Creatinine 0.83 (0.66-1.25) mg/dL Est GFR (CKD-EPI)AfAm >90 (>60 ml/min/1.73 sqM) Est GFR (CKD-EPI)NonAf 87 (>60 ml/min/1.73 sqM) Glucose 108 H (74-99) mg/dL Calcium 8.2 L (8.4-10.2) mg/dL Total Bilirubin 0.4 (0.2-1.3) mg/dL AST 21 (17-59) U/L ALT 19 (4-49) U/L Alkaline Phosphatase 66 (38-126) U/L Total Protein 5.3 L (6.3-8.2) g/dL Albumin 2.8 L (3.5-5.0) g/dL TSH 0.434 L (0.465-4.680) mIU/L Free T4 1.13 (0.78-2.19) ng/dL Urine Color Yellow Urine Appearance Clear (Clear) Urine pH 5.0 (5.0-8.0) Ur Specific [place] 1.011 (1.001-1.035) Urine Protein Negative (Negative) Urine Glucose (UA) Negative (Negative) Urine Ketones Negative (Negative) Urine Blood Negative (Negative) Urine Nitrite Negative (Negative) Urine Bilirubin Negative (Negative) Urine Urobilinogen <2.0 (<2.0) mg/dL Ur Leukocyte Esterase Negative (Negative) - Radiology Data Radiology results: report reviewed, image reviewed Disposition Clinical Impression: Pneumonia Disposition: HOME SELF-CARE Instructions (If sedation given, give patient instructions): Community Acquired Pneumonia (ED) Additional Instructions: Return to the emergency department with any new, worsening, or concerning symptoms. Take the antibiotic as prescribed for 7 days. Take your next dose tomorrow, as you received a dose in the emergency department. Follow up with your primary care provider in 1-2 days. Prescriptions: Levofloxacin [Levaquin] 750 mg PO DAILY 7 Days #7 tab Is patient prescribed a controlled substance at d/c from ED?: No Referrals: Fidencio Barrientos MD [Primary Care Provider] - 1-2 days
[2022-08-07 12:00] LABS: Anisocytosis Slight; Basophils % (A) 0 %; Eosinophils # (A) 0.3 k/uL (0-0.7); Eosinophils % (A) 5 %; HCT 34.2 % (39.0-53.0); HGB 10.7 gm/dL (13.0-17.5); Hypochromasia Slight; Lymphocytes # (A) 0.6 k/uL (1.0-4.8); Lymphocytes % (A) 11 %; MCH 27.1 pg (25.0-35.0); MCHC 31.2 g/dL (31.0-37.0); MCV 86.9 fL (80.0-100.0); Mean Platelet Volume 7.7; Monocytes # (A) 0.4 k/uL (0-1.0); Monocytes % (A) 6 %; Neutrophils # (A) 4.1 k/uL (1.3-7.7); Neutrophils % (A) 75 %; Platelet Count 364 k/uL (150-450); RBC 3.94 m/uL (4.30-5.90); RDW 16.7 % (11.5-15.5); WBC 5.5 k/uL (3.8-10.6)
--- NOTE | 2022-08-07 12:05 | XR ---
EXAMINATION TYPE: XR chest 2V DATE OF EXAM: 08/07/2022 and 07/27/2022 COMPARISON: 07/13/2022 HISTORY: 72-year-old male with wheezing and shortness of breath TECHNIQUE: AP and lateral views FINDINGS: Heart and lungs are normal in size. Hyperinflation. Patchy bilateral opacities persist. Density sligh tly increased in the upper lungs now. No pleural effusion. IMPRESSION: COPD with advanced emphysema. Some increasing patchy infiltrate in the upper lungs, particularly on t he right, now noted. Correlate for developing pneumonia.
[2022-08-07 12:25] LABS: ALT 19 U/L (4-49); AST 21 U/L (17-59); African American GFR (CKD) >90 (>60 ml/min/1.73 sqM); Albumin 2.8 g/dL (3.5-5.0); Alkaline Phosphatase 66 U/L (38-126); Anion Gap 3 mmol/L; Blood Urea Nitrogen 38 mg/dL (9-20); Calcium 8.2 mg/dL (8.4-10.2); Carbon Dioxide 31 mmol/L (22-30); Chloride 100 mmol/L (98-107); Glucose 108 mg/dL (74-99); Non-African American GFR(CKD) 87 (>60 ml/min/1.73 sqM); Potassium 5.1 mmol/L (3.5-5.1); Sodium 134 mmol/L (137-145); Total Bilirubin 0.4 mg/dL (0.2-1.3); Total Protein 5.3 g/dL (6.3-8.2)
[2022-08-07] MEDS ORDERED: HYDROcodone/APAP 10-325MG 1 EACH TAB PO ONE (12:34)
[2022-08-07] MEDS ORDERED: LEVOFLOXACIN 750 MG TAB PO STA (12:36)
[2022-08-07 13:44] LABS: T4, Free (Free Thyroxine) 1.13 ng/dL (0.78-2.19)
[2022-08-07 14:18] LABS: Appearance,Urine Clear (Clear); Bilirubin,Urine Negative (Negative); Blood,Urine Negative (Negative); Color,Urine Yellow; Glucose,Urine (UA) Negative (Negative); Ketones,Urine Negative (Negative); Leukocyte Esterase,Urine Negative (Negative); Nitrite,Urine Negative (Negative); Protein,Urine Negative (Negative); Specific Gravity,Urine 1.011 (1.001-1.035); Urobilinogen,Urine <2.0 mg/dL (<2.0)
[2022-08-07 14:58] VITALS: BP 106/76; PULSE 73; TEMP 97.8
== END 2022-08-07 16:57 | disposition home or self-care (01) ==
LOC: SUPCPDRO 10:55 → EC 10:55
DX: J18.9 Pneumonia, unspecified organism (principal); I10 Essential (primary) hypertension; F32.A Depression, unspecified; E11.9 Type 2 diabetes mellitus without complications; I25.2 Old myocardial infarction; J44.9 Chronic obstructive pulmonary disease, unspecified; M19.90 Unspecified osteoarthritis, unspecified site; F12.90 Cannabis use, unspecified, uncomplicated; F17.290 Nicotine dependence, other tobacco product, uncomplicated; Z79.51 Long term (current) use of inhaled steroids; Z79.52 Long term (current) use of systemic steroids; Z79.82 Long term (current) use of aspirin; Z79.899 Other long term (current) drug therapy; Z88.1 Allergy status to other antibiotic agents
CPT/HCPCS: 36415; 71046; 80053; 81003; 84439; 84443; 85025; 99285

== ENCOUNTER 2022-08-13 10:36 | Inpatient (IN) | payer MEDICARE ==
[2022-08-13] MEDS ORDERED: ACETAMINOPHEN TAB 500 MG TAB PO STA (11:29)
[2022-08-13] MEDS ORDERED: IPRATROPIUM-ALBUTEROL 3 ML NEB INHALATION STA (11:29)
--- NOTE | 2022-08-13 11:32 | ED ---
General Adult HPI - General Chief complaint: Shortness of Breath Stated complaint: MILTON Time Seen by Provider: 08/13/22 10:55 Source: patient, EMS, RN notes reviewed, old records reviewed Mode of arrival: EMS Limitations: no limitations - History of Present Illness Initial comments: This is a 72-year-old male who presents emergency Department with a history of COPD and diabetes. Patient states he continues to favor occasionally. Patient comes in this morning stating that he was recently at Hospital and was admitted for pneumonia and was sent home on antibiotics. Patient states he still taking antibiotics. Patient states she got up this morning he was having difficulty breathing and his pulse ox was 81% on 3 L. Patient states he went up to 3-1/2 L and eventually came up to 88% but he was still short of breath secondary came to the emergency department. Patient denies any chest pain or palpitations. Patient denies headache patient denies numbness weakness. Patient denies abdominal pain patient's nausea vomiting diarrhea. Patient states he believes he has a low-grade fever. - Related Data Home Medications Medication Instructions Recorded Confirmed Aspirin 81 mg PO DAILY 01/14/14 08/13/22 DULoxetine HCL [Cymbalta] 60 mg PO DAILY 01/14/14 08/13/22 lisinopriL [Prinivil] 20 mg PO DAILY 01/14/14 08/13/22 Escitalopram [Lexapro] 10 mg PO DAILY 06/13/18 08/13/22 Pantoprazole Sodium [Protonix] 40 mg PO DAILY 06/13/18 08/13/22 amLODIPine [Norvasc] 5 mg PO DAILY 06/13/18 08/13/22 Budesonide-Formot 160-4.5 Mcg 2 puff INHALATION RT-BID 08/21/20 08/13/22 [Symbicort 160-4.5 Mcg Inhaler] Albuterol Sulfate [Proair Hfa] 2 puff INHALATION RT-QID PRN 08/29/21 08/13/22 Naloxone [Narcan] 1 mg SQ ONCE PRN 08/29/21 08/13/22 Tamsulosin [Flomax] 0.4 mg PO DAILY 08/29/21 08/13/22 Baclofen [Lioresal] 10 mg PO DAILY PRN 07/12/22 08/13/22 Gabapentin [Neurontin] 400 mg PO DAILY 07/12/22 08/13/22 Gabapentin [Neurontin] 800 mg PO HS 07/12/22 08/13/22 HYDROcodone/APAP 10-325MG [[place] 1 tab PO Q6HR PRN 07/12/22 08/13/22 10-325] Primidone [Mysoline] 25 mg PO HS 07/12/22 08/13/22 Loratadine [Claritin] 10 mg PO DAILY 08/13/22 08/13/22 Nitroglycerin Sl Tabs [Nitrostat] 0.4 mg SL Q5M PRN 08/13/22 08/13/22 Nystatin 100,000Unit/gm Cream 1 applic TOPICAL BID PRN 08/13/22 08/13/22 [Mycostatin Cream] SILVER sulfADIAZINE Cream 1 applic TOPICAL DAILY 08/13/22 08/13/22 [Silvadene 1% Cream] Previous Rx's Medication Instructions Recorded Atorvastatin [Lipitor] 80 mg PO DAILY #30 tab 07/20/20 Metoprolol Succinate (ER) [Toprol 25 mg PO DAILY #30 tab.er.24h 07/20/20 XL] traZODone HCL [Desyrel] 50 mg PO HS tab 09/05/21 Albuterol Nebulized [Ventolin 2.5 mg INHALATION RT-Q2H PRN ml 07/14/22 Nebulized] Albuterol Nebulized [Ventolin 2.5 mg INHALATION RT-QID 30 Days 07/14/22 Nebulized] #100 each Budesonide [Pulmicort] 1 mg INHALATION RT-BID 30 Days #60 07/14/22 each Nicotine 21Mg/24Hr Patch [Habitrol] 1 patch TRANSDERM DAILY #30 patch 07/14/22 Levofloxacin [Levaquin] 750 mg PO DAILY 7 Days #7 tab 08/07/22 Allergies Allergy/AdvReac Type Severity Reaction Status Date / Time azithromycin [From Zithromax] Allergy Rash/Hives Verified 08/13/22 12:09 Review of Systems ROS Statement: Those systems with pertinent positive or pertinent negative responses have been documented in the HPI. ROS Other: All systems not noted in ROS Statement are negative. 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 knee wound + FOR MRSA. History of high left above-knee amputation done approximately 2009. Last Myocardial Infarction Date:: 2003 History of Any Multi-Drug Resistant Organisms: MRSA Date of last positivie culture/infection: 04/02/16 MDRO Source:: LT KNEE WOUND Past Surgical History: Heart Catheterization With Stent, Orthopedic Surgery Additional Past Surgical History / Comment(s): STENTS TO LEFT GROIN, LEFT ABOVE THE KNEE AMPUTATION, unsuccessful revascularization left leg, shoulder surgery, surgical debridement of necrotic tissue left scrotal area, LT AKA 03/03/16. left testicle removed. heart stent x1 broken left hip Past Anesthesia/Blood Transfusion Reactions: No Reported Reaction Date of Last Stent Placement:: 2006 Past Psychological History: Depression Smoking Status: Current every day smoker, Vaper Past Alcohol Use History: None Reported Past Drug Use History: Marijuana - Past Family History Sister(s) Family Medical History: Cancer Additional Family Medical History / Comment(s): double mastectomy, still survi ving Father Family Medical History: No Reported History Mother Family Medical History: No Reported History Additional Family Medical History / Comment(s): hypoglycemia General Exam - General Exam Comments Initial Comments: GENERAL: Patient is well-developed and well-nourished. Patient is nontoxic and well- hydrated and is in mild distress. ENT: Neck is soft and supple. No significant lymphadenopathy is noted. Oropharynx is clear. Moist mucous membranes. Neck has full range of motion without eliciting any pain. EYES: The sclera were anicteric and conjunctiva were pink and moist. Extraocular movements were intact and pupils were equal round and reactive to light. Eyelids were unremarkable. PULMONARY: Right lower lobe crackles CARDIOVASCULAR: There is a regular rate and rhythm without any murmurs gallops or rubs. ABDOMEN: Soft and nontender with normal bowel sounds. No palpable organomegaly was noted. There is no palpable pulsatile mass. SKIN: Skin is clear with no lesions or rashes and otherwise unremarkable. NEUROLOGIC: Patient is alert and oriented x3. Cranial nerves II through XII are grossly intact. Motor and sensory are also intact. Normal speech, volume and content. Symmetrical smile. MUSCULOSKELETAL: Patient has a left BKA LYMPHATICS: No significant lymphadenopathy is noted PSYCHIATRIC: Normal psychiatric evaluation. Limitations: no limitations Course Vital Signs 08/13/22 08/13/22 08/13/22 10:46 11:48 11:55 Temperature 99.9 F H Pulse Rate 89 85 86 Respiratory 20 18 18 Rate Blood Pressure 116/59 O2 Sat by Pulse 94 L Oximetry 08/13/22 12:18 Temperature Pulse Rate 89 Respiratory 18 Rate Blood Pressure 123/64 O2 Sat by Pulse 93 L Oximetry Medical Decision Making - Medical Decision Making EKG was interpreted by myself and it shows a sinus rhythm at 80 bpm HI interval 140 QRS is 105 QT interval 354 QTC is 400. Patient's EKG shows no ST segment elevation or depression. Was pt. sent in by a medical professional or institution (, PA, TELEVISION REPORTER, urgent care, hospital, or longterm...) When possible be specific @ -[No] Did you speak to anyone other than the patient for history (EMS, parent, family, police, friend...)? What history was obtained from this source @ -[No] Did you review nursing and triage notes (agree or disagree)? Why? @ -[I reviewed and agree with nursing and triage notes] Were old charts reviewed (outside hosp., previous admission, EMS record, old EK G, old radiological studies, urgent care reports/EKG's, longterm records)? Report findings @ -Prior x-rays and lab work. Differential Diagnosis (chest pain, altered mental status, abdominal pain women, abdominal pain men, vaginal bleeding, weakness, fever, dyspnea, syncope, headache, dizziness, GI bleed, back pain, seizure, CVA, palpatations, mental health, musculoskeletal)? @ -Differential Dyspnea: Coronary syndrome, arrhythmia, tamponade, asthma, COPD, pulmonary embolism, pneumonia, pneumothorax, pulmonary effusion, anaphylaxis, diabetic ketoacidosis, flailed chest, pulmonary contusion, diaphragmatic rupture, anemia, neuromusc ular, this is not meant to be an all-inclusive list. EKG interpreted by me (3pts min.). @ -[As above] X-rays interpreted by me (1pt min.). @ -Chest x-ray was interpreted by myself shows a infiltrate in the right middle lobe CT interpreted by me (1pt min.). @ -[None done] U/S interpreted by me (1pt. min.). @ -[None done] What testing was considered but not performed or refused? (CT, X-rays, U/S, labs)? Why? @ -[None] What meds were considered but not given or refused? Why? @ -[None] Did you discuss the management of the patient with other professionals (professionals i.e. , PA, TELEVISION REPORTER, lab, RT, psych nurse, social worker school, stoker installation mechanic, teacher, bomb squad officer, case finisher)? Give summary @ -I spoke with Dr. Dr. Barrientos he agreed to admit the patient to the patient wrote admitting orders Was smoking cessation discussed for >3mins.? @ -[No] Was critical care preformed (if so, how long)? @ -[No] Were there social determinants of health that impacted care today? How? (Homelessness, low income, unemployed, alcoholism, drug addiction, tra nsportation, low edu. Level, literacy, decrease access to med. care, group home, rehab)? @ -[No] Was there de-escalation of care discussed even if they declined (Discuss DNR or withdrawal of care, Hospice)? DNR status @ -[No] What co-morbidities impacted this encounter? (DM, HTN, Smoking, COPD, CAD, Cancer, CVA, ARF, Chemo, Hep., AIDS, mental health diagnosis, sleep apnea, morbid obesity)? @ -[None] Was patient admitted / discharged? Hospital course, mention meds given and route, prescriptions, significant lab abnormalities, going to OR and other pertinent info. @ -Patient had pneumonia on the x-ray. I started the patient on antibiotics. Spoke with Dr. Barrientos he agreed to admit the patient I wrote admitting orders and admitted the patient. I continued antibiotics on the floor Drug Therapy requiring intensive monitoring for toxicity (Heparin, Nitro, Insulin, Cardizem)? @ -[No] Were any procedures done? @ -[No] Diagnosis/symptom? @ -Pneumonia Acute, or Chronic, or Acute on Chronic? @ -Acute Uncomplicated (without systemic symptoms) or Complicated (systemic symptoms)? @ -Complicated Side effects of treatment? @ -[No] Exacerbation, Progression, or Severe Exacerbation? @ -[No] Poses a threat to life or bodily function? How? (Chest pain, [place], [place], pneumonia, PE, COPD, DKA, ARF, appy, cholecystitis, CVA, Diverticulitis, Homicidal, Suicidal, threat to staff... and all critical care pts) @ -Yes this could lead to hypoxia and end organ dysfunction - Lab Data Result diagrams: 08/13/22 11:30 08/13/22 11:30 Lab Results 08/13/22 08/13/22 08/13/22 Range/Units 11:30 11:30 11:30 WBC 15.3 H (3.8-10.6) k/uL RBC 4.24 L (4.30-5.90) m/uL Hgb 11.1 L (13.0-17.5) gm/dL Hct 36.0 L (39.0-53.0) % MCV 84.9 (80.0-100.0) fL MCH 26.2 (25.0-35.0) pg MCHC 30.9 L (31.0-37.0) g/dL RDW 17.2 H (11.5-15.5) % Plt Count 368 (150-450) k/uL MPV 8.3 Neutrophils % 91 % Lymphocytes % 2 % Monocytes % 4 % Eosinophils % 1 % Basophils % 0 % Neutrophils # 13.9 H (1.3-7.7) k/uL Lymphocytes # 0.3 L (1.0-4.8) k/uL Monocytes # 0.6 (0-1.0) k/uL Eosinophils # 0.2 (0-0.7) k/uL Basophils # 0.0 (0-0.2) k/uL Hypochromasia Slight Anisocytosis Slight PT 11.0 (9.0-12.0) sec INR 1.1 (<1.2) APTT 27.0 (22.0-30.0) sec Sodium 138 (137-145) mmol/L Potassium 5.0 (3.5-5.1) mmol/L Chloride 101 (98-107) mmol/L Carbon Dioxide 28 (22-30) mmol/L Anion Gap 9 mmol/L BUN 34 H (9-20) mg/dL Creatinine 0.85 (0.66-1.25) mg/dL Est GFR (CKD-EPI)AfAm >90 (>60 ml/min/1.73 sqM) Est GFR (CKD-EPI)NonAf 86 (>60 ml/min/1.73 sqM) Glucose 122 H (74-99) mg/dL Plasma Lactic Acid Mike (0.7-2.0) mmol/L Calcium 8.3 L (8.4-10.2) mg/dL Magnesium 1.5 L (1.6-2.3) mg/dL Total Bilirubin 0.5 (0.2-1.3) mg/dL AST 24 (17-59) U/L ALT 18 (4-49) U/L Alkaline Phosphatase 62 (38-126) U/L Troponin I (0.000-0.034) ng/mL Total Protein 5.7 L (6.3-8.2) g/dL Albumin 3.1 L (3.5-5.0) g/dL 08/13/22 08/13/22 Range/Units 11:30 11:30 WBC (3.8-10.6) k/uL RBC (4.30-5.90) m/uL Hgb (13.0-17.5) gm/dL Hct (39.0-53.0) % MCV (80.0-100.0) fL MCH (25.0-35.0) pg MCHC (31.0-37.0) g/dL RDW (11.5-15.5) % Plt Count (150-450) k/uL MPV Neutrophils % % Lymphocytes % % Monocytes % % Eosinophils % % Basophils % % Neutrophils # (1.3-7.7) k/uL Lymphocytes # (1.0-4.8) k/uL Monocytes # (0-1.0) k/uL Eosinophils # (0-0.7) k/uL Basophils # (0-0.2) k/uL Hypochromasia Anisocytosis PT (9.0-12.0) sec INR (<1.2) APTT (22.0-30.0) sec Sodium (137-145) mmol/L Potassium (3.5-5.1) mmol/L Chloride (98-107) mmol/L Carbon Dioxide (22-30) mmol/L Anion Gap mmol/L BUN (9-20) mg/dL Creatinine (0.66-1.25) mg/dL Est GFR (CKD-EPI)AfAm (>60 ml/min/1.73 sqM) Est GFR (CKD-EPI)NonAf (>60 ml/min/1.73 sqM) Glucose (74-99) mg/dL Plasma Lactic Acid Mike 1.0 (0.7-2.0) mmol/L Calcium (8.4-10.2) mg/dL Magnesium (1.6-2.3) mg/dL Total Bilirubin (0.2-1.3) mg/dL AST (17-59) U/L ALT (4-49) U/L Alkaline Phosphatase (38-126) U/L Troponin I <0.012 (0.000-0.034) ng/mL Total Protein (6.3-8.2) g/dL Albumin (3.5-5.0) g/dL Disposition Clinical Impression: Pneumonia Disposition: ADMITTED IP TO THIS HOSP Referrals: Patricio Flanagan MD [STAFF PHYSICIAN] - 08/18/22 3:45 pm Fidencio Barrientos MD [Primary Care Provider] - 08/27/22 2:30 pm Time of Disposition: 12:57
[2022-08-13 11:49] LABS: Anisocytosis Slight; Basophils % (A) 0 %; Eosinophils # (A) 0.2 k/uL (0-0.7); Eosinophils % (A) 1 %; HGB 11.1 gm/dL (13.0-17.5); Hypochromasia Slight; Lymphocytes # (A) 0.3 k/uL (1.0-4.8); Lymphocytes % (A) 2 %; MCH 26.2 pg (25.0-35.0); MCHC 30.9 g/dL (31.0-37.0); MCV 84.9 fL (80.0-100.0); Mean Platelet Volume 8.3; Monocytes # (A) 0.6 k/uL (0-1.0); Monocytes % (A) 4 %; Neutrophils # (A) 13.9 k/uL (1.3-7.7); Neutrophils % (A) 91 %; Platelet Count 368 k/uL (150-450); RBC 4.24 m/uL (4.30-5.90); RDW 17.2 % (11.5-15.5); WBC 15.3 k/uL (3.8-10.6)
--- NOTE | 2022-08-13 11:51 | XR ---
EXAMINATION TYPE: XR chest 2V DATE OF EXAM: 08/13/2022 COMPARISON: Chest x-ray August 07, 2022 HISTORY: Difficulty in breathing. TECHNIQUE: Frontal and lateral views of the chest are obtained. FINDINGS: There is background chronic emphysematous change redemonstrated with patchy right midlung increased opacities. The cardiac silhouette size remains within normal limits. The osseous structu res are demineralized. Scoliosis is redemonstrated. Advanced degenerative change bilateral glenohumer al joints are redemonstrated. IMPRESSION: Chronic emphysematous change with new right midlung acute infiltrates and/or edema. Shaneka elate for possible pneumonia.
[2022-08-13 12:13] LABS: INR 1.1 (<1.2)
[2022-08-13 12:20] LABS: ALT 18 U/L (4-49); AST 24 U/L (17-59); African American GFR (CKD) >90 (>60 ml/min/1.73 sqM); Albumin 3.1 g/dL (3.5-5.0); Alkaline Phosphatase 62 U/L (38-126); Anion Gap 9 mmol/L; Blood Urea Nitrogen 34 mg/dL (9-20); Calcium 8.3 mg/dL (8.4-10.2); Carbon Dioxide 28 mmol/L (22-30); Chloride 101 mmol/L (98-107); Glucose 122 mg/dL (74-99); Magnesium 1.5 mg/dL (1.6-2.3); Non-African American GFR(CKD) 86 (>60 ml/min/1.73 sqM); Sodium 138 mmol/L (137-145); Total Bilirubin 0.5 mg/dL (0.2-1.3); Total Protein 5.7 g/dL (6.3-8.2)
[2022-08-13] MEDS ORDERED: MAGNESIUM SULFATE-D5W PMX 1 GM in DEXTROSE/WATER 1 100ML.BAG IVPB ONE (12:43)
[2022-08-13] MEDS ORDERED: ACETAMINOPHEN TAB 325 MG TAB PO PRN (12:57)
[2022-08-13] MEDS ORDERED: IPRATROPIUM-ALBUTEROL 3 ML NEB INHALATION PRN (12:57)
[2022-08-13] MEDS ORDERED: PIPERACILLIN-TAZOBACTAM 3.375 GM in SODIUM CHLORIDE 0.9% 100 ML IVPB STA (12:57)
[2022-08-13] MEDS ORDERED: PNEUMONIA PROTOCOL UTILIZED 1 EACH MISC PO PRN (12:57)
[2022-08-13] MEDS: HYDROcodone/APAP 10-325MG 1 EACH TAB PO PRN ×2 (16:36→23:33)
[2022-08-13] MEDS ORDERED: NITROGLYCERIN SL TABS 0.4 MG TAB SUBLINGUAL PRN (17:18)
[2022-08-13] MEDS ORDERED: ALBUTEROL NEBULIZED 2.5 MG/3 ML INHALATION PRN (17:18)
[2022-08-13] MEDS ORDERED: HYDROcodone/APAP 10-325MG 1 EACH TAB PO PRN (17:18)
[2022-08-13] MEDS ORDERED: BACLOFEN 10 MG TAB PO PRN (17:18)
[2022-08-13] MEDS ORDERED: NALOXONE 1 MG/ML 2 ML SYRINGE SQ PRN (17:18)
[2022-08-13] MEDS: GABAPENTIN 400 MG CAP PO SCH ×2 (17:46→20:31)
[2022-08-13] MEDS: NICOTINE 21MG/24HR PATCH TRANSDERM SCH ×2 (17:46→17:47)
--- NOTE | 2022-08-13 18:00 | P.HPIM ---
History of Present Illness H&P Date: 08/13/22 Baldev Joyce, is a 72 -year-old male who presented to [facility] emergency room with a chief complaint of fever and worsening shortness of breath, and decreased O2 sat duration to 80% on room air at home . patient was recently admitted to the hospital with pneumonia, he was admitted on 07/12/2022 and was discharged on 07/14/2022 his diagnosis at that time was left lower lobe pneumonia and COPD exacerbation, at that time he received a course of Levaquin and was discharged home on oral Levaquin. He was evaluated in the emergency room vital examination on presentation revealed a temperature of 99.9 pulse 89 respiration 20 blood pressure 116/59 pulse ox 94% on 4 L nasal cannula Laboratory data revealed a white blood count of 15.3 hemoglobin 11.1 platelet count 368 BUN 34 creatinine 0.85 Testing in the emergency room revealed chest x-ray done in the emergency room revealed new acute infiltrate in the right midlung, EKG revealed sinus rhythm with sinus arrhythmia and borderline right axis deviation. Patient was admitted to medical floor for further evaluation and treatment. Past medical history is significant for history of COPD, history of hypertension, history of hyperlipidemia, history of peripheral arterial disease, and history of continued tobacco abuse. Patient also has a known history of left above-knee amputation. 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 knee wound + FOR MRSA. History of high left above-knee amputation done approximately 2009. Last Myocardial Infarction Date:: 2003 History of Any Multi-Drug Resistant Organisms: MRSA Date of last positivie culture/infection: 04/02/16 MDRO Source:: LT KNEE WOUND Past Surgical History: Heart Catheterization With Stent, Orthopedic Surgery Additional Past Surgical History / Comment(s): STENTS TO LEFT GROIN, LEFT ABOVE THE KNEE AMPUTATION, unsuccessful revascularization left leg, shoulder surgery, surgical debridement of necrotic tissue left scrotal area, LT AKA 03/03/16. left testicle removed. heart stent x1 broken left hip Past Anesthesia/Blood Transfusion Reactions: No Reported Reaction Date of Last Stent Placement:: 2006 Past Psychological History: Depression Smoking Status: Current every day smoker, Vaper Past Alcohol Use History: None Reported Past Drug Use History: Marijuana - Past Family History Sister(s) Family Medical History: Cancer Additional Family Medical History / Comment(s): double mastectomy, still surviving Father Family Medical History: No Reported History Mother Family Medical History: No Reported History Additional Family Medical History / Comment(s): hypoglycemia Medications and Allergies Home Medications Medication Instructions Recorded Confirmed Type Aspirin 81 mg PO DAILY 01/14/14 08/13/22 History DULoxetine HCL [Cymbalta] 60 mg PO DAILY 01/14/14 08/13/22 History lisinopriL [Prinivil] 20 mg PO DAILY 01/14/14 08/13/22 History Escitalopram [Lexapro] 10 mg PO DAILY 06/13/18 08/13/22 History Pantoprazole Sodium [Protonix] 40 mg PO DAILY 06/13/18 08/13/22 History amLODIPine [Norvasc] 5 mg PO DAILY 06/13/18 08/13/22 History Atorvastatin [Lipitor] 80 mg PO DAILY #30 tab 07/20/20 08/13/22 Rx Metoprolol Succinate (ER) [Toprol 25 mg PO DAILY #30 tab.er.24h 07/20/20 08/13/22 Rx XL] Budesonide-Formot 160-4.5 Mcg 2 puff INHALATION RT-BID 08/21/20 08/13/22 History [Symbicort 160-4.5 Mcg Inhaler] Albuterol Sulfate [Proair Hfa] 2 puff INHALATION RT-QID PRN 08/29/21 08/13/22 History Naloxone [Narcan] 1 mg SQ ONCE PRN 08/29/21 08/13/22 History Tamsulosin [Flomax] 0.4 mg PO DAILY 08/29/21 08/13/22 History traZODone HCL [Desyrel] 50 mg PO HS tab 09/05/21 08/13/22 Rx Baclofen [Lioresal] 10 mg PO DAILY PRN 07/12/22 08/13/22 History Gabapentin [Neurontin] 400 mg PO DAILY 07/12/22 08/13/22 History Gabapentin [Neurontin] 800 mg PO HS 07/12/22 08/13/22 History HYDROcodone/APAP 10-325MG [[place] 1 tab PO Q6HR PRN 07/12/22 08/13/22 History 10-325] Primidone [Mysoline] 25 mg PO HS 07/12/22 08/13/22 History Albuterol Nebulized [Ventolin 2.5 mg INHALATION RT-Q2H PRN ml 07/14/22 08/13/22 Rx Nebulized] Albuterol Nebulized [Ventolin 2.5 mg INHALATION RT-QID 30 Days 07/14/22 08/13/22 Rx Nebulized] #100 each Budesonide [Pulmicort] 1 mg INHALATION RT-BID 30 Days #60 07/14/22 08/13/22 Rx each Nicotine 21Mg/24Hr Patch [Habitrol] 1 patch TRANSDERM DAILY #30 patch 07/14/22 08/13/22 Rx Levofloxacin [Levaquin] 750 mg PO DAILY 7 Days #7 tab 08/07/22 08/13/22 Rx Loratadine [Claritin] 10 mg PO DAILY 08/13/22 08/13/22 History Nitroglycerin Sl Tabs [Nitrostat] 0.4 mg SL Q5M PRN 08/13/22 08/13/22 History Nystatin 100,000Unit/gm Cream 1 applic TOPICAL BID PRN 08/13/22 08/13/22 History [Mycostatin Cream] SILVER sulfADIAZINE Cream 1 applic TOPICAL DAILY 08/13/22 08/13/22 History [Silvadene 1% Cream] Allergies Allergy/AdvReac Type Severity Reaction Status Date / Time azithromycin [From Zithromax] Allergy Rash/Hives Verified 08/13/22 12:09 Physical Exam Vitals: Vital Signs Temp Pulse Resp BP Pulse Ox 08/13/22 16:16 87 18 106/74 94 L 08/13/22 13:18 84 18 112/67 95 08/13/22 12:18 89 18 123/64 93 L 08/13/22 11:55 86 18 08/13/22 11:48 85 18 08/13/22 10:46 99.9 F H 89 20 116/59 94 L Intake and Output 08/13/22 08/13/22 08/13/22 06:59 14:59 22:59 Other: Weight 54.431 kg In general patient is alert and oriented x 3 in no distress HEENT head normocephalic and atraumatic Neck is supple no JVD no goiter no lymphadenopathy no carotid bruit Chest examination reveals a crackles in both lung michel with wheezing Cardiac exam reveals regular heart sounds S1 and S2 no gallops no murmurs Abdomen is soft nontender no organomegaly with normal bowel sounds Extremity exam reveals no edema no cyanosis or clubbing, left [id number] amputation Neurological examination reveals no gross focal deficits Results CBC & Chem 7: 08/13/22 11:30 08/13/22 11:30 Labs: Abnormal Lab Results - Last 24 Hours (Table) 08/13/22 08/13/22 Range/Units 11:30 11:30 WBC 15.3 H (3.8-10.6) k/uL RBC 4.24 L (4.30-5.90) m/uL Hgb 11.1 L (13.0-17.5) gm/dL Hct 36.0 L (39.0-53.0) % MCHC 30.9 L (31.0-37.0) g/dL RDW 17.2 H (11.5-15.5) % Neutrophils # 13.9 H (1.3-7.7) k/uL Lymphocytes # 0.3 L (1.0-4.8) k/uL BUN 34 H (9-20) mg/dL Glucose 122 H (74-99) mg/dL Calcium 8.3 L (8.4-10.2) mg/dL Magnesium 1.5 L (1.6-2.3) mg/dL Total Protein 5.7 L (6.3-8.2) g/dL Albumin 3.1 L (3.5-5.0) g/dL Assessment and Plan Plan: Pneumonia, community-acquired, versus hospital acquired, he was started on IV Zosyn in the emergency room, he is ALLERGIC to Zithromax Underlying history of COPD Chronic tobacco abuse Underlying history of peripheral vascular disease, with history of left [id number] amputation Underlying history of hypertension Underlying history of hyperlipidemia At this time patient is admitted to medical floor Home medications reviewed and reordered Sputum for culture and Gram stain Continue with IV Zosyn at this time Counseled regarding smoking and vaping cessation Pulmonary consultation Will follow closely
[2022-08-13] MEDS: PRIMIDONE 50 MG TAB PO SCH (20:30)
[2022-08-13] MEDS: traZODone HCL 50 MG TAB PO SCH (20:31)
[2022-08-13] MEDS: ALBUTEROL NEBULIZED 2.5 MG/3 ML INHALATION SCH (21:09)
[2022-08-13] MEDS: SYMBICORT 160-4.5 MCG INHALER INHALATION SCH (21:09)
[2022-08-13] MEDS: BUDESONIDE 1 MG/2 ML NEBU INHALATION SCH (21:09)
[2022-08-13] MEDS: PIPERACILLIN-TAZOBACTAM 3.375 GM in SODIUM CHLORIDE 0.9% 100 ML IVPB SCH (23:33)
[2022-08-14] MEDS: HYDROcodone/APAP 10-325MG 1 EACH TAB PO PRN ×2 (06:36→18:06)
[2022-08-14] MEDS: BUDESONIDE 1 MG/2 ML NEBU INHALATION SCH ×2 (07:26→19:27)
[2022-08-14] MEDS: ALBUTEROL NEBULIZED 2.5 MG/3 ML INHALATION SCH ×2 (07:26→11:10)
[2022-08-14] MEDS: SYMBICORT 160-4.5 MCG INHALER INHALATION SCH ×2 (07:41→19:27)
[2022-08-14 08:15] LABS: Glucose,Whole Blood 193 mg/dL (70-110)
--- NOTE | 2022-08-14 08:17 | XR ---
EXAMINATION TYPE: XR chest 2V DATE OF EXAM: 08/14/2022 COMPARISON: 08/13/2022 TECHNIQUE: PA and lateral views submitted. HISTORY: Cough FINDINGS: There is diffuse emphysematous changes with small bilateral effusions. There is a nodular appearing d ensity in the right perihilar region and right upper lobe. No interstitial edema. No pneumothorax. Pu lmonary arteries are prominent. IMPRESSION: 1. COPD with right midlung and right upper lobe pulmonary nodules. Underlying malignancy not excluded . 2. Correlate for pulmonary arterial hypertension 3. Subsegmental changes at the left lung base. Atelectasis favored over pneumonia.
[2022-08-14 08:36] LABS: Basophils # (A) 0.03 X 10*3/uL (0.00-0.10); Basophils % (A) 0.2 %; Eosinophils # (A) 0.14 X 10*3/uL (0.04-0.35); Eosinophils % (A) 1.1 %; HCT 33.5 % (39.6-50.0); HGB 10.1 g/dL (13.0-17.0); Immature Grans, Automated 0.7 %; Lymphocytes # (A) 0.59 X 10*3/uL (0.90-5.00); Lymphocytes % (A) 4.7 %; MCH 25.8 pg (27.0-32.0); MCHC 30.1 g/dL (32.0-37.0); MCV 85.7 fL (80.0-97.0); Mean Platelet Volume 10.2 fL (9.5-12.2); Monocytes # (A) 0.72 X 10*3/uL (0.20-1.00); Monocytes % (A) 5.8 %; NRBC Per 100 WBC 0 /100 WBCS (0.0-0.0); Neutrophils # (A) 10.94 X 10*3/uL (1.80-7.70); Neutrophils % (A) 87.5 %; Platelet Count 341 X 10*3/uL (140-440); RBC 3.91 X 10*6/uL (4.40-5.60); WBC 12.51 X 10*3/uL (4.50-10.00)
[2022-08-14] MEDS: PIPERACILLIN-TAZOBACTAM 3.375 GM in SODIUM CHLORIDE 0.9% 100 ML IVPB SCH ×2 (09:27→15:29)
[2022-08-14] MEDS: ATORVASTATIN 80 MG TAB PO SCH (09:28)
[2022-08-14] MEDS: TAMSULOSIN 0.4 MG CAP.ER.24H PO SCH (09:28)
[2022-08-14] MEDS: ENOXAPARIN 40 MG/0.4 ML SYRINGE SQ SCH (09:28)
[2022-08-14] MEDS: DULoxetine HCL 60 MG CAPSULE.DR PO SCH (09:28)
[2022-08-14] MEDS: GABAPENTIN 400 MG CAP PO SCH ×2 (09:28→21:04)
[2022-08-14] MEDS: lisinopriL 20 MG TAB PO SCH (09:28)
[2022-08-14] MEDS: METOPROLOL SUCCINATE (ER) 25 MG TAB.ER.24H PO SCH (09:28)
[2022-08-14] MEDS: NICOTINE 21MG/24HR PATCH TRANSDERM SCH (09:28)
[2022-08-14] MEDS: ASPIRIN 81 MG PO SCH (09:28)
[2022-08-14] MEDS: PANTOPRAZOLE 40 MG TABLET PO SCH (09:28)
[2022-08-14] MEDS: amLODIPine 5 MG TAB PO SCH (09:28)
[2022-08-14] MEDS: LORATADINE 10 MG TAB PO SCH (09:29)
[2022-08-14] MEDS: ESCITALOPRAM 10 MG TAB PO SCH (09:29)
--- NOTE | 2022-08-14 10:44 | P.PN ---
Subjective Progress Note Date: 08/14/22 Baldev Joyce, is a 72 -year-old male who presented to [facility] emergency room with a chief complaint of fever and worsening shortness of breath, and decreased O2 sat duration to 80% on room air at home . patient was recently admitted to the hospital with pneumonia, he was admitted on 07/12/2022 and was discharged on 07/14/2022 his diagnosis at that time was left lower lobe pneumonia and COPD exacerbation, at that time he received a course of Levaquin and was discharged home on oral Levaquin. He was evaluated in the emergency room vital examination on presentation revealed a temperature of 99.9 pulse 89 respiration 20 blood pressure 116/59 pulse ox 94% on 4 L nasal cannula Laboratory data revealed a white blood count of 15.3 hemoglobin 11.1 platelet count 368 BUN 34 creatinine 0.85 Testing in the emergency room revealed chest x-ray done in the emergency room revealed new acute infiltrate in the right midlung, EKG revealed sinus rhythm with sinus arrhythmia and borderline right axis deviation. Patient was admitted to medical floor for further evaluation and treatment. Past medical history is significant for history of COPD, history of hypertension, history of hyperlipidemia, history of peripheral arterial disease, and history of continued tobacco abuse. Patient also has a known history of left above-knee amputation. On 08/14/2022 she is alert and oriented 3. Patient reports improvement with cough and shortness of breath. Patient still having significant wheezing upon auscultation. Patient remains on IV Zosyn. Pulmonary and infectious disease services will be consulted. Current vital signs temp 98.7, heart rate 69, respiratory rate 18, blood pressure 145/71, pulse ox 95% on 4 L Objective - Vital Signs Vital signs: Vital Signs Temp 98.7 F 08/14/22 07:23 Pulse 76 08/14/22 07:43 Resp 18 08/14/22 07:23 BP 145/71 08/14/22 07:23 Pulse Ox 95 08/14/22 07:30 FiO2 Intake & Output 08/13/22 08/14/22 08/14/22 18:59 06:59 18:59 Output Total 1 Balance -1 Weight 54.431 kg Output: Urine 1 Other: # Voids 4 # Bowel Movements 1 - Exam In general patient is alert and oriented x 3 in no distress HEENT head normocephalic and atraumatic Neck is supple no JVD no goiter no lymphadenopathy no carotid bruit Chest examination reveals a crackles in both lung michel with wheezing Cardiac exam reveals regular heart sounds S1 and S2 no gallops no murmurs Abdomen is soft nontender no organomegaly with normal bowel sounds Extremity exam reveals no edema no cyanosis or clubbing, left pzvis-xjr-vpsg amputation Neurological examination reveals no gross focal deficits - Labs CBC & Chem 7: 08/14/22 06:00 08/13/22 11:30 Labs: Abnormal Lab Results - Last 24 Hours (Table) 08/13/22 08/13/22 08/14/22 Range/Units 11:30 11:30 06:00 WBC 15.3 H 12.51 H (3.8-10.6) k/uL RBC 4.24 L 3.91 L (4.30-5.90) m/uL Hgb 11.1 L 10.1 L (13.0-17.5) gm/dL Hct 36.0 L 33.5 L (39.0-53.0) % MCH 25.8 L (27.0-32.0) pg MCHC 30.9 L 30.1 L (31.0-37.0) g/dL RDW 17.2 H 18.0 H (11.5-15.5) % Immature Gran # 0.09 H (0.00-0.04) X 10*3/uL Neutrophils # 13.9 H 10.94 H (1.3-7.7) k/uL Lymphocytes # 0.3 L 0.59 L (1.0-4.8) k/uL BUN 34 H (9-20) mg/dL Glucose 122 H (74-99) mg/dL POC Glucose (mg/dL) (70-110) mg/dL Calcium 8.3 L (8.4-10.2) mg/dL Magnesium 1.5 L (1.6-2.3) mg/dL Total Protein 5.7 L (6.3-8.2) g/dL Albumin 3.1 L (3.5-5.0) g/dL 08/14/22 Range/Units 08:15 WBC (3.8-10.6) k/uL RBC (4.30-5.90) m/uL Hgb (13.0-17.5) gm/dL Hct (39.0-53.0) % MCH (27.0-32.0) pg MCHC (31.0-37.0) g/dL RDW (11.5-15.5) % Immature Gran # (0.00-0.04) X 10*3/uL Neutrophils # (1.3-7.7) k/uL Lymphocytes # (1.0-4.8) k/uL BUN (9-20) mg/dL Glucose (74-99) mg/dL POC Glucose (mg/dL) 193 H (70-110) mg/dL Calcium (8.4-10.2) mg/dL Magnesium (1.6-2.3) mg/dL Total Protein (6.3-8.2) g/dL Albumin (3.5-5.0) g/dL Microbiology - Last 24 Hours (Table) 08/13/22 21:12 Legionella Culture - Preliminary Sputum 08/13/22 21:12 Sputum Culture - Preliminary Sputum Assessment and Plan Plan: Pneumonia, community-acquired, versus hospital acquired, he was started on IV Zosyn in the emergency room, he is ALLERGIC to Zithromax Underlying history of COPD Chronic tobacco abuse Underlying history of peripheral vascular disease, with history of left fewol-qii-iabu amputation Underlying history of hypertension Underlying history of hyperlipidemia At this time patient is admitted to medical floor Home medications reviewed and reordered Sputum for culture and Gram stain Continue with IV Zosyn at this time Counseled regarding smoking and vaping cessation Pulmonary and infectious disease service is consulted Pulmonary consultation Will follow closely
[2022-08-14 11:28] LABS: African American GFR (CKD) 75.4 (60.0-200.0); Albumin 3.1 g/dL (3.8-4.9); Albumin/Globulin Ratio 1.38 (1.60-3.17); Anion Gap 10.4 mmol/L (10.00-18.00); BUN/Creat Ratio 30.09 Ratio (12.00-20.00); Blood Urea Nitrogen 33.4 mg/dL (9.0-27.0); Calcium 8.7 mg/dL (8.7-10.3); Carbon Dioxide 27.2 mmol/L (20.0-27.5); Globulin 2.3 g/dL (1.6-3.3); Non-African American GFR(CKD) 65.1 (60.0-200.0); Potassium 4.6 mmol/L (3.5-5.5); Total Bilirubin 0.3 mg/dL (0.30-1.20); Total Protein 5.4 g/dL (6.2-8.2)
[2022-08-14 13:49] VITALS: BMI 15.4
--- NOTE | 2022-08-14 14:58 | P.CNPUL ---
History of Present Illness Consult date: 08/14/22 Requesting physician: Fidencio Barrientos Reason for consult: dyspnea, cough, COPD, hypoxemia, other Chief complaint: Low saturations, and rapid heart rate. History of present illness: Pulmonary consult dated 08/14/2022. 72-year-old male with an extensive tobacco history, a 55 years, 2-3 packs a day, comes into the emergency room on August 13 complaining of shortness of breath, low saturations, and rapid heart rate. The patient has a history of COPD. He was recently inpatient, and was seen in July, by one of my partners. His primary care physician is Dr. Barrientos. The patient was seen in the emergency room admitted with a diagnosis of COPD exacerbation, possible right-sided pneumonia. The patient does use home oxygen, at 3 L. As mentioned, he smoked for 55 years, at 2-3 packs a day, although he quit about 1 year ago. Currently, he is on 4 L of oxygen, and was receiving Zosyn. He states that his saturations are down in the low 80s, and his heart rate was above 120. At home, he uses an albuterol inhaler, and a Symbicort inhaler. Currently, he is getting saline at 20 mL an hour. His medical history includes COPD, diabetes, hypertension, myocardial infarction, osteoarthritis, migraine cephalgia, shingles, Ki's gangrene , chronic back pain, and a high left pjcsb-eug-ikea amputation, 2009. White count 12.51, hemoglobin 10.1, hematocrit 33.5, and platelet count 341,000. Sodium 140, potassium 4.6, chlorides 102, CO2 27, BUN 33, and creatinine 1.1. Chest x- ray shows changes of COPD, possible infiltrate in the right midlung, and possible pulmonary nodules in the right upper lobe. Many of these changes could be chronic in nature. Review of Systems REVIEW OF SYSTEMS: CONSTITUTIONAL: [Negative.] NEUROLOGIC: [ Negative.] HEENT: [ Negative.] CARDIAC: Tachycardia. PULMONARY: Shortness of breath, low saturations, cough, with minimal phlegm production. GI: [Negative.] : [Negative.] RHEUMATOLOGIC: [ Negative.] IMMUNOLOGIC: [ Negative.] ENDOCRINE: [Negative. 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 knee wound + FOR MRSA. History of high left above-knee amputation done approximately 2009. Last Myocardial Infarction Date:: 2003 History of Any Multi-Drug Resistant Organisms: MRSA Date of last positivie culture/infection: 04/02/16 MDRO Source:: LT KNEE WOUND Past Surgical History: Heart Catheterization With Stent, Orthopedic Surgery Additional Past Surgical History / Comment(s): STENTS TO LEFT GROIN, LEFT ABOVE THE KNEE AMPUTATION, unsuccessful revascularization left leg, shoulder surgery, surgical debridement of necrotic tissue left scrotal area, LT AKA 03/03/16. left testicle removed. heart stent x1 broken left hip Past Anesthesia/Blood Transfusion Reactions: No Reported Reaction Date of Last Stent Placement:: 2006 Past Psychological History: Depression Smoking Status: Former smoker, Vaper Past Alcohol Use History: None Reported Additional Past Alcohol Use History / Comment(s): Patient is a ex-smoker one and a half packs of cigarettes per day for 52 years. He smokes marijuana on a daily basis and has done so for many decades. He denies any alcohol use. He lives at home with his and there is one 2 dogs in the home. 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 He denies any service. use a vaper daily Past Drug Use History: Marijuana Additional Drug Use History / Comment(s): medical marijuana card-uses daily - Past Family History Sister(s) Family Medical History: Cancer Additional Family Medical History / Comment(s): double mastectomy, still surviving Father Family Medical History: No Reported History Mother Family Medical History: No Reported History Additional Family Medical History / Comment(s): hypoglycemia Medications and Allergies Home Medications Medication Instructions Recorded Confirmed Type Aspirin 81 mg PO DAILY 01/14/14 08/13/22 History DULoxetine HCL [Cymbalta] 60 mg PO DAILY 01/14/14 08/13/22 History lisinopriL [Prinivil] 20 mg PO DAILY 01/14/14 08/13/22 History Escitalopram [Lexapro] 10 mg PO DAILY 06/13/18 08/13/22 History Pantoprazole Sodium [Protonix] 40 mg PO DAILY 06/13/18 08/13/22 History amLODIPine [Norvasc] 5 mg PO DAILY 06/13/18 08/13/22 History Atorvastatin [Lipitor] 80 mg PO DAILY #30 tab 07/20/20 08/13/22 Rx Metoprolol Succinate (ER) [Toprol 25 mg PO DAILY #30 tab.er.24h 07/20/20 08/13/22 Rx XL] Budesonide-Formot 160-4.5 Mcg 2 puff INHALATION RT-BID 08/21/20 08/13/22 History [Symbicort 160-4.5 Mcg Inhaler] Albuterol Sulfate [Proair Hfa] 2 puff INHALATION RT-QID PRN 08/29/21 08/13/22 History Naloxone [Narcan] 1 mg SQ ONCE PRN 08/29/21 08/13/22 History Tamsulosin [Flomax] 0.4 mg PO DAILY 08/29/21 08/13/22 History traZODone HCL [Desyrel] 50 mg PO HS tab 09/05/21 08/13/22 Rx Baclofen [Lioresal] 10 mg PO DAILY PRN 07/12/22 08/13/22 History Gabapentin [Neurontin] 400 mg PO DAILY 07/12/22 08/13/22 History Gabapentin [Neurontin] 800 mg PO HS 07/12/22 08/13/22 History HYDROcodone/APAP 10-325MG [[place] 1 tab PO Q6HR PRN 07/12/22 08/13/22 History 10-325] Primidone [Mysoline] 25 mg PO HS 07/12/22 08/13/22 History Albuterol Nebulized [Ventolin 2.5 mg INHALATION RT-Q2H PRN ml 07/14/22 08/13/22 Rx Nebulized] Albuterol Nebulized [Ventolin 2.5 mg INHALATION RT-QID 30 Days 07/14/22 08/13/22 Rx Nebulized] #100 each Budesonide [Pulmicort] 1 mg INHALATION RT-BID 30 Days #60 07/14/22 08/13/22 Rx each Nicotine 21Mg/24Hr Patch [Habitrol] 1 patch TRANSDERM DAILY #30 patch 07/14/22 0 08/13/22 Rx Levofloxacin [Levaquin] 750 mg PO DAILY 7 Days #7 tab 08/07/22 08/13/22 Rx Loratadine [Claritin] 10 mg PO DAILY 08/13/22 08/13/22 History Nitroglycerin Sl Tabs [Nitrostat] 0.4 mg SL Q5M PRN 08/13/22 08/13/22 History Nystatin 100,000Unit/gm Cream 1 applic TOPICAL BID PRN 08/13/22 08/13/22 History [Mycostatin Cream] SILVER sulfADIAZINE Cream 1 applic TOPICAL DAILY 08/13/22 08/13/22 History [Silvadene 1% Cream] Allergies Allergy/AdvReac Type Severity Reaction Status Date / Time azithromycin [From Zithromax] Allergy Rash/Hives Verified 08/13/22 12:09 Physical Exam Osteopathic Statement: *. No significant issues noted on an osteopathic structural exam other than those noted in the History and Physical/Consult. Vitals: Vital Signs Temp Pulse Pulse Resp BP BP Pulse Ox 08/14/22 11:19 76 08/14/22 11:11 72 08/14/22 07:43 76 08/14/22 07:30 84 95 08/14/22 07:23 98.7 F 69 18 145/71 93 L 08/14/22 01:58 99.7 F H 76 15 155/84 95 08/13/22 21:23 82 08/13/22 21:11 80 08/13/22 20:00 98.3 F 80 19 144/72 97 08/13/22 18:17 82 18 107/80 96 08/13/22 16:16 87 18 106/74 94 L Intake and Output 08/13/22 08/14/22 08/14/22 22:59 06:59 14:59 Output Total 1 Balance -1 Output: Urine 1 Other: # Voids 4 # Bowel Movements 1 Weight 54.431 kg 54.431 kg No acute distress, oriented 3. Currently on 4 L of oxygen. No conversational dyspnea or use of accessory muscles. HEENT examination is grossly unremarkable. Neck supple. Full range of motion. No adenopathy thyromegaly or neck vein distention. Cardiovascular examination reveals regular rhythm rate. S1-S2 normal. No S3 or S4. No discernible murmur noted. Heart rate 76 bpm. Lungs reveal scattered mild to moderate rhonchi. No wheezes or crackles. Breath sounds are equal bilaterally but diminished throughout. Saturations are 95% on 4 L. Abdomen soft bowel sounds are heard. No masses or tenderness. Extremities reveal a left awpyl-jie-qaxg amputation. No cyanosis or clubbing. Skin is without rash or lesion. Neurologic examination is brief but nonfocal. Results - Laboratory Findings CBC and BMP: 08/14/22 06:00 08/14/22 06:00 PT/INR, D-dimer PT 11.0 sec (9.0-12.0) 08/13/22 11:30 INR 1.1 (<1.2) 08/13/22 11:30 Abnormal lab findings: Abnormal Labs 08/13/22 08/13/22 08/14/22 11:30 11:30 06:00 WBC 15.3 H 12.51 H RBC 4.24 L 3.91 L Hgb 11.1 L 10.1 L Hct 36.0 L 33.5 L MCH 25.8 L MCHC 30.9 L 30.1 L RDW 17.2 H 18.0 H Immature Gran # 0.09 H Neutrophils # 13.9 H 10.94 H Lymphocytes # 0.3 L 0.59 L BUN 34 H BUN/Creatinine Ratio Glucose 122 H POC Glucose (mg/dL) Calcium 8.3 L Magnesium 1.5 L Total Protein 5.7 L Albumin 3.1 L Albumin/Globulin Ratio 08/14/22 08/14/22 06:00 08:15 WBC RBC Hgb Hct MCH MCHC RDW Immature Gran # Neutrophils # Lymphocytes # BUN 33.4 H BUN/Creatinine Ratio 30.09 H Glucose 127 H POC Glucose (mg/dL) 193 H Calcium Magnesium Total Protein 5.4 L Albumin 3.1 L Albumin/Globulin Ratio 1.38 L - Diagnostic Findings Chest x-ray: image reviewed Assessment and Plan Assessment: Acute exacerbation of COPD, with worsening hypoxemia. History of heavy tobacco use, for 55 years, at 2-3 packs a day. History of diabetes mellitus. History of hypertension. History of myocardial infarction, with previous PCI and stent placement. Peripheral vascular occlusive disease, status post high left above-knee amputation, 2009. History of migraine cephalgia. History of shingles. Ki's gangrene. Prior history of MRSA infection. Plan: Plan dated 08/14/2022. The patient's labs, x-rays, and medications are reviewed. We will make sure he is on appropriate medications for a COPD exacerbation. Chest x-ray my opinion is not real impressive, but we'll check a pro-calcitonin level if it has not yet been done. Additional recommendations and suggestions are forthcoming. Prognosis is guarded. The patient has not see my partner in the office as yet. He was in the hospital about a month ago with a similar situation. He will need eventual follow-up. Time with Patient: Greater than 30
[2022-08-14] MEDS: LIDOCAINE 5% PATCH TOPICAL SCH (15:29)
[2022-08-14] MEDS: IPRATROPIUM-ALBUTEROL 3 ML NEB INHALATION SCH ×2 (15:32→19:27)
[2022-08-14] MEDS: PRIMIDONE 50 MG TAB PO SCH (21:04)
[2022-08-14] MEDS: traZODone HCL 50 MG TAB PO SCH (21:04)
--- NOTE | 2022-08-14 21:52 | P.CONS ---
History of Present Illness - Reason for Consult Consult date: 08/14/22 Pneumonia Requesting physician: Fidencio Barrientos - Chief Complaint Shortness of breath and cough x one day - History of Present Illness Patient is a 72-year-old male with a past medical history significant for COPD patient did have a history of PAD and the patient is status post left gszcf-rjn-qnyi amputation patient presenting to the ER for evaluation of increasing shortness of breath apparently the patient mentioned that he went to sleep when he woke up his O2 sats was in 80s and was complaining of increasing shortness of breath he also have a cough moderate intensity and is bringing up some sputum no hemoptysis no pleuritic chest pain no nausea vomiting no abdominal pain or diarrhea patient presented to the hospital had low-grade fever of 99.9 F patient was hypoxic and is currently on 4 L nasal cannula oxygen he did have vital of 15.3 with a left shift kidney function has been normal liver enzymes are normal patient did have a chest x-ray chronic emphysematous changes new right midlung acute infiltrate or edema concerning for pneumonia patient was started on Zosyn infectious disease was consulted for further management of antibiotic therapy Review of Systems Positive point and negatives has been mentioned in the HPI, complete review of systems was performed and all other systems are negative Past Medical History Past Medical History: COPD, Hyperlipidemia, Hypertension, Myocardial Infarction ([place]), Osteoarthritis (OA), Vascular Disorder Additional Past Medical History / Comment(s): hx migraines, hx shingles, 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 knee wound + FOR MRSA. History of high left above-knee amputation done approximately 2009. Last Myocardial Infarction Date:: 2003 History of Any Multi-Drug Resistant Organisms: MRSA Year Discovered:: 04/02/16 MDRO Source:: LT KNEE WOUND Past Surgical History: Heart Catheterization With Stent, Orthopedic Surgery Additional Past Surgical History / Comment(s): STENTS TO LEFT GROIN, LEFT ABOVE THE KNEE AMPUTATION, unsuccessful revascularization left leg, shoulder surgery, surgical debridement of necrotic tissue left scrotal area, LT AKA 03/03/16. left testicle removed. heart stent x1 broken left hip Past Anesthesia/Blood Transfusion Reactions: No Reported Reaction Date of Last Stent Placement:: 2006 Past Psychological History: Depression Smoking Status: Former smoker, Vaper Past Alcohol Use History: None Reported Additional Past Alcohol Use History / Comment(s): Patient is a ex-smoker one and a half packs of cigarettes per day for 52 years. He smokes marijuana on a daily basis and has done so for many decades. He denies any alcohol use. He lives at home with his and there is one 2 dogs in the home. 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 use a vaper daily Past Drug Use History: Marijuana Additional Drug Use History / Comment(s): medical marijuana card-uses daily - Past Family History Sister(s) Family Medical History: Cancer Additional Family Medical History / Comment(s): double mastectomy, still surviving Father Family Medical History: No Reported History Mother Family Medical History: No Reported History Additional Family Medical History / Comment(s): hypoglycemia Medications and Allergies Home Medications Medication Instructions Recorded Confirmed Type RX: Aspirin 81 mg PO DAILY 01/14/14 08/13/22 History RX: DULoxetine HCL [Cymbalta] 60 mg PO DAILY 01/14/14 08/13/22 History RX: lisinopriL [Prinivil] 20 mg PO DAILY 01/14/14 08/13/22 History RX: Escitalopram [Lexapro] 10 mg PO DAILY 06/13/18 08/13/22 History RX: Pantoprazole Sodium [Protonix] 40 mg PO DAILY 06/13/18 08/13/22 History RX: amLODIPine [Norvasc] 5 mg PO DAILY 06/13/18 08/13/22 History RX: Atorvastatin [Lipitor] 80 mg PO DAILY #30 tab 07/20/20 08/13/22 Rx RX: Metoprolol Succinate (ER) 25 mg PO DAILY #30 tab.er.24h 07/20/20 08/13/22 Rx [Toprol XL] RX: Budesonide-Formot 160-4.5 Mcg 2 puff INHALATION RT-BID 08/21/20 08/13/22 History [Symbicort 160-4.5 Mcg Inhaler] RX: Albuterol Sulfate [Proair Hfa] 2 puff INHALATION RT-QID PRN 08/29/2108/13 History RX: Naloxone [Narcan] 1 mg SQ ONCE PRN 08/29/21 08/13/22 History RX: Tamsulosin [Flomax] 0.4 mg PO DAILY 08/29/21 08/13/22 History RX: traZODone HCL [Desyrel] 50 mg PO HS tab 09/05/21 08/13/22 Rx RX: Baclofen [Lioresal] 10 mg PO DAILY PRN 07/12/22 08/13/22 History RX: Gabapentin [Neurontin] 400 mg PO DAILY 07/12/22 08/13/22 History RX: Gabapentin [Neurontin] 800 mg PO HS 07/12/22 08/13/22 History RX: HYDROcodone/APAP 10-325MG 1 tab PO Q6HR PRN 07/12/22 08/13/22 History [[place] 10-325] RX: Primidone [Mysoline] 25 mg PO HS 07/12/22 08/13/22 History RX: Albuterol Nebulized [Ventolin 2.5 mg INHALATION RT-Q2H PRN ml 07/14/22 08/13/22 Rx Nebulized] RX: Albuterol Nebulized [Ventolin 2.5 mg INHALATION RT-QID 30 Days 07/14/22 08/13/22 Rx Nebulized] #100 each RX: Budesonide [Pulmicort] 1 mg INHALATION RT-BID 30 Days #60 07/14/22 08/13/22 Rx each RX: Nicotine 21Mg/24Hr Patch 1 patch TRANSDERM DAILY #30 patch 07/14/22 08/13/22 Rx [Habitrol] Levofloxacin [Levaquin] 750 mg PO DAILY 7 Days #7 tab 08/07/22 08/13/22 Rx Loratadine [Claritin] 10 mg PO DAILY 08/13/22 08/13/22 History Nystatin 100,000Unit/gm Cream 1 applic TOPICAL BID PRN 08/13/22 08/13/22 History [Mycostatin Cream] RX: Nitroglycerin Sl Tabs 0.4 mg SL Q5M PRN 08/13/22 08/13/22 History [Nitrostat] SILVER sulfADIAZINE Cream 1 applic TOPICAL DAILY 08/13/22 08/13/22 History [Silvadene 1% Cream] Allergies Allergy/AdvReac Type Severity Reaction Status Date / Time azithromycin [From Zithromax] Allergy Rash/Hives Verified 08/13/22 12:09 Physical Exam Vitals: Vital Signs Temp Pulse Pulse Resp BP BP Pulse Ox 08/14/22 07:43 76 08/14/22 07:30 84 95 08/14/22 07:23 98.7 F 69 18 145/71 93 L 08/14/22 01:58 99.7 F H 76 15 155/84 95 08/13/22 21:23 82 08/13/22 21:11 80 08/13/22 20:00 98.3 F 80 19 144/72 97 08/13/22 18:17 82 18 107/80 96 08/13/22 16:16 87 18 106/74 94 L 08/13/22 13:18 84 18 112/67 95 08/13/22 12:18 89 18 123/64 93 L 08/13/22 11:55 86 18 08/13/22 11:48 85 18 Intake and Output 08/13/22 08/14/22 08/14/22 22:59 06:59 14:59 Output Total 1 Balance -1 Output: Urine 1 Other: # Voids 4 # Bowel Movements 1 Weight 54.431 kg GENERAL DESCRIPTION: Elderly male lying in bed, no distress. No tachypnea or accessory muscle of respiration use. HEENT: Shows Pallor , no scleral icterus. Oral mucous membrane is dry. NECK: Trachea central, no thyromegaly. LUNGS: Unlabored breathing. Coarse bases bilaterally occasional wheeze HEART: S1, S2, regular rate and rhythm. No loud murmur ABDOMEN: Soft, no tenderness , guarding or rigidity, no organomegaly EXTREMITIES: No edema of feet. SKIN: No rash, no masses palpable. NEUROLOGICAL: The patient is awake, alert, oriented x3, mood and affect normal. Results CBC & Chem 7: 08/17/22 05:43 08/17/22 05:43 Labs: Abnormal Lab Results - Last 24 Hours (Table) 08/13/22 08/13/22 08/14/22 Range/Units 11:30 11:30 06:00 WBC 15.3 H 12.51 H (3.8-10.6) k/uL RBC 4.24 L 3.91 L (4.30-5.90) m/uL Hgb 11.1 L 10.1 L (13.0-17.5) gm/dL Hct 36.0 L 33.5 L (39.0-53.0) % MCH 25.8 L (27.0-32.0) pg MCHC 30.9 L 30.1 L (31.0-37.0) g/dL RDW 17.2 H 18.0 H (11.5-15.5) % Immature Gran # 0.09 H (0.00-0.04) X 10*3/uL Neutrophils # 13.9 H 10.94 H (1.3-7.7) k/uL Lymphocytes # 0.3 L 0.59 L (1.0-4.8) k/uL BUN 34 H (9-20) mg/dL Glucose 122 H (74-99) mg/dL POC Glucose (mg/dL) (70-110) mg/dL Calcium 8.3 L (8.4-10.2) mg/dL Magnesium 1.5 L (1.6-2.3) mg/dL Total Protein 5.7 L (6.3-8.2) g/dL Albumin 3.1 L (3.5-5.0) g/dL 08/14/22 Range/Units 08:15 WBC (3.8-10.6) k/uL RBC (4.30-5.90) m/uL Hgb (13.0-17.5) gm/dL Hct (39.0-53.0) % MCH (27.0-32.0) pg MCHC (31.0-37.0) g/dL RDW (11.5-15.5) % Immature Gran # (0.00-0.04) X 10*3/uL Neutrophils # (1.3-7.7) k/uL Lymphocytes # (1.0-4.8) k/uL BUN (9-20) mg/dL Glucose (74-99) mg/dL POC Glucose (mg/dL) 193 H (70-110) mg/dL Calcium (8.4-10.2) mg/dL Magnesium (1.6-2.3) mg/dL Total Protein (6.3-8.2) g/dL Albumin (3.5-5.0) g/dL Microbiology - Last 24 Hours (Table) 08/13/22 21:12 Legionella Culture - Preliminary Sputum 08/13/22 21:12 Sputum Culture - Preliminary Sputum Assessment and Plan (1) Pneumonia Current Visit: Yes Status: Acute Code(s): J18.9 - PNEUMONIA, UNSPECIFIED ORGANISM SNOMED Code(s): 899051162 Plan: 1patient was in the hospital with increasing shortness of breath he did have low-grade fever elevated white count chest x-ray with the right midlung acute infiltrate concerning for pneumonia in this patient with a history of COPD has been out of the hospital we will need to cover for resistant gram-negative to be the likely pathogen 2-sputum culture has been obtained results will be followed 3-Zosyn 3.375 g every 8-hour We will follow on clinical condition and cultures to further adjust medication if needed Thank you for this consultation we will follow the patient along with you Time with Patient: Greater than 30
[2022-08-15] MEDS: PIPERACILLIN-TAZOBACTAM 3.375 GM in SODIUM CHLORIDE 0.9% 100 ML IVPB SCH ×4 (00:55→23:22)
[2022-08-15] MEDS: HYDROcodone/APAP 10-325MG 1 EACH TAB PO PRN ×3 (02:31→17:37)
[2022-08-15] MEDS: SYMBICORT 160-4.5 MCG INHALER INHALATION SCH ×2 (08:44→21:33)
[2022-08-15] MEDS: IPRATROPIUM-ALBUTEROL 3 ML NEB INHALATION SCH ×4 (08:44→21:33)
[2022-08-15] MEDS: BUDESONIDE 1 MG/2 ML NEBU INHALATION SCH ×2 (08:44→21:33)
[2022-08-15] MEDS: NICOTINE 21MG/24HR PATCH TRANSDERM SCH (08:55)
[2022-08-15] MEDS: predniSONE 20 MG TAB PO SCH (08:57)
[2022-08-15] MEDS: PANTOPRAZOLE 40 MG TABLET PO SCH (08:57)
[2022-08-15] MEDS: ESCITALOPRAM 10 MG TAB PO SCH (08:57)
[2022-08-15] MEDS: DULoxetine HCL 60 MG CAPSULE.DR PO SCH (08:57)
[2022-08-15] MEDS: ENOXAPARIN 40 MG/0.4 ML SYRINGE SQ SCH (08:57)
[2022-08-15] MEDS: METOPROLOL SUCCINATE (ER) 25 MG TAB.ER.24H PO SCH (08:57)
[2022-08-15] MEDS: LORATADINE 10 MG TAB PO SCH (08:57)
[2022-08-15] MEDS: ATORVASTATIN 80 MG TAB PO SCH (08:58)
[2022-08-15] MEDS: amLODIPine 5 MG TAB PO SCH (08:58)
[2022-08-15] MEDS: LIDOCAINE 5% PATCH TOPICAL SCH (08:58)
[2022-08-15] MEDS: TAMSULOSIN 0.4 MG CAP.ER.24H PO SCH (08:58)
[2022-08-15] MEDS: ASPIRIN 81 MG PO SCH (08:58)
[2022-08-15] MEDS: GABAPENTIN 400 MG CAP PO SCH ×2 (08:58→20:29)
[2022-08-15] MEDS: lisinopriL 20 MG TAB PO SCH (08:58)
[2022-08-15 09:19] LABS: Basophils # (A) 0.03 X 10*3/uL (0.00-0.10); Basophils % (A) 0.4 %; Eosinophils # (A) 0.23 X 10*3/uL (0.04-0.35); Eosinophils % (A) 2.9 %; HCT 31.1 % (39.6-50.0); HGB 9.6 g/dL (13.0-17.0); Immature Grans, Automated 0.8 %; Lymphocytes # (A) 0.79 X 10*3/uL (0.90-5.00); MCH 26.3 pg (27.0-32.0); MCHC 30.9 g/dL (32.0-37.0); MCV 85.2 fL (80.0-97.0); Monocytes # (A) 0.55 X 10*3/uL (0.20-1.00); Monocytes % (A) 6.9 %; NRBC Per 100 WBC 0 /100 WBCS (0.0-0.0); Neutrophils # (A) 6.27 X 10*3/uL (1.80-7.70); Platelet Count 317 X 10*3/uL (140-440); RBC 3.65 X 10*6/uL (4.40-5.60); RDW 18.3 % (11.5-14.5); WBC 7.93 X 10*3/uL (4.50-10.00)
--- NOTE | 2022-08-15 09:21 | P.PN ---
Subjective Progress Note Date: 08/15/22 72-year-old male with an extensive tobacco history, a 55 years, 2-3 packs a day, comes into the emergency room on August 13 complaining of shortness of breath, low saturations, and rapid heart rate. The patient has a history of COPD. He was recently inpatient, and was seen in July, by one of my partners. His primary care physician is Dr. Barrientos. The patient was seen in the emergency room admitted with a diagnosis of COPD exacerbation, possible right-sided pneumonia. The patient does use home oxygen, at 3 L. As mentioned, he smoked for 55 years, at 2-3 packs a day, although he quit about 1 year ago. Currently, he is on 4 L of oxygen, and was receiving Zosyn. He states that his saturations are down in the low 80s, and his heart rate was above 120. At home, he uses an albuterol inhaler, and a Symbicort inhaler. Currently, he is getting saline at 20 mL an hour. His medical history includes COPD, diabetes, hypertension, myocardial infarction, osteoarthritis, migraine cephalgia, shingles, Ki's gangrene , chronic back pain, and a high left pbqrq-dme-gavh amputation, 2009. White count 12.51, hemoglobin 10.1, hematocrit 33.5, and platelet count 341,000. Sodium 140, potassium 4.6, chlorides 102, CO2 27, BUN 33, and creatinine 1.1. Chest x- ray shows changes of COPD, possible infiltrate in the right midlung, and possible pulmonary nodules in the right upper lobe. Many of these changes could be chronic in nature. The patient is seen today 08/15/2022 in follow-up on the regular medical floor. He is currently sitting up in bed. Awake alert no acute distress. Continues with a productive cough with yellow sputum. Sputum culture pending. He is maintaining good O2 saturations in the 90s on 4 L/m per nasal cannula. He has normal saline at 20 miles per hour. He is still somewhat bronchospastic and wheezing. Procalcitonin 0.42. He remains on Zosyn. Continued on DuoNeb inhalations, Symbicort, prednisone taper. Objective - Vital Signs Vital signs: Vital Signs Temp 98.1 F 08/15/22 06:55 Pulse 86 08/15/22 08:58 Resp 18 08/15/22 06:55 BP 133/72 08/15/22 06:55 Pulse Ox 90 L 08/15/22 08:44 FiO2 Intake & Output 08/14/22 08/15/22 08/15/22 18:59 06:59 18:59 Intake Total 100 240 Output Total 1 Balance 99 240 Weight 54.431 kg Intake: Intake, IV Titration 100 Amount Piperacillin-Tazobactam 3 100 .375 gm In Sodium Chloride 0.9% 100 ml @ 25 mls/hr IVPB Q8HR [facility] Rx# :[id number] Oral 240 Output: Urine 1 Other: # Voids 1 1 # Bowel Movements 1 1 - Exam GENERAL EXAM: Alert, pleasant 72-year-old male, on 4 L nasal cannula, comfortab le in no apparent distress. HEAD: Normocephalic. EYES: Normal reaction of pupils, equal size. NOSE: Clear with pink turbinates. THROAT: No erythema or exudates. NECK: No masses, no JVD. CHEST: No chest wall deformity. LUNGS: Equal air entry with bilateral wheeze, few scattered rhonchi. CVS: S1 and S2 normal with no audible murmur, regular rhythm. ABDOMEN: No hepatosplenomegaly, normal bowel sounds, no guarding or rigidity. SPINE: No scoliosis or deformity SKIN: No rashes CENTRAL NERVOUS SYSTEM: No focal deficits, tone is normal in all 4 extremities. EXTREMITIES: Left tehid-wwu-glsi amputation. There is no peripheral edema. No clubbing, no cyanosis. Peripheral pulses are intact. - Labs CBC & Chem 7: 08/14/22 06:00 08/14/22 06:00 Labs: Abnormal Lab Results - Last 24 Hours (Table) 08/14/22 08/14/22 Range/Units 06:00 15:45 BUN 33.4 H (9.0-27.0) mg/dL BUN/Creatinine Ratio 30.09 H (12.00-20.00) Ratio Glucose 127 H (70-110) mg/dL Total Protein 5.4 L (6.2-8.2) g/dL Albumin 3.1 L (3.8-4.9) g/dL Albumin/Globulin Ratio 1.38 L (1.60-3.17) g/dL Procalcitonin 0.42 H (0.02-0.09) ng/mL Microbiology - Last 24 Hours (Table) 08/13/22 21:12 Gram Stain - Preliminary Sputum Sputum Culture - Preliminary Assessment and Plan Assessment: Acute exacerbation of COPD, with worsening hypoxemia. Possible purulent tracheobronchitis. Percussed 0.42. Currently on Zosyn History of heavy tobacco use, for 55 years, at 2-3 packs a day. History of diabetes mellitus. History of hypertension. History of myocardial infarction, with previous PCI and stent placement. Peripheral vascular occlusive disease, status post high left above-knee amputation, 2009. History of migraine cephalgia. History of shingles. Ki's gangrene. Prior history of MRSA infection. Plan: The patient was seen and evaluated Medications reviewed Percussive troponin 0.4 to Continue Zosyn Continue bronchodilators Titrate the FiO2 as tolerated We will continue to follow I have personally seen and examined the patient, performed the documentation and the assessment and plan as written. Number of minutes spent on the visit: 10.
[2022-08-15 09:48] LABS: African American GFR (CKD) 98.8 (60.0-200.0); Albumin 2.8 g/dL (3.8-4.9); Albumin/Globulin Ratio 1.28 (1.60-3.17); Anion Gap 7.1 mmol/L (10.00-18.00); BUN/Creat Ratio 31.6 Ratio (12.00-20.00); Blood Urea Nitrogen 27.3 mg/dL (9.0-27.0); Calcium 8.3 mg/dL (8.7-10.3); Carbon Dioxide 27.9 mmol/L (20.0-27.5); Globulin 2.2 g/dL (1.6-3.3); Non-African American GFR(CKD) 85.3 (60.0-200.0); Potassium 4.1 mmol/L (3.5-5.5); Total Bilirubin 0.2 mg/dL (0.30-1.20)
--- NOTE | 2022-08-15 10:58 | P.PN ---
Subjective Progress Note Date: 08/15/22 Principal diagnosis: Pneumonia Patient is a 72-year-old male with a past medical history significant for COPD patient did have a history of PAD and the patient is status post left fivsm-hjf-sjrj amputation patient presenting to the ER for evaluation of increasing shortness of breath , CT of the chest did shows right mid lung infiltrate concerning for pneumonia. On today's evaluation that is 08/16/2019, the patient denies having any fever or chills his baseline comfortably cough is decreased intensity no chest pain or worsening depression no nausea no vomiting no abdominal pain or diarrhea is asking for medication to help him go to sleep at night Objective - Vital Signs Vital signs: Vital Signs Temp 98.1 F 08/15/22 06:55 Pulse 86 08/15/22 08:58 Resp 18 08/15/22 06:55 BP 133/72 08/15/22 06:55 Pulse Ox 90 L 08/15/22 08:44 FiO2 Intake & Output 08/14/22 08/15/22 08/15/22 18:59 06:59 18:59 Intake Total 100 240 Output Total 1 Balance 99 240 Weight 54.431 kg Intake: Intake, IV Titration 100 Amount Piperacillin-Tazobactam 3 100 .375 gm In Sodium Chloride 0.9% 100 ml @ 25 mls/hr IVPB Q8HR [facility] Rx# :[id number] Oral 240 Output: Urine 1 Other: Voiding Method Urinal # Voids 1 1 # Bowel Movements 1 1 - Exam GENERAL DESCRIPTION: An elderly male lying in bed in no distress RESPIRATORY SYSTEM: Unlabored breathing , decreased breath sounds at bases HEART: S1 S2 regular rate and rhythm , ABDOMEN: Soft , no tenderness EXTREMITIES: Right lower extremity minimal erythema but no warmth - Labs CBC & Chem 7: 08/15/22 06:20 08/15/22 06:20 Labs: Abnormal Lab Results - Last 24 Hours (Table) 08/14/22 08/14/22 08/15/22 Range/Units 06:00 15:45 06:20 RBC 3.65 L (4.40-5.60) X 10*6/uL Hgb 9.6 L (13.0-17.0) g/dL Hct 31.1 L (39.6-50.0) % MCH 26.3 L (27.0-32.0) pg MCHC 30.9 L (32.0-37.0) g/dL RDW 18.3 H (11.5-14.5) % Immature Gran # 0.06 H (0.00-0.04) X 10*3/uL Lymphocytes # 0.79 L (0.90-5.00) X 10*3/uL Carbon Dioxide (20.0-27.5) mmol/L Anion Gap (10.00-18.00) mmol/L BUN 33.4 H (9.0-27.0) mg/dL BUN/Creatinine Ratio 30.09 H (12.00-20.00) Ratio Glucose 127 H (70-110) mg/dL Calcium (8.7-10.3) mg/dL Total Bilirubin (0.30-1.20) mg/dL Total Protein 5.4 L (6.2-8.2) g/dL Albumin 3.1 L (3.8-4.9) g/dL Albumin/Globulin Ratio 1.38 L (1.60-3.17) g/dL Procalcitonin 0.42 H (0.02-0.09) ng/mL 08/15/22 Range/Units 06:20 RBC (4.40-5.60) X 10*6/uL Hgb (13.0-17.0) g/dL Hct (39.6-50.0) % MCH (27.0-32.0) pg MCHC (32.0-37.0) g/dL RDW (11.5-14.5) % Immature Gran # (0.00-0.04) X 10*3/uL Lymphocytes # (0.90-5.00) X 10*3/uL Carbon Dioxide 27.9 H (20.0-27.5) mmol/L Anion Gap 7.10 L (10.00-18.00) mmol/L BUN 27.3 H (9.0-27.0) mg/dL BUN/Creatinine Ratio 31.60 H (12.00-20.00) Ratio Glucose 116 H (70-110) mg/dL Calcium 8.3 L (8.7-10.3) mg/dL Total Bilirubin 0.20 L (0.30-1.20) mg/dL Total Protein 5.0 L (6.2-8.2) g/dL Albumin 2.8 L (3.8-4.9) g/dL Albumin/Globulin Ratio 1.28 L (1.60-3.17) g/dL Procalcitonin (0.02-0.09) ng/mL Microbiology - Last 24 Hours (Table) 08/13/22 13:00 Blood Culture - Preliminary Blood 08/13/22 13:19 Blood Culture - Preliminary Blood 08/13/22 21:12 Gram Stain - Preliminary Sputum Sputum Culture - Preliminary Assessment and Plan (1) Pneumonia Current Visit: Yes Status: Acute Code(s): J18.9 - PNEUMONIA, UNSPECIFIED ORGANISM SNOMED Code(s): 224382012 Plan: 1patient was in the hospital with increasing shortness of breath he did have low-grade fever elevated white count chest x-ray with the right midlung acute infiltrate concerning for pneumonia in this patient with a history of COPD has been out of the hospital we will need to cover for resistant gram-negative to be the likely pathogen 2-sputum culture has been obtained results are currently pending 3-patient to continue with Zosyn 3.375 g every 8-hour, while waiting for the cultures to finalize Time with Patient: Less than 30
--- NOTE | 2022-08-15 12:38 | P.PN ---
Subjective Progress Note Date: 08/15/22 Baldev Joyce, is a 72 -year-old male who presented to [facility] emergency room with a chief complaint of fever and worsening shortness of breath, and decreased O2 sat duration to 80% on room air at home . patient was recently admitted to the hospital with pneumonia, he was admitted on 07/12/2022 and was discharged on 07/14/2022 his diagnosis at that time was left lower lobe pneumonia and COPD exacerbation, at that time he received a course of Levaquin and was discharged home on oral Levaquin. He was evaluated in the emergency room vital examination on presentation revealed a temperature of 99.9 pulse 89 respiration 20 blood pressure 116/59 pulse ox 94% on 4 L nasal cannula Laboratory data revealed a white blood count of 15.3 hemoglobin 11.1 platelet count 368 BUN 34 creatinine 0.85 Testing in the emergency room revealed chest x-ray done in the emergency room revealed new acute infiltrate in the right midlung, EKG revealed sinus rhythm with sinus arrhythmia and borderline right axis deviation. Patient was admitted to medical floor for further evaluation and treatment. Past medical history is significant for history of COPD, history of hypertension, history of hyperlipidemia, history of peripheral arterial disease, and history of continued tobacco abuse. Patient also has a known history of left above-knee amputation. On 08/14/2022 she is alert and oriented 3. Patient reports improvement with cough and shortness of breath. Patient still having significant wheezing upon auscultation. Patient remains on IV Zosyn. Pulmonary and infectious disease services will be consulted. Current vital signs temp 98.7, heart rate 69, respiratory rate 18, blood pressure 145/71, pulse ox 95% on 4 L On 08/15/2022 patient was seen and examined on the medical floor he is alert and oriented 3 in no apparent distress he is still complaining of cough with sputum production he is also complaining of shortness of breath with any activity otherwise he denies any complaints there is no fever or chills no headache or dizziness no chest pain no palpitation no nausea or vomiting no abdominal pain no diarrhea no blood in the stools no burning with urination no frequency or urgency no hematuria. He is asking for a sleeping aid. Objective - Vital Signs Vital signs: Vital Signs Temp 98.1 F 08/15/22 06:55 Pulse 74 08/15/22 06:55 Resp 18 08/15/22 06:55 BP 133/72 08/15/22 06:55 Pulse Ox 90 L 08/15/22 06:55 FiO2 Intake & Output 08/14/22 08/15/22 08/15/22 18:59 06:59 18:59 Intake Total 100 240 Output Total 1 Balance 99 240 Weight 54.431 kg Intake: Intake, IV Titration 100 Amount Piperacillin-Tazobactam 3 100 .375 gm In Sodium Chloride 0.9% 100 ml @ 25 mls/hr IVPB Q8HR [facility] Rx# :[id number] Oral 240 Output: Urine 1 Other: # Voids 1 # Bowel Movements 1 - Exam In general patient is alert and oriented x 3 in no distress HEENT head normocephalic and atraumatic Neck is supple no JVD no goiter no lymphadenopathy no carotid bruit Chest examination reveals a crackles in both lung michel with wheezing Cardiac exam reveals regular heart sounds S1 and S2 no gallops no murmurs Abdomen is soft nontender no organomegaly with normal bowel sounds Extremity exam reveals no edema no cyanosis or clubbing, left uhsit-fim-amtv amputation Neurological examination reveals no gross focal deficits - Labs CBC & Chem 7: 08/15/22 06:20 08/15/22 06:20 Labs: Abnormal Lab Results - Last 24 Hours (Table) 08/14/22 08/14/22 08/14/22 Range/Units 06:00 06:00 08:15 WBC 12.51 H (4.50-10.00) X 10*3/uL RBC 3.91 L (4.40-5.60) X 10*6/uL Hgb 10.1 L (13.0-17.0) g/dL Hct 33.5 L (39.6-50.0) % MCH 25.8 L (27.0-32.0) pg MCHC 30.1 L (32.0-37.0) g/dL RDW 18.0 H (11.5-14.5) % Immature Gran # 0.09 H (0.00-0.04) X 10*3/uL Neutrophils # 10.94 H (1.80-7.70) X 10*3/uL Lymphocytes # 0.59 L (0.90-5.00) X 10*3/uL BUN 33.4 H (9.0-27.0) mg/dL BUN/Creatinine Ratio 30.09 H (12.00-20.00) Ratio Glucose 127 H (70-110) mg/dL POC Glucose (mg/dL) 193 H (70-110) mg/dL Total Protein 5.4 L (6.2-8.2) g/dL Albumin 3.1 L (3.8-4.9) g/dL Albumin/Globulin Ratio 1.38 L (1.60-3.17) g/dL Procalcitonin (0.02-0.09) ng/mL 08/14/22 Range/Units 15:45 WBC (4.50-10.00) X 10*3/uL RBC (4.40-5.60) X 10*6/uL Hgb (13.0-17.0) g/dL Hct (39.6-50.0) % MCH (27.0-32.0) pg MCHC (32.0-37.0) g/dL RDW (11.5-14.5) % Immature Gran # (0.00-0.04) X 10*3/uL Neutrophils # (1.80-7.70) X 10*3/uL Lymphocytes # (0.90-5.00) X 10*3/uL BUN (9.0-27.0) mg/dL BUN/Creatinine Ratio (12.00-20.00) Ratio Glucose (70-110) mg/dL POC Glucose (mg/dL) (70-110) mg/dL Total Protein (6.2-8.2) g/dL Albumin (3.8-4.9) g/dL Albumin/Globulin Ratio (1.60-3.17) g/dL Procalcitonin 0.42 H (0.02-0.09) ng/mL Microbiology - Last 24 Hours (Table) 08/13/22 21:12 Gram Stain - Preliminary Sputum Sputum Culture - Preliminary 08/13/22 21:12 Legionella Culture - Preliminary Sputum Assessment and Plan Plan: Pneumonia, community-acquired, versus hospital acquired, he was started on IV Zosyn in the emergency room, he is ALLERGIC to Zithromax Underlying history of COPD Chronic tobacco abuse Underlying history of peripheral vascular disease, with history of left fhhig-tez-sxqr amputation Underlying history of hypertension Underlying history of hyperlipidemia At this time patient is admitted to medical floor Home medications reviewed and reordered Sputum for culture and Gram stain Continue with IV Zosyn at this time Counseled regarding smoking and vaping cessation Pulmonary and infectious disease service is consulted Pulmonary consultation Will follow closely
[2022-08-15] MEDS: traZODone HCL 50 MG TAB PO SCH (20:29)
[2022-08-15] MEDS: MELATONIN 3 MG TABLET PO SCH (20:30)
[2022-08-15] MEDS: PRIMIDONE 50 MG TAB PO SCH (20:30)
[2022-08-16] MEDS: SYMBICORT 160-4.5 MCG INHALER INHALATION SCH ×2 (07:34→20:38)
[2022-08-16] MEDS: IPRATROPIUM-ALBUTEROL 3 ML NEB INHALATION SCH ×4 (07:34→20:39)
[2022-08-16] MEDS: BUDESONIDE 1 MG/2 ML NEBU INHALATION SCH ×2 (07:34→20:39)
[2022-08-16] MEDS: HYDROcodone/APAP 10-325MG 1 EACH TAB PO PRN ×3 (08:26→20:14)
[2022-08-16] MEDS: ESCITALOPRAM 10 MG TAB PO SCH (08:26)
[2022-08-16] MEDS: PANTOPRAZOLE 40 MG TABLET PO SCH (08:26)
[2022-08-16] MEDS: LORATADINE 10 MG TAB PO SCH (08:26)
[2022-08-16] MEDS: LIDOCAINE 5% PATCH TOPICAL SCH (08:26)
[2022-08-16] MEDS: DULoxetine HCL 60 MG CAPSULE.DR PO SCH (08:26)
[2022-08-16] MEDS: GABAPENTIN 400 MG CAP PO SCH ×2 (08:26→20:14)
[2022-08-16] MEDS: METOPROLOL SUCCINATE (ER) 25 MG TAB.ER.24H PO SCH (08:27)
[2022-08-16] MEDS: predniSONE 20 MG TAB PO SCH (08:27)
[2022-08-16] MEDS: ASPIRIN 81 MG PO SCH (08:27)
[2022-08-16] MEDS: NICOTINE 21MG/24HR PATCH TRANSDERM SCH (08:27)
[2022-08-16] MEDS: ATORVASTATIN 80 MG TAB PO SCH (08:27)
[2022-08-16] MEDS: amLODIPine 5 MG TAB PO SCH (08:27)
[2022-08-16] MEDS: lisinopriL 20 MG TAB PO SCH (08:27)
[2022-08-16] MEDS: TAMSULOSIN 0.4 MG CAP.ER.24H PO SCH (08:27)
[2022-08-16] MEDS: ENOXAPARIN 40 MG/0.4 ML SYRINGE SQ SCH (08:27)
[2022-08-16] MEDS: PIPERACILLIN-TAZOBACTAM 3.375 GM in SODIUM CHLORIDE 0.9% 100 ML IVPB SCH ×2 (09:14→17:32)
--- NOTE | 2022-08-16 10:17 | P.PN ---
Subjective Progress Note Date: 08/16/22 Baldev Joyce, is a 72 -year-old male who presented to [facility] emergency room with a chief complaint of fever and worsening shortness of breath, and decreased O2 sat duration to 80% on room air at home . patient was recently admitted to the hospital with pneumonia, he was admitted on 0 07/12/2022 and was discharged on 07/14/2022 his diagnosis at that time was left lower lobe pneumonia and COPD exacerbation, at that time he received a course of Levaquin and was discharged home on oral Levaquin. He was evaluated in the emergency room vital examination on presentation revealed a temperature of 99.9 pulse 89 respiration 20 blood pressure 116/59 pulse ox 94% on 4 L nasal cannula Laboratory data revealed a white blood count of 15.3 hemoglobin 11.1 platelet count 368 BUN 34 creatinine 0.85 Testing in the emergency room revealed chest x-ray done in the emergency room revealed new acute infiltrate in the right midlung, EKG revealed sinus rhythm with sinus arrhythmia and borderline right axis deviation. Patient was admitted to medical floor for further evaluation and treatment. Past medical history is significant for history of COPD, history of hypertension, history of hyperlipidemia, history of peripheral arterial disease, and history of continued tobacco abuse. Patient also has a known history of left above-knee amputation. On 08/14/2022 she is alert and oriented 3. Patient reports improvement with cough and shortness of breath. Patient still having significant wheezing upon auscultation. Patient remains on IV Zosyn. Pulmonary and infectious disease services will be consulted. Current vital signs temp 98.7, heart rate 69, respiratory rate 18, blood pressure 145/71, pulse ox 95% on 4 L On 08/15/2022 patient was seen and examined on the medical floor he is alert and oriented 3 in no apparent distress he is still complaining of cough with sputum production he is also complaining of shortness of breath with any activity otherwise he denies any complaints there is no fever or chills no headache or dizziness no chest pain no palpitation no nausea or vomiting no abdominal pain no diarrhea no blood in the stools no burning with urination no frequency or u rgency no hematuria. He is asking for a sleeping aid. On 08/16/2022 patient is alert and oriented 3. Is still having some cough and sputum production. He Zosyn pulmonary and infectious disease services are following. Current vital signs temp 97.7, heart rate 70, respiratory rate 18, blood pressure 165/90 with pulse ox 97% on 4 L. Objective - Vital Signs Vital signs: Vital Signs Temp 97.7 F 08/16/22 07:19 Pulse 72 08/16/22 07:48 Resp 18 08/16/22 07:19 BP 165/90 08/16/22 07:19 Pulse Ox 97 08/16/22 07:35 FiO2 Intake & Output 08/15/22 08/16/22 08/16/22 18:59 06:59 18:59 Other: Voiding Method Urinal # Voids 2 4 # Bowel Movements 1 - Exam In general patient is alert and oriented x 3 in no distress HEENT head normocephalic and atraumatic Neck is supple no JVD no goiter no lymphadenopathy no carotid bruit Chest examination reveals a crackles in both lung michel with wheezing Cardiac exam reveals regular heart sounds S1 and S2 no gallops no murmurs Abdomen is soft nontender no organomegaly with normal bowel sounds Extremity exam reveals no edema no cyanosis or clubbing, left hwphg-mxp-bhyc amputation Neurological examination reveals no gross focal deficits - Labs CBC & Chem 7: 08/15/22 06:20 08/15/22 06:20 Labs: Microbiology - Last 24 Hours (Table) 08/13/22 21:12 Gram Stain - Final Sputum Sputum Culture - Final 08/13/22 13:00 Blood Culture - Preliminary Blood 08/13/22 13:19 Blood Culture - Preliminary Blood Assessment and Plan Assessment: Pneumonia, community-acquired, versus hospital acquired, he was started on IV Zosyn in the emergency room, he is ALLERGIC to Zithromax Underlying history of COPD Chronic tobacco abuse Underlying history of peripheral vascular disease, with history of left omhgx-erg-jdec amputation Underlying history of hypertension Underlying history of hyperlipidemia At this time patient is admitted to medical floor Home medications reviewed and reordered Sputum for culture and Gram stain Continue with IV Zosyn at this time Counseled regarding smoking and vaping cessation Pulmonary and infectious disease service is consulted Pulmonary consultation Will follow closely
--- NOTE | 2022-08-16 13:04 | P.PN ---
Subjective Progress Note Date: 08/16/22 72-year-old male with an extensive tobacco history, a 55 years, 2-3 packs a day, comes into the emergency room on August 13 complaining of shortness of breath, low saturations, and rapid heart rate. The patient has a history of COPD. He was recently inpatient, and was seen in July, by one of my partners. His primary care physician is Dr. Barrientos. The patient was seen in the emergency room admitted with a diagnosis of COPD exacerbation, possible right-sided pneumonia. The patient does use home oxygen, at 3 L. As mentioned, he smoked for 55 years, at 2-3 packs a day, although he quit about 1 year ago. Currently, he is on 4 L of oxygen, and was receiving Zosyn. He states that his saturations are down in the low 80s, and his heart rate was above 120. At home, he uses an albuterol inhaler, and a Symbicort inhaler. Currently, he is getting saline at 20 mL an hour. His medical history includes COPD, diabetes, hypertension, myocardial infarction, osteoarthritis, migraine cephalgia, shingles, Ki's gangrene , chronic back pain, and a high left sunps-sbp-pxei amputation, 2009. White count 12.51, hemoglobin 10.1, hematocrit 33.5, and platelet count 341,000. Sodium 140, potassium 4.6, chlorides 102, CO2 27, BUN 33, and creatinine 1.1. Chest x- ray shows changes of COPD, possible infiltrate in the right midlung, and possible pulmonary nodules in the right upper lobe. Many of these changes could be chronic in nature. The patient is seen today 08/15/2022 in follow-up on the regular medical floor. He is currently sitting up in bed. Awake alert no acute distress. Continues with a productive cough with yellow sputum. Sputum culture pending. He is maintaining good O2 saturations in the 90s on 4 L/m per nasal cannula. He has normal saline at 20 miles per hour. He is still somewhat bronchospastic and wheezing. Procalcitonin 0.42. He remains on Zosyn. Continued on DuoNeb inhalations, Symbicort, prednisone taper. The patient is seen today 08/16/2022 in follow-up on the regular medical floor. He is currently resting comfortably in bed. Awake and alert in no acute d istress. Maintaining good O2 saturations in the 90s on 4 L/m per nasal cannula. He does wear home oxygen at 3 L. No IV fluids. Continued on DuoNeb inhalations, Symbicort, prednisone taper. Antibiotics in the form of Zosyn. Pro-calcitonin was 0.42. Lovenox for DVT prophylaxis. NicoDerm patch in place. Objective - Vital Signs Vital signs: Vital Signs Temp 97.7 F 08/16/22 07:19 Pulse 72 08/16/22 07:48 Resp 18 08/16/22 07:19 BP 165/90 08/16/22 07:19 Pulse Ox 97 08/16/22 07:35 FiO2 Intake & Output 08/15/22 08/16/22 08/16/22 18:59 06:59 18:59 Other: Voiding Method Urinal # Voids 2 4 # Bowel Movements 1 - Exam GENERAL EXAM: Alert, 72-year-old male, on 4 L nasal cannula, comfortable in no apparent distress. HEAD: Normocephalic. EYES: Normal reaction of pupils, equal size. NOSE: Clear with pink turbinates. THROAT: No erythema or exudates. NECK: No masses, no JVD. CHEST: No chest wall deformity. LUNGS: Equal air entry with bilateral wheeze, few scattered rhonchi. CVS: S1 and S2 normal with no audible murmur, regular rhythm. ABDOMEN: No hepatosplenomegaly, normal bowel sounds, no guarding or rigidity. SPINE: No scoliosis or deformity SKIN: No rashes CENTRAL NERVOUS SYSTEM: No focal deficits, tone is normal in all 4 extremities. EXTREMITIES: Left nehrk-gnc-zxwf amputation. There is no peripheral edema. No clubbing, no cyanosis. Peripheral pulses are intact. - Labs CBC & Chem 7: 08/15/22 06:20 08/15/22 06:20 Labs: Microbiology - Last 24 Hours (Table) 08/13/22 21:12 Gram Stain - Final Sputum Sputum Culture - Final 08/13/22 13:00 Blood Culture - Preliminary Blood 08/13/22 13:19 Blood Culture - Preliminary Blood Assessment and Plan Assessment: Acute exacerbation of COPD, with worsening hypoxemia. Possible purulent tracheobronchitis. Pro-calcitonin 0.42. Currently on Zosyn History of heavy tobacco use, for 55 years, at 2-3 packs a day History of diabetes mellitus History of hypertension History of myocardial infarction, with previous PCI and stent placement Peripheral vascular occlusive disease, status post high left above-knee amputation, 2009 History of migraine cephalgia History of shingles Ki's gangrene Prior history of MRSA infection Plan: The patient was seen and evaluated Medications reviewed Continue the current treatment plan Titrate the FiO2 as tolerated Educated regarding importance of complete smoking cessation NicoDerm patch in place We will continue to follow I have personally seen and examined the patient, performed the documentation and the assessment and plan as written. Number of minutes spent on the visit: 10.
--- NOTE | 2022-08-16 13:16 | P.PN ---
Subjective Progress Note Date: 08/16/22 Baldev Joyce, is a 72 -year-old male who presented to [facility] emergency room with a chief complaint of fever and worsening shortness of breath, and decreased O2 sat duration to 80% on room air at home . patient was recently admitted to the hospital with pneumonia, he was admitted on 07/12/2022 and was discharged on 07/14/2022 his diagnosis at that time was left lower lobe pneumonia and COPD exacerbation, at that time he received a course of Levaquin and was discharged home on oral Levaquin. He was evaluated in the emergency room vital examination on presentation revealed a temperature of 99.9 pulse 89 respiration 20 blood pressure 116/59 pulse ox 94% on 4 L nasal cannula Laboratory data revealed a white blood count of 15.3 hemoglobin 11.1 platelet count 368 BUN 34 creatinine 0.85 Testing in the emergency room revealed chest x-ray done in the emergency room revealed new acute infiltrate in the right midlung, EKG revealed sinus rhythm with sinus arrhythmia and borderline right axis deviation. Patient was admitted to medical floor for further evaluation and treatment. Past medical history is significant for history of COPD, history of hypertension, history of hyperlipidemia, history of peripheral arterial disease, and history of continued tobacco abuse. Patient also has a known history of left above-knee amputation. On 08/14/2022 she is alert and oriented 3. Patient reports improvement with cough and shortness of breath. Patient still having significant wheezing upon auscultation. Patient remains on IV Zosyn. Pulmonary and infectious disease services will be consulted. Current vital signs temp 98.7, heart rate 69, respiratory rate 18, blood pressure 145/71, pulse ox 95% on 4 L On 08/15/2022 patient was seen and examined on the medical floor he is alert and oriented 3 in no apparent distress he is still complaining of cough with sputum production he is also complaining of shortness of breath with any activity otherwise he denies any complaints there is no fever or chills no headache or dizziness no chest pain no palpitation no nausea or vomiting no abdominal pain no diarrhea no blood in the stools no burning with urination no frequency or urgency no hematuria. He is asking for a sleeping aid. On 08/16/2022 patient is alert and oriented 3. Is still having some cough and sputum production. He Zosyn pulmonary and infectious disease services are following. Current vital signs temp 97.7, heart rate 70, respiratory rate 18, blood pressure 165/90 with pulse ox 97% on 4 L. Objective - Vital Signs Vital signs: Vital Signs Temp 97.7 F 08/16/22 07:19 Pulse 72 08/16/22 07:48 Resp 18 08/16/22 07:19 BP 165/90 08/16/22 07:19 Pulse Ox 97 08/16/22 07:35 FiO2 Intake & Output 08/15/22 08/16/22 08/16/22 18:59 06:59 18:59 Other: Voiding Method Urinal # Voids 2 4 # Bowel Movements 1 - Exam In general patient is alert and oriented x 3 in no distress HEENT head normocephalic and atraumatic Neck is supple no JVD no goiter no lymphadenopathy no carotid bruit Chest examination reveals a crackles in both lung michel with wheezing Cardiac exam reveals regular heart sounds S1 and S2 no gallops no murmurs Abdomen is soft nontender no organomegaly with normal bowel sounds Extremity exam reveals no edema no cyanosis or clubbing, left akghq-cvf-kuph amputation Neurological examination reveals no gross focal deficits - Labs CBC & Chem 7: 08/15/22 06:20 08/15/22 06:20 Labs: Microbiology - Last 24 Hours (Table) 08/13/22 21:12 Gram Stain - Final Sputum Sputum Culture - Final 08/13/22 13:00 Blood Culture - Preliminary Blood 08/13/22 13:19 Blood Culture - Preliminary Blood Assessment and Plan Plan: Pneumonia, community-acquired, versus hospital acquired, he was started on IV Zosyn in the emergency room, he is ALLERGIC to Zithromax Underlying history of COPD Chronic tobacco abuse Underlying history of peripheral vascular disease, with history of left jdwgb-fto-uxpw amputation Underlying history of hypertension Underlying history of hyperlipidemia At this time patient is admitted to medical floor Home medications reviewed and reordered Sputum for culture and Gram stain Continue with IV Zosyn at this time Counseled regarding smoking and vaping cessation Pulmonary and infectious disease service is consulted Pulmonary consultation Will follow closely
[2022-08-16] MEDS ORDERED: TETRAHYDROZOLINE 0.05% OPHTH DROPS 15 ML BTL BOTH EYES PRN (13:38)
--- NOTE | 2022-08-16 16:33 | P.PN ---
Subjective Progress Note Date: 08/16/22 Principal diagnosis: Pneumonia Patient is a 72-year-old male with a past medical history significant for COPD patient did have a history of PAD and the patient is status post left nrrgy-duc-jeok amputation patient presenting to the ER for evaluation of increasing shortness of breath , CT of the chest did shows right mid lung infiltrate concerning for pneumonia. On today's evaluation that is 08/16/2022, the patient remains to be afebrile, the patient is breathing comfortably on 4 L nasal cannula oxygen , the patient cough is decreased intensity no chest pain, no nausea no vomiting no abdominal pain or diarrhea Objective - Vital Signs Vital signs: Vital Signs Temp 97.7 F 08/16/22 13:36 Pulse 72 08/16/22 13:36 Resp 18 08/16/22 13:36 BP 108/55 08/16/22 13:36 Pulse Ox 94 L 08/16/22 13:36 FiO2 Intake & Output 08/15/22 08/16/22 08/16/22 18:59 06:59 18:59 Other: Voiding Method Urinal # Voids 2 4 # Bowel Movements 1 - Exam GENERAL DESCRIPTION: An elderly male lying in bed in no distress RESPIRATORY SYSTEM: Unlabored breathing , decreased breath sounds at bases HEART: S1 S2 regular rate and rhythm , ABDOMEN: Soft , no tenderness EXTREMITIES: Right lower extremity minimal erythema but no warmth - Labs CBC & Chem 7: 08/15/22 06:20 08/15/22 06:20 Labs: Microbiology - Last 24 Hours (Table) 08/13/22 21:12 Gram Stain - Final Sputum Sputum Culture - Final 08/13/22 13:00 Blood Culture - Preliminary Blood 08/13/22 13:19 Blood Culture - Preliminary Blood Assessment and Plan (1) Pneumonia Current Visit: Yes Status: Acute Code(s): J18.9 - PNEUMONIA, UNSPECIFIED ORGANISM SNOMED Code(s): 920917153 Plan: 1patient was in the hospital with increasing shortness of breath he did have low-grade fever elevated white count chest x-ray with the right midlung acute infiltrate concerning for pneumonia in this patient with a history of COPD has been out of the hospital we will need to cover for resistant gram-negative to be the likely pathogen 2-sputum culture has been obtained so far negative 3-patient seemed to have her clinical improvement the patient white count has normalized, patient to continue with Zosyn 3.375 g every 8-hour, with a plan to finish therapy with oral antibiotics Time with Patient: Less than 30
[2022-08-16] MEDS: traZODone HCL 50 MG TAB PO SCH (20:14)
[2022-08-16] MEDS: MELATONIN 3 MG TABLET PO SCH (20:14)
[2022-08-16] MEDS: PRIMIDONE 50 MG TAB PO SCH (20:14)
[2022-08-17] MEDS: PIPERACILLIN-TAZOBACTAM 3.375 GM in SODIUM CHLORIDE 0.9% 100 ML IVPB SCH ×3 (00:13→16:03)
[2022-08-17] MEDS: predniSONE 20 MG TAB PO SCH (07:56)
[2022-08-17] MEDS: PANTOPRAZOLE 40 MG TABLET PO SCH (07:56)
[2022-08-17] MEDS: ASPIRIN 81 MG PO SCH (07:56)
[2022-08-17] MEDS: GABAPENTIN 400 MG CAP PO SCH ×2 (07:57→20:57)
[2022-08-17] MEDS: lisinopriL 20 MG TAB PO SCH (07:57)
[2022-08-17] MEDS: LORATADINE 10 MG TAB PO SCH (07:57)
[2022-08-17] MEDS: ATORVASTATIN 80 MG TAB PO SCH (07:57)
[2022-08-17] MEDS: HYDROcodone/APAP 10-325MG 1 EACH TAB PO PRN ×3 (07:57→20:57)
[2022-08-17] MEDS: DULoxetine HCL 60 MG CAPSULE.DR PO SCH (07:57)
[2022-08-17] MEDS: amLODIPine 5 MG TAB PO SCH (07:57)
[2022-08-17] MEDS: METOPROLOL SUCCINATE (ER) 25 MG TAB.ER.24H PO SCH (07:57)
[2022-08-17] MEDS: ENOXAPARIN 40 MG/0.4 ML SYRINGE SQ SCH (07:58)
[2022-08-17] MEDS: ESCITALOPRAM 10 MG TAB PO SCH (07:58)
[2022-08-17] MEDS: NICOTINE 21MG/24HR PATCH TRANSDERM SCH (07:58)
[2022-08-17] MEDS: TAMSULOSIN 0.4 MG CAP.ER.24H PO SCH (07:58)
[2022-08-17] MEDS: LIDOCAINE 5% PATCH TOPICAL SCH (08:01)
[2022-08-17] MEDS: SYMBICORT 160-4.5 MCG INHALER INHALATION SCH ×2 (08:23→20:07)
[2022-08-17] MEDS: IPRATROPIUM-ALBUTEROL 3 ML NEB INHALATION SCH ×4 (08:23→20:07)
[2022-08-17 09:01] LABS: Basophils # (A) 0.03 X 10*3/uL (0.00-0.10); Basophils % (A) 0.4 %; Eosinophils # (A) 0.08 X 10*3/uL (0.04-0.35); Eosinophils % (A) 1.1 %; HCT 31.6 % (39.6-50.0); HGB 9.8 g/dL (13.0-17.0); Immature Grans, Automated 1.3 %; Lymphocytes # (A) 1.33 X 10*3/uL (0.90-5.00); Lymphocytes % (A) 18.9 %; MCH 26.5 pg (27.0-32.0); MCV 85.4 fL (80.0-97.0); Monocytes # (A) 0.41 X 10*3/uL (0.20-1.00); Monocytes % (A) 5.8 %; NRBC Per 100 WBC 0 /100 WBCS (0.0-0.0); Neutrophils # (A) 5.08 X 10*3/uL (1.80-7.70); Neutrophils % (A) 72.5 %; Platelet Count 340 X 10*3/uL (140-440); WBC 7.02 X 10*3/uL (4.50-10.00)
[2022-08-17 09:20] LABS: ALT 17 U/L (10-49); AST 16 U/L (14-35); Albumin 2.8 g/dL (3.8-4.9); Albumin/Globulin Ratio 1.22 (1.60-3.17); Alkaline Phosphatase 51 U/L (41-126); BUN/Creat Ratio 29.88 Ratio (12.00-20.00); Blood Urea Nitrogen 23.9 mg/dL (9.0-27.0); Calcium 8.6 mg/dL (8.7-10.3); Chloride 104 mmol/L (96-109); Globulin 2.3 g/dL (1.6-3.3); Glucose 129 mg/dL (70-110); Potassium 4.2 mmol/L (3.5-5.5); Sodium 139 mmol/L (135-145); Total Bilirubin <0.15 mg/dL (0.30-1.20); Total Protein 5.1 g/dL (6.2-8.2)
--- NOTE | 2022-08-17 11:29 | P.PN ---
Subjective Progress Note Date: 08/17/22 72-year-old male with an extensive tobacco history, a 55 years, 2-3 packs a day, comes into the emergency room on August 13 complaining of shortness of breath, low saturations, and rapid heart rate. The patient has a history of COPD. He was recently inpatient, and was seen in July, by one of my partners. His primary care physician is Dr. Barrientos. The patient was seen in the emergency room admitted with a diagnosis of COPD exacerbation, possible right-sided pneumonia. The patient does use home oxygen, at 3 L. As mentioned, he smoked for 55 years, at 2-3 packs a day, although he quit about 1 year ago. Currently, he is on 4 L of oxygen, and was receiving Zosyn. He states that his saturations are down in the low 80s, and his heart rate was above 120. At home, he uses an albuterol inhaler, and a Symbicort inhaler. Currently, he is getting saline at 20 mL an hour. His medical history includes COPD, diabetes, hypertension, myocardial infarction, osteoarthritis, migraine cephalgia, shingles, Ki's gangrene , chronic back pain, and a high left xkpqj-yrz-sufu amputation, 2009. White count 12.51, hemoglobin 10.1, hematocrit 33.5, and platelet count 341,000. Sodium 140, potassium 4.6, chlorides 102, CO2 27, BUN 33, and creatinine 1.1. Chest x- ray shows changes of COPD, possible infiltrate in the right midlung, and possible pulmonary nodules in the right upper lobe. Many of these changes could be chronic in nature. The patient is seen today 08/15/2022 in follow-up on the regular medical floor. He is currently sitting up in bed. Awake alert no acute distress. Continues wi th a productive cough with yellow sputum. Sputum culture pending. He is maintaining good O2 saturations in the 90s on 4 L/m per nasal cannula. He has normal saline at 20 miles per hour. He is still somewhat bronchospastic and wheezing. Procalcitonin 0.42. He remains on Zosyn. Continued on DuoNeb inhalations, Symbicort, prednisone taper. The patient is seen today 08/16/2022 in follow-up on the regular medical floor. He is currently resting comfortably in bed. Awake and alert in no acute distress. Maintaining good O2 saturations in the 90s on 4 L/m per nasal cannula. He does wear home oxygen at 3 L. No IV fluids. Continued on DuoNeb inhalations, Symbicort, prednisone taper. Antibiotics in the form of Zosyn. Pro-calcitonin was 0.42. Lovenox for DVT prophylaxis. NicoDerm patch in place. On today's evaluation of 08/17/2022, the patient is doing well. He states that he is gradually improving. He is known to have advanced COPD with chronic hypoxic respiratory failure. He has been hospitalized for an acute tracheobronchitis and suspected pneumonia. I had the chest also to review his most recent CAT scan of the chest from 07/13/2022. The patient has extensive emphysema with upper lobe predominance. Back then, he has also a left lower lobe pneumonia. Currently, he's feeling well. He has Symbicort at home and addition to a nebulizer. He also has oxygen. The white cell count is at 7 with a hemoglobin of 9.8. Electrolytes are normal. BUN is at 23 with a creatinine of 0.8. LFTs are normal. Pro-calcitonin level is at 0.42, slightly elevated. Otherwise, he is afebrile. Oxygen levels currently is at 4 L nasal cannula. He remains on bronchodilators. He is also on Symbicort. He is on nicotine patch. He is on IV Zosyn. He is also on a prednisone burst taper. Objective - Vital Signs Vital signs: Vital Signs Temp 98.4 F 08/17/22 07:13 Pulse 68 08/17/22 08:37 Resp 16 08/17/22 09:43 BP 174/93 08/17/22 07:13 Pulse Ox 96 08/17/22 08:24 FiO2 Intake & Output 08/16/22 08/17/22 08/17/22 18:59 06:59 18:59 Intake Total 440 Balance 440 Intake: Oral 440 Other: Voiding Method Urinal # Voids 5 2 # Bowel Movements 1 - Exam GENERAL EXAM: Alert, 72-year-old male, on 4 L nasal cannula, comfortable in no apparent distress. HEAD: Normocephalic. EYES: Normal reaction of pupils, equal size. NOSE: Clear with pink turbinates. THROAT: No erythema or exudates. NECK: No masses, no JVD. CHEST: No chest wall deformity. LUNGS: Equal air entry with bilateral wheeze, few scattered rhonchi. CVS: S1 and S2 normal with no audible murmur, regular rhythm. ABDOMEN: No hepatosplenomegaly, normal bowel sounds, no guarding or rigidity. SPINE: No scoliosis or deformity SKIN: No rashes CENTRAL NERVOUS SYSTEM: No focal deficits, tone is normal in all 4 extremities. EXTREMITIES: Left ttzli-esq-yysq amputation. There is no peripheral edema. No clubbing, no cyanosis. Peripheral pulses are intact. - Labs CBC & Chem 7: 08/17/22 05:43 08/17/22 05:43 Labs: Abnormal Lab Results - Last 24 Hours (Table) 08/17/22 08/17/22 Range/Units 05:43 05:43 RBC 3.70 L (4.40-5.60) X 10*6/uL Hgb 9.8 L (13.0-17.0) g/dL Hct 31.6 L (39.6-50.0) % MCH 26.5 L (27.0-32.0) pg MCHC 31.0 L (32.0-37.0) g/dL RDW 18.0 H (11.5-14.5) % Immature Gran # 0.09 H (0.00-0.04) X 10*3/uL Anion Gap 8.00 L (10.00-18.00) mmol/L BUN/Creatinine Ratio 29.88 H (12.00-20.00) Ratio Glucose 129 H (70-110) mg/dL Calcium 8.6 L (8.7-10.3) mg/dL Total Bilirubin <0.15 L (0.30-1.20) mg/dL Total Protein 5.1 L (6.2-8.2) g/dL Albumin 2.8 L (3.8-4.9) g/dL Albumin/Globulin Ratio 1.22 L (1.60-3.17) g/dL Microbiology - Last 24 Hours (Table) 08/13/22 13:00 Blood Culture - Preliminary Blood 08/13/22 13:19 Blood Culture - Preliminary Blood 08/13/22 21:12 Gram Stain - Final Sputum Sputum Culture - Final Assessment and Plan Plan: Acute exacerbation of COPD, with worsening hypoxemia. Possible purulent tracheobronchitis. Pro-calcitonin 0.42. Currently on Zosyn History of heavy tobacco use, for 55 years, at 2-3 packs a day History of diabetes mellitus History of hypertension History of myocardial infarction, with previous PCI and stent placement Peripheral vascular occlusive disease, status post high left above-knee amputation, 2009 History of migraine cephalgia History of shingles Ki's gangrene Prior history of MRSA infection Plan: The patient can be discharged home within the next 24-48 hours on an oral antibiotic. Prednisone burst taper. Continue Symbicort and he may be switched to Trelegy Ellipta on outpatient basis Titrate the FiO2 as tolerated Educated regarding importance of complete smoking cessation NicoDerm patch in place We will continue to follow
--- NOTE | 2022-08-17 11:41 | P.PN ---
Subjective Progress Note Date: 08/17/22 Principal diagnosis: Pneumonia Patient is a 72-year-old male with a past medical history significant for COPD patient did have a history of PAD and the patient is status post left wkukx-awm-olrd amputation patient presenting to the ER for evaluation of increasing shortness of breath , CT of the chest did shows right mid lung infiltrate concerning for pneumonia. On today's evaluation that is 08/17/2022, the patient continues to be afebrile, the patient is breathing comfortably on 4 L nasal cannula oxygen , the patient complaining of slightly feeling weak today, the patient cough is decreased intensity no chest pain, no nausea no vomiting no abdominal pain or diarrhea Objective - Vital Signs Vital signs: Vital Signs Temp 98.4 F 08/17/22 07:13 Pulse 68 08/17/22 08:37 Resp 16 08/17/22 09:43 BP 174/93 08/17/22 07:13 Pulse Ox 96 08/17/22 08:24 FiO2 Intake & Output 08/16/22 08/17/22 08/17/22 18:59 06:59 18:59 Intake Total 440 Balance 440 Intake: Oral 440 Other: Voiding Method Urinal # Voids 5 2 # Bowel Movements 1 - Exam GENERAL DESCRIPTION: An elderly male lying in bed in no distress RESPIRATORY SYSTEM: Unlabored breathing , decreased breath sounds at bases HEART: S1 S2 regular rate and rhythm , ABDOMEN: Soft , no tenderness EXTREMITIES: Right lower extremity minimal erythema but no warmth - Labs CBC & Chem 7: 08/17/22 05:43 08/17/22 05:43 Labs: Abnormal Lab Results - Last 24 Hours (Table) 08/17/22 08/17/22 Range/Units 05:43 05:43 RBC 3.70 L (4.40-5.60) X 10*6/uL Hgb 9.8 L (13.0-17.0) g/dL Hct 31.6 L (39.6-50.0) % MCH 26.5 L (27.0-32.0) pg MCHC 31.0 L (32.0-37.0) g/dL RDW 18.0 H (11.5-14.5) % Immature Gran # 0.09 H (0.00-0.04) X 10*3/uL Anion Gap 8.00 L (10.00-18.00) mmol/L BUN/Creatinine Ratio 29.88 H (12.00-20.00) Ratio Glucose 129 H (70-110) mg/dL Calcium 8.6 L (8.7-10.3) mg/dL Total Bilirubin <0.15 L (0.30-1.20) mg/dL Total Protein 5.1 L (6.2-8.2) g/dL Albumin 2.8 L (3.8-4.9) g/dL Albumin/Globulin Ratio 1.22 L (1.60-3.17) g/dL Microbiology - Last 24 Hours (Table) 08/13/22 13:00 Blood Culture - Preliminary Blood 08/13/22 13:19 Blood Culture - Preliminary Blood 08/13/22 21:12 Gram Stain - Final Sputum Sputum Culture - Final Assessment and Plan (1) Pneumonia Current Visit: Yes Status: Acute Code(s): J18.9 - PNEUMONIA, UNSPECIFIED ORGANISM SNOMED Code(s): 123603942 Plan: 1patient was in the hospital with increasing shortness of breath he did have low-grade fever elevated white count chest x-ray with the right midlung acute infiltrate concerning for pneumonia in this patient with a history of COPD has been out of the hospital we will need to cover for resistant gram-negative to be the likely pathogen 2--patient has shown clinical improvement the patient white count has normalized, sputum culture have been negative for resistant pathogen, patient to continue with Zosyn 3.375 g every 8-hour, with a plan to finish therapy with oral Augmentin Time with Patient: Less than 30
--- NOTE | 2022-08-17 18:28 | P.PN ---
Subjective Progress Note Date: 08/17/22 Baldev Joyce, is a 72 -year-old male who presented to [facility] emergency room with a chief complaint of fever and worsening shortness of breath, and decreased O2 sat duration to 80% on room air at home . patient was recently admitted to the hospital with pneumonia, he was admitted on 07/12/2022 and was discharged on 07/14/2022 his diagnosis at that time was left lower lobe pneumonia and COPD exacerbation, at that time he received a course of Levaquin and was discharged home on oral Levaquin. He was evaluated in the emergency room vital examination on presentation revealed a temperature of 99.9 pulse 89 respiration 20 blood pressure 116/59 pulse ox 94% on 4 L nasal cannula Laboratory data revealed a white blood count of 15.3 hemoglobin 11.1 platelet count 368 BUN 34 creatinine 0.85 Testing in the emergency room revealed chest x-ray done in the emergency room revealed new acute infiltrate in the right midlung, EKG revealed sinus rhythm with sinus arrhythmia and borderline right axis deviation. Patient was admitted to medical floor for further evaluation and treatment. Past medical history is significant for history of COPD, history of hypertension, history of hyperlipidemia, history of peripheral arterial disease, and history of continued tobacco abuse. Patient also has a known history of left above-knee amputation. On 08/14/2022 she is alert and oriented 3. Patient reports improvement with cough and shortness of breath. Patient still having significant wheezing upon auscultation. Patient remains on IV Zosyn. Pulmonary and infectious disease services will be consulted. Current vital signs temp 98.7, heart rate 69, respiratory rate 18, blood pressure 145/71, pulse ox 95% on 4 L On 08/15/2022 patient was seen and examined on the medical floor he is alert and oriented 3 in no apparent distress he is still complaining of cough with sputum production he is also complaining of shortness of breath with any activity otherwise he denies any complaints there is no fever or chills no headache or dizziness no chest pain no palpitation no nausea or vomiting no abdominal pain no diarrhea no blood in the stools no burning with urination no frequency or urgency no hematuria. He is asking for a sleeping aid. On 08/16/2022 patient is alert and oriented 3. Is still having some cough and sputum production. He Zosyn pulmonary and infectious disease services are following. Current vital signs temp 97.7, heart rate 70, respiratory rate 18, blood pressure 165/90 with pulse ox 97% on 4 L. On 08/17/2022 patient was seen and examined on the medical floor he is alert and oriented 3 in no apparent distress he is still complaining of cough with sputum production he is also complaining of shortness of breath with any activity otherwise he denies any complaints there is no fever or chills no headache or dizziness no chest pain no palpitation no nausea or vomiting no abdominal pain no diarrhea no blood in the stools no burning with urination no frequency or urgency no hematuria. plan for discharge to home tomorrow if stable. Objective - Vital Signs Vital signs: Vital Signs Temp 99.3 F 08/17/22 14:00 Pulse 75 08/17/22 16:42 Resp 16 08/17/22 14:00 BP 119/64 08/17/22 14:00 Pulse Ox 92 L 08/17/22 14:00 FiO2 Intake & Output 08/16/22 08/17/22 08/17/22 18:59 06:59 18:59 Intake Total 440 480 Output Total 400 Balance 440 80 Intake: Oral 440 480 Output: Urine 400 Other: Voiding Method Urinal # Voids 5 2 # Bowel Movements 1 - Exam In general patient is alert and oriented x 3 in no distress HEENT head normocephalic and atraumatic Neck is supple no JVD no goiter no lymphadenopathy no carotid bruit Chest examination reveals a crackles in both lung michel with wheezing Cardiac exam reveals regular heart sounds S1 and S2 no gallops no murmurs Abdomen is soft nontender no organomegaly with normal bowel sounds Extremity exam reveals no edema no cyanosis or clubbing, left erpag-dii-zjvt amputation Neurological examination reveals no gross focal deficits - Labs CBC & Chem 7: 08/17/22 05:43 08/17/22 05:43 Labs: Abnormal Lab Results - Last 24 Hours (Table) 08/17/22 08/17/22 Range/Units 05:43 05:43 RBC 3.70 L (4.40-5.60) X 10*6/uL Hgb 9.8 L (13.0-17.0) g/dL Hct 31.6 L (39.6-50.0) % MCH 26.5 L (27.0-32.0) pg MCHC 31.0 L (32.0-37.0) g/dL RDW 18.0 H (11.5-14.5) % Immature Gran # 0.09 H (0.00-0.04) X 10*3/uL Anion Gap 8.00 L (10.00-18.00) mmol/L BUN/Creatinine Ratio 29.88 H (12.00-20.00) Ratio Glucose 129 H (70-110) mg/dL Calcium 8.6 L (8.7-10.3) mg/dL Total Bilirubin <0.15 L (0.30-1.20) mg/dL Total Protein 5.1 L (6.2-8.2) g/dL Albumin 2.8 L (3.8-4.9) g/dL Albumin/Globulin Ratio 1.22 L (1.60-3.17) g/dL Microbiology - Last 24 Hours (Table) 08/13/22 21:12 Legionella Culture - Preliminary Sputum 08/13/22 13:00 Blood Culture - Preliminary Blood 08/13/22 13:19 Blood Culture - Preliminary Blood Assessment and Plan Plan: Pneumonia, community-acquired, versus hospital acquired, he was started on IV Zosyn in the emergency room, he is ALLERGIC to Zithromax Underlying history of COPD Chronic tobacco abuse Underlying history of peripheral vascular disease, with history of left ab ahv-aay-bcbc amputation Underlying history of hypertension Underlying history of hyperlipidemia At this time patient is admitted to medical floor Home medications reviewed and reordered Sputum for culture and Gram stain Continue with IV Zosyn at this time Counseled regarding smoking and vaping cessation Pulmonary and infectious disease service is consulted Pulmonary consultation Will follow closely
[2022-08-17] MEDS: MELATONIN 3 MG TABLET PO SCH (20:57)
[2022-08-17] MEDS: PRIMIDONE 50 MG TAB PO SCH (20:57)
[2022-08-17] MEDS: traZODone HCL 50 MG TAB PO SCH (20:58)
[2022-08-18] MEDS: PIPERACILLIN-TAZOBACTAM 3.375 GM in SODIUM CHLORIDE 0.9% 100 ML IVPB SCH (00:06)
[2022-08-18] MEDS: SYMBICORT 160-4.5 MCG INHALER INHALATION SCH (08:19)
[2022-08-18] MEDS: IPRATROPIUM-ALBUTEROL 3 ML NEB INHALATION SCH ×3 (08:19→15:40)
[2022-08-18] MEDS: PANTOPRAZOLE 40 MG TABLET PO SCH (08:47)
[2022-08-18] MEDS: GABAPENTIN 400 MG CAP PO SCH (08:47)
[2022-08-18] MEDS: ASPIRIN 81 MG PO SCH (08:47)
[2022-08-18] MEDS: ENOXAPARIN 40 MG/0.4 ML SYRINGE SQ SCH (08:47)
[2022-08-18] MEDS: TAMSULOSIN 0.4 MG CAP.ER.24H PO SCH (08:47)
[2022-08-18] MEDS: ATORVASTATIN 80 MG TAB PO SCH (08:47)
[2022-08-18] MEDS: METOPROLOL SUCCINATE (ER) 25 MG TAB.ER.24H PO SCH (08:47)
[2022-08-18] MEDS: ESCITALOPRAM 10 MG TAB PO SCH (08:48)
[2022-08-18] MEDS: HYDROcodone/APAP 10-325MG 1 EACH TAB PO PRN (08:48)
[2022-08-18] MEDS: amLODIPine 5 MG TAB PO SCH (08:48)
[2022-08-18] MEDS: lisinopriL 20 MG TAB PO SCH (08:48)
[2022-08-18] MEDS: LORATADINE 10 MG TAB PO SCH (08:48)
[2022-08-18] MEDS: predniSONE 20 MG TAB PO SCH (08:48)
[2022-08-18] MEDS: LIDOCAINE 5% PATCH TOPICAL SCH (08:49)
[2022-08-18] MEDS: DULoxetine HCL 60 MG CAPSULE.DR PO SCH (08:49)
--- NOTE | 2022-08-18 11:28 | P.PN ---
Subjective Progress Note Date: 08/18/22 Principal diagnosis: Pneumonia Patient is a 72-year-old male with a past medical history significant for COPD patient did have a history of PAD and the patient is status post left [id number] amputation patient presenting to the ER for evaluation of increasing shortness of breath , CT of the chest did shows right mid lung infiltrate concerning for pneumonia. On today's evaluation that is 08/18/2022, the patient denies any fever or chills, the patient is breathing comfortably down to 3 L nasal cannula oxygen , the patient cough is decreased intensity no chest pain, no nausea no vomiting no abdominal pain or diarrhea Objective - Vital Signs Vital signs: Vital Signs Temp 98.2 F 08/18/22 07:15 Pulse 74 08/18/22 08:32 Resp 18 08/18/22 07:15 BP 180/98 08/18/22 07:15 Pulse Ox 94 L 08/18/22 08:22 FiO2 Intake & Output 08/17/22 08/18/22 08/18/22 18:59 06:59 18:59 Intake Total 480 Output Total 400 Balance 80 Intake: Oral 480 Output: Urine 400 Other: Voiding Method Urinal # Voids 2 2 # Bowel Movements 1 - Exam GENERAL DESCRIPTION: An elderly male lying in bed in no distress RESPIRATORY SYSTEM: Unlabored breathing , decreased breath sounds at bases HEART: S1 S2 regular rate and rhythm , ABDOMEN: Soft , no tenderness EXTREMITIES: Right lower extremity minimal erythema but no warmth - Labs CBC & Chem 7: 08/17/22 05:43 08/17/22 05:43 Labs: Microbiology - Last 24 Hours (Table) 08/13/22 13:00 Blood Culture - Preliminary Blood 08/13/22 13:19 Blood Culture - Preliminary Blood 08/13/22 21:12 Legionella Culture - Preliminary Sputum Assessment and Plan (1) Pneumonia Current Visit: Yes Status: Acute Code(s): J18.9 - PNEUMONIA, UNSPECIFIED ORGANISM SNOMED Code(s): 777483882 Plan: 1patient was in the hospital with increasing shortness of breath he did have low-grade fever elevated white count chest x-ray with the right midlung acute infiltrate concerning for pneumonia in this patient with a history of COPD has been out of the hospital we will need to cover for resistant gram-negative to be the likely pathogen 2--patient has shown clinical improvement the patient white count has normalized, sputum culture have been negative for resistant pathogen, patient to continue with Zosyn 3.375 g every 8-hour while inpatient however plan is to finish therapy with oral Augmentin and close outpatient follow-up Time with Patient: Less than 30
--- NOTE | 2022-08-18 12:03 | P.PN ---
Subjective Progress Note Date: 08/18/22 72-year-old male with an extensive tobacco history, a 55 years, 2-3 packs a day, comes into the emergency room on August 13 complaining of shortness of breath, low saturations, and rapid heart rate. The patient has a history of COPD. He was recently inpatient, and was seen in July, by one of my partners. His primary care physician is Dr. Barrientos. The patient was seen in the emergency room admitted with a diagnosis of COPD exacerbation, possible right-sided pneumonia. The patient does use home oxygen, at 3 L. As mentioned, he smoked for 55 years, at 2-3 packs a day, although he quit about 1 year ago. Currently, he is on 4 L of oxygen, and was receiving Zosyn. He states that his saturations are down in the low 80s, and his heart rate was above 120. At home, he uses an albuterol inhaler, and a Symbicort inhaler. Currently, he is getting saline at 20 mL an hour. His medical history includes COPD, diabetes, hypertension, myocardial infarction, osteoarthritis, migraine cephalgia, shingles, Ki's gangrene , chronic back pain, and a high left [id number] amputation, 2009. White count 12.51, hemoglobin 10.1, hematocrit 33.5, and platelet count 341,000. Sodium 140, potassium 4.6, chlorides 102, CO2 27, BUN 33, and creatinine 1.1. Chest x- ray shows changes of COPD, possible infiltrate in the right midlung, and possible pulmonary nodules in the right upper lobe. Many of these changes could be chronic in nature. The patient is seen today 08/15/2022 in follow-up on the regular medical floor. He is currently sitting up in bed. Awake alert no acute distress. Continues wi th a productive cough with yellow sputum. Sputum culture pending. He is maintaining good O2 saturations in the 90s on 4 L/m per nasal cannula. He has normal saline at 20 miles per hour. He is still somewhat bronchospastic and wheezing. Procalcitonin 0.42. He remains on Zosyn. Continued on DuoNeb inhalations, Symbicort, prednisone taper. The patient is seen today 08/16/2022 in follow-up on the regular medical floor. He is currently resting comfortably in bed. Awake and alert in no acute distress. Maintaining good O2 saturations in the 90s on 4 L/m per nasal cannula. He does wear home oxygen at 3 L. No IV fluids. Continued on DuoNeb inhalations, Symbicort, prednisone taper. Antibiotics in the form of Zosyn. Pro-calcitonin was 0.42. Lovenox for DVT prophylaxis. NicoDerm patch in place. On today's evaluation of 08/17/2022, the patient is doing well. He states that he is gradually improving. He is known to have advanced COPD with chronic hypoxic respiratory failure. He has been hospitalized for an acute tracheobronchitis and suspected pneumonia. I had the chest also to review his most recent CAT scan of the chest from 07/13/2022. The patient has extensive emphysema with upper lobe predominance. Back then, he has also a left lower lobe pneumonia. Currently, he's feeling well. He has Symbicort at home and addition to a nebulizer. He also has oxygen. The white cell count is at 7 with a hemoglobin of 9.8. Electrolytes are normal. BUN is at 23 with a creatinine of 0.8. LFTs are normal. Pro-calcitonin level is at 0.42, slightly elevated. Otherwise, he is afebrile. Oxygen levels currently is at 4 L nasal cannula. He remains on bronchodilators. He is also on Symbicort. He is on nicotine patch. He is on IV Zosyn. He is also on a prednisone burst taper. Today's evaluation of 08/18/2022, the patient is improved considerably. No new complaints. Less spastic and wheezy. Ambulating. Weak yet feels that he is back to his baseline. He is currently on a prednisone burst taper remains on bronchodilators. He is on Symbicort and he has been maintained on his home medications in addition to oxygen at3 L nasal cannula. His electrolytes are all stable. BUN is at 23 with a creatinine of 0.8. A white blood count of 7 with a hemoglobin of 9.8. Objective - Vital Signs Vital signs: Vital Signs Temp 98.2 F 08/18/22 07:15 Pulse 72 08/18/22 11:55 Resp 18 08/18/22 07:15 BP 180/98 08/18/22 07:15 Pulse Ox 94 L 08/18/22 08:22 FiO2 Intake & Output 08/17/22 08/18/22 08/18/22 18:59 06:59 18:59 Intake Total 480 Output Total 400 Balance 80 Intake: Oral 480 Output: Urine 400 Other: Voiding Method Urinal # Voids 2 2 # Bowel Movements 1 - Exam GENERAL EXAM: Alert, 72-year-old male, on 4 L nasal cannula, comfortable in no apparent distress. HEAD: Normocephalic. EYES: Normal reaction of pupils, equal size. NOSE: Clear with pink turbinates. THROAT: No erythema or exudates. NECK: No masses, no JVD. CHEST: No chest wall deformity. LUNGS: Equal air entry with bilateral wheeze, few scattered rhonchi. CVS: S1 and S2 normal with no audible murmur, regular rhythm. ABDOMEN: No hepatosplenomegaly, normal bowel sounds, no guarding or rigidity. SPINE: No scoliosis or deformity SKIN: No rashes CENTRAL NERVOUS SYSTEM: No focal deficits, tone is normal in all 4 extremities. EXTREMITIES: Left [id number] amputation. There is no peripheral edema. No clubbing, no cyanosis. Peripheral pulses are intact. - Labs CBC & Chem 7: 08/17/22 05:43 08/17/22 05:43 Labs: Microbiology - Last 24 Hours (Table) 08/13/22 13:00 Blood Culture - Preliminary Blood 08/13/22 13:19 Blood Culture - Preliminary Blood 08/13/22 21:12 Legionella Culture - Preliminary Sputum Assessment and Plan Plan: Acute exacerbation of COPD, with worsening hypoxemia. Possible purulent tracheobronchitis. Pro-calcitonin 0.42. Currently on Zosyn History of heavy tobacco use, for 55 years, at 2-3 packs a day History of diabetes mellitus History of hypertension History of myocardial infarction, with previous PCI and stent placement Peripheral vascular occlusive disease, status post high left above-knee amputation, 2009 History of migraine cephalgia History of shingles Ki's gangrene Prior history of MRSA infection Plan: The patient can be discharged home today on a Prednisone burst taper. Continue Symbicort and he may be switched to Trelegy Ellipta on outpatient basis Titrate the FiO2 as tolerated, currently on 3 L Educated regarding importance of complete smoking cessation NicoDerm patch in place We will continue to follow, possibly home today
[2022-08-18 14:58] VITALS: BP 145/53; PULSE 80; RESP 16; TEMP 97.8
--- NOTE | 2022-08-18 15:07 | P.DS ---
Providers Date of admission: 08/13/22 12:59 Expected date of discharge: 08/18/22 Attending physician: Fidencio Barrientos Consults: 08/14/22 10:41 Consult Physician Routine Consulting Provider: Linwood Dover Consult Reason/Comments: pneumonia Do you want consulting provider notified?: Yes 08/14/22 10:42 Consult Physician Routine Consulting Provider: Armando Davis Consult Reason/Comments: pneumonia Do you want consulting provider notified?: Yes Primary care physician: Fidencio [facility] Course: Diagnosis on discharge: Abdominal pain with computed tomography scan concern of bacterial peritonitis patient was started on IV antibiotics and admitted to medical floor infectious disease consultation requested Liver cirrhosis with large ascites Underlying history of atrial flutter maintained on Eliquis Underlying history of hypothyroidism Underlying history of hypertension Underlying history of asthma Hospital course: Shyanne Glover, he is a 40-year-old female, who presented to [facility] emergency room with a chief complaint of left lower quadrant abdominal pain that started at 3 PM on the day of presentation. She was evaluated in the emergency room vital examination on presentation revealed a temperature of 97.5 pulse 74 respiration 16 blood pressure 135/85 pulse ox 98% on room air Laboratory data revealed a white blood count of 4.3 hemoglobin 14.8 platelet count 124 sodium 136 potassium 4.3 chloride 101 CO2 24 BUN 21 creatinine 0.69 Testing in the emergency room revealed computed tomography scan of the abdomen and pelvis done in the emergency room revealed wall thickening of the small bowels with suspicion for spontaneous bacterial retune iritis and evidence of large volume abdominal and pelvic ascites. Patient was started on IV antibiotics and admitted to medical floor for further evaluation and treatment. Past medical history is significant for history of congenital heart disease, history of liver cirrhosis, history of atrial flutter, history of hypothyroidism, history of hypertension, history of asthma, and history of noncompliance with taking medications. On 08/14/2022 patient is alert and oriented 3. Patient reports some improvement with abdominal discomfort. Patient remains on IV Rocephin cardiology and interventional radiology consulted for possible paracentesis. Current vital signs temp 97.9, heart rate 58, blood pressure 92/61 with pulse ox 94% on room air. On 08/15/2022 patient was seen and examined on the medical floor she is alert and oriented 3 in no apparent distress she is still complaining of some abdominal discomfort otherwise she denies any complaints there is no fever or chills no headache or dizziness no chest pain no shortness of breath no cough no nausea or vomiting no abdominal pain no diarrhea no blood in the stools no burning with urination no frequency or urgency and no hematuria. Patient underwent paracentesis yesterday. At this time we are awaiting for culture results, she remains on IV Rocephin, infectious disease following. On 08/16/2022 patient is alert and oriented 3. Status post paracentesis. Patient remains on IV Rocephin. Patient reports improvement with abdominal pain has been tolerating diet. Current vital signs temp 97.5, heart rate 54, respiratory rate 18, blood pressure 91/59 with pulse ox 92% on room air On 08/17/2022 patient is alert and oriented 3. Status post paracentesis. Patient remains on IV Rocephin. Patient reports improvement with abdominal pain has been tolerating diet. Current vital signs temp 97.5, heart rate 54, respiratory rate 18, blood pressure 91/59 with pulse ox 92% on room air. patient is improving gradually possible discharge to home in the next 1-2 days On 08/18/2022 patient is alert and oriented 3. Status post paracentesis. Patient remains on IV Rocephin. Patient reports improvement with abdominal pain has been tolerating diet. Current vital signs temp 97.5, heart rate 54, respiratory rate 18, blood pressure 91/59 with pulse ox 92% on room air. Patient was cleared by pulmonary for discharge this morning he finished 5 days of IV Zosyn IV antibiotic were discontinued by pulmonary no need for more antibiotic per pulmonary. Patient was discharged home he was given a course of prednisone he will be followed in our office in 2-3 days Plan - Discharge Summary Discharge Rx Participant: No New Discharge Prescriptions: New Ipratropium-Albuterol Nebulize [Duoneb 0.5 mg-3 mg/3 ml Soln] 3 ml INHALATION RT-QID each predniSONE [Deltasone] 40 mg PO DAILY tab Continue Aspirin 81 mg PO DAILY DULoxetine HCL [Cymbalta] 60 mg PO DAILY lisinopriL [Prinivil] 20 mg PO DAILY Pantoprazole Sodium [Protonix] 40 mg PO DAILY Escitalopram [Lexapro] 10 mg PO DAILY amLODIPine [Norvasc] 5 mg PO DAILY Budesonide-Formot 160-4.5 Mcg [Symbicort 160-4.5 Mcg Inhaler] 2 puff INHALATION RT-BID Albuterol Sulfate [Proair Hfa] 2 puff INHALATION RT-QID PRN PRN Reason: Shortness Of Breath Gabapentin [Neurontin] 400 mg PO DAILY Gabapentin [Neurontin] 800 mg PO HS Primidone [Mysoline] 25 mg PO HS Baclofen [Lioresal] 10 mg PO DAILY PRN PRN Reason: Muscle Pain Nicotine 21Mg/24Hr Patch [Habitrol] 1 patch TRANSDERM DAILY #30 patch Nystatin 100,000Unit/gm Cream [Mycostatin Cream] 1 applic TOPICAL BID PRN PRN Reason: groin Nitroglycerin Sl Tabs [Nitrostat] 0.4 mg SL Q5M PRN PRN Reason: Chest Pain Atorvastatin [Lipitor] 80 mg PO DAILY #30 tab Metoprolol Succinate (ER) [Toprol XL] 25 mg PO DAILY #30 tab.er.24h Naloxone [Narcan] 1 mg SQ ONCE PRN PRN Reason: OVERDOSE Tamsulosin [Flomax] 0.4 mg PO DAILY traZODone HCL [Desyrel] 50 mg PO HS tab HYDROcodone/APAP 10-325MG [Athol 10-325] 1 tab PO Q6HR PRN PRN Reason: Pain Budesonide [Pulmicort] 1 mg INHALATION RT-BID 30 Days #60 each Albuterol Nebulized [Ventolin Nebulized] 2.5 mg INHALATION RT-Q2H PRN ml PRN Reason: Shortness Of Breath Or Wheezing SILVER sulfADIAZINE Cream [Silvadene 1% Cream] 1 applic TOPICAL DAILY Loratadine [Claritin] 10 mg PO DAILY Discontinued Albuterol Nebulized [Ventolin Nebulized] 2.5 mg INHALATION RT-QID 30 Days #100 each No Action Levofloxacin [Levaquin] 750 mg PO DAILY 7 Days #7 tab Discharge Medication List Aspirin 81 mg PO DAILY 01/14/14 [History] DULoxetine HCL [Cymbalta] 60 mg PO DAILY 01/14/14 [History] lisinopriL [Prinivil] 20 mg PO DAILY 01/14/14 [History] Escitalopram [Lexapro] 10 mg PO DAILY 06/13/18 [History] Pantoprazole Sodium [Protonix] 40 mg PO DAILY 06/13/18 [History] amLODIPine [Norvasc] 5 mg PO DAILY 06/13/18 [History] Atorvastatin [Lipitor] 80 mg PO DAILY #30 tab 07/20/20 [Rx] Metoprolol Succinate (ER) [Toprol XL] 25 mg PO DAILY #30 tab.er.24h 07/20/20 [ Rx] Budesonide-Formot 160-4.5 Mcg [Symbicort 160-4.5 Mcg Inhaler] 2 puff INHALATION RT-BID 08/21/20 [History] Albuterol Sulfate [Proair Hfa] 2 puff INHALATION RT-QID PRN 08/29/21 [History] Naloxone [Narcan] 1 mg SQ ONCE PRN 08/29/21 [History] Tamsulosin [Flomax] 0.4 mg PO DAILY 08/29/21 [History] traZODone HCL [Desyrel] 50 mg PO HS tab 09/05/21 [Rx] Baclofen [Lioresal] 10 mg PO DAILY PRN 07/12/22 [History] Gabapentin [Neurontin] 400 mg PO DAILY 07/12/22 [History] Gabapentin [Neurontin] 800 mg PO HS 07/12/22 [History] HYDROcodone/APAP 10-325MG [Athol 10-325] 1 tab PO Q6HR PRN 07/12/22 [History] Primidone [Mysoline] 25 mg PO HS 07/12/22 [History] Albuterol Nebulized [Ventolin Nebulized] 2.5 mg INHALATION RT-Q2H PRN ml 07/14/22 [Rx] Budesonide [Pulmicort] 1 mg INHALATION RT-BID 30 Days #60 each 07/14/22 [Rx] Nicotine 21Mg/24Hr Patch [Habitrol] 1 patch TRANSDERM DAILY #30 patch 07/14/22 [Rx] Levofloxacin [Levaquin] 750 mg PO DAILY 7 Days #7 tab 08/07/22 [Rx] Loratadine [Claritin] 10 mg PO DAILY 08/13/22 [History] Nitroglycerin Sl Tabs [Nitrostat] 0.4 mg SL Q5M PRN 08/13/22 [History] Nystatin 100,000Unit/gm Cream [Mycostatin Cream] 1 applic TOPICAL BID PRN 08/13/22 [History] SILVER sulfADIAZINE Cream [Silvadene 1% Cream] 1 applic TOPICAL DAILY 08/13/22 [History] Ipratropium-Albuterol Nebulize [Duoneb 0.5 mg-3 mg/3 ml Soln] 3 ml INHALATION RT-QID each 08/18/22 [Rx] predniSONE [Deltasone] 40 mg PO DAILY tab 08/18/22 [Rx] Follow up Appointment(s)/Referral(s): Patricio Flanagan MD [STAFF PHYSICIAN] - 08/18/22 3:45 pm Fidencio Barrientos MD [Primary Care Provider] - 08/27/22 2:30 pm Activity/Diet/Wound Care/Special Instructions: Home Care - [facility]
== END 2022-08-18 15:43 | disposition home health service (06) | DRG 190 ==
LOC: EC 10:36 → 4SSUR 12:59 → OBSVTOIN 12:59 → 4SSUR 17:11
PROVIDERS: ADMIT Internal Medicine; ATTEND Internal Medicine
DX: J43.9 Emphysema, unspecified (principal); J18.9 Pneumonia, unspecified organism; E11.52 Type 2 diabetes mellitus with diabetic peripheral angiopathy with gangrene; J96.11 Chronic respiratory failure with hypoxia; R18.8 Other ascites; I48.92 Unspecified atrial flutter; E03.9 Hypothyroidism, unspecified; E78.5 Hyperlipidemia, unspecified; F17.290 Nicotine dependence, other tobacco product, uncomplicated; F32.A Depression, unspecified; I10 Essential (primary) hypertension; K74.60 Unspecified cirrhosis of liver; I25.2 Old myocardial infarction; Z79.01 Long term (current) use of anticoagulants; Z79.51 Long term (current) use of inhaled steroids; Z79.82 Long term (current) use of aspirin; Z79.899 Other long term (current) drug therapy; Z86.14 Personal history of Methicillin resistant Staphylococcus aureus infection; Z86.19 Personal history of other infectious and parasitic diseases; Z88.1 Allergy status to other antibiotic agents; Z89.612 Acquired absence of left leg above knee; Z95.5 Presence of coronary angioplasty implant and graft; Z91.148 Patient's other noncompliance with medication regimen for other reason
CPT/HCPCS: 36415; 71046; 80053; 83605; 83735; 84145; 84484; 85025; 85610; 85730; 87070; 87205; 87449; 93005; 94640; 94760; 96365; 96368; 99285

== ENCOUNTER 2022-08-20 17:03 | Observation (INO) | payer MEDICARE ==
[2022-08-20] MEDS ORDERED: IPRATROPIUM-ALBUTEROL 3 ML NEB INHALATION STA (17:31)
--- NOTE | 2022-08-20 17:40 | ED ---
General Adult HPI - General Chief complaint: Weakness Stated complaint: Weakness, MILTON Time Seen by Provider: 08/20/22 17:18 Source: patient Mode of arrival: EMS Limitations: no limitations - History of Present Illness Initial comments: Patient is a 72-year-old male presenting with chief complaint of shortness of breath. He was discharged 2 days ago from our facility after being diagnosed with pneumonia. He was sent home on oxygen. He states that at home even after increasing his oxygen from 3L to 5L he would be at 90% with minimal exertion. He denies any chest pain. No palpitations. Admits to increased cough and congestion. No abdominal pain, nausea, vomiting. No numbness or tingling. - Related Data Home Medications Medication Instructions Recorded Confirmed Aspirin 81 mg PO DAILY 01/14/14 08/20/22 DULoxetine HCL [Cymbalta] 60 mg PO DAILY 01/14/14 08/20/22 lisinopriL [Prinivil] 20 mg PO DAILY 01/14/14 08/20/22 Escitalopram [Lexapro] 10 mg PO DAILY 06/13/18 08/20/22 Pantoprazole Sodium [Protonix] 40 mg PO DAILY 06/13/18 08/20/22 amLODIPine [Norvasc] 5 mg PO DAILY 06/13/18 08/20/22 Budesonide-Formot 160-4.5 Mcg 2 puff INHALATION RT-BID 08/21/20 08/20/22 [Symbicort 160-4.5 Mcg Inhaler] Albuterol Sulfate [Proair Hfa] 2 puff INHALATION RT-QID PRN 08/29/21 08/20/22 Naloxone [Narcan] 1 mg SQ ONCE PRN 08/29/21 08/20/22 Tamsulosin [Flomax] 0.4 mg PO DAILY 08/29/21 08/20/22 Baclofen [Lioresal] 10 mg PO DAILY PRN 07/12/22 08/20/22 Gabapentin [Neurontin] 400 mg PO DAILY 07/12/22 08/20/22 Gabapentin [Neurontin] 800 mg PO HS 07/12/22 08/20/22 HYDROcodone/APAP 10-325MG [[place] 1 tab PO Q6HR PRN 07/12/22 08/20/22 10-325] Primidone [Mysoline] 25 mg PO HS 07/12/22 08/20/22 Loratadine [Claritin] 10 mg PO DAILY 08/13/22 08/20/22 Nitroglycerin Sl Tabs [Nitrostat] 0.4 mg SL Q5M PRN 08/13/22 08/20/22 Nystatin 100,000Unit/gm Cream 1 applic TOPICAL BID PRN 08/13/22 08/20/22 [Mycostatin Cream] SILVER sulfADIAZINE Cream 1 applic TOPICAL DAILY 08/13/22 08/20/22 [Silvadene 1% Cream] predniSONE See Taper PO DIRECTED 08/20/22 08/20/22 Previous Rx's Medication Instructions Recorded Atorvastatin [Lipitor] 80 mg PO DAILY #30 tab 07/20/20 Metoprolol Succinate (ER) [Toprol 25 mg PO DAILY #30 tab.er.24h 07/20/20 XL] traZODone HCL [Desyrel] 50 mg PO HS tab 09/05/21 Albuterol Nebulized [Ventolin 2.5 mg INHALATION RT-Q2H PRN ml 07/14/22 Nebulized] Budesonide [Pulmicort] 1 mg INHALATION RT-BID 30 Days #60 07/14/22 each Nicotine 21Mg/24Hr Patch [Habitrol] 1 patch TRANSDERM DAILY #30 patch 07/14/22 Ipratropium-Albuterol Nebulize 3 ml INHALATION RT-QID each 08/18/22 [Duoneb 0.5 mg-3 mg/3 ml Soln] Allergies Allergy/AdvReac Type Severity Reaction Status Date / Time azithromycin [From Zithromax] Allergy Rash/Hives Verified 08/20/22 18:56 Review of Systems ROS Statement: Those systems with pertinent positive or pertinent negative responses have been documented in the HPI. ROS Other: All systems not noted in ROS Statement are negative. 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 knee wound + FOR MRSA. History of high left above-knee amputation done approximately 2009. Last Myocardial Infarction Date:: 2003 History of Any Multi-Drug Resistant Organisms: MRSA Date of last positivie culture/infection: 04/02/16 MDRO Source:: LT KNEE WOUND Past Surgical History: Heart Catheterization With Stent, Orthopedic Surgery Additional Past Surgical History / Comment(s): STENTS TO LEFT GROIN, LEFT ABOVE THE KNEE AMPUTATION, unsuccessful revascularization left leg, shoulder surgery, surgical debridement of necrotic tissue left scrotal area, LT AKA 03/03/16. left testicle removed. heart stent x1 broken left hip Past Anesthesia/Blood Transfusion Reactions: No Reported Reaction Date of Last Stent Placement:: 2006 Past Psychological History: Depression Smoking Status: Former smoker, Vaper Past Alcohol Use History: None Reported Past Drug Use History: Marijuana - Past Family History Sister(s) Family Medical History: Cancer Additional Family Medical History / Comment(s): double mastectomy, still surviving Father Family Medical History: No Reported History Mother Family Medical History: No Reported History Additional Family Medical History / Comment(s): hypoglycemia General Exam Limitations: no limitations General appearance: alert, in no apparent distress Head exam: Present: atraumatic, normocephalic, normal inspection Eye exam: Present: normal appearance, EOMI. Absent: scleral icterus, periorbital swelling Neck exam: Present: normal inspection, full ROM Respiratory exam: Present: wheezes, rhonchi. Absent: respiratory distress Cardiovascular Exam: Present: regular rate, normal rhythm, normal heart sounds. Absent: systolic murmur, diastolic murmur, rubs, gallop, clicks Neurological exam: Present: alert, oriented X3, CN II-XII intact Psychiatric exam: Present: normal affect, normal mood Skin exam: Present: warm, dry, intact, normal color. Absent: rash Course Vital Signs 08/20/22 08/20/22 08/20/22 17:10 19:12 19:37 Temperature 98.6 F Pulse Rate 75 70 75 Respiratory 18 18 Rate Blood Pressure 131/101 147/76 O2 Sat by Pulse 95 96 Oximetry 08/20/22 08/20/22 08/20/22 19:45 20:50 23:17 Temperature Pulse Rate 100 72 64 Respiratory 18 20 Rate Blood Pressure 143/83 139/77 O2 Sat by Pulse 93 L 98 Oximetry EKG Findings - EKG Comments: EKG Findings:: Sinus rhythm with marked sinus arrhythmia ventricular rate 78. MI interval 167. QRS 81. QT 378. QTC 412. No acute ischemic changes. Medical Decision Making - Medical Decision Making Was pt. sent in by a medical professional or institution ([facility] Crawford, [employer]ER, urgent care, hospital, or custodial...) When possible be specific @ -No Did you speak to anyone other than the patient for history (EMS, parent, family, police, friend...)? What history was obtained from this source @ -No Did you review nursing and triage notes (agree or disagree)? Why? @ -I reviewed and agree with nursing and triage notes Were old charts reviewed (outside hosp., previous admission, EMS record, old EKG, old radiological studies, urgent care reports/EKG's, custodial records)? Report findings @ -Previous admission and progress notes reviewed Differential Diagnosis (chest pain, altered mental status, abdominal pain women, abdominal pain men, vaginal bleeding, weakness, fever, dyspnea, syncope, headache, dizziness, GI bleed, back pain, seizure, CVA, palpatations, mental health, musculoskeletal)? @ -MDM Differential Dyspnea: Coronary syndrome, arrhythmia, tamponade, asthma, COPD, pulmonary embolism, pneumonia, pneumothorax, pulmonary effusion, anaphylaxis, diabetic ketoacidosis, flailed chest, pulmonary contusion, diaphragmatic rupture, anemia, neuromuscular this is not meant to be an all-inclusive list. EKG interpreted by me (3pts min.). @ -As above X-rays interpreted by me (1pt min.). @ -X-ray shows bibasilar bronchopneumonia. Does not appear changed from most recent chest x-ray CT interpreted by me (1pt min.). @ -Is negative for pulmonary embolism. Multifocal ill-defined pulmonary opacities that could correlate with a clinical diagnosis of multifocal bronchopn eumonia U/S interpreted by me (1pt. min.). @ -None done What testing was considered but not performed or refused? (CT, X-rays, U/S, labs)? Why? @ -None What meds were considered but not given or refused? Why? @ -None Did you discuss the management of the patient with other professionals (professionals i.e. CLARA Crawford, [employer]ER, lab, RT, psych nurse, addiction social worker, coil connector repairer, te acher, banking officer, case advocate)? Give summary @ -Spoke with the patient's PCP Dr. Barrientos who accepted admission Was smoking cessation discussed for >3mins.? @ -No Was critical care preformed (if so, how long)? @ -No Were there social determinants of health that impacted care today? How? (Homelessness, low income, unemployed, alcoholism, drug addiction, transportation, low edu. Level, literacy, decrease access to med. care, senior living, rehab)? @ -No Was there de-escalation of care discussed even if they declined (Discuss DNR or withdrawal of care, Hospice)? DNR status @ -No What co-morbidities impacted this encounter? (DM, HTN, Smoking, COPD, CAD, Cancer, CVA, ARF, Chemo, Hep., AIDS, mental health diagnosis, sleep apnea, morbid obesity)? @ -COPD Was patient admitted / discharged? Hospital course, mention meds given and route, prescriptions, significant lab abnormalities, going to OR and other pertinent info. @ -Patient is a 72-year-old male presenting with chief complaint of increasing shortness of breath. Patient was recently sent home from her facility 2 days ago on 3 L of oxygen nasal cannula. He states that today even with mild ex ertion he would dip down to 90% on 5 L of oxygen. On physical examination there is mild wheezing heard diffusely throughout the lung michel. Lab work shows no leukocytosis. Hemoglobin of 11 is consistent with baseline. Sodium 134. BUN 35. Glucose 215. Troponin is negative and BNP is 3370. Chest x-ray shows evidence of bibasilar pneumonia, however this does not appear unchanged from previous x-ray. CT is negative for pulmonary embolism. Patient appears to be having a COPD exacerbation. He is treated with DuoNeb and Solu-Medrol. He is given a prophylactic dose of Rocephin. Patient does not feel safe going home at this time as he is getting very short of breath with minimal exertion even with his oxygen. He'll be admitted for COPD exacerbation. I spoke with Dr. Barrientos who accepted admission. Patient is agreeable with this plan. I discussed this case with my attending Dr. Mckeon. Undiagnosed new problem with uncertain prognosis? @ -No Drug Therapy requiring intensive monitoring for toxicity (Heparin, Nitro, Insuli n, Cardizem)? @ -No Were any procedures done? @ -No Diagnosis/symptom? @ -COPD exacerbation Acute, or Chronic, or Acute on Chronic? @ -Acute Uncomplicated (without systemic symptoms) or Complicated (systemic symptoms)? @ -complicated Side effects of treatment? @ -No Exacerbation, Progression, or Severe Exacerbation? @ -Exacerbation Poses a threat to life or bodily function? How? (Chest pain, USA, LA, pneumonia, PE, COPD, DKA, ARF, appy, cholecystitis, CVA, Diverticulitis, Homicidal, Suicidal, threat to staff... and all critical care pts) @ -Yes - Lab Data Result diagrams: 08/20/22 18:05 08/20/22 18:05 Lab Results 08/20/22 08/20/22 08/20/22 Range/Units 18:05 18:05 18:05 WBC 9.5 (3.8-10.6) k/uL RBC 4.22 L (4.30-5.90) m/uL Hgb 11.0 L (13.0-17.5) gm/dL Hct 35.6 L (39.0-53.0) % MCV 84.5 (80.0-100.0) fL MCH 26.0 (25.0-35.0) pg MCHC 30.8 L (31.0-37.0) g/dL RDW 17.6 H (11.5-15.5) % Plt Count 475 H (150-450) k/uL MPV 8.4 Neutrophils % 94 % Lymphocytes % 4 % Monocytes % 2 % Eosinophils % 0 % Basophils % 0 % Neutrophils # 8.9 H (1.3-7.7) k/uL Lymphocytes # 0.4 L (1.0-4.8) k/uL Monocytes # 0.1 (0-1.0) k/uL Eosinophils # 0.0 (0-0.7) k/uL Basophils # 0.0 (0-0.2) k/uL Hypochromasia Slight Anisocytosis Slight PT 11.3 (9.0-12.0) sec INR 1.1 (<1.2) APTT 22.7 (22.0-30.0) sec Sodium 134 L (137-145) mmol/L Potassium 4.8 (3.5-5.1) mmol/L Chloride 99 (98-107) mmol/L Carbon Dioxide 26 (22-30) mmol/L Anion Gap 9 mmol/L BUN 35 H (9-20) mg/dL Creatinine 0.68 (0.66-1.25) mg/dL Est GFR (CKD-EPI)AfAm >90 (>60 ml/min/1.73 sqM) Est GFR (CKD-EPI)NonAf >90 (>60 ml/min/1.73 sqM) Glucose 215 H (74-99) mg/dL Plasma Lactic Acid Mike (0.7-2.0) mmol/L Calcium 8.3 L (8.4-10.2) mg/dL Magnesium 1.8 (1.6-2.3) mg/dL Total Bilirubin 0.5 (0.2-1.3) mg/dL AST 24 (17-59) U/L ALT 26 (4-49) U/L Alkaline Phosphatase 62 (38-126) U/L Troponin I (0.000-0.034) ng/mL NT-Pro-B Natriuret Pep pg/mL Total Protein 5.8 L (6.3-8.2) g/dL Albumin 3.1 L (3.5-5.0) g/dL Influenza Type A (PCR) (Not Detectd) Influenza Type B (PCR) (Not Detectd) RSV (PCR) (Not Detectd) SARS-CoV-2 (PCR) (Not Detectd) 08/20/22 08/20/22 08/20/22 Range/Units 18:05 18:05 18:05 WBC (3.8-10.6) k/uL RBC (4.30-5.90) m/uL Hgb (13.0-17.5) gm/dL Hct (39.0-53.0) % MCV (80.0-100.0) fL MCH (25.0-35.0) pg MCHC (31.0-37.0) g/dL RDW (11.5-15.5) % Plt Count (150-450) k/uL MPV Neutrophils % % Lymphocytes % % Monocytes % % Eosinophils % % Basophils % % Neutrophils # (1.3-7.7) k/uL Lymphocytes # (1.0-4.8) k/uL Monocytes # (0-1.0) k/uL Eosinophils # (0-0.7) k/uL Basophils # (0-0.2) k/uL Hypochromasia Anisocytosis PT (9.0-12.0) sec INR (<1.2) APTT (22.0-30.0) sec Sodium (137-145) mmol/L Potassium (3.5-5.1) mmol/L Chloride (98-107) mmol/L Carbon Dioxide (22-30) mmol/L Anion Gap mmol/L BUN (9-20) mg/dL Creatinine (0.66-1.25) mg/dL Est GFR (CKD-EPI)AfAm (>60 ml/min/1.73 sqM) Est GFR (CKD-EPI)NonAf (>60 ml/min/1.73 sqM) Glucose (74-99) mg/dL Plasma Lactic Acid Mike (0.7-2.0) mmol/L Calcium (8.4-10.2) mg/dL Magnesium (1.6-2.3) mg/dL Total Bilirubin (0.2-1.3) mg/dL AST (17-59) U/L ALT (4-49) U/L Alkaline Phosphatase (38-126) U/L Troponin I <0.012 (0.000-0.034) ng/mL NT-Pro-B Natriuret Pep 3370 pg/mL Total Protein (6.3-8.2) g/dL Albumin (3.5-5.0) g/dL Influenza Type A (PCR) Not Detected (Not Detectd) Influenza Type B (PCR) Not Detected (Not Detectd) RSV (PCR) Not Detected (Not Detectd) SARS-CoV-2 (PCR) Not Detected (Not Detectd) 08/20/22 Range/Units 18:20 WBC (3.8-10.6) k/uL RBC (4.30-5.90) m/uL Hgb (13.0-17.5) gm/dL Hct (39.0-53.0) % MCV (80.0-100.0) fL MCH (25.0-35.0) pg MCHC (31.0-37.0) g/dL RDW (11.5-15.5) % Plt Count (150-450) k/uL MPV Neutrophils % % Lymphocytes % % Monocytes % % Eosinophils % % Basophils % % Neutrophils # (1.3-7.7) k/uL Lymphocytes # (1.0-4.8) k/uL Monocytes # (0-1.0) k/uL Eosinophils # (0-0.7) k/uL Basophils # (0-0.2) k/uL Hypochromasia Anisocytosis PT (9.0-12.0) sec INR (<1.2) APTT (22.0-30.0) sec Sodium (137-145) mmol/L Potassium (3.5-5.1) mmol/L Chloride (98-107) mmol/L Carbon Dioxide (22-30) mmol/L Anion Gap mmol/L BUN (9-20) mg/dL Creatinine (0.66-1.25) mg/dL Est GFR (CKD-EPI)AfAm (>60 ml/min/1.73 sqM) Est GFR (CKD-EPI)NonAf (>60 ml/min/1.73 sqM) Glucose (74-99) mg/dL Plasma Lactic Acid Mike 0.9 (0.7-2.0) mmol/L Calcium (8.4-10.2) mg/dL Magnesium (1.6-2.3) mg/dL Total Bilirubin (0.2-1.3) mg/dL AST (17-59) U/L ALT (4-49) U/L Alkaline Phosphatase (38-126) U/L Troponin I (0.000-0.034) ng/mL NT-Pro-B Natriuret Pep pg/mL Total Protein (6.3-8.2) g/dL Albumin (3.5-5.0) g/dL Influenza Type A (PCR) (Not Detectd) Influenza Type B (PCR) (Not Detectd) RSV (PCR) (Not Detectd) SARS-CoV-2 (PCR) (Not Detectd) Disposition Clinical Impression: COPD exacerbation Disposition: ADMITTED IP TO THIS HOSP Condition: Good Time of Disposition: 22:01
[2022-08-20 18:37] LABS: ALT 26 U/L (4-49); AST 24 U/L (17-59); African American GFR (CKD) >90 (>60 ml/min/1.73 sqM); Albumin 3.1 g/dL (3.5-5.0); Alkaline Phosphatase 62 U/L (38-126); Anion Gap 9 mmol/L; Blood Urea Nitrogen 35 mg/dL (9-20); Calcium 8.3 mg/dL (8.4-10.2); Carbon Dioxide 26 mmol/L (22-30); Chloride 99 mmol/L (98-107); Glucose 215 mg/dL (74-99); Magnesium 1.8 mg/dL (1.6-2.3); Non-African American GFR(CKD) >90 (>60 ml/min/1.73 sqM); Potassium 4.8 mmol/L (3.5-5.1); Sodium 134 mmol/L (137-145); Total Bilirubin 0.5 mg/dL (0.2-1.3); Total Protein 5.8 g/dL (6.3-8.2)
[2022-08-20 18:40] LABS: Anisocytosis Slight; Basophils % (A) 0 %; Eosinophils % (A) 0 %; HCT 35.6 % (39.0-53.0); Hypochromasia Slight; Lymphocytes # (A) 0.4 k/uL (1.0-4.8); Lymphocytes % (A) 4 %; MCHC 30.8 g/dL (31.0-37.0); MCV 84.5 fL (80.0-100.0); Mean Platelet Volume 8.4; Monocytes # (A) 0.1 k/uL (0-1.0); Monocytes % (A) 2 %; Neutrophils # (A) 8.9 k/uL (1.3-7.7); Neutrophils % (A) 94 %; Platelet Count 475 k/uL (150-450); RBC 4.22 m/uL (4.30-5.90); RDW 17.6 % (11.5-15.5); WBC 9.5 k/uL (3.8-10.6)
[2022-08-20 18:45] LABS: INR 1.1 (<1.2); Partial Thromboplastin Time 22.7 sec (22.0-30.0); Prothrombin Time 11.3 sec (9.0-12.0)
--- NOTE | 2022-08-20 19:16 | XR ---
EXAMINATION: XR chest 2V: 08/20/2022 6:06 PM CLINICAL INDICATION: difficulty breathing TECHNIQUE: Departmental protocol COMPARISON: 08/14/2022 FINDINGS: Apparent skinfold accounts for the oblique interface over the right scapula, as inflated lung parench yma appears distal to the interface. Again bibasilar ill-defined opacities are demonstrated, these can correlate with a clinical diagnosis of multifocal bronchopneumonia. The opacities are better seen on the lateral view but also seen on t he frontal view. The pleural spaces are negative. EKG leads noted. The cardiac silhouette is not enlarged. The skeletal structures and soft tissues are negative for acute findings. IMPRESSION: Bibasilar radiographic findings, suspect bibasilar bronchopneumonia.
[2022-08-20] MEDS ORDERED: methylPREDNISolone SOD SUCCI 125 MG/2 ML VIAL IV STA (19:43)
[2022-08-20] MEDS ORDERED: HYDROcodone/APAP 10-325MG 1 EACH TAB PO ONE (20:29)
--- NOTE | 2022-08-20 21:07 | CT ---
EXAMINATION TYPE: CT chest angio for PE DATE OF EXAM: 08/20/2022 COMPARISON: CT 07/13/2022 HISTORY: SOB, low oxygen CT DLP: 277.6 mGycm. Automated Exposure Control for Dose Reduction was Utilized. CONTRAST: CTA scan of the thorax is performed with IV Contrast, patient injected with 100 cc mL of Is ovue 370. MIP Images are created on CT scanner and reviewed. 3D reconstructed images are created on an independent workstation and reviewed. FINDINGS: LUNGS AND PLEURAL SPACES: There are moderate emphysematous changes. There are multifocal ill-defined added bands of consolidative opacity in the right upper lobe and in the lung bases where there is diffuse bronchial wall thickening with mild cylindrical bronchiectasis and mucous plugging. Pleural spaces are negative. MEDIASTINUM: There is satisfactory enhancement of the pulmonary artery and its branches, and there is no CT evidence for pulmonary embolism. There is mild pulmonary arterial dilation, which can correla te with a clinical diagnosis of pulmonary hypertension. There are no acute aortic findings but there is mild aortic ectasia. No cardiomegaly but prominent co ronary calcifications and evidence of LVH present. Scattered subcentimeter and mildly enlarged mediastinal nodes, presumably reactive/inflammatory etiol ogy. SKELETAL STRUCTURES: No acute skeletal findings, but remote T12 moderate compression fracture redemon strated. VISUALIZED UPPER ABDOMEN: No acute process. IMPRESSION: 1. Negative for pulmonary embolism. 2. Multifocal ill-defined pulmonary opacities could correlate with a clinical diagnosis of multifocal bronchopneumonia; recommend three-month follow-up CT.
[2022-08-20] MEDS ORDERED: NALOXONE 0.4 MG/ML 1 ML VIAL IV PRN (21:56)
[2022-08-20] MEDS ORDERED: cefTRIAXone IN SWFI 1,000 MG/10 ML SYRINGE IVP STA (21:58)
[2022-08-20] MEDS ORDERED: IPRATROPIUM-ALBUTEROL 3 ML NEB INHALATION PRN (21:58)
[2022-08-21] MEDS: HYDROcodone/APAP 10-325MG 1 EACH TAB PO PRN ×3 (01:15→18:01)
[2022-08-21] MEDS: methylPREDNISolone SOD SUCCI 125 MG/2 ML VIAL IV SCH ×3 (01:15→12:15)
[2022-08-21 05:52] LABS: Glucose,Whole Blood 233 mg/dL (70-110)
[2022-08-21] MEDS: ATORVASTATIN 80 MG TAB PO SCH (08:38)
[2022-08-21] MEDS: GABAPENTIN 400 MG CAP PO SCH (08:38)
[2022-08-21] MEDS: PANTOPRAZOLE 40 MG TABLET PO SCH (08:38)
[2022-08-21] MEDS: DULoxetine HCL 60 MG CAPSULE.DR PO SCH (08:39)
[2022-08-21] MEDS: amLODIPine 5 MG TAB PO SCH (08:39)
[2022-08-21] MEDS: ASPIRIN 81 MG PO SCH (08:39)
[2022-08-21] MEDS: ESCITALOPRAM 10 MG TAB PO SCH (08:40)
[2022-08-21] MEDS: NICOTINE 21MG/24HR PATCH TRANSDERM SCH (08:40)
[2022-08-21] MEDS: TAMSULOSIN 0.4 MG CAP.ER.24H PO SCH (08:45)
[2022-08-21] MEDS: lisinopriL 20 MG TAB PO SCH (08:45)
[2022-08-21] MEDS: METOPROLOL SUCCINATE (ER) 25 MG TAB.ER.24H PO SCH (08:45)
[2022-08-21] MEDS: BUDESONIDE 1 MG/2 ML NEBU INHALATION SCH ×2 (08:46→19:24)
[2022-08-21] MEDS: IPRATROPIUM-ALBUTEROL 3 ML NEB INHALATION SCH ×4 (08:47→19:21)
[2022-08-21] MEDS: SYMBICORT 160-4.5 MCG INHALER INHALATION SCH ×2 (08:47→19:21)
[2022-08-21 11:56] VITALS: BMI 15.0
[2022-08-21] MEDS: INSULIN ASPART (NovoLOG) 100 UNIT/ML VIAL SQ SCH ×3 (12:41→22:01)
--- NOTE | 2022-08-21 13:07 | P.CNPUL ---
History of Present Illness Consult date: 08/21/22 Reason for consult: dyspnea, COPD History of present illness: This is a 72-year-old advanced COPD, oxygen dependent, comes in with a 2 days of being discharged because of some issues with his pulse ox dropping. His current pulse ox is above 90% liters of oxygen by nasal cannula. The patient states that he was unable to bring his pulse ox at home above 90% even while titrating his FiO2. Based on that, he came into the hospital he was admitted. He is known to have multiple comorbidities. He has diabetes mellitus type 2, peripheral vascular disease and above the amputation of the left. He has also hypertension. He has undergone a previous amputation. He has no other complaints. No chest pain. No pleurisy or hemoptysis. I reviewed the chest x- ray and it shows no acute abnormalities. No other complaints otherwise for now. No altered mentation. No signs of any CO2 narcosis. The patient has been maintained on Symbicort on outpatient basis addition to [facility]. I believe he quit smoking. Review of Systems CONSTITUTIONAL: Denies any recent significant weight loss or weight gain. EYES: Denies change in vision. EARS, NOSE, MOUTH, THROAT: Denies headaches, denies sore throat. CARDIOVASCULAR: Denies chest pain, palpitations. RESPIRATORY: See HPI, shortness of breath GASTROINTESTINAL: Denies change in appetite, abdominal pain, nausea and vomiting, or diarrhea GENITOURINARY: Denies hematuria, denies infections. MUSKULOSKELETAL: Denies pain, denies swelling. INTEGUMENTARY: Denies rash, denies eczema. NEUROLOGICAL: Denies recent memory loss, no recent seizure activity. PSYCHIATRIC: Denies anxiety, denies depression. 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 knee wound + FOR MRSA. History of high left above-knee amputation done approximately 2009. Last Myocardial Infarction Date:: 2003 History of Any Multi-Drug Resistant Organisms: Acinetobacter (MDRO), MRSA Date of last positivie culture/infection: 04/02/16 MDRO Source:: LT KNEE WOUND Past Surgical History: Heart Catheterization With Stent, Orthopedic Surgery Additional Past Surgical History / Comment(s): STENTS TO LEFT GROIN, LEFT ABOVE THE KNEE AMPUTATION, unsuccessful revascularization left leg, shoulder surgery, surgical debridement of necrotic tissue left scrotal area, LT AKA 03/03/16. left testicle removed. heart stent x1 broken left hip Past Anesthesia/Blood Transfusion Reactions: No Reported Reaction Date of Last Stent Placement:: 2006 Past Psychological History: Depression Additional Psychological History / Comment(s): . Smoking Status: Former smoker Past Alcohol Use History: None Reported Additional Past Alcohol Use History / Comment(s): Patient is a ex-smoker one and a half packs of cigarettes per day for 52 years. He smokes marijuana on a daily basis and has done so for many decades. He denies any alcohol use. He lives at home with his and there is one 2 dogs in the home. 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 He denies any service. use a vaper daily Past Drug Use History: Marijuana Additional Drug Use History / Comment(s): medical marijuana card-uses daily - Past Family History Sister(s) Family Medical History: Cancer Additional Family Medical History / Comment(s): double mastectomy, still surviving Father Family Medical History: No Reported History Mother Family Medical History: No Reported History Additional Family Medical History / Comment(s): hypoglycemia Medications and Allergies Home Medications Medication Instructions Recorded Confirmed Type Aspirin 81 mg PO DAILY 01/14/14 08/20/22 History DULoxetine HCL [Cymbalta] 60 mg PO DAILY 01/14/14 08/20/22 History lisinopriL [Prinivil] 20 mg PO DAILY 01/14/14 08/20/22 History Escitalopram [Lexapro] 10 mg PO DAILY 06/13/18 08/20/22 History Pantoprazole Sodium [Protonix] 40 mg PO DAILY 06/13/18 08/20/22 History amLODIPine [Norvasc] 5 mg PO DAILY 06/13/18 08/20/22 History Atorvastatin [Lipitor] 80 mg PO DAILY #30 tab 07/20/20 08/20/22 Rx Metoprolol Succinate (ER) [Toprol 25 mg PO DAILY #30 tab.er.24h 07/20/20 08/20/22 Rx XL] Budesonide-Formot 160-4.5 Mcg 2 puff INHALATION RT-BID 08/21/20 08/20/22 History [Symbicort 160-4.5 Mcg Inhaler] Albuterol Sulfate [Proair Hfa] 2 puff INHALATION RT-QID PRN 08/29/21 08/20/22 History Naloxone [Narcan] 1 mg SQ ONCE PRN 08/29/21 08/20/22 History Tamsulosin [Flomax] 0.4 mg PO DAILY 08/29/21 08/20/22 History traZODone HCL [Desyrel] 50 mg PO HS tab 09/05/21 08/20/22 Rx Baclofen [Lioresal] 10 mg PO DAILY PRN 07/12/22 08/20/22 History Gabapentin [Neurontin] 400 mg PO DAILY 07/12/22 08/20/22 History Gabapentin [Neurontin] 800 mg PO HS 07/12/22 08/20/22 History HYDROcodone/APAP 10-325MG [[place] 1 tab PO Q6HR PRN 07/12/22 08/20/22 History 10-325] Primidone [Mysoline] 25 mg PO HS 07/12/22 08/20/22 History Albuterol Nebulized [Ventolin 2.5 mg INHALATION RT-Q2H PRN ml 07/14/22 08/20/22 Rx Nebulized] Budesonide [Pulmicort] 1 mg INHALATION RT-BID 30 Days #60 07/14/22 08/20/22 Rx each Nicotine 21Mg/24Hr Patch [Habitrol] 1 patch TRANSDERM DAILY #30 patch 07/14/22 08/20/22 Rx Loratadine [Claritin] 10 mg PO DAILY 08/13/22 08/20/22 History Nitroglycerin Sl Tabs [Nitrostat] 0.4 mg SL Q5M PRN 08/13/22 08/20/22 History Nystatin 100,000Unit/gm Cream 1 applic TOPICAL BID PRN 08/13/22 08/20/22 History [Mycostatin Cream] SILVER sulfADIAZINE Cream 1 applic TOPICAL DAILY 08/13/22 08/20/22 History [Silvadene 1% Cream] Ipratropium-Albuterol Nebulize 3 ml INHALATION RT-QID each 08/18/22 08/20/22 Rx [Duoneb 0.5 mg-3 mg/3 ml Soln] predniSONE See Taper PO DIRECTED 08/20/22 08/20/22 History Allergies Allergy/AdvReac Type Severity Reaction Status Date / Time azithromycin [From Zithromax] Allergy Rash/Hives Verified 08/20/22 18:56 Physical Exam Vitals: Vital Signs Temp Pulse Pulse Resp BP BP Pulse Ox 08/21/22 09:48 66 20 08/21/22 08:57 84 08/21/22 08:51 97 08/21/22 08:47 78 08/21/22 07:14 97.6 F 79 18 186/77 98 08/21/22 03:11 98.1 F 66 20 155/69 99 08/20/22 23:17 64 20 139/77 98 08/20/22 20:50 72 18 143/83 93 L 08/20/22 19:45 100 08/20/22 19:37 75 08/20/22 19:12 70 18 147/76 96 08/20/22 17:10 98.6 F 75 18 131/101 95 Intake and Output 08/20/22 08/21/22 08/21/22 22:59 06:59 14:59 Intake Total 200 200 Balance 200 200 Intake: Oral 200 200 Other: Voiding Method Bedside Commode # Voids 3 3 # Bowel Movements 2 1 Weight 54.431 kg 54.431 kg GENERAL EXAM: Alert, 72-year-old male, on 3 L nasal cannula, comfortable in no apparent distress. HEAD: Normocephalic. EYES: Normal reaction of pupils, equal size. NOSE: Clear with pink turbinates. THROAT: No erythema or exudates. NECK: No masses, no JVD. CHEST: No chest wall deformity. LUNGS: Equal air entry with bilateral wheeze, few scattered rhonchi. CVS: S1 and S2 normal with no audible murmur, regular rhythm. ABDOMEN: No hepatosplenomegaly, normal bowel sounds, no guarding or rigidity. SPINE: No scoliosis or deformity SKIN: No rashes CENTRAL NERVOUS SYSTEM: No focal deficits, tone is normal in all 4 extremities. EXTREMITIES: Left [id number] amputation. There is no peripheral edema. No clubbing, no cyanosis. Peripheral pulses are intact. Results - Laboratory Findings CBC and BMP: 08/20/22 18:05 08/20/22 18:05 PT/INR, D-dimer PT 11.3 sec (9.0-12.0) 08/20/22 18:05 INR 1.1 (<1.2) 08/20/22 18:05 Abnormal lab findings: Abnormal Labs 08/20/22 08/20/22 08/21/22 18:05 18:05 05:52 RBC 4.22 L Hgb 11.0 L Hct 35.6 L MCHC 30.8 L RDW 17.6 H Plt Count 475 H Neutrophils # 8.9 H Lymphocytes # 0.4 L Sodium 134 L BUN 35 H Glucose 215 H POC Glucose (mg/dL) 233 H Calcium 8.3 L Total Protein 5.8 L Albumin 3.1 L - Diagnostic Findings Chest x-ray: image reviewed Assessment and Plan Plan: Advanced COPD with fluctuation in pulse ox. No clear signs of exacerbation. The patient infected recovering from recent COPD exacerbations vaccination in stable for now. Chest x-ray findings are also stable. The CTA was also reviewed. No indication for any pneumonia 30 to the interpretation given by the radiologist. There is no evidence of any pulmonary embolism. History of heavy tobacco use, for 55 years, at 2-3 packs a day, has not smoked for quite some time Diabetes mellitus type 2 Hypertension Coronary artery disease myocardial infarction, with previous PCI and stent placement Peripheral vascular occlusive disease, status post high left above-knee amp utation, 2009 History of migraine cephalgia History of shingles Ki's gangrene Prior history of MRSA infection Plan: Optimize COPD again with a combination of bronchodilators and steroids. Recommend discharging this patient home on Trelegy Ellipta one inhalation a day, oxygen at 3 L, Funmilayob about treatments a gradual taper of steroids with close outpatient monitoring regarding his COPD to avoid any admissions. He states that he's not smoking for now.
--- NOTE | 2022-08-21 15:18 | P.HPIM ---
History of Present Illness H&P Date: 08/21/22 This is a 72-year-old male who presented to the emergency department as he was having increased shortness of breath and difficulty with keeping his oxygen saturations above 93% on his 3 L requiring 4-4-1/2 L. Patient has advanced COPD and was recently hospitalized and discharged 2 days prior with his primary care provider Dr. Barrientos and was recently on antibiotics and discharged home. Patient reports in the morning he woke up and had oxygen saturations of 98% although during the day and with minimal exertion his oxygen saturation would quickly into the low 80s requiring more oxygen. Patient came here for further evaluation. Patient was admitted with pulmonary on consult for concerns of shortness of breath with COPD exacerbation. Chest x-ray in the ER showed bibasilar radiographic findings suspect bibasilar bronchopneumonia although appears more bronchial like bronchitis and patient is afebrile and does not clinically look infectious. Patient also underwent CTA of the chest which was negative for pulmonary embolism along with multifocal ill-defined pulmonary opacities that could correlate with multifocal bronchopneumonia and recommend a three-month follow-up CT. Patient was admitted under observation and awaiting pulmonary consultation. Review Of Systems: Constitutional: No fever, no chills, no night sweats. No weight change. No weakness, fatigue or lethargy. No daytime sleepiness. EENT: No headache. No blurred vision or double vision, no loss of vision. No loss of Hearing, no ringing in the ears, no dizziness. No nasal drainage or congestion. No epistaxis. No sore throat. Lungs: Reports shortness of breath, cough, no sputum production. No wheezing. Cardiovascular: No chest pain, no lower extremity edema. No palpitations. No paroxysmal nocturnal dyspnea. No orthopnea. No lightheadedness or dizziness. No syncopal episodes. Abdominal: No abdominal pain. No nausea, vomiting. No diarrhea. No constipation. No bloody or tarry stools.. No loss of appetite. Genitourinary: No dysuria, increased frequency, urgency. No urinary retention. Musculoskeletal: No myalgias. No muscle weakness, no gait dysfunction, no frequent falls. No back pain. No neck pain. Integumentary: No wounds, no lesions. No rash or pruritus. No unusual bruising. No change in hair or nails. Neurologic: No aphasia. No facial droop. No change in mentation. No head injury. No headache. No paralysis. No paresthesia. Psychiatric: No depression. No anxiety. No mood swings. Endocrine: No abnormal blood sugars. No weight change. No excessive sweating or thirst. No cold intolerance. PHYSICAL EXAMINATION: GENERAL: The patient is alert and oriented x4, thin built, cachectic, elderly- appearing HEENT: Pupils are round and equally reacting to light. EOMI. no scleral icterus. No conjunctival pallor. Normocephalic, atraumatic. No pharyngeal erythema. No thyromegaly. CARDIOVASCULAR: S1 and S2 muffled PULMONARY: diminished breath sounds bilaterally with some scattered rhonchi with minimal faint expiratory wheezing noted at the bases ABDOMEN: soft. Nontender on exam. Thin, cachectic non-distended, normoactive bowel sounds. No palpable organomegaly. MUSCULOSKELETAL: No joint swelling or deformity. EXTREMITIES: No cyanosis, clubbing, or pedal edema. Left AKA noted. Diffuse weakness SKIN: No rashes. Assessment: Shortness of breath, with advanced COPD, does not appear to be in acute exacerbation Chronic hypoxic respiratory failure wears 3 L outpatient secondary to COPD Recent hospitalization for COPD exacerbation and discharged 2 days prior Diabetes mellitus, type II Hypertension history History of coronary artery disease with stenting Hyperlipidemia History of left [id number] amputation in 2009 Former smoker Occasional THC use GI prophylaxis DVT prophylaxis Full code Plan: Recommend to continue with current medications and management with pulmonary following. Patient does have advanced COPD and chronically wears 3 L of oxygen Patient was started on steroids and will lower the dose as patient is not significantly wheezing on exam and continue with inhalation treatments Will continue to monitor overnight and patient will need some nebulizer supplies on discharge Probable discharge in 24 hours The impression and plan of care has been dictated by Nori Mancuso, nurse practitioner as directed. Dr. Bay MD I have performed a history and examination and MDM of this patient, discussed the same with the dictator, and agree with the dictator's assessment and plan as written ,documented as a scribe. Based on total visit time, I have performed more than 50% of the visit. Any additional findings or plans will be noted. 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 knee wound + FOR MRSA. History of high left above-knee amputation done approximately 2009. Last Myocardial Infarction Date:: 2003 History of Any Multi-Drug Resistant Organisms: Acinetobacter (MDRO), MRSA Date of last positivie culture/infection: 04/02/16 MDRO Source:: LT KNEE WOUND Past Surgical History: Heart Catheterization With Stent, Orthopedic Surgery Additional Past Surgical History / Comment(s): STENTS TO LEFT GROIN, LEFT ABOVE THE KNEE AMPUTATION, unsuccessful revascularization left leg, shoulder surgery, surgical debridement of necrotic tissue left scrotal area, LT AKA 03/03/16. left testicle removed. heart stent x1 broken left hip Past Anesthesia/Blood Transfusion Reactions: No Reported Reaction Date of Last Stent Placement:: 2006 Past Psychological History: Depression Additional Psychological History / Comment(s): . Smoking Status: Former smoker Past Alcohol Use History: None Reported Additional Past Alcohol Use History / Comment(s): Patient is a ex-smoker one and a half packs of cigarettes per day for 52 years. He smokes marijuana on a daily basis and has done so for many decades. He denies any alcohol use. He lives at home with his and there is one 2 dogs in the home. 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 use a vaper daily Past Drug Use History: Marijuana Additional Drug Use History / Comment(s): medical marijuana card-uses daily - Past Family History Sister(s) Family Medical History: Cancer Additional Family Medical History / Comment(s): double mastectomy, still surviving Father Family Medical History: No Reported History Mother Family Medical History: No Reported History Additional Family Medical History / Comment(s): hypoglycemia Medications and Allergies Home Medications Medication Instructions Recorded Confirmed Type Aspirin 81 mg PO DAILY 01/14/14 08/20/22 History DULoxetine HCL [Cymbalta] 60 mg PO DAILY 01/14/14 08/20/22 History lisinopriL [Prinivil] 20 mg PO DAILY 01/14/14 08/20/22 History Escitalopram [Lexapro] 10 mg PO DAILY 06/13/18 08/20/22 History Pantoprazole Sodium [Protonix] 40 mg PO DAILY 06/13/18 08/20/22 History amLODIPine [Norvasc] 5 mg PO DAILY 06/13/18 08/20/22 History Atorvastatin [Lipitor] 80 mg PO DAILY #30 tab 07/20/20 08/20/22 Rx Metoprolol Succinate (ER) [Toprol 25 mg PO DAILY #30 tab.er.24h 07/20/20 08/20/22 Rx XL] Budesonide-Formot 160-4.5 Mcg 2 puff INHALATION RT-BID 08/21/20 08/20/22 History [Symbicort 160-4.5 Mcg Inhaler] Albuterol Sulfate [Proair Hfa] 2 puff INHALATION RT-QID PRN 08/29/21 08/20/22 History Naloxone [Narcan] 1 mg SQ ONCE PRN 08/29/21 08/20/22 History Tamsulosin [Flomax] 0.4 mg PO DAILY 08/29/21 08/20/22 History traZODone HCL [Desyrel] 50 mg PO HS tab 09/05/21 08/20/22 Rx Baclofen [Lioresal] 10 mg PO DAILY PRN 07/12/22 08/20/22 History Gabapentin [Neurontin] 400 mg PO DAILY 07/12/22 08/20/22 History Gabapentin [Neurontin] 800 mg PO HS 07/12/22 08/20/22 History HYDROcodone/APAP 10-325MG [[place] 1 tab PO Q6HR PRN 07/12/22 08/20/22 History 10-325] Primidone [Mysoline] 25 mg PO HS 07/12/22 08/20/22 History Albuterol Nebulized [Ventolin 2.5 mg INHALATION RT-Q2H PRN ml 07/14/22 08/20/22 Rx Nebulized] Budesonide [Pulmicort] 1 mg INHALATION RT-BID 30 Days #60 07/14/22 08/20/22 Rx each Nicotine 21Mg/24Hr Patch [Habitrol] 1 patch TRANSDERM DAILY #30 patch 07/14/22 08/20/22 Rx Loratadine [Claritin] 10 mg PO DAILY 08/13/22 08/20/22 History Nitroglycerin Sl Tabs [Nitrostat] 0.4 mg SL Q5M PRN 08/13/22 08/20/22 History Nystatin 100,000Unit/gm Cream 1 applic TOPICAL BID PRN 08/13/22 08/20/22 History [Mycostatin Cream] SILVER sulfADIAZINE Cream 1 applic TOPICAL DAILY 08/13/22 08/20/22 History [Silvadene 1% Cream] Ipratropium-Albuterol Nebulize 3 ml INHALATION RT-QID each 08/18/22 08/20/22 Rx [Duoneb 0.5 mg-3 mg/3 ml Soln] predniSONE See Taper PO DIRECTED 08/20/22 08/20/22 History Allergies Allergy/AdvReac Type Severity Reaction Status Date / Time azithromycin [From Zithromax] Allergy Rash/Hives Verified 08/20/22 18:56 Physical Exam Vitals: Vital Signs Temp Pulse Pulse Resp BP BP Pulse Ox 08/21/22 09:48 66 20 08/21/22 08:57 84 08/21/22 08:51 97 08/21/22 08:47 78 08/21/22 07:14 97.6 F 79 18 186/77 98 08/21/22 03:11 98.1 F 66 20 155/69 99 08/20/22 23:17 64 20 139/77 98 08/20/22 20:50 72 18 143/83 93 L 08/20/22 19:45 100 08/20/22 19:37 75 08/20/22 19:12 70 18 147/76 96 08/20/22 17:10 98.6 F 75 18 131/101 95 Intake and Output 08/20/22 08/21/22 08/21/22 22:59 06:59 14:59 Intake Total 200 200 Balance 200 200 Intake: Oral 200 200 Other: Voiding Method Bedside Commode # Voids 3 3 # Bowel Movements 2 1 Weight 54.431 kg 54.431 kg Results CBC & Chem 7: 08/20/22 18:05 08/20/22 18:05 Labs: Abnormal Lab Results - Last 24 Hours (Table) 08/20/22 08/20/22 08/21/22 Range/Units 18:05 18:05 05:52 RBC 4.22 L (4.30-5.90) m/uL Hgb 11.0 L (13.0-17.5) gm/dL Hct 35.6 L (39.0-53.0) % MCHC 30.8 L (31.0-37.0) g/dL RDW 17.6 H (11.5-15.5) % Plt Count 475 H (150-450) k/uL Neutrophils # 8.9 H (1.3-7.7) k/uL Lymphocytes # 0.4 L (1.0-4.8) k/uL Sodium 134 L (137-145) mmol/L BUN 35 H (9-20) mg/dL Glucose 215 H (74-99) mg/dL POC Glucose (mg/dL) 233 H (70-110) mg/dL Calcium 8.3 L (8.4-10.2) mg/dL Total Protein 5.8 L (6.3-8.2) g/dL Albumin 3.1 L (3.5-5.0) g/dL Thrombosis Risk Factor Assmnt - DVT/VTE Prophylaxis DVT/VTE Prophylaxis: Pharmacologic Prophylaxis ordered Assessment and Plan Time with Patient: Greater than 30
[2022-08-21] MEDS: methylPREDNISolone SOD SUCCI 40 MG/ML 1 ML VIAL IV SCH ×2 (15:39→22:05)
[2022-08-21 16:49] LABS: Glucose,Whole Blood 295 mg/dL (70-110)
[2022-08-21] MEDS ORDERED: PRIMIDONE 50 MG TAB PO SCH (21:00)
[2022-08-21] MEDS ORDERED: traZODone HCL 50 MG TAB PO SCH (21:00)
[2022-08-21] MEDS ORDERED: GABAPENTIN 400 MG CAP PO SCH (21:00)
[2022-08-21 21:52] LABS: Glucose,Whole Blood 231 mg/dL (70-110)
[2022-08-22 05:58] LABS: Glucose,Whole Blood 164 mg/dL (70-110)
[2022-08-22] MEDS: INSULIN ASPART (NovoLOG) 100 UNIT/ML VIAL SQ SCH ×2 (06:34→11:55)
[2022-08-22] MEDS: methylPREDNISolone SOD SUCCI 40 MG/ML 1 ML VIAL IV SCH ×2 (07:32→11:55)
[2022-08-22] MEDS: amLODIPine 5 MG TAB PO SCH (08:31)
[2022-08-22] MEDS: DULoxetine HCL 60 MG CAPSULE.DR PO SCH (08:31)
[2022-08-22] MEDS: GABAPENTIN 400 MG CAP PO SCH (08:31)
[2022-08-22] MEDS: ESCITALOPRAM 10 MG TAB PO SCH (08:31)
[2022-08-22] MEDS: ATORVASTATIN 80 MG TAB PO SCH (08:31)
[2022-08-22] MEDS: METOPROLOL SUCCINATE (ER) 25 MG TAB.ER.24H PO SCH (08:31)
[2022-08-22] MEDS: lisinopriL 20 MG TAB PO SCH (08:31)
[2022-08-22] MEDS: ASPIRIN 81 MG PO SCH (08:31)
[2022-08-22] MEDS: PANTOPRAZOLE 40 MG TABLET PO SCH (08:31)
[2022-08-22] MEDS: TAMSULOSIN 0.4 MG CAP.ER.24H PO SCH (08:31)
[2022-08-22] MEDS: NICOTINE 21MG/24HR PATCH TRANSDERM SCH (08:34)
[2022-08-22] MEDS: HYDROcodone/APAP 10-325MG 1 EACH TAB PO PRN (08:40)
[2022-08-22] MEDS: IPRATROPIUM-ALBUTEROL 3 ML NEB INHALATION SCH ×2 (08:41→11:20)
[2022-08-22 08:42] VITALS: BP 174/74; TEMP 98
[2022-08-22] MEDS: SYMBICORT 160-4.5 MCG INHALER INHALATION SCH (08:42)
[2022-08-22] MEDS: BUDESONIDE 1 MG/2 ML NEBU INHALATION SCH (08:42)
[2022-08-22 08:45] VITALS: RESP 18
[2022-08-22 11:34] LABS: Glucose,Whole Blood 268 mg/dL (70-110)
[2022-08-22 11:36] VITALS: PULSE 62
--- NOTE | 2022-08-22 12:35 | P.PN ---
Subjective Progress Note Date: 08/22/22 This is a 72-year-old advanced COPD, oxygen dependent, comes in with a 2 days of being discharged because of some issues with his pulse ox dropping. His current pulse ox is above 90% liters of oxygen by nasal cannula. The patient states that he was unable to bring his pulse ox at home above 90% even while titrating his FiO2. Based on that, he came into the hospital he was admitted. He is known to have multiple comorbidities. He has diabetes mellitus type 2, peripheral vascular disease and above the amputation of the left. He has also hypertension. He has undergone a previous amputation. He has no other complaints. No chest pain. No pleurisy or hemoptysis. I reviewed the chest x- ray and it shows no acute abnormalities. No other complaints otherwise for now. No altered mentation. No signs of any CO2 narcosis. The patient has been maintained on Symbicort on outpatient basis addition to DuoNeb updrafts. I believe he quit smoking. On today's evaluation of 08/22/2022, the patient is being treated for an acute COPD exacerbation. He is on Solu-Medrol 40 mg every 12 hours. He is on DuoNeb nebulized treatments [id number]. He is on 3 L of oxygen by nasal cannula. No specific complaints. No worsening in his oxygenation. No new labs from today. No chest pain. Tolerating his diet. Active. Objective - Vital Signs Vital signs: Vital Signs Temp 98.0 F 08/22/22 07:40 Pulse 58 L 08/22/22 08:53 Resp 18 08/22/22 08:53 BP 174/74 08/22/22 07:40 Pulse Ox 97 08/22/22 08:43 FiO2 Intake & Output 08/21/22 08/22/22 08/22/22 18:59 06:59 18:59 Intake Total 1100 Output Total 400 Balance 700 Weight 54.431 kg Intake: Oral 1100 Output: Urine 400 Other: Voiding Method Bedside Commode # Voids 3 1 # Bowel Movements 1 - Exam GENERAL EXAM: Alert, 72-year-old male, on 3 L nasal cannula, comfortable in no apparent distress. HEAD: Normocephalic. EYES: Normal reaction of pupils, equal size. NOSE: Clear with pink turbinates. THROAT: No erythema or exudates. NECK: No masses, no JVD. CHEST: No chest wall deformity. LUNGS: Equal air entry with bilateral wheeze, few scattered rhonchi. CVS: S1 and S2 normal with no audible murmur, regular rhythm. ABDOMEN: No hepatosplenomegaly, normal bowel sounds, no guarding or rigidity. SPINE: No scoliosis or deformity SKIN: No rashes CENTRAL NERVOUS SYSTEM: No focal deficits, tone is normal in all 4 extremities. EXTREMITIES: Left [id number] amputation. There is no peripheral edema. No clubbing, no cyanosis. Peripheral pulses are intact. - Labs CBC & Chem 7: 08/20/22 18:05 08/20/22 18:05 Labs: Abnormal Lab Results - Last 24 Hours (Table) 08/21/22 08/21/22 08/22/22 Range/Units 16:47 21:50 05:56 POC Glucose (mg/dL) 295 H 231 H 164 H (70-110) mg/dL Assessment and Plan Plan: Advanced COPD with fluctuation in pulse ox. No clear signs of exacerbation. The patient infected recovering from recent COPD exacerbations vaccination in stable for now. Chest x-ray findings are also stable. The CTA was also reviewed. No indication for any pneumonia 30 to the interpretation given by the radiologist. There is no evidence of any pulmonary embolism. History of heavy tobacco use, for 55 years, at 2-3 packs a day, has not smoked for quite some time Diabetes mellitus type 2 Hypertension Coronary artery disease myocardial infarction, with previous PCI and stent placement Peripheral vascular occlusive disease, status post high left above-knee amputation, 2009 History of migraine cephalgia History of shingles Ki's gangrene Prior history of MRSA infection Plan: Continue same treatment Prednisone burst taper at time of discharge Try to get this patient on Trelegy Ellipta one inhalation a day Has home O2 Nebulizer at home that he needs to continue 3 times a day aggressive pulmonary toileting
--- NOTE | 2022-08-23 22:20 | P.DS ---
Providers Date of admission: 08/20/22 21:58 Attending physician: Fidencio Barrientos Consults: 08/20/22 21:58 Consult Physician Routine Consulting Provider: Ethan Jacobo Consult Reason/Comments: COPD exacerbation Do you want consulting provider notified?: Yes, Notify in am Primary care physician: Fidencio Barrientos [facility] Course: Final Diagnosis Shortness of breath, with advanced COPD, does not appear to be in acute exacerbation Chronic hypoxic respiratory failure wears 3 L outpatient secondary to COPD Recent hospitalization for COPD exacerbation and discharged 2 days prior Diabetes mellitus, type II Hypertension history History of coronary artery disease with stenting Hyperlipidemia History of left [id number]-pctw amputation in 2009 Former smoker Occasional THC use Full Code Discharge Disposition Patient is stable for discharge. Recommending to continue on 3L nasal cannula. Continue on oral steroid taper from previous discharge. Pulmonary recommending patient to discharge on trelegy inhaler once daily. Patient unable to pick this up until wednesday. Patient to remain on symbicort until Wednesday and transition to the Trelegy. Recommending close follow up with PCP Dr. Barrientos and certified wellness program coordinator Dr. Flanagan on discharge. Hospital Course This is a 72-year-old male who presented to the emergency department as he was having increased shortness of breath and difficulty with keeping his oxygen saturations above 93% on his 3 L requiring 4-4-1/2 L. Patient has advanced COPD and was recently hospitalized and discharged 2 days prior with his primary care provider Dr. Barrientos and was recently on antibiotics and discharged home. Patient reports in the morning he woke up and had oxygen saturations of 98% although during the day and with minimal exertion his oxygen saturation would quickly into the low 80s requiring more oxygen. Patient came here for further evaluation. Patient was admitted with pulmonary on consult for concerns of shortness of breath with COPD exacerbation. Chest x-ray in the ER showed bibasilar radiographic findings suspect bibasilar bronchopneumonia although appears more bronchial like bronchitis and patient is afebrile and does not clinically look infectious. Patient also underwent CTA of the chest which was negative for pulmonary embolism along with multifocal ill-defined pulmonary opacities that could correlate with multifocal bronchopneumonia and recommend a three-month follow-up CT. proBNP elevated at 3370. Patient was admitted under observation and started on IV solumedrol. Patient is given nicotine patch. Continued on 3L of oxygen overnight with improvement in shortness of breath. Continues with coarse scattered ronchi overall wheezing has improved. Patient was negative for influenza, COVID, and RSV. Was evaluated by pulmonary services and recommend to stop the symbicort and transition to daily trelegy inhaler with albuterol as needed. Patient to continue on 3L of oxygen at all times. Patient to continue same oral steroid taper from discharge 2 days prior. Denies shortness of breath, Denies chest pain. Ambulating without difficulty and maintaining oxygen saturations on the 3L of oxygen now at 97%. Patient will be discharge. Please see medication reconciliation for a list of current medication. Thank you for allowing us to participate in the care of this patient. The impression and plan of care has been dictated by Devi Vergara, Nurse Practitioner as directed. Dr. Bay MD I have performed a history and physical examination and medical decision making of this patient, discussed the same with the dictator, and agree with the dictators assessment and plan as written, documented as a scribe. Based on total visit time, I have performed more than 50% of this visit. Patient Condition at Discharge: Good Plan - Discharge Summary Discharge Rx Participant: No New Discharge Prescriptions: New Fluticasone/Umeclidin/Vilanter [Trelegy Ellipta 200-62.5-25] 1 puff INHALATION DAILY #1 each Continue Aspirin 81 mg PO DAILY DULoxetine HCL [Cymbalta] 60 mg PO DAILY lisinopriL [Prinivil] 20 mg PO DAILY Pantoprazole Sodium [Protonix] 40 mg PO DAILY Escitalopram [Lexapro] 10 mg PO DAILY amLODIPine [Norvasc] 5 mg PO DAILY Albuterol Sulfate [Proair Hfa] 2 puff INHALATION RT-QID PRN PRN Reason: Shortness Of Breath Gabapentin [Neurontin] 400 mg PO DAILY Gabapentin [Neurontin] 800 mg PO HS Primidone [Mysoline] 25 mg PO HS Baclofen [Lioresal] 10 mg PO DAILY PRN PRN Reason: Muscle Pain Nicotine 21Mg/24Hr Patch [Habitrol] 1 patch TRANSDERM DAILY #30 patch Nystatin 100,000Unit/gm Cream [Mycostatin Cream] 1 applic TOPICAL BID PRN PRN Reason: groin Nitroglycerin Sl Tabs [Nitrostat] 0.4 mg SL Q5M PRN PRN Reason: Chest Pain Ipratropium-Albuterol Nebulize [Duoneb 0.5 mg-3 mg/3 ml Soln] 3 ml INHALATION RT-QID each Atorvastatin [Lipitor] 80 mg PO DAILY #30 tab Metoprolol Succinate (ER) [Toprol XL] 25 mg PO DAILY #30 tab.er.24h Naloxone [Narcan] 1 mg SQ ONCE PRN PRN Reason: OVERDOSE Tamsulosin [Flomax] 0.4 mg PO DAILY traZODone HCL [Desyrel] 50 mg PO HS tab HYDROcodone/APAP 10-325MG [Patterson 10-325] 1 tab PO Q6HR PRN PRN Reason: Pain Albuterol Nebulized [Ventolin Nebulized] 2.5 mg INHALATION RT-Q2H PRN ml PRN Reason: Shortness Of Breath Or Wheezing SILVER sulfADIAZINE Cream [Silvadene 1% Cream] 1 applic TOPICAL DAILY Loratadine [Claritin] 10 mg PO DAILY predniSONE See Taper PO DIRECTED Discontinued Budesonide-Formot 160-4.5 Mcg [Symbicort 160-4.5 Mcg Inhaler] 2 puff INHALATION RT-BID Budesonide [Pulmicort] 1 mg INHALATION RT-BID 30 Days #60 each Discharge Medication List Aspirin 81 mg PO DAILY 01/14/14 [History] DULoxetine HCL [Cymbalta] 60 mg PO DAILY 01/14/14 [History] lisinopriL [Prinivil] 20 mg PO DAILY 01/14/14 [History] Escitalopram [Lexapro] 10 mg PO DAILY 06/13/18 [History] Pantoprazole Sodium [Protonix] 40 mg PO DAILY 06/13/18 [History] amLODIPine [Norvasc] 5 mg PO DAILY 06/13/18 [History] Atorvastatin [Lipitor] 80 mg PO DAILY #30 tab 07/20/20 [Rx] Metoprolol Succinate (ER) [Toprol XL] 25 mg PO DAILY #30 tab.er.24h 07/20/20 [Rx] Albuterol Sulfate [Proair Hfa] 2 puff INHALATION RT-QID PRN 08/29/21 [History] Naloxone [Narcan] 1 mg SQ ONCE PRN 08/29/21 [History] Tamsulosin [Flomax] 0.4 mg PO DAILY 08/29/21 [History] traZODone HCL [Desyrel] 50 mg PO HS tab 09/05/21 [Rx] Baclofen [Lioresal] 10 mg PO DAILY PRN 07/12/22 [History] Gabapentin [Neurontin] 400 mg PO DAILY 07/12/22 [History] Gabapentin [Neurontin] 800 mg PO HS 07/12/22 [History] HYDROcodone/APAP 10-325MG [Patterson 10-325] 1 tab PO Q6HR PRN 07/12/22 [History] Primidone [Mysoline] 25 mg PO HS 07/12/22 [History] Albuterol Nebulized [Ventolin Nebulized] 2.5 mg INHALATION RT-Q2H PRN ml 07/14/22 [Rx] Nicotine 21Mg/24Hr Patch [Habitrol] 1 patch TRANSDERM DAILY #30 patch 07/14/22 [Rx] Loratadine [Claritin] 10 mg PO DAILY 08/13/22 [History] Nitroglycerin Sl Tabs [Nitrostat] 0.4 mg SL Q5M PRN 08/13/22 [History] Nystatin 100,000Unit/gm Cream [Mycostatin Cream] 1 applic TOPICAL BID PRN 08/13/22 [History] SILVER sulfADIAZINE Cream [Silvadene 1% Cream] 1 applic TOPICAL DAILY 08/13/22 [History] Ipratropium-Albuterol Nebulize [Duoneb 0.5 mg-3 mg/3 ml Soln] 3 ml INHALATION RT-QID each 08/18/22 [Rx] predniSONE See Taper PO DIRECTED 08/20/22 [History] Fluticasone/Umeclidin/Vilanter [Trelegy Ellipta 200-62.5-25] 1 puff INHALATION DAILY #1 each 08/22/22 [Rx] Follow up Appointment(s)/Referral(s): Services,[facility] [NON-STAFF] - 1-2 Days Fidencio Barrientos MD [Primary Care Provider] - 1-2 days Patricio Flanagan MD [STAFF PHYSICIAN] - 1-2 Days Patient Instructions/Handouts: COPD (Chronic Obstructive Pulmonary Disease) (DC) Activity/Diet/Wound Care/Special Instructions: Continue same oral prednisone taper. Continue on oxygen at 3L nasal cannula. Continue on albuterol and symbicort until you are able to cloth picker the trelegy inhaler. Stop the symbicort when you begin to use trelegy once daily. Continue albuterol as needed. Follow up with pulmonary on discharge. Discharge Disposition: HOME WITH HOME HEALTH SERVICES
== END 2022-08-22 14:00 | disposition home health service (06) ==
LOC: EC 17:03 → 4SSUR 21:58
PROVIDERS: ADMIT Internal Medicine; ATTEND Internal Medicine
DX: J44.9 Chronic obstructive pulmonary disease, unspecified (principal); J96.11 Chronic respiratory failure with hypoxia; E11.51 Type 2 diabetes mellitus with diabetic peripheral angiopathy without gangrene; I10 Essential (primary) hypertension; I25.10 Atherosclerotic heart disease of native coronary artery without angina pectoris; I25.84 Coronary atherosclerosis due to calcified coronary lesion; F32.A Depression, unspecified; Z95.5 Presence of coronary angioplasty implant and graft; E78.5 Hyperlipidemia, unspecified; Z89.612 Acquired absence of left leg above knee; Z87.891 Personal history of nicotine dependence; Z99.81 Dependence on supplemental oxygen; I25.2 Old myocardial infarction; M19.90 Unspecified osteoarthritis, unspecified site; G43.909 Migraine, unspecified, not intractable, without status migrainosus; Z80.3 Family history of malignant neoplasm of breast; Z83.49 Family history of other endocrine, nutritional and metabolic diseases; Z86.14 Personal history of Methicillin resistant Staphylococcus aureus infection; Z86.19 Personal history of other infectious and parasitic diseases; Z79.82 Long term (current) use of aspirin; Z79.899 Other long term (current) drug therapy; Z79.51 Long term (current) use of inhaled steroids; Z88.1 Allergy status to other antibiotic agents
CPT/HCPCS: 96376; 96374; 96375; 99285; 36415; 94640 ×5; 94760 ×2; 93005; 83880; 80053; 83605; 83735; 84484; 85025; 85610; 85730; 87636; 71046; 71275; G0378 ×3; J2920; J2930 ×2; J0696; Q9967

== ENCOUNTER 2022-08-31 12:30 | Emergency (ER) | payer MEDICARE ==
[2022-08-31] MEDS ORDERED: DIPH,PERTUS(ACELL)TETVAC-LF 0.5 ML VIAL IM ONE (12:45)
[2022-08-31] MEDS ORDERED: IPRATROPIUM-ALBUTEROL 3 ML NEB INHALATION STA (12:45)
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
--- NOTE | 2022-08-31 13:35 | XR ---
EXAMINATION TYPE: XR chest 2V DATE OF EXAM: 08/31/2022 COMPARISON: 08/20/2022 HISTORY: 72 year-old male shortness of breath, difficulty breathing TECHNIQUE: AP and lateral views FINDINGS: Dextroconvex curvature. Heart is enlarged. Hyperinflation. Patchy medial left basilar opacity. Some d ensity at the right upper lobe as well. No pleural effusion. Coronary stent noted. IMPRESSION: 1. COPD and borderline cardiac megaly. 2. Some focal density at the right upper lobe for which a follow-up CT chest in 3-6 months can reasse ss. Possible pleural parenchymal scarring. 3. Some patchy medial left basilar atelectasis versus infiltrate/pneumonia.
[2022-08-31 14:23] VITALS: BP 125/64; PULSE 62; RESP 16; TEMP 97.8
== END 2022-08-31 14:44 | disposition home or self-care (01) ==
LOC: EC 12:30
DX: T20.24XA Burn of second degree of nose (septum), initial encounter (principal); I10 Essential (primary) hypertension; I25.2 Old myocardial infarction; J44.9 Chronic obstructive pulmonary disease, unspecified; E78.5 Hyperlipidemia, unspecified; F32.A Depression, unspecified; M19.90 Unspecified osteoarthritis, unspecified site; Z79.52 Long term (current) use of systemic steroids; Z79.82 Long term (current) use of aspirin; Z79.899 Other long term (current) drug therapy; Z87.891 Personal history of nicotine dependence; Z88.1 Allergy status to other antibiotic agents; Z23 Encounter for immunization
CPT/HCPCS: 71046; 90471; 90715; 94640; 99284

== ENCOUNTER 2023-01-14 04:08 | Emergency (ER) | payer MEDICARE ==
[2023-01-14 04:20] VITALS: TEMP 98.5
[2023-01-14] MEDS ORDERED: HYDROmorphone 1 MG/ML 1 ML SYRINGE IM STA (04:53)
--- NOTE | 2023-01-14 04:55 | ED ---
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 Has a history of fractures in the spine due to fall out of his power chair proximally 2 years ago since that time he suffered from chronic pain he is on [place] 10 mg every 6 hours he's been taking these for has persistent pain in his back. He denies any new injuries. No falls. This pain is his usual typical pain is just worse than usual. No change in bowel or bladder habits, no fevers, no injuries. Otherwise at his baseline eating and drinking well and she may do his activities of daily living. - Related Data Home Medications Medication Instructions Recorded Confirmed Aspirin 81 mg PO DAILY 01/14/14 08/20/22 DULoxetine HCL [Cymbalta] 60 mg PO DAILY 01/14/14 08/20/22 lisinopriL [Prinivil] 20 mg PO DAILY 01/14/14 08/20/22 Escitalopram [Lexapro] 10 mg PO DAILY 06/13/18 08/20/22 Pantoprazole Sodium [Protonix] 40 mg PO DAILY 06/13/18 08/20/22 amLODIPine [Norvasc] 5 mg PO DAILY 06/13/18 08/20/22 Albuterol Sulfate [Proair Hfa] 2 puff INHALATION RT-QID PRN 08/29/21 08/20/22 Naloxone [Narcan] 1 mg SQ ONCE PRN 08/29/21 08/20/22 Tamsulosin [Flomax] 0.4 mg PO DAILY 08/29/21 08/20/22 Baclofen [Lioresal] 10 mg PO DAILY PRN 07/12/22 08/20/22 Gabapentin [Neurontin] 400 mg PO DAILY 07/12/22 08/20/22 Gabapentin [Neurontin] 800 mg PO HS 07/12/22 08/20/22 HYDROcodone/APAP 10-325MG [[place] 1 tab PO Q6HR PRN 07/12/22 08/20/22 10-325] Primidone [Mysoline] 25 mg PO HS 07/12/22 08/20/22 Loratadine [Claritin] 10 mg PO DAILY 08/13/22 08/20/22 Nitroglycerin Sl Tabs [Nitrostat] 0.4 mg SL Q5M PRN 08/13/22 08/20/22 Nystatin 100,000Unit/gm Cream 1 applic TOPICAL BID PRN 08/13/22 08/20/22 [Mycostatin Cream] SILVER sulfADIAZINE Cream 1 applic TOPICAL DAILY 08/13/22 08/20/22 [Silvadene 1% Cream] predniSONE See Taper PO DIRECTED 08/20/22 08/20/22 Previous Rx's Medication Instructions Recorded Atorvastatin [Lipitor] 80 mg PO DAILY #30 tab 07/20/20 Metoprolol Succinate (ER) [Toprol 25 mg PO DAILY #30 tab.er.24h 07/20/20 XL] traZODone HCL [Desyrel] 50 mg PO HS tab 09/05/21 Albuterol Nebulized [Ventolin 2.5 mg INHALATION RT-Q2H PRN ml 07/14/22 Nebulized] Nicotine 21Mg/24Hr Patch [Habitrol] 1 patch TRANSDERM DAILY #30 patch 07/14/22 Ipratropium-Albuterol Nebulize 3 ml INHALATION RT-QID each 08/18/22 [Duoneb 0.5 mg-3 mg/3 ml Soln] Fluticasone/Umeclidin/Vilanter 1 puff INHALATION DAILY #1 each 08/22/22 [Trelegy Ellipta 200-62.5-25] Mupirocin 2% Oint [Bactroban 2% 1 applic TOPICAL TID #22 gm 08/31/22 Oint] Allergies Allergy/AdvReac Type Severity Reaction Status Date / Time azithromycin [From Zithromax] Allergy Rash/Hives Verified 01/14/23 04:10 Review of Systems ROS Statement: Those systems with pertinent positive or pertinent negative responses have been documented in the HPI. ROS Other: All systems not noted in ROS Statement are negative. 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 knee wound + FOR MRSA. History of high left above-knee amputation done approximately 2009. Last Myocardial Infarction Date:: 2003 History of Any Multi-Drug Resistant Organisms: Acinetobacter (MDRO), MRSA Date of last positivie culture/infection: 04/02/16 MDRO Source:: LT KNEE WOUND Past Surgical History: Heart Catheterization With Stent, Orthopedic Surgery Additional Past Surgical History / Comment(s): STENTS TO LEFT GROIN, LEFT ABOVE THE KNEE AMPUTATION, unsuccessful revascularization left leg, shoulder surgery, surgical debridement of necrotic tissue left scrotal area, LT AKA 03/03/16. left testicle removed. heart stent x1 broken left hip Past Anesthesia/Blood Transfusion Reactions: No Reported Reaction Date of Last Stent Placement:: 2006 Past Psychological History: Depression Smoking Status: Former smoker Past Alcohol Use History: None Reported Past Drug Use History: Marijuana - Past Family History Sister(s) Family Medical History: Cancer Additional Family Medical History / Comment(s): double mastectomy, still surviving Father Family Medical History: No Reported History Mother Family Medical History: No Reported History Additional Family Medical History / Comment(s): hypoglycemia General Exam - General Exam Comments Initial Comments: Physical Exam GENERAL: Chronically ill-appearing elderly gentleman HENT: Normocephalic, Atraumatic. EYES: PERRL, EOMI PULMONARY: Unlabored respirations. CARDIOVASCULAR: RRR ABDOMEN: Non-distended SKIN: Chronic changes of lower extremity consistent with peripheral arterial disease : Deferred NEUROLOGIC: Alert and oriented Normal speech MUSCULOSKELETAL: Left above-knee amputation PSYCHIATRIC: No SI/HI Limitations: no limitations Course Vital Signs 01/14/23 01/14/23 04:10 05:40 Temperature 98.5 F Pulse Rate 67 83 Respiratory 18 18 Rate Blood Pressure 145/81 162/75 O2 Sat by Pulse 98 97 Oximetry Medical Decision Making - Medical Decision Making Was pt. sent in by a medical professional or institution (, PA, MANAGER WHOLESALE, urgent care, hospital, or intermediate...) When possible be specific @ -No Did you speak to anyone other than the patient for history (EMS, parent, family, police, friend...)? What history was obtained from this source @ -No Did you review nursing and triage notes (agree or disagree)? Why? @ -I reviewed and agree with nursing and triage notes Were old charts reviewed (outside hosp., previous admission, EMS record, old EKG, old radiological studies, urgent care reports/EKG's, intermediate records)? Report findings @ -No old charts were reviewed Differential Diagnosis (chest pain, altered mental status, abdominal pain women, abdominal pain men, vaginal bleeding, weakness, fever, dyspnea, syncope, headache, dizziness, GI bleed, back pain, seizure, CVA, palpatations, mental health, musculoskeletal)? @ -not applicable EKG interpreted by me (3pts min.). @ -As above X-rays interpreted by me (1pt min.). @ -None done CT interpreted by me (1pt min.). @ -None done U/S interpreted by me (1pt. min.). @ -None done What testing was considered but not performed or refused? (CT, X-rays, U/S, labs)? Why? @ -None What meds were considered but not given or refused? Why? @ -None Did you discuss the management of the patient with other professionals (professionals i.e. , PA, MANAGER WHOLESALE, lab, RT, psych nurse, social service agency director, manager managed care, teacher, global chief creative officer, case planner)? Give summary @ -No Was smoking cessation discussed for >3mins.? @ -No Was critical care preformed (if so, how long)? @ -No Were there social determinants of health that impacted care today? How? (Homelessness, low income, unemployed, alcoholism, drug addiction, transportation, low edu. Level, literacy, decrease access to med. care, penitentiary, rehab)? @ -No Was there de-escalation of care discussed even if they declined (Discuss DNR or withdrawal of care, Hospice)? DNR status @ -No What co-morbidities impacted this encounter? (DM, HTN, Smoking, COPD, CAD, Cancer, CVA, ARF, Chemo, Hep., AIDS, mental health diagnosis, sleep apnea, morbid obesity)? @ -None Was patient admitted / discharged? Hospital course, mention meds given and route, prescriptions, significant lab abnormalities, going to OR and other pertinent info. @ -Discharge The patient was seen and evaluated, patient's chronic pain is exacerbated not relieved by his oral medications. No new pains no new injuries. Physical exam is baseline for this patient. History with single dose of IM Dilaudid he reported feeling much better as comfortable plan for discharge home request that we contact a wheelchair van for his discharge. Undiagnosed new problem with uncertain prognosis? @ -No Drug Therapy requiring intensive monitoring for toxicity (Heparin, Nitro, Insulin, Cardizem)? @ -No Were any procedures done? @ -No Diagnosis/symptom? @ -Chronic pain Acute, or Chronic, or Acute on Chronic? @ -Or neck Uncomplicated (without systemic symptoms) or Complicated (systemic symptoms)? @ -default Side effects of treatment? @ -No Exacerbation, Progression, or Severe Exacerbation? @ -No Poses a threat to life or bodily function? How? (Chest pain, [place], [place], pneumonia, PE, COPD, DKA, ARF, appy, cholecystitis, CVA, Diverticulitis, Homicidal, Suicidal, threat to staff... and all critical care pts) @ -No Disposition Clinical Impression: Back pain Disposition: HOME SELF-CARE Condition: Stable Instructions (If sedation given, give patient instructions): Acute Low Back Pain (ED) Is patient prescribed a controlled substance at d/c from ED?: No Referrals: Fidencio Barrientos MD [Primary Care Provider] - 1-2 days
[2023-01-14 08:30] VITALS: BP 130/86; PULSE 86; RESP 20
== END 2023-01-14 08:29 | disposition home or self-care (01) ==
LOC: EC 04:08
DX: M54.9 Dorsalgia, unspecified (principal); J44.9 Chronic obstructive pulmonary disease, unspecified; E78.5 Hyperlipidemia, unspecified; I25.2 Old myocardial infarction; M19.90 Unspecified osteoarthritis, unspecified site; F32.A Depression, unspecified; F12.90 Cannabis use, unspecified, uncomplicated; I10 Essential (primary) hypertension; Z87.891 Personal history of nicotine dependence; Z79.82 Long term (current) use of aspirin; Z79.899 Other long term (current) drug therapy; Z79.1 Long term (current) use of non-steroidal anti-inflammatories (NSAID); Z88.1 Allergy status to other antibiotic agents; Z90.79 Acquired absence of other genital organ(s)
CPT/HCPCS: 99283; 96372; J1170

== ENCOUNTER 2023-03-23 03:10 | Inpatient (IN) | payer MEDICARE ==
[2023-03-23 03:39] LABS: Basophils % (A) 1 %; Eosinophils # (A) 0.2 k/uL (0-0.7); Eosinophils % (A) 4 %; HCT 29.4 % (39.0-53.0); HGB 8.8 gm/dL (13.0-17.5); Hypochromasia Marked; Lymphocytes # (A) 0.9 k/uL (1.0-4.8); Lymphocytes % (A) 15 %; MCH 25.9 pg (25.0-35.0); MCHC 29.9 g/dL (31.0-37.0); MCV 86.6 fL (80.0-100.0); Mean Platelet Volume 8.5; Monocytes # (A) 0.3 k/uL (0-1.0); Monocytes % (A) 5 %; Neutrophils # (A) 4.3 k/uL (1.3-7.7); Neutrophils % (A) 73 %; Platelet Count 382 k/uL (150-450); RBC 3.39 m/uL (4.30-5.90); RDW 15.5 % (11.5-15.5); WBC 5.8 k/uL (3.8-10.6)
[2023-03-23] MEDS ORDERED: IPRATROPIUM-ALBUTEROL 3 ML NEB INHALATION STA (03:46)
[2023-03-23 03:50] LABS: ALT 20 U/L (4-49); AST 27 U/L (17-59); African American GFR (CKD) >90 (>60 ml/min/1.73 sqM); Alkaline Phosphatase 65 U/L (38-126); Anion Gap 5 mmol/L; Blood Urea Nitrogen 37 mg/dL (9-20); Calcium 8.4 mg/dL (8.4-10.2); Carbon Dioxide 26 mmol/L (22-30); Chloride 107 mmol/L (98-107); Glucose 154 mg/dL (74-99); Non-African American GFR(CKD) >90 (>60 ml/min/1.73 sqM); Potassium 4.9 mmol/L (3.5-5.1); Sodium 138 mmol/L (137-145); Total Bilirubin 0.4 mg/dL (0.2-1.3); Total Protein 5.6 g/dL (6.3-8.2)
[2023-03-23 03:59] LABS: Albumin 2.9 g/dL (3.5-5.0)
[2023-03-23 04:05] LABS: Magnesium 2.1 mg/dL (1.6-2.3)
[2023-03-23 04:11] LABS: Partial Thromboplastin Time 24.4 sec (22.0-30.0)
--- NOTE | 2023-03-23 04:29 | ED ---
SOB HPI - General Chief Complaint: Shortness of Breath Stated Complaint: SOB Time Seen by Provider: 03/23/23 03:49 Source: EMS Mode of arrival: EMS Limitations: no limitations - History of Present Illness Initial Comments: 's patient is 72-year-old man with history of COPD, who presents to emergency Department with complaints of worsening of his shortness of breath and cough going back to 3 days now. Patient states that he checks his pulse oximetry n umbers at home and over the course of last night into this morning when he has a coughing spell the sats decreased to the 70s. Patient has not noted fevers. He has having cough with occasional yellow sputum. Patient denies chest pain. Patient has noted that his right leg has a little bit of swelling. He has not noted change in urination or bowel movements. MD Complaint: shortness of breath, cough -: days(s) Severity scale (1-10): 0 Consistency: constant Improves With: nothing Worsens With: lying flat, coughing Known History Of: COPD Associated Symptoms: cough, sputum production Treatments Prior to Arrival: oxygen - Related Data Home Medications Medication Instructions Recorded Confirmed Aspirin 81 mg PO DAILY 01/14/14 03/23/23 DULoxetine HCL [Cymbalta] 60 mg PO DAILY 01/14/14 03/23/23 lisinopriL [Prinivil] 20 mg PO DAILY 01/14/14 03/23/23 Pantoprazole Sodium [Protonix] 40 mg PO DAILY 06/13/18 03/23/23 amLODIPine [Norvasc] 5 mg PO DAILY 06/13/18 03/23/23 Albuterol Sulfate [Proair Hfa] 2 puff INHALATION RT-QID PRN 08/29/21 03/23/23 Tamsulosin [Flomax] 0.4 mg PO DAILY 08/29/21 03/23/23 HYDROcodone/APAP 10-325MG [[place] 1 tab PO Q6HR PRN 07/12/22 03/23/23 10-325] Primidone [Mysoline] 25 mg PO HS 07/12/22 03/23/23 Loratadine [Claritin] 10 mg PO DAILY 08/13/22 03/23/23 Nitroglycerin Sl Tabs [Nitrostat] 0.4 mg SL Q5M PRN 08/13/22 03/23/23 Albuterol Nebulized [Ventolin 2.5 mg INHALATION RT-Q6H PRN 03/23/23 03/23/23 Nebulized] Clotrimazole/Betameth Cream 1 applic TOPICAL DAILY PRN 03/23/23 03/23/23 [Lotrisone] Escitalopram [Lexapro] 20 mg PO DAILY 03/23/23 03/23/23 Fluticasone/Umeclidin/Vilanter 1 puff INHALATION RT-DAILY 03/23/23 03/23/23 [Trelegy Ellipta 200-62.5-25] Gabapentin 600 mg PO TID 03/23/23 03/23/23 Megestrol Acetate 400 mg PO DAILY 03/23/23 03/23/23 traZODone HCL 100 mg PO HS 03/23/23 03/23/23 Previous Rx's Medication Instructions Recorded Atorvastatin [Lipitor] 80 mg PO DAILY #30 tab 07/20/20 Metoprolol Succinate (ER) [Toprol 25 mg PO DAILY #30 tab.er.24h 07/20/20 XL] Clopidogrel [Plavix] 75 mg PO DAILY 30 Days #30 tab 03/26/23 Doxycycline [Vibramycin] 100 mg PO BID 4 Days #8 cap 03/26/23 predniSONE 10 mg PO DIRECTED 12 Days #30 03/26/23 tab Allergies Allergy/AdvReac Type Severity Reaction Status Date / Time azithromycin [From Zithromax] Allergy Rash/Hives Verified 03/23/23 07:25 Review of Systems ROS Statement: Those systems with pertinent positive or pertinent negative responses have been documented in the HPI. ROS Other: All systems not noted in ROS Statement are negative. Constitutional: Denies: fever, chills Respiratory: Reports: cough, dyspnea, wheezes. Denies: hemoptysis Cardiovascular: Reports: edema. 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 knee wound + FOR MRSA. History of high left above-knee amputation done approximately 2009. Last Myocardial Infarction Date:: 2003 History of Any Multi-Drug Resistant Organisms: Acinetobacter (MDRO), MRSA Date of last positivie culture/infection: 04/02/16 MDRO Source:: LT KNEE WOUND Past Surgical History: Heart Catheterization With Stent, Orthopedic Surgery Additional Past Surgical History / Comment(s): STENTS TO LEFT GROIN, LEFT ABOVE THE KNEE AMPUTATION, unsuccessful revascularization left leg, shoulder surgery, surgical debridement of necrotic tissue left scrotal area, LT AKA 03/03/16. left testicle removed. heart stent x1 broken left hip Past Anesthesia/Blood Transfusion Reactions: No Reported Reaction Date of Last Stent Placement:: 2006 Past Psychological History: Depression Smoking Status: Former smoker Past Alcohol Use History: None Reported Past Drug Use History: Marijuana - Past Family History Sister(s) Family Medical History: Cancer Additional Family Medical History / Comment(s): double mastectomy, still surviving Father Family Medical History: No Reported History Mother Family Medical History: No Reported History Additional Family Medical History / Comment(s): hypoglycemia General Exam Limitations: no limitations General appearance: alert, in no apparent distress Head exam: Present: atraumatic, normocephalic Eye exam: Present: normal appearance ENT exam: Present: mucous membranes dry Neck exam: Present: normal inspection, full ROM Respiratory exam: Present: wheezes, rhonchi, decreased breath sounds. Absent: respiratory distress, rales, stridor, accessory muscle use Cardiovascular Exam: Present: regular rate, normal rhythm, normal heart sounds. Absent: systolic murmur, diastolic murmur, rubs, gallop GI/Abdominal exam: Present: soft. Absent: distended, tenderness, guarding, rebound, rigid, mass Extremities exam: Present: normal inspection, normal capillary refill, other (There is a left leg above-knee amputation). Absent: calf tenderness Back exam: Present: normal inspection. Absent: CVA tenderness (R), CVA tenderness (L) Neurological exam: Present: alert Skin exam: Present: warm, dry, intact, normal color. Absent: rash Course Vital Signs 03/23/23 03/23/23 03/23/23 03:16 03:46 03:53 Temperature 98.6 F Pulse Rate 65 57 L 57 L Respiratory 20 16 Rate Blood Pressure 120/60 136/80 Blood Pressure [Left Arm] O2 Sat by Pulse 92 L 98 Oximetry 03/23/23 03/23/23 03/23/23 04:04 04:18 04:45 Temperature Pulse Rate 56 L 71 Respiratory 17 Rate Blood Pressure 118/82 Blood Pressure [Left Arm] O2 Sat by Pulse 98 93 L Oximetry 03/23/23 03/23/23 03/23/23 05:12 06:28 07:46 Temperature Pulse Rate 67 69 69 Respiratory 17 19 18 Rate Blood Pressure 135/59 139/87 155/81 Blood Pressure [Left Arm] O2 Sat by Pulse 94 L 94 L 94 L Oximetry 03/23/23 03/23/23 03/23/23 07:51 08:02 10:49 Temperature Pulse Rate 77 71 87 Respiratory 18 Rate Blood Pressure 155/93 Blood Pressure [Left Arm] O2 Sat by Pulse 94 L Oximetry 03/23/23 03/23/23 03/23/23 12:30 12:40 13:22 Temperature Pulse Rate 73 61 78 Respiratory 18 Rate Blood Pressure 164/80 Blood Pressure [Left Arm] O2 Sat by Pulse 94 L Oximetry 03/23/23 15:16 Temperature 97.9 F Pulse Rate Respiratory 19 Rate Blood Pressure Blood Pressure 180/74 [Left Arm] O2 Sat by Pulse 94 L Oximetry Medical Decision Making - Medical Decision Making Patient is 72-year-old man here with dyspnea. Exam consistent with COPD exacerbation. The patient's workup does reveal marked elevation of BNP as well, though x-ray not showing florid edema. The patient has had nebulized medications with some mild improvement, not feeling back to his baseline. Case discussed with his physician who will admit. We will obtain echocardiogram as well. The patient had computed tomography scan of the chest which I interpret to not show acute pulmonary embolism. Was pt. sent in by a medical professional or institution (, PA, RESEARCH AND DEVELOPMENT MANAGER, urgent care, hospital, or intermediate...) When possible be specific @ -[No] Did you speak to anyone other than the patient for history (EMS, parent, family, police, friend...)? What history was obtained from this source @ -[No] Did you review nursing and triage notes (agree or disagree)? Why? @ -[I reviewed and agree with nursing and triage notes] Were old charts reviewed (outside hosp., previous admission, EMS record, old EKG, old radiological studies, urgent care reports/EKG's, intermediate records)? Report findings @ -[No old charts were reviewed] Differential Diagnosis (chest pain, altered mental status, abdominal pain women, abdominal pain men, vaginal bleeding, weakness, fever, dyspnea, syncope, headache, dizziness, GI bleed, back pain, seizure, CVA, palpatations, mental health, musculoskeletal)? @ -[Differential Dyspnea: Coronary syndrome, arrhythmia, tamponade, asthma, COPD, pulmonary embolism, pneumonia, pneumothorax, pulmonary effusion, anaphylaxis, diabetic ketoacidosis, flailed chest, pulmonary contusion, diaphragmatic rupture, anemia, neuromuscular, this is not meant to be an all-inclusive list. EKG interpreted by me (3pts min.). @ -[As above] X-rays interpreted by me (1pt min.). @ -[I interpreted as above CT interpreted by me (1pt min.). @ -[I interpreted as above U/S interpreted by me (1pt. min.). @ -[None done] What testing was considered but not performed or refused? (CT, X-rays, U/S, labs)? Why? @ -[None] What meds were considered but not given or refused? Why? @ -[None] Did you discuss the management of the patient with other professionals (professionals i.e. , PA, RESEARCH AND DEVELOPMENT MANAGER, lab, RT, psych nurse, rn social services, emergency dept tech, teacher, chief science officer, patient case coordinator)? Give summary @ -[No] Was smoking cessation discussed for >3mins.? @ -[No] Was critical care preformed (if so, how long)? @ -[No] Were there social determinants of health that impacted care today? How? (Homelessness, low income, unemployed, alcoholism, drug addiction, transportation, low edu. Level, literacy, decrease access to med. care, custodial, rehab)? @ -[No] Was there de-escalation of care discussed even if they declined (Discuss DNR or withdrawal of care, Hospice)? DNR status @ -[No] What co-morbidities impacted this encounter? (DM, HTN, Smoking, COPD, CAD, Cancer, CVA, ARF, Chemo, Hep., AIDS, mental health diagnosis, sleep apnea, morbid obesity)? @ -[COPD Was patient admitted / discharged? Hospital course, mention meds given and route, prescriptions, significant lab abnormalities, going to OR and other pertinent info. @ -[hospital course] Undiagnosed new problem with uncertain prognosis? @ -[No] Drug Therapy requiring intensive monitoring for toxicity (Heparin, Nitro, Insul in, Cardizem)? @ -[No] Were any procedures done? @ -[No] Diagnosis/symptom? @ -[Acute exacerbation of COPD Acute, or Chronic, or Acute on Chronic? @ -[Acute Uncomplicated (without systemic symptoms) or Complicated (systemic symptoms)? @ -[Uncomplicated Side effects of treatment? @ -[No] Exacerbation, Progression, or Severe Exacerbation? @ -[Exacerbation Poses a threat to life or bodily function? How? (Chest pain, [place], [place], pneumonia, PE, COPD, DKA, ARF, appy, cholecystitis, CVA, Diverticulitis, Homicidal, Suicidal, threat to staff... and all critical care pts) @ -[No] - Lab Data Result diagrams: 03/25/23 07:49 03/25/23 07:49 Lab Results 03/23/23 03/23/23 03/23/23 Range/Units 03:22 03:22 03:22 WBC 5.8 (3.8-10.6) k/uL RBC 3.39 L (4.30-5.90) m/uL Hgb 8.8 L (13.0-17.5) gm/dL Hct 29.4 L (39.0-53.0) % MCV 86.6 (80.0-100.0) fL MCH 25.9 (25.0-35.0) pg MCHC 29.9 L (31.0-37.0) g/dL RDW 15.5 (11.5-15.5) % Plt Count 382 (150-450) k/uL MPV 8.5 Neutrophils % 73 % Lymphocytes % 15 % Monocytes % 5 % Eosinophils % 4 % Basophils % 1 % Neutrophils # 4.3 (1.3-7.7) k/uL Lymphocytes # 0.9 L (1.0-4.8) k/uL Monocytes # 0.3 (0-1.0) k/uL Eosinophils # 0.2 (0-0.7) k/uL Basophils # 0.0 (0-0.2) k/uL Hypochromasia Marked PT 11.0 (10.0-12.5) sec INR 1.0 (<1.2) APTT 24.4 (22.0-30.0) sec D-Dimer 0.67 H (<0.60) mg/L FEU Sodium 138 (137-145) mmol/L Potassium 4.9 (3.5-5.1) mmol/L Chloride 107 (98-107) mmol/L Carbon Dioxide 26 (22-30) mmol/L Anion Gap 5 mmol/L BUN 37 H (9-20) mg/dL Creatinine 0.62 L (0.66-1.25) mg/dL Est GFR (CKD-EPI)AfAm >90 (>60 ml/min/1.73 sqM) Est GFR (CKD-EPI)NonAf >90 (>60 ml/min/1.73 sqM) Glucose 154 H (74-99) mg/dL Plasma Lactic Acid Mike (0.7-2.0) mmol/L Calcium 8.4 (8.4-10.2) mg/dL Magnesium (1.6-2.3) mg/dL Iron (65-175) UG/DL TIBC (228-460) UG/DL % Saturation (15.00-50.00) Transferrin (204.0-354.0) mg/dL Total Bilirubin 0.4 (0.2-1.3) mg/dL AST 27 (17-59) U/L ALT 20 (4-49) U/L Alkaline Phosphatase 65 (38-126) U/L Troponin I (0.000-0.034) ng/mL NT-Pro-B Natriuret Pep pg/mL Total Protein 5.6 L (6.3-8.2) g/dL Albumin 2.9 L (3.5-5.0) g/dL Vitamin B12 (200.0-944.0) pg/mL Folate (4.40-31.00) ng/mL 03/23/23 03/23/23 03/23/23 Range/Units 03:22 03:22 03:22 WBC (3.8-10.6) k/uL RBC (4.30-5.90) m/uL Hgb (13.0-17.5) gm/dL Hct (39.0-53.0) % MCV (80.0-100.0) fL MCH (25.0-35.0) pg MCHC (31.0-37.0) g/dL RDW (11.5-15.5) % Plt Count (150-450) k/uL MPV Neutrophils % % Lymphocytes % % Monocytes % % Eosinophils % % Basophils % % Neutrophils # (1.3-7.7) k/uL Lymphocytes # (1.0-4.8) k/uL Monocytes # (0-1.0) k/uL Eosinophils # (0-0.7) k/uL Basophils # (0-0.2) k/uL Hypochromasia PT (10.0-12.5) sec INR (<1.2) APTT (22.0-30.0) sec D-Dimer (<0.60) mg/L FEU Sodium (137-145) mmol/L Potassium (3.5-5.1) mmol/L Chloride (98-107) mmol/L Carbon Dioxide (22-30) mmol/L Anion Gap mmol/L BUN (9-20) mg/dL Creatinine (0.66-1.25) mg/dL Est GFR (CKD-EPI)AfAm (>60 ml/min/1.73 sqM) Est GFR (CKD-EPI)NonAf (>60 ml/min/1.73 sqM) Glucose (74-99) mg/dL Plasma Lactic Acid Mike 1.4 (0.7-2.0) mmol/L Calcium (8.4-10.2) mg/dL Magnesium 2.1 (1.6-2.3) mg/dL Iron (65-175) UG/DL TIBC (228-460) UG/DL % Saturation (15.00-50.00) Transferrin (204.0-354.0) mg/dL Total Bilirubin (0.2-1.3) mg/dL AST (17-59) U/L ALT (4-49) U/L Alkaline Phosphatase (38-126) U/L Troponin I 0.014 (0.000-0.034) ng/mL NT-Pro-B Natriuret Pep 95787 pg/mL Total Protein (6.3-8.2) g/dL Albumin (3.5-5.0) g/dL Vitamin B12 (200.0-944.0) pg/mL Folate (4.40-31.00) ng/mL 03/23/23 03/23/23 Range/Units 03:22 03:22 WBC (3.8-10.6) k/uL RBC (4.30-5.90) m/uL Hgb (13.0-17.5) gm/dL Hct (39.0-53.0) % MCV (80.0-100.0) fL MCH (25.0-35.0) pg MCHC (31.0-37.0) g/dL RDW (11.5-15.5) % Plt Count (150-450) k/uL MPV Neutrophils % % Lymphocytes % % Monocytes % % Eosinophils % % Basophils % % Neutrophils # (1.3-7.7) k/uL Lymphocytes # (1.0-4.8) k/uL Monocytes # (0-1.0) k/uL Eosinophils # (0-0.7) k/uL Basophils # (0-0.2) k/uL Hypochromasia PT (10.0-12.5) sec INR (<1.2) APTT (22.0-30.0) sec D-Dimer (<0.60) mg/L FEU Sodium (137-145) mmol/L Potassium (3.5-5.1) mmol/L Chloride (98-107) mmol/L Carbon Dioxide (22-30) mmol/L Anion Gap mmol/L BUN (9-20) mg/dL Creatinine (0.66-1.25) mg/dL Est GFR (CKD-EPI)AfAm (>60 ml/min/1.73 sqM) Est GFR (CKD-EPI)NonAf (>60 ml/min/1.73 sqM) Glucose (74-99) mg/dL Plasma Lactic Acid Mike (0.7-2.0) mmol/L Calcium (8.4-10.2) mg/dL Magnesium (1.6-2.3) mg/dL Iron 16 L (65-175) UG/DL TIBC 316 (228-460) UG/DL % Saturation 5.06 L (15.00-50.00) Transferrin 226.0 (204.0-354.0) mg/dL Total Bilirubin (0.2-1.3) mg/dL AST (17-59) U/L ALT (4-49) U/L Alkaline Phosphatase (38-126) U/L Troponin I (0.000-0.034) ng/mL NT-Pro-B Natriuret Pep pg/mL Total Protein (6.3-8.2) g/dL Albumin (3.5-5.0) g/dL Vitamin B12 1018.0 H (200.0-944.0) pg/mL Folate 18.50 (4.40-31.00) ng/mL - EKG Data -: EKG Interpreted by Me EKG shows normal: sinus rhythm, axis (Normal), intervals (Normal), QRS complexes, ST-T waves (Anterolateral T inversions concerning for ischemia) Rate: normal (65 bpm) Disposition Clinical Impression: COPD exacerbation, Dyspnea Disposition: ADMITTED IP TO THIS HOSP Condition: Stable Is patient prescribed a controlled substance at d/c from ED?: No
--- NOTE | 2023-03-23 05:58 | XR ---
EXAM: XR Chest, 2 Views CLINICAL HISTORY: difficulty breathing TECHNIQUE: Frontal and lateral views of the chest. COMPARISON: August 31, 2022. FINDINGS: Lungs: No acute infiltration, atelectasis or mass density. Pleural space: Unremarkable. No pneumothorax. No pleural fluid. Heart: Unremarkable. No cardiomegaly. Mediastinum: Unremarkable. Normal mediastinal contour. Bones/joints: Unremarkable. No acute abnormalities. IMPRESSION: No acute changes in the chest.
--- NOTE | 2023-03-23 06:52 | CT ---
CT CHEST FOR PULMONARY EMBOLISM. EXAMINATION TYPE: CT chest angio for PE DATE OF EXAM: 03/23/2023 INDICATION: CT DLP: mGycm, Automated exposure control for dose reduction was used. CONTRAST: Patient injected with mL of . COMPARISON: 08/20/2022 TECHNIQUE: CT of the chest is performed on a spiral scan at 2 mm thick sections. Study is performed with intravenous contrast timed for evaluation for pulmonary embolism. This will limit additional po rtions of the evaluation. 3-D MIP images reconstructed by the technologist are reviewed on the compu ter in the coronal and sagittal planes. FINDINGS: No persistent filling defects suggest acute pulmonary embolism. There is a 1.2 cm subcarinal lymph node. There is a 1.6 cm AP window lymph node. There is a 1.0 cm pr etracheal lymph node. Additional shotty lymphadenopathy is present. The ascending aorta diameter at the level of the main pulmonary artery is 3.6 cm. The main pulmonary artery diameter at the bifurcat ion is 3.5 cm. There are multiple pulmonary nodules present. Larger nodules include a 2 cm nodule posterior medial r ight lung. Image 36 series 401. Some pleural thickening or peripheral densities are in the right midl boo. There is a 1.9 cm density in the posterior right lung series [id number]. There is a 1.9 x 3.5 cm per ipheral density posterior lateral right lung base. Series 401 image 127. There is a 2.1 cm density wi thin the posterior medial right lung base (series 401 image 143. Additional smaller nodules and opaci ties are present. Nodules and opacities are increasing or new from comparison. Peribronchial thickening is present. Emphysematous changes are present. Minimal right pleural fluid i s not excluded.2 Limited CT section through the upper abdomen. There appears to be diffuse thickening through the stom ach wall. Additional workup is recommended. Hiatal hernia is present. IMPRESSION: 1. No suspicious acute pulmonary embolism. 2. Multiple developing lung nodules and opacities suspicious for metastatic disease. 3. Emphysematous changes. 4. Enlarged mediastinal lymphadenopathy. 5. Thickened stomach wall. Additional workup is recommended. 6. Moderate-sized hiatal hernia
[2023-03-23] MEDS ORDERED: ALBUTEROL NEBULIZED 2.5 MG/3 ML INHALATION STA (07:17)
[2023-03-23] MEDS ORDERED: HYDROcodone/APAP 10-325MG 1 EACH TAB PO ONE (07:18)
[2023-03-23] MEDS ORDERED: NALOXONE 0.4 MG/ML 1 ML VIAL IVP PRN (07:42)
[2023-03-23] MEDS ORDERED: IPRATROPIUM-ALBUTEROL 3 ML NEB INHALATION PRN (07:48)
[2023-03-23] MEDS ORDERED: ACETAMINOPHEN TAB 325 MG TAB PO PRN (07:48)
[2023-03-23] MEDS ORDERED: MELATONIN 3 MG TABLET PO PRN (07:48)
[2023-03-23] MEDS: DOXYCYCLINE 100 MG CAP PO SCH ×2 (09:00→22:00)
[2023-03-23] MEDS: predniSONE 20 MG TAB PO SCH (09:00)
[2023-03-23] MEDS: HEPARIN SODIUM,PORCINE 5,000 UNIT/ML 1 ML VIAL SQ SCH ×3 (09:01→20:30)
[2023-03-23] MEDS: IPRATROPIUM-ALBUTEROL 3 ML NEB INHALATION SCH ×5 (12:12→22:12)
--- NOTE | 2023-03-23 12:35 | CA ---
Transthoracic Echo Report Name: Baldev Joyce Age: 72 Gender: M : 1950 Exam Date: 03/23/2023 09:20 Exam Location: [facility] Ht (in): 74 Wt (lb): 120 Ordering Physician: Nik Deluna MD Attending/Referring Phys: Cornice Maker Rg Carrion Procedure CPT: Indications: Dyspnea/elevated BNP Cardiac Hx: Technical Quality: Technically difficult study Contrast 1: Total Dose (mL): Contrast 2: Total Dose (mL): MEASUREMENTS (Male / Female) Normal Values 2D ECHO LV Diastolic Diameter PLAX 5.4 cm 4.2 - 5.9 / 3.9 - 5.3 cm LV Systolic Diameter PLAX 3.6 cm IVS Diastolic Thickness 1.0 cm 0.6 - 1.0 / 0.6 - 0.9 cm LVPW Diastolic Thickness 1.0 cm 0.6 - 1.0 / 0.6 - 0.9 cm LV Relative Wall Thickness 0.4 RV Internal Dim ED PLAX 3.5 cm LVOT Diameter 2.2 cm Aortic Root Diameter 3.4 cm LA Systolic Diameter LX 2.5 cm 3.0 - 4.0 / 2.7 - 3.8 cm LV Diastolic Volume MOD 4C 62.7 cm??? LV Systolic Volume MOD 4C 22.2 cm??? LV Ejection Fraction MOD 4C 64.6 % LV Cardiac Index MOD 4C 1784.5 cm???/min???m??? LV Diastolic Length 4C 8.2 cm LV Systolic Length 4C 7.4 cm DOPPLER AV Peak Velocity 141.7 cm/s AV Peak Gradient 8.0 mmHg LVOT Peak Velocity 90.9 cm/s LVOT Peak Gradient 3.3 mmHg LVOT Velocity Time Integral 16.5 cm LVOT Stroke Volume 64.6 cm??? LVOT Stroke Volume Index 37.0 ml/m??? LVOT Cardiac Index 2843.6 cm???/min???m??? AV Area Cont Eq pk 2.5 cm??? MV Peak Velocity 103.7 cm/s MV Peak Gradient 4.3 mmHg MV Mean Velocity 44.5 cm/s MV Mean Gradient 1.2 mmHg MV Velocity Time Integral 26.0 cm Mitral E Point Velocity 83.7 cm/s Mitral A Point Velocity 93.6 cm/s Mitral E to A Ratio 0.9 MV Deceleration Time 205.2 ms MV E' Velocity 17.3 cm/s Mitral E to MV E' Ratio 4.8 TR Peak Velocity 389.3 cm/s TR Peak Gradient 60.6 mmHg Right Ventricular Systolic Press 65.6 mmHg PV Peak Velocity 110.3 cm/s PV Peak Gradient 4.9 mmHg FINDINGS Left Ventricle Normal LV size and wall thickness. Left ventricular ejection fraction is estimated at 50-55 %. Right Ventricle Mildly increased RV size. RVSP= 66mmHg. Right Atrium Normal right atrial size. Left Atrium Normal left atrial size. Mitral Valve Structurally normal mitral valve. Trace MR. Aortic Valve Aortic valve not well visualized. No aortic stenosis. No aortic regurgitation. Tricuspid Valve Structurally normal tricuspid valve. Moderate TR. Pulmonic Valve Pulmonic valve not well visualized. No pulmonic regurgitation. Pericardium Normal pericardium. Aorta Normal size aortic root CONCLUSIONS Technically limited and off axis views. Normal LV size and systolic function. LVEF estimated at 55% No obvious regional wall motion abnormality Signs of pulmonary hypertension with septal shudder. RVSP estimated at 66 mmHg Mild RV dilatation with normal systolic function Moderate TR, no other valvular dysfunction No pericardial effusion Previewed by: Dr Jay Joe (Electronically Signed) Final Date: 23 March 2023 12:34
--- NOTE | 2023-03-23 13:15 | P.HPIM ---
History of Present Illness H&P Date: 03/23/23 This is a 72-year-old male patient who presented to the ER with concerns of shortness of breath. Patient reports he's had increased shortness of breath over the past 3 days. Patient does have past medical history of COPD is maintained on 2 L nasal cannula at home but reports that he was descending down to 70s. Additional medical history includes hyperlipidemia, hypertension, myocardial infarction, osteoarthritis, chronic back pain and ex-smoker. Influenza RSV COVID-19 negative. BNP elevated at 11,500. D-dimer elevated at 0.67. Chest x-ray completed showing no acute changes in the chest. Chest CTA completed showing no suspicious acute pulmonary embolism, multiple developing lung nodules and opacities suspicious for metastatic disease. Emphasis Jeremiah changes and large mediastinal lymphadenopathy. Thickened stomach wall moderate size hiatal hernia. Patient was started on by mouth doxycycline and prednisone along with DuoNeb breathing treatments. Will consult pulmonary services. Will also consult cardiology services due to elevated BNP. Patient reports improvement with shortness of breath. 2-D echo has been ordered pro-calcitonin level has been ordered. This time patient denies chest pain. Patient reports improvement shortness breath. Patient denies nausea vomiting or diarrhea. 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 knee wound + FOR MRSA. History of high left above-knee amputation done approximately 2009. Last Myocardial Infarction Date:: 2003 History of Any Multi-Drug Resistant Organisms: Acinetobacter (MDRO), MRSA Date of last positivie culture/infection: 04/02/16 MDRO Source:: LT KNEE WOUND Past Surgical History: Heart Catheterization With Stent, Orthopedic Surgery Additional Past Surgical History / Comment(s): STENTS TO LEFT GROIN, LEFT ABOVE THE KNEE AMPUTATION, unsuccessful revascularization left leg, shoulder surgery, surgical debridement of necrotic tissue left scrotal area, LT AKA 03/03/16. left testicle removed. heart stent x1 broken left hip Past Anesthesia/Blood Transfusion Reactions: No Reported Reaction Date of Last Stent Placement:: 2006 Past Psychological History: Depression Smoking Status: Former smoker Past Alcohol Use History: None Reported Past Drug Use History: Marijuana - Past Family History Sister(s) Family Medical History: Cancer Additional Family Medical History / Comment(s): double mastectomy, still surviving Father Family Medical History: No Reported History Mother Family Medical History: No Reported History Additional Family Medical History / Comment(s): hypoglycemia Medications and Allergies Home Medications Medication Instructions Recorded Confirmed Type Aspirin 81 mg PO DAILY 01/14/14 03/23/23 History DULoxetine HCL [Cymbalta] 60 mg PO DAILY 01/14/14 03/23/23 History lisinopriL [Prinivil] 20 mg PO DAILY 01/14/14 03/23/23 History Pantoprazole Sodium [Protonix] 40 mg PO DAILY 06/13/18 03/23/23 History amLODIPine [Norvasc] 5 mg PO DAILY 06/13/18 03/23/23 History Atorvastatin [Lipitor] 80 mg PO DAILY #30 tab 07/20/20 03/23/23 Rx Metoprolol Succinate (ER) [Toprol 25 mg PO DAILY #30 tab.er.24h 07/20/20 03/23/23 Rx XL] Albuterol Sulfate [Proair Hfa] 2 puff INHALATION RT-QID PRN 08/29/21 03/23/23 History Tamsulosin [Flomax] 0.4 mg PO DAILY 08/29/21 03/23/23 History HYDROcodone/APAP 10-325MG [[place] 1 tab PO Q6HR PRN 07/12/22 03/23/23 History 10-325] Primidone [Mysoline] 25 mg PO HS 07/12/22 03/23/23 History Loratadine [Claritin] 10 mg PO DAILY 08/13/22 03/23/23 History Nitroglycerin Sl Tabs [Nitrostat] 0.4 mg SL Q5M PRN 08/13/22 03/23/23 History Albuterol Nebulized [Ventolin 2.5 mg INHALATION RT-Q6H PRN 03/23/23 03/23/23 History Nebulized] Clotrimazole/Betameth Cream 1 applic TOPICAL DAILY PRN 03/23/23 03/23/23 History [Lotrisone] Escitalopram [Lexapro] 20 mg PO DAILY 03/23/23 03/23/23 History Fluticasone/Umeclidin/Vilanter 1 puff INHALATION RT-DAILY 03/23/23 03/23/23 History [Trelegy Ellipta 200-62.5-25] Gabapentin 600 mg PO TID 03/23/23 03/23/23 History Megestrol Acetate 400 mg PO DAILY 03/23/23 03/23/23 History traZODone HCL 100 mg PO HS 03/23/23 03/23/23 History Allergies Allergy/AdvReac Type Severity Reaction Status Date / Time azithromycin [From Zithromax] Allergy Rash/Hives Verified 03/23/23 07:25 Physical Exam Vitals: Vital Signs Temp Pulse Resp BP Pulse Ox 03/23/23 08:02 71 03/23/23 07:51 77 03/23/23 07:46 69 18 155/81 94 L 03/23/23 06:28 69 19 139/87 94 L 03/23/23 05:12 67 17 135/59 94 L 03/23/23 04:45 71 17 118/82 93 L 03/23/23 04:18 98 03/23/23 04:04 56 L 03/23/23 03:53 57 L 03/23/23 03:46 57 L 16 136/80 98 03/23/23 03:16 98.6 F 65 20 120/60 92 L Intake and Output 03/22/23 03/23/23 03/23/23 22:59 06:59 14:59 Other: Weight 54.431 kg Head normocephalic Neck supple Lungs clear to auscultation bilaterally no wheezing or crackles Heart regular rate and rhythm S1-S2, no rub or gallop Abdomen is soft nontender nondistended positive bowel sounds no hepatosplenomegaly Extremities no edema Neuro alert and orientated to 3 Results CBC & Chem 7: 03/23/23 03:22 03/23/23 03:22 Labs: Abnormal Lab Results - Last 24 Hours (Table) 03/23/23 03/23/23 03/23/23 Range/Units 03:22 03:22 03:22 RBC 3.39 L (4.30-5.90) m/uL Hgb 8.8 L (13.0-17.5) gm/dL Hct 29.4 L (39.0-53.0) % MCHC 29.9 L (31.0-37.0) g/dL Lymphocytes # 0.9 L (1.0-4.8) k/uL D-Dimer 0.67 H (<0.60) mg/L FEU BUN 37 H (9-20) mg/dL Creatinine 0.62 L (0.66-1.25) mg/dL Glucose 154 H (74-99) mg/dL Total Protein 5.6 L (6.3-8.2) g/dL Albumin 2.9 L (3.5-5.0) g/dL Assessment and Plan Assessment: Acute exacerbation of COPD Chronic hypoxic respiratory failure wears 2-3 L at home Elevated BNP level. 2-D echo ordered Abnormal CTA suspicious pulmonary nodules History of diabetes mellitus type 2 History of left [id number] amputation 2009 History of nicotine dependence Marijuana use History of coronary artery disease with stenting History of hyperlipidemia History of essential hypertension DVT prophylaxis Heparin. GI prophylaxis Pepcid pulmonary and cardiology services consulted Patient started on by mouth prednisone and antibiotic 2-D echo ordered Repeat labs ordered Time with Patient: Greater than 30
--- NOTE | 2023-03-23 13:46 | P.GSCN ---
History of Present Illness Consult date: 03/23/23 History of present illness: CHIEF COMPLAINT: Shortness of breath HISTORY OF PRESENT ILLNESS: This is a 72-year-old male who presented to the hospital with complaints of worsening shortness of breath and cough 3 days. He noted that his oxygen saturation would drop quicker after taking off his oxygen at home. He usually wears 2-1/2 L at home. He reports that his phlegm has been whitish in color. Patient being followed by pulmonary service and cardiology service. He has been admitted to the hospital in acute COPD exacerbation. Patient reports no new abdominal pain. He has been dealing with loose bowel movements and alternating with constipation for years. He denies any nausea or vomiting. He denies any blood in his stools or any black stools. He reports his last EGD was over 10 years ago and was unremarkable. He reports his last colonoscopy was about 3 years ago and reports that normal findings. Patient reports quitting smoking in August 2022. He is currently not on any blood thinners. He is found to have a hemoglobin of 8.8 on admission. CTA of the chest had shown evidence of a thickened stomach wall and a moderate hiatal hernia. And multiple lung nodules suspicious for metastatic disease. Surgical service consulted due to anemia and possible EGD and colonoscopy. PAST MEDICAL HISTORY: See below PAST SURGICAL HISTORY: See below MEDICATIONS: See below ALLERGIES: See below SOCIAL HISTORY: No illicit drug use. REVIEW OF SYSTEMS: CONSTITUTIONAL: Denies fever or chills. HEENT: Denies blurred vision, vision changes, or eye pain. Denies hemoptysis CARDIOVASCULAR: Denies chest pain or pressure. RESPIRATORY: No shortness of breath. GASTROINTESTINAL: See HPI for pertinent findings HEMATOLOGIC: Denies bleeding disorders. GENITOURINARY: Denies any blood in urine or increased urinary frequency. SKIN: Denies pruitis. Denies rash. PHYSICAL EXAM: VITAL SIGNS: Reviewed GENERAL: no acute distress. ABDOMEN: Soft. Nondistended. Nontender NEUROLOGIC: Alert and oriented. Cranial nerves II through XII grossly intact. LABORATORY DATA: WBC 5.8 Hgb 8.8 platelets 382 D-dimer 0.67 Sodium 138 potassium 4.9 creatinine 0.62 Lactic acid 1.4 Magnesium 2.1 BNP elevated troponin negative Influenza, RSV and COVID-19 not detected IMAGING: Chest CTA no suspicious acute pulmonary embolism. Multiple developing lung nodules and opacities suspicious for metastatic disease. Emphysematous changes. Enlargement escitalopram adenopathy. Thickened stomach wall. Moderate sized hiatal hernia. ASSESSMENT: 1. Anemia 2. Thickened stomach wall and moderate size hiatal hernia noted on CAT scan 3. Multiple developing lung nodules and opacities suspicious for metastatic disease noted on CT 4. COPD exacerbation PLAN: -Further recommendations forthcoming per surgeon regarding endoscopy -Continue Protonix -Continue to monitor hemoglobin -Continue monitor for any signs or symptoms of bleeding -Follow up on iron studies and stool for occult blood Thank you for this consultation Physician General Laborer note has been reviewed by physician. Signing provider agrees with the documented findings, assessment, and plan of care. I have personally seen and examined the patient, reviewed the SECOND WATCH SERGEANT /PAs history, exam and MDM and agree with the assessment and plan as written. Based on total visit time, I have performed more than 50% of the visit. As above: Patient with admission for anemia. CAT scan shows significant ga stric wall thickening. We'll proceed with upper and lower endoscopy on . 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 knee wound + FOR MRSA. History of high left above-knee amputation done approximately 2009. Last Myocardial Infarction Date:: 2003 History of Any Multi-Drug Resistant Organisms: Acinetobacter (MDRO), MRSA Year Discovered:: 04/02/16 MDRO Source:: LT KNEE WOUND Past Surgical History: Heart Catheterization With Stent, Orthopedic Surgery Additional Past Surgical History / Comment(s): STENTS TO LEFT GROIN, LEFT ABOVE THE KNEE AMPUTATION, unsuccessful revascularization left leg, shoulder surgery, surgical debridement of necrotic tissue left scrotal area, LT AKA 03/03/16. left testicle removed. heart stent x1 broken left hip Past Anesthesia/Blood Transfusion Reactions: No Reported Reaction Date of Last Stent Placement:: 2006 Past Psychological History: Depression Smoking Status: Former smoker Past Alcohol Use History: None Reported Past Drug Use History: Marijuana - Past Family History Sister(s) Family Medical History: Cancer Additional Family Medical History / Comment(s): double mastectomy, still surviving Father Family Medical History: No Reported History Mother Family Medical History: No Reported History Additional Family Medical History / Comment(s): hypoglycemia Medications and Allergies Home Medications Medication Instructions Recorded Confirmed Type Aspirin 81 mg PO DAILY 01/14/14 03/23/23 History DULoxetine HCL [Cymbalta] 60 mg PO DAILY 01/14/14 03/23/23 History lisinopriL [Prinivil] 20 mg PO DAILY 01/14/14 03/23/23 History Pantoprazole Sodium [Protonix] 40 mg PO DAILY 06/13/18 03/23/23 History amLODIPine [Norvasc] 5 mg PO DAILY 06/13/18 03/23/23 History Atorvastatin [Lipitor] 80 mg PO DAILY #30 tab 07/20/20 03/23/23 Rx Metoprolol Succinate (ER) [Toprol 25 mg PO DAILY #30 tab.er.24h 07/20/20 03/23/23 Rx XL] Albuterol Sulfate [Proair Hfa] 2 puff INHALATION RT-QID PRN 08/29/21 03/23/23 History Tamsulosin [Flomax] 0.4 mg PO DAILY 08/29/21 03/23/23 History HYDROcodone/APAP 10-325MG [[place] 1 tab PO Q6HR PRN 07/12/22 03/23/23 History 10-325] Primidone [Mysoline] 25 mg PO HS 07/12/22 03/23/23 History Loratadine [Claritin] 10 mg PO DAILY 08/13/22 03/23/23 History Nitroglycerin Sl Tabs [Nitrostat] 0.4 mg SL Q5M PRN 08/13/22 03/23/23 History Albuterol Nebulized [Ventolin 2.5 mg INHALATION RT-Q6H PRN 03/23/23 03/23/23 History Nebulized] Clotrimazole/Betameth Cream 1 applic TOPICAL DAILY PRN 03/23/23 03/23/23 History [Lotrisone] Escitalopram [Lexapro] 20 mg PO DAILY 03/23/23 03/23/23 History Fluticasone/Umeclidin/Vilanter 1 puff INHALATION RT-DAILY 03/23/23 03/23/23 History [Trelegy Ellipta 200-62.5-25] Gabapentin 600 mg PO TID 03/23/23 03/23/23 History Megestrol Acetate 400 mg PO DAILY 03/23/23 03/23/23 History traZODone HCL 100 mg PO HS 03/23/23 03/23/23 History Allergies Allergy/AdvReac Type Severity Reaction Status Date / Time azithromycin [From Zithromax] Allergy Rash/Hives Verified 03/23/23 07:25 Surgical - Exam Vital Signs Temp Pulse Resp BP Pulse Ox 98.6 F 65 20 120/60 92 L 03/23/23 03:16 03/23/23 03:16 03/23/23 03:16 03/23/23 03:16 03/23/23 03:16 Results - Labs 03/23/23 03:22 03/23/23 03:22 Abnormal Lab Results - Last 24 Hours (Table) 03/23/23 03/23/23 03/23/23 Range/Units 03:22 03:22 03:22 RBC 3.39 L (4.30-5.90) m/uL Hgb 8.8 L (13.0-17.5) gm/dL Hct 29.4 L (39.0-53.0) % MCHC 29.9 L (31.0-37.0) g/dL Lymphocytes # 0.9 L (1.0-4.8) k/uL D-Dimer 0.67 H (<0.60) mg/L FEU BUN 37 H (9-20) mg/dL Creatinine 0.62 L (0.66-1.25) mg/dL Glucose 154 H (74-99) mg/dL Total Protein 5.6 L (6.3-8.2) g/dL Albumin 2.9 L (3.5-5.0) g/dL Diabetes panel 03/23/23 Range/Units 03:22 Sodium 138 (137-145) mmol/L Potassium 4.9 (3.5-5.1) mmol/L Chloride 107 (98-107) mmol/L Carbon Dioxide 26 (22-30) mmol/L BUN 37 H (9-20) mg/dL Creatinine 0.62 L (0.66-1.25) mg/dL Glucose 154 H (74-99) mg/dL Calcium 8.4 (8.4-10.2) mg/dL AST 27 (17-59) U/L ALT 20 (4-49) U/L Alkaline Phosphatase 65 (38-126) U/L Total Protein 5.6 L (6.3-8.2) g/dL Albumin 2.9 L (3.5-5.0) g/dL Calcium panel 03/23/23 Range/Units 03:22 Calcium 8.4 (8.4-10.2) mg/dL Albumin 2.9 L (3.5-5.0) g/dL Pituitary panel 03/23/23 Range/Units 03:22 Sodium 138 (137-145) mmol/L Potassium 4.9 (3.5-5.1) mmol/L Chloride 107 (98-107) mmol/L Carbon Dioxide 26 (22-30) mmol/L BUN 37 H (9-20) mg/dL Creatinine 0.62 L (0.66-1.25) mg/dL Glucose 154 H (74-99) mg/dL Calcium 8.4 (8.4-10.2) mg/dL Adrenal panel 03/23/23 Range/Units 03:22 Sodium 138 (137-145) mmol/L Potassium 4.9 (3.5-5.1) mmol/L Chloride 107 (98-107) mmol/L Carbon Dioxide 26 (22-30) mmol/L BUN 37 H (9-20) mg/dL Creatinine 0.62 L (0.66-1.25) mg/dL Glucose 154 H (74-99) mg/dL Calcium 8.4 (8.4-10.2) mg/dL Total Bilirubin 0.4 (0.2-1.3) mg/dL AST 27 (17-59) U/L ALT 20 (4-49) U/L Alkaline Phosphatase 65 (38-126) U/L Total Protein 5.6 L (6.3-8.2) g/dL Albumin 2.9 L (3.5-5.0) g/dL
[2023-03-23] MEDS: GABAPENTIN 300 MG CAP PO SCH ×2 (15:27→22:02)
[2023-03-23] MEDS: HYDROcodone/APAP 10-325MG 1 EACH TAB PO PRN ×2 (15:27→22:00)
--- NOTE | 2023-03-23 15:29 | P.CNPUL ---
History of Present Illness Consult date: 03/23/23 Requesting physician: Fidencio Barrientos Reason for consult: dyspnea, COPD, hypoxemia Chief complaint: Cough, congestion History of present illness: This is a 72-year-old male patient with a 50+ year smoking history stating he quit in August 2022, ongoing marijuana use, hypertension, hyperlipidemia, coronary disease with previous stent placement, peripheral vascular disease with left [id number] amputation, oxygen dependent chronic obstructive pulmonary disease. He states he had a three-day history of increasing shortness of breath, cough and congestion and while coughing his oxygen saturations dropped into the 70s. No fever chills. No hemoptysis. Chest x-ray revealed no acute pulmonary process. CT angiogram ruled out pulmonary embolism. There is however multiple developing lung nodules and opacities suspicious for metastatic disease. Enlarged mediastinal lymphadenopathy. Emphysematous changes. Thickened stomach wall. Moderate hiatal hernia. Echocardiogram revealed preserved left radicular systolic function with ejection fraction 50-55%. White count 5.8. Hemoglobin 8.8. Platelets 3 L. D-dimer 0.67. Sodium 138. Potassium 4.9. Bicarb 26. BUN 37. Creatinine 0.62. Troponin negative times one. ProBNP 11,500. Influenza screen negative. RSV screen negative. COVID-19 screen negative. Patient is seen today in consultation in the emergency department. He's currently sitting up on the stretcher. Awake and alert in no acute distress. Breathing a bit easier today compared to yesterday. Maintaining O2 saturations in the 90s on 2 L/m per nasal cannula. Afebrile. Hemodynamically stable. Review of Systems REVIEW OF SYSTEMS: CONSTITUTIONAL: Denies any recent significant weight loss or weight gain. EYES: Denies change in vision. EARS, NOSE, MOUTH, THROAT: Denies headaches, denies sore throat. CARDIOVASCULAR: Denies chest pain, palpitations or syncopal episodes. RESPIRATORY: Positive for shortness of breath, cough, congestion no hemoptysis. GASTROINTESTINAL: Denies change in appetite, denies abdominal pain GENITOURINARY: Denies hematuria, denies infections. MUSKULOSKELETAL: Denies pain, denies swelling. INTEGUMENTARY: Denies rash, denies eczema. NEUROLOGICAL: Denies recent memory loss, no recent seizure activity. PSYCHIATRIC: Denies anxiety, denies depression. HEMATOLOGIC/LYMPHATIC: Denies anemia, denies enlarged lymph nodes. Past Medical History Past Medical History: COPD, Hyperlipidemia, Hypertension, Myocardial Infarction ([place]), Osteoarthritis ([place]), Vascular Disorder Additional Past Medical History / Comment(s): hx migraines, hx shingles, [place] gangrene 03/2015, chronic back pain, lt. knee wound + FOR MRSA. History of high left above-knee amputation done approximately 2009. Last Myocardial Infarction Date:: 2003 History of Any Multi-Drug Resistant Organisms: Acinetobacter (MDRO), MRSA Date of last positivie culture/infection: 04/02/16 MDRO Source:: LT KNEE WOUND Past Surgical History: Heart Catheterization With Stent, Orthopedic Surgery Additional Past Surgical History / Comment(s): STENTS TO LEFT GROIN, LEFT ABOVE THE KNEE AMPUTATION, unsuccessful revascularization left leg, shoulder surgery, surgical debridement of necrotic tissue left scrotal area, LT AKA 03/03/16. left testicle removed. heart stent x1 broken left hip Past Anesthesia/Blood Transfusion Reactions: No Reported Reaction Date of Last Stent Placement:: 2006 Past Psychological History: Depression Smoking Status: Former smoker Past Alcohol Use History: None Reported Past Drug Use History: Marijuana - Past Family History Sister(s) Family Medical History: Cancer Additional Family Medical History / Comment(s): double mastectomy, still surviving Father Family Medical History: No Reported History Mother Family Medical History: No Reported History Additional Family Medical History / Comment(s): hypoglycemia Medications and Allergies Home Medications Medication Instructions Recorded Confirmed Type Aspirin 81 mg PO DAILY 01/14/14 03/23/23 History DULoxetine HCL [Cymbalta] 60 mg PO DAILY 01/14/14 03/23/23 History lisinopriL [Prinivil] 20 mg PO DAILY 01/14/14 03/23/23 History Pantoprazole Sodium [Protonix] 40 mg PO DAILY 06/13/18 03/23/23 History amLODIPine [Norvasc] 5 mg PO DAILY 06/13/18 03/23/23 History Atorvastatin [Lipitor] 80 mg PO DAILY #30 tab 07/20/20 03/23/23 Rx Metoprolol Succinate (ER) [Toprol 25 mg PO DAILY #30 tab.er.24h 07/20/20 03/23/23 Rx XL] Albuterol Sulfate [Proair Hfa] 2 puff INHALATION RT-QID PRN 05/20/22 12/12/23 History Tamsulosin [Flomax] 0.4 mg PO DAILY 08/29/21 03/23/23 History HYDROcodone/APAP 10-325MG [[place] 1 tab PO Q6HR PRN 07/12/22 03/23/23 History 10-325] Primidone [Mysoline] 25 mg PO HS 07/12/22 03/23/23 History Loratadine [Claritin] 10 mg PO DAILY 08/13/22 03/23/23 History Nitroglycerin Sl Tabs [Nitrostat] 0.4 mg SL Q5M PRN 08/13/22 03/23/23 History Albuterol Nebulized [Ventolin 2.5 mg INHALATION RT-Q6H PRN 03/23/23 03/23/23 History Nebulized] Clotrimazole/Betameth Cream 1 applic TOPICAL DAILY PRN 03/23/23 03/23/23 History [Lotrisone] Escitalopram [Lexapro] 20 mg PO DAILY 03/23/23 03/23/23 History Fluticasone/Umeclidin/Vilanter 1 puff INHALATION RT-DAILY 03/23/23 03/23/23 History [Trelegy Ellipta 200-62.5-25] Gabapentin 600 mg PO TID 03/23/23 03/23/23 History Megestrol Acetate 400 mg PO DAILY 03/23/23 03/23/23 History traZODone HCL 100 mg PO HS 03/23/23 03/23/23 History Allergies Allergy/AdvReac Type Severity Reaction Status Date / Time azithromycin [From Zithromax] Allergy Rash/Hives Verified 03/23/23 07:25 Physical Exam Vitals: Vital Signs Temp Pulse Resp BP Pulse Ox 03/23/23 13:22 78 18 164/80 94 L 03/23/23 12:40 61 03/23/23 12:30 73 03/23/23 10:49 87 18 155/93 94 L 03/23/23 08:02 71 03/23/23 07:51 77 03/23/23 07:46 69 18 155/81 94 L 03/23/23 06:28 69 19 139/87 94 L 03/23/23 05:12 67 17 135/59 94 L 03/23/23 04:45 71 17 118/82 93 L 03/23/23 04:18 98 03/23/23 04:04 56 L 03/23/23 03:53 57 L 03/23/23 03:46 57 L 16 136/80 98 03/23/23 03:16 98.6 F 65 20 120/60 92 L Intake and Output 03/23/23 03/23/23 03/23/23 06:59 14:59 22:59 Other: Weight 54.431 kg GENERAL EXAM: Alert, disheveled, cachectic 72-year-old male, on 2 L nasal cannula, fairly comfortable in no apparent distress. HEAD: Normocephalic. EYES: Normal reaction of pupils, equal size. NOSE: Clear with pink turbinates. THROAT: No erythema or exudates. NECK: No masses, no JVD. CHEST: No chest wall deformity. LUNGS: Equal air entry with no crackles, wheeze, rhonchi or dullness. Diminished. CVS: S1 and S2 normal with no audible murmur, regular rhythm. ABDOMEN: No hepatosplenomegaly, normal bowel sounds, no guarding or rigidity. SPINE: No scoliosis or deformity SKIN: No rashes CENTRAL NERVOUS SYSTEM: No focal deficits, tone is normal in all 4 extremities. EXTREMITIES: There is no peripheral edema. No clubbing, no cyanosis. Peripheral pulses are intact. Results - Laboratory Findings CBC and BMP: 03/23/23 03:22 03/23/23 03:22 PT/INR, D-dimer PT 11.0 sec (10.0-12.5) 03/23/23 03:22 INR 1.0 (<1.2) 03/23/23 03:22 D-Dimer 0.67 mg/L FEU (<0.60) H 03/23/23 03:22 Abnormal lab findings: Abnormal Labs 03/23/23 03/23/23 03/23/23 03:22 03:22 03:22 RBC 3.39 L Hgb 8.8 L Hct 29.4 L MCHC 29.9 L Lymphocytes # 0.9 L D-Dimer 0.67 H BUN 37 H Creatinine 0.62 L Glucose 154 H Total Protein 5.6 L Albumin 2.9 L - Diagnostic Findings Chest x-ray: image reviewed CT scan - chest: image reviewed Assessment and Plan Assessment: Acute on chronic hypoxemic respiratory failure secondary to acute exacerbation of chronic obstructive pulmonary disease Severe oxygen dependent chronic obstructive pulmonary disease 50+ year smoking history, stating quit in August 2022 Multiple developing lung nodules and opacities suspicious for metastatic disease with enlarged mediastinal lymphadenopathy Thickened stomach wall planning for EGD this admission Moderate size hiatal hernia Marijuana use Coronary artery disease with previous stent placement Hypertension Hyperlipidemia History of depression Peripheral vascular disease status post left [id number] amputation Plan: The patient was seen and evaluated CT angiogram, chest x-ray, labs and medications reviewed Continue DuoNeb inhalations, Symbicort, prednisone taper. Empiric antibiotics in the form of Vibramycin Heparin for DVT prophylaxis Momo is for EGD regarding thickened stomach wall With need outpatient workup regarding lung nodule/PET scan We will continue to follow and make further recommendations based on his clinical status I have personally seen and examined the patient, performed the documentation and the assessment and plan as written. Number of minutes spent on the visit: 20.
[2023-03-23 17:19] LABS: % Iron Saturation 5.06 (15.00-50.00)
[2023-03-23] MEDS: PRIMIDONE 50 MG TAB PO SCH (20:27)
[2023-03-23] MEDS: SYMBICORT 160-4.5 MCG INHALER INHALATION SCH ×2 (22:08→22:12)
[2023-03-23] MEDS: NYSTATIN 100,000 UNIT/GM OINT 30 GM TUBE TOPICAL SCH (23:44)
[2023-03-24] MEDS: traZODone HCL 100 MG TAB PO SCH ×2 (01:54→20:27)
[2023-03-24] MEDS: HYDROcodone/APAP 10-325MG 1 EACH TAB PO PRN ×2 (05:00→12:35)
[2023-03-24] MEDS: PANTOPRAZOLE 40 MG TABLET PO SCH (06:19)
[2023-03-24] MEDS: SYMBICORT 160-4.5 MCG INHALER INHALATION SCH ×2 (07:55→21:48)
[2023-03-24] MEDS: IPRATROPIUM-ALBUTEROL 3 ML NEB INHALATION SCH ×4 (07:55→21:48)
[2023-03-24] MEDS ORDERED: SYMBICORT 80-4.5 MCG INHALER INHALATION SCH (08:00)
--- NOTE | 2023-03-24 08:03 | P.CRDCN ---
History of Present Illness History of present illness: HISTORY OF PRESENT ILLNESS: This is a 72-year-old male with a past medical history significant for hypertension, hyperlipidemia, diabetes, coronary artery disease with previous PCI of the RCA and intermediate to severe disease involving the LAD, peripheral arterial disease with left AKA, COPD, nicotine dependence. Patient follows in the office with Dr. Palafox. We have been asked to see the patient in consultation for congestive heart failure. Patient examined at the bedside. Patient is sitting on side of the bed. Patient states he came to the hospital due to a chief complaint of shortness of breath. Patient he was having another bout of pneumonia. He does feel short of breath at rest this morning. He has a congested cough during evaluation. He denies any chest pain or pressure. * EKG reveals sinus mechanism with diffuse T-wave inversions, new from EKG in August 2022 * Chest xray negative for acute process * Chest CT: Negative for pulmonary embolism, multiple developing lung nodules and opacities suspicious for metastatic disease, moderately sized hiatal hernia, thickened stomach wall, enlarged mediastinal lymphadenopathy * Laboratory data: WBC 5.8. Hemoglobin 8.8. Platelet count 382. D-dimer 0.67. Sodium 130. Potassium 4.9. BUN 37. Creatinine 0.62. Troponin negative 1. ProBNP 11,500 * Current home cardiac medications include lisinopril 20 mg daily, Lipitor 80 mg daily, amlodipine 5 mg daily, and metoprolol succinate 25 mg daily * Most recent echocardiogram obtained in August 2021 revealed ejection fraction 55- 60%, severe RV enlargement, severe pulmonary hypertension and moderate tricuspid regurgitation * Cardiac catheterization history: August 2020 revealing critical disease of the RCA. Intermediate in-stent restenosis involving the mid LAD. Patient underwent stenting of the mid RCA REVIEW OF SYSTEMS: At the time of my exam: CONSTITUTIONAL: Denies fever or chills. HEENT: Denies blurred vision, vision changes, or eye pain. Denies hemoptysis CARDIOVASCULAR: Denies chest pain. Denies orthopnea. Denies PND. Denies palpitations RESPIRATORY: Denies shortness of breath. GASTROINTESTINAL: Denies abdominal pain. Denies nausea or vomiting. HEMATOLOGIC: Denies bleeding disorders. GENITOURINARY: Denies any blood in urine. SKIN: Denies pruitis. Denies rash. PHYSICAL EXAM: VITAL SIGNS: Reviewed. GENERAL: Well-developed in no acute distress. HEENT: Head is normocephalic. Pupils are equal, round. Sclerae anicteric. Mucous membranes of the mouth are moist. Neck supple. No JVD or thyromegaly LUNGS: Respirations even and unlabored. Lungs expiratory wheezing noted HEART: Regular rate and rhythm. S1 and S2 heard. ABDOMEN: Soft. Nondistended. Nontender. EXTREMITIES: Normal range of motion. No clubbing or cyanosis. Left AKA. NEUROLOGIC: Awake and alert. Oriented x 3. ASSESSMENT: Shortness of breath Normal EKG with diffuse T-wave inversions Chronic hypoxic respiratory failure on home oxygen Coronary artery disease with previous PCI of the RCA and intermediate to severe disease involving the LAD Peripheral arterial disease with left AKA Multiple developing lung nodules and opacities suspicious for metastatic disease Thickened stomach wall and moderate hiatal hernia Hypertension Hyperlipidemia Diabetes COPD Nicotine dependence, former smoker History of anemia PLAN: Resume home cardiac medications Repeat EKG Obtain additional troponin Nothing by mouth Patient to undergo cardiac catheterization this afternoon with Dr. Palafox Patient is currently not cleared to undergo endoscopy at this time from a cardiac standpoint Further recommendations pending patient's course Nurse practitioner note has been reviewed by physician. Signing provider agrees with the documented findings, assessment, and plan of care. 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 knee wound + FOR MRSA. History of high left above-knee amputation done approximately 2009. Last Myocardial Infarction Date:: 2003 History of Any Multi-Drug Resistant Organisms: Acinetobacter (MDRO), MRSA Date of last positivie culture/infection: 04/02/16 MDRO Source:: LT KNEE WOUND Past Surgical History: Heart Catheterization With Stent, Orthopedic Surgery Additional Past Surgical History / Comment(s): STENTS TO LEFT GROIN, LEFT ABOVE THE KNEE AMPUTATION, unsuccessful revascularization left leg, shoulder surgery, surgical debridement of necrotic tissue left scrotal area, LT AKA 03/03/16. left testicle removed. heart stent x1 broken left hip Past Anesthesia/Blood Transfusion Reactions: No Reported Reaction Date of Last Stent Placement:: 2006 Past Psychological History: Depression Smoking Status: Former smoker Past Alcohol Use History: None Reported Past Drug Use History: Marijuana - Past Family History Sister(s) Family Medical History: Cancer Additional Family Medical History / Comment(s): double mastectomy, still surviving Father Family Medical History: No Reported History Mother Family Medical History: No Reported History Additional Family Medical History / Comment(s): hypoglycemia Medications and Allergies Home Medications Medication Instructions Recorded Confirmed Type Aspirin 81 mg PO DAILY 01/14/14 03/23/23 History DULoxetine HCL [Cymbalta] 60 mg PO DAILY 01/14/14 03/23/23 History lisinopriL [Prinivil] 20 mg PO DAILY 01/14/14 03/23/23 History Pantoprazole Sodium [Protonix] 40 mg PO DAILY 06/13/18 03/23/23 History amLODIPine [Norvasc] 5 mg PO DAILY 06/13/18 03/23/23 History Atorvastatin [Lipitor] 80 mg PO DAILY #30 tab 07/20/20 03/23/23 Rx Metoprolol Succinate (ER) [Toprol 25 mg PO DAILY #30 tab.er.24h 07/20/20 03/23/23 Rx XL] Albuterol Sulfate [Proair Hfa] 2 puff INHALATION RT-QID PRN 08/29/21 03/23/23 History Tamsulosin [Flomax] 0.4 mg PO DAILY 08/29/21 03/23/23 History HYDROcodone/APAP 10-325MG [[place] 1 tab PO Q6HR PRN 07/12/22 03/23/23 History 10-325] Primidone [Mysoline] 25 mg PO HS 07/12/22 03/23/23 History Loratadine [Claritin] 10 mg PO DAILY 08/13/22 03/23/23 History Nitroglycerin Sl Tabs [Nitrostat] 0.4 mg SL Q5M PRN 08/13/22 03/23/23 History Albuterol Nebulized [Ventolin 2.5 mg INHALATION RT-Q6H PRN 03/23/23 03/23/23 History Nebulized] Clotrimazole/Betameth Cream 1 applic TOPICAL DAILY PRN 03/23/23 03/23/23 History [Lotrisone] Escitalopram [Lexapro] 20 mg PO DAILY 03/23/23 03/23/23 History Fluticasone/Umeclidin/Vilanter 1 puff INHALATION RT-DAILY 03/23/23 03/23/23 History [Trelegy Ellipta 200-62.5-25] Gabapentin 600 mg PO TID 03/23/23 03/23/23 History Megestrol Acetate 400 mg PO DAILY 03/23/23 03/23/23 History traZODone HCL 100 mg PO HS 03/23/23 03/23/23 History Allergies Allergy/AdvReac Type Severity Reaction Status Date / Time azithromycin [From Zithromax] Allergy Rash/Hives Verified 03/23/23 07:25 Physical Exam Vitals: Vital Signs Temp Pulse Resp BP Pulse Ox 03/23/23 10:49 87 18 155/93 94 L 03/23/23 08:02 71 03/23/23 07:51 77 03/23/23 07:46 69 18 155/81 94 L 03/23/23 06:28 69 19 139/87 94 L 03/23/23 05:12 67 17 135/59 94 L 03/23/23 04:45 71 17 118/82 93 L 03/23/23 04:18 98 03/23/23 04:04 56 L 03/23/23 03:53 57 L 03/23/23 03:46 57 L 16 136/80 98 03/23/23 03:16 98.6 F 65 20 120/60 92 L Intake and Output 03/22/23 03/23/23 03/23/23 22:59 06:59 14:59 Other: Weight 54.431 kg Results 03/23/23 03:22 03/23/23 03:22 Cardiac Enzymes 03/23/23 03/23/23 Range/Units 03:22 03:22 AST 27 (17-59) U/L Troponin I 0.014 (0.000-0.034) ng/mL Coagulation 03/23/23 Range/Units 03:22 PT 11.0 (10.0-12.5) sec APTT 24.4 (22.0-30.0) sec CBC 03/23/23 Range/Units 03:22 WBC 5.8 (3.8-10.6) k/uL RBC 3.39 L (4.30-5.90) m/uL Hgb 8.8 L (13.0-17.5) gm/dL Hct 29.4 L (39.0-53.0) % Plt Count 382 (150-450) k/uL Comprehensive Metabolic Panel 03/23/23 Range/Units 03:22 Sodium 138 (137-145) mmol/L Potassium 4.9 (3.5-5.1) mmol/L Chloride 107 (98-107) mmol/L Carbon Dioxide 26 (22-30) mmol/L BUN 37 H (9-20) mg/dL Creatinine 0.62 L (0.66-1.25) mg/dL Glucose 154 H (74-99) mg/dL Calcium 8.4 (8.4-10.2) mg/dL AST 27 (17-59) U/L ALT 20 (4-49) U/L Alkaline Phosphatase 65 (38-126) U/L Total Protein 5.6 L (6.3-8.2) g/dL Albumin 2.9 L (3.5-5.0) g/dL Current Medications Generic Name Dose Route Start Last Admin Trade Name Freq PRN Reason Stop Dose Admin Acetaminophen 650 mg 03/23/23 07:48 Acetaminophen Tab 325 Mg Tab PO Q4HR PRN Mild Pain or Fever > 100.5 Hydrocodone Bitart/Acetaminophen 1 each 03/23/23 09:30 Hydrocodone/Apap 10-325mg 1 Each Tab PO Q6HR PRN Pain Albuterol/Ipratropium 3 ml 03/23/23 08:00 Ipratropium-Albuterol 3 Ml Neb INHALATION RT-QID MERRITT Albuterol/Ipratropium 3 ml 03/23/23 07:48 Ipratropium-Albuterol 3 Ml Neb INHALATION RT-Q2H PRN Shortness Of Breath Or Wheezing Amlodipine Besylate 5 mg 03/24/23 09:00 Amlodipine 5 Mg Tab PO DAILY [facility] Aspirin 81 mg 03/24/23 09:00 Aspirin 81 Mg PO DAILY [facility] Atorvastatin Calcium 80 mg 03/24/23 09:00 Atorvastatin 80 Mg Tab PO DAILY [facility] Budesonide/Formoterol Fumarate 2 puff 03/24/23 08:00 Symbicort 80-4.5 Mcg Inhaler INHALATION RT-BID [facility] Doxycycline Monohydrate 100 mg 03/23/23 09:00 03/23/23 09:00 Doxycycline 100 Mg Cap PO 03/27/23 21:01 100 mg BID [facility] Administration Protocol Duloxetine HCl 60 mg 03/24/23 09:00 Duloxetine Hcl 60 Mg Capsule.Dr PO DAILY [facility] Escitalopram Oxalate 20 mg 03/24/23 09:00 Escitalopram 20 Mg Tab PO DAILY [facility] Famotidine 20 mg 03/24/23 09:00 Famotidine 20 Mg Tab PO DAILY [facility] Gabapentin 600 mg 03/23/23 16:00 Gabapentin 300 Mg Cap PO TID [facility] Heparin Sodium (Porcine) 5,000 unit 03/23/23 09:00 03/23/23 09:01 Heparin Sodium,Porcine 5,000 Unit/Ml 1 Ml Vial SQ Not Given Q12HR [facility] Lisinopril 20 mg 03/24/23 09:00 Lisinopril 20 Mg Tab PO DAILY [facility] Loratadine 10 mg 03/24/23 09:00 Loratadine 10 Mg Tab PO DAILY [facility] Megestrol Acetate 400 mg 03/24/23 09:00 Megestrol 400 Mg/10 Ml Cup PO DAILY [facility] Melatonin 3 mg 03/23/23 07:48 Melatonin 3 Mg Tablet PO HS PRN Insomnia Metoprolol Succinate 25 mg 03/24/23 09:00 Metoprolol Succinate (Er) 25 Mg Tab.Er.24h PO DAILY [facility] Naloxone HCl 0.2 mg 03/23/23 07:42 Naloxone 0.4 Mg/Ml 1 Ml Vial IVP Q2M PRN Opioid Reversal Nystatin 1 applic 03/23/23 21:00 Nystatin 100,000 Unit/Gm Oint 30 Gm Tube TOPICAL BID [facility] Protocol Pantoprazole Sodium 40 mg 03/24/23 07:30 Pantoprazole 40 Mg Tablet PO AC-BRKFST [facility] Prednisone 40 mg 03/23/23 09:00 03/23/23 09:00 Prednisone 20 Mg Tab PO 03/27/23 09:01 40 mg DAILY [facility] Administration Primidone 25 mg 03/23/23 21:00 Primidone 50 Mg Tab PO HS [facility] Tamsulosin HCl 0.4 mg 03/24/23 09:00 Tamsulosin 0.4 Mg Cap.Er.24h PO DAILY [facility] Trazodone HCl 100 mg 03/23/23 21:00 Trazodone Hcl 100 Mg Tab PO HS [facility] Intake and Output 03/22/23 03/23/23 03/23/23 22:59 06:59 14:59 Other: Weight 54.431 kg 03/23/23 03:22 03/23/23 03:22
[2023-03-24] MEDS: GABAPENTIN 300 MG CAP PO SCH ×3 (08:28→20:27)
[2023-03-24] MEDS: DULoxetine HCL 60 MG CAPSULE.DR PO SCH (08:28)
[2023-03-24] MEDS: DOXYCYCLINE 100 MG CAP PO SCH ×2 (08:28→20:40)
[2023-03-24] MEDS: lisinopriL 20 MG TAB PO SCH (08:28)
[2023-03-24] MEDS: METOPROLOL SUCCINATE (ER) 25 MG TAB.ER.24H PO SCH (08:28)
[2023-03-24] MEDS: ESCITALOPRAM 20 MG TAB PO SCH (08:28)
[2023-03-24] MEDS: amLODIPine 5 MG TAB PO SCH (08:28)
[2023-03-24] MEDS: predniSONE 20 MG TAB PO SCH (08:28)
[2023-03-24] MEDS: FAMOTIDINE 20 MG TAB PO SCH (08:28)
[2023-03-24] MEDS: HEPARIN SODIUM,PORCINE 5,000 UNIT/ML 1 ML VIAL SQ SCH ×2 (08:28→20:27)
[2023-03-24] MEDS: LORATADINE 10 MG TAB PO SCH (08:29)
[2023-03-24] MEDS: ASPIRIN 81 MG PO SCH (08:29)
[2023-03-24] MEDS: ATORVASTATIN 80 MG TAB PO SCH (08:29)
[2023-03-24] MEDS: TAMSULOSIN 0.4 MG CAP.ER.24H PO SCH (08:29)
[2023-03-24] MEDS: NYSTATIN 100,000 UNIT/GM OINT 30 GM TUBE TOPICAL SCH ×2 (08:29→20:32)
[2023-03-24] MEDS ORDERED: NITROGLYCERIN SL TABS 0.4 MG TAB SUBLINGUAL PRN ×2 (08:54→18:19)
[2023-03-24] MEDS ORDERED: ALPRAZolam 0.5 MG TAB PO PRN (08:54)
[2023-03-24] MEDS ORDERED: ALPRAZolam 0.25 MG TAB PO PRN (08:54)
[2023-03-24] MEDS ORDERED: ATORVASTATIN 80 MG TAB PO STA (08:54)
[2023-03-24] MEDS ORDERED: ASPIRIN 325 MG TAB PO STA (08:54)
[2023-03-24] MEDS ORDERED: PEG 3350 (236 GM/BTL) + LYTES 4,000 ML BOTTLE PO ONE (09:00)
--- NOTE | 2023-03-24 09:35 | P.PN ---
Subjective Progress Note Date: 03/24/23 This is a 72-year-old male patient who presented to the ER with concerns of shortness of breath. Patient reports he's had increased shortness of breath over the past 3 days. Patient does have past medical history of COPD is maintained on 2 L nasal cannula at home but reports that he was descending down to 70s. Additional medical history includes hyperlipidemia, hypertension, myocardial infarction, osteoarthritis, chronic back pain and ex-smoker. Influenza RSV COVID-19 negative. BNP elevated at 11,500. D-dimer elevated at 0.67. Chest x-ray completed showing no acute changes in the chest. Chest CTA completed showing no suspicious acute pulmonary embolism, multiple developing lung nodules and opacities suspicious for metastatic disease. Emphasis Jeremiah changes and large mediastinal lymphadenopathy. Thickened stomach wall moderate size hiatal hernia. Patient was started on by mouth doxycycline and prednisone along with DuoNeb breathing treatments. Will consult pulmonary services. Will also consult cardiology services due to elevated BNP. Patient reports improvement with shortness of breath. 2-D echo has been ordered pro-calcitonin level has been ordered. This time patient denies chest pain. Patient reports improvement shortness breath. Patient denies nausea vomiting or diarrhea. Patient denies urinary burning or frequency On 03/24/2023 patient is alert and oriented 3 currently resting in bed. Plans today for cardiac catheterization per cardiology services. Surgical services also following for anemia and gastric wall thickening possible plans for EGD during hospitalization. Pulmonary services are also following. Current vital signs temp 97.9, 97, respiratory rate 22, blood pressure 166/76 with pulse ox 98% on 2 L Objective - Vital Signs Vital signs: Vital Signs Temp 97.9 F 03/24/23 08:25 Pulse 72 03/24/23 08:34 Resp 22 03/24/23 08:25 BP 166/76 03/24/23 08:25 Pulse Ox 98 03/24/23 08:25 FiO2 Intake & Output 03/23/23 03/24/23 03/24/23 18:59 06:59 18:59 Intake Total 222 10 Balance 222 10 Weight 54.431 kg Intake: IV 10 Invasive Line 1 10 Oral 222 Other: Voiding Method Bedside Commode Bedside Commode # Voids 2 1 # Bowel Movements 1 - Exam Head normocephalic Neck supple Lungs clear to auscultation bilaterally no wheezing or crackles Heart regular rate and rhythm S1-S2, no rub or gallop Abdomen is soft nontender nondistended positive bowel sounds no he patosplenomegaly Extremities no edema Neuro alert and orientated to 3 - Labs CBC & Chem 7: 03/23/23 03:22 03/23/23 03:22 Labs: Abnormal Lab Results - Last 24 Hours (Table) 03/23/23 Range/Units 03:22 Iron 16 L (65-175) UG/DL % Saturation 5.06 L (15.00-50.00) Vitamin B12 1018.0 H (200.0-944.0) pg/mL Assessment and Plan Assessment: Acute exacerbation of COPD Chronic hypoxic respiratory failure wears 2-3 L at home Elevated BNP level. 2-D echo ordered Abnormal CTA suspicious pulmonary nodules Anemia and gastric wall thickening History of diabetes mellitus type 2 History of left [id number] amputation 2009 History of nicotine dependence Marijuana use History of coronary artery disease with stenting History of hyperlipidemia History of essential hypertension DVT prophylaxis Heparin. GI prophylaxis Pepcid pulmonary, surgical and cardiology services consulted Patient started on by mouth prednisone and antibiotic Plans for cardiac catheterization 03/24/2023 Tentative plans for EGD during hospitalization per surgical services 2-D echo ordered Repeat labs ordered
--- NOTE | 2023-03-24 12:03 | P.PN ---
Subjective Progress Note Date: 03/24/23 CHIEF COMPLAINT: Shortness of breath HISTORY OF PRESENT ILLNESS: Patient denies any abdominal pain. He denies any blood in his stools or black stools. He had a brown bowel movement this morning. Patient had EKG changes has been seen by cardiology and they have scheduled him for a heart catheterization today. Per cardiology patient is not cleared proceed with any procedures at this time. Labs pending. Vital stable. Patient does not want colonoscopy completed. He is agreeable to proceed with EG D. Iron level is low at 16 PHYSICAL EXAM: VITAL SIGNS: Reviewed. GENERAL: Well-developed in no acute distress. ABDOMEN: Soft. Nondistended. Nontender. NEUROLOGIC: Alert and oriented. Cranial nerves II through XII grossly intact. ASSESSMENT: 1. Anemia 2. Thickened stomach wall and moderate size hiatal hernia noted on CAT scan 3. Multiple developing lung nodules and opacities suspicious for metastatic disease noted on CT 4. COPD exacerbation PLAN: -Possible EGD tomorrow with Dr. Luong, pending cardiac clearance. Patient is declining colonoscopy at this time. 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 Signing provider agrees with the documented findings, assessment, and plan of care. Objective - Vital Signs Vital signs: Vital Signs Temp 97.9 F 03/24/23 08:25 Pulse 72 03/24/23 08:34 Resp 22 03/24/23 08:25 BP 166/76 03/24/23 08:25 Pulse Ox 98 03/24/23 08:25 FiO2 Intake & Output 03/23/23 03/24/23 03/24/23 18:59 06:59 18:59 Intake Total 222 10 Balance 222 10 Weight 54.431 kg Intake: IV 10 Invasive Line 1 10 Oral 222 Other: Voiding Method Bedside Commode Bedside Commode Bedside Commode # Voids 2 1 # Bowel Movements 1 - Labs CBC & Chem 7: 03/23/23 03:22 03/23/23 03:22 Labs: Abnormal Lab Results - Last 24 Hours (Table) 03/23/23 Range/Units 03:22 Iron 16 L (65-175) UG/DL % Saturation 5.06 L (15.00-50.00) Vitamin B12 1018.0 H (200.0-944.0) pg/mL
[2023-03-24] MEDS: SODIUM CHLORIDE 0.9% 1,000 ML in EMPTY BAG 1 BAG IV SCH (12:28)
[2023-03-24 13:10] LABS: HCT 31.1 % (39.0-53.0); HGB 9.3 gm/dL (13.0-17.5); Hypochromasia Marked; MCH 25.8 pg (25.0-35.0); MCV 86.2 fL (80.0-100.0); Mean Platelet Volume 8.9; Platelet Count 442 k/uL (150-450); RBC 3.61 m/uL (4.30-5.90); RDW 15.5 % (11.5-15.5); WBC 9.5 k/uL (3.8-10.6)
--- NOTE | 2023-03-24 13:48 | P.PN ---
Subjective Progress Note Date: 03/24/23 Principal diagnosis: Acute on chronic hypoxic history failure secondary to acute exacerbation of COPD, possible lung cancer. This is a 72-year-old male patient with a 50+ year smoking history stating he quit in August 2022, ongoing marijuana use, hypertension, hyperlipidemia, coronary disease with previous stent placement, peripheral vascular disease with left [id number] amputation, oxygen dependent chronic obstructive pulmonary disease. He states he had a three-day history of increasing shortness of breath, cough and congestion and while coughing his oxygen saturations dropped into the 70s. No fever chills. No hemoptysis. Chest x-ray revealed no acute pulmonary process. CT angiogram ruled out pulmonary embolism. There is however multiple developing lung nodules and opacities suspicious for metastatic disease. Enlarged mediastinal lymphadenopathy. Emphysematous changes. Thickened stomach wall. Moderate hiatal hernia. Echocardiogram revealed preserved left radicular systolic function with ejection fraction 50-55%. White count 5.8. Hemoglobin 8.8. Platelets 3 L. D-dimer 0.67. Sodium 138. Potassium 4.9. Bicarb 26. BUN 37. Creatinine 0.62. Troponin negative times one. ProBNP 11,500. Influenza screen negative. RSV screen negative. COVID-19 screen negative. Patient is seen today in consultation in the emergency department. He's currently sitting up on the stretcher. Awake and alert in no acute distress. Breathing a bit easier today compared to yesterday. Maintaining O2 saturations in the 90s on 2 L/m per nasal cannula. Afebrile. Hemodynamically stable. Patient was reevaluated today on 03/24/23, feeling better, breathing easier, patient is scheduled to undergo cardiac catheterization this afternoon by cardiology. And he will require cardiac clearance to undergo endoscopy for his evaluation of anemia. He shouldn't is being considered for EGD. I'm seeing the patient for his COPD, and he has multiple pulmonary nodules suspicious for metastatic disease in the lungs. At any rate patient has been a very noncompliant patient, and he never had any outpatient follow-up regarding his pulmonary status, this time he promised that he will after discharge. My plan is to eventually recommended a PET scan and decide whether the patient would benefit from CT-guided needle biopsy or bronchoscopy and biopsy. However this i s all to be done on outpatient basis. Day and pulmonary-mir, the patient is doing well, and he has less shortness of breath, hardly any cough, no wheezing Objective - Vital Signs Vital signs: Vital Signs Temp 98.3 F 03/24/23 12:00 Pulse 88 03/24/23 12:06 Resp 22 03/24/23 08:25 BP 138/69 03/24/23 12:00 Pulse Ox 96 03/24/23 12:00 FiO2 Intake & Output 03/23/23 03/24/23 03/24/23 18:59 06:59 18:59 Intake Total 222 10 Balance 222 10 Weight 54.431 kg Intake: IV 10 Invasive Line 1 10 Oral 222 Other: Voiding Method Bedside Commode Bedside Commode Bedside Commode # Voids 2 1 # Bowel Movements 1 - Exam Physical Exam: Revealed a 72-year-old white male in no distress Head: Atraumatic, normocephalic. HEENT:[Neck is supple.] [No neck masses.] [No thyromegaly.] [No JVD.] Chest: [Diminished breath sound bilaterally, no crackles or rhonchi or wheezes Cardiac: Normal S1 and S2, no S3 gallop, no murmur. 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 Neurological Exam: [No focal neurologic deficit.] alert oriented 3 psychiatric: Normal mood affect and normal mental status examination - Labs CBC & Chem 7: 03/24/23 09:33 03/23/23 03:22 Labs: Abnormal Lab Results - Last 24 Hours (Table) 03/23/23 03/24/23 Range/Units 03:22 09:33 RBC 3.61 L (4.30-5.90) m/uL Hgb 9.3 L (13.0-17.5) gm/dL Hct 31.1 L (39.0-53.0) % MCHC 30.0 L (31.0-37.0) g/dL Iron 16 L (65-175) UG/DL % Saturation 5.06 L (15.00-50.00) Vitamin B12 1018.0 H (200.0-944.0) pg/mL Assessment and Plan Assessment: Impression: Acute on chronic hypoxic respiratory failure secondary to acute exacerbation of COPD Chronic hypoxic respiratory failure on home O2 [id number] smoking history quit in August 11 023 Multiple pulmonary nodules highly suspicious for metastatic disease Moderate sized hiatal hernia Chronic anemia Coronary artery disease and previous stent placement Benign essential hypertension Peripheral vessel occlusive disease and previous left above-knee amputation Recommendation: Continue present course of bronchodilators including DuoNeb and Symbicort as well as prednisone taper Continue antibiotics Patient is scheduled for cardiac catheterization Patient also need EGD My plan is to continue present course of bronchodilators, and patient will need outpatient follow-up regarding his nodules Will eventually need a PET scan and decide what is the best approach to make a tissue diagnosis of this patient. We'll continue to follow Time with Patient: Less than 30
[2023-03-24] MEDS: LIDOCAINE 4% PATCH TOPICAL SCH (16:11)
[2023-03-24] MEDS: MEGESTROL 400 MG/10 ML CUP PO SCH (16:11)
[2023-03-24] MEDS ORDERED: MIDAZOLAM 2 MG/2 ML VIAL IVP ONE (17:38)
[2023-03-24] MEDS ORDERED: LIDOCAINE 1% INJ 10MG/ML (30 ML VIAL-PF) SQ ONE ×2 (17:38→17:39)
[2023-03-24] MEDS ORDERED: SODIUM CHLORIDE 0.9% 1,000 ML IV ONE (17:39)
[2023-03-24] MEDS ORDERED: VERAPAMIL SYRINGE (5 MG/10 ML) INTRAARTER ONE (17:41)
[2023-03-24] MEDS: HEPARIN SODIUM 1,000 UN/ML (10ML VL) IV ONE ×4 (17:42→18:18)
[2023-03-24] MEDS ORDERED: CLOPIDOGREL 75 MG TAB PO ONE (18:04)
[2023-03-24] MEDS ORDERED: CLOPIDOGREL 75 MG TAB ONE (18:04)
[2023-03-24] MEDS ORDERED: IOPAMIDOL-370 100ML BTL INJ ONE ×2 (18:07→18:14)
[2023-03-24] MEDS ORDERED: ZOLPIDEM 5 MG TAB PO PRN (18:19)
[2023-03-24] MEDS ORDERED: MAG HYDROX/AL HYDROX/SIMETH 30 ML CUP PO PRN (18:19)
[2023-03-24] MEDS ORDERED: RX INFO: IV CONTRAST WAS GIVEN 1 EACH MISC MISCELLANE PRN (18:19)
[2023-03-24] MEDS ORDERED: ATROPINE SULFATE 0.1 MG/ML 10ML SYRINGE IV PRN (18:19)
--- NOTE | 2023-03-24 18:28 | P.PCN ---
Date of Procedure: 03/24/23 Operative Findings: CARDIAC CATHETERIZATION AND PERCUTANEOUS CORONARY INTERVENTION PERFORMING PHYSICIAN: Paxton Palafox MD, [facility] PROCEDURE PERFORMED: 1. Selective right and left coronary angiogram 2. Successful PTCA of mid LAD using 4.0 x 20 mm noncompliant balloon with an excellent angiographic results 3. Adjunctive use of Doppler wire and intravascular imaging 4. Ultrasound guided access of the right radial artery INDICATION: The patient is a 72-year-old gentleman who was admitted to the hospital with shortness of breath. He underwent a workup including an EKG showing T-wave inve rsion anteriorly concerning for severe underlying coronary artery disease. He is known to have CAD with a prior stenting of the RCA and previously the LAD as well as. Beside that he does have multiple risk factors COMPLICATION: None APPROACH: Right radial artery LEVEL OF SEDATION: Moderate with the sedation time off 33 minutes PROCEDURE DESCRIPTION: After obtaining an informed consent the patient was brought to the cardiac labor and employment paralegal. The right radial artery was cannulated using micropuncture technique under ultrasound guidance and micronodular wire passed easily then I placed a 6-Turkmen 11 cm sheath at the right radial artery. I gave the patient 2 mg of verapamil intra-arterial and initially 3000 use of heparin intravenous with additional heparin given throughout the procedure using ACT as an monitoring. After that selective right and left coronary angiogram performed using JR4 and JL 3.5 catheters. After that I did Doppler wire measurement of the LAD subsequently balloon angioplasty of the LAD. The procedure was completed was no complication SELECTIVE CORONARY ANGIOGRAM: The right coronary artery: Large caliber vessel and dominant vessel. The RCA is a stented in the midportion and the stent is patent. The RCA bifurcates into PDA and PLV branches be the PDA branch has mild disease only. The PLV branch has mild to moderate nonobstructive coronary artery disease. Left main: Is angiographically normal. Bifurcates into an LCx and LAD The left circumflex: The LCx is a medium caliber vessel. Proximally gives rises into an OM which appears to have mild diffuse disease. The AV groove left circumflex was not opacified. The left anterior descending artery: Large caliber vessel. The proximal LAD appeared to have mild disease only. It gives rises into the first and second diagonals and they appears to be angiographically normal. The mid LAD is a stented with intermediate to severe in-stent restenosis. The LAD appeared to be distally normal. PCI OF THE LAD: Initially we decided to do Doppler wire measurement of the LAD. After zeroing the Doppler wire and equalizing between the Doppler wire and guiding catheter which was a JL 3.5 guiding catheter. Subsequently I did engage the left main using the catheter. Then I did wire the LAD and the wire was advanced distal to the lesion in the mid LAD. We did iFR and that came in to be flow-limiting an 0.83. At that point I did intravascular ultrasound of the left anterior descending artery which showed a diameter around 4 mm with a calcified lesion appears to be in-stent restenosis mostly biological in-stent restenosis more than mechanical in-stent restenosis. After that I did balloon angioplasty using 4 mm x 15 mm noncompliant balloon where I did multiple balloon inflation and prolonged inflation. The following angiogram showed excellent angiographic results and the procedure was completed with no complication. The patient tolerated the procedure very well CONCLUSION: 1. Severe in-stent restenosis of the LAD. I did perform successful balloon angioplasty of the LAD with reduction of stenosis from 70-80% to 0% was ALESSANDRO-3 flow. 2. Patent stent in the mid right coronary artery POSTPROCEDURE MANAGEMENT: 1. Dual antiplatelet therapy using aspirin and Plavix for at least 4 weeks 2. Aggressive cholesterol control 3. Follow-up with the patient
[2023-03-24] MEDS ORDERED: SODIUM CHLORIDE 0.9% 1,000 ML in EMPTY BAG 1 BAG IV SCH (18:30)
[2023-03-24] MEDS: PRIMIDONE 50 MG TAB PO SCH (20:27)
[2023-03-25] MEDS: HYDROcodone/APAP 10-325MG 1 EACH TAB PO PRN ×3 (00:43→21:10)
[2023-03-25] MEDS: SODIUM CHLORIDE 0.9% 1,000 ML in EMPTY BAG 1 BAG IV SCH (03:50)
[2023-03-25] MEDS ORDERED: HEPARIN SODIUM,PORCINE 10,000 UNIT in SODIUM CHLORIDE 0.9% 1,000 ML IRRIGATION PRN (07:00)
[2023-03-25] MEDS ORDERED: HEPARIN SODIUM,PORCINE (1 ML) 2,500 UNIT in SODIUM CHLORIDE 0.9% 250 ML IRRIGATION PRN (07:00)
[2023-03-25] MEDS: IPRATROPIUM-ALBUTEROL 3 ML NEB INHALATION SCH ×4 (08:09→20:50)
[2023-03-25] MEDS: SYMBICORT 160-4.5 MCG INHALER INHALATION SCH ×2 (08:09→20:50)
[2023-03-25 08:12] LABS: Basophils % (A) 1 %; Eosinophils # (A) 0.1 k/uL (0-0.7); Eosinophils % (A) 2 %; HCT 31.3 % (39.0-53.0); HGB 9.3 gm/dL (13.0-17.5); Hypochromasia Marked; Lymphocytes # (A) 0.9 k/uL (1.0-4.8); Lymphocytes % (A) 17 %; MCH 25.5 pg (25.0-35.0); MCHC 29.7 g/dL (31.0-37.0); Mean Platelet Volume 8.6; Monocytes # (A) 0.3 k/uL (0-1.0); Monocytes % (A) 6 %; Neutrophils # (A) 3.8 k/uL (1.3-7.7); Neutrophils % (A) 71 %; Platelet Count 425 k/uL (150-450); Poikilocytosis Slight; RBC 3.64 m/uL (4.30-5.90); RDW 15.6 % (11.5-15.5); WBC 5.3 k/uL (3.8-10.6)
[2023-03-25 08:24] LABS: ALT 19 U/L (4-49); AST 25 U/L (17-59); African American GFR (CKD) >90 (>60 ml/min/1.73 sqM); Alkaline Phosphatase 69 U/L (38-126); Anion Gap 7 mmol/L; Blood Urea Nitrogen 27 mg/dL (9-20); Calcium 8.9 mg/dL (8.4-10.2); Carbon Dioxide 27 mmol/L (22-30); Chloride 103 mmol/L (98-107); Glucose 106 mg/dL (74-99); Non-African American GFR(CKD) >90 (>60 ml/min/1.73 sqM); Potassium 4.3 mmol/L (3.5-5.1); Sodium 137 mmol/L (137-145); Total Bilirubin 0.4 mg/dL (0.2-1.3); Total Protein 5.8 g/dL (6.3-8.2)
[2023-03-25] MEDS: lisinopriL 20 MG TAB PO SCH (09:18)
[2023-03-25] MEDS: DOXYCYCLINE 100 MG CAP PO SCH ×2 (09:18→21:10)
[2023-03-25] MEDS: DULoxetine HCL 60 MG CAPSULE.DR PO SCH (09:18)
[2023-03-25] MEDS: TAMSULOSIN 0.4 MG CAP.ER.24H PO SCH (09:18)
[2023-03-25] MEDS: predniSONE 20 MG TAB PO SCH (09:18)
[2023-03-25] MEDS: GABAPENTIN 300 MG CAP PO SCH ×3 (09:18→21:10)
[2023-03-25] MEDS: MEGESTROL 400 MG/10 ML CUP PO SCH (09:18)
[2023-03-25] MEDS: ESCITALOPRAM 20 MG TAB PO SCH (09:18)
[2023-03-25] MEDS: METOPROLOL SUCCINATE (ER) 25 MG TAB.ER.24H PO SCH (09:18)
[2023-03-25] MEDS: ASPIRIN 81 MG PO SCH (09:18)
[2023-03-25] MEDS: LORATADINE 10 MG TAB PO SCH (09:19)
[2023-03-25] MEDS: FAMOTIDINE 20 MG TAB PO SCH (09:19)
[2023-03-25] MEDS: PANTOPRAZOLE 40 MG TABLET PO SCH (09:19)
[2023-03-25] MEDS: amLODIPine 5 MG TAB PO SCH (09:19)
[2023-03-25] MEDS: ATORVASTATIN 80 MG TAB PO SCH (09:19)
[2023-03-25] MEDS: LIDOCAINE 4% PATCH TOPICAL SCH (10:15)
[2023-03-25] MEDS: CLOPIDOGREL 75 MG TAB PO SCH (12:05)
[2023-03-25] MEDS: HEPARIN SODIUM,PORCINE 5,000 UNIT/ML 1 ML VIAL SQ SCH ×2 (12:06→21:10)
--- NOTE | 2023-03-25 13:20 | P.PN ---
Subjective Progress Note Date: 03/25/23 Principal diagnosis: Acute on chronic hypoxic history failure secondary to acute exacerbation of COPD, possible lung cancer. This is a 72-year-old male patient with a 50+ year smoking history stating he quit in August 2022, ongoing marijuana use, hypertension, hyperlipidemia, coronary disease with previous stent placement, peripheral vascular disease with left [id number] amputation, oxygen dependent chronic obstructive pulmonary disease. He states he had a three-day history of increasing shortness of breath, cough and congestion and while coughing his oxygen saturations dropped into the 70s. No fever chills. No hemoptysis. Chest x-ray revealed no acute pulmonary process. CT angiogram ruled out pulmonary embolism. There is however multiple developing lung nodules and opacities suspicious for metastatic disease. Enlarged mediastinal lymphadenopathy. Emphysematous changes. Thickened stomach wall. Moderate hiatal hernia. Echocardiogram revealed preserved left radicular systolic function with ejection fraction 50-55%. White count 5.8. Hemoglobin 8.8. Platelets 3 L. D-dimer 0.67. Sodium 138. Potassium 4.9. Bicarb 26. BUN 37. Creatinine 0.62. Troponin negative times one. ProBNP 11,500. Influenza screen negative. RSV screen negative. COVID-19 screen negative. Patient is seen today in consultation in the emergency department. He's currently sitting up on the stretcher. Awake and alert in no acute distress. Breathing a bit easier today compared to yesterday. Maintaining O2 saturations in the 90s on 2 L/m per nasal cannula. Afebrile. Hemodynamically stable. Patient was reevaluated today on 03/24/23, feeling better, breathing easier, patient is scheduled to undergo cardiac catheterization this afternoon by cardiology. And he will require cardiac clearance to undergo endoscopy for his evaluation of anemia. He shouldn't is being considered for EGD. I'm seeing the patient for his COPD, and he has multiple pulmonary nodules suspicious for metastatic disease in the lungs. At any rate patient has been a very noncompliant patient, and he never had any outpatient follow-up regarding his pulmonary status, this time he promised that he will after discharge. My plan is to eventually recommended a PET scan and decide whether the patient would benefit from CT-guided needle biopsy or bronchoscopy and biopsy. However this i s all to be done on outpatient basis. Day and pulmonary-mir, the patient is doing well, and he has less shortness of breath, hardly any cough, no wheezing Patient was reevaluated today on 03/25/2023, pulmonary-mir the patient seems to be doing well, he underwent cardiac catheterization and balloon angioplasty of the LAD with reduction of stenosis from 70% to 0% patient is doing well, he is supposed to have EGD, patient needed cardiac clearance for the EGD. Pulmonary- mir, patient was updated again on his pulmonary nodules and I am recommending definite outpatient follow-up on the PET scan on outpatient basis to decide on lung biopsy. In the past the patient failed to have follow-up in the office for his pulmonary issues WBC count today is 5.3 hemoglobin is 9.3. Basic metabolic profile is normal and the area profile is normal . PROcalcitonin level on this admission is 0.06 Objective - Vital Signs Vital signs: Vital Signs Temp 97.9 F 03/25/23 08:00 Pulse 82 03/25/23 11:53 Resp 18 03/25/23 08:00 BP 171/76 03/25/23 08:00 Pulse Ox 100 03/25/23 08:11 FiO2 Intake & Output 03/24/23 03/25/23 03/25/23 18:59 06:59 18:59 Intake Total 200 10 Output Total 2 Balance 198 10 Weight 54.431 kg Intake: IV 200 10 Invasive Line 1 10 Output: Urine 2 Other: Voiding Method Bedside Commode Bedside Commode Bedside Commode # Voids 2 3 # Bowel Movements 2 1 - Exam Physical Exam: Revealed a 72-year-old white male in no distress on 2 L nasal cannula., Head: Atraumatic, normocephalic. HEENT:[Neck is supple.] [No neck masses.] [No thyromegaly.] [No JVD.] Chest: [Diminished breath sound bilaterally, no crackles or rhonchi or wheezes Cardiac: Normal S1 and S2, no S3 gallop, no murmur. 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 Neurological Exam: [No focal neurologic deficit.] alert oriented 3 psychiatric: Normal mood affect and normal mental status examination - Labs CBC & Chem 7: 03/25/23 07:49 03/25/23 07:49 Labs: Abnormal Lab Results - Last 24 Hours (Table) 03/25/23 03/25/23 Range/Units 07:49 07:49 RBC 3.64 L (4.30-5.90) m/uL Hgb 9.3 L (13.0-17.5) gm/dL Hct 31.3 L (39.0-53.0) % MCHC 29.7 L (31.0-37.0) g/dL RDW 15.6 H (11.5-15.5) % Lymphocytes # 0.9 L (1.0-4.8) k/uL BUN 27 H (9-20) mg/dL Creatinine 0.64 L (0.66-1.25) mg/dL Glucose 106 H (74-99) mg/dL Total Protein 5.8 L (6.3-8.2) g/dL Albumin 3.0 L (3.5-5.0) g/dL Assessment and Plan Assessment: Impression: Acute on chronic hypoxic respiratory failure secondary to acute exacerbation of COPD Chronic hypoxic respiratory failure on home O2 Ex-smoker Multiple pulmonary nodules highly suspicious for metastatic disease Moderate sized hiatal hernia Chronic anemia Coronary artery disease and previous stent placement, patient underwent balloon angioplasty of LAD on this admission/successful Benign essential hypertension Peripheral vessel occlusive disease and previous left above-knee amputation Recommendation: Continue bronchodilators including DuoNeb and Symbicort as well as prednisone taper Discontinue antibiotics since pro calcitonin level is normal Reviewed the reports from his recent cardiac catheterization and balloon angioplasty of LAD Patient is being considered for EGD Patient will definitely need outpatient follow-up with me regarding his pulmonary nodules and his COPD Patient will definitely need a PET scan on outpatient basis We'll continue to follow Time with Patient: Less than 30
[2023-03-25 13:27] VITALS: BMI 15.0
--- NOTE | 2023-03-25 14:07 | P.PN ---
Subjective HISTORY OF PRESENT ILLNESS: This is a 72-year-old male with a past medical history significant for hypertension, hyperlipidemia, diabetes, coronary artery disease with previous PCI of the RCA and intermediate to severe disease involving the LAD, peripheral arterial disease with left AKA, COPD, nicotine dependence. Patient follows in the office with Dr. Palafox. We have been asked to see the patient in consultation for congestive heart failure. Patient examined at the bedside. Patient is sitting on side of the bed. Patient states he came to the hospital due to a chief complaint of shortness of breath. Patient he was having another bout of pneumonia. He does feel short of breath at rest this morning. He has a conge sted cough during evaluation. He denies any chest pain or pressure. * EKG reveals sinus mechanism with diffuse T-wave inversions, new from EKG in August 2022 * Chest xray negative for acute process * Chest CT: Negative for pulmonary embolism, multiple developing lung nodules and opacities suspicious for metastatic disease, moderately sized hiatal hernia, thickened stomach wall, enlarged mediastinal lymphadenopathy * Laboratory data: WBC 5.8. Hemoglobin 8.8. Platelet count 382. D-dimer 0.67. Sodium 130. Potassium 4.9. BUN 37. Creatinine 0.62. Troponin negative 1. ProBNP 11,500 * Current home cardiac medications include lisinopril 20 mg daily, Lipitor 80 mg daily, amlodipine 5 mg daily, and metoprolol succinate 25 mg daily * Most recent echocardiogram obtained in August 2021 revealed ejection fraction 55- 60%, severe RV enlargement, severe pulmonary hypertension and moderate tricuspid regurgitation * Cardiac catheterization history: August 2020 revealing critical disease of the RCA. Intermediate in-stent restenosis involving the mid LAD. Patient underwent stenting of the mid RCA 03/25/2023 Patient examined this morning at the bedside. Patient was found to have severe in-stent restenosis of LAD. He underwent successful balloon angioplasty with reduction of stenosis from 70-80% to 0%. Echocardiogram completed revealing ejection fraction 50-55%, no obvious regional wall motion abnormalities, and moderate TR. Patient currently denies chest pain or pressure. He denies shortness of breath. Vital signs are stable. PHYSICAL EXAM: VITAL SIGNS: Reviewed. GENERAL: Well-developed in no acute distress. HEENT: Head is normocephalic. Pupils are equal, round. Sclerae anicteric. Mucous membranes of the mouth are moist. Neck supple. No JVD or thyromegaly LUNGS: Respirations even and unlabored. Lungs expiratory wheezing noted HEART: Regular rate and rhythm. S1 and S2 heard. ABDOMEN: Soft. Nondistended. Nontender. EXTREMITIES: Normal range of motion. No clubbing or cyanosis. Left AKA. NEUROLOGIC: Awake and alert. Oriented x 3. ASSESSMENT: Shortness of breath Abnormal EKG with diffuse T-wave inversions, s/p balloon angioplasty of LAD Chronic hypoxic respiratory failure on home oxygen Coronary artery disease with previous PCI of the RCA and intermediate to severe disease involving the LAD Peripheral arterial disease with left AKA Multiple developing lung nodules and opacities suspicious for metastatic disease Thickened stomach wall and moderate hiatal hernia Hypertension Hyperlipidemia Diabetes COPD Nicotine dependence, former smoker History of anemia PLAN: Discussed case with Dr. Luong. Patient may undergo endoscopy from a cardiac standpoint. However his Plavix may not be held secondary to angioplasty performed yesterday. Patient needs to remain on aspirin and Plavix for minimum of 4 weeks. Continue additional cardiac medications Further recommendations pending patient's course Nurse practitioner note has been reviewed by physician. Signing provider agrees with the documented findings, assessment, and plan of care. Objective - Vital Signs Vital signs: Vital Signs Temp 98.0 F 03/25/23 03:49 Pulse 80 03/25/23 08:24 Resp 18 03/25/23 03:49 BP 141/74 03/25/23 03:49 Pulse Ox 100 03/25/23 08:11 FiO2 Intake & Output 03/24/23 03/25/23 03/25/23 18:59 06:59 18:59 Intake Total 200 10 Output Total 2 Balance 198 10 Intake: IV 200 10 Invasive Line 1 10 Output: Urine 2 Other: Voiding Method Bedside Commode Bedside Commode # Voids 2 # Bowel Movements 2 1 - Labs CBC & Chem 7: 03/25/23 07:49 03/25/23 07:49 Labs: Abnormal Lab Results - Last 24 Hours (Table) 03/24/23 03/25/23 03/25/23 Range/Units 09:33 07:49 07:49 RBC 3.61 L 3.64 L (4.30-5.90) m/uL Hgb 9.3 L 9.3 L (13.0-17.5) gm/dL Hct 31.1 L 31.3 L (39.0-53.0) % MCHC 30.0 L 29.7 L (31.0-37.0) g/dL RDW 15.6 H (11.5-15.5) % Lymphocytes # 0.9 L (1.0-4.8) k/uL BUN 27 H (9-20) mg/dL Creatinine 0.64 L (0.66-1.25) mg/dL Glucose 106 H (74-99) mg/dL Total Protein 5.8 L (6.3-8.2) g/dL Albumin 3.0 L (3.5-5.0) g/dL
--- NOTE | 2023-03-25 15:35 | P.PN ---
Subjective Progress Note Date: 03/25/23 Principal diagnosis: Gastric wall thickening Patient doing well today. Denies abdominal pain. No rectal bleeding or melena. He did go for cardiac catheterization yesterday with angioplasty. No stent was placed. Requires Plavix for the next 4 weeks. Objective - Vital Signs Vital signs: Vital Signs Temp 97.9 F 03/25/23 08:00 Pulse 78 03/25/23 14:00 Resp 18 03/25/23 14:00 BP 142/65 03/25/23 12:00 Pulse Ox 99 03/25/23 12:00 FiO2 Intake & Output 03/24/23 03/25/23 03/25/23 18:59 06:59 18:59 Intake Total 200 10 Output Total 2 Balance 198 10 Weight 54.431 kg Intake: IV 200 10 Invasive Line 1 10 Output: Urine 2 Other: Voiding Method Bedside Commode Bedside Commode Bedside Commode # Voids 2 3 # Bowel Movements 2 1 - Exam Abdomen: Soft, nontender, nondistended - Labs CBC & Chem 7: 03/25/23 07:49 03/25/23 07:49 Labs: Abnormal Lab Results - Last 24 Hours (Table) 03/25/23 03/25/23 Range/Units 07:49 07:49 RBC 3.64 L (4.30-5.90) m/uL Hgb 9.3 L (13.0-17.5) gm/dL Hct 31.3 L (39.0-53.0) % MCHC 29.7 L (31.0-37.0) g/dL RDW 15.6 H (11.5-15.5) % Lymphocytes # 0.9 L (1.0-4.8) k/uL BUN 27 H (9-20) mg/dL Creatinine 0.64 L (0.66-1.25) mg/dL Glucose 106 H (74-99) mg/dL Total Protein 5.8 L (6.3-8.2) g/dL Albumin 3.0 L (3.5-5.0) g/dL Assessment and Plan (1) Gastric wall thickening Narrative/Plan: 72-year-old male with gastric wall thickening. EGD on hold since Plavix cannot be held at this time. This will be scheduled for weeks from now. We'll sign off. Please call if needed. Current Visit: Yes Status: Acute Code(s): K31.89 - OTHER DISEASES OF STOMACH AND DUODENUM SNOMED Code(s): 08827388
[2023-03-25] MEDS: NYSTATIN 100,000 UNIT/GM OINT 30 GM TUBE TOPICAL SCH ×2 (17:10→21:14)
[2023-03-25] MEDS: traZODone HCL 100 MG TAB PO SCH (21:10)
[2023-03-25] MEDS: PRIMIDONE 50 MG TAB PO SCH (21:10)
[2023-03-26] MEDS: HYDROcodone/APAP 10-325MG 1 EACH TAB PO PRN ×2 (04:08→13:17)
[2023-03-26] MEDS: PANTOPRAZOLE 40 MG TABLET PO SCH (06:31)
[2023-03-26] MEDS: IPRATROPIUM-ALBUTEROL 3 ML NEB INHALATION SCH ×2 (08:17→11:28)
[2023-03-26] MEDS: SYMBICORT 160-4.5 MCG INHALER INHALATION SCH (08:17)
[2023-03-26] MEDS: METOPROLOL SUCCINATE (ER) 25 MG TAB.ER.24H PO SCH (09:59)
[2023-03-26] MEDS: CLOPIDOGREL 75 MG TAB PO SCH (09:59)
[2023-03-26] MEDS: LORATADINE 10 MG TAB PO SCH (09:59)
[2023-03-26] MEDS: predniSONE 20 MG TAB PO SCH (09:59)
[2023-03-26] MEDS: HEPARIN SODIUM,PORCINE 5,000 UNIT/ML 1 ML VIAL SQ SCH (09:59)
[2023-03-26] MEDS: FAMOTIDINE 20 MG TAB PO SCH (09:59)
[2023-03-26] MEDS: DULoxetine HCL 60 MG CAPSULE.DR PO SCH (09:59)
[2023-03-26] MEDS: MEGESTROL 400 MG/10 ML CUP PO SCH (09:59)
[2023-03-26] MEDS: GABAPENTIN 300 MG CAP PO SCH (09:59)
[2023-03-26] MEDS: amLODIPine 5 MG TAB PO SCH (10:00)
[2023-03-26] MEDS: TAMSULOSIN 0.4 MG CAP.ER.24H PO SCH (10:00)
[2023-03-26] MEDS: DOXYCYCLINE 100 MG CAP PO SCH (10:00)
[2023-03-26] MEDS: lisinopriL 20 MG TAB PO SCH (10:00)
[2023-03-26] MEDS: ATORVASTATIN 80 MG TAB PO SCH (10:00)
[2023-03-26] MEDS: ESCITALOPRAM 20 MG TAB PO SCH (10:00)
[2023-03-26] MEDS: ASPIRIN 81 MG PO SCH (10:00)
[2023-03-26] MEDS: LIDOCAINE 4% PATCH TOPICAL SCH ×2 (10:04→13:19)
[2023-03-26] MEDS: NYSTATIN 100,000 UNIT/GM OINT 30 GM TUBE TOPICAL SCH (10:04)
--- NOTE | 2023-03-26 10:30 | P.PN ---
Subjective Progress Note Date: 03/25/23 This is a 72-year-old male patient who presented to the ER with concerns of shortness of breath. Patient reports he's had increased shortness of breath over the past 3 days. Patient does have past medical history of COPD is maintained on 2 L nasal cannula at home but reports that he was descending down to 70s. Additional medical history includes hyperlipidemia, hypertension, myocardial infarction, osteoarthritis, chronic back pain and ex-smoker. Influenza RSV COVID-19 negative. BNP elevated at 11,500. D-dimer elevated at 0.67. Chest x-ray completed showing no acute changes in the chest. Chest CTA completed showing no suspicious acute pulmonary embolism, multiple developing lung nodules and opacities suspicious for metastatic disease. Emphasis Jeremiah changes and large mediastinal lymphadenopathy. Thickened stomach wall moderate size hiatal hernia. Patient was started on by mouth doxycycline and prednisone along with DuoNeb breathing treatments. Will consult pulmonary services. Will also consult cardiology services due to elevated BNP. Patient reports improvement with shortness of breath. 2-D echo has been ordered pro-calcitonin level has been ordered. This time patient denies chest pain. Patient reports improvement shortness breath. Patient denies nausea vomiting or diarrhea. Patient denies urinary burning or frequency On 03/24/2023 patient is alert and oriented 3 currently resting in bed. Plans today for cardiac catheterization per cardiology services. Surgical services also following for anemia and gastric wall thickening possible plans for EGD during hospitalization. Pulmonary services are also following. Current vital signs temp 97.9, 97, respiratory rate 22, blood pressure 166/76 with pulse ox 98% on 2 L On 03/25/2023 patient is alert and oriented 3. Status post cardiac cath with ballooning of the LAD. Recommendations of dual antiplatelet therapy of aspirin and Plavix. Patient denies chest pain or shortness breath. Patient denies nausea vomiting diarrhea. Patient denies any urinary burning or frequency Objective - Vital Signs Vital signs: Vital Signs Temp 98.0 F 03/25/23 03:49 Pulse 80 03/25/23 08:24 Resp 18 03/25/23 03:49 BP 141/74 03/25/23 03:49 Pulse Ox 100 03/25/23 08:11 FiO2 Intake & Output 03/24/23 03/25/23 03/25/23 18:59 06:59 18:59 Intake Total 200 10 Output Total 2 Balance 198 10 Intake: IV 200 10 Invasive Line 1 10 Output: Urine 2 Other: Voiding Method Bedside Commode Bedside Commode # Voids 2 # Bowel Movements 2 1 - Exam Head normocephalic Neck supple Lungs clear to auscultation bilaterally no wheezing or crackles Heart regular rate and rhythm S1-S2, no rub or gallop Abdomen is soft nontender nondistended positive bowel sounds no hepatosplenomegaly Extremities no edema Neuro alert and orientated to 3 - Labs CBC & Chem 7: 03/25/23 07:49 03/25/23 07:49 Labs: Abnormal Lab Results - Last 24 Hours (Table) 03/24/23 03/25/23 03/25/23 Range/Units 09:33 07:49 07:49 RBC 3.61 L 3.64 L (4.30-5.90) m/uL Hgb 9.3 L 9.3 L (13.0-17.5) gm/dL Hct 31.1 L 31.3 L (39.0-53.0) % MCHC 30.0 L 29.7 L (31.0-37.0) g/dL RDW 15.6 H (11.5-15.5) % Lymphocytes # 0.9 L (1.0-4.8) k/uL BUN 27 H (9-20) mg/dL Creatinine 0.64 L (0.66-1.25) mg/dL Glucose 106 H (74-99) mg/dL Total Protein 5.8 L (6.3-8.2) g/dL Albumin 3.0 L (3.5-5.0) g/dL Assessment and Plan Assessment: Acute exacerbation of COPD Chronic hypoxic respiratory failure wears 2-3 L at home Elevated BNP level. 2-D echo ordered Abnormal CTA suspicious pulmonary nodules Anemia and gastric wall thickening History of diabetes mellitus type 2 History of left [id number] amputation 2009 History of nicotine dependence Marijuana use History of coronary artery disease with stenting History of hyperlipidemia History of essential hypertension DVT prophylaxis Heparin. GI prophylaxis Pepcid pulmonary, surgical and cardiology services consulted Patient started on by mouth prednisone and antibiotic Plans for cardiac catheterization 03/24/2023 Tentative plans for EGD during hospitalization per surgical services Repeat labs ordered
--- NOTE | 2023-03-26 10:46 | P.DS ---
Providers Date of admission: 03/23/23 07:49 Expected date of discharge: 03/26/23 Attending physician: Fidencio Barrientos Consults: 03/23/23 08:12 Consult Physician Routine Consulting Provider: Patricio Flanagan Consult Reason/Comments: CTA, COPD Do you want consulting provider notified?: Yes 03/23/23 08:13 Consult Physician Routine Consulting Provider: John Vasquez Consult Reason/Comments: chf Do you want consulting provider notified?: Yes 03/24/23 18:20 Consult Physician Routine Consulting Provider: [facility] Consult Reason/Comments: Post Interventional patient Do you want consulting provider notified?: Already Contacted Primary care physician: Fidenciolien Barrientos [facility] Course: Discharge diagnosis Acute exacerbation of COPD Chronic hypoxic respiratory failure wears 2-3 L at home Elevated BNP level. 2-D echo ordered Abnormal CTA suspicious pulmonary nodules Anemia and gastric wall thickening History of diabetes mellitus type 2 History of left [id number] amputation 2009 History of nicotine dependence Marijuana use History of coronary artery disease with stenting History of hyperlipidemia History of essential hypertension Hospital course This is a 72-year-old male patient who presented to the ER with concerns of shortness of breath. Patient reports he's had increased shortness of breath over the past 3 days. Patient does have past medical history of COPD is maintained on 2 L nasal cannula at home but reports that he was descending down to 70s. Additional medical history includes hyperlipidemia, hypertension, myocardial infarction, osteoarthritis, chronic back pain and ex-smoker. Influenza RSV COVID-19 negative. BNP elevated at 11,500. D-dimer elevated at 0.67. Chest x-ray completed showing no acute changes in the chest. Chest CTA completed showing no suspicious acute pulmonary embolism, multiple developing lung nodules and opacities suspicious for metastatic disease. Emphasis Jeremiah changes and large mediastinal lymphadenopathy. Thickened stomach wall moderate size hiatal hernia. Patient was started on by mouth doxycycline and prednisone along with DuoNeb breathing treatments. Will consult pulmonary services. Will also consult cardiology services due to elevated BNP. Patient reports improvement with shortness of breath. 2-D echo has been ordered pro-calcitonin level has been ordered. This time patient denies chest pain. Patient reports improvement shortness breath. Patient denies nausea vomiting or diarrhea. Patient denies urinary burning or frequency On 03/24/2023 patient is alert and oriented 3 currently resting in bed. Plans today for cardiac catheterization per cardiology services. Surgical services also following for anemia and gastric wall thickening possible plans for EGD during hospitalization. Pulmonary services are also following. Current vital signs temp 97.9, 97, respiratory rate 22, blood pressure 166/76 with pulse ox 98% on 2 L On 03/25/2023 patient is alert and oriented 3. Status post cardiac cath with ballooning of the LAD. Recommendations of dual antiplatelet therapy of aspirin and Plavix. Patient denies chest pain or shortness breath. Patient denies nausea vomiting diarrhea. Patient denies any urinary burning or frequency On 03/26/2023 patient is alert and oriented 3. She has been cleared from cardiology and pulmonary services. Patient will be DC'd on Plavix and aspirin for 4 weeks and will follow-up for EGD outpatient. Patient will also need close follow up with pulmonary services for PET scan. Patient verbalized understanding with this plan. Patient denies chest pain or shortness breath. Patient denies nausea vomiting or diarrhea. Patient denies any urinary burning or frequency Patient Condition at Discharge: Stable Plan - Discharge Summary Discharge Rx Participant: No New Discharge Prescriptions: New Clopidogrel [Plavix] 75 mg PO DAILY 30 Days #30 tab Doxycycline [Vibramycin] 100 mg PO BID 4 Days #8 cap predniSONE 10 mg PO DIRECTED 12 Days #30 tab Continue Aspirin 81 mg PO DAILY DULoxetine HCL [Cymbalta] 60 mg PO DAILY lisinopriL [Prinivil] 20 mg PO DAILY Pantoprazole Sodium [Protonix] 40 mg PO DAILY amLODIPine [Norvasc] 5 mg PO DAILY Albuterol Sulfate [Proair Hfa] 2 puff INHALATION RT-QID PRN PRN Reason: Shortness Of Breath Primidone [Mysoline] 25 mg PO HS Nitroglycerin Sl Tabs [Nitrostat] 0.4 mg SL Q5M PRN PRN Reason: Chest Pain Escitalopram [Lexapro] 20 mg PO DAILY Atorvastatin [Lipitor] 80 mg PO DAILY #30 tab Metoprolol Succinate (ER) [Toprol XL] 25 mg PO DAILY #30 tab.er.24h Tamsulosin [Flomax] 0.4 mg PO DAILY HYDROcodone/APAP 10-325MG [Ivins 10-325] 1 tab PO Q6HR PRN PRN Reason: Pain Loratadine [Claritin] 10 mg PO DAILY Megestrol Acetate 400 mg PO DAILY Albuterol Nebulized [Ventolin Nebulized] 2.5 mg INHALATION RT-Q6H PRN PRN Reason: Shortness Of Breath Or Wheezing Clotrimazole/Betameth Cream [Lotrisone] 1 applic TOPICAL DAILY PRN PRN Reason: Skin Irritation traZODone HCL 100 mg PO HS Gabapentin 600 mg PO TID Fluticasone/Umeclidin/Vilanter [Trelegy Ellipta 200-62.5-25] 1 puff INHALATION RT-DAILY Discharge Medication List Aspirin 81 mg PO DAILY 01/14/14 [History] DULoxetine HCL [Cymbalta] 60 mg PO DAILY 01/14/14 [History] lisinopriL [Prinivil] 20 mg PO DAILY 01/14/14 [History] Pantoprazole Sodium [Protonix] 40 mg PO DAILY 06/13/18 [History] amLODIPine [Norvasc] 5 mg PO DAILY 06/13/18 [History] Atorvastatin [Lipitor] 80 mg PO DAILY #30 tab 07/20/20 [Rx] Metoprolol Succinate (ER) [Toprol XL] 25 mg PO DAILY #30 tab.er.24h 07/20/20 [Rx] Albuterol Sulfate [Proair Hfa] 2 puff INHALATION RT-QID PRN 08/29/21 [History] Tamsulosin [Flomax] 0.4 mg PO DAILY 08/29/21 [History] HYDROcodone/APAP 10-325MG [Ivins 10-325] 1 tab PO Q6HR PRN 07/12/22 [History] Primidone [Mysoline] 25 mg PO HS 07/12/22 [History] Loratadine [Claritin] 10 mg PO DAILY 08/13/22 [History] Nitroglycerin Sl Tabs [Nitrostat] 0.4 mg SL Q5M PRN 08/13/22 [History] Albuterol Nebulized [Ventolin Nebulized] 2.5 mg INHALATION RT-Q6H PRN 03/23/23 [History] Clotrimazole/Betameth Cream [Lotrisone] 1 applic TOPICAL DAILY PRN 03/23/23 [History] Escitalopram [Lexapro] 20 mg PO DAILY 03/23/23 [History] Fluticasone/Umeclidin/Vilanter [Trelegy Ellipta 200-62.5-25] 1 puff INHALATION RT-DAILY 03/23/23 [History] Gabapentin 600 mg PO TID 03/23/23 [History] Megestrol Acetate 400 mg PO DAILY 03/23/23 [History] traZODone HCL 100 mg PO HS 03/23/23 [History] Clopidogrel [Plavix] 75 mg PO DAILY 30 Days #30 tab 03/26/23 [Rx] Doxycycline [Vibramycin] 100 mg PO BID 4 Days #8 cap 03/26/23 [Rx] predniSONE 10 mg PO DIRECTED 12 Days #30 tab 03/26/23 [Rx] Follow up Appointment(s)/Referral(s): Ganga Luong MD [Medical Doctor] - 2 Weeks Patricio Flanagan MD [STAFF PHYSICIAN] - 1 Week Fidencio Barrientos MD [Primary Care Provider] - 1-2 days Activity/Diet/Wound Care/Special Instructions: Discharge diagnosis Acute exacerbation of COPD Chronic hypoxic respiratory failure wears 2-3 L at home Elevated BNP level. 2-D echo ordered Abnormal CTA suspicious pulmonary nodules Anemia and gastric wall thickening History of diabetes mellitus type 2 History of left aelic-suu-eqqc amputation 2009 History of nicotine dependence Marijuana use History of coronary artery disease with stenting History of hyperlipidemia History of essential hypertension Hospital course This is a 72-year-old male patient who presented to the ER with concerns of shortness of breath. Patient reports he's had increased shortness of breath over the past 3 days. Patient does have past medical history of COPD is maintained on 2 L nasal cannula at home but reports that he was descending down to 70s. Additional medical history includes hyperlipidemia, hypertension, myocardial infarction, osteoarthritis, chronic back pain and ex-smoker. Influenza RSV COVID-19 negative. BNP elevated at 11,500. D-dimer elevated at 0.67. Chest x-ray completed showing no acute changes in the chest. Chest CTA completed showing no suspicious acute pulmonary embolism, multiple developing lung nodules and opacities suspicious for metastatic disease. Emphasis Jeremiah changes and large mediastinal lymphadenopathy. Thickened stomach wall moderate size hiatal hernia. Patient was started on by mouth doxycycline and prednisone along with DuoNeb breathing treatments. Will consult pulmonary services. Will also consult cardiology services due to elevated BNP. Patient reports improvement with shortness of breath. 2-D echo has been ordered pro-calcitonin level has been ordered. This time patient denies chest pain. Patient reports improvement shortness breath. Patient denies nausea vomiting or diarrhea. Patient denies urinary burning or frequency On 03/24/2023 patient is alert and oriented 3 currently resting in bed. Plans today for cardiac catheterization per cardiology services. Surgical services also following for anemia and gastric wall thickening possible plans for EGD during hospitalization. Pulmonary services are also following. Current vital signs temp 97.9, 97, respiratory rate 22, blood pressure 166/76 with pulse ox 98% on 2 L On 03/25/2023 patient is alert and oriented 3. Status post cardiac cath with ballooning of the LAD. Recommendations of dual antiplatelet therapy of aspirin and Plavix. Patient denies chest pain or shortness breath. Patient denies nausea vomiting diarrhea. Patient denies any urinary burning or frequency On 03/26/2023 discussed case with cardiology services patient cleared for di heladioge continue aspirin and Plavix for 4 weeks. EGD will be on hold until after Plavix can be held patient will follow-up outpatient. Patient will also need close follow up with pulmonary services in regards to pulmonary nodules. Patient verbalized understanding. Patient denies chest pain or shortness breath. Patient denies nausea vomiting or diarrhea. Patient denies any urinary burning or frequency. Patient will be discharged on doxycycline and prednisone taper. Discharge Disposition: HOME SELF-CARE
[2023-03-26 11:29] VITALS: BP 131/70; RESP 22; TEMP 98
[2023-03-26 11:54] VITALS: PULSE 72
--- NOTE | 2023-03-26 12:52 | P.PN ---
Subjective HISTORY OF PRESENT ILLNESS: This is a 72-year-old male with a past medical history significant for hypertension, hyperlipidemia, diabetes, coronary artery disease with previous PCI of the RCA and intermediate to severe disease involving the LAD, peripheral arterial disease with left AKA, COPD, nicotine dependence. Patient follows in the office with Dr. Palafox. We have been asked to see the patient in consultation for congestive heart failure. Patient examined at the bedside. Patient is sitting on side of the bed. Patient states he came to the hospital due to a chief complaint of shortness of breath. Patient he was having another bout of pneumonia. He does feel short of breath at rest this morning. He has a conge sted cough during evaluation. He denies any chest pain or pressure. * EKG reveals sinus mechanism with diffuse T-wave inversions, new from EKG in August 2022 * Chest xray negative for acute process * Chest CT: Negative for pulmonary embolism, multiple developing lung nodules and opacities suspicious for metastatic disease, moderately sized hiatal hernia, thickened stomach wall, enlarged mediastinal lymphadenopathy * Laboratory data: WBC 5.8. Hemoglobin 8.8. Platelet count 382. D-dimer 0.67. Sodium 130. Potassium 4.9. BUN 37. Creatinine 0.62. Troponin negative 1. ProBNP 11,500 * Current home cardiac medications include lisinopril 20 mg daily, Lipitor 80 mg daily, amlodipine 5 mg daily, and metoprolol succinate 25 mg daily * Most recent echocardiogram obtained in August 2021 revealed ejection fraction 55- 60%, severe RV enlargement, severe pulmonary hypertension and moderate tricuspid regurgitation * Cardiac catheterization history: August 2020 revealing critical disease of the RCA. Intermediate in-stent restenosis involving the mid LAD. Patient underwent stenting of the mid RCA 03/25/2023 Patient examined this morning at the bedside. Patient was found to have severe in-stent restenosis of LAD. He underwent successful balloon angioplasty with reduction of stenosis from 70-80% to 0%. Echocardiogram completed revealing ejection fraction 50-55%, no obvious regional wall motion abnormalities, and moderate TR. Patient currently denies chest pain or pressure. He denies shortness of breath. Vital signs are stable. 03/26/2023 Patient examined this morning at the bedside. Patient currently denies chest pain or pressure. He denies shortness of breath. He remains on dual antiplatelet therapy with aspirin and Plavix. EGD has been postponed and will be performed on an outpatient basis once Plavix has been discontinued per general surgery. PHYSICAL EXAM: VITAL SIGNS: Reviewed. GENERAL: Well-developed in no acute distress. HEENT: Head is normocephalic. Pupils are equal, round. Sclerae anicteric. Mucous membranes of the mouth are moist. Neck supple. No JVD or thyromegaly LUNGS: Respirations even and unlabored. Lungs expiratory wheezing noted HEART: Regular rate and rhythm. S1 and S2 heard. ABDOMEN: Soft. Nondistended. Nontender. EXTREMITIES: Normal range of motion. No clubbing or cyanosis. Left AKA. NEUROLOGIC: Awake and alert. Oriented x 3. ASSESSMENT: Shortness of breath Abnormal EKG with diffuse T-wave inversions, s/p balloon angioplasty of LAD Chronic hypoxic respiratory failure on home oxygen Coronary artery disease with previous PCI of the RCA and intermediate to severe disease involving the LAD Peripheral arterial disease with left AKA Multiple developing lung nodules and opacities suspicious for metastatic disease Thickened stomach wall and moderate hiatal hernia Hypertension Hyperlipidemia Diabetes COPD Nicotine dependence, former smoker History of anemia PLAN: Patient needs to remain on aspirin and Plavix for minimum of 4 weeks. Continue additional cardiac medications Patient may be discharged home today from a cardiac standpoint Nurse practitioner note has been reviewed by physician. Signing provider agrees with the documented findings, assessment, and plan of care. Objective - Vital Signs Vital signs: Vital Signs Temp 97.8 F 03/26/23 00:00 Pulse 76 03/26/23 08:32 Resp 16 03/26/23 04:00 BP 164/92 03/26/23 04:00 Pulse Ox 99 03/26/23 04:00 FiO2 Intake & Output 03/25/23 03/26/23 03/26/23 18:59 06:59 18:59 Intake Total 120 10 Balance 120 10 Weight 54.431 kg Intake: IV 10 Invasive Line 1 10 Oral 120 0 Other: Voiding Method Bedside Commode Bedside Commode # Voids 2 3 - Labs CBC & Chem 7: 03/25/23 07:49 03/25/23 07:49
--- NOTE | 2023-03-26 14:11 | P.PN ---
Subjective Progress Note Date: 03/26/23 Principal diagnosis: Acute on chronic hypoxic history failure secondary to acute exacerbation of COPD, possible lung cancer. This is a 72-year-old male patient with a 50+ year smoking history stating he quit in August 2022, ongoing marijuana use, hypertension, hyperlipidemia, coronary disease with previous stent placement, peripheral vascular disease with left fesww-fyr-imco amputation, oxygen dependent chronic obstructive pulmonary disease. He states he had a three-day history of increasing shortness of breath, cough and congestion and while coughing his oxygen saturations dropped into the 70s. No fever chills. No hemoptysis. Chest x-ray revealed no acute pulmonary process. CT angiogram ruled out pulmonary embolism. There is however multiple developing lung nodules and opacities suspicious for metastatic disease. Enlarged mediastinal lymphadenopathy. Emphysematous changes. Thickened stomach wall. Moderate hiatal hernia. Echocardiogram revealed preserved left radicular systolic function with ejection fraction 50-55%. White count 5.8. Hemoglobin 8.8. Platelets 3 L. D-dimer 0.67. Sodium 138. Potassium 4.9. Bicarb 26. BUN 37. Creatinine 0.62. Troponin negative times one. ProBNP 11,500. Influenza screen negative. RSV screen negative. COVID-19 screen negative. Patient is seen today in consultation in the emergency department. He's currently sitting up on the stretcher. Awake and alert in no acute distress. Breathing a bit easier today compared to yesterday. Maintaining O2 saturations in the 90s on 2 L/m per nasal cannula. Afebrile. Hemodynamically stable. Patient was reevaluated today on 03/24/23, feeling better, breathing easier, patient is scheduled to undergo cardiac catheterization this afternoon by cardiology. And he will require cardiac clearance to undergo endoscopy for his evaluation of anemia. He shouldn't is being considered for EGD. I'm seeing the patient for his COPD, and he has multiple pulmonary nodules suspicious for metastatic disease in the lungs. At any rate patient has been a very noncompliant patient, and he never had any outpatient follow-up regarding his pulmonary status, this time he promised that he will after discharge. My plan is to eventually recommended a PET scan and decide whether the patient would benefit from CT-guided needle biopsy or bronchoscopy and biopsy. However this i s all to be done on outpatient basis. Day and pulmonary-mir, the patient is doing well, and he has less shortness of breath, hardly any cough, no wheezing Patient was reevaluated today on 03/25/2023, pulmonary-mir the patient seems to be doing well, he underwent cardiac catheterization and balloon angioplasty of the LAD with reduction of stenosis from 70% to 0% patient is doing well, he is supposed to have EGD, patient needed cardiac clearance for the EGD. Pulmonary- mir, patient was updated again on his pulmonary nodules and I am recommending definite outpatient follow-up on the PET scan on outpatient basis to decide on lung biopsy. In the past the patient failed to have follow-up in the office for his pulmonary issues WBC count today is 5.3 hemoglobin is 9.3. Basic metabolic profile is normal and the area profile is normal . PROcalcitonin level on this admission is 0.06 Patient was reevaluated today on 03/26/2023, doing well, relatively asymptomatic, no cough no wheezing no shortness of breath. Patient is doing great overall. He was supposed to have EGD, however surgery is recommending EGD on outpatient basis mostly because he is on Plavix which cannot be placed on hol d at present. Patient had a recent cardiac catheterization and stent placement. Pulmonary-mir the patient needs definitely outpatient follow-up, he will need a PET scan and possibly a lung biopsy depending on the PET scan findings. We'll clear the patient to be discharged home today if cleared by other consultants Objective - Vital Signs Vital signs: Vital Signs Temp 98 F 03/26/23 08:00 Pulse 72 03/26/23 11:45 Resp 22 03/26/23 08:00 BP 131/70 03/26/23 08:00 Pulse Ox 98 03/26/23 08:00 FiO2 Intake & Output 03/25/23 03/26/23 03/26/23 18:59 06:59 18:59 Intake Total 120 10 120 Balance 120 10 120 Weight 54.431 kg Intake: IV 10 Invasive Line 1 10 Oral 120 0 120 Other: Voiding Method Bedside Commode Bedside Commode # Voids 2 3 1 - Exam Physical Exam: Revealed a 72-year-old white male in no distress Head: Atraumatic, normocephalic. HEENT:[Neck is supple.] [No neck masses.] [No thyromegaly.] [No JVD.] Chest: [Diminished breath sound bilaterally, no crackles or rhonchi or wheezes Cardiac: Normal S1 and S2, no S3 gallop, no murmur. Abdomen: [Soft, nontender, no megaly, no rebound, no guarding, normal bowel sounds.] Extremities: [No clubbing, no edema, no cyanosis.] patient does have left above-knee amputation Neurological Exam: [No focal neurologic deficit.] alert oriented 3 psychiatric: Normal mood affect and normal mental status examination - Labs CBC & Chem 7: 03/25/23 07:49 03/25/23 07:49 Assessment and Plan Assessment: Impression: Acute on chronic hypoxic respiratory failure secondary to acute exacerbation of COPD Chronic hypoxic respiratory failure on home O2 Ex-smoker Multiple pulmonary nodules highly suspicious for metastatic disease Moderate sized hiatal hernia Chronic anemia Coronary artery disease and previous stent placement, patient underwent balloon angioplasty of LAD on this admission/successful Benign essential hypertension Peripheral vessel occlusive disease and previous left above-knee amputation Recommendation: Continue bronchodilators including DuoNeb and Symbicort as well as prednisone taper but this is to be done on outpatient basis Will clear the patient for discharge if cleared by other consultants Patient will definitely need outpatient follow-up with me regarding his pulmonary nodules and his COPD Patient will definitely need a PET scan on outpatient basis We'll continue to follow Time with Patient: Less than 30
== END 2023-03-26 13:22 | disposition home health service (06) | DRG 981 ==
LOC: EC 03:10 → 3SCARD 07:49 → OBSVTOIN 07:49 → 3SCARD 11:13
PROVIDERS: ADMIT Internal Medicine; ATTEND Internal Medicine
PROC: 02703ZZ Dilation of Coronary Artery, One Artery, Percutaneous Approach (ICD-10-PCS; principal; 2023-03-24 13:20)
PROC: 4A033BC Measurement of Arterial Pressure, Coronary, Percutaneous Approach (ICD-10-PCS; principal; 2023-03-24 13:20)
PROC: B240ZZ3 Ultrasonography of Single Coronary Artery, Intravascular (ICD-10-PCS; principal; 2023-03-24 13:20)
PROC: B2111ZZ Fluoroscopy of Multiple Coronary Arteries using Low Osmolar Contrast (ICD-10-PCS; principal; 2023-03-24 13:20)
DX: J44.1 Chronic obstructive pulmonary disease with (acute) exacerbation (principal); J96.21 Acute and chronic respiratory failure with hypoxia; C78.01 Secondary malignant neoplasm of right lung; T82.855A Stenosis of coronary artery stent, initial encounter; I27.20 Pulmonary hypertension, unspecified; E11.51 Type 2 diabetes mellitus with diabetic peripheral angiopathy without gangrene; I11.0 Hypertensive heart disease with heart failure; Z89.612 Acquired absence of left leg above knee; I50.9 Heart failure, unspecified; D64.9 Anemia, unspecified; I07.1 Rheumatic tricuspid insufficiency; F32.A Depression, unspecified; I25.2 Old myocardial infarction; E78.5 Hyperlipidemia, unspecified; I25.10 Atherosclerotic heart disease of native coronary artery without angina pectoris; K44.9 Diaphragmatic hernia without obstruction or gangrene; G43.909 Migraine, unspecified, not intractable, without status migrainosus; G89.29 Other chronic pain; M54.9 Dorsalgia, unspecified; K59.00 Constipation, unspecified; M19.90 Unspecified osteoarthritis, unspecified site; K31.89 Other diseases of stomach and duodenum; R59.0 Localized enlarged lymph nodes; Z91.199 Patient's noncompliance with other medical treatment and regimen due to unspecified reason; Z99.81 Dependence on supplemental oxygen; Z79.82 Long term (current) use of aspirin; Z79.51 Long term (current) use of inhaled steroids; Z79.818 Long term (current) use of other agents affecting estrogen receptors and estrogen levels; Z79.899 Other long term (current) drug therapy; Z87.891 Personal history of nicotine dependence; Z95.5 Presence of coronary angioplasty implant and graft; Z86.19 Personal history of other infectious and parasitic diseases; Z86.14 Personal history of Methicillin resistant Staphylococcus aureus infection; Z88.1 Allergy status to other antibiotic agents
CPT/HCPCS: 36415; 71046; 71275; 76937; 80053; 82607; 82746; 83540; 83550; 83605; 83735; 83880; 84145; 84484; 85025; 85027; 85379; 85610; 85730; 87636; 92920; 92978; 93005; 93306; 93454; 93799; 94640; 94760; 99285

== ENCOUNTER 2023-04-17 01:24 | Inpatient (IN) | payer MEDICARE ==
[2023-04-17] MEDS ORDERED: SODIUM CHLORIDE 0.9% 500 ML 500 ML IV STA (01:32)
[2023-04-17] MEDS ORDERED: SODIUM CHLORIDE 0.9% 1,000 ML IV STA (01:32)
[2023-04-17] MEDS ORDERED: IPRATROPIUM-ALBUTEROL 3 ML NEB INHALATION STA ×2 (01:32→03:09)
[2023-04-17] MEDS ORDERED: MORPHINE SULFATE 2 MG/ML SYRINGE IVP STA (01:33)
[2023-04-17 01:46] LABS: Anisocytosis Slight; Basophils % (A) 0 %; Eosinophils # (A) 0.1 k/uL (0-0.7); Eosinophils % (A) 0 %; HCT 32.5 % (39.0-53.0); HGB 9.6 gm/dL (13.0-17.5); Hypochromasia Marked; Lymphocytes # (A) 0.3 k/uL (1.0-4.8); Lymphocytes % (A) 2 %; MCH 24.6 pg (25.0-35.0); MCHC 29.5 g/dL (31.0-37.0); MCV 83.5 fL (80.0-100.0); Mean Platelet Volume 7.6; Monocytes # (A) 0.5 k/uL (0-1.0); Monocytes % (A) 4 %; Neutrophils # (A) 10.8 k/uL (1.3-7.7); Neutrophils % (A) 92 %; Platelet Count 426 k/uL (150-450); Poikilocytosis Slight; RBC 3.89 m/uL (4.30-5.90); RDW 16.1 % (11.5-15.5); WBC 11.7 k/uL (3.8-10.6)
--- NOTE | 2023-04-17 02:05 | ED ---
SOB HPI - General Chief Complaint: Shortness of Breath Stated Complaint: Difficulty Breathing Time Seen by Provider: 04/17/23 01:31 Source: EMS, RN notes reviewed, old records reviewed Mode of arrival: EMS Limitations: no limitations - History of Present Illness Initial Comments: This is a 72-year-old male to the emergency department today. Patient presents today for evaluation of severe shortness of breath shortness of breath severe placed on BiPAP on arrival, she does not have chest pain. unable to provide history aside from severe shortness of breath and patient does appear to be having a fever currently. He was sweaty and warm. Patient does have history of significant COPD MD Complaint: shortness of breath, cough, chest pain, pain with inspiration -: days(s) Severity: severe Severity scale (1-10): 10 Quality: aching Consistency: constant Improves With: nothing Worsens With: nothing Context: recent URI Associated Symptoms: denies other symptoms Treatments Prior to Arrival: oxygen, bronchodilator, NIPPV - Related Data Home Medications Medication Instructions Recorded Confirmed Aspirin 81 mg PO DAILY 01/14/14 04/17/23 DULoxetine HCL [Cymbalta] 60 mg PO DAILY 01/14/14 04/17/23 lisinopriL [Prinivil] 20 mg PO DAILY 01/14/14 04/17/23 Pantoprazole Sodium [Protonix] 40 mg PO DAILY 06/13/18 04/17/23 amLODIPine [Norvasc] 5 mg PO DAILY 06/13/18 04/17/23 Albuterol Sulfate [Proair Hfa] 2 puff INHALATION RT-QID PRN 08/29/21 04/17/23 Tamsulosin [Flomax] 0.4 mg PO DAILY 08/29/21 04/17/23 HYDROcodone/APAP 10-325MG [[place] 1 tab PO Q6HR PRN 07/12/22 04/17/23 10-325] Primidone [Mysoline] 25 mg PO HS 07/12/22 04/17/23 Loratadine [Claritin] 10 mg PO DAILY 08/13/22 04/17/23 Nitroglycerin Sl Tabs [Nitrostat] 0.4 mg SL Q5M PRN 08/13/22 04/17/23 Albuterol Nebulized [Ventolin 2.5 mg INHALATION RT-Q6H PRN 03/23/23 04/17/23 Nebulized] Escitalopram [Lexapro] 20 mg PO DAILY 03/23/23 04/17/23 Fluticasone/Umeclidin/Vilanter 1 puff INHALATION RT-DAILY 03/23/23 04/17/23 [Trelegy Ellipta 200-62.5-25] Gabapentin 600 mg PO TID 03/23/23 04/17/23 Megestrol Acetate 400 mg PO DAILY 03/23/23 04/17/23 traZODone HCL [Desyrel] 50 mg PO HS 04/17/23 04/17/23 Previous Rx's Medication Instructions Recorded Atorvastatin [Lipitor] 80 mg PO DAILY #30 tab 07/20/20 Metoprolol Succinate (ER) [Toprol 25 mg PO DAILY #30 tab.er.24h 07/20/20 XL] Clopidogrel [Plavix] 75 mg PO DAILY 30 Days #30 tab 03/26/23 Budesonide-Formot 160-4.5 Mcg 2 puff INHALATION RT-BID 30 Days 04/21/23 [Symbicort 160-4.5 Mcg Inhaler] #1 each Ipratropium-Albuterol Nebulize 3 ml INHALATION RT-QID 30 Days 04/21/23 [Duoneb 0.5 mg-3 mg/3 ml Soln] #120 each Lidocaine 4% Patch 1 patch TOPICAL DAILY@1999 30 Days 04/21/23 #30 patch cefUROXime axetiL [Cefuroxime] 500 mg PO BID 7 Days #14 tab 04/21/23 predniSONE 10 mg PO DAILY 12 Days #30 tab 04/21/23 Allergies Allergy/AdvReac Type Severity Reaction Status Date / Time azithromycin [From Zithromax] Allergy Rash/Hives Verified 04/17/23 11:51 Review of Systems ROS Statement: Those systems with pertinent positive or pertinent negative responses have been documented in the HPI. ROS Other: All systems not noted in ROS Statement are negative. 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 knee wound + FOR MRSA. History of high left above-knee amputation done approximately 2009. Last Myocardial Infarction Date:: 2003 History of Any Multi-Drug Resistant Organisms: Acinetobacter (MDRO), MRSA Date of last positivie culture/infection: 04/02/16 MDRO Source:: LT KNEE WOUND Past Surgical History: Heart Catheterization With Stent, Orthopedic Surgery Additional Past Surgical History / Comment(s): STENTS TO LEFT GROIN, LEFT ABOVE THE KNEE AMPUTATION, unsuccessful revascularization left leg, shoulder surgery, surgical debridement of necrotic tissue left scrotal area, LT AKA 03/03/16. left testicle removed. heart stent x1 broken left hip Past Anesthesia/Blood Transfusion Reactions: No Reported Reaction Date of Last Stent Placement:: 2006 Past Psychological History: Depression Smoking Status: Former smoker Past Alcohol Use History: None Reported Past Drug Use History: Marijuana - Past Family History Sister(s) History Unknown: Yes Family Medical History: Cancer Additional Family Medical History / Comment(s): double mastectomy, still surviving Father History Unknown: Yes Family Medical History: No Reported History Mother History Unknown: Yes Family Medical History: No Reported History Additional Family Medical History / Comment(s): hypoglycemia General Exam Limitations: no limitations General appearance: alert, in no apparent distress, anxious Head exam: Present: atraumatic, normocephalic, normal inspection Eye exam: Present: normal appearance, PERRL, EOMI. Absent: scleral icterus, conjunctival injection, periorbital swelling ENT exam: Present: normal exam, mucous membranes moist Neck exam: Present: normal inspection. Absent: tenderness, meningismus, lymphadenopathy Respiratory exam: Present: respiratory distress, wheezes, accessory muscle use, decreased breath sounds, prolonged expiratory. Absent: rales, rhonchi, stridor Cardiovascular Exam: Present: normal rhythm, tachycardia, normal heart sounds. Absent: systolic murmur, diastolic murmur, rubs, gallop, clicks GI/Abdominal exam: Present: soft, normal bowel sounds. Absent: distended, tenderness, guarding, rebound, rigid Extremities exam: Present: normal inspection, full ROM, normal capillary refill. Absent: tenderness, pedal edema, joint swelling, calf tenderness Back exam: Present: normal inspection Neurological exam: Present: alert, oriented X3, CN II-XII intact Psychiatric exam: Present: normal affect, normal mood Skin exam: Present: warm, dry, intact, normal color. Absent: rash Course Vital Signs 04/17/23 04/17/23 04/17/23 01:25 01:38 02:12 Temperature 100.4 F H Pulse Rate 95 89 90 Pulse Rate [ Pulse Oximetery ] Respiratory 40 H Rate Blood Pressure 146/67 Blood Pressure [Left Arm] Blood Pressure [Right Arm] O2 Sat by Pulse 100 Oximetry Fraction of 40 Inspired Oxygen (FIO2) 04/17/23 04/17/23 04/17/23 03:34 04:38 06:00 Temperature Pulse Rate 89 97 Pulse Rate [ Pulse Oximetery ] Respiratory 18 20 Rate Blood Pressure 144/67 144/83 Blood Pressure [Left Arm] Blood Pressure [Right Arm] O2 Sat by Pulse 97 99 Oximetry Fraction of 40 Inspired Oxygen (FIO2) 04/17/23 04/17/23 04/17/23 07:34 07:47 08:50 Temperature Pulse Rate 84 85 86 Pulse Rate [ Pulse Oximetery ] Respiratory 16 Rate Blood Pressure 150/81 Blood Pressure [Left Arm] Blood Pressure [Right Arm] O2 Sat by Pulse 95 97 Oximetry Fraction of Inspired Oxygen (FIO2) 04/17/23 04/17/23 04/17/23 11:23 11:34 12:00 Temperature Pulse Rate 80 84 86 Pulse Rate [ Pulse Oximetery ] Respiratory 18 Rate Blood Pressure 142/72 Blood Pressure [Left Arm] Blood Pressure [Right Arm] O2 Sat by Pulse 97 Oximetry Fraction of Inspired Oxygen (FIO2) 04/17/23 04/17/23 04/17/23 13:49 15:11 15:20 Temperature Pulse Rate 87 77 80 Pulse Rate [ Pulse Oximetery ] Respiratory 18 Rate Blood Pressure 149/69 Blood Pressure [Left Arm] Blood Pressure [Right Arm] O2 Sat by Pulse 100 Oximetry Fraction of Inspired Oxygen (FIO2) 04/17/23 04/17/23 04/17/23 16:00 16:43 19:10 Temperature 98.5 F Pulse Rate Pulse Rate [ 82 82 86 Pulse Oximetery ] Respiratory 18 18 18 Rate Blood Pressure Blood Pressure 154/79 154/79 [Left Arm] Blood Pressure 140/89 [Right Arm] O2 Sat by Pulse 95 95 96 Oximetry Fraction of Inspired Oxygen (FIO2) 04/17/23 04/17/23 04/18/23 19:53 20:01 00:10 Temperature 98.0 F Pulse Rate 78 80 Pulse Rate [ 88 Pulse Oximetery ] Respiratory 16 Rate Blood Pressure Blood Pressure [Left Arm] Blood Pressure 145/70 [Right Arm] O2 Sat by Pulse 94 L Oximetry Fraction of Inspired Oxygen (FIO2) 04/18/23 04/18/23 04/18/23 04:25 08:00 08:40 Temperature 97.0 F L Pulse Rate 79 Pulse Rate [ 93 89 Pulse Oximetery ] Respiratory 18 18 Rate Blood Pressure Blood Pressure [Left Arm] Blood Pressure 159/77 158/95 [Right Arm] O2 Sat by Pulse 95 98 Oximetry Fraction of Inspired Oxygen (FIO2) - Reevaluation(s) Reevaluation #1: 04/17/23 05:25 Medical record is reviewed Reevaluation #2: 04/17/23 05:25 Patient symptoms are unchanged Reevaluation #3: 04/17/23 05:26 Patient informed results and questions answered Reevaluation #4: 04/17/23 05:26 Was pt. sent in by a medical professional or institution (, PA, RESIDENCE SUPERVISOR, urgent care, hospital, or fpc...) When possible be specific @ -no Did you speak to anyone other than the patient for history (EMS, parent, family, police, friend...)? What history was obtained from this source @ -no Did you review nursing and triage notes (agree or disagree)? Why? @ -agree Are old charts reviewed (outside hosp., previous admission, EMS record, old EKG, old radiological studies, urgent care reports/EKG's, fpc records)? Report findings @ -yes Differential Diagnosis (chest pain, altered mental status, abdominal pain women, abdominal pain men, vaginal bleeding, weakness, fever, dyspnea, syncope, headache, dizziness, GI bleed, back pain, seizure, CVA, palpatations, mental health, musculoskeletal)? @ -prior EKG interpreted by me (3pts min.). @ -yes X-rays interpreted by me (1pt min.). @ -yes positive for fever CT interpreted by me (1pt min.). @ -no U/S interpreted by me (1pt. min.). @ -no What testing was considered but not performed or refused? (CT, X-rays, U/S, labs)? Why? @ -none What meds were considered but not given or refused? Why? @ -none Did you discuss the management of the patient with other professionals (professionals i.e. , PA, RESIDENCE SUPERVISOR, lab, RT, psych nurse, social media assistant, manager client service, teacher, field artillery officer, caser up)? Give summary @ -no Was smoking cessation discussed for >3mins.? @ -no Was critical care preformed (if so, how long)? @ -yes31 Were there social determinants of health that impacted care today? How? (Homelessness, low income, unemployed, alcoholism, drug addiction, transportation, low edu. Level, literacy, decrease access to med. care, shelter, rehab)? @ -none Was there de-escalation of care discussed even if they declined (Discuss DNR or withdrawal of care, Hospice)? DNR status @ -no What co-morbidities impacted this encounter? (DM, HTN, Smoking, COPD, CAD, Cancer, CVA, ARF, Chemo, Hep., AIDS, mental health diagnosis, sleep apnea, morbid obesity)? @ -none Was patient admitted / discharged? Hospital course, mention meds given and route, prescriptions, significant lab abnormalities, going to OR and other pertinent info. @ - 72 male in severe respiratory distress secondary to COPD hypoxia and pneumonia. Patient will be admitted for further evaluation management Admitted Undiagnosed new problem with uncertain prognosis? @ -no Drug Therapy requiring intensive monitoring for toxicity (Heparin, Nitro, Insulin, Cardizem)? @ -no Were any procedures done? @ -no Diagnosis/symptom? @ -COPD with pneumonia and hypoxia Acute, or Chronic, or Acute on Chronic? @ -Acute Uncomplicated (without systemic symptoms) or Complicated (systemic symptoms)? @ -Complicated Side effects of treatment? @ -no Exacerbation, Progression, or Severe Exacerbation? @ -exacerbation Poses a threat to life or bodily function? How? (Chest pain, [place], [place], pneumonia, PE, COPD, DKA, ARF, appy, cholecystitis, CVA, Diverticulitis, Homicidal, Suicidal, threat to staff... and all critical care pts) @ -yes significant for respiratory distress, Reevaluation #5: 04/17/23 05:26 Differential Dyspnea: Coronary syndrome, arrhythmia, tamponade, asthma, COPD, pulmonary embolism, pneumonia, pneumothorax, pulmonary effusion, anaphylaxis, diabetic ketoacidosis, flailed chest, pulmonary contusion, diaphragmatic rupture, anemia, neuromuscular, this is not meant to be an all-inclusive list. Differential Fever: Pneumonia, viral URI, endocarditis, myocarditis, pericarditis, otitis, sinusitis, peritonsillar Abscess, retropharyngeal Abscess, epiglottitis, peritonitis, appendicitis, Erika cystitis, diverticulitis, hepatitis, colitis, UTI, PID, TOA, pyelonephritis, prostatitis, epididymitis, meningitis, encephalitis, pulmonary embolism, CVA, thyroid storm, pancreatitis, adrenal crisis, cavernous sinus thrombosis, this is not meant to be an all-inclusive list. - Consultations Consultation #1: spoke w Dr Barrientos who agrees to admit the patient Medical Decision Making - Medical Decision Making 72 male in severe respiratory distress secondary to COPD hypoxia and pneumonia. Patient will be admitted for further evaluation management - Lab Data Result diagrams: 04/21/23 07:58 04/21/23 07:58 Lab Results 04/17/23 04/17/23 04/17/23 Range/Units 01:36 01:36 01:36 WBC 11.7 H (3.8-10.6) k/uL RBC 3.89 L (4.30-5.90) m/uL Hgb 9.6 L (13.0-17.5) gm/dL Hct 32.5 L (39.0-53.0) % MCV 83.5 (80.0-100.0) fL MCH 24.6 L (25.0-35.0) pg MCHC 29.5 L (31.0-37.0) g/dL RDW 16.1 H (11.5-15.5) % Plt Count 426 (150-450) k/uL MPV 7.6 Neutrophils % 92 % Lymphocytes % 2 % Monocytes % 4 % Eosinophils % 0 % Basophils % 0 % Neutrophils # 10.8 H (1.3-7.7) k/uL Lymphocytes # 0.3 L (1.0-4.8) k/uL Monocytes # 0.5 (0-1.0) k/uL Eosinophils # 0.1 (0-0.7) k/uL Basophils # 0.0 (0-0.2) k/uL Hypochromasia Marked Poikilocytosis Slight Anisocytosis Slight PT 10.7 (10.0-12.5) sec INR 1.0 (<1.2) APTT 24.3 (22.0-30.0) sec Sodium 135 L (137-145) mmol/L Potassium 5.5 H (3.5-5.1) mmol/L Chloride 103 (98-107) mmol/L Carbon Dioxide 24 (22-30) mmol/L Anion Gap 8 mmol/L BUN 45 H (9-20) mg/dL Creatinine 0.81 (0.66-1.25) mg/dL Est GFR (CKD-EPI)AfAm >90 (>60 ml/min/1.73 sqM) Est GFR (CKD-EPI)NonAf 88 (>60 ml/min/1.73 sqM) Glucose 126 H (74-99) mg/dL Plasma Lactic Acid Mike (0.7-2.0) mmol/L Calcium 8.6 (8.4-10.2) mg/dL Magnesium 2.0 (1.6-2.3) mg/dL Total Bilirubin 0.6 (0.2-1.3) mg/dL AST 30 (17-59) U/L ALT 21 (4-49) U/L Alkaline Phosphatase 86 (38-126) U/L Troponin I (0.000-0.034) ng/mL NT-Pro-B Natriuret Pep 2490 pg/mL Total Protein 6.4 (6.3-8.2) g/dL Albumin 3.6 (3.5-5.0) g/dL Influenza Type A (PCR) (Not Detectd) Influenza Type B (PCR) (Not Detectd) RSV (PCR) (Not Detectd) SARS-CoV-2 (PCR) (Not Detectd) 04/17/23 04/17/23 04/17/23 Range/Units 01:36 01:36 01:36 WBC (3.8-10.6) k/uL RBC (4.30-5.90) m/uL Hgb (13.0-17.5) gm/dL Hct (39.0-53.0) % MCV (80.0-100.0) fL MCH (25.0-35.0) pg MCHC (31.0-37.0) g/dL RDW (11.5-15.5) % Plt Count (150-450) k/uL MPV Neutrophils % % Lymphocytes % % Monocytes % % Eosinophils % % Basophils % % Neutrophils # (1.3-7.7) k/uL Lymphocytes # (1.0-4.8) k/uL Monocytes # (0-1.0) k/uL Eosinophils # (0-0.7) k/uL Basophils # (0-0.2) k/uL Hypochromasia Poikilocytosis Anisocytosis PT (10.0-12.5) sec INR (<1.2) APTT (22.0-30.0) sec Sodium (137-145) mmol/L Potassium (3.5-5.1) mmol/L Chloride (98-107) mmol/L Carbon Dioxide (22-30) mmol/L Anion Gap mmol/L BUN (9-20) mg/dL Creatinine (0.66-1.25) mg/dL Est GFR (CKD-EPI)AfAm (>60 ml/min/1.73 sqM) Est GFR (CKD-EPI)NonAf (>60 ml/min/1.73 sqM) Glucose (74-99) mg/dL Plasma Lactic Acid Mike 1.4 (0.7-2.0) mmol/L Calcium (8.4-10.2) mg/dL Magnesium (1.6-2.3) mg/dL Total Bilirubin (0.2-1.3) mg/dL AST (17-59) U/L ALT (4-49) U/L Alkaline Phosphatase (38-126) U/L Troponin I 0.012 (0.000-0.034) ng/mL NT-Pro-B Natriuret Pep pg/mL Total Protein (6.3-8.2) g/dL Albumin (3.5-5.0) g/dL Influenza Type A (PCR) Not Detected (Not Detectd) Influenza Type B (PCR) Not Detected (Not Detectd) RSV (PCR) Not Detected (Not Detectd) SARS-CoV-2 (PCR) Not Detected (Not Detectd) - EKG Data -: EKG Interpreted by Me (EKG is sinus 93 NV 161 QRS 97 QTc 415) - Radiology Data Radiology results: report reviewed (X-rays positive for pneumonia), image reviewed Critical Care Time Critical Care Time: Yes Total Critical Care Time: 31 Disposition Clinical Impression: Altered mental status, COPD (chronic obstructive pulmonary disease), Pneumonia, Weakness, Acute hypercapnic respiratory failure, Acute respiratory failure with hypoxia, Hypoxia, COPD exacerbation Disposition: ADMITTED IP TO THIS HOSP Condition: Serious Is patient prescribed a controlled substance at d/c from ED?: No Time of Disposition: 03:00
[2023-04-17 02:15] LABS: Partial Thromboplastin Time 24.3 sec (22.0-30.0); Prothrombin Time 10.7 sec (10.0-12.5)
[2023-04-17 02:17] LABS: ALT 21 U/L (4-49); AST 30 U/L (17-59); African American GFR (CKD) >90 (>60 ml/min/1.73 sqM); Albumin 3.6 g/dL (3.5-5.0); Alkaline Phosphatase 86 U/L (38-126); Anion Gap 8 mmol/L; Blood Urea Nitrogen 45 mg/dL (9-20); Calcium 8.6 mg/dL (8.4-10.2); Carbon Dioxide 24 mmol/L (22-30); Chloride 103 mmol/L (98-107); Glucose 126 mg/dL (74-99); Non-African American GFR(CKD) 88 (>60 ml/min/1.73 sqM); Potassium 5.5 mmol/L (3.5-5.1); Sodium 135 mmol/L (137-145); Total Bilirubin 0.6 mg/dL (0.2-1.3); Total Protein 6.4 g/dL (6.3-8.2)
[2023-04-17 02:23] LABS: NT-Pro-B-Type Natriuretic Pept 2490 pg/mL
[2023-04-17] MEDS ORDERED: NALOXONE 0.4 MG/ML 1 ML VIAL IVP PRN (03:09)
[2023-04-17] MEDS ORDERED: PNEUMONIA PROTOCOL UTILIZED 1 EACH MISC PO PRN (03:09)
[2023-04-17] MEDS ORDERED: ACETAMINOPHEN TAB 325 MG TAB PO PRN (03:09)
[2023-04-17] MEDS ORDERED: LEVOFLOXACIN 750MG-D5W PMX 750 MG in DEXTROSE/WATER 1 150ML.BAG IVPB STA (03:16)
[2023-04-17] MEDS: LEVOFLOXACIN 750MG-D5W PMX 750 MG in DEXTROSE/WATER 1 150ML.BAG IVPB SCH (04:39)
--- NOTE | 2023-04-17 05:59 | XR ---
EXAMINATION TYPE: XR chest 1V portable DATE OF EXAM: 04/17/2023 COMPARISON: Chest x-ray April 02, [address] CT March 23, 2023 HISTORY: Shortness of breath TECHNIQUE: Single frontal view of the chest is obtained. FINDINGS: Background chronic emphysematous and chronic parenchymal fibrotic changes redemonstrated. There is new left basilar opacity. The cardiac silhouette size is stable and upper limits of normal. Degenerative change bilateral glenohumeral joints. IMPRESSION: Chronic changes with new left basilar acute infiltrate and/or atelectasis.
[2023-04-17] MEDS: methylPREDNISolone SOD SUCCI 125 MG/2 ML VIAL IV SCH ×3 (06:07→18:38)
[2023-04-17] MEDS: ALBUTEROL NEBULIZED 2.5 MG/3 ML INHALATION SCH ×3 (07:33→15:10)
[2023-04-17] MEDS: PIPERACILLIN-TAZOBACTAM 3.375 GM in SODIUM CHLORIDE 0.9% 100 ML IVPB SCH ×2 (11:18→16:27)
[2023-04-17] MEDS: SYMBICORT 160-4.5 MCG INHALER INHALATION SCH ×2 (11:22→19:51)
[2023-04-17] MEDS ORDERED: ALBUTEROL HFA INHALER INHALATION PRN (12:53)
[2023-04-17] MEDS ORDERED: NITROGLYCERIN SL TABS 0.4 MG TAB SUBLINGUAL PRN (12:53)
[2023-04-17] MEDS ORDERED: ALBUTEROL NEBULIZED 2.5 MG/3 ML INHALATION PRN (12:53)
--- NOTE | 2023-04-17 12:57 | P.HPIM ---
History of Present Illness H&P Date: 04/17/23 Baldev Joyce, is a 72-year-old male who presented to [facility] emergency room with a chief complaint of worsening shortness of breath and decreased O2 sat duration down to 70% He was evaluated in the emergency room vital examination on presentation revealed a temperature of 100.4 pulse 95 respiration 14 blood pressure 146/67 pulse ox 100% on BiPAP Laboratory data revealed a white blood count of 11.7 hemoglobin 9.6 platelet count 426 sodium 135 potassium 5.5 chloride 103 BUN 45 creatinine 0.81 Testing in the emergency room revealed chest x-ray done in the emergency room revealed acute left basilar infiltrate. Patient was recently admitted to [facility] about 3 weeks ago for acute exacerbation of COPD, at that time he had a CT angiogram of the chest that revealed evidence of suspicious pulmonary nodules, and evidence of gastric wall thickening. Patient was supposed to follow-up with Dr. Guerin and Dr. Luong as outpatient for further evaluation however he returned to emergency room with worsening shortness of breath. Patient was admitted to medical floor for further evaluation and treatment. Consultation for pulmonary and infectious disease were initiated. Past Medical History Past Medical History: COPD, Hyperlipidemia, Hypertension, Myocardial Infarction ([place]), Osteoarthritis (OA), Vascular Disorder Additional Past Medical History / Comment(s): hx migraines, hx shingles, 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 knee wound + FOR MRSA. History of high left above-knee amputation done approximately 2009. Last Myocardial Infarction Date:: 2003 History of Any Multi-Drug Resistant Organisms: Acinetobacter (MDRO), MRSA Date of last positivie culture/infection: 04/02/16 MDRO Source:: LT KNEE WOUND Past Surgical History: Heart Catheterization With Stent, Orthopedic Surgery Additional Past Surgical History / Comment(s): STENTS TO LEFT GROIN, LEFT ABOVE THE KNEE AMPUTATION, unsuccessful revascularization left leg, shoulder surgery, surgical debridement of necrotic tissue left scrotal area, LT AKA 03/03/16. left testicle removed. heart stent x1 broken left hip Past Anesthesia/Blood Transfusion Reactions: No Reported Reaction Date of Last Stent Placement:: 2006 Past Psychological History: Depression Smoking Status: Former smoker Past Alcohol Use History: None Reported Past Drug Use History: Marijuana - Past Family History Sister(s) History Unknown: Yes Family Medical History: Cancer Additional Family Medical History / Comment(s): double mastectomy, still surviving Father History Unknown: Yes Family Medical History: No Reported History Mother History Unknown: Yes Family Medical History: No Reported History Additional Family Medical History / Comment(s): hypoglycemia Medications and Allergies Home Medications Medication Instructions Recorded Confirmed Type Aspirin 81 mg PO DAILY 01/14/14 04/17/23 History DULoxetine HCL [Cymbalta] 60 mg PO DAILY 01/14/14 04/17/23 History lisinopriL [Prinivil] 20 mg PO DAILY 01/14/14 04/17/23 History Pantoprazole Sodium [Protonix] 40 mg PO DAILY 06/13/18 04/17/23 History amLODIPine [Norvasc] 5 mg PO DAILY 06/13/18 04/17/23 History Atorvastatin [Lipitor] 80 mg PO DAILY #30 tab 07/20/20 04/17/23 Rx Metoprolol Succinate (ER) [Toprol 25 mg PO DAILY #30 tab.er.24h 07/20/20 04/17/23 Rx XL] Albuterol Sulfate [Proair Hfa] 2 puff INHALATION RT-QID PRN 08/29/21 04/17/23 History Tamsulosin [Flomax] 0.4 mg PO DAILY 08/29/21 04/17/23 History HYDROcodone/APAP 10-325MG [[place] 1 tab PO Q6HR PRN 07/12/22 04/17/23 History 10-325] Primidone [Mysoline] 25 mg PO HS 07/12/22 04/17/23 History Loratadine [Claritin] 10 mg PO DAILY 08/13/22 04/17/23 History Nitroglycerin Sl Tabs [Nitrostat] 0.4 mg SL Q5M PRN 08/13/22 04/17/23 History Albuterol Nebulized [Ventolin 2.5 mg INHALATION RT-Q6H PRN 03/23/23 04/17/23 History Nebulized] Clotrimazole/Betameth Cream 1 applic TOPICAL DAILY PRN 03/23/23 04/17/23 History [Lotrisone] Escitalopram [Lexapro] 20 mg PO DAILY 03/23/23 04/17/23 History Fluticasone/Umeclidin/Vilanter 1 puff INHALATION RT-DAILY 03/23/23 04/17/23 History [Trelegy Ellipta 200-62.5-25] Gabapentin 600 mg PO TID 03/23/23 04/17/23 History Megestrol Acetate 400 mg PO DAILY 03/23/23 04/17/23 History Clopidogrel [Plavix] 75 mg PO DAILY 30 Days #30 tab 03/26/23 04/17/23 Rx Cephalexin [Keflex] 500 mg PO QID 04/17/23 04/17/23 History traZODone HCL [Desyrel] 50 mg PO HS 04/17/23 04/17/23 History Allergies Allergy/AdvReac Type Severity Reaction Status Date / Time azithromycin [From Zithromax] Allergy Rash/Hives Verified 04/17/23 11:51 Physical Exam Vitals: Vital Signs Temp Pulse Resp BP Pulse Ox FiO2 04/17/23 08:50 86 16 150/81 97 04/17/23 07:47 85 04/17/23 07:34 84 95 04/17/23 06:00 97 20 144/83 99 04/17/23 04:38 40 04/17/23 03:34 89 18 144/67 97 04/17/23 02:12 90 04/17/23 01:38 89 40 04/17/23 01:25 100.4 F H 95 40 H 146/67 100 Intake and Output 04/16/23 04/17/23 04/17/23 22:59 06:59 14:59 Other: Weight 68.039 kg In general patient is alert and oriented x 3 in no distress HEENT head normocephalic and atraumatic Neck is supple no JVD no goiter no lymphadenopathy no carotid bruit Chest examination reveals a crackles in bilateral bases no wheezing Cardiac exam reveals regular heart sounds S1 and S2 no gallops no murmurs Abdomen is soft nontender no organomegaly with normal bowel sounds Extremity exam reveals no edema no cyanosis or clubbing Neurological examination reveals no gross focal deficits Results CBC & Chem 7: 04/17/23 01:36 04/17/23 01:36 Labs: Abnormal Lab Results - Last 24 Hours (Table) 04/17/23 04/17/23 Range/Units 01:36 01:36 WBC 11.7 H (3.8-10.6) k/uL RBC 3.89 L (4.30-5.90) m/uL Hgb 9.6 L (13.0-17.5) gm/dL Hct 32.5 L (39.0-53.0) % MCH 24.6 L (25.0-35.0) pg MCHC 29.5 L (31.0-37.0) g/dL RDW 16.1 H (11.5-15.5) % Neutrophils # 10.8 H (1.3-7.7) k/uL Lymphocytes # 0.3 L (1.0-4.8) k/uL Sodium 135 L (137-145) mmol/L Potassium 5.5 H (3.5-5.1) mmol/L BUN 45 H (9-20) mg/dL Glucose 126 H (74-99) mg/dL Assessment and Plan Plan: Left lower lobe pneumonia Acute hypoxic respiratory failure, requiring BiPAP use, on top of chronic hypoxic respiratory failure requiring home oxygen use. Acute exacerbation of chronic obstructive pulmonary disease Underlying history of coronary artery disease Underlying history of peripheral vascular disease Abnormal CT angiogram of the chest done last visit 3 weeks ago, revealing suspicious pulmonary nodules and gastric wall thickening Underlying history of hypertension Underlying history of hyperlipidemia Underlying history of diabetes mellitus Continued tobacco abuse At this time patient is admitted to telemetry floor Home medications reviewed and reordered Patient was started on IV Levaquin in the emergency room Pulmonary and infectious disease consultation requested For DVT prophylaxis subcu Lovenox For GI prophylaxis continue Protonix Patient was counseled regarding smoking cessation Will follow closely prognosis is guarded.
[2023-04-17] MEDS: HYDROcodone/APAP 10-325MG 1 EACH TAB PO PRN (13:51)
[2023-04-17] MEDS: amLODIPine 5 MG TAB PO SCH (13:51)
--- NOTE | 2023-04-17 14:40 | P.CNPUL ---
History of Present Illness Consult date: 04/17/23 Reason for consult: COPD, other (Pulmonary nodule) Chief complaint: Shortness of breath History of present illness: This is a 72-year-old white male familiar to my service, known to have history of severe COPD, chronic hypoxic respiratory failure, history of pulmonary nodules but he never had follow-up on outpatient basis regarding his pulmonary nodules, history of abnormal gastric wall, and he was supposed to follow-up with Dr. bronson for EGD and he never did. At any rate the patient is here today with mostly symptoms of shortness of breath and could not get his oxygen about 70%. Patient is normally maintained on 2.5 liters at home for his underlying COPD. Patient describes intermittent cough, wheezing, shortness of breath. Recent CT of the chest showed multiple pulmonary nodules questionable metastatic disease, chest x-ray on this admission showed chronic changes with a new left basilar infiltrate/atelectasis. I'm also suspecting some new change noted in the right lower lobe area with interstitial infiltrate noted. WBC count was a bit elevated at 11.7 hemoglobin 9.6. Basic metabolic profile is normal except for potassium of 5.5. Profile is relatively normal. Pro-calcitonin level is 1.57. Patient tested negative for influenza A, influenza B, RSV, and COVID-19. Review of Systems CONSTITUTIONAL: Denies any recent significant weight loss or weight gain. EYES: Denies change in vision. EARS, NOSE, MOUTH, THROAT: Denies headaches, denies sore throat. CARDIOVASCULAR: Denies chest pain, palpitations or syncopal episodes. RESPIRATORY: As noted in HPI mostly symptoms of shortness of breath cough and wheezing GASTROINTESTINAL: Denies change in appetite, denies abdominal pain GENITOURINARY: Denies hematuria, denies infections. MUSKULOSKELETAL: Denies pain, denies swelling. INTEGUMENTARY: Denies rash, denies eczema. NEUROLOGICAL: Denies recent memory loss, no recent seizure activity. PSYCHIATRIC: Denies anxiety, denies depression. HEMATOLOGIC/LYMPHATIC: Denies anemia, denies enlarged lymph nodes. 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 knee wound + FOR MRSA. His tory of high left above-knee amputation done approximately 2009. Last Myocardial Infarction Date:: 2003 History of Any Multi-Drug Resistant Organisms: Acinetobacter (MDRO), MRSA Date of last positivie culture/infection: 04/02/16 MDRO Source:: LT KNEE WOUND Past Surgical History: Heart Catheterization With Stent, Orthopedic Surgery Additional Past Surgical History / Comment(s): STENTS TO LEFT GROIN, LEFT ABOVE THE KNEE AMPUTATION, unsuccessful revascularization left leg, shoulder surgery, surgical debridement of necrotic tissue left scrotal area, LT AKA 03/03/16. left testicle removed. heart stent x1 broken left hip Past Anesthesia/Blood Transfusion Reactions: No Reported Reaction Date of Last Stent Placement:: 2006 Past Psychological History: Depression Smoking Status: Former smoker Past Alcohol Use History: None Reported Past Drug Use History: Marijuana - Past Family History Sister(s) History Unknown: Yes Family Medical History: Cancer Additional Family Medical History / Comment(s): double mastectomy, still surviving Father History Unknown: Yes Family Medical History: No Reported History Mother History Unknown: Yes Family Medical History: No Reported History Additional Family Medical History / Comment(s): hypoglycemia Medications and Allergies Home Medications Medication Instructions Recorded Confirmed Type Aspirin 81 mg PO DAILY 01/14/14 04/17/23 History DULoxetine HCL [Cymbalta] 60 mg PO DAILY 01/14/14 04/17/23 History lisinopriL [Prinivil] 20 mg PO DAILY 01/14/14 04/17/23 History Pantoprazole Sodium [Protonix] 40 mg PO DAILY 06/13/18 04/17/23 History amLODIPine [Norvasc] 5 mg PO DAILY 06/13/18 04/17/23 History Atorvastatin [Lipitor] 80 mg PO DAILY #30 tab 07/20/20 04/17/23 Rx Metoprolol Succinate (ER) [Toprol 25 mg PO DAILY #30 tab.er.24h 07/20/20 04/17/23 Rx XL] Albuterol Sulfate [Proair Hfa] 2 puff INHALATION RT-QID PRN 08/29/21 04/17/23 History Tamsulosin [Flomax] 0.4 mg PO DAILY 08/29/21 04/17/23 History HYDROcodone/APAP 10-325MG [[place] 1 tab PO Q6HR PRN 07/12/22 04/17/23 History 10-325] Primidone [Mysoline] 25 mg PO HS 07/12/22 04/17/23 History Loratadine [Claritin] 10 mg PO DAILY 08/13/22 04/17/23 History Nitroglycerin Sl Tabs [Nitrostat] 0.4 mg SL Q5M PRN 08/13/22 04/17/23 History Albuterol Nebulized [Ventolin 2.5 mg INHALATION RT-Q6H PRN 03/23/23 04/17/23 History Nebulized] Clotrimazole/Betameth Cream 1 applic TOPICAL DAILY PRN 03/23/23 04/17/23 History [Lotrisone] Escitalopram [Lexapro] 20 mg PO DAILY 03/23/23 04/17/23 History Fluticasone/Umeclidin/Vilanter 1 puff INHALATION RT-DAILY 03/23/23 04/17/23 History [Trelegy Ellipta 200-62.5-25] Gabapentin 600 mg PO TID 03/23/23 04/17/23 History Megestrol Acetate 400 mg PO DAILY 03/23/23 04/17/23 History Clopidogrel [Plavix] 75 mg PO DAILY 30 Days #30 tab 03/26/23 04/17/23 Rx Cephalexin [Keflex] 500 mg PO QID 04/17/23 04/17/23 History traZODone HCL [Desyrel] 50 mg PO HS 04/17/23 04/17/23 History Allergies Allergy/AdvReac Type Severity Reaction Status Date / Time azithromycin [From Zithromax] Allergy Rash/Hives Verified 04/17/23 11:51 Physical Exam Vitals: Vital Signs Temp Pulse Resp BP Pulse Ox FiO2 04/17/23 13:49 87 18 149/69 100 04/17/23 12:00 86 18 142/72 97 04/17/23 11:34 84 04/17/23 11:23 80 04/17/23 08:50 86 16 150/81 97 04/17/23 07:47 85 04/17/23 07:34 84 95 04/17/23 06:00 97 20 144/83 99 04/17/23 04:38 40 04/17/23 03:34 89 18 144/67 97 01/06/24 02:12 90 04/17/23 01:38 89 40 04/17/23 01:25 100.4 F H 95 40 H 146/67 100 Intake and Output 04/16/23 04/17/23 04/17/23 22:59 06:59 14:59 Other: Weight 68.039 kg Physical Exam: Revealed a 72-year-old white male in no distress on 3 L nasal cannula., Head: Atraumatic, normocephalic. HEENT:[Neck is supple.] [No neck masses.] [No thyromegaly.] [No JVD.] Chest: [Crackles or rhonchi and wheezes noted bilaterally. Cardiac: Normal S1 and S2, no S3 gallop, no murmur. 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 Neurological Exam: [No focal neurologic deficit.] alert oriented 3 psychiatric: Normal mood affect and normal mental status examination Results - Laboratory Findings CBC and BMP: 04/17/23 01:36 04/17/23 01:36 PT/INR, D-dimer PT 10.7 sec (10.0-12.5) 04/17/23 01:36 INR 1.0 (<1.2) 04/17/23 01:36 Abnormal lab findings: Abnormal Labs 04/17/23 04/17/23 04/17/23 01:36 01:36 08:59 WBC 11.7 H RBC 3.89 L Hgb 9.6 L Hct 32.5 L MCH 24.6 L MCHC 29.5 L RDW 16.1 H Neutrophils # 10.8 H Lymphocytes # 0.3 L Sodium 135 L Potassium 5.5 H BUN 45 H Glucose 126 H Procalcitonin 1.57 H - Diagnostic Findings Chest x-ray: image reviewed (As noted in HPI suspect COPD and possibly left lower lobe and right lower lobe infiltrate.) CT scan - chest: image reviewed (As noted in HPI multiple pulmonary nodules, CT of the chest was done on 03/23/23 ) Assessment and Plan Assessment: Impression: Acute on chronic hypoxic respiratory failure secondary to acute exacerbation of COPD Chronic hypoxic respiratory failure on home O2 Acute community-acquired pneumonia, I believe the patient has no sprays disease involving the left lower lobe and right lower lobe Ex-smoker Multiple pulmonary nodules highly suspicious for metastatic disease, will need outpatient workup and he will need a PET scan and decide whether to proceed with CT-guided needle biopsy of some of the peripheral nodules or bronchoscopy with transbronchial by Moderate sized hiatal hernia Chronic anemia Coronary artery disease and previous stent placement, patient underwent balloon angioplasty of LAD on this admission/successful Benign essential hypertension Peripheral vessel occlusive disease and previous left above-knee amputation Recommendation: Continue antibiotics and/Levaquin patient cannot take Zithromax. Continue bronchodilators Continue oxygen and titrate accordingly Continue methylprednisolone DVT prophylaxis and GI prophylaxis Counseled regarding smoking cessation Resume home meds for his underlying coronary artery disease Patient will definitely need outpatient EGD for the abnormality noted on his previous CT of the chest with abnormal, wall. Will need a PET scan on outpatient basis We will continue Time with Patient: Greater than 30
[2023-04-17] MEDS: GABAPENTIN 300 MG CAP PO SCH ×2 (16:27→20:37)
[2023-04-17] MEDS: IPRATROPIUM-ALBUTEROL 3 ML NEB INHALATION SCH (19:51)
[2023-04-17 20:18] LABS: Glucose,Whole Blood 324 mg/dL (70-110)
[2023-04-17 20:20] LABS: Glucose,Whole Blood 267 mg/dL (70-110)
[2023-04-17] MEDS: LIDOCAINE 4% PATCH TOPICAL SCH (20:36)
[2023-04-17] MEDS: INSULIN ASPART (NovoLOG) 100 UNIT/ML VIAL SQ SCH (20:37)
[2023-04-17] MEDS ORDERED: PRIMIDONE 25 MG TAB PO SCH (21:00)
[2023-04-17] MEDS: traZODone HCL 50 MG TAB PO SCH (21:05)
--- NOTE | 2023-04-17 23:18 | P.CONS ---
History of Present Illness - Reason for Consult Consult date: 04/17/23 Fever Requesting physician: Felix Martin - Chief Complaint Increasing shortness of breath and cough x few days - History of Present Illness Patient is a 72-year-old male with a past medical history significant for COPD hypertension hyperlipidemia did have a osteomyelitis on his gangrene and left [id number] amputation presenting to the hospital for evaluation of increasing shortness of breath and cough patient symptoms that has been getting worse for the last few days patient did have a cough moderate intensity and is bring up some sputum patient denies having any hemoptysis or pleuritic chest pain no nausea no vomiting no abdominal pain no diarrhea patient noticed to have some erythema to the right lower extremity and mention has been getting some antibiotics for the right leg cellulitis, patient on presentation to the hospital to have a fever of 100.4 F, patient was not tachycardic or hypotensive no O2 sats on room air documented currently on 3 L satting 96% patient did have white count of 11.7 creatinine 0.81 , liver enzymes are normal influenza RSV COVID testing was negative chest x-ray chronic changes with new left basilar acute infiltrate or atelectasis patient was started on Levaquin infectious disease was consulted for further management of antibiotic therapy Review of Systems Positive point and negatives has been mentioned in the HPI, complete review of systems was performed and all other systems are negative Past Medical History Past Medical History: COPD, Hyperlipidemia, Hypertension, Myocardial Infarction ([place]), Osteoarthritis (OA), Vascular Disorder Additional Past Medical History / Comment(s): hx migraines, hx shingles, 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 knee wound + FOR MRSA. History of high left above-knee amputation done approximately 2009. Last Myocardial Infarction Date:: 2003 History of Any Multi-Drug Resistant Organisms: Acinetobacter (MDRO), MRSA Year Discovered:: 04/02/16 MDRO Source:: LT KNEE WOUND Past Surgical History: Heart Catheterization With Stent, Orthopedic Surgery Additional Past Surgical History / Comment(s): STENTS TO LEFT GROIN, LEFT ABOVE THE KNEE AMPUTATION, unsuccessful revascularization left leg, shoulder surgery, surgical debridement of necrotic tissue left scrotal area, LT AKA 03/03/16. left testicle removed. heart stent x1 broken left hip Past Anesthesia/Blood Transfusion Reactions: No Reported Reaction Date of Last Stent Placement:: 2006 Past Psychological History: Depression Smoking Status: Former smoker Past Alcohol Use History: None Reported Past Drug Use History: Marijuana - Past Family History Sister(s) History Unknown: Yes Family Medical History: Cancer Additional Family Medical History / Comment(s): double mastectomy, still surviving Father History Unknown: Yes Family Medical History: No Reported History Mother History Unknown: Yes Family Medical History: No Reported History Additional Family Medical History / Comment(s): hypoglycemia Medications and Allergies Home Medications Medication Instructions Recorded Confirmed Type Aspirin 81 mg PO DAILY 01/14/14 04/17/23 History DULoxetine HCL [Cymbalta] 60 mg PO DAILY 01/14/14 04/17/23 History lisinopriL [Prinivil] 20 mg PO DAILY 01/14/14 04/17/23 History Pantoprazole Sodium [Protonix] 40 mg PO DAILY 06/13/18 04/17/23 History amLODIPine [Norvasc] 5 mg PO DAILY 06/13/18 04/17/23 History Atorvastatin [Lipitor] 80 mg PO DAILY #30 tab 07/20/20 04/17/23 Rx Metoprolol Succinate (ER) [Toprol 25 mg PO DAILY #30 tab.er.24h 07/20/20 04/17/23 Rx XL] Albuterol Sulfate [Proair Hfa] 2 puff INHALATION RT-QID PRN 08/29/21 04/17/23 History Tamsulosin [Flomax] 0.4 mg PO DAILY 08/29/21 04/17/23 History HYDROcodone/APAP 10-325MG [[place] 1 tab PO Q6HR PRN 07/12/22 04/17/23 History 10-325] Primidone [Mysoline] 25 mg PO HS 07/12/22 04/17/23 History Loratadine [Claritin] 10 mg PO DAILY 08/13/22 04/17/23 History Nitroglycerin Sl Tabs [Nitrostat] 0.4 mg SL Q5M PRN 08/13/22 04/17/23 History Albuterol Nebulized [Ventolin 2.5 mg INHALATION RT-Q6H PRN 03/23/23 04/17/23 Hi story Nebulized] Escitalopram [Lexapro] 20 mg PO DAILY 03/23/23 04/17/23 History Fluticasone/Umeclidin/Vilanter 1 puff INHALATION RT-DAILY 03/23/23 04/17/23 History [Trelegy Ellipta 200-62.5-25] Gabapentin 600 mg PO TID 03/23/23 04/17/23 History Megestrol Acetate 400 mg PO DAILY 03/23/23 04/17/23 History Clopidogrel [Plavix] 75 mg PO DAILY 30 Days #30 tab 03/26/23 04/17/23 Rx traZODone HCL [Desyrel] 50 mg PO HS 04/17/23 04/17/23 History Budesonide-Formot 160-4.5 Mcg 2 puff INHALATION RT-BID 30 Days 04/21/23 Rx [Symbicort 160-4.5 Mcg Inhaler] #1 each Ipratropium-Albuterol Nebulize 3 ml INHALATION RT-QID 30 Days 04/21/23 Rx [Duoneb 0.5 mg-3 mg/3 ml Soln] #120 each Lidocaine 4% Patch 1 patch TOPICAL DAILY@1999 30 Days 04/21/23 Rx #30 patch cefUROXime axetiL [Cefuroxime] 500 mg PO BID 7 Days #14 tab 04/21/23 Rx predniSONE 10 mg PO DAILY 12 Days #30 tab 04/21/23 Rx Allergies Allergy/AdvReac Type Severity Reaction Status Date / Time azithromycin [From Zithromax] Allergy Rash/Hives Verified 04/17/23 11:51 Physical Exam Vitals: Vital Signs Temp Pulse Resp BP Pulse Ox FiO2 04/17/23 06:00 97 20 144/83 99 04/17/23 04:38 40 04/17/23 03:34 89 18 144/67 97 04/17/23 02:12 90 04/17/23 01:38 89 40 04/17/23 01:25 100.4 F H 95 40 H 146/67 100 Intake and Output 04/16/23 04/17/23 04/17/23 22:59 06:59 14:59 Other: Weight 68.039 kg GENERAL DESCRIPTION: Elderly male lying in bed, no distress. No tachypnea or accessory muscle of respiration use. HEENT: Shows Pallor , no scleral icterus. Oral mucous membrane is dry. No pharyngeal erythema or thrush NECK: Trachea central, no thyromegaly. LUNGS: Unlabored breathing. Coarse breath sounds bilaterally HEART: S1, S2, regular rate and rhythm. No loud murmur ABDOMEN: Soft, no tenderness , guarding or rigidity, no organomegaly EXTREMITIES: Right lower extremity did have some erythema no drainage SKIN: No rash, no masses palpable. NEUROLOGICAL: The patient is awake, alert, oriented x3, mood and affect normal. Results CBC & Chem 7: 04/21/23 07:58 04/21/23 07:58 Labs: Abnormal Lab Results - Last 24 Hours (Table) 04/17/23 04/17/23 Range/Units 01:36 01:36 WBC 11.7 H (3.8-10.6) k/uL RBC 3.89 L (4.30-5.90) m/uL Hgb 9.6 L (13.0-17.5) gm/dL Hct 32.5 L (39.0-53.0) % MCH 24.6 L (25.0-35.0) pg MCHC 29.5 L (31.0-37.0) g/dL RDW 16.1 H (11.5-15.5) % Neutrophils # 10.8 H (1.3-7.7) k/uL Lymphocytes # 0.3 L (1.0-4.8) k/uL Sodium 135 L (137-145) mmol/L Potassium 5.5 H (3.5-5.1) mmol/L BUN 45 H (9-20) mg/dL Glucose 126 H (74-99) mg/dL Assessment and Plan (1) Sepsis Status: Acute Code(s): A41.9 - SEPSIS, UNSPECIFIED ORGANISM SNOMED Code(s): 36755501 (2) Pneumonia Status: Acute Code(s): J18.9 - PNEUMONIA, UNSPECIFIED ORGANISM SNOMED Code(s): 976698496 Plan: 1patient presented to hospital with sepsis in this patient who did have a fever elevated white count source is likely left lower lobe pneumonia in this patient has been out of hospital will need to cover for resistant Gram negative to be the likely pathogen 2-patient with azithromycin allergy that will limit the number of antibiotic safe to use 3-we will obtain a sputum for Gram stain and culture check a CRP and a procalcitonin 4-we will add Zosyn 3.375 g every 8 hours while waiting for the culture to be finalized We will follow on clinical condition and cultures to further adjust medication if needed Thank you for this consultation we will follow the patient along with you Dictation was produced using [employer] dictation software. please excuse any gramm atical, word or spelling errors. Time with Patient: Greater than 30
[2023-04-18] MEDS: methylPREDNISolone SOD SUCCI 125 MG/2 ML VIAL IV SCH ×4 (00:12→16:48)
[2023-04-18] MEDS: PIPERACILLIN-TAZOBACTAM 3.375 GM in SODIUM CHLORIDE 0.9% 100 ML IVPB SCH ×3 (01:06→14:04)
[2023-04-18] MEDS: HYDROcodone/APAP 10-325MG 1 EACH TAB PO PRN ×3 (04:28→20:50)
[2023-04-18] MEDS: LEVOFLOXACIN 750MG-D5W PMX 750 MG in DEXTROSE/WATER 1 150ML.BAG IVPB SCH (05:20)
[2023-04-18 06:09] LABS: Glucose,Whole Blood 285 mg/dL (70-110)
[2023-04-18] MEDS: PANTOPRAZOLE 40 MG TABLET PO SCH (06:28)
[2023-04-18] MEDS: INSULIN ASPART (NovoLOG) 100 UNIT/ML VIAL SQ SCH ×4 (06:28→20:51)
[2023-04-18] MEDS ORDERED: IPRATROPIUM 0.5 MG/2.5 ML NEBU INHALATION SCH (08:00)
[2023-04-18] MEDS: ASPIRIN 81 MG PO SCH (08:05)
[2023-04-18] MEDS: GABAPENTIN 300 MG CAP PO SCH ×3 (08:05→20:49)
[2023-04-18] MEDS: CLOPIDOGREL 75 MG TAB PO SCH (08:05)
[2023-04-18] MEDS: TAMSULOSIN 0.4 MG CAP.ER.24H PO SCH (08:05)
[2023-04-18] MEDS: ENOXAPARIN 40 MG/0.4 ML SYRINGE SQ SCH (08:05)
[2023-04-18] MEDS: amLODIPine 5 MG TAB PO SCH (08:05)
[2023-04-18] MEDS: LORATADINE 10 MG TAB PO SCH (08:05)
[2023-04-18] MEDS: METOPROLOL SUCCINATE (ER) 25 MG TAB.ER.24H PO SCH (08:05)
[2023-04-18] MEDS: ESCITALOPRAM 20 MG TAB PO SCH (08:05)
[2023-04-18] MEDS: lisinopriL 20 MG TAB PO SCH (08:05)
[2023-04-18] MEDS: DULoxetine HCL 60 MG CAPSULE.DR PO SCH (08:05)
[2023-04-18] MEDS: ATORVASTATIN 80 MG TAB PO SCH (08:05)
--- NOTE | 2023-04-18 08:07 | XR ---
EXAMINATION TYPE: XR chest 1V portable DATE OF EXAM: 04/18/2023 Comparison: 04/17/2023 Clinical History: 72-year-old male with pneumonia, shortness of breath Findings: Heart mildly enlarged. Hyperinflation. Diffuse interstitial and patchy opacities have slightly increa sed in the interval, right greater than left. No pleural effusion. Advanced degenerative change both shoulders. Impression: COPD with worsening bilateral interstitial infiltrates.
[2023-04-18 08:14] LABS: Anisocytosis Slight; Basophils % (A) 0 %; Eosinophils % (A) 0 %; HCT 28.4 % (39.0-53.0); HGB 8.4 gm/dL (13.0-17.5); Hypochromasia Marked; Lymphocytes # (A) 0.3 k/uL (1.0-4.8); Lymphocytes % (A) 2 %; MCH 24.3 pg (25.0-35.0); MCHC 29.5 g/dL (31.0-37.0); MCV 82.3 fL (80.0-100.0); Mean Platelet Volume 8.5; Monocytes # (A) 0.3 k/uL (0-1.0); Monocytes % (A) 2 %; Neutrophils # (A) 12.3 k/uL (1.3-7.7); Neutrophils % (A) 95 %; Platelet Count 402 k/uL (150-450); Poikilocytosis Slight; RBC 3.45 m/uL (4.30-5.90); RDW 16.5 % (11.5-15.5)
[2023-04-18 08:24] LABS: ALT 21 U/L (4-49); AST 25 U/L (17-59); African American GFR (CKD) >90 (>60 ml/min/1.73 sqM); Albumin 3.2 g/dL (3.5-5.0); Alkaline Phosphatase 74 U/L (38-126); Anion Gap 9 mmol/L; Blood Urea Nitrogen 39 mg/dL (9-20); Calcium 8.7 mg/dL (8.4-10.2); Carbon Dioxide 25 mmol/L (22-30); Chloride 105 mmol/L (98-107); Glucose 258 mg/dL (74-99); Non-African American GFR(CKD) 88 (>60 ml/min/1.73 sqM); Potassium 4.7 mmol/L (3.5-5.1); Sodium 139 mmol/L (137-145); Total Bilirubin 0.4 mg/dL (0.2-1.3); Total Protein 5.9 g/dL (6.3-8.2)
[2023-04-18] MEDS: IPRATROPIUM-ALBUTEROL 3 ML NEB INHALATION SCH ×4 (08:40→20:04)
[2023-04-18] MEDS: SYMBICORT 160-4.5 MCG INHALER INHALATION SCH ×2 (08:40→20:04)
[2023-04-18] MEDS: MEGESTROL 400 MG/10 ML CUP PO SCH (09:40)
--- NOTE | 2023-04-18 11:05 | P.PN ---
Subjective Progress Note Date: 04/18/23 Baldev Joyce, is a 72-year-old male who presented to [facility] emergency room with a chief complaint of worsening shortness of breath and decreased O2 sat duration down to 70% He was evaluated in the emergency room vital examination on presentation revealed a temperature of 100.4 pulse 95 respiration 14 blood pressure 146/67 pulse ox 100% on BiPAP Laboratory data revealed a white blood count of 11.7 hemoglobin 9.6 platelet count 426 sodium 135 potassium 5.5 chloride 103 BUN 45 creatinine 0.81 Testing in the emergency room revealed chest x-ray done in the emergency room revealed acute left basilar infiltrate. Patient was recently admitted to [facility] about 3 weeks ago for acute exacerbation of COPD, at that time he had a CT angiogram of the chest that revealed evidence of suspicious pulmonary nodules, and evidence of gastric wall thickening. Patient was supposed to follow-up with Dr. Guerin and Dr. Luogn as outpatient for further evaluation however he returned to emergency room with worsening shortness of breath. Patient was admitted to medical floor for further evaluation and treatment. Consultation for pulmonary and infectious disease were initiated. On 04/18/2023 patient is alert and oriented 3. Patient reports some improvement shortness of breath remains on IV Solu-Medrol IV Zosyn pulmonary and infectious disease services are following. Current vital signs temp 97.0, heart rate 89, respiratory rate 18, blood pressure 150/95 and pulse ox of 98 percent on 3 L. Patient denies chest pain. Patient denies nausea vomiting or diarrhea. Patient denies any urinary burning or frequency Objective - Vital Signs Vital signs: Vital Signs Temp 97.0 F L 04/18/23 04:25 Pulse 79 04/18/23 08:40 Resp 18 04/18/23 08:00 BP 158/95 04/18/23 08:00 Pulse Ox 98 04/18/23 08:00 FiO2 40 04/17/23 04:38 Intake & Output 04/17/23 04/18/23 04/18/23 18:59 06:59 18:59 Intake Total 130 Output Total 300 Balance -170 Weight 68.039 kg Intake: IV 10 Invasive Line 2 10 Oral 120 Output: Urine 300 Other: Voiding Method Bedside Commode # Voids 2 # Bowel Movements 1 1 - Exam In general patient is alert and oriented x 3 in no distress HEENT head normocephalic and atraumatic Neck is supple no JVD no goiter no lymphadenopathy no carotid bruit Chest examination reveals a crackles in bilateral bases no wheezing Cardiac exam reveals regular heart sounds S1 and S2 no gallops no murmurs Abdomen is soft nontender no organomegaly with normal bowel sounds Extremity exam reveals no edema no cyanosis or clubbing Neurological examination reveals no gross focal deficits - Labs CBC & Chem 7: 04/18/23 06:57 04/18/23 06:57 Labs: Abnormal Lab Results - Last 24 Hours (Table) 04/17/23 04/17/23 04/17/23 Range/Units 08:59 20:16 20:18 WBC (3.8-10.6) k/uL RBC (4.30-5.90) m/uL Hgb (13.0-17.5) gm/dL Hct (39.0-53.0) % MCH (25.0-35.0) pg MCHC (31.0-37.0) g/dL RDW (11.5-15.5) % Neutrophils # (1.3-7.7) k/uL Lymphocytes # (1.0-4.8) k/uL BUN (9-20) mg/dL Glucose (74-99) mg/dL POC Glucose (mg/dL) 324 H 267 H (70-110) mg/dL Total Protein (6.3-8.2) g/dL Albumin (3.5-5.0) g/dL Procalcitonin 1.57 H (0.02-0.09) ng/mL 04/18/23 04/18/23 04/18/23 Range/Units 06:08 06:57 06:57 WBC 13.0 H (3.8-10.6) k/uL RBC 3.45 L (4.30-5.90) m/uL Hgb 8.4 L (13.0-17.5) gm/dL Hct 28.4 L (39.0-53.0) % MCH 24.3 L (25.0-35.0) pg MCHC 29.5 L (31.0-37.0) g/dL RDW 16.5 H (11.5-15.5) % Neutrophils # 12.3 H (1.3-7.7) k/uL Lymphocytes # 0.3 L (1.0-4.8) k/uL BUN 39 H (9-20) mg/dL Glucose 258 H (74-99) mg/dL POC Glucose (mg/dL) 285 H (70-110) mg/dL Total Protein 5.9 L (6.3-8.2) g/dL Albumin 3.2 L (3.5-5.0) g/dL Procalcitonin (0.02-0.09) ng/mL Microbiology - Last 24 Hours (Table) 04/17/23 11:26 Gram Stain - Preliminary Sputum Assessment and Plan Assessment: Left lower lobe pneumonia Acute hypoxic respiratory failure, requiring BiPAP use, on top of chronic hypoxic respiratory failure requiring home oxygen use. Acute exacerbation of chronic obstructive pulmonary disease Underlying history of coronary artery disease Underlying history of peripheral vascular disease Abnormal CT angiogram of the chest done last visit 3 weeks ago, revealing suspicious pulmonary nodules and gastric wall thickening Underlying history of hypertension Underlying history of hyperlipidemia Underlying history of diabetes mellitus Continued tobacco abuse At this time patient is admitted to telemetry floor Home medications reviewed and reordered Patient was started on IV Levaquin in the emergency room Pulmonary and infectious disease consultation requested For DVT prophylaxis subcu Lovenox For GI prophylaxis continue Protonix Patient was counseled regarding smoking cessation Will follow closely prognosis is guarded.
[2023-04-18 12:02] LABS: Glucose,Whole Blood 202 mg/dL (70-110)
--- NOTE | 2023-04-18 13:55 | P.PN ---
Subjective Progress Note Date: 04/18/23 Principal diagnosis: Acute on chronic hypoxic respiratory failure, multifactorial This is a 72-year-old white male familiar to my service, known to have history of severe COPD, chronic hypoxic respiratory failure, history of pulmonary nodules but he never had follow-up on outpatient basis regarding his pulmonary nodules, history of abnormal gastric wall, and he was supposed to follow-up with Dr. bronson for EGD and he never did. At any rate the patient is here today with mostly symptoms of shortness of breath and could not get his oxygen about 70%. Patient is normally maintained on 2.5 liters at home for his underlying COPD. Patient describes intermittent cough, wheezing, shortness of breath. Recent CT of the chest showed multiple pulmonary nodules questionable metastatic disease, chest x-ray on this admission showed chronic changes with a new left basilar infiltrate/atelectasis. I'm also suspecting some new change noted in the right lower lobe area with interstitial infiltrate noted. WBC count was a bit elevated at 11.7 hemoglobin 9.6. Basic metabolic profile is normal except for potassium of 5.5. Profile is relatively normal. Pro-calcitonin level is 1.57. Patient tested negative for influenza A, influenza B, RSV, and COVID-19. Reevaluated today on 04/18/23, patient is feeling better today, remains in the ER waiting for a bed on the medical floor, continues to have some cough and wheezing, however he feels better overall compared to yesterday. Cough is productive with yellow phlegm, no fever no chills no hemoptysis and no chest pain. Continues to have leukocytosis with WBC count of 13.0 hemoglobin 8.4 basic metabolic profile is normal and renal profile is normal blood sugar is 258., Patient remains on bronchodilators, remains on Zosyn. And on Solu-Medrol Objective - Vital Signs Vital signs: Vital Signs Temp 97.5 F L 04/18/23 12:00 Pulse 84 04/18/23 12:21 Resp 18 04/18/23 12:00 BP 150/91 04/18/23 12:00 Pulse Ox 97 04/18/23 12:00 FiO2 40 04/17/23 04:38 Intake & Output 04/17/23 04/18/23 04/18/23 18:59 06:59 18:59 Intake Total 140 Output Total 300 Balance -160 Weight 68.039 kg Intake: IV 20 Invasive Line 2 20 Oral 120 Output: Urine 300 Other: Voiding Method Bedside Commode # Voids 2 # Bowel Movements 1 1 - Exam Physical Exam: Revealed a 72-year-old white male in no distress on 3 L nasal cannula., O2 saturations 97% Head: Atraumatic, normocephalic. HEENT:[Neck is supple.] [No neck masses.] [No thyromegaly.] [No JVD.] Chest: [Rhonchi and wheezes bilaterally. Or so on the right side.. Cardiac: Normal S1 and S2, no S3 gallop, no murmur. 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 Neurological Exam: [No focal neurologic deficit.] alert oriented 3 psychiatric: Normal mood affect and normal mental status examination - Labs CBC & Chem 7: 04/18/23 06:57 04/18/23 06:57 Labs: Abnormal Lab Results - Last 24 Hours (Table) 04/17/23 04/17/23 04/17/23 Range/Units 08:59 20:16 20:18 WBC (3.8-10.6) k/uL RBC (4.30-5.90) m/uL Hgb (13.0-17.5) gm/dL Hct (39.0-53.0) % MCH (25.0-35.0) pg MCHC (31.0-37.0) g/dL RDW (11.5-15.5) % Neutrophils # (1.3-7.7) k/uL Lymphocytes # (1.0-4.8) k/uL BUN (9-20) mg/dL Glucose (74-99) mg/dL POC Glucose (mg/dL) 324 H 267 H (70-110) mg/dL Total Protein (6.3-8.2) g/dL Albumin (3.5-5.0) g/dL Procalcitonin 1.57 H (0.02-0.09) ng/mL 04/18/23 04/18/23 04/18/23 Range/Units 06:08 06:57 06:57 WBC 13.0 H (3.8-10.6) k/uL RBC 3.45 L (4.30-5.90) m/uL Hgb 8.4 L (13.0-17.5) gm/dL Hct 28.4 L (39.0-53.0) % MCH 24.3 L (25.0-35.0) pg MCHC 29.5 L (31.0-37.0) g/dL RDW 16.5 H (11.5-15.5) % Neutrophils # 12.3 H (1.3-7.7) k/uL Lymphocytes # 0.3 L (1.0-4.8) k/uL BUN 39 H (9-20) mg/dL Glucose 258 H (74-99) mg/dL POC Glucose (mg/dL) 285 H (70-110) mg/dL Total Protein 5.9 L (6.3-8.2) g/dL Albumin 3.2 L (3.5-5.0) g/dL Procalcitonin (0.02-0.09) ng/mL 04/18/23 Range/Units 12:01 WBC (3.8-10.6) k/uL RBC (4.30-5.90) m/uL Hgb (13.0-17.5) gm/dL Hct (39.0-53.0) % MCH (25.0-35.0) pg MCHC (31.0-37.0) g/dL RDW (11.5-15.5) % Neutrophils # (1.3-7.7) k/uL Lymphocytes # (1.0-4.8) k/uL BUN (9-20) mg/dL Glucose (74-99) mg/dL POC Glucose (mg/dL) 202 H (70-110) mg/dL Total Protein (6.3-8.2) g/dL Albumin (3.5-5.0) g/dL Procalcitonin (0.02-0.09) ng/mL Microbiology - Last 24 Hours (Table) 04/17/23 03:40 Blood Culture - Preliminary Blood 04/17/23 03:25 Blood Culture - Preliminary Blood 04/17/23 11:26 Gram Stain - Preliminary Sputum Assessment and Plan Assessment: Impression: Acute on chronic hypoxic respiratory failure secondary to acute exacerbation of COPD Chronic hypoxic respiratory failure on home O2 Acute community-acquired pneumonia, I believe the patient has no sprays disease involving the left lower lobe and right lower lobe Ex-smoker Multiple pulmonary nodules highly suspicious for metastatic disease, will need outpatient workup and he will need a PET scan and decide whether to proceed with CT-guided needle biopsy of some of the peripheral nodules or bronchoscopy with transbronchial by Moderate sized hiatal hernia Chronic anemia Coronary artery disease and previous stent placement, patient underwent balloon angioplasty of LAD on this admission/successful Benign essential hypertension Peripheral vessel occlusive disease and previous left above-knee amputation Recommendation: Continue antibiotics, on Zosyn. Continue bronchodilators Continue oxygen and titrate accordingly Continue methylprednisolone DVT prophylaxis and GI prophylaxis Counseled regarding smoking cessation Patient will definitely need outpatient EGD , and outpatient PET scan. We will continue Time with Patient: Less than 30
[2023-04-18 16:39] LABS: Glucose,Whole Blood 261 mg/dL (70-110)
[2023-04-18 20:22] LABS: Glucose,Whole Blood 341 mg/dL (70-110)
[2023-04-18] MEDS: traZODone HCL 50 MG TAB PO SCH (20:49)
[2023-04-18] MEDS: LIDOCAINE 4% PATCH TOPICAL SCH (20:51)
[2023-04-18] MEDS: PRIMIDONE 50 MG TAB PO SCH (22:54)
[2023-04-19] MEDS: PIPERACILLIN-TAZOBACTAM 3.375 GM in SODIUM CHLORIDE 0.9% 100 ML IVPB SCH ×4 (01:10→23:45)
[2023-04-19] MEDS: methylPREDNISolone SOD SUCCI 125 MG/2 ML VIAL IV SCH ×5 (01:10→23:45)
[2023-04-19 05:42] LABS: Glucose,Whole Blood 224 mg/dL (70-110)
[2023-04-19] MEDS: LEVOFLOXACIN 750MG-D5W PMX 750 MG in DEXTROSE/WATER 1 150ML.BAG IVPB SCH (06:31)
[2023-04-19] MEDS: HYDROcodone/APAP 10-325MG 1 EACH TAB PO PRN ×3 (06:32→19:00)
[2023-04-19] MEDS: INSULIN ASPART (NovoLOG) 100 UNIT/ML VIAL SQ SCH ×4 (06:32→21:27)
[2023-04-19] MEDS: PANTOPRAZOLE 40 MG TABLET PO SCH (06:32)
[2023-04-19] MEDS: SYMBICORT 160-4.5 MCG INHALER INHALATION SCH ×2 (09:13→20:41)
[2023-04-19] MEDS: IPRATROPIUM-ALBUTEROL 3 ML NEB INHALATION SCH ×4 (09:13→20:41)
[2023-04-19 09:26] LABS: Anisocytosis Slight; Basophils % (A) 0 %; Eosinophils % (A) 0 %; HCT 27.5 % (39.0-53.0); HGB 8.2 gm/dL (13.0-17.5); Hypochromasia Marked; Lymphocytes # (A) 0.4 k/uL (1.0-4.8); Lymphocytes % (A) 3 %; MCH 24.7 pg (25.0-35.0); MCHC 29.8 g/dL (31.0-37.0); MCV 82.9 fL (80.0-100.0); Mean Platelet Volume 8.2; Monocytes # (A) 0.4 k/uL (0-1.0); Monocytes % (A) 3 %; Neutrophils # (A) 11.5 k/uL (1.3-7.7); Neutrophils % (A) 93 %; Platelet Count 348 k/uL (150-450); Poikilocytosis Slight; RBC 3.32 m/uL (4.30-5.90); RDW 16.4 % (11.5-15.5); WBC 12.4 k/uL (3.8-10.6)
[2023-04-19 09:52] LABS: ALT 18 U/L (4-49); AST 18 U/L (17-59); African American GFR (CKD) 77 (>60 ml/min/1.73 sqM); Albumin 2.8 g/dL (3.5-5.0); Alkaline Phosphatase 62 U/L (38-126); Anion Gap 8 mmol/L; Blood Urea Nitrogen 41 mg/dL (9-20); Calcium 8.7 mg/dL (8.4-10.2); Carbon Dioxide 27 mmol/L (22-30); Chloride 105 mmol/L (98-107); Glucose 235 mg/dL (74-99); Non-African American GFR(CKD) 67 (>60 ml/min/1.73 sqM); Potassium 4.3 mmol/L (3.5-5.1); Sodium 140 mmol/L (137-145); Total Bilirubin 0.3 mg/dL (0.2-1.3); Total Protein 5.3 g/dL (6.3-8.2)
[2023-04-19] MEDS: CLOPIDOGREL 75 MG TAB PO SCH (09:59)
[2023-04-19] MEDS: ESCITALOPRAM 20 MG TAB PO SCH (09:59)
[2023-04-19] MEDS: ASPIRIN 81 MG PO SCH (09:59)
[2023-04-19] MEDS: ATORVASTATIN 80 MG TAB PO SCH (09:59)
[2023-04-19] MEDS: METOPROLOL SUCCINATE (ER) 25 MG TAB.ER.24H PO SCH (10:00)
[2023-04-19] MEDS: TAMSULOSIN 0.4 MG CAP.ER.24H PO SCH (10:00)
[2023-04-19] MEDS: DULoxetine HCL 60 MG CAPSULE.DR PO SCH (10:00)
[2023-04-19] MEDS: GABAPENTIN 300 MG CAP PO SCH ×3 (10:00→21:27)
[2023-04-19] MEDS: LORATADINE 10 MG TAB PO SCH (10:00)
[2023-04-19] MEDS: lisinopriL 20 MG TAB PO SCH (10:00)
[2023-04-19] MEDS: ENOXAPARIN 40 MG/0.4 ML SYRINGE SQ SCH (10:01)
[2023-04-19] MEDS: amLODIPine 5 MG TAB PO SCH (10:01)
[2023-04-19] MEDS: MEGESTROL 400 MG/10 ML CUP PO SCH (10:50)
[2023-04-19 11:19] LABS: Glucose,Whole Blood 246 mg/dL (70-110)
--- NOTE | 2023-04-19 13:45 | P.PN ---
Subjective Progress Note Date: 04/19/23 Principal diagnosis: Pneumonia, fever. Acute on chronic hypoxic respiratory failure, multifactorial This is a 72-year-old white male familiar to my service, known to have history of severe COPD, chronic hypoxic respiratory failure, history of pulmonary nodules but he never had follow-up on outpatient basis regarding his pulmonary nodules, history of abnormal gastric wall, and he was supposed to follow-up with Dr. bronson for EGD and he never did. At any rate the patient is here today with mostly symptoms of shortness of breath and could not get his oxygen about 70%. Patient is normally maintained on 2.5 liters at home for his underlying COPD. Patient describes intermittent cough, wheezing, shortness of breath. Recent CT of the chest showed multiple pulmonary nodules questionable metastatic disease, chest x-ray on this admission showed chronic changes with a new left basilar infiltrate/atelectasis. I'm also suspecting some new change noted in the right lower lobe area with interstitial infiltrate noted. WBC count was a bit elevated at 11.7 hemoglobin 9.6. Basic metabolic profile is normal except for potassium of 5.5. Profile is relatively normal. Pro-calcitonin level is 1.57. Patient tested negative for influenza A, influenza B, RSV, and COVID-19. Reevaluated today on 04/18/23, patient is feeling better today, remains in the ER waiting for a bed on the medical floor, continues to have some cough and wheezing, however he feels better overall compared to yesterday. Cough is productive with yellow phlegm, no fever no chills no hemoptysis and no chest pain. Continues to have leukocytosis with WBC count of 13.0 hemoglobin 8.4 basic metabolic profile is normal and renal profile is normal blood sugar is 258., Patient remains on bronchodilators, remains on Zosyn. And on Solu-Medrol Progress note dated 04/19/2023. 72-year-old male admitted with a diagnosis of acute on chronic hypoxemic respiratory failure. The patient is seen today in room 385. He's on 3 L of oxygen. He continues on Zosyn and Levaquin. His pro-calcitonin level was 1.57. The patient has used BiPAP, with settings of 12/6, and 40%. Currently laboratory data includes a white count of 12.4, hemoglobin 8.2, hematocrit 27.5, and a platelet count of 348,000. Sodium 140, potassium 4.3, chlorides 105, CO2 27, BUN 41, creatinine 1.09. Albumin is 2.8. Chest x-ray shows findings of COPD, and bilateral right greater than left infiltrates. Objective - Vital Signs Vital signs: Vital Signs Temp 98.5 F 04/19/23 08:00 Pulse 80 04/19/23 13:30 Resp 18 04/19/23 08:00 BP 152/75 04/19/23 08:00 Pulse Ox 100 04/19/23 08:00 FiO2 40 04/17/23 04:38 Intake & Output 04/18/23 04/19/23 04/19/23 18:59 06:59 18:59 Intake Total 369 240 Output Total 800 Balance -431 240 Intake: IV 20 Invasive Line 2 20 Oral 349 240 Output: Urine 800 Other: Voiding Method Bedside Commode Bedside Commode # Voids 6 # Bowel Movements 1 - Exam No acute distress, oriented 3. Currently on 3 L. No respiratory distress. No audible wheezing. HEENT examination is grossly unremarkable. Neck supple. Full range of motion. No adenopathy thyromegaly or neck vein distention. Cardiovascular examination reveals regular rhythm rate. S1-S2 normal. No S3 or S4. No discernible murmur noted. Heart rate 91 bpm. Lungs reveal bilateral rhonchi and wheezes. Abnormal breath sounds are more right-sided. No crackles. 3 L saturation is 97%. Abdomen soft bowel sounds are heard. No masses or tenderness. Extremities are intact. Left [id number] amputation. No cyanosis or clubbing. No edema. Skin is without rash or lesion. Neurologic examination is brief but nonfocal. - Labs CBC & Chem 7: 04/19/23 08:30 04/19/23 08:30 Labs: Abnormal Lab Results - Last 24 Hours (Table) 04/18/23 04/18/23 04/19/23 Range/Units 16:38 20:20 05:40 WBC (3.8-10.6) k/uL RBC (4.30-5.90) m/uL Hgb (13.0-17.5) gm/dL Hct (39.0-53.0) % MCH (25.0-35.0) pg MCHC (31.0-37.0) g/dL RDW (11.5-15.5) % Neutrophils # (1.3-7.7) k/uL Lymphocytes # (1.0-4.8) k/uL BUN (9-20) mg/dL Glucose (74-99) mg/dL POC Glucose (mg/dL) 261 H 341 H 224 H (70-110) mg/dL Total Protein (6.3-8.2) g/dL Albumin (3.5-5.0) g/dL 04/19/23 04/19/23 04/19/23 Range/Units 08:30 08:30 11:18 WBC 12.4 H (3.8-10.6) k/uL RBC 3.32 L (4.30-5.90) m/uL Hgb 8.2 L (13.0-17.5) gm/dL Hct 27.5 L (39.0-53.0) % MCH 24.7 L (25.0-35.0) pg MCHC 29.8 L (31.0-37.0) g/dL RDW 16.4 H (11.5-15.5) % Neutrophils # 11.5 H (1.3-7.7) k/uL Lymphocytes # 0.4 L (1.0-4.8) k/uL BUN 41 H (9-20) mg/dL Glucose 235 H (74-99) mg/dL POC Glucose (mg/dL) 246 H (70-110) mg/dL Total Protein 5.3 L (6.3-8.2) g/dL Albumin 2.8 L (3.5-5.0) g/dL Microbiology - Last 24 Hours (Table) 04/17/23 03:40 Blood Culture - Preliminary Blood 04/17/23 03:25 Blood Culture - Preliminary Blood 04/17/23 11:26 Gram Stain - Final Sputum Sputum Culture - Final Assessment and Plan Assessment: Acute on chronic hypoxemic respiratory failure, secondary to COPD exacerbation. Chronic hypoxemic respiratory failure, on home O2. Bilateral community acquired pneumonia, right greater than left. History of previous heavy tobacco use. Multiple pulmonary nodules, suspicious for metastatic disease, will need outpatient workup, and outpatient PET scan. Moderate size hiatal hernia. Chronic anemia. Coronary artery disease, status post stent placement. Benign essential hypertension. Peripheral vascular occlusive disease, status post left [id number] amputation. Plan: Plan dated 04/19/2023. The patient continues on antibiotics, in the form of Zosyn and Levaquin. His pro-calcitonin level was elevated at 1.57. He is on 3 L of oxygen. He does use of BiPAP, from time to time, with settings of 12/6, and 40%. Labs, x-rays, medications are reviewed. The patient is counseled about the importance of smoking cessation. He continues on Solu-Medrol, and bronchodilators. He also continues on DVT prophylaxis, GI prophylaxis. Additional recommendations and suggestions are forthcoming. Time with Patient: Less than 30
[2023-04-19] MEDS: guaiFENesin-Coden 100-10MG/5ML 10 ML CUP PO PRN (14:22)
--- NOTE | 2023-04-19 17:39 | P.PN ---
Subjective Progress Note Date: 04/19/23 Baldev Joyce, is a 72-year-old male who presented to [facility] emergency room with a chief complaint of worsening shortness of breath and decreased O2 sat duration down to 70% He was evaluated in the emergency room vital examination on presentation revealed a temperature of 100.4 pulse 95 respiration 14 blood pressure 146/67 pulse ox 100% on BiPAP Laboratory data revealed a white blood count of 11.7 hemoglobin 9.6 platelet count 426 sodium 135 potassium 5.5 chloride 103 BUN 45 creatinine 0.81 Testing in the emergency room revealed chest x-ray done in the emergency room revealed acute left basilar infiltrate. Patient was recently admitted to [facility] about 3 weeks ago for acute exacerbation of COPD, at that time he had a CT angiogram of the chest that revealed evidence of suspicious pulmonary nodules, and evidence of gastric wall thickening. Patient was supposed to follow-up with Dr. Guerin and Dr. Luong as outpatient for further evaluation however he returned to emergency room with worsening shortness of breath. Patient was admitted to medical floor for further evaluation and treatment. Consultation for pulmonary and infectious disease were initiated. On 04/18/2023 patient is alert and oriented 3. Patient reports some improvement shortness of breath remains on IV Solu-Medrol IV Zosyn pulmonary and infectious disease services are following. Current vital signs temp 97.0, heart rate 89, respiratory rate 18, blood pressure 150/95 and pulse ox of 98 percent on 3 L. Patient denies chest pain. Patient denies nausea vomiting or diarrhea. Patient denies any urinary burning or frequency On 04/19/2023 patient was seen and examined on the medical floor he is alert and oriented 3 in no apparent distress he is complaining of cough and shortness of breath he is also complaining of right lower extremity erythema and multiple ulcers otherwise he denies any complaints at this time there is no fever or chills no headache or dizziness no chest pain no nausea or vomiting no abdominal pain no diarrhea and no urinary symptoms Objective - Vital Signs Vital signs: Vital Signs Temp 98.7 F 04/19/23 12:00 Pulse 80 04/19/23 13:30 Resp 17 04/19/23 12:00 BP 156/79 04/19/23 12:00 Pulse Ox 97 04/19/23 12:00 FiO2 40 04/17/23 04:38 Intake & Output 04/18/23 04/19/23 04/19/23 18:59 06:59 18:59 Intake Total 369 240 Output Total 800 Balance -431 240 Intake: IV 20 Invasive Line 2 20 Oral 349 240 Output: Urine 800 Other: Voiding Method Bedside Commode Bedside Commode # Voids 6 # Bowel Movements 1 - Exam In general patient is alert and oriented x 3 in no distress HEENT head normocephalic and atraumatic Neck is supple no JVD no goiter no lymphadenopathy no carotid bruit Chest examination reveals a crackles in bilateral bases no wheezing Cardiac exam reveals regular heart sounds S1 and S2 no gallops no murmurs Abdomen is soft nontender no organomegaly with normal bowel sounds Extremity exam reveals no edema no cyanosis or clubbing Neurological examination reveals no gross focal deficits - Labs CBC & Chem 7: 04/19/23 08:30 04/19/23 08:30 Labs: Abnormal Lab Results - Last 24 Hours (Table) 04/18/23 04/18/23 04/19/23 Range/Units 16:38 20:20 05:40 WBC (3.8-10.6) k/uL RBC (4.30-5.90) m/uL Hgb (13.0-17.5) gm/dL Hct (39.0-53.0) % MCH (25.0-35.0) pg MCHC (31.0-37.0) g/dL RDW (11.5-15.5) % Neutrophils # (1.3-7.7) k/uL Lymphocytes # (1.0-4.8) k/uL BUN (9-20) mg/dL Glucose (74-99) mg/dL POC Glucose (mg/dL) 261 H 341 H 224 H (70-110) mg/dL Total Protein (6.3-8.2) g/dL Albumin (3.5-5.0) g/dL 04/19/23 04/19/23 04/19/23 Range/Units 08:30 08:30 11:18 WBC 12.4 H (3.8-10.6) k/uL RBC 3.32 L (4.30-5.90) m/uL Hgb 8.2 L (13.0-17.5) gm/dL Hct 27.5 L (39.0-53.0) % MCH 24.7 L (25.0-35.0) pg MCHC 29.8 L (31.0-37.0) g/dL RDW 16.4 H (11.5-15.5) % Neutrophils # 11.5 H (1.3-7.7) k/uL Lymphocytes # 0.4 L (1.0-4.8) k/uL BUN 41 H (9-20) mg/dL Glucose 235 H (74-99) mg/dL POC Glucose (mg/dL) 246 H (70-110) mg/dL Total Protein 5.3 L (6.3-8.2) g/dL Albumin 2.8 L (3.5-5.0) g/dL Microbiology - Last 24 Hours (Table) 04/17/23 03:40 Blood Culture - Preliminary Blood 04/17/23 03:25 Blood Culture - Preliminary Blood 04/17/23 11:26 Gram Stain - Final Sputum Sputum Culture - Final Assessment and Plan Plan: Left lower lobe pneumonia Acute hypoxic respiratory failure, requiring BiPAP use, on top of chronic hypoxic respiratory failure requiring home oxygen use. Acute exacerbation of chronic obstructive pulmonary disease Underlying history of coronary artery disease Underlying history of peripheral vascular disease Abnormal CT angiogram of the chest done last visit 3 weeks ago, revealing suspicious pulmonary nodules and gastric wall thickening Underlying history of hypertension Underlying history of hyperlipidemia Underlying history of diabetes mellitus Continued tobacco abuse At this time patient is admitted to telemetry floor Home medications reviewed and reordered Patient was started on IV Levaquin in the emergency room Pulmonary and infectious disease consultation requested For DVT prophylaxis subcu Lovenox For GI prophylaxis continue Protonix Patient was counseled regarding smoking cessation Will follow closely prognosis is guarded.
[2023-04-19 17:45] LABS: Glucose,Whole Blood 364 mg/dL (70-110)
[2023-04-19 21:11] LABS: Glucose,Whole Blood 348 mg/dL (70-110)
[2023-04-19] MEDS: LIDOCAINE 4% PATCH TOPICAL SCH (21:27)
[2023-04-19] MEDS: traZODone HCL 50 MG TAB PO SCH (21:28)
[2023-04-19] MEDS: PRIMIDONE 50 MG TAB PO SCH (21:28)
[2023-04-20] MEDS: HYDROcodone/APAP 10-325MG 1 EACH TAB PO PRN ×4 (04:21→23:16)
[2023-04-20] MEDS: LEVOFLOXACIN 750MG-D5W PMX 750 MG in DEXTROSE/WATER 1 150ML.BAG IVPB SCH (04:21)
[2023-04-20] MEDS: methylPREDNISolone SOD SUCCI 125 MG/2 ML VIAL IV SCH ×4 (05:36→23:17)
[2023-04-20 05:58] LABS: Glucose,Whole Blood 383 mg/dL (70-110)
[2023-04-20] MEDS: INSULIN ASPART (NovoLOG) 100 UNIT/ML VIAL SQ SCH ×4 (06:35→20:44)
[2023-04-20] MEDS: PANTOPRAZOLE 40 MG TABLET PO SCH (06:36)
[2023-04-20] MEDS: SYMBICORT 160-4.5 MCG INHALER INHALATION SCH ×2 (09:49→21:16)
[2023-04-20] MEDS: IPRATROPIUM-ALBUTEROL 3 ML NEB INHALATION SCH ×4 (09:49→21:15)
[2023-04-20] MEDS: MEGESTROL 400 MG/10 ML CUP PO SCH (09:54)
[2023-04-20] MEDS: lisinopriL 20 MG TAB PO SCH (09:55)
[2023-04-20] MEDS: ESCITALOPRAM 20 MG TAB PO SCH (09:55)
[2023-04-20] MEDS: ATORVASTATIN 80 MG TAB PO SCH (09:55)
[2023-04-20] MEDS: CLOPIDOGREL 75 MG TAB PO SCH (09:55)
[2023-04-20] MEDS: ASPIRIN 81 MG PO SCH (09:55)
[2023-04-20] MEDS: GABAPENTIN 300 MG CAP PO SCH ×3 (09:55→23:16)
[2023-04-20] MEDS: DULoxetine HCL 60 MG CAPSULE.DR PO SCH (09:56)
[2023-04-20] MEDS: PIPERACILLIN-TAZOBACTAM 3.375 GM in SODIUM CHLORIDE 0.9% 100 ML IVPB SCH ×3 (09:56→23:17)
[2023-04-20] MEDS: amLODIPine 5 MG TAB PO SCH (09:56)
[2023-04-20] MEDS: TAMSULOSIN 0.4 MG CAP.ER.24H PO SCH (09:56)
[2023-04-20] MEDS: METOPROLOL SUCCINATE (ER) 25 MG TAB.ER.24H PO SCH (09:56)
[2023-04-20] MEDS: LORATADINE 10 MG TAB PO SCH (09:56)
[2023-04-20] MEDS: ENOXAPARIN 40 MG/0.4 ML SYRINGE SQ SCH (09:56)
--- NOTE | 2023-04-20 10:05 | CDI ---
Documentation Clarification Form Date: 04/20/2023 09:42:08 AM From: Tana Guerra RN CCDS Phone: [phone] Admit Date: 04/17/2023 03:09:00 AM Patient Name: Baldev Joyce Visit Number: [id number] Discharge Date: ATTENTION: The Clinical Documentation Specialists (CDI) and [facility] Coding Staff appreciate your assistance in clarifying documentation. Please respond to the clarification below the line at the bottom and electronically sign. The CDI & [facility] Coding staff will review the response and follow-up if needed. Please note: Queries are made part of the Legal Health Record. If you have any questions, please contact the author of this message via ITS. Dr. Fidencio Barrientos The ID consult has documented the patient presented with Sepsis, 04/17. Based on this information and the findings below, is there an additional diagnosis that is clinically appropriate for this patient? History/Risk Factors: 72 year old male presents to the ED with worsening shortness of breath and decreased oxygen saturation down to 70%. Medical History: Recent hospital admission three weeks ago for acute exacerbation of COPD. COPD, HLD, HTN and DM2. H&P, 04/17. Clinical Indicators: LABS, 04/17: Wbc 11.7; Neutrophils 10.8; Procalcitonin 1.57 Blood cultures, 04/19: No growth after 48 hours Vitals signs, 04/17: B/P 146/67, HR 95, RR 40, Temp 100.4F Axillary, SpO2 100% BiPAP FiO2 40 ID Consult, 04/17: 1patient presented to hospital with sepsis in this patient who did have a fever elevated white count source is likely left lower lobe pneumonia in this patient has been out of hospital will need to cover for resistant Gram negative to be the likely pathogen. Treatment: 04/17 Duoneb 6ml Inhalation x 1 STA; 04/17 Duoneb 3ml Inhalation; 04/17 d/c after 12 hours 0.9ns 130cc/hr IV, ID Consult, 04/17: See above 750mg IVPB Q24HR; IV Bolus: 04/17 0.9ns 500cc IV bolus; Is there an additional diagnosis that is clinically appropriate for this patient? [ xxxx] Sepsis, present on admission [ ] Sepsis ruled out [ ] Other, please specify [ ] Unable to determine SIRS Criteria: 2 or more of the following may indicate SIRS Temperature < 96.8F (36C) or > 101.0F (38.3C) Heart Rate > 90 bpm Respiratory Rate > 20 breaths/min or PaCO2 < 32 mmHg White Blood Cell Count > 12,000 or < 4,000 cells/mm3 or > 10% bands (Template Last Reviewed: April 2022) [employer]
[2023-04-20 12:06] LABS: Glucose,Whole Blood 130 mg/dL (70-110)
--- NOTE | 2023-04-20 13:14 | P.PN ---
Subjective Progress Note Date: 04/20/23 Baldev Joyce, is a 72-year-old male who presented to [facility] emergency room with a chief complaint of worsening shortness of breath and decreased O2 sat duration down to 70% He was evaluated in the emergency room vital examination on presentation revealed a temperature of 100.4 pulse 95 respiration 14 blood pressure 146/67 pulse ox 100% on BiPAP Laboratory data revealed a white blood count of 11.7 hemoglobin 9.6 platelet count 426 sodium 135 potassium 5.5 chloride 103 BUN 45 creatinine 0.81 Testing in the emergency room revealed chest x-ray done in the emergency room revealed acute left basilar infiltrate. Patient was recently admitted to [facility] about 3 weeks ago for acute exacerbation of COPD, at that time he had a CT angiogram of the chest that revealed evidence of suspicious pulmonary nodules, and evidence of gastric wall thickening. Patient was supposed to follow-up with Dr. Guerin and Dr. Luong as outpatient for further evaluation however he returned to emergency room with worsening shortness of breath. Patient was admitted to medical floor for further evaluation and treatment. Consultation for pulmonary and infectious disease were initiated. On 04/18/2023 patient is alert and oriented 3. Patient reports some improvement shortness of breath remains on IV Solu-Medrol IV Zosyn pulmonary and infectious disease services are following. Current vital signs temp 97.0, heart rate 89, respiratory rate 18, blood pressure 150/95 and pulse ox of 98 percent on 3 L. Patient denies chest pain. Patient denies nausea vomiting or diarrhea. Patient denies any urinary burning or frequency On 04/19/2023 patient was seen and examined on the medical floor he is alert and oriented 3 in no apparent distress he is complaining of cough and shortness of breath he is also complaining of right lower extremity erythema and multiple ulcers otherwise he denies any complaints at this time there is no fever or chills no headache or dizziness no chest pain no nausea or vomiting no abdominal pain no diarrhea and no urinary symptoms. On 04/20/2023 patient was seen and examined on the medical floor he is alert and oriented 3 in no distress, he is still complaining of cough and shortness of breath and complaining of right lower extremity erythema and tenderness, otherwise he denies any complaints there is no fever or chills no headache or di zziness no chest pain no palpitation no nausea or vomiting no abdominal pain no diarrhea and no urinary symptoms. Objective - Vital Signs Vital signs: Vital Signs Temp 97.2 F L 04/20/23 04:00 Pulse 76 04/20/23 09:59 Resp 18 04/20/23 04:00 BP 149/77 04/20/23 04:00 Pulse Ox 97 04/20/23 04:00 FiO2 40 04/17/23 04:38 Intake & Output 04/19/23 04/20/23 04/20/23 18:59 06:59 18:59 Intake Total 600 120 Balance 600 120 Intake: Oral 600 120 Other: Voiding Method Bedside Commode Bedside Commode # Voids 5 5 # Bowel Movements 1 - Exam In general patient is alert and oriented x 3 in no distress HEENT head normocephalic and atraumatic Neck is supple no JVD no goiter no lymphadenopathy no carotid bruit Chest examination reveals a crackles in bilateral bases no wheezing Cardiac exam reveals regular heart sounds S1 and S2 no gallops no murmurs Abdomen is soft nontender no organomegaly with normal bowel sounds Extremity exam reveals no edema no cyanosis or clubbing Neurological examination reveals no gross focal deficits - Labs CBC & Chem 7: 04/19/23 08:30 04/19/23 08:30 Labs: Abnormal Lab Results - Last 24 Hours (Table) 04/19/23 04/19/23 04/19/23 Range/Units 11:18 17:34 21:10 POC Glucose (mg/dL) 246 H 364 H 348 H (70-110) mg/dL 04/20/23 Range/Units 05:56 POC Glucose (mg/dL) 383 H (70-110) mg/dL Microbiology - Last 24 Hours (Table) 04/17/23 03:40 Blood Culture - Preliminary Blood 04/17/23 03:25 Blood Culture - Preliminary Blood 04/17/23 11:26 Gram Stain - Final Sputum Sputum Culture - Final Assessment and Plan Plan: Left lower lobe pneumonia Acute hypoxic respiratory failure, requiring BiPAP use, on top of chronic hypoxic respiratory failure requiring home oxygen use. Acute exacerbation of chronic obstructive pulmonary disease Underlying history of coronary artery disease Underlying history of peripheral vascular disease Abnormal CT angiogram of the chest done last visit 3 weeks ago, revealing suspicious pulmonary nodules and gastric wall thickening Underlying history of hypertension Underlying history of hyperlipidemia Underlying history of diabetes mellitus Continued tobacco abuse At this time patient is admitted to telemetry floor Home medications reviewed and reordered Patient was started on IV Levaquin in the emergency room Pulmonary and infectious disease consultation requested For DVT prophylaxis subcu Lovenox For GI prophylaxis continue Protonix Patient was counseled regarding smoking cessation Will follow closely prognosis is guarded.
[2023-04-20] MEDS: guaiFENesin-Coden 100-10MG/5ML 10 ML CUP PO PRN ×2 (13:32→19:58)
--- NOTE | 2023-04-20 15:47 | P.PN ---
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 On today's evaluation that is 04/18/2023 patient did have resolution of his fever and is afebrile this morning patient is breathing slightly comfortably on 3 L nasal cannula oxygen patient denies having any chest pain continue to have a cough and bring up some sputum no nausea vomiting no abdominal pain or diarrhea. The patient did have white count of 13,000 creatinine 0.80 blood pressure is 1.57, cultures currently pending Objective - Vital Signs Vital signs: Vital Signs Temp 97.8 F 04/18/23 15:25 Pulse 80 04/18/23 16:57 Resp 18 04/18/23 15:25 BP 133/62 04/18/23 15:25 Pulse Ox 96 04/18/23 15:25 FiO2 40 04/17/23 04:38 Intake & Output 04/17/23 04/18/23 04/18/23 18:59 06:59 18:59 Intake Total 140 Output Total 300 Balance -160 Weight 68.039 kg Intake: IV 20 Invasive Line 2 20 Oral 120 Output: Urine 300 Other: Voiding Method Bedside Commode # Voids 2 # Bowel Movements 1 1 - Exam GENERAL DESCRIPTION: An elderly male lying in bed in no distress RESPIRATORY SYSTEM: Unlabored breathing , decreased breath sounds at bases HEART: S1 S2 regular rate and rhythm , ABDOMEN: Soft , no tenderness EXTREMITIES: Right lower extremity swelling redness has decreased - Labs CBC & Chem 7: 04/19/23 08:30 04/19/23 08:30 Labs: Abnormal Lab Results - Last 24 Hours (Table) 04/17/23 04/17/23 04/18/23 Range/Units 20:16 20:18 06:08 WBC (3.8-10.6) k/uL RBC (4.30-5.90) m/uL Hgb (13.0-17.5) gm/dL Hct (39.0-53.0) % MCH (25.0-35.0) pg MCHC (31.0-37.0) g/dL RDW (11.5-15.5) % Neutrophils # (1.3-7.7) k/uL Lymphocytes # (1.0-4.8) k/uL BUN (9-20) mg/dL Glucose (74-99) mg/dL POC Glucose (mg/dL) 324 H 267 H 285 H (70-110) mg/dL Total Protein (6.3-8.2) g/dL Albumin (3.5-5.0) g/dL 04/18/23 04/18/23 04/18/23 Range/Units 06:57 06:57 12:01 WBC 13.0 H (3.8-10.6) k/uL RBC 3.45 L (4.30-5.90) m/uL Hgb 8.4 L (13.0-17.5) gm/dL Hct 28.4 L (39.0-53.0) % MCH 24.3 L (25.0-35.0) pg MCHC 29.5 L (31.0-37.0) g/dL RDW 16.5 H (11.5-15.5) % Neutrophils # 12.3 H (1.3-7.7) k/uL Lymphocytes # 0.3 L (1.0-4.8) k/uL BUN 39 H (9-20) mg/dL Glucose 258 H (74-99) mg/dL POC Glucose (mg/dL) 202 H (70-110) mg/dL Total Protein 5.9 L (6.3-8.2) g/dL Albumin 3.2 L (3.5-5.0) g/dL 04/18/23 Range/Units 16:38 WBC (3.8-10.6) k/uL RBC (4.30-5.90) m/uL Hgb (13.0-17.5) gm/dL Hct (39.0-53.0) % MCH (25.0-35.0) pg MCHC (31.0-37.0) g/dL RDW (11.5-15.5) % Neutrophils # (1.3-7.7) k/uL Lymphocytes # (1.0-4.8) k/uL BUN (9-20) mg/dL Glucose (74-99) mg/dL POC Glucose (mg/dL) 261 H (70-110) mg/dL Total Protein (6.3-8.2) g/dL Albumin (3.5-5.0) g/dL Microbiology - Last 24 Hours (Table) 04/17/23 03:40 Blood Culture - Preliminary Blood 04/17/23 03:25 Blood Culture - Preliminary Blood 04/17/23 11:26 Gram Stain - Preliminary Sputum Assessment and Plan (1) Pneumonia Current Visit: Yes Status: Acute Code(s): J18.9 - PNEUMONIA, UNSPECIFIED ORGANISM SNOMED Code(s): 907095775 Plan: 1patient presented to hospital with sepsis in this patient who did have a fever elevated white count source is likely left lower lobe pneumonia in this patient has been out of hospital will need to cover for resistant Gram negative to be the likely pathogen 2-patient with azithromycin allergy that will limit the number of antibiotic safe to use 3- sputum cultures are currently pending patient did have elevated CRP and a procalcitonin 4-patient to continue with Zosyn 3.375 g every 8 hours while waiting for the culture to be finalized Dictation was produced using [employer] dictation software. please excuse any grammatical, word or spelling errors. Time with Patient: Less than 30
--- NOTE | 2023-04-20 15:50 | P.PN ---
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 On today's evaluation that is 04/20/2023 patient denies any fever or any chills, patient is breathing comfortably on 3 L nasal cannula oxygen patient denies having any chest pain, the patient cough is decreased in intensity and mostly dry in nature patient denies any abdominal pain no nausea no vomiting or diarrhea, feeling better The patient did have white count is down to 12.4 and a creatinine 1.09 as of 04/19/2023 no lab draw today, procalcitonin was 1.57 Objective - Vital Signs Vital signs: Vital Signs Temp 97.7 F 04/20/23 08:00 Pulse 68 04/20/23 13:33 Resp 18 04/20/23 08:00 BP 183/85 04/20/23 08:00 Pulse Ox 98 04/20/23 08:00 FiO2 40 04/17/23 04:38 Intake & Output 04/19/23 04/20/23 04/20/23 18:59 06:59 18:59 Intake Total 600 480 Balance 600 480 Intake: Oral 600 480 Other: Voiding Method Bedside Commode Bedside Commode Bedside Commode # Voids 5 5 10 # Bowel Movements 1 - Exam GENERAL DESCRIPTION: An elderly male lying in bed in no distress RESPIRATORY SYSTEM: Unlabored breathing , decreased breath sounds at bases HEART: S1 S2 regular rate and rhythm , ABDOMEN: Soft , no tenderness EXTREMITIES: Right lower extremity swelling redness has decreased - Labs CBC & Chem 7: 04/19/23 08:30 04/19/23 08:30 Labs: Abnormal Lab Results - Last 24 Hours (Table) 04/19/23 04/19/23 04/20/23 Range/Units 17:34 21:10 05:56 POC Glucose (mg/dL) 364 H 348 H 383 H (70-110) mg/dL 04/20/23 Range/Units 11:52 POC Glucose (mg/dL) 130 H (70-110) mg/dL Microbiology - Last 24 Hours (Table) 04/17/23 03:40 Blood Culture - Preliminary Blood 04/17/23 03:25 Blood Culture - Preliminary Blood 04/17/23 11:26 Gram Stain - Final Sputum Sputum Culture - Final Assessment and Plan (1) Pneumonia Current Visit: Yes Status: Acute Code(s): J18.9 - PNEUMONIA, UNSPECIFIED ORGANISM SNOMED Code(s): 438932086 Plan: 1patient presented to hospital with sepsis in this patient who did have a fever elevated white count source is likely left lower lobe pneumonia in this patient has been out of hospital will need to cover for resistant Gram negative to be the likely pathogen 2-patient with azithromycin allergy that will limit the number of antibiotic safe to use 3- patient did have elevated CRP and a procalcitonin, sputum culture has been negative for resistant pathogen 4-patient has shown s clinical improvement and we will continue with Zosyn 3.375 g every 8 hours however will be able to finish therapy short course of oral Ceftin Dictation was produced using [employer] dictation software. please excuse any grammatical, word or spelling errors. Time with Patient: Less than 30
[2023-04-20 16:38] LABS: Glucose,Whole Blood 236 mg/dL (70-110)
--- NOTE | 2023-04-20 16:42 | P.PN ---
Subjective Progress Note Date: 04/20/23 This is a 72-year-old white male familiar to my service, known to have history of severe COPD, chronic hypoxic respiratory failure, history of pulmonary nodules but he never had follow-up on outpatient basis regarding his pulmonary nodules, history of abnormal gastric wall, and he was supposed to follow-up with Dr. bronson for EGD and he never did. At any rate the patient is here today with mostly symptoms of shortness of breath and could not get his oxygen about 70%. Patient is normally maintained on 2.5 liters at home for his underlying COPD. Patient describes intermittent cough, wheezing, shortness of breath. Recent CT of the chest showed multiple pulmonary nodules questionable metastatic disease, chest x-ray on this admission showed chronic changes with a new left basilar infiltrate/atelectasis. I'm also suspecting some new change noted in the right lower lobe area with interstitial infiltrate noted. WBC count was a bit elevated at 11.7 hemoglobin 9.6. Basic metabolic profile is normal except for potassium of 5.5. Profile is relatively normal. Pro-calcitonin level is 1.57. Patient tested negative for influenza A, influenza B, RSV, and COVID-19. Reevaluated today on 04/18/23, patient is feeling better today, remains in the ER waiting for a bed on the medical floor, continues to have some cough and wheezing, however he feels better overall compared to yesterday. Cough is pro ductive with yellow phlegm, no fever no chills no hemoptysis and no chest pain. Continues to have leukocytosis with WBC count of 13.0 hemoglobin 8.4 basic metabolic profile is normal and renal profile is normal blood sugar is 258., Patient remains on bronchodilators, remains on Zosyn. And on Solu-Medrol Progress note dated 04/19/2023. 72-year-old male admitted with a diagnosis of acute on chronic hypoxemic respiratory failure. The patient is seen today in room 385. He's on 3 L of oxygen. He continues on Zosyn and Levaquin. His pro-calcitonin level was 1.57. The patient has used BiPAP, with settings of 12/6, and 40%. Currently laboratory data includes a white count of 12.4, hemoglobin 8.2, hematocrit 27.5, and a platelet count of 348,000. Sodium 140, potassium 4.3, chlorides 105, CO2 27, BUN 41, creatinine 1.09. Albumin is 2.8. Chest x-ray shows findings of COPD, and bilateral right greater than left infiltrates. The patient is seen today 04/20/2023 in follow-up on the selective care unit. He is currently resting in bed. Awake and alert in no acute distress. He is ma intaining O2 saturation in the 90s on 2 L/m per nasal cannula. His normal saline 20 ML's per hour. Blood cultures revealing no growth. Sputum culture revealed no growth. Glucose 236. He remains on bronchodilators, steroids. Antibiotics in the form of Levaquin and Zosyn. Objective - Vital Signs Vital signs: Vital Signs Temp 97.8 F 04/20/23 12:00 Pulse 55 L 04/20/23 14:00 Resp 18 04/20/23 14:00 BP 176/61 04/20/23 12:00 Pulse Ox 97 04/20/23 12:00 FiO2 40 04/17/23 04:38 Intake & Output 04/19/23 04/20/23 04/20/23 18:59 06:59 18:59 Intake Total 600 480 Balance 600 480 Intake: Oral 600 480 Other: Voiding Method Bedside Commode Bedside Commode Bedside Commode # Voids 5 5 10 # Bowel Movements 1 - Exam GENERAL EXAM: Alert, pleasant 72-year-old male, on 2 L nasal cannula, comfortable in no apparent distress. HEAD: Normocephalic. EYES: Normal reaction of pupils, equal size. NOSE: Clear with pink turbinates. THROAT: No erythema or exudates. NECK: No masses, no JVD. CHEST: No chest wall deformity. LUNGS: Equal air entry with bilateral scattered rhonchi, end expiratory wheeze, diminished. CVS: S1 and S2 normal with no audible murmur, regular rhythm. ABDOMEN: No hepatosplenomegaly, normal bowel sounds, no guarding or rigidity. SPINE: No scoliosis or deformity SKIN: No rashes CENTRAL NERVOUS SYSTEM: No focal deficits, tone is normal in all 4 extremities. EXTREMITIES: Left [id number] amputation. There is no peripheral edema. No clubbing, no cyanosis. Peripheral pulses are intact. - Labs CBC & Chem 7: 04/19/23 08:30 04/19/23 08:30 Labs: Abnormal Lab Results - Last 24 Hours (Table) 04/19/23 04/19/23 04/20/23 Range/Units 17:34 21:10 05:56 POC Glucose (mg/dL) 364 H 348 H 383 H (70-110) mg/dL 04/20/23 Range/Units 11:52 POC Glucose (mg/dL) 130 H (70-110) mg/dL Microbiology - Last 24 Hours (Table) 04/17/23 03:40 Blood Culture - Preliminary Blood 04/17/23 03:25 Blood Culture - Preliminary Blood Assessment and Plan Assessment: Acute on chronic hypoxemic respiratory failure, secondary to COPD exacerbation. Chronic hypoxemic respiratory failure, on home O2. Bilateral community acquired pneumonia, right greater than left. Pro-calcitonin 1.57. Remains on Levaquin and Zosyn History of previous heavy tobacco use. Multiple pulmonary nodules, suspicious for metastatic disease, will need outpatient workup, and outpatient PET scan. Moderate size hiatal hernia. Chronic anemia. Coronary artery disease, status post stent placement. Benign essential hypertension. Peripheral vascular occlusive disease, status post left [id number] amputation. Plan: The patient was seen and evaluated Labs and medications reviewed Continue the current treatment plan Titrate down the FiO2 as tolerated We will continue to follow I have personally seen and examined the patient, performed the documentation and the assessment and plan as written. Number of minutes spent on the visit: 10.
[2023-04-20] MEDS: PRIMIDONE 50 MG TAB PO SCH (19:58)
[2023-04-20] MEDS: LIDOCAINE 4% PATCH TOPICAL SCH (19:58)
[2023-04-20] MEDS: traZODone HCL 50 MG TAB PO SCH (19:58)
[2023-04-20 19:59] LABS: Glucose,Whole Blood 344 mg/dL (70-110)
[2023-04-21] MEDS: PANTOPRAZOLE 40 MG TABLET PO SCH (05:12)
[2023-04-21] MEDS: LEVOFLOXACIN 750MG-D5W PMX 750 MG in DEXTROSE/WATER 1 150ML.BAG IVPB SCH (05:12)
[2023-04-21] MEDS: HYDROcodone/APAP 10-325MG 1 EACH TAB PO PRN ×2 (05:12→11:54)
[2023-04-21] MEDS: methylPREDNISolone SOD SUCCI 125 MG/2 ML VIAL IV SCH ×2 (05:12→11:48)
[2023-04-21 06:22] LABS: Glucose,Whole Blood 375 mg/dL (70-110)
[2023-04-21] MEDS: INSULIN ASPART (NovoLOG) 100 UNIT/ML VIAL SQ SCH ×2 (06:35→11:48)
[2023-04-21] MEDS: SYMBICORT 160-4.5 MCG INHALER INHALATION SCH (08:51)
[2023-04-21] MEDS: IPRATROPIUM-ALBUTEROL 3 ML NEB INHALATION SCH ×2 (08:51→11:42)
[2023-04-21 08:52] LABS: Anisocytosis Slight; Basophils % (A) 0 %; Eosinophils % (A) 0 %; HCT 31.1 % (39.0-53.0); Hypochromasia Marked; Lymphocytes # (A) 0.2 k/uL (1.0-4.8); Lymphocytes % (A) 4 %; MCH 24.2 pg (25.0-35.0); MCHC 28.9 g/dL (31.0-37.0); MCV 83.7 fL (80.0-100.0); Mean Platelet Volume 8.5; Monocytes # (A) 0.2 k/uL (0-1.0); Monocytes % (A) 3 %; Neutrophils # (A) 5.4 k/uL (1.3-7.7); Neutrophils % (A) 93 %; Platelet Count 353 k/uL (150-450); RBC 3.71 m/uL (4.30-5.90); RDW 16.3 % (11.5-15.5); WBC 5.9 k/uL (3.8-10.6)
[2023-04-21] MEDS: METOPROLOL SUCCINATE (ER) 25 MG TAB.ER.24H PO SCH (09:15)
[2023-04-21] MEDS: ESCITALOPRAM 20 MG TAB PO SCH (09:15)
[2023-04-21] MEDS: MEGESTROL 400 MG/10 ML CUP PO SCH (09:15)
[2023-04-21] MEDS: LORATADINE 10 MG TAB PO SCH (09:15)
[2023-04-21] MEDS: CLOPIDOGREL 75 MG TAB PO SCH (09:15)
[2023-04-21] MEDS: TAMSULOSIN 0.4 MG CAP.ER.24H PO SCH (09:15)
[2023-04-21] MEDS: GABAPENTIN 300 MG CAP PO SCH (09:15)
[2023-04-21] MEDS: ENOXAPARIN 40 MG/0.4 ML SYRINGE SQ SCH (09:15)
[2023-04-21] MEDS: ATORVASTATIN 80 MG TAB PO SCH (09:16)
[2023-04-21] MEDS: ASPIRIN 81 MG PO SCH (09:16)
[2023-04-21] MEDS: lisinopriL 20 MG TAB PO SCH (09:16)
[2023-04-21] MEDS: PIPERACILLIN-TAZOBACTAM 3.375 GM in SODIUM CHLORIDE 0.9% 100 ML IVPB SCH (09:16)
[2023-04-21] MEDS: amLODIPine 5 MG TAB PO SCH (09:16)
[2023-04-21] MEDS: DULoxetine HCL 60 MG CAPSULE.DR PO SCH (09:16)
[2023-04-21 09:31] VITALS: RESP 16; TEMP 97.7
[2023-04-21 09:46] LABS: ALT 22 U/L (4-49); AST 20 U/L (17-59); African American GFR (CKD) 82 (>60 ml/min/1.73 sqM); Albumin 2.8 g/dL (3.5-5.0); Alkaline Phosphatase 58 U/L (38-126); Anion Gap 10 mmol/L; Blood Urea Nitrogen 35 mg/dL (9-20); Calcium 8.8 mg/dL (8.4-10.2); Carbon Dioxide 26 mmol/L (22-30); Chloride 102 mmol/L (98-107); Glucose 315 mg/dL (74-99); Non-African American GFR(CKD) 71 (>60 ml/min/1.73 sqM); Potassium 4.5 mmol/L (3.5-5.1); Sodium 138 mmol/L (137-145); Total Bilirubin 0.4 mg/dL (0.2-1.3); Total Protein 5.5 g/dL (6.3-8.2)
--- NOTE | 2023-04-21 10:47 | P.GSCN ---
History of Present Illness Consult date: 04/21/23 History of present illness: This is a moderately debilitated 72-year-old gentleman who has been admitted for an exacerbation of COPD. Is a diabetic. He was smoking up until last year. He is status post left above-knee amputation with chronic contracture. We are seei ng in regards to ulcers of the right lower leg. 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 knee wound + FOR MRSA. History of high left above-knee amputation done approximately 2009. Last Myocardial Infarction Date:: 2003 History of Any Multi-Drug Resistant Organisms: Acinetobacter (MDRO), MRSA Year Discovered:: 04/02/16 MDRO Source:: LT KNEE WOUND Past Surgical History: Heart Catheterization With Stent, Orthopedic Surgery Additional Past Surgical History / Comment(s): STENTS TO LEFT GROIN, LEFT ABOVE THE KNEE AMPUTATION, unsuccessful revascularization left leg, shoulder surgery, surgical debridement of necrotic tissue left scrotal area, LT AKA 03/03/16. left testicle removed. heart stent x1 broken left hip Past Anesthesia/Blood Transfusion Reactions: No Reported Reaction Date of Last Stent Placement:: 2006 Past Psychological History: Depression Smoking Status: Former smoker Past Alcohol Use History: None Reported Past Drug Use History: Marijuana - Past Family History Sister(s) History Unknown: Yes Family Medical History: Cancer Additional Family Medical History / Comment(s): double mastectomy, still surviving Father History Unknown: Yes Family Medical History: No Reported History Mother History Unknown: Yes Family Medical History: No Reported History Additional Family Medical History / Comment(s): hypoglycemia Medications and Allergies Home Medications Medication Instructions Recorded Confirmed Type Aspirin 81 mg PO DAILY 01/14/14 04/17/23 History DULoxetine HCL [Cymbalta] 60 mg PO DAILY 01/14/14 04/17/23 History lisinopriL [Prinivil] 20 mg PO DAILY 01/14/14 04/17/23 History Pantoprazole Sodium [Protonix] 40 mg PO DAILY 06/13/18 04/17/23 History amLODIPine [Norvasc] 5 mg PO DAILY 06/13/18 04/17/23 History Atorvastatin [Lipitor] 80 mg PO DAILY #30 tab 07/20/20 04/17/23 Rx Metoprolol Succinate (ER) [Toprol 25 mg PO DAILY #30 tab.er.24h 07/20/20 04/17/23 Rx XL] Albuterol Sulfate [Proair Hfa] 2 puff INHALATION RT-QID PRN 08/29/21 04/17/23 History Tamsulosin [Flomax] 0.4 mg PO DAILY 08/29/21 04/17/23 History HYDROcodone/APAP 10-325MG [Hustle 1 tab PO Q6HR PRN 07/12/22 04/17/23 History 10-325] Primidone [Mysoline] 25 mg PO HS 07/12/22 04/17/23 History Loratadine [Claritin] 10 mg PO DAILY 08/13/22 04/17/23 History Nitroglycerin Sl Tabs [Nitrostat] 0.4 mg SL Q5M PRN 08/13/22 04/17/23 History Albuterol Nebulized [Ventolin 2.5 mg INHALATION RT-Q6H PRN 03/23/23 04/17/23 History Nebulized] Clotrimazole/Betameth Cream 1 applic TOPICAL DAILY PRN 03/23/23 04/17/23 History [Lotrisone] Escitalopram [Lexapro] 20 mg PO DAILY 03/23/23 04/17/23 History Fluticasone/Umeclidin/Vilanter 1 puff INHALATION RT-DAILY 03/23/23 04/17/23 History [Trelegy Ellipta 200-62.5-25] Gabapentin 600 mg PO TID 03/23/23 04/17/23 History Megestrol Acetate 400 mg PO DAILY 03/23/23 04/17/23 History Clopidogrel [Plavix] 75 mg PO DAILY 30 Days #30 tab 03/26/23 04/17/23 Rx Cephalexin [Keflex] 500 mg PO QID 04/17/23 04/17/23 History traZODone HCL [Desyrel] 50 mg PO HS 04/17/23 04/17/23 History Allergies Allergy/AdvReac Type Severity Reaction Status Date / Time azithromycin [From Zithromax] Allergy Rash/Hives Verified 04/17/23 11:51 Surgical - Exam Osteopathic Statement: *. No significant issues noted on an osteopathic structural exam other than those noted in the History and Physical/Consult. Vital Signs Temp Pulse Resp BP Pulse Ox 100.4 F H 95 40 H 146/67 100 04/17/23 01:25 04/17/23 01:25 04/17/23 01:25 04/17/23 01:25 04/17/23 01:25 - Musculoskeletal The left AKA stump is well healed but has a significant contracture. He has multiple 1 cm scabbed lesions in the right lower leg. He has mild rubor of the lower leg. I feel no pulses. None of the ulcers are weeping. Results - Labs 04/21/23 07:58 04/21/23 07:58 Abnormal Lab Results - Last 24 Hours (Table) 04/20/23 04/20/23 04/20/23 Range/Units 11:52 16:37 19:58 RBC (4.30-5.90) m/uL Hgb (13.0-17.5) gm/dL Hct (39.0-53.0) % MCH (25.0-35.0) pg MCHC (31.0-37.0) g/dL RDW (11.5-15.5) % Lymphocytes # (1.0-4.8) k/uL BUN (9-20) mg/dL Glucose (74-99) mg/dL POC Glucose (mg/dL) 130 H 236 H 344 H (70-110) mg/dL Total Protein (6.3-8.2) g/dL Albumin (3.5-5.0) g/dL 04/21/23 04/21/23 04/21/23 Range/Units 06:20 07:58 07:58 RBC 3.71 L (4.30-5.90) m/uL Hgb 9.0 L (13.0-17.5) gm/dL Hct 31.1 L (39.0-53.0) % MCH 24.2 L (25.0-35.0) pg MCHC 28.9 L (31.0-37.0) g/dL RDW 16.3 H (11.5-15.5) % Lymphocytes # 0.2 L (1.0-4.8) k/uL BUN 35 H (9-20) mg/dL Glucose 315 H (74-99) mg/dL POC Glucose (mg/dL) 375 H (70-110) mg/dL Total Protein 5.5 L (6.3-8.2) g/dL Albumin 2.8 L (3.5-5.0) g/dL Microbiology - Last 24 Hours (Table) 04/17/23 03:40 Blood Culture - Preliminary Blood 04/17/23 03:25 Blood Culture - Preliminary Blood Diabetes panel 04/21/23 Range/Units 07:58 Sodium 138 (137-145) mmol/L Potassium 4.5 (3.5-5.1) mmol/L Chloride 102 (98-107) mmol/L Carbon Dioxide 26 (22-30) mmol/L BUN 35 H (9-20) mg/dL Creatinine 1.04 (0.66-1.25) mg/dL Glucose 315 H (74-99) mg/dL Calcium 8.8 (8.4-10.2) mg/dL AST 20 (17-59) U/L ALT 22 (4-49) U/L Alkaline Phosphatase 58 (38-126) U/L Total Protein 5.5 L (6.3-8.2) g/dL Albumin 2.8 L (3.5-5.0) g/dL Calcium panel 04/21/23 Range/Units 07:58 Calcium 8.8 (8.4-10.2) mg/dL Albumin 2.8 L (3.5-5.0) g/dL Pituitary panel 04/21/23 Range/Units 07:58 Sodium 138 (137-145) mmol/L Potassium 4.5 (3.5-5.1) mmol/L Chloride 102 (98-107) mmol/L Carbon Dioxide 26 (22-30) mmol/L BUN 35 H (9-20) mg/dL Creatinine 1.04 (0.66-1.25) mg/dL Glucose 315 H (74-99) mg/dL Calcium 8.8 (8.4-10.2) mg/dL Adrenal panel 04/21/23 Range/Units 07:58 Sodium 138 (137-145) mmol/L Potassium 4.5 (3.5-5.1) mmol/L Chloride 102 (98-107) mmol/L Carbon Dioxide 26 (22-30) mmol/L BUN 35 H (9-20) mg/dL Creatinine 1.04 (0.66-1.25) mg/dL Glucose 315 H (74-99) mg/dL Calcium 8.8 (8.4-10.2) mg/dL Total Bilirubin 0.4 (0.2-1.3) mg/dL AST 20 (17-59) U/L ALT 22 (4-49) U/L Alkaline Phosphatase 58 (38-126) U/L Total Protein 5.5 L (6.3-8.2) g/dL Albumin 2.8 L (3.5-5.0) g/dL Assessment and Plan (1) 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 As long as there is no drainage and they are not open a topical will not absorb. You could protect these either with simple gauze or with foam and gauze. Over the ulcer recommend assessing his circulatory status with an arterial Doppler. If the Dopplers are abnormal I would recommend vascular surgery consultation. We will be happy to follow with him in wound care if necessary, should the wounds did not progress towards healing.
--- NOTE | 2023-04-21 10:54 | P.DS ---
Providers Date of admission: 04/17/23 03:09 Expected date of discharge: 04/21/23 Attending physician: Fidencio Barrientos Consults: 04/17/23 03:09 Consult Physician Routine Consulting Provider: Patricio Flanagan Consult Reason/Comments: hypoxia Do you want consulting provider notified?: Yes 04/17/23 03:13 Consult Physician Routine Consulting Provider: Armando Davis Consult Reason/Comments: fever Do you want consulting provider notified?: Yes Primary care physician: Fidencio [facility] Course: Diagnosis on discharge: Left lower lobe pneumonia Extensive right lower extremity cellulitis with multiple ulcers Sepsis present on admission Acute hypoxic respiratory failure, requiring BiPAP use, on top of chronic hypoxic respiratory failure requiring home oxygen use. Acute exacerbation of chronic obstructive pulmonary disease Underlying history of coronary artery disease Underlying history of peripheral vascular disease Abnormal CT angiogram of the chest done last visit 3 weeks ago, revealing suspicious pulmonary nodules and gastric wall thickening Underlying history of hypertension Underlying history of hyperlipidemia Underlying history of diabetes mellitus Continued tobacco abuse Hospital course: Baldev Joyce, is a 72-year-old male who presented to [facility] emergency room with a chief complaint of worsening shortness of breath and decreased O2 sat duration down to 70% He was evaluated in the emergency room vital examination on presentation revealed a temperature of 100.4 pulse 95 respiration 14 blood pressure 146/67 pulse ox 100% on BiPAP Laboratory data revealed a white blood count of 11.7 hemoglobin 9.6 platelet count 426 sodium 135 potassium 5.5 chloride 103 BUN 45 creatinine 0.81 Testing in the emergency room revealed chest x-ray done in the emergency room revealed acute left basilar infiltrate. Patient was recently admitted to [facility] about 3 weeks ago for acute exacerbation of COPD, at that time he had a CT angiogram of the chest that revealed evidence of suspicious pulmonary nodules, and evidence of gastric wall thickening. Patient was supposed to follow-up with Dr. Guerin and Dr. Luong as outpatient for further evaluation however he returned to emergency room with worsening shortness of breath. Patient was admitted to medical floor for further evaluation and treatment. Consultation for pulmonary and infectious disease were initiated. On 04/18/2023 patient is alert and oriented 3. Patient reports some improvement shortness of breath remains on IV Solu-Medrol IV Zosyn pulmonary and infectious disease services are following. Current vital signs temp 97.0, heart rate 89, respiratory rate 18, blood pressure 150/95 and pulse ox of 98 percent on 3 L. Patient denies chest pain. Patient denies nausea vomiting or diarrhea. Patient denies any urinary burning or frequency On 04/19/2023 patient was seen and examined on the medical floor he is alert and oriented 3 in no apparent distress he is complaining of cough and shortness of breath he is also complaining of right lower extremity erythema and multiple ulcers otherwise he denies any complaints at this time there is no fever or chills no headache or dizziness no chest pain no nausea or vomiting no abdominal pain no diarrhea and no urinary symptoms. On 04/20/2023 patient was seen and examined on the medical floor he is alert and oriented 3 in no distress, he is still complaining of cough and shortness of breath and complaining of right lower extremity erythema and tenderness, otherwise he denies any complaints there is no fever or chills no headache or dizziness no chest pain no palpitation no nausea or vomiting no abdominal pain no diarrhea and no urinary symptoms. On 04/21/2023 patient was seen and examined on the medical floor he is alert and oriented 3 in no distress, he is still complaining of cough and shortness of breath and complaining of right lower extremity erythema and tenderness, otherwise he denies any complaints there is no fever or chills no headache or dizziness no chest pain no palpitation no nausea or vomiting no abdominal pain no diarrhea and no urinary symptoms. Patient was cleared by pulmonary and infectious disease for discharge, commendation is for a course of Ceftin at the time of discharge. Patient Condition at Discharge: Serious Plan - Discharge Summary Discharge Rx Participant: No New Discharge Prescriptions: New predniSONE 10 mg PO DAILY 12 Days #30 tab cefUROXime axetiL [Cefuroxime] 500 mg PO BID 7 Days #14 tab Ipratropium-Albuterol Nebulize [Duoneb 0.5 mg-3 mg/3 ml Soln] 3 ml INHALATION RT-QID 30 Days #120 each Lidocaine 4% Patch 1 patch TOPICAL DAILY@1999 30 Days #30 patch Budesonide-Formot 160-4.5 Mcg [Symbicort 160-4.5 Mcg Inhaler] 2 puff INHALATION RT-BID 30 Days #1 each Continue Aspirin 81 mg PO DAILY DULoxetine HCL [Cymbalta] 60 mg PO DAILY lisinopriL [Prinivil] 20 mg PO DAILY Pantoprazole Sodium [Protonix] 40 mg PO DAILY amLODIPine [Norvasc] 5 mg PO DAILY Albuterol Sulfate [Proair Hfa] 2 puff INHALATION RT-QID PRN PRN Reason: Shortness Of Breath Primidone [Mysoline] 25 mg PO HS Nitroglycerin Sl Tabs [Nitrostat] 0.4 mg SL Q5M PRN PRN Reason: Chest Pain Escitalopram [Lexapro] 20 mg PO DAILY Clopidogrel [Plavix] 75 mg PO DAILY 30 Days #30 tab traZODone HCL [Desyrel] 50 mg PO HS Atorvastatin [Lipitor] 80 mg PO DAILY #30 tab Metoprolol Succinate (ER) [Toprol XL] 25 mg PO DAILY #30 tab.er.24h Tamsulosin [Flomax] 0.4 mg PO DAILY HYDROcodone/APAP 10-325MG [Comfrey 10-325] 1 tab PO Q6HR PRN PRN Reason: Pain Loratadine [Claritin] 10 mg PO DAILY Megestrol Acetate 400 mg PO DAILY Albuterol Nebulized [Ventolin Nebulized] 2.5 mg INHALATION RT-Q6H PRN PRN Reason: Shortness Of Breath Or Wheezing Gabapentin 600 mg PO TID Fluticasone/Umeclidin/Vilanter [Trelegy Ellipta 200-62.5-25] 1 puff INHALATION RT-DAILY Discontinued Cephalexin [Keflex] 500 mg PO QID Clotrimazole/Betameth Cream [Lotrisone] 1 applic TOPICAL DAILY PRN PRN Reason: Skin Irritation Discharge Medication List Aspirin 81 mg PO DAILY 01/14/14 [History] DULoxetine HCL [Cymbalta] 60 mg PO DAILY 01/14/14 [History] lisinopriL [Prinivil] 20 mg PO DAILY 01/14/14 [History] Pantoprazole Sodium [Protonix] 40 mg PO DAILY 06/13/18 [History] amLODIPine [Norvasc] 5 mg PO DAILY 06/13/18 [History] Atorvastatin [Lipitor] 80 mg PO DAILY #30 tab 07/20/20 [Rx] Metoprolol Succinate (ER) [Toprol XL] 25 mg PO DAILY #30 tab.er.24h 07/20/20 [Rx] Albuterol Sulfate [Proair Hfa] 2 puff INHALATION RT-QID PRN 08/29/21 [History] Tamsulosin [Flomax] 0.4 mg PO DAILY 08/29/21 [History] HYDROcodone/APAP 10-325MG [Comfrey 10-325] 1 tab PO Q6HR PRN 07/12/22 [History] Primidone [Mysoline] 25 mg PO HS 07/12/22 [History] Loratadine [Claritin] 10 mg PO DAILY 08/13/22 [History] Nitroglycerin Sl Tabs [Nitrostat] 0.4 mg SL Q5M PRN 08/13/22 [History] Albuterol Nebulized [Ventolin Nebulized] 2.5 mg INHALATION RT-Q6H PRN 03/23/23 [History] Escitalopram [Lexapro] 20 mg PO DAILY 03/23/23 [History] Fluticasone/Umeclidin/Vilanter [Trelegy Ellipta 200-62.5-25] 1 puff INHALATION RT-DAILY 03/23/23 [History] Gabapentin 600 mg PO TID 03/23/23 [History] Megestrol Acetate 400 mg PO DAILY 03/23/23 [History] Clopidogrel [Plavix] 75 mg PO DAILY 30 Days #30 tab 03/26/23 [Rx] traZODone HCL [Desyrel] 50 mg PO HS 04/17/23 [History] Budesonide-Formot 160-4.5 Mcg [Symbicort 160-4.5 Mcg Inhaler] 2 puff INHALATION RT-BID 30 Days #1 each 04/21/23 [Rx] Ipratropium-Albuterol Nebulize [Duoneb 0.5 mg-3 mg/3 ml Soln] 3 ml INHALATION RT-QID 30 Days #120 each 04/21/23 [Rx] Lidocaine 4% Patch 1 patch TOPICAL DAILY@1999 30 Days #30 patch 04/21/23 [Rx] cefUROXime axetiL [Cefuroxime] 500 mg PO BID 7 Days #14 tab 04/21/23 [Rx] predniSONE 10 mg PO DAILY 12 Days #30 tab 04/21/23 [Rx] Follow up Appointment(s)/Referral(s): Services,[facility] [NON-STAFF] - Floyd,Fidencio, MD [Primary Care Provider] - 1-2 Days Activity/Diet/Wound Care/Special Instructions: Wants WC van ride home at d/c. He is aware of cost.
[2023-04-21 11:15] LABS: Glucose,Whole Blood 348 mg/dL (70-110)
[2023-04-21 11:52] VITALS: BP 122/68; PULSE 80
--- NOTE | 2023-04-21 14:35 | P.PN ---
Subjective Progress Note Date: 04/21/23 Principal diagnosis: Pneumonia, fever. Acute on chronic hypoxic respiratory failure, multifactorial This is a 72-year-old white male familiar to my service, known to have history of severe COPD, chronic hypoxic respiratory failure, history of pulmonary nodules but he never had follow-up on outpatient basis regarding his pulmonary nodules, history of abnormal gastric wall, and he was supposed to follow-up with Dr. bronson for EGD and he never did. At any rate the patient is here today with mostly symptoms of shortness of breath and could not get his oxygen about 70%. Patient is normally maintained on 2.5 liters at home for his underlying COPD. Patient describes intermittent cough, wheezing, shortness of breath. Recent CT of the chest showed multiple pulmonary nodules questionable metastatic disease, chest x-ray on this admission showed chronic changes with a new left basilar infiltrate/atelectasis. I'm also suspecting some new change noted in the right lower lobe area with interstitial infiltrate noted. WBC count was a bit elevated at 11.7 hemoglobin 9.6. Basic metabolic profile is normal except for potassium of 5.5. Profile is relatively normal. Pro-calcitonin level is 1.57. Patient tested negative for influenza A, influenza B, RSV, and COVID-19. Reevaluated today on 04/18/23, patient is feeling better today, remains in the ER waiting for a bed on the medical floor, continues to have some cough and wheezing, however he feels better overall compared to yesterday. Cough is productive with yellow phlegm, no fever no chills no hemoptysis and no chest pain. Continues to have leukocytosis with WBC count of 13.0 hemoglobin 8.4 basic metabolic profile is normal and renal profile is normal blood sugar is 258., Patient remains on bronchodilators, remains on Zosyn. And on Solu-Medrol Progress note dated 04/19/2023. 72-year-old male admitted with a diagnosis of acute on chronic hypoxemic respiratory failure. The patient is seen today in room 385. He's on 3 L of oxygen. He continues on Zosyn and Levaquin. His pro-calcitonin level was 1.57. The patient has used BiPAP, with settings of 12/6, and 40%. Currently laboratory data includes a white count of 12.4, hemoglobin 8.2, hematocrit 27.5, and a platelet count of 348,000. Sodium 140, potassium 4.3, chlorides 105, CO2 27, BUN 41, creatinine 1.09. Albumin is 2.8. Chest x-ray shows findings of COPD, and bilateral right greater than left infiltrates. Progress note dated 04/21/2023. 72-year-old male, admitted with a diagnosis of acute on chronic hypoxemic respiratory failure. The patient is seen today in room 385. The patient's on room air. The patient's not receiving any IV fluids. The patient does continue on Zosyn. Currently laboratory data includes a white count 5.9, hemoglobin 9, hematocrit 31.1, and a normal platelet count. Sodium 138, potassium 4.5, chlorides 102, CO2 26, normal anion gap, BUN 35, creatinine 1.04. Glucose elevated at 348. Calcium 8.8. Objective - Vital Signs Vital signs: Vital Signs Temp 97.7 F 04/21/23 09:17 Pulse 80 04/21/23 11:49 Resp 16 04/21/23 11:49 BP 122/68 04/21/23 11:49 Pulse Ox 93 L 04/21/23 11:49 FiO2 40 04/17/23 04:38 Intake & Output 04/20/23 04/21/23 04/21/23 18:59 06:59 18:59 Intake Total 680 420 Balance 680 420 Intake: Intake, IV Titration 200 Amount Levofloxacin 750Mg-D5w 100 Pmx 750 mg In Dextrose/ Water 1 150ml.bag @ 100 mls/hr IVPB Q24H [facility] Rx#: [id number] Piperacillin-Tazobactam 3 100 .375 gm In Sodium Chloride 0.9% 100 ml @ 25 mls/hr IVPB Q8HR [facility] Rx# :[id number] Oral 480 420 Other: Voiding Method Bedside Commode Bedside Commode Bedside Commode # Voids 7 1 2 # Bowel Movements 2 1 1 - Exam No acute distress, oriented 3. Currently on room air. No respiratory distress. No audible wheezing. HEENT examination is grossly unremarkable. Neck supple. Full range of motion. No adenopathy thyromegaly or neck vein distention. Cardiovascular examination reveals regular rhythm rate. S1-S2 normal. No S3 or S4. No discernible murmur noted. Heart rate 80 bpm. Lungs reveal bilateral rhonchi and wheezes. Abnormal breath sounds are more right-sided. No crackles. Room air saturation is 96%. Abdomen soft bowel sounds are heard. No masses or tenderness. Extremities are intact. Left [id number] amputation. No cyanosis or clubbing. No edema. Skin is without rash or lesion. Neurologic examination is brief but nonfocal. - Labs CBC & Chem 7: 04/21/23 07:58 04/21/23 07:58 Labs: Abnormal Lab Results - Last 24 Hours (Table) 04/20/23 04/20/23 04/21/23 Range/Units 16:37 19:58 06:20 RBC (4.30-5.90) m/uL Hgb (13.0-17.5) gm/dL Hct (39.0-53.0) % MCH (25.0-35.0) pg MCHC (31.0-37.0) g/dL RDW (11.5-15.5) % Lymphocytes # (1.0-4.8) k/uL BUN (9-20) mg/dL Glucose (74-99) mg/dL POC Glucose (mg/dL) 236 H 344 H 375 H (70-110) mg/dL Total Protein (6.3-8.2) g/dL Albumin (3.5-5.0) g/dL 04/21/23 04/21/23 04/21/23 Range/Units 07:58 07:58 11:11 RBC 3.71 L (4.30-5.90) m/uL Hgb 9.0 L (13.0-17.5) gm/dL Hct 31.1 L (39.0-53.0) % MCH 24.2 L (25.0-35.0) pg MCHC 28.9 L (31.0-37.0) g/dL RDW 16.3 H (11.5-15.5) % Lymphocytes # 0.2 L (1.0-4.8) k/uL BUN 35 H (9-20) mg/dL Glucose 315 H (74-99) mg/dL POC Glucose (mg/dL) 348 H (70-110) mg/dL Total Protein 5.5 L (6.3-8.2) g/dL Albumin 2.8 L (3.5-5.0) g/dL Microbiology - Last 24 Hours (Table) 04/17/23 03:40 Blood Culture - Preliminary Blood 04/17/23 03:25 Blood Culture - Preliminary Blood Assessment and Plan Assessment: Acute on chronic hypoxemic respiratory failure, secondary to COPD exacerbation. Chronic hypoxemic respiratory failure, on home O2. Bilateral community acquired pneumonia, right greater than left. History of previous heavy tobacco use. Multiple pulmonary nodules, suspicious for metastatic disease, will need outpatient workup, and outpatient PET scan. Moderate size hiatal hernia. Chronic anemia. Coronary artery disease, status post stent placement. Benign essential hypertension. Peripheral vascular occlusive disease, status post left [id number] amputation. Plan: Plan dated 04/19/2023. The patient continues on antibiotics, in the form of Zosyn and Levaquin. His pro-calcitonin level was elevated at 1.57. He is on 3 L of oxygen. He does use of BiPAP, from time to time, with settings of 12/6, and 40%. Labs, x-rays, medications are reviewed. The patient is counseled about the importance of smoking cessation. He continues on Solu-Medrol, and bronchodilators. He also continues on DVT prophylaxis, GI prophylaxis. Additional recommendations and suggestions are forthcoming. Plan dated 04/21/2023. The patient is seen today in room 385. The patient's currently on room air. He's not receiving any IV fluids. He continues on Zosyn. Labs, x-rays, medications are reviewed. The patient continues on DVT prophylaxis and GI prophylaxis. The patient may be discharged to home later today. Additional recommendations and suggestions are forthcoming. Prognosis is guarded. No additional recommendations are made. We will continue to follow the patient, should he not be discharged. Time with Patient: Less than 30
--- NOTE | 2023-04-27 14:26 | CDI ---
Documentation Clarification Form Date: 04/27/2023 02:07:32 PM From: Spring Macias Phone: Admit Date: 04/17/2023 03:09:00 AM Patient Name: Baldev Joyce Visit Number: [id number] Discharge Date: 04/21/2023 02:56:00 PM ATTENTION: The Clinical Documentation Specialists (CDI) and [facility] Coding Staff appreciate your assistance in clarifying documentation. Please respond to the clarification below the line at the bottom and electronically sign. The CDI & [facility] Coding staff will review the response and follow-up if needed. Please note: Queries are made part of the Legal Health Record. If you have any questions, please contact the author of this message via ITS. Dr. Fidencio ESTRADA cellulitis is documented per Consult 04/17 and DC Summary. Additional clarification regarding the type of cellulitis is requested. 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
--- NOTE | 2023-04-27 18:29 | P.PN ---
Subjective Progress Note Date: 04/19/23 Principal diagnosis: Reason for follow-up is pneumonia Patient is a 72-year-old male with a past medical history significant for COPD hypertension hyperlipidemia did have a osteomyelitis on his gangrene and left [id number] amputation presenting to the hospital for evaluation of increasing shortness of breath and cough, patient did have a low-grade fever elevated white count chest x-ray with a left basilar acute infiltrate tested negative for RSV and COVID. On today's evaluation that is 04/19/2023 patient remains to be afebrile, patient is breathing comfortably on 3 L nasal cannula oxygen patient denies having any chest pain, the patient cough is decreased in intensity with occasional sputum production patient denies any abdominal pain no nausea no vomiting or diarrhea The patient did have white count is down to 12.4 and a creatinine 1.09, procalcitonin was 1.57 Objective - Vital Signs Vital signs: Vital Signs Temp 98.5 F 04/19/23 08:00 Pulse 76 04/19/23 09:24 Resp 18 04/19/23 08:00 BP 152/75 04/19/23 08:00 Pulse Ox 100 04/19/23 08:00 FiO2 40 04/17/23 04:38 Intake & Output 04/18/23 04/19/23 04/19/23 18:59 06:59 18:59 Intake Total 369 240 Output Total 800 Balance -431 240 Intake: IV 20 Invasive Line 2 20 Oral 349 240 Output: Urine 800 Other: Voiding Method Bedside Commode Bedside Commode # Voids 6 # Bowel Movements 1 - Exam GENERAL DESCRIPTION: An elderly male lying in bed in no distress RESPIRATORY SYSTEM: Unlabored breathing , decreased breath sounds at bases HEART: S1 S2 regular rate and rhythm , ABDOMEN: Soft , no tenderness EXTREMITIES: Right lower extremity swelling redness has decreased - Labs CBC & Chem 7: 04/19/23 08:30 04/19/23 08:30 Labs: Abnormal Lab Results - Last 24 Hours (Table) 04/18/23 04/18/23 04/18/23 Range/Units 12:01 16:38 20:20 WBC (3.8-10.6) k/uL RBC (4.30-5.90) m/uL Hgb (13.0-17.5) gm/dL Hct (39.0-53.0) % MCH (25.0-35.0) pg MCHC (31.0-37.0) g/dL RDW (11.5-15.5) % Neutrophils # (1.3-7.7) k/uL Lymphocytes # (1.0-4.8) k/uL BUN (9-20) mg/dL Glucose (74-99) mg/dL POC Glucose (mg/dL) 202 H 261 H 341 H (70-110) mg/dL Total Protein (6.3-8.2) g/dL Albumin (3.5-5.0) g/dL 04/19/23 04/19/23 04/19/23 Range/Units 05:40 08:30 08:30 WBC 12.4 H (3.8-10.6) k/uL RBC 3.32 L (4.30-5.90) m/uL Hgb 8.2 L (13.0-17.5) gm/dL Hct 27.5 L (39.0-53.0) % MCH 24.7 L (25.0-35.0) pg MCHC 29.8 L (31.0-37.0) g/dL RDW 16.4 H (11.5-15.5) % Neutrophils # 11.5 H (1.3-7.7) k/uL Lymphocytes # 0.4 L (1.0-4.8) k/uL BUN 41 H (9-20) mg/dL Glucose 235 H (74-99) mg/dL POC Glucose (mg/dL) 224 H (70-110) mg/dL Total Protein 5.3 L (6.3-8.2) g/dL Albumin 2.8 L (3.5-5.0) g/dL 04/19/23 Range/Units 11:18 WBC (3.8-10.6) k/uL RBC (4.30-5.90) m/uL Hgb (13.0-17.5) gm/dL Hct (39.0-53.0) % MCH (25.0-35.0) pg MCHC (31.0-37.0) g/dL RDW (11.5-15.5) % Neutrophils # (1.3-7.7) k/uL Lymphocytes # (1.0-4.8) k/uL BUN (9-20) mg/dL Glucose (74-99) mg/dL POC Glucose (mg/dL) 246 H (70-110) mg/dL Total Protein (6.3-8.2) g/dL Albumin (3.5-5.0) g/dL Microbiology - Last 24 Hours (Table) 04/17/23 11:26 Gram Stain - Final Sputum Sputum Culture - Final 04/17/23 03:40 Blood Culture - Preliminary Blood 04/17/23 03:25 Blood Culture - Preliminary Blood Assessment and Plan (1) Pneumonia Current Visit: Yes Status: Acute Code(s): J18.9 - PNEUMONIA, UNSPECIFIED ORGANISM SNOMED Code(s): 152748860 Plan: 1patient presented to hospital with sepsis in this patient who did have a fever elevated white count source is likely left lower lobe pneumonia in this patient has been out of hospital will need to cover for resistant Gram negative to be the likely pathogen 2-patient with azithromycin allergy that will limit the number of antibiotic safe to use 3- sputum cultures are currently pending patient did have elevated CRP and a procalcitonin 4-patient did shows clinical improvement and we will continue with Zosyn 3.375 g every 8 hours while waiting for the culture to be finalized Dictation was produced using [employer] dictation software. please excuse any grammatical, word or spelling errors.
--- NOTE | 2023-04-27 18:29 | P.PN ---
Subjective Progress Note Date: 04/21/23 Principal diagnosis: Reason for follow-up is pneumonia Patient is a 72-year-old male with a past medical history significant for COPD hypertension hyperlipidemia did have a osteomyelitis on his gangrene and left [id number]-krj-myyj amputation presenting to the hospital for evaluation of increasing shortness of breath and cough, patient did have a low-grade fever elevated white count chest x-ray with a left basilar acute infiltrate tested negative for RSV and COVID. On today's evaluation that is 04/21/2023 patient remains to be afebrile, patient is breathing comfortably on room air without need for supplemental oxygen, patient denies having any chest pain, the patient cough is decreased in intensity and mostly dry in nature patient denies any abdominal pain no nausea no vomiting or diarrhea, no new symptoms The patient did have white count is down to 5.9 and a creatinine 1.04, procalcitonin was 1.57, cultures negative Objective - Vital Signs Vital signs: Vital Signs Temp 97.7 F 04/21/23 09:17 Pulse 80 04/21/23 11:49 Resp 16 04/21/23 11:49 BP 122/68 04/21/23 11:49 Pulse Ox 93 L 04/21/23 11:49 FiO2 40 04/17/23 04:38 Intake & Output 04/20/23 04/21/23 04/21/23 18:59 06:59 18:59 Intake Total 680 240 Balance 680 240 Intake: Intake, IV Titration 200 Amount Levofloxacin 750Mg-D5w 100 Pmx 750 mg In Dextrose/ Water 1 150ml.bag @ 100 mls/hr IVPB Q24H [facility] Rx#: [id number] Piperacillin-Tazobactam 3 100 .375 gm In Sodium Chloride 0.9% 100 ml @ 25 mls/hr IVPB Q8HR [facility] Rx# :[id number] Oral 480 240 Other: Voiding Method Bedside Commode Bedside Commode Bedside Commode # Voids 7 1 2 # Bowel Movements 2 1 1 - Exam GENERAL DESCRIPTION: An elderly male lying in bed in no distress RESPIRATORY SYSTEM: Unlabored breathing , decreased breath sounds at bases HEART: S1 S2 regular rate and rhythm , ABDOMEN: Soft , no tenderness EXTREMITIES: Right lower extremity swelling redness has decreased - Labs CBC & Chem 7: 04/21/23 07:58 01/10/24 07:58 Labs: Abnormal Lab Results - Last 24 Hours (Table) 04/20/23 04/20/23 04/21/23 Range/Units 16:37 19:58 06:20 RBC (4.30-5.90) m/uL Hgb (13.0-17.5) gm/dL Hct (39.0-53.0) % MCH (25.0-35.0) pg MCHC (31.0-37.0) g/dL RDW (11.5-15.5) % Lymphocytes # (1.0-4.8) k/uL BUN (9-20) mg/dL Glucose (74-99) mg/dL POC Glucose (mg/dL) 236 H 344 H 375 H (70-110) mg/dL Total Protein (6.3-8.2) g/dL Albumin (3.5-5.0) g/dL 04/21/23 04/21/23 04/21/23 Range/Units 07:58 07:58 11:11 RBC 3.71 L (4.30-5.90) m/uL Hgb 9.0 L (13.0-17.5) gm/dL Hct 31.1 L (39.0-53.0) % MCH 24.2 L (25.0-35.0) pg MCHC 28.9 L (31.0-37.0) g/dL RDW 16.3 H (11.5-15.5) % Lymphocytes # 0.2 L (1.0-4.8) k/uL BUN 35 H (9-20) mg/dL Glucose 315 H (74-99) mg/dL POC Glucose (mg/dL) 348 H (70-110) mg/dL Total Protein 5.5 L (6.3-8.2) g/dL Albumin 2.8 L (3.5-5.0) g/dL Microbiology - Last 24 Hours (Table) 04/17/23 03:40 Blood Culture - Preliminary Blood 04/17/23 03:25 Blood Culture - Preliminary Blood Assessment and Plan (1) Pneumonia Status: Acute Code(s): J18.9 - PNEUMONIA, UNSPECIFIED ORGANISM SNOMED Code(s): 899299093 Plan: 1patient presented to hospital with sepsis in this patient who did have a fever elevated white count source is likely left lower lobe pneumonia in this patient has been out of hospital will need to cover for resistant Gram negative to be the likely pathogen 2-patient with azithromycin allergy that will limit the number of antibiotic safe to use 3- patient did have elevated CRP and a procalcitonin, sputum culture has been negative for resistant pathogen 4-patient has shown clinical improvement, white count is normalized culture has been negative resistant pathogen, patient will be able to finish therapy short course of oral Ceftin discussed with STEWARDESS SUPERVISOR for admitting team working on discharge Dictation was produced using [employer] dictation software. please excuse any grammatical, word or spelling errors. Time with Patient: Less than 30
== END 2023-04-21 14:56 | disposition home or self-care (01) | DRG 871 ==
LOC: EC 01:24 → 3SCARD 03:09
PROVIDERS: ADMIT Internal Medicine; ATTEND Internal Medicine
PROC: 5A09357 Assistance with Respiratory Ventilation, Less than 24 Consecutive Hours, Continuous Positive Airway Pressure (ICD-10-PCS; principal; 2023-04-17)
DX: A41.50 Gram-negative sepsis, unspecified (principal); J18.9 Pneumonia, unspecified organism; J96.21 Acute and chronic respiratory failure with hypoxia; J96.22 Acute and chronic respiratory failure with hypercapnia; J44.0 Chronic obstructive pulmonary disease with (acute) lower respiratory infection; J44.1 Chronic obstructive pulmonary disease with (acute) exacerbation; L97.212 Non-pressure chronic ulcer of right calf with fat layer exposed; L03.115 Cellulitis of right lower limb; Z99.81 Dependence on supplemental oxygen; E11.51 Type 2 diabetes mellitus with diabetic peripheral angiopathy without gangrene; I70.232 Atherosclerosis of native arteries of right leg with ulceration of calf; I10 Essential (primary) hypertension; D64.9 Anemia, unspecified; G89.29 Other chronic pain; E78.5 Hyperlipidemia, unspecified; I25.10 Atherosclerotic heart disease of native coronary artery without angina pectoris; R91.8 Other nonspecific abnormal finding of lung field; M19.90 Unspecified osteoarthritis, unspecified site; R53.81 Other malaise; K44.9 Diaphragmatic hernia without obstruction or gangrene; M54.9 Dorsalgia, unspecified; Z89.612 Acquired absence of left leg above knee; Z95.820 Peripheral vascular angioplasty status with implants and grafts; Z71.6 Tobacco abuse counseling; Z79.82 Long term (current) use of aspirin; Z79.51 Long term (current) use of inhaled steroids; Z79.899 Other long term (current) drug therapy; Z79.02 Long term (current) use of antithrombotics/antiplatelets; Z88.1 Allergy status to other antibiotic agents; Z86.14 Personal history of Methicillin resistant Staphylococcus aureus infection; I25.2 Old myocardial infarction; Z95.5 Presence of coronary angioplasty implant and graft; Z90.79 Acquired absence of other genital organ(s); Z87.891 Personal history of nicotine dependence; Z11.52 Encounter for screening for COVID-19; Z87.39 Personal history of other diseases of the musculoskeletal system and connective tissue
CPT/HCPCS: 36415; 71045; 80053; 80202; 83605; 83735; 83880; 84132; 84145; 84484; 85025; 85610; 85730; 87040; 87070; 87205; 87449; 87636; 93005; 94640; 94660; 94760; 96361; 96365; 96366; 96367; 96375; 96376; 99291

== ENCOUNTER 2023-05-31 01:13 | Inpatient (IN) | payer MEDICARE ==
--- NOTE | 2023-05-31 01:31 | ED ---
General Adult HPI - General Source: patient, EMS Mode of arrival: EMS <MaldonadoLaraAustin - Last Filed: 05/31/23 03:16> <Mohan Zhao - Last Filed: 05/31/23 05:23> - General Stated complaint: chest pain Time Seen by Provider: 05/31/23 01:20 - History of Present Illness Initial comments: 72-year-old male with past medical history significant for hypertension, hyperl ipidemia, diabetes, coronary disease with previous PCI of the RCA and intermittent severe disease including LAD, COPD presenting to the ED with a chief complaint of chest pain. Patient states a few days ago started to experience pain primarily of his left arm and shoulder. States in the following days this became worse and yesterday started to experience pressure like sensation on the left side of his chest in addition to this. Reports pain of the chest worsened today prior to presentation to the ED for further evaluation. Patient took 4 sublingual nitro 3 chewable aspirin prior to arrival and states pain significantly improved at this time. No associated shortness of breath. No other complaints at this time. (Austin Okeefe) - Related Data Home Medications Medication Instructions Recorded Confirmed Aspirin 81 mg PO DAILY 01/14/14 04/17/23 DULoxetine HCL [Cymbalta] 60 mg PO DAILY 01/14/14 04/17/23 lisinopriL [Prinivil] 20 mg PO DAILY 01/14/14 04/17/23 Pantoprazole Sodium [Protonix] 40 mg PO DAILY 06/13/18 04/17/23 amLODIPine [Norvasc] 5 mg PO DAILY 06/13/18 04/17/23 Albuterol Sulfate [Proair Hfa] 2 puff INHALATION RT-QID PRN 08/29/21 04/17/23 Tamsulosin [Flomax] 0.4 mg PO DAILY 08/29/21 04/17/23 HYDROcodone/APAP 10-325MG [[place] 1 tab PO Q6HR PRN 07/12/22 04/17/23 10-325] Primidone [Mysoline] 25 mg PO HS 07/12/22 04/17/23 Loratadine [Claritin] 10 mg PO DAILY 08/13/22 04/17/23 Nitroglycerin Sl Tabs [Nitrostat] 0.4 mg SL Q5M PRN 08/13/22 04/17/23 Albuterol Nebulized [Ventolin 2.5 mg INHALATION RT-Q6H PRN 03/23/23 04/17/23 Nebulized] Escitalopram [Lexapro] 20 mg PO DAILY 03/23/23 04/17/23 Fluticasone/Umeclidin/Vilanter 1 puff INHALATION RT-DAILY 03/23/23 04/17/23 [Trelegy Ellipta 200-62.5-25] Gabapentin 600 mg PO TID 03/23/23 04/17/23 Megestrol Acetate 400 mg PO DAILY 03/23/23 04/17/23 traZODone HCL [Desyrel] 50 mg PO HS 04/17/23 04/17/23 Previous Rx's Medication Instructions Recorded Atorvastatin [Lipitor] 80 mg PO DAILY #30 tab 07/20/20 Metoprolol Succinate (ER) [Toprol 25 mg PO DAILY #30 tab.er.24h 07/20/20 XL] Clopidogrel [Plavix] 75 mg PO DAILY 30 Days #30 tab 03/26/23 Budesonide-Formot 160-4.5 Mcg 2 puff INHALATION RT-BID 30 Days 04/21/23 [Symbicort 160-4.5 Mcg Inhaler] #1 each Ipratropium-Albuterol Nebulize 3 ml INHALATION RT-QID 30 Days 04/21/23 [Duoneb 0.5 mg-3 mg/3 ml Soln] #120 each Lidocaine 4% Patch 1 patch TOPICAL DAILY@1999 30 Days 04/21/23 #30 patch cefUROXime axetiL [Cefuroxime] 500 mg PO BID 7 Days #14 tab 04/21/23 predniSONE 10 mg PO DAILY 12 Days #30 tab 04/21/23 Allergies Allergy/AdvReac Type Severity Reaction Status Date / Time azithromycin [From Zithromax] Allergy Rash/Hives Verified 05/31/23 01:17 Review of Systems ROS Other: All systems not noted in ROS Statement are negative. <Austin Okeefe - Last Filed: 05/31/23 03:16> ROS Other: All systems not noted in ROS Statement are negative. <Mohan Zhao - Last Filed: 05/31/23 05:23> ROS Statement: Those systems with pertinent positive or pertinent negative responses have been documented in the HPI. Past Medical History Past Medical History: COPD, Hyperlipidemia, Hypertension, Myocardial Infarction (RI), Osteoarthritis (OA), Vascular Disorder Additional Past Medical History / Comment(s): hx migraines, hx shingles, Ik gangrene 03/2015, chronic back pain, lt. knee wound + FOR MRSA. History of high left above-knee amputation done approximately 2009. Last Myocardial Infarction Date:: 2003 History of Any Multi-Drug Resistant Organisms: Acinetobacter (MDRO), MRSA Date of last positivie culture/infection: 04/02/16 MDRO Source:: LT KNEE WOUND Past Surgical History: Heart Catheterization With Stent, Orthopedic Surgery Additional Past Surgical History / Comment(s): STENTS TO LEFT GROIN, LEFT ABOVE THE KNEE AMPUTATION, unsuccessful revascularization left leg, shoulder surgery, surgical debridement of necrotic tissue left scrotal area, LT AKA 03/03/16. left testicle removed. heart stent x1 broken left hip Past Anesthesia/Blood Transfusion Reactions: No Reported Reaction Date of Last Stent Placement:: 2006 Past Psychological History: Depression Smoking Status: Former smoker Past Alcohol Use History: None Reported Past Drug Use History: Marijuana - Past Family History Sister(s) History Unknown: Yes Family Medical History: Cancer Additional Family Medical History / Comment(s): double mastectomy, still surviving Father History Unknown: Yes Family Medical History: No Reported History Mother History Unknown: Yes Family Medical History: No Reported History Additional Family Medical History / Comment(s): hypoglycemia <Austin Okeefe - Last Filed: 05/31/23 03:16> General Exam General appearance: alert, in no apparent distress, cachectic Eye exam: Present: normal appearance Respiratory exam: Present: wheezes (Bilateral lung michel) Cardiovascular Exam: Present: regular rate, normal rhythm GI/Abdominal exam: Present: soft (No tenderness to palpation. No rebound guarding or rigidity.) Neurological exam: Present: alert, oriented X3 Skin exam: Present: warm, dry <Austin Okeefe - Last Filed: 05/31/23 03:16> Course Vital Signs 05/31/23 05/31/23 01:15 02:30 Temperature 98.8 F Pulse Rate 73 67 Respiratory 16 17 Rate Blood Pressure 131/76 150/68 O2 Sat by Pulse 94 L 98 Oximetry Medical Decision Making - Lab Data Result diagrams: 05/31/23 01:36 05/31/23 01:36 <HardyarabellaAustin - Last Filed: 05/31/23 03:16> - Lab Data Result diagrams: 05/31/23 01:36 05/31/23 01:36 <Mohan Zhao - Last Filed: 05/31/23 05:23> - Medical Decision Making Was pt. sent in by a medical professional or institution (, PA, TOOLS ADMINISTRATOR, urgent care, hospital, or long term...) When possible be specific @ -No Did you speak to anyone other than the patient for history (EMS, parent, family, police, friend...)? What history was obtained from this source @ -No Did you review nursing and triage notes (agree or disagree)? Why? @ -I reviewed and agree with nursing and triage notes Were old charts reviewed (outside hosp., previous admission, EMS record, old EKG, old radiological studies, urgent care reports/EKG's, long term records)? Report findings @ -No old charts were reviewed Differential Diagnosis (chest pain, altered mental status, abdominal pain women, abdominal pain men, vaginal bleeding, weakness, fever, dyspnea, syncope, h eadache, dizziness, GI bleed, back pain, seizure, CVA, palpatations, mental health, musculoskeletal)? @ -Differential Chest Pain: Stable Angina, Unstable Angina, STEMI, NSTEMI Aortic Dissection, Pneumothorax, Musculoskeletal, Esophageal Spasm GERD, Cholecystitis, Pancreatitis, Zoster, this is not meant to be an all-inclusive list. EKG interpreted by me (3pts min.). @ -EKG interpreted me showing a sinus rhythm with premature beats. There are nonspecific ST and T wave changes however limited by artifact. Rate of 73, OR 165, QRS 86, QT/QTc 394/419. X-rays interpreted by me (1pt min.). @ -Chest x-ray interpreted me showing no evidence of acute process. CT interpreted by me (1pt min.). @ -None done U/S interpreted by me (1pt. min.). @ -None done What testing was considered but not performed or refused? (CT, X-rays, U/S, labs)? Why? @ -None What meds were considered but not given or refused? Why? @ -None Did you discuss the management of the patient with other professionals (professionals i.e. Dr., PA, TOOLS ADMINISTRATOR, lab, RT, psych nurse, geriatric social worker, attorney lawyer, teacher, chief juvenile probation officer, dependency case manager)? Give summary @ -No Was smoking cessation discussed for >3mins.? @ -No Was critical care preformed (if so, how long)? @ -No Were there social determinants of health that impacted care today? How? (Homelessness, low income, unemployed, alcoholism, drug addiction, transportation, low edu. Level, literacy, decrease access to med. care, correction, rehab)? @ -No Was there de-escalation of care discussed even if they declined (Discuss DNR or withdrawal of care, Hospice)? DNR status @ -No What co-morbidities impacted this encounter? (DM, HTN, Smoking, COPD, CAD, Cancer, CVA, ARF, Chemo, Hep., AIDS, mental health diagnosis, sleep apnea, morbid obesity)? @ -None Was patient admitted / discharged? Hospital course, mention meds given and route, prescriptions, significant lab abnormalities, going to OR and other p ertinent info. @ -Pending 70-year-old male presenting to the ED as over the last few days has had some left arm and shoulder pain and more recently has now started to develop some associated worsening left-sided chest pain with this. At this time initial troponin unremarkable. Repeat troponin has been ordered. Case signed out to my attending physician, Dr. Zhao for further disposition. (Austin Okeefe) Patient care signed out to me by previous shift physician engineer first assistant, Austin Okeefe. Briefly, patient is a 72-year-old male presents to the emergency [facility] with atypical chest pain typical features. Laboratory evaluation reviewed. Initial troponin is negative. Rest of labs within acceptable limits. Viral testing is negative. Plan at signout was to follow-up with second troponin to determine disposition. Patient was seen and evaluated at the bedside at 5:22 AM. Patient still having some chest pain. His pain is atypical with typical features however he has history of stent. He states that his symptoms today feel like when he was diagnosed with a RI recently. Considering patient's risk factors and history of present illness patient is considered high risk likely benefit from observation admission with cardiology consultation. His serial troponins are all negative. (Mohan Zhao) - Lab Data Lab Results 05/31/23 05/31/23 05/31/23 Range/Units 01:36 01:36 01:36 WBC 11.1 H (3.8-10.6) k/uL RBC 3.66 L (4.30-5.90) m/uL Hgb 8.5 L (13.0-17.5) gm/dL Hct 28.1 L (39.0-53.0) % MCV 76.7 L D (80.0-100.0) fL MCH 23.2 L (25.0-35.0) pg MCHC 30.2 L (31.0-37.0) g/dL RDW 16.8 H (11.5-15.5) % Plt Count 546 H (150-450) k/uL MPV 7.6 Neutrophils % 80 % Lymphocytes % 9 % Monocytes % 7 % Eosinophils % 1 % Basophils % 0 % Neutrophils # 8.9 H (1.3-7.7) k/uL Lymphocytes # 1.0 (1.0-4.8) k/uL Monocytes # 0.7 (0-1.0) k/uL Eosinophils # 0.1 (0-0.7) k/uL Basophils # 0.0 (0-0.2) k/uL Hypochromasia Marked Poikilocytosis Slight Anisocytosis Slight Microcytosis Slight PT 10.7 (10.0-12.5) sec INR 1.0 (<1.2) APTT 26.4 (22.0-30.0) sec Sodium 136 L (137-145) mmol/L Potassium 4.9 (3.5-5.1) mmol/L Chloride 106 (98-107) mmol/L Carbon Dioxide 29 (22-30) mmol/L Anion Gap 1 mmol/L BUN 27 H (9-20) mg/dL Creatinine 0.98 (0.66-1.25) mg/dL Est GFR (CKD-EPI)AfAm 88 (>60 ml/min/1.73 sqM) Est GFR (CKD-EPI)NonAf 76 (>60 ml/min/1.73 sqM) Glucose 125 H (74-99) mg/dL Calcium 8.6 (8.4-10.2) mg/dL Magnesium 1.9 (1.6-2.3) mg/dL Total Bilirubin 0.3 (0.2-1.3) mg/dL AST 27 (17-59) U/L ALT 15 (4-49) U/L Alkaline Phosphatase 79 (38-126) U/L Troponin I (0.000-0.034) ng/mL NT-Pro-B Natriuret Pep 4240 pg/mL Total Protein 5.3 L (6.3-8.2) g/dL Albumin 2.9 L (3.5-5.0) g/dL Influenza Type A (PCR) (Not Detectd) Influenza Type B (PCR) (Not Detectd) RSV (PCR) (Not Detectd) SARS-CoV-2 (PCR) (Not Detectd) 05/31/23 05/31/23 05/31/23 Range/Units 01:36 02:05 03:15 WBC (3.8-10.6) k/uL RBC (4.30-5.90) m/uL Hgb (13.0-17.5) gm/dL Hct (39.0-53.0) % MCV (80.0-100.0) fL MCH (25.0-35.0) pg MCHC (31.0-37.0) g/dL RDW (11.5-15.5) % Plt Count (150-450) k/uL MPV Neutrophils % % Lymphocytes % % Monocytes % % Eosinophils % % Basophils % % Neutrophils # (1.3-7.7) k/uL Lymphocytes # (1.0-4.8) k/uL Monocytes # (0-1.0) k/uL Eosinophils # (0-0.7) k/uL Basophils # (0-0.2) k/uL Hypochromasia Poikilocytosis Anisocytosis Microcytosis PT (10.0-12.5) sec INR (<1.2) APTT (22.0-30.0) sec Sodium (137-145) mmol/L Potassium (3.5-5.1) mmol/L Chloride (98-107) mmol/L Carbon Dioxide (22-30) mmol/L Anion Gap mmol/L BUN (9-20) mg/dL Creatinine (0.66-1.25) mg/dL Est GFR (CKD-EPI)AfAm (>60 ml/min/1.73 sqM) Est GFR (CKD-EPI)NonAf (>60 ml/min/1.73 sqM) Glucose (74-99) mg/dL Calcium (8.4-10.2) mg/dL Magnesium (1.6-2.3) mg/dL Total Bilirubin (0.2-1.3) mg/dL AST (17-59) U/L ALT (4-49) U/L Alkaline Phosphatase (38-126) U/L Troponin I <0.012 <0.012 (0.000-0.034) ng/mL NT-Pro-B Natriuret Pep pg/mL Total Protein (6.3-8.2) g/dL Albumin (3.5-5.0) g/dL Influenza Type A (PCR) Not Detected (Not Detectd) Influenza Type B (PCR) Not Detected (Not Detectd) RSV (PCR) Not Detected (Not Detectd) SARS-CoV-2 (PCR) Not Detected (Not Detectd) 05/31/23 Range/Units 04:29 WBC (3.8-10.6) k/uL RBC (4.30-5.90) m/uL Hgb (13.0-17.5) gm/dL Hct (39.0-53.0) % MCV (80.0-100.0) fL MCH (25.0-35.0) pg MCHC (31.0-37.0) g/dL RDW (11.5-15.5) % Plt Count (150-450) k/uL MPV Neutrophils % % Lymphocytes % % Monocytes % % Eosinophils % % Basophils % % Neutrophils # (1.3-7.7) k/uL Lymphocytes # (1.0-4.8) k/uL Monocytes # (0-1.0) k/uL Eosinophils # (0-0.7) k/uL Basophils # (0-0.2) k/uL Hypochromasia Poikilocytosis Anisocytosis Microcytosis PT (10.0-12.5) sec INR (<1.2) APTT (22.0-30.0) sec Sodium (137-145) mmol/L Potassium (3.5-5.1) mmol/L Chloride (98-107) mmol/L Carbon Dioxide (22-30) mmol/L Anion Gap mmol/L BUN (9-20) mg/dL Creatinine (0.66-1.25) mg/dL Est GFR (CKD-EPI)AfAm (>60 ml/min/1.73 sqM) Est GFR (CKD-EPI)NonAf (>60 ml/min/1.73 sqM) Glucose (74-99) mg/dL Calcium (8.4-10.2) mg/dL Magnesium (1.6-2.3) mg/dL Total Bilirubin (0.2-1.3) mg/dL AST (17-59) U/L ALT (4-49) U/L Alkaline Phosphatase (38-126) U/L Troponin I <0.012 (0.000-0.034) ng/mL NT-Pro-B Natriuret Pep pg/mL Total Protein (6.3-8.2) g/dL Albumin (3.5-5.0) g/dL Influenza Type A (PCR) (Not Detectd) Influenza Type B (PCR) (Not Detectd) RSV (PCR) (Not Detectd) SARS-CoV-2 (PCR) (Not Detectd) Disposition <Austin Okeefe - Last Filed: 05/31/23 03:16> Decision Time: 05:23 <Mohan Zhao - Last Filed: 05/31/23 05:23> Clinical Impression: Chest pain Disposition: ADMITTED IP TO THIS HOSP Condition: Fair Referrals: Fidencio Barrientos MD [Primary Care Provider] - 1-2 days
[2023-05-31 01:47] LABS: Anisocytosis Slight; Basophils % (A) 0 %; Eosinophils # (A) 0.1 k/uL (0-0.7); Eosinophils % (A) 1 %; HCT 28.1 % (39.0-53.0); HGB 8.5 gm/dL (13.0-17.5); Hypochromasia Marked; Lymphocytes % (A) 9 %; MCH 23.2 pg (25.0-35.0); MCHC 30.2 g/dL (31.0-37.0); Mean Platelet Volume 7.6; Microcytosis Slight; Monocytes # (A) 0.7 k/uL (0-1.0); Monocytes % (A) 7 %; Neutrophils # (A) 8.9 k/uL (1.3-7.7); Neutrophils % (A) 80 %; Platelet Count 546 k/uL (150-450); Poikilocytosis Slight; RBC 3.66 m/uL (4.30-5.90); RDW 16.8 % (11.5-15.5); WBC 11.1 k/uL (3.8-10.6)
--- NOTE | 2023-05-31 01:48 | XR ---
EXAM: XR Chest, 2 Views CLINICAL HISTORY: ITS.REASON XR Reason: Chest Pain TECHNIQUE: Frontal and lateral views of the chest. COMPARISON: 04/18/23 FINDINGS: Lungs: Previously seen interstitial infiltrates have largely cleared. No airspace consolidation. Pleural space: Unremarkable. No pleural effusion or pneumothorax. Heart: Unremarkable. No cardiomegaly or pulmonary vascular congestion. Bones/joints: No acute fracture. No dislocation. Degenerative changes both shoulders. IMPRESSION: Previously seen interstitial infiltrates have largely cleared. No airspace consolidation.
[2023-05-31 01:49] LABS: MCV 76.7 fL (80.0-100.0)
[2023-05-31 02:02] LABS: Partial Thromboplastin Time 26.4 sec (22.0-30.0); Prothrombin Time 10.7 sec (10.0-12.5)
[2023-05-31 02:25] LABS: ALT 15 U/L (4-49); AST 27 U/L (17-59); African American GFR (CKD) 88 (>60 ml/min/1.73 sqM); Albumin 2.9 g/dL (3.5-5.0); Alkaline Phosphatase 79 U/L (38-126); Anion Gap 1 mmol/L; Blood Urea Nitrogen 27 mg/dL (9-20); Calcium 8.6 mg/dL (8.4-10.2); Carbon Dioxide 29 mmol/L (22-30); Chloride 106 mmol/L (98-107); Glucose 125 mg/dL (74-99); Magnesium 1.9 mg/dL (1.6-2.3); Non-African American GFR(CKD) 76 (>60 ml/min/1.73 sqM); Potassium 4.9 mmol/L (3.5-5.1); Sodium 136 mmol/L (137-145); Total Bilirubin 0.3 mg/dL (0.2-1.3); Total Protein 5.3 g/dL (6.3-8.2)
[2023-05-31 02:34] LABS: NT-Pro-B-Type Natriuretic Pept 4240 pg/mL
[2023-05-31] MEDS: ONDANSETRON 4 MG/2 ML VIAL IVP STA (05:19)
[2023-05-31] MEDS ORDERED: NITROGLYCERIN SL TABS 0.4 MG TAB SUBLINGUAL PRN ×2 (05:21→07:46)
[2023-05-31] MEDS: PROCHLORPERAZINE INJ 10 MG/2 ML VIAL IVP STA ×2 (05:52→21:54)
[2023-05-31] MEDS ORDERED: traZODone HCL 50 MG TAB PO PRN (07:46)
[2023-05-31] MEDS ORDERED: ALBUTEROL NEBULIZED 2.5 MG/3 ML INHALATION PRN (07:46)
[2023-05-31] MEDS ORDERED: ALBUTEROL HFA INHALER INHALATION PRN (07:46)
[2023-05-31] MEDS ORDERED: NON FORMULARY DRUG (Fluticasone/Umeclidin/Vilanter [Trelegy Ellipta 200-62.5-25] 1 EACH Bl INHALATION SCH (08:00)
[2023-05-31] MEDS: MEGESTROL 400 MG/10 ML CUP PO SCH (08:18)
[2023-05-31] MEDS: GABAPENTIN 300 MG CAP PO SCH (08:19)
[2023-05-31] MEDS: lisinopriL 20 MG TAB PO SCH (08:19)
[2023-05-31] MEDS: LORATADINE 10 MG TAB PO SCH (08:19)
[2023-05-31] MEDS: ASPIRIN 81 MG PO SCH (08:19)
[2023-05-31] MEDS: DULoxetine HCL 60 MG CAPSULE.DR PO SCH (08:19)
[2023-05-31] MEDS: ATORVASTATIN 80 MG TAB PO SCH (08:19)
[2023-05-31] MEDS: amLODIPine 5 MG TAB PO SCH (08:19)
[2023-05-31] MEDS: TAMSULOSIN 0.4 MG CAP.ER.24H PO SCH (08:20)
[2023-05-31] MEDS: METOPROLOL SUCCINATE (ER) 25 MG TAB.ER.24H PO SCH (08:20)
[2023-05-31] MEDS: HYDROcodone/APAP 10-325MG 1 EACH TAB PO PRN (08:20)
[2023-05-31] MEDS: ESCITALOPRAM 20 MG TAB PO SCH (08:20)
[2023-05-31] MEDS: PANTOPRAZOLE 40 MG TABLET PO SCH (08:20)
[2023-05-31] MEDS: IPRATROPIUM-ALBUTEROL 3 ML NEB INHALATION SCH (08:33)
[2023-05-31] MEDS: SYMBICORT 160-4.5 MCG INHALER INHALATION SCH (08:33)
--- NOTE | 2023-05-31 12:30 | P.CRDCN ---
History of Present Illness Consult date: 05/31/23 Consult reason: chest pain History of present illness: History of present illness: This is a 72-year-old male patient of Dr. Palafox with past medical history of coronary artery disease with PCI of the RCA, severe disease involving LAD in the midportion as well as diabetes, hypertension, dyslipidemia, COPD, tobacco use and dependence, PAD status post left [id number] amputation. We have been asked to evaluate the patient for chest pain. Patient presented to the hospital due to chest pain that started yesterday it does not occur with exertion. Pain is worse with coughing. He has had more coughing and wheezing lately. He does not smoke tobacco which he quit 10 months ago but continues to use marijuana. He denies having any fever. He states he has been drinking a lot of coffee. No alcohol use. EKG sinus rhythm with occasional supraventricular premature complexes. Chest x-ray: Previously seen interstitial infiltrates have largely cleared no airspace consolidation. WBC 11.1, hemoglobin 8.5, platelet count 546. INR 1. Sodium 136, potassium 4.9, BUN 27 creatinine 0.90. Troponin negative x 3. proBNP 4240. Liver function tests are normal. Magnesium 1.9. Influenza a, influenza B, RSV, COVID-19 not detected. Home cardiac medications: Amlodipine 5 mg daily, aspirin 81 mg daily, Lipitor 80 mg daily, lisinopril 20 mg daily, Toprol-XL 25 mg daily, Nitrostat as needed. Review Of Systems: At the time of my exam: CONSTITUTIONAL: Denies fever or chills. HEENT: Denies blurred vision, vision changes, or eye pain. Denies hemoptysis CARDIOVASCULAR: + chest pain. Denies orthopnea. Denies PND. Denies palpitations RESPIRATORY: Denies shortness of breath. + Wheeze. GASTROINTESTINAL: Denies abdominal pain. Denies nausea or vomiting. HEMATOLOGIC: Denies bleeding disorders. GENITOURINARY: Denies any blood in urine. SKIN: Denies pruitis. Denies rash. Physical examination: Gen: This is a 72-year-old in no acute distress VS: reviewed HEENT: Head is atraumatic, normocephalic. Pupils equal, round. Sclerae is anicteric. NECK: Supple. No JVD. LUNGS: Bilateral crackles and rhonchi and decreased air exchange. No intercost al retractions. HEART: Regular rate and rhythm. Systolic murmur at the right and left sternal border. ABDOMEN: Soft No tenderness. EXTREMITIES: No pedal edema. No calf tenderness. NEUROLOGICAL: Patient is awake, alert and oriented x3. Assessment: Chest pain noncardiac and reproducible Acute coronary syndrome ruled out Chronic anemia History of coronary artery disease Hypertension Dyslipidemia COPD PAD Remote history of tobacco use Plan: Resume patient's home cardiac medications Anemia may require workup by PCP Obtain 2-D echocardiogram and Doppler study to assess cardiac structure and f unction Further recommendations to follow based upon clinical course Thank you kindly for this consultation. Nurse practitioner note has been reviewed, I agree with documented findings and plan of care. Patient was seen and examined. 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 knee wound + FOR MRSA. 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 Last Myocardial Infarction Date:: 2003 History of Any Multi-Drug Resistant Organisms: Acinetobacter (MDRO), MRSA Date of last positivie culture/infection: 04/02/16 MDRO Source:: LT KNEE WOUND Past Surgical History: Heart Catheterization With Stent, Orthopedic Surgery Additional Past Surgical History / Comment(s): STENTS TO LEFT GROIN, LEFT ABOVE THE KNEE AMPUTATION, unsuccessful revascularization left leg, shoulder surgery, surgical debridement of necrotic tissue left scrotal area, LT AKA 03/03/16. left testicle removed. heart stent x1 broken left hip Past Anesthesia/Blood Transfusion Reactions: No Reported Reaction Date of Last Stent Placement:: 2006 Past Psychological History: Depression Smoking Status: Former smoker Past Alcohol Use History: None Reported Past Drug Use History: Marijuana - Past Family History Sister(s) History Unknown: Yes Family Medical History: Cancer Additional Family Medical History / Comment(s): double mastectomy, still surviving Father History Unknown: Yes Family Medical History: No Reported History Mother History Unknown: Yes Family Medical History: No Reported History Additional Family Medical History / Comment(s): hypoglycemia Medications and Allergies Home Medications Medication Instructions Recorded Confirmed Type Aspirin 81 mg PO DAILY 01/14/14 05/31/23 History DULoxetine HCL [Cymbalta] 60 mg PO DAILY 01/14/14 05/31/23 History lisinopriL [Prinivil] 20 mg PO DAILY 01/14/14 05/31/23 History Pantoprazole Sodium [Protonix] 40 mg PO DAILY 06/13/18 05/31/23 History amLODIPine [Norvasc] 5 mg PO DAILY 06/13/18 05/31/23 History Atorvastatin [Lipitor] 80 mg PO DAILY #30 tab 07/20/20 05/31/23 Rx Metoprolol Succinate (ER) [Toprol 25 mg PO DAILY #30 tab.er.24h 07/20/20 05/31/23 Rx XL] Albuterol Sulfate [Proair Hfa] 2 puff INHALATION RT-QID PRN 08/29/21 05/31/23 History Tamsulosin [Flomax] 0.4 mg PO DAILY 08/29/21 05/31/23 History HYDROcodone/APAP 10-325MG [[place] 1 tab PO Q6HR PRN 07/12/22 05/31/23 History 10-325] Primidone [Mysoline] 25 mg PO HS 07/12/22 05/31/23 History Loratadine [Claritin] 10 mg PO DAILY 08/13/22 05/31/23 History Nitroglycerin Sl Tabs [Nitrostat] 0.4 mg SL Q5M PRN 08/13/22 05/31/23 History Albuterol Nebulized [Ventolin 2.5 mg INHALATION RT-Q6H PRN 03/23/23 05/31/23 History Nebulized] Escitalopram [Lexapro] 20 mg PO DAILY 03/23/23 05/31/23 History Fluticasone/Umeclidin/Vilanter 1 puff INHALATION RT-DAILY 03/23/23 05/31/23 History [Trelegy Ellipta 200-62.5-25] Gabapentin 600 mg PO TID 03/23/23 05/31/23 History Megestrol Acetate 400 mg PO DAILY 03/23/23 05/31/23 History traZODone HCL [Desyrel] 50 mg PO HS PRN 04/17/23 05/31/23 History Budesonide-Formot 160-4.5 Mcg 2 puff INHALATION RT-BID 30 Days 04/21/23 05/31/23 Rx [Symbicort 160-4.5 Mcg Inhaler] #1 each Ipratropium-Albuterol Nebulize 3 ml INHALATION RT-QID 30 Days 04/21/23 05/31/23 Rx [Duoneb 0.5 mg-3 mg/3 ml Soln] #120 each Lidocaine 4% Patch 1 patch TOPICAL DAILY@2000 30 Days 04/21/23 05/31/23 Rx #30 patch Allergies Allergy/AdvReac Type Severity Reaction Status Date / Time azithromycin [From Zithromax] Allergy Rash/Hives Verified 05/31/23 07:00 Physical Exam Vitals: Vital Signs Temp Pulse Resp BP Pulse Ox 05/31/23 05:00 98.9 F 72 19 159/84 98 05/31/23 03:30 64 11 L 152/76 98 05/31/23 02:30 67 17 150/68 98 05/31/23 01:15 98.8 F 73 16 131/76 94 L Intake and Output 05/30/23 05/31/23 05/31/23 22:59 06:59 14:59 Other: Weight 60 kg Results 05/31/23 01:36 05/31/23 01:36 Cardiac Enzymes 05/31/23 05/31/23 05/31/23 Range/Units 01:36 01:36 03:15 AST 27 (17-59) U/L Troponin I <0.012 <0.012 (0.000-0.034) ng/mL 05/31/23 Range/Units 04:29 AST (17-59) U/L Troponin I <0.012 (0.000-0.034) ng/mL Coagulation 05/31/23 Range/Units 01:36 PT 10.7 (10.0-12.5) sec APTT 26.4 (22.0-30.0) sec CBC 05/31/23 Range/Units 01:36 WBC 11.1 H (3.8-10.6) k/uL RBC 3.66 L (4.30-5.90) m/uL Hgb 8.5 L (13.0-17.5) gm/dL Hct 28.1 L (39.0-53.0) % Plt Count 546 H (150-450) k/uL Comprehensive Metabolic Panel 05/31/23 Range/Units 01:36 Sodium 136 L (137-145) mmol/L Potassium 4.9 (3.5-5.1) mmol/L Chloride 106 (98-107) mmol/L Carbon Dioxide 29 (22-30) mmol/L BUN 27 H (9-20) mg/dL Creatinine 0.98 (0.66-1.25) mg/dL Glucose 125 H (74-99) mg/dL Calcium 8.6 (8.4-10.2) mg/dL AST 27 (17-59) U/L ALT 15 (4-49) U/L Alkaline Phosphatase 79 (38-126) U/L Total Protein 5.3 L (6.3-8.2) g/dL Albumin 2.9 L (3.5-5.0) g/dL Current Medications Generic Name Dose Route Start Last Admin Trade Name Freq PRN Reason Stop Dose Admin Aspirin 325 mg 06/01/23 09:00 Aspirin 325 Mg Tab PO DAILY MERRITT Nitroglycerin 0.4 mg 05/31/23 05:21 Nitroglycerin Sl Tabs 0.4 Mg Tab SUBLINGUAL Q5M PRN Chest Pain Intake and Output 05/30/23 05/31/23 05/31/23 22:59 06:59 14:59 Other: Weight 60 kg 05/31/23 01:36 05/31/23 01:36
[2023-05-31] MEDS: ONDANSETRON 4 MG/2 ML VIAL IVP PRN (17:27)
--- NOTE | 2023-05-31 17:53 | CA ---
Transthoracic Echo Report Name: Baldev Joyce Age: 72 Gender: M : 1950 Exam Date: 05/31/2023 14:43 Exam Location: [facility] Ht (in): 75 Wt (lb): 132 Ordering Physician: Tamie Jay Attending/Referring Phys: [id number], Pierre Rn Baby Belme Pacheco, KEVIN Procedure CPT: Indications: LVF Cardiac Hx: Technical Quality: Fair Contrast 1: Total Dose (mL): Contrast 2: Total Dose (mL): MEASUREMENTS (Male / Female) Normal Values 2D ECHO LV Diastolic Diameter PLAX 4.3 cm 4.2 - 5.9 / 3.9 - 5.3 cm LV Systolic Diameter PLAX 2.9 cm IVS Diastolic Thickness 0.9 cm 0.6 - 1.0 / 0.6 - 0.9 cm LVPW Diastolic Thickness 1.1 cm 0.6 - 1.0 / 0.6 - 0.9 cm LV Relative Wall Thickness 0.5 RV Internal Dim ED PLAX 3.9 cm LA Systolic Diameter LX 3.8 cm 3.0 - 4.0 / 2.7 - 3.8 cm M-MODE Aortic Root Diameter MM 3.7 cm AV Cusp Separation MM 1.8 cm DOPPLER MV Area PHT 3.9 cm??? Mitral E Point Velocity 83.9 cm/s Mitral A Point Velocity 40.6 cm/s Mitral E to A Ratio 2.1 MV Deceleration Time 193.2 ms TR Peak Velocity 310.4 cm/s TR Peak Gradient 38.5 mmHg Right Ventricular Systolic Press 43.5 mmHg FINDINGS Left Ventricle Left ventricular ejection fraction is estimated at 55-60 %. Left ventricular cavity size normal. Left ventricular wall thickness normal. No obvious regional wall motion abnormalities. Right Ventricle Moderate right ventricular dilatation. Mild pulmonary hypertension. Right Atrium Right atrium not well visualized. Left Atrium Normal left atrial size. Mitral Valve Structurally normal mitral valve. No mitral stenosis, or prolapse.trace to mild mitral regurgitation. Aortic Valve Trileaflet aortic valve. No aortic valve stenosis or regurgitation. Tricuspid Valve Structurally normal tricuspid valve. Mild tricuspid regurgitation. Pulmonic Valve Structurally normal pulmonic valve. No pulmonic regurgitation. Pericardium No pericardial effusion. Aorta Normal size aortic root and proximal ascending aorta. CONCLUSIONS 1. Normal left ventricle size and systolic function 2. Mild tricuspid regurgitation with mild pulmonary hypertension 3. Trace to mild mitral regurgitation Previewed by: Dr. John Vasquez MD (Electronically Signed) Final Date: 31 May 2023 17:52
--- NOTE | 2023-05-31 18:15 | P.HPIM ---
History of Present Illness H&P Date: 05/31/23 Baldev Joyce, is a 72-year-old male who presented to [facility] emergency room with a chief complaint of chest pain He was evaluated in the emergency room vital examination on presentation revealed a temperature of 98.8 pulse 73 respiration 16 blood pressure 131/76 pulse ox 94% on room air Laboratory data reveals a white blood count of 11.1 hemoglobin 8.5 platelet count 546 troponin 0.012 BNP 4240 Testing in the emergency room revealed EKG revealed sinus rhythm with occasional PVC chest x-ray revealed no acute abnormality Patient was admitted to medical floor for further evaluation and treatment Past Medical History Past Medical History: COPD, Hyperlipidemia, Hypertension, Myocardial Infarction ([place]), Osteoarthritis (OA), Vascular Disorder Additional Past Medical History / Comment(s): hx migraines, hx shingles, 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 knee wound + FOR MRSA. History of high left above-knee amputation done approximately 2009. Last Myocardial Infarction Date:: 2003 History of Any Multi-Drug Resistant Organisms: Acinetobacter (MDRO), MRSA Date of last positivie culture/infection: 04/02/16 MDRO Source:: LT KNEE WOUND Past Surgical History: Heart Catheterization With Stent, Orthopedic Surgery Additional Past Surgical History / Comment(s): STENTS TO LEFT GROIN, LEFT ABOVE THE KNEE AMPUTATION, unsuccessful revascularization left leg, shoulder surgery, surgical debridement of necrotic tissue left scrotal area, LT AKA 03/03/16. left testicle removed. heart stent x1 broken left hip Past Anesthesia/Blood Transfusion Reactions: No Reported Reaction Date of Last Stent Placement:: 2006 Past Psychological History: Depression Smoking Status: Former smoker Past Alcohol Use History: None Reported Past Drug Use History: Marijuana - Past Family History Sister(s) History Unknown: Yes Family Medical History: Cancer Additional Family Medical History / Comment(s): double mastectomy, still surviving Father History Unknown: Yes Family Medical History: No Reported History Mother History Unknown: Yes Family Medical History: No Reported History Additional Family Medical History / Comment(s): hypoglycemia Medications and Allergies Home Medications Medication Instructions Recorded Confirmed Type Aspirin 81 mg PO DAILY 01/14/14 05/31/23 History DULoxetine HCL [Cymbalta] 60 mg PO DAILY 01/14/14 05/31/23 History lisinopriL [Prinivil] 20 mg PO DAILY 01/14/14 05/31/23 History Pantoprazole Sodium [Protonix] 40 mg PO DAILY 06/13/18 05/31/23 History amLODIPine [Norvasc] 5 mg PO DAILY 06/13/18 05/31/23 History Atorvastatin [Lipitor] 80 mg PO DAILY #30 tab 07/20/20 05/31/23 Rx Metoprolol Succinate (ER) [Toprol 25 mg PO DAILY #30 tab.er.24h 07/20/20 05/31/23 Rx XL] Albuterol Sulfate [Proair Hfa] 2 puff INHALATION RT-QID PRN 08/29/21 05/31/23 History Tamsulosin [Flomax] 0.4 mg PO DAILY 08/29/21 05/31/23 History HYDROcodone/APAP 10-325MG [[place] 1 tab PO Q6HR PRN 07/12/22 05/31/23 History 10-325] Primidone [Mysoline] 25 mg PO HS 07/12/22 05/31/23 History Loratadine [Claritin] 10 mg PO DAILY 08/13/22 05/31/23 History Nitroglycerin Sl Tabs [Nitrostat] 0.4 mg SL Q5M PRN 08/13/22 05/31/23 History Albuterol Nebulized [Ventolin 2.5 mg INHALATION RT-Q6H PRN 03/23/23 05/31/23 History Nebulized] Escitalopram [Lexapro] 20 mg PO DAILY 03/23/23 05/31/23 History Fluticasone/Umeclidin/Vilanter 1 puff INHALATION RT-DAILY 03/23/23 05/31/23 History [Trelegy Ellipta 200-62.5-25] Gabapentin 600 mg PO TID 03/23/23 05/31/23 History Megestrol Acetate 400 mg PO DAILY 03/23/23 05/31/23 History traZODone HCL [Desyrel] 50 mg PO HS PRN 04/17/23 05/31/23 History Budesonide-Formot 160-4.5 Mcg 2 puff INHALATION RT-BID 30 Days 04/21/23 05/31/23 Rx [Symbicort 160-4.5 Mcg Inhaler] #1 each Ipratropium-Albuterol Nebulize 3 ml INHALATION RT-QID 30 Days 04/21/23 05/31/23 Rx [Duoneb 0.5 mg-3 mg/3 ml Soln] #120 each Lidocaine 4% Patch 1 patch TOPICAL DAILY@1999 30 Days 04/21/23 05/31/23 Rx #30 patch Allergies Allergy/AdvReac Type Severity Reaction Status Date / Time azithromycin [From Zithromax] Allergy Rash/Hives Verified 05/31/23 07:00 Physical Exam Vitals: Vital Signs Temp Pulse Resp BP Pulse Ox 05/31/23 07:39 98.8 F 92 22 176/100 98 05/31/23 05:00 98.9 F 72 19 159/84 98 05/31/23 03:30 64 11 L 152/76 98 05/31/23 02:30 67 17 150/68 98 05/31/23 01:15 98.8 F 73 16 131/76 94 L Intake and Output 05/30/23 05/31/23 05/31/23 22:59 06:59 14:59 Other: Weight 60 kg In general patient is alert and oriented x 3 in no distress HEENT head normocephalic and atraumatic Neck is supple no JVD no goiter no lymphadenopathy no carotid bruit Chest examination is clear to auscultation no crackles no wheezing Cardiac exam reveals regular heart sounds S1 and S2 no gallops no murmurs Abdomen is soft nontender no organomegaly with normal bowel sounds Extremity exam reveals no edema no cyanosis or clubbing Neurological examination reveals no gross focal deficits Results CBC & Chem 7: 05/31/23 01:36 05/31/23 01:36 Labs: Abnormal Lab Results - Last 24 Hours (Table) 05/31/23 05/31/23 Range/Units 01:36 01:36 WBC 11.1 H (3.8-10.6) k/uL RBC 3.66 L (4.30-5.90) m/uL Hgb 8.5 L (13.0-17.5) gm/dL Hct 28.1 L (39.0-53.0) % MCV 76.7 L D (80.0-100.0) fL MCH 23.2 L (25.0-35.0) pg MCHC 30.2 L (31.0-37.0) g/dL RDW 16.8 H (11.5-15.5) % Plt Count 546 H (150-450) k/uL Neutrophils # 8.9 H (1.3-7.7) k/uL Sodium 136 L (137-145) mmol/L BUN 27 H (9-20) mg/dL Glucose 125 H (74-99) mg/dL Total Protein 5.3 L (6.3-8.2) g/dL Albumin 2.9 L (3.5-5.0) g/dL Assessment and Plan Plan: Episode of chest pain Previous history of coronary artery disease with history of angioplasty and stent placement Anemia hemoglobin 8.5, Will consult general surgery for GI evaluation Underlying history of hypertension Underlying history of hyperlipidemia Underlying history of chronic obstructive pulmonary disease Underlying history of peripheral arterial disease Underlying history of lower extremity amputation, left above-knee amputation Underlying history of migraine headache Underlying history of chronic low back pain Continued tobacco use At this time patient was seen and examined Home medications reviewed and reordered Cardiology consultation requested For DVT prophylaxis subcu Brandix Will follow closely
[2023-05-31] MEDS: ENOXAPARIN 40 MG/0.4 ML SYRINGE SQ SCH (19:44)
[2023-06-01 01:59] LABS: % Iron Saturation 3.45 (15.00-50.00)
[2023-06-01] MEDS: PRIMIDONE 25 MG TAB PO SCH (04:08)
[2023-06-01 08:43] LABS: Basophils # (A) 0.05 X 10*3/uL (0.00-0.10); Basophils % (A) 0.3 %; Eosinophils # (A) 0.03 X 10*3/uL (0.04-0.35); Eosinophils % (A) 0.2 %; HCT 30.7 % (39.6-50.0); HGB 8.8 g/dL (13.0-17.0); Lymphocytes # (A) 1.17 X 10*3/uL (0.90-5.00); Lymphocytes % (A) 7.6 %; MCH 21.7 pg (27.0-32.0); MCHC 28.7 g/dL (32.0-37.0); MCV 75.6 FL (80.0-97.0); Mean Platelet Volume 10.5 FL (9.5-12.2); Monocytes # (A) 1.04 X 10*3/uL (0.20-1.00); Monocytes % (A) 6.7 %; NRBC Per 100 WBC 0 X 10*3/uL (0.00-0.01); Neutrophils # (A) 12.99 X 10*3/uL (1.80-7.70); Neutrophils % (A) 84.2 %; Platelet Count 598 X 10*3/uL (140-440); RBC 4.06 X 10*6/uL (4.40-5.60); RDW 17.2 % (11.5-14.5); WBC 15.43 X 10*3/uL (4.50-10.00)
[2023-06-01 08:50] LABS: ALT 13 U/L (10-49); AST 14 U/L (14-35); Albumin 3.4 g/dL (3.8-4.9); Albumin/Globulin Ratio 1.55 Ratio (1.60-3.17); Alkaline Phosphatase 75 U/L (41-126); BUN/Creat Ratio 29.62 Ratio (12.00-20.00); Blood Urea Nitrogen 23.7 mg/dL (9.0-27.0); Carbon Dioxide 27.3 mmol/L (21.6-31.8); Chloride 103 mmol/L (96-109); Chol/HDL Ratio 1.85 Ratio; Globulin 2.2 g/dL (1.6-3.3); Glucose 163 mg/dL (70-110); LDL Cholesterol,Calculated 26.7 mg/dL (0.0-131.0); Potassium 4.7 mmol/L (3.5-5.5); Sodium 140 mmol/L (135-145); Total Bilirubin 0.3 mg/dL (0.3-1.2); Total Protein 5.6 g/dL (6.2-8.2)
[2023-06-01] MEDS ORDERED: ASPIRIN 325 MG TAB PO SCH (09:00)
--- NOTE | 2023-06-01 09:13 | P.PN ---
Subjective Progress Note Date: 06/01/23 Baldev Joyce, is a 72-year-old male who presented to [facility] emergency room with a chief complaint of chest pain He was evaluated in the emergency room vital examination on presentation revealed a temperature of 98.8 pulse 73 respiration 16 blood pressure 131/76 pulse ox 94% on room air Laboratory data reveals a white blood count of 11.1 hemoglobin 8.5 platelet count 546 troponin 0.012 BNP 4240 Testing in the emergency room revealed EKG revealed sinus rhythm with occasional PVC chest x-ray revealed no acute abnormality Patient was admitted to medical floor for further evaluation and treatment On 06/01/2023 for patients alert and oriented 3. Patient reports improvement with chest pain. 2-D echo completed showing EF 55-60%. Awaiting general surgery consult for anemia. White blood cell elevated today at 15.43. We'll consult infectious disease services and check blood urine and sputum along with chest x-ray. Patient denies chest pain or shortness breath. Patient denies nausea vomiting or diarrhea. Patient denies any urinary burning or frequency Objective - Vital Signs Vital signs: Vital Signs Temp 98.4 F 06/01/23 07:45 Pulse 84 06/01/23 08:14 Resp 15 06/01/23 07:45 BP 169/84 06/01/23 07:45 Pulse Ox 97 06/01/23 08:02 FiO2 Intake & Output 05/31/23 06/01/23 06/01/23 18:59 06:59 18:59 Intake Total 150 Balance 150 Weight 60 kg Intake: Oral 150 Other: Voiding Method Bedside Commode # Voids 1 - Exam In general patient is alert and oriented x 3 in no distress HEENT head normocephalic and atraumatic Neck is supple no JVD no goiter no lymphadenopathy no carotid bruit Chest examination is clear to auscultation no crackles no wheezing Cardiac exam reveals regular heart sounds S1 and S2 no gallops no murmurs Abdomen is soft nontender no organomegaly with normal bowel sounds Extremity exam reveals no edema no cyanosis or clubbing Neurological examination reveals no gross focal deficits - Labs CBC & Chem 7: 06/01/23 05:31 06/01/23 05:31 Labs: Abnormal Lab Results - Last 24 Hours (Table) 05/31/23 06/01/23 06/01/23 Range/Units 01:36 05:31 05:31 WBC 15.43 H (4.50-10.00) X 10*3/uL RBC 4.06 L (4.40-5.60) X 10*6/uL Hgb 8.8 L (13.0-17.0) g/dL Hct 30.7 L (39.6-50.0) % MCV 75.6 L (80.0-97.0) FL MCH 21.7 L (27.0-32.0) pg MCHC 28.7 L (32.0-37.0) g/dL RDW 17.2 H (11.5-14.5) % Plt Count 598 H (140-440) X 10*3/uL Immature Gran # 0.15 H (0.00-0.04) X 10*3/uL Neutrophils # 12.99 H (1.80-7.70) X 10*3/uL Monocytes # 1.04 H (0.20-1.00) X 10*3/uL Eosinophils # 0.03 L (0.04-0.35) X 10*3/uL BUN/Creatinine Ratio 29.62 H (12.00-20.00) Ratio Glucose 163 H (70-110) mg/dL Iron 10 L (65-175) UG/DL % Saturation 3.45 L (15.00-50.00) Total Protein 5.6 L (6.2-8.2) g/dL Albumin 3.4 L (3.8-4.9) g/dL Albumin/Globulin Ratio 1.55 L (1.60-3.17) Ratio Vitamin B12 1036.0 H (200.0-944.0) pg/mL Assessment and Plan Plan: Episode of chest pain leukocytosis. Previous history of coronary artery disease with history of angioplasty and stent placement Anemia hemoglobin 8.5, Will consult general surgery for GI evaluation Underlying history of hypertension Underlying history of hyperlipidemia Underlying history of chronic obstructive pulmonary disease Underlying history of peripheral arterial disease Underlying history of lower extremity amputation, left above-knee amputation Underlying history of migraine headache Underlying history of chronic low back pain Continued tobacco use At this time patient was seen and examined Home medications reviewed and reordered Cardiology consultation requested Infectious disease service is consulted For DVT prophylaxis subcu Liliana Will follow closely
--- NOTE | 2023-06-01 09:30 | P.PN ---
Subjective Progress Note Date: 06/01/23 Consult reason: chest pain History of present illness: History of present illness: This is a 72-year-old male patient of Dr. Palafox with past medical history of coronary artery disease with PCI of the RCA, severe disease involving LAD in the midportion as well as diabetes, hypertension, dyslipidemia, COPD, tobacco use and dependence, PAD status post left [id number] amputation. We have been asked to evaluate the patient for chest pain. Patient presented to the hospital due to chest pain that started yesterday it does not occur with exertion. Pain is worse with coughing. He has had more coughing and wheezing lately. He does not smoke tobacco which he quit 10 months ago but continues to use marijuana. He denies having any fever. He states he has been drinking a lot of coffee. No alcohol use. EKG sinus rhythm with occasional supraventricular premature complexes. Chest x-ray: Previously seen interstitial infiltrates have largely cleared no airspace consolidation. WBC 11.1, hemoglobin 8.5, platelet count 546. INR 1. Sodium 136, potassium 4.9, BUN 27 creatinine 0.90. Troponin negative x 3. proBNP 4240. Liver function tests are normal. Magnesium 1.9. Influenza a, influenza B, RSV, COVID-19 not detected. Home cardiac medications: Amlodipine 5 mg daily, aspirin 81 mg daily, Lipitor 80 mg daily, lisinopril 20 mg daily, Toprol-XL 25 mg daily, Nitrostat as needed. 06/01 Echocardiogram reveals normal left ventricular size and systolic function. Mild tricuspid regurgitation with mild pulmonary hypertension. Trace to mild mitral regurgitation. Results reviewed with the patient. Patient is afebrile, heart rate in the 80s, blood pressure 169/84, pulse ox 97% on 2 L nasal cannula. Repeat blood work reveals WBC 15.4, hemoglobin 8.8, platelet count 598. Electrolytes and renal function are normal. Blood sugar 163. Cholesterol 104, triglycerides 106, LDL 26, HDL 56. Physical examination: Gen: This is a 72-year-old in no acute distress VS: reviewed HEENT: Head is atraumatic, normocephalic. Pupils equal, round. Sclerae is anicteric. NECK: Supple. No JVD. LUNGS: Bilateral wheezing and decreased air exchange. No intercostal retractions. HEART: Regular rate and rhythm. Systolic murmur at the right and left sternal border. ABDOMEN: Soft No tenderness. EXTREMITIES: No pedal edema. No calf tenderness. NEUROLOGICAL: Patient is awake, alert and oriented x3. Assessment: Chest pain noncardiac and reproducible Acute coronary syndrome ruled out Chronic anemia History of coronary artery disease Hypertension Dyslipidemia COPD PAD Remote history of tobacco use Plan: Continue patient's home cardiac medications Anemia, may require workup by PCP No further cardiac workup at this time Cardiology will sign off this case and follow on an as-needed basis. Please reconsult for any new concerns. Patient may follow-up in the office with Dr. Palafox in one to 2 weeks. Nurse practitioner note has been reviewed, I agree with documented findings and plan of care. Patient was seen and examined. Objective - Vital Signs Vital signs: Vital Signs Temp 98.2 F 06/01/23 02:21 Pulse 77 06/01/23 02:21 Resp 15 06/01/23 02:21 BP 126/81 06/01/23 02:21 Pulse Ox 97 06/01/23 05:21 FiO2 Intake & Output 05/31/23 06/01/23 06/01/23 18:59 06:59 18:59 Intake Total 150 Balance 150 Weight 60 kg Intake: Oral 150 Other: Voiding Method Bedside Commode # Voids 1 - Labs CBC & Chem 7: 06/01/23 05:31 06/01/23 05:31 Labs: Abnormal Lab Results - Last 24 Hours (Table) 05/31/23 Range/Units 01:36 Iron 10 L (65-175) UG/DL % Saturation 3.45 L (15.00-50.00) Vitamin B12 1036.0 H (200.0-944.0) pg/mL
--- NOTE | 2023-06-01 10:18 | XR ---
EXAMINATION TYPE: XR chest 2V DATE OF EXAM: 06/01/2023 COMPARISON: 05/31/2023 TECHNIQUE: PA and lateral views submitted. HISTORY: Chest pain FINDINGS: There is an area of increased density in the right hilum. Underlying COPD. There is a nodular appeari ng mass or density in the medial margin of the left upper lobe. There is no overt failure. Small righ t pleural effusion. Diffuse osteopenia, scoliosis, degenerative change spine, and bilateral shoulder arthropathy. IMPRESSION: 1. There is a masslike density overlying the right hilum and within the left upper lobe suspicious fo r neoplasm in the left upper lobe. A previous CT scan didn't demonstrate a mass corresponding to this region. Pneumonia versus neoplasm with regard to the right hilum.
[2023-06-01 11:41] VITALS: BMI 16.5
[2023-06-01] MEDS: LACTULOSE 20 GM/30 ML CUP PO ONE (14:11)
[2023-06-01] MEDS: PEG 3350 (236 GM/BTL) + LYTES 4,000 ML BOTTLE PO ONE (14:11)
--- NOTE | 2023-06-01 14:27 | P.GSCN ---
History of Present Illness Consult date: 06/01/23 History of present illness: CHIEF COMPLAINT: Anemia HISTORY OF PRESENT ILLNESS: This is a 72-year-old male with a history of anemia. Presented to the hospital with complaints of chest pain and left arm pain. Has been seen by cardiology. Acute coronary syndrome ruled out. He denies any abdominal pain. Denies any nausea or vomiting. He has been dealing with const ipation. He reports no blood in the stools. Denies any NSAID use. Denies any blood thinner use. Hemoglobin 8.5 iron low at 10. Last EGD he reports is 2 years ago and colonoscopy as well 2 years ago and patient reports that were unremarkable. 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 knee wound + FOR MRSA. History of high left above-knee amputation done approximately 2009. PAST SURGICAL HISTORY: Heart Catheterization With Stent, Orthopedic Surgery, STENTS TO LEFT GROIN, LEFT ABOVE THE KNEE AMPUTATION, unsuccessful revascularization left leg, shoulder surgery, surgical debridement of necrotic tissue left scrotal area, LT AKA 03/03/16. left testicle removed. heart stent x1 broken left hip MEDICATIONS: See below ALLERGIES: See below SOCIAL HISTORY: No illicit drug use. REVIEW OF SYSTEMS: CONSTITUTIONAL: Denies fever or chills. HEENT: Denies blurred vision, vision changes, or eye pain. Denies hemoptysis CARDIOVASCULAR: Denies chest pain or pressure. RESPIRATORY: No shortness of breath. GASTROINTESTINAL: See HPI for pertinent findings HEMATOLOGIC: Denies bleeding disorders. GENITOURINARY: Denies any blood in urine or increased urinary frequency. SKIN: Denies pruitis. Denies rash. PHYSICAL EXAM: VITAL SIGNS: Reviewed GENERAL: Well-developed in no acute distress. HEENT: No sclera icterus. Extraocular movements grossly intact. Moist buccal mucosa. Head is atraumatic, normocephalic. No nasal drainage. ABDOMEN: Soft. Nondistended. Nontender NEUROLOGIC: Alert and oriented. Cranial nerves II through XII grossly intact. LABORATORY DATA: WBC 11.1 up to 15 Hgb 8.8 platelets 598 sodium is 140 potassium 4.7 creatinine 0.8 Albumin low at 2.9 IMAGING: Chest x-ray masslike density overlying the right hilum and within the left upper lobe suspicious for neoplasm in the left upper lobe. Previous CT scan did not demonstrate mass corresponding to this region pneumonia versus neoplasm with regard to right hilum. ASSESSMENT: 1. Iron deficiency anemia 2. History of chronic anemia PLAN: -Patient scheduled for EGD and colonoscopy tomorrow with Dr. Quinonez -Clear liquid diet today -N.p.o. after midnight -GoLytely bowel prep today with a dose of lactulose -Recommend pulmonary consult for masslike density overlying right hilum -Repeat CBC in a.m. Physician Waiter/[employer] note has been reviewed by physician. Signing provider agrees with the documented findings, assessment, and plan of care. 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 knee wound + FOR MRSA. History of high left above-knee amputation done approximately 2009. Last Myocardial Infarction Date:: 2003 History of Any Multi-Drug Resistant Organisms: Acinetobacter (MDRO), MRSA Year Discovered:: 04/02/16 MDRO Source:: LT KNEE WOUND Past Surgical History: Heart Catheterization With Stent, Orthopedic Surgery Additional Past Surgical History / Comment(s): STENTS TO LEFT GROIN, LEFT ABOVE THE KNEE AMPUTATION, unsuccessful revascularization left leg, shoulder surgery, surgical debridement of necrotic tissue left scrotal area, LT AKA 03/03/16. left testicle removed. heart stent x1 broken left hip Past Anesthesia/Blood Transfusion Reactions: No Reported Reaction Date of Last Stent Placement:: 2006 Smoking Status: Former smoker - Past Family History Sister(s) History Unknown: Yes Family Medical History: Cancer Additional Family Medical History / Comment(s): double mastectomy, still surviving Father History Unknown: Yes Family Medical History: No Reported History Mother History Unknown: Yes Family Medical History: No Reported History Additional Family Medical History / Comment(s): hypoglycemia Medications and Allergies Home Medications Medication Instructions Recorded Confirmed Type Aspirin 81 mg PO DAILY 01/14/14 05/31/23 History DULoxetine HCL [Cymbalta] 60 mg PO DAILY 01/14/14 05/31/23 History lisinopriL [Prinivil] 20 mg PO DAILY 01/14/14 05/31/23 History Pantoprazole Sodium [Protonix] 40 mg PO DAILY 06/13/18 05/31/23 History amLODIPine [Norvasc] 5 mg PO DAILY 06/13/18 05/31/23 History Atorvastatin [Lipitor] 80 mg PO DAILY #30 tab 07/20/20 05/31/23 Rx Metoprolol Succinate (ER) [Toprol 25 mg PO DAILY #30 tab.er.24h 07/20/20 05/31/23 Rx XL] Albuterol Sulfate [Proair Hfa] 2 puff INHALATION RT-QID PRN 08/29/21 05/31/23 History Tamsulosin [Flomax] 0.4 mg PO DAILY 08/29/21 05/31/23 History HYDROcodone/APAP 10-325MG [[place] 1 tab PO Q6HR PRN 07/12/22 05/31/23 History 10-325] Primidone [Mysoline] 25 mg PO HS 07/12/22 05/31/23 History Loratadine [Claritin] 10 mg PO DAILY 08/13/22 05/31/23 History Nitroglycerin Sl Tabs [Nitrostat] 0.4 mg SL Q5M PRN 08/13/22 05/31/23 History Albuterol Nebulized [Ventolin 2.5 mg INHALATION RT-Q6H PRN 03/23/23 05/31/23 History Nebulized] Escitalopram [Lexapro] 20 mg PO DAILY 03/23/23 05/31/23 History Fluticasone/Umeclidin/Vilanter 1 puff INHALATION RT-DAILY 03/23/23 05/31/23 History [Trelegy Ellipta 200-62.5-25] Gabapentin 600 mg PO TID 03/23/23 05/31/23 History Megestrol Acetate 400 mg PO DAILY 03/23/23 05/31/23 History traZODone HCL [Desyrel] 50 mg PO HS PRN 04/17/23 05/31/23 History Budesonide-Formot 160-4.5 Mcg 2 puff INHALATION RT-BID 30 Days 04/21/23 05/31/23 Rx [Symbicort 160-4.5 Mcg Inhaler] #1 each Ipratropium-Albuterol Nebulize 3 ml INHALATION RT-QID 30 Days 04/21/23 05/31/23 Rx [Duoneb 0.5 mg-3 mg/3 ml Soln] #120 each Lidocaine 4% Patch 1 patch TOPICAL DAILY@1999 30 Days 04/21/23 05/31/23 Rx #30 patch Allergies Allergy/AdvReac Type Severity Reaction Status Date / Time azithromycin [From Zithromax] Allergy Rash/Hives Verified 05/31/23 07:00 Surgical - Exam Vital Signs Temp Pulse Resp BP Pulse Ox 98.8 F 73 16 131/76 94 L 05/31/23 01:15 05/31/23 01:15 05/31/23 01:15 05/31/23 01:15 05/31/23 01:15 Results - Labs 06/01/23 05:31 06/01/23 05:31 Abnormal Lab Results - Last 24 Hours (Table) 05/31/23 06/01/23 06/01/23 Range/Units 01:36 05:31 05:31 WBC 15.43 H (4.50-10.00) X 10*3/uL RBC 4.06 L (4.40-5.60) X 10*6/uL Hgb 8.8 L (13.0-17.0) g/dL Hct 30.7 L (39.6-50.0) % MCV 75.6 L (80.0-97.0) FL MCH 21.7 L (27.0-32.0) pg MCHC 28.7 L (32.0-37.0) g/dL RDW 17.2 H (11.5-14.5) % Plt Count 598 H (140-440) X 10*3/uL Immature Gran # 0.15 H (0.00-0.04) X 10*3/uL Neutrophils # 12.99 H (1.80-7.70) X 10*3/uL Monocytes # 1.04 H (0.20-1.00) X 10*3/uL Eosinophils # 0.03 L (0.04-0.35) X 10*3/uL BUN/Creatinine Ratio 29.62 H (12.00-20.00) Ratio Glucose 163 H (70-110) mg/dL Iron 10 L (65-175) UG/DL % Saturation 3.45 L (15.00-50.00) Total Protein 5.6 L (6.2-8.2) g/dL Albumin 3.4 L (3.8-4.9) g/dL Albumin/Globulin Ratio 1.55 L (1.60-3.17) Ratio Vitamin B12 1036.0 H (200.0-944.0) pg/mL Diabetes panel 06/01/23 Range/Units 05:31 Sodium 140 (135-145) mmol/L Potassium 4.7 (3.5-5.5) mmol/L Chloride 103 (96-109) mmol/L Carbon Dioxide 27.3 (21.6-31.8) mmol/L BUN 23.7 (9.0-27.0) mg/dL Creatinine 0.8 (0.6-1.5) mg/dL Glucose 163 H (70-110) mg/dL Calcium 9.0 (8.7-10.3) mg/dL AST 14 (14-35) U/L ALT 13 (10-49) U/L Alkaline Phosphatase 75 (41-126) U/L Total Protein 5.6 L (6.2-8.2) g/dL Albumin 3.4 L (3.8-4.9) g/dL Triglycerides 106.00 (0.00-149.00) mg/dL HDL Cholesterol 56.10 (40.00-60.00) mg/dL Calcium panel 06/01/23 Range/Units 05:31 Calcium 9.0 (8.7-10.3) mg/dL Albumin 3.4 L (3.8-4.9) g/dL Pituitary panel 06/01/23 Range/Units 05:31 Sodium 140 (135-145) mmol/L Potassium 4.7 (3.5-5.5) mmol/L Chloride 103 (96-109) mmol/L Carbon Dioxide 27.3 (21.6-31.8) mmol/L BUN 23.7 (9.0-27.0) mg/dL Creatinine 0.8 (0.6-1.5) mg/dL Glucose 163 H (70-110) mg/dL Calcium 9.0 (8.7-10.3) mg/dL Adrenal panel 06/01/23 Range/Units 05:31 Sodium 140 (135-145) mmol/L Potassium 4.7 (3.5-5.5) mmol/L Chloride 103 (96-109) mmol/L Carbon Dioxide 27.3 (21.6-31.8) mmol/L BUN 23.7 (9.0-27.0) mg/dL Creatinine 0.8 (0.6-1.5) mg/dL Glucose 163 H (70-110) mg/dL Calcium 9.0 (8.7-10.3) mg/dL Total Bilirubin 0.3 (0.3-1.2) mg/dL AST 14 (14-35) U/L ALT 13 (10-49) U/L Alkaline Phosphatase 75 (41-126) U/L Total Protein 5.6 L (6.2-8.2) g/dL Albumin 3.4 L (3.8-4.9) g/dL
[2023-06-01] MEDS: PIPERACILLIN-TAZOBACTAM 3.375 GM in SODIUM CHLORIDE 0.9% 100 ML IVPB SCH (16:54)
--- NOTE | 2023-06-01 21:39 | P.CONS ---
History of Present Illness - Reason for Consult Consult date: 06/01/23 - History of Present Illness Patient is a 72-year-old male with a past medical history significant for hypertension hyperlipidemia COPD [place] osteoarthritis presenting to the hospital for evaluation of chest pain patient symptom has been going on for few days before presented to hospital and has been mostly to the symptoms chest left arm and shoulder area describing it to be more of a pressure sensation mild to m oderate intensity patient complaining of some sublingual nitro and aspirin before coming to the hospital on arrival to the ER the patient was afebrile and no fever has been recorded subsequently patient was not tachycardic or hypotensive did have mild hypoxemia currently on 2 L nasal cannula oxygen patient noticed to have a white count was up to 15.43 today admission white count was 11.1 with a left shift prompting this infectious disease consultation patient currently denies any headache or URI symptoms patient did have resolution of his chest pain denies any shortness of breath he did have a cough mild to moderate intensity with occasional sputum production denies hemoptysis patient denies any nausea no vomiting no abdominal pain or any diarrhea patient did have a chest x-ray concerning for masslike density overlying the right hilum and at the left upper lobe suspicious for neoplasm left upper lobe Past Medical History Past Medical History: COPD, Hyperlipidemia, Hypertension, Myocardial Infarction ([place]), Osteoarthritis (OA), Vascular Disorder Additional Past Medical History / Comment(s): hx migraines, hx shingles, [place] gangrene 03/2015, chronic back pain, lt. knee wound + FOR MRSA. History of high left above-knee amputation done approximately 2009. Last Myocardial Infarction Date:: 2003 History of Any Multi-Drug Resistant Organisms: Acinetobacter (MDRO), MRSA Year Discovered:: 04/02/16 MDRO Source:: LT KNEE WOUND Past Surgical History: Heart Catheterization With Stent, Orthopedic Surgery Additional Past Surgical History / Comment(s): STENTS TO LEFT GROIN, LEFT ABOVE THE KNEE AMPUTATION, unsuccessful revascularization left leg, shoulder surgery, surgical debridement of necrotic tissue left scrotal area, LT AKA 03/03/16. left testicle removed. heart stent x1 broken left hip Past Anesthesia/Blood Transfusion Reactions: No Reported Reaction Date of Last Stent Placement:: 2006 Smoking Status: Former smoker - Past Family History Sister(s) History Unknown: Yes Family Medical History: Cancer Additional Family Medical History / Comment(s): double mastectomy, still surv iving Father History Unknown: Yes Family Medical History: No Reported History Mother History Unknown: Yes Family Medical History: No Reported History Additional Family Medical History / Comment(s): hypoglycemia Medications and Allergies Home Medications Medication Instructions Recorded Confirmed Type Aspirin 81 mg PO DAILY 01/14/14 05/31/23 History DULoxetine HCL [Cymbalta] 60 mg PO DAILY 01/14/14 05/31/23 History lisinopriL [Prinivil] 20 mg PO DAILY 01/14/14 05/31/23 History Pantoprazole Sodium [Protonix] 40 mg PO DAILY 06/13/18 05/31/23 History amLODIPine [Norvasc] 5 mg PO DAILY 06/13/18 05/31/23 History Atorvastatin [Lipitor] 80 mg PO DAILY #30 tab 07/20/20 05/31/23 Rx Metoprolol Succinate (ER) [Toprol 25 mg PO DAILY #30 tab.er.24h 07/20/20 05/31/23 Rx XL] Albuterol Sulfate [Proair Hfa] 2 puff INHALATION RT-QID PRN 08/29/21 05/31/23 History Tamsulosin [Flomax] 0.4 mg PO DAILY 08/29/21 05/31/23 History HYDROcodone/APAP 10-325MG [[place] 1 tab PO Q6HR PRN 07/12/22 05/31/23 History 10-325] Primidone [Mysoline] 25 mg PO HS 07/12/22 05/31/23 History Loratadine [Claritin] 10 mg PO DAILY 08/13/22 05/31/23 History Nitroglycerin Sl Tabs [Nitrostat] 0.4 mg SL Q5M PRN 08/13/22 05/31/23 History Albuterol Nebulized [Ventolin 2.5 mg INHALATION RT-Q6H PRN 03/23/23 05/31/23 History Nebulized] Escitalopram [Lexapro] 20 mg PO DAILY 03/23/23 05/31/23 History Fluticasone/Umeclidin/Vilanter 1 puff INHALATION RT-DAILY 03/23/23 05/31/23 History [Trelegy Ellipta 200-62.5-25] Gabapentin 600 mg PO TID 03/23/23 05/31/23 History Megestrol Acetate 400 mg PO DAILY 03/23/23 05/31/23 History traZODone HCL [Desyrel] 50 mg PO HS PRN 04/17/23 05/31/23 History Budesonide-Formot 160-4.5 Mcg 2 puff INHALATION RT-BID 30 Days 04/21/23 05/31/23 Rx [Symbicort 160-4.5 Mcg Inhaler] #1 each Ipratropium-Albuterol Nebulize 3 ml INHALATION RT-QID 30 Days 04/21/23 05/31/23 Rx [Duoneb 0.5 mg-3 mg/3 ml Soln] #120 each Lidocaine 4% Patch 1 patch TOPICAL DAILY@1999 30 Days 04/21/23 05/31/23 Rx #30 patch Allergies Allergy/AdvReac Type Severity Reaction Status Date / Time azithromycin [From Zithromax] Allergy Rash/Hives Verified 05/31/23 07:00 Physical Exam Vitals: Vital Signs Temp Pulse Pulse Pulse Resp BP BP 06/01/23 08:14 84 06/01/23 08:02 82 06/01/23 07:45 98.4 F 91 15 06/01/23 05:21 06/01/23 02:21 98.2 F 77 15 126/81 06/01/23 02:00 84 06/01/23 00:22 98.8 F 93 15 159/72 05/31/23 22:00 83 18 107/80 05/31/23 20:54 84 05/31/23 20:39 90 05/31/23 16:33 82 18 158/67 05/31/23 16:00 85 18 138/89 05/31/23 15:07 75 05/31/23 15:00 80 18 122/61 05/31/23 14:58 78 05/31/23 13:00 78 18 125/97 05/31/23 11:53 74 22 123/67 05/31/23 11:35 81 05/31/23 11:26 72 BP Pulse Ox 06/01/23 08:14 06/01/23 08:02 97 06/01/23 07:45 169/84 97 06/01/23 05:21 97 06/01/23 02:21 98 06/01/23 02:00 06/01/23 00:22 95 05/31/23 22:00 97 05/31/23 20:54 05/31/23 20:39 05/31/23 16:33 100 05/31/23 16:00 100 05/31/23 15:07 05/31/23 15:00 96 05/31/23 14:58 05/31/23 13:00 96 05/31/23 11:53 100 05/31/23 11:35 05/31/23 11:26 Intake and Output 05/31/23 06/01/23 06/01/23 22:59 06:59 14:59 Intake Total 150 118 Balance 150 118 Intake: Oral 150 118 Other: Voiding Method Bedside Commode # Voids 1 Weight 60 kg Results CBC & Chem 7: 06/01/23 05:31 06/01/23 05:31 Labs: Abnormal Lab Results - Last 24 Hours (Table) 05/31/23 06/01/23 06/01/23 Range/Units 01:36 05:31 05:31 WBC 15.43 H (4.50-10.00) X 10*3/uL RBC 4.06 L (4.40-5.60) X 10*6/uL Hgb 8.8 L (13.0-17.0) g/dL Hct 30.7 L (39.6-50.0) % MCV 75.6 L (80.0-97.0) FL MCH 21.7 L (27.0-32.0) pg MCHC 28.7 L (32.0-37.0) g/dL RDW 17.2 H (11.5-14.5) % Plt Count 598 H (140-440) X 10*3/uL Immature Gran # 0.15 H (0.00-0.04) X 10*3/uL Neutrophils # 12.99 H (1.80-7.70) X 10*3/uL Monocytes # 1.04 H (0.20-1.00) X 10*3/uL Eosinophils # 0.03 L (0.04-0.35) X 10*3/uL BUN/Creatinine Ratio 29.62 H (12.00-20.00) Ratio Glucose 163 H (70-110) mg/dL Iron 10 L (65-175) UG/DL % Saturation 3.45 L (15.00-50.00) Total Protein 5.6 L (6.2-8.2) g/dL Albumin 3.4 L (3.8-4.9) g/dL Albumin/Globulin Ratio 1.55 L (1.60-3.17) Ratio Vitamin B12 1036.0 H (200.0-944.0) pg/mL Assessment and Plan Plan: 1patient presented to hospital with chest pain and this patient was noticed to have elevated white count patient also have a cough abnormal chest x-ray concerning for possible pneumonia to be the likely etiology 2-we will obtain sputum for Gram stain and culture check a CRP and procalcitonin 3-empirically on Zosyn while waiting for the workup to be completed We will follow on clinical condition and cultures to further adjust medication if needed Thank you for this consultation we will follow the patient along with you Dictation was produced using [employer] dictation software. please excuse any grammatical, word or spelling errors. Time with Patient: Greater than 30
[2023-06-02 08:34] LABS: Appearance,Urine Clear (Clear); Bilirubin,Urine Negative (Negative); Blood,Urine Negative (Negative); Color,Urine Light Yellow; Glucose,Urine (UA) Negative (Negative); Ketones,Urine Negative (Negative); Leukocyte Esterase,Urine Negative (Negative); Nitrite,Urine Negative (Negative); PH, Urine 5.5 (5.0-8.0); Protein,Urine Negative (Negative); Specific Gravity,Urine 1.018 (1.001-1.035); Urobilinogen,Urine <2.0 mg/dL (<2.0)
[2023-06-02 08:43] LABS: Basophils # (A) 0.05 X 10*3/uL (0.00-0.10); Basophils % (A) 0.3 %; Eosinophils # (A) 0.13 X 10*3/uL (0.04-0.35); Eosinophils % (A) 0.8 %; HCT 29.5 % (39.6-50.0); HGB 8.3 g/dL (13.0-17.0); Lymphocytes # (A) 0.79 X 10*3/uL (0.90-5.00); MCH 21.7 pg (27.0-32.0); MCHC 28.1 g/dL (32.0-37.0); MCV 77.2 FL (80.0-97.0); Mean Platelet Volume 10.7 FL (9.5-12.2); Monocytes % (A) 6.3 %; NRBC Per 100 WBC 0 X 10*3/uL (0.00-0.01); Neutrophils # (A) 13.72 X 10*3/uL (1.80-7.70); Platelet Count 566 X 10*3/uL (140-440); RBC 3.82 X 10*6/uL (4.40-5.60); RDW 17.2 % (11.5-14.5); WBC 15.78 X 10*3/uL (4.50-10.00)
[2023-06-02 09:17] LABS: ALT 15 U/L (10-49); AST 16 U/L (14-35); Albumin 3.2 g/dL (3.8-4.9); Albumin/Globulin Ratio 1.39 Ratio (1.60-3.17); Alkaline Phosphatase 71 U/L (41-126); BUN/Creat Ratio 23.38 Ratio (12.00-20.00); Blood Urea Nitrogen 18.7 mg/dL (9.0-27.0); Calcium 8.7 mg/dL (8.7-10.3); Carbon Dioxide 27.9 mmol/L (21.6-31.8); Chloride 100 mmol/L (96-109); Globulin 2.3 g/dL (1.6-3.3); Glucose 138 mg/dL (70-110); Potassium 4.3 mmol/L (3.5-5.5); Sodium 140 mmol/L (135-145); Total Bilirubin 0.4 mg/dL (0.3-1.2); Total Protein 5.5 g/dL (6.2-8.2)
--- NOTE | 2023-06-02 09:58 | P.PN ---
Subjective Progress Note Date: 06/02/23 Baldev Joyce, is a 72-year-old male who presented to [facility] emergency room with a chief complaint of chest pain He was evaluated in the emergency room vital examination on presentation revealed a temperature of 98.8 pulse 73 respiration 16 blood pressure 131/76 pulse ox 94% on room air Laboratory data reveals a white blood count of 11.1 hemoglobin 8.5 platelet count 546 troponin 0.012 BNP 4240 Testing in the emergency room revealed EKG revealed sinus rhythm with occasional PVC chest x-ray revealed no acute abnormality Patient was admitted to medical floor for further evaluation and treatment On 06/01/2023 for patients alert and oriented 3. Patient reports improvement with chest pain. 2-D echo completed showing EF 55-60%. Awaiting general surgery consult for anemia. White blood cell elevated today at 15.43. We'll consult infectious disease services and check blood urine and sputum along with chest x-ray. Patient denies chest pain or shortness breath. Patient denies nausea vomiting or diarrhea. Patient denies any urinary burning or frequency On 06/02/2023 patients alert and oriented 3. Plans today per surgical services EGD and colonoscopy. Pulmonary services also consulted for abnormal chest x- ray. Patient started on IV Zosyn per infectious disease. At this time patient denies chest pain or shortness of breath. Patient denies nausea vomiting or d iarrhea. Patient denies any urinary burning or frequency. Objective - Vital Signs Vital signs: Vital Signs Temp 98.3 F 06/02/23 07:00 Pulse 76 06/02/23 09:21 Resp 16 06/02/23 07:00 BP 169/75 06/02/23 07:00 Pulse Ox 97 06/02/23 09:13 FiO2 Intake & Output 06/01/23 06/02/23 06/02/23 18:59 06:59 18:59 Intake Total 236 Balance 236 Weight 60 kg Intake: Oral 236 Other: Voiding Method Bedside Commode Urinal # Voids 1 0 # Bowel Movements 1 4 - Exam In general patient is alert and oriented x 3 in no distress HEENT head normocephalic and atraumatic Neck is supple no JVD no goiter no lymphadenopathy no carotid bruit Chest examination is clear to auscultation no crackles no wheezing Cardiac exam reveals regular heart sounds S1 and S2 no gallops no murmurs Abdomen is soft nontender no organomegaly with normal bowel sounds Extremity exam reveals no edema no cyanosis or clubbing Neurological examination reveals no gross focal deficits - Labs CBC & Chem 7: 06/02/23 06:22 06/02/23 06:22 Labs: Abnormal Lab Results - Last 24 Hours (Table) 06/01/23 06/01/23 06/02/23 Range/Units 05:30 05:30 06:22 WBC 15.78 H (4.50-10.00) X 10*3/uL RBC 3.82 L (4.40-5.60) X 10*6/uL Hgb 8.3 L (13.0-17.0) g/dL Hct 29.5 L (39.6-50.0) % MCV 77.2 L (80.0-97.0) FL MCH 21.7 L (27.0-32.0) pg MCHC 28.1 L (32.0-37.0) g/dL RDW 17.2 H (11.5-14.5) % Plt Count 566 H (140-440) X 10*3/uL Immature Gran # 0.09 H (0.00-0.04) X 10*3/uL Neutrophils # 13.72 H (1.80-7.70) X 10*3/uL Lymphocytes # 0.79 L (0.90-5.00) X 10*3/uL Anion Gap (4.00-12.00) mmol/L BUN/Creatinine Ratio (12.00-20.00) Ratio Glucose (70-110) mg/dL C-Reactive Protein 7.3 H (<1.0) mg/dL Total Protein (6.2-8.2) g/dL Albumin (3.8-4.9) g/dL Albumin/Globulin Ratio (1.60-3.17) Ratio Procalcitonin 0.14 H (0.02-0.09) ng/mL 06/02/23 Range/Units 06:22 WBC (4.50-10.00) X 10*3/uL RBC (4.40-5.60) X 10*6/uL Hgb (13.0-17.0) g/dL Hct (39.6-50.0) % MCV (80.0-97.0) FL MCH (27.0-32.0) pg MCHC (32.0-37.0) g/dL RDW (11.5-14.5) % Plt Count (140-440) X 10*3/uL Immature Gran # (0.00-0.04) X 10*3/uL Neutrophils # (1.80-7.70) X 10*3/uL Lymphocytes # (0.90-5.00) X 10*3/uL Anion Gap 12.10 H (4.00-12.00) mmol/L BUN/Creatinine Ratio 23.38 H (12.00-20.00) Ratio Glucose 138 H (70-110) mg/dL C-Reactive Protein (<1.0) mg/dL Total Protein 5.5 L (6.2-8.2) g/dL Albumin 3.2 L (3.8-4.9) g/dL Albumin/Globulin Ratio 1.39 L (1.60-3.17) Ratio Procalcitonin (0.02-0.09) ng/mL Assessment and Plan Assessment: Episode of chest pain leukocytosis. Abnormal chest x-ray. Previous history of coronary artery disease with history of angioplasty and stent placement Anemia hemoglobin 8.5, Will consult general surgery for GI evaluation Underlying history of hypertension Underlying history of hyperlipidemia Underlying history of chronic obstructive pulmonary disease Underlying history of peripheral arterial disease Underlying history of lower extremity amputation, left above-knee amputation Underlying history of migraine headache Underlying history of chronic low back pain Continued tobacco use At this time patient was seen and examined Home medications reviewed and reordered Plans for EGD and colonoscopy on 06/02/2023 Patient started on IV Zosyn Cardiology, surgical services, infectious disease and pulmonary service is cons ulted For DVT prophylaxis subcu Lovenox Will follow closely
[2023-06-02] MEDS: IV FLUID CONTINUATION 1,000 ML IV ONE (13:41)
[2023-06-02] MEDS ORDERED: LIDOCAINE 2% (PF) 20 MG/ML 5 ML VIAL ONE (13:41)
[2023-06-02] MEDS ORDERED: PROPOFOL 10 MG/ML 20 ML VIAL IV ONE (13:41)
--- NOTE | 2023-06-02 14:14 | P.OP ---
Date of Procedure: 06/02/23 Preoperative Diagnosis: GI bleed Postoperative Diagnosis: Antral gastritis Moderate size hiatal hernia Esophagitis Diverticulosis Tortuous colon Procedure(s) Performed: Colonoscopy EGD Anesthesia: MAC Surgeon: Gwyn Quinonez Pathology: other (Antrum, esophagus) Condition: stable Disposition: PACU Description of Procedure: The patient placed on the endoscopy table in the lateral position. He received IV sedation. The gastro/oropharynx passed in the esophagus and stomach. Scope was then placed through the pylorus. First and second portion of duodenum appeared normal. Scope was then brought back to the antrum this appeared mildly inflamed. A biopsy was performed. The scope was then retroflexed Amino-Cerv appeared normal. There was a moderate size hiatal hernia. The GE junction was at 38 cm. The distal esophagus appeared inflamed. There was significant inflammatory changes. A biopsy was performed. The proximal esophagus appeared normal. Scope withdrawn the patient. Next digital rectal exam was performed. This revealed no abnormality through the flexible colonoscope was then placed via the anus and passed with the colon. Scope not passed beyond the sigmoid colon secondary to tortuosity of the bowel. At this point the scope was withdrawn and a pediatric scope was inserted. Once again the pediatric oh could not be passed through the sigmoid colon secondary to tortuosity bowel. There is extensive diverticular disease. The scope was then brought back. The rectum appeared normal. Withdrawal the patient.
--- NOTE | 2023-06-03 02:59 | P.CNPUL ---
History of Present Illness Consult date: 06/03/23 Requesting physician: Fidencio Barrientos Reason for consult: COPD, lung mass Chief complaint: chest pain History of present illness: Patient is a 72-year-old white male with past medical history significant for COPD, pulmonary nodules, significant smoking history, hypertension, hyperlipidemia, coronary artery disease with previous stent, left [id number] amputation, among other things. His primary care provider is Dr. Barrientos. Patient was actually admitted back on May 31 with complaints of chest pain and questionable radiation to his left arm and shoulder. ACS has been essentially ruled out. We were consulted yesterday to manage the patient's COPD and abnormal chest x-ray findings. Patient is known to have pulmonary nodules suspicious for metastatic disease. He has not had any outpatient follow-up, and states this is due to lack of transportation. He lives with his , who no longer drives. He cannot drive, and has a left AKA. He has not had a PET scan that was recommended. Most recent chest CTA done back on 03/23/2023 demonstrated multiple developing lung nodules and opacities suspicious for metastatic disease. There was also associated mediastinal lymphadenopathy measuring greater than 1 cm. Incidentally, there was noted to be a thickened gastric wall. He was more recently admitted back on April 17, and was treated inpatient for COPD and bilateral pneumonia. He was discharged on April 21, with directions to follow-up outpatient in regards to his multiple pulmonary nodules. Patient is currently sitting up in bed, on 3 L/min nasal cannula, in no acute distress. He normally wears 2 to 2.5 L home O2. He sees Dr. Guerin in the pulmonary office for management of his very severe COPD. His FEV1 is 24% of predicted. He normally uses a combination of Trelegy maintenance inhaler and an albuterol rescue inhaler. He quit smoking approximately 9 to 10 months ago. Chest x-ray on arrival demonstrates multiple masslike densities bilaterally, as well as, a new left upper lobe mass suspicious for neoplasm. Overall, the previously noted interstitial infiltrates appear improved on this chest x-ray. Patient does report some chronic shortness of breath. His cough is essentially unchanged. He notes occasional creamy yellow sputum production. No hemoptysis. No fevers. Negative for influenza, RSV, COVID. Procalcitonin level 0.14. CBC from yesterday does show some leukocytosis. WBC count 15.7, hemoglobin 8.3, hematocrit 29.5, platelets 566. Patient has chronic anemia. He denies any change in his bowel habits. No nausea vomiting, diarrhea, abdominal pain, bloody bowel movements, or melena. Fecal occult was positive. He did undergo an EGD and colonoscopy yesterday, which noted antral gastritis, moderate-sized hiatal hernia, esophagitis, and diverticulosis. The scope was reportedly not able to be passed past the sigmoid colon due to tortuosity. Vital signs are stable. Review of Systems REVIEW OF SYSTEMS: CONSTITUTIONAL: Denies any recent significant weight loss or weight gain. EYES: Denies change in vision. EARS, NOSE, MOUTH, THROAT: Denies headaches, denies sore throat. CARDIOVASCULAR: Admits radiating chest pain down his left arm with activity and rest. Denies any palpitations or syncopal episodes. RESPIRATORY: See HPI. GASTROINTESTINAL: Denies change in appetite, abdominal pain, nausea and vomiting, or diarrhea GENITOURINARY: Denies hematuria, denies infections. MUSKULOSKELETAL: Denies pain, denies swelling. INTEGUMENTARY: Denies rash, denies eczema. NEUROLOGICAL: Denies recent memory loss, no recent seizure activity. PSYCHIATRIC: Denies anxiety, denies depression. HEMATOLOGIC/LYMPHATIC: Denies anemia, denies enlarged lymph node Past Medical History Past Medical History: COPD, Hyperlipidemia, Hypertension, Myocardial Infarction ([place]), Osteoarthritis (OA), Vascular Disorder Additional Past Medical History / Comment(s): hx migraines, hx shingles, 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 knee wound + FOR MRSA. History of high left above-knee amputation done approximately 2009. Last Myocardial Infarction Date:: 2003 History of Any Multi-Drug Resistant Organisms: Acinetobacter (MDRO), MRSA Date of last positivie culture/infection: 04/02/16 MDRO Source:: LT KNEE WOUND Past Surgical History: Heart Catheterization With Stent, Orthopedic Surgery Additional Past Surgical History / Comment(s): STENTS TO LEFT GROIN, LEFT ABOVE THE KNEE AMPUTATION, unsuccessful revascularization left leg, shoulder surgery, surgical debridement of necrotic tissue left scrotal area, LT AKA 03/03/16. left testicle removed. heart stent x1 broken left hip Past Anesthesia/Blood Transfusion Reactions: No Reported Reaction Date of Last Stent Placement:: 2006 Smoking Status: Former smoker - Past Family History Sister(s) History Unknown: Yes Family Medical History: Cancer Additional Family Medical History / Comment(s): double mastectomy, still surviving Father History Unknown: Yes Family Medical History: No Reported History Mother History Unknown: Yes Family Medical History: No Reported History Additional Family Medical History / Comment(s): hypoglycemia Medications and Allergies Home Medications Medication Instructions Recorded Confirmed Type Aspirin 81 mg PO DAILY 01/14/14 05/31/23 History DULoxetine HCL [Cymbalta] 60 mg PO DAILY 01/14/14 05/31/23 History lisinopriL [Prinivil] 20 mg PO DAILY 01/14/14 05/31/23 History Pantoprazole Sodium [Protonix] 40 mg PO DAILY 06/13/18 05/31/23 History amLODIPine [Norvasc] 5 mg PO DAILY 06/13/18 05/31/23 History Atorvastatin [Lipitor] 80 mg PO DAILY #30 tab 07/20/20 05/31/23 Rx Metoprolol Succinate (ER) [Toprol 25 mg PO DAILY #30 tab.er.24h 07/20/20 05/31/23 Rx XL] Albuterol Sulfate [Proair Hfa] 2 puff INHALATION RT-QID PRN 08/29/21 05/31/23 History Tamsulosin [Flomax] 0.4 mg PO DAILY 08/29/21 05/31/23 History HYDROcodone/APAP 10-325MG [[place] 1 tab PO Q6HR PRN 07/12/22 05/31/23 History 10-325] Primidone [Mysoline] 25 mg PO HS 07/12/22 05/31/23 History Loratadine [Claritin] 10 mg PO DAILY 08/13/22 05/31/23 History Nitroglycerin Sl Tabs [Nitrostat] 0.4 mg SL Q5M PRN 08/13/22 05/31/23 History Albuterol Nebulized [Ventolin 2.5 mg INHALATION RT-Q6H PRN 03/23/23 05/31/23 History Nebulized] Escitalopram [Lexapro] 20 mg PO DAILY 03/23/23 05/31/23 History Fluticasone/Umeclidin/Vilanter 1 puff INHALATION RT-DAILY 03/23/23 05/31/23 History [Trelegy Ellipta 200-62.5-25] Gabapentin 600 mg PO TID 03/23/23 05/31/23 History Megestrol Acetate 400 mg PO DAILY 03/23/23 05/31/23 History traZODone HCL [Desyrel] 50 mg PO HS PRN 04/17/23 05/31/23 History Budesonide-Formot 160-4.5 Mcg 2 puff INHALATION RT-BID 30 Days 04/21/23 05/31/23 Rx [Symbicort 160-4.5 Mcg Inhaler] #1 each Ipratropium-Albuterol Nebulize 3 ml INHALATION RT-QID 30 Days 04/21/23 05/31/23 Rx [Duoneb 0.5 mg-3 mg/3 ml Soln] #120 each Lidocaine 4% Patch 1 patch TOPICAL DAILY@1999 30 Days 04/21/23 05/31/23 Rx #30 patch Allergies Allergy/AdvReac Type Severity Reaction Status Date / Time azithromycin [From Zithromax] Allergy Rash/Hives Verified 05/31/23 07:00 Physical Exam Vitals: Vital Signs Temp Pulse Pulse Resp BP BP Pulse Ox 06/02/23 20:42 74 06/02/23 20:32 74 06/02/23 19:23 97.9 F 74 16 126/77 94 L 06/02/23 16:00 80 135/86 100 06/02/23 15:42 80 06/02/23 15:33 78 06/02/23 15:30 77 102/60 97 06/02/23 15:00 97.6 F 79 16 119/50 96 06/02/23 14:26 98 06/02/23 12:41 84 06/02/23 12:32 84 06/02/23 09:21 76 06/02/23 09:13 97 06/02/23 09:10 72 06/02/23 07:00 98.3 F 94 16 169/75 97 06/02/23 02:18 97.5 F L 79 15 117/58 96 Intake and Output 06/02/23 06/02/23 06/03/23 14:59 22:59 06:59 Intake Total 250 480 Balance 250 480 Intake: IV 250 Oral 480 Other: Voiding Method Bedside Commode Urinal # Voids 1 1 # Bowel Movements 2 2 GENERAL EXAM: Alert, 72-year-old white female, who is cachectic and disheveled, overall comfortable in no apparent distress. HEAD: Normocephalic and atraumatic EYES: Normal reaction of pupils, equal size. NOSE: Clear with pink turbinates. Oropharynx/THROAT: Poor dentition. No erythema or exudates. NECK: No masses, no JVD. No palpable lymphadenopathy CHEST: No chest wall deformity. LUNGS: Equal air entry with diffuse expiratory wheezes and rhonchi. On 3 L/min nasal cannula. No conversational dyspnea or accessory muscle use while at rest.. CVS: S1 and S2 normal with no audible murmur, irregular rhythm. No other extra heart sounds ABDOMEN: No hepatosplenomegaly, active bowel sounds, no guarding or rigidity. SPINE: No scoliosis or deformity SKIN: No rashes CENTRAL NERVOUS SYSTEM: No focal deficits, tone is normal in all 4 extremities. EXTREMITIES: Prior left AKA. There is no peripheral edema, clubbing, or cyanosis. Peripheral pulses are intact. Results - Laboratory Findings CBC and BMP: 06/02/23 06:22 06/02/23 06:22 PT/INR, D-dimer PT 10.7 sec (10.0-12.5) 05/31/23 01:36 INR 1.0 (<1.2) 05/31/23 01:36 Abnormal lab findings: Abnormal Labs 05/31/23 05/31/23 05/31/23 01:36 01:36 01:36 WBC 11.1 H RBC 3.66 L Hgb 8.5 L Hct 28.1 L MCV 76.7 L D MCH 23.2 L MCHC 30.2 L RDW 16.8 H Plt Count 546 H Immature Gran # Neutrophils # 8.9 H Lymphocytes # Monocytes # Eosinophils # Sodium 136 L Anion Gap BUN 27 H BUN/Creatinine Ratio Glucose 125 H Iron 10 L % Saturation 3.45 L C-Reactive Protein Total Protein 5.3 L Albumin 2.9 L Albumin/Globulin Ratio Vitamin B12 1036.0 H Procalcitonin 06/01/23 06/01/23 06/01/23 05:30 05:30 05:31 WBC RBC Hgb Hct MCV MCH MCHC RDW Plt Count Immature Gran # Neutrophils # Lymphocytes # Monocytes # Eosinophils # Sodium Anion Gap BUN BUN/Creatinine Ratio 29.62 H Glucose 163 H Iron % Saturation C-Reactive Protein 7.3 H Total Protein 5.6 L Albumin 3.4 L Albumin/Globulin Ratio 1.55 L Vitamin B12 Procalcitonin 0.14 H 06/01/23 06/02/23 06/02/23 05:31 06:22 06:22 WBC 15.43 H 15.78 H RBC 4.06 L 3.82 L Hgb 8.8 L 8.3 L Hct 30.7 L 29.5 L MCV 75.6 L 77.2 L MCH 21.7 L 21.7 L MCHC 28.7 L 28.1 L RDW 17.2 H 17.2 H Plt Count 598 H 566 H Immature Gran # 0.15 H 0.09 H Neutrophils # 12.99 H 13.72 H Lymphocytes # 0.79 L Monocytes # 1.04 H Eosinophils # 0.03 L Sodium Anion Gap 12.10 H BUN BUN/Creatinine Ratio 23.38 H Glucose 138 H Iron % Saturation C-Reactive Protein Total Protein 5.5 L Albumin 3.2 L Albumin/Globulin Ratio 1.39 L Vitamin B12 Procalcitonin - Diagnostic Findings Chest x-ray: image reviewed Assessment and Plan Assessment: Acute on chronic hypoxemic respiratory failure, secondary to acute COPD exacerbation. Chronic hypoxemic respiratory failure, on home O2 Recent hospitalization for bilateral community-acquired pneumonia, previously noted interstitial infiltrates appear to have improved on most recent chest x- ray. Procalcitonin is down to 0.14. Multiple pulmonary nodules, suspicious for metastatic disease, no outpatient follow-up. Most recent chest x-ray read demonstrates multiple bilateral masslike densities, as well as, a new left upper lobe mass suspicious for neoplasm and disease progression. Very severe chronic obstructive pulmonary disease, with an FEV1 24% of predicted. Normal maintained on a combination of Trelegy inhaler, albuterol nebs and as needed albuterol inhaler Leukocytosis Chest pain, ACS ruled out History of coronary artery disease, with previous PCI/stent History of hyperlipidemia Hypertension Chronic anemia, microcytic hypochromic Positive fecal occult Moderate-sized hiatal hernia Antral gastritis GERD, with esophagitis Diverticulosis without diverticulitis History of left AKA Former tobacco dependence Plan: Patient's medications, labs, chest x-ray reviewed Continue supplemental oxygen Continue combination of DuoNebs [id number], Symbicort inhaler, and start IV Solu-Medrol. Patient was placed on empiric Zosyn. Procalcitonin level down to 0.14. Previously noted interstitial infiltrates appear to improved. Negative for influenza, RSV, COVID Patient has multiple pulmonary nodules/masses suspicious for metastatic disease. Patient has not had no outpatient follow-up. I reemphasized that the noted lesions are suspicious for neoplasm and recommend outpatient PET scan. Patient will eventually need biopsy of these lesions. Consult social work for transportation issues Overall prognosis is poor secondary to above-mentioned comorbidities. We will continue to follow, and further recommendations are forthcoming I have personally seen and examined the patient, performed the documentation and the assessment and plan as written. Number of minutes spent on the visit:20 Time with Patient: Greater than 30
[2023-06-03] MEDS: methylPREDNISolone SOD SUCCI 125 MG/2 ML VIAL IV SCH (06:04)
[2023-06-03] MEDS ORDERED: RX INFO: IV CONTRAST WAS GIVEN 1 EACH MISC MISCELLANE PRN (08:03)
[2023-06-03 08:35] LABS: Basophils # (A) 0.04 X 10*3/uL (0.00-0.10); Basophils % (A) 0.5 %; Eosinophils # (A) 0.22 X 10*3/uL (0.04-0.35); Eosinophils % (A) 2.7 %; HCT 28.6 % (39.6-50.0); Lymphocytes # (A) 1.07 X 10*3/uL (0.90-5.00); Lymphocytes % (A) 13.2 %; MCH 21.3 pg (27.0-32.0); MCV 76.1 FL (80.0-97.0); Monocytes # (A) 0.61 X 10*3/uL (0.20-1.00); Monocytes % (A) 7.5 %; NRBC Per 100 WBC 0 X 10*3/uL (0.00-0.01); Neutrophils # (A) 6.08 X 10*3/uL (1.80-7.70); Neutrophils % (A) 75.1 %; Platelet Count 569 X 10*3/uL (140-440); RBC 3.76 X 10*6/uL (4.40-5.60); RDW 17.3 % (11.5-14.5)
[2023-06-03 08:50] LABS: ALT 11 U/L (10-49); AST 13 U/L (14-35); Albumin/Globulin Ratio 1.36 Ratio (1.60-3.17); Alkaline Phosphatase 64 U/L (41-126); BUN/Creat Ratio 25.12 Ratio (12.00-20.00); Blood Urea Nitrogen 20.1 mg/dL (9.0-27.0); Calcium 8.9 mg/dL (8.7-10.3); Carbon Dioxide 28.5 mmol/L (21.6-31.8); Chloride 101 mmol/L (96-109); Globulin 2.2 g/dL (1.6-3.3); Glucose 125 mg/dL (70-110); Potassium 4.7 mmol/L (3.5-5.5); Sodium 140 mmol/L (135-145); Total Bilirubin 0.3 mg/dL (0.3-1.2); Total Protein 5.2 g/dL (6.2-8.2)
--- NOTE | 2023-06-03 11:00 | CT ---
EXAMINATION TYPE: CT chest w con DATE OF EXAM: 06/03/2023 COMPARISON: Chest x-ray 06/01/2023 HISTORY: chest pain CT DLP: 495 mGycm, Automated exposure control for dose reduction was used. CONTRAST: Performed injected with 100 mL of Isovue 300. TECHNIQUE: Axial images were obtained at 5 mm thick sections. Reconstructed images are reviewed on [employer] computer in the coronal plane. FINDINGS: Portion of the thyroid visualized is normal. There is a new 2.1 cm nodule within the posterior medial left upper lobe. There is a soft tissue mass posterior to the right main bronchus in the hilar region. This is ill-def ined and best estimated to measure 2.7 x 3.6 cm. Example image series 3 image 37. Extensive emphysematous changes are present. Some pneumonitis changes within the lingula, example fauzia ge series 4 image 59. There is increased lung markings through the right lower lobe. There is a small right pleural effusion There is a 1.4 cm left peribronchial lymph node present. Distal pretracheal and right peribronchial lymph node is present measuring 1.3 cm. And 1.1 cm subcarinal lymph node is present. The ascending aorta diameter at the level of the main pulmonary artery is 3.7 cm. The main pulmonary artery diameter at the bifurcation is 3.[address] sections are obtained through the upper abdomen. Abdomen is essentially unremarkable. IMPRESSION: 1. Interval development of a right posterior hilar mass with enlarged mediastinal adenopathy and a no dule within the posterior medial left apex. 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 Additional workup with PET CT is recommended.
--- NOTE | 2023-06-03 12:03 | P.PN ---
Subjective Progress Note Date: 06/02/23 Principal diagnosis: Reason for follow-up is leukocytosis and question of pneumonia Patient is a 72-year-old male with a past medical history significant for hypertension hyperlipidemia COPD IN osteoarthritis presenting to the hospital for evaluation of chest pain, patient also noticed to have elevated white count chest x-ray with a masslike density in the right hilum concerning for possible pneumonia. On today's evaluation that is 06/02/2023, Patient is afebrile patient is currently on 3 L nasal cannula oxygen and denies having any shortness of breath, the patient denies any chest pain or worsening cough, the patient denies any nausea vomiting did not have any abdominal pain and no diarrhea. Patient white count is 15.78, creatinine 0.8 urine has been negative Objective - Vital Signs Vital signs: Vital Signs Temp 98.3 F 06/02/23 07:00 Pulse 94 06/02/23 07:00 Resp 16 06/02/23 07:00 BP 169/75 06/02/23 07:00 Pulse Ox 97 06/02/23 07:00 FiO2 Intake & Output 06/01/23 06/02/23 18:59 06:59 Intake Total 730 Balance 730 Intake: IV 250 Oral 480 Other: Voiding Method Bedside Commode Urinal # Voids 2 2 # Bowel Movements 2 - Exam GENERAL DESCRIPTION: An elderly male lying in bed in no distress RESPIRATORY SYSTEM: Unlabored breathing , decreased breath sounds at bases HEART: S1 S2 regular rate and rhythm , ABDOMEN: Soft , no tenderness EXTREMITIES: No edema feet - Labs CBC & Chem 7: 06/03/23 05:28 06/03/23 05:28 Labs: Abnormal Lab Results - Last 24 Hours (Table) 06/03/23 06/03/23 Range/Units 05:28 05:28 RBC 3.76 L (4.40-5.60) X 10*6/uL Hgb 8.0 L (13.0-17.0) g/dL Hct 28.6 L (39.6-50.0) % MCV 76.1 L (80.0-97.0) FL MCH 21.3 L (27.0-32.0) pg MCHC 28.0 L (32.0-37.0) g/dL RDW 17.3 H (11.5-14.5) % Plt Count 569 H (140-440) X 10*3/uL Immature Gran # 0.08 H (0.00-0.04) X 10*3/uL BUN/Creatinine Ratio 25.12 H (12.00-20.00) Ratio Glucose 125 H (70-110) mg/dL AST 13 L (14-35) U/L Total Protein 5.2 L (6.2-8.2) g/dL Albumin 3.0 L (3.8-4.9) g/dL Albumin/Globulin Ratio 1.36 L (1.60-3.17) Ratio Microbiology - Last 24 Hours (Table) 06/01/23 09:17 Blood Culture - Preliminary Blood Assessment and Plan (1) Leukocytosis Current Visit: Yes Status: Acute Code(s): D72.829 - ELEVATED WHITE BLOOD CELL COUNT, UNSPECIFIED SNOMED Code(s): 239572310 (2) Pneumonia Current Visit: No Status: Acute Code(s): J18.9 - PNEUMONIA, UNSPECIFIED ORGANISM SNOMED Code(s): 993011059 Plan: 1patient presented to hospital with chest pain and this patient was noticed to have elevated white count patient also have a cough abnormal chest x-ray concerning for possible pneumonia to be the likely etiology 2-we will obtain sputum for Gram stain and culture, 3-patient to continue with Zosyn while waiting for the culture to finalize antibiotic ankle course closely Dictation was produced using [employer] dictation software. please excuse any grammatical, word or spelling errors. Time with Patient: Less than 30
[2023-06-03] MEDS: SODIUM FERRIC GLUCONAT-SUCROSE 125 MG in SODIUM CHLORIDE 0.9% 100 ML IVPB ONE (13:44)
--- NOTE | 2023-06-03 14:18 | P.PN ---
Subjective Progress Note Date: 06/03/23 CHIEF COMPLAINT: Anemia HISTORY OF PRESENT ILLNESS: Patient status post EGD and colonoscopy results showing antral gastritis, moderate-sized hiatal hernia, esophagitis, diverticulosis and tortuous colon and colonoscopy did not pass the sigmoid colon.. Afebrile. WBC 8.10 hemoglobin stable 8.0 platelets 569 patient denies any blood in his stools or active bleeding. PHYSICAL EXAM: VITAL SIGNS: Reviewed. GENERAL: Well-developed in no acute distress. HEENT: No sclera icterus. Extraocular movements grossly intact. Moist buccal mucosa. Head is atraumatic, normocephalic. ABDOMEN: Soft. Nondistended. Nontender. NEUROLOGIC: Alert and oriented. Cranial nerves II through XII grossly intact. ASSESSMENT: 1. Anemia status post EGD and colonoscopy revealing gastritis, mild hiatal hernia, esophagitis and diverticulosis PLAN: -Continue Protonix -Continue to monitor for any signs or symptoms of bleeding -Continue to monitor hemoglobin -Agree with IV iron Physician Health Data Analyst note has been reviewed by physician. Signing provider agrees with the documented findings, assessment, and plan of care. Objective - Vital Signs Vital signs: Vital Signs Temp 97.6 F 06/03/23 07:00 Pulse 84 06/03/23 14:01 Resp 16 06/03/23 14:01 BP 183/81 06/03/23 07:00 Pulse Ox 97 06/03/23 07:00 FiO2 Intake & Output 06/02/23 06/03/23 06/03/23 18:59 06:59 18:59 Intake Total 730 360 Balance 730 360 Intake: IV 250 Oral 480 360 Other: Voiding Method Bedside Commode Bedside Commode Urinal Urinal # Voids 2 2 3 # Bowel Movements 2 - Labs CBC & Chem 7: 06/03/23 05:28 06/03/23 05:28 Labs: Abnormal Lab Results - Last 24 Hours (Table) 06/03/23 06/03/23 Range/Units 05:28 05:28 RBC 3.76 L (4.40-5.60) X 10*6/uL Hgb 8.0 L (13.0-17.0) g/dL Hct 28.6 L (39.6-50.0) % MCV 76.1 L (80.0-97.0) FL MCH 21.3 L (27.0-32.0) pg MCHC 28.0 L (32.0-37.0) g/dL RDW 17.3 H (11.5-14.5) % Plt Count 569 H (140-440) X 10*3/uL Immature Gran # 0.08 H (0.00-0.04) X 10*3/uL BUN/Creatinine Ratio 25.12 H (12.00-20.00) Ratio Glucose 125 H (70-110) mg/dL AST 13 L (14-35) U/L Total Protein 5.2 L (6.2-8.2) g/dL Albumin 3.0 L (3.8-4.9) g/dL Albumin/Globulin Ratio 1.36 L (1.60-3.17) Ratio Microbiology - Last 24 Hours (Table) 06/01/23 09:17 Blood Culture - Preliminary Blood
--- NOTE | 2023-06-03 15:14 | P.PN ---
Subjective Progress Note Date: 06/03/23 Principal diagnosis: Reason for follow-up is leukocytosis and question of pneumonia Patient is a 72-year-old male with a past medical history significant for hypertension hyperlipidemia COPD PR osteoarthritis presenting to the hospital for evaluation of chest pain, patient also noticed to have elevated white count chest x-ray with a masslike density in the right hilum concerning for possible pneumonia. On today's evaluation that is 06/03/2023,the patient denies any fever or any chills, patient is breathing comfortably on 3 L nasal oxygen, the patient denies chest pain shortness of breath and no worsening cough or sputum production, patient denies abdominal pain, no nausea vomiting or diarrhea. Patient work normalized to 8.10, creatinine is 0.8 blood and sputum culture currently pending Objective - Vital Signs Vital signs: Vital Signs Temp 97.6 F 06/03/23 07:00 Pulse 75 06/03/23 08:34 Resp 16 06/03/23 08:00 BP 183/81 06/03/23 07:00 Pulse Ox 97 06/03/23 07:00 FiO2 Intake & Output 06/02/23 06/03/23 06/03/23 18:59 06:59 18:59 Intake Total 730 360 Balance 730 360 Intake: IV 250 Oral 480 360 Other: Voiding Method Bedside Commode Bedside Commode Urinal Urinal # Voids 2 2 # Bowel Movements 2 - Exam GENERAL DESCRIPTION: An elderly male lying in bed in no distress RESPIRATORY SYSTEM: Unlabored breathing , decreased breath sounds at bases HEART: S1 S2 regular rate and rhythm , ABDOMEN: Soft , no tenderness EXTREMITIES: No edema feet - Labs CBC & Chem 7: 06/03/23 05:28 06/03/23 05:28 Labs: Abnormal Lab Results - Last 24 Hours (Table) 06/03/23 06/03/23 Range/Units 05:28 05:28 RBC 3.76 L (4.40-5.60) X 10*6/uL Hgb 8.0 L (13.0-17.0) g/dL Hct 28.6 L (39.6-50.0) % MCV 76.1 L (80.0-97.0) FL MCH 21.3 L (27.0-32.0) pg MCHC 28.0 L (32.0-37.0) g/dL RDW 17.3 H (11.5-14.5) % Plt Count 569 H (140-440) X 10*3/uL Immature Gran # 0.08 H (0.00-0.04) X 10*3/uL BUN/Creatinine Ratio 25.12 H (12.00-20.00) Ratio Glucose 125 H (70-110) mg/dL AST 13 L (14-35) U/L Total Protein 5.2 L (6.2-8.2) g/dL Albumin 3.0 L (3.8-4.9) g/dL Albumin/Globulin Ratio 1.36 L (1.60-3.17) Ratio Microbiology - Last 24 Hours (Table) 06/01/23 09:17 Blood Culture - Preliminary Blood Assessment and Plan (1) Leukocytosis Current Visit: Yes Status: Acute Code(s): D72.829 - ELEVATED WHITE BLOOD CELL COUNT, UNSPECIFIED SNOMED Code(s): 623219308 (2) Pneumonia Current Visit: No Status: Acute Code(s): J18.9 - PNEUMONIA, UNSPECIFIED ORGANISM SNOMED Code(s): 171044247 Plan: 1patient presented to hospital with chest pain and this patient was noticed to have elevated white count patient also have a cough abnormal chest x-ray concerning for possible pneumonia to be the likely etiology 2-blood and sputum culture currently pending 3-patient white count has normalized, to continue with Zosyn while waiting for the culture to finalize and monitor clinical course closely Dictation was produced using [employer] dictation software. please excuse any grammatical, word or spelling errors. Time with Patient: Less than 30
--- NOTE | 2023-06-03 16:50 | P.PN ---
Subjective Progress Note Date: 06/03/23 Baldev Joyce, is a 72-year-old male who presented to [facility] emergency room with a chief complaint of chest pain He was evaluated in the emergency room vital examination on presentation revealed a temperature of 98.8 pulse 73 respiration 16 blood pressure 131/76 pulse ox 94% on room air Laboratory data reveals a white blood count of 11.1 hemoglobin 8.5 platelet count 546 troponin 0.012 BNP 4240 Testing in the emergency room revealed EKG revealed sinus rhythm with occasional PVC chest x-ray revealed no acute abnormality Patient was admitted to medical floor for further evaluation and treatment On 06/01/2023 for patients alert and oriented 3. Patient reports improvement with chest pain. 2-D echo completed showing EF 55-60%. Awaiting general surgery consult for anemia. White blood cell elevated today at 15.43. We'll consult infectious disease services and check blood urine and sputum along with chest x-ray. Patient denies chest pain or shortness breath. Patient denies nausea vomiting or diarrhea. Patient denies any urinary burning or frequency. On 06/02/2023 patients alert and oriented 3. Plans today per surgical services EGD and colonoscopy. Pulmonary services also consulted for abnormal chest x- ray. Patient started on IV Zosyn per infectious disease. At this time patient denies chest pain or shortness of breath. Patient denies nausea vomiting or diarrhea. Patient denies any urinary burning or frequency. On 06/03/2023 patient was seen and examined on the medical floor he is alert and oriented 3 in no apparent distress there is no fever or chills no headache or dizziness no chest pain no shortness of breath he has occasional cough no nausea or vomiting no abdominal pain no diarrhea and no urinary symptoms, hemoglobin is still declining, EGD and colonoscopy did not reveal significant abnormality, other than mild gastritis. Patient will be given 2 doses of IV iron, possible discharge to home tomorrow if stable. Objective - Vital Signs Vital signs: Vital Signs Temp 98.2 F 06/03/23 02:23 Pulse 75 06/03/23 08:34 Resp 16 06/03/23 02:23 BP 125/71 06/03/23 02:23 Pulse Ox 95 06/03/23 02:23 FiO2 Intake & Output 06/02/23 06/03/23 06/03/23 18:59 06:59 18:59 Intake Total 730 Balance 730 Intake: IV 250 Oral 480 Other: Voiding Method Bedside Commode Urinal # Voids 2 2 # Bowel Movements 2 - Exam In general patient is alert and oriented x 3 in no distress HEENT head normocephalic and atraumatic Neck is supple no JVD no goiter no lymphadenopathy no carotid bruit Chest examination is clear to auscultation no crackles no wheezing Cardiac exam reveals regular heart sounds S1 and S2 no gallops no murmurs Abdomen is soft nontender no organomegaly with normal bowel sounds Extremity exam reveals no edema no cyanosis or clubbing Neurological examination reveals no gross focal deficits - Labs CBC & Chem 7: 06/03/23 05:28 06/03/23 05:28 Labs: Abnormal Lab Results - Last 24 Hours (Table) 06/02/23 06/03/23 06/03/23 Range/Units 06:22 05:28 05:28 RBC 3.76 L (4.40-5.60) X 10*6/uL Hgb 8.0 L (13.0-17.0) g/dL Hct 28.6 L (39.6-50.0) % MCV 76.1 L (80.0-97.0) FL MCH 21.3 L (27.0-32.0) pg MCHC 28.0 L (32.0-37.0) g/dL RDW 17.3 H (11.5-14.5) % Plt Count 569 H (140-440) X 10*3/uL Immature Gran # 0.08 H (0.00-0.04) X 10*3/uL Anion Gap 12.10 H (4.00-12.00) mmol/L BUN/Creatinine Ratio 23.38 H 25.12 H (12.00-20.00) Ratio Glucose 138 H 125 H (70-110) mg/dL AST 13 L (14-35) U/L Total Protein 5.5 L 5.2 L (6.2-8.2) g/dL Albumin 3.2 L 3.0 L (3.8-4.9) g/dL Albumin/Globulin Ratio 1.39 L 1.36 L (1.60-3.17) Ratio Microbiology - Last 24 Hours (Table) 06/01/23 09:17 Blood Culture - Preliminary Blood Assessment and Plan Plan: Episode of chest pain leukocytosis. Previous history of coronary artery disease with history of angioplasty and stent placement Anemia hemoglobin 8.5, Will consult general surgery for GI evaluation Underlying history of hypertension Underlying history of hyperlipidemia Underlying history of chronic obstructive pulmonary disease Underlying history of peripheral arterial disease Underlying history of lower extremity amputation, left above-knee amputation Underlying history of migraine headache Underlying history of chronic low back pain Continued tobacco use At this time patient was seen and examined Home medications reviewed and reordered Cardiology consultation requested Infectious disease service is consulted For DVT prophylaxis subcu Brandix Will follow closely
[2023-06-04] MEDS: SODIUM FERRIC GLUCONAT-SUCROSE 125 MG in SODIUM CHLORIDE 0.9% 100 ML IVPB ONE (08:09)
[2023-06-04] MEDS: predniSONE 10 MG TAB PO SCH (09:24)
--- NOTE | 2023-06-04 10:53 | P.PN ---
Subjective Progress Note Date: 06/04/23 Baldev Jyoce, is a 72-year-old male who presented to [facility] emergency room with a chief complaint of chest pain He was evaluated in the emergency room vital examination on presentation revealed a temperature of 98.8 pulse 73 respiration 16 blood pressure 131/76 pulse ox 94% on room air Laboratory data reveals a white blood count of 11.1 hemoglobin 8.5 platelet count 546 troponin 0.012 BNP 4240 Testing in the emergency room revealed EKG revealed sinus rhythm with occasional PVC chest x-ray revealed no acute abnormality Patient was admitted to medical floor for further evaluation and treatment On 06/01/2023 for patients alert and oriented 3. Patient reports improvement with chest pain. 2-D echo completed showing EF 55-60%. Awaiting general surgery consult for anemia. White blood cell elevated today at 15.43. We'll consult infectious disease services and check blood urine and sputum along with chest x-ray. Patient denies chest pain or shortness breath. Patient denies nausea vomiting or diarrhea. Patient denies any urinary burning or frequency. On 06/02/2023 patients alert and oriented 3. Plans today per surgical services EGD and colonoscopy. Pulmonary services also consulted for abnormal chest x- ray. Patient started on IV Zosyn per infectious disease. At this time patient denies chest pain or shortness of breath. Patient denies nausea vomiting or diarrhea. Patient denies any urinary burning or frequency. On 06/03/2023 patient was seen and examined on the medical floor he is alert and oriented 3 in no apparent distress there is no fever or chills no headache or dizziness no chest pain no shortness of breath he has occasional cough no nausea or vomiting no abdominal pain no diarrhea and no urinary symptoms, hemoglobin is still declining, EGD and colonoscopy did not reveal significant abnormality, other than mild gastritis. Patient will be given 2 doses of IV iron, possible discharge to home tomorrow if stable. On 06/04/2023 patients alert and oriented 3. Patient receiving IV iron today. Patient will need PET scan outpatient per pulmonary recommendation. At this time patient denies chest pain or shortness of breath. Patient denies nausea vomiting or diarrhea. Patient denies any urinary burning or frequency. Patient did have a fall this morning denies hitting his head reports that he was just bending over and lost his balance Objective - Vital Signs Vital signs: Vital Signs Temp 98.1 F 06/04/23 07:57 Pulse 71 06/04/23 08:00 Resp 18 06/04/23 08:00 BP 156/59 06/04/23 07:57 Pulse Ox 99 06/04/23 07:57 FiO2 Intake & Output 06/03/23 06/04/23 06/04/23 18:59 06:59 18:59 Intake Total 480 236 Balance 480 236 Intake: Oral 480 236 Other: Voiding Method Bedside Commode Bedside Commode Bedside Commode Urinal # Voids 3 1 - Exam In general patient is alert and oriented x 3 in no distress HEENT head normocephalic and atraumatic Neck is supple no JVD no goiter no lymphadenopathy no carotid bruit Chest examination is clear to auscultation no crackles no wheezing Cardiac exam reveals regular heart sounds S1 and S2 no gallops no murmurs Abdomen is soft nontender no organomegaly with normal bowel sounds Extremity exam reveals no edema no cyanosis or clubbing Neurological examination reveals no gross focal deficits - Labs CBC & Chem 7: 06/03/23 05:28 06/03/23 05:28 Labs: Microbiology - Last 24 Hours (Table) 06/02/23 15:45 Gram Stain - Preliminary Sputum Sputum Culture - Preliminary 06/01/23 09:17 Blood Culture - Preliminary Blood Assessment and Plan Plan: Episode of chest pain leukocytosis. Previous history of coronary artery disease with history of angioplasty and stent placement Anemia hemoglobin 8.5, Will consult general surgery for GI evaluation Underlying history of hypertension Underlying history of hyperlipidemia Underlying history of chronic obstructive pulmonary disease Underlying history of peripheral arterial disease Underlying history of lower extremity amputation, left above-knee amputation Underlying history of migraine headache Underlying history of chronic low back pain Continued tobacco use At this time patient was seen and examined Home medications reviewed and reordered Cardiology consultation requested Infectious disease service is consulted For DVT prophylaxis subcu Liliana Will follow closely
--- NOTE | 2023-06-04 11:13 | CDI ---
Documentation Clarification Form Date: 06/04/2023 10:19:00 AM From: Racheal Lawson RN, CCDS Phone: [phone] Admit Date: 05/31/2023 05:21:00 AM Patient Name: Baldev Joyce Visit Number: [id number] Discharge Date: ATTENTION: The Clinical Documentation Specialists (CDI) and [facility] Coding Staff appreciate your assistance in clarifying documentation. Please respond to the clarification below the line at the bottom and electronically sign. The CDI & [facility] Coding staff will review the response and follow-up if needed. Please note: Queries are made part of the Legal Health Record. If you have any questions, please contact the author of this message via ITS. Dr. Fidencio Barrientos Conflicting documentation has been found in the medical record. As attending physician, please provide clarification. 06/03 Pulmonary consult: Acute COPD exacerbation. Multiple pulmonary nodules, suspicious for metastatic disease, no outpatient follow-up. Most recent chest x-ray read demonstrates multiple bilateral mass like densities, as well as a new left upper lobe mass suspicious for neoplasm and disease progression. 06/01 ID: chest x-ray concerning for mass like density overlying the right hilum and at the left upper lobe suspicious for neoplasm left upper lobe. A previous CT scan didn't demonstrate a mass corresponding to this region. Pneumonia versus neoplasm with regard to the right hilum. abnormal chest x-ray concerning for possible pneumonia to be the likely etiology 06/02GI: EGD Antral gastritis History/Risk Factors: hypertension, Vascular Disorder, COPD, Hyperlipidemia, Hypertension, [place] Clinical Indicators: 72-year-old male complaint of chest pain. 05/31 CXR: Previously seen interstitial infiltrates have largely cleared. No airspace consolidation. Treatment: Zosyn 3.375 GM IVPB Q 8 HRS 06/01-06/04 Solu-medrol 60 MG IV Q6 HRS 06/03-06/04\ Ventolin Nebulized Inhalers Q6 PRN Prednisone 30 MG PO Daily 06/04-06/04 Please clarify which diagnosis is most appropriate: [ xxx ] Antral Gastritis without bleeding [ ] Antral Gastritis with bleeding [ xxx] Acute COPD Exacerbation, POA [ ] Pneumonia POA, (specify type if known [ ] Other, Specify [ ] Unable to determine (Template Last Revised: June 2020) MTDD
[2023-06-04 11:23] LABS: ALT 15 U/L (10-49); AST 15 U/L (14-35); Albumin 3.4 g/dL (3.8-4.9); Albumin/Globulin Ratio 1.31 Ratio (1.60-3.17); Alkaline Phosphatase 69 U/L (41-126); BUN/Creat Ratio 26.64 Ratio (12.00-20.00); Blood Urea Nitrogen 29.3 mg/dL (9.0-27.0); Calcium 9.4 mg/dL (8.7-10.3); Chloride 96 mmol/L (96-109); Globulin 2.6 g/dL (1.6-3.3); Glucose 261 mg/dL (70-110); Potassium 5.2 mmol/L (3.5-5.5); Sodium 134 mmol/L (135-145); Total Bilirubin 0.3 mg/dL (0.3-1.2)
[2023-06-04 11:41] LABS: Basophils # (A) 0.01 X 10*3/uL (0.00-0.10); Basophils % (A) 0.1 %; Elliptocytes 2+; Eosinophils # (A) 0 X 10*3/uL (0.04-0.35); Eosinophils % (A) 0 %; HCT 30.7 % (39.6-50.0); HGB 8.9 g/dL (13.0-17.0); Lymphocytes # (A) 0.44 X 10*3/uL (0.90-5.00); Lymphocytes % (A) 4.4 %; MCH 21.5 pg (27.0-32.0); MCV 74.3 FL (80.0-97.0); Mean Platelet Volume 11.1 FL (9.5-12.2); Microcytosis (M) 2+; NRBC Per 100 WBC 0 X 10*3/uL (0.00-0.01); Neutrophils # (A) 9.22 X 10*3/uL (1.80-7.70); Neutrophils % (A) 92.4 %; Platelet Count 763 X 10*3/uL (140-440); RBC 4.13 X 10*6/uL (4.40-5.60); RDW 17.4 % (11.5-14.5); Schistocytes 2+; WBC 9.98 X 10*3/uL (4.50-10.00)
--- NOTE | 2023-06-04 11:50 | P.PN ---
Subjective Progress Note Date: 06/04/23 Patient is a 72-year-old white male with past medical history significant for COPD, pulmonary nodules, significant smoking history, hypertension, hyperlipidemia, coronary artery disease with previous stent, left pbneq-gzc-[id number] amputation, among other things. His primary care provider is Dr. Barrientos. Aminah vargas was actually admitted back on May 31 with complaints of chest pain and questionable radiation to his left arm and shoulder. ACS has been essentially ruled out. We were consulted yesterday to manage the patient's COPD and abnormal chest x-ray findings. Patient is known to have pulmonary nodules suspicious for metastatic disease. He has not had any outpatient follow-up, and states this is due to lack of transportation. He lives with his , who no longer drives. He cannot drive, and has a left AKA. He has not had a PET scan that was recommended. Most recent chest CTA done back on 03/23/2023 demonstrated multiple developing lung nodules and opacities suspicious for metastatic d isease. There was also associated mediastinal lymphadenopathy measuring greater than 1 cm. Incidentally, there was noted to be a thickened gastric wall. He was more recently admitted back on April 17, and was treated inpatient for COPD and bilateral pneumonia. He was discharged on April 21, with directions to follow-up outpatient in regards to his multiple pulmonary nodules. Patient is currently sitting up in bed, on 3 L/min nasal cannula, in no acute distress. He normally wears 2 to 2.5 L home O2. He sees Dr. Guerin in the pulmonary office for management of his very severe COPD. His FEV1 is 24% of predicted. He normally uses a combination of Trelegy maintenance inhaler and an albuterol rescue inhaler. He quit smoking approximately 9 to 10 months ago. Chest x-ray on arrival demonstrates multiple masslike densities bilaterally, as well as, a new left upper lobe mass suspicious for neoplasm. Overall, the previously noted interstitial infiltrates appear improved on this chest x-ray. Patient does report some chronic shortness of breath. His cough is essentially unchanged. He notes occasional creamy yellow sputum production. No hemoptysis. No fevers. Negative for influenza, RSV, COVID. Procalcitonin level 0.14. CBC from yesterday does show some leukocytosis. WBC count 15.7, hemoglobin 8.3, hematocrit 29.5, platelets 566. Patient has chronic anemia. He denies any change in his bowel habits. No nausea vomiting, diarrhea, abdominal pain, bloody bowel movements, or melena. Fecal occult was positive. He did undergo an EGD and colonoscopy yesterday, which noted antral gastritis, moderate-sized hiatal hernia, esophagitis, and diverticulosis. The scope was reportedly not able to be passed past the sigmoid colon due to tortuosity. Vital signs are sta ble. The patient is seen today June 04, 2023 and follow-up on the regular medical floor. He is currently resting comfortably in bed. Awake and alert in no acute distress. He is currently receiving iron replacement therapy. White count 9.9. Hemoglobin 8.9. Platelets 763. Sodium 134. Potassium 5.2. Bicarb 23. BUN 30. Creatinine 1.1. Glucose 261. Procalcitonin was 0.14. He remains on Zosyn. He is continued on Symbicort, albuterol, Solu-Medrol. Lovenox for DVT prophylaxis. Objective - Vital Signs Vital signs: Vital Signs Temp 98.1 F 06/04/23 07:57 Pulse 76 06/04/23 11:34 Resp 18 06/04/23 08:00 BP 156/59 06/04/23 07:57 Pulse Ox 99 06/04/23 07:57 FiO2 Intake & Output 06/03/23 06/04/23 06/04/23 18:59 06:59 18:59 Intake Total 480 236 Balance 480 236 Intake: Oral 480 236 Other: Voiding Method Bedside Commode Bedside Commode Bedside Commode Urinal # Voids 3 1 - Exam GENERAL EXAM: Alert, 72-year-old male, who is very thin, cachectic and disheveled, fairly comfortable in no apparent distress. HEAD: Normocephalic and atraumatic EYES: Normal reaction of pupils, equal size. NOSE: Clear with pink turbinates. Oropharynx/THROAT: Poor dentition. No erythema or exudates. NECK: No masses, no JVD. No palpable lymphadenopathy CHEST: No chest wall deformity. LUNGS: Equal air entry with diffuse expiratory wheezes and rhonchi. On 3 L/min nasal cannula. CVS: S1 and S2 normal with no audible murmur, irregular rhythm. No other extra heart sounds ABDOMEN: No hepatosplenomegaly, active bowel sounds, no guarding or rigidity. SPINE: No scoliosis or deformity SKIN: No rashes CENTRAL NERVOUS SYSTEM: No focal deficits, tone is normal in all 4 extremities. EXTREMITIES: Prior left AKA. There is no peripheral edema, clubbing, or cyanosis. Peripheral pulses are intact. - Labs CBC & Chem 7: 06/04/23 05:57 06/04/23 05:57 Labs: Abnormal Lab Results - Last 24 Hours (Table) 06/04/23 06/04/23 Range/Units 05:57 05:57 RBC 4.13 L (4.40-5.60) X 10*6/uL Hgb 8.9 L (13.0-17.0) g/dL Hct 30.7 L (39.6-50.0) % MCV 74.3 L (80.0-97.0) FL MCH 21.5 L (27.0-32.0) pg MCHC 29.0 L (32.0-37.0) g/dL RDW 17.4 H (11.5-14.5) % Plt Count 763 H (140-440) X 10*3/uL Immature Gran # 0.11 H (0.00-0.04) X 10*3/uL Neutrophils # 9.22 H (1.80-7.70) X 10*3/uL Lymphocytes # 0.44 L (0.90-5.00) X 10*3/uL Eosinophils # 0 L (0.04-0.35) X 10*3/uL Microcytosis (manual) 2+ A Elliptocytes 2+ A Schistocytes 2+ A Sodium 134 L (135-145) mmol/L Anion Gap 15.00 H (4.00-12.00) mmol/L BUN 29.3 H (9.0-27.0) mg/dL BUN/Creatinine Ratio 26.64 H (12.00-20.00) Ratio Glucose 261 H (70-110) mg/dL Total Protein 6.0 L (6.2-8.2) g/dL Albumin 3.4 L (3.8-4.9) g/dL Albumin/Globulin Ratio 1.31 L (1.60-3.17) Ratio Microbiology - Last 24 Hours (Table) 06/02/23 15:45 Gram Stain - Preliminary Sputum Sputum Culture - Preliminary 06/01/23 09:17 Blood Culture - Preliminary Blood Assessment and Plan Assessment: Acute on chronic hypoxemic respiratory failure, secondary to acute COPD exacerbation. Chronic hypoxemic respiratory failure, on home O2 Recent hospitalization for bilateral community-acquired pneumonia, previously noted interstitial infiltrates appear to have improved on most recent chest x- ray. Procalcitonin is down to 0.14. Multiple pulmonary nodules, suspicious for metastatic disease, no outpatient follow-up. Most recent chest x-ray read demonstrates multiple bilateral masslike densities, as well as, a new left upper lobe mass suspicious for neoplasm and disease progression. Very severe chronic obstructive pulmonary disease, with an FEV1 24% of predicted. Normal maintained on a combination of Trelegy inhaler, albuterol nebs and as needed albuterol inhaler Leukocytosis Chest pain, ACS ruled out History of coronary artery disease, with previous PCI/stent History of hyperlipidemia Hypertension Chronic anemia, microcytic hypochromic Positive fecal occult Moderate-sized hiatal hernia Antral gastritis GERD, with esophagitis Diverticulosis without diverticulitis History of left AKA Former tobacco dependence Plan: The patient was seen and evaluated Medications and labs reviewed Continue bronchodilators Discontinue Solu-Medrol Initiated a prednisone taper The patient is stable from the pulmonary standpoint Would recommend an outpatient PET scan Encouraged regarding the importance of medical compliance Educated regarding the probable cancer diagnosis The patient is quite thin and cachectic and would most likely be a poor candidate for cancer treatment He is a DNI CODE STATUS I have personally seen and examined the patient, performed the documentation and the assessment and plan as written. Number of minutes spent on the visit: 10.
--- NOTE | 2023-06-04 15:02 | P.PN ---
Subjective Progress Note Date: 06/04/23 Principal diagnosis: Reason for follow-up is leukocytosis and question of pneumonia Patient is a 72-year-old male with a past medical history significant for hypertension hyperlipidemia COPD NM osteoarthritis presenting to the hospital for evaluation of chest pain, patient also noticed to have elevated white count chest x-ray with a masslike density in the right hilum concerning for possible pneumonia. On today's evaluation that is 06/04/2023,the patient remains to be afebrile, patient is on 2 L nasal cannula supplemental oxygen and denies any shortness of breath no chest pain or worsening cough.Patient denies having any nausea or vomiting, no abdominal pain and no diarrhea has been reported. Patient white count is 1.98, creatinine is 1.1 sputum cultures pending Objective - Vital Signs Vital signs: Vital Signs Temp 98.1 F 06/04/23 07:57 Pulse 76 06/04/23 11:34 Resp 18 06/04/23 08:00 BP 156/59 06/04/23 07:57 Pulse Ox 99 06/04/23 07:57 FiO2 Intake & Output 06/03/23 06/04/23 06/04/23 18:59 06:59 18:59 Intake Total 480 236 Balance 480 236 Intake: Oral 480 236 Other: Voiding Method Bedside Commode Bedside Commode Bedside Commode Urinal # Voids 3 1 - Exam GENERAL DESCRIPTION: An elderly male lying in bed in no distress RESPIRATORY SYSTEM: Unlabored breathing , decreased breath sounds at bases HEART: S1 S2 regular rate and rhythm , ABDOMEN: Soft , no tenderness EXTREMITIES: No edema feet - Labs CBC & Chem 7: 06/04/23 05:57 06/04/23 05:57 Labs: Abnormal Lab Results - Last 24 Hours (Table) 06/04/23 06/04/23 Range/Units 05:57 05:57 RBC 4.13 L (4.40-5.60) X 10*6/uL Hgb 8.9 L (13.0-17.0) g/dL Hct 30.7 L (39.6-50.0) % MCV 74.3 L (80.0-97.0) FL MCH 21.5 L (27.0-32.0) pg MCHC 29.0 L (32.0-37.0) g/dL RDW 17.4 H (11.5-14.5) % Plt Count 763 H (140-440) X 10*3/uL Immature Gran # 0.11 H (0.00-0.04) X 10*3/uL Neutrophils # 9.22 H (1.80-7.70) X 10*3/uL Lymphocytes # 0.44 L (0.90-5.00) X 10*3/uL Eosinophils # 0 L (0.04-0.35) X 10*3/uL Microcytosis (manual) 2+ A Elliptocytes 2+ A Schistocytes 2+ A Sodium 134 L (135-145) mmol/L Anion Gap 15.00 H (4.00-12.00) mmol/L BUN 29.3 H (9.0-27.0) mg/dL BUN/Creatinine Ratio 26.64 H (12.00-20.00) Ratio Glucose 261 H (70-110) mg/dL Total Protein 6.0 L (6.2-8.2) g/dL Albumin 3.4 L (3.8-4.9) g/dL Albumin/Globulin Ratio 1.31 L (1.60-3.17) Ratio Microbiology - Last 24 Hours (Table) 06/02/23 15:45 Gram Stain - Preliminary Sputum Sputum Culture - Preliminary 06/01/23 09:17 Blood Culture - Preliminary Blood Assessment and Plan (1) Leukocytosis Current Visit: Yes Status: Acute Code(s): D72.829 - ELEVATED WHITE BLOOD CELL COUNT, UNSPECIFIED SNOMED Code(s): 211088948 (2) Pneumonia Current Visit: No Status: Acute Code(s): J18.9 - PNEUMONIA, UNSPECIFIED ORGANISM SNOMED Code(s): 423008277 Plan: 1patient presented to hospital with chest pain and this patient was noticed to have elevated white count patient also have a cough abnormal chest x-ray concerning for possible pneumonia to be the likely etiology 2-blood and sputum culture currently pending 3-patient did have some clinical improvement and white count has normalized, to continue with Zosyn while waiting for the culture to finalize to determine his discharge antibiotics Dictation was produced using [employer] dictation software. please excuse any grammatical, word or spelling errors. Time with Patient: Less than 30
[2023-06-04 20:14] LABS: Glucose,Whole Blood 445 mg/dL (70-110)
[2023-06-04] MEDS ORDERED: DEXTROSE 50% SYRINGE 50 ML IVP PRN ×2 (20:31)
[2023-06-04] MEDS: INSULIN ASPART (NovoLOG) 100 UNIT/ML VIAL SQ SCH (20:41)
[2023-06-05 06:17] LABS: Glucose,Whole Blood 152 mg/dL (70-110)
--- NOTE | 2023-06-05 08:29 | P.PN ---
Subjective Progress Note Date: 06/05/23 Principal diagnosis: Chest discomfort. Patient is a 72-year-old white male with past medical history significant for COPD, pulmonary nodules, significant smoking history, hypertension, hyperlipidemia, coronary artery disease with previous stent, left [id number]-[id number] amputation, among other things. His primary care provider is Dr. Barrientos. Patient was actually admitted back on May 31 with complaints of chest pain and questionable radiation to his left arm and shoulder. ACS has been essentially ruled out. We were consulted yesterday to manage the patient's COPD and abnormal chest x-ray findings. Patient is known to have pulmonary nodules suspicious for metastatic disease. He has not had any outpatient follow-up, and states this is due to lack of transportation. He lives with his , who no longer drives. He cannot drive, and has a left AKA. He has not had a PET scan that was recommended. Most recent chest CTA done back on 03/23/2023 demonstrated multiple developing lung nodules and opacities suspicious for metastatic disease. There was also associated mediastinal lymphadenopathy measuring greater than 1 cm. Incidentally, there was noted to be a thickened gastric wall. He was more recently admitted back on April 17, and was treated inpatient for COPD and bilateral pneumonia. He was discharged on April 21, with directions to follow-up outpatient in regards to his multiple pulmonary nodules. Patient is currently sitting up in bed, on 3 L/min nasal cannula, in no acute distress. He normally wears 2 to 2.5 L home O2. He sees Dr. Guerin in the pulmonary office for management of his very severe COPD. His FEV1 is 24% of predicted. He normally uses a combination of Trelegy maintenance inhaler and an albuterol rescue inhaler. He quit smoking approximately 9 to 10 months ago. Chest x-ray on arrival demonstrates multiple masslike densities bilaterally, as well as, a new left upper lobe mass suspicious for neoplasm. Overall, the previously noted interstitial infiltrates appear improved on this chest x-ray. Patient does report some chronic shortness of breath. His cough is essentially unchanged. He notes occasional creamy yellow sputum production. No hemoptysis. No fevers. Negative for influenza, RSV, COVID. Procalcitonin level 0.14. CBC from yesterday does show some leukocytosis. WBC count 15.7, hemoglobin 8.3, hematocrit 29.5, platelets 566. Patient has chronic anemia. He denies any change in his bowel habits. No nausea vomiting, diarrhea, abdominal pain, bloody bowel movements, or melena. Fecal occult was positive. He did undergo an EGD and colonoscopy yesterday, which noted antral gastritis, moderat e-sized hiatal hernia, esophagitis, and diverticulosis. The scope was reportedly not able to be passed past the sigmoid colon due to tortuosity. Vital signs are stable. The patient is seen today June 04, 2023 and follow-up on the regular medical floor. He is currently resting comfortably in bed. Awake and alert in no acute distress. He is currently receiving iron replacement therapy. White count 9.9. Hemoglobin 8.9. Platelets 763. Sodium 134. Potassium 5.2. Bicarb 23. BUN 30. Creatinine 1.1. Glucose 261. Procalcitonin was 0.14. He remains on Zosyn. He is continued on Symbicort, albuterol, Solu-Medrol. Lovenox for DVT prophylaxis. Progress note dated June 05, 2023. The patient is seen today in room 621. Actually, the patient was to be discharged yesterday. Currently, he is on 2 L of oxygen by nasal cannula. He is getting saline at 10 cc an hour. I have asked the nurse to discontinue that. His Zosyn will be discontinued in favor of Omnicef 300 twice a day. The patient will need an outpatient PET scan, and follow-up with Dr. Flanagan. Labs today only include a sugar of 152. Labs from yesterday have been reviewed. Blood cultures are negative. Gram stain is negative. Chest CT is consistent with a right posterior hilar mass, and mediastinal adenopathy, most likely secondary to malignancy, not pneumonia. Objective - Vital Signs Vital signs: Vital Signs Temp 98.0 F 06/05/23 01:48 Pulse 73 06/05/23 01:48 Resp 16 06/05/23 01:48 BP 166/75 06/05/23 01:48 Pulse Ox 99 06/05/23 01:48 FiO2 Intake & Output 06/04/23 06/05/23 06/05/23 18:59 06:59 18:59 Intake Total 472 Balance 472 Intake: Oral 472 Other: Voiding Method Bedside Commode Bedside Commode # Voids 3 3 - Exam No acute distress, oriented 3. Currently on oxygen at 2 L. No respiratory distress. HEENT examination is grossly unremarkable. Mucous membranes are moist. No oral lesions. Neck supple. Full range of motion. No adenopathy thyromegaly or neck vein distention. Cardiovascular examination reveals regular rhythm rate. S1-S2 normal. No S3 or S4. No discernible murmur noted. Rate 75 bpm. Lungs reveal mostly clear breath sounds. Minimal rhonchi. No wheezes or crackles. Breath sounds are diminished throughout. Saturations are 99% on 2 L. Oxygen can be titrated down. Abdomen soft bowel sounds are heard. No masses or tenderness. Extremities are intact. No cyanosis clubbing or edema. Patient does have a left bktrb-[id number]-[id number] amputation. Skin is without rash or lesion. Neurologic examination is brief but nonfocal. - Labs CBC & Chem 7: 06/04/23 05:57 06/04/23 05:57 Labs: Abnormal Lab Results - Last 24 Hours (Table) 06/04/23 06/04/23 06/04/23 Range/Units 05:57 05:57 20:12 RBC 4.13 L (4.40-5.60) X 10*6/uL Hgb 8.9 L (13.0-17.0) g/dL Hct 30.7 L (39.6-50.0) % MCV 74.3 L (80.0-97.0) FL MCH 21.5 L (27.0-32.0) pg MCHC 29.0 L (32.0-37.0) g/dL RDW 17.4 H (11.5-14.5) % Plt Count 763 H (140-440) X 10*3/uL Immature Gran # 0.11 H (0.00-0.04) X 10*3/uL Neutrophils # 9.22 H (1.80-7.70) X 10*3/uL Lymphocytes # 0.44 L (0.90-5.00) X 10*3/uL Eosinophils # 0 L (0.04-0.35) X 10*3/uL Microcytosis (manual) 2+ A Elliptocytes 2+ A Schistocytes 2+ A Sodium 134 L (135-145) mmol/L Anion Gap 15.00 H (4.00-12.00) mmol/L BUN 29.3 H (9.0-27.0) mg/dL BUN/Creatinine Ratio 26.64 H (12.00-20.00) Ratio Glucose 261 H (70-110) mg/dL POC Glucose (mg/dL) 445 H (70-110) mg/dL Total Protein 6.0 L (6.2-8.2) g/dL Albumin 3.4 L (3.8-4.9) g/dL Albumin/Globulin Ratio 1.31 L (1.60-3.17) Ratio 06/05/23 Range/Units 06:16 RBC (4.40-5.60) X 10*6/uL Hgb (13.0-17.0) g/dL Hct (39.6-50.0) % MCV (80.0-97.0) FL MCH (27.0-32.0) pg MCHC (32.0-37.0) g/dL RDW (11.5-14.5) % Plt Count (140-440) X 10*3/uL Immature Gran # (0.00-0.04) X 10*3/uL Neutrophils # (1.80-7.70) X 10*3/uL Lymphocytes # (0.90-5.00) X 10*3/uL Eosinophils # (0.04-0.35) X 10*3/uL Microcytosis (manual) Elliptocytes Schistocytes Sodium (135-145) mmol/L Anion Gap (4.00-12.00) mmol/L BUN (9.0-27.0) mg/dL BUN/Creatinine Ratio (12.00-20.00) Ratio Glucose (70-110) mg/dL POC Glucose (mg/dL) 152 H (70-110) mg/dL Total Protein (6.2-8.2) g/dL Albumin (3.8-4.9) g/dL Albumin/Globulin Ratio (1.60-3.17) Ratio Microbiology - Last 24 Hours (Table) 06/01/23 09:17 Blood Culture - Preliminary Blood 06/02/23 15:45 Gram Stain - Preliminary Sputum Sputum Culture - Preliminary Assessment and Plan Assessment: Acute on chronic hypoxemic respiratory failure, secondary to acute COPD exacerbation. Chronic hypoxemic respiratory failure, on home O2. Recent hospitalization for bilateral community-acquired pneumonia, previously noted interstitial infiltrates appear to have improved on most recent chest x- ray. Procalcitonin is down to 0.14. Multiple pulmonary nodules, suspicious for metastatic disease, no outpatient follow-up. Most recent chest x-ray read demonstrates multiple bilateral masslike densities, as well as, a new left upper lobe mass suspicious for neopla sm and disease progression. Very severe chronic obstructive pulmonary disease, with an FEV1 24% of predicted. Leukocytosis. Chest pain, ACS ruled out. History of coronary artery disease, with previous PCI/stent. History of hyperlipidemia. Hypertension. Chronic anemia, microcytic hypochromic. Positive fecal occult. Moderate-sized hiatal hernia. Antral gastritis. GERD, with esophagitis. Diverticulosis without diverticulitis. History of left AKA. Former tobacco dependence. Plan: Plan dated June 05, 2023. The patient's Zosyn is discontinued in favor of Omnicef 300 twice a day. The patient does not have pneumonia, but rather likely has lung cancer. The patient is on 2 L of oxygen. He is getting saline at 10 cc an hour. I told the nurse to discontinue his IV. The patient does need an outpatient PET scan, and needs to follow-up with my partner who we saw last in July 2022. No additional recommendations are made. Prognosis is poor. Time with Patient: Less than 30
[2023-06-05 09:04] VITALS: BP 176/87; RESP 18; TEMP 98.2
[2023-06-05] MEDS: SODIUM FERRIC GLUCONAT-SUCROSE 125 MG in SODIUM CHLORIDE 0.9% 100 ML IVPB ONE (09:15)
[2023-06-05] MEDS: CEFDINIR 300 MG CAP PO SCH (09:24)
--- NOTE | 2023-06-05 10:57 | P.DS ---
Providers Date of admission: 05/31/23 05:21 Expected date of discharge: 05/29/23 Attending physician: Fidencio Barrientos Consults: 05/31/23 05:21 Consult Physician Urgent Consulting Provider: Elvis Gutierrez Consult Reason/Comments: chest pain Do you want consulting provider notified?: Yes 06/01/23 09:09 Consult Physician Routine Consulting Provider: Armando Davis Consult Reason/Comments: Elevated WBC Do you want consulting provider notified?: Yes 06/02/23 09:05 Consult Physician Routine Consulting Provider: Linwood Dover Consult Reason/Comments: abdnormal chest xray, pneumonia vs neoplasm Do you want consulting provider notified?: Yes Primary care physician: Fidenciolien Barrientos [place] [facility] Course: Diagnosis on discharge: Episode of chest pain leukocytosis. Previous history of coronary artery disease with history of angioplasty and stent placement Anemia hemoglobin 8.5, Will consult general surgery for GI evaluation Underlying history of hypertension Underlying history of hyperlipidemia Underlying history of chronic obstructive pulmonary disease Underlying history of peripheral arterial disease Underlying history of lower extremity amputation, left above-knee amputation Underlying history of migraine headache Underlying history of chronic low back pain Continued tobacco use Hospital course: Baldev Joyce, is a 72-year-old male who presented to [facility] emergency room with a chief complaint of chest pain He was evaluated in the emergency room vital examination on presentation re vealed a temperature of 98.8 pulse 73 respiration 16 blood pressure 131/76 pulse ox 94% on room air Laboratory data reveals a white blood count of 11.1 hemoglobin 8.5 platelet count 546 troponin 0.012 BNP 4240 Testing in the emergency room revealed EKG revealed sinus rhythm with occasional PVC chest x-ray revealed no acute abnormality Patient was admitted to medical floor for further evaluation and treatment On 06/01/2023 for patients alert and oriented 3. Patient reports improvement with chest pain. 2-D echo completed showing EF 55-60%. Awaiting general surgery consult for anemia. White blood cell elevated today at 15.43. We'll consult infectious disease services and check blood urine and sputum along with chest x-ray. Patient denies chest pain or shortness breath. Patient denies nausea vomiting or diarrhea. Patient denies any urinary burning or frequency. On 06/02/2023 patients alert and oriented 3. Plans today per surgical services EGD and colonoscopy. Pulmonary services also consulted for abnormal chest x- ray. Patient started on IV Zosyn per infectious disease. At this time patient denies chest pain or shortness of breath. Patient denies nausea vomiting or thien rrhea. Patient denies any urinary burning or frequency. On 06/03/2023 patient was seen and examined on the medical floor he is alert and oriented 3 in no apparent distress there is no fever or chills no headache or dizziness no chest pain no shortness of breath he has occasional cough no nausea or vomiting no abdominal pain no diarrhea and no urinary symptoms, hemoglobin is still declining, EGD and colonoscopy did not reveal significant abnormality, other than mild gastritis. Patient will be given 2 doses of IV iron, possible discharge to home tomorrow if stable. On 06/04/2023 patients alert and oriented 3. Patient receiving IV iron today. Patient will need PET scan outpatient per pulmonary recommendation. At this time patient denies chest pain or shortness of breath. Patient denies nausea vomiting or diarrhea. Patient denies any urinary burning or frequency. Patient did have a fall this morning denies hitting his head reports that he was just bending over and lost his balance On 06/05/2023 patient was seen and examined on the medical floor he is alert and oriented 3 in no apparent distress there is no fever or chills no headache or dizziness is still complaining of some cough and shortness of breath otherwise he denies any complaints he received 3 IV iron doses, hemoglobin is up to 8.9 today, patient will be discharged to home today, he was given a prescription for oral prednisone, and a prescription for oral iron, follow up in the office in 2- 3 days. Importance of following up with pulmonary and having a PET scan as outpatient was explained in details. Patient Condition at Discharge: Fair Plan - Discharge Summary Discharge Rx Participant: Yes New Discharge Prescriptions: New Nitroglycerin Sl Tabs [Nitrostat] 0.4 mg SUBLINGUAL Q5M PRN 30 Days #25 tab PRN Reason: Chest Pain predniSONE 10 mg PO DAILY 12 Days #30 tab Ferrous Sulfate [Feosol] 325 mg PO DAILY 30 Days #30 tab Cefdinir [Omnicef] 300 mg PO BID 5 Days #10 cap Continue Aspirin 81 mg PO DAILY DULoxetine HCL [Cymbalta] 60 mg PO DAILY lisinopriL [Prinivil] 20 mg PO DAILY Pantoprazole Sodium [Protonix] 40 mg PO DAILY amLODIPine [Norvasc] 5 mg PO DAILY Albuterol Sulfate [Proair Hfa] 2 puff INHALATION RT-QID PRN PRN Reason: Shortness Of Breath Primidone [Mysoline] 25 mg PO HS Nitroglycerin Sl Tabs [Nitrostat] 0.4 mg SL Q5M PRN PRN Reason: Chest Pain Escitalopram [Lexapro] 20 mg PO DAILY traZODone HCL [Desyrel] 50 mg PO HS PRN PRN Reason: Insomnia Atorvastatin [Lipitor] 80 mg PO DAILY #30 tab Metoprolol Succinate (ER) [Toprol XL] 25 mg PO DAILY #30 tab.er.24h Tamsulosin [Flomax] 0.4 mg PO DAILY HYDROcodone/APAP 10-325MG [Arpin 10-325] 1 tab PO Q6HR PRN PRN Reason: Pain Loratadine [Claritin] 10 mg PO DAILY Megestrol Acetate 400 mg PO DAILY Albuterol Nebulized [Ventolin Nebulized] 2.5 mg INHALATION RT-Q6H PRN PRN Reason: Shortness Of Breath Or Wheezing Gabapentin 600 mg PO TID Fluticasone/Umeclidin/Vilanter [Trelegy Ellipta 200-62.5-25] 1 puff INHALATION RT-DAILY Ipratropium-Albuterol Nebulize [Duoneb 0.5 mg-3 mg/3 ml Soln] 3 ml INHALATION RT-QID 30 Days #120 each Lidocaine 4% Patch 1 patch TOPICAL DAILY@1999 30 Days #30 patch Budesonide-Formot 160-4.5 Mcg [Symbicort 160-4.5 Mcg Inhaler] 2 puff INHALATION RT-BID 30 Days #1 each Discharge Medication List Aspirin 81 mg PO DAILY 01/14/14 [History] DULoxetine HCL [Cymbalta] 60 mg PO DAILY 01/14/14 [History] lisinopriL [Prinivil] 20 mg PO DAILY 01/14/14 [History] Pantoprazole Sodium [Protonix] 40 mg PO DAILY 06/13/18 [History] amLODIPine [Norvasc] 5 mg PO DAILY 06/13/18 [History] Atorvastatin [Lipitor] 80 mg PO DAILY #30 tab 07/20/20 [Rx] Metoprolol Succinate (ER) [Toprol XL] 25 mg PO DAILY #30 tab.er.24h 07/20/20 [Rx] Albuterol Sulfate [Proair Hfa] 2 puff INHALATION RT-QID PRN 08/29/21 [History] Tamsulosin [Flomax] 0.4 mg PO DAILY 08/29/21 [History] HYDROcodone/APAP 10-325MG [Arpin 10-325] 1 tab PO Q6HR PRN 07/12/22 [History] Primidone [Mysoline] 25 mg PO HS 07/12/22 [History] Loratadine [Claritin] 10 mg PO DAILY 08/13/22 [History] Nitroglycerin Sl Tabs [Nitrostat] 0.4 mg SL Q5M PRN 08/13/22 [History] Albuterol Nebulized [Ventolin Nebulized] 2.5 mg INHALATION RT-Q6H PRN 03/23/23 [History] Escitalopram [Lexapro] 20 mg PO DAILY 03/23/23 [History] Fluticasone/Umeclidin/Vilanter [Trelegy Ellipta 200-62.5-25] 1 puff INHALATION RT-DAILY 03/23/23 [History] Gabapentin 600 mg PO TID 03/23/23 [History] Megestrol Acetate 400 mg PO DAILY 03/23/23 [History] traZODone HCL [Desyrel] 50 mg PO HS PRN 04/17/23 [History] Budesonide-Formot 160-4.5 Mcg [Symbicort 160-4.5 Mcg Inhaler] 2 puff INHALATION RT-BID 30 Days #1 each 04/21/23 [Rx] Ipratropium-Albuterol Nebulize [Duoneb 0.5 mg-3 mg/3 ml Soln] 3 ml INHALATION RT-QID 30 Days #120 each 04/21/23 [Rx] Lidocaine 4% Patch 1 patch TOPICAL DAILY@1999 30 Days #30 patch 04/21/23 [Rx] Cefdinir [Omnicef] 300 mg PO BID 5 Days #10 cap 06/05/23 [Rx] Ferrous Sulfate [Feosol] 325 mg PO DAILY 30 Days #30 tab 06/05/23 [Rx] Nitroglycerin Sl Tabs [Nitrostat] 0.4 mg SUBLINGUAL Q5M PRN 30 Days #25 tab 06/05/23 [Rx] predniSONE 10 mg PO DAILY 12 Days #30 tab 06/05/23 [Rx] Follow up Appointment(s)/Referral(s): Patricio Flanagan MD [STAFF PHYSICIAN] - 1 Week Paxton Palafox MD [STAFF PHYSICIAN] - 2 Weeks Fidencio Barrientos MD [Primary Care Provider] - 1-2 days Activity/Diet/Wound Care/Special Instructions: Transition home health: #[phone] Please call [facility] #[phone] or [facility]: #[phone] for transportation to appointments. They will need at least 24h notice.
[2023-06-05 12:00] LABS: Glucose,Whole Blood 196 mg/dL (70-110)
[2023-06-05 13:01] VITALS: PULSE 74
== END 2023-06-05 16:05 | disposition home health service (06) | DRG 377 ==
LOC: EC 01:13 → OBSVTOIN 05:21 → 6NMEDSUR 05:21
PROVIDERS: ADMIT Internal Medicine; ATTEND Internal Medicine
PROC: 0DJD8ZZ Inspection of Lower Intestinal Tract, Via Natural or Artificial Opening Endoscopic (ICD-10-PCS; 2023-06-02)
PROC: 0DB38ZX Excision of Lower Esophagus, Via Natural or Artificial Opening Endoscopic, Diagnostic (ICD-10-PCS; principal; 2023-06-02 14:50)
PROC: 0DB78ZX Excision of Stomach, Pylorus, Via Natural or Artificial Opening Endoscopic, Diagnostic (ICD-10-PCS; 2023-06-02 14:50)
DX: K29.71 Gastritis, unspecified, with bleeding (principal); J96.21 Acute and chronic respiratory failure with hypoxia; R64 Cachexia; I25.110 Atherosclerotic heart disease of native coronary artery with unstable angina pectoris; J44.1 Chronic obstructive pulmonary disease with (acute) exacerbation; C34.12 Malignant neoplasm of upper lobe, left bronchus or lung; Z68.1 Body mass index [BMI] 19.9 or less, adult; K22.11 Ulcer of esophagus with bleeding; K21.01 Gastro-esophageal reflux disease with esophagitis, with bleeding; I27.20 Pulmonary hypertension, unspecified; E11.51 Type 2 diabetes mellitus with diabetic peripheral angiopathy without gangrene; Z89.612 Acquired absence of left leg above knee; I10 Essential (primary) hypertension; D50.9 Iron deficiency anemia, unspecified; I08.1 Rheumatic disorders of both mitral and tricuspid valves; E78.5 Hyperlipidemia, unspecified; K44.9 Diaphragmatic hernia without obstruction or gangrene; K63.89 Other specified diseases of intestine; K57.30 Diverticulosis of large intestine without perforation or abscess without bleeding; G43.909 Migraine, unspecified, not intractable, without status migrainosus; G89.29 Other chronic pain; W18.30XA Fall on same level, unspecified, initial encounter; Z99.81 Dependence on supplemental oxygen; Z95.5 Presence of coronary angioplasty implant and graft; Z95.820 Peripheral vascular angioplasty status with implants and grafts; M54.50 Low back pain, unspecified; K59.00 Constipation, unspecified; I49.1 Atrial premature depolarization; I49.40 Unspecified premature depolarization; R59.0 Localized enlarged lymph nodes; I49.3 Ventricular premature depolarization; Y92.239 Unspecified place in hospital as the place of occurrence of the external cause; Z91.198 Patient's noncompliance with other medical treatment and regimen for other reason; Z87.891 Personal history of nicotine dependence; Z79.82 Long term (current) use of aspirin; Z79.899 Other long term (current) drug therapy; Z79.51 Long term (current) use of inhaled steroids; Z79.02 Long term (current) use of antithrombotics/antiplatelets; Z79.52 Long term (current) use of systemic steroids; Z88.1 Allergy status to other antibiotic agents; I25.2 Old myocardial infarction; Z86.14 Personal history of Methicillin resistant Staphylococcus aureus infection; Z86.19 Personal history of other infectious and parasitic diseases; Z90.79 Acquired absence of other genital organ(s); Z59.82 Transportation insecurity; Z87.01 Personal history of pneumonia (recurrent); Z11.52 Encounter for screening for COVID-19
CPT/HCPCS: 36415; 43239; 45378; 71046; 71260; 80053; 80061; 81003; 82272; 82607; 82746; 83036; 83540; 83550; 83735; 83880; 84145; 84484; 85025; 85610; 85730; 86140; 87040; 87070; 87205; 87636; 88305; 88312; 93005; 93306; 94640; 94760; 96372; 96374; 96375; 96376; 99285

== ENCOUNTER → 2023-08-12 | Outpatient (CLI) | payer MEDICARE ==
--- NOTE | 2023-08-14 11:06 | PE ---
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 Images are reviewed on the computer in the coronal, a xial, and sagittal planes. Reconstructed rotating images are created on independent workstation and reviewed on the computer. A non-contrast CT is performed in conjunction with the PET scan. Glucose level 143 mg/dL CT DLP: 233 mGycm, Automated exposure control for dose reduction was used. COMPARISON: CT 06/03/2023, PET/CT None, FINDINGS: Mediastinal SUV mean is 1.97 . Hepatic parenchyma SUV mean is 1.95. SKULL BASE AND NECK: No suspicious radiotracer activity. CHEST, MEDIASTINUM, AND HILAR REGION: Left medial apical nodule with increased metabolic activity carlitos suring 31 x 24 mm Max SUV 13.69. ABDOMEN AND PELVIS: Small focus of uptake which is now apparent CT measuring Max SUV 3.8. MUSCULOSKELETAL STRUCTURES: No suspicious radiotracer activity. OTHER CT: Atherosclerosis of the arterial vasculature including the carotid bifurcations and coronary arteries. Scattered colonic diverticula. Deformity left proximal femur compatible with prior fractur e. IMPRESSION: 1. Left upper lung medial mass measuring up to 31 x 24 mm with metabolic activity compatible with ma lignancy. 2. Small focus of uptake within the dome of the liver is indeterminate. Consider MRI liver mass prot ocol for further evaluation.
== END | disposition home or self-care (01) ==
LOC: RADPETMAIN 13:09
PROVIDERS: ATTEND Internal Medicine
DX: C38.8 Malignant neoplasm of overlapping sites of heart, mediastinum and pleura (principal); R91.8 Other nonspecific abnormal finding of lung field
CPT/HCPCS: 78815; A9552

== ENCOUNTER → 2023-11-09 | Outpatient (CLI) | payer MEDICARE ==
--- NOTE | 2023-11-10 13:25 | MR ---
EXAMINATION TYPE: MR liver wo/w con DATE OF EXAM: 11/09/2023 5:59 PM CLINICAL INDICATION:Male, 73 years old with history of R93.2, Abnormal findings on prior imaging. COMPARISON: PET/CT 08/12/2023. TECHNIQUE: Multiplanar multi-sequence imaging was performed without contrast. Post contrast imaging was performed. Post IV contrast subtraction images were also submitted for review. IV Contrast: 5 cc Gadavist FINDINGS: LOWER CHEST: No gross irregularity. ABDOMEN Liver: No evidence for hepatic steatosis or cirrhosis. No correlate for PET/CT. Gallbladder and Bile ducts: The common hepatic duct measure sup to 6 mm and 8 mm common bile duct. No evidence for ductal dilation, or biliary stricture or evidence of choledocholithiasis. The gallbladd er is within normal limits with layer gallstones. Pancreas: No ductal dilation. No evidence for solid mass. Spleen: Normal for size. Adrenal glands: Unremarkable. Kidneys: No evidence for obstructive uropathy. No suspicious renal masses. Bilateral subcentimeter renal simple appearing cyst. Stomach and Bowel: No evidence for bowel wall thickening or evidence for obstruction. The appendix is normal. Retroperitoneum/Peritoneum: No evidence of pneumoperitoneum or free fluid. Vasculature: No aortic aneurysm. Musculoskeletal: The osseous structures appear intact. Multilevel degeneration changes through the sp ine. T12 compression deformity with 50% height loss. Lymph Nodes: No gross evidence for lymphadenopathy. Abdominal wall: Unremarkable. IMPRESSION: 1. Respiratory motion limited exam, No definitive correlate for uptake. Attention on followup PET/CT . 2. Simple renal and hepatic cysts. 3. Cholelithiasis.
== END | disposition home or self-care (01) ==
LOC: RADMRIMAIN 16:37
PROVIDERS: ATTEND Internal Medicine
DX: R93.2 Abnormal findings on diagnostic imaging of liver and biliary tract (principal); K80.20 Calculus of gallbladder without cholecystitis without obstruction
CPT/HCPCS: 74183; A9585

== ENCOUNTER 2024-05-29 08:35 | Inpatient (IN) | payer MEDICARE ==
--- NOTE | 2024-05-29 09:05 | ED ---
General Adult HPI - General Chief complaint: Weakness Stated complaint: weakness Time Seen by Provider: 05/29/24 08:40 Source: patient, EMS, RN notes reviewed, old records reviewed Mode of arrival: EMS Limitations: physical limitation - History of Present Illness Initial comments: This is a 73-year-old male who presents to the emergency department with a AKA on the left. Patient states is secondary to circulation problems. Patient states he is also has bad COPD and has had a heart attack with a stent placement. Patient states he also had a stent placed in his leg. Patient states this morning he got up to transfer over to the bedside commode and he was unable to do so because he was too weak and that is when he decided come to the emergency department. Patient denies any fever chills states he does have a cough. Patient denies any chest pain or palpitations. Patient denies being any more short of breath than normal. Patient denies any nausea vomiting diarrhea. Patient has abdominal pain. Patient has any back pain. - Related Data Home Medications Medication Instructions Recorded Confirmed Aspirin 81 mg PO DAILY 01/14/14 05/31/23 DULoxetine HCL [Cymbalta] 60 mg PO DAILY 01/14/14 05/31/23 lisinopriL [Prinivil] 20 mg PO DAILY 01/14/14 05/31/23 Pantoprazole Sodium [Protonix] 40 mg PO DAILY 06/13/18 05/31/23 amLODIPine [Norvasc] 5 mg PO DAILY 06/13/18 05/31/23 Albuterol Sulfate [Proair Hfa] 2 puff INHALATION RT-QID PRN 08/29/21 05/31/23 Tamsulosin [Flomax] 0.4 mg PO DAILY 08/29/21 05/31/23 HYDROcodone/APAP 10-325MG [[place] 1 tab PO Q6HR PRN 07/12/22 05/31/23 10-325] Primidone [Mysoline] 25 mg PO HS 07/12/22 05/31/23 Loratadine [Claritin] 10 mg PO DAILY 08/13/22 05/31/23 Nitroglycerin Sl Tabs [Nitrostat] 0.4 mg SL Q5M PRN 08/13/22 05/31/23 Albuterol Nebulized [Ventolin 2.5 mg INHALATION RT-Q6H PRN 03/23/23 05/31/23 Nebulized] Escitalopram [Lexapro] 20 mg PO DAILY 03/23/23 05/31/23 Fluticasone/Umeclidin/Vilanter 1 puff INHALATION RT-DAILY 03/23/23 05/31/23 [Trelegy Ellipta 200-62.5-25] Gabapentin 600 mg PO TID 03/23/23 05/31/23 Megestrol Acetate 400 mg PO DAILY 03/23/23 05/31/23 traZODone HCL [Desyrel] 50 mg PO HS PRN 04/17/23 05/31/23 Previous Rx's Medication Instructions Recorded Atorvastatin [Lipitor] 80 mg PO DAILY #30 tab 07/20/20 Metoprolol Succinate (ER) [Toprol 25 mg PO DAILY #30 tab.er.24h 07/20/20 XL] Budesonide-Formot 160-4.5 Mcg 2 puff INHALATION RT-BID 30 Days 04/21/23 [Symbicort 160-4.5 Mcg Inhaler] #1 each Ipratropium-Albuterol Nebulize 3 ml INHALATION RT-QID 30 Days 04/21/23 [Duoneb 0.5 mg-3 mg/3 ml Soln] #120 each Lidocaine 4% Patch 1 patch TOPICAL DAILY@1999 30 Days 04/21/23 #30 patch Cefdinir [Omnicef] 300 mg PO BID 5 Days #10 cap 06/05/23 Ferrous Sulfate [Feosol] 325 mg PO DAILY 30 Days #30 tab 06/05/23 Nitroglycerin Sl Tabs [Nitrostat] 0.4 mg SUBLINGUAL Q5M PRN 30 Days 06/05/23 #25 tab predniSONE 10 mg PO DAILY 12 Days #30 tab 06/05/23 Allergies Allergy/AdvReac Type Severity Reaction Status Date / Time azithromycin [From Zithromax] Allergy Rash/Hives Verified 05/29/24 08:41 Review of Systems ROS Statement: Those systems with pertinent positive or pertinent negative responses have been documented in the HPI. ROS Other: All systems not noted in ROS Statement are negative. 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 knee wound + FOR MRSA. History of high left above-knee amputation done approximately 2009. Last Myocardial Infarction Date:: 2003 History of Any Multi-Drug Resistant Organisms: Acinetobacter (MDRO), MRSA Date of last positivie culture/infection: 04/02/16 MDRO Source:: LT KNEE WOUND Past Surgical History: Heart Catheterization With Stent, Orthopedic Surgery Additional Past Surgical History / Comment(s): STENTS TO LEFT GROIN, LEFT ABOVE THE KNEE AMPUTATION, unsuccessful revascularization left leg, shoulder surgery, surgical debridement of necrotic tissue left scrotal area, LT AKA 03/03/16. left testicle removed. heart stent x1 broken left hip Past Anesthesia/Blood Transfusion Reactions: No Reported Reaction Date of Last Stent Placement:: 2006 Past Psychological History: Depression Smoking Status: Former smoker Past Alcohol Use History: None Reported Past Drug Use History: Marijuana - Past Family History Sister(s) History Unknown: Yes Family Medical History: Cancer Additional Family Medical History / Comment(s): double mastectomy, still surviving Father History Unknown: Yes Family Medical History: No Reported History Mother History Unknown: Yes Family Medical History: No Reported History Additional Family Medical History / Comment(s): hypoglycemia General Exam - General Exam Comments Initial Comments: GENERAL: Patient is well-developed and well-nourished. Patient is nontoxic and well-hy drated and is in mild distress. ENT: Neck is soft and supple. No significant lymphadenopathy is noted. Oropharynx is clear. Moist mucous membranes. Neck has full range of motion without eliciting any pain. EYES: The sclera were anicteric and conjunctiva were pink and moist. Extraocular move ments were intact and pupils were equal round and reactive to light. Eyelids were unremarkable. PULMONARY: Unlabored respirations. Good breath sounds bilaterally. No audible rales rhonchi or wheezing was noted. CARDIOVASCULAR: There is a regular rate and rhythm without any murmurs gallops or rubs. ABDOMEN: Soft and nontender with normal bowel sounds. SKIN: Skin is clear with no lesions or rashes and otherwise unremarkable. NEUROLOGIC: Patient is alert and oriented x3. Cranial nerves II through XII are grossly intact. Motor and sensory are also intact. Normal speech, volume and content. Symmetrical smile. MUSCULOSKELETAL: AKA on the left. Patient has full range of motion of the right extremity and upper extremities. LYMPHATICS: No significant lymphadenopathy is noted PSYCHIATRIC: Normal psychiatric evaluation. Limitations: physical limitation Course Vital Signs 05/29/24 08:36 Temperature 98.9 F Pulse Rate 77 Respiratory 20 Rate Blood Pressure 156/73 O2 Sat by Pulse 92 L Oximetry Medical Decision Making - Medical Decision Making EKG is interpreted by myself but EKG shows a sinus rhythm at 75 bpm NH is 173 QRS is 89 QT interval 385 QTc is 415. Patient's EKG shows no ST segment elevation. Was pt. sent in by a medical professional or institution (, PA, OFF[employer] SPEC, urgent care, hospital, or custodial...) When possible be specific @ -No Did you speak to anyone other than the patient for history (EMS, parent, family, police, friend...)? What history was obtained from this source @ -No Did you review nursing and triage notes (agree or disagree)? Why? @ -I reviewed and agree with nursing and triage notes Were old charts reviewed (outside hosp., previous admission, EMS record, old EKG, old radiological studies, urgent care reports/EKG's, custodial records)? Report findings @ -No old charts were reviewed Differential Diagnosis? @ -Differential Weakness: Hypoglycemia, shock, sepsis, hyponatremia, anemia, infection, [place], ETOH, adverse medicine reaction, overdose, stroke, this is not meant to be an all-inclusive list. EKG interpreted by me (3pts min.). @ -As above X-rays interpreted by me (1pt min.). @ -Chest x-ray shows bilateral infiltrate consistent with pneumonia CT interpreted by me (1pt min.). @ -None done U/S interpreted by me (1pt. min.). @ -None done What testing was considered but not performed or refused? (CT, X-rays, U/S, labs)? Why? @ -None What meds were considered but not given or refused? Why? @ -None Did you discuss the management of the patient with other professionals (imer coronado i.e. , CLARA, [facility], lab, RT, psych nurse, psychotherapist social worker, highway patrol commander, teacher, traffic division commanding officer, skilled nursing case manager)? Give summary @ -I spoke with Dr. Barrientos he agreed to admit the patient Was smoking cessation discussed for >3mins.? @ -No Was critical care preformed (if so, how long)? @ -No Were there social determinants of health that impacted care today? How? (Homelessness, low income, unemployed, alcoholism, drug addiction, transportation, low edu. Level, literacy, decrease access to med. care, alf, rehab)? @ -No Was there de-escalation of care discussed even if they declined (Discuss DNR or withdrawal of care, Hospice)? DNR status @ -No What co-morbidities impacted this encounter? (DM, HTN, Smoking, COPD, CAD, Cancer, CVA, ARF, Chemo, Hep., AIDS, mental health diagnosis, sleep apnea, morbid obesity)? @ -None Was patient admitted / discharged? Hospital course, mention meds given and route, prescriptions, significant lab abnormalities, going to OR and other pertinent info. @ -Patient showed a pneumonia on the x-ray so patient got 2 g of Rocephin and 500 mg of Zithromax. Patient also was given IV fluids. Patient will be admitted to Dr. Floyd Flowers wrote admitting orders Undiagnosed new problem with uncertain prognosis? @ -No Drug Therapy requiring intensive monitoring for toxicity (Heparin, Nitro, Insulin, Cardizem)? @ -No Were any procedures done? @ -No Diagnosis/symptom? @ -Pneumonia Acute, or Chronic, or Acute on Chronic? @ -Acute Uncomplicated (without systemic symptoms) or Complicated (systemic symptoms)? @ -Complicated Side effects of treatment? @ -No Exacerbation, Progression, or Severe Exacerbation? @ -No Poses a threat to life or bodily function? How? (Chest pain, [place], [place], pneumonia, PE, COPD, DKA, ARF, appy, cholecystitis, CVA, Diverticulitis, Homicidal, Suicidal, threat to staff... and all critical care pts) @ -Yes this can lead to hypoxia and endorgan dysfunction Diagnosis/symptom? @ -Weakness Acute, or Chronic, or Acute on Chronic? @ -Acute Uncomplicated (without systemic symptoms) or Complicated (systemic symptoms)? @ -Complicated Side effects of treatment? @ -None Exacerbation, Progression, or Severe Exacerbation] @ -No Poses a threat to life or bodily function? @ -No - Lab Data Result diagrams: 05/29/24 09:12 05/29/24 09:12 Lab Results 05/29/24 05/29/2425 Range/Units 09:12 09:12 09:12 WBC 18.1 H (3.8-10.6) k/uL RBC 4.70 (4.30-5.90) m/uL Hgb 11.9 L (13.0-17.5) gm/dL Hct 39.2 (39.0-53.0) % MCV 83.5 (80.0-100.0) fL MCH 25.4 (25.0-35.0) pg MCHC 30.5 L (31.0-37.0) g/dL RDW 15.7 H (11.5-15.5) % Plt Count 579 H (150-450) k/uL MPV 7.5 Neutrophils % 91 % Lymphocytes % 2 % Monocytes % 4 % Eosinophils % 1 % Basophils % 0 % Neutrophils # 16.6 H (1.3-7.7) k/uL Lymphocytes # 0.4 L (1.0-4.8) k/uL Monocytes # 0.8 (0-1.0) k/uL Eosinophils # 0.2 (0-0.7) k/uL Basophils # 0.0 (0-0.2) k/uL Hypochromasia Marked PT 11.6 (10.0-12.5) sec INR 1.1 (<1.2) APTT 29.6 (22.0-30.0) sec Sodium 130 L (137-145) mmol/L Potassium 5.4 H (3.5-5.1) mmol/L Chloride 99 (98-107) mmol/L Carbon Dioxide 24 (22-30) mmol/L Anion Gap 7 mmol/L BUN 41 H (9-20) mg/dL Creatinine 0.69 (0.66-1.25) mg/dL Est GFR (CKD-EPI)AfAm >90 (>60 ml/min/1.73 sqM) Est GFR (CKD-EPI)NonAf >90 (>60 ml/min/1.73 sqM) Glucose 157 H (74-99) mg/dL Plasma Lactic Acid Mike (0.7-2.0) mmol/L Calcium 7.9 L (8.4-10.2) mg/dL Magnesium 2.1 (1.6-2.3) mg/dL Total Bilirubin 0.7 (0.2-1.3) mg/dL AST 20 (17-59) U/L ALT 14 (4-49) U/L Alkaline Phosphatase 92 (38-126) U/L Troponin I (0.000-0.034) ng/mL Total Protein 6.0 L (6.3-8.2) g/dL Albumin 2.5 L (3.5-5.0) g/dL Urine Color Urine Appearance (Clear) Urine pH (5.0-8.0) Ur Specific [place] (1.001-1.035) Urine Protein (Negative) Urine Glucose (UA) (Negative) Urine Ketones (Negative) Urine Blood (Negative) Urine Nitrite (Negative) Urine Bilirubin (Negative) Urine Urobilinogen (<2.0) mg/dL Ur Leukocyte Esterase (Negative) Influenza Type A (PCR) (Not Detectd) Influenza Type B (PCR) (Not Detectd) RSV (PCR) (Not Detectd) SARS-CoV-2 (PCR) (Not Detectd) 05/29/24 05/29/24 05/29/24 Range/Units 09:12 09:12 09:12 WBC (3.8-10.6) k/uL RBC (4.30-5.90) m/uL Hgb (13.0-17.5) gm/dL Hct (39.0-53.0) % MCV (80.0-100.0) fL MCH (25.0-35.0) pg MCHC (31.0-37.0) g/dL RDW (11.5-15.5) % Plt Count (150-450) k/uL MPV Neutrophils % % Lymphocytes % % Monocytes % % Eosinophils % % Basophils % % Neutrophils # (1.3-7.7) k/uL Lymphocytes # (1.0-4.8) k/uL Monocytes # (0-1.0) k/uL Eosinophils # (0-0.7) k/uL Basophils # (0-0.2) k/uL Hypochromasia PT (10.0-12.5) sec INR (<1.2) APTT (22.0-30.0) sec Sodium (137-145) mmol/L Potassium (3.5-5.1) mmol/L Chloride (98-107) mmol/L Carbon Dioxide (22-30) mmol/L Anion Gap mmol/L BUN (9-20) mg/dL Creatinine (0.66-1.25) mg/dL Est GFR (CKD-EPI)AfAm (>60 ml/min/1.73 sqM) Est GFR (CKD-EPI)NonAf (>60 ml/min/1.73 sqM) Glucose (74-99) mg/dL Plasma Lactic Acid Mike 0.8 (0.7-2.0) mmol/L Calcium (8.4-10.2) mg/dL Magnesium (1.6-2.3) mg/dL Total Bilirubin (0.2-1.3) mg/dL AST (17-59) U/L ALT (4-49) U/L Alkaline Phosphatase (38-126) U/L Troponin I <0.012 (0.000-0.034) ng/mL Total Protein (6.3-8.2) g/dL Albumin (3.5-5.0) g/dL Urine Color Urine Appearance (Clear) Urine pH (5.0-8.0) Ur Specific [place] (1.001-1.035) Urine Protein (Negative) Urine Glucose (UA) (Negative) Urine Ketones (Negative) Urine Blood (Negative) Urine Nitrite (Negative) Urine Bilirubin (Negative) Urine Urobilinogen (<2.0) mg/dL Ur Leukocyte Esterase (Negative) Influenza Type A (PCR) Not Detected (Not Detectd) Influenza Type B (PCR) Not Detected (Not Detectd) RSV (PCR) Not Detected (Not Detectd) SARS-CoV-2 (PCR) Not Detected (Not Detectd) 05/29/24 Range/Units 10:02 WBC (3.8-10.6) k/uL RBC (4.30-5.90) m/uL Hgb (13.0-17.5) gm/dL Hct (39.0-53.0) % MCV (80.0-100.0) fL MCH (25.0-35.0) pg MCHC (31.0-37.0) g/dL RDW (11.5-15.5) % Plt Count (150-450) k/uL MPV Neutrophils % % Lymphocytes % % Monocytes % % Eosinophils % % Basophils % % Neutrophils # (1.3-7.7) k/uL Lymphocytes # (1.0-4.8) k/uL Monocytes # (0-1.0) k/uL Eosinophils # (0-0.7) k/uL Basophils # (0-0.2) k/uL Hypochromasia PT (10.0-12.5) sec INR (<1.2) APTT (22.0-30.0) sec Sodium (137-145) mmol/L Potassium (3.5-5.1) mmol/L Chloride (98-107) mmol/L Carbon Dioxide (22-30) mmol/L Anion Gap mmol/L BUN (9-20) mg/dL Creatinine (0.66-1.25) mg/dL Est GFR (CKD-EPI)AfAm (>60 ml/min/1.73 sqM) Est GFR (CKD-EPI)NonAf (>60 ml/min/1.73 sqM) Glucose (74-99) mg/dL Plasma Lactic Acid Mike (0.7-2.0) mmol/L Calcium (8.4-10.2) mg/dL Magnesium (1.6-2.3) mg/dL Total Bilirubin (0.2-1.3) mg/dL AST (17-59) U/L ALT (4-49) U/L Alkaline Phosphatase (38-126) U/L Troponin I (0.000-0.034) ng/mL Total Protein (6.3-8.2) g/dL Albumin (3.5-5.0) g/dL Urine Color Light Yellow Urine Appearance Clear (Clear) Urine pH 5.0 (5.0-8.0) Ur Specific [place] 1.014 (1.001-1.035) Urine Protein Negative (Negative) Urine Glucose (UA) Negative (Negative) Urine Ketones Negative (Negative) Urine Blood Negative (Negative) Urine Nitrite Negative (Negative) Urine Bilirubin Negative (Negative) Urine Urobilinogen <2.0 (<2.0) mg/dL Ur Leukocyte Esterase Negative (Negative) Influenza Type A (PCR) (Not Detectd) Influenza Type B (PCR) (Not Detectd) RSV (PCR) (Not Detectd) SARS-CoV-2 (PCR) (Not Detectd) Disposition Clinical Impression: Pneumonia, Weakness Disposition: ADMITTED IP TO THIS HOSP Referrals: Fidencio Barrientos MD [Primary Care Provider] - 1-2 days Time of Disposition: 10:32
[2024-05-29] MEDS: SODIUM CHLORIDE 0.9% 1,000 ML IV STA (09:10)
[2024-05-29 09:25] LABS: Basophils % (A) 0 %; Eosinophils # (A) 0.2 k/uL (0-0.7); Eosinophils % (A) 1 %; HCT 39.2 % (39.0-53.0); HGB 11.9 gm/dL (13.0-17.5); Hypochromasia Marked; Lymphocytes # (A) 0.4 k/uL (1.0-4.8); Lymphocytes % (A) 2 %; MCH 25.4 pg (25.0-35.0); MCHC 30.5 g/dL (31.0-37.0); MCV 83.5 fL (80.0-100.0); Mean Platelet Volume 7.5; Monocytes # (A) 0.8 k/uL (0-1.0); Monocytes % (A) 4 %; Neutrophils # (A) 16.6 k/uL (1.3-7.7); Neutrophils % (A) 91 %; Platelet Count 579 k/uL (150-450); RDW 15.7 % (11.5-15.5); WBC 18.1 k/uL (3.8-10.6)
[2024-05-29 09:43] LABS: ALT 14 U/L (4-49); AST 20 U/L (17-59); African American GFR (CKD) >90 (>60 ml/min/1.73 sqM); Albumin 2.5 g/dL (3.5-5.0); Alkaline Phosphatase 92 U/L (38-126); Anion Gap 7 mmol/L; Blood Urea Nitrogen 41 mg/dL (9-20); Calcium 7.9 mg/dL (8.4-10.2); Carbon Dioxide 24 mmol/L (22-30); Chloride 99 mmol/L (98-107); Glucose 157 mg/dL (74-99); Magnesium 2.1 mg/dL (1.6-2.3); Non-African American GFR(CKD) >90 (>60 ml/min/1.73 sqM); Potassium 5.4 mmol/L (3.5-5.1); Sodium 130 mmol/L (137-145); Total Bilirubin 0.7 mg/dL (0.2-1.3)
--- NOTE | 2024-05-29 09:47 | XR ---
EXAMINATION TYPE: XR chest 2V DATE OF EXAM: 05/29/2024 9:42 AM COMPARISON: 05/02/2024 CLINICAL INDICATION: Male, 73 years old with history of Weakness, TECHNIQUE: XR chest 2V view(s) obtained. FINDINGS: The heart size is normal. The pulmonary vasculature is upper limits of normal. Patchy bilateral lung infiltrates are present in the left perihilar and right lower lobes. IMPRESSION: 1. Patchy bilateral lung infiltrates. Correlate for pneumonia. Early noncardiogenic pulmonary edema c ould be considered. Follow-up recommended [facility] Moe Finch, , 05/29/2024 9:44 AM
[2024-05-29 09:48] LABS: INR 1.1 (<1.2); Partial Thromboplastin Time 29.6 sec (22.0-30.0); Prothrombin Time 11.6 sec (10.0-12.5)
[2024-05-29 09:55] LABS: Influenza A Not Detected (Not Detectd); Influenza B Not Detected (Not Detectd); RSV Not Detected (Not Detectd)
[2024-05-29 10:17] LABS: Appearance,Urine Clear (Clear); Bilirubin,Urine Negative (Negative); Blood,Urine Negative (Negative); Color,Urine Light Yellow; Glucose,Urine (UA) Negative (Negative); Ketones,Urine Negative (Negative); Leukocyte Esterase,Urine Negative (Negative); Nitrite,Urine Negative (Negative); Protein,Urine Negative (Negative); Specific Gravity,Urine 1.014 (1.001-1.035); Urobilinogen,Urine <2.0 mg/dL (<2.0)
[2024-05-29] MEDS: AZITHROMYCIN 500 MG in SODIUM CHLORIDE 0.9% 250 ML IVPB STA (10:29)
[2024-05-29] MEDS ORDERED: ALBUTEROL NEBULIZED 2.5 MG/3 ML INHALATION PRN (10:33)
[2024-05-29] MEDS ORDERED: PNEUMONIA PROTOCOL UTILIZED 1 EACH MISC PO PRN (10:33)
[2024-05-29] MEDS: cefTRIAXone IN SWFI 1,000 MG/10 ML SYRINGE IVP STA (10:34)
[2024-05-29] MEDS: LEVOFLOXACIN 750MG-D5W PMX 750 MG in DEXTROSE/WATER 1 150ML.BAG IVPB STA (10:37)
[2024-05-29] MEDS ORDERED: NITROGLYCERIN SL TABS 0.4 MG TAB SUBLINGUAL PRN (15:40)
[2024-05-29] MEDS ORDERED: ALBUTEROL HFA INHALER INHALATION PRN (15:40)
[2024-05-29] MEDS: ESCITALOPRAM 20 MG TAB PO SCH (16:00)
[2024-05-29] MEDS: CLOPIDOGREL 75 MG TAB PO SCH (16:00)
[2024-05-29] MEDS: ASPIRIN 81 MG PO SCH (16:00)
[2024-05-29] MEDS: GABAPENTIN 300 MG CAP PO SCH (16:00)
[2024-05-29] MEDS: DULoxetine HCL 60 MG CAPSULE.DR PO SCH (16:01)
[2024-05-29] MEDS: MULTIVITAMINS, THERA 1 EACH TAB PO SCH (16:01)
[2024-05-29] MEDS: amLODIPine 5 MG TAB PO SCH (16:01)
[2024-05-29] MEDS: HYDROcodone/APAP 10-325MG 1 EACH TAB PO SCH (16:01)
[2024-05-29] MEDS: ATORVASTATIN 80 MG TAB PO SCH (16:01)
[2024-05-29] MEDS: IPRATROPIUM-ALBUTEROL 3 ML NEB INHALATION SCH (17:05)
--- NOTE | 2024-05-29 19:26 | P.HPIM ---
History of Present Illness H&P Date: 05/29/24 Baldev Joyce, is a 73-year-old male who presented to [facility] emergency room with a chief complaint of cough and worsening shortness of breath He was evaluated in the emergency room vital examination on presentation revealed a temperature of 98.9 pulse 77 respiration 20 blood pressure 156/73 pulse ox 92% on 4 L nasal cannula Laboratory data revealed a white blood count of 18.1 hemoglobin 11.9 platelet count 579 sodium 130 potassium 5.4 BUN 41 creatinine 0.69, influenza A and B RSV and COVID-19 PCR were all negative, troponin level 0.012 Testing in the emergency room revealed chest x-ray revealed patchy bilateral lung infiltrates, EKG revealed sinus rhythm with sinus arrhythmia Patient was admitted to medical floor for further evaluation and treatment Past medical history is significant for left above-knee amputation, severe peripheral arterial disease, advanced COPD, continued history of smoking Past Medical History Past Medical History: COPD, Hyperlipidemia, Hypertension, Myocardial Infarction ([place]), Osteoarthritis (OA), Vascular Disorder Additional Past Medical History / Comment(s): hx migraines, hx shingles, 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 knee wound + FOR MRSA. History of high left above-knee amputation done approximately 2009. Last Myocardial Infarction Date:: 2003 History of Any Multi-Drug Resistant Organisms: Acinetobacter (MDRO), MRSA Date of last positivie culture/infection: 04/02/16 MDRO Source:: LT KNEE WOUND Past Surgical History: Heart Catheterization With Stent, Orthopedic Surgery Additional Past Surgical History / Comment(s): STENTS TO LEFT GROIN, LEFT ABOVE THE KNEE AMPUTATION, unsuccessful revascularization left leg, shoulder surgery, surgical debridement of necrotic tissue left scrotal area, LT AKA 03/03/16. left testicle removed. heart stent x1 broken left hip Past Anesthesia/Blood Transfusion Reactions: No Reported Reaction Date of Last Stent Placement:: 2006 Past Psychological History: Depression Smoking Status: Former smoker Past Alcohol Use History: None Reported Past Drug Use History: Marijuana - Past Family History Sister(s) History Unknown: Yes Family Medical History: Cancer Additional Family Medical History / Comment(s): double mastectomy, still surviving Father History Unknown: Yes Family Medical History: No Reported History Mother History Unknown: Yes Family Medical History: No Reported History Additional Family Medical History / Comment(s): hypoglycemia Medications and Allergies Home Medications Medication Instructions Recorded Confirmed Type Aspirin 81 mg PO DAILY 01/14/14 05/29/24 History DULoxetine HCL [Cymbalta] 60 mg PO DAILY 01/14/14 05/29/24 History Pantoprazole Sodium [Protonix] 40 mg PO DAILY 06/13/18 05/29/24 History amLODIPine [Norvasc] 5 mg PO DAILY 06/13/18 05/29/24 History Atorvastatin [Lipitor] 80 mg PO DAILY #30 tab 07/20/20 05/29/24 Rx Metoprolol Succinate (ER) [Toprol 25 mg PO DAILY #30 tab.er.24h 07/20/20 05/29/24 Rx XL] Albuterol Sulfate [Proair Hfa] 2 puff INHALATION RT-QID PRN 08/29/21 05/29/24 History Tamsulosin [Flomax] 0.4 mg PO DAILY 08/29/21 05/29/24 History HYDROcodone/APAP 10-325MG [[place] 1 tab PO Q6HR 07/12/22 05/29/24 History 10-325] Primidone [Mysoline] 25 mg PO HS 07/12/22 05/29/24 History Escitalopram [Lexapro] 20 mg PO DAILY 03/23/23 05/29/24 History Fluticasone/Umeclidin/Vilanter 1 puff INHALATION RT-DAILY 03/23/23 05/29/24 History [Trelegy Ellipta 200-62.5-25] Gabapentin 600 mg PO TID 03/23/23 05/29/24 History Ipratropium-Albuterol Nebulize 3 ml INHALATION RT-QID 30 Days 04/21/23 05/29/24 Rx [Duoneb 0.5 mg-3 mg/3 ml Soln] #120 each Ferrous Sulfate [Feosol] 325 mg PO DAILY 30 Days #30 tab 06/05/23 05/29/24 Rx Nitroglycerin Sl Tabs [Nitrostat] 0.4 mg SUBLINGUAL Q5M PRN 30 Days 06/05/23 05/29/24 Rx #25 tab Baclofen 10 mg PO HS 05/29/24 05/29/24 History Clopidogrel [Plavix] 75 mg PO DAILY 05/29/24 05/29/24 History Lactulose [Constulose] 20 gm PO Q48H PRN 05/29/24 05/29/24 History Melatonin 10 mg PO HS 05/29/24 05/29/24 History Multivitamins, Thera [Multivitamin 1 tab PO DAILY 05/29/24 05/29/24 History (formulary)] Simethicone 180 mg PO DAILY 05/29/24 05/29/24 History Valsartan [Diovan] 320 mg PO DAILY 05/29/24 05/29/24 History traZODone HCL [Desyrel] 100 mg PO HS 05/29/24 05/29/24 History Allergies Allergy/AdvReac Type Severity Reaction Status Date / Time azithromycin [From Zithromax] Allergy Rash/Hives Verified 05/29/24 13:48 Physical Exam Vitals: Vital Signs Temp Pulse Resp BP Pulse Ox 05/29/24 12:16 84 20 162/74 91 L 05/29/24 08:36 98.9 F 77 20 156/73 92 L Intake and Output 05/28/24 05/29/24 05/29/24 22:59 06:59 14:59 Other: Weight 49.895 kg In general patient is alert and oriented x 3 in no distress HEENT head normocephalic and atraumatic Neck is supple no JVD no goiter no lymphadenopathy no carotid bruit Chest examination reveals a crackles in both lungs with mild wheezing Cardiac exam reveals regular heart sounds S1 and S2 no gallops no murmurs Abdomen is soft nontender no organomegaly with normal bowel sounds Extremity exam reveals no edema no cyanosis or clubbing Neurological examination reveals no gross focal deficits Results CBC & Chem 7: 05/29/24 09:12 05/29/24 09:12 Labs: Abnormal Lab Results - Last 24 Hours (Table) 05/29/24 05/29/24 Range/Units 09:12 09:12 WBC 18.1 H (3.8-10.6) k/uL Hgb 11.9 L (13.0-17.5) gm/dL MCHC 30.5 L (31.0-37.0) g/dL RDW 15.7 H (11.5-15.5) % Plt Count 579 H (150-450) k/uL Neutrophils # 16.6 H (1.3-7.7) k/uL Lymphocytes # 0.4 L (1.0-4.8) k/uL Sodium 130 L (137-145) mmol/L Potassium 5.4 H (3.5-5.1) mmol/L BUN 41 H (9-20) mg/dL Glucose 157 H (74-99) mg/dL Calcium 7.9 L (8.4-10.2) mg/dL Total Protein 6.0 L (6.3-8.2) g/dL Albumin 2.5 L (3.5-5.0) g/dL Assessment and Plan Plan: Acute on chronic hypoxic respiratory failure Pneumonia Acute exacerbation of chronic obstructive pulmonary disease Underlying history of severe peripheral vascular disease with history of left above-knee amputation Continued history of tobacco abuse Underlying history of depression Underlying history of hypertension Underlying history of hyperlipidemia Previous history of coronary artery disease with history of angioplasty and stent placement Underlying history of anemia maintained on iron supplements Underlying history of degenerative disc disease maintained on narcotic for pain management At this time patient was seen and examined Medications reviewed and reordered He was started on IV antibiotic Levaquin in the emergency room will continue For DVT prophylaxis subcu Lovenox Pulmonary and infectious disease consultation requested Will follow closely Prognosis is guarded due to severity of illness and multiple comorbidities
[2024-05-29] MEDS: SYMBICORT 160-4.5 MCG INHALER INHALATION SCH (20:45)
[2024-05-29] MEDS: BACLOFEN 10 MG TAB PO SCH (23:37)
[2024-05-29] MEDS: traZODone HCL 100 MG TAB PO SCH (23:37)
[2024-05-29] MEDS: MELATONIN 5 MG TABLET PO SCH (23:37)
[2024-05-30] MEDS: PRIMIDONE 25 MG TAB PO SCH (00:02)
[2024-05-30] MEDS ORDERED: RX INFO: IV CONTRAST WAS GIVEN 1 EACH MISC MISCELLANE PRN (03:36)
--- NOTE | 2024-05-30 05:55 | P.CNPUL ---
History of Present Illness Consult date: 05/30/24 Requesting physician: Fidencio Barrientos Reason for consult: pneumonia Chief complaint: Severe weakness History of present illness: Patient is a 73-year-old male with past medical history significant for hypertension, hyperlipidemia, CAD, previous DE with PCI/stent, peripheral vascular disease, prior left AKA, former tobacco smoker, COPD, and lung mass. Patient does follow in the pulmonary office with Dr. Flanagan. PET scan performed 08/12/2023 demonstrating a left upper lung medial mass measuring 3.1 x 2.4 cm with metabolic activity. Also, small focus of uptake within the dome of the liver. Patient was felt to be a poor candidate for lung biopsy. Directed to radiation oncology. Unfortunately, patient never followed up with this appointment. Patient was scheduled for repeat PET scan, however, he canceled. He states that he has been overwhelmed with personal issues. States his sister recently, he could not make it to the due to severe weakness. Presented to emergency department yesterday morning with a chief complaint of generalized severe weakness. He does have a left [id number] amputation. Was at home, could not transferred back from the bedside commode. Called EMS for transfer to the ED. Also, reporting acute on chronic shortness of breath and a increased cough with white sputum production. Denies any chest pain or hemoptysis. Denies any fevers or chills. Oral intake has been fair. Denies sick contacts. Chest x-ray showing bilateral lung infiltrates including left perihilar masslike consolidation, as well as, a right lower lobe infiltr ate. CBC: WBC count 18.1, hemoglobin 11.9, platelets 5 supertight. CMP: Sodium 130, potassium 4.4, chloride 99, serum bicarb 24, BUN 41, creatinine 0.69, glucose 157. Lactic 0.8. LFTs not elevated. Troponin less than 0.012. Urinalysis unremarkable for infection. Viral screen negative for influenza, RSV, COVID. Patient currently sitting up in bed, has pulled himself to the side of the bed. Appears frail and weak. No observable respiratory distress. Current vital signs: Temperature 98 F, heart rate 76 bpm, blood pressure 141/67 mmHg, nontachypneic, SpO2 reading 97% on 4 L/min nasal cannula Review of Systems Constitutional: Reports fatigue, Reports poor appetite, Reports weakness, Reports weight loss, Denies chills, Denies fever, Denies weight gain Ears, nose, mouth and throat: Denies headache, Denies nasal congestion, Denies nasal discharge, Denies post-nasal drip, Denies sinus pain, Denies sinus pressure, Denies sore throat Cardiovascular: Reports shortness of breath, Denies chest pain, Denies leg edema, Denies lightheadedness, Denies orthopnea, Denies palpitations, Denies paroxysmal nocturnal dyspnea Gastrointestinal: Reports as per HPI Genitourinary: Denies dysuria Musculoskeletal: Reports gait dysfunction Integumentary: Denies rash, Denies sores Neurological: Denies seizures, Denies syncope Psychiatric: Denies anxiety, Denies depression Past Medical History Past Medical History: COPD, Hyperlipidemia, Hypertension, Myocardial Infarction (DE), Osteoarthritis (OA), Vascular Disorder Additional Past Medical History / Comment(s): hx migraines, hx shingles, 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 knee wound + FOR MRSA. History of high left above-knee amputation done approximately 2009. Last Myocardial Infarction Date:: 2003 History of Any Multi-Drug Resistant Organisms: Acinetobacter (MDRO), MRSA Date of last positivie culture/infection: 04/02/16 MDRO Source:: LT KNEE WOUND Past Surgical History: Heart Catheterization With Stent, Orthopedic Surgery Additional Past Surgical History / Comment(s): STENTS TO LEFT GROIN, LEFT ABOVE THE KNEE AMPUTATION, unsuccessful revascularization left leg, shoulder surgery, surgical debridement of necrotic tissue left scrotal area, LT AKA 03/03/16. left testicle removed. heart stent x1 broken left hip Past Anesthesia/Blood Transfusion Reactions: No Reported Reaction Date of Last Stent Placement:: 2006 Past Psychological History: Anxiety, Depression Smoking Status: Former smoker Past Alcohol Use History: None Reported Additional Past Alcohol Use History / Comment(s): Patient is a ex-smoker one and a half packs of cigarettes per day for 52 years. He smokes marijuana on a daily basis and has done so for many decades. He denies any alcohol use. He lives at home with his and there is one 2 dogs in the home. 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 He denies any service. Patient use to vape daily but quit 4-6 months ago. Past Drug Use History: Marijuana Additional Drug Use History / Comment(s): medical marijuana card-uses daily - Past Family History Sister(s) History Unknown: Yes Family Medical History: Cancer Additional Family Medical History / Comment(s): double mastectomy, still surviving Father History Unknown: Yes Family Medical History: No Reported History Mother History Unknown: Yes Family Medical History: No Reported History Additional Family Medical History / Comment(s): hypoglycemia Medications and Allergies Home Medications Medication Instructions Recorded Confirmed Type Aspirin 81 mg PO DAILY 01/14/14 05/29/24 History DULoxetine HCL [Cymbalta] 60 mg PO DAILY 01/14/14 05/29/24 History Pantoprazole Sodium [Protonix] 40 mg PO DAILY 06/13/18 05/29/24 History amLODIPine [Norvasc] 5 mg PO DAILY 06/13/18 05/29/24 History Atorvastatin [Lipitor] 80 mg PO DAILY #30 tab 07/20/20 05/29/24 Rx Metoprolol Succinate (ER) [Toprol 25 mg PO DAILY #30 tab.er.24h 07/20/20 05/29/24 Rx XL] Albuterol Sulfate [Proair Hfa] 2 puff INHALATION RT-QID PRN 08/29/21 05/29/24 History Tamsulosin [Flomax] 0.4 mg PO DAILY 08/29/21 05/29/24 History HYDROcodone/APAP 10-325MG [[place] 1 tab PO Q6HR 07/12/22 05/29/24 History 10-325] Primidone [Mysoline] 25 mg PO HS 07/12/22 05/29/24 History Escitalopram [Lexapro] 20 mg PO DAILY 03/23/23 05/29/24 History Fluticasone/Umeclidin/Vilanter 1 puff INHALATION RT-DAILY 03/23/23 05/29/24 History [Trelegy Ellipta 200-62.5-25] Gabapentin 600 mg PO TID 03/23/23 05/29/24 History Ipratropium-Albuterol Nebulize 3 ml INHALATION RT-QID 30 Days 04/21/23 05/29/24 Rx [Duoneb 0.5 mg-3 mg/3 ml Soln] #120 each Ferrous Sulfate [Feosol] 325 mg PO DAILY 30 Days #30 tab 06/05/23 05/29/24 Rx Nitroglycerin Sl Tabs [Nitrostat] 0.4 mg SUBLINGUAL Q5M PRN 30 Days 06/05/23 05/29/24 Rx #25 tab Baclofen 10 mg PO HS 05/29/24 05/29/24 History Clopidogrel [Plavix] 75 mg PO DAILY 05/29/24 05/29/24 History Lactulose [Constulose] 20 gm PO Q48H PRN 05/29/24 05/29/24 History Melatonin 10 mg PO HS 05/29/24 05/29/24 History Multivitamins, Thera [Multivitamin 1 tab PO DAILY 05/29/24 05/29/24 History (formulary)] Simethicone 180 mg PO DAILY 05/29/24 05/29/24 History Valsartan [Diovan] 320 mg PO DAILY 05/29/24 05/29/24 History traZODone HCL [Desyrel] 100 mg PO HS 05/29/24 05/29/24 History Allergies Allergy/AdvReac Type Severity Reaction Status Date / Time azithromycin [From Zithromax] Allergy Rash/Hives Verified 05/29/24 13:48 Physical Exam Vitals: Vital Signs Temp Pulse Pulse Resp BP BP Pulse Ox 05/30/24 01:36 98.0 F 76 16 141/67 97 05/29/24 21:20 97.6 F 83 19 135/66 95 05/29/24 20:58 82 05/29/24 20:46 83 05/29/24 20:32 98.1 F 82 16 141/82 97 05/29/24 18:48 59 L 18 115/63 95 05/29/24 17:20 84 05/29/24 17:05 80 05/29/24 14:49 98.3 F 84 18 169/70 96 05/29/24 12:16 84 20 162/74 91 L 05/29/24 08:36 98.9 F 77 20 156/73 92 L Intake and Output 05/29/24 05/29/24 05/30/24 14:59 22:59 06:59 Other: Voiding Method Toilet Urinal # Voids 2 Weight 49.895 kg 49.895 kg GENERAL EXAM: Alert, 72-year-old white female, cachectic disheveled, overall comfortable in no apparent distress. HEAD: Normocephalic and atraumatic EYES: Normal reaction of pupils, equal size. NOSE: Clear with pink turbinates. Oropharynx/THROAT: Poor dentition. No erythema or exudates. NECK: No masses, no JVD. No palpable lymphadenopathy CHEST: No chest wall deformity. LUNGS: Equal air entry with diffuse expiratory wheezes and rhonchi. On 4 L/min nasal cannula. No conversational dyspnea or accessory muscle use while at rest.. CVS: S1 and S2 normal with no audible murmur, irregular rhythm. No other extra heart sounds ABDOMEN: No hepatosplenomegaly, active bowel sounds, no guarding or rigidity. SPINE: No scoliosis or deformity SKIN: No rashes CENTRAL NERVOUS SYSTEM: No focal deficits, tone is normal in all 4 extremities. EXTREMITIES: Prior left AKA. There is no peripheral edema, clubbing, or cyanosis. Peripheral pulses are intact. Results - Laboratory Findings CBC and BMP: 05/30/24 02:34 05/30/24 02:34 PT/INR, D-dimer PT 11.6 sec (10.0-12.5) 05/29/24 09:12 INR 1.1 (<1.2) 05/29/24 09:12 Abnormal lab findings: Abnormal Labs 05/29/24 05/29/24 09:12 09:12 WBC 18.1 H Hgb 11.9 L MCHC 30.5 L RDW 15.7 H Plt Count 579 H Neutrophils # 16.6 H Lymphocytes # 0.4 L Sodium 130 L Potassium 5.4 H BUN 41 H Glucose 157 H Calcium 7.9 L Total Protein 6.0 L Albumin 2.5 L - Diagnostic Findings Chest x-ray: image reviewed Assessment and Plan Assessment: Acute COPD exacerbation, Chest x-ray showing bilateral lung infiltrates including left perihilar masslike consolidation, as well as, a right lower lobe infiltrate. Findings concerning for disease progression with possible superimposed community-acquired pneumonia. Acute leukocytosis Left upper lung mass, suspicious for bronchogenic carcinoma, most recent PET scan showing left upper lung medial mass measuring 3.1 x 2.4 cm, patient felt to be a poor surgical candidate and was directed to radiation oncology. He never followed up with this appointment. Also, was scheduled for a repeat PET scan to be done outpatient; however, patient canceled this appointment Acute on chronic hypoxemic respiratory failure, currently on 4 L/min nasal cannula Very severe chronic obstructive pulmonary disease, with an FEV1 24% of predicted History of coronary artery disease, with previous PCI/stent History of hyperlipidemia Hypertension History of peripheral vascular disease History of prior left AKA Chronic anemia, hemoglobin stable History of GERD with esophagitis History of diverticulosis Former tobacco dependence Severe protein calorie malnutrition with a BMI of 13.7 kg/m Marijuana smoker Plan: Patient's medications, labs, chest x-ray reviewed Continue supplemental oxygen maintain oxygen saturation of 90% or greater Obtain CT of the chest with contrast Continue empiric antibiotics Blood cultures pending Obtain Urine Legionella antigen Continue bronchodilators, continue Symbicort inhailer, continue Spiriva Respimat, and add IV Solu-Medrol We will continue to follow, additional recommendations forthcoming I have personally seen and examined the patient, performed the documentation and the assessment and plan as written. Number of minutes spent on the visit:20 This is a joint evaluation that was done along with the nurse practitioner. Evaluation was done and 33 minutes. In summary, the patient is 73 with a known history of lung mass, PET avid and based on his advanced lung disease, no further diagnostic and therapeutic interventions were done. This abnormality was noted approximately a year ago and the patient has been followed up by pulmonology. The patient is currently presenting with worsening shortness of breath. There are significant abnormalities on his CAT scan of the chest that was done on 05/30/2024. There are new lower lung masses with enlarging hilar lymphadenopathy and progression of his neoplasm need to be considered. There is also background extensive emphysematous changes. A superimposed pneumonia cannot be completely ruled out as the patient has a consolidation in the posterior left midlung area which is essentially new. This could be also and area of malignancy. In any rate, the patient was started on broad-spectrum antibiotics. The patient is currently on IV Rocephin and Levaquin. He is on DuoNeb nebulizer treatments [id number]. He is on Symbicort and IV Solu-Me drol. He is on 40 mg IV Solu-Medrol every 12 hours. The white cell count is at 13.5. Normal coagulation profile. Normal renal function. LFTs are normal. Procalcitonin level is 0.13. Viral screen are negative and the patient is Legionella urine antigen is also negative. He remains on 4 L of oxygen by nasal cannula. Prognosis obviously poor based on above-mentioned findings. Will continue to follow. Time with Patient: Greater than 30
--- NOTE | 2024-05-30 08:00 | CT ---
EXAMINATION TYPE: CT chest w con DATE OF EXAM: 05/30/2024 7:40 AM COMPARISON: 06/03/2023 CLINICAL INDICATION: Male, 73 years old with history of lung mass, lung mass TECHNIQUE: Axial images were obtained at 5 mm thick sections. Reconstructed images are reviewed on [employer] computer in the coronal plane. Contrast used:100 mL of Isovue 300 with IV Contrast, (none if empty) Oral contrast used: (none if empty) CT DLP: 260.6 mGycm, Automated exposure control for dose reduction was used. FINDINGS: Portion of the thyroid visualized is normal. There is a density in the right apex measuring 0.8 cm this was present previously. There is a triangular density in the lateral right upper lung field. Series 201 image 17. This was pr esent previously. There is some increased density within the posterior right lung measuring 3.3 cm. Image 44. Pneumonia or mass should be considered. There is a spiculated density mass within the posterior right lung bas e measuring 6 x 7.1 cm. Image 51. There is consolidation in the posterior left midlung which is new. Correlate for pneumonia. Mass shou ld be considered. This area measures 7.5 x 5.3 cm. Extensive emphysematous changes are present. There is a 1.7 cm lymph node in the pretracheal space. A 2.0 cm lymph nodes in the pretracheal space. r there is a 1.4 cm subcarinal lymph node present. The ascending aorta diameter at the level of the main pulmonary artery is 3.4 cm. The main pulmonary artery diameter at the bifurcation is 3.4 cm. Co ronary artery calcification is present. Limited CT sections are obtained through the upper abdomen. Patchy distribution of contrast within th e spleen can be related to phase of contrast. Other etiologies are not excluded. There is a hiatal he rnia present. IMPRESSION: 1. New bilateral lower lung masses with enlarging hilar adenopathy. Neoplasm should be considered. [facility], , 05/30/2024 7:57 AM
--- NOTE | 2024-05-30 08:10 | XR ---
EXAMINATION TYPE: XR chest 1V portable DATE OF EXAM: 05/30/2024 6:50 AM COMPARISON: 05/29/2024 CLINICAL INDICATION: Male, 73 years old with history of pneumonia, TECHNIQUE: XR chest 1V portable view(s) obtained. FINDINGS: The heart size is normal. The pulmonary vasculature is normal. Right lower lobe infiltrate is present. Left perihilar fullness is present. Underlying mass may be pr esent. Follow-up is recommended. Small bilateral pleural effusions are present. IMPRESSION: 1. Left perihilar opacity and right lower lobe infiltrate. Correlate for pneumonia. 2. Left perihilar mass is not excluded in the differential. Follow-up is recommended. 3. Small bilateral pleural effusions. [facility], , 05/30/2024 8:07 AM
[2024-05-30 08:45] LABS: Basophils # (A) 0.07 X 10*3/uL (0.00-0.10); Basophils % (A) 0.5 %; Eosinophils # (A) 0.11 X 10*3/uL (0.04-0.35); Eosinophils % (A) 0.8 %; HCT 38.6 % (39.6-50.0); HGB 11.3 g/dL (13.0-17.0); Lymphocytes # (A) 0.51 X 10*3/uL (0.90-5.00); Lymphocytes % (A) 3.8 %; MCH 25.1 pg (27.0-32.0); MCHC 29.3 g/dL (32.0-37.0); MCV 85.8 FL (80.0-97.0); Monocytes # (A) 0.65 X 10*3/uL (0.20-1.00); Monocytes % (A) 4.8 %; NRBC Per 100 WBC 0 X 10*3/uL (0.00-0.01); Neutrophils # (A) 12.05 X 10*3/uL (1.80-7.70); Neutrophils % (A) 88.8 %; Platelet Count 532 X 10*3/uL (140-440); RDW 15.9 % (11.5-14.5); WBC 13.57 X 10*3/uL (4.50-10.00)
[2024-05-30] MEDS: PANTOPRAZOLE 40 MG TABLET PO SCH (09:19)
[2024-05-30] MEDS: METOPROLOL SUCCINATE (ER) 25 MG TAB.ER.24H PO SCH (09:19)
[2024-05-30] MEDS: FERROUS SULFATE 325 MG TAB PO SCH (09:19)
[2024-05-30] MEDS: TAMSULOSIN 0.4 MG CAP.ER.24H PO SCH (09:20)
[2024-05-30] MEDS: ENOXAPARIN 40 MG/0.4 ML SYRINGE SQ SCH (09:20)
[2024-05-30] MEDS: methylPREDNISolone SOD SUCCI 40 MG/ML 1 ML VIAL IV SCH (09:20)
[2024-05-30] MEDS: SIMETHICONE 80 MG CHEWABLE PO SCH (09:20)
[2024-05-30] MEDS: VALSARTAN 160 MG TAB PO SCH (09:21)
[2024-05-30] MEDS: LEVOFLOXACIN 750 MG TAB PO SCH (09:21)
[2024-05-30 09:26] LABS: ALT 13 U/L (10-49); AST 15 U/L (14-35); Albumin 2.4 g/dL (3.8-4.9); Albumin/Globulin Ratio 0.75 Ratio (1.60-3.17); Alkaline Phosphatase 79 U/L (41-126); Blood Urea Nitrogen 31.2 mg/dL (9.0-27.0); Carbon Dioxide 25.4 mmol/L (21.6-31.8); Chloride 104 mmol/L (96-109); Globulin 3.2 g/dL (1.6-3.3); Glucose 119 mg/dL (70-110); Potassium 4.9 mmol/L (3.5-5.5); Sodium 139 mmol/L (135-145); Total Bilirubin 0.2 mg/dL (0.3-1.2); Total Protein 5.6 g/dL (6.2-8.2)
[2024-05-30] MEDS: TIOTROPIUM 2.5 MCG INHALER INHALATION SCH (10:11)
[2024-05-30] MEDS ORDERED: ALBUTEROL NEBULIZED 2.5 MG/3 ML INHALATION PRN (10:18)
--- NOTE | 2024-05-30 10:18 | P.PN ---
Subjective Progress Note Date: 05/30/24 Baldev Joyce, is a 73-year-old male who presented to [facility] emergency room with a chief complaint of cough and worsening shortness of breath He was evaluated in the emergency room vital examination on presentation revealed a temperature of 98.9 pulse 77 respiration 20 blood pressure 156/73 pulse ox 92% on 4 L nasal cannula Laboratory data revealed a white blood count of 18.1 hemoglobin 11.9 platelet count 579 sodium 130 potassium 5.4 BUN 41 creatinine 0.69, influenza A and B RSV and COVID-19 PCR were all negative, troponin level 0.012 Testing in the emergency room revealed chest x-ray revealed patchy bilateral lung infiltrates, EKG revealed sinus rhythm with sinus arrhythmia Patient was admitted to medical floor for further evaluation and treatment Past medical history is significant for left above-knee amputation, severe peripheral arterial disease, advanced COPD, continued history of smoking On 05/30/2024 patient is alert and oriented x 3. Patient reports some impro vement with shortness of breath. Patient remains on IV antibiotics pulmonary and infectious disease services are following. Current vital signs temp 97.5, heart rate 98, respiratory rate 155/73 with a pulse ox of 93% on 4 L Objective - Vital Signs Vital signs: Vital Signs Temp 97.5 F L 05/30/24 08:09 Pulse 90 05/30/24 10:14 Resp 18 05/30/24 10:14 BP 155/73 05/30/24 08:09 Pulse Ox 93 L 05/30/24 08:09 FiO2 Intake & Output 05/29/24 05/30/24 05/30/24 18:59 06:59 18:59 Weight 49.895 kg 49.895 kg Other: Voiding Method Toilet Urinal # Voids 2 - Exam Baldev Joyce, is a 73-year-old male who presented to [facility] emergency room with a chief complaint of cough and worsening shortness of breath He was evaluated in the emergency room vital examination on presentation revealed a temperature of 98.9 pulse 77 respiration 20 blood pressure 156/73 pulse ox 92% on 4 L nasal cannula Laboratory data revealed a white blood count of 18.1 hemoglobin 11.9 platelet count 579 sodium 130 potassium 5.4 BUN 41 creatinine 0.69, influenza A and B RSV and COVID-19 PCR were all negative, troponin level 0.012 Testing in the emergency room revealed chest x-ray revealed patchy bilateral lung infiltrates, EKG revealed sinus rhythm with sinus arrhythmia Patient was admitted to medical floor for further evaluation and treatment Past medical history is significant for left above-knee amputation, severe peripheral arterial disease, advanced COPD, continued history of smoking - Labs CBC & Chem 7: 05/30/24 02:34 05/30/24 02:34 Labs: Abnormal Lab Results - Last 24 Hours (Table) 05/30/24 05/30/24 Range/Units 02:34 02:34 WBC 13.57 H (4.50-10.00) X 10*3/uL Hgb 11.3 L (13.0-17.0) g/dL Hct 38.6 L (39.6-50.0) % MCH 25.1 L (27.0-32.0) pg MCHC 29.3 L (32.0-37.0) g/dL RDW 15.9 H (11.5-14.5) % Plt Count 532 H (140-440) X 10*3/uL Immature Gran # 0.18 H (0.00-0.04) X 10*3/uL Neutrophils # 12.05 H (1.80-7.70) X 10*3/uL Lymphocytes # 0.51 L (0.90-5.00) X 10*3/uL BUN 31.2 H (9.0-27.0) mg/dL BUN/Creatinine Ratio 39.00 H (12.00-20.00) Ratio Glucose 119 H (70-110) mg/dL Calcium 8.0 L (8.7-10.3) mg/dL Total Bilirubin 0.2 L (0.3-1.2) mg/dL Total Protein 5.6 L (6.2-8.2) g/dL Albumin 2.4 L (3.8-4.9) g/dL Albumin/Globulin Ratio 0.75 L (1.60-3.17) Ratio Assessment and Plan Plan: Acute on chronic hypoxic respiratory failure Pneumonia Acute exacerbation of chronic obstructive pulmonary disease Underlying history of severe peripheral vascular disease with history of left above-knee amputation Continued history of tobacco abuse Underlying history of depression Underlying history of hypertension Underlying history of hyperlipidemia Previous history of coronary artery disease with history of angioplasty and stent placement Underlying history of anemia maintained on iron supplements Underlying history of degenerative disc disease maintained on narcotic for pain management At this time patient was seen and examined Medications reviewed and reordered He was started on IV antibiotic Levaquin in the emergency room will continue For DVT prophylaxis subcu Lovenox Pulmonary and infectious disease consultation requested Will follow closely Prognosis is guarded due to severity of illness and multiple comorbidities
[2024-05-30 10:43] VITALS: BMI 13.7
--- NOTE | 2024-05-31 08:23 | P.CONS ---
History of Present Illness - Reason for Consult Consult date: 05/30/24 Pneumonia Requesting physician: Fidencio Barrientos - Chief Complaint Weakness shortness of breath and cough x days - History of Present Illness Patient is a 73-year-old male with a past medical history significant for COPD hypertension hyperlipidemia [place] osteoarthritis presenting to the hospital for evaluation of weakness and unable to get up and around patient also complaining of increased shortness of breath he did have a cough and is bringing up some purulent sputum production hemoptysis patient denies having any nausea no vomiting no abdominal pain or any diarrhea on presentation to the hospital patient was afebrile no fever have been recorded subsequently patient was not tachycardic or hypotensive he was hypoxic currently on 4 L nasal cannula oxygen did have elevated white count of 18.1 with a left shift creatinine 0.69 potassium was slightly elevated repeat is normal liver enzymes are normal urine has been negative influenza RSV COVID testing negative patient did have blood cultures done which are currently pending did have a chest x-ray patchy renee ateral lung infiltrate correlate for pneumonia also have a CT of the chest new bilateral lower lung masses with enlarging hilar adenopathy neoplasm should be considered patient received a dose of Rocephin and Zithromax in the ER has been admitted to hospital infectious disease was consulted for further management of antibiotic therapy concerning for pneumonia Review of Systems Positive point and negatives has been mentioned in the HPI, complete review of systems was performed and all other systems are negative Past Medical History Past Medical History: COPD, Hyperlipidemia, Hypertension, Myocardial Infarction ([place]), Osteoarthritis (OA), Vascular Disorder Additional Past Medical History / Comment(s): hx migraines, hx shingles, 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 knee wound + FOR MRSA. History of high left above-knee amputation done approximately 2009. Last Myocardial Infarction Date:: 2003 History of Any Multi-Drug Resistant Organisms: Acinetobacter (MDRO), MRSA Year Discovered:: 04/02/16 MDRO Source:: LT KNEE WOUND Past Surgical History: Heart Catheterization With Stent, Orthopedic Surgery Additional Past Surgical History / Comment(s): STENTS TO LEFT GROIN, LEFT ABOVE THE KNEE AMPUTATION, unsuccessful revascularization left leg, shoulder surgery, surgical debridement of necrotic tissue left scrotal area, LT AKA 03/03/16. left testicle removed. heart stent x1 broken left hip Past Anesthesia/Blood Transfusion Reactions: No Reported Reaction Date of Last Stent Placement:: 2006 Past Psychological History: Anxiety, Depression Smoking Status: Former smoker Past Alcohol Use History: None Reported Additional Past Alcohol Use History / Comment(s): Patient is a ex-smoker one and a half packs of cigarettes per day for 52 years. He smokes marijuana on a daily basis and has done so for many decades. He denies any alcohol use. He lives at home with his and there is one 2 dogs in the home. 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 He denies any service. Patient use to vape daily but quit 4-6 months ago. Past Drug Use History: Marijuana Additional Drug Use History / Comment(s): medical marijuana card-uses daily - Past Family History Sister(s) History Unknown: Yes Family Medical History: Cancer Additional Family Medical History / Comment(s): double mastectomy, still surviving Father History Unknown: Yes Family Medical History: No Reported History Mother History Unknown: Yes Family Medical History: No Reported History Additional Family Medical History / Comment(s): hypoglycemia Medications and Allergies Home Medications Medication Instructions Recorded Confirmed Type Aspirin 81 mg PO DAILY 01/14/14 05/29/24 History DULoxetine HCL [Cymbalta] 60 mg PO DAILY 01/14/14 05/29/24 History Pantoprazole Sodium [Protonix] 40 mg PO DAILY 06/13/18 05/29/24 History amLODIPine [Norvasc] 5 mg PO DAILY 06/13/18 05/29/24 History Atorvastatin [Lipitor] 80 mg PO DAILY #30 tab 07/20/20 05/29/24 Rx Metoprolol Succinate (ER) [Toprol 25 mg PO DAILY #30 tab.er.24h 07/20/20 05/29/24 Rx XL] Albuterol Sulfate [Proair Hfa] 2 puff INHALATION RT-QID PRN 08/29/21 05/29/24 History Tamsulosin [Flomax] 0.4 mg PO DAILY 08/29/21 05/29/24 History HYDROcodone/APAP 10-325MG [[place] 1 tab PO Q6HR 07/12/22 05/29/24 History 10-325] Primidone [Mysoline] 25 mg PO HS 07/12/22 05/29/24 History Escitalopram [Lexapro] 20 mg PO DAILY 03/23/23 05/29/24 History Fluticasone/Umeclidin/Vilanter 1 puff INHALATION RT-DAILY 03/23/23 05/29/24 History [Trelegy Ellipta 200-62.5-25] Gabapentin 600 mg PO TID 03/23/23 05/29/24 History Ipratropium-Albuterol Nebulize 3 ml INHALATION RT-QID 30 Days 04/21/23 05/29/24 Rx [Duoneb 0.5 mg-3 mg/3 ml Soln] #120 each Ferrous Sulfate [Feosol] 325 mg PO DAILY 30 Days #30 tab 06/05/23 05/29/24 Rx Nitroglycerin Sl Tabs [Nitrostat] 0.4 mg SUBLINGUAL Q5M PRN 30 Days 06/05/23 05/29/24 Rx #25 tab Baclofen 10 mg PO HS 05/29/24 05/29/24 History Clopidogrel [Plavix] 75 mg PO DAILY 05/29/24 05/29/24 History Lactulose [Constulose] 20 gm PO Q48H PRN 05/29/24 05/29/24 History Melatonin 10 mg PO HS 05/29/24 05/29/24 History Multivitamins, Thera [Multivitamin 1 tab PO DAILY 05/29/24 05/29/24 History (formulary)] Simethicone 180 mg PO DAILY 05/29/24 05/29/24 History Valsartan [Diovan] 320 mg PO DAILY 05/29/24 05/29/24 History traZODone HCL [Desyrel] 100 mg PO HS 05/29/24 05/29/24 History Allergies Allergy/AdvReac Type Severity Reaction Status Date / Time azithromycin [From Zithromax] Allergy Rash/Hives Verified 05/29/24 13:48 Physical Exam Vitals: Vital Signs Temp Pulse Pulse Resp BP BP Pulse Ox 05/30/24 10:25 92 18 05/30/24 10:14 90 18 05/30/24 08:09 97.5 F L 98 16 155/73 93 L 05/30/24 01:36 98.0 F 76 16 141/67 97 05/29/24 21:20 97.6 F 83 19 135/66 95 05/29/24 20:58 82 05/29/24 20:46 83 05/29/24 20:32 98.1 F 82 16 141/82 97 05/29/24 18:48 59 L 18 115/63 95 05/29/24 17:20 84 05/29/24 17:05 80 05/29/24 14:49 98.3 F 84 18 169/70 96 05/29/24 12:16 84 20 162/74 91 L Intake and Output 05/29/24 05/30/24 05/30/24 22:59 06:59 14:59 Other: Voiding Method Toilet Urinal # Voids 2 Weight 49.895 kg 49.895 kg GENERAL DESCRIPTION: Elderly male lying in bed, no distress. No tachypnea or accessory muscle of respiration use. HEENT: Shows Pallor , no scleral icterus. Oral mucous membrane is dry. NECK: Trachea central, no thyromegaly. LUNGS: Unlabored breathing. Coarse breath sounds bilaterally HEART: S1, S2, regular rate and rhythm. No loud murmur ABDOMEN: Soft, no tenderness , guarding or rigidity, no organomegaly EXTREMITIES: No edema of right leg, did have a left AKA SKIN: No rash, no masses palpable. NEUROLOGICAL: The patient is awake, alert, oriented x3, mood and affect normal. Results CBC & Chem 7: 06/01/24 03:20 06/01/24 03:20 Labs: Abnormal Lab Results - Last 24 Hours (Table) 05/30/24 05/30/24 Range/Units 02:34 02:34 WBC 13.57 H (4.50-10.00) X 10*3/uL Hgb 11.3 L (13.0-17.0) g/dL Hct 38.6 L (39.6-50.0) % MCH 25.1 L (27.0-32.0) pg MCHC 29.3 L (32.0-37.0) g/dL RDW 15.9 H (11.5-14.5) % Plt Count 532 H (140-440) X 10*3/uL Immature Gran # 0.18 H (0.00-0.04) X 10*3/uL Neutrophils # 12.05 H (1.80-7.70) X 10*3/uL Lymphocytes # 0.51 L (0.90-5.00) X 10*3/uL BUN 31.2 H (9.0-27.0) mg/dL BUN/Creatinine Ratio 39.00 H (12.00-20.00) Ratio Glucose 119 H (70-110) mg/dL Calcium 8.0 L (8.7-10.3) mg/dL Total Bilirubin 0.2 L (0.3-1.2) mg/dL Total Protein 5.6 L (6.2-8.2) g/dL Albumin 2.4 L (3.8-4.9) g/dL Albumin/Globulin Ratio 0.75 L (1.60-3.17) Ratio Assessment and Plan (1) Pneumonia Current Visit: Yes Status: Acute Code(s): J18.9 - PNEUMONIA, UNSPECIFIED ORGANISM SNOMED Code(s): 663253883 (2) Leukocytosis Current Visit: No Status: Acute Code(s): D72.829 - ELEVATED WHITE BLOOD CELL COUNT, UNSPECIFIED SNOMED Code(s): 994764693 Plan: 1patient presented to hospital with weakness which is likely multifactorial in this patient who did have significant history of COPD now with the elevated white count cough sputum production concerning for pneumonia although CT was also concerning for possible masses and malignancy the need to be further worked up by pulmonary. 2we will try to obtain a sputum for Gram stain and culture. 3we will start the patient on Rocephin 2 g daily while waiting for the workup to be completed. We will follow on clinical condition and cultures to further adjust medication if needed Thank you for this consultation we will follow the patient along with you Dictation was produced using [employer] e[employer] dictation software. please excuse any grammatical, word or spelling errors. Time with Patient: Greater than 30
[2024-05-31 08:43] LABS: Basophils # (A) 0.03 X 10*3/uL (0.00-0.10); Basophils % (A) 0.3 %; Eosinophils # (A) 0 X 10*3/uL (0.04-0.35); Eosinophils % (A) 0 %; HCT 35.4 % (39.6-50.0); HGB 10.6 g/dL (13.0-17.0); Lymphocytes # (A) 0.29 X 10*3/uL (0.90-5.00); Lymphocytes % (A) 2.7 %; MCH 25.4 pg (27.0-32.0); MCHC 29.9 g/dL (32.0-37.0); MCV 84.9 FL (80.0-97.0); Mean Platelet Volume 10.1 FL (9.5-12.2); Monocytes # (A) 0.11 X 10*3/uL (0.20-1.00); NRBC Per 100 WBC 0 X 10*3/uL (0.00-0.01); Neutrophils # (A) 10.28 X 10*3/uL (1.80-7.70); Neutrophils % (A) 94.3 %; Platelet Count 489 X 10*3/uL (140-440); RBC 4.17 X 10*6/uL (4.40-5.60); RDW 15.8 % (11.5-14.5)
[2024-05-31 10:29] LABS: BUN/Creat Ratio 40.64 Ratio (12.00-20.00); Blood Urea Nitrogen 44.7 mg/dL (9.0-27.0); Carbon Dioxide 24.7 mmol/L (21.6-31.8); Chloride 98 mmol/L (96-109); Glucose 339 mg/dL (70-110); Potassium 6.2 mmol/L (3.5-5.5); Sodium 130 mmol/L (135-145)
[2024-05-31 10:30] LABS: ALT 12 U/L (10-49); AST 13 U/L (14-35); Albumin 2.5 g/dL (3.8-4.9); Albumin/Globulin Ratio 0.83 Ratio (1.60-3.17); Alkaline Phosphatase 76 U/L (41-126); Calcium 8.2 mg/dL (8.7-10.3); Total Bilirubin <0.2 mg/dL (0.3-1.2); Total Protein 5.5 g/dL (6.2-8.2)
--- NOTE | 2024-05-31 17:45 | P.PN ---
Subjective Progress Note Date: 05/31/24 Baldev Joyce, is a 73-year-old male who presented to [facility] emergency room with a chief complaint of cough and worsening shortness of breath He was evaluated in the emergency room vital examination on presentation revealed a temperature of 98.9 pulse 77 respiration 20 blood pressure 156/73 pulse ox 92% on 4 L nasal cannula Laboratory data revealed a white blood count of 18.1 hemoglobin 11.9 platelet count 579 sodium 130 potassium 5.4 BUN 41 creatinine 0.69, influenza A and B RSV and COVID-19 PCR were all negative, troponin level 0.012 Testing in the emergency room revealed chest x-ray revealed patchy bilateral lung infiltrates, EKG revealed sinus rhythm with sinus arrhythmia Patient was admitted to medical floor for further evaluation and treatment Past medical history is significant for left above-knee amputation, severe peripheral arterial disease, advanced COPD, continued history of smoking On 05/30/2024 patient is alert and oriented x 3. Patient reports some impro vement with shortness of breath. Patient remains on IV antibiotics pulmonary and infectious disease services are following. Current vital signs temp 97.5, heart rate 98, respiratory rate 155/73 with a pulse ox of 93% on 4 L On 05/31/2024 patient was seen and examined on the medical floor he is alert and oriented x 3 in no apparent distress he is still complaining of cough and shortness of breath otherwise he denies any complaints there is no fever or chills no headache or dizziness no chest pain no nausea or vomiting no abdominal pain no diarrhea and no urinary symptoms Objective - Vital Signs Vital signs: Vital Signs Temp 98.1 F 05/31/24 13:27 Pulse 72 05/31/24 16:59 Resp 18 05/31/24 16:59 BP 117/58 05/31/24 13:27 Pulse Ox 95 05/31/24 13:27 FiO2 Intake & Output 05/30/24 05/31/24 05/31/24 18:59 06:59 18:59 Weight 49.895 kg Other: Voiding Method Toilet Urinal # Voids 1 7 - Exam Baldev Joyce, is a 73-year-old male who presented to [facility] emergency room with a chief complaint of cough and worsening shortness of breath He was evaluated in the emergency room vital examination on presentation revea led a temperature of 98.9 pulse 77 respiration 20 blood pressure 156/73 pulse ox 92% on 4 L nasal cannula Laboratory data revealed a white blood count of 18.1 hemoglobin 11.9 platelet count 579 sodium 130 potassium 5.4 BUN 41 creatinine 0.69, influenza A and B RSV and COVID-19 PCR were all negative, troponin level 0.012 Testing in the emergency room revealed chest x-ray revealed patchy bilateral l boo infiltrates, EKG revealed sinus rhythm with sinus arrhythmia Patient was admitted to medical floor for further evaluation and treatment Past medical history is significant for left above-knee amputation, severe peripheral arterial disease, advanced COPD, continued history of smoking - Labs CBC & Chem 7: 05/31/24 04:04 05/31/24 12:04 Labs: Abnormal Lab Results - Last 24 Hours (Table) 05/31/24 05/31/24 05/31/24 Range/Units 04:04 04:04 12:04 WBC 10.90 H (4.50-10.00) X 10*3/uL RBC 4.17 L (4.40-5.60) X 10*6/uL Hgb 10.6 L (13.0-17.0) g/dL Hct 35.4 L (39.6-50.0) % MCH 25.4 L (27.0-32.0) pg MCHC 29.9 L (32.0-37.0) g/dL RDW 15.8 H (11.5-14.5) % Plt Count 489 H (140-440) X 10*3/uL Immature Gran # 0.19 H (0.00-0.04) X 10*3/uL Neutrophils # 10.28 H (1.80-7.70) X 10*3/uL Lymphocytes # 0.29 L (0.90-5.00) X 10*3/uL Monocytes # 0.11 L (0.20-1.00) X 10*3/uL Eosinophils # 0 L (0.04-0.35) X 10*3/uL Sodium 130 L (135-145) mmol/L Potassium 6.2 A* 5.9 H (3.5-5.5) mmol/L BUN 44.7 H (9.0-27.0) mg/dL BUN/Creatinine Ratio 40.64 H (12.00-20.00) Ratio Glucose 339 H (70-110) mg/dL Calcium 8.2 L (8.7-10.3) mg/dL Total Bilirubin <0.2 L (0.3-1.2) mg/dL AST 13 L (14-35) U/L Total Protein 5.5 L (6.2-8.2) g/dL Albumin 2.5 L (3.8-4.9) g/dL Albumin/Globulin Ratio 0.83 L (1.60-3.17) Ratio Microbiology - Last 24 Hours (Table) 05/29/24 09:30 Blood Culture - Preliminary Blood 05/29/24 10:00 Blood Culture - Preliminary Blood 05/30/24 10:26 Gram Stain - Preliminary Sputum Sputum Culture - Preliminary Assessment and Plan Plan: Acute on chronic hypoxic respiratory failure Pneumonia Acute exacerbation of chronic obstructive pulmonary disease Underlying history of severe peripheral vascular disease with history of left above-knee amputation Continued history of tobacco abuse Underlying history of depression Underlying history of hypertension Underlying history of hyperlipidemia Previous history of coronary artery disease with history of angioplasty and stent placement Underlying history of anemia maintained on iron supplements Underlying history of degenerative disc disease maintained on narcotic for pain management At this time patient was seen and examined Medications reviewed and reordered He was started on IV antibiotic Levaquin in the emergency room will continue For DVT prophylaxis subcu Lovenox Pulmonary and infectious disease consultation requested Will follow closely Prognosis is guarded due to severity of illness and multiple comorbidities
[2024-05-31] MEDS: SODIUM ZIRCONIUM CYCLOSILICATE 10 GM PACKET PO ONE (18:05)
--- NOTE | 2024-05-31 19:30 | P.PN ---
Subjective Progress Note Date: 05/31/24 Patient is a 73-year-old male with past medical history significant for hypertension, hyperlipidemia, CAD, previous NC with PCI/stent, peripheral vascular disease, prior left AKA, former tobacco smoker, COPD, and lung mass. Patient does follow in the pulmonary office with Dr. Flanagan. PET scan performed 08/12/2023 demonstrating a left upper lung medial mass measuring 3.1 x 2.4 cm with metabolic activity. Also, small focus of uptake within the dome of the liver. Patient was felt to be a poor candidate for lung biopsy. Directed to radiation oncology. Unfortunately, patient never followed up with this appointment. Patient was scheduled for repeat PET scan, however, he canceled. He states that he has been overwhelmed with personal issues. States his sister recently, he could not make it to the due to severe weakness. Presented to emergency department yesterday morning with a chief complaint of generalized severe weakness. He does have a left [id number] amputation. Was at home, could not transferred back from the bedside commode. Called EMS for transfer to the ED. Also, reporting acute on chronic shortness of breath and a increased cough with white sputum production. Denies any chest pain or hemoptysis. Denies any fevers or chills. Oral intake has been fair. Denies sick contacts. Chest x-ray showing bilateral lung infiltrates including left perihilar masslike consolidation, as well as, a right lower lobe infiltrate. CBC: WBC count 18.1, hemoglobin 11.9, platelets 5 supertight. CMP: Sodium 130, potassium 4.4, chloride 99, serum bicarb 24, BUN 41, creatinine 0.69, glucose 157. Lactic 0.8. LFTs not elevated. Troponin less than 0.012. Urinalysis unremarkable for infection. Viral screen negative for influenza, RSV, COVID. Patient currently sitting up in bed, has pulled himself to the side of the bed. Appears frail and weak. No observable respiratory distress. Current vital signs: Temperature 98 F, heart rate 76 bpm, blood pressure 141/67 mmHg, nontachypneic, SpO2 reading 97% on 4 L/min nasal cannula On 05/31/2024, the patient is being seen for a follow-up. On today's evaluation, the patient is still having some cough and congestion and some shortness of breath. No other new complaints otherwise for now. As stated earlier, the patient has advanced COPD and tumor progression as evident on the most recent CAT scan of the chest. Suspected to have a superimposed pneumonia. Based on that, the patient was given Rocephin and Levaquin and the patient is also on DuoNeb nebulized treatments [id number] and IV Solu-Medrol. The white cell count today is at 10.9 with a hemoglobin 10.6 and a platelet count of 489. BUN is 44 with a creatinine of 1.1. Potassium is at 5.9. Procalcitonin level is at 0.13. UA was negative. Calcium level is at 8.2. Viral screen was negative. Legionella urine antigen was negative. Sputum culture and blood cultures still pending for now. Objective - Vital Signs Vital signs: Vital Signs Temp 98.1 F 05/31/24 13:27 Pulse 77 05/31/24 17:11 Resp 18 05/31/24 17:11 BP 117/58 05/31/24 13:27 Pulse Ox 95 05/31/24 13:27 FiO2 Intake & Output 05/31/24 05/31/24 06/01/24 06:59 18:59 06:59 Output Total 6 Balance -6 Output: Urine/Stool Mix 6 Other: Voiding Method Toilet Urinal # Voids 7 12 - Exam GENERAL EXAM: Alert, 72-year-old white female, cachectic disheveled, overall comfortable in no apparent distress. HEAD: Normocephalic and atraumatic EYES: Normal reaction of pupils, equal size. NOSE: Clear with pink turbinates. Oropharynx/THROAT: Poor dentition. No erythema or exudates. NECK: No masses, no JVD. No palpable lymphadenopathy CHEST: No chest wall deformity. LUNGS: Equal air entry with diffuse expiratory wheezes and rhonchi. On 4 L/min nasal cannula. No conversational dyspnea or accessory muscle use while at rest.. CVS: S1 and S2 normal with no audible murmur, irregular rhythm. No other extra heart sounds ABDOMEN: No hepatosplenomegaly, active bowel sounds, no guarding or rigidity. SPINE: No scoliosis or deformity SKIN: No rashes CENTRAL NERVOUS SYSTEM: No focal deficits, tone is normal in all 4 extremities. EXTREMITIES: Prior left AKA. There is no peripheral edema, clubbing, or c yanosis. Peripheral pulses are intact. - Labs CBC & Chem 7: 05/31/24 04:04 05/31/24 12:04 Labs: Abnormal Lab Results - Last 24 Hours (Table) 05/31/24 05/31/24 05/31/24 Range/Units 04:04 04:04 12:04 WBC 10.90 H (4.50-10.00) X 10*3/uL RBC 4.17 L (4.40-5.60) X 10*6/uL Hgb 10.6 L (13.0-17.0) g/dL Hct 35.4 L (39.6-50.0) % MCH 25.4 L (27.0-32.0) pg MCHC 29.9 L (32.0-37.0) g/dL RDW 15.8 H (11.5-14.5) % Plt Count 489 H (140-440) X 10*3/uL Immature Gran # 0.19 H (0.00-0.04) X 10*3/uL Neutrophils # 10.28 H (1.80-7.70) X 10*3/uL Lymphocytes # 0.29 L (0.90-5.00) X 10*3/uL Monocytes # 0.11 L (0.20-1.00) X 10*3/uL Eosinophils # 0 L (0.04-0.35) X 10*3/uL Sodium 130 L (135-145) mmol/L Potassium 6.2 A* 5.9 H (3.5-5.5) mmol/L BUN 44.7 H (9.0-27.0) mg/dL BUN/Creatinine Ratio 40.64 H (12.00-20.00) Ratio Glucose 339 H (70-110) mg/dL Calcium 8.2 L (8.7-10.3) mg/dL Total Bilirubin <0.2 L (0.3-1.2) mg/dL AST 13 L (14-35) U/L Total Protein 5.5 L (6.2-8.2) g/dL Albumin 2.5 L (3.8-4.9) g/dL Albumin/Globulin Ratio 0.83 L (1.60-3.17) Ratio Microbiology - Last 24 Hours (Table) 05/29/24 09:30 Blood Culture - Preliminary Blood 05/29/24 10:00 Blood Culture - Preliminary Blood 05/30/24 10:26 Gram Stain - Preliminary Sputum Sputum Culture - Preliminary Assessment and Plan Assessment: Acute COPD exacerbation, Chest x-ray showing bilateral lung infiltrates including left perihilar masslike consolidation, as well as, a right lower lobe infiltrate. Findings concerning for disease progression with possible superimposed community-acquired pneumonia. CAT scan of the chest that was done on 05/30/2024. There are new lower lung masses with enlarging hilar lymphadenopathy and progression of his neoplasm need to be considered. There is also background extensive emphysematous changes. A superimposed pneumonia cannot be completely ruled out as the patient has a consolidation in the posterior left midlung area which is essentially new. This could be also and area of malignancy. In any rate, the patient was started on broad-spectrum antibiotics. The patient is currently on IV Rocephin and Levaquin. Acute leukocytosis Left upper lung mass, suspicious for bronchogenic carcinoma, most recent PET scan showing left upper lung medial mass measuring 3.1 x 2.4 cm, patient felt to be a poor surgical candidate and was directed to radiation oncology. He never followed up with this appointment. Also, was scheduled for a repeat PET scan to be done outpatient; however, patient canceled this appointment Acute on chronic hypoxemic respiratory failure, currently on 4 L/min nasal cannula Very severe chronic obstructive pulmonary disease, with an FEV1 24% of predicted History of coronary artery disease, with previous PCI/stent History of hyperlipidemia Hypertension History of peripheral vascular disease History of prior left AKA Chronic anemia, hemoglobin stable History of GERD with esophagitis History of diverticulosis Former tobacco dependence Severe protein calorie malnutrition with a BMI of 13.7 kg/m Marijuana smoker Plan: Titrate oxygen flow to maintain saturation above 90% Continue empiric antibiotics, currently on a combination of Levaquin and Rocephin Sputum and blood cultures are still pending Obtain Urine Legionella antigen was negative Continue bronchodilators, continue Symbicort inhailer, continue Spiriva Respimat, Continue IV Solu-Medrol Prognosis obviously poor based on above-mentioned findings. Will continue to follow.
[2024-06-01 08:51] LABS: Basophils # (A) 0.02 X 10*3/uL (0.00-0.10); Basophils % (A) 0.1 %; Eosinophils # (A) 0 X 10*3/uL (0.04-0.35); Eosinophils % (A) 0 %; HCT 36.1 % (39.6-50.0); HGB 10.8 g/dL (13.0-17.0); Lymphocytes # (A) 0.22 X 10*3/uL (0.90-5.00); Lymphocytes % (A) 1.6 %; MCH 25.2 pg (27.0-32.0); MCHC 29.9 g/dL (32.0-37.0); MCV 84.3 FL (80.0-97.0); Mean Platelet Volume 10.6 FL (9.5-12.2); Monocytes # (A) 0.17 X 10*3/uL (0.20-1.00); Monocytes % (A) 1.2 %; NRBC Per 100 WBC 0 X 10*3/uL (0.00-0.01); Neutrophils # (A) 13.12 X 10*3/uL (1.80-7.70); Neutrophils % (A) 95.9 %; Platelet Count 491 X 10*3/uL (140-440); RBC 4.28 X 10*6/uL (4.40-5.60); RDW 15.8 % (11.5-14.5)
--- NOTE | 2024-06-01 09:53 | P.PN ---
Subjective Progress Note Date: 06/01/24 Baldev Joyce, is a 73-year-old male who presented to [facility] emergency room with a chief complaint of cough and worsening shortness of breath He was evaluated in the emergency room vital examination on presentation revealed a temperature of 98.9 pulse 77 respiration 20 blood pressure 156/73 pulse ox 92% on 4 L nasal cannula Laboratory data revealed a white blood count of 18.1 hemoglobin 11.9 platelet count 579 sodium 130 potassium 5.4 BUN 41 creatinine 0.69, influenza A and B RSV and COVID-19 PCR were all negative, troponin level 0.012 Testing in the emergency room revealed chest x-ray revealed patchy bilateral lung infiltrates, EKG revealed sinus rhythm with sinus arrhythmia Patient was admitted to medical floor for further evaluation and treatment Past medical history is significant for left above-knee amputation, severe peripheral arterial disease, advanced COPD, continued history of smoking On 05/30/2024 patient is alert and oriented x 3. Patient reports some impro vement with shortness of breath. Patient remains on IV antibiotics pulmonary and infectious disease services are following. Current vital signs temp 97.5, heart rate 98, respiratory rate 155/73 with a pulse ox of 93% on 4 L On 05/31/2024 patient was seen and examined on the medical floor he is alert and oriented x 3 in no apparent distress he is still complaining of cough and shortness of breath otherwise he denies any complaints there is no fever or chills no headache or dizziness no chest pain no nausea or vomiting no abdominal pain no diarrhea and no urinary symptoms On 06/01/2024 patient is alert and oriented x 3. Patient is still complaining of some shortness of breath and cough. Patient remains on IV steroids. Pulmonary and infectious disease services are following. Current vital signs temp 97.5, heart 63, respiratory rate 19, blood pressure 144/58 with a pulse ox of 95% on 4 L Objective - Vital Signs Vital signs: Vital Signs Temp 97.5 F L 06/01/24 07:19 Pulse 63 06/01/24 07:19 Resp 19 06/01/24 07:19 BP 144/58 06/01/24 07:19 Pulse Ox 95 06/01/24 07:19 FiO2 Intake & Output 05/31/24 06/01/24 06/01/24 18:59 06:59 18:59 Output Total 6 Balance -6 Output: Urine/Stool Mix 6 Other: Voiding Method Toilet Urinal # Voids 12 8 # Bowel Movements 1 - Exam Baldev Joyce, is a 73-year-old male who presented to [facility] emergency room with a chief complaint of cough and worsening shortness of breath He was evaluated in the emergency room vital examination on presentation rev ealed a temperature of 98.9 pulse 77 respiration 20 blood pressure 156/73 pulse ox 92% on 4 L nasal cannula Laboratory data revealed a white blood count of 18.1 hemoglobin 11.9 platelet count 579 sodium 130 potassium 5.4 BUN 41 creatinine 0.69, influenza A and B RSV and COVID-19 PCR were all negative, troponin level 0.012 Testing in the emergency room revealed chest x-ray revealed patchy bilateral lung infiltrates, EKG revealed sinus rhythm with sinus arrhythmia Patient was admitted to medical floor for further evaluation and treatment Past medical history is significant for left above-knee amputation, severe peripheral arterial disease, advanced COPD, continued history of smoking - Labs CBC & Chem 7: 06/01/24 03:20 05/31/24 12:04 Labs: Abnormal Lab Results - Last 24 Hours (Table) 05/31/24 05/31/24 06/01/24 Range/Units 04:04 12:04 03:20 WBC 13.70 H (4.50-10.00) X 10*3/uL RBC 4.28 L (4.40-5.60) X 10*6/uL Hgb 10.8 L (13.0-17.0) g/dL Hct 36.1 L (39.6-50.0) % MCH 25.2 L (27.0-32.0) pg MCHC 29.9 L (32.0-37.0) g/dL RDW 15.8 H (11.5-14.5) % Plt Count 491 H (140-440) X 10*3/uL Immature Gran # 0.17 H (0.00-0.04) X 10*3/uL Neutrophils # 13.12 H (1.80-7.70) X 10*3/uL Lymphocytes # 0.22 L (0.90-5.00) X 10*3/uL Monocytes # 0.17 L (0.20-1.00) X 10*3/uL Eosinophils # 0 L (0.04-0.35) X 10*3/uL Sodium 130 L (135-145) mmol/L Potassium 6.2 A* 5.9 H (3.5-5.5) mmol/L BUN 44.7 H (9.0-27.0) mg/dL BUN/Creatinine Ratio 40.64 H (12.00-20.00) Ratio Glucose 339 H (70-110) mg/dL Calcium 8.2 L (8.7-10.3) mg/dL Total Bilirubin <0.2 L (0.3-1.2) mg/dL AST 13 L (14-35) U/L Total Protein 5.5 L (6.2-8.2) g/dL Albumin 2.5 L (3.8-4.9) g/dL Albumin/Globulin Ratio 0.83 L (1.60-3.17) Ratio Microbiology - Last 24 Hours (Table) 05/29/24 09:30 Blood Culture - Preliminary Blood 05/29/24 10:00 Blood Culture - Preliminary Blood 05/30/24 10:26 Gram Stain - Preliminary Sputum Sputum Culture - Preliminary Assessment and Plan Plan: Acute on chronic hypoxic respiratory failure Pneumonia Acute exacerbation of chronic obstructive pulmonary disease Underlying history of severe peripheral vascular disease with history of left above-knee amputation Continued history of tobacco abuse Underlying history of depression Underlying history of hypertension Underlying history of hyperlipidemia Previous history of coronary artery disease with history of angioplasty and stent placement Underlying history of anemia maintained on iron supplements Underlying history of degenerative disc disease maintained on narcotic for pain management At this time patient was seen and examined Medications reviewed and reordered He was started on IV antibiotic Levaquin in the emergency room will continue For DVT prophylaxis subcu Lovenox Pulmonary and infectious disease consultation requested Will follow closely Prognosis is guarded due to severity of illness and multiple comorbidities
[2024-06-01 10:48] LABS: BUN/Creat Ratio 50.55 Ratio (12.00-20.00); Blood Urea Nitrogen 55.6 mg/dL (9.0-27.0); Glucose 446 mg/dL (70-110); Potassium 6.9 mmol/L (3.5-5.5); Sodium 124 mmol/L (135-145)
[2024-06-01 10:49] LABS: ALT 15 U/L (10-49); AST 18 U/L (14-35); Albumin 2.6 g/dL (3.8-4.9); Albumin/Globulin Ratio 0.84 Ratio (1.60-3.17); Alkaline Phosphatase 77 U/L (41-126); Calcium 8.3 mg/dL (8.7-10.3); Chloride 91 mmol/L (96-109); Globulin 3.1 g/dL (1.6-3.3); Total Bilirubin <0.2 mg/dL (0.3-1.2); Total Protein 5.7 g/dL (6.2-8.2)
[2024-06-01] MEDS ORDERED: DEXTROSE 50% SYRINGE 50 ML IVP PRN ×2 (11:40)
[2024-06-01 11:50] LABS: Glucose,Whole Blood 504 mg/dL (70-110)
[2024-06-01 11:50] LABS: Glucose,Whole Blood 433 mg/dL (70-110)
[2024-06-01] MEDS: INSULIN ASPART (NovoLOG) 100 UNIT/ML VIAL SQ SCH (11:51)
[2024-06-01] MEDS: INSULIN LISPRO (HumaLOG) 100 UNIT/ML 10 mL VL SQ ONE (12:04)
[2024-06-01] MEDS: SODIUM BICARB 8.4% 50 ML SYR (1 MEQ/ML) IV STA (12:05)
[2024-06-01] MEDS: SODIUM ZIRCONIUM CYCLOSILICATE 10 GM PACKET PO SCH (12:11)
--- NOTE | 2024-06-01 12:16 | P.PN ---
Subjective Progress Note Date: 05/31/24 Principal diagnosis: Reason for follow-up is pneumonia Patient is a 73-year-old male with a past medical history significant for COPD hypertension hyperlipidemia DC osteoarthritis presenting to the hospital for evaluation of weakness patient did have elevated white count with a CT of the chest shows evidence of new bilateral lung masses concerning for possible malignancy and question of pneumonia. On today's evaluation that is 05/31/2024,the patient denies any fever or any chills, patient is breathing comfortably on 4 L current oxygen, the patient denies chest pain shortness of breath and no worsening cough, patient denies abdominal pain, no nausea vomiting or diarrhea. Patient white count normalized to 10.90 creatinine is 1.1 blood and sputum cultures currently pending Objective - Vital Signs Vital signs: Vital Signs Temp 97.3 F L 05/31/24 07:35 Pulse 78 05/31/24 13:23 Resp 18 05/31/24 13:23 BP 172/80 05/31/24 07:35 Pulse Ox 97 05/31/24 07:35 FiO2 Intake & Output 05/30/24 05/31/24 05/31/24 18:59 06:59 18:59 Weight 49.895 kg Other: Voiding Method Toilet Urinal # Voids 1 7 - Exam GENERAL DESCRIPTION: An elderly male lying in bed in no distress RESPIRATORY SYSTEM: Unlabored breathing , decreased breath sounds at bases HEART: S1 S2 regular rate and rhythm , ABDOMEN: Soft , no tenderness EXTREMITIES: No edema feet - Labs CBC & Chem 7: 06/01/24 03:20 06/01/24 03:20 Labs: Abnormal Lab Results - Last 24 Hours (Table) 05/31/24 05/31/24 05/31/24 Range/Units 04:04 04:04 12:04 WBC 10.90 H (4.50-10.00) X 10*3/uL RBC 4.17 L (4.40-5.60) X 10*6/uL Hgb 10.6 L (13.0-17.0) g/dL Hct 35.4 L (39.6-50.0) % MCH 25.4 L (27.0-32.0) pg MCHC 29.9 L (32.0-37.0) g/dL RDW 15.8 H (11.5-14.5) % Plt Count 489 H (140-440) X 10*3/uL Immature Gran # 0.19 H (0.00-0.04) X 10*3/uL Neutrophils # 10.28 H (1.80-7.70) X 10*3/uL Lymphocytes # 0.29 L (0.90-5.00) X 10*3/uL Monocytes # 0.11 L (0.20-1.00) X 10*3/uL Eosinophils # 0 L (0.04-0.35) X 10*3/uL Sodium 130 L (135-145) mmol/L Potassium 6.2 A* 5.9 H (3.5-5.5) mmol/L BUN 44.7 H (9.0-27.0) mg/dL BUN/Creatinine Ratio 40.64 H (12.00-20.00) Ratio Glucose 339 H (70-110) mg/dL Calcium 8.2 L (8.7-10.3) mg/dL Total Bilirubin <0.2 L (0.3-1.2) mg/dL AST 13 L (14-35) U/L Total Protein 5.5 L (6.2-8.2) g/dL Albumin 2.5 L (3.8-4.9) g/dL Albumin/Globulin Ratio 0.83 L (1.60-3.17) Ratio Microbiology - Last 24 Hours (Table) 05/30/24 10:26 Gram Stain - Preliminary Sputum Sputum Culture - Preliminary 05/29/24 09:30 Blood Culture - Preliminary Blood 05/29/24 10:00 Blood Culture - Preliminary Blood Assessment and Plan (1) Pneumonia Current Visit: Yes Status: Acute Code(s): J18.9 - PNEUMONIA, UNSPECIFIED ORGANISM SNOMED Code(s): 088521696 (2) Leukocytosis Current Visit: No Status: Acute Code(s): D72.829 - ELEVATED WHITE BLOOD CELL COUNT, UNSPECIFIED SNOMED Code(s): 503089349 Plan: 1patient presented to hospital with weakness which is likely multifactorial in this patient who did have significant history of COPD now with the elevated white count cough sputum production concerning for pneumonia although CT was also concerning for possible masses, pulmonary is following 2blood and sputum cultures currently pending 3patient is afebrile white count normalized to continue Rocephin 2 g daily while waiting for the culture to finalize Dictation was produced using [employer] dictation software. please excuse any grammatical, word or spelling errors. Time with Patient: Less than 30
[2024-06-01] MEDS ORDERED: INSULIN LISPRO (HumaLOG) 100 UNIT/ML 10 mL VL SQ SCH (12:30)
--- NOTE | 2024-06-01 13:18 | P.PN ---
Subjective Progress Note Date: 06/01/24 Principal diagnosis: Reason for follow-up is pneumonia Patient is a 73-year-old male with a past medical history significant for COPD hypertension hyperlipidemia MT osteoarthritis presenting to the hospital for evaluation of weakness patient did have elevated white count with a CT of the chest shows evidence of new bilateral lung masses concerning for possible malignancy and question of pneumonia. On today's evaluation that is 06/01/2024,the patient remains to be afebrile, patient is on 4 L nasal cannula supplemental oxygen and denies any worsening shortness of breath no chest pain and cough has decreased in intensity.Patient denies having any nausea or vomiting, no abdominal pain and no diarrhea has been reported. Patient white count is 13.70, creatinine is 1.1 blood and sputum cultures currently pending Objective - Vital Signs Vital signs: Vital Signs Temp 97.5 F L 06/01/24 07:19 Pulse 72 06/01/24 11:56 Resp 19 06/01/24 07:19 BP 144/58 06/01/24 07:19 Pulse Ox 95 06/01/24 07:19 FiO2 Intake & Output 05/31/24 06/01/24 06/01/24 18:59 06:59 18:59 Output Total 6 Balance -6 Output: Urine/Stool Mix 6 Other: Voiding Method Toilet Urinal # Voids 12 8 # Bowel Movements 1 - Exam GENERAL DESCRIPTION: An elderly male lying in bed in no distress RESPIRATORY SYSTEM: Unlabored breathing , decreased breath sounds at bases HEART: S1 S2 regular rate and rhythm , ABDOMEN: Soft , no tenderness EXTREMITIES: No edema feet - Labs CBC & Chem 7: 06/01/24 03:20 06/01/24 03:20 Labs: Abnormal Lab Results - Last 24 Hours (Table) 05/31/24 06/01/24 06/01/24 Range/Units 12:04 03:20 03:20 WBC 13.70 H (4.50-10.00) X 10*3/uL RBC 4.28 L (4.40-5.60) X 10*6/uL Hgb 10.8 L (13.0-17.0) g/dL Hct 36.1 L (39.6-50.0) % MCH 25.2 L (27.0-32.0) pg MCHC 29.9 L (32.0-37.0) g/dL RDW 15.8 H (11.5-14.5) % Plt Count 491 H (140-440) X 10*3/uL Immature Gran # 0.17 H (0.00-0.04) X 10*3/uL Neutrophils # 13.12 H (1.80-7.70) X 10*3/uL Lymphocytes # 0.22 L (0.90-5.00) X 10*3/uL Monocytes # 0.17 L (0.20-1.00) X 10*3/uL Eosinophils # 0 L (0.04-0.35) X 10*3/uL Sodium 124 L (135-145) mmol/L Potassium 5.9 H 6.9 A* (3.5-5.1) mmol/L Chloride 91 L (96-109) mmol/L BUN 55.6 H (9.0-27.0) mg/dL BUN/Creatinine Ratio 50.55 H (12.00-20.00) Ratio Glucose 446 H (70-110) mg/dL POC Glucose (mg/dL) (70-110) mg/dL Calcium 8.3 L (8.7-10.3) mg/dL Total Bilirubin <0.2 L (0.3-1.2) mg/dL Total Protein 5.7 L (6.2-8.2) g/dL Albumin 2.6 L (3.8-4.9) g/dL Albumin/Globulin Ratio 0.84 L (1.60-3.17) Ratio 06/01/24 06/01/24 Range/Units 11:48 11:49 WBC (4.50-10.00) X 10*3/uL RBC (4.40-5.60) X 10*6/uL Hgb (13.0-17.0) g/dL Hct (39.6-50.0) % MCH (27.0-32.0) pg MCHC (32.0-37.0) g/dL RDW (11.5-14.5) % Plt Count (140-440) X 10*3/uL Immature Gran # (0.00-0.04) X 10*3/uL Neutrophils # (1.80-7.70) X 10*3/uL Lymphocytes # (0.90-5.00) X 10*3/uL Monocytes # (0.20-1.00) X 10*3/uL Eosinophils # (0.04-0.35) X 10*3/uL Sodium (135-145) mmol/L Potassium (3.5-5.1) mmol/L Chloride (96-109) mmol/L BUN (9.0-27.0) mg/dL BUN/Creatinine Ratio (12.00-20.00) Ratio Glucose (70-110) mg/dL POC Glucose (mg/dL) 504 H* 433 H (70-110) mg/dL Calcium (8.7-10.3) mg/dL Total Bilirubin (0.3-1.2) mg/dL Total Protein (6.2-8.2) g/dL Albumin (3.8-4.9) g/dL Albumin/Globulin Ratio (1.60-3.17) Ratio Microbiology - Last 24 Hours (Table) 05/29/24 09:30 Blood Culture - Preliminary Blood 05/29/24 10:00 Blood Culture - Preliminary Blood 05/30/24 10:26 Gram Stain - Preliminary Sputum Sputum Culture - Preliminary Assessment and Plan (1) Pneumonia Current Visit: Yes Status: Acute Code(s): J18.9 - PNEUMONIA, UNSPECIFIED ORGANISM SNOMED Code(s): 379879014 (2) Leukocytosis Current Visit: No Status: Acute Code(s): D72.829 - ELEVATED WHITE BLOOD CELL COUNT, UNSPECIFIED SNOMED Code(s): 258984009 Plan: 1patient presented to hospital with weakness which is likely multifactorial in this patient who did have significant history of COPD now with the elevated white count cough sputum production concerning for pneumonia although CT was also concerning for possible masses, pulmonary is following 2blood and sputum cultures currently pending 3patient is afebrile white count slightly up today could be related to steroids for now continue Rocephin 2 g daily while waiting for the culture to finalize Dictation was produced using [employer] dictation software. please excuse any grammatical, word or spelling errors. Time with Patient: Less than 30
[2024-06-01 14:17] LABS: Glucose,Whole Blood 390 mg/dL (70-110)
[2024-06-01] MEDS: LACTULOSE 20 GM/30 ML CUP PO PRN (15:33)
[2024-06-01 16:52] LABS: Glucose,Whole Blood 364 mg/dL (70-110)
[2024-06-01] MEDS: FUROSEMIDE 10 MG/ML 2 ML VIAL IV SCH (17:24)
[2024-06-01] MEDS: INSULIN LISPRO (HumaLOG) 100 UNIT/ML 10 mL VL SQ SCH (17:26)
[2024-06-01] MEDS: SODIUM CHLORIDE 0.9% 1,000 ML IV STA (17:27)
--- NOTE | 2024-06-01 19:24 | P.PN ---
Subjective Progress Note Date: 06/01/24 Patient is a 73-year-old male with past medical history significant for hypertension, hyperlipidemia, CAD, previous RI with PCI/stent, peripheral vascular disease, prior left AKA, former tobacco smoker, COPD, and lung mass. Patient does follow in the pulmonary office with Dr. Flanagan. PET scan performed 08/12/2023 demonstrating a left upper lung medial mass measuring 3.1 x 2.4 cm with metabolic activity. Also, small focus of uptake within the dome of the liver. Patient was felt to be a poor candidate for lung biopsy. Directed to radiation oncology. Unfortunately, patient never followed up with this appointment. Patient was scheduled for repeat PET scan, however, he canceled. He states that he has been overwhelmed with personal issues. States his sister recently, he could not make it to the due to severe weakness. Presented to emergency department yesterday morning with a chief complaint of generalized severe weakness. He does have a left [id number] amputation. Was at home, could not transferred back from the bedside commode. Called EMS for transfer to the ED. Also, reporting acute on chronic shortness of breath and a increased cough with white sputum production. Denies any chest pain or hemoptysis. Denies any fevers or chills. Oral intake has been fair. Denies sick contacts. Chest x-ray showing bilateral lung infiltrates including left perihilar masslike consolidation, as well as, a right lower lobe infiltrate. CBC: WBC count 18.1, hemoglobin 11.9, platelets 5 supertight. CMP: Sodium 130, potassium 4.4, chloride 99, serum bicarb 24, BUN 41, creatinine 0.69, glucose 157. Lactic 0.8. LFTs not elevated. Troponin less than 0.012. Urinalysis unremarkable for infection. Viral screen negative for influenza, RSV, COVID. Patient currently sitting up in bed, has pulled himself to the side of the bed. Appears frail and weak. No observable respiratory distress. Current vital signs: Temperature 98 F, heart rate 76 bpm, blood pressure 141/67 mmHg, nontachypneic, SpO2 reading 97% on 4 L/min nasal cannula On 05/31/2024, the patient is being seen for a follow-up. On today's evaluation, the patient is still having some cough and congestion and some shortness of breath. No other new complaints otherwise for now. As stated earlier, the patient has advanced COPD and tumor progression as evident on the most recent CAT scan of the chest. Suspected to have a superimposed pneumonia. Based on that, the patient was given Rocephin and Levaquin and the patient is also on DuoNeb nebulized treatments [id number] and IV Solu-Medrol. The white cell count today is at 10.9 with a hemoglobin 10.6 and a platelet count of 489. BUN is 44 with a creatinine of 1.1. Potassium is at 5.9. Procalcitonin level is at 0.13. UA was negative. Calcium level is at 8.2. Viral screen was negative. Legionella urine antigen was negative. Sputum culture and blood cultures still pending for now. On 06/01/2024, patient is being seen for a follow-up. The patient is resting comfortably in bed. The patient is being treated for an acute CF exacerbation. There may be also a superinfection with a community-acquired pneumonia based on a CAT scan of the chest that was done on 05/30/2024. However, he is enlargement and new lower lung masses and large lymphadenopathy within the mediastinum which is suggestive of progressive disease and he is aware of that. His lung cancer is in progression. The patient remains on IV Rocephin and Levaquin. No new complaints for now. No hemoptysis. No pleurisy. Oxygenation remained stable and the patient is currently on 4 L of O2 nasal cannula with a pulse ox of 93%. White cell count of 13 with a hemoglobin of 10.8. Potassium level is down to 5.8. BUN is 55 with a creatinine 1.1. Sodium is at 124. Blood sugar was noted to be quite elevated at 433. Based on that, based on underlying hyperkalemia, I suggested to give the patient 2 doses of sodium bicarb 50 mEq in addition to starting the patient on insulin. I gave him 10 units and I will start him on Levemir insulin 20 units daily and NovoLog sliding scale coverage. Blood sugars will be monitored. Meanwhile, his steroids will be tapered and the patient be taken after IV Solu-Medrol which will also help with his blood sugar control. Rest of the medications have been all resumed. The sputum sample was positive for corynebacterium. Objective - Vital Signs Vital signs: Vital Signs Temp 97.5 F L 06/01/24 07:19 Pulse 63 06/01/24 07:19 Resp 19 06/01/24 07:19 BP 144/58 06/01/24 07:19 Pulse Ox 95 06/01/24 07:19 FiO2 Intake & Output 05/31/24 06/01/24 06/01/24 18:59 06:59 18:59 Output Total 6 Balance -6 Output: Urine/Stool Mix 6 Other: Voiding Method Toilet Urinal # Voids 12 8 # Bowel Movements 1 - Exam GENERAL EXAM: Alert, 72-year-old white female, cachectic disheveled, overall comfortable in no apparent distress. HEAD: Normocephalic and atraumatic EYES: Normal reaction of pupils, equal size. NOSE: Clear with pink turbinates. Oropharynx/THROAT: Poor dentition. No erythema or exudates. NECK: No masses, no JVD. No palpable lymphadenopathy CHEST: No chest wall deformity. LUNGS: Equal air entry with diffuse expiratory wheezes and rhonchi. On 4 L/min nasal cannula. No conversational dyspnea or accessory muscle use while at rest. . CVS: S1 and S2 normal with no audible murmur, irregular rhythm. No other extra heart sounds ABDOMEN: No hepatosplenomegaly, active bowel sounds, no guarding or rigidity. SPINE: No scoliosis or deformity SKIN: No rashes CENTRAL NERVOUS SYSTEM: No focal deficits, tone is normal in all 4 extremities. EXTREMITIES: Prior left AKA. There is no peripheral edema, clubbing, or cyanosis. Peripheral pulses are intact. - Labs CBC & Chem 7: 06/01/24 03:20 06/01/24 16:48 Labs: Abnormal Lab Results - Last 24 Hours (Table) 05/31/24 06/01/24 06/01/24 Range/Units 12:04 03:20 03:20 WBC 13.70 H (4.50-10.00) X 10*3/uL RBC 4.28 L (4.40-5.60) X 10*6/uL Hgb 10.8 L (13.0-17.0) g/dL Hct 36.1 L (39.6-50.0) % MCH 25.2 L (27.0-32.0) pg MCHC 29.9 L (32.0-37.0) g/dL RDW 15.8 H (11.5-14.5) % Plt Count 491 H (140-440) X 10*3/uL Immature Gran # 0.17 H (0.00-0.04) X 10*3/uL Neutrophils # 13.12 H (1.80-7.70) X 10*3/uL Lymphocytes # 0.22 L (0.90-5.00) X 10*3/uL Monocytes # 0.17 L (0.20-1.00) X 10*3/uL Eosinophils # 0 L (0.04-0.35) X 10*3/uL Sodium 124 L (135-145) mmol/L Potassium 5.9 H 6.9 A* (3.5-5.1) mmol/L Chloride 91 L (96-109) mmol/L BUN 55.6 H (9.0-27.0) mg/dL BUN/Creatinine Ratio 50.55 H (12.00-20.00) Ratio Glucose 446 H (70-110) mg/dL Calcium 8.3 L (8.7-10.3) mg/dL Total Bilirubin <0.2 L (0.3-1.2) mg/dL Total Protein 5.7 L (6.2-8.2) g/dL Albumin 2.6 L (3.8-4.9) g/dL Albumin/Globulin Ratio 0.84 L (1.60-3.17) Ratio Microbiology - Last 24 Hours (Table) 05/29/24 09:30 Blood Culture - Preliminary Blood 05/29/24 10:00 Blood Culture - Preliminary Blood 05/30/24 10:26 Gram Stain - Preliminary Sputum Sputum Culture - Preliminary Assessment and Plan Assessment: Acute COPD exacerbation, Chest x-ray showing bilateral lung infiltrates including left perihilar masslike consolidation, as well as, a right lower lobe infiltrate. Findings concerning for disease progression with possible superimposed community-acquired pneumonia. CAT scan of the chest that was done on 05/30/2024. There are new lower lung masses with enlarging hilar lymphadenopathy and progression of his neoplasm need to be considered. There is also background extensive emphysematous changes. A superimposed pneumonia cannot be completely ruled out as the patient has a consolidation in the poste rior left midlung area which is essentially new. This could be also and area of malignancy. In any rate, the patient was started on broad-spectrum antibiotics. The patient is currently on IV Rocephin and Levaquin. Acute leukocytosis, slightly improved and the white cell count is down to 13 Left upper lung mass, suspicious for bronchogenic carcinoma, most recent PET scan showing left upper lung medial mass measuring 3.1 x 2.4 cm, patient felt to be a poor surgical candidate and was directed to radiation oncology. He never followed up with this appointment. Also, was scheduled for a repeat PET scan to be done outpatient; however, patient canceled this appointment Acute on chronic hypoxemic respiratory failure, currently on 4 L/min nasal cannula Very severe chronic obstructive pulmonary disease, with an FEV1 24% of predicted Hyperglycemia, likely steroid-induced Hyperkalemia History of coronary artery disease, with previous PCI/stent History of hyperlipidemia Hypertension History of peripheral vascular disease History of prior left AKA Chronic anemia, hemoglobin stable History of GERD with esophagitis History of diverticulosis Former tobacco dependence Severe protein calorie malnutrition with a BMI of 13.7 kg/m Marijuana smoker Plan: Titrate oxygen flow to maintain saturation above 90% Continue empiric antibiotics, currently on a combination of Levaquin and Rocephin Sputum cultures positive for corynebacterium Obtain Urine Legionella antigen was negative Continue bronchodilators, continue Symbicort inhailer, continue Spiriva Respimat, Discontinue IV Solu-Medrol Start the patient on Levemir insulin 20 units daily and NovoLog 5 units with meals and sliding scale coverage and monitor blood sugars. The patient will be also given 10 units of NovoLog immediately in addition to sodium bicarb and the potassium level is to be rechecked. Prognosis obviously poor based on above-mentioned findings. Will continue to follow. Time with Patient: Greater than 30
[2024-06-01 20:50] LABS: Glucose,Whole Blood 329 mg/dL (70-110)
[2024-06-02 06:13] LABS: Glucose,Whole Blood 220 mg/dL (70-110)
[2024-06-02] MEDS ORDERED: INSULIN DETEMIR (LEVEMIR) 100 UNIT/ML SYR SQ SCH (07:00)
[2024-06-02] MEDS: INSULIN GLARGINE (LANTUS) 100 UNIT/ML SYR SQ SCH (07:00)
--- NOTE | 2024-06-02 09:40 | P.PN ---
Subjective Progress Note Date: 06/02/24 Baldev Joyce, is a 73-year-old male who presented to [facility] emergency room with a chief complaint of cough and worsening shortness of breath He was evaluated in the emergency room vital examination on presentation revealed a temperature of 98.9 pulse 77 respiration 20 blood pressure 156/73 pulse ox 92% on 4 L nasal cannula Laboratory data revealed a white blood count of 18.1 hemoglobin 11.9 platelet count 579 sodium 130 potassium 5.4 BUN 41 creatinine 0.69, influenza A and B RSV and COVID-19 PCR were all negative, troponin level 0.012 Testing in the emergency room revealed chest x-ray revealed patchy bilateral lung infiltrates, EKG revealed sinus rhythm with sinus arrhythmia Patient was admitted to medical floor for further evaluation and treatment Past medical history is significant for left above-knee amputation, severe peripheral arterial disease, advanced COPD, continued history of smoking On 05/30/2024 patient is alert and oriented x 3. Patient reports some impro vement with shortness of breath. Patient remains on IV antibiotics pulmonary and infectious disease services are following. Current vital signs temp 97.5, heart rate 98, respiratory rate 155/73 with a pulse ox of 93% on 4 L On 05/31/2024 patient was seen and examined on the medical floor he is alert and oriented x 3 in no apparent distress he is still complaining of cough and shortness of breath otherwise he denies any complaints there is no fever or chills no headache or dizziness no chest pain no nausea or vomiting no abdominal pain no diarrhea and no urinary symptoms On 06/01/2024 patient is alert and oriented x 3. Patient is still complaining of some shortness of breath and cough. Patient remains on IV steroids. Pulmonary and infectious disease services are following. Current vital signs temp 97.5, heart 63, respiratory rate 19, blood pressure 144/58 with a pulse ox of 95% on 4 L On 06/02/2024 patient is alert and oriented x 3. Patient having some improvement. Patient denies chest pain or shortness of breath. Patient denies nausea vomiting or diarrhea. Patient denies any urinary burning or frequency. Patient remains on DuoNeb breathing treatments, IV Rocephin. Pulmonary and infectious disease services following. Current vital signs temp 98.4, heart 74, respiratory rate 20, blood pressure 134/60 with a pulse ox of 100% on 4 L. Will consult nephrology services for hyponatremia and hyperkalemia Objective - Vital Signs Vital signs: Vital Signs Temp 98.4 F 06/02/24 06:54 Pulse 68 06/02/24 09:26 Resp 20 06/02/24 06:54 BP 182/75 06/02/24 06:54 Pulse Ox 100 06/02/24 09:28 FiO2 Intake & Output 06/01/24 06/02/24 06/02/24 18:59 06:59 18:59 Output Total 400 1500 850 Balance -400 -1500 -850 Output: Urine 400 1500 850 Straight 850 Other: Voiding Method Toilet Urinal External Catheter # Voids 5 # Bowel Movements 1 - Exam Baldev Joyce, is a 73-year-old male who presented to [facility] emergency room with a chief complaint of cough and worsening shortness of breath He was evaluated in the emergency room vital examination on presentation revealed a temperature of 98.9 pulse 77 respiration 20 blood pressure 156/73 pulse ox 92% on 4 L nasal cannula Laboratory data revealed a white blood count of 18.1 hemoglobin 11.9 platelet count 579 sodium 130 potassium 5.4 BUN 41 creatinine 0.69, influenza A and B RSV and COVID-19 PCR were all negative, troponin level 0.012 Testing in the emergency room revealed chest x-ray revealed patchy bilateral lung infiltrates, EKG revealed sinus rhythm with sinus arrhythmia Patient was admitted to medical floor for further evaluation and treatment Past medical history is significant for left above-knee amputation, severe peripheral arterial disease, advanced COPD, continued history of smoking - Labs CBC & Chem 7: 06/01/24 03:20 06/01/24 16:48 Labs: Abnormal Lab Results - Last 24 Hours (Table) 06/01/24 06/01/24 06/01/24 Range/Units 03:20 11:48 11:49 Sodium 124 L (135-145) mmol/L Potassium 6.9 A* (3.5-5.5) mmol/L Chloride 91 L (96-109) mmol/L BUN 55.6 H (9.0-27.0) mg/dL BUN/Creatinine Ratio 50.55 H (12.00-20.00) Ratio Glucose 446 H (70-110) mg/dL POC Glucose (mg/dL) 504 H* 433 H (70-110) mg/dL Calcium 8.3 L (8.7-10.3) mg/dL Total Bilirubin <0.2 L (0.3-1.2) mg/dL Total Protein 5.7 L (6.2-8.2) g/dL Albumin 2.6 L (3.8-4.9) g/dL Albumin/Globulin Ratio 0.84 L (1.60-3.17) Ratio 06/01/24 06/01/24 06/01/24 Range/Units 14:15 16:48 16:50 Sodium (135-145) mmol/L Potassium 5.8 H (3.5-5.5) mmol/L Chloride (96-109) mmol/L BUN (9.0-27.0) mg/dL BUN/Creatinine Ratio (12.00-20.00) Ratio Glucose (70-110) mg/dL POC Glucose (mg/dL) 390 H 364 H (70-110) mg/dL Calcium (8.7-10.3) mg/dL Total Bilirubin (0.3-1.2) mg/dL Total Protein (6.2-8.2) g/dL Albumin (3.8-4.9) g/dL Albumin/Globulin Ratio (1.60-3.17) Ratio 06/01/24 06/02/24 Range/Units 20:49 06:11 Sodium (135-145) mmol/L Potassium (3.5-5.5) mmol/L Chloride (96-109) mmol/L BUN (9.0-27.0) mg/dL BUN/Creatinine Ratio (12.00-20.00) Ratio Glucose (70-110) mg/dL POC Glucose (mg/dL) 329 H 220 H (70-110) mg/dL Calcium (8.7-10.3) mg/dL Total Bilirubin (0.3-1.2) mg/dL Total Protein (6.2-8.2) g/dL Albumin (3.8-4.9) g/dL Albumin/Globulin Ratio (1.60-3.17) Ratio Microbiology - Last 24 Hours (Table) 05/29/24 09:30 Blood Culture - Preliminary Blood 05/29/24 10:00 Blood Culture - Preliminary Blood 05/30/24 10:26 Gram Stain - Final Sputum Sputum Culture - Final Corynebacterium striatum group Assessment and Plan Plan: Acute on chronic hypoxic respiratory failure Pneumonia Acute exacerbation of chronic obstructive pulmonary disease Underlying history of severe peripheral vascular disease with history of left above-knee amputation Continued history of tobacco abuse Underlying history of depression Underlying history of hypertension Underlying history of hyperlipidemia Previous history of coronary artery disease with history of angioplasty and stent placement Underlying history of anemia maintained on iron supplements Underlying history of degenerative disc disease maintained on narcotic for pain management At this time patient was seen and examined Medications reviewed and reordered He was started on IV antibiotic Levaquin in the emergency room will continue For DVT prophylaxis subcu Lovenox Pulmonary and infectious disease consultation requested Will follow closely Prognosis is guarded due to severity of illness and multiple comorbidities
[2024-06-02] MEDS: LEVOFLOXACIN 750 MG TAB PO SCH (10:32)
--- NOTE | 2024-06-02 10:49 | CDI ---
Documentation Clarification Form Date: 06/02/2024 10:30:20 AM From: Tana Guerra RN CCDS Phone: [phone] Admit Date: 05/29/2024 10:33:00 AM Patient Name: Baldev Joyce Visit Number: [id number] Discharge Date: ATTENTION: The Clinical Documentation Specialists (CDI) and [facility] Coding Staff appreciate your assistance in clarifying documentation. Please respond to the clarification below the line at the bottom and electronically sign. The CDI & [facility] Coding staff will review the response and follow-up if needed. Please note: Queries are made part of the Legal Health Record. If you have any questions, please contact the author of this message via ITS. Doctor: Fidencio Barrientos Your patient is receiving the followin/18 Toprol Xl 25mg PO DAILY, / Lasix 20mg IV Q8H and / Lokelma 5gm po TID . Please clarify what condition/diagnosis is being treated. History/Risk Factors: 73 year old male presents to the ED with cough and worsening shortness of breath. Medical History: COPD, HTN, HLD, [place], Lung CA and AKA 2009. Clinical indicators: VSS: 06/01 BP 114/58; HR 63; Temp 97.5F oral; RR 19, SpO2 95% 4Lnc ECHO: EF 55-60% Normal left ventricle size and systolic function. Mild tricuspid regurgitation with mild pulmonary hypertension. Trace to mild mitral regurgitation. CXR 05/29: Patchy bilateral lung infiltrates. CXR 05/30: Left perihilar opacity and right lower lobe infiltrate. Small bilateral pleural effusions Treatment: 05/30 Toprol Xl 25mg PO DAILY, 2/ Lasix 20mg IV Q8H and 2/20 Lokelma 5gm po TID What diagnosis are you treating with [treatment]? [ xxx ] Acute Diastolic Heart Failure [ ] No additional diagnosis [ ] Other, please specify [ ] Unable to determine (Template Last Reviewed: May 2020) PEDRO PABLO
[2024-06-02 10:53] LABS: Basophils # (A) 0.03 X 10*3/uL (0.00-0.10); Basophils % (A) 0.2 %; Eosinophils # (A) 0.03 X 10*3/uL (0.04-0.35); Eosinophils % (A) 0.2 %; HCT 35.9 % (39.6-50.0); HGB 11.2 g/dL (13.0-17.0); Lymphocytes # (A) 0.51 X 10*3/uL (0.90-5.00); Lymphocytes % (A) 3.7 %; MCH 25.7 pg (27.0-32.0); MCHC 31.2 g/dL (32.0-37.0); MCV 82.3 FL (80.0-97.0); Mean Platelet Volume 10.4 FL (9.5-12.2); Monocytes # (A) 0.53 X 10*3/uL (0.20-1.00); Monocytes % (A) 3.9 %; NRBC Per 100 WBC 0 X 10*3/uL (0.00-0.01); Neutrophils # (A) 12.38 X 10*3/uL (1.80-7.70); Neutrophils % (A) 90.6 %; Platelet Count 490 X 10*3/uL (140-440); RBC 4.36 X 10*6/uL (4.40-5.60); RDW 15.6 % (11.5-14.5); WBC 13.67 X 10*3/uL (4.50-10.00)
[2024-06-02 11:26] LABS: Glucose,Whole Blood 154 mg/dL (70-110)
[2024-06-02 11:31] LABS: ALT 22 U/L (10-49); AST 28 U/L (14-35); Albumin 2.5 g/dL (3.8-4.9); Albumin/Globulin Ratio 0.86 Ratio (1.60-3.17); Alkaline Phosphatase 72 U/L (41-126); BUN/Creat Ratio 54.64 Ratio (12.00-20.00); Blood Urea Nitrogen 60.1 mg/dL (9.0-27.0); Calcium 7.7 mg/dL (8.7-10.3); Chloride 94 mmol/L (96-109); Globulin 2.9 g/dL (1.6-3.3); Glucose 236 mg/dL (70-110); Potassium 5.5 mmol/L (3.5-5.5); Sodium 128 mmol/L (135-145); Total Bilirubin <0.2 mg/dL (0.3-1.2); Total Protein 5.4 g/dL (6.2-8.2)
[2024-06-02] MEDS ORDERED: VANCOMYCIN IV PER PHARMACY 1 EACH MISC MISCELLANE PRN (12:13)
--- NOTE | 2024-06-02 12:15 | P.PN ---
Subjective Progress Note Date: 06/02/24 Principal diagnosis: Reason for follow-up is pneumonia Patient is a 73-year-old male with a past medical history significant for COPD hypertension hyperlipidemia [place] osteoarthritis presenting to the hospital for evaluation of weakness patient did have elevated white count with a CT of the chest shows evidence of new bilateral lung masses concerning for possible malignancy and question of pneumonia. On today's evaluation that is 06/02/2024, the patient continues to be afebrile, the patient is on r 4 L nasal oxygen and breathing comfortably, the Pt denies having any chest pain or any worsening cough, the patient denies having any abdominal pain no vomiting or any diarrhea. Patient white count is 13.67 creatinine is 1.1 sputum is growing corynebacterium blood cultures so far negative Objective - Vital Signs Vital signs: Vital Signs Temp 98.4 F 06/02/24 06:54 Pulse 74 06/02/24 09:38 Resp 20 06/02/24 09:08 BP 182/75 06/02/24 06:54 Pulse Ox 100 06/02/24 09:28 FiO2 Intake & Output 06/01/24 06/02/24 06/02/24 18:59 06:59 18:59 Output Total 400 1500 1775 Balance -400 -1500 -1775 Output: Urine 400 1500 1775 Straight 850 Uretheral (Russo) 925 Other: Voiding Method Toilet Toilet Urinal Urinal External Catheter External Catheter # Voids 5 # Bowel Movements 1 - Exam GENERAL DESCRIPTION: An elderly male lying in bed in no distress RESPIRATORY SYSTEM: Unlabored breathing , decreased breath sounds at bases HEART: S1 S2 regular rate and rhythm , ABDOMEN: Soft , no tenderness EXTREMITIES: No edema feet - Labs CBC & Chem 7: 06/02/24 02:29 06/02/24 02:29 Labs: Abnormal Lab Results - Last 24 Hours (Table) 06/01/24 06/01/24 06/01/24 Range/Units 14:15 16:48 16:50 WBC (4.50-10.00) X 10*3/uL RBC (4.40-5.60) X 10*6/uL Hgb (13.0-17.0) g/dL Hct (39.6-50.0) % MCH (27.0-32.0) pg MCHC (32.0-37.0) g/dL RDW (11.5-14.5) % Plt Count (140-440) X 10*3/uL Immature Gran # (0.00-0.04) X 10*3/uL Neutrophils # (1.80-7.70) X 10*3/uL Lymphocytes # (0.90-5.00) X 10*3/uL Eosinophils # (0.04-0.35) X 10*3/uL Sodium (135-145) mmol/L Potassium 5.8 H (3.5-5.1) mmol/L Chloride (96-109) mmol/L BUN (9.0-27.0) mg/dL BUN/Creatinine Ratio (12.00-20.00) Ratio Glucose (70-110) mg/dL POC Glucose (mg/dL) 390 H 364 H (70-110) mg/dL Hemoglobin A1c (<=6.0) % Calcium (8.7-10.3) mg/dL Total Bilirubin (0.3-1.2) mg/dL Total Protein (6.2-8.2) g/dL Albumin (3.8-4.9) g/dL Albumin/Globulin Ratio (1.60-3.17) Ratio 06/01/24 06/02/24 06/02/24 Range/Units 20:49 02:29 02:29 WBC 13.67 H (4.50-10.00) X 10*3/uL RBC 4.36 L (4.40-5.60) X 10*6/uL Hgb 11.2 L (13.0-17.0) g/dL Hct 35.9 L (39.6-50.0) % MCH 25.7 L (27.0-32.0) pg MCHC 31.2 L (32.0-37.0) g/dL RDW 15.6 H (11.5-14.5) % Plt Count 490 H (140-440) X 10*3/uL Immature Gran # 0.19 H (0.00-0.04) X 10*3/uL Neutrophils # 12.38 H (1.80-7.70) X 10*3/uL Lymphocytes # 0.51 L (0.90-5.00) X 10*3/uL Eosinophils # 0.03 L (0.04-0.35) X 10*3/uL Sodium 128 L (135-145) mmol/L Potassium (3.5-5.1) mmol/L Chloride 94 L (96-109) mmol/L BUN 60.1 H (9.0-27.0) mg/dL BUN/Creatinine Ratio 54.64 H (12.00-20.00) Ratio Glucose 236 H (70-110) mg/dL POC Glucose (mg/dL) 329 H (70-110) mg/dL Hemoglobin A1c (<=6.0) % Calcium 7.7 L (8.7-10.3) mg/dL Total Bilirubin <0.2 L (0.3-1.2) mg/dL Total Protein 5.4 L (6.2-8.2) g/dL Albumin 2.5 L (3.8-4.9) g/dL Albumin/Globulin Ratio 0.86 L (1.60-3.17) Ratio 06/02/24 06/02/24 06/02/24 Range/Units 02:30 06:11 11:24 WBC (4.50-10.00) X 10*3/uL RBC (4.40-5.60) X 10*6/uL Hgb (13.0-17.0) g/dL Hct (39.6-50.0) % MCH (27.0-32.0) pg MCHC (32.0-37.0) g/dL RDW (11.5-14.5) % Plt Count (140-440) X 10*3/uL Immature Gran # (0.00-0.04) X 10*3/uL Neutrophils # (1.80-7.70) X 10*3/uL Lymphocytes # (0.90-5.00) X 10*3/uL Eosinophils # (0.04-0.35) X 10*3/uL Sodium (135-145) mmol/L Potassium (3.5-5.1) mmol/L Chloride (96-109) mmol/L BUN (9.0-27.0) mg/dL BUN/Creatinine Ratio (12.00-20.00) Ratio Glucose (70-110) mg/dL POC Glucose (mg/dL) 220 H 154 H (70-110) mg/dL Hemoglobin A1c 8.1 H (<=6.0) % Calcium (8.7-10.3) mg/dL Total Bilirubin (0.3-1.2) mg/dL Total Protein (6.2-8.2) g/dL Albumin (3.8-4.9) g/dL Albumin/Globulin Ratio (1.60-3.17) Ratio Microbiology - Last 24 Hours (Table) 05/29/24 09:30 Blood Culture - Preliminary Blood 05/29/24 10:00 Blood Culture - Preliminary Blood 05/30/24 10:26 Gram Stain - Final Sputum Sputum Culture - Final Corynebacterium striatum group Assessment and Plan (1) Pneumonia Current Visit: Yes Status: Acute Code(s): J18.9 - PNEUMONIA, UNSPECIFIED ORGANISM SNOMED Code(s): 078470585 (2) Leukocytosis Current Visit: No Status: Acute Code(s): D72.829 - ELEVATED WHITE BLOOD CELL COUNT, UNSPECIFIED SNOMED Code(s): 738721741 Plan: 1patient presented to hospital with weakness which is likely multifactorial in this patient who did have significant history of COPD now with the elevated white count cough sputum production concerning for pneumonia although CT was also concerning for possible masses, pulmonary is following 2blood and sputum cultures currently growing corynebacterium stratum which is considered contaminant but can cause infection in a patient with compromise lung condition which this patient hence we will discontinue Rocephin start the patient on vancomycin and see clinical response Dictation was produced using [employer] dictation software. please excuse any grammatical, word or spelling errors. Time with Patient: Less than 30
--- NOTE | 2024-06-02 12:44 | P.NPCON ---
History of Present Illness - Reason for Consult hyponatremia - History of Present Illness Patient is a 73-year-old male with history of COPD, hypertension, coronary artery disease who is admitted to the hospital with complaints of shortness of breath and cough. He had low-grade temperature. Chest x-ray revealed patchy bilateral lung infiltrates. Serum sodium was 130 on admission and improved to 139 the next day. Subsequently and dropped to 124 yesterday and is 128 today. Saline was discontinued and patient remains on IV Lasix. Blood pressure has not been low Noted to have significant urinary retention and Russo catheter was placed last night. 925 mL of urine charted Potassium was also elevated to 6.9 yesterday and it is down to 5.5 now. 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 knee wound + FOR MRSA. History of high left above-knee amputation done approximately 2009. Last Myocardial Infarction Date:: 2003 History of Any Multi-Drug Resistant Organisms: Acinetobacter (MDRO), MRSA Date of last positivie culture/infection: 04/02/16 MDRO Source:: LT KNEE WOUND Past Surgical History: Heart Catheterization With Stent, Orthopedic Surgery Additional Past Surgical History / Comment(s): STENTS TO LEFT GROIN, LEFT ABOVE THE KNEE AMPUTATION, unsuccessful revascularization left leg, shoulder surgery, surgical debridement of necrotic tissue left scrotal area, LT AKA 03/03/16. left testicle removed. heart stent x1 broken left hip Past Anesthesia/Blood Transfusion Reactions: No Reported Reaction Date of Last Stent Placement:: 2006 Past Psychological History: Anxiety, Depression Smoking Status: Former smoker Past Alcohol Use History: None Reported Additional Past Alcohol Use History / Comment(s): Patient is a ex-smoker one and a half packs of cigarettes per day for 52 years. He smokes marijuana on a daily basis and has done so for many decades. He denies any alcohol use. He lives at home with his and there is one 2 dogs in the home. 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 He denies any service. Patient use to vape daily but quit 4-6 months ago. Past Drug Use History: Marijuana Additional Drug Use History / Comment(s): medical marijuana card-uses daily - Past Family History Sister(s) History Unknown: Yes Family Medical History: Cancer Additional Family Medical History / Comment(s): double mastectomy, still surviving Father History Unknown: Yes Family Medical History: No Reported History Mother History Unknown: Yes Family Medical History: No Reported History Additional Family Medical History / Comment(s): hypoglycemia Medications and Allergies Home Medications Medication Instructions Recorded Confirmed Type Aspirin 81 mg PO DAILY 01/14/14 05/29/24 History DULoxetine HCL [Cymbalta] 60 mg PO DAILY 01/14/14 05/29/24 History Pantoprazole Sodium [Protonix] 40 mg PO DAILY 06/13/18 05/29/24 History amLODIPine [Norvasc] 5 mg PO DAILY 06/13/18 05/29/24 History Atorvastatin [Lipitor] 80 mg PO DAILY #30 tab 07/20/20 05/29/24 Rx Metoprolol Succinate (ER) [Toprol 25 mg PO DAILY #30 tab.er.24h 07/20/20 Rx XL] Albuterol Sulfate [Proair Hfa] 2 puff INHALATION RT-QID PRN 08/29/21 05/29/24 Hi story Tamsulosin [Flomax] 0.4 mg PO DAILY 08/29/21 05/29/24 History HYDROcodone/APAP 10-325MG [Bourbon 1 tab PO Q6HR 07/12/22 05/29/24 History 10-325] Primidone [Mysoline] 25 mg PO HS 07/12/22 05/29/24 History Escitalopram [Lexapro] 20 mg PO DAILY 03/23/23 05/29/24 History Fluticasone/Umeclidin/Vilanter 1 puff INHALATION RT-DAILY 03/23/23 05/29/24 History [Trelegy Ellipta 200-62.5-25] Gabapentin 600 mg PO TID 03/23/23 05/29/24 History Ipratropium-Albuterol Nebulize 3 ml INHALATION RT-QID 30 Days 04/21/23 05/29/24 Rx [Duoneb 0.5 mg-3 mg/3 ml Soln] #120 each Ferrous Sulfate [Feosol] 325 mg PO DAILY 30 Days #30 tab 06/05/23 05/29/24 Rx Nitroglycerin Sl Tabs [Nitrostat] 0.4 mg SUBLINGUAL Q5M PRN 30 Days 06/05/23 05/29/24 Rx #25 tab Baclofen 10 mg PO HS 05/29/24 05/29/24 History Clopidogrel [Plavix] 75 mg PO DAILY 05/29/24 05/29/24 History Lactulose [Constulose] 20 gm PO Q48H PRN 05/29/24 05/29/24 History Melatonin 10 mg PO HS 05/29/24 05/29/24 History Multivitamins, Thera [Multivitamin 1 tab PO DAILY 05/29/24 05/29/24 History (formulary)] Simethicone 180 mg PO DAILY 05/29/24 05/29/24 History Valsartan [Diovan] 320 mg PO DAILY 05/29/24 05/29/24 History traZODone HCL [Desyrel] 100 mg PO HS 05/29/24 05/29/24 History Allergies Allergy/AdvReac Type Severity Reaction Status Date / Time azithromycin [From Zithromax] Allergy Rash/Hives Verified 05/29/24 13:48 Physical Exam Vitals: Vital Signs Temp Pulse Pulse Resp BP Pulse Ox 06/02/24 12:30 78 06/02/24 12:20 70 06/02/24 09:38 74 06/02/24 09:28 100 06/02/24 09:26 68 06/02/24 09:08 74 20 06/02/24 06:54 98.4 F 74 20 182/75 98 06/02/24 01:45 97.0 F L 67 18 134/60 98 06/01/24 20:56 75 06/01/24 20:46 70 06/01/24 19:25 98.4 F 68 18 126/73 93 L 06/01/24 15:25 68 06/01/24 15:16 60 06/01/24 14:05 97.6 F 60 18 129/66 93 L Intake and Output 06/01/24 06/02/24 06/02/24 22:59 06:59 14:59 Output Total 400 1500 1775 Balance -400 -1500 -1775 Output: Urine 400 1500 1775 Straight 850 Uretheral (Russo) 925 Other: Voiding Method Toilet Toilet Urinal Urinal External Catheter External Catheter # Voids 5 # Bowel Movements 1 Patient is awake, comfortable, no acute distress. Examination of the heart S1 and S2 Examination of the lungs bilateral breath sounds are heard Abdomen is soft nontender Examination of lower extremities shows no significant edema left AKA [employer] exam grossly intact Results - Lab Results Most recent lab results Calcium 7.7 mg/dL (8.7-10.3) L 06/02/24 02:29 Magnesium 2.1 mg/dL (1.6-2.3) 05/29/24 09:12 06/02/24 02:29 06/02/24 02:29 Assessment and Plan Assessment: 1. Hyponatremia, possibly hypovolemic versus euvolemic. Patient was maintained on Lasix and normal saline. Check urine osmolality and random urine sodium. I would continue off of fluids and diuretics for now. Possible underlying SIADH given the lung mass suspicious for bronchogenic carcinoma 2. Acute hypoxic respiratory failure 3. Left upper lung mass suspicious for bronchogenic carcinoma 4. Acute exacerbation of COPD 5. Hyperkalemia associated with urine retention Plan: Continue with Russo catheter Continue off of normal saline and DC Lasix later after the third dose today. Check urine osmolality and random urine sodium High suspicion for underlying SIADH
[2024-06-02] MEDS: VANCOMYCIN 1,000 MG in SODIUM CHLORIDE 0.9% 250 ML IVPB ONE (14:36)
[2024-06-02] MEDS: predniSONE 20 MG TAB PO SCH (14:36)
--- NOTE | 2024-06-02 15:56 | P.PN ---
Subjective Progress Note Date: 06/02/24 Patient is a 73-year-old male with past medical history significant for hypertension, hyperlipidemia, CAD, previous CA with PCI/stent, peripheral vascular disease, prior left AKA, former tobacco smoker, COPD, and lung mass. Patient does follow in the pulmonary office with Dr. Flanagan. PET scan performed 08/12/2023 demonstrating a left upper lung medial mass measuring 3.1 x 2.4 cm with metabolic activity. Also, small focus of uptake within the dome of the liver. Patient was felt to be a poor candidate for lung biopsy. Directed to radiation oncology. Unfortunately, patient never followed up with this appointment. Patient was scheduled for repeat PET scan, however, he canceled. He states that he has been overwhelmed with personal issues. States his sister recently, he could not make it to the due to severe weakness. Presented to emergency department yesterday morning with a chief complaint of generalized severe weakness. He does have a left [id number] amputation. Was at home, could not transferred back from the bedside commode. Called EMS for transfer to the ED. Also, reporting acute on chronic shortness of breath and a increased cough with white sputum production. Denies any chest pain or hemoptysis. Denies any fevers or chills. Oral intake has been fair. Denies sick contacts. Chest x-ray showing bilateral lung infiltrates including left perihilar masslike consolidation, as well as, a right lower lobe infiltrate. CBC: WBC count 18.1, hemoglobin 11.9, platelets 5 supertight. CMP: Sodium 130, potassium 4.4, chloride 99, serum bicarb 24, BUN 41, creatinine 0.69, glucose 157. Lactic 0.8. LFTs not elevated. Troponin less than 0.012. Urinalysis unremarkable for infection. Viral screen negative for influenza, RSV, COVID. Patient currently sitting up in bed, has pulled himself to the side of the bed. Appears frail and weak. No observable respiratory distress. Current vital signs: Temperature 98 F, heart rate 76 bpm, blood pressure 141/67 mmHg, nontachypneic, SpO2 reading 97% on 4 L/min nasal cannula On 05/31/2024, the patient is being seen for a follow-up. On today's evaluation, the patient is still having some cough and congestion and some shortness of breath. No other new complaints otherwise for now. As stated earlier, the patient has advanced COPD and tumor progression as evident on the most recent CAT scan of the chest. Suspected to have a superimposed pneumonia. Based on that, the patient was given Rocephin and Levaquin and the patient is also on DuoNeb nebulized treatments [id number] and IV Solu-Medrol. The white cell count today is at 10.9 with a hemoglobin 10.6 and a platelet count of 489. BUN is 44 with a creatinine of 1.1. Potassium is at 5.9. Procalcitonin level is at 0.13. UA was negative. Calcium level is at 8.2. Viral screen was negative. Legionella urine antigen was negative. Sputum culture and blood cultures still pending for now. On 06/01/2024, patient is being seen for a follow-up. The patient is resting comfortably in bed. The patient is being treated for an acute CF exacerbation. There may be also a superinfection with a community-acquired pneumonia based on a CAT scan of the chest that was done on 05/30/2024. However, he is enlargement and new lower lung masses and large lymphadenopathy within the mediastinum which is suggestive of progressive disease and he is aware of that. His lung cancer is in progression. The patient remains on IV Rocephin and Levaquin. No new complaints for now. No hemoptysis. No pleurisy. Oxygenation remained stable and the patient is currently on 4 L of O2 nasal cannula with a pulse ox of 93%. White cell count of 13 with a hemoglobin of 10.8. Potassium level is down to 5.8. BUN is 55 with a creatinine 1.1. Sodium is at 124. Blood sugar was noted to be quite elevated at 433. Based on that, based on underlying hyperkalemia, I suggested to give the patient 2 doses of sodium bicarb 50 mEq in addition to starting the patient on insulin. I gave him 10 units and I will start him on Levemir insulin 20 units daily and NovoLog sliding scale coverage. Blood sugars will be monitored. Meanwhile, his steroids will be tapered and the patient be taken after IV Solu-Medrol which will also help with his blood sugar control. Rest of the medications have been all resumed. The sputum sample was positive for corynebacterium. On 06/02/2024, the patient is being seen for a follow-up. The patient is calm and comfortable. No significant respiratory distress. Noted he was having issues with hyperglycemia yesterday. I start the patient on Lantus insulin 20 units daily and NovoLog 5 units with meal insulin scale coverage. Sugars are under better control. Potassium level has also normalized. He will be started back on prednisone burst taper regarding history of exacerbation. The white cell count of 13.6 with a hemoglobin 11.2 and a platelet count of 490. Sodium is at 128, potassium is at 5.5, BUN 60 with a creatinine of 1.1. Blood sugar control is improved. LFTs are normal. He remains on oxygen at 3 L with a pulse ox of 94%. No other significant events overnight. Objective - Vital Signs Vital signs: Vital Signs Temp 98.4 F 06/02/24 06:54 Pulse 78 06/02/24 12:30 Resp 20 06/02/24 09:08 BP 182/75 06/02/24 06:54 Pulse Ox 100 06/02/24 09:28 FiO2 Intake & Output 06/01/24 06/02/24 06/02/24 18:59 06:59 18:59 Output Total 400 1500 1775 Balance -400 -1500 -1775 Output: Urine 400 1500 1775 Straight 850 Uretheral (Russo) 925 Other: Voiding Method Toilet Toilet Urinal Urinal External Catheter External Catheter # Voids 5 # Bowel Movements 1 - Exam GENERAL EXAM: Alert, 72-year-old white female, cachectic disheveled, overall comfortable in no apparent distress. HEAD: Normocephalic and atraumatic EYES: Normal reaction of pupils, equal size. NOSE: Clear with pink turbinates. Oropharynx/THROAT: Poor dentition. No erythema or exudates. NECK: No masses, no JVD. No palpable lymphadenopathy CHEST: No chest wall deformity. LUNGS: Equal air entry with diffuse expiratory wheezes and rhonchi. On 4 L/min nasal cannula. No conversational dyspnea or accessory muscle use while at rest.. CVS: S1 and S2 normal with no audible murmur, irregular rhythm. No other extra heart sounds ABDOMEN: No hepatosplenomegaly, active bowel sounds, no guarding or rigidity. SPINE: No scoliosis or deformity SKIN: No rashes CENTRAL NERVOUS SYSTEM: No focal deficits, tone is normal in all 4 extremities. EXTREMITIES: Prior left AKA. There is no peripheral edema, clubbing, or cyanosis. Peripheral pulses are intact. - Labs CBC & Chem 7: 06/02/24 02:29 06/02/24 02: Labs: Abnormal Lab Results - Last 24 Hours (Table) 06/01/24 06/01/24 06/01/24 Range/Units 14:15 16:48 16:50 WBC (4.50-10.00) X 10*3/uL RBC (4.40-5.60) X 10*6/uL Hgb (13.0-17.0) g/dL Hct (39.6-50.0) % MCH (27.0-32.0) pg MCHC (32.0-37.0) g/dL RDW (11.5-14.5) % Plt Count (140-440) X 10*3/uL Immature Gran # (0.00-0.04) X 10*3/uL Neutrophils # (1.80-7.70) X 10*3/uL Lymphocytes # (0.90-5.00) X 10*3/uL Eosinophils # (0.04-0.35) X 10*3/uL Sodium (135-145) mmol/L Potassium 5.8 H (3.5-5.1) mmol/L Chloride (96-109) mmol/L BUN (9.0-27.0) mg/dL BUN/Creatinine Ratio (12.00-20.00) Ratio Glucose (70-110) mg/dL POC Glucose (mg/dL) 390 H 364 H (70-110) mg/dL Hemoglobin A1c (<=6.0) % Calcium (8.7-10.3) mg/dL Total Bilirubin (0.3-1.2) mg/dL Total Protein (6.2-8.2) g/dL Albumin (3.8-4.9) g/dL Albumin/Globulin Ratio (1.60-3.17) Ratio 06/01/24 06/02/24 06/02/24 Range/Units 20:49 02:29 02:29 WBC 13.67 H (4.50-10.00) X 10*3/uL RBC 4.36 L (4.40-5.60) X 10*6/uL Hgb 11.2 L (13.0-17.0) g/dL Hct 35.9 L (39.6-50.0) % MCH 25.7 L (27.0-32.0) pg MCHC 31.2 L (32.0-37.0) g/dL RDW 15.6 H (11.5-14.5) % Plt Count 490 H (140-440) X 10*3/uL Immature Gran # 0.19 H (0.00-0.04) X 10*3/uL Neutrophils # 12.38 H (1.80-7.70) X 10*3/uL Lymphocytes # 0.51 L (0.90-5.00) X 10*3/uL Eosinophils # 0.03 L (0.04-0.35) X 10*3/uL Sodium 128 L (135-145) mmol/L Potassium (3.5-5.1) mmol/L Chloride 94 L (96-109) mmol/L BUN 60.1 H (9.0-27.0) mg/dL BUN/Creatinine Ratio 54.64 H (12.00-20.00) Ratio Glucose 236 H (70-110) mg/dL POC Glucose (mg/dL) 329 H (70-110) mg/dL Hemoglobin A1c (<=6.0) % Calcium 7.7 L (8.7-10.3) mg/dL Total Bilirubin <0.2 L (0.3-1.2) mg/dL Total Protein 5.4 L (6.2-8.2) g/dL Albumin 2.5 L (3.8-4.9) g/dL Albumin/Globulin Ratio 0.86 L (1.60-3.17) Ratio 06/02/24 06/02/24 06/02/24 Range/Units 02:30 06:11 11:24 WBC (4.50-10.00) X 10*3/uL RBC (4.40-5.60) X 10*6/uL Hgb (13.0-17.0) g/dL Hct (39.6-50.0) % MCH (27.0-32.0) pg MCHC (32.0-37.0) g/dL RDW (11.5-14.5) % Plt Count (140-440) X 10*3/uL Immature Gran # (0.00-0.04) X 10*3/uL Neutrophils # (1.80-7.70) X 10*3/uL Lymphocytes # (0.90-5.00) X 10*3/uL Eosinophils # (0.04-0.35) X 10*3/uL Sodium (135-145) mmol/L Potassium (3.5-5.1) mmol/L Chloride (96-109) mmol/L BUN (9.0-27.0) mg/dL BUN/Creatinine Ratio (12.00-20.00) Ratio Glucose (70-110) mg/dL POC Glucose (mg/dL) 220 H 154 H (70-110) mg/dL Hemoglobin A1c 8.1 H (<=6.0) % Calcium (8.7-10.3) mg/dL Total Bilirubin (0.3-1.2) mg/dL Total Protein (6.2-8.2) g/dL Albumin (3.8-4.9) g/dL Albumin/Globulin Ratio (1.60-3.17) Ratio Microbiology - Last 24 Hours (Table) 05/29/24 09:30 Blood Culture - Preliminary Blood 05/29/24 10:00 Blood Culture - Preliminary Blood 05/30/24 10:26 Gram Stain - Final Sputum Sputum Culture - Final Corynebacterium striatum group Assessment and Plan Assessment: Acute COPD exacerbation, Chest x-ray showing bilateral lung infiltrates including left perihilar masslike consolidation, as well as, a right lower lobe infiltrate. Findings concerning for disease progression with possible superimposed community-acquired pneumonia. CAT scan of the chest that was done on 05/30/2024. There are new lower lung masses with enlarging hilar lymphadenopathy and progression of his neoplasm need to be considered. There is also background extensive emphysematous changes. A superimposed pneumonia cannot be completely ruled out as the patient has a consolidation in the posterior left midlung area which is essentially new. This could be also and area of malignancy. In any rate, the patient was started on broad-spectrum antibiotics. The patient is currently on IV Rocephin and Levaquin. Acute leukocytosis, slightly improved and the white cell count is down to 13 Left upper lung mass, suspicious for bronchogenic carcinoma, most recent PET scan showing left upper lung medial mass measuring 3.1 x 2.4 cm, patient felt to be a poor surgical candidate and was directed to radiation oncology. He never followed up with this appointment. Also, was scheduled for a repeat PET scan to be done outpatient; however, patient canceled this appointment Acute on chronic hypoxemic respiratory failure, currently on 4 L/min nasal cannu la Very severe chronic obstructive pulmonary disease, with an FEV1 24% of predicted Hyperglycemia, likely steroid-induced, improved, currently on Lantus Hyperkalemia History of coronary artery disease, with previous PCI/stent History of hyperlipidemia Hypertension History of peripheral vascular disease History of prior left AKA Chronic anemia, hemoglobin stable History of GERD with esophagitis History of diverticulosis Former tobacco dependence Severe protein calorie malnutrition with a BMI of 13.7 kg/m Marijuana smoker Plan: Titrate oxygen flow to maintain saturation above 90% Continue empiric antibiotics, currently on a combination of Levaquin and Rocephin Sputum cultures positive for corynebacterium Obtain Urine Legionella antigen was negative Continue bronchodilators, continue Symbicort inhailer, continue Spiriva Respimat, Put the patient on prednisone burst taper Monitor blood sugars Continue Levemir insulin 20 units daily and NovoLog 5 units with meals and sli ding scale coverage and monitor blood sugars. The patient will be also given 10 units of Potassium level is improved Prognosis obviously poor based on above-mentioned findings. Will continue to follow. Time with Patient: Greater than 30
[2024-06-02 16:41] LABS: Glucose,Whole Blood 287 mg/dL (70-110)
[2024-06-02 20:16] LABS: Glucose,Whole Blood 241 mg/dL (70-110)
[2024-06-02] MEDS: BENZOCAINE/MENTHOL LOZENG 1 EACH LOZENGE MUCOUS MEM PRN (22:25)
[2024-06-03 04:23] LABS: African American GFR (CKD) >90 (>60 ml/min/1.73 sqM); Non-African American GFR(CKD) 85 (>60 ml/min/1.73 sqM)
[2024-06-03 06:02] LABS: Glucose,Whole Blood 139 mg/dL (70-110)
[2024-06-03] MEDS: VANCOMYCIN 1,000 MG in SODIUM CHLORIDE 0.9% 250 ML IVPB SCH (11:23)
[2024-06-03 12:00] LABS: Glucose,Whole Blood 163 mg/dL (70-110)
[2024-06-03 12:21] LABS: Anion Gap 5 mmol/L; Blood Urea Nitrogen 62 mg/dL (9-20); Calcium 8.6 mg/dL (8.4-10.2); Carbon Dioxide 31 mmol/L (22-30); Chloride 94 mmol/L (98-107); Glucose 175 mg/dL (74-99); Potassium 4.8 mmol/L (3.5-5.1); Sodium 130 mmol/L (137-145)
--- NOTE | 2024-06-03 12:45 | P.PN ---
Subjective Progress Note Date: 06/03/24 Principal diagnosis: Reason for follow-up is pneumonia Patient is a 73-year-old male with a past medical history significant for COPD hypertension hyperlipidemia AL osteoarthritis presenting to the hospital for evaluation of weakness patient did have elevated white count with a CT of the chest shows evidence of new bilateral lung masses concerning for possible malignancy and question of pneumonia. On today's evaluation that is 06/03/2024, patient did not have any fever and denies any chills, patient is breathing comfortably on 3 L nasal oxygen patient with no chest pain or any worsening cough patient did not have any abdominal pain nausea vomiting however is complaining of loose stools. Patient did have creatinine 0.85 sputum is growing corynebacterium Objective - Vital Signs Vital signs: Vital Signs Temp 98.1 F 06/03/24 07:30 Pulse 78 06/03/24 07:30 Resp 16 06/03/24 07:30 BP 156/79 06/03/24 07:30 Pulse Ox 97 06/03/24 07:30 FiO2 Intake & Output 06/02/24 06/03/24 06/03/24 18:59 06:59 18:59 Output Total 2975 1800 Balance -2975 -1800 Weight 49.895 kg Output: Urine 2975 1800 Straight 850 Uretheral (Russo) 925 Other: Voiding Method Indwelling Catheter Indwelling Catheter Indwelling Catheter - Exam GENERAL DESCRIPTION: An elderly male lying in bed in no distress RESPIRATORY SYSTEM: Unlabored breathing , decreased breath sounds at bases HEART: S1 S2 regular rate and rhythm , ABDOMEN: Soft , no tenderness EXTREMITIES: No edema feet - Labs CBC & Chem 7: 06/02/24 02:29 06/03/24 03:19 Labs: Abnormal Lab Results - Last 24 Hours (Table) 06/02/24 06/02/24 06/03/24 Range/Units 16:40 20:14 03:19 Sodium 130 L (137-145) mmol/L Chloride 94 L (98-107) mmol/L Carbon Dioxide 31 H (22-30) mmol/L BUN 62 H (9-20) mg/dL Glucose 175 H (74-99) mg/dL POC Glucose (mg/dL) 287 H 241 H (70-110) mg/dL 06/03/24 06/03/24 Range/Units 06:00 11:58 Sodium (137-145) mmol/L Chloride (98-107) mmol/L Carbon Dioxide (22-30) mmol/L BUN (9-20) mg/dL Glucose (74-99) mg/dL POC Glucose (mg/dL) 139 H 163 H (70-110) mg/dL Assessment and Plan (1) Pneumonia Current Visit: Yes Status: Acute Code(s): J18.9 - PNEUMONIA, UNSPECIFIED ORGANISM SNOMED Code(s): 599656331 (2) Leukocytosis Current Visit: No Status: Acute Code(s): D72.829 - ELEVATED WHITE BLOOD CELL COUNT, UNSPECIFIED SNOMED Code(s): 983378470 (3) Diarrhea Current Visit: Yes Status: Acute Code(s): R19.7 - DIARRHEA, UNSPECIFIED SNOMED Code(s): 25226158 Plan: 1patient presented to hospital with weakness which is likely multifactorial in this patient who did have significant history of COPD now with the elevated white count cough sputum production concerning for pneumonia although CT was also concerning for possible masses, pulmonary is following 2blood culture have been negative and sputum cultures currently growing corynebacterium stratum which is considered contaminant but can cause infection in a patient with compromise lung condition which this patient 3patient to continue with vancomycin pharmacy to dose will add Questran for symptomatic relief of his diarrhea encouraged to increase his yogurt intake Dictation was produced using [employer] dictation software. please excuse any grammatical, word or spelling errors. Time with Patient: Less than 30
--- NOTE | 2024-06-03 14:43 | P.PN ---
Subjective Progress Note Date: 06/03/24 Patient is a 73-year-old male with past medical history significant for hypertension, hyperlipidemia, CAD, previous GA with PCI/stent, peripheral vascular disease, prior left AKA, former tobacco smoker, COPD, and lung mass. Patient does follow in the pulmonary office with Dr. Flanagan. PET scan performed 08/12/2023 demonstrating a left upper lung medial mass measuring 3.1 x 2.4 cm with metabolic activity. Also, small focus of uptake within the dome of the liver. Patient was felt to be a poor candidate for lung biopsy. Directed to radiation oncology. Unfortunately, patient never followed up with this appointment. Patient was scheduled for repeat PET scan, however, he canceled. He states that he has been overwhelmed with personal issues. States his sister recently, he could not make it to the due to severe weakness. Presented to emergency department yesterday morning with a chief complaint of generalized severe weakness. He does have a left [id number] amputation. Was at home, could not transferred back from the bedside commode. Called EMS for transfer to the ED. Also, reporting acute on chronic shortness of breath and a increased cough with white sputum production. Denies any chest pain or hemoptysis. Denies any fevers or chills. Oral intake has been fair. Denies sick contacts. Chest x-ray showing bilateral lung infiltrates including left perihilar masslike consolidation, as well as, a right lower lobe infiltrate. CBC: WBC count 18.1, hemoglobin 11.9, platelets 5 supertight. CMP: Sodium 130, potassium 4.4, chloride 99, serum bicarb 24, BUN 41, creatinine 0.69, glucose 157. Lactic 0.8. LFTs not elevated. Troponin less than 0.012. Urinalysis unremarkable for infection. Viral screen negative for influenza, RSV, COVID. Patient currently sitting up in bed, has pulled himself to the side of the bed. Appears frail and weak. No observable respiratory distress. Current vital signs: Temperature 98 F, heart rate 76 bpm, blood pressure 141/67 mmHg, nontachypneic, SpO2 reading 97% on 4 L/min nasal cannula On 05/31/2024, the patient is being seen for a follow-up. On today's evaluation, the patient is still having some cough and congestion and some shortness of breath. No other new complaints otherwise for now. As stated earlier, the patient has advanced COPD and tumor progression as evident on the most recent CAT scan of the chest. Suspected to have a superimposed pneumonia. Based on that, the patient was given Rocephin and Levaquin and the patient is also on DuoNeb nebulized treatments [id number] and IV Solu-Medrol. The white cell count today is at 10.9 with a hemoglobin 10.6 and a platelet count of 489. BUN is 44 with a creatinine of 1.1. Potassium is at 5.9. Procalcitonin level is at 0.13. UA was negative. Calcium level is at 8.2. Viral screen was negative. Legionella urine antigen was negative. Sputum culture and blood cultures still pending for now. On 06/01/2024, patient is being seen for a follow-up. The patient is resting comfortably in bed. The patient is being treated for an acute CF exacerbation. There may be also a superinfection with a community-acquired pneumonia based on a CAT scan of the chest that was done on 05/30/2024. However, he is enlargement and new lower lung masses and large lymphadenopathy within the mediastinum which is suggestive of progressive disease and he is aware of that. His lung cancer is in progression. The patient remains on IV Rocephin and Levaquin. No new complaints for now. No hemoptysis. No pleurisy. Oxygenation remained stable and the patient is currently on 4 L of O2 nasal cannula with a pulse ox of 93%. White cell count of 13 with a hemoglobin of 10.8. Potassium level is down to 5.8. BUN is 55 with a creatinine 1.1. Sodium is at 124. Blood sugar was noted to be quite elevated at 433. Based on that, based on underlying hyperkalemia, I suggested to give the patient 2 doses of sodium bicarb 50 mEq in addition to starting the patient on insulin. I gave him 10 units and I will start him on Levemir insulin 20 units daily and NovoLog sliding scale coverage. Blood sugars will be monitored. Meanwhile, his steroids will be tapered and the patient be taken after IV Solu-Medrol which will also help with his blood sugar control. Rest of the medications have been all resumed. The sputum sample was positive for corynebacterium. On 06/02/2024, the patient is being seen for a follow-up. The patient is calm and comfortable. No significant respiratory distress. Noted he was having issues with hyperglycemia yesterday. I start the patient on Lantus insulin 20 units daily and NovoLog 5 units with meal insulin scale coverage. Sugars are under better control. Potassium level has also normalized. He will be started back on prednisone burst taper regarding history of exacerbation. The white cell count of 13.6 with a hemoglobin 11.2 and a platelet count of 490. Sodium is at 128, potassium is at 5.5, BUN 60 with a creatinine of 1.1. Blood sugar control is improved. LFTs are normal. He remains on oxygen at 3 L with a pulse ox of 94%. No other significant events overnight. On 06/03/2024, the patient is feeling less short of breath. Less bronchospastic and wheezy. Start back on oral prednisone without any major rise in the blood sugars. Most recent blood sugars at 163. Sodium is at 130, BUN is 62 with a creatinine of 0.8. The patient is currently on DuoNeb updrafts. The patient is on Symbicort as maintenance 2 puffs twice a day. The patient is also on prednisone 40 mg p.o. daily. The patient is receiving Lantus insulin 20 units daily and NovoLog 5 units with meals and sliding scale coverage. Rest of medications remain unchanged. Objective - Vital Signs Vital signs: Vital Signs Temp 98.1 F 06/03/24 07:30 Pulse 78 06/03/24 07:30 Resp 16 06/03/24 07:30 BP 156/79 06/03/24 07:30 Pulse Ox 97 06/03/24 07:30 FiO2 Intake & Output 06/02/24 06/03/24 06/03/24 18:59 06:59 18:59 Output Total 2975 1800 Balance -2975 -1800 Weight 49.895 kg Output: Urine 2975 1800 Straight 850 Uretheral (Russo) 925 Other: Voiding Method Indwelling Catheter Indwelling Catheter Indwelling Catheter - Exam GENERAL EXAM: Alert, 72-year-old white female, cachectic disheveled, overall comfortable in no apparent distress. HEAD: Normocephalic and atraumatic EYES: Normal reaction of pupils, equal size. NOSE: Clear with pink turbinates. Oropharynx/THROAT: Poor dentition. No erythema or exudates. NECK: No masses, no JVD. No palpable lymphadenopathy CHEST: No chest wall deformity. LUNGS: Equal air entry with diffuse expiratory wheezes and rhonchi. On 4 L/min nasal cannula. No conversational dyspnea or accessory muscle use while at rest.. CVS: S1 and S2 normal with no audible murmur, irregular rhythm. No other extra heart sounds ABDOMEN: No hepatosplenomegaly, active bowel sounds, no guarding or rigidity. SPINE: No scoliosis or deformity SKIN: No rashes CENTRAL NERVOUS SYSTEM: No focal deficits, tone is normal in all 4 extremities. EXTREMITIES: Prior left AKA. There is no peripheral edema, clubbing, or cyanosis. Peripheral pulses are intact. - Labs CBC & Chem 7: 06/02/24 02:29 06/03/24 03:19 Labs: Abnormal Lab Results - Last 24 Hours (Table) 06/02/24 06/02/24 06/03/24 Range/Units 16:40 20:14 06:00 POC Glucose (mg/dL) 287 H 241 H 139 H (70-110) mg/dL Assessment and Plan Assessment: Acute COPD exacerbation, Chest x-ray showing bilateral lung infiltrates including left perihilar masslike consolidation, as well as, a right lower lobe infiltrate. Findings concerning for disease progression with possible superimposed community-acquired pneumonia. CAT scan of the chest that was done on 05/30/2024. There are new lower lung masses with enlarging hilar lymphadenopathy and progression of his neoplasm need to be considered. There is also background extensive emphysematous changes. A superimposed pneumonia cannot be completely ruled out as the patient has a consolidation in the posterior left midlung area which is essentially new. This could be also and area of malignancy. In any rate, the patient was started on broad-spectrum antibiotics. The patient was receiving Rocephin and vancomycin and the patient was switched to vancomycin by infectious disease based on presence of corynebacterium in sputum. Acute leukocytosis, slightly improved and the white cell count is down to 13 Left upper lung mass, suspicious for bronchogenic carcinoma, most recent PET scan showing left upper lung medial mass measuring 3.1 x 2.4 cm, patient felt to be a poor surgical candidate and was directed to radiation oncology. He never followed up with this appointment. Also, was scheduled for a repeat PET scan to be done outpatient; however, patient canceled this appointment Acute on chronic hypoxemic respiratory failure, currently on 4 L/min nasal cannula Very severe chronic obstructive pulmonary disease, with an FEV1 24% of predicted Hyperglycemia, likely steroid-induced, improved, currently on Lantus Hyperkalemia History of coronary artery disease, with previous PCI/stent History of hyperlipidemia Hypertension History of peripheral vascular disease History of prior left AKA Chronic anemia, hemoglobin stable History of GERD with esophagitis History of diverticulosis Former tobacco dependence Severe protein calorie malnutrition with a BMI of 13.7 kg/m Marijuana smoker Plan: Titrate oxygen flow to maintain saturation above 90% Continue empiric antibiotics, currently on vancomycin Sputum cultures positive for corynebacterium Obtain Urine Legionella antigen was negative Continue bronchodilators, continue Symbicort inhailer, continue Spiriva Resp imat, Prednisone 40 mg p.o. daily Monitor blood sugars Continue Levemir insulin 20 units daily and NovoLog 5 units with meals and sliding scale coverage and monitor blood sugars. The patient will be also given 10 units of Potassium level is improved Prognosis obviously poor based on above-mentioned findings. Will continue to follow.
--- NOTE | 2024-06-03 14:59 | P.PN ---
Subjective Progress Note Date: 06/03/24 Baldev Joyce, is a 73-year-old male who presented to [facility] emergency room with a chief complaint of cough and worsening shortness of breath He was evaluated in the emergency room vital examination on presentation revealed a temperature of 98.9 pulse 77 respiration 20 blood pressure 156/73 pulse ox 92% on 4 L nasal cannula Laboratory data revealed a white blood count of 18.1 hemoglobin 11.9 platelet count 579 sodium 130 potassium 5.4 BUN 41 creatinine 0.69, influenza A and B RSV and COVID-19 PCR were all negative, troponin level 0.012 Testing in the emergency room revealed chest x-ray revealed patchy bilateral lung infiltrates, EKG revealed sinus rhythm with sinus arrhythmia Patient was admitted to medical floor for further evaluation and treatment Past medical history is significant for left above-knee amputation, severe peripheral arterial disease, advanced COPD, continued history of smoking On 05/30/2024 patient is alert and oriented x 3. Patient reports some impro vement with shortness of breath. Patient remains on IV antibiotics pulmonary and infectious disease services are following. Current vital signs temp 97.5, heart rate 98, respiratory rate 155/73 with a pulse ox of 93% on 4 L On 05/31/2024 patient was seen and examined on the medical floor he is alert and oriented x 3 in no apparent distress he is still complaining of cough and shortness of breath otherwise he denies any complaints there is no fever or chills no headache or dizziness no chest pain no nausea or vomiting no abdominal pain no diarrhea and no urinary symptoms On 06/01/2024 patient is alert and oriented x 3. Patient is still complaining of some shortness of breath and cough. Patient remains on IV steroids. Pulmonary and infectious disease services are following. Current vital signs temp 97.5, heart 63, respiratory rate 19, blood pressure 144/58 with a pulse ox of 95% on 4 L On 06/02/2024 patient is alert and oriented x 3. Patient having some improvement. Patient denies chest pain or shortness of breath. Patient denies nausea vomiting or diarrhea. Patient denies any urinary burning or frequency. Patient remains on DuoNeb breathing treatments, IV Rocephin. Pulmonary and infectious disease services following. Current vital signs temp 98.4, heart 74, respiratory rate 20, blood pressure 134/60 with a pulse ox of 100% on 4 L. Will consult nephrology services for hyponatremia and hyperkalemia On 06/03/2024 patient was seen and examined on the medical floor he is alert and oriented x 3 in no apparent distress there is no fever or chills no headache or dizziness no chest pain no shortness of breath no cough no nausea or vomiting no abdominal pain no diarrhea and no urinary symptoms patient has severe generalized weakness, plan is for transfer to rehab on Wednesday. Patient has severe hyperkalemia, which improved with current medications, will continue to monitor labs daily. Objective - Vital Signs Vital signs: Vital Signs Temp 97.8 F 06/03/24 13:40 Pulse 68 06/03/24 13:40 Resp 18 06/03/24 13:40 BP 119/55 06/03/24 13:40 Pulse Ox 95 06/03/24 13:40 FiO2 Intake & Output 06/02/24 06/03/24 06/03/24 18:59 06:59 18:59 Output Total 2975 1800 Balance -2975 -1800 Weight 49.895 kg Output: Urine 2975 1800 Straight 850 Uretheral (Russo) 925 Other: Voiding Method Indwelling Catheter Indwelling Catheter Indwelling Catheter - Exam Baldev Joyce, is a 73-year-old male who presented to [facility] emergency room with a chief complaint of cough and worsening shortness of breath He was evaluated in the emergency room vital examination on presentation reveal ed a temperature of 98.9 pulse 77 respiration 20 blood pressure 156/73 pulse ox 92% on 4 L nasal cannula Laboratory data revealed a white blood count of 18.1 hemoglobin 11.9 platelet count 579 sodium 130 potassium 5.4 BUN 41 creatinine 0.69, influenza A and B RSV and COVID-19 PCR were all negative, troponin level 0.012 Testing in the emergency room revealed chest x-ray revealed patchy bilateral holden ng infiltrates, EKG revealed sinus rhythm with sinus arrhythmia Patient was admitted to medical floor for further evaluation and treatment Past medical history is significant for left above-knee amputation, severe peripheral arterial disease, advanced COPD, continued history of smoking - Labs CBC & Chem 7: 06/02/24 02:29 06/03/24 03:19 Labs: Abnormal Lab Results - Last 24 Hours (Table) 06/02/24 06/02/24 06/03/24 Range/Units 16:40 20:14 03:19 Sodium 130 L (137-145) mmol/L Chloride 94 L (98-107) mmol/L Carbon Dioxide 31 H (22-30) mmol/L BUN 62 H (9-20) mg/dL Glucose 175 H (74-99) mg/dL POC Glucose (mg/dL) 287 H 241 H (70-110) mg/dL 06/03/24 06/03/24 Range/Units 06:00 11:58 Sodium (137-145) mmol/L Chloride (98-107) mmol/L Carbon Dioxide (22-30) mmol/L BUN (9-20) mg/dL Glucose (74-99) mg/dL POC Glucose (mg/dL) 139 H 163 H (70-110) mg/dL Assessment and Plan Plan: Acute on chronic hypoxic respiratory failure Pneumonia Acute exacerbation of chronic obstructive pulmonary disease Underlying history of severe peripheral vascular disease with history of left above-knee amputation Continued history of tobacco abuse Underlying history of depression Underlying history of hypertension Underlying history of hyperlipidemia Previous history of coronary artery disease with history of angioplasty and stent placement Underlying history of anemia maintained on iron supplements Underlying history of degenerative disc disease maintained on narcotic for pain management At this time patient was seen and examined Medications reviewed and reordered He was started on IV antibiotic Levaquin in the emergency room will continue For DVT prophylaxis subcu Lovenox Pulmonary and infectious disease consultation requested Will follow closely Prognosis is guarded due to severity of illness and multiple comorbidities
--- NOTE | 2024-06-03 16:10 | P.PN ---
Subjective Patient is seen for follow-up for hyponatremia. Possible underlying SIADH Improved with diuresis. Saline has been discontinued along with diuretics. Urine sodium and urine osmolality is pending. Serum sodium at 130 today. No significant complaints Tolerating oral intake Objective - Vital Signs Vital signs: Vital Signs Temp 97.8 F 06/03/24 13:40 Pulse 68 06/03/24 13:40 Resp 18 06/03/24 13:40 BP 119/55 06/03/24 13:40 Pulse Ox 95 06/03/24 13:40 FiO2 Intake & Output 06/02/24 06/03/24 06/03/24 18:59 06:59 18:59 Output Total 2975 1800 Balance -2975 -1800 Weight 49.895 kg Output: Urine 2975 1800 Straight 850 Uretheral (Russo) 925 Other: Voiding Method Indwelling Catheter Indwelling Catheter Indwelling Catheter - Exam Patient is awake, comfortable, no acute distress. 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 Hyponatremia, possibly hypovolemic versus euvolemic. Patient was maintained on Lasix and normal saline. Urine sodium and urine osmolality is pending. Improved with diuresis. Currently off of Lasix and normal saline. Possible underlying SIADH given the lung mass suspicious for bronchogenic carcinoma 2. Acute hypoxic respiratory failure 3. Left upper lung mass suspicious for bronchogenic carcinoma 4. Acute exacerbation of COPD 5. Hyperkalemia associated with urine retention Plan: Continue with Russo catheter Continue off of normal saline and Lasix Check urine osmolality and random urine sodium High suspicion for underlying SIADH Encouraged increased oral intake particularly protein
[2024-06-03 16:52] LABS: Glucose,Whole Blood 312 mg/dL (70-110)
[2024-06-03 20:45] LABS: Glucose,Whole Blood 263 mg/dL (70-110)
[2024-06-04 04:55] LABS: ALT 23 U/L (4-49); AST 24 U/L (17-59); African American GFR (CKD) >90 (>60 ml/min/1.73 sqM); Albumin 2.4 g/dL (3.5-5.0); Albumin/Globulin Ratio 0.8; Alkaline Phosphatase 61 U/L (38-126); Anion Gap 7 mmol/L; Blood Urea Nitrogen 64 mg/dL (9-20); Calcium 8.2 mg/dL (8.4-10.2); Carbon Dioxide 29 mmol/L (22-30); Chloride 92 mmol/L (98-107); Globulin 3.1 g/dL; Glucose 118 mg/dL (74-99); Non-African American GFR(CKD) 86 (>60 ml/min/1.73 sqM); Potassium 4.4 mmol/L (3.5-5.1); Sodium 128 mmol/L (137-145); Total Bilirubin 0.4 mg/dL (0.2-1.3); Total Protein 5.5 g/dL (6.3-8.2)
[2024-06-04 05:04] LABS: Anisocytosis Slight; Basophils % (A) 0 %; Eosinophils # (A) 0.2 k/uL (0-0.7); Eosinophils % (A) 2 %; HCT 37.8 % (39.0-53.0); HGB 11.6 gm/dL (13.0-17.5); Hypochromasia Marked; Lymphocytes % (A) 7 %; MCH 25.9 pg (25.0-35.0); MCHC 30.7 g/dL (31.0-37.0); MCV 84.4 fL (80.0-100.0); Mean Platelet Volume 8.1; Monocytes # (A) 0.7 k/uL (0-1.0); Monocytes % (A) 5 %; Neutrophils # (A) 11.8 k/uL (1.3-7.7); Neutrophils % (A) 85 %; Platelet Count 441 k/uL (150-450); RBC 4.47 m/uL (4.30-5.90); RDW 16.2 % (11.5-15.5); WBC 13.9 k/uL (3.8-10.6)
[2024-06-04] MEDS: VANCOMYCIN 1,000 MG in SODIUM CHLORIDE 0.9% 250 ML IVPB SCH (05:43)
[2024-06-04 06:24] LABS: Glucose,Whole Blood 109 mg/dL (70-110)
--- NOTE | 2024-06-04 10:42 | P.PN ---
Subjective Progress Note Date: 06/04/24 Baldev Joyce, is a 73-year-old male who presented to [facility] emergency room with a chief complaint of cough and worsening shortness of breath He was evaluated in the emergency room vital examination on presentation revealed a temperature of 98.9 pulse 77 respiration 20 blood pressure 156/73 pulse ox 92% on 4 L nasal cannula Laboratory data revealed a white blood count of 18.1 hemoglobin 11.9 platelet count 579 sodium 130 potassium 5.4 BUN 41 creatinine 0.69, influenza A and B RSV and COVID-19 PCR were all negative, troponin level 0.012 Testing in the emergency room revealed chest x-ray revealed patchy bilateral lung infiltrates, EKG revealed sinus rhythm with sinus arrhythmia Patient was admitted to medical floor for further evaluation and treatment Past medical history is significant for left above-knee amputation, severe peripheral arterial disease, advanced COPD, continued history of smoking On 05/30/2024 patient is alert and oriented x 3. Patient reports some impro vement with shortness of breath. Patient remains on IV antibiotics pulmonary and infectious disease services are following. Current vital signs temp 97.5, heart rate 98, respiratory rate 155/73 with a pulse ox of 93% on 4 L On 05/31/2024 patient was seen and examined on the medical floor he is alert and oriented x 3 in no apparent distress he is still complaining of cough and shortness of breath otherwise he denies any complaints there is no fever or chills no headache or dizziness no chest pain no nausea or vomiting no abdominal pain no diarrhea and no urinary symptoms On 06/01/2024 patient is alert and oriented x 3. Patient is still complaining of some shortness of breath and cough. Patient remains on IV steroids. Pulmonary and infectious disease services are following. Current vital signs temp 97.5, heart 63, respiratory rate 19, blood pressure 144/58 with a pulse ox of 95% on 4 L On 06/02/2024 patient is alert and oriented x 3. Patient having some improvement. Patient denies chest pain or shortness of breath. Patient denies nausea vomiting or diarrhea. Patient denies any urinary burning or frequency. Patient remains on DuoNeb breathing treatments, IV Rocephin. Pulmonary and infectious disease services following. Current vital signs temp 98.4, heart 74, respiratory rate 20, blood pressure 134/60 with a pulse ox of 100% on 4 L. Will consult nephrology services for hyponatremia and hyperkalemia On 06/03/2024 patient was seen and examined on the medical floor he is alert and oriented x 3 in no apparent distress there is no fever or chills no headache or dizziness no chest pain no shortness of breath no cough no nausea or vomiting no abdominal pain no diarrhea and no urinary symptoms patient has severe generalized weakness, plan is for transfer to rehab on Wednesday. Patient has severe hyperkalemia, which improved with current medications, will continue to monitor labs daily. On 06/04/2024 patient was seen and examined on the medical floor he is alert and oriented x 3 in no apparent distress there is no fever or chills no headache or dizziness no chest pain no shortness of breath no cough no nausea or vomiting no abdominal pain no diarrhea and no urinary symptoms, he is improving gradually possible transfer to rehab tomorrow Objective - Vital Signs Vital signs: Vital Signs Temp 97.7 F 06/04/24 07:06 Pulse 63 06/04/24 07:06 Resp 17 06/04/24 07:06 BP 147/69 06/04/24 07:06 Pulse Ox 99 06/04/24 07:06 FiO2 Intake & Output 06/03/24 06/04/24 06/04/24 18:59 06:59 18:59 Output Total 2200 1450 Balance -2200 -1450 Output: Urine 2200 1450 Other: Voiding Method Indwelling Catheter Indwelling Catheter # Bowel Movements 5 - Exam Baldev Joyce, is a 73-year-old male who presented to [facility] emergency room with a chief complaint of cough and worsening shortness of breath He was evaluated in the emergency room vital examination on presentation revealed a temperature of 98.9 pulse 77 respiration 20 blood pressure 156/73 pulse ox 92% on 4 L nasal cannula Laboratory data revealed a white blood count of 18.1 hemoglobin 11.9 platelet count 579 sodium 130 potassium 5.4 BUN 41 creatinine 0.69, influenza A and B RSV and COVID-19 PCR were all negative, troponin level 0.012 Testing in the emergency room revealed chest x-ray revealed patchy bilateral lung infiltrates, EKG revealed sinus rhythm with sinus arrhythmia Patient was admitted to medical floor for further evaluation and treatment Past medical history is significant for left above-knee amputation, severe peripheral arterial disease, advanced COPD, continued history of smoking - Labs CBC & Chem 7: 06/04/24 04:05 06/04/24 04:05 Labs: Abnormal Lab Results - Last 24 Hours (Table) 06/03/24 06/03/24 06/03/24 Range/Units 03:19 11:58 16:50 WBC (3.8-10.6) k/uL Hgb (13.0-17.5) gm/dL Hct (39.0-53.0) % MCHC (31.0-37.0) g/dL RDW (11.5-15.5) % Neutrophils # (1.3-7.7) k/uL Sodium 130 L (137-145) mmol/L Chloride 94 L (98-107) mmol/L Carbon Dioxide 31 H (22-30) mmol/L BUN 62 H (9-20) mg/dL Glucose 175 H (74-99) mg/dL POC Glucose (mg/dL) 163 H 312 H (70-110) mg/dL Calcium (8.4-10.2) mg/dL Total Protein (6.3-8.2) g/dL Albumin (3.5-5.0) g/dL 06/03/24 06/04/24 06/04/24 Range/Units 20:44 04:05 04:05 WBC 13.9 H (3.8-10.6) k/uL Hgb 11.6 L (13.0-17.5) gm/dL Hct 37.8 L (39.0-53.0) % MCHC 30.7 L (31.0-37.0) g/dL RDW 16.2 H (11.5-15.5) % Neutrophils # 11.8 H (1.3-7.7) k/uL Sodium 128 L (137-145) mmol/L Chloride 92 L (98-107) mmol/L Carbon Dioxide (22-30) mmol/L BUN 64 H (9-20) mg/dL Glucose 118 H (74-99) mg/dL POC Glucose (mg/dL) 263 H (70-110) mg/dL Calcium 8.2 L (8.4-10.2) mg/dL Total Protein 5.5 L (6.3-8.2) g/dL Albumin 2.4 L (3.5-5.0) g/dL Microbiology - Last 24 Hours (Table) 05/29/24 09:30 Blood Culture - Final Blood 05/29/24 10:00 Blood Culture - Final Blood Assessment and Plan Plan: Acute on chronic hypoxic respiratory failure Pneumonia Acute exacerbation of chronic obstructive pulmonary disease Underlying history of severe peripheral vascular disease with history of left above-knee amputation Continued history of tobacco abuse Underlying history of depression Underlying history of hypertension Underlying history of hyperlipidemia Previous history of coronary artery disease with history of angioplasty and stent placement Underlying history of anemia maintained on iron supplements Underlying history of degenerative disc disease maintained on narcotic for pain management At this time patient was seen and examined Medications reviewed and reordered He was started on IV antibiotic Levaquin in the emergency room will continue For DVT prophylaxis subcu Lovenox Pulmonary and infectious disease consultation requested Will follow closely Prognosis is guarded due to severity of illness and multiple comorbidities
--- NOTE | 2024-06-04 11:23 | P.PN ---
Subjective Patient is seen for follow-up for hyponatremia. Possible underlying SIADH Improved with diuresis. Saline has been discontinued along with diuretics. Urine sodium is 50 and urine osmolality elevated at 509. Serum sodium dropped to 128 today from 130 yesterday. No significant complaints Tolerating oral intake Objective - Vital Signs Vital signs: Vital Signs Temp 97.7 F 06/04/24 07:06 Pulse 63 06/04/24 07:06 Resp 17 06/04/24 07:06 BP 147/69 06/04/24 07:06 Pulse Ox 99 06/04/24 07:06 FiO2 Intake & Output 06/03/24 06/04/24 06/04/24 18:59 06:59 18:59 Output Total 2200 1450 Balance -2200 -1450 Output: Urine 2200 1450 Other: Voiding Method Indwelling Catheter Indwelling Catheter # Bowel Movements 5 - Exam Patient is awake, comfortable, no acute distress. Examination of the heart S1 and S2 Examination of the lungs bilateral breath sounds are heard Abdomen is soft nontender Examination of lower extremities shows no edema [employer] exam grossly intact - Labs CBC & Chem 7: 06/04/24 04:05 06/04/24 04:05 Labs: Abnormal Lab Results - Last 24 Hours (Table) 06/03/24 06/03/24 06/03/24 Range/Units 03:19 11:58 16:50 WBC (3.8-10.6) k/uL Hgb (13.0-17.5) gm/dL Hct (39.0-53.0) % MCHC (31.0-37.0) g/dL RDW (11.5-15.5) % Neutrophils # (1.3-7.7) k/uL Sodium 130 L (137-145) mmol/L Chloride 94 L (98-107) mmol/L Carbon Dioxide 31 H (22-30) mmol/L BUN 62 H (9-20) mg/dL Glucose 175 H (74-99) mg/dL POC Glucose (mg/dL) 163 H 312 H (70-110) mg/dL Calcium (8.4-10.2) mg/dL Total Protein (6.3-8.2) g/dL Albumin (3.5-5.0) g/dL 02/22/25 02/23/25 02/23/25 Range/Units 20:44 04:05 04:05 WBC 13.9 H (3.8-10.6) k/uL Hgb 11.6 L (13.0-17.5) gm/dL Hct 37.8 L (39.0-53.0) % MCHC 30.7 L (31.0-37.0) g/dL RDW 16.2 H (11.5-15.5) % Neutrophils # 11.8 H (1.3-7.7) k/uL Sodium 128 L (137-145) mmol/L Chloride 92 L (98-107) mmol/L Carbon Dioxide (22-30) mmol/L BUN 64 H (9-20) mg/dL Glucose 118 H (74-99) mg/dL POC Glucose (mg/dL) 263 H (70-110) mg/dL Calcium 8.2 L (8.4-10.2) mg/dL Total Protein 5.5 L (6.3-8.2) g/dL Albumin 2.4 L (3.5-5.0) g/dL Microbiology - Last 24 Hours (Table) 05/29/24 09:30 Blood Culture - Final Blood 05/29/24 10:00 Blood Culture - Final Blood Assessment and Plan Assessment: 1. Hyponatremia, euvolemic. Most likely underlying SIADH given the lung mass suspicious for lung cancer. Urine osmolality 509. Improved with diuresis. Currently off of Lasix and normal saline. 2. Acute hypoxic respiratory failure 3. Left upper lung mass suspicious for bronchogenic carcinoma 4. Acute exacerbation of COPD 5. Hyperkalemia associated with urine retention Plan: Continue with Russo catheter Continue off of normal saline. Lasix will also be discontinued. Add Samsca tomorrow if sodium not improved. High suspicion for underlying SIADH Encouraged increased oral intake particularly protein
[2024-06-04 11:29] LABS: Glucose,Whole Blood 170 mg/dL (70-110)
--- NOTE | 2024-06-04 13:46 | P.PN ---
Subjective Progress Note Date: 06/04/24 Principal diagnosis: Reason for follow-up is pneumonia Patient is a 73-year-old male with a past medical history significant for COPD hypertension hyperlipidemia MT osteoarthritis presenting to the hospital for evaluation of weakness patient did have elevated white count with a CT of the chest shows evidence of new bilateral lung masses concerning for possible malignancy and question of pneumonia. On today's evaluation that is 06/04/2024, Patient is afebrile patient is currently on 3 L nasal cannula oxygen and denies having any shortness of breath, the patient denies any chest pain and cough is decreased in intensity h, the patient denies any nausea vomiting did not have any abdominal pain and no diarrhea rather no bowel movement once a laxative. Patient white count is 13.9 creatinine 0.83 sputum with corynebacterium blood culture has been negative Objective - Vital Signs Vital signs: Vital Signs Temp 97.7 F 06/04/24 07:06 Pulse 74 06/04/24 12:02 Resp 17 06/04/24 07:06 BP 147/69 06/04/24 07:06 Pulse Ox 96 06/04/24 11:51 FiO2 Intake & Output 06/03/24 06/04/24 06/04/24 18:59 06:59 18:59 Output Total 2200 1450 1200 Balance -2200 -1450 -1200 Output: Urine 2200 1450 1200 Other: Voiding Method Indwelling Catheter Indwelling Catheter # Bowel Movements 5 - Exam GENERAL DESCRIPTION: An elderly male lying in bed in no distress RESPIRATORY SYSTEM: Unlabored breathing , decreased breath sounds at bases HEART: S1 S2 regular rate and rhythm , ABDOMEN: Soft , no tenderness EXTREMITIES: No edema feet - Labs CBC & Chem 7: 06/04/24 04:05 06/04/24 04:05 Labs: Abnormal Lab Results - Last 24 Hours (Table) 06/03/24 06/03/24 06/04/24 Range/Units 16:50 20:44 04:05 WBC (3.8-10.6) k/uL Hgb (13.0-17.5) gm/dL Hct (39.0-53.0) % MCHC (31.0-37.0) g/dL RDW (11.5-15.5) % Neutrophils # (1.3-7.7) k/uL Sodium 128 L (137-145) mmol/L Chloride 92 L (98-107) mmol/L BUN 64 H (9-20) mg/dL Glucose 118 H (74-99) mg/dL POC Glucose (mg/dL) 312 H 263 H (70-110) mg/dL Calcium 8.2 L (8.4-10.2) mg/dL Total Protein 5.5 L (6.3-8.2) g/dL Albumin 2.4 L (3.5-5.0) g/dL 06/04/24 06/04/24 Range/Units 04:05 11:27 WBC 13.9 H (3.8-10.6) k/uL Hgb 11.6 L (13.0-17.5) gm/dL Hct 37.8 L (39.0-53.0) % MCHC 30.7 L (31.0-37.0) g/dL RDW 16.2 H (11.5-15.5) % Neutrophils # 11.8 H (1.3-7.7) k/uL Sodium (137-145) mmol/L Chloride (98-107) mmol/L BUN (9-20) mg/dL Glucose (74-99) mg/dL POC Glucose (mg/dL) 170 H (70-110) mg/dL Calcium (8.4-10.2) mg/dL Total Protein (6.3-8.2) g/dL Albumin (3.5-5.0) g/dL Microbiology - Last 24 Hours (Table) 05/29/24 09:30 Blood Culture - Final Blood 05/29/24 10:00 Blood Culture - Final Blood Assessment and Plan (1) Pneumonia Current Visit: Yes Status: Acute Code(s): J18.9 - PNEUMONIA, UNSPECIFIED ORGANISM SNOMED Code(s): 301382885 (2) Leukocytosis Current Visit: No Status: Acute Code(s): D72.829 - ELEVATED WHITE BLOOD CELL COUNT, UNSPECIFIED SNOMED Code(s): 316893570 (3) Diarrhea Current Visit: Yes Status: Acute Code(s): R19.7 - DIARRHEA, UNSPECIFIED SNOMED Code(s): 52493010 Plan: 1patient presented to hospital with weakness which is likely multifactorial in this patient who did have significant history of COPD now with the elevated white count cough sputum production concerning for pneumonia although CT was also concerning for possible masses, pulmonary is following 2blood culture have been negative and sputum cultures currently growing corynebacterium stratum which is considered contaminant but can cause infection in a patient with compromise lung condition which this patient 3patient currently being treated with vancomycin pharmacy to dose, hopefully will transition to oral antibiotics on discharge Dictation was produced using [employer] dictation software. please excuse any grammatical, word or spelling errors. Time with Patient: Less than 30
--- NOTE | 2024-06-04 14:29 | P.PN ---
Subjective Progress Note Date: 06/04/24 Patient is a 73-year-old male with past medical history significant for hypertension, hyperlipidemia, CAD, previous UT with PCI/stent, peripheral vascular disease, prior left AKA, former tobacco smoker, COPD, and lung mass. Patient does follow in the pulmonary office with Dr. Flanagan. PET scan performed 08/12/2023 demonstrating a left upper lung medial mass measuring 3.1 x 2.4 cm with metabolic activity. Also, small focus of uptake within the dome of the liver. Patient was felt to be a poor candidate for lung biopsy. Directed to radiation oncology. Unfortunately, patient never followed up with this appointment. Patient was scheduled for repeat PET scan, however, he canceled. He states that he has been overwhelmed with personal issues. States his sister recently, he could not make it to the due to severe weakness. Presented to emergency department yesterday morning with a chief complaint of generalized severe weakness. He does have a left [id number] amputation. Was at home, could not transferred back from the bedside commode. Called EMS for transfer to the ED. Also, reporting acute on chronic shortness of breath and a increased cough with white sputum production. Denies any chest pain or hemoptysis. Denies any fevers or chills. Oral intake has been fair. Denies sick contacts. Chest x-ray showing bilateral lung infiltrates including left perihilar masslike consolidation, as well as, a right lower lobe infiltrate. CBC: WBC count 18.1, hemoglobin 11.9, platelets 5 supertight. CMP: Sodium 130, potassium 4.4, chloride 99, serum bicarb 24, BUN 41, creatinine 0.69, glucose 157. Lactic 0.8. LFTs not elevated. Troponin less than 0.012. Urinalysis unremarkable for infection. Viral screen negative for influenza, RSV, COVID. Patient currently sitting up in bed, has pulled himself to the side of the bed. Appears frail and weak. No observable respiratory distress. Current vital signs: Temperature 98 F, heart rate 76 bpm, blood pressure 141/67 mmHg, nontachypneic, SpO2 reading 97% on 4 L/min nasal cannula On 05/31/2024, the patient is being seen for a follow-up. On today's evaluation, the patient is still having some cough and congestion and some shortness of breath. No other new complaints otherwise for now. As stated earlier, the patient has advanced COPD and tumor progression as evident on the most recent CAT scan of the chest. Suspected to have a superimposed pneumonia. Based on that, the patient was given Rocephin and Levaquin and the patient is also on DuoNeb nebulized treatments [id number] and IV Solu-Medrol. The white cell count today is at 10.9 with a hemoglobin 10.6 and a platelet count of 489. BUN is 44 with a creatinine of 1.1. Potassium is at 5.9. Procalcitonin level is at 0.13. UA was negative. Calcium level is at 8.2. Viral screen was negative. Legionella urine antigen was negative. Sputum culture and blood cultures still pending for now. On 06/01/2024, patient is being seen for a follow-up. The patient is resting comfortably in bed. The patient is being treated for an acute CF exacerbation. There may be also a superinfection with a community-acquired pneumonia based on a CAT scan of the chest that was done on 05/30/2024. However, he is enlargement and new lower lung masses and large lymphadenopathy within the mediastinum which is suggestive of progressive disease and he is aware of that. His lung cancer is in progression. The patient remains on IV Rocephin and Levaquin. No new complaints for now. No hemoptysis. No pleurisy. Oxygenation remained stable and the patient is currently on 4 L of O2 nasal cannula with a pulse ox of 93%. White cell count of 13 with a hemoglobin of 10.8. Potassium level is down to 5.8. BUN is 55 with a creatinine 1.1. Sodium is at 124. Blood sugar was noted to be quite elevated at 433. Based on that, based on underlying hyperkalemia, I suggested to give the patient 2 doses of sodium bicarb 50 mEq in addition to starting the patient on insulin. I gave him 10 units and I will start him on Levemir insulin 20 units daily and NovoLog sliding scale coverage. Blood sugars will be monitored. Meanwhile, his steroids will be tapered and the patient be taken after IV Solu-Medrol which will also help with his blood sugar control. Rest of the medications have been all resumed. The sputum sample was positive for corynebacterium. On 06/02/2024, the patient is being seen for a follow-up. The patient is calm and comfortable. No significant respiratory distress. Noted he was having issues with hyperglycemia yesterday. I start the patient on Lantus insulin 20 units daily and NovoLog 5 units with meal insulin scale coverage. Sugars are under better control. Potassium level has also normalized. He will be started back on prednisone burst taper regarding history of exacerbation. The white cell count of 13.6 with a hemoglobin 11.2 and a platelet count of 490. Sodium is at 128, potassium is at 5.5, BUN 60 with a creatinine of 1.1. Blood sugar control is improved. LFTs are normal. He remains on oxygen at 3 L with a pulse ox of 94%. No other significant events overnight. On 06/03/2024, the patient is feeling less short of breath. Less bronchospastic and wheezy. Start back on oral prednisone without any major rise in the blood sugars. Most recent blood sugars at 163. Sodium is at 130, BUN is 62 with a creatinine of 0.8. The patient is currently on DuoNeb [facility]. The patient is on Symbicort as maintenance 2 puffs twice a day. The patient is also on prednisone 40 mg p.o. daily. The patient is receiving Lantus insulin 20 units daily and NovoLog 5 units with meals and sliding scale coverage. Rest of medications remain unchanged. On 06/04/2024, patient is being seen for a follow-up. The patient is resting comfortably in bed. Trying to improve his oral intake. Denies having any new complaints. Sputum sample was positive for Corynebacterium and the patient was given vancomycin by ID. Remains on Symbicort and Spiriva and the patient is currently on a prednisone burst taper. He is at a dose of 40 mg p.o. daily. Rest of medication remain unchanged. White cell count of 13.9 with a hemoglobin 11.6 and a platelet count of 441. BUN 63 creatinine 0.8 and sodium was 138 and a potassium level was at 4.4. No other significant events overnight. Objective - Vital Signs Vital signs: Vital Signs Temp 97.7 F 06/04/24 07:06 Pulse 63 06/04/24 07:06 Resp 17 06/04/24 07:06 BP 147/69 06/04/24 07:06 Pulse Ox 99 02/23/25 07:06 FiO2 Intake & Output 06/03/24 06/04/24 06/04/24 18:59 06:59 18:59 Output Total 2200 1450 Balance -2200 -1450 Output: Urine 2200 1450 Other: Voiding Method Indwelling Catheter Indwelling Catheter # Bowel Movements 5 - Exam GENERAL EXAM: Alert, 72-year-old white female, cachectic disheveled, overall comfortable in no apparent distress. HEAD: Normocephalic and atraumatic EYES: Normal reaction of pupils, equal size. NOSE: Clear with pink turbinates. Oropharynx/THROAT: Poor dentition. No erythema or exudates. NECK: No masses, no JVD. No palpable lymphadenopathy CHEST: No chest wall deformity. LUNGS: Equal air entry with diffuse expiratory wheezes and rhonchi. On 4 L/min nasal cannula. No conversational dyspnea or accessory muscle use while at rest.. CVS: S1 and S2 normal with no audible murmur, irregular rhythm. No other extra heart sounds ABDOMEN: No hepatosplenomegaly, active bowel sounds, no guarding or rigidity. SPINE: No scoliosis or deformity SKIN: No rashes CENTRAL NERVOUS SYSTEM: No focal deficits, tone is normal in all 4 extremities. EXTREMITIES: Prior left AKA. There is no peripheral edema, clubbing, or cyanosis. Peripheral pulses are intact. - Labs CBC & Chem 7: 06/04/24 04:05 06/04/24 04:05 Labs: Abnormal Lab Results - Last 24 Hours (Table) 06/03/24 06/03/24 06/03/24 Range/Units 03:19 11:58 16:50 WBC (3.8-10.6) k/uL Hgb (13.0-17.5) gm/dL Hct (39.0-53.0) % MCHC (31.0-37.0) g/dL RDW (11.5-15.5) % Neutrophils # (1.3-7.7) k/uL Sodium 130 L (137-145) mmol/L Chloride 94 L (98-107) mmol/L Carbon Dioxide 31 H (22-30) mmol/L BUN 62 H (9-20) mg/dL Glucose 175 H (74-99) mg/dL POC Glucose (mg/dL) 163 H 312 H (70-110) mg/dL Calcium (8.4-10.2) mg/dL Total Protein (6.3-8.2) g/dL Albumin (3.5-5.0) g/dL 06/03/24 06/04/24 06/04/24 Range/Units 20:44 04:05 04:05 WBC 13.9 H (3.8-10.6) k/uL Hgb 11.6 L (13.0-17.5) gm/dL Hct 37.8 L (39.0-53.0) % MCHC 30.7 L (31.0-37.0) g/dL RDW 16.2 H (11.5-15.5) % Neutrophils # 11.8 H (1.3-7.7) k/uL Sodium 128 L (137-145) mmol/L Chloride 92 L (98-107) mmol/L Carbon Dioxide (22-30) mmol/L BUN 64 H (9-20) mg/dL Glucose 118 H (74-99) mg/dL POC Glucose (mg/dL) 263 H (70-110) mg/dL Calcium 8.2 L (8.4-10.2) mg/dL Total Protein 5.5 L (6.3-8.2) g/dL Albumin 2.4 L (3.5-5.0) g/dL 06/04/24 Range/Units 11:27 WBC (3.8-10.6) k/uL Hgb (13.0-17.5) gm/dL Hct (39.0-53.0) % MCHC (31.0-37.0) g/dL RDW (11.5-15.5) % Neutrophils # (1.3-7.7) k/uL Sodium (137-145) mmol/L Chloride (98-107) mmol/L Carbon Dioxide (22-30) mmol/L BUN (9-20) mg/dL Glucose (74-99) mg/dL POC Glucose (mg/dL) 170 H (70-110) mg/dL Calcium (8.4-10.2) mg/dL Total Protein (6.3-8.2) g/dL Albumin (3.5-5.0) g/dL Microbiology - Last 24 Hours (Table) 05/29/24 09:30 Blood Culture - Final Blood 05/29/24 10:00 Blood Culture - Final Blood Assessment and Plan Assessment: Acute COPD exacerbation, Chest x-ray showing bilateral lung infiltrates including left perihilar masslike consolidation, as well as, a right lower lobe infiltrate. Findings concerning for disease progression with possible superimposed community-acquired pneumonia. CAT scan of the chest that was done on 05/30/2024. There are new lower lung masses with enlarging hilar lymphadenopathy and progression of his neoplasm need to be considered. There is also background extensive emphysematous changes. A superimposed pneumonia cannot be completely ruled out as the patient has a consolidation in the posterior left midlung area which is essentially new. This could be also and area of malignancy. In any rate, the patient was started on broad-spectrum antibiotics. The patient was receiving Rocephin and vancomycin and the patient was switched to vancomycin by infectious disease based on presence of corynebacterium in sputum. Acute leukocytosis, slightly improved and the white cell count is down to 13 Left upper lung mass, suspicious for bronchogenic carcinoma, most recent PET scan showing left upper lung medial mass measuring 3.1 x 2.4 cm, patient felt to be a poor surgical candidate and was directed to radiation oncology. He never followed up with this appointment. Also, was scheduled for a repeat PET scan to be done outpatient; however, patient canceled this appointment Acute on chronic hypoxemic respiratory failure, currently on 4 L/min nasal cannula Very severe chronic obstructive pulmonary disease, with an FEV1 24% of predicted Hyperglycemia, likely steroid-induced, improved, currently on Lantus Hyperkalemia History of coronary artery disease, with previous PCI/stent History of hyperlipidemia Hypertension History of peripheral vascular disease History of prior left AKA Chronic anemia, hemoglobin stable History of GERD with esophagitis History of diverticulosis Former tobacco dependence Severe protein calorie malnutrition with a BMI of 13.7 kg/m Marijuana smoker Plan: Clinically stable will continue same treatment for now No new complaints Titrate oxygen flow to maintain saturation above 90% Continue empiric antibiotics, currently on vancomycin Sputum cultures positive for corynebacterium Obtain Urine Legionella antigen was negative Continue bronchodilators, continue Symbicort inhailer, continue Spiriva Respimat, Prednisone 40 mg p.o. daily Monitor blood sugars Continue Levemir insulin 20 units daily and NovoLog 5 units with meals and sliding scale coverage and monitor blood sugars. Prognosis obviously poor based on above-mentioned findings. Will continue to follow. Time with Patient: Greater than 30
[2024-06-04 16:32] LABS: Glucose,Whole Blood 329 mg/dL (70-110)
[2024-06-04 20:40] LABS: Glucose,Whole Blood 386 mg/dL (70-110)
[2024-06-05 04:40] LABS: African American GFR (CKD) >90 (>60 ml/min/1.73 sqM); Non-African American GFR(CKD) 88 (>60 ml/min/1.73 sqM)
[2024-06-05 06:16] LABS: Glucose,Whole Blood 88 mg/dL (70-110)
[2024-06-05] MEDS ORDERED: FUROSEMIDE 10 MG/ML 2 ML VIAL IV SCH (09:00)
--- NOTE | 2024-06-05 10:15 | P.PN ---
Subjective Patient is seen in follow-up for hyponatremia. Sodium level 128 yesterday. Has Russo catheter for urinary retention. Oral intake fair. No vomiting or diarrhea. Vital signs are stable. General: No acute distress. HEENT: Head exam is unremarkable. On nasal cannula. LUNGS: No audible rhonchi or wheezes. HEART: Rate and Rhythm are regular. ABDOMEN: Nontender. EXTREMITITES: No edema. Objective - Vital Signs Vital signs: Vital Signs Temp 98.1 F 06/05/24 07:35 Pulse 72 06/05/24 07:35 Resp 18 06/05/24 07:35 BP 164/62 06/05/24 07:35 Pulse Ox 97 06/05/24 07:35 FiO2 Intake & Output 06/04/24 06/05/24 06/05/24 18:59 06:59 18:59 Output Total 1625 500 Balance -1625 -500 Output: Urine 1625 500 Uretheral (Russo) 500 Other: Voiding Method Indwelling Catheter Indwelling Catheter - Labs CBC & Chem 7: 06/04/24 04:05 06/05/24 03:52 Labs: Abnormal Lab Results - Last 24 Hours (Table) 06/04/24 06/04/24 06/04/24 Range/Units 11:27 16:31 20:39 POC Glucose (mg/dL) 170 H 329 H 386 H (70-110) mg/dL Assessment and Plan Plan: Assessment: 1. Hyponatremia. Appears euvolemic. Concern for SIADH from underlying malignancy. Urine osmolality 509 and urine sodium 50. 2. Acute hypoxic respiratory failure. 3. Lung masses concerning for malignancy. 4. Hyperkalemia secondary to urinary retention. Improved. 5. Urinary retention. Has Russo catheter. On Flomax. Plan: Encouraged oral intake. Hep-Lock IV fluids. Add 1500 cc fluid restriction. Morning labs pending. Will give Samsca if sodium level not better. Check TSH.
[2024-06-05 10:29] LABS: Potassium 4.5 mmol/L (3.5-5.1)
[2024-06-05] MEDS: VANCOMYCIN TROUGH DUE 1 EACH MISC MISCELLANE ONE (11:21)
[2024-06-05 11:47] LABS: Glucose,Whole Blood 513 mg/dL (70-110)
[2024-06-05 11:48] LABS: Glucose,Whole Blood 133 mg/dL (70-110)
--- NOTE | 2024-06-05 12:40 | P.PN ---
Subjective Progress Note Date: 06/05/24 Principal diagnosis: Reason for follow-up is pneumonia Patient is a 73-year-old male with a past medical history significant for COPD hypertension hyperlipidemia NH osteoarthritis presenting to the hospital for evaluation of weakness patient did have elevated white count with a CT of the chest shows evidence of new bilateral lung masses concerning for possible malignancy and question of pneumonia. On today's evaluation that is 06/05/2024, patient has been afebrile, patient is breathing comfortably and is currently on 3 L, oxygen patient denies having any worsening cough no chest pain, patient denies nausea vomiting or diarrhea and no abdominal pain. Patient did have a creatinine 0.7 and Vanco trough is 15.5 blood culture has been negative Objective - Vital Signs Vital signs: Vital Signs Temp 98.1 F 06/05/24 07:35 Pulse 72 06/05/24 07:35 Resp 18 06/05/24 07:35 BP 164/62 06/05/24 07:35 Pulse Ox 97 06/05/24 07:35 FiO2 Intake & Output 06/04/24 06/05/24 06/05/24 18:59 06:59 18:59 Output Total 1625 500 Balance -1625 -500 Output: Urine 1625 500 Uretheral (Russo) 500 Other: Voiding Method Indwelling Catheter Indwelling Catheter - Exam GENERAL DESCRIPTION: An elderly male lying in bed in no distress RESPIRATORY SYSTEM: Unlabored breathing , decreased breath sounds at bases HEART: S1 S2 regular rate and rhythm , ABDOMEN: Soft , no tenderness EXTREMITIES: No edema feet - Labs CBC & Chem 7: 06/04/24 04:05 06/05/24 03:52 Labs: Abnormal Lab Results - Last 24 Hours (Table) 06/04/24 06/04/24 06/05/24 Range/Units 16:31 20:39 03:52 Sodium 132 L (137-145) mmol/L Chloride 96 L (98-107) mmol/L Carbon Dioxide 33 H (22-30) mmol/L POC Glucose (mg/dL) 329 H 386 H (70-110) mg/dL 06/05/24 06/05/24 Range/Units 11:46 11:47 Sodium (137-145) mmol/L Chloride (98-107) mmol/L Carbon Dioxide (22-30) mmol/L POC Glucose (mg/dL) 513 H* 133 H (70-110) mg/dL Assessment and Plan (1) Pneumonia Current Visit: Yes Status: Acute Code(s): J18.9 - PNEUMONIA, UNSPECIFIED ORGANISM SNOMED Code(s): 241404533 (2) Leukocytosis Current Visit: No Status: Acute Code(s): D72.829 - ELEVATED WHITE BLOOD CELL COUNT, UNSPECIFIED SNOMED Code(s): 413002579 (3) Diarrhea Current Visit: Yes Status: Acute Code(s): R19.7 - DIARRHEA, UNSPECIFIED SNOMED Code(s): 11113407 Plan: 1patient presented to hospital with weakness which is likely multifactorial in this patient who did have significant history of COPD now with the elevated white count cough sputum production concerning for pneumonia although CT was also concerning for possible masses, pulmonary is following 2blood culture have been negative and sputum cultures currently growing corynebacterium stratum which is considered contaminant but can cause infection in a patient with compromise lung condition which this patient 3patient did have some clinical pulm to continue with vancomycin pharmacy to dose while inpatient will transition to oral doxycycline 100 mg twice daily for 10 days on discharge Dictation was produced using [employer] dictation software. please excuse any grammatical, word or spelling errors. Time with Patient: Less than 30
--- NOTE | 2024-06-05 14:27 | P.PN ---
Subjective Progress Note Date: 06/05/24 Patient is a 73-year-old male with past medical history significant for hypertension, hyperlipidemia, CAD, previous DC with PCI/stent, peripheral vascular disease, prior left AKA, former tobacco smoker, COPD, and lung mass. Patient does follow in the pulmonary office with Dr. Flanagan. PET scan performed 08/12/2023 demonstrating a left upper lung medial mass measuring 3.1 x 2.4 cm with metabolic activity. Also, small focus of uptake within the dome of the liver. Patient was felt to be a poor candidate for lung biopsy. Directed to radiation oncology. Unfortunately, patient never followed up with this appointment. Patient was scheduled for repeat PET scan, however, he canceled. He states that he has been overwhelmed with personal issues. States his sister recently, he could not make it to the due to severe weakness. Presented to emergency department yesterday morning with a chief complaint of generalized severe weakness. He does have a left [id number] amputation. Was at home, could not transferred back from the bedside commode. Called EMS for transfer to the ED. Also, reporting acute on chronic shortness of breath and a increased cough with white sputum production. Denies any chest pain or hemoptysis. Denies any fevers or chills. Oral intake has been fair. Denies sick contacts. Chest x-ray showing bilateral lung infiltrates including left perihilar masslike consolidation, as well as, a right lower lobe infiltrate. CBC: WBC count 18.1, hemoglobin 11.9, platelets 5 supertight. CMP: Sodium 130, potassium 4.4, chloride 99, serum bicarb 24, BUN 41, creatinine 0.69, glucose 157. Lactic 0.8. LFTs not elevated. Troponin less than 0.012. Urinalysis unremarkable for infection. Viral screen negative for influenza, RSV, COVID. Patient currently sitting up in bed, has pulled himself to the side of the bed. Appears frail and weak. No observable respiratory distress. Current vital signs: Temperature 98 F, heart rate 76 bpm, blood pressure 141/67 mmHg, nontachypneic, SpO2 reading 97% on 4 L/min nasal cannula On 05/31/2024, the patient is being seen for a follow-up. On today's evaluation, the patient is still having some cough and congestion and some shortness of breath. No other new complaints otherwise for now. As stated earlier, the patient has advanced COPD and tumor progression as evident on the most recent CAT scan of the chest. Suspected to have a superimposed pneumonia. Based on that, the patient was given Rocephin and Levaquin and the patient is also on DuoNeb nebulized treatments [id number] and IV Solu-Medrol. The white cell count today is at 10.9 with a hemoglobin 10.6 and a platelet count of 489. BUN is 44 with a creatinine of 1.1. Potassium is at 5.9. Procalcitonin level is at 0.13. UA was negative. Calcium level is at 8.2. Viral screen was negative. Legionella urine antigen was negative. Sputum culture and blood cultures still pending for now. On 06/01/2024, patient is being seen for a follow-up. The patient is resting comfortably in bed. The patient is being treated for an acute CF exacerbation. There may be also a superinfection with a community-acquired pneumonia based on a CAT scan of the chest that was done on 05/30/2024. However, he is enlargement and new lower lung masses and large lymphadenopathy within the mediastinum which is suggestive of progressive disease and he is aware of that. His lung cancer is in progression. The patient remains on IV Rocephin and Levaquin. No new complaints for now. No hemoptysis. No pleurisy. Oxygenation remained stable and the patient is currently on 4 L of O2 nasal cannula with a pulse ox of 93%. White cell count of 13 with a hemoglobin of 10.8. Potassium level is down to 5.8. BUN is 55 with a creatinine 1.1. Sodium is at 124. Blood sugar was noted to be quite elevated at 433. Based on that, based on underlying hyperkalemia, I suggested to give the patient 2 doses of sodium bicarb 50 mEq in addition to starting the patient on insulin. I gave him 10 units and I will start him on Levemir insulin 20 units daily and NovoLog sliding scale coverage. Blood sugars will be monitored. Meanwhile, his steroids will be tapered and the patient be taken after IV Solu-Medrol which will also help with his blood sugar control. Rest of the medications have been all resumed. The sputum sample was positive for corynebacterium. On 06/02/2024, the patient is being seen for a follow-up. The patient is calm and comfortable. No significant respiratory distress. Noted he was having issues with hyperglycemia yesterday. I start the patient on Lantus insulin 20 units daily and NovoLog 5 units with meal insulin scale coverage. Sugars are under better control. Potassium level has also normalized. He will be started back on prednisone burst taper regarding history of exacerbation. The white cell count of 13.6 with a hemoglobin 11.2 and a platelet count of 490. Sodium is at 128, potassium is at 5.5, BUN 60 with a creatinine of 1.1. Blood sugar control is improved. LFTs are normal. He remains on oxygen at 3 L with a pulse ox of 94%. No other significant events overnight. On 06/03/2024, the patient is feeling less short of breath. Less bronchospastic and wheezy. Start back on oral prednisone without any major rise in the blood sugars. Most recent blood sugars at 163. Sodium is at 130, BUN is 62 with a creatinine of 0.8. The patient is currently on DuoNeb [facility]. The patient is on Symbicort as maintenance 2 puffs twice a day. The patient is also on prednisone 40 mg p.o. daily. The patient is receiving Lantus insulin 20 units daily and NovoLog 5 units with meals and sliding scale coverage. Rest of medications remain unchanged. On 06/04/2024, patient is being seen for a follow-up. The patient is resting comfortably in bed. Trying to improve his oral intake. Denies having any new complaints. Sputum sample was positive for Corynebacterium and the patient was given vancomycin by ID. Remains on Symbicort and Spiriva and the patient is currently on a prednisone burst taper. He is at a dose of 40 mg p.o. daily. Rest of medication remain unchanged. White cell count of 13.9 with a hemoglobin 11.6 and a platelet count of 441. BUN 63 creatinine 0.8 and sodium was 138 and a potassium level was at 4.4. No other significant events overnight. The patient is seen today June 05, 2024 in follow-up on the regular medical floor. He is currently sitting up in bed. Awake and alert in no acute distress. He remains quite weak and debilitated. Maintaining O2 saturations in the mid 90s on 3 L/min per nasal cannula. He is afebrile. Hemodynamically stable. Sputum culture revealed corynebacterium stratum group. Sodium 132. Potassium 4.5. Bicarb 33. Creatinine 0.79. Glucose 133. He remains on DuoNeb inhalations, Symbicort, prednisone taper. Lovenox for DVT prophylaxis. He remains on vancomycin per ID service. Objective - Vital Signs Vital signs: Vital Signs Temp 98.1 F 06/05/24 07:35 Pulse 77 06/05/24 13:25 Resp 18 06/05/24 13:25 BP 164/62 06/05/24 07:35 Pulse Ox 97 06/05/24 07:35 FiO2 Intake & Output 06/04/24 06/05/24 06/05/24 18:59 06:59 18:59 Output Total 1625 500 Balance -1625 -500 Output: Urine 1625 500 Uretheral (Russo) 500 Other: Voiding Method Indwelling Catheter Indwelling Catheter Indwelling Catheter - Exam GENERAL EXAM: Alert, 73-year-old male, cachectic, sitting up in bed, on 3 L nasal cannula, comfortable in no apparent distress. HEAD: Normocephalic and atraumatic EYES: Normal reaction of pupils, equal size. NOSE: Clear with pink turbinates. Oropharynx/THROAT: Poor dentition. No erythema or exudates. NECK: No masses, no JVD. No palpable lymphadenopathy CHEST: No chest wall deformity. LUNGS: Equal air entry with expiratory wheezes and rhonchi. No conversational dyspnea or accessory muscle use while at rest.. CVS: S1 and S2 normal with no audible murmur, irregular rhythm. No other extra heart sounds ABDOMEN: No hepatosplenomegaly, active bowel sounds, no guarding or rigidity. SPINE: No scoliosis or deformity SKIN: No rashes CENTRAL NERVOUS SYSTEM: No focal deficits, tone is normal in all 4 extremities. EXTREMITIES: Prior left AKA. There is no peripheral edema, clubbing, or cyanosis. Peripheral pulses are intact. - Labs CBC & Chem 7: 06/04/24 04:05 06/05/24 03:52 Labs: Abnormal Lab Results - Last 24 Hours (Table) 06/04/24 06/04/24 06/05/24 Range/Units 16:31 20:39 03:52 Sodium 132 L (137-145) mmol/L Chloride 96 L (98-107) mmol/L Carbon Dioxide 33 H (22-30) mmol/L POC Glucose (mg/dL) 329 H 386 H (70-110) mg/dL 06/05/24 06/05/24 Range/Units 11:46 11:47 Sodium (137-145) mmol/L Chloride (98-107) mmol/L Carbon Dioxide (22-30) mmol/L POC Glucose (mg/dL) 513 H* 133 H (70-110) mg/dL Assessment and Plan Assessment: Acute COPD exacerbation, Chest x-ray showing bilateral lung infiltrates including left perihilar masslike consolidation, as well as, a right lower lobe infiltrate. Findings concerning for disease progression with possible superimposed community-acquired pneumonia. CAT scan of the chest that was done on 05/30/2024. There are new lower lung masses with enlarging hilar lymphadenopathy and progression of his neoplasm need to be considered. There is also background extensive emphysematous changes. A superimposed pneumonia cannot be completely ruled out as the patient has a consolidation in the posterior left midlung area which is essentially new. This could be also and area of malignancy. In any rate, the patient was started on broad-spectrum antibiotics. The patient was receiving Rocephin and vancomycin and was switched to vancomycin by infectious disease based on presence of corynebacterium in sputum. Acute leukocytosis, slightly improved and the white cell count is down to 13.9 Left upper lung mass, suspicious for bronchogenic carcinoma, most recent PET scan showing left upper lung medial mass measuring 3.1 x 2.4 cm, patient felt to be a poor surgical candidate and was directed to radiation oncology. He never followed up with this appointment. Also, was scheduled for a repeat PET scan to be done outpatient; however, patient canceled this appointment Acute on chronic hypoxemic respiratory failure, currently on 4 L/min nasal cannula Very severe chronic obstructive pulmonary disease, with an FEV1 24% of predicted Hyperglycemia, likely steroid-induced, improved, currently on Lantus Hyperkalemia History of coronary artery disease, with previous PCI/stent History of hyperlipidemia Hypertension History of peripheral vascular disease History of prior left AKA Chronic anemia, hemoglobin stable History of GERD with esophagitis History of diverticulosis Former tobacco dependence Severe protein calorie malnutrition with a BMI of 13.7 kg/m Marijuana smoker Plan: The patient was seen and evaluated Labs and medications reviewed Currently stable on 3 L nasal cannula Continue bronchodilators, steroids Antibiotics per ID service Educated regarding the importance of outpatient follow-up Plan is for [facility] discharge I have personally seen and examined the patient, performed the documentation and the assessment and plan as written. Number of minutes spent on the visit: 10 Dictation was produced using ai[employer] dictation software. Please excuse any grammatical, word or spelling errors.
[2024-06-05 16:37] LABS: Glucose,Whole Blood 212 mg/dL (70-110)
[2024-06-05 20:14] LABS: Glucose,Whole Blood 201 mg/dL (70-110)
[2024-06-06 04:28] LABS: Anisocytosis Slight; Basophils % (A) 0 %; Eosinophils # (A) 0.1 k/uL (0-0.7); Eosinophils % (A) 1 %; HGB 10.2 gm/dL (13.0-17.5); Hypochromasia Marked; Lymphocytes # (A) 0.7 k/uL (1.0-4.8); Lymphocytes % (A) 7 %; MCH 24.8 pg (25.0-35.0); MCHC 29.1 g/dL (31.0-37.0); MCV 85.2 fL (80.0-100.0); Monocytes # (A) 0.5 k/uL (0-1.0); Monocytes % (A) 5 %; Neutrophils # (A) 9.2 k/uL (1.3-7.7); Neutrophils % (A) 86 %; Platelet Count 464 k/uL (150-450); RBC 4.11 m/uL (4.30-5.90); RDW 16.1 % (11.5-15.5); WBC 10.7 k/uL (3.8-10.6)
[2024-06-06 06:14] LABS: Glucose,Whole Blood 63 mg/dL (70-110)
--- NOTE | 2024-06-06 06:40 | P.PN ---
Subjective Progress Note Date: 06/05/24 Baldev Joyce, is a 73-year-old male who presented to [facility] emergency room with a chief complaint of cough and worsening shortness of breath He was evaluated in the emergency room vital examination on presentation revealed a temperature of 98.9 pulse 77 respiration 20 blood pressure 156/73 pulse ox 92% on 4 L nasal cannula Laboratory data revealed a white blood count of 18.1 hemoglobin 11.9 platelet count 579 sodium 130 potassium 5.4 BUN 41 creatinine 0.69, influenza A and B RSV and COVID-19 PCR were all negative, troponin level 0.012 Testing in the emergency room revealed chest x-ray revealed patchy bilateral lung infiltrates, EKG revealed sinus rhythm with sinus arrhythmia Patient was admitted to medical floor for further evaluation and treatment Past medical history is significant for left above-knee amputation, severe peripheral arterial disease, advanced COPD, continued history of smoking On 05/30/2024 patient is alert and oriented x 3. Patient reports some impro vement with shortness of breath. Patient remains on IV antibiotics pulmonary and infectious disease services are following. Current vital signs temp 97.5, heart rate 98, respiratory rate 155/73 with a pulse ox of 93% on 4 L On 05/31/2024 patient was seen and examined on the medical floor he is alert and oriented x 3 in no apparent distress he is still complaining of cough and shortness of breath otherwise he denies any complaints there is no fever or chills no headache or dizziness no chest pain no nausea or vomiting no abdominal pain no diarrhea and no urinary symptoms On 06/01/2024 patient is alert and oriented x 3. Patient is still complaining of some shortness of breath and cough. Patient remains on IV steroids. Pulmonary and infectious disease services are following. Current vital signs temp 97.5, heart 63, respiratory rate 19, blood pressure 144/58 with a pulse ox of 95% on 4 L On 06/02/2024 patient is alert and oriented x 3. Patient having some improvement. Patient denies chest pain or shortness of breath. Patient denies nausea vomiting or diarrhea. Patient denies any urinary burning or frequency. Patient remains on DuoNeb breathing treatments, IV Rocephin. Pulmonary and infectious disease services following. Current vital signs temp 98.4, heart 74, respiratory rate 20, blood pressure 134/60 with a pulse ox of 100% on 4 L. Will consult nephrology services for hyponatremia and hyperkalemia On 06/03/2024 patient was seen and examined on the medical floor he is alert and oriented x 3 in no apparent distress there is no fever or chills no headache or dizziness no chest pain no shortness of breath no cough no nausea or vomiting no abdominal pain no diarrhea and no urinary symptoms patient has severe generalized weakness, plan is for transfer to rehab on Wednesday. Patient has severe hyperkalemia, which improved with current medications, will continue to monitor labs daily. On 06/04/2024 patient was seen and examined on the medical floor he is alert and oriented x 3 in no apparent distress there is no fever or chills no headache or dizziness no chest pain no shortness of breath no cough no nausea or vomiting no abdominal pain no diarrhea and no urinary symptoms, he is improving gradually possible transfer to rehab tomorrow On 06/05/2024 patient was seen and examined on the medical floor he is alert and oriented x 3 in no apparent distress there is no fever or chills no headache or dizziness no chest pain no shortness of breath no cough no nausea or vomiting no abdominal pain no diarrhea and no urinary symptoms patient has severe generalized weakness, plan is for transfer to rehab. Patient has severe hyperkalemia, which improved with current medications, will continue to monitor labs daily. Objective - Vital Signs Vital signs: Vital Signs Temp 98.1 F 06/05/24 07:35 Pulse 77 06/05/24 17:07 Resp 18 06/05/24 17:07 BP 164/62 06/05/24 07:35 Pulse Ox 97 06/05/24 07:35 FiO2 Intake & Output 06/04/24 06/05/24 06/05/24 18:59 06:59 18:59 Output Total 1625 500 Balance -1625 -500 Output: Urine 1625 500 Uretheral (Russo) 500 Other: Voiding Method Indwelling Catheter Indwelling Catheter Indwelling Catheter - Exam Baldev Joyce, is a 73-year-old male who presented to [facility] emergency room with a chief complaint of cough and worsening shortness of breath He was evaluated in the emergency room vital examination on presentation revealed a temperature of 98.9 pulse 77 respiration 20 blood pressure 156/73 pulse ox 92% on 4 L nasal cannula Laboratory data revealed a white blood count of 18.1 hemoglobin 11.9 platelet count 579 sodium 130 potassium 5.4 BUN 41 creatinine 0.69, influenza A and B RSV and COVID-19 PCR were all negative, troponin level 0.012 Testing in the emergency room revealed chest x-ray revealed patchy bilateral lung infiltrates, EKG revealed sinus rhythm with sinus arrhythmia Patient was admitted to medical floor for further evaluation and treatment Past medical history is significant for left above-knee amputation, severe peripheral arterial disease, advanced COPD, continued history of smoking - Labs CBC & Chem 7: 06/06/24 02:52 06/05/24 03:52 Labs: Abnormal Lab Results - Last 24 Hours (Table) 06/04/24 06/05/24 06/05/24 Range/Units 20:39 03:52 11:46 Sodium 132 L (137-145) mmol/L Chloride 96 L (98-107) mmol/L Carbon Dioxide 33 H (22-30) mmol/L POC Glucose (mg/dL) 386 H 513 H* (70-110) mg/dL 06/05/24 06/05/24 Range/Units 11:47 16:36 Sodium (137-145) mmol/L Chloride (98-107) mmol/L Carbon Dioxide (22-30) mmol/L POC Glucose (mg/dL) 133 H 212 H (70-110) mg/dL Assessment and Plan Plan: Acute on chronic hypoxic respiratory failure Pneumonia Acute exacerbation of chronic obstructive pulmonary disease Underlying history of severe peripheral vascular disease with history of left above-knee amputation Continued history of tobacco abuse Underlying history of depression Underlying history of hypertension Underlying history of hyperlipidemia Previous history of coronary artery disease with history of angioplasty and stent placement Underlying history of anemia maintained on iron supplements Underlying history of degenerative disc disease maintained on narcotic for pain management At this time patient was seen and examined Medications reviewed and reordered He was started on IV antibiotic Levaquin in the emergency room will continue For DVT prophylaxis subcu Lovenox Pulmonary and infectious disease consultation requested Will follow closely Prognosis is guarded due to severity of illness and multiple comorbidities
[2024-06-06 06:59] LABS: Glucose,Whole Blood 117 mg/dL (70-110)
[2024-06-06 09:01] LABS: BUN/Creat Ratio 64.86 Ratio (12.00-20.00); Blood Urea Nitrogen 45.4 mg/dL (9.0-27.0); Glucose 117 mg/dL (70-110)
[2024-06-06 09:02] LABS: ALT 26 U/L (10-49); AST 20 U/L (14-35); Albumin 2.6 g/dL (3.8-4.9); Albumin/Globulin Ratio 1.04 Ratio (1.60-3.17); Alkaline Phosphatase 63 U/L (41-126); Calcium 8.1 mg/dL (8.7-10.3); Carbon Dioxide 31.4 mmol/L (21.6-31.8); Chloride 100 mmol/L (96-109); Globulin 2.5 g/dL (1.6-3.3); Potassium 4.9 mmol/L (3.5-5.5); Sodium 138 mmol/L (135-145); Total Bilirubin 0.2 mg/dL (0.3-1.2); Total Protein 5.1 g/dL (6.2-8.2)
--- NOTE | 2024-06-06 09:40 | P.PN ---
Subjective Patient is seen in follow-up for hyponatremia. Sodium level 138 today. Has Russo catheter for urinary retention. Oral intake fair. No vomiting or diarrhea. Vital signs are stable. General: No acute distress. HEENT: Head exam is unremarkable. On nasal cannula. LUNGS: No audible rhonchi or wheezes. HEART: Rate and Rhythm are regular. ABDOMEN: Nontender. EXTREMITITES: No edema. Objective - Vital Signs Vital signs: Vital Signs Temp 97.8 F 06/06/24 07:35 Pulse 76 06/06/24 08:49 Resp 16 06/06/24 07:35 BP 155/73 06/06/24 07:35 Pulse Ox 95 06/06/24 07:35 FiO2 Intake & Output 06/05/24 06/06/24 06/06/24 18:59 06:59 18:59 Intake Total 575 Output Total 1400 800 Balance -825 -800 Intake: Oral 575 Output: Urine 1400 800 Other: Voiding Method Indwelling Catheter Indwelling Catheter Indwelling Catheter # Bowel Movements 2 1 - Labs CBC & Chem 7: 06/06/24 02:52 06/06/24 02:52 Labs: Abnormal Lab Results - Last 24 Hours (Table) 06/05/24 06/05/24 06/05/24 Range/Units 03:52 11:46 11:47 WBC (3.8-10.6) k/uL RBC (4.30-5.90) m/uL Hgb (13.0-17.5) gm/dL Hct (39.0-53.0) % MCH (25.0-35.0) pg MCHC (31.0-37.0) g/dL RDW (11.5-15.5) % Plt Count (150-450) k/uL Neutrophils # (1.3-7.7) k/uL Lymphocytes # (1.0-4.8) k/uL Sodium 132 L (137-145) mmol/L Chloride 96 L (98-107) mmol/L Carbon Dioxide 33 H (22-30) mmol/L BUN (9.0-27.0) mg/dL BUN/Creatinine Ratio (12.00-20.00) Ratio Glucose (70-110) mg/dL POC Glucose (mg/dL) 513 H* 133 H (70-110) mg/dL Calcium (8.7-10.3) mg/dL Total Bilirubin (0.3-1.2) mg/dL Total Protein (6.2-8.2) g/dL Albumin (3.8-4.9) g/dL Albumin/Globulin Ratio (1.60-3.17) Ratio 06/05/24 06/05/24 06/06/24 Range/Units 16:36 20:13 02:52 WBC (3.8-10.6) k/uL RBC (4.30-5.90) m/uL Hgb (13.0-17.5) gm/dL Hct (39.0-53.0) % MCH (25.0-35.0) pg MCHC (31.0-37.0) g/dL RDW (11.5-15.5) % Plt Count (150-450) k/uL Neutrophils # (1.3-7.7) k/uL Lymphocytes # (1.0-4.8) k/uL Sodium (137-145) mmol/L Chloride (98-107) mmol/L Carbon Dioxide (22-30) mmol/L BUN 45.4 H (9.0-27.0) mg/dL BUN/Creatinine Ratio 64.86 H (12.00-20.00) Ratio Glucose 117 H (70-110) mg/dL POC Glucose (mg/dL) 212 H 201 H (70-110) mg/dL Calcium 8.1 L (8.7-10.3) mg/dL Total Bilirubin 0.2 L (0.3-1.2) mg/dL Total Protein 5.1 L (6.2-8.2) g/dL Albumin 2.6 L (3.8-4.9) g/dL Albumin/Globulin Ratio 1.04 L (1.60-3.17) Ratio 06/06/24 06/06/24 06/06/24 Range/Units 02:52 06:11 06:58 WBC 10.7 H (3.8-10.6) k/uL RBC 4.11 L (4.30-5.90) m/uL Hgb 10.2 L (13.0-17.5) gm/dL Hct 35.0 L (39.0-53.0) % MCH 24.8 L (25.0-35.0) pg MCHC 29.1 L (31.0-37.0) g/dL RDW 16.1 H (11.5-15.5) % Plt Count 464 H (150-450) k/uL Neutrophils # 9.2 H (1.3-7.7) k/uL Lymphocytes # 0.7 L (1.0-4.8) k/uL Sodium (137-145) mmol/L Chloride (98-107) mmol/L Carbon Dioxide (22-30) mmol/L BUN (9.0-27.0) mg/dL BUN/Creatinine Ratio (12.00-20.00) Ratio Glucose (70-110) mg/dL POC Glucose (mg/dL) 63 L 117 H (70-110) mg/dL Calcium (8.7-10.3) mg/dL Total Bilirubin (0.3-1.2) mg/dL Total Protein (6.2-8.2) g/dL Albumin (3.8-4.9) g/dL Albumin/Globulin Ratio (1.60-3.17) Ratio Assessment and Plan Plan: Assessment: 1. Hyponatremia. Appears euvolemic. Concern for SIADH from underlying malignancy. Urine osmolality 509 and urine sodium 50. TSH normal. Improved. 2. Acute hypoxic respiratory failure. 3. Lung masses concerning for malignancy. 4. Hyperkalemia secondary to urinary retention. Improved. 5. Urinary retention. Has Russo catheter. On Flomax. Plan: Encouraged oral intake. Hep-Lock IV fluids. Maintain 1500 cc fluid restriction.
--- NOTE | 2024-06-06 10:46 | XR ---
EXAMINATION TYPE: XR chest 1V portable DATE OF EXAM: 06/06/2024 10:36 AM COMPARISON: Chest CT one week earlier and older studies CLINICAL INDICATION: Male, 73 years old with history of Pneumonia, TECHNIQUE: Single frontal view of the chest is obtained. FINDINGS: Underlying scoliosis is redemonstrated. Advanced degenerative change right glenohumeral bradly nt is noted. Cardiac silhouette size is within normal limits. There is background chronic emphysematous and pulmonary fibrotic changes bilaterally redemonstrated. There is persistent left midlung masslike consolidation and right basilar masslike consolidation. Und erlying masses or neoplasm needs to be considered. IMPRESSION: As above. Consider repeat PET CT to further evaluate. [facility], , 06/06/2024 10:44 AM
[2024-06-06 11:52] LABS: Glucose,Whole Blood 75 mg/dL (70-110)
--- NOTE | 2024-06-06 13:14 | P.DS ---
Providers Date of admission: 05/29/24 10:33 Expected date of discharge: 06/06/24 Attending physician: Fidencio Barrientos Consults: 05/29/24 15:42 Consult Physician Routine Consulting Provider: Ethan Jacobo Consult Reason/Comments: pneumonia Do you want consulting provider notified?: Yes 05/29/24 19:26 Consult Physician Routine Consulting Provider: Armando Davis Consult Reason/Comments: Pneumonia Do you want consulting provider notified?: Yes 06/02/24 09:39 Consult Physician Routine Consulting Provider: Meryl Das Consult Reason/Comments: Hyponatremia and hyperkalemia Do you want consulting provider notified?: Yes Primary care physician: Fidenciolien Barrientos [facility] Course: Discharge diagnosis Acute on chronic hypoxic respiratory failure Pneumonia Acute exacerbation of chronic obstructive pulmonary disease Underlying history of severe peripheral vascular disease with history of left above-knee amputation Continued history of tobacco abuse Underlying history of depression Underlying history of hypertension Underlying history of hyperlipidemia Previous history of coronary artery disease with history of angioplasty and stent placement Underlying history of anemia maintained on iron supplements Underlying history of degenerative disc disease maintained on narcotic for pain management Hospital course Baldev Joyce, is a 73-year-old male who presented to [facility] emergency room with a chief complaint of cough and worsening shortness of breath He was evaluated in the emergency room vital examination on presentation revealed a temperature of 98.9 pulse 77 respiration 20 blood pressure 156/73 pulse ox 92% on 4 L nasal cannula Laboratory data revealed a white blood count of 18.1 hemoglobin 11.9 platelet count 579 sodium 130 potassium 5.4 BUN 41 creatinine 0.69, influenza A and B RSV and COVID-19 PCR were all negative, troponin level 0.012 Testing in the emergency room revealed chest x-ray revealed patchy bilateral lung infiltrates, EKG revealed sinus rhythm with sinus arrhythmia Patient was admitted to medical floor for further evaluation and treatment Past medical history is significant for left above-knee amputation, severe peripheral arterial disease, advanced COPD, continued history of smoking On 05/30/2024 patient is alert and oriented x 3. Patient reports some im provement with shortness of breath. Patient remains on IV antibiotics pulmonary and infectious disease services are following. Current vital signs temp 97.5, heart rate 98, respiratory rate 155/73 with a pulse ox of 93% on 4 L On 05/31/2024 patient was seen and examined on the medical floor he is alert and oriented x 3 in no apparent distress he is still complaining of cough and shortness of breath otherwise he denies any complaints there is no fever or chills no headache or dizziness no chest pain no nausea or vomiting no abdominal pain no diarrhea and no urinary symptoms On 06/01/2024 patient is alert and oriented x 3. Patient is still complaining of some shortness of breath and cough. Patient remains on IV steroids. Pulmonary and infectious disease services are following. Current vital signs temp 97.5, heart 63, respiratory rate 19, blood pressure 144/58 with a pulse ox of 95% on 4 L On 06/02/2024 patient is alert and oriented x 3. Patient having some improvement. Patient denies chest pain or shortness of breath. Patient denies nausea vomiting or diarrhea. Patient denies any urinary burning or frequency. Patient remains on DuoNeb breathing treatments, IV Rocephin. Pulmonary and infectious disease services following. Current vital signs temp 98.4, heart 74, respiratory rate 20, blood pressure 134/60 with a pulse ox of 100% on 4 L. Will consult nephrology services for hyponatremia and hyperkalemia On 06/03/2024 patient was seen and examined on the medical floor he is alert and oriented x 3 in no apparent distress there is no fever or chills no headache or dizziness no chest pain no shortness of breath no cough no nausea or vomiting no abdominal pain no diarrhea and no urinary symptoms patient has severe generalized weakness, plan is for transfer to rehab on Wednesday. Patient has severe hyperkalemia, which improved with current medications, will continue to monitor labs daily. On 06/04/2024 patient was seen and examined on the medical floor he is alert and oriented x 3 in no apparent distress there is no fever or chills no headache or dizziness no chest pain no shortness of breath no cough no nausea or vomiting no abdominal pain no diarrhea and no urinary symptoms, he is improving gradually possible transfer to rehab tomorrow On 06/05/2024 patient was seen and examined on the medical floor he is alert and oriented x 3 in no apparent distress there is no fever or chills no headache or dizziness no chest pain no shortness of breath no cough no nausea or vomiting no abdominal pain no diarrhea and no urinary symptoms patient has severe general ized weakness, plan is for transfer to rehab. Patient has severe hyperkalemia, which improved with current medications, will continue to monitor labs daily. On 06/06/2024 patient is alert and oriented x 3. Patient will be DC'd to rehab facility today. Patient will be DC'd on prednisone taper and doxycycline. Patient denies chest pain or shortness of breath. Patient denies nausea vomiting or diarrhea. Patient denies any urinary burning or frequency Patient Condition at Discharge: Stable Plan - Discharge Summary Discharge Rx Participant: No New Discharge Prescriptions: No Action Aspirin 81 mg PO DAILY DULoxetine HCL [Cymbalta] 60 mg PO DAILY Pantoprazole Sodium [Protonix] 40 mg PO DAILY amLODIPine [Norvasc] 5 mg PO DAILY Albuterol Sulfate [Proair Hfa] 2 puff INHALATION RT-QID PRN PRN Reason: Shortness Of Breath Primidone [Mysoline] 25 mg PO HS Escitalopram [Lexapro] 20 mg PO DAILY Nitroglycerin Sl Tabs [Nitrostat] 0.4 mg SUBLINGUAL Q5M PRN 30 Days #25 tab PRN Reason: Chest Pain Multivitamins, Thera [Multivitamin (formulary)] 1 tab PO DAILY Melatonin 10 mg PO HS Lactulose [Constulose] 20 gm PO Q48H PRN PRN Reason: Constipation Baclofen 10 mg PO HS Valsartan [Diovan] 320 mg PO DAILY Atorvastatin [Lipitor] 80 mg PO DAILY #30 tab Metoprolol Succinate (ER) [Toprol XL] 25 mg PO DAILY #30 tab.er.24h Tamsulosin [Flomax] 0.4 mg PO DAILY HYDROcodone/APAP 10-325MG [Madison 10-325] 1 tab PO Q6HR Gabapentin 600 mg PO TID Fluticasone/Umeclidin/Vilanter [Trelegy Ellipta 200-62.5-25] 1 puff INHALATION RT-DAILY Ipratropium-Albuterol Nebulize [Duoneb 0.5 mg-3 mg/3 ml Soln] 3 ml INHALATION RT-QID 30 Days #120 each Ferrous Sulfate [Feosol] 325 mg PO DAILY 30 Days #30 tab traZODone HCL [Desyrel] 100 mg PO HS Clopidogrel [Plavix] 75 mg PO DAILY Simethicone 180 mg PO DAILY Discharge Medication List Aspirin 81 mg PO DAILY 01/14/14 [History] DULoxetine HCL [Cymbalta] 60 mg PO DAILY 01/14/14 [History] Pantoprazole Sodium [Protonix] 40 mg PO DAILY 06/13/18 [History] amLODIPine [Norvasc] 5 mg PO DAILY 06/13/18 [History] Atorvastatin [Lipitor] 80 mg PO DAILY #30 tab 07/20/20 [Rx] Metoprolol Succinate (ER) [Toprol XL] 25 mg PO DAILY #30 tab.er.24h 07/20/20 [Rx] Albuterol Sulfate [Proair Hfa] 2 puff INHALATION RT-QID PRN 08/29/21 [History] Tamsulosin [Flomax] 0.4 mg PO DAILY 08/29/21 [History] HYDROcodone/APAP 10-325MG [Madison 10-325] 1 tab PO Q6HR 07/12/22 [History] Primidone [Mysoline] 25 mg PO HS 07/12/22 [History] Escitalopram [Lexapro] 20 mg PO DAILY 03/23/23 [History] Fluticasone/Umeclidin/Vilanter [Trelegy Ellipta 200-62.5-25] 1 puff INHALATION RT-DAILY 03/23/23 [History] Gabapentin 600 mg PO TID 03/23/23 [History] Ipratropium-Albuterol Nebulize [Duoneb 0.5 mg-3 mg/3 ml Soln] 3 ml INHALATION RT-QID 30 Days #120 each 04/21/23 [Rx] Ferrous Sulfate [Feosol] 325 mg PO DAILY 30 Days #30 tab 06/05/23 [Rx] Nitroglycerin Sl Tabs [Nitrostat] 0.4 mg SUBLINGUAL Q5M PRN 30 Days #25 tab 06/05/23 [Rx] Baclofen 10 mg PO HS 05/29/24 [History] Clopidogrel [Plavix] 75 mg PO DAILY 05/29/24 [History] Lactulose [Constulose] 20 gm PO Q48H PRN 05/29/24 [History] Melatonin 10 mg PO HS 05/29/24 [History] Multivitamins, Thera [Multivitamin (formulary)] 1 tab PO DAILY 05/29/24 [History] Simethicone 180 mg PO DAILY 05/29/24 [History] Valsartan [Diovan] 320 mg PO DAILY 05/29/24 [History] traZODone HCL [Desyrel] 100 mg PO HS 05/29/24 [History] Follow up Appointment(s)/Referral(s): Fidencio Barrientos MD [Primary Care Provider] - 1-2 days
--- NOTE | 2024-06-06 14:07 | P.PN ---
Subjective Progress Note Date: 06/06/24 Patient is a 73-year-old male with past medical history significant for hypertension, hyperlipidemia, CAD, previous LA with PCI/stent, peripheral vascular disease, prior left AKA, former tobacco smoker, COPD, and lung mass. Patient does follow in the pulmonary office with Dr. Flanagan. PET scan performed 08/12/2023 demonstrating a left upper lung medial mass measuring 3.1 x 2.4 cm with metabolic activity. Also, small focus of uptake within the dome of the liver. Patient was felt to be a poor candidate for lung biopsy. Directed to radiation oncology. Unfortunately, patient never followed up with this appointment. Patient was scheduled for repeat PET scan, however, he canceled. He states that he has been overwhelmed with personal issues. States his sister recently, he could not make it to the due to severe weakness. Presented to emergency department yesterday morning with a chief complaint of generalized severe weakness. He does have a left [id number] amputation. Was at home, could not transferred back from the bedside commode. Called EMS for transfer to the ED. Also, reporting acute on chronic shortness of breath and a increased cough with white sputum production. Denies any chest pain or hemoptysis. Denies any fevers or chills. Oral intake has been fair. Denies sick contacts. Chest x-ray showing bilateral lung infiltrates including left perihilar masslike consolidation, as well as, a right lower lobe infiltrate. CBC: WBC count 18.1, hemoglobin 11.9, platelets 5 supertight. CMP: Sodium 130, potassium 4.4, chloride 99, serum bicarb 24, BUN 41, creatinine 0.69, glucose 157. Lactic 0.8. LFTs not elevated. Troponin less than 0.012. Urinalysis unremarkable for infection. Viral screen negative for influenza, RSV, COVID. Patient currently sitting up in bed, has pulled himself to the side of the bed. Appears frail and weak. No observable respiratory distress. Current vital signs: Temperature 98 F, heart rate 76 bpm, blood pressure 141/67 mmHg, nontachypneic, SpO2 reading 97% on 4 L/min nasal cannula On 05/31/2024, the patient is being seen for a follow-up. On today's evaluation, the patient is still having some cough and congestion and some shortness of breath. No other new complaints otherwise for now. As stated earlier, the patient has advanced COPD and tumor progression as evident on the most recent CAT scan of the chest. Suspected to have a superimposed pneumonia. Based on that, the patient was given Rocephin and Levaquin and the patient is also on DuoNeb nebulized treatments [id number] and IV Solu-Medrol. The white cell count today is at 10.9 with a hemoglobin 10.6 and a platelet count of 489. BUN is 44 with a creatinine of 1.1. Potassium is at 5.9. Procalcitonin level is at 0.13. UA was negative. Calcium level is at 8.2. Viral screen was negative. Legionella urine antigen was negative. Sputum culture and blood cultures still pending for now. On 06/01/2024, patient is being seen for a follow-up. The patient is resting comfortably in bed. The patient is being treated for an acute CF exacerbation. There may be also a superinfection with a community-acquired pneumonia based on a CAT scan of the chest that was done on 05/30/2024. However, he is enlargement and new lower lung masses and large lymphadenopathy within the mediastinum which is suggestive of progressive disease and he is aware of that. His lung cancer is in progression. The patient remains on IV Rocephin and Levaquin. No new complaints for now. No hemoptysis. No pleurisy. Oxygenation remained stable and the patient is currently on 4 L of O2 nasal cannula with a pulse ox of 93%. White cell count of 13 with a hemoglobin of 10.8. Potassium level is down to 5.8. BUN is 55 with a creatinine 1.1. Sodium is at 124. Blood sugar was noted to be quite elevated at 433. Based on that, based on underlying hyperkalemia, I suggested to give the patient 2 doses of sodium bicarb 50 mEq in addition to starting the patient on insulin. I gave him 10 units and I will start him on Levemir insulin 20 units daily and NovoLog sliding scale coverage. Blood sugars will be monitored. Meanwhile, his steroids will be tapered and the patient be taken after IV Solu-Medrol which will also help with his blood sugar control. Rest of the medications have been all resumed. The sputum sample was positive for corynebacterium. On 06/02/2024, the patient is being seen for a follow-up. The patient is calm and comfortable. No significant respiratory distress. Noted he was having issues with hyperglycemia yesterday. I start the patient on Lantus insulin 20 units daily and NovoLog 5 units with meal insulin scale coverage. Sugars are under better control. Potassium level has also normalized. He will be started back on prednisone burst taper regarding history of exacerbation. The white cell count of 13.6 with a hemoglobin 11.2 and a platelet count of 490. Sodium is at 128, potassium is at 5.5, BUN 60 with a creatinine of 1.1. Blood sugar control is improved. LFTs are normal. He remains on oxygen at 3 L with a pulse ox of 94%. No other significant events overnight. On 06/03/2024, the patient is feeling less short of breath. Less bronchospastic and wheezy. Start back on oral prednisone without any major rise in the blood sugars. Most recent blood sugars at 163. Sodium is at 130, BUN is 62 with a creatinine of 0.8. The patient is currently on DuoNeb [facility]. The patient is on Symbicort as maintenance 2 puffs twice a day. The patient is also on prednisone 40 mg p.o. daily. The patient is receiving Lantus insulin 20 units daily and NovoLog 5 units with meals and sliding scale coverage. Rest of medications remain unchanged. On 06/04/2024, patient is being seen for a follow-up. The patient is resting comfortably in bed. Trying to improve his oral intake. Denies having any new complaints. Sputum sample was positive for Corynebacterium and the patient was given vancomycin by ID. Remains on Symbicort and Spiriva and the patient is currently on a prednisone burst taper. He is at a dose of 40 mg p.o. daily. Rest of medication remain unchanged. White cell count of 13.9 with a hemoglobin 11.6 and a platelet count of 441. BUN 63 creatinine 0.8 and sodium was 138 and a potassium level was at 4.4. No other significant events overnight. The patient is seen today June 05, 2024 in follow-up on the regular medical floor. He is currently sitting up in bed. Awake and alert in no acute distress. He remains quite weak and debilitated. Maintaining O2 saturations in the mid 90s on 3 L/min per nasal cannula. He is afebrile. Hemodynamically stable. Sputum culture revealed corynebacterium stratum group. Sodium 132. Potassium 4.5. Bicarb 33. Creatinine 0.79. Glucose 133. He remains on DuoNeb inhalations, Symbicort, prednisone taper. Lovenox for DVT prophylaxis. He remains on vancomycin per ID service. The patient is seen today June 06, 2024 in follow-up on the regular medical floor. He is currently awake and alert in no acute distress. Resting fairly comfortably in bed. Maintaining O2 saturations in the 90s on 3 L/min per nasal cannula. He is afebrile. Hemodynamically stable. Follow-up chest x-ray continues to show background chronic emphysema and pulmonary fibrotic changes bilaterally. Persistent left midlung masslike consolidation and right basilar masslike consolidation. White count 10.7. Hemoglobin 10.2. Platelets 464. Sodium 138. Potassium 4.9. Bicarb 31. BUN 45. Creatinine 0.7. Glucose 117. Remains on DuoNeb inhalations, Symbicort, prednisone taper. Lovenox for DVT prophylaxis. Currently on vancomycin per ID service. Objective - Vital Signs Vital signs: Vital Signs Temp 97.8 F 06/06/24 07:35 Pulse 70 06/06/24 12:13 Resp 16 06/06/24 07:35 BP 155/73 06/06/24 07:35 Pulse Ox 95 06/06/24 07:35 FiO2 Intake & Output 06/05/24 06/06/24 06/06/24 18:59 06:59 18:59 Intake Total 575 Output Total 1400 800 Balance -825 -800 Intake: Oral 575 Output: Urine 1400 800 Other: Voiding Method Indwelling Catheter Indwelling Catheter Indwelling Catheter # Bowel Movements 2 1 - Exam GENERAL EXAM: Alert, 73-year-old male, cachectic, on 3 L nasal cannula, in no apparent distress. HEAD: Normocephalic and atraumatic EYES: Normal reaction of pupils, equal size. NOSE: Clear with pink turbinates. Oropharynx/THROAT: Poor dentition. No erythema or exudates. NECK: No masses, no JVD. No palpable lymphadenopathy CHEST: No chest wall deformity. LUNGS: Equal air entry with expiratory wheezes and rhonchi. No conversational dyspnea. CVS: S1 and S2 normal with no audible murmur, irregular rhythm. No other extra heart sounds ABDOMEN: No hepatosplenomegaly, active bowel sounds, no guarding or rigidity. SPINE: No scoliosis or deformity SKIN: No rashes CENTRAL NERVOUS SYSTEM: No focal deficits, tone is normal in all 4 extremities. EXTREMITIES: Prior left AKA. There is no peripheral edema, clubbing, or cyanosis. Peripheral pulses are intact. - Labs CBC & Chem 7: 06/06/24 02:52 06/06/24 02:52 Labs: Abnormal Lab Results - Last 24 Hours (Table) 06/05/24 06/05/24 06/06/24 Range/Units 16:36 20:13 02:52 WBC (3.8-10.6) k/uL RBC (4.30-5.90) m/uL Hgb (13.0-17.5) gm/dL Hct (39.0-53.0) % MCH (25.0-35.0) pg MCHC (31.0-37.0) g/dL RDW (11.5-15.5) % Plt Count (150-450) k/uL Neutrophils # (1.3-7.7) k/uL Lymphocytes # (1.0-4.8) k/uL BUN 45.4 H (9.0-27.0) mg/dL BUN/Creatinine Ratio 64.86 H (12.00-20.00) Ratio Glucose 117 H (70-110) mg/dL POC Glucose (mg/dL) 212 H 201 H (70-110) mg/dL Calcium 8.1 L (8.7-10.3) mg/dL Total Bilirubin 0.2 L (0.3-1.2) mg/dL Total Protein 5.1 L (6.2-8.2) g/dL Albumin 2.6 L (3.8-4.9) g/dL Albumin/Globulin Ratio 1.04 L (1.60-3.17) Ratio 06/06/24 06/06/24 06/06/24 Range/Units 02:52 06:11 06:58 WBC 10.7 H (3.8-10.6) k/uL RBC 4.11 L (4.30-5.90) m/uL Hgb 10.2 L (13.0-17.5) gm/dL Hct 35.0 L (39.0-53.0) % MCH 24.8 L (25.0-35.0) pg MCHC 29.1 L (31.0-37.0) g/dL RDW 16.1 H (11.5-15.5) % Plt Count 464 H (150-450) k/uL Neutrophils # 9.2 H (1.3-7.7) k/uL Lymphocytes # 0.7 L (1.0-4.8) k/uL BUN (9.0-27.0) mg/dL BUN/Creatinine Ratio (12.00-20.00) Ratio Glucose (70-110) mg/dL POC Glucose (mg/dL) 63 L 117 H (70-110) mg/dL Calcium (8.7-10.3) mg/dL Total Bilirubin (0.3-1.2) mg/dL Total Protein (6.2-8.2) g/dL Albumin (3.8-4.9) g/dL Albumin/Globulin Ratio (1.60-3.17) Ratio Assessment and Plan Assessment: Acute COPD exacerbation, Chest x-ray showing bilateral lung infiltrates including left perihilar masslike consolidation, as well as, a right lower lobe infiltrate. Findings concerning for disease progression with possible superimposed community-acquired pneumonia. CAT scan of the chest that was done on 05/30/2024. There are new lower lung masses with enlarging hilar lymphadenopathy and progression of his neoplasm need to be considered. There is also background extensive emphysematous changes. A superimposed pneumonia cannot be completely ruled out as the patient has a consolidation in the posterior left midlung area which is essentially new. This could be also and area of malignancy. The patient was receiving Rocephin and vancomycin and was switched to vancomycin by infectious disease based on presence of c orynebacterium in sputum. Acute leukocytosis, slightly improved and the white cell count is down to 10.7 Left upper lung mass, suspicious for bronchogenic carcinoma, most recent PET scan showing left upper lung medial mass measuring 3.1 x 2.4 cm, patient felt to be a poor surgical candidate and was directed to radiation oncology. He never followed up with this appointment. Also, was scheduled for a repeat PET scan to be done outpatient; however, patient canceled this appointment Acute on chronic hypoxemic respiratory failure, currently on 4 L/min nasal cannula Very severe chronic obstructive pulmonary disease, with an FEV1 24% of predicted Hyperglycemia, likely steroid-induced, improved, currently on Lantus Hyperkalemia History of coronary artery disease, with previous PCI/stent History of hyperlipidemia Hypertension History of peripheral vascular disease History of prior left AKA Chronic anemia, hemoglobin stable History of GERD with esophagitis History of diverticulosis Former tobacco dependence Severe protein calorie malnutrition with a BMI of 13.7 kg/m Marijuana smoker Plan: The patient was seen and evaluated Chest x-ray, labs and medications reviewed Currently stable on 3 L nasal cannula Continue bronchodilators, steroids Antibiotics per ID service Educated regarding the importance of follow-up Will need PET scan in the outpatient setting Plan is for [facility] at discharge I have personally seen and examined the patient, performed the documentation and the assessment and plan as written. Number of minutes spent on the visit: 10 Dictation was produced using [employer] dictation software. Please excuse any grammatical, word or spelling errors.
[2024-06-06 14:41] VITALS: BP 131/52; RESP 18; TEMP 97.5
[2024-06-06 16:05] VITALS: PULSE 70
--- NOTE | 2024-06-06 16:48 | P.PN ---
Subjective Progress Note Date: 06/06/24 Principal diagnosis: Reason for follow-up is pneumonia Patient is a 73-year-old male with a past medical history significant for COPD hypertension hyperlipidemia MO osteoarthritis presenting to the hospital for evaluation of weakness patient did have elevated white count with a CT of the chest shows evidence of new bilateral lung masses concerning for possible malignancy and question of pneumonia. On today's evaluation that is 06/06/2024, Patient is afebrile this morning patient denies having any chest pain shortness of breath or any worsening cough, the patient is currently on 3 L current oxygen patient denies any abdominal pain no diarrhea no nausea no vomiting. Patient white count is 10.7, creatinine 0.7 Objective - Vital Signs Vital signs: Vital Signs Temp 97.8 F 06/06/24 07:35 Pulse 78 06/06/24 11:51 Resp 16 06/06/24 07:35 BP 155/73 06/06/24 07:35 Pulse Ox 95 06/06/24 07:35 FiO2 Intake & Output 06/05/24 06/06/24 06/06/24 18:59 06:59 18:59 Intake Total 575 Output Total 1400 800 Balance -825 -800 Intake: Oral 575 Output: Urine 1400 800 Other: Voiding Method Indwelling Catheter Indwelling Catheter Indwelling Catheter # Bowel Movements 2 1 - Exam GENERAL DESCRIPTION: An elderly male lying in bed in no distress RESPIRATORY SYSTEM: Unlabored breathing , decreased breath sounds at bases HEART: S1 S2 regular rate and rhythm , ABDOMEN: Soft , no tenderness EXTREMITIES: No edema feet - Labs CBC & Chem 7: 06/06/24 02:52 06/06/24 02:52 Labs: Abnormal Lab Results - Last 24 Hours (Table) 06/05/24 06/05/24 06/06/24 Range/Units 16:36 20:13 02:52 WBC (3.8-10.6) k/uL RBC (4.30-5.90) m/uL Hgb (13.0-17.5) gm/dL Hct (39.0-53.0) % MCH (25.0-35.0) pg MCHC (31.0-37.0) g/dL RDW (11.5-15.5) % Plt Count (150-450) k/uL Neutrophils # (1.3-7.7) k/uL Lymphocytes # (1.0-4.8) k/uL BUN 45.4 H (9.0-27.0) mg/dL BUN/Creatinine Ratio 64.86 H (12.00-20.00) Ratio Glucose 117 H (70-110) mg/dL POC Glucose (mg/dL) 212 H 201 H (70-110) mg/dL Calcium 8.1 L (8.7-10.3) mg/dL Total Bilirubin 0.2 L (0.3-1.2) mg/dL Total Protein 5.1 L (6.2-8.2) g/dL Albumin 2.6 L (3.8-4.9) g/dL Albumin/Globulin Ratio 1.04 L (1.60-3.17) Ratio 06/06/24 06/06/24 06/06/24 Range/Units 02:52 06:11 06:58 WBC 10.7 H (3.8-10.6) k/uL RBC 4.11 L (4.30-5.90) m/uL Hgb 10.2 L (13.0-17.5) gm/dL Hct 35.0 L (39.0-53.0) % MCH 24.8 L (25.0-35.0) pg MCHC 29.1 L (31.0-37.0) g/dL RDW 16.1 H (11.5-15.5) % Plt Count 464 H (150-450) k/uL Neutrophils # 9.2 H (1.3-7.7) k/uL Lymphocytes # 0.7 L (1.0-4.8) k/uL BUN (9.0-27.0) mg/dL BUN/Creatinine Ratio (12.00-20.00) Ratio Glucose (70-110) mg/dL POC Glucose (mg/dL) 63 L 117 H (70-110) mg/dL Calcium (8.7-10.3) mg/dL Total Bilirubin (0.3-1.2) mg/dL Total Protein (6.2-8.2) g/dL Albumin (3.8-4.9) g/dL Albumin/Globulin Ratio (1.60-3.17) Ratio Assessment and Plan (1) Pneumonia Current Visit: Yes Status: Acute Code(s): J18.9 - PNEUMONIA, UNSPECIFIED ORGANISM SNOMED Code(s): 509928600 (2) Leukocytosis Current Visit: No Status: Acute Code(s): D72.829 - ELEVATED WHITE BLOOD CELL COUNT, UNSPECIFIED SNOMED Code(s): 170935168 (3) Diarrhea Current Visit: Yes Status: Acute Code(s): R19.7 - DIARRHEA, UNSPECIFIED SNOMED Code(s): 44120787 Plan: 1patient presented to hospital with weakness which is likely multifactorial in this patient who did have significant history of COPD now with the elevated white count cough sputum production concerning for pneumonia although CT was also concerning for possible masses, pulmonary is following 2blood culture have been negative and sputum cultures currently growing corynebacterium stratum which is considered contaminant but can cause infection in a patient with compromise lung condition which this patient 3patient currently being treated with vancomycin pharmacy to dose while inpatient however plan is to finish therapy with oral doxycycline 100 mg twice daily for 10 days on discharge this was discussed with GRID INSPECTOR for admitting team working on discharge Dictation was produced using [employer] dictation software. please excuse any grammatical, word or spelling errors.
== END 2024-06-06 16:56 | DRG 193 ==
LOC: EC 08:35 → 4SSUR 10:33
PROVIDERS: ADMIT Internal Medicine; ATTEND Internal Medicine
DX: J18.8 Other pneumonia, unspecified organism (principal); E43 Unspecified severe protein-calorie malnutrition; J96.21 Acute and chronic respiratory failure with hypoxia; I50.31 Acute diastolic (congestive) heart failure; E22.2 Syndrome of inappropriate secretion of antidiuretic hormone; C34.90 Malignant neoplasm of unspecified part of unspecified bronchus or lung; J44.0 Chronic obstructive pulmonary disease with (acute) lower respiratory infection; D64.9 Anemia, unspecified; I73.9 Peripheral vascular disease, unspecified; F32.A Depression, unspecified; I10 Essential (primary) hypertension; Z68.1 Body mass index [BMI] 19.9 or less, adult; Z89.612 Acquired absence of left leg above knee; J43.9 Emphysema, unspecified; Z11.52 Encounter for screening for COVID-19; Z87.891 Personal history of nicotine dependence; E78.5 Hyperlipidemia, unspecified; Z95.5 Presence of coronary angioplasty implant and graft; I25.10 Atherosclerotic heart disease of native coronary artery without angina pectoris; Z79.891 Long term (current) use of opiate analgesic; K21.00 Gastro-esophageal reflux disease with esophagitis, without bleeding; T38.0X5A Adverse effect of glucocorticoids and synthetic analogues, initial encounter; R73.9 Hyperglycemia, unspecified; E87.5 Hyperkalemia; R33.8 Other retention of urine; I25.2 Old myocardial infarction; Z79.02 Long term (current) use of antithrombotics/antiplatelets; Z79.51 Long term (current) use of inhaled steroids; Z79.82 Long term (current) use of aspirin; Z71.6 Tobacco abuse counseling; Z79.899 Other long term (current) drug therapy; Z90.79 Acquired absence of other genital organ(s); Z88.1 Allergy status to other antibiotic agents; Z86.14 Personal history of Methicillin resistant Staphylococcus aureus infection
CPT/HCPCS: 36415; 71045; 71046; 71260; 80048; 80051; 80053; 80202; 81003; 82565; 83036; 83605; 83735; 83935; 84132; 84145; 84300; 84443; 84484; 85025; 85610; 85730; 87040; 87070; 87205; 87449; 87636; 93005; 94640; 94760; 96361; 96365; 96375; 99285

== ENCOUNTER 2024-06-23 07:51 | Emergency (ER) | payer MEDICARE ==
[2024-06-23 07:57] VITALS: RESP 18; TEMP 98.9
--- NOTE | 2024-06-23 08:06 | ED ---
Male Urogenital HPI - General Chief complaint: Urogenital Stated complaint: cath issue Time Seen by Provider: 06/23/24 08:05 Source: patient, EMS, RN notes reviewed, old records reviewed Mode of arrival: ambulatory Limitations: no limitations - History of Present Illness Initial comments: 74-year-old male presented to the ER via EMS for evaluation of urinary catheter issue. Patient reports he was released from [facility] after rehabilitation yesterday. He states when he got home from [facility] he emptied his catheter bag which had a significant amount of urine. He states since then his catheter appears to be blocked and is not draining urine. He is reporting a pressure sensation to his suprapubic region. Patient states Russo catheter was placed [address] [facility] due to "blockage". Patient denies any fevers, chills, nausea, vomiting, chest pain, shortness of breath, constipation/diarrhea or peripheral edema. - Related Data Home Medications Medication Instructions Recorded Confirmed Aspirin 81 mg PO DAILY 01/14/14 05/29/24 DULoxetine HCL [Cymbalta] 60 mg PO DAILY 01/14/14 05/29/24 Pantoprazole Sodium [Protonix] 40 mg PO DAILY 06/13/18 05/29/24 amLODIPine [Norvasc] 5 mg PO DAILY 06/13/18 05/29/24 Albuterol Sulfate [Proair Hfa] 2 puff INHALATION RT-QID PRN 08/29/21 05/29/24 Tamsulosin [Flomax] 0.4 mg PO DAILY 08/29/21 05/29/24 Primidone [Mysoline] 25 mg PO HS 07/12/22 05/29/24 Escitalopram [Lexapro] 20 mg PO DAILY 03/23/23 05/29/24 Fluticasone/Umeclidin/Vilanter 1 puff INHALATION RT-DAILY 03/23/23 05/29/24 [Trelegy Ellipta 200-62.5-25] Baclofen 10 mg PO HS 05/29/24 05/29/24 Clopidogrel [Plavix] 75 mg PO DAILY 05/29/24 05/29/24 Lactulose [Constulose] 20 gm PO Q48H PRN 05/29/24 05/29/24 Melatonin 10 mg PO HS 05/29/24 05/29/24 Multivitamins, Thera [Multivitamin 1 tab PO DAILY 05/29/24 05/29/24 (formulary)] Simethicone 180 mg PO DAILY 05/29/24 05/29/24 traZODone HCL [Desyrel] 100 mg PO HS 05/29/24 05/29/24 Previous Rx's Medication Instructions Recorded Atorvastatin [Lipitor] 80 mg PO DAILY #30 tab 07/20/20 Metoprolol Succinate (ER) [Toprol 25 mg PO DAILY #30 tab.er.24h 07/20/20 XL] Ipratropium-Albuterol Nebulize 3 ml INHALATION RT-QID 30 Days 04/21/23 [Duoneb 0.5 mg-3 mg/3 ml Soln] #120 each Ferrous Sulfate [Feosol] 325 mg PO DAILY 30 Days #30 tab 06/05/23 Nitroglycerin Sl Tabs [Nitrostat] 0.4 mg SUBLINGUAL Q5M PRN 30 Days 06/05/23 #25 tab Doxycycline [Vibramycin] 100 mg PO BID 10 Days #20 capsule 06/06/24 Gabapentin 600 mg PO TID 3 Days #9 tab 06/06/24 HYDROcodone/APAP 10-325MG [[place] 1 tab PO Q6HR 3 Days #12 tab 06/06/24 10-325] predniSONE [Deltasone] 40 mg PO DAILY 12 Days #30 tab 06/06/24 Fluconazole 150 mg PO ONCE #1 tab 06/26/24 Allergies Allergy/AdvReac Type Severity Reaction Status Date / Time azithromycin [From Zithromax] Allergy Rash/Hives Verified 06/23/24 07:57 Review of Systems ROS Statement: Those systems with pertinent positive or pertinent negative responses have been documented in the HPI. ROS Other: All systems not noted in ROS Statement are negative. 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 knee wound + FOR MRSA. History of high left above-knee amputation done approximately 2009. Last Myocardial Infarction Date:: 2003 History of Any Multi-Drug Resistant Organisms: Acinetobacter (MDRO), MRSA Date of last positivie culture/infection: 04/02/16 MDRO Source:: LT KNEE WOUND Past Surgical History: Heart Catheterization With Stent, Orthopedic Surgery Additional Past Surgical History / Comment(s): STENTS TO LEFT GROIN, LEFT ABOVE THE KNEE AMPUTATION, unsuccessful revascularization left leg, shoulder surgery, surgical debridement of necrotic tissue left scrotal area, LT AKA 03/03/16. left testicle removed. heart stent x1 broken left hip Past Anesthesia/Blood Transfusion Reactions: No Reported Reaction Date of Last Stent Placement:: 2006 Past Psychological History: Depression Smoking Status: Former smoker Past Alcohol Use History: None Reported Past Drug Use History: Marijuana - Past Family History Sister(s) History Unknown: Yes Family Medical History: Cancer Additional Family Medical History / Comment(s): double mastectomy, still surviving Father History Unknown: Yes Family Medical History: No Reported History Mother History Unknown: Yes Family Medical History: No Reported History Additional Family Medical History / Comment(s): hypoglycemia General Exam Limitations: no limitations General appearance: alert, in no apparent distress Respiratory exam: Present: normal lung sounds bilaterally. Absent: respiratory distress, wheezes, rales, rhonchi, stridor Cardiovascular Exam: Present: regular rate, normal rhythm, normal heart sounds. Absent: systolic murmur, diastolic murmur, rubs, gallop, clicks GI/Abdominal exam: Present: soft, tenderness (suprapubic), normal bowel sounds. Absent: distended, guarding, rebound, rigid Neurological exam: Present: alert, oriented X3, CN II-XII intact Skin exam: Present: warm, dry, intact, normal color. Absent: rash Course Vital Signs 06/23/24 06/23/24 07:52 09:55 Temperature 98.9 F 98.9 F Pulse Rate 80 82 Respiratory 18 18 Rate Blood Pressure 166/84 145/86 O2 Sat by Pulse 94 L 95 Oximetry - Reevaluation(s) Reevaluation #1: 06/23/24 08:56 Patient reevaluated. No signs of acute distress. Urine output 700 mL. Medical Decision Making - Medical Decision Making Was pt. sent in by a medical professional or institution (, PA, KIDS ACTIVITIES COACH, urgent care, hospital, or retirement...) When possible be specific @ -No Did you speak to anyone other than the patient for history (EMS, parent, family, police, friend...)? What history was obtained from this source @ -No Did you review nursing and triage notes (agree or disagree)? Why? @ -I reviewed and agree with nursing and triage notes Were old charts reviewed (outside hosp., previous admission, EMS record, old EKG, old radiological studies, urgent care reports/EKG's, retirement records)? Report findings @ -No old charts were reviewed Differential Diagnosis (chest pain, altered mental status, abdominal pain women, abdominal pain men, vaginal bleeding, weakness, fever, dyspnea, syncope, headache, dizziness, GI bleed, back pain, seizure, CVA, palpatations, mental health, musculoskeletal)? @ -Urinary retention, urinary catheter issue, UTI, prostate disorder... this list is not meant to be all inclusive EKG interpreted by me (3pts min.). @ -None done X-rays interpreted by me (1pt min.). @ -None done CT interpreted by me (1pt min.). @ -None done U/S interpreted by me (1pt. min.). @ -None done What testing was considered but not performed or refused? (CT, X-rays, U/S, labs)? Why? @ -None What meds were considered but not given or refused? Why? @ -None Did you discuss the management of the patient with other professionals (professionals i.e. , PA, KIDS ACTIVITIES COACH, lab, RT, psych nurse, social worker psychiatric, tumbler drier operator, teacher, state patrol officer, high risk case manager)? Give summary @ -No Was smoking cessation discussed for >3mins.? @ -No Was critical care preformed (if so, how long)? @ -No Were there social determinants of health that impacted care today? How? (Homelessness, low income, unemployed, alcoholism, drug addiction, tra nsportation, low edu. Level, literacy, decrease access to med. care, detention, rehab)? @ -No Was there de-escalation of care discussed even if they declined (Discuss DNR or withdrawal of care, Hospice)? DNR status @ -No What co-morbidities impacted this encounter? (DM, HTN, Smoking, COPD, CAD, Cancer, CVA, ARF, Chemo, Hep., AIDS, mental health diagnosis, sleep apnea, morbid obesity)? @ -None Was patient admitted / discharged? Hospital course, mention meds given and route, prescriptions, significant lab abnormalities, going to OR and other pertinent info. @ -Discharge. 74-year-old male presented the ER for evaluation of urinary catheter issue.Vitals within acceptable limits. Patient in no signs acute distress nontoxic-appearing. Bladder scan showing 567 mL in the bladder. Per n ursing staff, upon attempting to change Russo catheter it was pinched off and twisted. After untwisting there was approximately 700 mL of urinary output seen. Urinalysis is contaminated as it was pulled from indwelling Russo catheter. This will be sent for culture prior to antibiotic initiation. Culture growing Meme albicans for which fluconazole was prescribed. Patient reports improvement of abdominal discomfort after bladder drainage. No other complaints. Patient is stable for discharge at this time. Strict return parameters discussed. Patient discharged in stable condition with follow-up to urology. Patient verbally expressed understanding agree with care plan. Case discussed with ED attending, Dr. Mckeon. Undiagnosed new problem with uncertain prognosis? @ -No Drug Therapy requiring intensive monitoring for toxicity (Heparin, Nitro, Insulin, Cardizem)? @ -No Were any procedures done? @ -No Diagnosis/symptom? @ -Urinary catheter complication Acute, or Chronic, or Acute on Chronic? @ -Acute Uncomplicated (without systemic symptoms) or Complicated (systemic symptoms)? @ -Uncomplicated Side effects of treatment? @ -No Exacerbation, Progression, or Severe Exacerbation? @ -No Poses a threat to life or bodily function? How? (Chest pain, [place], NH, pneumonia, PE, COPD, DKA, ARF, appy, cholecystitis, CVA, Diverticulitis, Homicidal, Suicidal, threat to staff... and all critical care pts) @ -No - Lab Data Lab Results 06/23/24 Range/Units 08:07 Urine Color Light Yellow Urine Appearance Cloudy (Clear) Urine pH 5.5 (5.0-8.0) Ur Specific [place] 1.016 (1.001-1.035) Urine Protein Trace H (Negative) Urine Glucose (UA) Negative (Negative) Urine Ketones Negative (Negative) Urine Blood Small H (Negative) Urine Nitrite Negative (Negative) Urine Bilirubin Negative (Negative) Urine Urobilinogen <2.0 (<2.0) mg/dL Ur Leukocyte Esterase Large H (Negative) Urine RBC 42 H (0-5) /hpf Urine WBC 151 H (0-5) /hpf Urine Mucus Rare H (None) /hpf Urine Yeast (Budding) Many H (None) /hpf Disposition Clinical Impression: Urinary catheter complication Disposition: HOME SELF-CARE Condition: Stable Instructions (If sedation given, give patient instructions): Russo Catheter Placement and Care (ED) Additional Instructions: Follow-up with PCP. Return to the ER for any new or worsening symptoms. Prescriptions: Fluconazole 150 mg PO ONCE #1 tab Is patient prescribed a controlled substance at d/c from ED?: No Referrals: Fidencio Barrientos MD [Primary Care Provider] - 1-2 days Time of Disposition: 08:55
[2024-06-23 08:34] LABS: Appearance,Urine Cloudy (Clear); Bilirubin,Urine Negative (Negative); Blood,Urine Small (Negative); Budding Yeast,Urine Many /hpf; Color,Urine Light Yellow; Glucose,Urine (UA) Negative (Negative); Ketones,Urine Negative (Negative); Leukocyte Esterase,Urine Large (Negative); Mucus,Urine Rare /hpf; Nitrite,Urine Negative (Negative); PH, Urine 5.5 (5.0-8.0); Protein,Urine Trace (Negative); RBC,Urine 42 /hpf (0-5); Specific Gravity,Urine 1.016 (1.001-1.035); Urobilinogen,Urine <2.0 mg/dL (<2.0); WBC,Urine 151 /hpf (0-5)
[2024-06-23 09:57] VITALS: BP 145/86; PULSE 82
== END 2024-06-23 10:00 | disposition home or self-care (01) ==
LOC: EC 07:51
DX: T83.9XXA Unspecified complication of genitourinary prosthetic device, implant and graft, initial encounter (principal); Z87.891 Personal history of nicotine dependence; Z88.1 Allergy status to other antibiotic agents
CPT/HCPCS: 51702; 51798; 81001; 87086; 99283

== ENCOUNTER 2024-07-06 07:25 | Inpatient (IN) | payer MEDICARE ==
[2024-07-06] MEDS: IPRATROPIUM-ALBUTEROL 3 ML NEB INHALATION STA (09:21)
--- NOTE | 2024-07-06 10:08 | ED ---
General Adult HPI - General Chief complaint: Recheck/Abnormal Lab/Rx Stated complaint: SOB Time Seen by Provider: 07/06/24 07:35 Source: patient, EMS Mode of arrival: EMS Limitations: no limitations - History of Present Illness Initial comments: 74-year-old male who presents to the emergency department originally stating that his concentrator is broken. Patient wears 5 L of oxygen at all time. His home care nurse was reporting that the patient was having desaturations into the 80s yesterday. They attempted to call [facility] however they were unable to get through and therefore they had patient transferred in. Patient admits to profound weakness. He does not have any backup oxygen tanks. He was recently treated for pneumonia. Family does not feel as if he is improving at all with his strength. EMS had to be called to the house 4 times this week to pick the patient up off the toilet. He has had several loose bowel movements. Denies black or bloody bowel movements. Patient does have a Russo catheter. He does report to seeing his primary yesterday. has slight dementia. His nephew has moved in to help care for him however he does work nights and therefore has to sleep during the day. The home care nurse reports that this is not enough care for the patient and Adult Protective Services has been notified. Patient denies any fevers. No cough. No chest pain. No other alleviating, precipitating modifying factors - Related Data Home Medications Medication Instructions Recorded Confirmed Aspirin 81 mg PO DAILY 01/14/14 07/06/24 DULoxetine HCL [Cymbalta] 60 mg PO DAILY 01/14/14 07/06/24 Pantoprazole Sodium [Protonix] 40 mg PO DAILY 06/13/18 07/06/24 amLODIPine [Norvasc] 5 mg PO DAILY 06/13/18 07/06/24 Albuterol Sulfate [Proair Hfa] 2 puff INHALATION RT-QID PRN 08/29/21 07/06/24 Tamsulosin [Flomax] 0.4 mg PO DAILY 08/29/21 07/06/24 Primidone [Mysoline] 25 mg PO HS 07/12/22 07/06/24 Escitalopram [Lexapro] 20 mg PO DAILY 03/23/23 07/06/24 Fluticasone/Umeclidin/Vilanter 1 puff INHALATION RT-DAILY 03/23/23 07/06/24 [Trelegy Ellipta 200-62.5-25] Baclofen 10 mg PO HS 05/29/24 07/06/24 Clopidogrel [Plavix] 75 mg PO DAILY 05/29/24 07/06/24 Lactulose [Constulose] 20 gm PO Q48H PRN 05/29/24 07/06/24 Melatonin 10 mg PO HS 05/29/24 07/06/24 Multivitamins, Thera [Multivitamin 1 tab PO DAILY 05/29/24 07/06/24 (formulary)] Simethicone 180 mg PO DAILY 05/29/24 07/06/24 traZODone HCL [Desyrel] 100 mg PO HS 05/29/24 07/06/24 Previous Rx's Medication Instructions Recorded Atorvastatin [Lipitor] 80 mg PO DAILY #30 tab 07/20/20 Metoprolol Succinate (ER) [Toprol 25 mg PO DAILY #30 tab.er.24h 07/20/20 XL] Ipratropium-Albuterol Nebulize 3 ml INHALATION RT-QID 30 Days 04/21/23 [Duoneb 0.5 mg-3 mg/3 ml Soln] #120 each Ferrous Sulfate [Feosol] 325 mg PO DAILY 30 Days #30 tab 06/05/23 Nitroglycerin Sl Tabs [Nitrostat] 0.4 mg SUBLINGUAL Q5M PRN 30 Days 06/05/23 #25 tab Gabapentin 600 mg PO TID 3 Days #9 tab 06/06/24 HYDROcodone/APAP 10-325MG [[place] 1 tab PO Q6HR 3 Days #12 tab 06/06/24 10-325] Allergies Allergy/AdvReac Type Severity Reaction Status Date / Time azithromycin [From Zithromax] Allergy Rash/Hives Verified 07/06/24 11:07 Review of Systems ROS Statement: Those systems with pertinent positive or pertinent negative responses have been documented in the HPI. ROS Other: All systems not noted in ROS Statement are negative. 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 knee wound + FOR MRSA. History of high left above-knee amputation done approximately 2009. Last Myocardial Infarction Date:: 2003 History of Any Multi-Drug Resistant Organisms: Acinetobacter (MDRO), MRSA Date of last positivie culture/infection: 04/02/16 MDRO Source:: LT KNEE WOUND Past Surgical History: Heart Catheterization With Stent, Orthopedic Surgery Additional Past Surgical History / Comment(s): STENTS TO LEFT GROIN, LEFT ABOVE THE KNEE AMPUTATION, unsuccessful revascularization left leg, shoulder surgery, surgical debridement of necrotic tissue left scrotal area, LT AKA 03/03/16. left testicle removed. heart stent x1 broken left hip Past Anesthesia/Blood Transfusion Reactions: No Reported Reaction Date of Last Stent Placement:: 2006 Past Psychological History: Depression Smoking Status: Former smoker Past Alcohol Use History: None Reported Past Drug Use History: Marijuana - Past Family History Sister(s) History Unknown: Yes Family Medical History: Cancer Additional Family Medical History / Comment(s): double mastectomy, still surviving Father History Unknown: Yes Family Medical History: No Reported History Mother History Unknown: Yes Family Medical History: No Reported History Additional Family Medical History / Comment(s): hypoglycemia General Exam Limitations: no limitations General appearance: alert, in no apparent distress Head exam: Present: atraumatic, normocephalic, normal inspection Eye exam: Present: normal appearance, PERRL, EOMI. Absent: scleral icterus, conjunctival injection, periorbital swelling ENT exam: Present: normal exam, mucous membranes moist Neck exam: Present: normal inspection. Absent: tenderness, meningismus, lymp hadenopathy Respiratory exam: Present: rales, decreased breath sounds. Absent: respiratory distress, wheezes, rhonchi, stridor Cardiovascular Exam: Present: regular rate, normal rhythm, normal heart sounds. Absent: systolic murmur, diastolic murmur, rubs, gallop, clicks GI/Abdominal exam: Present: soft, normal bowel sounds. Absent: distended, tenderness, guarding, rebound, rigid Extremities exam: Present: normal inspection, full ROM, normal capillary refill. Absent: tenderness, pedal edema, joint swelling, calf tenderness Back exam: Present: normal inspection Neurological exam: Present: alert, oriented X3, CN II-XII intact Psychiatric exam: Present: normal affect, normal mood Skin exam: Present: warm, dry, intact, normal color. Absent: rash Course Vital Signs 07/06/24 07/06/24 07/06/24 07:30 09:22 09:28 Temperature 98.2 F Pulse Rate 83 78 78 Respiratory 20 Rate Blood Pressure 145/77 O2 Sat by Pulse 95 Oximetry 07/06/24 07/06/24 07/06/24 09:35 10:23 11:02 Temperature 98.1 F Pulse Rate 80 87 Respiratory 20 18 20 Rate Blood Pressure 160/75 153/69 O2 Sat by Pulse 95 94 L 94 L Oximetry 07/06/24 12:30 Temperature Pulse Rate 82 Respiratory 20 Rate Blood Pressure 143/72 O2 Sat by Pulse 95 Oximetry Medical Decision Making - Medical Decision Making Was pt. sent in by a medical professional or institution (, PA, CLINIC RECEPTIONIST, urgent care, hospital, or long term...) When possible be specific @ -[No] Did you speak to anyone other than the patient for history (EMS, parent, family, police, friend...)? What history was obtained from this source @ -[No] Did you review nursing and triage notes (agree or disagree)? Why? @ -[I reviewed and agree with nursing and triage notes] Were old charts reviewed (outside hosp., previous admission, EMS record, old EKG, old radiological studies, urgent care reports/EKG's, long term records)? Report findings @ -[No old charts were reviewed] Differential Diagnosis (chest pain, altered mental status, abdominal pain women, abdominal pain men, vaginal bleeding, weakness, fever, dyspnea, syncope, headache, dizziness, GI bleed, back pain, seizure, CVA, palpatations, mental health, musculoskeletal)? @ -[not applicable] EKG interpreted by me (3pts min.). @ -[As above] X-rays interpreted by me (1pt min.). @ -[None done] CT interpreted by me (1pt min.). @ -[None done] U/S interpreted by me (1pt. min.). @ -[None done] What testing was considered but not performed or refused? (CT, X-rays, U/S, labs)? Why? @ -[None] What meds were considered but not given or refused? Why? @ -[None] Did you discuss the management of the patient with other professionals (professionals i.e. , PA, CLINIC RECEPTIONIST, lab, RT, psych nurse, social media campaign manager, real estate professional, teacher, ethics officer, child support case officer)? Give summary @ -[No] Was smoking cessation discussed for >3mins.? @ -[No] Was critical care preformed (if so, how long)? @ -[No] Were there social determinants of health that impacted care today? How? (Homelessness, low income, unemployed, alcoholism, drug addiction, sauceda sportation, low edu. Level, literacy, decrease access to med. care, fpc, rehab)? @ -[No] Was there de-escalation of care discussed even if they declined (Discuss DNR or withdrawal of care, Hospice)? DNR status @ -[No] What co-morbidities impacted this encounter? (DM, HTN, Smoking, COPD, CAD, Canc er, CVA, ARF, Chemo, Hep., AIDS, mental health diagnosis, sleep apnea, morbid obesity)? @ -[None] Was patient admitted / discharged? Hospital course, mention meds given and route, prescriptions, significant lab abnormalities, going to OR and other pertinent info. @ -[hospital course] Undiagnosed new problem with uncertain prognosis? @ -[No] Drug Therapy requiring intensive monitoring for toxicity (Heparin, Nitro, Insulin, Cardizem)? @ -[No] Were any procedures done? @ -[No] Diagnosis/symptom? @ -[default] Acute, or Chronic, or Acute on Chronic? @ -[default] Uncomplicated (without systemic symptoms) or Complicated (systemic symptoms)? @ -[default] Side effects of treatment? @ -[No] Exacerbation, Progression, or Severe Exacerbation? @ -[No] Poses a threat to life or bodily function? How? (Chest pain, [place], [place], pneumonia, PE, COPD, DKA, ARF, appy, cholecystitis, CVA, Diverticulitis, Homicidal, Suicidal, threat to staff... and all critical care pts) @ -[No] - Lab Data Result diagrams: 07/06/24 13:01 07/06/24 13:01 Lab Results 07/06/24 07/06/24 07/06/24 Range/Units 13:01 13:01 13:01 WBC 8.7 (3.8-10.6) k/uL RBC 4.66 (4.30-5.90) m/uL Hgb 12.2 L (13.0-17.5) gm/dL Hct 40.2 (39.0-53.0) % MCV 86.3 (80.0-100.0) fL MCH 26.2 (25.0-35.0) pg MCHC 30.4 L (31.0-37.0) g/dL RDW 18.8 H (11.5-15.5) % Plt Count 444 (150-450) k/uL MPV 7.8 Neutrophils % 88 % Lymphocytes % 6 % Monocytes % 4 % Eosinophils % 1 % Basophils % 0 % Neutrophils # 7.7 (1.3-7.7) k/uL Lymphocytes # 0.6 L (1.0-4.8) k/uL Monocytes # 0.3 (0-1.0) k/uL Eosinophils # 0.1 (0-0.7) k/uL Basophils # 0.0 (0-0.2) k/uL Hypochromasia Marked Anisocytosis Slight PT 10.9 (10.0-12.5) sec INR 1.0 (<1.2) APTT 26.6 (22.0-30.0) sec Sodium 134 L (137-145) mmol/L Potassium 4.6 (3.5-5.1) mmol/L Chloride 97 L (98-107) mmol/L Carbon Dioxide 32 H (22-30) mmol/L Anion Gap 5 mmol/L BUN 40 H (9-20) mg/dL Creatinine 0.62 L (0.66-1.25) mg/dL Est GFR (CKD-EPI)AfAm >90 (>60 ml/min/1.73 sqM) Est GFR (CKD-EPI)NonAf >90 (>60 ml/min/1.73 sqM) Glucose 170 H (74-99) mg/dL Plasma Lactic Acid Mike (0.7-2.0) mmol/L Calcium 8.6 (8.4-10.2) mg/dL Total Bilirubin 0.9 (0.2-1.3) mg/dL AST 19 (17-59) U/L ALT 19 (4-49) U/L Alkaline Phosphatase 99 (38-126) U/L Troponin I (0.000-0.034) ng/mL NT-Pro-B Natriuret Pep 3370 pg/mL Total Protein 6.0 L (6.3-8.2) g/dL Albumin 3.0 L (3.5-5.0) g/dL 07/06/24 07/06/24 Range/Units 13:01 13:01 WBC (3.8-10.6) k/uL RBC (4.30-5.90) m/uL Hgb (13.0-17.5) gm/dL Hct (39.0-53.0) % MCV (80.0-100.0) fL MCH (25.0-35.0) pg MCHC (31.0-37.0) g/dL RDW (11.5-15.5) % Plt Count (150-450) k/uL MPV Neutrophils % % Lymphocytes % % Monocytes % % Eosinophils % % Basophils % % Neutrophils # (1.3-7.7) k/uL Lymphocytes # (1.0-4.8) k/uL Monocytes # (0-1.0) k/uL Eosinophils # (0-0.7) k/uL Basophils # (0-0.2) k/uL Hypochromasia Anisocytosis PT (10.0-12.5) sec INR (<1.2) APTT (22.0-30.0) sec Sodium (137-145) mmol/L Potassium (3.5-5.1) mmol/L Chloride (98-107) mmol/L Carbon Dioxide (22-30) mmol/L Anion Gap mmol/L BUN (9-20) mg/dL Creatinine (0.66-1.25) mg/dL Est GFR (CKD-EPI)AfAm (>60 ml/min/1.73 sqM) Est GFR (CKD-EPI)NonAf (>60 ml/min/1.73 sqM) Glucose (74-99) mg/dL Plasma Lactic Acid Mike 0.8 (0.7-2.0) mmol/L Calcium (8.4-10.2) mg/dL Total Bilirubin (0.2-1.3) mg/dL AST (17-59) U/L ALT (4-49) U/L Alkaline Phosphatase (38-126) U/L Troponin I <0.012 (0.000-0.034) ng/mL NT-Pro-B Natriuret Pep pg/mL Total Protein (6.3-8.2) g/dL Albumin (3.5-5.0) g/dL Disposition Clinical Impression: COPD (chronic obstructive pulmonary disease), Weakness Disposition: ADMITTED IP TO THIS HOSP Condition: Stable Is patient prescribed a controlled substance at d/c from ED?: No Referrals: Fidencio Barrientos MD [Primary Care Provider] - 1-2 days Time of Disposition: 15:10 Decision to Admit Reason: Admit from EC Decision Date: 07/06/24 Decision Time: 15:11
[2024-07-06] MEDS: HYDROcodone/APAP 10-325MG 1 EACH TAB PO ONE (10:20)
--- NOTE | 2024-07-06 12:07 | XR ---
EXAMINATION TYPE: XR chest 2V DATE OF EXAM: 07/06/2024 11:58 AM COMPARISON: Chest radiographs from 06/06/2024, CT chest 05/30/2024 TECHNIQUE: XR chest 2V Frontal and lateral views of the chest. CLINICAL INDICATION:Male, 74 years old with history of difficulty breathing; FINDINGS: Lungs/Pleura: No pleural effusion or pneumothorax. Background chronic emphysematous and pulmonary fib rotic changes redemonstrated bilaterally. Right basilar airspace opacities. Similar left perihilar op acities. Pulmonary vascularity: Unremarkable. Heart/mediastinum: Cardiomediastinal silhouette is unremarkable. Musculoskeletal: No acute osseous pathology. High riding bilateral humeral head suggesting chronic ro tator cuff tears. Underlying scoliosis. IMPRESSION: Similar right basilar and left perihilar opacities on background emphysematous and pulmonary fibrotic changes. May represent infiltrates versus masses. Consider further evaluation with CT as clinically indicated. [facility], , 07/06/2024 12:04 PM
[2024-07-06 13:08] LABS: Anisocytosis Slight; Basophils % (A) 0 %; Eosinophils # (A) 0.1 k/uL (0-0.7); Eosinophils % (A) 1 %; HCT 40.2 % (39.0-53.0); HGB 12.2 gm/dL (13.0-17.5); Hypochromasia Marked; Lymphocytes # (A) 0.6 k/uL (1.0-4.8); Lymphocytes % (A) 6 %; MCH 26.2 pg (25.0-35.0); MCHC 30.4 g/dL (31.0-37.0); MCV 86.3 fL (80.0-100.0); Mean Platelet Volume 7.8; Monocytes # (A) 0.3 k/uL (0-1.0); Monocytes % (A) 4 %; Neutrophils # (A) 7.7 k/uL (1.3-7.7); Neutrophils % (A) 88 %; Platelet Count 444 k/uL (150-450); RBC 4.66 m/uL (4.30-5.90); RDW 18.8 % (11.5-15.5); WBC 8.7 k/uL (3.8-10.6)
[2024-07-06 13:26] LABS: ALT 19 U/L (4-49); AST 19 U/L (17-59); African American GFR (CKD) >90 (>60 ml/min/1.73 sqM); Alkaline Phosphatase 99 U/L (38-126); Anion Gap 5 mmol/L; Blood Urea Nitrogen 40 mg/dL (9-20); Calcium 8.6 mg/dL (8.4-10.2); Carbon Dioxide 32 mmol/L (22-30); Chloride 97 mmol/L (98-107); Glucose 170 mg/dL (74-99); Non-African American GFR(CKD) >90 (>60 ml/min/1.73 sqM); Partial Thromboplastin Time 26.6 sec (22.0-30.0); Potassium 4.6 mmol/L (3.5-5.1); Prothrombin Time 10.9 sec (10.0-12.5); Sodium 134 mmol/L (137-145); Total Bilirubin 0.9 mg/dL (0.2-1.3)
[2024-07-06 13:35] LABS: NT-Pro-B-Type Natriuretic Pept 3370 pg/mL
[2024-07-06] MEDS ORDERED: NALOXONE 0.4 MG/ML 1 ML VIAL IV PRN (14:44)
[2024-07-06] MEDS: IPRATROPIUM-ALBUTEROL 3 ML NEB INHALATION SCH (15:26)
[2024-07-06 16:21] LABS: Influenza A Not Detected (Not Detectd); Influenza B Not Detected (Not Detectd); RSV Not Detected (Not Detectd)
[2024-07-06] MEDS ORDERED: NITROGLYCERIN SL TABS 0.4 MG TAB SUBLINGUAL PRN (20:51)
[2024-07-06] MEDS: PRIMIDONE 50 MG TAB PO SCH (21:38)
[2024-07-06] MEDS: MELATONIN 5 MG TABLET PO SCH (21:38)
[2024-07-06] MEDS: GABAPENTIN 300 MG CAP PO SCH (21:39)
[2024-07-06] MEDS: HYDROcodone/APAP 10-325MG 1 EACH TAB PO PRN (21:39)
[2024-07-06] MEDS: BACLOFEN 10 MG TAB PO SCH (21:39)
[2024-07-06] MEDS: traZODone HCL 100 MG TAB PO SCH (21:39)
[2024-07-07] MEDS ORDERED: HYDROcodone/APAP 10-325MG 1 EACH TAB PO SCH
[2024-07-07] MEDS: SYMBICORT 160-4.5 MCG INHALER INHALATION SCH (07:30)
[2024-07-07] MEDS: IPRATROPIUM-ALBUTEROL 3 ML NEB INHALATION SCH (07:33)
[2024-07-07 08:24] LABS: Basophils # (A) 0.04 X 10*3/uL (0.00-0.10); Basophils % (A) 0.5 %; Eosinophils # (A) 0.06 X 10*3/uL (0.04-0.35); Eosinophils % (A) 0.7 %; HCT 38.1 % (39.6-50.0); HGB 11.3 g/dL (13.0-17.0); Lymphocytes # (A) 0.62 X 10*3/uL (0.90-5.00); Lymphocytes % (A) 7.2 %; MCH 26.3 pg (27.0-32.0); MCHC 29.7 g/dL (32.0-37.0); MCV 88.8 FL (80.0-97.0); Mean Platelet Volume 10.5 FL (9.5-12.2); Monocytes # (A) 0.51 X 10*3/uL (0.20-1.00); Monocytes % (A) 5.9 %; NRBC Per 100 WBC 0 X 10*3/uL (0.00-0.01); Neutrophils # (A) 7.36 X 10*3/uL (1.80-7.70); Platelet Count 437 X 10*3/uL (140-440); RBC 4.29 X 10*6/uL (4.40-5.60); RDW 20.5 % (11.5-14.5); WBC 8.65 X 10*3/uL (4.50-10.00)
[2024-07-07] MEDS: amLODIPine 5 MG TAB PO SCH (09:08)
[2024-07-07] MEDS: predniSONE 20 MG TAB PO SCH (09:08)
[2024-07-07] MEDS: ATORVASTATIN 80 MG TAB PO SCH (09:08)
[2024-07-07] MEDS: DULoxetine HCL 60 MG CAPSULE.DR PO SCH (09:08)
[2024-07-07] MEDS: CLOPIDOGREL 75 MG TAB PO SCH (09:08)
[2024-07-07] MEDS: METOPROLOL SUCCINATE (ER) 25 MG TAB.ER.24H PO SCH (09:08)
[2024-07-07] MEDS: FERROUS SULFATE 325 MG TAB PO SCH (09:09)
[2024-07-07] MEDS: ASPIRIN 81 MG PO SCH (09:09)
[2024-07-07] MEDS: TAMSULOSIN 0.4 MG CAP.ER.24H PO SCH (09:09)
[2024-07-07] MEDS: MULTIVITAMINS, THERA 1 EACH TAB PO SCH (09:09)
[2024-07-07] MEDS: ESCITALOPRAM 20 MG TAB PO SCH (09:09)
[2024-07-07] MEDS: SIMETHICONE 80 MG CHEWABLE PO SCH (09:09)
[2024-07-07] MEDS: PANTOPRAZOLE 40 MG TABLET PO SCH (09:09)
[2024-07-07 09:17] LABS: BUN/Creat Ratio 46.71 Ratio (12.00-20.00); Blood Urea Nitrogen 32.7 mg/dL (9.0-27.0); Calcium 8.4 mg/dL (8.7-10.3); Carbon Dioxide 28.7 mmol/L (21.6-31.8); Chloride 102 mmol/L (96-109); Glucose 139 mg/dL (70-110); Potassium 4.3 mmol/L (3.5-5.5); Sodium 140 mmol/L (135-145)
--- NOTE | 2024-07-07 10:03 | P.HPIM ---
History of Present Illness H&P Date: 07/07/24 Baldev Joyce, is a 74-year-old male who presented to [facility] emergency room with a chief complaint of worsening shortness of breath, generalized weakness, O2 desaturation, and faulty oxygen concentrator at home. He was evaluated in the emergency room vital examination on presentation revealed a temperature of 98.2 pulse 83 respiration 20 blood pressure 145/77 pulse ox 95% on 5 L nasal cannula Laboratory data revealed a white blood count of 8.7 hemoglobin 12.2 platelet count 444 sodium 134 potassium 4.6 chloride 97 CO2 32 BUN 40 creatinine 0.62 Testing in the emergency room revealed chest x-ray showing similar right basilar and left perihilar opacities on background emphysematous and pulmonary fibrotic changes may represent infiltrates versus masses consider further evaluation with CT Patient was admitted to medical floor for further evaluation and treatment patient will be admitted and pulmonary services consulted patient started on steroids Past medical history is significant for COPD, hyperlipidemia, hypertension, [place] ex-smoker, peripheral vascular disease with previous left AKA and left upper lung mass suspicious for bronchogenic carcinoma On review of systems patient is alert and oriented x 3. Patient denies chest pain or shortness of breath. Patient denies any urinary burning or frequency. 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 knee wound + FOR MRSA. History of high left above-knee amputation done approximately 2009. Last Myocardial Infarction Date:: 2003 History of Any Multi-Drug Resistant Organisms: Acinetobacter (MDRO), MRSA Date of last positivie culture/infection: 04/02/16 MDRO Source:: LT KNEE WOUND Past Surgical History: Heart Catheterization With Stent, Orthopedic Surgery Additional Past Surgical History / Comment(s): STENTS TO LEFT GROIN, LEFT ABOVE THE KNEE AMPUTATION, unsuccessful revascularization left leg, shoulder surgery, surgical debridement of necrotic tissue left scrotal area, LT AKA 03/03/16. left testicle removed. heart stent x1 broken left hip Past Anesthesia/Blood Transfusion Reactions: No Reported Reaction Date of Last Stent Placement:: 2006 Past Psychological History: Depression Additional Psychological History / Comment(s): . Smoking Status: Former smoker Past Alcohol Use History: None Reported Additional Past Alcohol Use History / Comment(s): Patient is a ex-smoker one and a half packs of cigarettes per day for 52 years. He smokes marijuana on a daily basis and has done so for many decades. He denies any alcohol use. He lives at home with his . 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 He denies any service. Patient use to vape daily but quit 4-6 months ago. Past Drug Use History: Marijuana Additional Drug Use History / Comment(s): medical marijuana card-uses daily - Past Family History Sister(s) History Unknown: Yes Family Medical History: Cancer Additional Family Medical History / Comment(s): double mastectomy, still surviving Father History Unknown: Yes Family Medical History: No Reported History Mother History Unknown: Yes Family Medical History: No Reported History Additional Family Medical History / Comment(s): hypoglycemia Medications and Allergies Home Medications Medication Instructions Recorded Confirmed Type Aspirin 81 mg PO DAILY 01/14/14 07/06/24 History DULoxetine HCL [Cymbalta] 60 mg PO DAILY 01/14/14 07/06/24 History Pantoprazole Sodium [Protonix] 40 mg PO DAILY 06/13/18 07/06/24 History amLODIPine [Norvasc] 5 mg PO DAILY 06/13/18 07/06/24 History Atorvastatin [Lipitor] 80 mg PO DAILY #30 tab 07/20/20 07/06/24 Rx Metoprolol Succinate (ER) [Toprol 25 mg PO DAILY #30 tab.er.24h 07/20/20 07/06/24 Rx XL] Albuterol Sulfate [Proair Hfa] 2 puff INHALATION RT-QID PRN 08/29/21 07/06/24 History Tamsulosin [Flomax] 0.4 mg PO DAILY 08/29/21 07/06/24 History Primidone [Mysoline] 25 mg PO HS 07/12/22 07/06/24 History Escitalopram [Lexapro] 20 mg PO DAILY 03/23/23 07/06/24 History Fluticasone/Umeclidin/Vilanter 1 puff INHALATION RT-DAILY 03/23/23 07/06/24 History [Trelegy Ellipta 200-62.5-25] Ipratropium-Albuterol Nebulize 3 ml INHALATION RT-QID 30 Days 04/21/23 07/06/24 Rx [Duoneb 0.5 mg-3 mg/3 ml Soln] #120 each Ferrous Sulfate [Feosol] 325 mg PO DAILY 30 Days #30 tab 06/05/23 07/06/24 Rx Nitroglycerin Sl Tabs [Nitrostat] 0.4 mg SUBLINGUAL Q5M PRN 30 Days 06/05/23 07/06/24 Rx #25 tab Baclofen 10 mg PO HS 05/29/24 07/06/24 History Clopidogrel [Plavix] 75 mg PO DAILY 05/29/24 07/06/24 History Lactulose [Constulose] 20 gm PO Q48H PRN 05/29/24 07/06/24 History Melatonin 10 mg PO HS 05/29/24 07/06/24 History Multivitamins, Thera [Multivitamin 1 tab PO DAILY 05/29/24 07/06/24 History (formulary)] Simethicone 180 mg PO DAILY 05/29/24 07/06/24 History traZODone HCL [Desyrel] 100 mg PO HS 05/29/24 07/06/24 History Gabapentin 600 mg PO TID 3 Days #9 tab 06/06/24 07/06/24 Rx HYDROcodone/APAP 10-325MG [[place] 1 tab PO Q6HR 3 Days #12 tab 06/06/24 07/06/24 Rx 10-325] Allergies Allergy/AdvReac Type Severity Reaction Status Date / Time azithromycin [From Zithromax] Allergy Rash/Hives Verified 07/06/24 11:07 Physical Exam Vitals: Vital Signs Temp Pulse Pulse Resp BP BP BP 07/07/24 07:39 74 07/07/24 07:30 74 07/07/24 07:06 99.4 F 79 17 160/83 07/07/24 04:03 76 07/07/24 03:54 78 07/07/24 00:45 97.6 F 85 19 138/67 07/07/24 00:21 76 07/07/24 00:10 76 07/06/24 21:06 153/84 07/06/24 20:52 76 07/06/24 20:43 74 07/06/24 20:08 74 23 194/83 07/06/24 19:41 97.5 F L 64 32 H 184/69 07/06/24 18:20 97.6 F 72 20 169/84 07/06/24 17:20 90 18 143/72 07/06/24 12:30 82 20 143/72 07/06/24 11:02 20 07/06/24 10:23 87 18 153/69 07/06/24 09:35 98.1 F 80 20 160/75 07/06/24 09:28 78 07/06/24 09:22 78 Pulse Ox 07/07/24 07:39 07/07/24 07:30 07/07/24 07:06 93 L 07/07/24 04:03 07/07/24 03:54 07/07/24 00:45 96 07/07/24 00:21 07/07/24 00:10 07/06/24 21:06 07/06/24 20:52 07/06/24 20:43 94 L 07/06/24 20:08 96 07/06/24 19:41 07/06/24 18:20 95 07/06/24 17:20 97 07/06/24 12:30 95 07/06/24 11:02 94 L 07/06/24 10:23 94 L 07/06/24 09:35 95 07/06/24 09:28 07/06/24 09:22 Intake and Output 07/06/24 07/07/24 07/07/24 22:59 06:59 14:59 Intake Total 480 120 Output Total 800 260 Balance -320 -260 120 Intake: Oral 480 120 Output: Urine 800 260 Uretheral ([place]) 250 Post Void Residual 0 Other: Voiding Method Indwelling Catheter # Voids 1 Weight 53.07 kg In general patient is alert and oriented x 3 in no distress HEENT head normocephalic and atraumatic Neck is supple no JVD no goiter no lymphadenopathy no carotid bruit Chest examination is clear to auscultation no crackles no wheezing Cardiac exam reveals regular heart sounds S1 and S2 no gallops no murmurs Abdomen is soft nontender no organomegaly with normal bowel sounds Extremity exam reveals no edema no cyanosis or clubbing Neurological examination reveals no gross focal deficits Results CBC & Chem 7: 07/07/24 04:32 07/07/24 04:32 Labs: Abnormal Lab Results - Last 24 Hours (Table) 07/06/24 07/06/24 07/07/24 Range/Units 13:01 13:01 04:32 RBC 4.29 L (4.40-5.60) X 10*6/uL Hgb 12.2 L 11.3 L (13.0-17.5) gm/dL Hct 38.1 L (39.6-50.0) % MCH 26.3 L (27.0-32.0) pg MCHC 30.4 L 29.7 L (31.0-37.0) g/dL RDW 18.8 H 20.5 H (11.5-15.5) % Immature Gran # 0.06 H (0.00-0.04) X 10*3/uL Lymphocytes # 0.6 L 0.62 L (1.0-4.8) k/uL Sodium 134 L (137-145) mmol/L Chloride 97 L (98-107) mmol/L Carbon Dioxide 32 H (22-30) mmol/L BUN 40 H (9-20) mg/dL Creatinine 0.62 L (0.66-1.25) mg/dL BUN/Creatinine Ratio (12.00-20.00) Ratio Glucose 170 H (74-99) mg/dL Calcium (8.7-10.3) mg/dL Total Protein 6.0 L (6.3-8.2) g/dL Albumin 3.0 L (3.5-5.0) g/dL 07/07/24 Range/Units 04:32 RBC (4.40-5.60) X 10*6/uL Hgb (13.0-17.5) gm/dL Hct (39.6-50.0) % MCH (27.0-32.0) pg MCHC (31.0-37.0) g/dL RDW (11.5-15.5) % Immature Gran # (0.00-0.04) X 10*3/uL Lymphocytes # (1.0-4.8) k/uL Sodium (137-145) mmol/L Chloride (98-107) mmol/L Carbon Dioxide (22-30) mmol/L BUN 32.7 H (9-20) mg/dL Creatinine (0.66-1.25) mg/dL BUN/Creatinine Ratio 46.71 H (12.00-20.00) Ratio Glucose 139 H (74-99) mg/dL Calcium 8.4 L (8.7-10.3) mg/dL Total Protein (6.3-8.2) g/dL Albumin (3.5-5.0) g/dL Thrombosis Risk Factor Assmnt - Choose All That Apply Each Risk Factor Represents 3 Points: Age 75 years or older Thrombosis Risk Factor Assessment Total Risk Factor Score: 3 Thrombosis Risk Factor Assessment Level: Moderate Risk Assessment and Plan Assessment: 1. Shortness of breath secondary to acute on chronic COPD and acute on chronic hypoxic respiratory failure 2. History of bronchogenic carcinoma. Patient did receive outpatient PET scan and evaluated by pulmonary services 3. History of severe peripheral vascular disease with previous AKA 4. Chronic hypoxic respiratory failure maintained on home O2 5. History of tobacco use 6. History of depression 7. History of hyperlipidemia 8. History of coronary artery disease with previous angioplasty and stent placement 9. History of anemia maintained on iron supplements 10. History of degenerative disc disease maintained on pain control DVT prophylaxis Lovenox. GI prophylax Protonix Patient maintained on steroids pulmonary services consulted Time with Patient: Greater than 30 (Greater than 60% of the total time spent in counseling and coordination of care)
--- NOTE | 2024-07-07 12:08 | P.CNPUL ---
History of Present Illness Consult date: 07/07/24 Requesting physician: Fidencio Barrientos Reason for consult: dyspnea Chief complaint: Home oxygen not working, weakness History of present illness: This is a very cachectic weak 74-year-old male patient with a known history of multiple lung lesions suspicious for bronchogenic carcinoma. He had been too ill to keep follow-up appointments. He did have a previous PET scan from August 2023 that showed a left upper lobe medial mass measuring 31 x 24 mm with metabolic activity compatible with malignancy. He did not keep any follow-up appointments after that time. A more recent CAT scan of his last admission May 30, 2024 showed new bilateral lower lung masses with enlarging hilar adenopathy. He was due for a repeat PET scan however presented here to the emergency room yesterday because his home oxygen tank was broken and he was getting hypoxemic. Prior to that he had remained extremely weak. Apparently EMS had been called to the house several times to help him up off the toilet. He is seen today in consultation on the regular medical floor. He is resting in bed. He is alert. He is extremely weak. Extremely cachectic. Body mass index of 14.6 kg/m. Chest x-ray reveals similar right basilar and left perihilar opacities on background of a somatic changes and pulmonary fibrotic changes. White count 8.6. Hemoglobin 11.3. Platelets 437. Sodium 140. Potassium 4.3. Bicarb 29. BUN 33. Creatinine 0.7. Glucose 139. Viral screen was negative. He is currently maintaining O2 saturations in the 90s on 5 L/min per nasal cannula which is his home setting. He has been afebrile. Hemodynamically stable. Review of Systems REVIEW OF SYSTEMS: CONSTITUTIONAL: Positive for generalized weakness. Positive for significant weight loss. EYES: Denies change in vision. EARS, NOSE, MOUTH, THROAT: Denies headaches, denies sore throat. CARDIOVASCULAR: Denies chest pain, palpitations or syncopal episodes. RESPIRATORY: Positive for shortness of breath, no cough, congestion or hemoptysis. GASTROINTESTINAL: Denies change in appetite, denies abdominal pain GENITOURINARY: Denies hematuria, denies infections. MUSKULOSKELETAL: Denies pain, denies swelling. INTEGUMENTARY: Denies rash, denies eczema. NEUROLOGICAL: Denies recent memory loss, no recent seizure activity. PSYCHIATRIC: Denies anxiety, denies depression. HEMATOLOGIC/LYMPHATIC: Denies anemia, denies enlarged lymph nodes. 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 knee wound + FOR MRSA. History of high left above-knee amputation done approximately 2009. Last Myocardial Infarction Date:: 2003 History of Any Multi-Drug Resistant Organisms: Acinetobacter (MDRO), MRSA Date of last positivie culture/infection: 04/02/16 MDRO Source:: LT KNEE WOUND Past Surgical History: Heart Catheterization With Stent, Orthopedic Surgery Additional Past Surgical History / Comment(s): STENTS TO LEFT GROIN, LEFT ABOVE THE KNEE AMPUTATION, unsuccessful revascularization left leg, shoulder surgery, surgical debridement of necrotic tissue left scrotal area, LT AKA 03/03/16. left testicle removed. heart stent x1 broken left hip Past Anesthesia/Blood Transfusion Reactions: No Reported Reaction Date of Last Stent Placement:: 2006 Past Psychological History: Depression Additional Psychological History / Comment(s): . Smoking Status: Former smoker Past Alcohol Use History: None Reported Additional Past Alcohol Use History / Comment(s): Patient is a ex-smoker one and a half packs of cigarettes per day for 52 years. He smokes marijuana on a daily basis and has done so for many decades. He denies any alcohol use. He lives at home with his . 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 He denies any service. Patient use to vape daily but quit 4-6 months ago. Past Drug Use History: Marijuana Additional Drug Use History / Comment(s): medical marijuana card-uses daily - Past Family History Sister(s) History Unknown: Yes Family Medical History: Cancer Additional Family Medical History / Comment(s): double mastectomy, still surviving Father History Unknown: Yes Family Medical History: No Reported History Mother History Unknown: Yes Family Medical History: No Reported History Additional Family Medical History / Comment(s): hypoglycemia Medications and Allergies Home Medications Medication Instructions Recorded Confirmed Type Aspirin 81 mg PO DAILY 01/14/14 07/06/24 History DULoxetine HCL [Cymbalta] 60 mg PO DAILY 01/14/14 07/06/24 History Pantoprazole Sodium [Protonix] 40 mg PO DAILY 06/13/18 07/06/24 History amLODIPine [Norvasc] 5 mg PO DAILY 06/13/18 07/06/24 History Atorvastatin [Lipitor] 80 mg PO DAILY #30 tab 07/20/20 07/06/24 Rx Metoprolol Succinate (ER) [Toprol 25 mg PO DAILY #30 tab.er.24h 07/20/20 07/06/24 Rx XL] Albuterol Sulfate [Proair Hfa] 2 puff INHALATION RT-QID PRN 08/29/21 07/06/24 History Tamsulosin [Flomax] 0.4 mg PO DAILY 08/29/21 07/06/24 History Primidone [Mysoline] 25 mg PO HS 07/12/22 07/06/24 History Escitalopram [Lexapro] 20 mg PO DAILY 03/23/23 07/06/24 History Fluticasone/Umeclidin/Vilanter 1 puff INHALATION RT-DAILY 03/23/23 07/06/24 History [Trelegy Ellipta 200-62.5-25] Ipratropium-Albuterol Nebulize 3 ml INHALATION RT-QID 30 Days 04/21/23 07/06/24 Rx [Duoneb 0.5 mg-3 mg/3 ml Soln] #120 each Ferrous Sulfate [Feosol] 325 mg PO DAILY 30 Days #30 tab 06/05/23 07/06/24 Rx Nitroglycerin Sl Tabs [Nitrostat] 0.4 mg SUBLINGUAL Q5M PRN 30 Days 06/05/23 07/06/24 Rx #25 tab Baclofen 10 mg PO HS 05/29/24 07/06/24 History Clopidogrel [Plavix] 75 mg PO DAILY 05/29/24 07/06/24 History Lactulose [Constulose] 20 gm PO Q48H PRN 05/29/24 07/06/24 History Melatonin 10 mg PO HS 05/29/24 07/06/24 History Multivitamins, Thera [Multivitamin 1 tab PO DAILY 05/29/24 07/06/24 History (formulary)] Simethicone 180 mg PO DAILY 05/29/24 07/06/24 History traZODone HCL [Desyrel] 100 mg PO HS 05/29/24 07/06/24 History Gabapentin 600 mg PO TID 3 Days #9 tab 06/06/24 07/06/24 Rx HYDROcodone/APAP 10-325MG [[place] 1 tab PO Q6HR 3 Days #12 tab 06/06/24 07/06/24 Rx 10-325] Allergies Allergy/AdvReac Type Severity Reaction Status Date / Time azithromycin [From Zithromax] Allergy Rash/Hives Verified 07/06/24 11:07 Physical Exam Vitals: Vital Signs Temp Pulse Pulse Resp BP BP BP 07/07/24 11:13 72 07/07/24 11:00 70 07/07/24 07:39 74 07/07/24 07:30 74 07/07/24 07:06 99.4 F 79 17 160/83 07/07/24 04:03 76 07/07/24 03:54 78 07/07/24 00:45 97.6 F 85 19 138/67 07/07/24 00:21 76 07/07/24 00:10 76 07/06/24 21:06 153/84 07/06/24 20:52 76 07/06/24 20:43 74 07/06/24 20:08 74 23 194/83 07/06/24 19:41 97.5 F L 64 32 H 184/69 07/06/24 18:20 97.6 F 72 20 169/84 07/06/24 17:20 90 18 143/72 07/06/24 12:30 82 20 143/72 Pulse Ox 07/07/24 11:13 07/07/24 11:00 07/07/24 07:39 07/07/24 07:30 07/07/24 07:06 93 L 07/07/24 04:03 07/07/24 03:54 07/07/24 00:45 96 07/07/24 00:21 07/07/24 00:10 07/06/24 21:06 07/06/24 20:52 07/06/24 20:43 94 L 07/06/24 20:08 96 07/06/24 19:41 07/06/24 18:20 95 07/06/24 17:20 97 07/06/24 12:30 95 Intake and Output 07/06/24 07/07/2407/07/25 22:59 06:59 14:59 Intake Total 480 120 Output Total 800 260 Balance -320 -260 120 Intake: Oral 480 120 Output: Urine 800 260 Uretheral (Rus[place]) 250 Post Void Residual 0 Other: Voiding Method Indwelling Catheter # Voids 1 Weight 53.07 kg GENERAL EXAM: Alert, extremely frail, cachectic 74-year-old male, on 5 L nasal cannula, fairly comfortable in no apparent distress. HEAD: Normocephalic. EYES: Normal reaction of pupils, equal size. NOSE: Clear with pink turbinates. THROAT: No erythema or exudates. NECK: No masses, no JVD. CHEST: No chest wall deformity. LUNGS: Equal air entry with bilateral scattered rhonchi. CVS: S1 and S2 normal with no audible murmur, regular rhythm. ABDOMEN: No hepatosplenomegaly, normal bowel sounds, no guarding or rigidity. SPINE: No scoliosis or deformity SKIN: No rashes CENTRAL NERVOUS SYSTEM: No focal deficits, tone is normal in all 4 extremities. EXTREMITIES: There is no peripheral edema. No clubbing, no cyanosis. Peripheral pulses are intact. Results - Laboratory Findings CBC and BMP: 07/07/24 04:32 07/07/24 04:32 PT/INR, D-dimer PT 10.9 sec (10.0-12.5) 07/06/24 13:01 INR 1.0 (<1.2) 07/06/24 13:01 Abnormal lab findings: Abnormal Labs 07/06/24 07/06/24 07/07/24 13:01 13:01 04:32 RBC 4.29 L Hgb 12.2 L 11.3 L Hct 38.1 L MCH 26.3 L MCHC 30.4 L 29.7 L RDW 18.8 H 20.5 H Immature Gran # 0.06 H Lymphocytes # 0.6 L 0.62 L Sodium 134 L Chloride 97 L Carbon Dioxide 32 H BUN 40 H Creatinine 0.62 L BUN/Creatinine Ratio Glucose 170 H Calcium Total Protein 6.0 L Albumin 3.0 L 07/07/24 04:32 RBC Hgb Hct MCH MCHC RDW Immature Gran # Lymphocytes # Sodium Chloride Carbon Dioxide BUN 32.7 H Creatinine BUN/Creatinine Ratio 46.71 H Glucose 139 H Calcium 8.4 L Total Protein Albumin - Diagnostic Findings Chest x-ray: image reviewed Assessment and Plan Assessment: Acute on chronic hypoxemic respiratory failure secondary to broken equipment at home Extreme weakness and debility secondary to progressive suspected bronchogenic carcinoma throughout the lungs Known history of lung masses suspected bronchogenic carcinoma. He did have a previous PET scan from August 2023 that showed a left upper lobe medial mass measuring 31 x 24 mm with metabolic activity compatible with malignancy. He did not keep any follow-up appointments after that time. A more recent CAT scan of his last admission here in May 2024 showed new bilateral lower lung masses with enlarging hilar adenopathy. Was to have a follow-up PET scan today but ended up in the emergency room yesterday Very severe chronic obstructive pulmonary disease, with an FEV1 24% of predicted Hyperglycemia, likely steroid-induced, improved, currently on Lantus Hyperkalemia History of coronary artery disease, with previous PCI/stent History of hyperlipidemia Hypertension History of peripheral vascular disease History of prior left AKA Chronic anemia, hemoglobin stable History of GERD with esophagitis History of diverticulosis Former tobacco dependence Severe protein calorie malnutrition with a BMI of 13.7 kg/m Marijuana smoker Poor overall functional performance due to the above-mentioned multiple comorbidities and suspected advanced lung cancer Plan: The patient was seen and evaluated Imaging, labs and medications reviewed Currently on oxygen at 5 L/min per nasal cannula Overall prognosis remains quite poor Recommend a hospice consult Titrate the FiO2 as tolerated Continue DuoNeb and elations, Symbicort Continue prednisone taper Lovenox for DVT prophylaxis We will continue to follow and make further recommendations based on his clinical status I have personally seen and examined the patient, performed the documentation and the assessment and plan as written. Number of minutes spent on the visit: 20 Dictation was produced using [employer] dictation software. Please excuse any grammatical, word or spelling errors.
[2024-07-07 13:41] VITALS: BMI 14.6
[2024-07-07] MEDS ORDERED: IPRATROPIUM-ALBUTEROL 3 ML NEB INHALATION PRN (20:43)
[2024-07-08] MEDS: IPRATROPIUM-ALBUTEROL 3 ML NEB INHALATION SCH (08:30)
[2024-07-08] MEDS: ENOXAPARIN 40 MG/0.4 ML SYRINGE SQ SCH (09:18)
[2024-07-08 09:21] LABS: Basophils # (A) 0.03 X 10*3/uL (0.00-0.10); Basophils % (A) 0.4 %; Eosinophils # (A) 0.05 X 10*3/uL (0.04-0.35); Eosinophils % (A) 0.6 %; HCT 33.5 % (39.6-50.0); HGB 10.1 g/dL (13.0-17.0); Lymphocytes # (A) 0.86 X 10*3/uL (0.90-5.00); Lymphocytes % (A) 11.1 %; MCH 26.3 pg (27.0-32.0); MCHC 30.1 g/dL (32.0-37.0); MCV 87.2 FL (80.0-97.0); Mean Platelet Volume 10.6 FL (9.5-12.2); Monocytes # (A) 0.49 X 10*3/uL (0.20-1.00); Monocytes % (A) 6.3 %; NRBC Per 100 WBC 0 X 10*3/uL (0.00-0.01); Neutrophils % (A) 80.4 %; Platelet Count 415 X 10*3/uL (140-440); RBC 3.84 X 10*6/uL (4.40-5.60); WBC 7.72 X 10*3/uL (4.50-10.00)
--- NOTE | 2024-07-08 09:21 | P.PN ---
Subjective Progress Note Date: 07/08/24 Baldev Joyce, is a 74-year-old male who presented to [facility] emergency room with a chief complaint of worsening shortness of breath, generalized weakness, O2 desaturation, and faulty oxygen concentrator at home. He was evaluated in the emergency room vital examination on presentation revealed a temperature of 98.2 pulse 83 respiration 20 blood pressure 145/77 pulse ox 95% on 5 L nasal cannula Laboratory data revealed a white blood count of 8.7 hemoglobin 12.2 platelet count 444 sodium 134 potassium 4.6 chloride 97 CO2 32 BUN 40 creatinine 0.62 Testing in the emergency room revealed chest x-ray showing similar right basilar and left perihilar opacities on background emphysematous and pulmonary fibrotic changes may represent infiltrates versus masses consider further evaluation with CT Patient was admitted to medical floor for further evaluation and treatment patient will be admitted and pulmonary services consulted patient started on steroids Past medical history is significant for COPD, hyperlipidemia, hypertension, [place] ex-smoker, peripheral vascular disease with previous left AKA and left upper lung mass suspicious for bronchogenic carcinoma On review of systems patient is alert and oriented x 3. Patient denies chest pain or shortness of breath. Patient denies any urinary burning or frequency. Patient denies nausea vomiting or diarrhea On 07/08/2024 patient was seen and examined on the medical floor he is alert and oriented x 3 in no apparent distress, he is complaining of shortness of breath with any activity, and occasional cough, otherwise he denies any complaints there is no fever or chills no headache or dizziness no chest pain no nausea or vomiting no abdominal pain no diarrhea no urinary symptoms. Objective - Vital Signs Vital signs: Vital Signs Temp 97.4 F L 07/08/24 01:48 Pulse 74 07/08/24 01:48 Resp 16 07/08/24 01:48 BP 134/57 07/08/24 01:48 Pulse Ox 100 07/08/24 01:48 FiO2 Intake & Output 07/07/24 07/08/24 07/08/24 18:59 06:59 18:59 Intake Total 480 1150 Output Total 800 300 Balance -320 850 Weight 53.07 kg Intake: Oral 480 1150 Output: Urine 800 300 Other: Voiding Method Indwelling Catheter Indwelling Catheter - Exam In general patient is alert and oriented x 3 in no distress HEENT head normocephalic and atraumatic Neck is supple no JVD no goiter no lymphadenopathy no carotid bruit Chest examination reveals a few scattered rhonchi no wheezing Cardiac exam reveals regular heart sounds S1 and S2 no gallops no murmurs Abdomen is soft nontender no organomegaly with normal bowel sounds Extremity exam reveals no edema no cyanosis or clubbing, left above-knee amputation Neurological examination reveals no gross focal deficits - Labs CBC & Chem 7: 07/07/24 04:32 07/07/24 04:32 Labs: Abnormal Lab Results - Last 24 Hours (Table) 07/07/24 07/07/24 Range/Units 04:32 04:32 RBC 4.29 L (4.40-5.60) X 10*6/uL Hgb 11.3 L (13.0-17.0) g/dL Hct 38.1 L (39.6-50.0) % MCH 26.3 L (27.0-32.0) pg MCHC 29.7 L (32.0-37.0) g/dL RDW 20.5 H (11.5-14.5) % Immature Gran # 0.06 H (0.00-0.04) X 10*3/uL Lymphocytes # 0.62 L (0.90-5.00) X 10*3/uL BUN 32.7 H (9.0-27.0) mg/dL BUN/Creatinine Ratio 46.71 H (12.00-20.00) Ratio Glucose 139 H (70-110) mg/dL Calcium 8.4 L (8.7-10.3) mg/dL Assessment and Plan Assessment: 1. Shortness of breath secondary to acute on chronic COPD and acute on chronic hypoxic respiratory failure 2. History of bronchogenic carcinoma. Patient did receive outpatient PET scan and evaluated by pulmonary services 3. History of severe peripheral vascular disease with previous AKA 4. Chronic hypoxic respiratory failure maintained on home O2 5. History of tobacco use 6. History of depression 7. History of hyperlipidemia 8. History of coronary artery disease with previous angioplasty and stent placement 9. History of anemia maintained on iron supplements 10. History of degenerative disc disease maintained on pain control DVT prophylaxis Lovenox. GI prophylax Protonix Patient maintained on steroids pulmonary services consulted
[2024-07-08 09:28] LABS: ALT 15 U/L (10-49); AST 15 U/L (14-35); Albumin 2.7 g/dL (3.8-4.9); Albumin/Globulin Ratio 1.08 Ratio (1.60-3.17); Alkaline Phosphatase 71 U/L (41-126); BUN/Creat Ratio 47.83 Ratio (12.00-20.00); Blood Urea Nitrogen 28.7 mg/dL (9.0-27.0); Calcium 8.2 mg/dL (8.7-10.3); Carbon Dioxide 28.7 mmol/L (21.6-31.8); Chloride 101 mmol/L (96-109); Globulin 2.5 g/dL (1.6-3.3); Glucose 189 mg/dL (70-110); Potassium 4.3 mmol/L (3.5-5.5); Sodium 136 mmol/L (135-145); Total Bilirubin 0.3 mg/dL (0.3-1.2); Total Protein 5.2 g/dL (6.2-8.2)
--- NOTE | 2024-07-08 10:42 | P.PN ---
Subjective Progress Note Date: 07/08/24 This is a very cachectic weak 74-year-old male patient with a known history of multiple lung lesions suspicious for bronchogenic carcinoma. He had been too ill to keep follow-up appointments. He did have a previous PET scan from August 2023 that showed a left upper lobe medial mass measuring 31 x 24 mm with metabolic activity compatible with malignancy. He did not keep any follow-up appointments after that time. A more recent CAT scan of his last admission May 30, 2024 showed new bilateral lower lung masses with enlarging hilar adenopathy. He was due for a repeat PET scan however presented here to the emergency room yesterday because his home oxygen tank was broken and he was getting hypoxemic. Prior to that he had remained extremely weak. Apparently EMS had been called to the house several times to help him up off the toilet. He is seen today in consultation on the regular medical floor. He is resting in bed. He is alert. He is extremely weak. Extremely cachectic. Body mass index of 14.6 kg/m. Chest x-ray reveals similar right basilar and left perihilar opacities on background of a somatic changes and pulmonary fibrotic changes. White count 8.6. Hemoglobin 11.3. Platelets 437. Sodium 140. Potassium 4.3. Bicarb 29. BUN 33. Creatinine 0.7. Glucose 139. Viral screen was negative. He is currently maintaining O2 saturations in the 90s on 5 L/min per nasal vika mary which is his home setting. He has been afebrile. Hemodynamically stable. The patient is seen today July 08, 2024 in follow-up on the regular medical floor. He is currently resting in bed. Awake and alert in no acute distress. Feeling a bit better today compared to yesterday. He is maintaining O2 saturations in the 90s on 5 L/min per nasal cannula. No IV fluids. Procalcitonin was negative at 0.13. White count 7.7. Hemoglobin 10.1. Platelets 415. Sodium 136. Potassium 4.3. Bicarb 29. BUN 29. Creatinine 0.6. Glucose 189. Albumin 2.7. He remains on DuoNeb inhalations, Symbicort, prednisone taper. Lovenox for DVT prophylaxis. Objective - Vital Signs Vital signs: Vital Signs Temp 97.6 F 07/08/24 07:13 Pulse 71 07/08/24 07:13 Resp 17 07/08/24 07:13 BP 142/79 07/08/24 07:13 Pulse Ox 99 07/08/24 07:13 FiO2 Intake & Output 07/07/24 07/08/24 07/08/24 18:59 06:59 18:59 Intake Total 480 1150 Output Total 800 300 Balance -320 850 Weight 53.07 kg Intake: Oral 480 1150 Output: Urine 800 300 Other: Voiding Method Indwelling Catheter Indwelling Catheter Indwelling Catheter - Exam GENERAL EXAM: Alert, frail, cachectic 74-year-old male, on 5 L nasal cannula, resting in bed, comfortable in no apparent distress. HEAD: Normocephalic. EYES: Normal reaction of pupils, equal size. NOSE: Clear with pink turbinates. THROAT: No erythema or exudates. NECK: No masses, no JVD. CHEST: No chest wall deformity. LUNGS: Equal air entry with bilateral scattered rhonchi. CVS: S1 and S2 normal with no audible murmur, regular rhythm. ABDOMEN: No hepatosplenomegaly, normal bowel sounds, no guarding or rigidity. SPINE: No scoliosis or deformity SKIN: No rashes CENTRAL NERVOUS SYSTEM: No focal deficits, tone is normal in all 4 extremities. EXTREMITIES: There is no peripheral edema. No clubbing, no cyanosis. Peripheral pulses are intact. - Labs CBC & Chem 7: 07/08/24 05:59 07/08/24 05:59 Labs: Abnormal Lab Results - Last 24 Hours (Table) 07/08/24 07/08/24 Range/Units 05:59 05:59 RBC 3.84 L (4.40-5.60) X 10*6/uL Hgb 10.1 L (13.0-17.0) g/dL Hct 33.5 L (39.6-50.0) % MCH 26.3 L (27.0-32.0) pg MCHC 30.1 L (32.0-37.0) g/dL RDW 20.0 H (11.5-14.5) % Immature Gran # 0.09 H (0.00-0.04) X 10*3/uL Lymphocytes # 0.86 L (0.90-5.00) X 10*3/uL BUN 28.7 H (9.0-27.0) mg/dL BUN/Creatinine Ratio 47.83 H (12.00-20.00) Ratio Glucose 189 H (70-110) mg/dL Calcium 8.2 L (8.7-10.3) mg/dL Total Protein 5.2 L (6.2-8.2) g/dL Albumin 2.7 L (3.8-4.9) g/dL Albumin/Globulin Ratio 1.08 L (1.60-3.17) Ratio Assessment and Plan Assessment: Acute on chronic hypoxemic respiratory failure secondary to broken oxygen equipment at home Extreme weakness and debility secondary to progressive suspected bronchogenic carcinoma throughout the lungs Known history of lung masses suspected bronchogenic carcinoma. He did have a previous PET scan from August 2023 that showed a left upper lobe medial mass measuring 31 x 24 mm with metabolic activity compatible with malignancy. He did not keep any follow-up appointments after that time. A more recent CAT scan of his last admission here in May 2024 showed new bilateral lower lung masses with enlarging hilar adenopathy. Was to have a follow-up PET scan today but ended up in the emergency room yesterday Very severe chronic obstructive pulmonary disease, with an FEV1 24% of predicted Hyperglycemia, likely steroid-induced, improved, currently on Lantus Hyperkalemia History of coronary artery disease, with previous PCI/stent History of hyperlipidemia Hypertension History of peripheral vascular disease History of prior left AKA Chronic anemia, hemoglobin stable History of GERD with esophagitis History of diverticulosis Former tobacco dependence Severe protein calorie malnutrition with a BMI of 14.6 kg/m Marijuana smoker Poor overall functional performance due to the above-mentioned multiple comorbidities and suspected advanced lung cancer Plan: The patient was seen and evaluated Labs and medications reviewed Currently on oxygen at 5 L/min per nasal cannula Titrate the FiO2 as tolerated Continue DuoNeb and elations, Symbicort Continue prednisone taper Lovenox for DVT prophylaxis Overall prognosis remains quite poor Declined a hospice consult Plan is for outpatient PET scan This patient was seen independently by the pulmonary nurse practitioner addressing pulmonary issues I have personally seen and examined the patient, performed the documentation and the assessment and plan as written. Number of minutes spent on the visit: 25 Dictation was produced using [employer] dictation software. Please excuse any grammatical, word or spelling errors.
[2024-07-08] MEDS: LIDOCAINE 4% PATCH TOPICAL SCH (14:38)
[2024-07-09 07:45] LABS: Anisocytosis Slight; Basophils % (A) 0 %; Eosinophils # (A) 0.1 k/uL (0-0.7); Eosinophils % (A) 1 %; Hypochromasia Marked; Lymphocytes # (A) 0.9 k/uL (1.0-4.8); Lymphocytes % (A) 10 %; MCHC 30.3 g/dL (31.0-37.0); MCV 85.8 fL (80.0-100.0); Monocytes # (A) 0.5 k/uL (0-1.0); Monocytes % (A) 6 %; Neutrophils # (A) 6.9 k/uL (1.3-7.7); Neutrophils % (A) 81 %; Platelet Count 374 k/uL (150-450); RBC 3.85 m/uL (4.30-5.90); RDW 18.7 % (11.5-15.5); WBC 8.5 k/uL (3.8-10.6)
--- NOTE | 2024-07-09 08:00 | P.PN ---
Subjective Progress Note Date: 07/09/24 This is a very cachectic weak 74-year-old male patient with a known history of multiple lung lesions suspicious for bronchogenic carcinoma. He had been too ill to keep follow-up appointments. He did have a previous PET scan from August 2023 that showed a left upper lobe medial mass measuring 31 x 24 mm with metabolic activity compatible with malignancy. He did not keep any follow-up appointments after that time. A more recent CAT scan of his last admission May 30, 2024 showed new bilateral lower lung masses with enlarging hilar adenopathy. He was due for a repeat PET scan however presented here to the emergency room yesterday because his home oxygen tank was broken and he was getting hypoxemic. Prior to that he had remained extremely weak. Apparently EMS had been called to the house several times to help him up off the toilet. He is seen today in consultation on the regular medical floor. He is resting in bed. He is alert. He is extremely weak. Extremely cachectic. Body mass index of 14.6 kg/m. Chest x-ray reveals similar right basilar and left perihilar opacities on background of a somatic changes and pulmonary fibrotic changes. White count 8.6. Hemoglobin 11.3. Platelets 437. Sodium 140. Potassium 4.3. Bicarb 29. BUN 33. Creatinine 0.7. Glucose 139. Viral screen was negative. He is currently maintaining O2 saturations in the 90s on 5 L/min per nasal [place] which is his home setting. He has been afebrile. Hemodynamically stable. The patient is seen today July 08, 2024 in follow-up on the regular medical floor. He is currently resting in bed. Awake and alert in no acute distress. Feeling a bit better today compared to yesterday. He is maintaining O2 saturations in the 90s on 5 L/min per nasal cannula. No IV fluids. Procalcitonin was negative at 0.13. White count 7.7. Hemoglobin 10.1. Platelets 415. Sodium 136. Potassium 4.3. Bicarb 29. BUN 29. Creatinine 0.6. Glucose 189. Albumin 2.7. He remains on DuoNeb inhalations, Symbicort, prednisone taper. Lovenox for DVT prophylaxis. The patient is seen today July 09, 2024 in follow-up on the regular medical floor. He is awake and alert in no acute distress. He is resting in bed. He denies any worsening shortness of breath, cough or congestion. He remains quite weak and debilitated. He is maintaining O2 saturations in the 90s on 5 L/min per nasal cannula. No new labs today. He remains on DuoNeb inhalations, Symbicort, prednisone taper. Lovenox for DVT prophylaxis. Objective - Vital Signs Vital signs: Vital Signs Temp 97.9 F 07/09/24 07:15 Pulse 68 07/09/24 07:15 Resp 17 07/09/24 07:15 BP 162/83 07/09/24 07:15 Pulse Ox 97 07/09/24 07:15 FiO2 Intake & Output 07/08/24 07/09/24 07/09/24 18:59 06:59 18:59 Intake Total 1260 1320 Output Total 700 1800 Balance 560 -480 Intake: Oral 1260 1320 Output: Urine 700 1800 Other: Voiding Method Indwelling Catheter Indwelling Catheter - Exam GENERAL EXAM: Alert, pleasant, frail, weak 74-year-old male, on 5 L nasal cannula, comfortable in no apparent distress. HEAD: Normocephalic. EYES: Normal reaction of pupils, equal size. NOSE: Clear with pink turbinates. THROAT: No erythema or exudates. NECK: No masses, no JVD. CHEST: No chest wall deformity. LUNGS: Equal air entry with bilateral scattered rhonchi. CVS: S1 and S2 normal with no audible murmur, regular rhythm. ABDOMEN: No hepatosplenomegaly, normal bowel sounds, no guarding or rigidity. SPINE: No scoliosis or deformity SKIN: No rashes CENTRAL NERVOUS SYSTEM: No focal deficits, tone is normal in all 4 extremities. EXTREMITIES: Left [id number] amputation. There is no peripheral edema. No clubbing, no cyanosis. Peripheral pulses are intact. - Labs CBC & Chem 7: 07/08/24 05:59 07/08/24 05:59 Labs: Abnormal Lab Results - Last 24 Hours (Table) 07/08/24 07/08/24 Range/Units 05:59 05:59 RBC 3.84 L (4.40-5.60) X 10*6/uL Hgb 10.1 L (13.0-17.0) g/dL Hct 33.5 L (39.6-50.0) % MCH 26.3 L (27.0-32.0) pg MCHC 30.1 L (32.0-37.0) g/dL RDW 20.0 H (11.5-14.5) % Immature Gran # 0.09 H (0.00-0.04) X 10*3/uL Lymphocytes # 0.86 L (0.90-5.00) X 10*3/uL BUN 28.7 H (9.0-27.0) mg/dL BUN/Creatinine Ratio 47.83 H (12.00-20.00) Ratio Glucose 189 H (70-110) mg/dL Calcium 8.2 L (8.7-10.3) mg/dL Total Protein 5.2 L (6.2-8.2) g/dL Albumin 2.7 L (3.8-4.9) g/dL Albumin/Globulin Ratio 1.08 L (1.60-3.17) Ratio Assessment and Plan Assessment: Acute on chronic hypoxemic respiratory failure secondary to broken oxygen equipment at home Extreme weakness and debility secondary to progressive suspected bronchogenic carcinoma throughout the lungs Known history of lung masses suspected bronchogenic carcinoma. He did have a previous PET scan from August 2023 that showed a left upper lobe medial mass measuring 31 x 24 mm with metabolic activity compatible with malignancy. He did not keep any follow-up appointments after that time. A more recent CAT scan of his last admission here in May 2024 showed new bilateral lower lung masses with enlarging hilar adenopathy. Was to have a follow-up PET scan today but ended up in the emergency room yesterday Very severe chronic obstructive pulmonary disease, with an FEV1 24% of predicted, oxygen dependent Hyperglycemia, likely steroid-induced, improved, currently on Lantus Hyperkalemia History of coronary artery disease, with previous PCI/stent History of hyperlipidemia Hypertension History of peripheral vascular disease History of prior left AKA Chronic anemia, hemoglobin stable History of GERD with esophagitis History of diverticulosis Former tobacco dependence Severe protein calorie malnutrition with a BMI of 14.6 kg/m Marijuana smoker Poor overall functional performance due to the above-mentioned multiple comorbidities and suspected advanced lung cancer Plan: The patient was seen and evaluated Medications reviewed Titrate the FiO2 as tolerated Continue DuoNeb and elations, Symbicort Continue prednisone taper Lovenox for DVT prophylaxis Prognosis remains quite poor Declined a hospice consult Plan is for outpatient PET scan Recommend subacute rehab dilatation at discharge This patient was seen independently by the pulmonary nurse practitioner addressing pulmonary issues I have personally seen and examined the patient, performed the documentation and the assessment and plan as written. Number of minutes spent on the visit: 24 Dictation was produced using Data[employer] dictation software. Please excuse any grammatical, word or spelling errors.
[2024-07-09 08:20] LABS: ALT 17 U/L (4-49); AST 19 U/L (17-59); African American GFR (CKD) >90 (>60 ml/min/1.73 sqM); Albumin 2.6 g/dL (3.5-5.0); Alkaline Phosphatase 71 U/L (38-126); Anion Gap 2 mmol/L; Blood Urea Nitrogen 40 mg/dL (9-20); Calcium 8.2 mg/dL (8.4-10.2); Carbon Dioxide 33 mmol/L (22-30); Chloride 91 mmol/L (98-107); Globulin 2.7 g/dL; Glucose 159 mg/dL (74-99); Non-African American GFR(CKD) >90 (>60 ml/min/1.73 sqM); Sodium 126 mmol/L (137-145); Total Bilirubin 0.4 mg/dL (0.2-1.3); Total Protein 5.3 g/dL (6.3-8.2)
--- NOTE | 2024-07-09 09:17 | P.PN ---
Subjective Progress Note Date: 07/09/24 Baldev Joyce, is a 74-year-old male who presented to [facility] emergency room with a chief complaint of worsening shortness of breath, generalized weakness, O2 desaturation, and faulty oxygen concentrator at home. He was evaluated in the emergency room vital examination on presentation revealed a temperature of 98.2 pulse 83 respiration 20 blood pressure 145/77 pulse ox 95% on 5 L nasal cannula Laboratory data revealed a white blood count of 8.7 hemoglobin 12.2 platelet count 444 sodium 134 potassium 4.6 chloride 97 CO2 32 BUN 40 creatinine 0.62 Testing in the emergency room revealed chest x-ray showing similar right basilar and left perihilar opacities on background emphysematous and pulmonary fibrotic changes may represent infiltrates versus masses consider further evaluation with CT Patient was admitted to medical floor for further evaluation and treatment patient will be admitted and pulmonary services consulted patient started on steroids Past medical history is significant for COPD, hyperlipidemia, hypertension, [place] ex-smoker, peripheral vascular disease with previous left AKA and left upper lung mass suspicious for bronchogenic carcinoma On review of systems patient is alert and oriented x 3. Patient denies chest pain or shortness of breath. Patient denies any urinary burning or frequency. Patient denies nausea vomiting or diarrhea On 07/08/2024 patient was seen and examined on the medical floor he is alert and oriented x 3 in no apparent distress, he is complaining of shortness of breath with any activity, and occasional cough, otherwise he denies any complaints there is no fever or chills no headache or dizziness no chest pain no nausea or vomiting no abdominal pain no diarrhea no urinary symptoms. On 07/09/2024 patient was seen and examined on the medical floor he is alert and oriented x 3 in no apparent distress he is still complaining of cough and shortness of breath, and generalized weakness otherwise he denies any complaints, there is no fever or chills no headache or dizziness no chest pain no palpitation no nausea or vomiting no abdominal pain no diarrhea and no urinary symptoms. Temperature is 97.9 pulse 68 respiration 17 blood pressure 142/73 pulse ox 96% on 5 L nasal cannula his white blood count is 8.5 hemoglobin 10.0 platelet count 374 sodium 126 potassium 5.0 chloride 91 CO2 33 BUN 40 creatinine 0.67 Objective - Vital Signs Vital signs: Vital Signs Temp 97.9 F 07/09/24 07:15 Pulse 68 07/09/24 07:15 Resp 17 07/09/24 07:15 BP 162/83 07/09/24 07:15 Pulse Ox 97 07/09/24 07:15 FiO2 Intake & Output 07/08/24 07/09/24 07/09/24 18:59 06:59 18:59 Intake Total 1260 1320 Output Total 700 1800 Balance 560 -480 Intake: Oral 1260 1320 Output: Urine 700 1800 Other: Voiding Method Indwelling Catheter Indwelling Catheter - Exam In general patient is alert and oriented x 3 in no distress HEENT head normocephalic and atraumatic Neck is supple no JVD no goiter no lymphadenopathy no carotid bruit Chest examination reveals a few scattered rhonchi no wheezing Cardiac exam reveals regular heart sounds S1 and S2 no gallops no murmurs Abdomen is soft nontender no organomegaly with normal bowel sounds Extremity exam reveals no edema no cyanosis or clubbing, left above-knee amputation Neurological examination reveals no gross focal deficits - Labs CBC & Chem 7: 07/09/24 07:13 07/09/24 07:13 Labs: Abnormal Lab Results - Last 24 Hours (Table) 07/08/24 07/08/24 07/09/24 Range/Units 05:59 05:59 07:13 RBC 3.84 L 3.85 L (4.40-5.60) X 10*6/uL Hgb 10.1 L 10.0 L D (13.0-17.0) g/dL Hct 33.5 L 33.0 L (39.6-50.0) % MCH 26.3 L (27.0-32.0) pg MCHC 30.1 L 30.3 L (32.0-37.0) g/dL RDW 20.0 H 18.7 H (11.5-14.5) % Immature Gran # 0.09 H (0.00-0.04) X 10*3/uL Lymphocytes # 0.86 L 0.9 L (0.90-5.00) X 10*3/uL Sodium (137-145) mmol/L Chloride (98-107) mmol/L Carbon Dioxide (22-30) mmol/L BUN 28.7 H (9.0-27.0) mg/dL BUN/Creatinine Ratio 47.83 H (12.00-20.00) Ratio Glucose 189 H (70-110) mg/dL Calcium 8.2 L (8.7-10.3) mg/dL Total Protein 5.2 L (6.2-8.2) g/dL Albumin 2.7 L (3.8-4.9) g/dL Albumin/Globulin Ratio 1.08 L (1.60-3.17) Ratio 03// Range/Units 07:13 RBC (4.40-5.60) X 10*6/uL Hgb (13.0-17.0) g/dL Hct (39.6-50.0) % MCH (27.0-32.0) pg MCHC (32.0-37.0) g/dL RDW (11.5-14.5) % Immature Gran # (0.00-0.04) X 10*3/uL Lymphocytes # (0.90-5.00) X 10*3/uL Sodium 126 L (137-145) mmol/L Chloride 91 L (98-107) mmol/L Carbon Dioxide 33 H (22-30) mmol/L BUN 40 H (9.0-27.0) mg/dL BUN/Creatinine Ratio (12.00-20.00) Ratio Glucose 159 H (70-110) mg/dL Calcium 8.2 L (8.7-10.3) mg/dL Total Protein 5.3 L (6.2-8.2) g/dL Albumin 2.6 L (3.8-4.9) g/dL Albumin/Globulin Ratio (1.60-3.17) Ratio Assessment and Plan Assessment: 1. Shortness of breath secondary to acute on chronic COPD and acute on chronic hypoxic respiratory failure 2. History of bronchogenic carcinoma. Patient did receive outpatient PET scan and evaluated by pulmonary services 3. History of severe peripheral vascular disease with previous AKA 4. Chronic hypoxic respiratory failure maintained on home O2 5. History of tobacco use 6. History of depression 7. History of hyperlipidemia 8. History of coronary artery disease with previous angioplasty and stent placement 9. History of anemia maintained on iron supplements 10. History of degenerative disc disease maintained on pain control DVT prophylaxis Lovenox. GI prophylax Protonix Patient maintained on steroids pulmonary services consulted
[2024-07-09] MEDS: SODIUM CHLORIDE 0.9% 1,000 ML IV STA (09:22)
[2024-07-09] MEDS: ALPRAZolam 0.25 MG TAB PO PRN (09:37)
[2024-07-09] MEDS: ZINC OXIDE PASTE (Z-GUARD) 1 APPLIC TOPICAL PRN (11:26)
[2024-07-09] MEDS: LACTULOSE 20 GM/30 ML CUP PO PRN (11:26)
[2024-07-10 09:24] LABS: ALT 23 U/L (10-49); AST 20 U/L (14-35); Albumin 2.9 g/dL (3.8-4.9); Albumin/Globulin Ratio 1.21 Ratio (1.60-3.17); Alkaline Phosphatase 70 U/L (41-126); BUN/Creat Ratio 45.71 Ratio (12.00-20.00); Calcium 8.4 mg/dL (8.7-10.3); Carbon Dioxide 29.1 mmol/L (21.6-31.8); Chloride 98 mmol/L (96-109); Globulin 2.4 g/dL (1.6-3.3); Glucose 271 mg/dL (70-110); Potassium 4.6 mmol/L (3.5-5.5); Sodium 134 mmol/L (135-145); Total Bilirubin 0.2 mg/dL (0.3-1.2); Total Protein 5.3 g/dL (6.2-8.2)
[2024-07-10 10:16] LABS: Basophils # (A) 0.02 X 10*3/uL (0.00-0.10); Basophils % (A) 0.3 %; Eosinophils # (A) 0.01 X 10*3/uL (0.04-0.35); Eosinophils % (A) 0.1 %; HCT 32.6 % (39.6-50.0); HGB 9.8 g/dL (13.0-17.0); Lymphocytes # (A) 0.62 X 10*3/uL (0.90-5.00); Lymphocytes % (A) 9.1 %; MCH 26.3 pg (27.0-32.0); MCHC 30.1 g/dL (32.0-37.0); MCV 87.4 FL (80.0-97.0); Mean Platelet Volume 10.9 FL (9.5-12.2); Monocytes % (A) 7.3 %; NRBC Per 100 WBC 0 X 10*3/uL (0.00-0.01); Neutrophils # (A) 5.62 X 10*3/uL (1.80-7.70); Platelet Count 377 X 10*3/uL (140-440); RBC 3.73 X 10*6/uL (4.40-5.60); RDW 19.8 % (11.5-14.5); WBC 6.85 X 10*3/uL (4.50-10.00)
--- NOTE | 2024-07-10 16:59 | P.PN ---
Subjective Progress Note Date: 07/10/24 Baldev Joyce, is a 74-year-old male who presented to [facility] emergency room with a chief complaint of worsening shortness of breath, generalized weakness, O2 desaturation, and faulty oxygen concentrator at home. He was evaluated in the emergency room vital examination on presentation revealed a temperature of 98.2 pulse 83 respiration 20 blood pressure 145/77 pulse ox 95% on 5 L nasal cannula Laboratory data revealed a white blood count of 8.7 hemoglobin 12.2 platelet count 444 sodium 134 potassium 4.6 chloride 97 CO2 32 BUN 40 creatinine 0.62 Testing in the emergency room revealed chest x-ray showing similar right basilar and left perihilar opacities on background emphysematous and pulmonary fibrotic changes may represent infiltrates versus masses consider further evaluation with CT Patient was admitted to medical floor for further evaluation and treatment patient will be admitted and pulmonary services consulted patient started on steroids Past medical history is significant for COPD, hyperlipidemia, hypertension, [place] ex-smoker, peripheral vascular disease with previous left AKA and left upper lung mass suspicious for bronchogenic carcinoma On review of systems patient is alert and oriented x 3. Patient denies chest pain or shortness of breath. Patient denies any urinary burning or frequency. Patient denies nausea vomiting or diarrhea On 07/08/2024 patient was seen and examined on the medical floor he is alert and oriented x 3 in no apparent distress, he is complaining of shortness of breath with any activity, and occasional cough, otherwise he denies any complaints there is no fever or chills no headache or dizziness no chest pain no nausea or vomiting no abdominal pain no diarrhea no urinary symptoms. On 07/09/2024 patient was seen and examined on the medical floor he is alert and oriented x 3 in no apparent distress he is still complaining of cough and shortness of breath, and generalized weakness otherwise he denies any complaints, there is no fever or chills no headache or dizziness no chest pain no palpitation no nausea or vomiting no abdominal pain no diarrhea and no urinary symptoms. Temperature is 97.9 pulse 68 respiration 17 blood pressure 142/73 pulse ox 96% on 5 L nasal cannula his white blood count is 8.5 hemoglobin 10.0 platelet count 374 sodium 126 potassium 5.0 chloride 91 CO2 33 BUN 40 creatinine 0.67 On 07/10/2024 patient was seen and examined on the medical floor he is alert and oriented x 3 in no apparent distress he is complaining of severe weakness and shortness of breath with any activity otherwise he denies any complaints there is no fever or chills no headache or dizziness no chest pain no nausea or vomiting no abdominal pain no diarrhea no urinary symptoms Objective - Vital Signs Vital signs: Vital Signs Temp 98.2 F 07/10/24 12:31 Pulse 80 07/10/24 15:18 Resp 18 07/10/24 15:18 BP 138/64 07/10/24 12:31 Pulse Ox 99 07/10/24 12:31 FiO2 Intake & Output 07/09/24 07/10/24 07/10/24 18:59 06:59 18:59 Output Total 2900 Balance -2900 Output: Urine 2900 Other: Voiding Method Indwelling Catheter Indwelling Catheter Indwelling Catheter # Bowel Movements 2 - Exam In general patient is alert and oriented x 3 in no distress HEENT head normocephalic and atraumatic Neck is supple no JVD no goiter no lymphadenopathy no carotid bruit Chest examination reveals a few scattered rhonchi no wheezing Cardiac exam reveals regular heart sounds S1 and S2 no gallops no murmurs Abdomen is soft nontender no organomegaly with normal bowel sounds Extremity exam reveals no edema no cyanosis or clubbing, left above-knee amputation Neurological examination reveals no gross focal deficits - Labs CBC & Chem 7: 07/10/24 04:19 07/10/24 04:19 Labs: Abnormal Lab Results - Last 24 Hours (Table) 07/10/24 07/10/24 Range/Units 04:19 04:19 RBC 3.73 L (4.40-5.60) X 10*6/uL Hgb 9.8 L (13.0-17.0) g/dL Hct 32.6 L (39.6-50.0) % MCH 26.3 L (27.0-32.0) pg MCHC 30.1 L (32.0-37.0) g/dL RDW 19.8 H (11.5-14.5) % Immature Gran # 0.08 H (0.00-0.04) X 10*3/uL Lymphocytes # 0.62 L (0.90-5.00) X 10*3/uL Eosinophils # 0.01 L (0.04-0.35) X 10*3/uL Sodium 134 L (135-145) mmol/L BUN 32.0 H (9.0-27.0) mg/dL BUN/Creatinine Ratio 45.71 H (12.00-20.00) Ratio Glucose 271 H (70-110) mg/dL Calcium 8.4 L (8.7-10.3) mg/dL Total Bilirubin 0.2 L (0.3-1.2) mg/dL Total Protein 5.3 L (6.2-8.2) g/dL Albumin 2.9 L (3.8-4.9) g/dL Albumin/Globulin Ratio 1.21 L (1.60-3.17) Ratio Assessment and Plan Assessment: 1. Shortness of breath secondary to acute on chronic COPD and acute on chronic hypoxic respiratory failure 2. History of bronchogenic carcinoma. Patient did receive outpatient PET scan and evaluated by pulmonary services 3. History of severe peripheral vascular disease with previous AKA 4. Chronic hypoxic respiratory failure maintained on home O2 5. History of tobacco use 6. History of depression 7. History of hyperlipidemia 8. History of coronary artery disease with previous angioplasty and stent placement 9. History of anemia maintained on iron supplements 10. History of degenerative disc disease maintained on pain control DVT prophylaxis Lovenox. GI prophylax Protonix Patient maintained on steroids pulmonary services consulted
--- NOTE | 2024-07-10 19:28 | P.PN ---
Subjective Progress Note Date: 07/10/24 On 07/10/2024, patient is being seen for a follow-up. Condition is essentially unchanged. Complaining of ongoing shortness of breath even at rest and generalized weakness. No significant sputum production. No chest pain. No nausea vomiting or emesis. The patient remains on oxygen at 5 L with a pulse ox of 99%. The patient remains on DuoNeb nebulized treatments [id number], Symbicort 2 puffs twice a day and the patient is on prednisone 40 mg p.o. daily. Rest of the medications are unchanged. Remains on Lovenox for DVT prophylaxis. Carries a very poor prognosis as discussed earlier. The patient has metastatic cancer. Final tissue diagnosis has not been established based on his underlying advanced COPD. Nevertheless, his CAT scan findings are consistent with metastatic lung cancer. Comorbidities are multiple as discussed earlier. Declined hospice at this point. Objective - Vital Signs Vital signs: Vital Signs Temp 98.2 F 07/10/24 12:31 Pulse 80 07/10/24 15:18 Resp 18 07/10/24 15:18 BP 138/64 07/10/24 12:31 Pulse Ox 99 07/10/24 12:31 FiO2 Intake & Output 07/09/24 07/10/24 07/10/24 18:59 06:59 18:59 Output Total 2900 Balance -2900 Output: Urine 2900 Other: Voiding Method Indwelling Catheter Indwelling Catheter Indwelling Catheter # Bowel Movements 2 - Exam GENERAL EXAM: Alert, pleasant, frail, weak 74-year-old male, on 5 L nasal cannula, comfortable in no apparent distress. HEAD: Normocephalic. EYES: Normal reaction of pupils, equal size. NOSE: Clear with pink turbinates. THROAT: No erythema or exudates. NECK: No masses, no JVD. CHEST: No chest wall deformity. LUNGS: Equal air entry with bilateral scattered rhonchi. CVS: S1 and S2 normal with no audible murmur, regular rhythm. ABDOMEN: No hepatosplenomegaly, normal bowel sounds, no guarding or rigidity. SPINE: No scoliosis or deformity SKIN: No rashes CENTRAL NERVOUS SYSTEM: No focal deficits, tone is normal in all 4 extremities. EXTREMITIES: Left [id number] amputation. There is no peripheral edema. No clubbing, no cyanosis. Peripheral pulses are intact. - Labs CBC & Chem 7: 07/10/24 04:19 07/10/24 04:19 Labs: Abnormal Lab Results - Last 24 Hours (Table) 07/10/24 07/10/24 Range/Units 04:19 04:19 RBC 3.73 L (4.40-5.60) X 10*6/uL Hgb 9.8 L (13.0-17.0) g/dL Hct 32.6 L (39.6-50.0) % MCH 26.3 L (27.0-32.0) pg MCHC 30.1 L (32.0-37.0) g/dL RDW 19.8 H (11.5-14.5) % Immature Gran # 0.08 H (0.00-0.04) X 10*3/uL Lymphocytes # 0.62 L (0.90-5.00) X 10*3/uL Eosinophils # 0.01 L (0.04-0.35) X 10*3/uL Sodium 134 L (135-145) mmol/L BUN 32.0 H (9.0-27.0) mg/dL BUN/Creatinine Ratio 45.71 H (12.00-20.00) Ratio Glucose 271 H (70-110) mg/dL Calcium 8.4 L (8.7-10.3) mg/dL Total Bilirubin 0.2 L (0.3-1.2) mg/dL Total Protein 5.3 L (6.2-8.2) g/dL Albumin 2.9 L (3.8-4.9) g/dL Albumin/Globulin Ratio 1.21 L (1.60-3.17) Ratio Assessment and Plan Plan: Acute on chronic hypoxemic respiratory failure secondary to broken oxygen equipment at home Extreme weakness and debility secondary to progressive suspected bronchogenic carcinoma throughout the lungs Known history of lung masses suspected bronchogenic carcinoma. He did have a previous PET scan from August 2023 that showed a left upper lobe medial mass measuring 31 x 24 mm with metabolic activity compatible with malignancy. He did not keep any follow-up appointments after that time. A more recent CAT scan of his last admission here in May 2024 showed new bilateral lower lung masses with enlarging hilar adenopathy. Was to have a follow-up PET scan today but ended up in the emergency room yesterday Very severe chronic obstructive pulmonary disease, with an FEV1 24% of predicted, oxygen dependent Hyperglycemia, likely steroid-induced, improved, currently on Lantus Hyperkalemia History of coronary artery disease, with previous PCI/stent History of hyperlipidemia Hypertension History of peripheral vascular disease History of prior left AKA Chronic anemia, hemoglobin stable History of GERD with esophagitis History of diverticulosis Former tobacco dependence Severe protein calorie malnutrition with a BMI of 14.6 kg/m Marijuana smoker Poor overall functional performance due to the above-mentioned multiple comorbidities and suspected advanced lung cancer Plan: Overall condition is unchanged compared to yesterday Titrate the FiO2 as tolerated still on 5 L of O2 nasal cannula Continue DuoNeb and elations, Symbicort Continue prednisone taper Lovenox for DVT prophylaxis Prognosis remains quite poor Declined a hospice consult Plan is for outpatient PET scan Recommend subacute rehab dilatation at discharge
[2024-07-11 08:19] LABS: Basophils # (A) 0.02 X 10*3/uL (0.00-0.10); Basophils % (A) 0.3 %; Eosinophils # (A) 0.02 X 10*3/uL (0.04-0.35); Eosinophils % (A) 0.3 %; HCT 31.9 % (39.6-50.0); HGB 9.7 g/dL (13.0-17.0); Lymphocytes # (A) 0.72 X 10*3/uL (0.90-5.00); Lymphocytes % (A) 10.1 %; MCH 26.4 pg (27.0-32.0); MCHC 30.4 g/dL (32.0-37.0); MCV 86.9 FL (80.0-97.0); Mean Platelet Volume 10.9 FL (9.5-12.2); Monocytes # (A) 0.46 X 10*3/uL (0.20-1.00); Monocytes % (A) 6.4 %; NRBC Per 100 WBC 0 X 10*3/uL (0.00-0.01); Neutrophils # (A) 5.85 X 10*3/uL (1.80-7.70); Neutrophils % (A) 81.8 %; Platelet Count 412 X 10*3/uL (140-440); RBC 3.67 X 10*6/uL (4.40-5.60); RDW 19.7 % (11.5-14.5); WBC 7.15 X 10*3/uL (4.50-10.00)
[2024-07-11 08:29] LABS: ALT 24 U/L (10-49); AST 16 U/L (14-35); Albumin 2.9 g/dL (3.8-4.9); Albumin/Globulin Ratio 1.21 Ratio (1.60-3.17); Alkaline Phosphatase 71 U/L (41-126); BUN/Creat Ratio 51.33 Ratio (12.00-20.00); Blood Urea Nitrogen 30.8 mg/dL (9.0-27.0); Calcium 8.6 mg/dL (8.7-10.3); Carbon Dioxide 29.8 mmol/L (21.6-31.8); Chloride 96 mmol/L (96-109); Globulin 2.4 g/dL (1.6-3.3); Glucose 283 mg/dL (70-110); Potassium 4.6 mmol/L (3.5-5.5); Sodium 134 mmol/L (135-145); Total Bilirubin 0.2 mg/dL (0.3-1.2); Total Protein 5.3 g/dL (6.2-8.2)
[2024-07-11] MEDS: SIMETHICONE 80 MG CHEWABLE PO SCH (09:50)
--- NOTE | 2024-07-11 12:25 | P.DS ---
Providers Date of admission: 07/06/24 15:06 Expected date of discharge: 07/11/24 Attending physician: Fidencio Barrientos Consults: 07/06/24 15:03 Consult Physician Urgent Consulting Provider: Linwood Dover Consult Reason/Comments: aecopd, possible lung ca Do you want consulting provider notified?: Yes Primary care physician: Fidencio Barrientos [facility] Course: Discharge diagnosis 1. Shortness of breath secondary to acute on chronic COPD and acute on chronic hypoxic respiratory failure 2. History of bronchogenic carcinoma. Patient did receive outpatient PET scan and evaluated by pulmonary services 3. History of severe peripheral vascular disease with previous AKA 4. Chronic hypoxic respiratory failure maintained on home O2 5. History of tobacco use 6. History of depression 7. History of hyperlipidemia 8. History of coronary artery disease with previous angioplasty and stent placement 9. History of anemia maintained on iron supplements 10. History of degenerative disc disease maintained on pain control Hospital course Baldev Joyce, is a 74-year-old male who presented to [facility] emergency room with a chief complaint of worsening shortness of breath, generalized weakness, O2 desaturation, and faulty oxygen concentrator at home. He was evaluated in the emergency room vital examination on presentation revealed a temperature of 98.2 pulse 83 respiration 20 blood pressure 145/77 pulse ox 95% on 5 L nasal cannula Laboratory data revealed a white blood count of 8.7 hemoglobin 12.2 platelet count 444 sodium 134 potassium 4.6 chloride 97 CO2 32 BUN 40 creatinine 0.62 Testing in the emergency room revealed chest x-ray showing similar right basilar and left perihilar opacities on background emphysematous and pulmonary fibrotic changes may represent infiltrates versus masses consider further evaluation with CT Patient was admitted to medical floor for further evaluation and treatment dennise lemus will be admitted and pulmonary services consulted patient started on steroids Past medical history is significant for COPD, hyperlipidemia, hypertension, [place] ex-smoker, peripheral vascular disease with previous left AKA and left upper lung mass suspicious for bronchogenic carcinoma On review of systems patient is alert and oriented x 3. Patient denies chest pain or shortness of breath. Patient denies any urinary burning or frequency. Patient denies nausea vomiting or diarrhea On 07/08/2024 patient was seen and examined on the medical floor he is alert and oriented x 3 in no apparent distress, he is complaining of shortness of breath with any activity, and occasional cough, otherwise he denies any complaints there is no fever or chills no headache or dizziness no chest pain no nausea or vomiting no abdominal pain no diarrhea no urinary symptoms. On 07/09/2024 patient was seen and examined on the medical floor he is alert and oriented x 3 in no apparent distress he is still complaining of cough and shortness of breath, and generalized weakness otherwise he denies any complaints, there is no fever or chills no headache or dizziness no chest pain no palpitation no nausea or vomiting no abdominal pain no diarrhea and no urinary symptoms. Temperature is 97.9 pulse 68 respiration 17 blood pressure 142/73 pulse ox 96% on 5 L nasal cannula his white blood count is 8.5 hemoglobin 10.0 platelet count 374 sodium 126 potassium 5.0 chloride 91 CO2 33 BUN 40 creatinine 0.67 On 07/10/2024 patient was seen and examined on the medical floor he is alert and oriented x 3 in no apparent distress he is complaining of severe weakness and shortness of breath with any activity otherwise he denies any complaints there is no fever or chills no headache or dizziness no chest pain no nausea or vomiting no abdominal pain no diarrhea no urinary symptoms On 07/11/2024 patient is alert and oriented x 3. Patient remains on prednisone. Discharge planning to [facility] per social work patient should receive prior authorization today. Patient denies chest pain or shortness of breath. Patient denies nausea vomiting or diarrhea. Patient denies any urinary burning or frequency Patient Condition at Discharge: Stable Plan - Discharge Summary Discharge Rx Participant: Yes New Discharge Prescriptions: New predniSONE [Deltasone] 40 mg PO DAILY 20 Days #22 tab Lidocaine 4% Patch 1 patch TOPICAL DAILY patch Continue Aspirin 81 mg PO DAILY DULoxetine HCL [Cymbalta] 60 mg PO DAILY Pantoprazole Sodium [Protonix] 40 mg PO DAILY amLODIPine [Norvasc] 5 mg PO DAILY Albuterol Sulfate [Proair Hfa] 2 puff INHALATION RT-QID PRN PRN Reason: Shortness Of Breath Primidone [Mysoline] 25 mg PO HS Escitalopram [Lexapro] 20 mg PO DAILY Nitroglycerin Sl Tabs [Nitrostat] 0.4 mg SUBLINGUAL Q5M PRN 30 Days #25 tab PRN Reason: Chest Pain Multivitamins, Thera [Multivitamin (formulary)] 1 tab PO DAILY Melatonin 10 mg PO HS Lactulose [Constulose] 20 gm PO Q48H PRN PRN Reason: Constipation Baclofen 10 mg PO HS Atorvastatin [Lipitor] 80 mg PO DAILY #30 tab Metoprolol Succinate (ER) [Toprol XL] 25 mg PO DAILY #30 tab.er.24h Tamsulosin [Flomax] 0.4 mg PO DAILY Fluticasone/Umeclidin/Vilanter [Trelegy Ellipta 200-62.5-25] 1 puff INHALATION RT-DAILY Ipratropium-Albuterol Nebulize [Duoneb 0.5 mg-3 mg/3 ml Soln] 3 ml INHALATION RT-QID 30 Days #120 each Ferrous Sulfate [Feosol] 325 mg PO DAILY 30 Days #30 tab traZODone HCL [Desyrel] 100 mg PO HS Clopidogrel [Plavix] 75 mg PO DAILY Simethicone 180 mg PO DAILY No Action Gabapentin 600 mg PO TID 3 Days #9 tab HYDROcodone/APAP 10-325MG [[employer] 10-325] 1 tab PO Q6HR 3 Days #12 tab Discharge Medication List Aspirin 81 mg PO DAILY 01/14/14 [History] DULoxetine HCL [Cymbalta] 60 mg PO DAILY 01/14/14 [History] Pantoprazole Sodium [Protonix] 40 mg PO DAILY 06/13/18 [History] amLODIPine [Norvasc] 5 mg PO DAILY 06/13/18 [History] Atorvastatin [Lipitor] 80 mg PO DAILY #30 tab 07/20/20 [Rx] Metoprolol Succinate (ER) [Toprol XL] 25 mg PO DAILY #30 tab.er.24h 07/20/20 [Rx] Albuterol Sulfate [Proair Hfa] 2 puff INHALATION RT-QID PRN 08/29/21 [History] Tamsulosin [Flomax] 0.4 mg PO DAILY 08/29/21 [History] Primidone [Mysoline] 25 mg PO HS 07/12/22 [History] Escitalopram [Lexapro] 20 mg PO DAILY 03/23/23 [History] Fluticasone/Umeclidin/Vilanter [Trelegy Ellipta 200-62.5-25] 1 puff INHALATION RT-DAILY 03/23/23 [History] Ipratropium-Albuterol Nebulize [Duoneb 0.5 mg-3 mg/3 ml Soln] 3 ml INHALATION RT-QID 30 Days #120 each 04/21/23 [Rx] Ferrous Sulfate [Feosol] 325 mg PO DAILY 30 Days #30 tab 06/05/23 [Rx] Nitroglycerin Sl Tabs [Nitrostat] 0.4 mg SUBLINGUAL Q5M PRN 30 Days #25 tab 06/05/23 [Rx] Baclofen 10 mg PO HS 05/29/24 [History] Clopidogrel [Plavix] 75 mg PO DAILY 05/29/24 [History] Lactulose [Constulose] 20 gm PO Q48H PRN 05/29/24 [History] Melatonin 10 mg PO HS 05/29/24 [History] Multivitamins, Thera [Multivitamin (formulary)] 1 tab PO DAILY 05/29/24 [History] Simethicone 180 mg PO DAILY 05/29/24 [History] traZODone HCL [Desyrel] 100 mg PO HS 05/29/24 [History] Gabapentin 600 mg PO TID 3 Days #9 tab 06/06/24 [Rx] HYDROcodone/APAP 10-325MG [[employer] 10-325] 1 tab PO Q6HR 3 Days #12 tab 06/06/24 [Rx] Lidocaine 4% Patch 1 patch TOPICAL DAILY patch 07/11/24 [Rx] predniSONE [Deltasone] 40 mg PO DAILY 20 Days #22 tab 07/11/24 [Rx] Follow up Appointment(s)/Referral(s): Fidencio Barrientos MD [Primary Care Provider] - 1-2 days Discharge Disposition: TRANSFER TO SNF/ECF
--- NOTE | 2024-07-11 21:28 | P.PN ---
Subjective Progress Note Date: 07/11/24 07/11/2024, the patient remains clinically stable without any interval worsening in respiratory status of breathing. As stated, the patient has advanced COPD and she does have bilateral lung masses consistent with primary bronchogenic lung cancer. Nevertheless, based on his limited respiratory reserve and multiple comorbidities, tissue diagnosis not been established. Resting comfortably in bed. No significant cough or sputum production. Denies having any chest pain. Remains on oxygen therapy. Still on 5 L with a pulse ox of 99%. Remains on DuoNeb updrafts. Remains on Symbicort and the patient is currently on a prednisone burst taper. Rest of the medications remain unchanged. The patient has been on Lovenox for DVT prophylaxis. Producing adequate amount of urine output. Renal function remains stable with a BUN of 30 and a creatinine of 0.6. Sodium level is at 134 with a potassium level of 4.6. The white cell count is 7.1 with a hemoglobin 9.7 and a platelet count of 412. The patient is being discharged to ECF. He is Objective - Vital Signs Vital signs: Vital Signs Temp 98.2 F 07/11/24 19:19 Pulse 76 07/11/24 19:52 Resp 16 07/11/24 19:19 BP 138/63 07/11/24 19:19 Pulse Ox 99 07/11/24 19:19 FiO2 Intake & Output 07/11/24 07/11/24 07/12/24 06:59 18:59 06:59 Intake Total 1960 Output Total 1999 1100 Balance -1999 860 Weight 53.07 kg Intake: Oral 1959 Output: Urine 1999 1099 Other: Voiding Method Indwelling Catheter Indwelling Catheter Indwelling Catheter # Bowel Movements 3 - Exam GENERAL EXAM: Alert, pleasant, frail, weak 74-year-old male, on 5 L nasal cannula, comfortable in no apparent distress. HEAD: Normocephalic. EYES: Normal reaction of pupils, equal size. NOSE: Clear with pink turbinates. THROAT: No erythema or exudates. NECK: No masses, no JVD. CHEST: No chest wall deformity. LUNGS: Equal air entry with bilateral scattered rhonchi. CVS: S1 and S2 normal with no audible murmur, regular rhythm. ABDOMEN: No hepatosplenomegaly, normal bowel sounds, no guarding or rigidity. SPINE: No scoliosis or deformity SKIN: No rashes CENTRAL NERVOUS SYSTEM: No focal deficits, tone is normal in all 4 extremities. EXTREMITIES: Left [id number] amputation. There is no peripheral edema. No clubbing, no cyanosis. Peripheral pulses are intact. - Labs CBC & Chem 7: 07/11/24 05:16 07/11/24 05:16 Labs: Abnormal Lab Results - Last 24 Hours (Table) 07/11/24 07/11/24 Range/Units 05:16 05:16 RBC 3.67 L (4.40-5.60) X 10*6/uL Hgb 9.7 L (13.0-17.0) g/dL Hct 31.9 L (39.6-50.0) % MCH 26.4 L (27.0-32.0) pg MCHC 30.4 L (32.0-37.0) g/dL RDW 19.7 H (11.5-14.5) % Immature Gran # 0.08 H (0.00-0.04) X 10*3/uL Lymphocytes # 0.72 L (0.90-5.00) X 10*3/uL Eosinophils # 0.02 L (0.04-0.35) X 10*3/uL Sodium 134 L (135-145) mmol/L BUN 30.8 H (9.0-27.0) mg/dL BUN/Creatinine Ratio 51.33 H (12.00-20.00) Ratio Glucose 283 H (70-110) mg/dL Calcium 8.6 L (8.7-10.3) mg/dL Total Bilirubin 0.2 L (0.3-1.2) mg/dL Total Protein 5.3 L (6.2-8.2) g/dL Albumin 2.9 L (3.8-4.9) g/dL Albumin/Globulin Ratio 1.21 L (1.60-3.17) Ratio Assessment and Plan Plan: Acute on chronic hypoxemic respiratory failure, stable on 5 L of oxygen by nasal cannula Generalized global extreme weakness and debility secondary to progressive suspected bronchogenic carcinoma throughout the lungs Known history of lung masses suspected bronchogenic carcinoma. He did have a previous PET scan from August 2023 that showed a left upper lobe medial mass measuring 31 x 24 mm with metabolic activity compatible with malignancy. He did not keep any follow-up appointments after that time. A more recent CAT scan of his last admission here in May 2024 showed new bilateral lower lung masses with enlarging hilar adenopathy. Was to have a follow-up PET scan today but ended up in the emergency room yesterday Advanced chronic obstructive pulmonary disease, with an FEV1 24% of predicted, oxygen dependent Steroid-induced hyperglycemia, the patient remains on prednisone Hyperkalemia, recovered History of coronary artery disease, with previous PCI/stent History of hyperlipidemia Hypertension History of peripheral vascular disease History of prior left AKA Chronic anemia, hemoglobin stable History of GERD with esophagitis History of diverticulosis Former tobacco dependence Severe protein calorie malnutrition with a BMI of 14.6 kg/m Marijuana smoker Poor overall functional performance due to the above-mentioned multiple comorbidities and suspected advanced lung cancer Plan: Overall condition is unchanged and the patient remains stable, no new respiratory complaints Titrate the FiO2 as tolerated still on 5 L of O2 nasal cannula Continue DuoNeb nebulized treatments Symbicort 2 puffs twice a day Continue prednisone taper, currently at 40 mg Lovenox for DVT prophylaxis Prognosis remains quite poor Declined a hospice consult Recommend subacute rehab dilatation at discharge, waiting to be discharged
[2024-07-12] MEDS: METHYL SALICYLATE-MENTHOL OINT (3 OZ TUBE) TOPICAL PRN (00:31)
--- NOTE | 2024-07-12 15:05 | P.PN ---
Subjective Progress Note Date: 07/12/24 Baldev Joyce, is a 74-year-old male who presented to [facility] emergency room with a chief complaint of worsening shortness of breath, generalized weakness, O2 desaturation, and faulty oxygen concentrator at home. He was evaluated in the emergency room vital examination on presentation revealed a temperature of 98.2 pulse 83 respiration 20 blood pressure 145/77 pulse ox 95% on 5 L nasal cannula Laboratory data revealed a white blood count of 8.7 hemoglobin 12.2 platelet count 444 sodium 134 potassium 4.6 chloride 97 CO2 32 BUN 40 creatinine 0.62 Testing in the emergency room revealed chest x-ray showing similar right basilar and left perihilar opacities on background emphysematous and pulmonary fibrotic changes may represent infiltrates versus masses consider further evaluation with CT Patient was admitted to medical floor for further evaluation and treatment patient will be admitted and pulmonary services consulted patient started on steroids Past medical history is significant for COPD, hyperlipidemia, hypertension, [place] ex-smoker, peripheral vascular disease with previous left AKA and left upper lung mass suspicious for bronchogenic carcinoma On review of systems patient is alert and oriented x 3. Patient denies chest pain or shortness of breath. Patient denies any urinary burning or frequency. Patient denies nausea vomiting or diarrhea On 07/08/2024 patient was seen and examined on the medical floor he is alert and oriented x 3 in no apparent distress, he is complaining of shortness of breath with any activity, and occasional cough, otherwise he denies any complaints there is no fever or chills no headache or dizziness no chest pain no nausea or vomiting no abdominal pain no diarrhea no urinary symptoms. On 07/09/2024 patient was seen and examined on the medical floor he is alert and oriented x 3 in no apparent distress he is still complaining of cough and shortness of breath, and generalized weakness otherwise he denies any complaints, there is no fever or chills no headache or dizziness no chest pain no palpitation no nausea or vomiting no abdominal pain no diarrhea and no urinary symptoms. Temperature is 97.9 pulse 68 respiration 17 blood pressure 142/73 pulse ox 96% on 5 L nasal cannula his white blood count is 8.5 hemoglobin 10.0 platelet count 374 sodium 126 potassium 5.0 chloride 91 CO2 33 BUN 40 creatinine 0.67 On 07/10/2024 patient was seen and examined on the medical floor he is alert and oriented x 3 in no apparent distress he is complaining of severe weakness and shortness of breath with any activity otherwise he denies any complaints there is no fever or chills no headache or dizziness no chest pain no nausea or vomiting no abdominal pain no diarrhea no urinary symptoms. On 07/11/2024 patient is alert and oriented x 3. Patient remains on prednisone. Discharge planning to [facility] per social work patient should receive prior authorization today. Patient denies chest pain or shortness of breath. Patient denies nausea vomiting or diarrhea. Patient denies any urinary burning or frequency On 07/12/2024 patient was seen and examined on the medical floor he is alert and oriented x 3 in no apparent distress he is still complaining of cough and shortness of breath, and generalized weakness otherwise he denies any complaints, there is no fever or chills no headache or dizziness no chest pain no palpitation no nausea or vomiting no abdominal pain no diarrhea and no urinary symptoms. Objective - Vital Signs Vital signs: Vital Signs Temp 97.8 F 07/12/24 07:15 Pulse 74 07/12/24 07:15 Resp 18 07/12/24 07:15 BP 128/62 07/12/24 07:15 Pulse Ox 97 07/12/24 07:15 FiO2 Intake & Output 07/11/24 07/12/24 07/12/24 18:59 06:59 18:59 Intake Total 1960 540 Output Total 1100 1700 Balance 860 -1160 Weight 53.07 kg Intake: Oral 1960 540 Output: Urine 1100 1700 Other: Voiding Method Indwelling Catheter Indwelling Catheter # Bowel Movements 3 - Exam In general patient is alert and oriented x 3 in no distress HEENT head normocephalic and atraumatic Neck is supple no JVD no goiter no lymphadenopathy no carotid bruit Chest examination reveals a few scattered rhonchi no wheezing Cardiac exam reveals regular heart sounds S1 and S2 no gallops no murmurs Abdomen is soft nontender no organomegaly with normal bowel sounds Extremity exam reveals no edema no cyanosis or clubbing, left above-knee amputation Neurological examination reveals no gross focal deficits - Labs CBC & Chem 7: 07/11/24 05:16 07/11/24 05:16 Labs: Abnormal Lab Results - Last 24 Hours (Table) 07/11/24 07/11/24 Range/Units 05:16 05:16 RBC 3.67 L (4.40-5.60) X 10*6/uL Hgb 9.7 L (13.0-17.0) g/dL Hct 31.9 L (39.6-50.0) % MCH 26.4 L (27.0-32.0) pg MCHC 30.4 L (32.0-37.0) g/dL RDW 19.7 H (11.5-14.5) % Immature Gran # 0.08 H (0.00-0.04) X 10*3/uL Lymphocytes # 0.72 L (0.90-5.00) X 10*3/uL Eosinophils # 0.02 L (0.04-0.35) X 10*3/uL Sodium 134 L (135-145) mmol/L BUN 30.8 H (9.0-27.0) mg/dL BUN/Creatinine Ratio 51.33 H (12.00-20.00) Ratio Glucose 283 H (70-110) mg/dL Calcium 8.6 L (8.7-10.3) mg/dL Total Bilirubin 0.2 L (0.3-1.2) mg/dL Total Protein 5.3 L (6.2-8.2) g/dL Albumin 2.9 L (3.8-4.9) g/dL Albumin/Globulin Ratio 1.21 L (1.60-3.17) Ratio Assessment and Plan Assessment: 1. Shortness of breath secondary to acute on chronic COPD and acute on chronic hypoxic respiratory failure 2. History of bronchogenic carcinoma. Patient did receive outpatient PET scan and evaluated by pulmonary services 3. History of severe peripheral vascular disease with previous AKA 4. Chronic hypoxic respiratory failure maintained on home O2 5. History of tobacco use 6. History of depression 7. History of hyperlipidemia 8. History of coronary artery disease with previous angioplasty and stent placement 9. History of anemia maintained on iron supplements 10. History of degenerative disc disease maintained on pain control DVT prophylaxis Lovenox. GI prophylax Protonix Patient maintained on steroids pulmonary services consulted
[2024-07-13 02:02] VITALS: RESP 16
--- NOTE | 2024-07-13 08:58 | P.PN ---
Subjective Progress Note Date: 07/13/24 Baldev Joyce, is a 74-year-old male who presented to [facility] emergency room with a chief complaint of worsening shortness of breath, generalized weakness, O2 desaturation, and faulty oxygen concentrator at home. He was evaluated in the emergency room vital examination on presentation revealed a temperature of 98.2 pulse 83 respiration 20 blood pressure 145/77 pulse ox 95% on 5 L nasal cannula Laboratory data revealed a white blood count of 8.7 hemoglobin 12.2 platelet count 444 sodium 134 potassium 4.6 chloride 97 CO2 32 BUN 40 creatinine 0.62 Testing in the emergency room revealed chest x-ray showing similar right basilar and left perihilar opacities on background emphysematous and pulmonary fibrotic changes may represent infiltrates versus masses consider further evaluation with CT Patient was admitted to medical floor for further evaluation and treatment patient will be admitted and pulmonary services consulted patient started on steroids Past medical history is significant for COPD, hyperlipidemia, hypertension, [place] ex-smoker, peripheral vascular disease with previous left AKA and left upper lung mass suspicious for bronchogenic carcinoma On review of systems patient is alert and oriented x 3. Patient denies chest pain or shortness of breath. Patient denies any urinary burning or frequency. Patient denies nausea vomiting or diarrhea On 07/08/2024 patient was seen and examined on the medical floor he is alert and oriented x 3 in no apparent distress, he is complaining of shortness of breath with any activity, and occasional cough, otherwise he denies any complaints there is no fever or chills no headache or dizziness no chest pain no nausea or vomiting no abdominal pain no diarrhea no urinary symptoms. On 07/09/2024 patient was seen and examined on the medical floor he is alert and oriented x 3 in no apparent distress he is still complaining of cough and shortness of breath, and generalized weakness otherwise he denies any complaints, there is no fever or chills no headache or dizziness no chest pain no palpitation no nausea or vomiting no abdominal pain no diarrhea and no urinary symptoms. Temperature is 97.9 pulse 68 respiration 17 blood pressure 142/73 pulse ox 96% on 5 L nasal cannula his white blood count is 8.5 hemoglobin 10.0 platelet count 374 sodium 126 potassium 5.0 chloride 91 CO2 33 BUN 40 creatinine 0.67 On 07/10/2024 patient was seen and examined on the medical floor he is alert and oriented x 3 in no apparent distress he is complaining of severe weakness and shortness of breath with any activity otherwise he denies any complaints there is no fever or chills no headache or dizziness no chest pain no nausea or vomiting no abdominal pain no diarrhea no urinary symptoms. On 07/11/2024 patient is alert and oriented x 3. Patient remains on prednisone. Discharge planning to [facility] per social work patient should receive prior authorization today. Patient denies chest pain or shortness of breath. Patient denies nausea vomiting or diarrhea. Patient denies any urinary burning or frequency On 07/12/2024 patient was seen and examined on the medical floor he is alert and oriented x 3 in no apparent distress he is still complaining of cough and shortness of breath, and generalized weakness otherwise he denies any complaints, there is no fever or chills no headache or dizziness no chest pain no palpitation no nausea or vomiting no abdominal pain no diarrhea and no urinary symptoms. On 07/13/2024 patient is alert and oriented x 3. Peer to peer was completed yesterday discharge planning to [facility]. Awaiting updated PT note. Patient remains medically stable. Patient denies chest pain or shortness of breath. Patient denies nausea vomiting or diarrhea. Patient denies any urinary burning or frequency Objective - Vital Signs Vital signs: Vital Signs Temp 98.0 F 07/13/24 07:41 Pulse 77 07/13/24 07:41 Resp 16 07/13/24 01:03 BP 149/70 07/13/24 07:41 Pulse Ox 96 07/13/24 07:41 FiO2 Intake & Output 07/12/24 07/13/24 07/13/24 18:59 06:59 18:59 Intake Total 1644 684 240 Output Total 775 1425 Balance 869 -741 240 Intake: Oral 1644 684 240 Output: Urine 775 1425 Uretheral (Russo) 100 Other: Voiding Method Indwelling Catheter Indwelling Catheter # Bowel Movements 1 1 - Exam In general patient is alert and oriented x 3 in no distress HEENT head normocephalic and atraumatic Neck is supple no JVD no goiter no lymphadenopathy no carotid bruit Chest examination reveals a few scattered rhonchi no wheezing Cardiac exam reveals regular heart sounds S1 and S2 no gallops no murmurs Abdomen is soft nontender no organomegaly with normal bowel sounds Extremity exam reveals no edema no cyanosis or clubbing, left above-knee amputation Neurological examination reveals no gross focal deficits - Labs CBC & Chem 7: 07/11/24 05:16 07/11/24 05:16 Assessment and Plan Assessment: 1. Shortness of breath secondary to acute on chronic COPD and acute on chronic hypoxic respiratory failure 2. History of bronchogenic carcinoma. Patient did receive outpatient PET scan and evaluated by pulmonary services 3. History of severe peripheral vascular disease with previous AKA 4. Chronic hypoxic respiratory failure maintained on home O2 5. History of tobacco use 6. History of depression 7. History of hyperlipidemia 8. History of coronary artery disease with previous angioplasty and stent placement 9. History of anemia maintained on iron supplements 10. History of degenerative disc disease maintained on pain control DVT prophylaxis Lovenox. GI prophylax Protonix Patient maintained on steroids pulmonary services consulted
[2024-07-13 11:34] VITALS: BP 142/61; TEMP 98.7
[2024-07-13 15:24] VITALS: PULSE 88
== END 2024-07-13 17:04 | disposition home health service (06) | DRG 190 ==
LOC: EC 07:25 → 5NMEDONC 15:06 → OBSVTOIN 15:07 → 5NMEDONC 17:07
PROVIDERS: ADMIT Internal Medicine; ATTEND Internal Medicine
DX: J44.1 Chronic obstructive pulmonary disease with (acute) exacerbation (principal); E43 Unspecified severe protein-calorie malnutrition; J96.21 Acute and chronic respiratory failure with hypoxia; R64 Cachexia; C79.9 Secondary malignant neoplasm of unspecified site; C34.12 Malignant neoplasm of upper lobe, left bronchus or lung; D64.9 Anemia, unspecified; E78.5 Hyperlipidemia, unspecified; I73.9 Peripheral vascular disease, unspecified; F32.A Depression, unspecified; I10 Essential (primary) hypertension; Z68.1 Body mass index [BMI] 19.9 or less, adult; Z89.612 Acquired absence of left leg above knee; Z99.81 Dependence on supplemental oxygen; I25.10 Atherosclerotic heart disease of native coronary artery without angina pectoris; I25.2 Old myocardial infarction; Z87.891 Personal history of nicotine dependence; E87.5 Hyperkalemia; T38.0X5A Adverse effect of glucocorticoids and synthetic analogues, initial encounter; Z88.1 Allergy status to other antibiotic agents; G43.909 Migraine, unspecified, not intractable, without status migrainosus; G89.29 Other chronic pain; K21.00 Gastro-esophageal reflux disease with esophagitis, without bleeding; M54.9 Dorsalgia, unspecified; M19.90 Unspecified osteoarthritis, unspecified site; R59.0 Localized enlarged lymph nodes; R73.9 Hyperglycemia, unspecified; Z71.3 Dietary counseling and surveillance; Z79.02 Long term (current) use of antithrombotics/antiplatelets; Z79.899 Other long term (current) drug therapy; Z87.01 Personal history of pneumonia (recurrent); Z79.51 Long term (current) use of inhaled steroids; Z90.79 Acquired absence of other genital organ(s); Z79.82 Long term (current) use of aspirin; Z95.5 Presence of coronary angioplasty implant and graft
CPT/HCPCS: 36415; 71046; 80048; 80053; 83605; 83880; 84145; 84484; 85025; 85610; 85730; 87636; 93005; 94640; 94760; 99285

== ENCOUNTER 2024-07-25 09:11 | Emergency (ER) | payer MEDICARE ==
[2024-07-25 09:17] VITALS: RESP 18; TEMP 97.4
--- NOTE | 2024-07-25 09:44 | ED ---
General Adult HPI - General Chief complaint: Urogenital Stated complaint: urogenital Time Seen by Provider: 07/25/24 09:15 Source: patient, EMS, RN notes reviewed, old records reviewed Mode of arrival: EMS - History of Present Illness Initial comments: Patient is a 74-year-old male who presents emergency department complaining of Russo catheter malfunction. Patient has had a Russo catheter for approximately 4 weeks. Also is a history of MIs, hypertension, COPD, hyperlipidemia. Russo catheter stopped draining sometime this morning he was having suprapubic abdomi nal discomfort. Was transferred here for further care. Upon arrival, bladder scan was completed which showed 300 cc of urine in the bladder. He denies any other acute complaints. Presents for further evaluation at this time. Denies fevers or chills. Denies chest pain or abdominal pain other than suprapubic discomfort. - Related Data Home Medications Medication Instructions Recorded Confirmed Aspirin 81 mg PO DAILY 01/14/14 07/06/24 DULoxetine HCL [Cymbalta] 60 mg PO DAILY 01/14/14 07/06/24 Pantoprazole Sodium [Protonix] 40 mg PO DAILY 06/13/18 07/06/24 amLODIPine [Norvasc] 5 mg PO DAILY 06/13/18 07/06/24 Albuterol Sulfate [Proair Hfa] 2 puff INHALATION RT-QID PRN 08/29/21 07/06/24 Tamsulosin [Flomax] 0.4 mg PO DAILY 08/29/21 07/06/24 Primidone [Mysoline] 25 mg PO HS 07/12/22 07/06/24 Escitalopram [Lexapro] 20 mg PO DAILY 03/23/23 07/06/24 Fluticasone/Umeclidin/Vilanter 1 puff INHALATION RT-DAILY 03/23/23 07/06/24 [Trelegy Ellipta 200-62.5-25] Baclofen 10 mg PO HS 05/29/24 07/06/24 Clopidogrel [Plavix] 75 mg PO DAILY 05/29/24 07/06/24 Lactulose [Constulose] 20 gm PO Q48H PRN 05/29/24 07/06/24 Melatonin 10 mg PO HS 05/29/24 07/06/24 Multivitamins, Thera [Multivitamin 1 tab PO DAILY 05/29/24 07/06/24 (formulary)] Simethicone 180 mg PO DAILY 05/29/24 07/06/24 traZODone HCL [Desyrel] 100 mg PO HS 05/29/24 07/06/24 Previous Rx's Medication Instructions Recorded Atorvastatin [Lipitor] 80 mg PO DAILY #30 tab 07/20/20 Metoprolol Succinate (ER) [Toprol 25 mg PO DAILY #30 tab.er.24h 07/20/20 XL] Ipratropium-Albuterol Nebulize 3 ml INHALATION RT-QID 30 Days 04/21/23 [Duoneb 0.5 mg-3 mg/3 ml Soln] #120 each Ferrous Sulfate [Feosol] 325 mg PO DAILY 30 Days #30 tab 06/05/23 Nitroglycerin Sl Tabs [Nitrostat] 0.4 mg SUBLINGUAL Q5M PRN 30 Days 06/05/23 #25 tab ALPRAZolam [Xanax] 0.25 mg PO QID PRN 3 Days #12 tab 07/11/24 Gabapentin 600 mg PO TID 3 Days #9 tab 07/11/24 HYDROcodone/APAP 10-325MG [[place] 1 tab PO Q6HR 3 Days #12 tab 07/11/24 10-325] Lidocaine 4% Patch 1 patch TOPICAL DAILY patch 07/11/24 predniSONE [Deltasone] 40 mg PO DAILY 20 Days #22 tab 07/11/24 Ciprofloxacin HCl [Cipro] 500 mg PO Q12HR 10 Days #20 tab 07/25/24 Allergies Allergy/AdvReac Type Severity Reaction Status Date / Time azithromycin [From Zithromax] Allergy Rash/Hives Verified 07/25/24 09:17 Review of Systems ROS Statement: Those systems with pertinent positive or pertinent negative responses have been documented in the HPI. ROS Other: All systems not noted in ROS Statement are negative. 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 knee wound + FOR MRSA. History of high left above-knee amputation done approximately 2009. Last Myocardial Infarction Date:: 2003 History of Any Multi-Drug Resistant Organisms: Acinetobacter (MDRO), MRSA Date of last positivie culture/infection: 04/02/16 MDRO Source:: LT KNEE WOUND Past Surgical History: Heart Catheterization With Stent, Orthopedic Surgery Additional Past Surgical History / Comment(s): STENTS TO LEFT GROIN, LEFT ABOVE THE KNEE AMPUTATION, unsuccessful revascularization left leg, shoulder surgery, surgical debridement of necrotic tissue left scrotal area, LT AKA 03/03/16. left testicle removed. heart stent x1 broken left hip Past Anesthesia/Blood Transfusion Reactions: No Reported Reaction Date of Last Stent Placement:: 2006 Past Psychological History: Depression Smoking Status: Former smoker Past Alcohol Use History: None Reported Past Drug Use History: Marijuana - Past Family History Sister(s) History Unknown: Yes Family Medical History: Cancer Additional Family Medical History / Comment(s): double mastectomy, still surviving Father History Unknown: Yes Family Medical History: No Reported History Mother History Unknown: Yes Family Medical History: No Reported History Additional Family Medical History / Comment(s): hypoglycemia General Exam - General Exam Comments Initial Comments: General: Appears in no acute distress. HEAD: Normal with no signs of head trauma. EYES: EOMI ENT: Hearing grossly intact, normal oropharynx. RESPIRATORY: Clear breath sounds bilaterally. No wheezes, rales, or rhonchi. C/V: Regular rate and rhythm. S1 and S2 auscultated, peripheral pulses 2+ and intact throughout ABD: Abdomen is soft, nondistended. Mild suprapubic discomfort on palpation prior to removal of Russo which resolved after removal of Russo. No guarding or rebound tenderness. EXT: No obvious deformity. Left AKA SKIN: No rashes or lesions observed on exposed skin. NEURO: Alert and oriented x 4. Course Vital Signs 07/25/24 07/25/24 09:13 10:46 Temperature 97.4 F L Pulse Rate 65 66 Respiratory 18 18 Rate Blood Pressure 155/64 153/70 O2 Sat by Pulse 100 98 Oximetry Medical Decision Making - Medical Decision Making Was pt. sent in by a medical professional or institution (, PA, MEDICAL FILE CLERK, urgent care, hospital, or long term...) When possible be specific @ -No Did you speak to anyone other than the patient for history (EMS, parent, family, police, friend...)? What history was obtained from this source @ -No Did you review nursing and triage notes (agree or disagree)? Why? @ -I reviewed and agree with nursing and triage notes Were old charts reviewed (outside hosp., previous admission, EMS record, old EKG, old radiological studies, urgent care reports/EKG's, long term records)? Report findings @ -No old charts were reviewed Differential Diagnosis (chest pain, altered mental status, abdominal pain women, abdominal pain men, vaginal bleeding, weakness, fever, dyspnea, syncope, head ache, dizziness, GI bleed, back pain, seizure, CVA, palpatations, mental health, musculoskeletal)? @ -Russo catheter malfunction, UTI, Russo catheter blockage. This list is not all inclusive. EKG interpreted by me (3pts min.). @ -None done X-rays interpreted by me (1pt min.). @ -None done CT interpreted by me (1pt min.). @ -None done U/S interpreted by me (1pt. min.). @ -None done What testing was considered but not performed or refused? (CT, X-rays, U/S, labs)? Why? @ -None What meds were considered but not given or refused? Why? @ -None Did you discuss the management of the patient with other professionals (professionals i.e. , PA, MEDICAL FILE CLERK, lab, RT, psych nurse, social insurance administrator, tinner automatic, teacher, privacy officer, clinical case manager)? Give summary @ -No Was smoking cessation discussed for >3mins.? @ -No Was critical care preformed (if so, how long)? @ -No Were there social determinants of health that impacted care today? How? (Homelessness, low income, unemployed, alcoholism, drug addiction, transportation, low edu. Level, literacy, decrease access to med. care, custodial, rehab)? @ -No Was there de-escalation of care discussed even if they declined (Discuss DNR or withdrawal of care, Hospice)? DNR status @ -No What co-morbidities impacted this encounter? (DM, HTN, Smoking, COPD, CAD, Cancer, CVA, ARF, Chemo, Hep., AIDS, mental health diagnosis, sleep apnea, morbid obesity)? @ -Russo catheter Was patient admitted / discharged? Hospital course, mention meds given and route, prescriptions, significant lab abnormalities, going to OR and other pertinent info. @ -Patient has a malfunctioning Russo catheter. Vital signs within acceptable limits. Bladder scan completed by nursing staff showed greater than 300 cc of urine in the bladder. Russo catheter was removed and patient is currently urinating some out however did discuss with them and we will replace Russo catheter as it has been 4 weeks and he was concerned that he may become urinary retention again. I am in agreement this plan. Vitals otherwise within acceptable limits. We will obtain urine analysis as well as replace his Russo catheter. Patient will be observed to ensure that the Russo catheter remains f unctional and then discharged home. He was in agreement this plan. Russo catheter replaced successfully and is now functioning. Urinalysis concerning for UTI. I did discuss with the patient and he did ask for a paper prescription for an antibiotic which will be provided. He is given a dose of IV Rocephin prior to discharge. He was in agreement this plan. Urine culture sent I will provide the patient with a prescription for ciprofloxacin. I instructed the patient to follow up with their PCP in the next 1-3 days.. I explained that the patient should return to the emergency department if they experience any worsening symptoms. Strict return precautions were discussed with the patient. The patient expressed understanding of these instructions. I answered all questions that the patient had. The patient was discharged home in good condition with their prescriptions and follow up information. Undiagnosed new problem with uncertain prognosis? @ -No Drug Therapy requiring intensive monitoring for toxicity (Heparin, Nitro, Insulin, Cardizem)? @ -No Were any procedures done? @ -No Diagnosis/symptom? @ -Russo catheter malfunction, UTI Acute, or Chronic, or Acute on Chronic? @ -Acute Uncomplicated (without systemic symptoms) or Complicated (systemic symptoms)? @ -Uncomplicated Side effects of treatment? @ -No Exacerbation, Progression, or Severe Exacerbation? @ -No Poses a threat to life or bodily function? How? (Chest pain, USA, PA, pneumonia, PE, COPD, DKA, ARF, appy, cholecystitis, CVA, Diverticulitis, Homicidal, Suicidal, threat to staff... and all critical care pts) @ -No - Lab Data Lab Results 07/25/24 Range/Units 09:33 Urine Color Light Yellow Urine Appearance Cloudy (Clear) Urine pH 8.5 H (5.0-8.0) Ur Specific [place] 1.015 (1.001-1.035) Urine Protein Trace H (Negative) Urine Glucose (UA) Negative (Negative) Urine Ketones Negative (Negative) Urine Blood Negative (Negative) Urine Nitrite Positive (Negative) Urine Bilirubin Negative (Negative) Urine Urobilinogen <2.0 (<2.0) mg/dL Ur Leukocyte Esterase Large H (Negative) Urine RBC 5 (0-5) /hpf Urine WBC 10 H (0-5) /hpf Ur Squamous Epith Cells <1 (0-4) /hpf Disposition Clinical Impression: Malfunction of Russo catheter, UTI (urinary tract infection) Disposition: HOME SELF-CARE Condition: Good Instructions (If sedation given, give patient instructions): Urinary Tract Infection in Men (ED) Prescriptions: Ciprofloxacin HCl [Cipro] 500 mg PO Q12HR 10 Days #20 tab Is patient prescribed a controlled substance at d/c from ED?: No Referrals: Fidencio Barrientos MD [Primary Care Provider] - 1-2 days Time of Disposition: 10:35
[2024-07-25 09:52] LABS: Appearance,Urine Cloudy (Clear); Bilirubin,Urine Negative (Negative); Blood,Urine Negative (Negative); Color,Urine Light Yellow; Glucose,Urine (UA) Negative (Negative); Ketones,Urine Negative (Negative); Leukocyte Esterase,Urine Large (Negative); Nitrite,Urine Positive (Negative); PH, Urine 8.5 (5.0-8.0); Protein,Urine Trace (Negative); RBC,Urine 5 /hpf (0-5); Specific Gravity,Urine 1.015 (1.001-1.035); Squamous Epithelial Cell,Urine <1 /hpf (0-4); Urobilinogen,Urine <2.0 mg/dL (<2.0); WBC,Urine 10 /hpf (0-5)
[2024-07-25] MEDS: cefTRIAXone IN SWFI 1,000 MG/10 ML SYRINGE IVP STA (10:02)
[2024-07-25 10:48] VITALS: BP 153/70; PULSE 66
== END 2024-07-25 11:21 | disposition home or self-care (01) ==
LOC: EC 09:11
DX: T83.011A Breakdown (mechanical) of indwelling urethral catheter, initial encounter (principal); N39.0 Urinary tract infection, site not specified; Z87.891 Personal history of nicotine dependence; Z88.1 Allergy status to other antibiotic agents
CPT/HCPCS: 51798; 81001; 87086; 99284; 96374; 51702; J0696

== ENCOUNTER 2024-08-15 08:57 | Observation (INO) | payer MEDICARE ==
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
[2024-08-15] MEDS: LACTATED RINGERS 1,000 ML IV ONE (09:08)
[2024-08-15 09:18] LABS: Eosinophils # (A) 0.11 10*3/uL (0.04-0.35); Eosinophils % (A) 1.1 %; HCT 39.6 % (39.6-50.0); HGB 12.6 g/dL (13.0-17.0); Lymphocytes # (A) 0.64 10*3/uL (0.90-5.00); Lymphocytes % (A) 6.2 %; MCH 27.3 pg (27.0-32.0); MCHC 31.8 g/dL (32.0-37.0); MCV 85.7 fL (80.0-97.0); Mean Platelet Volume 10.2 fL (9.5-12.2); Monocytes # (A) 0.58 10*3/uL (0.20-1.00); Monocytes % (A) 5.6 %; Neutrophils # (A) 8.78 10*3/uL (1.80-7.70); Neutrophils % (A) 85.4 %; Platelet Count 639 10*3/uL (140-440); RBC 4.62 10*6/uL (4.40-5.60); RDW 17.7 % (11.5-14.5); WBC 10.28 10*3/uL (4.50-10.00)
[2024-08-15] MEDS: DIPH,PERTUS(ACELL)TETVAC-LF 0.5 ML VIAL IM ONE (09:45)
[2024-08-15 09:48] LABS: Appearance,Urine Turbid (Clear); Bilirubin,Urine Negative (Negative); Blood,Urine Large (Negative); Color,Urine Light Red; Glucose,Urine (UA) Negative (Negative); Ketones,Urine Negative (Negative); Leukocyte Esterase,Urine Large (Negative); Mucus,Urine Rare /hpf; Nitrite,Urine Negative (Negative); PH, Urine 6.5 (5.0-8.0); Protein,Urine 1+ (Negative); RBC,Urine >182 /hpf (0-5); WBC,Urine >182 /hpf (0-5)
[2024-08-15 09:49] LABS: ALT 16 U/L (4-49); AST 22 U/L (17-59); African American GFR (CKD) >90 (>60 ml/min/1.73 sqM); Albumin 3.3 g/dL (3.5-5.0); Alkaline Phosphatase 83 U/L (38-126); Anion Gap 3 mmol/L; Blood Urea Nitrogen 39 mg/dL (9-20); Carbon Dioxide 33 mmol/L (22-30); Chloride 101 mmol/L (98-107); Glucose 210 mg/dL (74-99); Non-African American GFR(CKD) >90 (>60 ml/min/1.73 sqM); Potassium 5.1 mmol/L (3.5-5.1); Sodium 137 mmol/L (137-145); Total Bilirubin 0.6 mg/dL (0.2-1.3); Total Protein 6.3 g/dL (6.3-8.2)
[2024-08-15] MEDS: BACITRACIN OINT 1 EACH PACKET TOPICAL ONE (09:51)
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
[2024-08-15] MEDS ORDERED: NALOXONE 0.4 MG/ML 1 ML VIAL IV PRN (10:52)
[2024-08-15] MEDS: cefTRIAXone IN SWFI 1,000 MG/10 ML SYRINGE IVP STA (11:34)
[2024-08-15] MEDS: SODIUM CHLORIDE 0.9% 1,000 ML IV SCH (11:34)
[2024-08-15] MEDS ORDERED: ALBUTEROL NEBULIZED 2.5 MG/3 ML INHALATION PRN (12:38)
[2024-08-15] MEDS ORDERED: LACTULOSE 20 GM/30 ML CUP PO PRN (12:38)
[2024-08-15] MEDS ORDERED: NITROGLYCERIN SL TABS 0.4 MG TAB SUBLINGUAL PRN (12:38)
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
[2024-08-15] MEDS: MORPHINE SULFATE 4 MG/ML SYRINGE IVP STA (14:13)
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
[2024-08-15] MEDS: HYDROcodone/APAP 10-325MG 1 EACH TAB PO SCH (17:20)
[2024-08-15] MEDS: GABAPENTIN 300 MG CAP PO SCH (17:20)
[2024-08-15] MEDS: IPRATROPIUM-ALBUTEROL 3 ML NEB INHALATION SCH (18:19)
[2024-08-15] MEDS: SYMBICORT 160-4.5 MCG INHALER INHALATION SCH (18:20)
[2024-08-15] MEDS: MELATONIN 5 MG TABLET PO SCH (21:41)
[2024-08-15] MEDS: PRIMIDONE 50 MG TAB PO SCH (21:56)
[2024-08-16] MEDS: ALPRAZolam 0.25 MG TAB PO PRN (02:23)
[2024-08-16 06:47] LABS: Basophils # (A) 0.09 10*3/uL (0.00-0.10); Basophils % (A) 0.7 %; Eosinophils # (A) 0.26 10*3/uL (0.04-0.35); HCT 41.2 % (39.6-50.0); HGB 12.7 g/dL (13.0-17.0); Lymphocytes # (A) 0.93 10*3/uL (0.90-5.00); Lymphocytes % (A) 7.2 %; MCH 26.9 pg (27.0-32.0); MCHC 30.8 g/dL (32.0-37.0); MCV 87.3 fL (80.0-97.0); Mean Platelet Volume 10.5 fL (9.5-12.2); Monocytes # (A) 0.83 10*3/uL (0.20-1.00); Monocytes % (A) 6.5 %; Neutrophils # (A) 10.65 10*3/uL (1.80-7.70); Neutrophils % (A) 82.9 %; Platelet Count 654 10*3/uL (140-440); RBC 4.72 10*6/uL (4.40-5.60); RDW 17.4 % (11.5-14.5); WBC 12.85 10*3/uL (4.50-10.00)
[2024-08-16 07:08] LABS: ALT 16 U/L (4-49); AST 25 U/L (17-59); African American GFR (CKD) >90 (>60 ml/min/1.73 sqM); Albumin 3.1 g/dL (3.5-5.0); Alkaline Phosphatase 85 U/L (38-126); Anion Gap 6 mmol/L; Blood Urea Nitrogen 27 mg/dL (9-20); Calcium 8.9 mg/dL (8.4-10.2); Carbon Dioxide 28 mmol/L (22-30); Chloride 103 mmol/L (98-107); Glucose 154 mg/dL (74-99); Non-African American GFR(CKD) >90 (>60 ml/min/1.73 sqM); Potassium 4.8 mmol/L (3.5-5.1); Sodium 137 mmol/L (137-145); Total Bilirubin 0.6 mg/dL (0.2-1.3)
[2024-08-16] MEDS: ENOXAPARIN 40 MG/0.4 ML SYRINGE SQ SCH (09:34)
[2024-08-16] MEDS: ASPIRIN 81 MG PO SCH (09:34)
[2024-08-16] MEDS: MULTIVITAMINS, THERA 1 EACH TAB PO SCH (09:34)
[2024-08-16] MEDS: ATORVASTATIN 80 MG TAB PO SCH (09:34)
[2024-08-16] MEDS: METOPROLOL SUCCINATE (ER) 25 MG TAB.ER.24H PO SCH (09:34)
[2024-08-16] MEDS: PANTOPRAZOLE 40 MG TABLET PO SCH (09:35)
[2024-08-16] MEDS: CLOPIDOGREL 75 MG TAB PO SCH (09:35)
[2024-08-16] MEDS: amLODIPine 5 MG TAB PO SCH (09:35)
[2024-08-16] MEDS: DULoxetine HCL 60 MG CAPSULE.DR PO SCH (09:35)
[2024-08-16] MEDS: ESCITALOPRAM 20 MG TAB PO SCH (09:35)
[2024-08-16] MEDS: TAMSULOSIN 0.4 MG CAP.ER.24H PO SCH (09:35)
[2024-08-16] MEDS: SIMETHICONE 80 MG CHEWABLE PO SCH (09:36)
[2024-08-16] MEDS: FERROUS SULFATE 325 MG TAB PO SCH (09:36)
[2024-08-16] MEDS: CEPHALEXIN 500 MG CAP PO SCH (12:26)
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
--- NOTE | 2024-08-16 13:19 | US ---
EXAMINATION TYPE: US kidneys/renal and bladder DATE OF EXAM: 08/16/2024 COMPARISON: CT urogram 2021 CLINICAL INDICATION: Male, 74 years old with history of Hematuria; Hematuria TECHNIQUE: Grayscale imaging of the bilateral kidneys and urinary bladder: FINDINGS: EXAM MEASUREMENTS: Right Kidney: 10 x 3.7 x 4.1 cm Left Kidney: 11 x 5.0 x 3.7 cm Right Kidney: Anechoic area seen mid pole measuring 1.4 x 1.4 x 1.2 cm. Left Kidney: Anechoic area upper pole 1.1 x .8 x 1.3 cm. Bladder: Not well visualized has cathter in. There is no evidence for hydronephrosis at this point in time. No nephrolithiasis is seen. Small sim ple-appearing thin-walled cysts bilaterally are noted that do not require follow-up. The urinary nancy dder is collapsed by Russo catheter. IMPRESSION: Source of patient's symptoms not identified. If symptoms persist further investigation wi th repeat CT urogram would be warranted. [facility], , 08/16/2024 1:16 PM
[2024-08-16 14:49] VITALS: RESP 16
[2024-08-16 15:58] VITALS: BMI 14.6
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
[2024-08-17 04:29] LABS: Basophils # (A) 0.07 10*3/uL (0.00-0.10); Basophils % (A) 0.7 %; Eosinophils # (A) 0.37 10*3/uL (0.04-0.35); Eosinophils % (A) 3.7 %; HCT 38.5 % (39.6-50.0); HGB 11.8 g/dL (13.0-17.0); Lymphocytes # (A) 0.86 10*3/uL (0.90-5.00); Lymphocytes % (A) 8.7 %; MCH 26.8 pg (27.0-32.0); MCHC 30.6 g/dL (32.0-37.0); MCV 87.3 fL (80.0-97.0); Mean Platelet Volume 10.2 fL (9.5-12.2); Monocytes # (A) 0.71 10*3/uL (0.20-1.00); Monocytes % (A) 7.2 %; Neutrophils # (A) 7.83 10*3/uL (1.80-7.70); Platelet Count 547 10*3/uL (140-440); RBC 4.41 10*6/uL (4.40-5.60); RDW 17.5 % (11.5-14.5); WBC 9.91 10*3/uL (4.50-10.00)
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
[2024-08-17 18:58] VITALS: BP 118/64; PULSE 79; TEMP 97.7
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
== END 2024-08-17 20:20 | disposition other institution (70) ==
LOC: EC 08:57 → 6NMEDSUR 10:52 → 1SOBS 14:24 → 6NMEDSUR 08-17 16:34
PROVIDERS: ADMIT Surgery; ATTEND Surgery
DX: N39.0 Urinary tract infection, site not specified (principal); T23.202A Burn of second degree of left hand, unspecified site, initial encounter; T23.201A Burn of second degree of right hand, unspecified site, initial encounter; T20.20XA Burn of second degree of head, face, and neck, unspecified site, initial encounter; T59.811A Toxic effect of smoke, accidental (unintentional), initial encounter; Y26.XXXA Exposure to smoke, fire and flames, undetermined intent, initial encounter; J44.9 Chronic obstructive pulmonary disease, unspecified; J96.11 Chronic respiratory failure with hypoxia; E78.5 Hyperlipidemia, unspecified; F17.210 Nicotine dependence, cigarettes, uncomplicated; F32.A Depression, unspecified; I10 Essential (primary) hypertension; I25.10 Atherosclerotic heart disease of native coronary artery without angina pectoris; I25.2 Old myocardial infarction; I73.9 Peripheral vascular disease, unspecified; D64.9 Anemia, unspecified; G43.909 Migraine, unspecified, not intractable, without status migrainosus; G89.29 Other chronic pain; M19.90 Unspecified osteoarthritis, unspecified site; M54.9 Dorsalgia, unspecified; Z88.1 Allergy status to other antibiotic agents; Z79.82 Long term (current) use of aspirin; Z79.899 Other long term (current) drug therapy; Z79.02 Long term (current) use of antithrombotics/antiplatelets; Z79.51 Long term (current) use of inhaled steroids; Z99.81 Dependence on supplemental oxygen; Z95.5 Presence of coronary angioplasty implant and graft; Z90.79 Acquired absence of other genital organ(s); Z89.612 Acquired absence of left leg above knee; Z85.118 Personal history of other malignant neoplasm of bronchus and lung; Z23 Encounter for immunization
CPT/HCPCS: 96372 ×2; 90471; 96361; 96365; 96375; 99285; 36415; 94640 ×6; 94760 ×2; 93005; 80053 ×2; 85025 ×3; 81001; 87086; 87077; 87186; 71046; 76770; 90715; G0378 ×4; J2270; J1650 ×2; J0696

== ENCOUNTER 2024-09-19 04:53 | Emergency (ER) | payer MEDICARE ==
[2024-09-19 05:01] VITALS: RESP 18
--- NOTE | 2024-09-19 06:13 | ED ---
General Adult HPI <Felix Goncalves - Last Filed: 09/19/24 07:41> - General Source: patient Mode of arrival: EMS Limitations: no limitations <Key - Last Filed: 09/19/24 17:52> - General Chief complaint: Urogenital Stated complaint: Cath issue Time Seen by Provider: 09/19/24 05:14 - History of Present Illness Initial comments: Patient is a pleasant 74-year-old gentleman, past medical history of bronchogenic carcinoma, COPD on 2 to 3 L home oxygen, left AKA presenting today for blocked Grove catheter. Patient has chronic indwelling Grove. States woke up at 3 AM with urine coming out from around his Grove catheter and penile pain. Took 1 home [place] prior to arrival. Denies nausea, vomiting, flank pain, melena, hematochezia, hematuria,fevers. He has chronic constipation though last bowel movement was yesterday morning. Denies fevers, chest pain, shortness of breath. Denies additional new complaints or new pain. (Key Menon) - Related Data Home Medications Medication Instructions Recorded Confirmed Aspirin 81 mg PO DAILY 01/14/14 08/15/24 DULoxetine HCL [Cymbalta] 60 mg PO DAILY 01/14/14 08/15/24 Pantoprazole Sodium [Protonix] 40 mg PO DAILY 06/13/18 08/15/24 amLODIPine [Norvasc] 5 mg PO DAILY 06/13/18 08/15/24 Albuterol Sulfate [Proair Hfa] 2 puff INHALATION RT-QID PRN 08/29/21 08/15/24 Tamsulosin [Flomax] 0.4 mg PO DAILY 08/29/21 08/15/24 Primidone [Mysoline] 25 mg PO HS 07/12/22 08/15/24 Escitalopram [Lexapro] 20 mg PO DAILY 03/23/23 08/15/24 Fluticasone/Umeclidin/Vilanter 1 puff INHALATION RT-DAILY 03/23/23 08/15/24 [Trelegy Ellipta 200-62.5-25] Clopidogrel [Plavix] 75 mg PO DAILY 05/29/24 08/15/24 Lactulose [Constulose] 20 gm PO Q48H PRN 05/29/24 08/15/24 Melatonin 10 mg PO HS 05/29/24 08/15/24 Multivitamins, Thera [Multivitamin 1 tab PO DAILY 05/29/24 08/15/24 (formulary)] Simethicone 180 mg PO DAILY 05/29/24 08/15/24 Previous Rx's Medication Instructions Recorded Atorvastatin [Lipitor] 80 mg PO DAILY #30 tab 07/20/20 Metoprolol Succinate (ER) [Toprol 25 mg PO DAILY #30 tab.er.24h 07/20/20 XL] Ipratropium-Albuterol Nebulize 3 ml INHALATION RT-QID 30 Days 04/21/23 [Duoneb 0.5 mg-3 mg/3 ml Soln] #120 each Ferrous Sulfate [Feosol] 325 mg PO DAILY 30 Days #30 tab 06/05/23 Nitroglycerin Sl Tabs [Nitrostat] 0.4 mg SUBLINGUAL Q5M PRN 30 Days 06/05/23 #25 tab ALPRAZolam [Xanax] 0.25 mg PO QID PRN 3 Days #12 tab 07/11/24 Gabapentin 600 mg PO TID 3 Days #9 tab 07/11/24 HYDROcodone/APAP 10-325MG [[place] 1 tab PO Q6HR 3 Days #12 tab 07/11/24 10-325] Lidocaine 4% Patch 1 patch TOPICAL DAILY patch 07/11/24 Miconazole 2% Cream [Monistat-Derm] 1 applic TOPICAL BID 14 Days #15 gm 09/19/24 Sulfamethox-Tmp 800-160Mg [Bactrim 1 each PO Q12HR #14 tab 09/19/24 DS 800-160 mg] Allergies Allergy/AdvReac Type Severity Reaction Status Date / Time azithromycin [From Zithromax] Allergy Rash/Hives Verified 09/19/24 05:00 Review of Systems ROS Other: All systems not noted in ROS Statement are negative. <Felix Goncalves - Last Filed: 09/19/24 07:41> ROS Other: All systems not noted in ROS Statement are negative. <Key Menon - Last Filed: 09/19/24 17:52> ROS Statement: Those systems with pertinent positive or pertinent negative responses have been documented in the HPI. 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 knee wound + FOR MRSA. History of high left above-knee amputation done approximately 2009. Last Myocardial Infarction Date:: 2003 History of Any Multi-Drug Resistant Organisms: Acinetobacter (MDRO), MRSA Date of last positivie culture/infection: 04/02/16 MDRO Source:: LT KNEE WOUND Past Surgical History: Heart Catheterization With Stent, Orthopedic Surgery Additional Past Surgical History / Comment(s): STENTS TO LEFT GROIN, LEFT ABOVE THE KNEE AMPUTATION, unsuccessful revascularization left leg, shoulder surgery, surgical debridement of necrotic tissue left scrotal area, LT AKA 03/03/16. left testicle removed. heart stent x1 broken left hip Past Anesthesia/Blood Transfusion Reactions: No Reported Reaction Date of Last Stent Placement:: 2006 Past Psychological History: Depression Smoking Status: Former smoker Past Alcohol Use History: None Reported Past Drug Use History: Marijuana - Past Family History Sister(s) History Unknown: Yes Family Medical History: Cancer Additional Family Medical History / Comment(s): double mastectomy, still surviving Father History Unknown: Yes Family Medical History: No Reported History Mother History Unknown: Yes Family Medical History: No Reported History Additional Family Medical History / Comment(s): hypoglycemia <Key Menon - Last Filed: 09/19/24 17:52> General Exam Limitations: no limitations <Key Menon - Last Filed: 09/19/24 17:52> - General Exam Comments Initial Comments: PE: CONSTITUTIONAL: No apparent distress, chronically ill appearing SKIN: Warm, dry, no jaundice, small area well circumscribed erythema left inqguinal fold consistent with candidal infection EYES: Pupils are equally round, extraocular movements intact without nystagmus, clear conjunctiva, non-icteric sclera HENT: Normocephalic, atraumatic, moist mucus membranes, oropharynx clear without exudates NECK: , Full range of motion, normal appearance PULMONARY: Decreased breath sounds in bilateral lung bases, otherwise clear to auscultation without wheezes, rhonchi, or rales, normal excursion, no accessory muscle use and no stridor CARDIOVASCULAR: Regular rate, rhythm, normal S1 and S2. No appreciated murmurs, rubs or gallops. Strong radial pulses with intact distal perfusion. No lower extremity edema GASTROINTESTINAL: Soft, active bowel sounds throughout, non-tender, non- distended, no palpable masses, no rebound or guarding. No hepatosplenomegaly, no CVA tenderness GENITOURINARY: exam performed with ARTURO Donald at bedside, this was performed after Grove catheter exchange, Grove catheter appears to be in place, no penile erythema or discharge, no testicular swelling MUSCULOSKELETAL: Extremities have no gross deformity, no edema, redness, or swelling. No calf swelling, left AKA NEUROLOGIC:_a/o x 3, GCS 15, normal mentation and speech. Moves all extremities x 4 without motor or sensory deficit PSYCHIATRIC:_normal mood and affect, thought process is clear and linear (Key Menon) Course Vital Signs 09/19/24 09/19/24 09/19/24 04:58 06:34 07:31 Temperature 97.5 F L 97.9 F Pulse Rate 70 80 74 Respiratory 18 18 18 Rate Blood Pressure 160/90 164/88 161/71 O2 Sat by Pulse 98 98 98 Oximetry 09/19/24 08:47 Temperature 98.7 F Pulse Rate 78 Respiratory 18 Rate Blood Pressure 124/76 O2 Sat by Pulse 98 Oximetry Medical Decision Making <Key Menon - Last Filed: 09/19/24 17:52> - Medical Decision Making Was pt. sent in by a medical professional or institution (, PA, WAITER AND CASHIER, urgent care, hospital, or residential...) When possible be specific @ -No Did you speak to anyone other than the patient for history (EMS, parent, family, police, friend...)? What history was obtained from this source @ -No Did you review nursing and triage notes (agree or disagree)? Why? @ -I reviewed and agree with nursing and triage notes Were old charts reviewed (outside hosp., previous admission, EMS record, old EKG, old radiological studies, urgent care reports/EKG's, residential records)? Report findings @ -Medical records reviewed Differential Diagnosis (chest pain, altered mental status, abdominal pain women, abdominal pain men, vaginal bleeding, weakness, fever, dyspnea, syncope, headache, dizziness, GI bleed, back pain, seizure, CVA, palpatations, mental health, musculoskeletal)? Differential diagnosis remains broad however top considerations include grove catheter displacement, obstruction with sediment or ureterolithiasis, enlarged prostate, UTI, constipation, this is not an all inclusive list EKG interpreted by me (3pts min.). @ -As above X-rays interpreted by me (1pt min.). @ -None done CT interpreted by me (1pt min.). @ -None done U/S interpreted by me (1pt. min.). @ -None done What testing was considered but not performed or refused? (CT, X-rays, U/S, labs)? Why? CT of the abdomen was considered however patient's pain and exam are consistent with urinary retention, pain did improve initially after Grove catheter replacement, changed from penile to suprapubic after grove was exchanged, pt denies additional GI symptoms, has benign, soft nontender abdominal exam What meds were considered but not given or refused? Why? @ -None Did you discuss the management of the patient with other professionals (professionals i.e. , PA, WAITER AND CASHIER, lab, RT, psych nurse, mental health social worker, banquet stewardess, teacher, air intelligence officer, high risk case manager)? Give summary @ -No Was smoking cessation discussed for >3mins.? @ -No Was critical care preformed (if so, how long)? @ -No Were there social determinants of health that impacted care today? How? (Homelessness, low income, unemployed, alcoholism, drug addiction, transportation, low edu. Level, literacy, decrease access to med. care, penitentiary, rehab)? @ -No Was there de-escalation of care discussed even if they declined (Discuss DNR or withdrawal of care, Hospice)? @ -No What co-morbidities impacted this encounter? (DM, HTN, Smoking, COPD, CAD, Cancer, CVA, ARF, Chemo, Hep., AIDS, mental health diagnosis, sleep apnea, morbid obesity)? @Chronic indwelling grove, left AKA Was patient admitted / discharged? Hospital course, mention meds given and route, prescriptions, significant lab abnormalities, going to OR and other pertinent info. @Discharged -this is a pleasant 74-year gentleman presenting today for urinary retention. Patient's bladder scan on arrival 350 cc urine in his bladder. Urine was noted to be leaking from around catheter by RN. Catheter was exchanged with drainage of about 300 cc of clear yellow urine. On my assessment patient is resting comfortably in no acute distress. He does state the pain in his penis has resolved, and initially did have improvement of pain after Grove catheter change however is not having suprapubic pain. Patient is afebrile without systemic symptoms. Exam showed small erythematous rash to left groin fold consistent with candidal infection. Patient states he does have antifungal ointment at home from prior candidal infections and was directed to restart use of this upon return home. Discussed with patient administering Tylenol, obtaining UA and reassessment. Patient agreeable plan of care. At this time my shift has come to a close and case was signed out to oncoming physician, Dr. Goncalves, pending UA results. Undiagnosed new problem with uncertain prognosis? @ -No Drug Therapy requiring intensive monitoring for toxicity (Heparin, Nitro, Insulin, Cardizem)? @ -No Were any procedures done? @ -No Diagnosis/symptom? @Tinea cruris, urinary retention Acute, or Chronic, or Acute on Chronic? @ -acute Uncomplicated (without systemic symptoms) or Complicated (systemic symptoms)? @ uncomplicated Side effects of treatment? @ -No Exacerbation, Progression, or Severe Exacerbation? @ -No Poses a threat to life or bodily function? How? (Chest pain, [place], [place], pneumonia, PE, COPD, DKA, ARF, appy, cholecystitis, CVA, Diverticulitis, Homicidal, Suicidal, threat to staff... and all critical care pts) @ -No (Key Menon) - Lab Data Lab Results 09/19/24 Range/Units 05:30 Urine Color Colorless Urine Appearance Cloudy (Clear) Urine pH 7.0 (5.0-8.0) Ur Specific [place] 1.014 (1.001-1.035) Urine Protein Negative (Negative) Urine Glucose (UA) Negative (Negative) Urine Ketones Negative (Negative) Urine Blood Trace H (Negative) Urine Nitrite Negative (Negative) Urine Bilirubin Negative (Negative) Urine Urobilinogen <2.0 (<2.0) mg/dL Ur Leukocyte Esterase Large H (Negative) Urine RBC 2 (0-5) /hpf Urine WBC 77 H (0-5) /hpf Urine Bacteria Rare H (None) /hpf Urine Mucus Rare H (None) /hpf Urine Yeast (Budding) Rare H (None) /hpf Disposition Time of Disposition: 07:42 <Felix Goncalves - Last Filed: 09/19/24 07:41> Is patient prescribed a controlled substance at d/c from ED?: No <Key - Last Filed: 09/19/24 17:52> Clinical Impression: Candidal skin infection, UTI (urinary tract infection) Disposition: HOME SELF-CARE Prescriptions: Sulfamethox-Tmp 800-160Mg [Bactrim DS 800-160 mg] 1 each PO Q12HR #14 tab Miconazole 2% Cream [Monistat-Derm] 1 applic TOPICAL BID 14 Days #15 gm Referrals: Fidencio Barrientos MD [Primary Care Provider] - 1-2 days
[2024-09-19] MEDS: ACETAMINOPHEN TAB 325 MG TAB PO STA (06:33)
[2024-09-19 07:23] LABS: Appearance,Urine Cloudy (Clear); Bacteria,Urine Rare /hpf; Bilirubin,Urine Negative (Negative); Blood,Urine Trace (Negative); Budding Yeast,Urine Rare /hpf; Color,Urine Colorless; Glucose,Urine (UA) Negative (Negative); Ketones,Urine Negative (Negative); Leukocyte Esterase,Urine Large (Negative); Mucus,Urine Rare /hpf; Nitrite,Urine Negative (Negative); Protein,Urine Negative (Negative); RBC,Urine 2 /hpf (0-5); Specific Gravity,Urine 1.014 (1.001-1.035); Urobilinogen,Urine <2.0 mg/dL (<2.0); WBC,Urine 77 /hpf (0-5)
[2024-09-19] MEDS: cefTRIAXone 1,000 MG VIAL (IM USE) IM STA (08:13)
[2024-09-19] MEDS: MICONAZOLE NITRATE 2% CREAM 14 GM TUBE TOPICAL SCH (08:17)
[2024-09-19] MEDS: cefTRIAXone IN SWFI 1,000 MG/10 ML SYRINGE IVP STA (08:18)
[2024-09-19 08:48] VITALS: BP 124/76; PULSE 78; TEMP 98.7
== END 2024-09-19 08:48 | disposition home or self-care (01) ==
LOC: EC 04:53
DX: N39.0 Urinary tract infection, site not specified (principal); B37.2 Candidiasis of skin and nail; B35.6 Tinea cruris; B96.89 Other specified bacterial agents as the cause of diseases classified elsewhere; Z87.891 Personal history of nicotine dependence; Z88.1 Allergy status to other antibiotic agents
CPT/HCPCS: 51798; 81001; 87086; 99284; 51702; 96372; J0696; 87077; 87186

== ENCOUNTER 2024-09-30 03:41 | Emergency (ER) | payer MEDICARE ==
--- NOTE | 2024-09-30 04:24 | ED ---
Male Urogenital HPI - General Chief complaint: Urogenital Stated complaint: urogenital Time Seen by Provider: 09/30/24 04:13 Source: patient, EMS, RN notes reviewed, old records reviewed Mode of arrival: EMS Limitations: no limitations - History of Present Illness Initial comments: This is a 74 male who states he has been unable to urinate. Patient is concern for Russo catheter clogged, patient has minimal abdominal pain. No other complaints MD Complaint: other (Inability to urinate) Location: penis Radiation: none Severity: mild Severity scale (1-10): 1 Improves with: none - Related Data Home Medications Medication Instructions Recorded Confirmed Aspirin 81 mg PO DAILY 01/14/14 08/15/24 DULoxetine HCL [Cymbalta] 60 mg PO DAILY 01/14/14 08/15/24 Pantoprazole Sodium [Protonix] 40 mg PO DAILY 06/13/18 08/15/24 amLODIPine [Norvasc] 5 mg PO DAILY 06/13/18 08/15/24 Albuterol Sulfate [Proair Hfa] 2 puff INHALATION RT-QID PRN 08/29/21 08/15/24 Tamsulosin [Flomax] 0.4 mg PO DAILY 08/29/21 08/15/24 Primidone [Mysoline] 25 mg PO HS 07/12/22 08/15/24 Escitalopram [Lexapro] 20 mg PO DAILY 03/23/23 08/15/24 Fluticasone/Umeclidin/Vilanter 1 puff INHALATION RT-DAILY 03/23/23 08/15/24 [Trelegy Ellipta 200-62.5-25] Clopidogrel [Plavix] 75 mg PO DAILY 05/29/24 08/15/24 Lactulose [Constulose] 20 gm PO Q48H PRN 05/29/24 08/15/24 Melatonin 10 mg PO HS 05/29/24 08/15/24 Multivitamins, Thera [Multivitamin 1 tab PO DAILY 05/29/24 08/15/24 (formulary)] Simethicone 180 mg PO DAILY 05/29/24 08/15/24 Previous Rx's Medication Instructions Recorded Atorvastatin [Lipitor] 80 mg PO DAILY #30 tab 07/20/20 Metoprolol Succinate (ER) [Toprol 25 mg PO DAILY #30 tab.er.24h 07/20/20 XL] Ipratropium-Albuterol Nebulize 3 ml INHALATION RT-QID 30 Days 04/21/23 [Duoneb 0.5 mg-3 mg/3 ml Soln] #120 each Ferrous Sulfate [Feosol] 325 mg PO DAILY 30 Days #30 tab 06/05/23 Nitroglycerin Sl Tabs [Nitrostat] 0.4 mg SUBLINGUAL Q5M PRN 30 Days 06/05/23 #25 tab ALPRAZolam [Xanax] 0.25 mg PO QID PRN 3 Days #12 tab 07/11/24 Gabapentin 600 mg PO TID 3 Days #9 tab 07/11/24 HYDROcodone/APAP 10-325MG [[place] 1 tab PO Q6HR 3 Days #12 tab 07/11/24 10-325] Lidocaine 4% Patch 1 patch TOPICAL DAILY patch 07/11/24 Miconazole 2% Cream [Monistat-Derm] 1 applic TOPICAL BID 14 Days #15 gm 09/19/24 Sulfamethox-Tmp 800-160Mg [Bactrim 1 each PO Q12HR #14 tab 09/19/24 DS 800-160 mg] Allergies Allergy/AdvReac Type Severity Reaction Status Date / Time azithromycin [From Zithromax] Allergy Rash/Hives Verified 09/30/24 03:50 Review of Systems ROS Statement: Those systems with pertinent positive or pertinent negative responses have been documented in the HPI. ROS Other: All systems not noted in ROS Statement are negative. 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 knee wound + FOR MRSA. History of high left above-knee amputation done approximately 2009. Last Myocardial Infarction Date:: 2003 History of Any Multi-Drug Resistant Organisms: Acinetobacter (MDRO), MRSA Date of last positivie culture/infection: 04/02/16 MDRO Source:: LT KNEE WOUND Past Surgical History: Heart Catheterization With Stent, Orthopedic Surgery Additional Past Surgical History / Comment(s): STENTS TO LEFT GROIN, LEFT ABOVE THE KNEE AMPUTATION, unsuccessful revascularization left leg, shoulder surgery, surgical debridement of necrotic tissue left scrotal area, LT AKA 03/03/16. left testicle removed. heart stent x1 broken left hip Past Anesthesia/Blood Transfusion Reactions: No Reported Reaction Date of Last Stent Placement:: 2006 Past Psychological History: Depression Smoking Status: Former smoker Past Alcohol Use History: None Reported Past Drug Use History: Marijuana - Past Family History Sister(s) History Unknown: Yes Family Medical History: Cancer Additional Family Medical History / Comment(s): double mastectomy, still surviving Father History Unknown: Yes Family Medical History: No Reported History Mother History Unknown: Yes Family Medical History: No Reported History Additional Family Medical History / Comment(s): hypoglycemia General Exam Limitations: no limitations General appearance: alert, in no apparent distress Head exam: Present: atraumatic, normocephalic, normal inspection Eye exam: Present: normal appearance, PERRL, EOMI. Absent: scleral icterus, conjunctival injection, periorbital swelling ENT exam: Present: normal exam, mucous membranes moist Neck exam: Present: normal inspection. Absent: tenderness, meningismus, lymphadenopathy Respiratory exam: Present: normal lung sounds bilaterally. Absent: respiratory distress, wheezes, rales, rhonchi, stridor Cardiovascular Exam: Present: regular rate, normal rhythm, normal heart sounds. Absent: systolic murmur, diastolic murmur, rubs, gallop, clicks GI/Abdominal exam: Present: soft, normal bowel sounds. Absent: distended, tenderness, guarding, rebound, rigid Extremities exam: Present: normal inspection, full ROM, normal capillary refill. Absent: tenderness, pedal edema, joint swelling, calf tenderness Back exam: Present: normal inspection Neurological exam: Present: alert, oriented X3, CN II-XII intact Psychiatric exam: Present: normal affect, normal mood Skin exam: Present: warm, dry, intact, normal color. Absent: rash Course Vital Signs 09/30/24 03:50 Temperature 97.3 F L Pulse Rate 63 Respiratory 18 Rate Blood Pressure 132/83 O2 Sat by Pulse 95 Oximetry - Reevaluation(s) Reevaluation #1: 09/30/24 05:17 Medical records reviewed Bladder scan shows no urine Patient given IV hydration Reevaluation #2: 09/30/24 05:18 Patient symptoms improved here in the ER Reevaluation #3: 09/30/24 05:18 Patient informed of results questions answered Reevaluation #4: Was pt. sent in by a medical professional or institution (, [facility], [facility], urgent care, hospital, or custodial...) When possible be specific @ -no Did you speak to anyone other than the patient for history (EMS, parent, family, police, friend...)? What history was obtained from this source @ -no Did you review nursing and triage notes (agree or disagree)? Why? @ -agree Are old charts reviewed (outside hosp., previous admission, EMS record, old EKG, old radiological studies, urgent care reports/EKG's, custodial records)? Report findings @ -yes Differential Diagnosis (chest pain, altered mental status, abdominal pain women, abdominal pain men, vaginal bleeding, weakness, fever, dyspnea, syncope, headache, dizziness, GI bleed, back pain, seizure, CVA, palpatations, mental health, musculoskeletal)? @ -prior EKG interpreted by me (3pts min.). @ -yes X-rays interpreted by me (1pt min.). @ -yes negative for acute disease CT interpreted by me (1pt min.). @ -no U/S interpreted by me (1pt. min.). @ -no What testing was considered but not performed or refused? (CT, X-rays, U/S, labs)? Why? @ -none What meds were considered but not given or refused? Why? @ -none Did you discuss the management of the patient with other professionals (professionals i.e. , [facility], [facility], lab, RT, psych nurse, social worker aide, supervisor reclamation, teacher, natural resource officer, case packer and sealer)? Give summary @ -no Was smoking cessation discussed for >3mins.? @ -no Was critical care preformed (if so, how long)? @ -no Were there social determinants of health that impacted care today? How? (Homelessness, low income, unemployed, alcoholism, drug addiction, transportation, low edu. Level, literacy, decrease access to med. care, care home, rehab)? @ -none Was there de-escalation of care discussed even if they declined (Discuss DNR or withdrawal of care, Hospice)? DNR status @ -no What co-morbidities impacted this encounter? (DM, HTN, Smoking, COPD, CAD, Cancer, CVA, ARF, Chemo, Hep., AIDS, mental health diagnosis, sleep apnea, morbid obesity)? @ -none Was patient admitted / discharged? Hospital course, mention meds given and route, prescriptions, significant lab abnormalities, going to OR and other pertinent info. @ - Undiagnosed new problem with uncertain prognosis? @ -no Drug Therapy requiring intensive monitoring for toxicity (Heparin, Nitro, Insulin, Cardizem)? @ -no Were any procedures done? @ -no Diagnosis/symptom? @ - Acute, or Chronic, or Acute on Chronic? @ -Acute Uncomplicated (without systemic symptoms) or Complicated (systemic symptoms)? @ -Complicated Side effects of treatment? @ -no Exacerbation, Progression, or Severe Exacerbation? @ -exacerbation Poses a threat to life or bodily function? How? (Chest pain, [place], MA, pneumonia, PE, COPD, DKA, ARF, appy, cholecystitis, CVA, Diverticulitis, Homicidal, Suicidal, threat to staff... and all critical care pts) @ -yes Medical Decision Making - Medical Decision Making 74 male to ER for dehydration patient given adequate hydration here in the ER and can be discharged Disposition Clinical Impression: Dehydration Disposition: HOME SELF-CARE Condition: Good Instructions (If sedation given, give patient instructions): Dehydration (ED) Is patient prescribed a controlled substance at d/c from ED?: No Referrals: Fidencio Barrientos MD [Primary Care Provider] - 1-2 days
[2024-09-30] MEDS: SODIUM CHLORIDE 0.9% 1,000 ML IV ONE ×2 (05:08→05:50)
[2024-09-30] MEDS: SODIUM CHLORIDE 0.9% 1,000 ML IV SCH (05:08)
[2024-09-30 05:50] LABS: Basophils # (A) 0.05 10*3/uL (0.00-0.10); Basophils % (A) 0.5 %; Eosinophils # (A) 0.39 10*3/uL (0.04-0.35); Eosinophils % (A) 4.1 %; HCT 34.2 % (39.6-50.0); HGB 10.7 g/dL (13.0-17.0); Lymphocytes # (A) 1.12 10*3/uL (0.90-5.00); Lymphocytes % (A) 11.7 %; MCHC 31.3 g/dL (32.0-37.0); Mean Platelet Volume 11.1 fL (9.5-12.2); Monocytes # (A) 0.66 10*3/uL (0.20-1.00); Monocytes % (A) 6.9 %; Neutrophils % (A) 76.4 %; Platelet Count 497 10*3/uL (140-440); RBC 4.28 10*6/uL (4.40-5.60); RDW 16.6 % (11.5-14.5); WBC 9.56 10*3/uL (4.50-10.00)
[2024-09-30 05:53] LABS: MCV 79.9 fL (80.0-97.0)
[2024-09-30 06:13] LABS: ALT 27 U/L (4-49); African American GFR (CKD) >90 (>60 ml/min/1.73 sqM); Albumin 3.3 g/dL (3.5-5.0); Anion Gap 7 mmol/L; Blood Urea Nitrogen 41 mg/dL (9-20); Calcium 8.8 mg/dL (8.4-10.2); Carbon Dioxide 24 mmol/L (22-30); Chloride 103 mmol/L (98-107); Glucose 99 mg/dL (74-99); Non-African American GFR(CKD) >90 (>60 ml/min/1.73 sqM); Sodium 134 mmol/L (137-145); Total Bilirubin 0.5 mg/dL (0.2-1.3); Total Protein 5.6 g/dL (6.3-8.2)
[2024-09-30 06:16] LABS: AST 39 U/L (17-59); Alkaline Phosphatase 69 U/L (38-126); Magnesium 2.1 mg/dL (1.6-2.3); Phosphorus 3.8 mg/dL (2.5-4.5); Potassium 5.4 mmol/L (3.5-5.1)
[2024-09-30 06:39] LABS: Appearance,Urine Cloudy (Clear); Bacteria,Urine Moderate /hpf; Bilirubin,Urine Negative (Negative); Blood,Urine Small (Negative); Color,Urine Colorless; Glucose,Urine (UA) Negative (Negative); Ketones,Urine Negative (Negative); Leukocyte Esterase,Urine Large (Negative); Mucus,Urine Rare /hpf; Nitrite,Urine Negative (Negative); Protein,Urine Negative (Negative); RBC,Urine 22 /hpf (0-5); Specific Gravity,Urine 1.009 (1.001-1.035); Urobilinogen,Urine <2.0 mg/dL (<2.0); WBC,Urine 109 /hpf (0-5)
[2024-09-30 09:21] VITALS: BP 166/79; PULSE 69; RESP 20; TEMP 98
== END 2024-09-30 09:21 | disposition home or self-care (01) ==
LOC: EC 03:41
DX: E86.0 Dehydration (principal); Z87.891 Personal history of nicotine dependence; Z88.1 Allergy status to other antibiotic agents
CPT/HCPCS: 51798; 36415; 80053; 83735; 84100; 85025; 81001; 99284; 96365; 96361; J0696